=== PATIENT | female | born 1975 | race American Indian/Alaskan Native ===

== ENCOUNTER 2018-02-08 16:20 | Inpatient (IN) | payer MEDICAID, OTHER, SELFPAY ==
[2018-02-08] VITALS (9 sets, daily range): BP systolic 90–112; BP diastolic 55–88; PULSE 110–126; RESP 16–22; TEMP 36.9–37.3; O2SAT 98–99; BMI 18.6
[2018-02-08 16:46] LABS: Add Manual Diff / Slide Review NO; Basophils Percent Auto 0.7 % (0-2); Eosinophils Percent Auto 2.1 % (2-4); Hematocrit 48.2 % (36-46); Hemoglobin 15.9 g/dL (12.0-16.0); Lymphocytes Percent Auto 20.8 % (25-40); Mean Corpuscular HGB Conc 32.9 % (30-36); Mean Corpuscular Hemoglobin 28.7 PG (26-34); Mean Corpuscular Volume 87.2 fL (80-100); Neutrophils Absolute Auto 11400 /uL (3000-5900); Neutrophils Percent Auto 71.4 % (50-75); Platelet Count 548 X10^3/uL (150-400); Red Blood Cell Count 5.53 X10^6/uL (4.0-5.2); Red Cell Distribution Width 14.8 % (11.6-14.8)
[2018-02-08 16:52] LABS: INR 0.9 (0.9-1.3); Prothrombin Time 9.7 SECONDS (10.1-12.7)
[2018-02-08] MEDS: SODIUM CHLORIDE 0.9% 1,000 ML 1000 ML IV ×2 (16:52→17:59)
[2018-02-08 16:56] LABS: Alanine Aminotransferase 35 IU/L (9-52); Albumin 3.2 g/dL (3.5-5.0); Albumin Globulin Ratio 1.3 (1.0-2.8); Alkaline Phosphatase 94 U/L (38-126); Aspartate Aminotransferase 28 IU/L (14-36); Bilirubin Total 0.4 mg/dL (0.2-1.3); Calcium 7.8 mg/dL (8.4-10.2); Estimated Glomerular Filt Rate > 60.0 mL/min (>60); Globulin 2.5 g/dL (1.7-4.1); HEMOLYSIS 28 (0-50); Potassium 3.9 mmol/L (3.4-5.1); Sodium 133 mmol/L (137-145); Total Protein 5.7 g/dL (6.3-8.2)
[2018-02-08 17:00] LABS: Ketones (Beta-Hydroxybutyrate) 0.17 mmol/L (<0.27)
[2018-02-08 17:02] LABS: Lipase < 10 U/L (23-300)
[2018-02-08 17:05] LABS: Glucose 522 mg/dL (70-100)
--- NOTE | 2018-02-08 17:23 | ED.ABDPAIN ---
HPI - Abdominal Pain <Yareli De La Torre MD - Last Filed: 02/09/18 07:29> General Chief Complaint: Abdominal Pain Stated Complaint: Abd cramping,possible DKA Time Seen by Provider: 02/08/18 16:22 History of Present Illness HPI narrative: 42 F type I DM sent from [facility] for hyperglycemia. Patient was seen for diarrhea, nausea, and vomiting for last few days and found to be reading High on glucometer. Patient reports no fever/chills, and reports signficant non bloody diarrhea. Reports abdominal cramping. No dysuria. Patient is frequently seen in ED. Related Data Home Medications Medication Instructions Recorded Confirmed omeprazole 20 mg PO QDAY #0 10/09/12 02/08/18 bupropion HCl [Wellbutrin SR] 150 mg PO BID #0 09/13/16 02/08/18 ondansetron [Zofran ODT] 4 mg SUBLINGUAL Q4HP PRN 02/08/18 02/08/18 Previous Rx's Medication Instructions Recorded insulin glargine [Lantus U-100 35 u SQ QDAY #30 d 08/21/17 Insulin] insulin glargine [Lantus U-] 30 unit SUBCUT DAILY #10 ml 01/24/18 Allergies Allergy/AdvReac Type Severity Reaction Status Date / Time sulfasalazine [SULFASALAZINE] Allergy Mild PANCREATITI Verified 02/08/18 16:35 S trazodone AdvReac Intermediate HEART Verified 02/08/18 16:35 PALPITATIONS Review of Systems <Yareli De La Torre MD - Last Filed: 02/09/18 07:29> Constitutional Denies chills, Denies fever(s), Denies lethargy and Denies weakness Cardiovascular Denies chest pain, Denies irregular heart rhythm, Denies lightheadedness, Denies palpitations, Denies dyspnea, Denies dyspnea on exertion and Denies orthopnea Respiratory Denies cough, Denies dyspnea, Denies dyspnea on exertion and Denies wheezing Gastrointestinal Gastrointestinal: Reports bloating, Reports cramping, Reports diarrhea, Reports nausea and Reports vomiting Genitourinary Denies hematuria, Denies flank pain, Denies urinary incontinence and Denies urinary urgency Neurologic Denies weakness Endocrine Reports polyuria and Denies palpitations Allergic/Immunologic Denies wheezing Exam <Yareli De La Torre MD - Last Filed: 02/09/18 07:29> Initial Vital Signs Initial Vital Signs: Vital Signs Temperature 98.6 F 02/08/18 16:32 Pulse Rate 125 H 02/08/18 16:32 Respiratory Rate 19 02/08/18 16:32 Blood Pressure 103/88 H 02/08/18 16:32 Pulse Oximetry 99 02/08/18 16:32 Const General: cooperative and well developed Nutritional Appearance: well nourished Orientation: alert, awake, oriented x3 and not confused Chest Chest: normal inspection of the chest Resp Effort & Inspection: normal respiratory effort, able to speak in complete sentences, no respiratory distress and no use of accessory muscles Auscultation: clear to auscultation bilaterally, no rales, no rhonchi and no wheezes Cardio Rate: regular rate Rhythm: regular rhythm Heart Sounds: no click, no gallops, no murmurs and no rubs Pulses: normal peripheral pulses GI Inspection: distended Palpation: soft, no hepatosplenomegaly, guarding, No pulsatile mass and tender Auscultation: abnormal bowel sounds Skin General: no rashes or lesions noted, No jaundice and No petechiae Neuro General: alert, oriented x3, gait normal and no focal motor deficits Speech: speech normal Extrem General: full ROM, no clubbing, cyanosis or edema, no pedal edema and no calf tenderness <Stephane Borden DO - Last Filed: 02/08/18 19:48> Initial Vital Signs Initial Vital Signs: Vital Signs Temperature 98.6 F 02/08/18 16:32 Pulse Rate 125 H 02/08/18 16:32 Respiratory Rate 19 02/08/18 16:32 Blood Pressure 103/88 H 02/08/18 16:32 Pulse Oximetry 99 02/08/18 16:32 Course <Yareli De La Torre MD - Last Filed: 02/09/18 07:29> Orders Ordered: ED Orders 02/09/18 04:30 Urinalysis and Microscopic Stat 02/09/18 04:40 Urine Culture Stat Dextrose (D50w) 25 gm IV PRN PRN; Protocol PRN Reason: Hypoglycemia Hydromorphone HCl (Dilaudid) 0.5 mg IV Q2H PRN PRN Reason: Pain, Severe Last Admin: 02/09/18 05:40 Dose: 0.5 mg Admin: 02/09/18 01:52 Dose: 0.5 mg Admin: 02/08/18 22:57 Dose: 0.5 mg Hydromorphone HCl (Dilaudid) 1 mg IV Q2HR PRN PRN Reason: Pain, Moderate Sodium Chloride (Normal Saline 0.45%) 1,000 mls @ 85 mls/hr IV CONT JOSE ANTONIO Last Admin: 02/08/18 22:57 Dose: 85 mls/hr Piperacillin/Tazobactam/Dextrose (Zosyn) 3.375 gm in 50 mls @ 100 mls/hr IV Q6H [facility] Last Infusion: 02/09/18 03:05 Dose: 0 mls/hr Admin: 02/09/18 02:16 Dose: 100 mls/hr Insulin Aspart (Novolog Flexpen) 0 unit SUBCUT ACHS [facility]; Protocol Ondansetron HCl (Zofran) 4 mg IV Q4HR PRN PRN Reason: Nausea And Vomiting Discontinued Medications Hydromorphone HCl (Dilaudid) 1 mg IV NOW ONE Stop: 02/08/18 19:42 Last Admin: 02/08/18 20:11 Dose: Hydromorphone HCl (Dilaudid) 1 mg IV NOW JOSE ANTONIO Stop: 02/08/18 20:16 Last Admin: 02/08/18 22:17 Dose: Admin: 02/08/18 20:11 Dose: 1 mg Sodium Chloride (Normal Saline 0.9%) 1,000 mls @ 1,000 mls/hr IV BOLUS ONE Stop: 02/08/18 17:18 Last Infusion: 02/08/18 17:59 Dose: 0 mls/hr Admin: 02/08/18 16:52 Dose: 1,000 mls/hr Sodium Chloride (Normal Saline 0.9%) 1,000 mls @ 1,000 mls/hr IV BOLUS ONE Stop: 02/08/18 17:31 Last Infusion: 02/08/18 20:48 Dose: 0 mls/hr Admin: 02/08/18 17:59 Dose: 1,000 mls/hr Sodium Chloride (Normal Saline 0.9%) 1,000 mls @ 1,000 mls/hr IV BOLUS ONE Stop: 02/08/18 18:18 Last Admin: 02/08/18 22:17 Dose: Piperacillin/Tazobactam/Dextrose (Zosyn) 4.5 gm in 100 mls @ 200 mls/hr IV NOW ONE Stop: 02/08/18 18:35 Last Infusion: 02/08/18 20:09 Dose: 0 mls/hr Admin: 02/08/18 18:33 Dose: 200 mls/hr Insulin Human Regular (Humulin R) 12 unit SUBCUT NOW ONE Stop: 02/08/18 17:19 Last Admin: 02/08/18 17:57 Dose: 12 unit Vital Signs - 8 hr 02/08/18 23:35 02/09/18 06:15 Temperature 99.1 F 97.8 F Pulse Rate 115 H 88 Respiratory Rate 18 18 Blood Pressure 102/55 L 92/63 <Stephane Borden DO - Last Filed: 02/08/18 19:48> Orders Ordered: ED Orders 02/09/18 04:30 Urinalysis and Microscopic Stat 02/09/18 04:40 Urine Culture Stat Dextrose (D50w) 25 gm IV PRN PRN; Protocol PRN Reason: Hypoglycemia Hydromorphone HCl (Dilaudid) 0.5 mg IV Q2H PRN PRN Reason: Pain, Severe Last Admin: 02/09/18 05:40 Dose: 0.5 mg Admin: 02/09/18 01:52 Dose: 0.5 mg Admin: 02/08/18 22:57 Dose: 0.5 mg Hydromorphone HCl (Dilaudid) 1 mg IV Q2HR PRN PRN Reason: Pain, Moderate Sodium Chloride (Normal Saline 0.45%) 1,000 mls @ 85 mls/hr IV CONT JOSE ANTONIO Last Admin: 02/08/18 22:57 Dose: 85 mls/hr Piperacillin/Tazobactam/Dextrose (Zosyn) 3.375 gm in 50 mls @ 100 mls/hr IV Q6H JOSE ANTONIO Last Infusion: 02/09/18 03:05 Dose: 0 mls/hr Admin: 02/09/18 02:16 Dose: 100 mls/hr Insulin Aspart (Novolog Flexpen) 0 unit SUBCUT ACHS JOSE ANTONIO; Protocol Ondansetron HCl (Zofran) 4 mg IV Q4HR PRN PRN Reason: Nausea And Vomiting Discontinued Medications Hydromorphone HCl (Dilaudid) 1 mg IV NOW ONE Stop: 02/08/18 19:42 Last Admin: 02/08/18 20:11 Dose: Hydromorphone HCl (Dilaudid) 1 mg IV NOW JOSE ANTONIO Stop: 02/08/18 20:16 Last Admin: 02/08/18 22:17 Dose: Admin: 02/08/18 20:11 Dose: 1 mg Sodium Chloride (Normal Saline 0.9%) 1,000 mls @ 1,000 mls/hr IV BOLUS ONE Stop: 02/08/18 17:18 Last Infusion: 02/08/18 17:59 Dose: 0 mls/hr Admin: 02/08/18 16:52 Dose: 1,000 mls/hr Sodium Chloride (Normal Saline 0.9%) 1,000 mls @ 1,000 mls/hr IV BOLUS ONE Stop: 02/08/18 17:31 Last Infusion: 02/08/18 20:48 Dose: 0 mls/hr Admin: 02/08/18 17:59 Dose: 1,000 mls/hr Sodium Chloride (Normal Saline 0.9%) 1,000 mls @ 1,000 mls/hr IV BOLUS ONE Stop: 02/08/18 18:18 Last Admin: 02/08/18 22:17 Dose: Piperacillin/Tazobactam/Dextrose (Zosyn) 4.5 gm in 100 mls @ 200 mls/hr IV NOW ONE Stop: 02/08/18 18:35 Last Infusion: 02/08/18 20:09 Dose: 0 mls/hr Admin: 02/08/18 18:33 Dose: 200 mls/hr Insulin Human Regular (Humulin R) 12 unit SUBCUT NOW ONE Stop: 02/08/18 17:19 Last Admin: 02/08/18 17:57 Dose: 12 unit Consultations Consultation #1: Dr. Grossman (Gen. Surg) consulted regarding CT findings and will follow as needed but recommends medical admission and antibiotics. Time: 18:22 Consultation #2: Dr. Tan (Hospitalist) is happy to accept patient on his service Time: 19:47 Vital Signs - 8 hr 02/08/18 23:35 02/09/18 06:15 Temperature 99.1 F 97.8 F Pulse Rate 115 H 88 Respiratory Rate 18 18 Blood Pressure 102/55 L 92/63 MDM - Abdominal Pain <Kirpal Wil, MD - Last Filed: 02/09/18 07:29> Differential Diagnosis Differential diagnosis: Likely abdominal pain, diverticulitis, gastroenteritis, pancreatitis and small bowel obstruction Medical Records Attestation: I reviewed the patient's medical records. Lab Data Attestation: I reviewed the patient's lab results. Result diagrams: 02/08/18 16:00 02/08/18 16:00 Lab Results 02/08/18 02/08/18 02/08/18 Range/Units 16:00 16:00 16:00 WBC 16.0 H (4.5-11.0) X10^3/uL RBC 5.53 H (4.0-5.2) X10^6/uL Hgb 15.9 (12.0-16.0) g/dL Hct 48.2 H (36-46) % MCV 87.2 (80-100) fL MCH 28.7 (26-34) PG MCHC 32.9 (30-36) % RDW 14.8 (11.6-14.8) % Plt Count 548 H (150-400) X10^3/uL Neut % (Auto) 71.4 (50-75) % Lymph % (Auto) 20.8 L (25-40) % [place] % (Auto) 5.0 (3-14) % Eos % (Auto) 2.1 (2-4) % Baso % (Auto) 0.7 (0-2) % Neut # (Auto) 52797 H (2846-6233) /uL PT 9.7 L (10.1-12.7) SECONDS INR 0.9 (0.9-1.3) VBG pH VBG pCO2 VBG pO2 VBG HCO3 VBG Total CO2 VBG O2 Saturation VBG Base Excess Sodium 133 L (137-145) mmol/L Potassium 3.9 (3.4-5.1) mmol/L Chloride 99.0 (98-107) mmol/L Carbon Dioxide 21.0 L (22-32) mmol/L BUN 9.0 (7-17) mg/dL Creatinine 0.60 (0.52-1.04) mg/dL Estimated GFR > 60.0 (>60) mL/min BUN/Creatinine Ratio 15.0 (6-22) Glucose 522 H* (70-100) mg/dL Lactate (0.7-2.1) mmol/L Calcium 7.8 L (8.4-10.2) mg/dL Total Bilirubin 0.4 (0.2-1.3) mg/dL AST 28 (14-36) IU/L ALT 35 (9-52) IU/L Alkaline Phosphatase 94 (38-126) U/L Total Protein 5.7 L (6.3-8.2) g/dL Albumin 3.2 L (3.5-5.0) g/dL Globulin 2.5 (1.7-4.1) g/dL Albumin/Globulin Ratio 1.3 (1.0-2.8) Lipase < 10 L (23-300) U/L Procalcitonin (<0.5) ng/mL Urine Color Urine Appearance Urine pH (4.5-8.0) Ur Specific Pablo (1.000-1.035) Urine Protein (Negative) Urine Glucose (UA) (Negative) g/dL Urine Ketones (NEGATIVE) Urine Occult Blood (Negative) Urine Nitrate (NEGATIVE) Urine Bilirubin (NEGATIVE) Urine Urobilinogen (0.2) E.U./dL Ur Leukocyte Esterase (NEGATIVE) Urine RBC (0-5/HPF) Urine WBC (0-5/HPF) Ur Squamous Epith Cells Amorphous Sediment Urine Bacteria (None) Urine Yeast (None) Ur Culture Indicated? Micro UA Comment Ketones 0.17 (<0.27) mmol/L 02/08/18 02/08/18 02/08/18 Range/Units 16:19 16:35 18:20 WBC (4.5-11.0) X10^3/uL RBC (4.0-5.2) X10^6/uL Hgb (12.0-16.0) g/dL Hct (36-46) % MCV (80-100) fL MCH (26-34) PG MCHC (30-36) % RDW (11.6-14.8) % Plt Count (150-400) X10^3/uL Neut % (Auto) (50-75) % Lymph % (Auto) (25-40) % [place] % (Auto) (3-14) % Eos % (Auto) (2-4) % Baso % (Auto) (0-2) % Neut # (Auto) (0752-6519) /uL PT (10.1-12.7) SECONDS INR (0.9-1.3) VBG pH Cancelled 7.51 H VBG pCO2 Cancelled VBG pO2 Cancelled VBG HCO3 Cancelled VBG Total CO2 Cancelled VBG O2 Saturation Cancelled VBG Base Excess Cancelled Sodium (137-145) mmol/L Potassium (3.4-5.1) mmol/L Chloride (98-107) mmol/L Carbon Dioxide (22-32) mmol/L BUN (7-17) mg/dL Creatinine (0.52-1.04) mg/dL Estimated GFR (>60) mL/min BUN/Creatinine Ratio (6-22) Glucose (70-100) mg/dL Lactate 1.6 (0.7-2.1) mmol/L Calcium (8.4-10.2) mg/dL Total Bilirubin (0.2-1.3) mg/dL AST (14-36) IU/L ALT (9-52) IU/L Alkaline Phosphatase (38-126) U/L Total Protein (6.3-8.2) g/dL Albumin (3.5-5.0) g/dL Globulin (1.7-4.1) g/dL Albumin/Globulin Ratio (1.0-2.8) Lipase (23-300) U/L Procalcitonin (<0.5) ng/mL Urine Color Urine Appearance Urine pH (4.5-8.0) Ur Specific Pablo (1.000-1.035) Urine Protein (Negative) Urine Glucose (UA) (Negative) g/dL Urine Ketones (NEGATIVE) Urine Occult Blood (Negative) Urine Nitrate (NEGATIVE) Urine Bilirubin (NEGATIVE) Urine Urobilinogen (0.2) E.U./dL Ur Leukocyte Esterase (NEGATIVE) Urine RBC (0-5/HPF) Urine WBC (0-5/HPF) Ur Squamous Epith Cells Amorphous Sediment Urine Bacteria (None) Urine Yeast (None) Ur Culture Indicated? Micro UA Comment Ketones (<0.27) mmol/L 02/08/18 02/09/18 Range/Units 18:42 04:40 WBC (4.5-11.0) X10^3/uL RBC (4.0-5.2) X10^6/uL Hgb (12.0-16.0) g/dL Hct (36-46) % MCV (80-100) fL MCH (26-34) PG MCHC (30-36) % RDW (11.6-14.8) % Plt Count (150-400) X10^3/uL Neut % (Auto) (50-75) % Lymph % (Auto) (25-40) % [place] % (Auto) (3-14) % Eos % (Auto) (2-4) % Baso % (Auto) (0-2) % Neut # (Auto) (3467-0137) /uL PT (10.1-12.7) SECONDS INR (0.9-1.3) VBG pH VBG pCO2 VBG pO2 VBG HCO3 VBG Total CO2 VBG O2 Saturation VBG Base Excess Sodium (137-145) mmol/L Potassium (3.4-5.1) mmol/L Chloride (98-107) mmol/L Carbon Dioxide (22-32) mmol/L BUN (7-17) mg/dL Creatinine (0.52-1.04) mg/dL Estimated GFR (>60) mL/min BUN/Creatinine Ratio (6-22) Glucose (70-100) mg/dL Lactate (0.7-2.1) mmol/L Calcium (8.4-10.2) mg/dL Total Bilirubin (0.2-1.3) mg/dL AST (14-36) IU/L ALT (9-52) IU/L Alkaline Phosphatase (38-126) U/L Total Protein (6.3-8.2) g/dL Albumin (3.5-5.0) g/dL Globulin (1.7-4.1) g/dL Albumin/Globulin Ratio (1.0-2.8) Lipase (23-300) U/L Procalcitonin < 0.05 (<0.5) ng/mL Urine Color Yellow Urine Appearance Cloudy Urine pH 6.5 (4.5-8.0) Ur Specific Pablo <=1.005 (1.000-1.035) Urine Protein Negative (Negative) Urine Glucose (UA) 2+ H (Negative) g/dL Urine Ketones Negative (NEGATIVE) Urine Occult Blood Trace-intact (Negative) Urine Nitrate Negative (NEGATIVE) Urine Bilirubin Negative (NEGATIVE) Urine Urobilinogen 0.2 (0.2) E.U./dL Ur Leukocyte Esterase Trace H (NEGATIVE) Urine RBC 0-1/hpf (0-5/HPF) Urine WBC 1-5/hpf (0-5/HPF) Ur Squamous Epith Cells 0-1 /hpf Amorphous Sediment 1+ Urine Bacteria Many (>30) H (None) Urine Yeast 0-1/hpf (None) Ur Culture Indicated? Specimen cultured Micro UA Comment Not Reportable Ketones (<0.27) mmol/L ECG Data Interpretation: Sinus Tachycardia HR [address] elevation No Tw abnormality Normal intervals. MDM Narrative Medical decision making narrative: Patient with hyperglycemia, alkakosis - NO DKA. Treat with fluid boluses and Subcutaneous insulin 12units Other lab abnormalities may be hemoconcentration, but in setting of bowel infection; may require antibiotics. Pending CT abd/pelvis w/contrast. After CT reviewed; patient has significant terminal ileitis with free fluid in the abdomen. Zosyn IV started. Paged Dr. Grossman, Gen surg. Case discussed and she recommended medicine admit for IV abx unless lactate returns high; then she would like a return call. Case discussed with Dr. Borden. Will follow up remaining labs, and final disposition. <Stephane Borden, - Last Filed: 02/08/18 19:48> Medical Records Attestation: I reviewed the patient's medical records. Lab Data Attestation: I reviewed the patient's lab results. Lab Results 02/08/18 02/08/18 02/08/18 Range/Units 16:00 16:00 16:00 WBC 16.0 H (4.5-11.0) X10^3/uL RBC 5.53 H (4.0-5.2) X10^6/uL Hgb 15.9 (12.0-16.0) g/dL Hct 48.2 H (36-46) % MCV 87.2 (80-100) fL MCH 28.7 (26-34) PG MCHC 32.9 (30-36) % RDW 14.8 (11.6-14.8) % Plt Count 548 H (150-400) X10^3/uL Neut % (Auto) 71.4 (50-75) % Lymph % (Auto) 20.8 L (25-40) % [place] % (Auto) 5.0 (3-14) % Eos % (Auto) 2.1 (2-4) % Baso % (Auto) 0.7 (0-2) % Neut # (Auto) 59389 H (4479-3220) /uL PT 9.7 L (10.1-12.7) SECONDS INR 0.9 (0.9-1.3) VBG pH VBG pCO2 VBG pO2 VBG HCO3 VBG Total CO2 VBG O2 Saturation VBG Base Excess Sodium 133 L (137-145) mmol/L Potassium 3.9 (3.4-5.1) mmol/L Chloride 99.0 (98-107) mmol/L Carbon Dioxide 21.0 L (22-32) mmol/L BUN 9.0 (7-17) mg/dL Creatinine 0.60 (0.52-1.04) mg/dL Estimated GFR > 60.0 (>60) mL/min BUN/Creatinine Ratio 15.0 (6-22) Glucose 522 H* (70-100) mg/dL Lactate (0.7-2.1) mmol/L Calcium 7.8 L (8.4-10.2) mg/dL Total Bilirubin 0.4 (0.2-1.3) mg/dL AST 28 (14-36) IU/L ALT 35 (9-52) IU/L Alkaline Phosphatase 94 (38-126) U/L Total Protein 5.7 L (6.3-8.2) g/dL Albumin 3.2 L (3.5-5.0) g/dL Globulin 2.5 (1.7-4.1) g/dL Albumin/Globulin Ratio 1.3 (1.0-2.8) Lipase < 10 L (23-300) U/L Procalcitonin (<0.5) ng/mL Urine Color Urine Appearance Urine pH (4.5-8.0) Ur Specific Pablo (1.000-1.035) Urine Protein (Negative) Urine Glucose (UA) (Negative) g/dL Urine Ketones (NEGATIVE) Urine Occult Blood (Negative) Urine Nitrate (NEGATIVE) Urine Bilirubin (NEGATIVE) Urine Urobilinogen (0.2) E.U./dL Ur Leukocyte Esterase (NEGATIVE) Urine RBC (0-5/HPF) Urine WBC (0-5/HPF) Ur Squamous Epith Cells Amorphous Sediment Urine Bacteria (None) Urine Yeast (None) Ur Culture Indicated? Micro UA Comment Ketones 0.17 (<0.27) mmol/L 02/08/18 02/08/18 02/08/18 Range/Units 16:19 16:35 18:20 WBC (4.5-11.0) X10^3/uL RBC (4.0-5.2) X10^6/uL Hgb (12.0-16.0) g/dL Hct (36-46) % MCV (80-100) fL MCH (26-34) PG MCHC (30-36) % RDW (11.6-14.8) % Plt Count (150-400) X10^3/uL Neut % (Auto) (50-75) % Lymph % (Auto) (25-40) % [place] % (Auto) (3-14) % Eos % (Auto) (2-4) % Baso % (Auto) (0-2) % Neut # (Auto) (9392-7324) /uL PT (10.1-12.7) SECONDS INR (0.9-1.3) VBG pH Cancelled 7.51 H VBG pCO2 Cancelled VBG pO2 Cancelled VBG HCO3 Cancelled VBG Total CO2 Cancelled VBG O2 Saturation Cancelled VBG Base Excess Cancelled Sodium (137-145) mmol/L Potassium (3.4-5.1) mmol/L Chloride (98-107) mmol/L Carbon Dioxide (22-32) mmol/L BUN (7-17) mg/dL Creatinine (0.52-1.04) mg/dL Estimated GFR (>60) mL/min BUN/Creatinine Ratio (6-22) Glucose (70-100) mg/dL Lactate 1.6 (0.7-2.1) mmol/L Calcium (8.4-10.2) mg/dL Total Bilirubin (0.2-1.3) mg/dL AST (14-36) IU/L ALT (9-52) IU/L Alkaline Phosphatase (38-126) U/L Total Protein (6.3-8.2) g/dL Albumin (3.5-5.0) g/dL Globulin (1.7-4.1) g/dL Albumin/Globulin Ratio (1.0-2.8) Lipase (23-300) U/L Procalcitonin (<0.5) ng/mL Urine Color Urine Appearance Urine pH (4.5-8.0) Ur Specific Pablo (1.000-1.035) Urine Protein (Negative) Urine Glucose (UA) (Negative) g/dL Urine Ketones (NEGATIVE) Urine Occult Blood (Negative) Urine Nitrate (NEGATIVE) Urine Bilirubin (NEGATIVE) Urine Urobilinogen (0.2) E.U./dL Ur Leukocyte Esterase (NEGATIVE) Urine RBC (0-5/HPF) Urine WBC (0-5/HPF) Ur Squamous Epith Cells Amorphous Sediment Urine Bacteria (None) Urine Yeast (None) Ur Culture Indicated? Micro UA Comment Ketones (<0.27) mmol/L 02/08/18 02/09/18 Range/Units 18:42 04:40 WBC (4.5-11.0) X10^3/uL RBC (4.0-5.2) X10^6/uL Hgb (12.0-16.0) g/dL Hct (36-46) % MCV (80-100) fL MCH (26-34) PG MCHC (30-36) % RDW (11.6-14.8) % Plt Count (150-400) X10^3/uL Neut % (Auto) (50-75) % Lymph % (Auto) (25-40) % [place] % (Auto) (3-14) % Eos % (Auto) (2-4) % Baso % (Auto) (0-2) % Neut # (Auto) (7610-2771) /uL PT (10.1-12.7) SECONDS INR (0.9-1.3) VBG pH VBG pCO2 VBG pO2 VBG HCO3 VBG Total CO2 VBG O2 Saturation VBG Base Excess Sodium (137-145) mmol/L Potassium (3.4-5.1) mmol/L Chloride (98-107) mmol/L Carbon Dioxide (22-32) mmol/L BUN (7-17) mg/dL Creatinine (0.52-1.04) mg/dL Estimated GFR (>60) mL/min BUN/Creatinine Ratio (6-22) Glucose (70-100) mg/dL Lactate (0.7-2.1) mmol/L Calcium (8.4-10.2) mg/dL Total Bilirubin (0.2-1.3) mg/dL AST (14-36) IU/L ALT (9-52) IU/L Alkaline Phosphatase (38-126) U/L Total Protein (6.3-8.2) g/dL Albumin (3.5-5.0) g/dL Globulin (1.7-4.1) g/dL Albumin/Globulin Ratio (1.0-2.8) Lipase (23-300) U/L Procalcitonin < 0.05 (<0.5) ng/mL Urine Color Yellow Urine Appearance Cloudy Urine pH 6.5 (4.5-8.0) Ur Specific Pablo <=1.005 (1.000-1.035) Urine Protein Negative (Negative) Urine Glucose (UA) 2+ H (Negative) g/dL Urine Ketones Negative (NEGATIVE) Urine Occult Blood Trace-intact (Negative) Urine Nitrate Negative (NEGATIVE) Urine Bilirubin Negative (NEGATIVE) Urine Urobilinogen 0.2 (0.2) E.U./dL Ur Leukocyte Esterase Trace H (NEGATIVE) Urine RBC 0-1/hpf (0-5/HPF) Urine WBC 1-5/hpf (0-5/HPF) Ur Squamous Epith Cells 0-1 /hpf Amorphous Sediment 1+ Urine Bacteria Many (>30) H (None) Urine Yeast 0-1/hpf (None) Ur Culture Indicated? Specimen cultured Micro UA Comment Not Reportable Ketones (<0.27) mmol/L Discharge Plan Departure Patient Disposition: Admitted As Inpatient Clinical Impression: Acute hyperglycemia, Ileitis Discharge Date/Time: 02/08/18 20:31 Interventions: ED Discharge Assessment Last Done: 02/08/18 20:29 Admit Date/Time: 02/08/18 20:14 Admit Provider: Valerio Tan
--- NOTE | 2018-02-08 17:24 | DI.CT.S_ITS ---
PROCEDURE: CT ABDOMEN PELVIS W CON INDICATIONS: Generalized abd tenderness TECHNIQUE: After the administration of oral and intravenous contrast, 5 mm thick sections acquired from the diaphragms to the symphysis. 5 mm thick coronal and sagittal reformats were performed. For radiation dose reduction, the following was used: automated exposure control, adjustment of mA and/or kV according to patient size. COMPARISON: [facility], CT, ABDOMEN/PELVIS WITH CONTRAST, 05/09/2009, 17:34. FINDINGS: Image quality: Excellent. ABDOMEN: Lung bases: There is mild dependent atelectasis bilaterally. Heart size is normal. There is mild concentric wall thickening of the visualized distal esophagus compatible with a mild esophagitis. Solid organs: No focal hepatic lesions. The gallbladder is distended without calcified gallstones or wall thickening. Biliary system is non-dilated. Spleen is normal in size and enhancement. No adrenal nodules. Kidneys demonstrate no hydronephrosis. There are multiple coarse calcifications within the pancreatic head and uncinate process with diffuse pancreatic atrophy. There is mild dilatation of the pancreatic duct in the head and uncinate process. The findings are compatible with sequela of chronic pancreatitis. Peritoneum and bowel: There is severe segmental wall thickening with submucosal edema involving the distal ileum extending through the ileocecal junction. No definite evidence of pneumatosis. There are additional segments of mild small bowel wall thickening proximally. No abnormal dilatation to suggest obstruction. There is moderate gaseous distention of the colon distally and mild segmental wall thickening in the rectum. A moderate to large amount of free fluid is demonstrated throughout the abdomen and pelvis with slight peritoneal enhancement suggestive of peritonitis. No free air. Nodes and vessels: No retroperitoneal or mesenteric adenopathy. Aorta and inferior vena cava are normal in caliber. Miscellaneous: No ventral hernias. PELVIS: Genitourinary: There is mild concentric bladder wall thickening. Miscellaneous: No inguinal hernias or adenopathy. Bones: No suspicious bony lesions. No vertebral body compression fractures. IMPRESSION: 1. Severe segmental wall thickening of the distal ileum as well as mild wall thickening in the proximal small bowel. The findings are consistent with a nonspecific enteritis which may be due to infectious etiologies such as Yersinia or inflammatory processes such as Crohn's disease. No evidence of associated bowel obstruction. The differential includes ischemic bowel but there is no evidence of pneumatosis or portal venous gas. 2. Moderate to large amount of intraperitoneal free fluid with mild peritoneal enhancement suggestive of peritonitis. 3. Moderate distention of the colon distally with mild segmental wall thickening in the rectum compatible with a mild colitis. 4. Sequelae of chronic pancreatitis atrophic appearance of the distal pancreas. Findings discussed with Dr. De La Torre on 02/08/18 at 6:05 PM. Dictated by: Terry Gomez M.D. on 02/08/2018 at 17:59 Approved by: Terry Gomez M.D. on 02/08/2018 at 18:09
[2018-02-08 17:25] LABS: pH VBG 7.51 (7.31-7.41)
[2018-02-08] MEDS: INSULIN REGULAR 100 UNIT/ML 3 ML VIAL 12 UNIT SUBCUT (17:57)
[2018-02-08] MEDS: PIPERACILLIN-TAZO 4.5 GM/100 ML FROZ.PIGGY IV (18:33)
[2018-02-08 18:37] LABS: Lactate (Lactic Acid) 1.6 mmol/L (0.7-2.1)
[2018-02-08 19:40] LABS: Procalcitonin < 0.05 ng/mL (<0.5)
[2018-02-08] MEDS: HYDROMORPHONE 0.5 MG INJ 1 MG IV (20:11)
[2018-02-08] MEDS: HYDROMORPHONE 0.5 MG INJ IV (22:57)
[2018-02-08] MEDS: SODIUM CHLORIDE 0.45% 1,000 ML 85 ML IV (22:57)
[2018-02-09] VITALS (7 sets, daily range): BP systolic 86–104; BP diastolic 58–72; PULSE 87–94; RESP 16–18; TEMP 36.2–37; O2SAT 97–99
[2018-02-09] MEDS: HYDROMORPHONE 0.5 MG INJ IV ×5 (01:52→13:06)
[2018-02-09] MEDS: PIPERACILLIN-TAZO 3.375 GM/50 ML FROZ.PIGGY IV ×3 (02:16→18:02)
[2018-02-09 04:56] LABS: Appearance Urine UA CLOUDY; Bilirubin Urine UA NEGATIVE (NEGATIVE); Color Urine UA YELLOW; Glucose Urine UA 2+ g/dL (Negative); Ketones Urine UA NEGATIVE (NEGATIVE); Leukocyte Esterase Urine UA TRACE (NEGATIVE); Nitrite Urine UA NEGATIVE (NEGATIVE); Occult Blood Urine UA TRACE-INTACT (Negative); Protein Urine UA NEGATIVE (Negative); Specific Gravity Urine UA <=1.005 (1.000-1.035); Urobilinogen Urine UA 0.2 E.U./dL (0.2); pH Urine UA 6.5 (4.5-8.0)
[2018-02-09 05:04] LABS: Amorphous Sediment Urine 1+; RBC Urine 0-1/HPF (0-5/HPF); Squamous Epithelial Cell Urine 0-1 /HPF; WBC Urine 1-5/HPF (0-5/HPF)
[2018-02-09 05:05] LABS: Bacteria Urine Many (>30)
[2018-02-09 05:06] LABS: Culture Indicated Urine Specimen Cultured
--- NOTE | 2018-02-09 05:33 | PC.NURSE ---
Pt. voided this morning 1000 ml cloudy michelle urine with specks of what appears to be fat floaters. Pt. denies dysuria. Urine specimen sent to lab for analysis.
[2018-02-09] MEDS: SODIUM CHLORIDE 0.9% 1,000 ML 150 ML IV ×2 (08:28→18:03)
--- NOTE | 2018-02-09 08:53 | PM.HP.1 ---
History of Present Illness Chief complaint: Abd cramping,possible DKA Narrative: aVlerie Garnica is a 42 year old female who presented to the [facility] last night for cramping abdominal pain and high glucose readings. She started having abdominal cramping about 3-4 days ago. She also had nausea. Her abdominal pain got worse yesterday. She rates the severity of the pain as 8 to 9/10. She described the pain as a cramping sensation. She also had diarrhea yesterday morning. Her glucose was high in the 500s yesterday. She received regular insulin 12 units at the emergency room. Abdominal CT scan showed severe thickening of distal ileum and mild wall thickening in the proximal small bowel. And mild wall thickening in the rectum. There was moderate to large amount of intraperitoneal free fluid with mild peritoneal enhancement that suggests possible peritonitis. She received 1 dose of IV Zosyn at the ER. This morning she was noticed to be hypoglycemic and hypotensive with systolic blood pressure in the 80s. She continued to have cramping abdominal pain which required IV Dilaudid for pain control. Patient History Comment: 1. Type 1 diabetes with recurrent diabetic ketoacidosis 2. Chronic pancreatitis with pseudocyst and abscess due to pancreatic divisum. ERCP on July 09, [address] [facility]. 3. Discoid lupus 4. Urinary tract infection with sepsis, April of 2015 5. Aspiration pneumonia, April of 2015 Six. Fibromyalgia with chronic pain syndrome 8. Possible mixed connective tissue disease/inflammatory arthritis Nine. Anxiety/depression 10. Seizure disorder, generalized 11. Insomnia Family & Social History Family History: Reviewed 02/08/18 by Yareli De La Torre MD Tobacco & Substance Use Smoking Status: Current every day smoker Alcohol intake: current Meds Home Medications Medication Instructions Recorded Confirmed Type omeprazole 20 mg PO QDAY #0 10/09/12 02/08/18 History bupropion HCl [Wellbutrin SR] 150 mg PO BID #0 09/13/16 02/08/18 History insulin glargine [Lantus U-100 35 u SQ QDAY #30 d 08/21/17 02/08/18 Rx Insulin] insulin glargine [Lantus U-] 30 unit SUBCUT DAILY #10 ml 01/24/18 02/08/18 Rx ondansetron [Zofran ODT] 4 mg SUBLINGUAL Q4HP PRN 02/08/18 02/08/18 History Allergies Allergy/AdvReac Type Severity Reaction Status Date / Time sulfasalazine [SULFASALAZINE] Allergy Mild PANCREATITI Verified 02/08/18 16:35 S trazodone AdvReac Intermediate HEART Verified 02/08/18 16:35 PALPITATIONS Review of Systems Constitutional Comments: No fever chills or sweats Cardiovascular Comments: No chest pain Respiratory Comments: Denies cough or shortness of breath Gastrointestinal Gastrointestinal: Reports as per HPI Genitourinary Comments: No dysuria Musculoskeletal Comments: Chronic arthralgia and myalgia Exam Vital Signs (past 8 hours): Vital Signs - 8 hr 02/09/18 06:15 02/09/18 07:40 02/09/18 07:57 Temperature 97.8 F 97.2 F L Pulse Rate 88 87 90 Respiratory Rate 18 16 Blood Pressure 92/63 86/58 L 88/60 L Pulse Oximetry 97 Pulse Oximetry 97 Oxygen Delivery Method Room Air Oxygen Flow Rate 0 Narrative Exam Narrative: GENERAL: Thin middle-aged woman in no acute distress. HEENT: Head normocephalic, atraumatic. Eyes pupils equal round NECK: Supple, no JVD, CHEST: Breath sounds equal bilaterally, no wheezes rales or rhonchi. CARDIAC: Regular rate and rhythm without murmurs, rubs or gallops. ABDOMEN: Soft, mildly distended, diffuse tenderness, more noticeable in the left lower quadrant. No guarding or rebound. EXTREMITIES: Normal range of motion, no clubbing or edema. NEUROLOGICAL: Alert and oriented; Normal muscle strength. SKIN: Warm, dry, no petechiae, no rashes or lesions. Objective Labs Result Diagrams: 02/08/18 16:00 02/08/18 16:00 Labs: Laboratory Results - last 24 hr 02/08/18 02/08/18 02/08/18 16:00 16:00 16:00 WBC 16.0 H RBC 5.53 H Hgb 15.9 Hct 48.2 H MCV 87.2 MCH 28.7 MCHC 32.9 RDW 14.8 Plt Count 548 H Neut % (Auto) 71.4 Lymph % (Auto) 20.8 L [place] % (Auto) 5.0 Eos % (Auto) 2.1 Baso % (Auto) 0.7 Neut # (Auto) 05992 H PT 9.7 L INR 0.9 VBG pH VBG pCO2 VBG pO2 VBG HCO3 VBG Total CO2 VBG O2 Saturation VBG Base Excess Sodium 133 L Potassium 3.9 Chloride 99.0 Carbon Dioxide 21.0 L BUN 9.0 Creatinine 0.60 Estimated GFR > 60.0 BUN/Creatinine Ratio 15.0 Glucose 522 H* Lactate Calcium 7.8 L Total Bilirubin 0.4 AST 28 ALT 35 Alkaline Phosphatase 94 Total Protein 5.7 L Albumin 3.2 L Globulin 2.5 Albumin/Globulin Ratio 1.3 Lipase < 10 L Procalcitonin Urine Color Urine Appearance Urine pH Ur Specific [place] Urine Protein Urine Glucose (UA) Urine Ketones Urine Occult Blood Urine Nitrate Urine Bilirubin Urine Urobilinogen Ur Leukocyte Esterase Urine RBC Urine WBC Ur Squamous Epith Cells Amorphous Sediment Urine Bacteria Urine Yeast Ur Culture Indicated? Micro UA Comment Ketones 0.17 02/08/18 02/08/18 02/08/18 16:19 16:35 18:20 WBC RBC Hgb Hct MCV MCH MCHC RDW Plt Count Neut % (Auto) Lymph % (Auto) [place] % (Auto) Eos % (Auto) Baso % (Auto) Neut # (Auto) PT INR VBG pH Cancelled 7.51 H VBG pCO2 Cancelled VBG pO2 Cancelled VBG HCO3 Cancelled VBG Total CO2 Cancelled VBG O2 Saturation Cancelled VBG Base Excess Cancelled Sodium Potassium Chloride Carbon Dioxide BUN Creatinine Estimated GFR BUN/Creatinine Ratio Glucose Lactate 1.6 Calcium Total Bilirubin AST ALT Alkaline Phosphatase Total Protein Albumin Globulin Albumin/Globulin Ratio Lipase Procalcitonin Urine Color Urine Appearance Urine pH Ur Specific [place] Urine Protein Urine Glucose (UA) Urine Ketones Urine Occult Blood Urine Nitrate Urine Bilirubin Urine Urobilinogen Ur Leukocyte Esterase Urine RBC Urine WBC Ur Squamous Epith Cells Amorphous Sediment Urine Bacteria Urine Yeast Ur Culture Indicated? Micro UA Comment Ketones 02/08/18 02/09/18 18:42 04:40 WBC RBC Hgb Hct MCV MCH MCHC RDW Plt Count Neut % (Auto) Lymph % (Auto) Centre % (Auto) Eos % (Auto) Baso % (Auto) Neut # (Auto) PT INR VBG pH VBG pCO2 VBG pO2 VBG HCO3 VBG Total CO2 VBG O2 Saturation VBG Base Excess Sodium Potassium Chloride Carbon Dioxide BUN Creatinine Estimated GFR BUN/Creatinine Ratio Glucose Lactate Calcium Total Bilirubin AST ALT Alkaline Phosphatase Total Protein Albumin Globulin Albumin/Globulin Ratio Lipase Procalcitonin < 0.05 Urine Color Yellow Urine Appearance Cloudy Urine pH 6.5 Ur Specific [place] <=1.005 Urine Protein Negative Urine Glucose (UA) 2+ H Urine Ketones Negative Urine Occult Blood Trace-intact Urine Nitrate Negative Urine Bilirubin Negative Urine Urobilinogen 0.2 Ur Leukocyte Esterase Trace H Urine RBC 0-1/hpf Urine WBC 1-5/hpf Ur Squamous Epith Cells 0-1 /hpf Amorphous Sediment 1+ Urine Bacteria Many (>30) H Urine Yeast 0-1/hpf Ur Culture Indicated? Specimen cultured Micro UA Comment Not Reportable Ketones Imaging CT scan - abdomen: Radiologist's impression: 1. Severe segmental wall thickening of the distal ileum as well as mild wall thickening in the proximal small bowel. The findings are consistent with a nonspecific enteritis which may be due to infectious etiologies such as Yersinia or inflammatory processes such as Crohn's disease. No evidence of associated bowel obstruction. The differential includes ischemic bowel but there is no evidence of pneumatosis or portal venous gas. 2. Moderate to large amount of intraperitoneal free fluid with mild peritoneal enhancement suggestive of peritonitis. 3. Moderate distention of the colon distally with mild segmental wall thickening in the rectum compatible with a mild colitis. 4. Sequelae of chronic pancreatitis atrophic appearance of the distal pancreas. Assessment & Plan Plan: Plan: 1. Abdominal pain: Abdominal CT scan suggests enteritis and colitis. We will start IV Levaquin and Flagyl. We will also consult Dr. Sun with general surgery regarding to that possibility of peritonitis. Start IV normal saline at 150 cc an hour for hemodynamics support. Start clear liquid diet. 2. Type 1 diabetes: Patient has labile glucose readings with glucose up to 500 yesterday. This morning her glucose has been low in the 50s to 70s range. We will hold Lantus insulin. Continue monitor her fingerstick glucose readings. Restart regular Lantus insulin when her glucose improves later today. Hold short-acting insulin due to lacking of oral intake. 3. Chronic pain: Restart her outpatient pain medication regimen. We will also use IV Dilaudid as needed for breakthrough pain. Quality VTE Deep Vein Thrombosis/Pulmonary Embolism Present on Admission: No
[2018-02-09] MEDS: metroNIDAZOLE 500 MG/100 ML PIGGYBACK 100 MG IV ×2 (09:01→16:52)
[2018-02-09] MEDS: PANTOPRAZOLE 20 MG TABLET PO (09:47)
[2018-02-09] MEDS: levoFLOXacin 750 MG/150 ML PIGGYBACK 100 MG IV (10:34)
[2018-02-09] MEDS: INSULIN ASPART 100 UNIT/ML INSULN PEN SUBCUT (12:27)
[2018-02-09] MEDS: INSULIN GLARGINE 100 UNIT/ML 3ML PEN 20 UNIT SUBCUT (14:29)
[2018-02-09] MEDS: HYDROMORPHONE 0.5 MG INJ 1 MG IV ×5 (14:59→22:56)
--- NOTE | 2018-02-09 15:05 | CM.DANOTE ---
DCP Assessment: Pt is a 42 year old female who lives with her cousin Hollie Portillo in [facility]. Has extended family in the area. PCP: Dr. Dee Payer: Medicaid and [facility]. Pt and Hollie lives in a home with stairs but also a ramp. She says she is functionally independent without assistive device. Neither she nor Hollie drive but cousin Katerina does and she will be the one to pick her up at d/c. According to LUTHER Farr, supportive family at bedside, pt indp. Surgery consulted today and no findings indicate need for surgical intervention. IV abx continue to infuse. DC likely back home w/family to support. Following closely. TERA Parker
--- NOTE | 2018-02-09 16:23 | PM.CN ---
History of Present Illness Date Patient Seen: 02/09/18 Time Patient Seen: 15:23 Chief complaint: Abd cramping,possible DKA Reason for consult: Abdominal pain and possible peritonitis Requesting provider: Evelyn Acevedo Narrative: Graciela is a pleasant 42-year-old lady who presented to the emergency room last evening with family reporting a 3 or 4 day history of abdominal pain. She reports that she has had subjective fever at home and just has not felt well. She also reported that her blood sugars have been running higher than normal. She admits that she does not controlled well. She and her cousin Vivi cooper and her cousin has not had similar symptoms. She denies seeing any blood in her stool but reports that her abdominal pain is gotten progressively worse. This has been associated with diarrhea and some nausea. She had a concerning CT scan in the emergency room and so I have been asked to evaluate her for possible peritonitis or surgical causes of peritonitis. 1. Type 1 diabetes with recurrent diabetic ketoacidosis 2. Chronic pancreatitis with pseudocyst and abscess due to pancreatic divisum. ERCP on July 09, 2012 at [facility]. 3. Discoid lupus 4. Urinary tract infection with sepsis, April of 2015 5. Aspiration pneumonia, April of 2015 6. Fibromyalgia with chronic pain syndrome 7. Possible mixed connective tissue disease/inflammatory arthritis 8. Anxiety/depression 9. Seizure disorder, generalized 10. Insomnia PFSH Family History Mother Diabetes mellitus Father Diabetes mellitus Social History household members: family Smoking Status: Current every day smoker alcohol intake: current Meds Home Medications Medication Instructions Recorded Confirmed Type omeprazole 20 mg PO QDAY #0 10/09/12 02/08/18 History bupropion HCl [Wellbutrin SR] 150 mg PO BID #0 09/13/16 02/08/18 History insulin glargine [Lantus U-100 35 u SQ QDAY #30 d 08/21/17 02/08/18 Rx Insulin] insulin glargine [Lantus U-] 30 unit SUBCUT DAILY #10 ml 01/24/18 02/08/18 Rx ondansetron [Zofran ODT] 4 mg SUBLINGUAL Q4HP PRN 02/08/18 02/08/18 History Allergies Allergy/AdvReac Type Severity Reaction Status Date / Time sulfasalazine [SULFASALAZINE] Allergy Mild PANCREATITI Verified 02/08/18 16:35 S trazodone AdvReac Intermediate HEART Verified 02/08/18 16:35 PALPITATIONS Review of Systems Constitutional Constitutional: Reports body ache(s), Reports chills, Reports difficulty sleeping and Reports fatigue Eyes Eyes: Denies blurry vision Cardiovascular Cardiovascular: Denies chest pain, Denies shortness of breath and Denies shortness of breath when lying down Respiratory Respiratory: Denies chest congestion, Denies cough and Denies dyspnea Gastrointestinal Gastrointestinal: Reports abdominal pain, Reports bloating, Denies coffee ground emesis, Denies constipation, Reports cramping, Reports loose stools and Reports nausea Genitourinary Genitourinary: Denies urinary frequency Musculoskeletal Musculoskeletal: Reports myalgias, Denies muscle cramps and Denies muscle weakness Endocrine Endocrine: Reports fatigue Exam Vital Signs (past 8 hours): Vital Signs - 8 hr 02/09/18 10:45 Temperature 98.6 F Pulse Rate 89 Respiratory Rate 16 Blood Pressure 95/68 Pulse Oximetry 97 Oxygen Delivery Method Room Air Oxygen Flow Rate 0 Narrative Exam Narrative: Very pleasant lady who appears significantly older than her stated age. She denies acute distress and reports that her abdominal pain is a 6 unless she moves. She does not appear to be in any distress and is watching television. Abdomen: Soft, globally tender to palpation, active bowel sounds, fluid wave is noted Objective Labs Result Diagrams: 02/08/18 16:00 02/08/18 16:00 Labs: Laboratory Results - last 24 hr 02/08/18 02/08/18 02/08/18 16:00 16:00 16:00 WBC 16.0 H RBC 5.53 H Hgb 15.9 Hct 48.2 H MCV 87.2 MCH 28.7 MCHC 32.9 RDW 14.8 Plt Count 548 H Neut % (Auto) 71.4 Lymph % (Auto) 20.8 L [place] % (Auto) 5.0 Eos % (Auto) 2.1 Baso % (Auto) 0.7 Neut # (Auto) 53139 H PT 9.7 L INR 0.9 VBG pH VBG pCO2 VBG pO2 VBG HCO3 VBG Total CO2 VBG O2 Saturation VBG Base Excess Sodium 133 L Potassium 3.9 Chloride 99.0 Carbon Dioxide 21.0 L BUN 9.0 Creatinine 0.60 Estimated GFR > 60.0 BUN/Creatinine Ratio 15.0 Glucose 522 H* Lactate Calcium 7.8 L Total Bilirubin 0.4 AST 28 ALT 35 Alkaline Phosphatase 94 Total Protein 5.7 L Albumin 3.2 L Globulin 2.5 Albumin/Globulin Ratio 1.3 Lipase < 10 L Procalcitonin Urine Color Urine Appearance Urine pH Ur Specific [place] Urine Protein Urine Glucose (UA) Urine Ketones Urine Occult Blood Urine Nitrate Urine Bilirubin Urine Urobilinogen Ur Leukocyte Esterase Urine RBC Urine WBC Ur Squamous Epith Cells Amorphous Sediment Urine Bacteria Urine Yeast Ur Culture Indicated? Micro UA Comment Ketones 0.17 02/08/18 02/08/18 02/08/18 16:19 16:35 18:20 WBC RBC Hgb Hct MCV MCH MCHC RDW Plt Count Neut % (Auto) Lymph % (Auto) [place] % (Auto) Eos % (Auto) Baso % (Auto) Neut # (Auto) PT INR VBG pH Cancelled 7.51 H VBG pCO2 Cancelled VBG pO2 Cancelled VBG HCO3 Cancelled VBG Total CO2 Cancelled VBG O2 Saturation Cancelled VBG Base Excess Cancelled Sodium Potassium Chloride Carbon Dioxide BUN Creatinine Estimated GFR BUN/Creatinine Ratio Glucose Lactate 1.6 Calcium Total Bilirubin AST ALT Alkaline Phosphatase Total Protein Albumin Globulin Albumin/Globulin Ratio Lipase Procalcitonin Urine Color Urine Appearance Urine pH Ur Specific [place] Urine Protein Urine Glucose (UA) Urine Ketones Urine Occult Blood Urine Nitrate Urine Bilirubin Urine Urobilinogen Ur Leukocyte Esterase Urine RBC Urine WBC Ur Squamous Epith Cells Amorphous Sediment Urine Bacteria Urine Yeast Ur Culture Indicated? Micro UA Comment Ketones 02/08/18 02/09/18 18:42 04:40 WBC RBC Hgb Hct MCV MCH MCHC RDW Plt Count Neut % (Auto) Lymph % (Auto) [place] % (Auto) Eos % (Auto) Baso % (Auto) Neut # (Auto) PT INR VBG pH VBG pCO2 VBG pO2 VBG HCO3 VBG Total CO2 VBG O2 Saturation VBG Base Excess Sodium Potassium Chloride Carbon Dioxide BUN Creatinine Estimated GFR BUN/Creatinine Ratio Glucose Lactate Calcium Total Bilirubin AST ALT Alkaline Phosphatase Total Protein Albumin Globulin Albumin/Globulin Ratio Lipase Procalcitonin < 0.05 Urine Color Yellow Urine Appearance Cloudy Urine pH 6.5 Ur Specific [place] <=1.005 Urine Protein Negative Urine Glucose (UA) 2+ H Urine Ketones Negative Urine Occult Blood Trace-intact Urine Nitrate Negative Urine Bilirubin Negative Urine Urobilinogen 0.2 Ur Leukocyte Esterase Trace H Urine RBC 0-1/hpf Urine WBC 1-5/hpf Ur Squamous Epith Cells 0-1 /hpf Amorphous Sediment 1+ Urine Bacteria Many (>30) H Urine Yeast 0-1/hpf Ur Culture Indicated? Specimen cultured Micro UA Comment Not Reportable Ketones [address] [address] [address] Scan Report Signed Patient: Valerie Garnica I MR#: [id number] : 1975 Acct:[id number] Age/Sex: 42 / F Date of Service: 02/08/18 Loc: ED Accession Number: [id number] Procedure: CT abdomen pelvis w con Ordering Provider: Yareli De La Torre M.D. PROCEDURE: CT ABDOMEN PELVIS W CON INDICATIONS: Generalized abd tenderness TECHNIQUE: After the administration of oral and intravenous contrast, 5 mm thick sections acquired from the diaphragms to the symphysis. 5 mm thick coronal and sagittal reformats were performed. For radiation dose reduction, the following was used: automated exposure control, adjustment of mA and/or kV according to patient size. COMPARISON: [facility], CT, ABDOMEN/PELVIS WITH CONTRAST, 05/09/2009, 17:34. FINDINGS: Image quality: Excellent. ABDOMEN: Lung bases: There is mild dependent atelectasis bilaterally. Heart size is normal. There is mild concentric wall thickening of the visualized distal esophagus compatible with a mild esophagitis. Solid organs: No focal hepatic lesions. The gallbladder is distended without calcified gallstones or wall thickening. Biliary system is non-dilated. Spleen is normal in size and enhancement. No adrenal nodules. Kidneys demonstrate no hydronephrosis. There are multiple coarse calcifications within the pancreatic head and uncinate process with diffuse pancreatic atrophy. There is mild dilatation of the pancreatic duct in the head and uncinate process. The findings are compatible with sequela of chronic pancreatitis. Peritoneum and bowel: There is severe segmental wall thickening with submucosal edema involving the distal ileum extending through the ileocecal junction. No definite evidence of pneumatosis. There are additional segments of mild small bowel wall thickening proximally. No abnormal dilatation to suggest obstruction. There is moderate gaseous distention of the colon distally and mild segmental wall thickening in the rectum. A moderate to large amount of free fluid is demonstrated throughout the abdomen and pelvis with slight peritoneal enhancement suggestive of peritonitis. No free air. Nodes and vessels: No retroperitoneal or mesenteric adenopathy. Aorta and inferior vena cava are normal in caliber. Miscellaneous: No ventral hernias. PELVIS: Genitourinary: There is mild concentric bladder wall thickening. Miscellaneous: No inguinal hernias or adenopathy. Bones: No suspicious bony lesions. No vertebral body compression fractures. IMPRESSION: 1. Severe segmental wall thickening of the distal ileum as well as mild wall thickening in the proximal small bowel. The findings are consistent with a nonspecific enteritis which may be due to infectious etiologies such as Yersinia or inflammatory processes such as Crohn's disease. No evidence of associated bowel obstruction. The differential includes ischemic bowel but there is no evidence of pneumatosis or portal venous gas. 2. Moderate to large amount of intraperitoneal free fluid with mild peritoneal enhancement suggestive of peritonitis. 3. Moderate distention of the colon distally with mild segmental wall thickening in the rectum compatible with a mild colitis. 4. Sequelae of chronic pancreatitis atrophic appearance of the distal pancreas. Findings discussed with Dr. De La Torre on 02/08/18 at 6:05 PM. Dictated by: Terry Gomez M.D. on 02/08/2018 at 17:59 Approved by: Terry Gomez M.D. on 02/08/2018 at 18:09 Assessment & Plan Plan: Plan: Very pleasant and unfortunate 42-year-old lady with clinical and radiographic evidence of enteritis and colitis. There is no current indication for emergent surgical intervention. I would recommend a change of antibiotics to Zosyn or Primaxin due to the risk of C diff associated diarrhea with Levaquin
--- NOTE | 2018-02-09 16:35 | P.CONS_ITS ---
History of Present Illness Date Patient Seen: 02/09/18 Time Patient Seen: 15:23 Chief complaint: Abd cramping,possible DKA Reason for consult: Abdominal pain and possible peritonitis Requesting provider: Evelyn Acevedo Narrative: Graciela is a pleasant 42-year-old lady who presented to the emergency room last evening with family reporting a 3 or 4 day history of abdominal pain. She reports that she has had subjective fever at home and just has not felt well. She also reported that her blood sugars have been running higher than normal. She admits that she does not controlled well. She and her cousin Vivi cooper and her cousin has not had similar symptoms. She denies seeing any blood in her stool but reports that her abdominal pain is gotten progressively worse. This has been associated with diarrhea and some nausea. She had a concerning CT scan in the emergency room and so I have been asked to evaluate her for possible peritonitis or surgical causes of peritonitis. 1. Type 1 diabetes with recurrent diabetic ketoacidosis 2. Chronic pancreatitis with pseudocyst and abscess due to pancreatic divisum. ERCP on July 09, 2012 at [facility]. 3. Discoid lupus 4. Urinary tract infection with sepsis, April of 2015 5. Aspiration pneumonia, April of 2015 6. Fibromyalgia with chronic pain syndrome 7. Possible mixed connective tissue disease/inflammatory arthritis 8. Anxiety/depression 9. Seizure disorder, generalized 10. Insomnia PFSH Family History Mother Diabetes mellitus Father Diabetes mellitus Social History household members: family Smoking Status: Current every day smoker alcohol intake: current Meds Home Medications Medication Instructions Recorded Confirmed Type omeprazole 20 mg PO QDAY #0 10/09/12 02/08/18 History bupropion HCl [Wellbutrin SR] 150 mg PO BID #0 09/13/16 02/08/18 History insulin glargine [Lantus U-100 35 u SQ QDAY #30 d 08/21/17 02/08/18 Rx Insulin] insulin glargine [Lantus U-] 30 unit SUBCUT DAILY #10 ml 01/24/18 02/08/18 Rx ondansetron [Zofran ODT] 4 mg SUBLINGUAL Q4HP PRN 02/08/18 02/08/18 History Allergies Allergy/AdvReac Type Severity Reaction Status Date / Time sulfasalazine [SULFASALAZINE] Allergy Mild PANCREATITI Verified 02/08/18 16:35 S trazodone AdvReac Intermediate HEART Verified 02/08/18 16:35 PALPITATIONS Review of Systems Constitutional Constitutional: Reports body ache(s), Reports chills, Reports difficulty sleeping and Reports fatigue Eyes Eyes: Denies blurry vision Cardiovascular Cardiovascular: Denies chest pain, Denies shortness of breath and Denies shortness of breath when lying down Respiratory Respiratory: Denies chest congestion, Denies cough and Denies dyspnea Gastrointestinal Gastrointestinal: Reports abdominal pain, Reports bloating, Denies coffee ground emesis, Denies constipation, Reports cramping, Reports loose stools and Reports nausea Genitourinary Genitourinary: Denies urinary frequency Musculoskeletal Musculoskeletal: Reports myalgias, Denies muscle cramps and Denies muscle weakness Endocrine Endocrine: Reports fatigue Exam Vital Signs (past 8 hours): Vital Signs - 8 hr 3 02/09/18 10:45 Temperature 98.6 F Pulse Rate 89 Respiratory Rate 16 Blood Pressure 95/68 Pulse Oximetry 97 Oxygen Delivery Method Room Air Oxygen Flow Rate 0 Narrative Exam Narrative: Very pleasant lady who appears significantly older than her stated age. She denies acute distress and reports that her abdominal pain is a 6 unless she moves. She does not appear to be in any distress and is watching television. Abdomen: Soft, globally tender to palpation, active bowel sounds, fluid wave is noted Objective Labs Result Diagrams: 02/08/18 16:00 02/08/18 16:00 Labs: Laboratory Results - last 24 hr 02/08/18 02/08/18 02/08/18 16:00 16:00 16:00 WBC 16.0 H RBC 5.53 H Hgb 15.9 Hct 48.2 H MCV 87.2 MCH 28.7 MCHC 32.9 RDW 14.8 Plt Count 548 H Neut % (Auto) 71.4 Lymph % (Auto) 20.8 L Norman % (Auto) 5.0 Eos % (Auto) 2.1 Baso % (Auto) 0.7 Neut # (Auto) 01722 H PT 9.7 L INR 0.9 VBG pH VBG pCO2 VBG pO2 VBG HCO3 VBG Total CO2 VBG O2 Saturation VBG Base Excess Sodium 133 L Potassium 3.9 Chloride 99.0 Carbon Dioxide 21.0 L BUN 9.0 Creatinine 0.60 Estimated GFR > 60.0 BUN/Creatinine Ratio 15.0 Glucose 522 H* Lactate Calcium 7.8 L Total Bilirubin 0.4 AST 28 ALT 35 Alkaline Phosphatase 94 Total Protein 5.7 L Albumin 3.2 L Globulin 2.5 Albumin/Globulin Ratio 1.3 Lipase < 10 L Procalcitonin Urine Color Urine Appearance Urine pH Ur Specific Hudson Urine Protein Urine Glucose (UA) Urine Ketones Urine Occult Blood Urine Nitrate Urine Bilirubin Urine Urobilinogen Ur Leukocyte Esterase Urine RBC Urine WBC Ur Squamous Epith Cells Amorphous Sediment Urine Bacteria Urine Yeast Ur Culture Indicated? Micro UA Comment Ketones 0.17 02/08/18 02/08/18 02/08/18 16:19 16:35 18:20 WBC RBC Hgb Hct MCV MCH MCHC RDW Plt Count Neut % (Auto) Lymph % (Auto) Norman % (Auto) Eos % (Auto) Baso % (Auto) Neut # (Auto) PT INR VBG pH Cancelled 7.51 H VBG pCO2 Cancelled VBG pO2 Cancelled VBG HCO3 Cancelled VBG Total CO2 Cancelled VBG O2 Saturation Cancelled VBG Base Excess Cancelled Sodium Potassium Chloride Carbon Dioxide BUN Creatinine Estimated GFR BUN/Creatinine Ratio Glucose Lactate 1.6 Calcium Total Bilirubin AST ALT Alkaline Phosphatase Total Protein Albumin Globulin Albumin/Globulin Ratio Lipase Procalcitonin Urine Color Urine Appearance Urine pH Ur Specific Hudson Urine Protein Urine Glucose (UA) Urine Ketones Urine Occult Blood Urine Nitrate Urine Bilirubin Urine Urobilinogen Ur Leukocyte Esterase Urine RBC Urine WBC Ur Squamous Epith Cells Amorphous Sediment Urine Bacteria Urine Yeast Ur Culture Indicated? Micro UA Comment Ketones 02/08/18 02/09/18 18:42 04:40 WBC RBC Hgb Hct MCV MCH MCHC RDW Plt Count Neut % (Auto) Lymph % (Auto) Norman % (Auto) Eos % (Auto) Baso % (Auto) Neut # (Auto) PT INR VBG pH VBG pCO2 VBG pO2 VBG HCO3 VBG Total CO2 VBG O2 Saturation VBG Base Excess Sodium Potassium Chloride Carbon Dioxide BUN Creatinine Estimated GFR BUN/Creatinine Ratio Glucose Lactate Calcium Total Bilirubin AST ALT Alkaline Phosphatase Total Protein Albumin Globulin Albumin/Globulin Ratio Lipase Procalcitonin < 0.05 Urine Color Yellow Urine Appearance Cloudy Urine pH 6.5 Ur Specific Hudson <=1.005 Urine Protein Negative Urine Glucose (UA) 2+ H Urine Ketones Negative Urine Occult Blood Trace-intact Urine Nitrate Negative Urine Bilirubin Negative Urine Urobilinogen 0.2 Ur Leukocyte Esterase Trace H Urine RBC 0-1/hpf Urine WBC 1-5/hpf Ur Squamous Epith Cells 0-1 /hpf Amorphous Sediment 1+ Urine Bacteria Many (>30) H Urine Yeast 0-1/hpf Ur Culture Indicated? Specimen cultured Micro UA Comment Not Reportable Ketones [address] [address] [address] Scan Report Signed Patient: Valerie Garnica I MR#: [id number] : 1975 Acct:[id number] Age/Sex: 42 / F Date of Service: 02/08/18 Loc: ED Accession Number: [id number] Procedure: CT abdomen pelvis w con Ordering Provider: Yareli De La Torre M.D. PROCEDURE: CT ABDOMEN PELVIS W CON INDICATIONS: Generalized abd tenderness TECHNIQUE: After the administration of oral and intravenous contrast, 5 mm thick sections acquired from the diaphragms to the symphysis. 5 mm thick coronal and sagittal reformats were performed. For radiation dose reduction, the following was used: automated exposure control, adjustment of mA and/or kV according to patient size. COMPARISON: [facility], CT, ABDOMEN/PELVIS WITH CONTRAST, 05/09/2009, 17: 34. FINDINGS: Image quality: Excellent. ABDOMEN: Lung bases: There is mild dependent atelectasis bilaterally. Heart size is normal. There is mild concentric wall thickening of the visualized distal esophagus compatible with a mild esophagitis. Solid organs: No focal hepatic lesions. The gallbladder is distended without calcified gallstones or wall thickening. Biliary system is non-dilated. Spleen is normal in size and enhancement. No adrenal nodules. Kidneys demonstrate no hydronephrosis. There are multiple coarse calcifications within the pancreatic head and uncinate process with diffuse pancreatic atrophy. There is mild dilatation of the pancreatic duct in the head and uncinate process. The findings are compatible with sequela of chronic pancreatitis. Peritoneum and bowel: There is severe segmental wall thickening with submucosal edema involving the distal ileum extending through the ileocecal junction. No definite evidence of pneumatosis. There are additional segments of mild small bowel wall thickening proximally. No abnormal dilatation to suggest obstruction. There is moderate gaseous distention of the colon distally and mild segmental wall thickening in the rectum. A moderate to large amount of free fluid is demonstrated throughout the abdomen and pelvis with slight peritoneal enhancement suggestive of peritonitis. No free air. Nodes and vessels: No retroperitoneal or mesenteric adenopathy. Aorta and inferior vena cava are normal in caliber. Miscellaneous: No ventral hernias. PELVIS: Genitourinary: There is mild concentric bladder wall thickening. Miscellaneous: No inguinal hernias or adenopathy. Bones: No suspicious bony lesions. No vertebral body compression fractures. IMPRESSION: 1. Severe segmental wall thickening of the distal ileum as well as mild wall thickening in the proximal small bowel. The findings are consistent with a nonspecific enteritis which may be due to infectious etiologies such as Yersinia or inflammatory processes such as Crohn's disease. No evidence of associated bowel obstruction. The differential includes ischemic bowel but there is no evidence of pneumatosis or portal venous gas. 2. Moderate to large amount of intraperitoneal free fluid with mild peritoneal enhancement suggestive of peritonitis. 3. Moderate distention of the colon distally with mild segmental wall thickening in the rectum compatible with a mild colitis. 4. Sequelae of chronic pancreatitis atrophic appearance of the distal pancreas. Findings discussed with Dr. De La Torre on 02/08/18 at 6:05 PM. Dictated by: Terry Gomez M.D. on 02/08/2018 at 17:59 Approved by: Terry Gomez M.D. on 02/08/2018 at 18:09 Assessment & Plan Plan: Plan: Very pleasant and unfortunate 42-year-old lady with clinical and radiographic evidence of enteritis and colitis. There is no current indication for emergent surgical intervention. I would recommend a change of antibiotics to Zosyn or Primaxin due to the risk of C diff associated diarrhea with Levaquin
[2018-02-09] MEDS: buPROPion SR 150 MG TAB PO (21:07)
[2018-02-09] MEDS: ONDANSETRON 4 MG/2 ML INJ IV (22:56)
[2018-02-10] VITALS (9 sets, daily range): BP systolic 90–103; BP diastolic 57–68; PULSE 72–86; RESP 16–18; TEMP 36.1–36.9; O2SAT 96–100
[2018-02-10] MEDS: metroNIDAZOLE 500 MG/100 ML PIGGYBACK 100 MG IV ×3 (01:19→16:22)
[2018-02-10] MEDS: HYDROMORPHONE 0.5 MG INJ 1 MG IV ×10 (01:20→23:58)
--- NOTE | 2018-02-10 02:42 | PC.NURSE ---
Patient's CBG checked at 0200, 35, patient is A/Ox3, given grape juice and Ensure with protein, rechecked CBG at 0230, 161, will monitor.
[2018-02-10] MEDS: SODIUM CHLORIDE 0.9% 1,000 ML 150 ML IV ×3 (03:18→21:04)
[2018-02-10] MEDS: PANTOPRAZOLE 20 MG TABLET PO (08:23)
[2018-02-10] MEDS: buPROPion SR 150 MG TAB PO ×2 (08:25→21:43)
[2018-02-10 11:25] LABS: Add Manual Diff / Slide Review NO; Basophils Percent Auto 0.8 % (0-2); Eosinophils Percent Auto 4.7 % (2-4); Hematocrit 35.2 % (36-46); Hemoglobin 11.9 g/dL (12.0-16.0); Lymphocytes Percent Auto 34.3 % (25-40); Mean Corpuscular HGB Conc 33.6 % (30-36); Mean Corpuscular Hemoglobin 28.8 PG (26-34); Mean Corpuscular Volume 85.8 fL (80-100); Monocytes Percent Auto 5.3 % (3-14); Neutrophils Absolute Auto 4100 /uL (3000-5900); Neutrophils Percent Auto 54.9 % (50-75); Platelet Count 382 X10^3/uL (150-400); Red Blood Cell Count 4.11 X10^6/uL (4.0-5.2); Red Cell Distribution Width 14.4 % (11.6-14.8); White Blood Cell Count 7.4 X10^3/uL (4.5-11.0)
--- NOTE | 2018-02-10 11:41 | P.PN_ITS ---
Subjective Interval history: Valerie seems to be feeling better today. She rates her pain still is 6/10 but she is moving around in bed and there is no guarding or when sitting or expression of discomfort at all when her abdomen is examined. She is tolerating clear liquids. Date Patient Seen: 02/10/18 Time Patient Seen: 11:39 Exam Vital Signs (past 8 hours): Vital Signs - 8 hr 3 02/10/18 05:53 02/10/18 07:57 02/10/18 08:14 Temperature 97.0 F L 97.6 F Pulse Rate 76 81 Respiratory Rate 16 16 Blood Pressure 98/59 L 90/60 Pulse Oximetry 97 97 Pulse Oximetry 97 Oxygen Delivery Method Room Air Oxygen Flow Rate 0 Narrative Exam Narrative: Abdomen: Soft, minimal global tenderness to palpation but no rebound, guarding, heel taps, Rovsing sign or any other peritoneal signs. Active bowel sounds. Objective Labs Result Diagrams: 02/10/18 11:15 02/08/18 16:00 Labs: Laboratory Results - last 24 hr 02/10/18 11:15 WBC 7.4 D RBC 4.11 Hgb 11.9 L Hct 35.2 L MCV 85.8 MCH 28.8 MCHC 33.6 RDW 14.4 Plt Count 382 Neut % (Auto) 54.9 Lymph % (Auto) 34.3 Towns % (Auto) 5.3 Eos % (Auto) 4.7 H Baso % (Auto) 0.8 Neut # (Auto) 4100 Assessment & Plan Plan: Plan: Benign abdominal exam in the setting of a lady with uncontrolled hyperglycemia and evidence of enteritis and colitis on CT scan. I would continue antibiotics for at least 10 days. She may benefit from a colonoscopy in 6-8 weeks when she is completely healed. All of this will be better with her diabetes is under better control. We will be available if needed. Quality VTE Deep Vein Thrombosis/Pulmonary Embolism Present on Admission: No
[2018-02-10 11:42] LABS: Calcium 7.1 mg/dL (8.4-10.2); Estimated Glomerular Filt Rate > 60.0 mL/min (>60); Glucose 193 mg/dL (70-100); HEMOLYSIS < 15 (0-50); Potassium 3.4 mmol/L (3.4-5.1); Sodium 135 mmol/L (137-145)
[2018-02-10 11:43] LABS: Blood Urea Nitrogen < 2.0 mg/dL (7-17)
[2018-02-10] MEDS: PIPERACILLIN-TAZO 3.375 GM/50 ML FROZ.PIGGY IV ×4 (12:33→23:53)
[2018-02-10] MEDS: INSULIN ASPART 100 UNIT/ML INSULN PEN SUBCUT ×3 (12:34→21:11)
--- NOTE | 2018-02-10 14:37 | P.PN_ITS ---
Subjective Date Patient Seen: 02/10/18 Time Patient Seen: 14:00 Interval history: Patient continued to have abdominal pain. The pain has improved compared to yesterday. She still has loose bowel movements. She had hypoglycemia earlier this morning. Her glucose remains to be labile during the rest of the day. She received 20 units of Lantus insulin yesterday afternoon. Exam Vital Signs (past 8 hours): Vital Signs - 8 hr 3 02/10/18 07:57 02/10/18 08:14 02/10/18 12:10 Temperature 97.6 F 97.2 F L Pulse Rate 81 80 Respiratory Rate 16 16 Blood Pressure 90/60 91/59 L Pulse Oximetry 97 97 99 Pulse Oximetry 99 Oxygen Delivery Method Room Air Oxygen Flow Rate 0 Narrative Exam Narrative: GENERAL: Thin middle-aged woman in no acute distress. HEENT: Head normocephalic, atraumatic. Eyes pupils equal round NECK: Supple, no JVD, CHEST: Breath sounds equal bilaterally, no wheezes rales or rhonchi. CARDIAC: Regular rate and rhythm without murmurs, rubs or gallops. ABDOMEN: Soft, mildly distended, mild diffuse tenderness. No guarding or rebound. EXTREMITIES: Normal range of motion, no clubbing or edema. NEUROLOGICAL: Alert and oriented; Normal muscle strength. SKIN: Warm, dry, no petechiae, no rashes or lesions. Objective Labs Result Diagrams: 02/10/18 11:15 02/10/18 11:15 Labs: Laboratory Results - last 24 hr 02/10/18 02/10/18 11:15 11:15 WBC 7.4 D RBC 4.11 Hgb 11.9 L Hct 35.2 L MCV 85.8 MCH 28.8 MCHC 33.6 RDW 14.4 Plt Count 382 Neut % (Auto) 54.9 Lymph % (Auto) 34.3 Willacy % (Auto) 5.3 Eos % (Auto) 4.7 H Baso % (Auto) 0.8 Neut # (Auto) 4100 Sodium 135 L Potassium 3.4 Chloride 103.0 Carbon Dioxide 25.0 BUN < 2.0 L Creatinine 0.40 L Estimated GFR > 60.0 BUN/Creatinine Ratio 5.0 L Glucose 193 H D Calcium 7.1 L Assessment & Plan Plan: Plan: 1. Acute Enteritis and colitis: Abdominal CT scan suggests enteritis and colitis. Appreciate Dr. Grossman's consultation. Continue IV Zosyn and Flagyl. Continue clear liquid diet. Send stool for GI PCR panel. 2. Type 1 diabetes: Patient continued to have labile glucose readings.. She did have low glucose reading earlier this morning. We will give 15 units of Lantus insulin today. Continue monitor her fingerstick glucose readings. 3. Chronic pain: Restart her outpatient pain medication regimen. We will also use IV Dilaudid as needed for breakthrough pain. Quality VTE Deep Vein Thrombosis/Pulmonary Embolism Present on Admission: No
--- NOTE | 2018-02-10 16:13 | CM.SWNOTE ---
JET WIPER Intervention: Pt's cousin Nahun requested a conversation w/this JET WIPER to discuss concerns she had about pt and her routine and habits at home, to include non compliance w/management of her diabetes and lack of self care. Nahun very concerned about pt's safety and feels pt will continue to re-admit and inevitably, , if something doesn't change. Per our conversation: Pt very sedentary at home. Nahun is her primary, and only, cg and states she always encourages pt to check her blood sugar, take medications (to include anti-depressant) but pt becomes very agitated and defensive and will shut down and not talk to Star for days in response. Pt eats all day but will have diarrhea after she eats, this has been going on for over a month. Pt complains of constant pain throughout her body and Nahun finds the only motivation for pt to get out of the house is to get her pain meds at her Dr's office. Nahun concerned for her cousin/pt because she has experienced numerous deaths in her family in the last year, including her sister very recently; Sister from a Morphine/oxycodone overdose. Nahun describes strange behavior from pt like being up all night, turning all the lights on, then sleeping during the day, shutting the blinds and refusing to leave the house. Pt is living at Nahun's family home. Pt also has wondered in the night, confused, went to put the coffee pot on then returned to bed for sleep. Pt doesn't clean, she doesn't like to shower, pt keeps dirty dishes on her bed and covers them w/her sheet, left until mold is growing. Pt sleeps next to these dishes. Nahun explains pt will not discuss her recent losses, grieving process, she will not talk about why she refuses to take anti-depressants etc. 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 She doesn't want to give up on pt but feels she is not getting through to her. Nahun has a counselor through the [facility] and feels she can get/has support to maintain sobriety. Nahun feels abandoned by her family in needing to take care of pt's needs. This JET WIPER explained that an JET WIPER can meet w/pt, complete assessment, and touch base re how it's going at home? Pt will need to be the one to decide on continued management of her diabetes and MH needs; Star aware. It sounds as if pt might be suffering from a severe depression and refuses medications to assist. CM team will follow closely. This JET WIPER unable to see pt today d/t time constraints. I'm hopeful the next JET WIPER scheduled might have time to complete full assessment tomorrow. TERA Parker
[2018-02-10] MEDS: SODIUM CHLORIDE 0.9% FLUSH 10 ML IV ×3 (16:21→21:04)
[2018-02-10 19:50] LABS: Adenovirus F 40/41 Not Detected (Not Detect); Astrovirus Not Detected (Not Detect); Campylobacter Not Detected (Not Detect); Clostridium difficile toxin AB Not Detected (Not Detect); Cryptosporidium Not Detected (Not Detect); Cyclospora cayetanensis Not Detected (Not Detect); Entamoeba histolytica Not Detected (Not Detect); Enteroaggregative E.coli Not Detected (Not Detect); Enteropathogenic E.coli Not Detected (Not Detect); Enterotoxigenic E.coli It/st Not Detected (Not Detect); Giardia lamblia Not Detected (Not Detect); Norovirus GI/GII Not Detected (Not Detect); Plesiomonsa shigelloides Not Detected (Not Detect); Rotavirus A Not Detected (Not Detect); Salmonella Not Detected (Not Detect); Shiga-like toxin-prod E.coli Not Detected (Not Detect); Shigella/Enteroinvasive E.coli Not Detected (Not Detect); Vibrio Not Detected (Not Detect); Vibrio cholerae Not Detected (Not Detect); Yersinia enterocolitica Not Detected (Not Detect)
[2018-02-10] MEDS: INSULIN GLARGINE 100 UNIT/ML 3ML PEN 15 UNIT SUBCUT (21:10)
[2018-02-11] VITALS (10 sets, daily range): BP systolic 94–147; BP diastolic 59–86; PULSE 77–88; RESP 16–20; TEMP 36.2–36.9; O2SAT 97–99
[2018-02-11] MEDS: metroNIDAZOLE 500 MG/100 ML PIGGYBACK 100 MG IV ×3 (01:14→16:53)
[2018-02-11] MEDS: HYDROMORPHONE 0.5 MG INJ 1 MG IV ×5 (03:28→23:55)
[2018-02-11] MEDS: PIPERACILLIN-TAZO 3.375 GM/50 ML FROZ.PIGGY IV ×4 (06:13→23:55)
[2018-02-11] MEDS: HYDROMORPHONE 0.5 MG INJ IV ×4 (08:44→14:58)
[2018-02-11] MEDS: buPROPion SR 150 MG TAB PO ×2 (08:47→21:03)
[2018-02-11] MEDS: PANTOPRAZOLE 20 MG TABLET PO (08:47)
[2018-02-11] MEDS: INSULIN ASPART 100 UNIT/ML INSULN PEN SUBCUT ×2 (12:11→16:51)
--- NOTE | 2018-02-11 13:37 | CM.DPC ---
DCP Cont: Per Surgeon Consult, likely at least 10 days of Abx needed but currently no surgery. Per RN, likely chance that pt's IV-Abx can be switched to oral abx but still waiting for MD to determine further. SW met bedside with pt and explained role to follow up on possible Mental Health or supportive resources and pt was watching tv and made very minimal eye contact. Pt states that things are just fine at home and she has no needs or concerns. Pt denies being connected up to any other services and SW inquired if she utilizes the [facility] in [facility] and pt acknowledged that she does and confirmed that she knows Talya, the [facility] [employer], and that Talya has been helpful to her in the past. SW encouraged her to contact Talya if she is feeling the need for supportive services or support with her diabetes or medical needs and pt nodded yes. Pt declined any further resources at this time and remained flat affect and minimal engagement. Plan: SW to continue following to r/o IV-Abx at d/c (likely will switch to oral Abx) and to confirm that pt is not interested in any resource information for mental health or medical education/support. TERA Miller
--- NOTE | 2018-02-11 14:12 | P.PN_ITS ---
Subjective Date Patient Seen: 02/11/18 Time Patient Seen: 13:50 Interval history: Valerie still has abdominal discomfort. She started having watery diarrhea about 4 hr ago. Exam Vital Signs (past 8 hours): Vital Signs - 8 hr 3 02/11/18 08:00 02/11/18 08:44 Temperature 97.2 F L 97.2 F L Pulse Rate 81 Respiratory Rate 20 Blood Pressure 104/67 Pulse Oximetry 99 Pulse Oximetry 99 Oxygen Delivery Method Room Air Oxygen Flow Rate 0 Narrative Exam Narrative: GENERAL: Thin middle-aged woman in no acute distress. HEENT: Head normocephalic, atraumatic. Eyes pupils equal round NECK: Supple, no JVD, CHEST: Breath sounds equal bilaterally, no wheezes rales or rhonchi. CARDIAC: Regular rate and rhythm without murmurs, rubs or gallops. ABDOMEN: Soft, mildly distended, mild diffuse tenderness, more noticeable in the left lower quadrant. No guarding or rebound. EXTREMITIES: Normal range of motion, no clubbing or edema. NEUROLOGICAL: Alert and oriented; Normal muscle strength. SKIN: Warm, dry, no petechiae, no rashes or lesions. Objective Labs Result Diagrams: 02/10/18 11:15 02/10/18 11:15 Labs: Laboratory Results - last 24 hr 02/10/18 18:00 Stool Aeromonas Cult Neg for aeromonas Stl C. cayetanensis PCR Not detected Stool Rotavirus (PCR) Not detected Stool Adenovirus (PCR) Not detected Stool Astrovirus (PCR) Not detected Stool Cryptosporidium PCR Not detected Stl E.coli Shiga Tox PCR Not detected St Sh/Enteroin Ecoli PCR Not detected Stool E coli O157 PCR Not Reportable Stl Enterotoxigenic E PCR Not detected Stool EPEC (PCR) Not detected Stl E. histolytica PCR Not detected Stool Giardia Lamblia PCR Not detected Stl P. shigelloides PCR Not detected St Y.enterocolitica PCR Not detected Stool Vibrio (PCR) Not detected Stl Vibrio cholerae PCR Not detected Stl Enteroaggr Ecoli PCR Not detected Stl Norovirus GI/GII PCR Not detected Campylobacter (PCR) Not detected C. difficile Tox (PCR) Not detected Salmonella (PCR) Not detected Assessment & Plan Plan: Plan: 1. Acute Enteritis and colitis: Abdominal CT scan suggests enteritis and colitis. Continue IV Zosyn and Flagyl. Continue clear liquid diet. re-send stool for GI PCR panel. 2. Type 1 diabetes: Glucose is better controlled today. Continue Lantus insulin 15 units daily. Continue monitor her fingerstick glucose readings. 3. Chronic pain: Restart her outpatient pain medication regimen. We will also use IV Dilaudid as needed for breakthrough pain. Quality VTE Deep Vein Thrombosis/Pulmonary Embolism Present on Admission: No
[2018-02-11] MEDS: SODIUM CHLORIDE 0.9% 1,000 ML 150 ML IV (16:02)
[2018-02-11] MEDS: SODIUM CHLORIDE 0.9% FLUSH 10 ML IV (17:56)
[2018-02-11] MEDS: INSULIN GLARGINE 100 UNIT/ML 3ML PEN 15 UNIT SUBCUT (18:02)
[2018-02-11] MEDS: ZOLPIDEM 5 MG TABLET 10 MG PO (21:02)
[2018-02-12] MEDS: metroNIDAZOLE 500 MG/100 ML PIGGYBACK 100 MG IV ×2 (01:19→08:33)
[2018-02-12] MEDS: HYDROMORPHONE 0.5 MG INJ 1 MG IV ×3 (03:05→10:16)
[2018-02-12 04:41] VITALS: BP 109/72; PULSE 75; RESP 16; TEMP 35.7; O2SAT 100
[2018-02-12] MEDS: SODIUM CHLORIDE 0.9% 1,000 ML 100 ML IV (05:07)
[2018-02-12] MEDS: PIPERACILLIN-TAZO 3.375 GM/50 ML FROZ.PIGGY IV (05:43)
--- NOTE | 2018-02-12 07:00 | PC.NURSE ---
NOC note: Pt requested PRN IVP dilaudid 3x's this night, Pt asking when she will go home, stated that she would like to start eating real food. Active BT's noted and pt denies nausea.
[2018-02-12 08:00] VITALS: BP 110/71; PULSE 72; RESP 20; TEMP 36.6; O2SAT 100
[2018-02-12] MEDS: buPROPion SR 150 MG TAB PO (08:34)
[2018-02-12] MEDS: PANTOPRAZOLE 20 MG TABLET PO (08:34)
--- NOTE | 2018-02-12 09:22 | PM.DS.1 ---
History of Present Illness Chief complaint: Abd cramping,possible DKA Narrative: Valerie Garnica is a 42 year old female who presented to the [facility] last night for cramping abdominal pain and high glucose readings. She started having abdominal cramping about 3-4 days ago. She also had nausea. Her abdominal pain got worse yesterday. She rates the severity of the pain as 8 to 9/10. She described the pain as a cramping sensation. She also had diarrhea yesterday morning. Her glucose was high in the 500s yesterday. She received regular insulin 12 units at the emergency room. Abdominal CT scan showed severe thickening of distal ileum and mild wall thickening in the proximal small bowel. And mild wall thickening in the rectum. There was moderate to large amount of intraperitoneal free fluid with mild peritoneal enhancement that suggests possible peritonitis. She received 1 dose of IV Zosyn at the ER. This morning she was noticed to be hypoglycemic and hypotensive with systolic blood pressure in the 80s. She continued to have cramping abdominal pain which required IV Dilaudid for pain control. Discharge Providers Date of admission: 02/08/18 20:14 Primary care physician: [facility] in [place] Consults: General surgery, Dr. Grossman Discharge provider: Evelyn Acevedo MD Summary Discharge Diagnosis: 1. Acute enteritis and colitis, likely infectious etiology. 2. Type 1 diabetes with labile glucose readings 3. Chronic pain Hospital Course: who presented to the [facility] last night for cramping abdominal pain and high glucose readings. She started having abdominal cramping about 3-4 days ago. She also had nausea. Her abdominal pain got worse yesterday. She rates the severity of the pain as 8 to 9/10. She described the pain as a cramping sensation. She also had diarrhea yesterday morning. Her glucose was high in the 500s yesterday. She received regular insulin 12 units at the emergency room. Abdominal CT scan showed severe thickening of distal ileum and mild wall thickening in the proximal small bowel. And mild wall thickening in the rectum. There was moderate to large amount of intraperitoneal free fluid with mild peritoneal enhancement that suggests possible peritonitis. She received 1 dose of IV Zosyn at the ER. This morning she was noticed to be hypoglycemic and hypotensive with systolic blood pressure in the 80s. She continued to have cramping abdominal pain which required IV Dilaudid for pain control. Status at Discharge Cognitive/behavioral status at discharge: Alert and oriented x3 Functional status at discharge: uses cane/walker Overall status at discharge: patient is progressing back to baseline Time Spent with Patient Greater than 30 minutes Exam Vital Signs (past 8 hours): Vital Signs - 8 hr 02/12/18 04:41 02/12/18 08:00 Temperature 96.3 F L 97.9 F Pulse Rate 75 72 Respiratory Rate 16 20 Blood Pressure 109/72 110/71 Pulse Oximetry 100 100 Pulse Oximetry 100 Oxygen Delivery Method Room Air Oxygen Flow Rate [address] scan - abdomen: Radiologist's impression: 1. Severe segmental wall thickening of the distal ileum as well as mild wall thickening in the proximal small bowel. The findings are consistent with a nonspecific enteritis which may be due to infectious etiologies such as Yersinia or inflammatory processes such as Crohn's disease. No evidence of associated bowel obstruction. The differential includes ischemic bowel but there is no evidence of pneumatosis or portal venous gas. 2. Moderate to large amount of intraperitoneal free fluid with mild peritoneal enhancement suggestive of peritonitis. 3. Moderate distention of the colon distally with mild segmental wall thickening in the rectum compatible with a mild colitis. 4. Sequelae of chronic pancreatitis atrophic appearance of the distal pancreas. Labs Result Diagrams: 02/10/18 11:15 02/10/18 11:15 Labs: Laboratory Results - last 24 hr 02/10/18 18:00 Stool Aeromonas Cult Neg for aeromonas Discharge Plan Discharge Plan Patient Disposition: Home, Self-Care Discharge comment: Follow-up of the [facility] in [place] within 7 days Provider Discharge Instructions Diet: Carb-consistent/Diabetic Activity: As tolerated Discharge Data Primary Care Provider: Adán Dee V Attending Provider: Valerio Tan Admit Date/Time: 02/08/18 20:14 Quality VTE Deep Vein Thrombosis/Pulmonary Embolism Present on Admission: No
--- NOTE | 2018-02-12 09:30 | P.DS_ITS ---
History of Present Illness Chief complaint: Abd cramping,possible DKA Narrative: Valerie Garnica is a 42 year old female who presented to the [facility] last night for cramping abdominal pain and high glucose readings. She started having abdominal cramping about 3-4 days ago. She also had nausea. Her abdominal pain got worse yesterday. She rates the severity of the pain as 8 to 9/10. She described the pain as a cramping sensation. She also had diarrhea yesterday morning. Her glucose was high in the 500s yesterday. She received regular insulin 12 units at the emergency room. Abdominal CT scan showed severe thickening of distal ileum and mild wall thickening in the proximal small bowel. And mild wall thickening in the rectum. There was moderate to large amount of intraperitoneal free fluid with mild peritoneal enhancement that suggests possible peritonitis. She received 1 dose of IV Zosyn at the ER. This morning she was noticed to be hypoglycemic and hypotensive with systolic blood pressure in the 80s. She continued to have cramping abdominal pain which required IV Dilaudid for pain control. Discharge Providers Date of admission: 02/08/18 20:14 Primary care physician: [facility] in [place] Consults: General surgery, Dr. Grossman Discharge provider: Evelyn Acevedo MD Summary Discharge Diagnosis: 1. Acute enteritis and colitis, likely infectious etiology. 2. Type 1 diabetes with labile glucose readings 3. Chronic pain Hospital Course: who presented to the [facility] last night for cramping abdominal pain and high glucose readings. She started having abdominal cramping about 3-4 days ago. She also had nausea. Her abdominal pain got worse yesterday. She rates the severity of the pain as 8 to 9/10. She described the pain as a cramping sensation. She also had diarrhea yesterday morning. Her glucose was high in the 500s yesterday. She received regular insulin 12 units at the emergency room. Abdominal CT scan showed severe thickening of distal ileum and mild wall thickening in the proximal small bowel. And mild wall thickening in the rectum. There was moderate to large amount of intraperitoneal free fluid with mild peritoneal enhancement that suggests possible peritonitis. She received 1 dose of IV Zosyn at the ER. This morning she was noticed to be hypoglycemic and hypotensive with systolic blood pressure in the 80s. She continued to have cramping abdominal pain which required IV Dilaudid for pain control. Status at Discharge Cognitive/behavioral status at discharge: Alert and oriented x3 Functional status at discharge: uses cane/walker Overall status at discharge: patient is progressing back to baseline Time Spent with Patient Greater than 30 minutes Exam Vital Signs (past 8 hours): Vital Signs - 8 hr 3 02/12/18 04:41 02/12/18 08:00 Temperature 96.3 F L 97.9 F Pulse Rate 75 72 Respiratory Rate 16 20 Blood Pressure 109/72 110/71 Pulse Oximetry 100 100 Pulse Oximetry 100 Oxygen Delivery Method Room Air Oxygen Flow Rate [address] scan - abdomen: Radiologist's impression: 1. Severe segmental wall thickening of the distal ileum as well as mild wall thickening in the proximal small bowel. The findings are consistent with a nonspecific enteritis which may be due to infectious etiologies such as Yersinia or inflammatory processes such as Crohn's disease. No evidence of associated bowel obstruction. The differential includes ischemic bowel but there is no evidence of pneumatosis or portal venous gas. 2. Moderate to large amount of intraperitoneal free fluid with mild peritoneal enhancement suggestive of peritonitis. 3. Moderate distention of the colon distally with mild segmental wall thickening in the rectum compatible with a mild colitis. 4. Sequelae of chronic pancreatitis atrophic appearance of the distal pancreas. Labs Result Diagrams: 02/10/18 11:15 02/10/18 11:15 Labs: Laboratory Results - last 24 hr 02/10/18 18:00 Stool Aeromonas Cult Neg for aeromonas Discharge Plan Discharge Plan Patient Disposition: Home, Self-Care Discharge comment: [facility] in [place] within 7 days Provider Discharge Instructions Diet: Carb-consistent/Diabetic Activity: As tolerated Discharge Data Primary Care Provider: Adán Dee V Attending Provider: Valerio Tan Admit Date/Time: 02/08/18 20:14 Quality VTE Deep Vein Thrombosis/Pulmonary Embolism Present on Admission: No
--- NOTE | 2018-02-12 11:23 | CM.DPNOTE ---
Discharge: Patient to discharge home on oral abx. Met with patient: Patient agreeable to discharge and not interested in about MH resources. Plan: Patient to discharge home today.
--- NOTE | 2018-02-12 12:04 | CM.DANOTE ---
Pt. awake, alert, oriented. NAD. VSS. IV analgesic given approx. one hour before discharge for reported 6/10 pain, to good effect. PIV d/c'd, pressure dressing applied. All personal effects with pt. Escorted to POV in , by Cesar
== END 2018-02-12 11:45 | disposition home or self-care (01) | DRG 391 ==
LOC: ED 18:57 → AC 20:15
PROVIDERS: Internal Medicine; Student in an Organized Health Care Education/Training Program; Surgery; Admitting Provider Internal Medicine; Emergency Provider Emergency Medicine; Family Provider Internal Medicine; PCP Internal Medicine; Visit Provider Internal Medicine
DX: A09 Infectious gastroenteritis and colitis, unspecified (principal); K65.9 Peritonitis, unspecified; E10.65 Type 1 diabetes mellitus with hyperglycemia; E10.649 Type 1 diabetes mellitus with hypoglycemia without coma; G89.4 Chronic pain syndrome; G40.409 Other generalized epilepsy and epileptic syndromes, not intractable, without status epilepticus; F17.210 Nicotine dependence, cigarettes, uncomplicated; G47.00 Insomnia, unspecified; F32.9 Major depressive disorder, single episode, unspecified; F41.9 Anxiety disorder, unspecified; I95.9 Hypotension, unspecified
CPT/HCPCS: 36415; 74177; 80048; 80053; 81001; 82009; 82962; 83605; 83690; 83986; 84145; 85025; 85610; 87040; 87086; 87507; 93005; 96361; 96372; 96374; 99283; 99285; 99406; J1170; J1956; J2405; J2543; J7050; Q9967

== ENCOUNTER → 2018-03-09 14:36 | Outpatient (CLI) | payer MEDICAID, OTHER, SELFPAY ==
[2018-02-08 20:46] VITALS: BMI 18.6
[2018-03-09 15:53] LABS: Alanine Aminotransferase 58 IU/L (9-52); Albumin Globulin Ratio 1.5 (1.0-2.8); Alkaline Phosphatase 119 U/L (38-126); Aspartate Aminotransferase 44 IU/L (14-36); Bilirubin Total 0.5 mg/dL (0.2-1.3); Blood Urea Nitrogen 7 mg/dL (7-17); Calcium 8.6 mg/dL (8.4-10.2); Carbon Dioxide 29 mmol/L (22-32); Chloride 94 mmol/L (98-107); Estimated Glomerular Filt Rate > 60.0 mL/min (>60); Globulin 2.7 g/dL (1.7-4.1); Glucose 237 mg/dL (70-100); HEMOLYSIS 37 (0-50); Sodium 134 mmol/L (137-145); Total Protein 6.7 g/dL (6.3-8.2)
[2018-03-09 16:02] LABS: Potassium 5.5 mmol/L (3.4-5.1)
== END ==
PROVIDERS: Family Provider Internal Medicine; PCP Internal Medicine; Visit Provider Physician Assistant
DX: R74.8 Abnormal levels of other serum enzymes (principal); R94.5 Abnormal results of liver function studies
CPT/HCPCS: 36415; 80053

== ENCOUNTER → 2018-06-05 11:44 | Outpatient (CLI) | payer MEDICAID, OTHER, SELFPAY ==
[2018-02-08 20:46] VITALS: BMI 18.6
--- NOTE | 2018-06-05 | DI.MG.S_ITS ---
BILATERAL DIGITAL SCREENING MAMMOGRAM 3D/2D WITH CAD: 06/05/2018 CLINICAL: Routine screening. No prior exams were available for comparison. The tissue of both breasts is heterogeneously dense. This may lower the sensitivity of mammography. Current study was also evaluated with a Computer Aided Detection (CAD) system. No significant masses, calcifications, or other findings are seen in either breast. IMPRESSION: NEGATIVE There is no mammographic evidence of malignancy. A 1 year screening mammogram is recommended. This exam was interpreted at Station ID: [id number]. NOTE: For mammograms, a report in lay terms will be sent to the patient. Approximately 15% of breast malignancies will not be visualized mammographically. In the management of a palpable breast mass, a negative mammogram must not discourage biopsy of a clinically suspicious lesion. Electronically Signed By: Nohelia jaime/sunil:06/08/2018 15:47:39 letter sent: Normal Exam ACR BI-RADS Category 1: Negative [id number]
== END ==
PROVIDERS: Family Provider Internal Medicine; PCP Internal Medicine; Visit Provider Physician Assistant
DX: Z12.31 Encounter for screening mammogram for malignant neoplasm of breast (principal)
CPT/HCPCS: 77063; 77067

== ENCOUNTER → 2018-08-02 13:31 | Outpatient (CLI) | payer MEDICAID, OTHER, SELFPAY ==
[2018-02-08 20:46] VITALS: BMI 18.6
== END ==
PROVIDERS: Family Provider Family Medicine; PCP Internal Medicine; Visit Provider Physician Assistant
DX: G89.29 Other chronic pain (principal); E10.9 Type 1 diabetes mellitus without complications
CPT/HCPCS: 83013

== ENCOUNTER → 2018-08-03 11:22 | Outpatient (CLI) | payer MEDICAID, OTHER, SELFPAY ==
[2018-02-08 20:46] VITALS: BMI 18.6
--- NOTE | 2018-08-03 | DI.RAD.S_ITS ---
PROCEDURE: XR HIP W PEL IF DONE RT 2V INDICATIONS: HIP/BACK PAIN TECHNIQUE: AP pelvis with lateral view(s) of the right hip(s). COMPARISON: [facility], CT, CT ABDOMEN PELVIS W CON, 02/08/2018, 17:27. FINDINGS: Bones: No fractures or dislocations. Pelvic ring appears intact. No suspicious bony lesions. Soft tissues: The visualized bowel gas pattern is normal. No suspicious soft tissue calcifications. IMPRESSION: Normal for age, source of asymmetric right-sided pain is not found. Dictated by: Jose Walker M.D. on 08/03/2018 at 12:35 Approved by: Jose Walker M.D. on 08/03/2018 at 12:36
--- NOTE | 2018-08-03 | DI.RAD.S_ITS ---
PROCEDURE: XR LUMBAR SPINE 2-3V INDICATIONS: HIP/BACK PAIN TECHNIQUE: 3 views of the lumbar spine were acquired. COMPARISON: None. FINDINGS: Bones: 5 [id number] vertebrae are present. There is normal bony alignment. No vertebral body compression fractures. No suspicious bony lesions. Degenerative disc disease and bilateral facet arthrosis at L3-4 through L5-S1 levels are seen. Soft tissues: Overlying bowel gas pattern is normal. No suspicious soft tissue calcifications. IMPRESSION: [id number] degenerative disc disease in lower lumbar spine. No compression fracture or traumatic spondylolisthesis. Dictated by: Levy Condon M.D. on 08/03/2018 at 17:21 Approved by: Levy Condon M.D. on 08/03/2018 at 17:22
== END ==
PROVIDERS: Family Provider Family Medicine; PCP Internal Medicine; Visit Provider Physician Assistant
DX: M25.551 Pain in right hip (principal); M54.9 Dorsalgia, unspecified; M51.36 Other intervertebral disc degeneration, lumbar region; M51.37 Other intervertebral disc degeneration, lumbosacral region; M47.816 Spondylosis without myelopathy or radiculopathy, lumbar region; M48.07 Spinal stenosis, lumbosacral region
CPT/HCPCS: 72100; 73502

== ENCOUNTER → 2018-08-08 13:37 | Outpatient (CLI) | payer MEDICAID, OTHER, SELFPAY ==
[2018-02-08 20:46] VITALS: BMI 18.6
== END ==
PROVIDERS: Family Provider Family Medicine; PCP Internal Medicine; Visit Provider Physician Assistant
DX: M81.0 Age-related osteoporosis without current pathological fracture (principal); E10.9 Type 1 diabetes mellitus without complications; G89.29 Other chronic pain; F17.200 Nicotine dependence, unspecified, uncomplicated; Z82.62 Family history of osteoporosis
CPT/HCPCS: 77080

== ENCOUNTER → 2018-11-08 10:42 | Outpatient (CLI) | payer MEDICAID, OTHER, SELFPAY ==
[2018-02-08 20:46] VITALS: BMI 18.6
[2018-11-08 12:11] LABS: Add Manual Diff / Slide Review NO; Basophils Absolute Auto 100 /uL (0-100); Basophils Percent Auto 0.6 % (0-2); Eosinophils Absolute Auto 100 /uL (0-450); Eosinophils Percent Auto 0.8 % (2-4); Hematocrit 42.2 % (36-46); Hemoglobin 13.8 g/dL (12.0-16.0); Lymphocytes Absolute Auto 2100 /uL (1100-4500); Mean Corpuscular HGB Conc 32.6 % (30-36); Mean Corpuscular Hemoglobin 29.5 PG (26-34); Mean Corpuscular Volume 90.4 fL (80-100); Monocytes Absolute Auto 400 /uL (0-900); Monocytes Percent Auto 3.9 % (3-14); Neutrophils Absolute Auto 8300 /uL (1500-7000); Neutrophils Percent Auto 75.7 % (50-75); Platelet Count 576 X10^3/uL (150-400); Red Blood Cell Count 4.67 X10^6/uL (4.0-5.2); Red Cell Distribution Width 15.3 % (11.6-14.8)
[2018-11-08 12:31] LABS: Erythrocyte Sedimentation Rate 10 MM/HR (0-20)
[2018-11-08 12:37] LABS: Alanine Aminotransferase 36 IU/L (9-52); Albumin Globulin Ratio 1.3 (1.0-2.8); Alkaline Phosphatase 168 U/L (38-126); Aspartate Aminotransferase 37 IU/L (14-36); BUN Creatinine Ratio 11.7 (6-22); Bilirubin Total 0.4 mg/dL (0.2-1.3); Blood Urea Nitrogen 7 mg/dL (7-17); C-Reactive Protein Quant 0.9 mg/dL (<1.0); Calcium 9.1 mg/dL (8.4-10.2); Carbon Dioxide 26 mmol/L (22-32); Chloride 94 mmol/L (98-107); Estimated Glomerular Filt Rate > 60.0 mL/min (>60); Globulin 3.1 g/dL (1.7-4.1); HEMOLYSIS < 15 (0-50); Potassium 4.1 mmol/L (3.4-5.1); Sodium 132 mmol/L (137-145); Total Protein 7.1 g/dL (6.3-8.2)
[2018-11-08 12:53] LABS: Rheumatoid Factor < 8.6 IU/mL (<12.0)
[2018-11-08 13:11] LABS: Glucose 618 mg/dL (70-100)
[2018-11-09 12:31] LABS: CCP Antibody (IgG) < 16 Units (< 20)
[2018-11-09 14:15] LABS: Complement C3 137 mg/dL (83-193)
[2018-11-09 19:22] LABS: ANA Screen, IFA Negative (Negative)
[2018-11-10 13:52] LABS: Complement Total CH50 > 60 U/mL (31-60)
== END ==
PROVIDERS: Family Provider Family Medicine; PCP Internal Medicine; Visit Provider Physician Assistant
DX: L93.0 Discoid lupus erythematosus (principal)
CPT/HCPCS: 36415; 80053; 83516; 85025; 85651; 86038; 86140; 86160; 86162; 86430

== ENCOUNTER 2018-12-07 00:34 | Inpatient (IN) | payer MEDICAID, OTHER, SELFPAY ==
[2018-02-08 20:46] VITALS: BMI 18.6
[2018-12-07] VITALS (29 sets, daily range): BP systolic 91–159; BP diastolic 64–102; PULSE 84–126; RESP 9–24; TEMP 36.3–37.1; O2SAT 90–100; BMI 22.1
--- NOTE | 2018-12-07 00:42 | DI.RAD.S_ITS ---
PROCEDURE: XR PELVIS 1-2V INDICATIONS: fall, right hip pain TECHNIQUE: 1 view(s) of the pelvis acquired. COMPARISON: None. FINDINGS: Bones: No fractures or dislocations. No suspicious bony lesions. Soft tissues: Visualized bowel gas pattern is normal. No suspicious soft tissue calcifications. IMPRESSION: No definitive fracture. If clinical symptoms persist or clinical suspicion for pathology is high, advanced imaging such as CT or MRI is suggested for further evaluation. No significant discrepancy with the ER preliminary interpretation. Dictated by: Ina Michel M.D. on 12/07/2018 at 8:46 Approved by: Ina Michel M.D. on 12/07/2018 at 8:49
--- NOTE | 2018-12-07 01:31 | ED_ITS ---
HPI - Extremity Injury (Lower) General Chief Complaint: Extremity Injury, Lower Stated Complaint: GLF, hip pain Time Seen by Provider: 12/07/18 01:12 Source: patient and EMS Mode of arrival: EMS Limitations: no limitations History of Present Illness HPI Narrative: patient is a 43-year-old female here for evaluation of a right hip injury. She was brought in by EMS. Received fentanyl prior to arrival by EMS. Patient reports that this evening she was trying to get out of bed. States she got her feet caught up in the sheets. She landed on her right hip. Has had pain in her right hip since then. Has been unable to walk. Related Data Home Medications Medication Instructions Recorded Confirmed omeprazole 20 mg PO QDAY #0 10/09/12 02/08/18 bupropion HCl [Wellbutrin SR] 150 mg PO BID #0 09/13/16 02/08/18 ondansetron [Zofran ODT] 4 mg SUBLINGUAL Q4HP PRN 02/08/18 02/08/18 Previous Rx's Medication Instructions Recorded insulin aspart U-100 [Novolog 0 unit SUB-Q AC #3 unit 02/12/18 Flexpen U-100 Insulin] Allergies Allergy/AdvReac Type Severity Reaction Status Date / Time sulfasalazine [SULFASALAZINE] Allergy Mild PANCREATITI Verified 02/08/18 16:35 S trazodone AdvReac Intermediate HEART Verified 02/08/18 16:35 PALPITATIONS Review of Systems Constitutional Denies fatigue, Reports frequent falls and Denies headache(s) ENT Ears, Nose, Mouth, and Throat: Denies headache(s) Cardiovascular Denies chest pain and Denies dyspnea Respiratory Denies dyspnea Gastrointestinal Gastrointestinal: Denies abdominal pain, Denies nausea and Denies vomiting Genitourinary Denies urinary incontinence, Denies urinary hesitancy and Denies urinary urgency Musculoskeletal Denies myalgias and Reports arthralgias ( Right hip) Integumentary/Breasts Denies rash Neurologic Denies behavioral changes, Reports frequent falls and Denies headache(s) Psychiatric Denies behavioral changes Endocrine Denies fatigue Hematologic/Lymphatic Denies easy bleeding and Denies easy bruising [facility] Medical History Gastroesophageal reflux disease (Acute) Insulin dependent diabetes mellitus (Acute) Lupus (Acute) Osteoporosis (Acute) Family History Mother Diabetes mellitus Father Diabetes mellitus Social History household members: family alcohol intake: current Social History household members: family alcohol intake: current Exam Initial Vital Signs Initial Vital Signs: Vital Signs Temperature 98 F 12/07/18 00:39 Pulse Rate 90 12/07/18 00:39 Respiratory Rate 20 12/07/18 00:39 Blood Pressure 159/102 H 12/07/18 00:39 Pulse Oximetry 96 12/07/18 00:39 Const General: cooperative and No acute distress Orientation: alert, awake and oriented x3 Resp Effort & Inspection: normal respiratory effort Auscultation: clear to auscultation bilaterally Cardio Rate: regular rate Rhythm: regular rhythm Pulses: radial pulses present GI Inspection: non-distended Palpation: soft, No firm and No tender Skin Lesions: no lesions Rashes: no rashes Neuro General: alert, awake and oriented x3 Extrem Other: patient able to flex the hip and at the knee and at the ankle the right lower extremity. Has significant tenderness to palpation lateral aspect of the right hip over the greater trochanter that extends over into her groin. Psych Appearance: grossly normal and well kempt Scores GCS Jada coma scale eye opening: Spontaneous [place] coma scale verbal response: Orientated [place] coma scale motor response: Obey commands [place] coma scale total score: 15 Course Orders Ordered: ED Orders 12/07/18 00:15 Basic Metabolic Panel Stat Complete Blood Count AUTO DIFF Stat 12/07/18 00:42 XR pelvis 1-2V Stat 12/07/18 01:42 CT pelvis wo con Stat 12/07/18 02:52 Type and Screen Stat 12/07/18 03:25 Ketones (Beta-Hydroxybutyrate) Stat 12/07/18 03:26 UA Complete [Urinalysis and Microscopic] Stat Sodium Chloride (Normal Saline 0.9%) 1,000 mls @ 125 mls/hr IV CONT JOSE ANTONIO Discontinued Medications Insulin Human Regular (Humulin R) 10 unit SUBCUT NOW ONE Stop: 12/07/18 03:17 Last Admin: 12/07/18 03:23 Dose: 10 unit Morphine Sulfate (Morphine) 4 mg IV NOW ONE Stop: 12/07/18 02:46 Last Admin: 12/07/18 03:07 Dose: Not Given Morphine Sulfate (Morphine) 4 mg IM NOW ONE Stop: 12/07/18 02:52 Last Admin: 12/07/18 03:06 Dose: 4 mg Vital Signs - 8 hr 12/07/18 00:39 12/07/18 02:33 12/07/18 03:27 Temperature 98 F Pulse Rate 90 84 104 H Respiratory Rate 20 18 18 Blood Pressure 159/102 H Blood Pressure [Left Arm] 156/96 H 118/73 Pulse Oximetry 96 97 96 MDM - Extremity Injury (Lower) Lab Data Attestation: I reviewed the patient's lab results. Result diagrams: 12/07/18 00:15 12/07/18 00:15 Lab Results 12/07/18 12/07/18 Range/Units 00:15 00:15 WBC 9.8 (4.5-11.0) X10^3/uL RBC 4.96 (4.0-5.2) X10^6/uL Hgb 14.8 (12.0-16.0) g/dL Hct 45.8 (36-46) % MCV 92.3 (80-100) fL MCH 29.9 (26-34) PG MCHC 32.4 (30-36) % RDW 15.4 H (11.6-14.8) % Plt Count 422 H (150-400) X10^3/uL Neut % (Auto) 66.4 (50-75) % Lymph % (Auto) 25.7 (25-40) % [place] % (Auto) 5.9 (3-14) % Eos % (Auto) 1.0 L (2-4) % Baso % (Auto) 1.0 (0-2) % Neut # (Auto) 6500 (3398-9058) /uL Lymph # (Auto) 2500 (7243-4999) /uL [place] # (Auto) 600 (0-900) /uL Eos # (Auto) 100 (0-450) /uL Baso # (Auto) 100 (0-100) /uL Sodium 129 L (137-145) mmol/L Potassium 5.4 H (3.4-5.1) mmol/L Chloride 89 L (98-107) mmol/L Carbon Dioxide 28 (22-32) mmol/L BUN 10 (7-17) mg/dL Creatinine 0.70 (0.52-1.04) mg/dL Estimated GFR > 60.0 (>60) mL/min BUN/Creatinine Ratio 14.3 (6-22) Glucose 794 H* (70-100) mg/dL Calcium 9.2 (8.4-10.2) mg/dL Imaging Data Pelvis x-ray: Attestation: I personally reviewed and interpreted this imaging study as follows: My impression: no acute fractures, no dislocation, CT scan pelvis: Radiologist's impression: acute nondisplaced right femur intertrochante keily fracture. Severely distended urinary bladder. Large colonic stool. MDM Narrative Medical decision making narrative: Patient's CT scan concerning for intertrochanteric fracture. Patient is also hyperglycemic. She states that she has not taken her insulin over the past couple days. Has a normal CO2 on her BMP. Low suspicion for DKA. Was given fluids. Was given 10 units of insulin subcu here in the ER. He has a distended urinary bladder. She states that she does not have any problems urinating. Has urinated several times here in the ER. A Valente catheter was placed secondary to this and also the hip fracture. Discussed the case with Dr. Celestin with Orthopedics who stated that he would come see the patient later this morning and plan on surgical intervention. Discussed the case with the night guidance and control system engineer who will admit the patient. Discussed the admission with the patient. She expressed understanding and agreement. Discharge Plan Departure Patient Disposition: Admitted As Inpatient Clinical Impression: Acute urinary retention, Hyperglycemia Closed hip fracture Qualifiers: Encounter type: initial encounter Laterality: right Qualified Code(s): S72.001A - Fracture of unspecified part of neck of right femur, initial encounter for closed fracture
--- NOTE | 2018-12-07 01:42 | DI.CT.S_ITS ---
PROCEDURE: CT PEL WO CON INDICATIONS: FALL WITH RIGHT PELVIC AND HIP PAIN TECHNIQUE: Noncontrast 3 mm axial sections acquired through the bony pelvis, with coronal and sagittal reformatting. COMPARISON: [facility], CR, XR PELVIS 1-2V, 12/07/2018, 0:49. FINDINGS: Image quality: Excellent. Bones: There is a nondisplaced intertrochanteric fracture of the right proximal femur. The pelvic rings are intact. Soft tissues: Distended ureter bladder. Uterus is unremarkable. No adnexal mass. No pathological free fluid. There is large amount stool in colon. IMPRESSION: 1. Nondisplaced intertrochanteric fracture of the right proximal femur. 2. Distended bladder. 3. A large amount of stool in colon. No significant discrepancy with the shift production supervisor radiology preliminary report. Dictated by: Ina Michel M.D. on 12/07/2018 at 7:28 Approved by: Ina Michel M.D. on 12/07/2018 at 7:33
[2018-12-07 02:49] LABS: Add Manual Diff / Slide Review NO; Basophils Absolute Auto 100 /uL (0-100); Eosinophils Absolute Auto 100 /uL (0-450); Hematocrit 45.8 % (36-46); Hemoglobin 14.8 g/dL (12.0-16.0); Lymphocytes Absolute Auto 2500 /uL (1100-4500); Lymphocytes Percent Auto 25.7 % (25-40); Mean Corpuscular HGB Conc 32.4 % (30-36); Mean Corpuscular Hemoglobin 29.9 PG (26-34); Mean Corpuscular Volume 92.3 fL (80-100); Monocytes Absolute Auto 600 /uL (0-900); Monocytes Percent Auto 5.9 % (3-14); Neutrophils Absolute Auto 6500 /uL (1500-7000); Neutrophils Percent Auto 66.4 % (50-75); Platelet Count 422 X10^3/uL (150-400); Red Blood Cell Count 4.96 X10^6/uL (4.0-5.2); Red Cell Distribution Width 15.4 % (11.6-14.8); White Blood Cell Count 9.8 X10^3/uL (4.5-11.0)
[2018-12-07 02:54] LABS: BUN Creatinine Ratio 14.3 (6-22); Blood Urea Nitrogen 10 mg/dL (7-17); Calcium 9.2 mg/dL (8.4-10.2); Carbon Dioxide 28 mmol/L (22-32); Chloride 89 mmol/L (98-107); Estimated Glomerular Filt Rate > 60.0 mL/min (>60); HEMOLYSIS 26 (0-50); Sodium 129 mmol/L (137-145)
[2018-12-07 02:55] LABS: Potassium 5.4 mmol/L (3.4-5.1)
--- NOTE | 2018-12-07 03:03 | PC.NURSE ---
The medics iv in rac was not patent and d/cd patent and intact.
[2018-12-07] MEDS: MORPHINE 4 MG/ML INJ IM (03:06)
[2018-12-07 03:10] LABS: Glucose 794 mg/dL (70-100)
[2018-12-07] MEDS: INSULIN REGULAR 100 UNIT/ML 3 ML VIAL 10 UNIT SUBCUT (03:23)
--- NOTE | 2018-12-07 03:25 | PC.NURSE ---
Urinary cath placed in ED by [employer] child care attendant.
[2018-12-07] MEDS: SODIUM CHLORIDE 0.9% 1,000 ML 125 ML IV (03:35)
[2018-12-07 03:50] LABS: Ketones (Beta-Hydroxybutyrate) 0.18 mmol/L (<0.27)
--- NOTE | 2018-12-07 04:01 | PC.NURSE ---
She had with her her clothes and glasses on admission to floor.
[2018-12-07] MEDS: HYDROMORPHONE 0.5 MG INJ IV ×4 (04:21→22:48)
--- NOTE | 2018-12-07 04:42 | P.HP_ITS ---
History of Present Illness Date Patient Seen: 12/07/18 Time Patient Seen: 04:40 Chief complaint: GLF, hip pain Narrative: The patient is a 43-year-old female w/ PMH of DM 1T, lupus, fibromyalgia, chronic pancreatitis, osteoporosis, GERD, and chronic pain. Patient presented to the ED on 12/07/17 with right hip pain. Patient sustained a ground level fall. She was trying to get out of bed, her leg got caught in a blanket, she reports hopping and trying to maintain balance but ended up falling and landing onto her right hip. Unable to get up on her own. CT of the hip revealed right intertrochanteric fracture. No prior fractures or surgeries in the past. Patient has a history of diabetes mellitus type 1. Diabetes is uncontrolled. Reports lack of adherence with insulin due to frustration associated with frequent fingersticks. 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 Notes elevated blood glucose usually; however, more so in the past 2-3 weeks. Denies fever and chills. Two weeks ago had a sinus infection and one week ago a UTI. Currently, associated symptoms include polyuria and nausea. Reports chronic pain associated with chronic pancreatitis, fibromyalgia, and lumbar pain. Notes baseline pain level to be 5-6/10. [employer] pain is managed with Ibuprofen 400 mg Q6H, gabapentin 800 mg Q8H, cyclobenzaprine 10 mg TID, and Tramadol 50 mg daily. Patient History Medical History Gastroesophageal reflux disease (Acute) Insulin dependent diabetes mellitus (Acute) Lupus (Acute) Osteoporosis (Acute) Surgical History No pertinent past surgical history (Acute) Family History Mother Diabetes mellitus Congestive heart failure Pancreatic cancer Father Diabetes mellitus Brother Diabetes mellitus Pancreatitis Sister Drug overdose Social History household members: family Smoking Status: Current every day smoker alcohol intake: current Family & Social History Social History: household members family Tobacco & Substance use: alcohol intake current alcohol intake frequency holiday/special occasion Meds Home Medications Medication Instructions Recorded Confirmed Type omeprazole 20 mg PO QDAY #0 10/09/12 02/08/18 History bupropion HCl [Wellbutrin SR] 150 mg PO BID #0 09/13/16 02/08/18 History ondansetron [Zofran ODT] 4 mg SUBLINGUAL Q4HP PRN 02/08/18 02/08/18 History insulin aspart U-100 [Novolog 0 unit SUB-Q AC #3 unit 02/12/18 Rx Flexpen U-100 Insulin] Allergies Allergy/AdvReac Type Severity Reaction Status Date / Time sulfasalazine [SULFASALAZINE] Allergy Mild PANCREATITI Verified 02/08/18 16:35 S trazodone AdvReac Intermediate HEART Verified 02/08/18 16:35 PALPITATIONS Review of Systems Review of Systems All systems reviewed & are unremarkable except as noted in HPI and below Exam Vital Signs (past 8 hours): - 12/07/18 00:39 12/07/18 02:33 12/07/18 03:27 Temperature 98 F Pulse Rate 90 84 104 H Respiratory Rate 20 18 18 Blood Pressure 159/102 H Blood Pressure [Left Arm] 156/96 H 118/73 Pulse Oximetry 96 97 96 Oxygen Delivery Method Room Air Objective Labs Result Diagrams: 12/07/18 00:15 12/07/18 00:15 Labs: Laboratory Results - last 24 hr 12/07/18 12/07/18 12/07/18 00:15 00:15 00:15 WBC 9.8 RBC 4.96 Hgb 14.8 Hct 45.8 MCV 92.3 MCH 29.9 MCHC 32.4 RDW 15.4 H Plt Count 422 H Neut % (Auto) 66.4 Lymph % (Auto) 25.7 [place] % (Auto) 5.9 Eos % (Auto) 1.0 L Baso % (Auto) 1.0 Neut # (Auto) 6500 Lymph # (Auto) 2500 [place] # (Auto) 600 Eos # (Auto) 100 Baso # (Auto) 100 Sodium 129 L Potassium 5.4 H Chloride 89 L Carbon Dioxide 28 BUN 10 Creatinine 0.70 Estimated GFR > 60.0 BUN/Creatinine Ratio 14.3 Glucose 794 H* Calcium 9.2 Ketones 0.18 Blood Type Antibody Screen 12/07/18 02:52 WBC RBC Hgb Hct MCV MCH MCHC RDW Plt Count Neut % (Auto) Lymph % (Auto) [place] % (Auto) Eos % (Auto) Baso % (Auto) Neut # (Auto) Lymph # (Auto) [place] # (Auto) Eos # (Auto) Baso # (Auto) Sodium Potassium Chloride Carbon Dioxide BUN Creatinine Estimated GFR BUN/Creatinine Ratio Glucose Calcium Ketones Blood Type O Positive Antibody Screen Negative Assessment & Plan Assessment & Plan narrative: Right Hip Closed Fracture, acute, present on admission - consult Orthopedic surgery, Dr. Celestin notified in ED - neurovascular checks Q4H - pain control - bedrest - NPO, surgery anticipated this afternoon - supportive care - will need DVT prophylaxis starting post-op, scheduled for prophylactic lovenox at 2100 on 12/07/18 - will need PT/OT starting post-op (not ordered) DM 1T (uncontrolled, insulin dependent) w/ hyperglycemia BG 794, Na 129, Cl 89, K 5.4, CO2 28, calculated AG 12 (no anion gap) Does not appear to be in DKA Received 10 units of insulin in ED - obtain UA results reviewed: glucosuria 3+ and proteinuria 1+; no urine ketones - currently NPO, glucose checks Q6H - SSI starting at noon - blood glucose upon arrival from ED in the upper 300 range, no further correction needed, patient started on IVF BG at 0600 183, rapidly dropping, Q1H checks x4, monitor for hypoglycemia, discussed w/ patient's RN Hypovolemia 2/2 hyperglycemia, dehydration and osmotic diuresis - IVF NS at 125 ml/hr - Repeat lab at 10 am, BMP and Mg - Correct e-lyte abnormalities Acute pain due to injury Received 4 mg of morphine in ED and 0.5 mg IV dilaudid upon presentation to the floor (refused to be transferred to bed unless pain med given) H/o chronic pain r/t fibromyalgia, chronic back pain and chronic pancreatitis. Notes overall baseline pain level of 5-6/10 - resume gabapentin at a reduced dose of 800 mg TID - resume flexeril - morphine 4 mg Q4H prn pain x4 doses, then will plan to change to oral pain control - received toradol 30 mg x1 at 0600
[2018-12-07 05:01] LABS: Bacteria Urine None Seen; RBC Urine None Seen (0-5/HPF); WBC Urine None Seen (0-5/HPF)
[2018-12-07 05:02] LABS: Appearance Urine UA CLEAR; Bilirubin Urine UA NEGATIVE (NEGATIVE); Glucose Urine UA 3+ g/dL (Negative); Ketones Urine UA NEGATIVE (NEGATIVE); Leukocyte Esterase Urine UA NEGATIVE (NEGATIVE); Nitrite Urine UA NEGATIVE (Negative); Occult Blood Urine UA TRACE-INTACT (Negative); Protein Urine UA 1+ (Negative); Specific Gravity Urine UA <=1.005 (1.000-1.035); Urobilinogen Urine UA 0.2 E.U./dL (0.2); pH Urine UA 7.5 (4.5-8.0)
[2018-12-07 05:04] LABS: Color Urine UA STRAW
[2018-12-07 05:21] LABS: Culture Indicated Urine Cult Not Indicated; Squamous Epithelial Cell Urine 0-1 /HPF
[2018-12-07] MEDS: KETOROLAC 30 MG/ML VIAL IV (06:02)
--- NOTE | 2018-12-07 06:37 | PC.NURSE ---
[id number] Pt. admitted from ER with Rt. hip fracture, crying & screaming when we tried to moved her from the rney to her bed. medicated with 0.5 mg of Dilaudid IVP & after 30-45 mins. she still having a pain scale of 8/10. Hospitalist Kacy ordered to give her Toradol 30 mg. IVP & admin. She finally able to rest & pain level is down to 5/10. Will cont. POc & monitor.
--- NOTE | 2018-12-07 06:54 | PM.CN ---
History of Present Illness Date Patient Seen: 12/07/18 Time Patient Seen: 06:55 Chief complaint: GLF, hip pain Reason for consult: R hip fx Requesting provider: Patel Mendes Narrative: 43-year-old female with right hip pain. She tried to get out of bed around midnight and caught her feet in the sheets and fell out of bed landing directly on the lateral aspect of her right hip. She did not hit her head or lose consciousness. She feels like she twisted her knee a little bit as well but that discomfort is minimal. All the pain is over the lateral hip. She is only comfortable with it flexed up. Denies any numbness or tingling in the leg. She was unable to ambulate and the emergency services brought her in to the hospital where she was found have a nondisplaced intertrochanteric hip fracture on CT scan. She is a type 1 diabetic and has not taken her insulin for several days. Her glucose was over 700 in the emergency room but it is down to 183 on her last fingerstick. She also has a history of lupus, fibromyalgia, chronic pancreatitis, and chronic low back pain. [facility] Medical History Gastroesophageal reflux disease (Acute) Insulin dependent diabetes mellitus (Acute) Lupus (Acute) Osteoporosis (Acute) Surgical History No pertinent past surgical history (Acute) Family History Mother Diabetes mellitus Congestive heart failure Pancreatic cancer Father Diabetes mellitus Brother Diabetes mellitus Pancreatitis Sister Drug overdose Social History household members: family Smoking Status: Current every day smoker alcohol intake: current Family History Mother Diabetes mellitus Congestive heart failure Pancreatic cancer Father Diabetes mellitus Brother Diabetes mellitus Pancreatitis Sister Drug overdose Social History household members: family Smoking Status: Current every day smoker alcohol intake: current Meds Home Medications Medication Instructions Recorded Confirmed Type omeprazole 20 mg PO QDAY #0 10/09/12 12/07/18 History bupropion HCl [Wellbutrin SR] 150 mg PO BID #0 09/13/16 12/07/18 History ondansetron [Zofran ODT] 4 mg SUBLINGUAL Q4HP PRN 02/08/18 12/07/18 History insulin aspart U-100 [Novolog 0 unit SUB-Q AC #3 unit 02/12/18 12/07/18 Rx Flexpen U-100 Insulin] Allergies Allergy/AdvReac Type Severity Reaction Status Date / Time sulfasalazine [SULFASALAZINE] Allergy Mild PANCREATITI Verified 02/08/18 16:35 S trazodone AdvReac Intermediate HEART Verified 02/08/18 16:35 PALPITATIONS Review of Systems Constitutional Constitutional: Denies chills and Denies fever(s) ENT Ears, Nose, Mouth, and Throat: No dizziness Cardiovascular Cardiovascular: Denies chest pain Respiratory Respiratory: Denies cough and Denies wheezing Gastrointestinal Gastrointestinal: Denies abdominal pain Genitourinary Genitourinary: Denies urinary incontinence Musculoskeletal Musculoskeletal: Reports back pain Neurologic Neurologic: Denies dizziness Hematologic/Lymphatic Hematologic/Lymphatic: Denies easy bleeding Allergic/Immunologic Allergic/Immunologic: Denies wheezing Exam Vital Signs (past 8 hours): - 12/07/18 00:39 12/07/18 02:33 12/07/18 03:27 Temperature 98 F Pulse Rate 90 84 104 H Respiratory Rate 20 18 18 Blood Pressure 159/102 H Blood Pressure [Left Arm] 156/96 H 118/73 Pulse Oximetry 96 97 96 12/07/18 04:15 12/07/18 05:28 12/07/18 06:47 Temperature 98.7 F 98.7 F Pulse Rate 112 H 112 H Respiratory Rate 24 24 Blood Pressure 128/85 128/85 Blood Pressure [Left Arm] Pulse Oximetry 100 100 98 Oxygen Delivery Method Room Air Oxygen Flow Rate 0 Const Orientation: alert and oriented x3 Other: Laying comfortably in bed Resp Auscultation: clear to auscultation bilaterally Cardio Rate: regular rate Rhythm: regular rhythm Extrem Other: Hip flexed forward and slightly internally rotated. Very tender over the greater trochanter. Integument intact. Nontender to palpation over the knee with comfortable range of motion of the knee. Using moves ankle and toes up and down. Intact sensation through the leg. 2+ distal pulse. Objective Labs Result Diagrams: 12/07/18 00:15 12/07/18 00:15 Labs: Laboratory Results - last 24 hr 12/07/18 12/07/18 12/07/18 00:15 00:15 00:15 WBC 9.8 RBC 4.96 Hgb 14.8 Hct 45.8 MCV 92.3 MCH 29.9 MCHC 32.4 RDW 15.4 H Plt Count 422 H Neut % (Auto) 66.4 Lymph % (Auto) 25.7 [place] % (Auto) 5.9 Eos % (Auto) 1.0 L Baso % (Auto) 1.0 Neut # (Auto) 6500 Lymph # (Auto) 2500 [place] # (Auto) 600 Eos # (Auto) 100 Baso # (Auto) 100 Sodium 129 L Potassium 5.4 H Chloride 89 L Carbon Dioxide 28 BUN 10 Creatinine 0.70 Estimated GFR > 60.0 BUN/Creatinine Ratio 14.3 Glucose 794 H* Calcium 9.2 Urine Color Urine Appearance Urine pH Ur Specific [place] Urine Protein Urine Glucose (UA) Urine Ketones Urine Occult Blood Urine Nitrate Urine Bilirubin Urine Urobilinogen Ur Leukocyte Esterase Urine RBC Urine WBC Ur Squamous Epith Cells Urine Bacteria Urine Yeast Ur Culture Indicated? Ketones 0.18 Blood Type Antibody Screen 12/07/18 12/07/18 02:52 04:55 WBC RBC Hgb Hct MCV MCH MCHC RDW Plt Count Neut % (Auto) Lymph % (Auto) [place] % (Auto) Eos % (Auto) Baso % (Auto) Neut # (Auto) Lymph # (Auto) [place] # (Auto) Eos # (Auto) Baso # (Auto) Sodium Potassium Chloride Carbon Dioxide BUN Creatinine Estimated GFR BUN/Creatinine Ratio Glucose Calcium Urine Color Straw Urine Appearance Clear Urine pH 7.5 Ur Specific [place] <=1.005 Urine Protein 1+ H Urine Glucose (UA) 3+ H Urine Ketones Negative Urine Occult Blood Trace-intact Urine Nitrate Negative Urine Bilirubin Negative Urine Urobilinogen 0.2 Ur Leukocyte Esterase Negative Urine RBC None seen Urine WBC None seen Ur Squamous Epith Cells 0-1 /hpf Urine Bacteria None seen Urine Yeast 1-5/hpf H Ur Culture Indicated? Cult not indicated Ketones Blood Type O Positive Antibody Screen Negative Assessment & Plan Assessment & Plan narrative: 1. Nondisplaced right hip intertrochanteric fracture. I have explained the patient that she is at a high risk for this displacing with weight-bearing. I recommend ORIF to stabilize this so she can be weight-bearing as tolerated and that should heal uneventfully. Risks and benefits of surgery were discussed including but not limited to medical risks with heart attack, stroke, DVT, PE, , infection, bleeding, scarring, nonunion, malunion, loss of ambulatory status, stiffness, need for further surgery. She understands and appropriate consents were obtained. We will plan on this this afternoon if she is medically stable. 2. Uncontrolled diabetes. She is now on insulin her blood sugar was 183. This seems to be in a much more stable safe zone and we will continue with diabetic management per Medicine.
--- NOTE | 2018-12-07 08:34 | PC.NURSE ---
Addendum entered by Sonia Sanches R.N. 12/07/18 14:16: late entry; approx 400 cc's light michelle urine noted to be in wright as patient left unit Original Note: Addendum entered by Sonia Sanches R.N. 12/07/18 13:30: patient given now dose 2mg morphine for 8/10 pain. patient has been tearful today, but states she is also sad, from a lot of drama with one of her relatives, reports anxiety over the procedure. taken to OR at 1330. Original Note: NOTIFIED OF BG DROP FROM 794 IN ER TO 114 AT 0800. ASYMPTOMATIC. CHANGED IVF ORDER TO D5 1/2 NS AT 50CC/HR. MD NOTIFIED LAST NA+ LEVEL 129. NEW ORDER FOR IVF ACCEPTABLE WITH NA+ LEVEL OF SAME, PER MD. BP 91/64 HR 112. MORPHINE IV ORDER CHANGED TO 2MG IV Q 4HR PRN. PATIENT RATES PAIN 8/10. DOES NOT APPEAR DISTRESSED. APPEARS SLIGHTLY DROWSY, BUT STATES DIDN'T SLEEP WELL. DENIES ABD PAIN, NAUSEA, VOMITING, LIGHTHEADEDNESS, WEAKNESS.
[2018-12-07] MEDS: DEXTROSE 5%-0.45% NS 1,000 ML 50 ML IV ×2 (08:45→16:15)
[2018-12-07] MEDS: MORPHINE 2 MG/ML INJ IV ×3 (08:45→13:23)
[2018-12-07] MEDS: PANTOPRAZOLE 40 MG VIAL IV (08:52)
[2018-12-07] MEDS: GABAPENTIN 400 MG CAPSULE 800 MG PO (08:52)
--- NOTE | 2018-12-07 09:17 | CM.DANOTE ---
Addendum entered by Laya Duarte R.N. 12/07/18 09:54: Spoke to her cousin, Katerina. She stated that she helps patient out with her shopping. Stated that she has not had history of any other falls. Original Note: DCP: Case received, EMR reviewed and met with patient. Introduced self and role. DCP template completed with information currently available, as well as by patient. PCP: Dr. Dee/[facility] Payer: confirmed: Medicaid/[facility] Patient came to hospital via ambulance due to hip pain. Apparently, she had a ground level fall, she had gotten her foot caught in the blanket and landed on her hip. Patient has closed R. hip Fracture. She will be having an ORIF today, and according to notes, should be partial weight bearing after the surgery. Patient has history of Diabetes type 1, and had not been checking her blood sugars. Her blood sugar when she came in was 700. Patient also has history of Lupus, Pancreatitis. She is a smoker. Met with her, she is alert and oriented. She does not drive, and lives with her cousins at home. She has been independent in the home setting. Asked her if she checked her blood sugars at home, and she stated that she does. She also stated that she has not seen Dr. Dee in quite sometime, but goes to the [facility]. P:DCP to follow closely. Will be having her surgery today. Will see how she does with physical therapy afterward. Laya Duarte RN/[employer]
[2018-12-07] MEDS: CYCLOBENZAPRINE 10 MG TABLET PO (10:14)
[2018-12-07 12:50] LABS: Blood Urea Nitrogen 10 mg/dL (7-17); Calcium 8.4 mg/dL (8.4-10.2); Carbon Dioxide 29 mmol/L (22-32); Chloride 98 mmol/L (98-107); Estimated Glomerular Filt Rate > 60.0 mL/min (>60); Glucose 195 mg/dL (70-100); Magnesium 2.2 mg/dL (1.6-2.3); Sodium 136 mmol/L (137-145)
[2018-12-07 12:55] LABS: HEMOLYSIS 62 (0-50); Potassium 4.5 mmol/L (3.4-5.1)
[2018-12-07] MEDS: INSULIN ASPART 100 UNIT/ML INSULN PEN SUBCUT (12:59)
--- NOTE | 2018-12-07 13:46 | PM.PREOP ---
Pre-operative Note Interval Note History & Physical reviewed/Exam performed by Physician: Yes Changes to H&P: No
[2018-12-07] MEDS: LACTATED RINGERS 1,000 ML 42 ML IV (14:00)
[2018-12-07] MEDS: INSULIN ASPART 100 UNIT/ML 10ML VIAL SUBCUT (14:04)
[2018-12-07] MEDS: CEFAZOLIN 2 GM/100 ML FROZ.PIGGY IV ×2 (14:17→21:14)
--- NOTE | 2018-12-07 14:24 | P.OP_ITS ---
Operative Date/Time/Diagnoses Date of procedure: 12/07/18 Time of procedure: 15:49 Pre-op diagnosis: nondisplaced Right intertrochanteric hip fracture Post-op diagnosis: same Procedure & Clinicians Procedure: ORIF of right intertrochanteric hip fracture with plate/screw device Same procedure as scheduled: Yes Indications: 43-year-old female that fell sustaining a nondisplaced intertrochanteric hip fracture. It was felt that she would benefit from operative stabilization. Risks and benefits of surgery were discussed appropriate consents obtained. Surgeon: Jhonny Celestin Click Yes if Unassisted: Yes Anesthesia Type: General Operative Notes Findings: None Closure Type: primary Specimen(s): none sent Prosthetic devices, grafts, tissues, transplants, or devices: Synthes DHS Applied: catheter Estimated Blood Loss (mL): 30 Procedure in detail: Patient was brought to the operating room and intubated on the stretcher. Time-out was performed. Preoperative antibiotics were given. They were then transferred to the fracture table. She was positioned on the fracture table and attention was turned towards the well-marked right leg. The right leg was prepped and draped in the standard sterile fashion. Using fluoro for localization, a 12 cm longitudinal incision was made just distal to the greater trochanter. We used Bovie to come down to and split the fascia. The vastus lateralis was exposed and the muscle was split. We exposed the bone. The drill guide was positioned and checked under x-ray and then we advanced a guidewire up the femoral neck into the head. Position was confirmed on two views of fluoroscopy. We then measured and reamed under fluoro. We then placed our 80 mm length hip screw. We then placed a 4 hole plate over the screw and fixed it to the femoral shaft with standard AO technique. Final x-rays were taken. The wound was irrigated. The vastus and then the fascia were closed. A deep drain was placed. Superficial and skin were closed. Sterile dressing was plac ed. They were then extubated and brought to the recovery room with no complications. Complications: none Condition: stable Disposition: PACU Plan for aftercare: Inpatient. Weight bear as tolerated
--- NOTE | 2018-12-07 14:53 | SUR.OPER ---
Head on pillow. Supine on hanatable with operative leg secured in traction, non operative leg in boot and susperded on hana table arm. Arms across chest, secured with sheet.
[2018-12-07] MEDS: BUPIVACAINE 0.5% W/ EPI (PF) VIAL 30 ML INJ (15:02)
[2018-12-07] MEDS: HYDROMORPHONE 2 MG INJ 0.25 MG IV ×5 (15:50→17:02)
--- NOTE | 2018-12-07 16:00 | DI.RAD.S_ITS ---
PROCEDURE: XR HIP W PEL IF DONE RT 3V INDICATIONS: RIGHT HIP REPAIR TECHNIQUE: 3 view(s) of the hip acquired. COMPARISON: [facility], CR, XR PELVIS 1-2V, 12/07/2018, 0:49. [facility], CT, CT PEL WO CON, 12/07/2018, 1:50. FINDINGS: 2 intraoperative images demonstrate open reduction and internal fixation of right femoral neck fracture. IMPRESSION: ORIF of right femoral neck fracture. Dictated by: Ina Michel M.D. on 12/07/2018 at 16:35 Approved by: Ina Michel M.D. on 12/07/2018 at 16:37
--- NOTE | 2018-12-07 16:18 | SUR.PHASEI ---
CBG 58 Dr Posada notified by Susy SLOAN, instructed to restart D5 1/2 NS at 50 mls, D5 1/2 ns hung. Dilaudid given for pain. Pt quiet, then wakes and chet,states pain 7/10
[2018-12-07] MEDS: LORazepam 2 MG/ML SYRINGE 0.5 MG IV (16:57)
[2018-12-07] MEDS: fentaNYL 100 MCG/2 ML INJ 50 MCG IV (17:11)
--- NOTE | 2018-12-07 17:55 | SUR.PHASEI ---
Blood sugar rechecked, 52, pt alert and oriented, given pudding, attempted to find Dr. Posada, IV fluids increased. Blood sugare rechecked was 136, Dr Posada to bed side aware. No new orders. Pt medicated for pain with dilaudid, fentanyl and lorazepam for anxiety. Pt would sleep restfully between care, when awakened pt would cry and rate pain 8/10. Flaac rated at 3/10. Pt transported to back to room, dressing t r hip reain c/d/i. Neuro to r leg as assessed. Pt left in stable condition.
[2018-12-07] MEDS: LACTATED RINGERS 1,000 ML 125 ML IV (18:08)
[2018-12-07] MEDS: OXYCODONE IR 10 MG TABLET PO (19:19)
[2018-12-07] MEDS: DEXTROSE 5%-NS W/KCL 20MEQ 1,000 ML 100 MEQ IV (20:02)
[2018-12-07] MEDS: buPROPion SR 150 MG TAB PO (21:12)
[2018-12-07] MEDS: DOCUSATE 100 MG CAPSULE PO (21:12)
[2018-12-07] MEDS: ACETAMINOPHEN 325 MG TABLET 975 MG PO (21:12)
[2018-12-07] MEDS: INSULIN GLARGINE 100 UNIT/ML 3ML PEN 20 UNIT SUBCUT (21:13)
[2018-12-07] MEDS: LORazepam 0.5 MG TABLET PO (21:23)
--- NOTE | 2018-12-07 21:33 | PC.NURSE ---
Safe hand off from PACU at 1745, rgt ORIF procedure, hemovac in place, SCD's applied. Incentive Spirometry encouraged. Pt is on room air, 98% o2, lung sounds clear. Pulse rate hovering in the 115's, BP 113/80. Pt. has been vacillating with blood sugar levels, Dr. Tabares ordered Dextrose 5%-NS w/kcl to help keep blood sugar stabilize. Pain level has been a constant 6-7/10. Medicated w/ Oxycodone 10mg q3 hr and hydromorphone IV push 0.5mg
--- NOTE | 2018-12-07 22:26 | PC.NURSE ---
Rhea shift note: Clarified blood glucose monitoring with Kacy ARMIJO. Continue to monitor CBG every hour. Lantus added to regimen, administered this evening shift. Per Provider, no short acting coverage until further order. Will continue to monitor glucose levels closely, and s/sx of hypo/hyperglycemia.
[2018-12-08] VITALS (7 sets, daily range): BP systolic 97–127; BP diastolic 59–88; PULSE 103–121; RESP 15–22; TEMP 36.2–37.3; O2SAT 95–100
[2018-12-08] MEDS: HYDROMORPHONE 0.5 MG INJ IV ×11 (00:59→20:39)
[2018-12-08] MEDS: OXYCODONE IR 10 MG TABLET PO ×7 (01:00→22:46)
[2018-12-08] MEDS: CEFAZOLIN 2 GM/100 ML FROZ.PIGGY IV (05:57)
[2018-12-08] MEDS: PANTOPRAZOLE 20 MG TABLET PO (06:00)
[2018-12-08 07:11] LABS: Hematocrit 34.4 % (36-46); Hemoglobin 11.2 g/dL (12.0-16.0)
[2018-12-08] MEDS: ACETAMINOPHEN 325 MG TABLET 975 MG PO ×3 (07:36→20:07)
[2018-12-08] MEDS: DOCUSATE 100 MG CAPSULE PO ×2 (07:37→20:07)
[2018-12-08] MEDS: ENOXAPARIN 30 MG/0.3 ML SYRINGE SUBCUT ×2 (07:38→20:06)
[2018-12-08] MEDS: DEXTROSE 5%-NS W/KCL 20MEQ 1,000 ML 100 MEQ IV (07:38)
--- NOTE | 2018-12-08 08:21 | P.PN_ITS ---
Subjective Date Patient Seen: 12/08/18 Time Patient Seen: 08:20 Interval history: Still having significant pain in the right hip Exam Vital Signs (past 8 hours): - 12/08/18 03:00 Temperature 97.2 F L Pulse Rate 103 H Respiratory Rate 22 Blood Pressure 105/72 Pulse Oximetry 96 Oxygen Delivery Method Nasal Cannula Oxygen Flow Rate 0 Const Orientation: alert and oriented x3 Extrem Other: Dressing CDI. Soft calf. She easily wiggles toes, 2+ distal pulse. 0 mL drain output Objective Labs Result Diagrams: 12/08/18 06:35 12/07/18 11:15 Labs: Laboratory Results - last 24 hr 12/07/18 12/08/18 11:15 06:35 Hgb 11.2 L Hct 34.4 L Sodium 136 L Potassium 4.5 Chloride 98 Carbon Dioxide 29 BUN 10 Creatinine 0.40 L Estimated GFR > 60.0 BUN/Creatinine Ratio 25.0 H Glucose 195 H D Calcium 8.4 Magnesium 2.2 Assessment & Plan Post-op Postoperative Procedures Operation Date: 12/07/18 14:15 Actual Procedures Side Surgeon p ORIF Hip DHS Right Jhonny Celestin MD Stable after ORIF of the right hip fracture. Mobilize with physical therapy over the next few days. May need to consider custodial. Quality VTE Deep Vein Thrombosis/Pulmonary Embolism Present on Admission: No
--- NOTE | 2018-12-08 10:25 | PT.IIE ---
Current Diagnoses Nondisplaced intertrochanteric fracture of right femur, initial encounter for closed fracture (12/07/18) Surgery Performed Operation Date: 12/07/18 14:15 Actual Procedures p ORIF Hip DHS(Right) - Jhonny Celestin MD Surgical History (Last Reviewed 12/07/18 @ 06:57 by Jhonny Celestin MD) No pertinent past surgical history (Acute) Medical History (Last Reviewed 12/07/18 @ 06:57 by Jhonny Celestin MD) Gastroesophageal reflux disease (Acute) Insulin dependent diabetes mellitus (Acute) Lupus (Acute) Osteoporosis (Acute) Physical Therapy Inpatient Evaluation/Re-Eval M1 PT/OT-IP Prior Functional Status Start: 12/08/18 08:15 Freq: NEEDED Status: Active Protocol: Document 12/08/18 10:27 DLM (Rec: 12/08/18 10:42 DL [id number]) Medical Review Prior Functional Status Medical History Reviewed Yes Diet/Fluid Consistency Regular Communication WNL Mobility and Gait Independent without device Activities of Daily Living and IADL's Independent, chronic pain, Cousin helps with shopping Prior Functional Level (Other details) does not drive Social History Household Members family Living Arrangements House Number of Floors (Floors) One Floor Number of Stairs To Enter/Railing? ramp Employment Status Unemployed M2 PT-IP Current Condition Start: 12/08/18 08:15 Freq: NEEDED Status: Active Protocol: Document 12/08/18 10:27 DLM (Rec: 12/08/18 10:42 DL [id number]) Physical Therapy Current Condition Current Condition Evaluation Date 12/08/18 Treatment Diagnosis right hip ORIF, fall with fracture, impaired gait Onset Date 12/07/18 Weight Bearing Status Weight Bearing Status Weight Bear as Tolerated M3 PT-IP Subjective Start: 12/08/18 08:15 Freq: NEEDED Status: Active Protocol: Document 12/08/18 10:27 DLM (Rec: 12/08/18 10:42 DL [id number]) Subjective Physical Therapy Visit Type Type Initial Evaluation Visit Start Time 09:55 Visit Stop Time 10:25 Total Visit Minutes 30 Number of CERTIFIED SURGICAL TECHNICIAN Visits 0 Physical Therapy Visit Comments Patient Comments She is hurting Patient Goals feel better Therapy Pain Assessment Pain When Pain Assessed At Rest Pain Present Pain Present Pain Reported Location Right Hip Intensity 9 Scale Used Numeric (1 - 10) Description Aching Pain Behaviors Calling Out Crying Facial Grimacing Guarding Wincing Pain Management Techniques Apply Cold Re-positioning Timing of Activity with Medications M4 PT-IP Mobility and Gait Start: 12/08/18 08:15 Freq: NEEDED Status: Active Protocol: Document 12/08/18 10:27 DL (Rec: 12/08/18 10:42 [facility] [id number]) PT-Bed Mobility Assessment Supine to Sit Supine to Sit Minimal Assistance Scooting Scooting to Edge of Bed Standby Assistance PT-Transfer Assessment Sit to and From Stand Sit to and from Stand Minimal Assistance Use of Upper Extremities Equipment Transfer Assistive Device Front Wheeled Walker Transfers Transfer Destination Chair Transfer Technique Stand Step Pivot Transfer Ability Level of Assist Minimal Assistance Use of Upper Extremities Comments Mobility Comments increased pain reported with all movements Gait Assessment Gait Gait Assistance Required: Contact Guard Assist Minimum Assistance Distance (Feet) 4 Able to Maintain Weight Bearing Status Yes During Gait Assistive Devices Assistive Device Gait Belt Front Wheeled Walker Gait Deviations General Gait Pattern Antalgic Decreased Stride Length Factors Limiting Gait Function Factors Limiting Gait Function Decreased Activity Tolerance Decreased Strength Pain Comments Gait Comments she is able to bear weight on UE's on the fWW to help manage her right LE pain/weakness PT-Balance Assessment Sitting Balance and Reactions Static Sitting Balance Ability Good Standing Balance and Reactions Static Standing Balance Ability Fair Dynamic Standing Balance Ability Fair Device Used FWW M5 PT-IP Objective Assessments Start: 12/08/18 08:15 Freq: NEEDED Status: Active Protocol: Document 12/08/18 10:27 DL (Rec: 12/08/18 10:42 [facility] [id number]) Orientation Orientation/Cognition Level of Alertness Alert Orientation Name Age Birthday Month Date Year Day of Week Place Situation Language Function Ability No Deficits Noted Safety Awareness Understands Safety Issues Memory Description No Deficits Noted Comments she has difficulty concentration due to her pain Gross Range of Motion Upper Extremity ROM Assessment Within Functional Limits Impairments hx of bursitis in right shoulder Lower Extremity ROM Assessment Right Impaired Impairments pain limits all right hip motions Strength Upper Extremity Strength Assessment Within Functional Limits Shoulder hx right shoulder pain with increased use Lower Extremity Strength Assessment Right Impaired Hip flexion- she can not lift foot off floor, pain limits all Knee pain limits use, ext 2+/5 Ankle moving actively Comments Strength Comments pain in right hip area limits all activity Coordination Assessment Gross Coordination Gross Coordination WNL Sensation Assessment Sensation Gross Sensation Right LE Impaired Left LE Impaired Light Touch Impaired Sensation Description Numbness Pain Comments Sensation Comments hx of neuropathy in feet Muscle Tone Muscle Tone WNL Yes M6 PT-IP Treatment Start: 12/08/18 08:15 Freq: NEEDED Status: Active Protocol: Document 12/08/18 10:27 DLM (Rec: 12/08/18 10:42 DLM [id number]) Physical Therapy Treatment Education Education Provided Weight Bearing Status Safety Other Treatments Other Treatment Performed she was not able to participate in exercises this visit due to her pain M7 PT-IP Assessment and Plan Start: 12/08/18 08:15 Freq: NEEDED Status: Active Protocol: Document 12/08/18 10:27 DLM (Rec: 12/08/18 10:42 DLM [id number]) PT Summary Assessment and Plan Potential Rehabilitation Potential Good Status of Condition at Evaluation Unstable Summary Impairments Pain ROM Strength Balance Bed Mobility Transfers Gait Activity Tolerance Assessment Summary Yenifer reports increased pain in right hip area with activity. She ambulated from the bed to the chair with the fWW this visit. Pt sitting up in recliner. Her nurse was notified of pt's pain level. Ice applied to incisional area . Re-positioned pt in recliner to assist with pain management. Due to her high level of pain I anticipate she will need increased recovery time from her surgery. She could benefit from SNF rehab at discharge. Unable to discuss discharge planning with Yenifer this visit due to her high level of pain. Goals Bed Mobility Goal Independent Transfer Goal Standby Assistance Front Wheeled Walker Gait Goal Contact Guard Assistance Front Wheel Walker Gait Distance 50 feet Days to Meet Goals 3 Frequency of Treatment Frequency Of Treatment Twice a Day Treatment Plan Physical Therapy Treatment Plan Bed Mobility Training Transfer Training Gait Training Therapeutic Exercise Balance Retraining Post Op Education Discharge Planning Hot or Cold Pack Recommendations To Nursing Amount of Assist Needed 1 Person Assist Discharge Recommendations PT Discharge Recommendations SNF Rehab Equipment Needed for Home Before FWW, defer to SNF Discharge
--- NOTE | 2018-12-08 12:45 | PM.PN.1 ---
Subjective Date Patient Seen: 12/08/18 Interval history: Patient reports significant pain with ambulation. She is working with PT and is somewhat tearful. She had multiple episodes of hypoglycemia yesterday. She was placed on D5 half normal saline with improvement and stabilization of her blood sugars. She did receive 20 units of insulin last evening. The goal is to resume her usual insulin today. Patient will continue with physical therapy and occupational therapy. The patient is a 43-year-old female admitted to the hospital for hip fracture. She has type 1 diabetes which we are asked to manage. Exam Vital Signs (past 8 hours): - 12/08/18 09:00 12/08/18 10:18 12/08/18 11:00 Temperature 98 F 99.1 F Pulse Rate 107 H 121 H 104 H Respiratory Rate 16 15 Blood Pressure 127/88 115/78 Pulse Oximetry 97 100 Oxygen Delivery Method Nasal Cannula Oxygen Flow Rate 0 Narrative Exam Narrative: To full female in pain working with therapy Lungs: Clear to auscultation Cardiac exam: Regular rate and rhythm normal S1-S2 Abdomen: Soft and nontender Extremity: No edema Objective Labs Result Diagrams: 12/08/18 06:35 12/07/18 11:15 Labs: Laboratory Results - last 24 hr 12/07/18 12/08/18 11:15 06:35 Hgb 11.2 L Hct 34.4 L Sodium 136 L Potassium 4.5 Chloride 98 Carbon Dioxide 29 BUN 10 Creatinine 0.40 L Estimated GFR > 60.0 BUN/Creatinine Ratio 25.0 H Glucose 195 H D Calcium 8.4 Magnesium 2.2 Assessment & Plan (1) Closed hip fracture: Problem details: Patient is stat post total hip replacement. She presented to the hospital with a closed hip FX fracture present on admission. She will continue physical therapy and occupational therapy. It is anticipated that the patient may need long-term care prior to returning home. Qualifiers: Encounter type: initial encounter Fracture healing: Laterality: right Qualified Code(s): S72.001A - Fracture of unspecified part of neck of right femur, initial encounter for closed fracture Current visit: Yes Status: Acute (2) Acute urinary retention: Problem details: Valente catheter placed. Will attempt to remove prior to discharge, present on admission Current visit: Yes Status: Acute (3) Hyperglycemia: Problem details: Poorly controlled diabetes Current visit: Yes Status: Acute (4) Type 1 diabetes: Problem details: Patient with type 1 diabetes will continue her on her usual dose of insulin., chronic, present on admission Current visit: Yes Status: Acute Quality VTE Deep Vein Thrombosis/Pulmonary Embolism Present on Admission: No
[2018-12-08] MEDS: MAG HYDROX/ALUM/SIMETH 30 ML UDC PO (13:10)
[2018-12-08] MEDS: INSULIN ASPART 100 UNIT/ML INSULN PEN SUBCUT ×3 (13:54→20:30)
--- NOTE | 2018-12-08 14:24 | PT.IPTN ---
Current Diagnoses Type 1 diabetes mellitus without complications (12/07/18) Other retention of urine (12/07/18) Hyperglycemia, unspecified (12/07/18) Fracture of unspecified part of neck of right femur, initial encounter for closed fracture (12/07/18) Nondisplaced intertrochanteric fracture of right femur, initial encounter for closed fracture (12/07/18) Surgery Performed Operation Date: 12/07/18 14:15 Actual Procedures p ORIF Hip DHS(Right) - Jhonny Celestin MD Physical Therapy Treatment Note M2 PT-IP Current Condition Start: 12/08/18 08:15 Freq: NEEDED Status: Active Protocol: Document 12/08/18 10:27 DLM (Rec: 12/08/18 10:42 DLM [id number]) Physical Therapy Current Condition Current Condition Evaluation Date 12/08/18 Treatment Diagnosis right hip ORIF, fall with fracture, impaired gait Onset Date 12/07/18 Weight Bearing Status Weight Bearing Status Weight Bear as Tolerated M3 PT-IP Subjective Start: 12/08/18 08:15 Freq: NEEDED Status: Active Protocol: Document 12/08/18 14:22 LJ (Rec: 12/08/18 14:24 LJ [id number]) Subjective Physical Therapy Visit Type Type Patient Refusal Notes Pt with family in room. She received pain meds ~30 min prior and states she is not getting any relief. States she is in too much pain to move. Removed ice bag because it was causing her pain. M4 PT-IP Mobility and Gait Start: 12/08/18 08:15 Freq: NEEDED Status: Active Protocol: Document 12/08/18 10:27 DLM (Rec: 12/08/18 10:42 DL [id number]) PT-Bed Mobility Assessment Supine to Sit Supine to Sit Minimal Assistance Scooting Scooting to Edge of Bed Standby Assistance PT-Transfer Assessment Sit to and From Stand Sit to and from Stand Minimal Assistance Use of Upper Extremities Equipment Transfer Assistive Device Front Wheeled Walker Transfers Transfer Destination Chair Transfer Technique Stand Step Pivot Transfer Ability Level of Assist Minimal Assistance Use of Upper Extremities Comments Mobility Comments increased pain reported with all movements Gait Assessment Gait Gait Assistance Required: Contact Guard Assist Minimum Assistance Distance (Feet) 4 Able to Maintain Weight Bearing Status Yes During Gait Assistive Devices Assistive Device Gait Belt Front Wheeled Walker Gait Deviations General Gait Pattern Antalgic Decreased Stride Length Factors Limiting Gait Function Factors Limiting Gait Function Decreased Activity Tolerance Decreased Strength Pain Comments Gait Comments she is able to bear weight on UE's on the fWW to help manage her right LE pain/weakness PT-Balance Assessment Sitting Balance and Reactions Static Sitting Balance Ability Good Standing Balance and Reactions Static Standing Balance Ability Fair Dynamic Standing Balance Ability Fair Device Used FWW M5 PT-IP Objective Assessments Start: 12/08/18 08:15 Freq: NEEDED Status: Active Protocol: Document 12/08/18 10:27 DLM (Rec: 12/08/18 10:42 DL [id number]) Orientation Orientation/Cognition Level of Alertness Alert Orientation Name Age Birthday Month Date Year Day of Week Place Situation Language Function Ability No Deficits Noted Safety Awareness Understands Safety Issues Memory Description No Deficits Noted Comments she has difficulty concentration due to her pain Gross Range of Motion Upper Extremity ROM Assessment Within Functional Limits Impairments hx of bursitis in right shoulder Lower Extremity ROM Assessment Right Impaired Impairments pain limits all right hip motions Strength Upper Extremity Strength Assessment Within Functional Limits Shoulder hx right shoulder pain with increased use Lower Extremity Strength Assessment Right Impaired Hip flexion- she can not lift foot off floor, pain limits all Knee pain limits use, ext 2+/5 Ankle moving actively Comments Strength Comments pain in right hip area limits all activity Coordination Assessment Gross Coordination Gross Coordination WNL Sensation Assessment Sensation Gross Sensation Right LE Impaired Left LE Impaired Light Touch Impaired Sensation Description Numbness Pain Comments Sensation Comments hx of neuropathy in feet Muscle Tone Muscle Tone WNL Yes M6 PT-IP Treatment Start: 12/08/18 08:15 Freq: NEEDED Status: Active Protocol: Document 12/08/18 10:27 DLM (Rec: 12/08/18 10:42 DL [id number]) Physical Therapy Treatment Education Education Provided Weight Bearing Status Safety Other Treatments Other Treatment Performed she was not able to participate in exercises this visit due to her pain M7 PT-IP Assessment and Plan Start: 12/08/18 08:15 Freq: NEEDED Status: Active Protocol: Document 12/08/18 10:27 DLM (Rec: 12/08/18 10:42 DL [id number]) PT Summary Assessment and Plan Potential Rehabilitation Potential Good Status of Condition at Evaluation Unstable Summary Impairments Pain ROM Strength Balance Bed Mobility Transfers Gait Activity Tolerance Assessment Summary Yenifer reports increased pain in right hip area with activity. She ambulated from the bed to the chair with the fWW this visit. Pt sitting up in recliner. Her nurse was notified of pt's pain level. Ice applied to incisional area . Re-positioned pt in recliner to assist with pain management. Due to her high level of pain I anticipate she will need increased recovery time from her surgery. She could benefit from SNF rehab at discharge. Unable to discuss discharge planning with Yenifer this visit due to her high level of pain. Goals Bed Mobility Goal Independent Transfer Goal Standby Assistance Front Wheeled Walker Gait Goal Contact Guard Assistance Front Wheel Walker Gait Distance 50 feet Days to Meet Goals 3 Frequency of Treatment Frequency Of Treatment Twice a Day Treatment Plan Physical Therapy Treatment Plan Bed Mobility Training Transfer Training Gait Training Therapeutic Exercise Balance Retraining Post Op Education Discharge Planning Hot or Cold Pack Recommendations To Nursing Amount of Assist Needed 1 Person Assist Discharge Recommendations PT Discharge Recommendations SNF Rehab Equipment Needed for Home Before FWW, defer to SNF Discharge
[2018-12-08] MEDS: BUSPIRONE 5 MG TABLET 10 MG PO ×2 (14:38→20:07)
[2018-12-08] MEDS: CYCLOBENZAPRINE 10 MG TABLET PO ×2 (14:40→18:44)
--- NOTE | 2018-12-08 15:26 | PC.NURSE ---
PATIENT TEARY W/ PAIN 6-06/28 THROUGHOUT SHIFT. OXYCODONE 10MG GIVEN Q3HRS AND DILAUDID IV 0.5MG GIVEN IN BETWEEN FOR TOTAL OF 4 DOSES THIS SHIFT. CALLED PATIENT'S [facility] AND UPDATED PATIENT'S MED LIST. PATIENT HASN'T TAKEN WELLBUTRIN FOR A LONG TIME PER HER PHARMACY, PATIENT HAD FILLED CYMBALTA LAST MONTH, BUT PATIENT STATES SHE HAD ONLY BEEN ON IT FOR 4 MONTHS TO HELP HER SLEEP, AND THAT IT WASN'T WORKING FOR SLEEP AND THE DOCTOR TOLD HER TO STOP TAKING IT LAST TUESDAY. HER BUSPAR WAS RE-ORDERED ALONG WITH HER OTHER MEDS BY .
[2018-12-08] MEDS: SODIUM CHLORIDE 0.9% FLUSH 10 ML IV ×3 (16:40→20:40)
[2018-12-08] MEDS: GABAPENTIN 300 MG CAPSULE 900 MG PO ×2 (16:45→20:06)
[2018-12-08] MEDS: LORazepam 0.5 MG TABLET PO (17:40)
[2018-12-08] MEDS: INSULIN GLARGINE 100 UNIT/ML 3ML PEN 30 UNIT SUBCUT (20:30)
--- NOTE | 2018-12-08 22:55 | PC.NURSE ---
D/C hemovac today, 2x2 gauze applied w/tagaderm. Blood sugars changed to Q4 hrs. Out of bed x1, Lg BM today. Pt continues to have 7/10 pain that is requiring Oxcodone 10mg q3 hrs and dilaudid for breakthrough, and visaril. 98% on RA, VSS, Lung sounds clear bilaterally. Dressing is clean dry and intact. Fluids dc'd., BS 316,313,380, 7 units lantus given HS, 30 units glargine given HS.
[2018-12-09] VITALS (7 sets, daily range): BP systolic 83–130; BP diastolic 48–90; PULSE 80–126; RESP 16–22; TEMP 36.3–37; O2SAT 97–99
[2018-12-09] MEDS: SODIUM CHLORIDE 0.9% FLUSH 10 ML IV ×4 (00:10→22:07)
[2018-12-09] MEDS: HYDROMORPHONE 0.5 MG INJ IV ×5 (00:10→20:04)
[2018-12-09] MEDS: OXYCODONE IR 10 MG TABLET PO ×5 (03:08→22:07)
--- NOTE | 2018-12-09 03:52 | CM.MNRNOTE ---
pt AO and receptive to care. right hip pain reporting at 8/10 administered 0.5 IV dilaudid at 0008, pain decreased to a 4/10. Patient reporting 7/10 pain at 0300 and administered 10mg Oxycodone. Patient sleeping and unable to reassess pain scale. ABD dressing to righ hip cdi. Large BM reported on evening shift on 12/08. CBG at 0200 126. Valente draining to gravity. Left hand saline locked and flushing.
[2018-12-09] MEDS: PANTOPRAZOLE 20 MG TABLET PO (05:36)
--- NOTE | 2018-12-09 06:37 | P.PN_ITS ---
Subjective Date Patient Seen: 12/09/18 Interval history: Valerie Garnica is a 43-year-old female with a past medical history significant for poorly controlled diabetes mellitus type 1, osteoporosis, GERD, fibromyalgia and chronic back pain who presented after ground level fall with right hip pain and admitted for right hip fracture now status post ORIF. The patient is resting in bedside chair and appears mildly uncomfortable. She endorses right hip pain which she rates a +7/10 in severity. She denies hea dache, shortness of breath, chest pain, abdominal pain, nausea, vomiting, fever, chills, dysuria, diarrhea or constipation. She is voiding and eliminating without difficulty. He or she is up ambulating without or with assistance. Exam Vital Signs (past 8 hours): - 12/08/18 23:15 12/09/18 04:27 Temperature 97.3 F L 97.3 F L Pulse Rate 120 H 116 H Respiratory Rate 20 18 Blood Pressure 97/59 L 114/79 Pulse Oximetry 95 98 Oxygen Delivery Method Nasal Cannula Oxygen Flow Rate 0 Narrative Exam Narrative: General: Middle-aged female sitting in bedside chair appears mildly uncomfortable, in no acute distress, well-developed, well-nourished, appropriately interactive. HEENT: Normocephalic, atraumatic. External ears without defect. Pupils equal, round, and reactive to light. Anicteric sclerae, moist conjunctivae, and no lid lag. Oropharynx free of erythema and cobble stoning with moist mucosa. Neck: Supple with full range of motion. No lymphadenopathy or thyromegaly. Cardiovascular: Regular rate and rhythm without murmurs, rubs, or gallops appreciated Pulmonary: Clear to auscultation bilaterally without crackles, wheezes, or rhonchi. Normal respiratory effort with no use of accessory muscles. Abdomen: Soft, bowel sounds present, nontender, nondistended. No hepatosplenomegaly or masses appreciated. Extremities: No clubbing, cyanosis, or edema. Skin: Normal temperature, turgor, and texture; no rash, ulcers, or subcutaneous nodules appreciated. Neurological: Cranial nerves grossly intact. Psychiatric: Normal mood and affect. Alert and oriented to person, place, and time. Objective Labs Result Diagrams: 12/09/18 06:21 12/09/18 06:21 Labs: Laboratory Results - last 24 hr 12/08/18 06:35 Hgb 11.2 L Hct 34.4 L Assessment & Plan Assessment & Plan narrative: Valerie Garnica is a 43-year-old female with a past medical history significant for poorly controlled diabetes mellitus type 1, osteoporosis, GERD, fibromyalgia and chronic back pain who presented after ground level fall with right hip pain and admitted for right hip fracture now status post ORIF. 1. Acute pathological right hip fracture, status post ORIF, present on admission. Active. -Patient presented after GLF with right hip pain. -CT pelvis demonstrated nondisplaced intertrochanteric fracture of the right proximal femur. -Orthopedic surgeon, Dr. Celestin,was consulted and patient is now status post ORIF. We appreciate his time and care of the patient. -Continue gabapentin 900 mg four times daily, flexeril 10 mg three times daily as needed and oxycodone 5-10 mg every 3 hours as needed for severe pain. -Continue physical therapy and occupational therapy. It is anticipated that the patient will need senior living care prior to returning home. 2. Acute urinary retention, present on admission. Active. -Likely due to pain versus neurogenic from poorly controlled DMI. -Valente catheter placed and will attempt to remove prior to discharge. 3. Poorly controlled diabetes mellitus type I, chronic, present on admission. Active. -Hemoglobin A1C 13.3%11/2018. Patient is a brittle diabetic and has wide fluctuations in blood glucose making glycemic control very difficult. -Continue home insulin regimen with Lantus 30 units at bedtime and medium dose correctional scale insulin. 4. Acute hypovolemia, present on admission. Resolved. -Secondary to hyperglycemia, dehydration and osmotic diuresis. -Continue IV fluids. Will correct electrolyte abnormalities if needed. 5. Acute pain due to injury on chronic pain, present on admission. Active. -History of chronic back pain, fibromyalgia and chronic pancreatitis with overall baseline pain level of 5-6/10. -Continue gabapentin 900 mg four times daily, flexeril 10 mg three times daily as needed and oxycodone 5-10 mg every 3 hours as needed for severe pain. 6. Anxiety and depression, chronic, present on admission. Active. -Continue home buspar and duloxetine. Disposition: Patient will need senior living facility for rehabilitation. Quality VTE Deep Vein Thrombosis/Pulmonary Embolism Present on Admission: No
[2018-12-09 07:01] LABS: Add Manual Diff / Slide Review NO; Basophils Absolute Auto 0 /uL (0-100); Basophils Percent Auto 0.2 % (0-2); Eosinophils Absolute Auto 100 /uL (0-450); Eosinophils Percent Auto 0.6 % (2-4); Hematocrit 37.6 % (36-46); Hemoglobin 12.1 g/dL (12.0-16.0); Lymphocytes Absolute Auto 1900 /uL (1100-4500); Lymphocytes Percent Auto 14.7 % (25-40); Mean Corpuscular HGB Conc 32.3 % (30-36); Mean Corpuscular Hemoglobin 28.9 PG (26-34); Mean Corpuscular Volume 89.5 fL (80-100); Monocytes Absolute Auto 800 /uL (0-900); Neutrophils Absolute Auto 10000 /uL (1500-7000); Neutrophils Percent Auto 78.5 % (50-75); Platelet Count 317 X10^3/uL (150-400); Red Cell Distribution Width 14.8 % (11.6-14.8); White Blood Cell Count 12.7 X10^3/uL (4.5-11.0)
[2018-12-09 07:16] LABS: BUN Creatinine Ratio 7.5 (6-22); Blood Urea Nitrogen 3 mg/dL (7-17); Calcium 8.2 mg/dL (8.4-10.2); Carbon Dioxide 28 mmol/L (22-32); Chloride 99 mmol/L (98-107); Estimated Glomerular Filt Rate > 60.0 mL/min (>60); Glucose 79 mg/dL (70-100); HEMOLYSIS < 15 (0-50); Magnesium 2.2 mg/dL (1.6-2.3); Potassium 3.9 mmol/L (3.4-5.1); Sodium 134 mmol/L (137-145)
[2018-12-09 07:20] LABS: Hemoglobin A1C% w Est Avg Glu 13.3 % (4.0-6.0)
[2018-12-09] MEDS: ACETAMINOPHEN 325 MG TABLET 975 MG PO ×3 (08:23→22:03)
[2018-12-09] MEDS: CYCLOBENZAPRINE 10 MG TABLET PO ×2 (08:24→22:09)
[2018-12-09] MEDS: POLYETHYLENE GLYCOL 3350 17 GM POWD.PACK PO (08:24)
[2018-12-09] MEDS: DOCUSATE 100 MG CAPSULE PO ×2 (08:24→22:04)
[2018-12-09] MEDS: BUSPIRONE 5 MG TABLET 10 MG PO ×3 (08:24→22:04)
[2018-12-09] MEDS: ENOXAPARIN 30 MG/0.3 ML SYRINGE SUBCUT ×2 (08:25→22:04)
[2018-12-09] MEDS: GABAPENTIN 300 MG CAPSULE 900 MG PO ×4 (08:25→22:05)
--- NOTE | 2018-12-09 08:32 | PM.PNPO.1 ---
Subjective Date Patient Seen: 12/09/18 Interval history: Patient is seen bedside status post ORIF of right intertrochanteric hip fracture with plate/screw device on 12/07/[address] Celestin. She is postop day 2. She denies nausea, vomiting, chest pain, and shortness of breath. She does have pain still and says that it hurts to move her right leg. Exam Vital Signs (past 8 hours): - 12/09/18 04:27 Temperature 97.3 F L Pulse Rate 116 H Respiratory Rate 18 Blood Pressure 114/79 Pulse Oximetry 98 Oxygen Delivery Method Nasal Cannula Oxygen Flow Rate 0 Narrative Exam Narrative: Well-developed, well-nourished, no acute distress. Alert and oriented to person, place, and time. Dressing on operative hip is clean, dry, and intact with no signs of drainage. Minimal erythema and generalized swelling around the surgical site. Neurovascularly intact in the operative extremity with a soft and compressible calf. Range of motion of the operative ankle intact. Objective Labs Result Diagrams: 12/09/18 06:21 12/09/18 06:21 Labs: Laboratory Results - last 24 hr 12/09/18 12/09/18 12/09/18 06:21 06:21 06:21 WBC 12.7 H RBC 4.20 Hgb 12.1 Hct 37.6 MCV 89.5 MCH 28.9 MCHC 32.3 RDW 14.8 Plt Count 317 Neut % (Auto) 78.5 H Lymph % (Auto) 14.7 L Benson % (Auto) 6.0 Eos % (Auto) 0.6 L Baso % (Auto) 0.2 Neut # (Auto) 57752 H Lymph # (Auto) 1900 Benson # (Auto) 800 Eos # (Auto) 100 Baso # (Auto) 0 Sodium 134 L Potassium 3.9 Chloride 99 Carbon Dioxide 28 BUN 3 L Creatinine 0.40 L Estimated GFR > 60.0 BUN/Creatinine Ratio 7.5 Glucose 79 D Hemoglobin A1c 13.3 H Calcium 8.2 L Magnesium 2.2 Assessment & Plan Post-op Postoperative Procedures Operation Date: 12/07/18 14:15 Actual Procedures Side Surgeon p ORIF Hip DHS Right Jhonny Celestin MD 1. Postop day 2. Status post above procedure-continue PT/OT, pain control. Follow up with [facility] in 10-14 days for suture removal and x-rays. Dispo-to SNF when medically cleared. Quality VTE Deep Vein Thrombosis/Pulmonary Embolism Present on Admission: No
--- NOTE | 2018-12-09 09:50 | PT.IPTN ---
Current Diagnoses Type 1 diabetes mellitus without complications (12/07/18) Other retention of urine (12/07/18) Hyperglycemia, unspecified (12/07/18) Fracture of unspecified part of neck of right femur, initial encounter for closed fracture (12/07/18) Nondisplaced intertrochanteric fracture of right femur, initial encounter for closed fracture (12/07/18) Surgery Performed Operation Date: 12/07/18 14:15 Actual Procedures p ORIF Hip DHS(Right) - Jhonny Celestin MD Physical Therapy Treatment Note M2 PT-IP Current Condition Start: 12/08/18 08:15 Freq: NEEDED Status: Active Protocol: Document 12/08/18 10:27 DLM (Rec: 12/08/18 10:42 DLM [id number]) Physical Therapy Current Condition Current Condition Evaluation Date 12/08/18 Treatment Diagnosis right hip ORIF, fall with fracture, impaired gait Onset Date 12/07/18 Weight Bearing Status Weight Bearing Status Weight Bear as Tolerated M3 PT-IP Subjective Start: 12/08/18 08:15 Freq: NEEDED Status: Active Protocol: Document 12/09/18 09:19 RCC (Rec: 12/09/18 12:25 RCC [id number]) Subjective Physical Therapy Visit Type Type Treatment Note Visit Start Time 09:19 Visit Stop Time 09:50 Total Visit Minutes 31 Number of ENDOCRINOLOGIST Visits 0 Physical Therapy Visit Comments Patient Comments Pt states that she has increased pain with any movement at all of her RLE. Therapy Pain Assessment Pain When Pain Assessed At Rest Pain Present Pain Present Pain Reported Location Right Hip Intensity 6 Scale Used Numeric (1 - 10) Description Aching Spasm Stabbing With Movement Pain Behaviors Calling Out Crying Facial Grimacing Guarding Holding Area Moaning Wincing Pain Management Techniques Apply Cold Re-positioning Timing of Activity with Medications M4 PT-IP Mobility and Gait Start: 12/08/18 08:15 Freq: NEEDED Status: Active Protocol: Document 12/09/18 09:19 RCC (Rec: 12/09/18 12:25 RCC [id number]) PT-Bed Mobility Assessment Supine to Sit Supine to Sit Minimal Assistance Scooting Scooting to Edge of Bed Minimal Assistance PT-Transfer Assessment Sit to and From Stand Sit to and from Stand Minimal Assistance Use of Upper Extremities Equipment Transfer Assistive Device Front Wheeled Walker Transfers Transfer Destination Chair Transfer Technique Stand Step Pivot Transfer Ability Level of Assist Minimal Assistance Use of Upper Extremities Gait Assessment Gait Gait Assistance Required: Contact Guard Assist 1 Person Assist Distance (Feet) 10 Able to Maintain Weight Bearing Status Yes During Gait Assistive Devices Assistive Device Gait Belt Front Wheeled Walker Gait Deviations General Gait Pattern Antalgic Decreased Stride Length Decreased Feet Clearance Step-to Gait Factors Limiting Gait Function Factors Limiting Gait Function Decreased Activity Tolerance Decreased Strength Limited Range of Motion Pain M5 PT-IP Objective Assessments Start: 12/08/18 08:15 Freq: NEEDED Status: Active Protocol: Document 12/08/18 10:27 DLM (Rec: 12/08/18 10:42 DL [id number]) Orientation Orientation/Cognition Level of Alertness Alert Orientation Name Age Birthday Month Date Year Day of Week Place Situation Language Function Ability No Deficits Noted Safety Awareness Understands Safety Issues Memory Description No Deficits Noted Comments she has difficulty concentration due to her pain Gross Range of Motion Upper Extremity ROM Assessment Within Functional Limits Impairments hx of bursitis in right shoulder Lower Extremity ROM Assessment Right Impaired Impairments pain limits all right hip motions Strength Upper Extremity Strength Assessment Within Functional Limits Shoulder hx right shoulder pain with increased use Lower Extremity Strength Assessment Right Impaired Hip flexion- she can not lift foot off floor, pain limits all Knee pain limits use, ext 2+/5 Ankle moving actively Comments Strength Comments pain in right hip area limits all activity Coordination Assessment Gross Coordination Gross Coordination WNL Sensation Assessment Sensation Gross Sensation Right LE Impaired Left LE Impaired Light Touch Impaired Sensation Description Numbness Pain Comments Sensation Comments hx of neuropathy in feet Muscle Tone Muscle Tone WNL Yes M6 PT-IP Treatment Start: 12/08/18 08:15 Freq: NEEDED Status: Active Protocol: Document 12/08/18 10:27 DLM (Rec: 12/08/18 10:42 [facility] [id number]) Physical Therapy Treatment Education Education Provided Weight Bearing Status Safety Other Treatments Other Treatment Performed she was not able to participate in exercises this visit due to her pain M7 PT-IP Assessment and Plan Start: 12/08/18 08:15 Freq: NEEDED Status: Active Protocol: Document 12/09/18 09:19 RCC (Rec: 12/09/18 12:25 RCC [id number]) PT Summary Assessment and Plan Summary Assessment Summary Pt able to ambulate just 10 ft today, limited by pain and weakness in the RLE. Pt requires increased time to perform all mobility, and does have increased pain with any motion or movement involving the RLE. Pt able to WB through the RLE during ambulation, but very dependent on use of UE on FWW. Pt is not safe to return home at this time, as she is unable to ambulate safe household distances and requires manual assistance with all motion/movement of the RLE. Goals Bed Mobility Goal Independent Transfer Goal Standby Assistance Front Wheeled Walker Gait Goal Contact Guard Assistance Front Wheel Walker Gait Distance 50 feet Days to Meet Goals 3 Frequency of Treatment Frequency Of Treatment Twice a Day Treatment Plan Other Recommendations and Next Treatment post-op thera ex, gait as Focus tolerated. Recommendations To Nursing Amount of Assist Needed 1 Person Assist Discharge Recommendations PT Discharge Recommendations SNF Rehab Equipment Needed for Home Before FWW, defer to SNF Discharge
[2018-12-09] MEDS: INSULIN ASPART 100 UNIT/ML INSULN PEN SUBCUT ×2 (12:22→17:35)
[2018-12-09] MEDS: LORazepam 0.5 MG TABLET PO ×2 (12:26→18:15)
--- NOTE | 2018-12-09 14:40 | PT.IPTN ---
Current Diagnoses Type 1 diabetes mellitus without complications (12/07/18) Other retention of urine (12/07/18) Hyperglycemia, unspecified (12/07/18) Fracture of unspecified part of neck of right femur, initial encounter for closed fracture (12/07/18) Nondisplaced intertrochanteric fracture of right femur, initial encounter for closed fracture (12/07/18) Surgery Performed Operation Date: 12/07/18 14:15 Actual Procedures p ORIF Hip DHS(Right) - Jhonny Celestin MD Physical Therapy Treatment Note M2 PT-IP Current Condition Start: 12/08/18 08:15 Freq: NEEDED Status: Active Protocol: Document 12/08/18 10:27 DLM (Rec: 12/08/18 10:42 DLM [id number]) Physical Therapy Current Condition Current Condition Evaluation Date 12/08/18 Treatment Diagnosis right hip ORIF, fall with fracture, impaired gait Onset Date 12/07/18 Weight Bearing Status Weight Bearing Status Weight Bear as Tolerated M3 PT-IP Subjective Start: 12/08/18 08:15 Freq: NEEDED Status: Active Protocol: Document 12/09/18 14:40 RCC (Rec: 12/09/18 15:47 RCC [id number]) Subjective Physical Therapy Visit Type Type Treatment Note Visit Start Time 14:40 Visit Stop Time 14:53 Total Visit Minutes 13 Number of [employer] INSPECTOR Visits 0 Physical Therapy Visit Comments Patient Comments pt states pain was a little better prior to mobility Therapy Pain Assessment Pain When Pain Assessed During Mobility Pain Present Pain Present Pain Reported Location Right Hip Intensity 7 Scale Used Numeric (1 - 10) Description Aching Pain Behaviors Calling Out Facial Grimacing Guarding Moaning Wincing Pain Management Techniques Apply Cold Re-positioning M4 PT-IP Mobility and Gait Start: 12/08/18 08:15 Freq: NEEDED Status: Active Protocol: Document 12/09/18 14:40 RCC (Rec: 12/09/18 15:47 RCC [id number]) PT-Bed Mobility Assessment Sit to Supine Sit to Supine Minimal Assistance 1 Person Assistance PT-Transfer Assessment Sit to and From Stand Sit to and from Stand Minimal Assistance 1 Person Assistance Use of Upper Extremities Equipment Transfer Assistive Device Gait Belt Front Wheeled Walker Transfers Transfer Destination Bed Transfer Technique Stand Step Pivot Transfer Ability Level of Assist Contact Guard Assistance Gait Assessment Gait Gait Assistance Required: Contact Guard Assist Distance (Feet) 6 Assistive Devices Assistive Device Gait Belt Front Wheeled Walker Gait Deviations General Gait Pattern Antalgic Decreased Stride Length Decreased Feet Clearance Flexed Trunk Step-to Gait Factors Limiting Gait Function Factors Limiting Gait Function Decreased Activity Tolerance Decreased Strength Limited Range of Motion Pain Poor Balance M5 PT-IP Objective Assessments Start: 12/08/18 08:15 Freq: NEEDED Status: Active Protocol: Document 12/08/18 10:27 DLM (Rec: 12/08/18 10:42 DL [id number]) Orientation Orientation/Cognition Level of Alertness Alert Orientation Name Age Birthday Month Date Year Day of Week Place Situation Language Function Ability No Deficits Noted Safety Awareness Understands Safety Issues Memory Description No Deficits Noted Comments she has difficulty concentration due to her pain Gross Range of Motion Upper Extremity ROM Assessment Within Functional Limits Impairments hx of bursitis in right shoulder Lower Extremity ROM Assessment Right Impaired Impairments pain limits all right hip motions Strength Upper Extremity Strength Assessment Within Functional Limits Shoulder hx right shoulder pain with increased use Lower Extremity Strength Assessment Right Impaired Hip flexion- she can not lift foot off floor, pain limits all Knee pain limits use, ext 2+/5 Ankle moving actively Comments Strength Comments pain in right hip area limits all activity Coordination Assessment Gross Coordination Gross Coordination WNL Sensation Assessment Sensation Gross Sensation Right LE Impaired Left LE Impaired Light Touch Impaired Sensation Description Numbness Pain Comments Sensation Comments hx of neuropathy in feet Muscle Tone Muscle Tone WNL Yes M6 PT-IP Treatment Start: 12/08/18 08:15 Freq: NEEDED Status: Active Protocol: Document 12/09/18 14:40 RCC (Rec: 12/09/18 15:47 RCC [id number]) Physical Therapy Treatment Exercises Exercises Ankle Pumps Quad Sets M7 PT-IP Assessment and Plan Start: 12/08/18 08:15 Freq: NEEDED Status: Active Protocol: Document 12/09/18 14:40 RCC (Rec: 12/09/18 15:47 RCC [id number]) PT Summary Assessment and Plan Summary Assessment Summary POD #2 ORIF R hip fx. Pt still limited d/t c/o pain with any and all mobility. Pt requires increased time to perform transfers due to pain, and occasionally with excessive vaulting with ambulation. Pt unable to manage her RLE due to pain and weakness. Goals Bed Mobility Goal Independent Transfer Goal Standby Assistance Front Wheeled Walker Gait Goal Contact Guard Assistance Front Wheel Walker Gait Distance 50 feet Days to Meet Goals 3 Frequency of Treatment Frequency Of Treatment Twice a Day Treatment Plan Other Recommendations and Next Treatment post-op thera ex, gait as Focus tolerated. Recommendations To Nursing Amount of Assist Needed 1 Person Assist Discharge Recommendations PT Discharge Recommendations SNF Rehab Equipment Needed for Home Before FWW, defer to SNF Discharge
--- NOTE | 2018-12-09 15:30 | OT.IP.TRT ---
Current Diagnoses Type 1 diabetes mellitus without complications (12/07/18) Other retention of urine (12/07/18) Hyperglycemia, unspecified (12/07/18) Fracture of unspecified part of neck of right femur, initial encounter for closed fracture (12/07/18) Nondisplaced intertrochanteric fracture of right femur, initial encounter for closed fracture (12/07/18) Surgery Performed Operation Date: 12/07/18 14:15 Actual Procedures p ORIF Hip DHS(Right) - Jhonny Celestin MD Occupational Therapy Treatment Note M3 OT- IP Subjective and Pain Start: 12/09/18 15:35 Freq: Status: Active Protocol: Document 12/09/18 15:36 CONCHITA (Rec: 12/09/18 15:37 CONCHITA [id number]) OT- Subjective Occupational Therapy Visit Type Type Administrative Note Visit Start Time 15:30 Notes OT referral received. Pt evaluated by P.T. today. Limited mobility due to high pain levels. Will initiate OT evaluation as pt's pain level permits. No charge.
--- NOTE | 2018-12-09 17:48 | PC.NURSE ---
Pt sitting up in bed watching TV, A/O x3. 97%RA, LS clear denies SOB. BP 120/83, HR-tachy at 124, and 1800 125, medicated with ativan 0.5mg PO. Up to BSC 1PA FWW to void clear yellow urine. BT + denies nausea. Right hip bulky drsg CDI. Pain medications given when due, for pain 6-03/28 continually. Provided bed bath per pt request. Refused calf SCD's. Pt without teeth. Bed alarm on for safety.
[2018-12-09] MEDS: MAGNESIUM HYDROXIDE 30 ML UDC PO (22:06)
[2018-12-09] MEDS: INSULIN GLARGINE 100 UNIT/ML 3ML PEN 30 UNIT SUBCUT (22:09)
[2018-12-10] MEDS: HYDROMORPHONE 0.5 MG INJ IV ×3 (00:33→10:07)
[2018-12-10] MEDS: PANTOPRAZOLE 20 MG TABLET PO (05:23)
[2018-12-10 05:24] VITALS: BP 129/89; PULSE 122; RESP 22; TEMP 37; O2SAT 99
--- NOTE | 2018-12-10 07:35 | P.PN_ITS ---
Subjective Interval history: Valerie Garnica is a 43-year-old female with a past medical history significant for poorly controlled diabetes mellitus type 1, osteoporosis, GERD, fibromyalgia and chronic back pain who presented after ground level fall with right hip pain and admitted for right hip fracture now status post ORIF. The patient is resting in bed comfortably. She continues to have right hip pain which she rates a +7/10 in severity. She also reports mild headache. She continues working with physical therapy and was slightly more mobile today. She denies shortness of breath, chest pain, abdominal pain, nausea, vomiting, fever, chills, dysuria, diarrhea or constipation. She is voiding and eliminating without difficulty. She is up ambulating minimally with assistance and PT Exam Vital Signs (past 8 hours): - 12/10/18 05:24 Temperature 98.6 F Pulse Rate 122 H Respiratory Rate 22 Blood Pressure 129/89 Pulse Oximetry 99 Oxygen Delivery Method Room Air Oxygen Flow Rate 0 Narrative Exam Narrative: General: Middle-aged female sitting in bedside chair appears mildly uncomfortable, in no acute distress, appears older than stated age, well- developed, well-nourished, appropriately interactive. HEENT: Normocephalic, atraumatic. External ears without defect. Pupils equal, round, and reactive to light. Anicteric sclerae, moist conjunctivae, and no lid lag. Poor dentition. Neck: Supple with full range of motion. No lymphadenopathy or thyromegaly. Cardiovascular: Regular rate and rhythm without murmurs, rubs, or gallops appreciated. Pulmonary: Clear to auscultation bilaterally without crackles, wheezes, or r honchi. Normal respiratory effort with no use of accessory muscles. Abdomen: Soft, bowel sounds present, nontender, nondistended. No hepatosplenomegaly or masses appreciated. Extremities: No clubbing, cyanosis, or edema. Dressing in place over right hip C/D/I without any surrounding erythema. Skin: Normal temperature, turgor, and texture; no rash, ulcers, or subcutaneous nodules appreciated. Neurological: Cranial nerves grossly intact. Psychiatric: Emotionally labile. Alert and oriented to person, place, and time. Objective Labs Result Diagrams: 12/09/18 06:21 12/09/18 06:21 Assessment & Plan Assessment & Plan narrative: Valerie Garnica is a 43-year-old female with a past medical history significant for poorly controlled diabetes mellitus type 1, osteoporosis, GERD, fibromyalgia and chronic back pain who presented after ground level fall with right hip pain and admitted for right hip fracture now status post ORIF. 1. Acute pathological right hip fracture, status post ORIF, present on admission. Active. -Patient presented after GLF with right hip pain. -CT pelvis demonstrated nondisplaced intertrochanteric fracture of the right proximal femur. -Orthopedic surgeon, Dr. Celestin,was consulted and patient is now status post ORIF. We appreciate his time and care of the patient. -Continue gabapentin 900 mg four times daily, flexeril 10 mg three times daily as needed and oxycodone 5-10 mg every 3 hours as needed for severe pain. -Continue physical therapy and occupational therapy. It is anticipated that the patient will need usp care prior to returning home. 2. Acute urinary retention, present on admission. Active. -Likely due to pain versus neurogenic from poorly controlled DMI. -Valente catheter removed. 3. Poorly controlled diabetes mellitus type I, chronic, present on admission. Active. -Hemoglobin A1C 13.3%11/2018. Patient is a brittle diabetic and has wide fluctuations in blood glucose making glycemic control very difficult. -Continue home insulin regimen with Lantus 30 units at bedtime and medium dose correctional scale insulin. 4. Acute hypovolemia, present on admission. Resolved. -Secondary to hyperglycemia, dehydration and osmotic diuresis. -Continue IV fluids. Will correct electrolyte abnormalities if needed. 5. Acute pain due to injury on chronic pain, present on admission. Active. -History of chronic back pain, fibromyalgia and chronic pancreatitis with overall baseline pain level of 5-6/10. -Continue ketorlac 10 mg three times daily as needed, gabapentin 900 mg four times daily, flexeril 10 mg three times daily as needed and oxycodone 5-10 mg every 3 hours as needed for severe pain. 6. Anxiety and depression, chronic, present on admission. Active. -Continue home buspar and duloxetine. Disposition: Patient will need usp facility for rehabilitation. Quality VTE Deep Vein Thrombosis/Pulmonary Embolism Present on Admission: No
[2018-12-10] MEDS: OXYCODONE IR 10 MG TABLET PO ×5 (07:44→21:12)
[2018-12-10] MEDS: CYCLOBENZAPRINE 10 MG TABLET PO ×2 (07:45→21:15)
[2018-12-10] MEDS: GABAPENTIN 300 MG CAPSULE 900 MG PO ×4 (07:59→21:13)
[2018-12-10] MEDS: DOCUSATE 100 MG CAPSULE PO ×2 (07:59→21:12)
[2018-12-10] MEDS: BUSPIRONE 5 MG TABLET 10 MG PO ×3 (07:59→21:11)
[2018-12-10] MEDS: POLYETHYLENE GLYCOL 3350 17 GM POWD.PACK PO (07:59)
[2018-12-10] MEDS: ENOXAPARIN 30 MG/0.3 ML SYRINGE SUBCUT ×2 (07:59→21:13)
[2018-12-10 08:00] VITALS: BP 120/70; PULSE 120; RESP 16; TEMP 36.9; O2SAT 100
[2018-12-10] MEDS: SODIUM CHLORIDE 0.9% FLUSH 10 ML IV (08:00)
[2018-12-10] MEDS: ACETAMINOPHEN 325 MG TABLET 975 MG PO ×3 (08:00→21:12)
--- NOTE | 2018-12-10 10:52 | PM.PNPO.1 ---
Subjective Date Patient Seen: 12/10/18 Time Patient Seen: 10:53 Interval history: Patient status post open reduction internal fixation of a right hip fracture. Patient doing well in regards to pain control. Still having difficulty moving the hip and ambulating. Exam Vital Signs (past 8 hours): - 12/10/18 05:24 12/10/18 08:00 Temperature 98.6 F 98.5 F Pulse Rate 122 H 120 H Respiratory Rate 22 16 Blood Pressure 129/89 120/70 Pulse Oximetry 99 100 Oxygen Delivery Method Room Air Oxygen Flow Rate 0 Narrative Exam Narrative: On physical exam, patient is alert and oriented x3. No apparent distress. Patient's dressing is clean dry and intact. Patient has positive dorsiflexion and plantar flexion. 5/5 strength in dorsiflexion and plantar flexion. Nontender to palpation over the posterior aspect of the calf. Palpable pedal pulses. Objective Labs Result Diagrams: 12/09/18 06:21 12/09/18 06:21 Assessment & Plan Post-op Postoperative Procedures Operation Date: 12/07/18 14:15 Actual Procedures Side Surgeon p ORIF Hip DHS Right Jhonny Celestin MD Postoperative day: 3 Postoperative status: doing well Postoperative plan: routine post-op care Postoperative plan narrative: Patient will continue to work with physical therapy. Patient can be discharged to a shelter facility when medically cleared. Time Spent With Patient less than 15 minutes Quality VTE Deep Vein Thrombosis/Pulmonary Embolism Present on Admission: No
--- NOTE | 2018-12-10 10:55 | P.PN_ITS ---
Subjective Date Patient Seen: 12/10/18 Time Patient Seen: 10:53 Interval history: Patient status post open reduction internal fixation of a right hip fracture. Patient doing well in regards to pain control. Still having difficulty moving the hip and ambulating. Exam Vital Signs (past 8 hours): - 12/10/18 05:24 12/10/18 08:00 Temperature 98.6 F 98.5 F Pulse Rate 122 H 120 H Respiratory Rate 22 16 Blood Pressure 129/89 120/70 Pulse Oximetry 99 100 Oxygen Delivery Method Room Air Oxygen Flow Rate 0 Narrative Exam Narrative: On physical exam, patient is alert and oriented x3. No apparent distress. Patient's dressing is clean dry and intact. Patient has positive dorsiflexion and plantar flexion. 5/5 strength in dorsiflexion and plantar flexion. Nontender to palpation over the posterior aspect of the calf. Palpable pedal pulses. Objective Labs Result Diagrams: 12/09/18 06:21 12/09/18 06:21 Assessment & Plan Post-op Postoperative Procedures Operation Date: 12/07/18 14:15 Actual Procedures Side Surgeon p ORIF Hip DHS Right Jhonny Celestin MD Postoperative day: 3 Postoperative status: doing well Postoperative plan: routine post-op care Postoperative plan narrative: Patient will continue to work with physical t herapy. Patient can be discharged to a care home facility when medically cleared. Time Spent With Patient less than 15 minutes Quality VTE Deep Vein Thrombosis/Pulmonary Embolism Present on Admission: No
--- NOTE | 2018-12-10 10:56 | PT.IPTN ---
Current Diagnoses Type 1 diabetes mellitus without complications (12/07/18) Other retention of urine (12/07/18) Hyperglycemia, unspecified (12/07/18) Fracture of unspecified part of neck of right femur, initial encounter for closed fracture (12/07/18) Nondisplaced intertrochanteric fracture of right femur, initial encounter for closed fracture (12/07/18) Surgery Performed Operation Date: 12/07/18 14:15 Actual Procedures p ORIF Hip DHS(Right) - Jhonny Celestin MD Physical Therapy Treatment Note M2 PT-IP Current Condition Start: 12/08/18 08:15 Freq: NEEDED Status: Active Protocol: Document 12/08/18 10:27 DLM (Rec: 12/08/18 10:42 DLM [id number]) Physical Therapy Current Condition Current Condition Evaluation Date 12/08/18 Treatment Diagnosis right hip ORIF, fall with fracture, impaired gait Onset Date 12/07/18 Weight Bearing Status Weight Bearing Status Weight Bear as Tolerated M3 PT-IP Subjective Start: 12/08/18 08:15 Freq: NEEDED Status: Active Protocol: Document 12/10/18 10:56 RCC (Rec: 12/10/18 13:01 RCC [email or web address]) Subjective Physical Therapy Visit Type Type Treatment Note Visit Start Time 10:56 Visit Stop Time 11:13 Total Visit Minutes 17 Number of THEOLOGY TEACHER Visits 0 Physical Therapy Visit Comments Patient Comments pt is not sure if her hip is any better today but the IV pain medication did help. Therapy Pain Assessment Pain When Pain Assessed During Mobility Pain Present Pain Present Pain Reported Location Right Hip Intensity 7 Scale Used Numeric (1 - 10) Description Aching Pain Behaviors Guarding Moaning Pain Management Techniques Apply Cold Re-positioning Timing of Activity with Medications M4 PT-IP Mobility and Gait Start: 12/08/18 08:15 Freq: NEEDED Status: Active Protocol: Document 12/10/18 10:56 RCC (Rec: 12/10/18 13:01 RCC [id number]) PT-Bed Mobility Assessment Supine to Sit Supine to Sit Minimal Assistance 1 Person Assistance Sit to Supine Sit to Supine Minimal Assistance 1 Person Assistance PT-Transfer Assessment Sit to and From Stand Sit to and from Stand Contact Guard Assistance 1 Person Assistance Use of Upper Extremities Equipment Transfer Assistive Device Gait Belt Front Wheeled Walker Transfers Transfer Destination Bed Transfer Technique Stand Step Pivot Transfer Ability Level of Assist Contact Guard Assistance Gait Assessment Gait Gait Assistance Required: Contact Guard Assist Distance (Feet) 15 Assistive Devices Assistive Device Gait Belt Front Wheeled Walker Gait Deviations General Gait Pattern Antalgic Decreased Stride Length Decreased Feet Clearance Step-to Gait Factors Limiting Gait Function Factors Limiting Gait Function Decreased Activity Tolerance Decreased Strength Limited Range of Motion Pain Poor Balance Comments Gait Comments improved step length on the L but still mild vaulting occasionally with gait. M5 PT-IP Objective Assessments Start: 12/08/18 08:15 Freq: NEEDED Status: Active Protocol: Document 12/08/18 10:27 DLM (Rec: 12/08/18 10:42 DLM [id number]) Orientation Orientation/Cognition Level of Alertness Alert Orientation Name Age Birthday Month Date Year Day of Week Place Situation Language Function Ability No Deficits Noted Safety Awareness Understands Safety Issues Memory Description No Deficits Noted Comments she has difficulty concentration due to her pain Gross Range of Motion Upper Extremity ROM Assessment Within Functional Limits Impairments hx of bursitis in right shoulder Lower Extremity ROM Assessment Right Impaired Impairments pain limits all right hip motions Strength Upper Extremity Strength Assessment Within Functional Limits Shoulder hx right shoulder pain with increased use Lower Extremity Strength Assessment Right Impaired Hip flexion- she can not lift foot off floor, pain limits all Knee pain limits use, ext 2+/5 Ankle moving actively Comments Strength Comments pain in right hip area limits all activity Coordination Assessment Gross Coordination Gross Coordination WNL Sensation Assessment Sensation Gross Sensation Right LE Impaired Left LE Impaired Light Touch Impaired Sensation Description Numbness Pain Comments Sensation Comments hx of neuropathy in feet Muscle Tone Muscle Tone WNL Yes M6 PT-IP Treatment Start: 12/08/18 08:15 Freq: NEEDED Status: Active Protocol: Document 12/10/18 10:56 RCC (Rec: 12/10/18 13:01 [facility] [id number]) Physical Therapy Treatment Exercises Exercises Ankle Pumps Quad Sets M7 PT-IP Assessment and Plan Start: 12/08/18 08:15 Freq: NEEDED Status: Active Protocol: Document 12/10/18 10:56 RCC (Rec: 12/10/18 13:01 [facility] [id number]) PT Summary Assessment and Plan Summary Assessment Summary POD #3. Pt continues to require increased time with all activities, including >10 min for gait x15 ft. She did have mild improvements with step length of the L foot, but still is at high risk for falls due to slow gait speed and decreased bilateral foot clearance. Pt is still not safe to return home and is unable to tolerate household gait distances. Goals Bed Mobility Goal Independent Transfer Goal Standby Assistance Front Wheeled Walker Gait Goal Contact Guard Assistance Front Wheel Walker Gait Distance 50 feet Days to Meet Goals 3 Frequency of Treatment Frequency Of Treatment Twice a Day Treatment Plan Other Recommendations and Next Treatment prog. gait distance and speed, Focus increase WB on the RLE as tolerated. Recommendations To Nursing Amount of Assist Needed 1 Person Assist Discharge Recommendations PT Discharge Recommendations SNF Rehab Equipment Needed for Home Before FWW, defer to SNF Discharge
[2018-12-10 12:00] VITALS: BP 118/78; PULSE 119; RESP 16; TEMP 36.6; O2SAT 96
[2018-12-10] MEDS: INSULIN ASPART 100 UNIT/ML INSULN PEN SUBCUT (12:03)
[2018-12-10] MEDS: KETOROLAC 10 MG TABLET PO ×2 (14:47→21:12)
--- NOTE | 2018-12-10 15:20 | CM.DPC ---
Addendum entered by Jeanne Giron LPN 12/10/18 15:48: VM is left now for [facility] on admission phone re the referral request. Original Note: Addendum entered by Jeanne Giron LPN 12/10/18 15:39: Did confirm with pt that her PCP at the [facility] is ZOFIA vEans. She states Dr. Dee referred her there quite a while ago and he is really good. Original Note: DCP: continued: Case received yesterday and discussed in Team Rounds. The physician team as well as the therapy team were all recommending snf level rehab for this pt. Noted that she is 43 years old and payer: Medicaid. She is diabetic and has chronic pain. Met then with pt and introduced self and role. Pt was found lying in bed, readily agreeable to discussion. Pt quickly confirmed that she is very open to the idea of a senior living/snf rehab recovery stay. She does live with her cousins but they cannot provide the assist she currently needs and she is hopeful to recover her functional abilties before she goes home. Went over Medicaid process and snf agency list. She agreed to whatever snf, ideally in [facility], can accept her. Cautioned that she may need to pay some of her income as participation during the snf stay but she did not express concern re this. As is weekend cannot confirm if Medicaid will cover a snf setting for her without an application being sent in. DCP team on Tuesday will need to start this process although the snf admissions staff may know more re what they will need. Have discussed case today in Team Rounds. Dr. Lilly says she understands that the patient may be here for some time while this unfolds. PT agrees they will also look to incorporate option of a home plan into the treatment plan but at this point pt is having so much pain she is not able to do much with them. Have contacted Suzi/[facility] and she accepts the referral for consideration. Have faxed the referral info to [facility] as well as [facility] and [facility] DCP team will work with them re the process. Would recommend asking if Vanessa can come during week to assess pt for the facilities if this seems appropriate.
--- NOTE | 2018-12-10 15:30 | PT.IPTN ---
Current Diagnoses Type 1 diabetes mellitus without complications (12/07/18) Other retention of urine (12/07/18) Hyperglycemia, unspecified (12/07/18) Fracture of unspecified part of neck of right femur, initial encounter for closed fracture (12/07/18) Nondisplaced intertrochanteric fracture of right femur, initial encounter for closed fracture (12/07/18) Surgery Performed Operation Date: 12/07/18 14:15 Actual Procedures p ORIF Hip DHS(Right) - Jhonny Celestin MD Physical Therapy Treatment Note M2 PT-IP Current Condition Start: 12/08/18 08:15 Freq: NEEDED Status: Active Protocol: Document 12/08/18 10:27 DLM (Rec: 12/08/18 10:42 DLM [id number]) Physical Therapy Current Condition Current Condition Evaluation Date 12/08/18 Treatment Diagnosis right hip ORIF, fall with fracture, impaired gait Onset Date 12/07/18 Weight Bearing Status Weight Bearing Status Weight Bear as Tolerated M3 PT-IP Subjective Start: 12/08/18 08:15 Freq: NEEDED Status: Active Protocol: Document 12/10/18 15:30 RCC (Rec: 12/10/18 16:41 RCC [email or web address]) Subjective Physical Therapy Visit Type Type Patient Refusal Notes pt with visitors in room, stating pain is too high to participate at this time. Will attempt again tomorrow. Goals Bed Mobility Goal Independent Transfer Goal Standby Assistance Front Wheeled Walker Gait Goal Contact Guard Assistance Front Wheel Walker Gait Distance 50 feet Days to Meet Goals 3 Frequency of Treatment Frequency Of Treatment Twice a Day Treatment Plan Other Recommendations and Next Treatment prog. gait distance and speed, Focus increase WB on the RLE as tolerated. Recommendations To Nursing Amount of Assist Needed 1 Person Assist Discharge Recommendations PT Discharge Recommendations SNF Rehab Equipment Needed for Home Before FWW, defer to SNF Discharge
[2018-12-10 15:36] VITALS: BP 110/78; PULSE 127; RESP 20; TEMP 35.9; O2SAT 100
[2018-12-10] MEDS: LORazepam 0.5 MG TABLET PO (16:03)
[2018-12-10 20:23] VITALS: BP 114/80; PULSE 110; RESP 20; TEMP 36.6
[2018-12-10] MEDS: MAGNESIUM HYDROXIDE 30 ML UDC PO (21:13)
[2018-12-10] MEDS: INSULIN GLARGINE 100 UNIT/ML 3ML PEN 30 UNIT SUBCUT (21:16)
[2018-12-11] MEDS: OXYCODONE IR 5 MG TABLET PO ×2 (02:49→08:05)
--- NOTE | 2018-12-11 03:16 | PC.NURSE ---
Patient asked for blood glucose check, thought she was low. Did not get insulin coverage at [facility]. Accucheck was 60. Patient ate half protein sandwich and orange juice. Had half protein sandwich at around 2330. Patient stated she did not get a sandwich, and hadn't eaten in 13 hours. I personally saw and heard sandwich being given, and the offer to help with condiments. Recheck of glucose was 91. Patient A&O, drawing in bed.
[2018-12-11 05:03] VITALS: BP 118/72; PULSE 111; RESP 20; TEMP 36.4; O2SAT 100
--- NOTE | 2018-12-11 06:11 | PM.PN.1 ---
Subjective Date Patient Seen: 12/11/18 Interval history: Valerie Garnica is a 43-year-old female with a past medical history significant for poorly controlled diabetes mellitus type 1, osteoporosis, GERD, fibromyalgia and chronic back pain who presented after ground level fall with right hip pain and admitted for right hip fracture now status post ORIF. Interval history: Patient had symptomatic hypoglycemia with blood glucose of 60 overnight which was ameliorated with a snack. To day the patient is resting in bed comfortably. She continues to have difficulty with mobility and is progressing very slowly with physical therapy. Her pain is controlled with oxycodone. She denies headache, shortness of breath, chest pain, abdominal pain, nausea, vomiting, fever, chills, dysuria, diarrhea or constipation. She is voiding and eliminating without difficulty. She is up ambulating minimally with assistance and PT Exam Vital Signs (past 8 hours): - 12/11/18 05:03 Temperature 97.5 F L Pulse Rate 111 H Respiratory Rate 20 Blood Pressure 118/72 Pulse Oximetry 100 Oxygen Delivery Method Room Air Oxygen Flow Rate 0 Narrative Exam Narrative: General: Middle-aged female sitting in bedside chair appears mildly uncomfortable, in no acute distress, appears older than stated age, well-developed, well-nourished, appropriately interactive. HEENT: Normocephalic, atraumatic. External ears without defect. Pupils equal, round, and reactive to light. Anicteric sclerae, moist conjunctivae, and no lid lag. Poor dentition. Neck: Supple with full range of motion. No lymphadenopathy or thyromegaly. Cardiovascular: Regular rate and rhythm without murmurs, rubs, or gallops appreciated. Pulmonary: Clear to auscultation bilaterally without crackles, wheezes, or rhonchi. Normal respiratory effort with no use of accessory muscles. Abdomen: Soft, bowel sounds present, nontender, nondistended. No hepatosplenomegaly or masses appreciated. Extremities: No clubbing, cyanosis, or edema. Dressing in place over right hip c/d/i without any surrounding erythema. Skin: Normal temperature, turgor, and texture; no rash, ulcers, or subcutaneous nodules appreciated. Neurological: Cranial nerves grossly intact. Psychiatric: Emotionally labile. Alert and oriented to person, place, and time. Objective Labs Result Diagrams: 12/11/18 06:50 12/11/18 06:50 Assessment & Plan Assessment & Plan narrative: Valerie Garnica is a 43-year-old female with a past medical history significant for poorly controlled diabetes mellitus type 1, osteoporosis, GERD, fibromyalgia and chronic back pain who presented after ground level fall with right hip pain and admitted for right hip fracture now status post ORIF. 1. Acute pathological right hip fracture, status post ORIF, present on admission. Active. -Patient presented after GLF with right hip pain. -CT pelvis demonstrated nondisplaced intertrochanteric fracture of the right proximal femur. -Orthopedic surgeon, Dr. Celestin,was consulted and patient is now status post ORIF. We appreciate his time and care of the patient. -Continue gabapentin 900 mg four times daily, flexeril 10 mg three times daily as needed and oxycodone 5-10 mg every 3 hours as needed for severe pain. -Continue physical therapy and occupational therapy. It is anticipated that the patient will need penitentiary care prior to returning home. 2. Acute urinary retention, present on admission. Active. -Likely due to pain versus neurogenic from poorly controlled DMI. -Valente catheter removed. 3. Poorly controlled diabetes mellitus type I, chronic, present on admission. Active. -Hemoglobin A1C 13.3%11/2018. Patient is a brittle diabetic and has wide fluctuations in blood glucose making glycemic control very difficult. -Changed Lantus regimen to 15 units twice daily to help improve coverage and avoid hypoglycemia at night. Continue medium dose correctional scale insulin. 4. Acute hypovolemia, present on admission. Resolved. -Secondary to hyperglycemia, dehydration and osmotic diuresis. -Continue IV fluids. Will correct electrolyte abnormalities if needed. 5. Acute pain due to injury on chronic pain, present on admission. Active. -History of chronic back pain, fibromyalgia and chronic pancreatitis with overall baseline pain level of 5-6/10. -Continue ketorlac 10 mg three times daily as needed, gabapentin 900 mg four times daily, flexeril 10 mg three times daily as needed and oxycodone 5-10 mg every 3 hours as needed for severe pain. 6. Anxiety and depression, chronic, present on admission. Active. -Continue home buspar and duloxetine. Disposition: Patient will need penitentiary facility for rehabilitation. Quality VTE Deep Vein Thrombosis/Pulmonary Embolism Present on Admission: No
[2018-12-11] MEDS: PANTOPRAZOLE 20 MG TABLET PO (07:06)
[2018-12-11 07:16] LABS: Add Manual Diff / Slide Review NO; Basophils Absolute Auto 0 /uL (0-100); Basophils Percent Auto 0.3 % (0-2); Eosinophils Absolute Auto 200 /uL (0-450); Eosinophils Percent Auto 1.7 % (2-4); Hematocrit 35.9 % (36-46); Hemoglobin 11.8 g/dL (12.0-16.0); Lymphocytes Absolute Auto 2000 /uL (1100-4500); Lymphocytes Percent Auto 18.8 % (25-40); Mean Corpuscular HGB Conc 32.8 % (30-36); Mean Corpuscular Hemoglobin 29.4 PG (26-34); Mean Corpuscular Volume 89.6 fL (80-100); Monocytes Absolute Auto 500 /uL (0-900); Monocytes Percent Auto 4.7 % (3-14); Neutrophils Absolute Auto 8100 /uL (1500-7000); Neutrophils Percent Auto 74.5 % (50-75); Platelet Count 382 X10^3/uL (150-400); Red Blood Cell Count 4.01 X10^6/uL (4.0-5.2); Red Cell Distribution Width 14.6 % (11.6-14.8); White Blood Cell Count 10.9 X10^3/uL (4.5-11.0)
[2018-12-11 07:25] LABS: Alanine Aminotransferase 53 IU/L (9-52); Albumin 3.5 g/dL (3.5-5.0); Albumin Globulin Ratio 1.2 (1.0-2.8); Alkaline Phosphatase 149 U/L (38-126); Aspartate Aminotransferase 81 IU/L (14-36); BUN Creatinine Ratio 21.7 (6-22); Bilirubin Total 0.3 mg/dL (0.2-1.3); Blood Urea Nitrogen 13 mg/dL (7-17); Calcium 8.4 mg/dL (8.4-10.2); Carbon Dioxide 29 mmol/L (22-32); Chloride 97 mmol/L (98-107); Estimated Glomerular Filt Rate > 60.0 mL/min (>60); Glucose 215 mg/dL (70-100); HEMOLYSIS < 15 (0-50); Magnesium 2.8 mg/dL (1.6-2.3); Potassium 4.6 mmol/L (3.4-5.1); Sodium 133 mmol/L (137-145); Total Protein 6.5 g/dL (6.3-8.2)
[2018-12-11 08:05] VITALS: BP 95/67; PULSE 111; RESP 20; TEMP 36.6; O2SAT 96
[2018-12-11] MEDS: GABAPENTIN 300 MG CAPSULE 900 MG PO ×4 (08:06→21:55)
[2018-12-11] MEDS: ACETAMINOPHEN 325 MG TABLET 975 MG PO ×3 (08:06→21:53)
[2018-12-11] MEDS: BUSPIRONE 5 MG TABLET 10 MG PO ×3 (08:06→21:55)
[2018-12-11] MEDS: DOCUSATE 100 MG CAPSULE PO ×2 (08:06→21:55)
[2018-12-11] MEDS: POLYETHYLENE GLYCOL 3350 17 GM POWD.PACK PO (08:07)
[2018-12-11] MEDS: INSULIN ASPART 100 UNIT/ML INSULN PEN SUBCUT ×2 (08:08→16:58)
[2018-12-11] MEDS: ENOXAPARIN 30 MG/0.3 ML SYRINGE SUBCUT ×2 (08:09→21:55)
--- NOTE | 2018-12-11 10:41 | PM.PNPO.1 ---
Subjective Date Patient Seen: 12/11/18 Time Patient Seen: 10:41 Interval history: Valerie is status post open reduction internal fixation of a right hip fracture. Her pain is well controlled this morning. She has been mobilizing with physical therapy using her walker. Exam Vital Signs (past 8 hours): - 12/11/18 05:03 12/11/18 08:05 Temperature 97.5 F L 97.9 F Pulse Rate 111 H 111 H Respiratory Rate 20 20 Blood Pressure 118/72 95/67 Pulse Oximetry 100 96 Oxygen Delivery Method Room Air Oxygen Flow Rate 0 Narrative Exam Narrative: Patient lying in bed in no acute distress. She is alert orient x3. Dressing on right hip is CDI. Calves are soft, compressible, nontender bilaterally. Pulses are symmetrical. She is able to actively dorsiflex plantar flex. Objective Labs Result Diagrams: 12/11/18 06:50 12/11/18 06:50 Labs: Laboratory Results - last 24 hr 12/11/18 12/11/18 06:50 06:50 WBC 10.9 RBC 4.01 Hgb 11.8 L Hct 35.9 L MCV 89.6 MCH 29.4 MCHC 32.8 RDW 14.6 Plt Count 382 Neut % (Auto) 74.5 Lymph % (Auto) 18.8 L [place] % (Auto) 4.7 Eos % (Auto) 1.7 L Baso % (Auto) 0.3 Neut # (Auto) 8100 H Lymph # (Auto) 2000 [place] # (Auto) 500 Eos # (Auto) 200 Baso # (Auto) 0 Sodium 133 L Potassium 4.6 Chloride 97 L Carbon Dioxide 29 BUN 13 Creatinine 0.60 Estimated GFR > 60.0 BUN/Creatinine Ratio 21.7 Glucose 215 H D Calcium 8.4 Magnesium 2.8 H Total Bilirubin 0.3 AST 81 H ALT 53 H Alkaline Phosphatase 149 H Total Protein 6.5 Albumin 3.5 Globulin 3.0 Albumin/Globulin Ratio 1.2 Assessment & Plan Post-op Postoperative Procedures Operation Date: 12/07/18 14:15 Actual Procedures Side Surgeon p ORIF Hip DHS Right Jhonny Celestin MD Patient will continue to mobilize with physical therapy using her walker. Continue current pain control. Lovenox for VTE prophylaxis. Orthopedically stable. DC per hospitalist service. Quality VTE Deep Vein Thrombosis/Pulmonary Embolism Present on Admission: No
[2018-12-11] MEDS: OXYCODONE IR 10 MG TABLET PO ×4 (11:17→21:53)
--- NOTE | 2018-12-11 13:30 | PT.IPTN ---
Current Diagnoses Type 1 diabetes mellitus without complications (12/07/18) Other retention of urine (12/07/18) Hyperglycemia, unspecified (12/07/18) Fracture of unspecified part of neck of right femur, initial encounter for closed fracture (12/07/18) Nondisplaced intertrochanteric fracture of right femur, initial encounter for closed fracture (12/07/18) Surgery Performed Operation Date: 12/07/18 14:15 Actual Procedures p ORIF Hip DHS(Right) - Jhonny Celestin MD Physical Therapy Treatment Note Notes Pt tired after OT session, will attempt again in afternoon.
--- NOTE | 2018-12-11 13:33 | OT.IP.EVAL ---
Current Diagnoses Type 1 diabetes mellitus without complications (12/07/18) Other retention of urine (12/07/18) Hyperglycemia, unspecified (12/07/18) Fracture of unspecified part of neck of right femur, initial encounter for closed fracture (12/07/18) Nondisplaced intertrochanteric fracture of right femur, initial encounter for closed fracture (12/07/18) Surgery Performed Operation Date: 12/07/18 14:15 Actual Procedures p ORIF Hip DHS(Right) - Jhonny Celestin MD Past Medical History (Last Reviewed 12/07/18 @ 06:57 by Jhonny Celestin MD) Gastroesophageal reflux disease (Acute) Insulin dependent diabetes mellitus (Acute) Lupus (Acute) Osteoporosis (Acute) Surgical History (Last Reviewed 12/07/18 @ 06:57 by Jhonny Celestin MD) No pertinent past surgical history (Acute) Occupational Therapy Inpatient Evaluation/Re-Eval M1 PT/OT-IP Prior Functional Status Start: 12/08/18 08:15 Freq: NEEDED Status: Active Protocol: Document 12/11/18 13:11 [facility] (Rec: 12/11/18 13:33 [facility] [id number]) Medical Review Prior Functional Status Medical History Reviewed Yes Diet/Fluid Consistency Regular Communication WNL Mobility and Gait Independent without device Activities of Daily Living and IADL's Independent, chronic pain, Cousin helps with shopping. Otherwise pt was helping her cousin with all IADl at home. Prior Functional Level (Other details) does not drive Social History Household Members family Living Arrangements House Number of Floors (Floors) One Floor Number of Stairs To Enter/Railing? ramp Home Environment Standard Height Toilet Tub/Shower Home Equipment Grab Bars In Shower Employment Status Unemployed M2 OT-IP Current Condition Start: 12/09/18 15:35 Freq: Status: Active Protocol: Document 12/11/18 13:11 [facility] (Rec: 12/11/18 13:33 [facility] [id number]) Occupational Therapy Current Condition Current Condition Evaluation Date 12/11/18 Treatment Diagnosis GLF, right intertrochanteric hip fx Diagnosis Onset Date 12/09/18 Weight Bearing Status Weight Bearing Status Weight Bear as Tolerated M3 OT- IP Subjective and Pain Start: 12/09/18 15:35 Freq: Status: Active Protocol: Document 12/11/18 13:11 [facility] (Rec: 12/11/18 13:33 [facility] [id number]) OT- Subjective Occupational Therapy Visit Type Type Initial Evaluation Visit Start Time 10:00 Visit Stop Time 10:25 Total Visit Minutes 25 Occupational Therapy Visit Comments Patient/Caregiver Goals Pt wanting to go to skilled rehab prior to going home. OT Pain Assessment Pain When Pain Assessed At Rest Pain Present Pain Present Pain Reported Location Right Hip Intensity 6 M4 OT- IP ADL's Start: 12/09/18 15:35 Freq: Status: Active Protocol: Document 12/11/18 13:11 [facility] (Rec: 12/11/18 13:33 [facility] [id number]) OT ADL-Grooming General Evaluation Grooming Ability Standby Assistance Areas Needing Assistance Retrieving/Set-up of Grooming Items Comments OT Grooming Comments Pt able to stand at sink for grooming needs with FWW. OT ADL-Oral Care General Eval Oral Care Ability Independent OT ADL-Dressing General Eval Lower Body Dressing Ability Moderate Assistance Areas Needing Assistance Socks Comments OT Dressing Comments Pt able to cross leg over to jesus/doff sock for left foot , however dependent for right foot. Educated and practiced sock aid and electrical timing device calibrator and pt still needing NEVIN for right foot to help lift up with use of sock aid. OT ADL-Toileting Comments OT Toileting Comments Pt would benefit from BSC at home as at ttimes goes ofetn at night. OT ADL-Bathing Comments OT Bathing Comments Pt has a tub/shower and difficulty to move RLE would benefit from tub bench. M5 OT- IP IADL's Start: 12/09/18 15:35 Freq: Status: Active Protocol: Document 12/11/18 13:11 [facility] (Rec: 12/11/18 13:33 [facility] [id number]) OT-Instrumental Activities of Daily Living Medication Management Medication Management No Deficits Identified Picture Frame Maker Picture Frame Maker Comments At this time, pt will need to have assist for all IADL needs . Driving Driving Caregiver Provides Assist M6 OT- IP Functional Cognition Start: 12/09/18 15:35 Freq: Status: Active Protocol: Document 12/11/18 13:11 [facility] (Rec: 12/11/18 13:33 [facility] [id number]) Cognitive Factors Limiting Selfcare Function Cognitive Ability Level of Alertness Alert Patient Orientation Name Age Birthday Month Date Year Day of Week Place Situation Attention Span Ability Capable of Focused Attention Capable of Sustained Attention Ability to Follow Commands Able to Follow Multi-Step Commands Memory Description No Deficits Noted Cognitive Comments Cognitive Assessment Comments Pt able to follow 2-3 step commands. OT- Vision and Hearing OT- Hearing Assessment OT- Hearing Assessment WFL OT- Vision Assessment Visual Acuity Glasses All The Time M7 OT- IP Mobility and Balance Start: 12/09/18 15:35 Freq: Status: Active Protocol: Document 12/11/18 13:11 [facility] (Rec: 12/11/18 13:33 [facility] [id number]) OT- Bed Mobility Assessment Rolling Type of Rolling Roll to Right Level of Assistance Standby Assistance Supine to Sit Supine to Sit Assist Moderate Assistance Sit to Supine Sit to Supine Assist Moderate Assistance Scooting Scooting to Edge of Bed Standby Assistance OT-Transfer Assessment Sit to and From Stand Sit to and from Stand Contact Guard Assistance Transfers Transfer Ability Standby Assistance Technique Transfer Destination Bed Chair Transfer Technique Stand Step Pivot Devices Transfer Assistive Devices Gait Belt Front Wheeled Walker OT- Balance Assessment Sitting Balance and Reactions Static Sitting Balance Ability Normal Dynamic Sitting Balance Ability Good Standing Balance and Reactions Static Standing Balance Ability Fair Dynamic Standing Balance Ability Fair M8 OT- IP Objective Assessments Start: 12/09/18 15:35 Freq: Status: Active Protocol: Document 12/11/18 13:11 [facility] (Rec: 12/11/18 13:33 [facility] [id number]) OT Gross Range of Motion Upper Extremity Range of Motion Assessment Within Functional Limits OT Strength Comments Strength Comments BUE 4/5 OT- Coordination Assessment Upper Extremity Finger to Nose Test Within Functional Limits M9 OT- IP Assessment and Plan Start: 12/09/18 15:35 Freq: Status: Active Protocol: Document 12/11/18 13:11 [facility] (Rec: 12/11/18 13:33 [facility] [id number]) OT Summary Assessment and Plan Potential Rehabilitation Potential Good Analytic Complexity at Evaluation Low Summary OT Impairments Strength Balance Functional Mobility Dressing Toileting Bathing Toilet Transfers Shower Transfers Progress Towards Goals Progressing Toward Goals Assessment Summary Pt low complexity and main barriers are activity tolerance, and needing assist for LB dressing, and will need assist to help get into the tub and for all IADL needs. Pt would benefit from skilled rehab prior to going home. Goals Grooming Goal Independent Dressing Goal Contact Guard Assistance Toileting Goal Standby Assistance Bathing Goal Minimal Assistance Toilet Transfer Goal Standby Assistance Shower Transfer Goal Minimal Assistance Patient/Caregiver Education Goal Caregiver Independent Assisting Patient Days to Meet Goals 5 Frequency of Treatment Frequency Of Treatment Once a Day Treatment Plan OT Treatment Plan ADL Training Functional Mobility Patient/Family Education Discharge Planning Other Treatment Recommendations and Next Practice LB AEd and shower Treatment Focus Discharge Recommendations OT Discharge Recommendations SNF Rehab Home Equipment Needs FWW, BSC, Tub bench
--- NOTE | 2018-12-11 14:13 | CM.DPC ---
DCP/continued: Received verbal referral from RN/Amparo and Dr. Lilly requesting ALTERATIONS SUPERVISOR assistance with d/c planning. Per notes, patient requiring SNF for rehabilitation at time of d/c. Primary payor is 1)Medicaid 2)[facility]. Placed call to all [facility] SNF's. [facility] willing to consider but want reassurance that [facility] will pay for rehabilitation. Per Vanessa, at [facility] patient's primary insurance Medicaid will only cover room/board. Placed call to [facility] structural steel worker Katie Palmer ph# [phone]. She is familiar with patient and believes that she can get carve out for rehab from [facility]. General clinical faxed to Katie at [facility]. Placed call to Vanessa informing her of above and providing her with Katie's direct phone number. Met with patient to discuss d/c plan. Patient aware and agreeable to go to [facility] if accepted. In addition, information for patient has been faxed for SNF review to: [facility], [facility], [facility], [facility], [facility], [place] [facility], [facility], [facility], and [facility]. All [facility] SNF's have been called/faxed and declined with the exception of [facility]. P: [facility] pending. ALTERATIONS SUPERVISOR hopeful that rate can be determined with [facility] for patient to d/c tomorrow 12-12-18. Dr. Maxx RN, and patient updated. Rhonda Mcleod MSW
[2018-12-11 14:15] VITALS: BP 113/77; PULSE 114; RESP 22; TEMP 36.7; O2SAT 97
[2018-12-11] MEDS: CYCLOBENZAPRINE 10 MG TABLET PO ×2 (14:15→21:58)
--- NOTE | 2018-12-11 16:00 | PT.IPTN ---
Current Diagnoses Type 1 diabetes mellitus without complications (12/07/18) Other retention of urine (12/07/18) Hyperglycemia, unspecified (12/07/18) Fracture of unspecified part of neck of right femur, initial encounter for closed fracture (12/07/18) Nondisplaced intertrochanteric fracture of right femur, initial encounter for closed fracture (12/07/18) Surgery Performed Operation Date: 12/07/18 14:15 Actual Procedures p ORIF Hip DHS(Right) - Jhonny Celestin MD Physical Therapy Treatment Note M2 PT-IP Current Condition Start: 12/08/18 08:15 Freq: NEEDED Status: Active Protocol: Document 12/08/18 10:27 DLM (Rec: 12/08/18 10:42 DLM [id number]) Physical Therapy Current Condition Current Condition Evaluation Date 12/08/18 Treatment Diagnosis right hip ORIF, fall with fracture, impaired gait Onset Date 12/07/18 Weight Bearing Status Weight Bearing Status Weight Bear as Tolerated M3 PT-IP Subjective Start: 12/08/18 08:15 Freq: NEEDED Status: Active Protocol: Document 12/11/18 16:00 RS (Rec: 12/12/18 08:50 RS [id number]) Subjective Physical Therapy Visit Type Type Treatment Note Visit Start Time 15:30 Visit Stop Time 16:00 Total Visit Minutes 30 Physical Therapy Visit Comments Patient Comments Pt reports being too tired to get up and walk. M4 PT-IP Mobility and Gait Start: 12/08/18 08:15 Freq: NEEDED Status: Active Protocol: Document 12/10/18 10:56 RCC (Rec: 12/10/18 13:01 RCC [id number]) PT-Bed Mobility Assessment Supine to Sit Supine to Sit Minimal Assistance 1 Person Assistance Sit to Supine Sit to Supine Minimal Assistance 1 Person Assistance PT-Transfer Assessment Sit to and From Stand Sit to and from Stand Contact Guard Assistance 1 Person Assistance Use of Upper Extremities Equipment Transfer Assistive Device Gait Belt Front Wheeled Walker Transfers Transfer Destination Bed Transfer Technique Stand Step Pivot Transfer Ability Level of Assist Contact Guard Assistance Gait Assessment Gait Gait Assistance Required: Contact Guard Assist Distance (Feet) 15 Assistive Devices Assistive Device Gait Belt Front Wheeled Walker Gait Deviations General Gait Pattern Antalgic Decreased Stride Length Decreased Feet Clearance Step-to Gait Factors Limiting Gait Function Factors Limiting Gait Function Decreased Activity Tolerance Decreased Strength Limited Range of Motion Pain Poor Balance Comments Gait Comments improved step length on the L but still mild vaulting occasionally with gait. M5 PT-IP Objective Assessments Start: 12/08/18 08:15 Freq: NEEDED Status: Active Protocol: Document 12/08/18 10:27 DLM (Rec: 12/08/18 10:42 DLM [id number]) Orientation Orientation/Cognition Level of Alertness Alert Orientation Name Age Birthday Month Date Year Day of Week Place Situation Language Function Ability No Deficits Noted Safety Awareness Understands Safety Issues Memory Description No Deficits Noted Comments she has difficulty concentration due to her pain Gross Range of Motion Upper Extremity ROM Assessment Within Functional Limits Impairments hx of bursitis in right shoulder Lower Extremity ROM Assessment Right Impaired Impairments pain limits all right hip motions Strength Upper Extremity Strength Assessment Within Functional Limits Shoulder hx right shoulder pain with increased use Lower Extremity Strength Assessment Right Impaired Hip flexion- she can not lift foot off floor, pain limits all Knee pain limits use, ext 2+/5 Ankle moving actively Comments Strength Comments pain in right hip area limits all activity Coordination Assessment Gross Coordination Gross Coordination WNL Sensation Assessment Sensation Gross Sensation Right LE Impaired Left LE Impaired Light Touch Impaired Sensation Description Numbness Pain Comments Sensation Comments hx of neuropathy in feet Muscle Tone Muscle Tone WNL Yes M6 PT-IP Treatment Start: 12/08/18 08:15 Freq: NEEDED Status: Active Protocol: Document 12/11/18 16:00 RS (Rec: 12/12/18 08:52 [id number]) Physical Therapy Treatment Exercises Exercises Ankle Pumps Gluteal Sets Quad Sets M7 PT-IP Assessment and Plan Start: 12/08/18 08:15 Freq: NEEDED Status: Active Protocol: Document 12/11/18 16:00 RS (Rec: 12/12/18 08:52 [id number]) PT Summary Assessment and Plan Potential Rehabilitation Potential Good Status of Condition at Evaluation Evolving Summary Impairments Pain ROM Strength Balance Bed Mobility Transfers Gait Activity Tolerance Progress Towards Goals Slow Progress due to Pain Slow Progress due to Activity Tolerance Assessment Summary Pt is POD#4 R hip ORIF. Pt's progress has been incredibly slow due to pain and now fatigue. Pt was able to walk further during OT session in AM, but this essentially wiped her out the rest of the day. Pt is not safe to return home yet and will greatly benefit from ongoing daily skilled therapies. Continue to recommend pt transition to SNF rehab once medically ready. Goals Days to Meet Goals 3 Frequency of Treatment Frequency Of Treatment Twice a Day Treatment Plan Physical Therapy Treatment Plan Bed Mobility Training Transfer Training Gait Training Therapeutic Exercise Balance Retraining Post Op Education Discharge Planning Hot or Cold Pack Other Recommendations and Next Treatment prog. gait distance and speed, Focus increase WB on the RLE as tolerated. Recommendations To Nursing Amount of Assist Needed 1 Person Assist Discharge Recommendations PT Discharge Recommendations SNF Rehab
[2018-12-11 16:05] VITALS: BP 127/79; PULSE 105; RESP 20; TEMP 36.8; O2SAT 99
[2018-12-11] MEDS: KETOROLAC 10 MG TABLET PO ×2 (17:08→21:58)
[2018-12-11 19:10] VITALS: BP 110/72; PULSE 109; RESP 98; TEMP 37.1; O2SAT 98
[2018-12-11] MEDS: MAGNESIUM HYDROXIDE 30 ML UDC PO (21:56)
[2018-12-11] MEDS: INSULIN GLARGINE 100 UNIT/ML 3ML PEN 15 UNIT SUBCUT (22:00)
[2018-12-12 01:02] VITALS: BP 143/97; PULSE 107; RESP 16; TEMP 36.6; O2SAT 97
[2018-12-12] MEDS: OXYCODONE IR 10 MG TABLET PO ×6 (01:08→19:04)
[2018-12-12 04:08] VITALS: BP 119/77; PULSE 106; RESP 16; TEMP 36.8; O2SAT 99
[2018-12-12] MEDS: KETOROLAC 10 MG TABLET PO ×2 (04:43→18:22)
[2018-12-12] MEDS: PANTOPRAZOLE 20 MG TABLET PO (04:43)
[2018-12-12] MEDS: CYCLOBENZAPRINE 10 MG TABLET PO ×2 (04:44→13:25)
--- NOTE | 2018-12-12 07:25 | PM.PN.1 ---
Subjective Date Patient Seen: 12/12/18 Interval history: Valerie Garnica is a 43-year-old female with a past medical history significant for poorly controlled diabetes mellitus type 1, osteoporosis, GERD, fibromyalgia and chronic back pain who presented after ground level fall with right hip pain and admitted for right hip fracture now status post ORIF. To day the patient is resting in bed comfortably. She continues to have difficulty with mobility and is progressing very slowly with physical therapy. Her pain is controlled with oxycodone. She denies headache, shortness of breath, chest pain, abdominal pain, nausea, vomiting, fever, chills, dysuria, diarrhea or constipation. She is voiding and eliminating without difficulty. She is up ambulating minimally with assistance and PT Exam Vital Signs (past 8 hours): - 12/12/18 01:02 12/12/18 04:08 Temperature 97.9 F 98.2 F Pulse Rate 107 H 106 H Respiratory Rate 16 16 Blood Pressure 143/97 H 119/77 Pulse Oximetry 97 99 Oxygen Delivery Method Room Air Oxygen Flow Rate 0 Narrative Exam Narrative: General: Middle-aged female sitting in bedside chair appears mildly uncomfortable, in no acute distress, appears older than stated age, well-developed, well-nourished, appropriately interactive. HEENT: Normocephalic, atraumatic. External ears without defect. Pupils equal, round, and reactive to light. Anicteric sclerae, moist conjunctivae, and no lid lag. Poor dentition. Neck: Supple with full range of motion. No lymphadenopathy or thyromegaly. Cardiovascular: Regular rate and rhythm without murmurs, rubs, or gallops appreciated. Pulmonary: Clear to auscultation bilaterally without crackles, wheezes, or rhonchi. Normal respiratory effort with no use of accessory muscles. Abdomen: Soft, bowel sounds present, nontender, nondistended. No hepatosplenomegaly or masses appreciated. Extremities: No clubbing, cyanosis, or edema. Dressing in place over right hip c/d/i without any surrounding erythema. Skin: Normal temperature, turgor, and texture; no rash, ulcers, or subcutaneous nodules appreciated. Neurological: Cranial nerves grossly intact. Psychiatric: Emotionally labile. Alert and oriented to person, place, and time. Objective Labs Result Diagrams: 12/11/18 06:50 12/11/18 06:50 Labs: Laboratory Results - last 24 hr 12/11/18 12/11/18 06:50 06:50 WBC 10.9 RBC 4.01 Hgb 11.8 L Hct 35.9 L MCV 89.6 MCH 29.4 MCHC 32.8 RDW 14.6 Plt Count 382 Neut % (Auto) 74.5 Lymph % (Auto) 18.8 L [place] % (Auto) 4.7 Eos % (Auto) 1.7 L Baso % (Auto) 0.3 Neut # (Auto) 8100 H Lymph # (Auto) 2000 [place] # (Auto) 500 Eos # (Auto) 200 Baso # (Auto) 0 Sodium 133 L Potassium 4.6 Chloride 97 L Carbon Dioxide 29 BUN 13 Creatinine 0.60 Estimated GFR > 60.0 BUN/Creatinine Ratio 21.7 Glucose 215 H D Calcium 8.4 Magnesium 2.8 H Total Bilirubin 0.3 AST 81 H ALT 53 H Alkaline Phosphatase 149 H Total Protein 6.5 Albumin 3.5 Globulin 3.0 Albumin/Globulin Ratio 1.2 Assessment & Plan Assessment & Plan narrative: Valerie Garnica is a 43-year-old female with a past medical history significant for poorly controlled diabetes mellitus type 1, osteoporosis, GERD, fibromyalgia and chronic back pain who presented after ground level fall with right hip pain and admitted for right hip fracture now status post ORIF. 1. Acute pathological right hip fracture, status post ORIF, present on admission. Active. -Patient presented after GLF with right hip pain. -CT pelvis demonstrated nondisplaced intertrochanteric fracture of the right proximal femur. -Orthopedic surgeon, Dr. Celestin,was consulted and patient is now status post ORIF. We appreciate his time and care of the patient. -Continue gabapentin 900 mg four times daily, flexeril 10 mg three times daily as needed and oxycodone 5-10 mg every 3 hours as needed for severe pain. -Continue physical therapy and occupational therapy. It is anticipated that the patient will need retirement care prior to returning home. 2. Acute urinary retention, present on admission. Active. -Likely due to pain versus neurogenic from poorly controlled DMI. -Valente catheter removed. 3. Poorly controlled diabetes mellitus type I, chronic, present on admission. Active. -Hemoglobin A1C 13.3%11/2018. Patient is a brittle diabetic and has wide fluctuations in blood glucose making glycemic control very difficult. -Changed Lantus regimen to 15 units twice daily to help improve coverage and avoid hypoglycemia at night. Continue medium dose correctional scale insulin. 4. Acute hypovolemia, present on admission. Resolved. -Secondary to hyperglycemia, dehydration and osmotic diuresis. -Continue IV fluids. Will correct electrolyte abnormalities if needed. 5. Acute pain due to injury on chronic pain, present on admission. Active. -History of chronic back pain, fibromyalgia and chronic pancreatitis with overall baseline pain level of 5-6/10. -Continue ketorlac 10 mg three times daily as needed, gabapentin 900 mg four times daily, flexeril 10 mg three times daily as needed and oxycodone 5-10 mg every 3 hours as needed for severe pain. 6. Anxiety and depression, chronic, present on admission. Active. -Continue home buspar and duloxetine. Disposition: Patient will need retirement facility for rehabilitation. Quality VTE Deep Vein Thrombosis/Pulmonary Embolism Present on Admission: No
[2018-12-12 07:39] LABS: Add Manual Diff / Slide Review NO; Basophils Absolute Auto 100 /uL (0-100); Basophils Percent Auto 0.5 % (0-2); Eosinophils Absolute Auto 300 /uL (0-450); Hematocrit 34.5 % (36-46); Hemoglobin 11.5 g/dL (12.0-16.0); Lymphocytes Absolute Auto 2000 /uL (1100-4500); Lymphocytes Percent Auto 14.9 % (25-40); Mean Corpuscular HGB Conc 33.3 % (30-36); Mean Corpuscular Hemoglobin 29.5 PG (26-34); Mean Corpuscular Volume 88.6 fL (80-100); Monocytes Absolute Auto 600 /uL (0-900); Monocytes Percent Auto 4.5 % (3-14); Neutrophils Absolute Auto 10400 /uL (1500-7000); Neutrophils Percent Auto 78.1 % (50-75); Platelet Count 419 X10^3/uL (150-400); Red Blood Cell Count 3.89 X10^6/uL (4.0-5.2); Red Cell Distribution Width 14.8 % (11.6-14.8); White Blood Cell Count 13.3 X10^3/uL (4.5-11.0)
[2018-12-12 07:52] LABS: Blood Urea Nitrogen 14 mg/dL (7-17); Calcium 8.3 mg/dL (8.4-10.2); Carbon Dioxide 26 mmol/L (22-32); Chloride 100 mmol/L (98-107); Estimated Glomerular Filt Rate > 60.0 mL/min (>60); Glucose 83 mg/dL (70-100); HEMOLYSIS 16 (0-50); Potassium 4.3 mmol/L (3.4-5.1); Sodium 135 mmol/L (137-145)
[2018-12-12 07:54] LABS: Hemoglobin A1C% w Est Avg Glu 13.2 % (4.0-6.0)
[2018-12-12 08:00] VITALS: BP 104/76; PULSE 110; RESP 16; TEMP 36.1; O2SAT 98
[2018-12-12] MEDS: INSULIN ASPART 100 UNIT/ML INSULN PEN SUBCUT (08:22)
[2018-12-12] MEDS: INSULIN GLARGINE 100 UNIT/ML 3ML PEN 15 UNIT SUBCUT (08:22)
[2018-12-12] MEDS: GABAPENTIN 300 MG CAPSULE 900 MG PO ×3 (08:25→18:29)
[2018-12-12] MEDS: DOCUSATE 100 MG CAPSULE PO (08:25)
[2018-12-12] MEDS: POLYETHYLENE GLYCOL 3350 17 GM POWD.PACK PO (08:26)
[2018-12-12] MEDS: ENOXAPARIN 30 MG/0.3 ML SYRINGE SUBCUT (08:26)
[2018-12-12] MEDS: BUSPIRONE 5 MG TABLET 10 MG PO ×2 (08:26→16:17)
[2018-12-12] MEDS: ACETAMINOPHEN 325 MG TABLET 975 MG PO ×2 (08:26→16:16)
--- NOTE | 2018-12-12 08:57 | PM.PNPO.1 ---
Subjective Date Patient Seen: 12/12/18 Time Patient Seen: 08:57 Interval history: Hospital day 6, postop day 5 following right intratrochanteric fracture with ORIF of plate and screw by Dr. Celestin. Patient is weight-bearing as tolerated. Has continued limited ambulation. Has been working with PT/OT or recommending SNF. community planner is looking at [facility] and awaiting authorization by her insurance. Pain controlled with oxycodone. Exam Vital Signs (past 8 hours): - 12/12/18 01:02 12/12/18 04:08 12/12/18 08:00 Temperature 97.9 F 98.2 F 97.0 F L Pulse Rate 107 H 106 H 110 H Respiratory Rate 16 16 16 Blood Pressure 143/97 H 119/77 104/76 Pulse Oximetry 97 99 98 Oxygen Delivery Method Room Air Oxygen Flow Rate 0 Narrative Exam Narrative: Alert, oriented no acute distress resting in bed. Legs. Bulky dressing to right hip incision is dry without drainage or inflammation. No calf pain or swelling. Pulses symmetrical. Still some leg weakness to lift leg on the right. Objective Labs Result Diagrams: 12/12/18 07:10 12/12/18 07:10 Labs: Laboratory Results - last 24 hr 12/12/18 12/12/18 12/12/18 07:10 07:10 07:10 WBC 13.3 H RBC 3.89 L Hgb 11.5 L Hct 34.5 L MCV 88.6 MCH 29.5 MCHC 33.3 RDW 14.8 Plt Count 419 H Neut % (Auto) 78.1 H Lymph % (Auto) 14.9 L [place] % (Auto) 4.5 Eos % (Auto) 2.0 Baso % (Auto) 0.5 Neut # (Auto) 24191 H Lymph # (Auto) 2000 [place] # (Auto) 600 Eos # (Auto) 300 Baso # (Auto) 100 Sodium 135 L Potassium 4.3 Chloride 100 Carbon Dioxide 26 BUN 14 Creatinine 0.50 L Estimated GFR > 60.0 BUN/Creatinine Ratio 28.0 H Glucose 83 D Hemoglobin A1c 13.2 H Calcium 8.3 L Assessment & Plan Post-op Postoperative Procedures Operation Date: 12/07/18 14:15 Actual Procedures Side Surgeon p ORIF Hip DHS Right Jhonny Celestin MD Plan: We will change of right hip the dressing to a CovRsite dressing. The patient work with PT/OT. Anticipate discharge to SNF pending clearance by hospitalist. Patient will need a postop visit at [facility] in [place] at 2 weeks postop. Quality VTE Deep Vein Thrombosis/Pulmonary Embolism Present on Admission: No
--- NOTE | 2018-12-12 09:01 | P.PN_ITS ---
Subjective Date Patient Seen: 12/12/18 Time Patient Seen: 08:57 Interval history: Hospital day 6, postop day 5 following right intratrochanteric fracture with ORIF of plate and screw by Dr. Celestin. Patient is weight- bearing as tolerated. Has continued limited ambulation. Has been working with PT/OT or recommending SNF. office workforce planner is looking at [facility] [place] and awaiting authorization by her insurance. Pain controlled with oxycodone. Exam Vital Signs (past 8 hours): - 12/12/18 01:02 12/12/18 04:08 12/12/18 08:00 Temperature 97.9 F 98.2 F 97.0 F L Pulse Rate 107 H 106 H 110 H Respiratory Rate 16 16 16 Blood Pressure 143/97 H 119/77 104/76 Pulse Oximetry 97 99 98 Oxygen Delivery Method Room Air Oxygen Flow Rate 0 Narrative Exam Narrative: Alert, oriented no acute distress resting in bed. Legs. Bulky dressing to right hip incision is dry without drainage or inflammation. No calf pain or swelling. Pulses symmetrical. Still some leg weakness to lift leg on the right. Objective Labs Result Diagrams: 12/12/18 07:10 12/12/18 07:10 Labs: Laboratory Results - last 24 hr 12/12/18 12/12/18 12/12/18 07:10 07:10 07:10 WBC 13.3 H RBC 3.89 L Hgb 11.5 L Hct 34.5 L MCV 88.6 MCH 29.5 MCHC 33.3 RDW 14.8 Plt Count 419 H Neut % (Auto) 78.1 H Lymph % (Auto) 14.9 L [place] % (Auto) 4.5 Eos % (Auto) 2.0 Baso % (Auto) 0.5 Neut # (Auto) 69323 H Lymph # (Auto) 2000 [place] # (Auto) 600 Eos # (Auto) 300 Baso # (Auto) 100 Sodium 135 L Potassium 4.3 Chloride 100 Carbon Dioxide 26 BUN 14 Creatinine 0.50 L Estimated GFR > 60.0 BUN/Creatinine Ratio 28.0 H Glucose 83 D Hemoglobin A1c 13.2 H Calcium 8.3 L Assessment & Plan Post-op Postoperative Procedures Operation Date: 12/07/18 14:15 Actual Procedures Side Surgeon p ORIF Hip DHS Right Jhonny Celestin MD Plan: We will change of right hip the dressing to a CovRsite dressing. The patient work with PT/OT. Anticipate discharge to SNF pending clearance by hospitalist. Patient will need a postop visit at [facility] in [place] at 2 weeks postop. Quality VTE Deep Vein Thrombosis/Pulmonary Embolism Present on Admission: No
--- NOTE | 2018-12-12 10:09 | PT.IPTN ---
Current Diagnoses Type 1 diabetes mellitus without complications (12/07/18) Other retention of urine (12/07/18) Hyperglycemia, unspecified (12/07/18) Fracture of unspecified part of neck of right femur, initial encounter for closed fracture (12/07/18) Nondisplaced intertrochanteric fracture of right femur, initial encounter for closed fracture (12/07/18) Surgery Performed Operation Date: 12/07/18 14:15 Actual Procedures p ORIF Hip DHS(Right) - Jhonny Celestin MD Physical Therapy Treatment Note M2 PT-IP Current Condition Start: 12/08/18 08:15 Freq: NEEDED Status: Active Protocol: Document 12/08/18 10:27 DLM (Rec: 12/08/18 10:42 DLM [id number]) Physical Therapy Current Condition Current Condition Evaluation Date 12/08/18 Treatment Diagnosis right hip ORIF, fall with fracture, impaired gait Onset Date 12/07/18 Weight Bearing Status Weight Bearing Status Weight Bear as Tolerated M3 PT-IP Subjective Start: 12/08/18 08:15 Freq: NEEDED Status: Active Protocol: Document 12/12/18 09:25 CLB (Rec: 12/12/18 10:08 CLB [id number]) Subjective Physical Therapy Visit Type Type Treatment Note Visit Start Time 09:25 Visit Stop Time 09:51 Total Visit Minutes 26 Number of NATIONAL SALES TRAINER Visits 1 Physical Therapy Visit Comments Patient Comments Pt willing to ambulate with therapy. Therapy Pain Assessment Pain When Pain Assessed During Mobility Pain Present Pain Present Pain Reported Location Right Hip Intensity 5 Scale Used Numeric (1 - 10) Description Aching Pain Behaviors Wincing Pain Management Techniques Apply Cold Re-positioning Timing of Activity with Medications M4 PT-IP Mobility and Gait Start: 12/08/18 08:15 Freq: NEEDED Status: Active Protocol: Document 12/12/18 09:25 CLB (Rec: 12/12/18 10:08 CLB [id number]) PT-Bed Mobility Assessment Supine to Sit Supine to Sit Minimal Assistance 1 Person Assistance Sit to Supine Sit to Supine Minimal Assistance 1 Person Assistance PT-Transfer Assessment Sit to and From Stand Sit to and from Stand Contact Guard Assistance 1 Person Assistance Use of Upper Extremities Equipment Transfer Assistive Device Gait Belt Front Wheeled Walker Transfers Transfer Destination Bed Toilet Transfer Technique Stand Step Pivot Transfer Ability Level of Assist Contact Guard Assistance Comments Mobility Comments Pt requires Min A of RLE sup<> sit Gait Assessment Gait Gait Assistance Required: Contact Guard Assist Distance (Feet) 70 Assistive Devices Assistive Device Gait Belt Front Wheeled Walker Gait Deviations General Gait Pattern Antalgic Decreased Stride Length Decreased Feet Clearance Step-to Gait Factors Limiting Gait Function Factors Limiting Gait Function Decreased Activity Tolerance Decreased Strength Limited Range of Motion Pain Poor Balance Comments Gait Comments Pt increased ambulation to ~ 70ft but continues to use UE to prevent full weight on RLE. Pt needs cues for step sequencing. M5 PT-IP Objective Assessments Start: 12/08/18 08:15 Freq: NEEDED Status: Active Protocol: Document 12/08/18 10:27 DLM (Rec: 12/08/18 10:42 DLM [id number]) Orientation Orientation/Cognition Level of Alertness Alert Orientation Name Age Birthday Month Date Year Day of Week Place Situation Language Function Ability No Deficits Noted Safety Awareness Understands Safety Issues Memory Description No Deficits Noted Comments she has difficulty concentration due to her pain Gross Range of Motion Upper Extremity ROM Assessment Within Functional Limits Impairments hx of bursitis in right shoulder Lower Extremity ROM Assessment Right Impaired Impairments pain limits all right hip motions Strength Upper Extremity Strength Assessment Within Functional Limits Shoulder hx right shoulder pain with increased use Lower Extremity Strength Assessment Right Impaired Hip flexion- she can not lift foot off floor, pain limits all Knee pain limits use, ext 2+/5 Ankle moving actively Comments Strength Comments pain in right hip area limits all activity Coordination Assessment Gross Coordination Gross Coordination WNL Sensation Assessment Sensation Gross Sensation Right LE Impaired Left LE Impaired Light Touch Impaired Sensation Description Numbness Pain Comments Sensation Comments hx of neuropathy in feet Muscle Tone Muscle Tone WNL Yes M6 PT-IP Treatment Start: 12/08/18 08:15 Freq: NEEDED Status: Active Protocol: Document 12/12/18 09:25 CLB (Rec: 12/12/18 10:08 CLB [id number]) Physical Therapy Treatment Exercises Exercises Ankle Pumps Quad Sets Heel Slides M7 PT-IP Assessment and Plan Start: 12/08/18 08:15 Freq: NEEDED Status: Active Protocol: Document 12/12/18 09:25 CLB (Rec: 12/12/18 10:08 CLB [id number]) PT Summary Assessment and Plan Potential Rehabilitation Potential Good Status of Condition at Evaluation Evolving Summary Impairments Pain ROM Strength Balance Bed Mobility Transfers Gait Activity Tolerance Progress Towards Goals Slow Progress due to Pain Slow Progress due to Activity Tolerance Assessment Summary Pt improved with gait distance but continues to use UE to prevent WB on RLE. Pt ambulates slowly and requires cues for step sequencing with walker during gait. Goals Bed Mobility Goal Independent Transfer Goal Standby Assistance Front Wheeled Walker Gait Goal Contact Guard Assistance Front Wheel Walker Gait Distance 50 feet Days to Meet Goals 3 Frequency of Treatment Frequency Of Treatment Twice a Day Treatment Plan Physical Therapy Treatment Plan Bed Mobility Training Transfer Training Gait Training Therapeutic Exercise Balance Retraining Post Op Education Discharge Planning Hot or Cold Pack Other Recommendations and Next Treatment prog. gait distance and speed, Focus increase WB on the RLE as tolerated. Recommendations To Nursing Amount of Assist Needed Standby Assistance Discharge Recommendations PT Discharge Recommendations SNF Rehab
[2018-12-12] MEDS: LORazepam 0.5 MG TABLET PO ×2 (11:53→18:21)
--- NOTE | 2018-12-12 12:00 | PT.IPTN ---
Current Diagnoses Type 1 diabetes mellitus without complications (12/07/18) Other retention of urine (12/07/18) Hyperglycemia, unspecified (12/07/18) Fracture of unspecified part of neck of right femur, initial encounter for closed fracture (12/07/18) Nondisplaced intertrochanteric fracture of right femur, initial encounter for closed fracture (12/07/18) Surgery Performed Operation Date: 12/07/18 14:15 Actual Procedures p ORIF Hip DHS(Right) - Jhonny Celestin MD Physical Therapy Treatment Note Notes Pt is transferring to SNF today and has no other acute PT goals in that time, will sign off.
[2018-12-12 12:21] VITALS: PULSE 104; RESP 16; O2SAT 96
--- NOTE | 2018-12-12 14:48 | PM.DS.1 ---
History of Present Illness Date Patient Seen: 12/12/18 Chief complaint: GLF, hip pain Narrative: Written by Charlie ARMIJO: The patient is a 43-year-old female w/ PMH of DM 1T, lupus, fibromyalgia, chronic pancreatitis, osteoporosis, GERD, and chronic pain. Patient presented to the ED on 12/07/17 with right hip pain. Patient sustained a ground level fall. She was trying to get out of bed, her leg got caught in a blanket, she reports hopping and trying to maintain balance but ended up falling and landing onto her right hip. Unable to get up on her own. CT of the hip revealed right intertrochanteric fracture. No prior fractures or surgeries in the past. Patient has a history of diabetes mellitus type 1. Diabetes is uncontrolled. Reports lack of adherence with insulin due to frustration associated with frequent fingersticks. 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 Notes elevated blood glucose usually; however, more so in the past 2-3 weeks. Denies fever and chills. Two weeks ago had a sinus infection and one week ago a UTI. Currently, associated symptoms include polyuria and nausea. Reports chronic pain associated with chronic pancreatitis, fibromyalgia, and lumbar pain. Notes baseline pain level to be 5-6/10. 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 Discharge Providers Date of admission: 12/07/18 03:39 Discharge Date: 12/12/18 Primary care physician: Adán Dee MD Consults: 12/07/18 05:22 Consult to Orthopedic Surgery Routine Comment: Consulting Provider: Jhonny Celestin Reason for consultation: right hip fracture Has provider been notified: Yes 12/07/18 17:38 Consult to Discharge Planning Routine Comment: Consult to Physical Therapy Evaluate & Treat Comment: Physician Instructions: Evaluate and Treat Consult to Respiratory Therapy Evaluate & Treat Comment: Physician Instructions: Evaluate and treat 12/09/18 10:19 Consult to Occupational Therapy Evaluate & Treat Comment: Physician Instructions: Evaluate and treat Discharge provider: Mai Lilly DO Summary Discharge Diagnosis: 1. Acute pathological right hip fracture, status post ORIF, present on admission. Active. 2. Acute urinary retention, present on admission. Resolved. 3. Poorly controlled diabetes mellitus type I, chronic, present on admission. Active. 4. Acute hypovolemia, present on admission. Resolved. 5. Acute pain due to injury on chronic pain, present on admission. Active. 6. Anxiety and depression, chronic, present on admission. Stable. Hospital Course: Valerie Garnica is a 43-year-old female with a past medical history significant for poorly controlled diabetes mellitus type 1, osteoporosis, GERD, fibromyalgia and chronic back pain who presented after ground level fall with right hip pain and admitted for right hip fracture now status post ORIF. 1. Acute pathological right hip fracture, status post ORIF, present on admission. Active. -Patient presented after GLF with right hip pain. -CT pelvis demonstrated non-displaced intertrochanteric fracture of the right proximal femur. -Orthopedic surgeon, Dr. Celestin,was consulted and patient is now status post ORIF. We appreciate his time and care of the patient. -Continued gabapentin 900 mg four times daily, flexeril 10 mg three times daily as needed and oxycodone 5-10 mg every 3 hours as needed for severe pain. -Continued physical therapy and occupational therapy. It is anticipated that the patient will need [place] [facility] care prior to returning home. 2. Acute urinary retention, present on admission. Resolved. -Likely due to pain versus neurogenic from poorly controlled DMI. -Valente catheter removed. 3. Poorly controlled diabetes mellitus type I, chronic, present on admission. Active. -Hemoglobin A1C 13.3% 11/2018. Patient is a brittle diabetic and has wide fluctuations in blood glucose making glycemic control very difficult. -Changed Lantus regimen to 15 units twice daily to help improve coverage and avoid hypoglycemia at night. Continue medium dose correctional scale insulin. Will need close diabetic followup at SNF and outpatient. 4. Acute hypovolemia, present on admission. Resolved. -Secondary to hyperglycemia, dehydration and osmotic diuresis. -Continued IV fluids until adequately hydrated. 5. Acute pain due to injury on chronic pain, present on admission. Active. -History of chronic back pain, fibromyalgia and chronic pancreatitis with overall baseline pain level of 5-6/10. -Continued gabapentin 900 mg four times daily, flexeril 10 mg three times daily as needed and oxycodone 5-10 mg every 3 hours as needed for severe pain. 6. Anxiety and depression, chronic, present on admission. Stable. -Continued home buspar and duloxetine. Status at Discharge Functional status at discharge: uses cane/walker Exam Vital Signs (past 8 hours): - 12/12/18 08:00 12/12/18 12:21 Temperature 97.0 F L Pulse Rate 110 H 104 H Respiratory Rate 16 16 Blood Pressure 104/76 Pulse Oximetry 98 96 Oxygen Delivery Method Room Air Oxygen Flow Rate 0 Narrative Exam Narrative: General: Middle-aged female sitting in bedside chair appears mildly uncomfortable, in no acute distress, appears older than stated age, well-developed, well-nourished, appropriately interactive. HEENT: Normocephalic, atraumatic. External ears without defect. Pupils equal, round, and reactive to light. Anicteric sclerae, moist conjunctivae, and no lid lag. Poor dentition. Neck: Supple with full range of motion. No lymphadenopathy or thyromegaly. Cardiovascular: Regular rate and rhythm without murmurs, rubs, or gallops appreciated. Pulmonary: Clear to auscultation bilaterally without crackles, wheezes, or rhonchi. Normal respiratory effort with no use of accessory muscles. Abdomen: Soft, bowel sounds present, nontender, nondistended. No hepatosplenomegaly or masses appreciated. Extremities: No clubbing, cyanosis, or edema. Dressing in place over right hip c/d/i without any surrounding erythema. Skin: Normal temperature, turgor, and texture; no rash, ulcers, or subcutaneous nodules appreciated. Neurological: Cranial nerves grossly intact. Psychiatric: Emotionally labile. Alert and oriented to person, place, and time. Objective Labs Result Diagrams: 12/12/18 07:10 12/12/18 07:10 Labs: Laboratory Results - last 24 hr 12/12/18 12/12/18 12/12/18 07:10 07:10 07:10 WBC 13.3 H RBC 3.89 L Hgb 11.5 L Hct 34.5 L MCV 88.6 MCH 29.5 MCHC 33.3 RDW 14.8 Plt Count 419 H Neut % (Auto) 78.1 H Lymph % (Auto) 14.9 L [place] % (Auto) 4.5 Eos % (Auto) 2.0 Baso % (Auto) 0.5 Neut # (Auto) 03169 H Lymph # (Auto) 2000 [place] # (Auto) 600 Eos # (Auto) 300 Baso # (Auto) 100 Sodium 135 L Potassium 4.3 Chloride 100 Carbon Dioxide 26 BUN 14 Creatinine 0.50 L Estimated GFR > 60.0 BUN/Creatinine Ratio 28.0 H Glucose 83 D Hemoglobin A1c 13.2 H Calcium 8.3 L Discharge Plan Discharge Plan Patient Disposition: SNF Transfer to: [facility] [place] Transportation: Facility vehicle I certify the postop hospital [place] [facility] care is medically necessary on a continuing basis for any conditions for which he/ she received care during this hospitalization.: Yes The receiving facility has agreed to accept transfer and provide medical treatment.: Yes Discharge Med Rec/Prescriptions Prescriptions: New acetaminophen 325 mg Tablet 975 mg PO TID PRN (Reason: Pain, Moderate) Qty: 30 RF: 0 oxycodone 5 mg Tablet 5 mg PO Q3HR PRN (Reason: Pain, Moderate (4-6)) Qty: 30 RF: 0 oxycodone 10 mg Tablet 10 mg PO Q3HR PRN (Reason: Pain, Severe (7-10)) Qty: 30 RF: 0 polyethylene glycol 3350 17 gram Powder In Packet 17 gm PO DAILY Qty: 1 RF: 0 docusate sodium 100 mg Capsule 100 mg PO BID Qty: 60 RF: 0 Continued omeprazole 20 MG capsule,delayed release(DR/EC) 20 mg PO QDAY Qty: 0 RF: 0 ondansetron [Zofran ODT] 4 MG tablet,disintegrating 4 mg Sublingual Q4HP PRN (Reason: Nausea) RF: 0 Novolog Flexpen U-100 Insulin 100 unit/mL Insulin Pen Sub-Q AC Qty: 3 RF: 0 buspirone 10 mg Tablet 2 tab PO TID RF: 0 cyclobenzaprine 10 mg Tablet 10 mg PO TID PRN (Reason: pain) RF: 0 duloxetine 60 mg Capsule,Delayed Release(Dr/Ec) 60 mg PO DAILY RF: 0 loperamide 2 mg PO BID RF: 0 gabapentin 600 mg Tablet 1.5 tab PO QID RF: 0 Follow up/Referrals: Adán Dee MD [Primary Care Provider] - Discharge Health Status Brief summary of current health status: The patient is a 43-year-old female who endured a ground level fall with right hip fracture status post ORIF. She has been slow to mobilize and needs continued aggressive rehabilitation with physical therapy and occupational therapy. She is also a brittle diabetic and her insulin has been adjusted to b.i.d. dosing with somewhat better glycemic control. She will need follow-up with [facility] in 2 weeks. Multidrug resistant organism: No MDRO Provider Discharge Instructions Diet: Carb-consistent/Diabetic Activity: Activity as tolerated with FWW and PT. Special Rehabilitation Services Reason for rehabilitation: Post-operative therapy Rehab type: Physical therapy and Occupational therapy Discharge Data Primary Care Provider: Adán Dee V Attending Provider: Charlie Woodruff Admit Date/Time: 12/07/18 03:39 Discharges patient from system. Discharge Date/Time: 12/12/18 19:15 Quality VTE Deep Vein Thrombosis/Pulmonary Embolism Present on Admission: No
--- NOTE | 2018-12-12 14:58 | CM.DPC ---
DCP/Continued: Reviewed chart. SKIDDER placed call to [facility] spoke with Darlin. She confirms that they will pay for rehab at [facility]. Spoke with Vanessa at [facility] and she reports that they need something in writing? Placed return phone call to Darlin and she will coordinate something in writing with [facility]. In the meantime, hopeful that patient will transfer to [facility] for rehab either later today or first thing in AM. PASRR completed. Dr. Lilly completing orders. Patient aware and agreeable to plan. P: [facility] for short rehab stay. TERA Ramirez Discharge Planning/Care Management CM Discharge Assessment Start: 12/07/18 09:16 Freq: Status: Active Protocol: Document 12/07/18 09:16 (Rec: 12/07/18 09:23 [id number]) Discharge Planning Assessment Advance Directives? No Advance Directives on File No History Provided By Patient Medical Record Prior Living Arrangements House Household Members family Comment Lives with cousins Type of transporation used prior to Relies on Others admit Willing to Return to Facility? No Independent with ADL's Yes Is patient alert and oriented? Yes Needs Assistance With Meal Prep Managing Medications Home Chores / Shopping Barriers to Discharge Yes Comment Compliance with medications, blood sugars, falls Discharge Plan Home Transportation Arrangement Family Whiteboard Updated in Patient Room with Yes name and ext. # of Psych Arnp Review Status In Process Next Review Type Continued Stay Review 12/07/18 09:17 CM Disch. Assessment Note by Laya Duarte Addendum entered by Laya Duarte R.N. 12/07/18 09:54: Spoke to her cousin, Katerina. She stated that she helps patient out with her shopping. Stated that she has not had history of any other falls. Original Note: DCP: Case received, EMR reviewed and met with patient. Introduced self and role. DCP template completed with information currently available, as well as by patient. PCP: Dr. Dee/[facility] Payer: confirmed: Medicaid/[facility] Patient came to hospital via ambulance due to hip pain. Apparently, she had a ground level fall, she had gotten her foot caught in the blanket and landed on her hip. Patient has closed R. hip Fracture. She will be having an ORIF today, and according to notes, should be partial weight bearing after the surgery. Patient has history of Diabetes type 1, and had not been checking her blood sugars. Her blood sugar when she came in was 700. Patient also has history of Lupus, Pancreatitis. She is a smoker. Met with her, she is alert and oriented. She does not drive, and lives with her cousins at home. She has been independent in the home setting. Asked her if she checked her blood sugars at home, and she stated that she does. She also stated that she has not seen Dr. Dee in quite sometime, but goes to the [facility]. P:DCP to follow closely. Will be having her surgery today. Will see how she does with physical therapy afterward. Laya Duarte RN/Bag Machine Operator Helper Initialized on 12/07/18 09:17 - END OF NOTE Document 12/07/18 09:50 (Rec: 12/07/18 09:54 [id number]) Discharge Planning Assessment Advance Directives? No Advance Directives on File No History Provided By Patient Medical Record Prior Living Arrangements House Household Members family Comment Lives with cousins Type of transporation used prior to Relies on Others admit Willing to Return to Facility? No Independent with ADL's Yes Is patient alert and oriented? Yes Needs Assistance With Meal Prep Managing Medications Home Chores / Shopping Comment At this time. R/o need for ongoing IV abx pending POC in hospital. Barriers to Discharge Yes Comment Compliance with medications, blood sugars, falls Discharge Plan Home Transportation Arrangement Family Whiteboard Updated in Patient Room with Yes name and ext. # of Psych Arnp Review Status In Process Next Review Type Continued Stay Review Document 12/12/18 14:56 KJS (Rec: 12/12/18 14:58 KJS [id number]) Discharge Planning Assessment Assigned Psych Arnp TERA Ramirez Advance Directives? No Advance Directives on File No History Provided By Patient Medical Record Prior Living Arrangements House Household Members family Comment Lives with cousins Type of transporation used prior to Relies on Others admit Willing to Return to Facility? No Independent with ADL's Yes Is patient alert and oriented? Yes Needs Assistance With Meal Prep Managing Medications Home Chores / Shopping Comment At this time. R/o need for ongoing IV abx pending POC in hospital. Barriers to Discharge Yes Comment Compliance with medications, blood sugars, falls Discharge Plan [facility] Facility Transportation Arrangement Family Referrals Initiated [facility] If patient plan is SNF: Has PASSR been Yes completed? [facility] SN[facility] been contacted Yes Whiteboard Updated in Patient Room with Yes name and ext. # of Psych Arnp Review Status In Process Next Review Type Continued Stay Review
--- NOTE | 2018-12-12 15:12 | PC.NURSE ---
Day Shift- Trying to coordinate dressing change with Shower today. Evening RN and INTERMISSION COORDINATOR aware. Pt reports 6-810 aching to right hip. Chronic low back pain and bilateral knee pain 6/10 baseline.
[2018-12-12 16:15] VITALS: BP 109/75; PULSE 111; RESP 16; TEMP 36.8; O2SAT 96
--- NOTE | 2018-12-12 16:45 | OT.IP.TRT ---
Current Diagnoses Type 1 diabetes mellitus without complications (12/07/18) Other retention of urine (12/07/18) Hyperglycemia, unspecified (12/07/18) Fracture of unspecified part of neck of right femur, initial encounter for closed fracture (12/07/18) Nondisplaced intertrochanteric fracture of right femur, initial encounter for closed fracture (12/07/18) Surgery Performed Operation Date: 12/07/18 14:15 Actual Procedures p ORIF Hip DHS(Right) - Jhonny Celestin MD Occupational Therapy Treatment Note M2 OT-IP Current Condition Start: 12/09/18 15:35 Freq: Status: Active Protocol: Document 12/11/18 13:11 [facility] (Rec: 12/11/18 13:33 [facility] [id number]) Occupational Therapy Current Condition Current Condition Evaluation Date 12/11/18 Treatment Diagnosis GLF, right intertrochanteric hip fx Diagnosis Onset Date 12/09/18 Weight Bearing Status Weight Bearing Status Weight Bear as Tolerated M3 OT- IP Subjective and Pain Start: 12/09/18 15:35 Freq: Status: Active Protocol: Document 12/12/18 16:43 [facility] (Rec: 12/12/18 16:45 [facility] [id number]) OT- Subjective Occupational Therapy Visit Type Type Patient Unavailable Notes When checking pt for OT treatment, pt shower running in the room. Per nursing notes to shower pt today. Therefore if pt still here tomorrow check on pt for OT treatment.
--- NOTE | 2018-12-12 17:07 | CM.DPNOTE ---
DCP/continued: Reviewed chart. Patient has been medically cleared for discharge. Spoke with Darlin at [facility] this AM. She confirms that they will pay for rehab at SNF. Worked most of today with Vanessa and Bushra to secure placement at [facility]. Contracts written and signed by both [facility] and [facility]. In addition completed form for Medicaid transport. Received call from Medicaid and [facility] will be providing the cabulance transport. P: [facility] today. Patient and RN updated. Rhonda Mcleod MSW
--- NOTE | 2018-12-12 19:12 | PC.NURSE ---
Pt A/O x3, VSS, medicated with oxycodone 10mg PO for pain 04/28. Changed right hip drsg to coversite, incision well approximated with zahra, CDI, no s/ss infection, afebrile 98.2. all documentation given to [facility] personnel/flatbed driver. all belongings with pt.
== END 2018-12-12 19:15 | DRG 482 ==
LOC: ED 02:45 → AC 03:39
PROVIDERS: Internal Medicine; Nurse Practitioner Adult Health; Orthopaedic Surgery; Admitting Provider Nurse Practitioner Gerontology; Emergency Provider Emergency Medicine; Family Provider Family Medicine; PCP Internal Medicine; Visit Provider Nurse Practitioner Gerontology
PROC: 0QS604Z Reposition Right Upper Femur with Internal Fixation Device, Open Approach (ICD-10-PCS; principal; 2018-12-07 14:15)
DX: S72.144A Nondisplaced intertrochanteric fracture of right femur, initial encounter for closed fracture (principal); R33.9 Retention of urine, unspecified; E10.65 Type 1 diabetes mellitus with hyperglycemia; M81.0 Age-related osteoporosis without current pathological fracture; W18.30XA Fall on same level, unspecified, initial encounter; M79.7 Fibromyalgia; G89.29 Other chronic pain; E86.1 Hypovolemia; Y92.003 Bedroom of unspecified non-institutional (private) residence as the place of occurrence of the external cause; F41.9 Anxiety disorder, unspecified; F32.9 Major depressive disorder, single episode, unspecified; E10.649 Type 1 diabetes mellitus with hypoglycemia without coma; Z79.4 Long term (current) use of insulin
CPT/HCPCS: 36415; 51701; 72170; 72192; 73503; 76000; 80048; 80053; 81001; 82009; 82962; 83036; 83735; 85014; 85018; 85025; 86850; 86900; 86901; 96372; 97110; 97116; 97162; 97165; 97530; 99283; 99284; C9113; J0690; J1170; J1650; J1885; J2060; J2250; J2270; J2405; J2704; J3010

== ENCOUNTER → 2019-06-04 09:59 | Outpatient (CLI) | payer MEDICAID, OTHER, SELFPAY ==
[2018-12-07 04:28] VITALS: BMI 22.1
--- NOTE | 2019-06-04 | DI.RAD.S_ITS ---
PROCEDURE: XR HIP W PEL IF DONE RT 2V INDICATIONS: TROCHAHTERIC BURSITIS RT HIP TECHNIQUE: 2 views of the hip were acquired. COMPARISON: [facility], CT, CT PEL WO CON, 12/07/2018, 1:50. [facility], CR, XR PELVIS 1-2V, 12/07/2018, 0:49. [facility], CR, XR HIP W PEL IF DONE RT 4V, 12/07/2018, 14:46. FINDINGS: Bones: There is redemonstration of proximal right femur internal fixation hardware without evidence of acute or complication. Previously identified nondisplaced intertrochanteric fracture of the proximal right femur is seen on comparison CT of 12/07/18 is not well identified radiographically. There are mild degenerative changes of the right hip joint. Soft tissues: No suspicious soft tissue calcifications or masses. IMPRESSION: Proximal right femur internal fixation hardware with no evidence of acute hardware complication. Previously identified nondisplaced intertrochanteric fracture of the proximal right femur seen on comparison CT of 12/07/18 is not well identified radiographically on this exam. Dictated by: Claudio Fajardo M.D. on 06/04/2019 at 15:29 Approved by: Claudio Fajardo M.D. on 06/04/2019 at 15:33
== END ==
PROVIDERS: Family Provider Family Medicine; PCP Internal Medicine; Visit Provider Surgery
DX: M70.61 Trochanteric bursitis, right hip (principal)
CPT/HCPCS: 73502

== ENCOUNTER → 2020-03-19 14:23 | Outpatient (CLI) | payer MEDICAID, OTHER, SELFPAY ==
[2018-12-07 04:28] VITALS: BMI 22.1
--- NOTE | 2020-03-19 | DI.RAD.S_ITS ---
PROCEDURE: XR HIP W PEL IF DONE RT 2V INDICATIONS: RIGHT HIP AND ANKLE PAIN TECHNIQUE: AP pelvis with lateral view(s) of the right hip(s). COMPARISON: [facility], , XR HIP W PEL IF DONE RT 2V, 06/04/2019, 10:01. FINDINGS: Bones: No fractures or dislocations. Pelvic ring appears intact. No suspicious bony lesions. Internal fixation of right femur with lateral sideplate and dynamic screw. Lumbar spondylosis and mild bilateral hip degeneration Soft tissues: The visualized bowel gas pattern is normal. No suspicious soft tissue calcifications. IMPRESSION: Unchanged alignment of proximal right femur fixation hardware Mild bilateral hip degeneration as before Dictated by: Ricardo Chong M.D. on 03/19/2020 at 15:58 Approved by: Ricardo Chong M.D. on 03/19/2020 at 16:00
--- NOTE | 2020-03-19 | DI.RAD.S_ITS ---
PROCEDURE: XR ANKLE RT MIN 3V INDICATIONS: RIGHT HIP AND ANKLE PAIN TECHNIQUE: 3 views of the ankle were acquired. COMPARISON: None. FINDINGS: Bones: Transverse linear sclerosis seen in the posterior calcaneus. Plantar calcaneal spur. Diffuse hindfoot and midfoot joint degeneration. Soft tissues: No tibiotalar joint effusion. Achilles tendon appears normal. IMPRESSION: Linear sclerosis projects at posterior calcaneus suggestive of nondisplaced calcaneal fracture. Further assessment could be performed with MRI as clinically necessary. Chronic plantar calcaneal spur. Dictated by: Ricardo Chong M.D. on 03/19/2020 at 16:16 Approved by: Ricardo Chong M.D. on 03/19/2020 at 16:19
== END ==
PROVIDERS: Family Provider Family Medicine; PCP Physician Assistant; Referring Provider Physician Assistant; Visit Provider Physician Assistant
DX: M25.551 Pain in right hip (principal); M25.571 Pain in right ankle and joints of right foot; M16.0 Bilateral primary osteoarthritis of hip; M47.816 Spondylosis without myelopathy or radiculopathy, lumbar region; M77.31 Calcaneal spur, right foot
CPT/HCPCS: 73502; 73610

== ENCOUNTER 2020-03-21 19:55 | Emergency (ER) | payer MEDICAID, OTHER, SELFPAY ==
[2018-12-07 04:28] VITALS: BMI 22.1
[2020-03-21 20:02] VITALS: PULSE 110; O2SAT 100
[2020-03-21 20:08] VITALS: BP 147/83
--- NOTE | 2020-03-21 20:08 | DI.RAD.S_ITS ---
PROCEDURE: XR ANKLE RT MIN 3V INDICATIONS: twist TECHNIQUE: 3 views of the ankle were acquired. COMPARISON: [facility], CR, XR FOOT RT MIN 3V, 03/21/2020, 20:11. [facility], CR, XR ANKLE RT MIN 3V, 03/19/2020, 14:25. FINDINGS: Bones: Previous area of sclerosis within the posterior calcaneus is not visualized on current exam. Ankle mortise is normally aligned. No suspicious bony lesions. Calcaneal spur is noted. Soft tissues: No tibiotalar joint effusion. Achilles tendon appears normal. IMPRESSION: 1. Previous area of sclerosis within the posterior calcaneus is no longer visualized. 2. No visualized acute fracture or dislocation. However, if clinical concern and/or pain persist, short interval imaging followup in 7-10 days is recommended, as occult injury cannot be definitively excluded. Dictated by: Jessica Tovar M.D. on 03/21/2020 at 20:30 Approved by: Jessica Tovar M.D. on 03/21/2020 at 20:32
--- NOTE | 2020-03-21 20:08 | DI.RAD.S_ITS ---
PROCEDURE: XR FOOT RT MIN 3V INDICATIONS: pain after fall TECHNIQUE: 3 views of the foot were acquired. COMPARISON: [facility], CR, XR ANKLE RT MIN 3V, 03/21/2020, 20:11. [facility], CR, XR ANKLE RT MIN 3V, 03/19/2020, 14:25. FINDINGS: Bones: Previous calcaneal sclerosis is not well-visualized on current exam. Calcaneal spur is present. Soft tissues: No tibiotalar joint effusion. Achilles tendon appears normal. IMPRESSION: No visualized acute fracture or dislocation. However, if clinical concern and/or pain persist, short interval imaging followup in 7-10 days is recommended, as occult injury cannot be definitively excluded. Dictated by: Jessica Tovar M.D. on 03/21/2020 at 20:32 Approved by: Jessica Tovar M.D. on 03/21/2020 at 20:33
--- NOTE | 2020-03-21 20:12 | ED_ITS ---
HPI - Extremity Injury (Lower) General Chief Complaint: Extremity Injury, Lower Stated Complaint: states right ankle broken Time Seen by Provider: 03/21/20 20:05 Source: patient Mode of arrival: Ambulatory Limitations: no limitations History of Present Illness HPI Narrative: 44-year-old female here for evaluation of right ankle/foot/hip injury. Patient states that earlier in the week she fell and injured her right lower extremity. She had x-rays performed on Tuesday. She was told there was a ?fracture? was given crutches. Was not placed in a splint. States that last evening she twisted her ankle again off a curb. Has had quite a bit of discomfort with standing and walking. Has been using her crutches. Did not hit her head. Has not tried anything for the symptoms other than the crutches prior to arrival. Related Data Home Medications Medication Instructions Recorded Confirmed omeprazole 20 mg PO QDAY #0 10/09/12 12/07/18 ondansetron [Zofran ODT] 4 mg SUBLINGUAL Q4HP PRN 02/08/18 12/07/18 buspirone 2 tab PO TID 12/08/18 12/08/18 cyclobenzaprine 10 mg PO TID PRN 12/08/18 12/08/18 duloxetine 60 mg PO DAILY 12/08/18 12/08/18 gabapentin 1.5 tab PO QID 12/08/18 12/08/18 loperamide 2 mg PO BID 12/08/18 12/08/18 Previous Rx's Medication Instructions Recorded Novolog Flexpen U-100 Insulin 0 unit SUB-Q AC #3 unit 02/12/18 acetaminophen 975 mg PO TID PRN #30 tab 12/12/18 docusate sodium 100 mg PO BID #60 cap 12/12/18 oxycodone 5 mg PO Q3HR PRN #30 tab 12/12/18 oxycodone 10 mg PO Q3HR PRN #30 tab 12/12/18 polyethylene glycol 3350 17 gm PO DAILY #1 pkg 12/12/18 Allergies Allergy/AdvReac Type Severity Reaction Status Date / Time amitriptyline Allergy Intermediate Verified 12/07/18 14:09 sulfasalazine [SULFASALAZINE] Allergy Mild PANCREATITI Verified 02/08/18 16:35 S trazodone AdvReac Intermediate HEART Verified 02/08/18 16:35 PALPITATIONS Review of Systems Constitutional Constitutional: Denies fever(s) Musculoskeletal Comments: Right ankle pain, right hip pain, right foot pain Integumentary/Breasts Skin/Breast: Denies lesions and Denies rash Neurologic Neurologic: Denies behavioral changes Psychiatric Psychiatric: Denies behavioral changes Hematologic/Lymphatic Hematologic/Lymphatic: Denies easy bleeding and Denies easy bruising Patient History Medical History Gastroesophageal reflux disease (Acute) Insulin dependent diabetes mellitus (Acute) Lupus (Acute) Osteoporosis (Acute) Surgical History No pertinent past surgical history (Acute) Family History Mother Diabetes mellitus Congestive heart failure Pancreatic cancer Father Diabetes mellitus Brother Diabetes mellitus Pancreatitis Sister Drug overdose Social History household members: family Smoking Status: Current every day smoker alcohol intake: current Smoking Status: Current every day smoker alcohol intake frequency: holidays/special occasions only Substance Use Type: does not use Exam Initial Vital Signs Initial Vital Signs: Vital Signs Pulse Rate 110 H 03/21/20 20:02 Pulse Oximetry 100 03/21/20 20:02 Const General: cooperative and comfortable Resp Effort & Inspection: normal respiratory effort Cardio Pulses: dorsalis pedis present on the right Skin Lesions: no lesions Rashes: no rashes Neuro General: patient alert, patient awake and patient oriented x3 Speech: speech normal Sensory Exam: no sensory deficits noted Extrem Other: Tenderness to palpation right lateral hip. Can flex and extend and internally rotate the right hip without discomfort. Right knee is unremarkable. No tenderness to palpation proximal right fibula. Has tenderness to palpation both posterior and along the lateral aspect of the right ankle. No tenderness to palpation over the calcaneus. Also has tenderness palpation over the dorsum midfoot right foot. Psych Appearance: well kempt Procedures Orthopedic Splinting/Casting Injury #1: Side: right Lower Extremity Immobilizer: Tristen wrap Post splinting neuro exam: no change Post splinting vascular exam: no change Placed by: Nursing Course Orders Ordered: ED Orders 03/21/20 20:08 XR ankle RT min 3V Stat XR foot RT min 3V Stat Discontinued Medications Hydrocodone Bitart/Acetaminophen ([place] 5/325) 1 tab PO NOW ONE Stop: 03/21/20 20:39 Last Admin: 03/21/20 20:47 Dose: 1 tab Documented by: JOSEPH Vital Signs Vital signs: Vital Signs - 8 hr 03/21/20 20:02 03/21/20 20:08 Pulse Rate 110 H Blood Pressure 147/83 H Pulse Oximetry 100 MDM - Extremity Injury (Lower) Imaging Data Extremity x-ray #1: Radiologist's Impression: [address] [address] XRay Report Signed Patient: Valerie Garnica [facility]#: [id number] : 1975Acct:[id number] Age/Sex: 44 / FDate of Service: 03/21/20 Loc: ED Accession Number: [id number] Procedure: XR ankle RT min 3V Ordering Provider: Patel Mendes D.O. PROCEDURE: XR ANKLE RT MIN 3V INDICATIONS: twist TECHNIQUE: 3 views of the ankle were acquired. COMPARISON: [facility], CR, XR FOOT RT MIN 3V, 03/21/2020, 20:11. [facility], CR, XR ANKLE RT MIN 3V, 03/19/2020, 14:25. FINDINGS: Bones: Previous area of sclerosis within the posterior calcaneus is not visualized on current exam. Ankle mortise is normally aligned. No suspicious bony lesions. Calcaneal spur is noted. Soft tissues: No tibiotalar joint effusion. Achilles tendon appears normal. IMPRESSION: 1. Previous area of sclerosis within the posterior calcaneus is no longer visualized. 2. No visualized acute fracture or dislocation. However, if clinical concern and/or pain persist, short interval imaging followup in 7-10 days is recommended, as occult injury cannot be definitively excluded. Dictated by: Jessica Tovar M.D. on 03/21/2020 at 20:30 Approved by: Jessica Tovar M.D. on 03/21/2020 at 20:32 Extremity x-ray #2: Radiologist's Impression: [address] [address] XRay Report Signed Patient: Valerie Garnica [facility]#: [id number] : 1975Acct:[id number] Age/Sex: 44 / FDate of Service: 03/21/20 Loc: ED Accession Number: [id number] Procedure: XR foot RT min 3V Ordering Provider: Patel Mendes D.O. PROCEDURE: XR FOOT RT MIN 3V INDICATIONS: pain after fall TECHNIQUE: 3 views of the foot were acquired. COMPARISON: [facility], CR, XR ANKLE RT MIN 3V, 03/21/2020, 20:11. [facility], CR, XR ANKLE RT MIN 3V, 03/19/2020, 14:25. FINDINGS: Bones: Previous calcaneal sclerosis is not well-visualized on current exam. Calcaneal spur is present. Soft tissues: No tibiotalar joint effusion. Achilles tendon appears normal. IMPRESSION: No visualized acute fracture or dislocation. However, if clinical concern and/or pain persist, short interval imaging followup in 7-10 days is recommended, as occult injury cannot be definitively excluded. Dictated by: Jessica Tovar M.D. on 03/21/2020 at 20:32 Approved by: Jessica Tovar M.D. on 03/21/2020 at 20:33 MDM Narrative Medical decision making narrative: Patient is neurovascularly intact. The x- rays today showed no acute fractures. Review the x-rays performed on March 19 showed a potential calcaneal fracture however this is not really demonstrated on the x-rays today. Had long discussion with the patient regarding this. We did discuss treatment. She has crutches. Will provide an Tristen bandage for comfort. We also discussed other conservative management. Patient was given return precautions and follow-up instructions. She expressed understanding and agreement. Discharge Plan Departure Patient Disposition: Home Clinical Impression: Right ankle sprain Qualifiers: Encounter type: initial encounter Involved ligament of ankle: unspecified ligament Qualified Code(s): S93.401A - Sprain of unspecified ligament of right ankle, initial encounter Instructions: How to Use Crutches, DI for Ankle Sprain, How to Apply an Elastic Wrap on Ankle Activity Restrictions/Additional Instructions: There were no fractures noted on the x-rays today. I do recommend that you keep your foot elevated. You can use the crutches as needed. Also recommend that you take anti-inflammatories such as Motrin or Naprosyn and Tylenol for any discomfort. You can also ice your ankle. You can walk on your ankle as tolerated. Return to the emergency department for any new worse symptoms Prescriptions: No Action omeprazole 20 MG capsule,delayed release(DR/EC) 20 mg PO QDAY Qty: 0 RF: 0 ondansetron [Zofran ODT] 4 MG tablet,disintegrating 4 mg Sublingual Q4HP PRN (Reason: Nausea) RF: 0 Novolog Flexpen U-100 Insulin 100 unit/mL Insulin Pen 0 unit Sub-Q AC Qty: 3 RF: 0 buspirone 10 mg Tablet 2 tab PO TID RF: 0 cyclobenzaprine 10 mg Tablet 10 mg PO TID PRN (Reason: pain) RF: 0 duloxetine 60 mg Capsule,Delayed Release(Dr/Ec) 60 mg PO DAILY RF: 0 loperamide 2 mg PO BID RF: 0 gabapentin 600 mg Tablet 1.5 tab PO QID RF: 0 acetaminophen 325 mg Tablet 975 mg PO TID PRN (Reason: Pain, Moderate) Qty: 30 RF: 0 oxycodone 5 mg Tablet 5 mg PO Q3HR PRN (Reason: Pain, Moderate (4-6)) Qty: 30 RF: 0 oxycodone 10 mg Tablet 10 mg PO Q3HR PRN (Reason: Pain, Severe (7-10)) Qty: 30 RF: 0 polyethylene glycol 3350 17 gram Powder In Packet 17 gm PO DAILY Qty: 1 RF: 0 docusate sodium 100 mg Capsule 100 mg PO BID Qty: 60 RF: 0 Referrals: Jhonny Evans PA-C [Primary Care Provider] -
[2020-03-21] MEDS: HYDROCODONE/ACET 5/325 TABLET 1 TAB PO (20:47)
[2020-03-21 21:29] VITALS: BP 107/68; PULSE 113; RESP 20; O2SAT 98
== END 2020-03-21 21:29 | disposition home or self-care (01) ==
PROVIDERS: Emergency Provider Emergency Medicine; Family Provider Family Medicine; PCP Physician Assistant
DX: S93.401A Sprain of unspecified ligament of right ankle, initial encounter (principal); W19.XXXA Unspecified fall, initial encounter
CPT/HCPCS: 73610; 73630; 99283

== ENCOUNTER 2021-06-13 20:45 | Emergency (ER) | payer MEDICAID, OTHER, SELFPAY ==
[2018-12-07 04:28] VITALS: BMI 22.1
[2021-06-13 21:16] VITALS: BP 138/78; PULSE 113; RESP 16; TEMP 36.4; O2SAT 100; BMI 23.1
--- NOTE | 2021-06-13 23:39 | ED_ITS ---
HPI - Wound/Laceration General Chief Complaint: Wound/Laceration Stated Complaint: lt middle finger cut Time Seen by Provider: 06/13/21 21:52 Source: patient Mode of arrival: Ambulatory Limitations: no limitations History of Present Illness HPI narrative: 45-year-old woman with a history of type 1 diabetes, fibromyalgia depression and anxiety cut her left middle finger, palmar surface over the PIP joint while peeling potatoes. The wound is approximately 1.5 cm in superficial. She comes in for further evaluation. She is up-to-date on tetanus. Related Data Home Medications Medication Instructions Recorded Confirmed omeprazole 20 mg capsule,delayed 20 mg PO QDAY #0 10/09/12 12/07/18 release ondansetron 4 mg disintegrating 4 mg SUBLINGUAL Q4HP PRN 02/08/18 12/07/18 tablet (Zofran ODT) buspirone 10 mg tablet 2 tab PO TID 12/08/18 12/08/18 cyclobenzaprine 10 mg tablet 10 mg PO TID PRN 12/08/18 12/08/18 duloxetine 60 mg capsule,delayed 60 mg PO DAILY 12/08/18 12/08/18 release gabapentin 600 mg tablet 1.5 tab PO QID 12/08/18 12/08/18 loperamide 2 mg PO BID 12/08/18 12/08/18 Previous Rx's Medication Instructions Recorded insulin aspart U-100 100 unit/mL 0 unit SUB-Q AC #3 unit 02/12/18 (3 mL) subcutaneous pen (Novolog Flexpen U-100 Insulin aspart) acetaminophen 325 mg tablet 975 mg PO TID PRN #30 tab 12/12/18 docusate sodium 100 mg capsule 100 mg PO BID #60 cap 12/12/18 oxycodone 10 mg tablet 10 mg PO Q3HR PRN #30 tab 12/12/18 oxycodone 5 mg tablet 5 mg PO Q3HR PRN #30 tab 12/12/18 polyethylene glycol 3350 17 gram 17 gm PO DAILY #1 pkg 12/12/18 oral powder packet ibuprofen 600 mg tablet 600 mg PO Q6H PRN #30 tab 03/21/20 Allergies Allergy/AdvReac Type Severity Reaction Status Date / Time amitriptyline Allergy Intermediate Verified 12/07/18 14:09 sulfasalazine [SULFASALAZINE] Allergy Mild PANCREATITI Verified 02/08/18 16:35 S trazodone AdvReac Intermediate HEART Verified 02/08/18 16:35 PALPITATIONS Review of Systems Review of Systems Narrative: Pertinent positive and negative findings as per HPI Remainder of review of systems is otherwise unremarkable for Constitutional: Fevers, chills, weakness ENT: No sore throat, neck pain, ear pain CV: Chest pain, palpitations, Respiratory: Cough, wheeze, dyspnea GI: Nausea, vomiting, diarrhea, Patient History Medical History (Updated 06/13/21 @ 23:57 by Char Perea MD) Gastroesophageal reflux disease Insulin dependent diabetes mellitus Lupus Osteoporosis Surgical History No pertinent past surgical history Family History Mother Diabetes mellitus Congestive heart failure Pancreatic cancer Father Diabetes mellitus Brother Diabetes mellitus Pancreatitis Sister Drug overdose Social History household members: family Smoking Status: Current every day smoker alcohol intake: current Smoking Status: Current every day smoker alcohol intake frequency: holidays/special occasions only Substance Use Type: does not use Exam Narrative Exam Narrative: General: Alert appropriate in no acute distress Respiratory: Able to speak in full sentences, no obvious respiratory distress Skin: No obvious rashes, warm and dry Neurologic: Grossly intact no obvious asymmetries or abnormalities Psych: appropriate insight and affect, cooperative Extremity: Left hand middle finger D IP crease with clean 1.5 cm laceration. Does not involve the deeper structures. There does non the appear to be any tendon involvement and she is completely neurovascularly intact. Initial Vital Signs Initial Vital Signs: Vital Signs Temperature 97.6 F 06/13/21 21:16 Pulse Rate 113 H 06/13/21 21:16 Respiratory Rate 16 06/13/21 21:16 Blood Pressure 138/78 06/13/21 21:16 Pulse Oximetry 100 06/13/21 21:16 Procedures Laceration Repair Left middle finger: Time of procedure: 23:54 Site: hand Side (If applicable): left Size (cm): 1.5 Description: linear Depth: simple, single layer Local Anesthetic: lidocaine 1% Amount of anesthesia used (mL): 2 Pre-repair: wound explored and irrigated extensively Skin layer closed with: nylon Size (cm): 4-0 Number of sutures: 2 Course Orders Ordered: Discontinued Medications Acetaminophen (Acetaminophen 325 Mg Tablet) 650 mg PO NOW ONE Stop: 06/13/21 23:39 Last Admin: 06/13/21 23:46 Dose: 650 mg Documented by: Vital Signs Vital signs: Vital Signs - 8 hr 06/13/21 21:16 Temperature 97.6 F Pulse Rate 113 H Respiratory Rate 16 Blood Pressure 138/78 Pulse Oximetry 100 MDM - Wound/Laceration MDM Narrative Medical decision making narrative: 45-year-old woman with small laceration to the left middle finger palmar surface. Two sutures placed with good aesthetic and hemostatic closure. Band-Aid applied. She tolerated procedure well. Went over signs and symptoms of tendon involvement as well as infection. Reviewed with her that she is at higher risk for both of these because of her diabetes in her lupus. She is followed at the [facility] clinic. Asked her to follow-up with them on TuesdayJune 22 to have the sutures removed Discharge Plan Departure Patient Disposition: Home Clinical Impression: Laceration Instructions: DI for Minor Laceration Activity Restrictions/Additional Instructions: Thank you for coming in today Please keep the small laceration on your middle finger clean and dry. Continue to use triple antibiotic ointment and a Band-Aid over the wound. Please follow- up with the clinic on June 22 to have the sutures removed. If you notice any dysfunction in your finger, increased swelling, redness or drainage from the wound, you need to be seen and re-evaluated I hope you heal quickly. Prescriptions: No Action omeprazole 20 MG capsule,delayed release(DR/EC) 20 mg PO QDAY Qty: 0 RF: 0 ondansetron [Zofran ODT] 4 MG tablet,disintegrating 4 mg Sublingual Q4HP PRN (Reason: Nausea) RF: 0 Novolog Flexpen U-100 Insulin 100 unit/mL Insulin Pen 0 unit Sub-Q AC Qty: 3 RF: 0 buspirone 10 mg Tablet 2 tab PO TID RF: 0 cyclobenzaprine 10 mg Tablet 10 mg PO TID PRN (Reason: pain) RF: 0 duloxetine 60 mg Capsule,Delayed Release(Dr/Ec) 60 mg PO DAILY RF: 0 loperamide 2 mg PO BID RF: 0 gabapentin 600 mg Tablet 1.5 tab PO QID RF: 0 acetaminophen 325 mg Tablet 975 mg PO TID PRN (Reason: Pain, Moderate) Qty: 30 RF: 0 oxycodone 5 mg Tablet 5 mg PO Q3HR PRN (Reason: Pain, Moderate (4-6)) Qty: 30 RF: 0 oxycodone 10 mg Tablet 10 mg PO Q3HR PRN (Reason: Pain, Severe (7-10)) Qty: 30 RF: 0 polyethylene glycol 3350 17 gram Powder In Packet 17 gm PO DAILY Qty: 1 RF: 0 docusate sodium 100 mg Capsule 100 mg PO BID Qty: 60 RF: 0 ibuprofen 600 mg tablet 600 mg PO Q6H PRN (Reason: pain) Qty: 30 RF: 0 Referrals: Jhonny Evans PA-C [Primary Care Provider] -
[2021-06-13] MEDS: ACETAMINOPHEN 325 MG TABLET 650 MG PO (23:46)
[2021-06-14 00:05] VITALS: BP 117/68; PULSE 99; RESP 17; TEMP 36.3; O2SAT 98
== END 2021-06-14 00:06 | disposition home or self-care (01) ==
PROVIDERS: Emergency Provider Emergency Medicine; PCP Physician Assistant
DX: S61.213A Laceration without foreign body of left middle finger without damage to nail, initial encounter (principal); W26.8XXA Contact with other sharp object(s), not elsewhere classified, initial encounter
CPT/HCPCS: 12001; 99283

== ENCOUNTER 2021-07-25 20:08 | Inpatient (IN) | payer MEDICAID, OTHER, SELFPAY ==
[2018-12-07 04:28] VITALS: BMI 22.1
[2021-07-25] VITALS (11 sets, daily range): BP systolic 101–142; BP diastolic 66–86; PULSE 100–106; RESP 20–28; TEMP 36.2; O2SAT 99–100; BMI 22.3
--- NOTE | 2021-07-25 20:10 | ED_ITS ---
HPI - SOB/Dyspnea General Chief Complaint: Shortness of Breath/Dyspnea Stated Complaint: SOB/NOT ABLE TO WALK FAR Time Seen by Provider: 07/25/21 20:10 History of Present Illness HPI Narrative: 45-year-old female daily smoker with history of Type 1 DM, fibromyalgia presents with increasing shortness of breath, fatigue, nausea and vomiting for the past few days. She's had increased trouble breathing with minimal exertion. She denies any change in bowel or bladder habits. She is not immunized against COVID. She denies any change in her diabetic regimen. Related Data Home Medications Medication Instructions Recorded Confirmed omeprazole 20 mg capsule,delayed 20 mg PO QDAY #0 10/09/12 12/07/18 release ondansetron 4 mg disintegrating 4 mg SUBLINGUAL Q4HP PRN 02/08/18 12/07/18 tablet (Zofran ODT) buspirone 10 mg tablet 2 tab PO TID 12/08/18 12/08/18 cyclobenzaprine 10 mg tablet 10 mg PO TID PRN 12/08/18 12/08/18 duloxetine 60 mg capsule,delayed 60 mg PO DAILY 12/08/18 12/08/18 release gabapentin 600 mg tablet 1.5 tab PO QID 12/08/18 12/08/18 loperamide 2 mg PO BID 12/08/18 12/08/18 Previous Rx's Medication Instructions Recorded insulin aspart U-100 100 unit/mL 0 unit SUB-Q AC #3 unit 02/12/18 (3 mL) subcutaneous pen (Novolog Flexpen U-100 Insulin aspart) acetaminophen 325 mg tablet 975 mg PO TID PRN #30 tab 12/12/18 docusate sodium 100 mg capsule 100 mg PO BID #60 cap 12/12/18 oxycodone 10 mg tablet 10 mg PO Q3HR PRN #30 tab 12/12/18 oxycodone 5 mg tablet 5 mg PO Q3HR PRN #30 tab 12/12/18 polyethylene glycol 3350 17 gram 17 gm PO DAILY #1 pkg 12/12/18 oral powder packet ibuprofen 600 mg tablet 600 mg PO Q6H PRN #30 tab 03/21/20 Allergies Allergy/AdvReac Type Severity Reaction Status Date / Time amitriptyline Allergy Intermediate Verified 07/25/21 20:20 sulfasalazine [SULFASALAZINE] Allergy Mild PANCREATITI Verified 07/25/21 20:20 S trazodone AdvReac Intermediate HEART Verified 07/25/21 20:20 PALPITATIONS Review of Systems Review of Systems Narrative: GENERAL: See HP HEENT: Denies sinus pain, ear pain, sore throat, difficulty swallowing, dizziness. RESPIRATORY: See HPI CARDIOVASCULAR: Denies chest pain, palpitations, orthopnea, edema, GASTROINTESTINAL: See HPI. : Denies dysuria, frequency, incontinence, hematuria, urinary retention. MUSCULOSKELETAL: denies weakness, joint pain, or bony pain SKIN: Denies rash, skin lesions, or other NEUROLOGIC: Denies weakness, headache, numbness, change in speech, confusion, seizures, incoordination. PSYCHIATRIC: No concerning psychosocial issues. 12 point review of systems is negative except for those stated above Patient History Medical History (Updated 07/25/21 @ 23:39 by Stephane Borden DO) Gastroesophageal reflux disease Insulin dependent diabetes mellitus Lupus Osteoporosis Surgical History No pertinent past surgical history Family History Mother Diabetes mellitus Congestive heart failure Pancreatic cancer Father Diabetes mellitus Brother Diabetes mellitus Pancreatitis Sister Drug overdose Social History household members: family Smoking Status: Current every day smoker alcohol intake: current Smoking Status: Current every day smoker alcohol intake frequency: holidays/special occasions only Substance Use Type: does not use Exam Narrative Exam Narrative: GENERAL: [45 year old patient appears stated age. Well-developed patient, in mild distress. Ill-appearing, increased work of breathing, conversational dyspnea HEAD: Atraumatic. Normocephalic. EYES: Pupils equal round and reactive. Extraocular motions intact. No scleral icterus. No injection or drainage. ENT: Nose without bleeding, purulent drainage. Throat without erythema, tonsillar hypertrophy or exudate. Airway patent. NECK: Trachea midline. Non tender CARDIOVASCULAR: Regular rate and rhythm without murmurs, gallops, or rubs. RESPIRATORY: Clear to auscultation. Breath sounds equal bilaterally. No wheezes, rales, or rhonchi. GASTROINTESTINAL: Abdomen soft, non-tender, nondistended. EXTREMITIES: No edema or joint tenderness. BACK: Nontender without deformity or crepitance. No flank tenderness. NEURO: AOx3. SKIN: No rash or erythema of visible areas Initial Vital Signs Initial Vital Signs: Vital Signs Pulse Rate 106 H 07/25/21 20:15 Procedures Central Line Placement Right IJ: Time Out Performed: Yes Patient Placed on Monitor/Pulse Ox: Yes Prep: mask and gloves Central Line Prep: Chlorhexidine scrub Local Anesthetic: lidocaine 1% Amount of anesthesia used (mL): 3 Ultrasound Used for Placement: Yes Central Line Lumen Inserted: triple Post Procedure: good blood return, all ports aspirated, flushed, capped (only brown will flush, remaining two capped with credentials specialist) and sterile dressing applied Complications: none Course Orders Ordered: ED Orders 07/25/21 20:10 COVID19 -Nasal swab/Pre-Proc Stat 07/25/21 20:21 XR chest 1V Stat EKG-12 Lead Stat 07/25/21 20:25 Venous Blood Gas Stat 07/25/21 20:26 Complete Blood Count AUTO DIFF Stat Comprehensive Metabolic Panel Stat Lipase Stat Magnesium Stat NT-proBNP (BNP-Adult 18+) Stat Prothrombin Time INR Stat Troponin & CK Cardiac Panel Stat 07/25/21 21:25 Blood Culture Stat 07/25/21 21:49 Consult to Tele-machine specialist Routine 07/25/21 22:28 Urinalysis and Microscopic Stat Urine Culture Stat 07/26/21 00:00 Basic Metabolic Panel Q4H Venous Blood Gas Q4H 07/26/21 03:00 Basic Metabolic Panel Q4H Venous Blood Gas Q4H 07/26/21 07:00 Basic Metabolic Panel Q4H Venous Blood Gas Q4H 07/26/21 11:00 Basic Metabolic Panel Q4H Venous Blood Gas Q4H Acetaminophen (Acetaminophen 325 Mg Tablet) 650 mg PO Q6HR PRN PRN Reason: Fever Dextrose (Dextrose 50 % In Water 25 Gm/50 Ml Syringe) 25 gm IV PRN PRN PRN Reason: Hypoglycemia Enoxaparin Sodium (Enoxaparin 40 Mg/0.4 Ml Syringe) 40 mg SUBCUT DAILY JOSE ANTONIO INSULIN DRIP PREMIX (Myxredlin Drip Premix) 100 unit in 100 mls @ 6 mls/hr IV TITRATE JOSE ANTONIO; Protocol Last Admin: 07/25/21 22:18 Dose: 6 ml/hr, 6 mls/hr Documented by: NAVARRO Cosigned by: MARQUEZ INSULIN DRIP PREMIX (Myxredlin Drip Premix) 100 unit in 100 mls @ 6 mls/hr IV TITRATE JOSE ANTONIO; Protocol Last Admin: 07/25/21 23:09 Dose: Not Given Documented by: NAVARRO Lactated Ringer's (Lactated Ringers) 1,000 mls @ 250 mls/hr IV CONT JOSE ANTONIO Ketorolac Tromethamine (Ketorolac 30 Mg/Ml Vial) 15 mg IV Q6H PRN PRN Reason: pain Stop: 07/30/21 22:57 Last Admin: 07/25/21 23:06 Dose: 15 mg Documented by: NAVARRO Naloxone HCl (Naloxone 0.4 Mg/Ml Vial) 0.2 mg IV Q2MIN PRN PRN Reason: Opiate Reversal Ondansetron HCl (Ondansetron 4 Mg/2 Ml Inj) 4 mg IV Q4HR PRN PRN Reason: Nausea And Vomiting Discontinued Medications Sodium Chloride (Normal Saline 0.9%) 1,000 mls @ 1,000 mls/hr IV BOLUS ONE Stop: 07/25/21 21:19 Last Admin: 07/25/21 21:07 Dose: Not Given Documented by: SHIVAM Lactated Ringer's (Lactated Ringers) 1,000 mls @ 1,000 mls/hr IV BOLUS ONE Stop: 07/25/21 21:47 Last Infusion: 07/25/21 23:09 Dose: 0 mls/hr Documented by: Admin: 07/25/21 21:06 Dose: 1,000 mls/hr Documented by: JOHANNMPBELL Lactated Ringer's (Lactated Ringers) 1,000 mls @ 1,000 mls/hr IV BOLUS ONE Stop: 07/25/21 23:38 Vital Signs Vital signs: Vital Signs - 8 hr 07/25/21 20:15 07/25/21 20:16 07/25/21 20:17 Temperature 97.2 F L Pulse Rate 106 H 105 H 104 H Respiratory Rate 28 H Blood Pressure 101/66 101/66 Pulse Oximetry 100 100 07/25/21 20:30 07/25/21 21:00 07/25/21 21:30 Temperature Pulse Rate 103 H 103 H 104 H Respiratory Rate Blood Pressure Pulse Oximetry 100 100 100 07/25/21 22:00 07/25/21 22:24 07/25/21 22:30 Temperature Pulse Rate 100 H 104 H 102 H Respiratory Rate 21 Blood Pressure 104/70 115/76 Pulse Oximetry 100 99 100 MDM - SOB/Dyspnea Lab Data Result diagrams: 07/25/21 20:26 07/25/21 20:26 Labs: Lab Results 07/25/21 07/25/21 07/25/21 Range/Units 20:10 20:25 20:26 WBC 23.6 H (4.5-11.0) X10^3/uL RBC 4.27 (4.0-5.2) X10^6/uL Hgb 12.8 (12.0-16.0) g/dL Hct 43.2 (36-46) % MCV 101.3 H (80-100) fL MCH 30.0 (26-34) PG MCHC 29.6 L (30-36) % RDW 21.6 H (11.6-14.8) % Plt Count 794 H (150-400) X10^3/uL Neut % (Auto) 92.6 H (50-75) % Lymph % (Auto) 2.2 L (25-40) % [place] % (Auto) 4.9 (3-14) % Eos % (Auto) 0.0 L (2-4) % Baso % (Auto) 0.3 (0-2) % Neut # (Auto) 68512 H (2466-7915) /uL Lymph # (Auto) 500 L (1372-2120) /uL [place] # (Auto) 1100 H (0-900) /uL Eos # (Auto) 0 (0-450) /uL Baso # (Auto) 100 (0-100) /uL Platelet Estimate Increased on smear RBC Morphology See below Anisocytosis 3+ H Macrocytosis 1+ H PT (10.1-12.7) SECONDS INR (0.9-1.3) VBG pH 7.09 L* (7.33-7.43) VBG pCO2 16.3 L (45-50) mmHg VBG pO2 25 L (35-45) mmHg VBG HCO3 5 L (23-28) mmol/L VBG Total CO2 5 L (24-29) mmol/L VBG O2 Saturation 30 L (70-75) % VBG Base Excess -25.0 L (0-4) mmol/L Sodium (137-145) mmol/L Potassium (3.4-5.1) mmol/L Chloride (98-107) mmol/L Carbon Dioxide (22-32) mmol/L BUN (7-17) mg/dL Creatinine (0.52-1.04) mg/dL Estimated GFR (>60) mL/min BUN/Creatinine Ratio (6-22) Glucose (70-100) mg/dL Calcium (8.4-10.2) mg/dL Magnesium (1.6-2.3) mg/dL Total Bilirubin (0.2-1.3) mg/dL AST (14-36) IU/L ALT (<35) IU/L Alkaline Phosphatase (38-126) U/L Total Creatine Kinase (30-135) U/L CK-MB (CK-2) CK-MB (CK-2) Rel Index Troponin I (0.01-0.034) ng/mL NT-Pro-B Natriuret Pep (<125) pg/mL Total Protein (6.3-8.2) g/dL Albumin (3.5-5.0) g/dL Globulin (1.7-4.1) g/dL Albumin/Globulin Ratio (1.0-2.8) Lipase (23-300) U/L Urine Color Urine Appearance Urine pH (4.5-8.0) Ur Specific [place] (1.000-1.035) Urine Protein (Negative) Urine Glucose (UA) (Negative) g/dL Urine Ketones (NEGATIVE) Urine Occult Blood (Negative) Urine Nitrate (Negative) Urine Bilirubin (NEGATIVE) Urine Urobilinogen (0.2) E.U./dL Ur Leukocyte Esterase (NEGATIVE) Urine RBC (0-5/HPF) Urine WBC (0-5/HPF) Ur Squamous Epith Cells (0-5/HPF) Urine Bacteria (None) Ur Culture Indicated? SARS-CoV-2 (PCR) Positive H (Negative) 07/25/21 07/25/21 07/25/21 Range/Units 20:26 20:26 22:28 WBC (4.5-11.0) X10^3/uL RBC (4.0-5.2) X10^6/uL Hgb (12.0-16.0) g/dL Hct (36-46) % MCV (80-100) fL MCH (26-34) PG MCHC (30-36) % RDW (11.6-14.8) % Plt Count (150-400) X10^3/uL Neut % (Auto) (50-75) % Lymph % (Auto) (25-40) % [place] % (Auto) (3-14) % Eos % (Auto) (2-4) % Baso % (Auto) (0-2) % Neut # (Auto) (2628-1647) /uL Lymph # (Auto) (4387-2663) /uL [place] # (Auto) (0-900) /uL Eos # (Auto) (0-450) /uL Baso # (Auto) (0-100) /uL Platelet Estimate RBC Morphology Anisocytosis Macrocytosis PT 12.3 (10.1-12.7) SECONDS INR 1.1 (0.9-1.3) VBG pH (7.33-7.43) VBG pCO2 (45-50) mmHg VBG pO2 (35-45) mmHg VBG HCO3 (23-28) mmol/L VBG Total CO2 (24-29) mmol/L VBG O2 Saturation (70-75) % VBG Base Excess (0-4) mmol/L Sodium 132 L (137-145) mmol/L Potassium 4.8 (3.4-5.1) mmol/L Chloride 101 (98-107) mmol/L Carbon Dioxide < 5 L* (22-32) mmol/L BUN 11 (7-17) mg/dL Creatinine 0.77 (0.52-1.04) mg/dL Estimated GFR > 60.0 (>60) mL/min BUN/Creatinine Ratio 14.3 (6-22) Glucose 721 H* (70-100) mg/dL Calcium 9.6 (8.4-10.2) mg/dL Magnesium 2.4 H (1.6-2.3) mg/dL Total Bilirubin 0.4 (0.2-1.3) mg/dL AST 37 H (14-36) IU/L ALT 24 (<35) IU/L Alkaline Phosphatase 224 H (38-126) U/L Total Creatine Kinase 42 (30-135) U/L CK-MB (CK-2) TNP CK-MB (CK-2) Rel Index TNP Troponin I < 0.012 (0.01-0.034) ng/mL NT-Pro-B Natriuret Pep 256 H (<125) pg/mL Total Protein 7.5 (6.3-8.2) g/dL Albumin 4.0 (3.5-5.0) g/dL Globulin 3.5 (1.7-4.1) g/dL Albumin/Globulin Ratio 1.1 (1.0-2.8) Lipase 10 L (23-300) U/L Urine Color Yellow Urine Appearance Clear Urine pH 6.5 (4.5-8.0) Ur Specific [place] 1.010 (1.000-1.035) Urine Protein 2+ H (Negative) Urine Glucose (UA) 2+ H (Negative) g/dL Urine Ketones 2+ H (NEGATIVE) Urine Occult Blood 3+ H (Negative) Urine Nitrate Negative (Negative) Urine Bilirubin Negative (NEGATIVE) Urine Urobilinogen 0.2 (0.2) E.U./dL Ur Leukocyte Esterase Negative (NEGATIVE) Urine RBC 1-5/hpf (0-5/HPF) Urine WBC 10-30/hpf H (0-5/HPF) Ur Squamous Epith Cells 1-5 /hpf (0-5/HPF) Urine Bacteria Few (2-10) H (None) Ur Culture Indicated? Specimen cultured SARS-CoV-2 (PCR) (Negative) Discharge Plan Departure Patient Disposition: Admitted As Inpatient Clinical Impression: COVID DKA (diabetic ketoacidosis) Qualifiers: Diabetes mellitus type: type 1 Admit Date/Time: 07/25/21 22:52 Admit Provider: David Royal
--- NOTE | 2021-07-25 20:21 | DI.RAD.S_ITS ---
PROCEDURE: XR CHEST 1V INDICATIONS: SOB TECHNIQUE: One view of the chest was acquired. COMPARISON: [facility], CHEST 1 VIEW, 01/30/2017, 16:30. [facility], CHEST 1 VIEW, 07/15/2017, 8:45. FINDINGS: Surgical changes and devices: None. Lungs and pleura: Lungs are clear. No pleural effusions or pneumothorax. Mediastinum: Mediastinal contours appear normal. Heart size is normal. Bones and chest wall: There are 2 new round, circumscribed sclerotic foci identified. These are the same size and shape. 1 projects over the right acromion and the 2nd projects over the right humeral head. These are likely artifact and outside the patient's body. Overlying soft tissues appear unremarkable. IMPRESSION: No acute cardiopulmonary abnormalities or focal airspace disease. There are 2 new identical 7 mm round sclerotic foci with 1 projecting over the left humeral head and the 2nd over the right acromion. These are likely artifactual and outside the patient's body. Recommend correlation with examination and confirmation that external clothing was present during image acquisition. Recommend repeat imaging to document resolution. Dictated by: Dc Vernon M.D. on 07/25/2021 at 21:01 Approved by: Dc Vernon M.D. on 07/25/2021 at 21:05
[2021-07-25 20:31] LABS: COVID19 -Nasal RAPID POSITIVE (Negative)
[2021-07-25 20:40] LABS: Add Manual Diff / Slide Review NO; Basophils Absolute Auto 100 /uL (0-100); Basophils Percent Auto 0.3 % (0-2); Eosinophils Absolute Auto 0 /uL (0-450); Hematocrit 43.2 % (36-46); Hemoglobin 12.8 g/dL (12.0-16.0); Lymphocytes Absolute Auto 500 /uL (1100-4500); Lymphocytes Percent Auto 2.2 % (25-40); Mean Corpuscular HGB Conc 29.6 % (30-36); Mean Corpuscular Volume 101.3 fL (80-100); Monocytes Absolute Auto 1100 /uL (0-900); Monocytes Percent Auto 4.9 % (3-14); Neutrophils Absolute Auto 21800 /uL (1500-7000); Neutrophils Percent Auto 92.6 % (50-75); Platelet Count 794 X10^3/uL (150-400); Red Blood Cell Count 4.27 X10^6/uL (4.0-5.2); Red Cell Distribution Width 21.6 % (11.6-14.8); White Blood Cell Count 23.6 X10^3/uL (4.5-11.0)
[2021-07-25 20:53] LABS: INR 1.1 (0.9-1.3); Prothrombin Time 12.3 SECONDS (10.1-12.7)
[2021-07-25 20:55] LABS: HCO3 VBG 5 mmol/L (23-28); Oxygen Saturation VBG 30 % (70-75); PCO2 VBG 16.3 mmHg (45-50); PO2 VBG 25 mmHg (35-45); Total CO2 VBG 5 mmol/L (24-29); pH VBG 7.09 (7.33-7.43)
[2021-07-25 20:58] LABS: Creatine Kinase 42 U/L (30-135)
[2021-07-25] MEDS: LACTATED RINGERS 1,000 ML 1000 ML IV ×2 (21:06→22:30)
[2021-07-25 21:10] LABS: NT-proBNP (BNP-Adult 18+) 256 pg/mL (<125); Troponin I < 0.012 ng/mL (0.01-0.034)
[2021-07-25 21:13] LABS: Lipase 10 U/L (23-300)
[2021-07-25 21:15] LABS: Glucose 721 mg/dL (70-100)
[2021-07-25 21:16] LABS: Carbon Dioxide < 5 mmol/L (22-32)
[2021-07-25 21:17] LABS: Alanine Aminotransferase 24 IU/L (<35); Albumin Globulin Ratio 1.1 (1.0-2.8); Alkaline Phosphatase 224 U/L (38-126); Aspartate Aminotransferase 37 IU/L (14-36); BUN Creatinine Ratio 14.3 (6-22); Bilirubin Total 0.4 mg/dL (0.2-1.3); Blood Urea Nitrogen 11 mg/dL (7-17); Calcium 9.6 mg/dL (8.4-10.2); Chloride 101 mmol/L (98-107); Estimated Glomerular Filt Rate > 60.0 mL/min (>60); Globulin 3.5 g/dL (1.7-4.1); Potassium 4.8 mmol/L (3.4-5.1); Sodium 132 mmol/L (137-145); Total Protein 7.5 g/dL (6.3-8.2)
[2021-07-25 21:27] LABS: Magnesium 2.4 mg/dL (1.6-2.3)
--- NOTE | 2021-07-25 22:00 | P.HP_ITS ---
History of Present Illness History of Present Illness Date Patient Seen: 07/25/21 Time Patient Seen: 22:00 Chief complaint: SOB/NOT ABLE TO WALK FAR Narrative: Ms. Garnica is a 46W with PMH Type 1 DM, lupus, chronic pain who presents with shortness of breath, lack of appetite, dysuria. She notes her symptoms have been happening for 2-3 days, prior to this she was ddiagnosed with a UTI and has complete antibiotics for this. She continues to have dysuria. She also developed nausea, vomiting, fatigue, shortness of breath, cough that was minimally productive. She usually takes 40U lantus daily, along with sliding scale insulin. She has not taken this for the last few days, and has not checked her blood sugar either. In the ED workup was done, vitals notable for patient being afebrile, tachycardic in the 100s, RR in the 20s, blood pressure in the 100s systolic, sat 100% RA. WBC 23.6, hgb 12.8, plts 794, na 132, k 4.8, co2 <5, creatinine 0.77, glucose 721. VBG with pH 7.09, pCO2 16, HCO3 5. COVID positive. Urine with 10-30 WBC, 2-10 bacteria. Chest xray showed no acute process but showed likely artifact. She was ordered for IV fluid boluses, started on insulin gtt and admitted for further treatment. Patient History Medical History Gastroesophageal reflux disease Insulin dependent diabetes mellitus Lupus Osteoporosis Surgical History No pertinent past surgical history Family & Social History Family History Mother Diabetes mellitus Congestive heart failure Pancreatic cancer Father Diabetes mellitus Brother Diabetes mellitus Pancreatitis Sister Drug overdose Social History: household members family Safety & Behavioral: Feels Safe in Current Yes Environment Been Physically Hurt or No Threatened By a Person Tobacco & Substance use: Tobacco type cigarettes Smoking Status Current every day smoker alcohol intake current alcohol intake frequency holiday/special occasion Substance Use Type does not use Meds Home Medications and Allergies Home Medications Medication Instructions Recorded Confirmed Type omeprazole 20 mg capsule,delayed 20 mg PO QDAY #0 10/09/12 12/07/18 History release ondansetron 4 mg disintegrating 4 mg SUBLINGUAL Q4HP PRN 02/08/18 12/07/18 History tablet (Zofran ODT) insulin aspart U-100 100 unit/mL 0 unit SUB-Q AC #3 unit 02/12/18 12/07/18 Rx (3 mL) subcutaneous pen (Novolog Flexpen U-100 Insulin aspart) buspirone 10 mg tablet 2 tab PO TID 12/08/18 12/08/18 History cyclobenzaprine 10 mg tablet 10 mg PO TID PRN 12/08/18 12/08/18 History duloxetine 60 mg capsule,delayed 60 mg PO DAILY 12/08/18 12/08/18 History release gabapentin 600 mg tablet 1.5 tab PO QID 12/08/18 12/08/18 History loperamide 2 mg PO BID 12/08/18 12/08/18 History acetaminophen 325 mg tablet 975 mg PO TID PRN #30 tab 12/12/18 Rx docusate sodium 100 mg capsule 100 mg PO BID #60 cap 12/12/18 Rx oxycodone 10 mg tablet 10 mg PO Q3HR PRN #30 tab 12/12/18 Rx oxycodone 5 mg tablet 5 mg PO Q3HR PRN #30 tab 12/12/18 Rx polyethylene glycol 3350 17 gram 17 gm PO DAILY #1 pkg 12/12/18 Rx oral powder packet ibuprofen 600 mg tablet 600 mg PO Q6H PRN #30 tab 03/21/20 Rx Allergies Allergy/AdvReac Type Severity Reaction Status Date / Time amitriptyline Allergy Intermediate Verified 07/25/21 20:20 sulfasalazine [SULFASALAZINE] Allergy Mild PANCREATITI Verified 07/25/21 20:20 S trazodone AdvReac Intermediate HEART Verified 07/25/21 20:20 PALPITATIONS Review of Systems Review of Systems Narrative: 14 systems reviewed and negative aside from what is noted in HPI Exam Vital Signs (past 8 hours): - 07/25/21 20:15 07/25/21 20:16 07/25/21 20:17 Temperature 97.2 F L Pulse Rate 106 H 105 H 104 H Respiratory Rate 28 H Blood Pressure 101/66 101/66 Pulse Oximetry 100 100 07/25/21 20:30 07/25/21 21:00 07/25/21 21:30 Temperature Pulse Rate 103 H 103 H 104 H Respiratory Rate Blood Pressure Pulse Oximetry 100 100 100 07/25/21 22:00 07/25/21 22:24 07/25/21 22:30 Temperature Pulse Rate 100 H 104 H 102 H Respiratory Rate 21 Blood Pressure 104/70 115/76 Pulse Oximetry 100 99 100 07/25/21 23:00 07/25/21 23:30 Temperature Pulse Rate 103 H 102 H Respiratory Rate 20 21 Blood Pressure 127/82 142/86 H Pulse Oximetry 100 100 Oxygen Delivery Method Room Air Narrative Exam Narrative: GEN: moderate distress HEENT: dry mucous membranes, PERRL NECK: trachea midline, no JVD CV: tachycardic, no murmurs PULM: clear bilaterally, poor air movement, tachypneic ABD: soft, nontender, nondistended, no organomegaly, normal bowel sounds EXT: warm and well perfused with no edema NEURO: moving all extremities, no focal deficits Objective Labs Result Diagrams: 07/25/21 20:26 07/25/21 20:26 Labs: Laboratory Results - last 24 hr 07/25/21 07/25/21 07/25/21 20:10 20:25 20:26 WBC 23.6 H RBC 4.27 Hgb 12.8 Hct 43.2 MCV 101.3 H MCH 30.0 MCHC 29.6 L RDW 21.6 H Plt Count 794 H Neut % (Auto) 92.6 H Lymph % (Auto) 2.2 L [place] % (Auto) 4.9 Eos % (Auto) 0.0 L Baso % (Auto) 0.3 Neut # (Auto) 16412 H Lymph # (Auto) 500 L [place] # (Auto) 1100 H Eos # (Auto) 0 Baso # (Auto) 100 Platelet Estimate Increased on smear RBC Morphology See below Anisocytosis 3+ H Macrocytosis 1+ H PT INR VBG pH 7.09 L* VBG pCO2 16.3 L VBG pO2 25 L VBG HCO3 5 L VBG Total CO2 5 L VBG O2 Saturation 30 L VBG Base Excess -25.0 L Sodium Potassium Chloride Carbon Dioxide BUN Creatinine Estimated GFR BUN/Creatinine Ratio Glucose Calcium Magnesium Total Bilirubin AST ALT Alkaline Phosphatase Total Creatine Kinase CK-MB (CK-2) CK-MB (CK-2) Rel Index Troponin I NT-Pro-B Natriuret Pep Total Protein Albumin Globulin Albumin/Globulin Ratio Lipase Urine Color Urine Appearance Urine pH Ur Specific [place] Urine Protein Urine Glucose (UA) Urine Ketones Urine Occult Blood Urine Nitrate Urine Bilirubin Urine Urobilinogen Ur Leukocyte Esterase Urine RBC Urine WBC Ur Squamous Epith Cells Urine Bacteria Ur Culture Indicated? SARS-CoV-2 (PCR) Positive H 07/25/21 07/25/21 07/25/21 20:26 20:26 22:28 WBC RBC Hgb Hct MCV MCH MCHC RDW Plt Count Neut % (Auto) Lymph % (Auto) [place] % (Auto) Eos % (Auto) Baso % (Auto) Neut # (Auto) Lymph # (Auto) [place] # (Auto) Eos # (Auto) Baso # (Auto) Platelet Estimate RBC Morphology Anisocytosis Macrocytosis PT 12.3 INR 1.1 VBG pH VBG pCO2 VBG pO2 VBG HCO3 VBG Total CO2 VBG O2 Saturation VBG Base Excess Sodium 132 L Potassium 4.8 Chloride 101 Carbon Dioxide < 5 L* BUN 11 Creatinine 0.77 Estimated GFR > 60.0 BUN/Creatinine Ratio 14.3 Glucose 721 H* Calcium 9.6 Magnesium 2.4 H Total Bilirubin 0.4 AST 37 H ALT 24 Alkaline Phosphatase 224 H Total Creatine Kinase 42 CK-MB (CK-2) TNP CK-MB (CK-2) Rel Index TNP Troponin I < 0.012 NT-Pro-B Natriuret Pep 256 H Total Protein 7.5 Albumin 4.0 Globulin 3.5 Albumin/Globulin Ratio 1.1 Lipase 10 L Urine Color Yellow Urine Appearance Clear Urine pH 6.5 Ur Specific [place] 1.010 Urine Protein 2+ H Urine Glucose (UA) 2+ H Urine Ketones 2+ H Urine Occult Blood 3+ H Urine Nitrate Negative Urine Bilirubin Negative Urine Urobilinogen 0.2 Ur Leukocyte Esterase Negative Urine RBC 1-5/hpf Urine WBC 10-30/hpf H Ur Squamous Epith Cells 1-5 /hpf Urine Bacteria Few (2-10) H Ur Culture Indicated? Specimen cultured SARS-CoV-2 (PCR) Assessment & Plan Assessment & Plan narrative: Ms. Garnica is a 46W with PMH Type 1 DM with presents with COVID+ and DKA. 1. DKA, acute -likely precipitated by COVID infection -UA also positive, ordered ceftriaxone, culture pending -ordered a1c, patient has history of poor control -ordered for IVF boluses -started on insulin gtt, and ordered DKA protocol -check bmp and vbg q4 -PICC ordered for access, has a CVL with one functioning port -NPO for now 2. COVID positive -currently not requiring oxygen, she is short of breath, but likely secondary to acidosis -no indication to start remdesivir, or dexamethasone currently but will recommend starting if becomes hypoxemic 3. Chronic pain -continue long active morphine 4. Anxiety and depression -continue home medications 5. UTI -UA positive -ordered ceftriaxone -follow up culture CODE: Full Proxy: Jhonny Johnson, family I have utilized all available immediate resources to obtain, update, or review the patient's current medications. Time Spent With Patient Critical Care time: I spent a total of [] minutes of critical care time on this patient's care today; this time is exclusive of procedural time. Quality MIPS - Admit I confirm the patient?s Advance Care Plan is present, Code status is documented, Surrogate decision maker is in patient?s record [If Yes, STOP here]: Yes
[2021-07-25 22:03] LABS: Anisocytosis 3+; Macrocytosis 1+; Platelet Estimate Increased on smear
[2021-07-25] MEDS: INSULIN DRIP PREMIX 100 UNIT/100 ML PLAST..BAG 6 UNIT IV (22:18)
[2021-07-25 22:37] LABS: Appearance Urine UA CLEAR; Bilirubin Urine UA NEGATIVE (NEGATIVE); Color Urine UA YELLOW; Glucose Urine UA 2+ g/dL (Negative); Ketones Urine UA 2+ (NEGATIVE); Nitrite Urine UA NEGATIVE (Negative); Occult Blood Urine UA 3+ (Negative); Protein Urine UA 2+ (Negative); Urobilinogen Urine UA 0.2 E.U./dL (0.2)
[2021-07-25 22:38] LABS: pH Urine UA 6.5 (4.5-8.0)
[2021-07-25] MEDS: LACTATED RINGERS 1,000 ML 250 ML IV (22:50)
[2021-07-25 22:58] LABS: Leukocyte Esterase Urine UA NEGATIVE (NEGATIVE); Squamous Epithelial Cell Urine 1-5 /HPF (0-5/HPF); WBC Urine 10-30/HPF (0-5/HPF)
[2021-07-25 22:59] LABS: Bacteria Urine Few (2-10); Culture Indicated Urine Specimen Cultured; RBC Urine 1-5/HPF (0-5/HPF)
[2021-07-25] MEDS: KETOROLAC 30 MG/ML VIAL 15 MG IV (23:06)
--- NOTE | 2021-07-25 23:49 | PC.NURSE ---
PICC RN at bedside.
[2021-07-26] VITALS (40 sets, daily range): BP systolic 71–133; BP diastolic 50–85; PULSE 95–107; RESP 15–30; TEMP 36.3–37.8; O2SAT 96–100; BMI 22.3
[2021-07-26] MEDS: cefTRIAXone 1,000 MG in SODIUM CHLORIDE 0.9% 100 ML 200 ML IV ×2 (00:37→23:30)
[2021-07-26 00:44] LABS: HCO3 VBG 7 mmol/L (23-28); Oxygen Saturation VBG 56 % (70-75); PO2 VBG 35 mmHg (35-45); Total CO2 VBG 7 mmol/L (24-29); pH VBG 7.19 (7.33-7.43)
[2021-07-26 00:45] LABS: PCO2 VBG 17.4 mmHg (45-50)
[2021-07-26 00:58] LABS: BUN Creatinine Ratio 14.5 (6-22); Blood Urea Nitrogen 8 mg/dL (7-17); Calcium 8.5 mg/dL (8.4-10.2); Chloride 111 mmol/L (98-107); Estimated Glomerular Filt Rate > 60.0 mL/min (>60); Glucose 167 mg/dL (70-100); HEMOLYSIS 22 (0-50); Potassium 3.2 mmol/L (3.4-5.1); Sodium 137 mmol/L (137-145)
[2021-07-26 01:00] LABS: Carbon Dioxide 7 mmol/L (22-32)
[2021-07-26] MEDS: SODIUM CHLORIDE 0.9% 1,000 ML 1000 ML IV (01:00)
[2021-07-26] MEDS: DEXTROSE 5%-0.45% NS 1,000 ML 88 ML IV (01:05)
--- NOTE | 2021-07-26 01:06 | PC.NURSE ---
Assisting patient up to bedside commode, patient legs gave out i am feeling dizzy patient assisted to the floor, remained alert, denied chest pain or increase SOB. Patient assisted to commode, blood pressure 71/50. Hospitalist notified, verbal order for 1000ml NS bolus.
[2021-07-26] MEDS: DEXTROSE 50 % IN WATER 25 GM/50 ML SYRINGE IV ×2 (01:20→21:43)
[2021-07-26] MEDS: POTASSIUM CHLORIDE IN WATER 10 MEQ/100 ML PIGGYBACK 100 MEQ IV ×3 (01:20→02:23)
[2021-07-26] MEDS: DEXTROSE 10 % IN WATER 1,000 ML 117.8 ML IV (01:40)
--- NOTE | 2021-07-26 02:47 | PC.NURSE ---
Discussed DKA protocol with Dr Royal, patient blood sugar 272. Resume Insulin drip at 2units/hr, restart D5 1/2 NS at 100ml/hr. Continue potassium replacement.
[2021-07-26] MEDS: DEXTROSE 5%-0.45NS W/KCL 40MEQ 1,000 ML 100 MEQ IV (03:00)
[2021-07-26] MEDS: ACETAMINOPHEN 325 MG TABLET 650 MG PO ×2 (03:01→09:45)
[2021-07-26] MEDS: ONDANSETRON 4 MG/2 ML INJ IV (03:01)
[2021-07-26 03:36] LABS: BUN Creatinine Ratio 14.9 (6-22); Blood Urea Nitrogen 7 mg/dL (7-17); Calcium 7.8 mg/dL (8.4-10.2); Chloride 113 mmol/L (98-107); Estimated Glomerular Filt Rate > 60.0 mL/min (>60); Glucose 231 mg/dL (70-100); HEMOLYSIS < 15 (0-50); Potassium 3.9 mmol/L (3.4-5.1); Sodium 134 mmol/L (137-145)
[2021-07-26 03:38] LABS: Carbon Dioxide 8 mmol/L (22-32)
[2021-07-26 03:44] LABS: pH VBG 7.23 (7.33-7.43)
[2021-07-26 03:45] LABS: HCO3 VBG 10 mmol/L (23-28); Oxygen Saturation VBG 74 % (70-75); PCO2 VBG 23.2 mmHg (45-50); PO2 VBG 45 mmHg (35-45); Total CO2 VBG 11 mmol/L (24-29)
[2021-07-26] MEDS: KETOROLAC 30 MG/ML VIAL 15 MG IV ×3 (07:07→20:55)
[2021-07-26 07:18] LABS: PCO2 VBG 21.8 mmHg (45-50); pH VBG 7.27 (7.33-7.43)
[2021-07-26 07:19] LABS: HCO3 VBG 10 mmol/L (23-28); Oxygen Saturation VBG 65 % (70-75); PO2 VBG 37 mmHg (35-45); Total CO2 VBG 11 mmol/L (24-29)
--- NOTE | 2021-07-26 07:51 | PC.NURSE ---
spoke with Dr. Vallejo. bg 111. hold insulin gtt until blood sugar greater than 150.
[2021-07-26] MEDS: ENOXAPARIN 40 MG/0.4 ML SYRINGE SUBCUT (09:41)
[2021-07-26 10:22] LABS: BUN Creatinine Ratio 11.3 (6-22); Blood Urea Nitrogen 6 mg/dL (7-17); Calcium 8.3 mg/dL (8.4-10.2); Chloride 114 mmol/L (98-107); Estimated Glomerular Filt Rate > 60.0 mL/min (>60); Glucose 170 mg/dL (70-100); HEMOLYSIS < 15 (0-50); Phosphorous 1.7 mg/dL (2.5-4.5); Potassium 4.8 mmol/L (3.4-5.1); Sodium 135 mmol/L (137-145)
--- NOTE | 2021-07-26 10:26 | PC.NURSE ---
Discussed hypotension and labs with provider; orders received --Dr. Mohamud will enter the orders upstairs.
[2021-07-26 10:27] LABS: Carbon Dioxide 7 mmol/L (22-32)
[2021-07-26] MEDS: DEXTROSE 5%-0.45NS W/KCL 20MEQ 1,000 ML 200 MEQ IV (11:12)
[2021-07-26] MEDS: SODIUM CHLORIDE 0.9% 500 ML 1000 ML IV (11:19)
[2021-07-26 14:35] LABS: BUN Creatinine Ratio 10.6 (6-22); Blood Urea Nitrogen 5 mg/dL (7-17); Calcium 7.4 mg/dL (8.4-10.2); Carbon Dioxide 10 mmol/L (22-32); Chloride 114 mmol/L (98-107); Estimated Glomerular Filt Rate > 60.0 mL/min (>60); Glucose 234 mg/dL (70-100); HEMOLYSIS < 15 (0-50); Potassium 4.3 mmol/L (3.4-5.1); Sodium 134 mmol/L (137-145)
[2021-07-26] MEDS: INSULIN GLARGINE 100 UNIT/ML 3ML PEN 20 UNIT SUBCUT (15:31)
[2021-07-26 16:00] LABS: Lactate (Lactic Acid) 0.5 mmol/L (0.7-2.1)
[2021-07-26 16:03] LABS: Ketones (Beta-Hydroxybutyrate) 0.84 mmol/L (<0.27)
--- NOTE | 2021-07-26 16:31 | PC.NURSE ---
received pt to room 226 from ED- admission completed and pt acute care status- bmp drawn from picc line and anion gap is closed at 10- orders received to feed pt and initiate insulin coverage ssc and lantus - drowsy but oriented and in nsr- pt is covid + and breathing normally with so2 97% on room air- oriented to room and call light.
--- NOTE | 2021-07-26 18:29 | P.PN_ITS ---
Subjective Subjective Date Patient Seen: 07/26/21 Interval history: 46W with PMH Type 1 DM, lupus, chronic pain admitted with DKA, UTI and positive COVID status. Patient has resolution of anion gap and feeling somewhat better. Insulin drip discontinued and started on diet and half dose of her long-acting insulin. On follow-up blood draw her ketones are still mildly elevated and CO2 is 10 therefore put her back on insulin drip 2 units/hour but will continue D5 half- normal, diet and subcu insulin. Noted blood pressures mildly hypotensive though patient tends to run low. She did get additional NS bolus this morning. Continue to monitor. Exam Vital Signs (past 8 hours): - 07/26/21 10:30 07/26/21 10:40 07/26/21 10:42 Temperature Pulse Rate 102 H 103 H 103 H Respiratory Rate 19 18 21 Blood Pressure 100/58 L 100/58 L Pulse Oximetry 99 99 07/26/21 11:00 07/26/21 11:30 07/26/21 12:00 Temperature Pulse Rate 102 H 101 H 102 H Respiratory Rate 20 18 21 Blood Pressure 97/58 L 92/59 L 93/55 L Pulse Oximetry 99 99 99 07/26/21 13:00 07/26/21 14:00 07/26/21 15:06 Temperature 97.4 F L Pulse Rate 101 H 101 H 105 H Respiratory Rate 20 15 30 H Blood Pressure 92/55 L Pulse Oximetry 99 98 98 07/26/21 17:42 Temperature 98.4 F Pulse Rate 103 H Respiratory Rate 28 H Blood Pressure 89/53 L Pulse Oximetry 99 Oxygen Delivery Method Room Air Oxygen Flow Rate 0 Narrative Exam Narrative: General: Alert, appears weak but not in acute distress Lungs: Breathing nonlabored Objective Labs Result Diagrams: 07/25/21 20:26 07/26/21 14:20 Labs: Laboratory Results - last 24 hr 07/25/21 07/25/21 07/25/21 20:10 20:25 20:26 WBC 23.6 H RBC 4.27 Hgb 12.8 Hct 43.2 MCV 101.3 H MCH 30.0 MCHC 29.6 L RDW 21.6 H Plt Count 794 H Neut % (Auto) 92.6 H Lymph % (Auto) 2.2 L [place] % (Auto) 4.9 Eos % (Auto) 0.0 L Baso % (Auto) 0.3 Neut # (Auto) 90540 H Lymph # (Auto) 500 L [place] # (Auto) 1100 H Eos # (Auto) 0 Baso # (Auto) 100 Platelet Estimate Increased on smear RBC Morphology See below Anisocytosis 3+ H Macrocytosis 1+ H PT INR VBG pH 7.09 L* VBG pCO2 16.3 L VBG pO2 25 L VBG HCO3 5 L VBG Total CO2 5 L VBG O2 Saturation 30 L VBG Base Excess -25.0 L Sodium Potassium Chloride Carbon Dioxide BUN Creatinine Estimated GFR BUN/Creatinine Ratio Glucose Hemoglobin A1c Lactate Calcium Phosphorus Magnesium Total Bilirubin AST ALT Alkaline Phosphatase Total Creatine Kinase CK-MB (CK-2) CK-MB (CK-2) Rel Index Troponin I NT-Pro-B Natriuret Pep Total Protein Albumin Globulin Albumin/Globulin Ratio Lipase Urine Color Urine Appearance Urine pH Ur Specific [place] Urine Protein Urine Glucose (UA) Urine Ketones Urine Occult Blood Urine Nitrate Urine Bilirubin Urine Urobilinogen Ur Leukocyte Esterase Urine RBC Urine WBC Ur Squamous Epith Cells Urine Bacteria Ur Culture Indicated? Nasal Screen MRSA (PCR) Ketones SARS-CoV-2 (PCR) Positive H 07/25/21 07/25/21 07/25/21 20:26 20:26 20:26 WBC RBC Hgb Hct MCV MCH MCHC RDW Plt Count Neut % (Auto) Lymph % (Auto) [place] % (Auto) Eos % (Auto) Baso % (Auto) Neut # (Auto) Lymph # (Auto) [place] # (Auto) Eos # (Auto) Baso # (Auto) Platelet Estimate RBC Morphology Anisocytosis Macrocytosis PT 12.3 INR 1.1 VBG pH VBG pCO2 VBG pO2 VBG HCO3 VBG Total CO2 VBG O2 Saturation VBG Base Excess Sodium 132 L Potassium 4.8 Chloride 101 Carbon Dioxide < 5 L* BUN 11 Creatinine 0.77 Estimated GFR > 60.0 BUN/Creatinine Ratio 14.3 Glucose 721 H* Hemoglobin A1c 11.0 H Lactate Calcium 9.6 Phosphorus Magnesium 2.4 H Total Bilirubin 0.4 AST 37 H ALT 24 Alkaline Phosphatase 224 H Total Creatine Kinase 42 CK-MB (CK-2) TNP CK-MB (CK-2) Rel Index TNP Troponin I < 0.012 NT-Pro-B Natriuret Pep 256 H Total Protein 7.5 Albumin 4.0 Globulin 3.5 Albumin/Globulin Ratio 1.1 Lipase 10 L Urine Color Urine Appearance Urine pH Ur Specific [place] Urine Protein Urine Glucose (UA) Urine Ketones Urine Occult Blood Urine Nitrate Urine Bilirubin Urine Urobilinogen Ur Leukocyte Esterase Urine RBC Urine WBC Ur Squamous Epith Cells Urine Bacteria Ur Culture Indicated? Nasal Screen MRSA (PCR) Ketones SARS-CoV-2 (PCR) 07/25/21 07/26/21 07/26/21 22:28 00:35 00:43 WBC RBC Hgb Hct MCV MCH MCHC RDW Plt Count Neut % (Auto) Lymph % (Auto) [place] % (Auto) Eos % (Auto) Baso % (Auto) Neut # (Auto) Lymph # (Auto) [place] # (Auto) Eos # (Auto) Baso # (Auto) Platelet Estimate RBC Morphology Anisocytosis Macrocytosis PT INR VBG pH 7.19 L* VBG pCO2 17.4 L VBG pO2 35 VBG HCO3 7 L VBG Total CO2 7 L VBG O2 Saturation 56 L VBG Base Excess -22.0 L Sodium 137 Potassium 3.2 L D Chloride 111 H Carbon Dioxide 7 L* BUN 8 Creatinine 0.55 Estimated GFR > 60.0 BUN/Creatinine Ratio 14.5 Glucose 167 H D Hemoglobin A1c Lactate Calcium 8.5 Phosphorus Magnesium Total Bilirubin AST ALT Alkaline Phosphatase Total Creatine Kinase CK-MB (CK-2) CK-MB (CK-2) Rel Index Troponin I NT-Pro-B Natriuret Pep Total Protein Albumin Globulin Albumin/Globulin Ratio Lipase Urine Color Yellow Urine Appearance Clear Urine pH 6.5 Ur Specific [place] 1.010 Urine Protein 2+ H Urine Glucose (UA) 2+ H Urine Ketones 2+ H Urine Occult Blood 3+ H Urine Nitrate Negative Urine Bilirubin Negative Urine Urobilinogen 0.2 Ur Leukocyte Esterase Negative Urine RBC 1-5/hpf Urine WBC 10-30/hpf H Ur Squamous Epith Cells 1-5 /hpf Urine Bacteria Few (2-10) H Ur Culture Indicated? Specimen cultured Nasal Screen MRSA (PCR) Ketones SARS-CoV-2 (PCR) 07/26/21 07/26/21 07/26/21 02:00 03:10 07:06 WBC RBC Hgb Hct MCV MCH MCHC RDW Plt Count Neut % (Auto) Lymph % (Auto) [place] % (Auto) Eos % (Auto) Baso % (Auto) Neut # (Auto) Lymph # (Auto) [place] # (Auto) Eos # (Auto) Baso # (Auto) Platelet Estimate RBC Morphology Anisocytosis Macrocytosis PT INR VBG pH 7.23 L 7.27 L VBG pCO2 23.2 L 21.8 L VBG pO2 45 37 VBG HCO3 10 L 10 L VBG Total CO2 11 L 11 L VBG O2 Saturation 74 65 L VBG Base Excess -18.0 L -17.0 L Sodium 134 L Potassium 3.9 Chloride 113 H Carbon Dioxide 8 L* BUN 7 Creatinine 0.47 L Estimated GFR > 60.0 BUN/Creatinine Ratio 14.9 Glucose 231 H Hemoglobin A1c Lactate Calcium 7.8 L Phosphorus Magnesium Total Bilirubin AST ALT Alkaline Phosphatase Total Creatine Kinase CK-MB (CK-2) CK-MB (CK-2) Rel Index Troponin I NT-Pro-B Natriuret Pep Total Protein Albumin Globulin Albumin/Globulin Ratio Lipase Urine Color Urine Appearance Urine pH Ur Specific [place] Urine Protein Urine Glucose (UA) Urine Ketones Urine Occult Blood Urine Nitrate Urine Bilirubin Urine Urobilinogen Ur Leukocyte Esterase Urine RBC Urine WBC Ur Squamous Epith Cells Urine Bacteria Ur Culture Indicated? Nasal Screen MRSA (PCR) Ketones SARS-CoV-2 (PCR) 07/26/21 07/26/21 07/26/21 09:20 09:20 14:20 WBC RBC Hgb Hct MCV MCH MCHC RDW Plt Count Neut % (Auto) Lymph % (Auto) [place] % (Auto) Eos % (Auto) Baso % (Auto) Neut # (Auto) Lymph # (Auto) [place] # (Auto) Eos # (Auto) Baso # (Auto) Platelet Estimate RBC Morphology Anisocytosis Macrocytosis PT INR VBG pH VBG pCO2 VBG pO2 VBG HCO3 VBG Total CO2 VBG O2 Saturation VBG Base Excess Sodium 135 L 134 L Potassium 4.8 4.3 Chloride 114 H 114 H Carbon Dioxide 7 L* 10 L BUN 6 L 5 L Creatinine 0.53 0.47 L Estimated GFR > 60.0 > 60.0 BUN/Creatinine Ratio 11.3 10.6 Glucose 170 H 234 H Hemoglobin A1c Lactate Calcium 8.3 L 7.4 L Phosphorus 1.7 L Magnesium Total Bilirubin AST ALT Alkaline Phosphatase Total Creatine Kinase CK-MB (CK-2) CK-MB (CK-2) Rel Index Troponin I NT-Pro-B Natriuret Pep Total Protein Albumin Globulin Albumin/Globulin Ratio Lipase Urine Color Urine Appearance Urine pH Ur Specific [place] Urine Protein Urine Glucose (UA) Urine Ketones Urine Occult Blood Urine Nitrate Urine Bilirubin Urine Urobilinogen Ur Leukocyte Esterase Urine RBC Urine WBC Ur Squamous Epith Cells Urine Bacteria Ur Culture Indicated? Nasal Screen MRSA (PCR) Ketones SARS-CoV-2 (PCR) 07/26/21 07/26/21 07/26/21 14:21 15:40 15:40 WBC RBC Hgb Hct MCV MCH MCHC RDW Plt Count Neut % (Auto) Lymph % (Auto) [place] % (Auto) Eos % (Auto) Baso % (Auto) Neut # (Auto) Lymph # (Auto) [place] # (Auto) Eos # (Auto) Baso # (Auto) Platelet Estimate RBC Morphology Anisocytosis Macrocytosis PT INR VBG pH VBG pCO2 VBG pO2 VBG HCO3 VBG Total CO2 VBG O2 Saturation VBG Base Excess Sodium Potassium Chloride Carbon Dioxide BUN Creatinine Estimated GFR BUN/Creatinine Ratio Glucose Hemoglobin A1c Lactate 0.5 L Calcium Phosphorus Magnesium Total Bilirubin AST ALT Alkaline Phosphatase Total Creatine Kinase CK-MB (CK-2) CK-MB (CK-2) Rel Index Troponin I NT-Pro-B Natriuret Pep Total Protein Albumin Globulin Albumin/Globulin Ratio Lipase Urine Color Urine Appearance Urine pH Ur Specific [place] Urine Protein Urine Glucose (UA) Urine Ketones Urine Occult Blood Urine Nitrate Urine Bilirubin Urine Urobilinogen Ur Leukocyte Esterase Urine RBC Urine WBC Ur Squamous Epith Cells Urine Bacteria Ur Culture Indicated? Nasal Screen MRSA (PCR) Negative for mrsa Ketones 0.84 H SARS-CoV-2 (PCR) PFSH Medical History Gastroesophageal reflux disease Insulin dependent diabetes mellitus Lupus Osteoporosis Surgical History No pertinent past surgical history Family History Mother Diabetes mellitus Congestive heart failure Pancreatic cancer Father Diabetes mellitus Brother Diabetes mellitus Pancreatitis Sister Drug overdose Social History household members: family Smoking Status: Current every day smoker alcohol intake: current Assessment & Plan Assessment & Plan narrative: Ms. Garnica is a 46W with PMH Type 1 DM with presents with COVID+ and DKA. 1. DKA, acute -likely precipitated by COVID infection and poor long-term control -UA also positive, ordered ceftriaxone for UTI -A1c 11 -treated with IV fluids and insulin drip per DKA protocol, with resolution of anion gap and improvement in acidosis -ketones still mildly elevated as of mid afternoon although anion gap has corrected, there for continue D5 half-normal with 20 added KCl at 150 cc/hour and insulin drip 2 units/hour, check ABG q.1 hour through to night -repeat BMP and serum ketones in a.m. 2. COVID positive -currently not requiring oxygen, she is short of breath, but likely secondary to acidosis -no indication to start remdesivir, or dexamethasone currently but will recommend starting if becomes hypoxemic 3. Chronic pain -continue long active morphine 4. Anxiety and depression -continue home medications 5. UTI -UA positive, culture growing group B strep bacteria -continue ceftriaxone -leukocytosis more likely secondary to DKA rather than severe infection CODE: Full Proxy: Jhonny Johnson, family Time Spent With Patient Critical Care time: I spent a total of [] minutes of critical care time on this patient's care today; this time is exclusive of procedural time.
[2021-07-26] MEDS: SODIUM,POTASSIUM PHOSPHATES PACKET 2 EACH PO ×2 (18:30→21:49)
[2021-07-26] MEDS: INSULIN LISPRO 100 UNIT/ML 3ML VIAL SUBCUT (18:31)
[2021-07-26] MEDS: INSULIN DRIP PREMIX 100 UNIT/100 ML PLAST..BAG IV (19:43)
[2021-07-26] MEDS: DEXTROSE 5%-0.45NS W/KCL 20MEQ 1,000 ML 150 MEQ IV (19:44)
[2021-07-26] MEDS: LACTATED RINGERS 1,000 ML 1000 ML IV (20:53)
[2021-07-26 21:57] LABS: BUN Creatinine Ratio 8.3 (6-22); Blood Urea Nitrogen 4 mg/dL (7-17); Calcium 7.1 mg/dL (8.4-10.2); Carbon Dioxide 13 mmol/L (22-32); Chloride 114 mmol/L (98-107); Estimated Glomerular Filt Rate > 60.0 mL/min (>60); Glucose 130 mg/dL (70-100); HEMOLYSIS < 15 (0-50); Potassium 3.9 mmol/L (3.4-5.1); Sodium 134 mmol/L (137-145)
--- NOTE | 2021-07-26 22:24 | PM.CN.EICU ---
History of Present Illness Consult details Chief complaint: SOB/NOT ABLE TO WALK FAR :: This patient was seen via real time interactive two-way audiovisual telecommunication. 46 y.o. female who presented to the ED with SOB x 2-3 days and dysuria. PMHx is notable for T1DM and SLE. She was diagnosed with DKA and an UTI and was started on a DKA protocol as well as ceftriaxone. Her anion gap closed and she was downgraded to acute care. However, ICU nursing staff states that she was been changed to ICU status due to recurrent ketonemia of 0.84 @ 1530. She is currently on a regular insulin drip of 2 units/hr. Anion gap is 7 but she does have hyperchloremia. She also tested (+) for COVID-19 but is on RA and currently asymptomatic. [facility] Medical History (Updated 07/26/21 @ 22:31 by Shaun Ladd MD) Gastroesophageal reflux disease Insulin dependent diabetes mellitus Lupus Osteoporosis Surgical History No pertinent past surgical history Family History Mother Diabetes mellitus Congestive heart failure Pancreatic cancer Father Diabetes mellitus Brother Diabetes mellitus Pancreatitis Sister Drug overdose Social History household members: family Smoking Status: Current every day smoker alcohol intake: current Current Medications Current Medications Medications: Home Medications insulin aspart U-100 100 unit/mL (3 mL) subcutaneous pen (Novolog Flexpen U-100 Insulin aspart) 0 unit SUB-Q AC #3 unit 02/12/18 [Rx Confirmed 07/26/21] buspirone 10 mg tablet 2 tab PO TID 12/08/18 [History Confirmed 07/26/21] cyclobenzaprine 10 mg tablet 10 mg PO TID PRN 12/08/18 [History Confirmed 07/26/21] duloxetine 60 mg capsule,delayed release 60 mg PO DAILY 12/08/18 [History Confirmed 07/26/21] gabapentin 600 mg tablet 1.5 tab PO TID 12/08/18 [History Confirmed 07/26/21] acetaminophen 325 mg tablet 975 mg PO TID PRN #30 tab 12/12/18 [Rx Confirmed 07/26/21] ibuprofen 600 mg tablet 600 mg PO Q6H PRN #30 tab 03/21/20 [Rx Confirmed 07/26/21] insulin glargine 100 unit/mL (3 mL) subcutaneous pen 40 unit SUBCUT QPM 07/26/21 [History Confirmed 07/26/21] Visit Medications (administered) Generic Name Dose Route Start Last Admin Trade Name Jhonyq PRN Reason Stop Dose Admin Acetaminophen 650 mg 07/25/21 21:49 07/26/21 09:45 Acetaminophen 325 Mg Tablet PO 650 mg Q6HR PRN Administration Fever Dextrose 25 gm 07/25/21 21:51 07/26/21 21:43 Dextrose 50 % In Water 25 Gm/50 Ml Syringe IV 25 gm PRN PRN Administration Hypoglycemia Enoxaparin Sodium 40 mg 07/26/21 09:00 07/26/21 09:41 Enoxaparin 40 Mg/0.4 Ml Syringe SUBCUT 40 mg DAILY JOSE ANTONIO Administration Ceftriaxone Sodium 1,000 mg/ 100 mls @ 200 mls/hr 07/26/21 00:00 07/26/21 01:10 PDT Sodium Chloride IV Infused Q24H JOSE ANTONIO Infusion Potassium Chloride/Dextrose/Sod Cl 1,000 mls @ 150 mls/hr 07/26/21 10:30 07/26/21 19:44 Dextrose 5%-0.45%Ns W/Kcl 20meq IV 150 mls/hr CONT JOSE ANTONIO Administration INSULIN DRIP PREMIX 100 unit in 100 mls @ 2 mls/hr 07/26/21 19:00 07/26/21 21:00 Myxredlin Drip Premix IV 0 mls/hr CONT JOSE ANTONIO 0 mls/hr Titration Protocol Insulin Human Lispro 0 unit 07/26/21 16:45 07/26/21 21:41 Insulin Lispro 100 Unit/Ml 3ml Vial SUBCUT Not Given ACHS JOSE ANTONIO Protocol Ketorolac Tromethamine 15 mg 07/25/21 22:57 07/26/21 20:55 Ketorolac 30 Mg/Ml Vial IV 07/30/21 22:57 15 mg Q6H PRN Administration pain Ondansetron HCl 4 mg 07/25/21 21:51 07/26/21 03:01 Ondansetron 4 Mg/2 Ml Inj IV 4 mg Q4HR PRN Administration Nausea And Vomiting Exam Vital Signs (past 8 hours): - 11/07/21 15:06 07/26/21 17:42 07/26/21 20:55 Temperature 98.4 F 100.1 F H Pulse Rate 105 H 103 H Respiratory Rate 30 H 28 H Blood Pressure 89/53 L Pulse Oximetry 98 99 07/26/21 21:00 Temperature 100 F H Pulse Rate 95 H Respiratory Rate 18 Blood Pressure 89/53 L Pulse Oximetry 96 Oxygen Delivery Method Room Air Oxygen Flow Rate 0 Narrative Exam Narrative: sleeping comfortably on camera Objective Labs Result Diagrams: 07/25/21 20:26 07/26/21 21:20 Labs: Laboratory Results - last 24 hr 07/25/21 07/26/21 07/26/21 20:26 00:35 00:43 VBG pH 7.19 L* VBG pCO2 17.4 L VBG pO2 35 VBG HCO3 7 L VBG Total CO2 7 L VBG O2 Saturation 56 L VBG Base Excess -22.0 L Sodium 137 Potassium 3.2 L D Chloride 111 H Carbon Dioxide 7 L* BUN 8 Creatinine 0.55 Estimated GFR > 60.0 BUN/Creatinine Ratio 14.5 Glucose 167 H D Hemoglobin A1c 11.0 H Lactate Calcium 8.5 Phosphorus Nasal Screen MRSA (PCR) Ketones 07/26/21 07/26/21 07/26/21 02:00 03:10 07:06 VBG pH 7.23 L 7.27 L VBG pCO2 23.2 L 21.8 L VBG pO2 45 37 VBG HCO3 10 L 10 L VBG Total CO2 11 L 11 L VBG O2 Saturation 74 65 L VBG Base Excess -18.0 L -17.0 L Sodium 134 L Potassium 3.9 Chloride 113 H Carbon Dioxide 8 L* BUN 7 Creatinine 0.47 L Estimated GFR > 60.0 BUN/Creatinine Ratio 14.9 Glucose 231 H Hemoglobin A1c Lactate Calcium 7.8 L Phosphorus Nasal Screen MRSA (PCR) Ketones 07/26/21 07/26/21 07/26/21 09:20 09:20 14:20 VBG pH VBG pCO2 VBG pO2 VBG HCO3 VBG Total CO2 VBG O2 Saturation VBG Base Excess Sodium 135 L 134 L Potassium 4.8 4.3 Chloride 114 H 114 H Carbon Dioxide 7 L* 10 L BUN 6 L 5 L Creatinine 0.53 0.47 L Estimated GFR > 60.0 > 60.0 BUN/Creatinine Ratio 11.3 10.6 Glucose 170 H 234 H Hemoglobin A1c Lactate Calcium 8.3 L 7.4 L Phosphorus 1.7 L Nasal Screen MRSA (PCR) Ketones 07/26/21 07/26/21 07/26/21 14:21 15:40 15:40 VBG pH VBG pCO2 VBG pO2 VBG HCO3 VBG Total CO2 VBG O2 Saturation VBG Base Excess Sodium Potassium Chloride Carbon Dioxide BUN Creatinine Estimated GFR BUN/Creatinine Ratio Glucose Hemoglobin A1c Lactate 0.5 L Calcium Phosphorus Nasal Screen MRSA (PCR) Negative for mrsa Ketones 0.84 H 07/26/21 21:20 VBG pH VBG pCO2 VBG pO2 VBG HCO3 VBG Total CO2 VBG O2 Saturation VBG Base Excess Sodium 134 L Potassium 3.9 Chloride 114 H Carbon Dioxide 13 L BUN 4 L Creatinine 0.48 L Estimated GFR > 60.0 BUN/Creatinine Ratio 8.3 Glucose 130 H D Hemoglobin A1c Lactate Calcium 7.1 L Phosphorus Nasal Screen MRSA (PCR) Ketones Assessment & Plan Assessment and plan (1) DKA (diabetic ketoacidosis): Qualifiers: Diabetes mellitus type: type 1 Status: Acute Plan: -Continue DKA protocol (2) Asymptomatic COVID-19 virus infection: Status: Acute Plan: -Follow (3) Hyperchloremic metabolic acidosis: Status: Acute Plan: -Change to D5LR Time Spent With Patient Critical Care time: I spent a total of [] minutes of critical care time on this patient's care today; this time is exclusive of procedural time.
[2021-07-26] MEDS: DEXTROSE 5%-LACTATED RINGERS 1,000 ML 125 ML IV (22:47)
[2021-07-26] MEDS: SODIUM CHLORIDE 0.9% 250 ML 21 ML IV (23:32)
[2021-07-27] VITALS: BP 85/51; PULSE 91; RESP 22; TEMP 37; O2SAT 98
--- NOTE | 2021-07-27 01:16 | PC.NURSE ---
At 2000 BG 151, order noted to start insulin gtt @ 2u/hr. BG rechecked at 2100, BG 35. D50 given IVP, notified, and insulin gtt stopped. recheck of BG 141, then at 2200 130. IV fluids changed per order to D5LR ar 125/hr. At 2300 BG 246 and order noted to restart insulin gtt @ 1u/hr. MN check BG 204 then 0100 BG 111. Hospitalist notified and insulin gtt held.
[2021-07-27 01:25] LABS: BUN Creatinine Ratio 12.5 (6-22); Blood Urea Nitrogen 5 mg/dL (7-17); Calcium 6.9 mg/dL (8.4-10.2); Carbon Dioxide 15 mmol/L (22-32); Chloride 114 mmol/L (98-107); Estimated Glomerular Filt Rate > 60.0 mL/min (>60); Glucose 103 mg/dL (70-100); HEMOLYSIS < 15 (0-50); Potassium 3.6 mmol/L (3.4-5.1); Sodium 135 mmol/L (137-145)
[2021-07-27] MEDS: DEXTROSE 50 % IN WATER 25 GM/50 ML SYRINGE IV (02:57)
[2021-07-27] MEDS: KETOROLAC 30 MG/ML VIAL 15 MG IV ×2 (03:03→08:45)
[2021-07-27 04:00] VITALS: BP 93/55; PULSE 102; RESP 24; TEMP 37; O2SAT 98
[2021-07-27] MEDS: DEXTROSE 5%-LACTATED RINGERS 1,000 ML 125 ML IV (06:36)
[2021-07-27 06:57] LABS: Add Manual Diff / Slide Review NO; Basophils Absolute Auto 0 /uL (0-100); Basophils Percent Auto 0.1 % (0-2); Eosinophils Absolute Auto 0 /uL (0-450); Eosinophils Percent Auto 0.2 % (2-4); Hematocrit 25.3 % (36-46); Hemoglobin 8.3 g/dL (12.0-16.0); Lymphocytes Absolute Auto 1000 /uL (1100-4500); Lymphocytes Percent Auto 8.6 % (25-40); Mean Corpuscular HGB Conc 32.7 % (30-36); Mean Corpuscular Hemoglobin 30.1 PG (26-34); Monocytes Absolute Auto 1000 /uL (0-900); Monocytes Percent Auto 9.1 % (3-14); Neutrophils Absolute Auto 9400 /uL (1500-7000); Platelet Count 474 X10^3/uL (150-400); Red Blood Cell Count 2.75 X10^6/uL (4.0-5.2); Red Cell Distribution Width 19.9 % (11.6-14.8); White Blood Cell Count 11.4 X10^3/uL (4.5-11.0)
[2021-07-27 07:20] LABS: BUN Creatinine Ratio 8.3 (6-22); Blood Urea Nitrogen 3 mg/dL (7-17); Calcium 7.1 mg/dL (8.4-10.2); Carbon Dioxide 16 mmol/L (22-32); Chloride 109 mmol/L (98-107); Estimated Glomerular Filt Rate > 60.0 mL/min (>60); Glucose 121 mg/dL (70-100); HEMOLYSIS < 15 (0-50); Potassium 3.3 mmol/L (3.4-5.1); Sodium 134 mmol/L (137-145)
[2021-07-27 07:48] LABS: Ketones (Beta-Hydroxybutyrate) 0.06 mmol/L (<0.27)
[2021-07-27] MEDS: DULOXETINE 30 MG CAPSULE 60 MG PO (08:45)
[2021-07-27] MEDS: CYCLOBENZAPRINE 10 MG TABLET PO (08:46)
[2021-07-27] MEDS: ENOXAPARIN 40 MG/0.4 ML SYRINGE SUBCUT (08:46)
[2021-07-27] MEDS: GABAPENTIN 600 MG TABLET 900 MG PO (08:46)
--- NOTE | 2021-07-27 12:05 | PC.NURSE ---
Pt is feeling better, up to BSC with SBA. Ready to dc home, orders obtained. MIdline removed from LUE. Assist to change and d/c.
--- NOTE | 2021-07-27 15:25 | P.DS_ITS ---
History of Present Illness History of Present Illness Chief complaint: SOB/NOT ABLE TO WALK FAR Narrative: Ms. Garnica is a 46W with PMH Type 1 DM, lupus, chronic pain who presents with shortness of breath, lack of appetite, dysuria. She notes her symptoms have been happening for 2-3 days, prior to this she was ddiagnosed with a UTI and has complete antibiotics for this. She continues to have dysuria. She also developed nausea, vomiting, fatigue, shortness of breath, cough that was minimally productive. She usually takes 40U lantus daily, along with sliding scale insulin. She has not taken this for the last few days, and has not checked her blood sugar either. In the ED workup was done, vitals notable for patient being afebrile, tachycardic in the 100s, RR in the 20s, blood pressure in the 100s systolic, sat 100% RA. WBC 23.6, hgb 12.8, plts 794, na 132, k 4.8, co2 <5, creatinine 0.77, glucose 721. VBG with pH 7.09, pCO2 16, HCO3 5. COVID positive. Urine with 10-30 WBC, 2-10 bacteria. Chest xray showed no acute process but showed likely artifact. She was ordered for IV fluid boluses, started on insulin gtt and admitted for further treatment. 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 Acute diabetic ketoacidosis 2. COVID positive status without pneumonia or respiratory failure 3. Urinary tract infection group B strep 4. Chronic pain Patient admitted due to DKA thought precipitated by COVID infection. She was treated with insulin drip and fluids per DKA protocol. She did get hypoglycemic fairly early on after initiation of insulin drip. She did eventually clear ketones with resolution of anion gap acidosis. She was also treated for simple UTI. In terms of COVID she was not having fever or respiratory issues but is experiencing myalgias and probably loss of appetite. She is tolerating diet with stable blood sugars in the 100s and medical stable for discharge home. Status at Discharge Cognitive/behavioral status at discharge: oriented Functional status at discharge: independent ambulation Overall status at discharge: patient is progressing back to baseline Time Spent with Patient Time spent: Less than 30 minutes Exam Vital Signs (past 8 hours): Oxygen Delivery Method Room Air Oxygen Flow Rate 0 Narrative Exam Narrative: General: Alert and pleasant female in no acute distress Objective Labs Result Diagrams: 07/27/21 06:00 07/27/21 06:00 Labs: Laboratory Results - last 24 hr 07/26/21 07/26/21 07/26/21 14:21 15:40 15:40 WBC RBC Hgb Hct MCV MCH MCHC RDW Plt Count Neut % (Auto) Lymph % (Auto) [place] % (Auto) Eos % (Auto) Baso % (Auto) Neut # (Auto) Lymph # (Auto) [place] # (Auto) Eos # (Auto) Baso # (Auto) Sodium Potassium Chloride Carbon Dioxide BUN Creatinine Estimated GFR BUN/Creatinine Ratio Glucose Lactate 0.5 L Calcium Nasal Screen MRSA (PCR) Negative for mrsa Ketones 0.84 H 07/26/21 07/27/21 07/27/21 21:20 01:00 06:00 WBC 11.4 H D RBC 2.75 L Hgb 8.3 L Hct 25.3 L MCV 92.0 D MCH 30.1 MCHC 32.7 D RDW 19.9 H Plt Count 474 H Neut % (Auto) 82.0 H Lymph % (Auto) 8.6 L [place] % (Auto) 9.1 Eos % (Auto) 0.2 L Baso % (Auto) 0.1 Neut # (Auto) 9400 H Lymph # (Auto) 1000 L [place] # (Auto) 1000 H Eos # (Auto) 0 Baso # (Auto) 0 Sodium 134 L 135 L Potassium 3.9 3.6 Chloride 114 H 114 H Carbon Dioxide 13 L 15 L BUN 4 L 5 L Creatinine 0.48 L 0.40 L Estimated GFR > 60.0 > 60.0 BUN/Creatinine Ratio 8.3 12.5 Glucose 130 H D 103 H Lactate Calcium 7.1 L 6.9 L Nasal Screen MRSA (PCR) Ketones 07/27/21 07/27/21 06:00 06:00 WBC RBC Hgb Hct MCV MCH MCHC RDW Plt Count Neut % (Auto) Lymph % (Auto) [place] % (Auto) Eos % (Auto) Baso % (Auto) Neut # (Auto) Lymph # (Auto) [place] # (Auto) Eos # (Auto) Baso # (Auto) Sodium 134 L Potassium 3.3 L Chloride 109 H Carbon Dioxide 16 L BUN 3 L Creatinine 0.36 L Estimated GFR > 60.0 BUN/Creatinine Ratio 8.3 Glucose 121 H Lactate Calcium 7.1 L Nasal Screen MRSA (PCR) Ketones 0.06 PFSH Medical History (Updated 07/26/21 @ 22:31 by Shaun Ladd MD) Gastroesophageal reflux disease Insulin dependent diabetes mellitus Lupus Osteoporosis Surgical History No pertinent past surgical history Family History Mother Diabetes mellitus Congestive heart failure Pancreatic cancer Father Diabetes mellitus Brother Diabetes mellitus Pancreatitis Sister Drug overdose Social History household members: family Smoking Status: Current every day smoker alcohol intake: current Discharge Plan Discharge Plan Patient Disposition: Home Provider Discharge Comment: You were admitted with DKA with blood sugar of > 700. Please keep close track of your blood sugars at home. You need insulin even if you are not eating. I recommend to take 1/2 your usual Lantus dose if you are eating less than 50% of meals. Otherwise take full Lantus dose if eating normally or your blood sugars are 150 or higher. Continue sliding scale insulin. You were also diagnosed with COVID. Monitor for fever, cough and shortness of breath symptoms. You should quarantine for 10 days from diagnosis (through August 03). You should still get vaccinated starting in 3 months from now. You were also given IV antibiotic for UTI. Discharge orders & Medications Prescriptions: Continued insulin aspart U-100 [Novolog Flexpen U-100 Insulin] 100 unit/mL Insulin Pen 0 unit Sub-Q AC Qty: 3 RF: 0 buspirone 10 mg Tablet 2 tab PO TID RF: 0 cyclobenzaprine 10 mg Tablet 10 mg PO TID PRN (Reason: pain) RF: 0 duloxetine 60 mg Capsule,Delayed Release(Dr/Ec) 60 mg PO DAILY RF: 0 gabapentin 600 mg Tablet 1.5 tab PO TID RF: 0 acetaminophen 325 mg Tablet 975 mg PO TID PRN (Reason: Pain, Moderate) Qty: 30 RF: 0 insulin glargine 100 unit/mL (3 mL) Insulin Pen 40 unit SUBCUT QPM RF: 0 ibuprofen 600 mg tablet 600 mg PO Q6H PRN (Reason: pain) Qty: 30 RF: 0 Follow up/Referrals: Jhonny Evans PA-C [Primary Care Provider] - Diet/Activity/Treatments Diet: Carb-consistent/Diabetic Visit Report/Discharge Packet Instructions: DI for Diabetic Ketoacidosis, DI for COVID-19 (Suspected or Confirmed ) Discharge Data Primary Care Provider: Jhonny Evans
== END 2021-07-27 12:36 | disposition home or self-care (01) | DRG 177 ==
LOC: ED 20:12 → AC 23:39 → ICU 07-26 13:34 → AC 07-28 10:54
PROVIDERS: Internal Medicine; Admitting Provider Internal Medicine; Emergency Provider Emergency Medicine; PCP Physician Assistant; Referring Provider Emergency Medicine; Visit Provider Internal Medicine
DX: U07.1 COVID-19 (principal); E10.10 Type 1 diabetes mellitus with ketoacidosis without coma; N39.0 Urinary tract infection, site not specified; B95.1 Streptococcus, group B, as the cause of diseases classified elsewhere; M32.9 Systemic lupus erythematosus, unspecified; F17.210 Nicotine dependence, cigarettes, uncomplicated; G89.29 Other chronic pain; F41.9 Anxiety disorder, unspecified; F32.A Depression, unspecified; Z79.4 Long term (current) use of insulin
CPT/HCPCS: 36415; 36592; 71045; 80048; 80053; 81001; 82009; 82550; 82805; 82962; 83036; 83605; 83690; 83735; 83880; 84100; 84484; 85025; 85610; 87040; 87077; 87086; 87147; 87635; 87797; 93005; 93010; 96361; 96365; 96366; 96367; 96368; 99284; 99291; 99292; C9803; J0696; J1642; J1650; J1815; J1885; J2405; J7121

== ENCOUNTER 2021-08-05 10:45 | Inpatient (IN) | payer MEDICAID, OTHER, SELFPAY ==
[2021-08-05] VITALS (15 sets, daily range): BP systolic 65–111; BP diastolic 40–68; PULSE 87–100; RESP 20–27; TEMP 35.8–36.4; O2SAT 95–99; BMI 19.5
--- NOTE | 2021-08-05 10:57 | ED_ITS ---
HPI - General Adult General Chief complaint: Fever Stated complaint: Low BP,COVID + Time Seen by Provider: 08/05/21 10:46 Source: patient and EMS Mode of arrival: EMS Limitations: no limitations History of Present Illness HPI narrative: Patient is a 46-year-old female. History of atrial fibrillation not on anticoa gulation, also has history of insulin-dependent diabetes. Had a recent hospital admission to the ICU for DKA and acute kidney injury and urinary tract infection. That was at the beginning of this month. She has been subsequently discharged. States she has not felt normal since that time. She went to the [facility] today because she was feeling very poorly. Is having nausea. No vomiting. No change in bowel habits. No chest pain. Is having some shortness of breath. Most of the symptoms are not specifically new today but have been going on for the past month. She has not been taking her insulin today because she has been eating. Initially the clinic [place]. Patient was found to have episodes of tachycardia into the 150 range and also hypotensive with a systolic blood pressure in the 70s. They were unable to obtain any IV access prior to arrival. Related Data Home Medications Medication Instructions Recorded Confirmed buspirone 10 mg tablet 2 tab PO TID 12/08/18 08/05/21 cyclobenzaprine 10 mg tablet 10 mg PO TID PRN 12/08/18 08/05/21 duloxetine 60 mg capsule,delayed 60 mg PO DAILY 12/08/18 08/05/21 release gabapentin 600 mg tablet 1.5 tab PO TID 12/08/18 08/05/21 insulin glargine 100 unit/mL (3 40 unit SUBCUT QPM 07/26/21 08/05/21 mL) subcutaneous pen Previous Rx's Medication Instructions Recorded insulin aspart U-100 100 unit/mL 0 unit (0 mL) SUB-Q AC #3 unit 02/12/18 (3 mL) subcutaneous pen (Novolog Flexpen U-100 Insulin aspart) acetaminophen 325 mg tablet 975 mg PO TID PRN #30 tab 12/12/18 ibuprofen 600 mg tablet 600 mg PO Q6H PRN #30 tab 03/21/20 Allergies Allergy/AdvReac Type Severity Reaction Status Date / Time amitriptyline Allergy Intermediate Verified 08/05/21 11:25 sulfasalazine [SULFASALAZINE] Allergy Mild PANCREATITI Verified 08/05/21 11:25 S trazodone AdvReac Intermediate HEART Verified 08/05/21 11:25 PALPITATIONS Review of Systems Constitutional Constitutional: Reports chills, Reports fatigue, Denies fever(s), Denies headache(s) and Reports lethargy Eyes Eyes: Reports system reviewed and no additional complaints, except as documented ENT Ears, Nose, Mouth, and Throat: Reports system reviewed and no additional complaints, except as documented and Denies headache(s) Cardiovascular Cardiovascular: Reports as per HPI and Reports system reviewed and no additional complaints, except as documented Respiratory Respiratory: Reports as per HPI and Reports system reviewed and no additional complaints, except as documented Gastrointestinal Gastrointestinal: Reports as per HPI and Reports system reviewed and no additional complaints, except as documented Genitourinary Genitourinary: Reports system reviewed and no additional complaints, except as documented Musculoskeletal Musculoskeletal: Reports system reviewed and no additional complaints, except as documented Integumentary/Breasts Skin/Breast: Reports system reviewed and no additional complaints, except as documented Neurologic Neurologic: Reports system reviewed and no additional complaints, except as documented and Denies headache(s) Psychiatric Psychiatric: Reports system reviewed and no additional complaints, except as documented Endocrine Endocrine: Reports fatigue Hematologic/Lymphatic On Anticoagulants: No Allergic/Immunologic Allergic/Immunologic: Reports system reviewed and no additional complaints, except as documented Patient History Medical History Alcohol intoxication Closed hip fracture COVID DKA (diabetic ketoacidoses) DKA (diabetic ketoacidosis) Fibromyalgia Gastroesophageal reflux disease Insulin dependent diabetes mellitus Lupus Osteoporosis Surgical History No pertinent past surgical history Family History Mother Diabetes mellitus Congestive heart failure Pancreatic cancer Father Diabetes mellitus Brother Diabetes mellitus Pancreatitis Sister Drug overdose Social History household members: family Smoking Status: Current every day smoker alcohol intake: never Smoking Status: Current every day smoker alcohol intake frequency: holidays/special occasions only Substance Use Type: does not use Exam Initial Vital Signs Initial Vital Signs: Vital Signs Temperature 97.5 F L 08/05/21 10:46 Pulse Rate 98 H 11/17/21 10:46 Respiratory Rate 20 08/05/21 10:46 Blood Pressure 81/60 L 08/05/21 10:46 Pulse Oximetry 98 08/05/21 10:46 Const General: cooperative, No acute distress, frail appearing and ill appearing [facility] Head: normal to inspection and normocephalic Eyes General: appearance normal, both eyes and all related structures Chest Chest: normal inspection of the chest Resp Effort & Inspection: normal respiratory effort Auscultation: clear to auscultation bilaterally Cardio Rate: regular rate Rhythm: regular rhythm Pulses: radial pulses present GI Inspection: normal to inspection and non-distended Palpation: soft, No firm and No tender Back/Spine/Pelvis Back: normal to inspection Skin General: no rashes or lesions noted Neuro General: patient alert, patient awake, patient oriented x3 and moves all extremities Extrem General: capillary refill normal and No edema Psych Appearance: grossly normal and well kempt Course Orders Ordered: ED Orders 08/05/21 10:46 EKG-12 Lead Stat 08/05/21 10:59 XR chest 1V Stat 08/05/21 11:00 CBC Auto Diff [Complete Blood Count AUTO DIFF] Stat Comprehensive Metabolic Panel Stat Ethanol (ETOH) Stat Ketones (Beta-Hydroxybutyrate) Stat Lactate (Lactic Acid) Stat Lipase Stat Magnesium Stat Partial Thromboplastin Time Stat Phosphorous Stat Procalcitonin Stat Respiratory Panel (Film Array) Stat Troponin & CK Cardiac Panel Stat 08/05/21 13:28 Test Serum,Qual Stat Thyroid Stimulating Hormone Stat 08/05/21 14:00 Blood Culture Stat VBG [Venous Blood Gas] Stat 08/05/21 14:21 Urinalysis and Microscopic Stat Urine Culture Stat Urine Drug Screen, Rapid Stat Acetaminophen (Acetaminophen 325 Mg Tablet) 975 mg PO TID PRN PRN Reason: Pain, Moderate Last Admin: 08/05/21 16:02 Dose: 975 mg Documented by: SUDARSHAN Buspirone HCl (Buspirone 5 Mg Tablet) 20 mg PO TID JOSE NATONIO Last Admin: 08/05/21 16:04 Dose: 20 mg Documented by: SUDARSHAN Duloxetine HCl (Duloxetine 30 Mg Capsule) 60 mg PO DAILY [facility] Enoxaparin Sodium (Enoxaparin 40 Mg/0.4 Ml Syringe) 40 mg SUBCUT DAILY [facility] Gabapentin (Gabapentin 600 Mg Tablet) 900 mg PO TID [facility] Last Admin: 08/05/21 16:03 Dose: 900 mg Documented by: SUDARSHAN Sodium Chloride (Normal Saline 0.9%) 1,000 mls @ 125 mls/hr IV CONT JOSE ANTONIO Last Infusion: 08/05/21 14:41 Dose: 0 mls/hr Documented by: Admin: 08/05/21 12:04 Dose: 125 mls/hr Documented by: TUSHAR Insulin Glargine (Insulin Glargine 100 Unit/Ml 3ml Pen) 40 unit SUBCUT QPM [facility] Last Admin: 08/05/21 16:22 Dose: 40 unit Documented by: SUDARSHAN Cosigned by: ALFONZO Insulin Human Lispro (Insulin Lispro 100 Unit/Ml 3ml Vial) 0 unit SUBCUT ACHS [facility]; Protocol Last Admin: 08/05/21 16:21 Dose: 1 unit Documented by: SUDARSHAN Cosigned by: ALFONZO Discontinued Medications Sodium Chloride (Normal Saline 0.9%) 1,000 mls @ 1,000 mls/hr IV BOLUS ONE Stop: 08/05/21 11:56 Last Infusion: 08/05/21 12:04 Dose: 0 mls/hr Documented by: Admin: 08/05/21 11:06 Dose: 1,000 mls/hr Documented by: LEXUS Ceftriaxone Sodium 1,000 mg/ (Sodium Chloride) 100 mls @ 200 mls/hr IV NOW ONE Stop: 08/05/21 12:15 Last Infusion: 08/05/21 14:20 Dose: 0 mls/hr Documented by: Admin: 08/05/21 13:28 Dose: 200 mls/hr Documented by: TUSHAR Morphine Sulfate (Morphine 4 Mg/Ml Inj) 4 mg IV NOW ONE Stop: 08/05/21 12:27 Last Admin: 08/05/21 12:34 Dose: 4 mg Documented by: TUSHAR Vital Signs Vital signs: Vital Signs - 8 hr 08/05/21 10:46 08/05/21 10:51 08/05/21 10:55 Temperature 97.5 F L Pulse Rate 98 H 98 H 97 H Respiratory Rate 20 20 24 Blood Pressure 81/60 L 81/60 L 92/58 L Pulse Oximetry 98 98 99 08/05/21 11:00 08/05/21 11:30 08/05/21 11:39 Temperature Pulse Rate 94 H 90 90 Respiratory Rate 24 24 24 Blood Pressure 87/58 L 90/60 96/62 Pulse Oximetry 98 98 97 08/05/21 12:00 08/05/21 12:30 08/05/21 13:00 Temperature Pulse Rate 87 92 H 94 H Respiratory Rate 27 H 27 H 21 Blood Pressure 95/58 L 92/51 L 111/68 Pulse Oximetry 98 97 98 08/05/21 13:30 08/05/21 14:00 08/05/21 14:01 Temperature Pulse Rate 92 H 92 H 93 H Respiratory Rate 25 H 25 H 22 Blood Pressure 104/67 97/62 Pulse Oximetry 99 96 96 Medical Decision Making Medical Records Medical records reviewed: Yes I reviewed the patient's medical records. Lab Data Lab results reviewed: Yes I reviewed the patient's lab results. Result diagrams: 08/05/21 11:00 08/05/21 11:00 Labs: Lab Results 08/05/21 08/05/21 08/05/21 Range/Units 11:00 11:00 11:00 WBC (4.5-11.0) X10^3/uL RBC (4.0-5.2) X10^6/uL Hgb (12.0-16.0) g/dL Hct (36-46) % MCV (80-100) fL MCH (26-34) PG MCHC (30-36) % RDW (11.6-14.8) % Plt Count (150-400) X10^3/uL Neut % (Auto) (50-75) % Lymph % (Auto) (25-40) % Stokes % (Auto) (3-14) % Eos % (Auto) (2-4) % Baso % (Auto) (0-2) % Neut # (Auto) (1323-2918) /uL Lymph # (Auto) (2859-9048) /uL Stokes # (Auto) (0-900) /uL Eos # (Auto) (0-450) /uL Baso # (Auto) (0-100) /uL APTT 48 H (26.4-36.2) SECONDS VBG pH (7.33-7.43) VBG pCO2 (45-50) mmHg VBG pO2 (35-45) mmHg VBG HCO3 (23-28) mmol/L VBG Total CO2 (24-29) mmol/L VBG O2 Saturation (70-75) % VBG Base Excess (0-4) mmol/L Sodium 138 (137-145) mmol/L Potassium 3.3 L (3.4-5.1) mmol/L Chloride 107 (98-107) mmol/L Carbon Dioxide 19 L (22-32) mmol/L BUN 9 (7-17) mg/dL Creatinine 0.58 (0.52-1.04) mg/dL Estimated GFR > 60.0 (>60) mL/min BUN/Creatinine Ratio 15.5 (6-22) Glucose 157 H (70-100) mg/dL Lactate 1.3 (0.7-2.1) mmol/L Calcium 8.0 L (8.4-10.2) mg/dL Phosphorus (2.5-4.5) mg/dL Magnesium 1.9 (1.6-2.3) mg/dL Total Bilirubin 0.4 (0.2-1.3) mg/dL AST 52 H (14-36) IU/L ALT 45 H (<35) IU/L Alkaline Phosphatase 290 H (38-126) U/L Total Creatine Kinase (30-135) U/L CK-MB (CK-2) CK-MB (CK-2) Rel Index Troponin I (0.01-0.034) ng/mL Total Protein 6.3 (6.3-8.2) g/dL Albumin 2.9 L (3.5-5.0) g/dL Globulin 3.4 (1.7-4.1) g/dL Albumin/Globulin Ratio 0.9 L (1.0-2.8) Lipase < 10 L (23-300) U/L Procalcitonin (<0.5) ng/mL TSH (0.47-4.68) uIU/mL Serum , Qual (Negative) Ethyl Alcohol < 10 ( - 10) mg/dL Ketones 1.31 H (<0.27) mmol/L Chlamy pneumoniae PCR (Not Detect) Adenovirus (PCR) (Not Detect) B. pertussis DNA (PCR) (Not Detecte) B.parapertussis DNA PCR (Not Detecte) Coronavirus OC43 (PCR) (Not Detect) Coronavirus HKU1 (PCR) (Not Detect) Coronavirus 229E (PCR) (Not Detect) SARS-CoV-2 (PCR) (Not Detecte) Coronavirus NL63 (PCR) (Not Detect) Human Metapneumovir PCR (Not Detect) Influenza Type A (PCR) (Not Detect) Influenza Type B (PCR) (Not Detect) M. pneumoniae (PCR) (Not Detect) Parainfluenza 1 (PCR) (Not Detect) Parainfluenza 2 (PCR) (Not Detect) Parainfluenza 3 (PCR) (Not Detect) Parainfluenza 4 (PCR) (Not Detect) RSV (PCR) (Not Detect) Entero/Rhino (PCR) (Not Detect) 08/05/21 08/05/21 08/05/21 Range/Units 11:00 11:00 11:00 WBC (4.5-11.0) X10^3/uL RBC (4.0-5.2) X10^6/uL Hgb (12.0-16.0) g/dL Hct (36-46) % MCV (80-100) fL MCH (26-34) PG MCHC (30-36) % RDW (11.6-14.8) % Plt Count (150-400) X10^3/uL Neut % (Auto) (50-75) % Lymph % (Auto) (25-40) % Stokes % (Auto) (3-14) % Eos % (Auto) (2-4) % Baso % (Auto) (0-2) % Neut # (Auto) (2086-6805) /uL Lymph # (Auto) (0516-6956) /uL Stokes # (Auto) (0-900) /uL Eos # (Auto) (0-450) /uL Baso # (Auto) (0-100) /uL APTT (26.4-36.2) SECONDS VBG pH (7.33-7.43) VBG pCO2 (45-50) mmHg VBG pO2 (35-45) mmHg VBG HCO3 (23-28) mmol/L VBG Total CO2 (24-29) mmol/L VBG O2 Saturation (70-75) % VBG Base Excess (0-4) mmol/L Sodium (137-145) mmol/L Potassium (3.4-5.1) mmol/L Chloride (98-107) mmol/L Carbon Dioxide (22-32) mmol/L BUN (7-17) mg/dL Creatinine (0.52-1.04) mg/dL Estimated GFR (>60) mL/min BUN/Creatinine Ratio (6-22) Glucose (70-100) mg/dL Lactate (0.7-2.1) mmol/L Calcium (8.4-10.2) mg/dL Phosphorus 3.8 (2.5-4.5) mg/dL Magnesium (1.6-2.3) mg/dL Total Bilirubin (0.2-1.3) mg/dL AST (14-36) IU/L ALT (<35) IU/L Alkaline Phosphatase (38-126) U/L Total Creatine Kinase 24 L (30-135) U/L CK-MB (CK-2) TNP CK-MB (CK-2) Rel Index TNP Troponin I < 0.012 (0.01-0.034) ng/mL Total Protein (6.3-8.2) g/dL Albumin (3.5-5.0) g/dL Globulin (1.7-4.1) g/dL Albumin/Globulin Ratio (1.0-2.8) Lipase (23-300) U/L Procalcitonin 31.7 H (<0.5) ng/mL TSH (0.47-4.68) uIU/mL Serum , Qual (Negative) Ethyl Alcohol ( - 10) mg/dL Ketones (<0.27) mmol/L Chlamy pneumoniae PCR Not detected (Not Detect) Adenovirus (PCR) Not detected (Not Detect) B. pertussis DNA (PCR) Not detected (Not Detecte) B.parapertussis DNA PCR Not detected (Not Detecte) Coronavirus OC43 (PCR) Not detected (Not Detect) Coronavirus HKU1 (PCR) Not detected (Not Detect) Coronavirus 229E (PCR) Not detected (Not Detect) SARS-CoV-2 (PCR) Detected H (Not Detecte) Coronavirus NL63 (PCR) Not detected (Not Detect) Human Metapneumovir PCR Not detected (Not Detect) Influenza Type A (PCR) Not detected (Not Detect) Influenza Type B (PCR) Not detected (Not Detect) M. pneumoniae (PCR) Not detected (Not Detect) Parainfluenza 1 (PCR) Not detected (Not Detect) Parainfluenza 2 (PCR) Not detected (Not Detect) Parainfluenza 3 (PCR) Not detected (Not Detect) Parainfluenza 4 (PCR) Not detected (Not Detect) RSV (PCR) Not detected (Not Detect) Entero/Rhino (PCR) Not detected (Not Detect) 08/05/21 08/05/21 08/05/21 Range/Units 11:00 13:28 13:28 WBC 9.5 (4.5-11.0) X10^3/uL RBC 3.99 L (4.0-5.2) X10^6/uL Hgb 11.8 L (12.0-16.0) g/dL Hct 36.4 (36-46) % MCV 91.3 (80-100) fL MCH 29.5 (26-34) PG MCHC 32.3 (30-36) % RDW 19.8 H (11.6-14.8) % Plt Count 421 H (150-400) X10^3/uL Neut % (Auto) 86.3 H (50-75) % Lymph % (Auto) 9.3 L (25-40) % Stokes % (Auto) 4.0 (3-14) % Eos % (Auto) 0.2 L (2-4) % Baso % (Auto) 0.2 (0-2) % Neut # (Auto) 8200 H (7955-6127) /uL Lymph # (Auto) 900 L (9245-1469) /uL Stokes # (Auto) 400 (0-900) /uL Eos # (Auto) 0 (0-450) /uL Baso # (Auto) 0 (0-100) /uL APTT (26.4-36.2) SECONDS VBG pH (7.33-7.43) VBG pCO2 (45-50) mmHg VBG pO2 (35-45) mmHg VBG HCO3 (23-28) mmol/L VBG Total CO2 (24-29) mmol/L VBG O2 Saturation (70-75) % VBG Base Excess (0-4) mmol/L Sodium (137-145) mmol/L Potassium (3.4-5.1) mmol/L Chloride (98-107) mmol/L Carbon Dioxide (22-32) mmol/L BUN (7-17) mg/dL Creatinine (0.52-1.04) mg/dL Estimated GFR (>60) mL/min BUN/Creatinine Ratio (6-22) Glucose (70-100) mg/dL Lactate (0.7-2.1) mmol/L Calcium (8.4-10.2) mg/dL Phosphorus (2.5-4.5) mg/dL Magnesium (1.6-2.3) mg/dL Total Bilirubin (0.2-1.3) mg/dL AST (14-36) IU/L ALT (<35) IU/L Alkaline Phosphatase (38-126) U/L Total Creatine Kinase (30-135) U/L CK-MB (CK-2) CK-MB (CK-2) Rel Index Troponin I (0.01-0.034) ng/mL Total Protein (6.3-8.2) g/dL Albumin (3.5-5.0) g/dL Globulin (1.7-4.1) g/dL Albumin/Globulin Ratio (1.0-2.8) Lipase (23-300) U/L Procalcitonin (<0.5) ng/mL TSH 2.40 (0.47-4.68) uIU/mL Serum , Qual Negative (Negative) Ethyl Alcohol ( - 10) mg/dL Ketones (<0.27) mmol/L Chlamy pneumoniae PCR (Not Detect) Adenovirus (PCR) (Not Detect) B. pertussis DNA (PCR) (Not Detecte) B.parapertussis DNA PCR (Not Detecte) Coronavirus OC43 (PCR) (Not Detect) Coronavirus HKU1 (PCR) (Not Detect) Coronavirus 229E (PCR) (Not Detect) SARS-CoV-2 (PCR) (Not Detecte) Coronavirus NL63 (PCR) (Not Detect) Human Metapneumovir PCR (Not Detect) Influenza Type A (PCR) (Not Detect) Influenza Type B (PCR) (Not Detect) M. pneumoniae (PCR) (Not Detect) Parainfluenza 1 (PCR) (Not Detect) Parainfluenza 2 (PCR) (Not Detect) Parainfluenza 3 (PCR) (Not Detect) Parainfluenza 4 (PCR) (Not Detect) RSV (PCR) (Not Detect) Entero/Rhino (PCR) (Not Detect) 08/05/21 Range/Units 14:00 WBC (4.5-11.0) X10^3/uL RBC (4.0-5.2) X10^6/uL Hgb (12.0-16.0) g/dL Hct (36-46) % MCV (80-100) fL MCH (26-34) PG MCHC (30-36) % RDW (11.6-14.8) % Plt Count (150-400) X10^3/uL Neut % (Auto) (50-75) % Lymph % (Auto) (25-40) % Stokes % (Auto) (3-14) % Eos % (Auto) (2-4) % Baso % (Auto) (0-2) % Neut # (Auto) (0188-9609) /uL Lymph # (Auto) (6795-8627) /uL Stokes # (Auto) (0-900) /uL Eos # (Auto) (0-450) /uL Baso # (Auto) (0-100) /uL APTT (26.4-36.2) SECONDS VBG pH 7.38 (7.33-7.43) VBG pCO2 28.3 L (45-50) mmHg VBG pO2 51 H (35-45) mmHg VBG HCO3 17 L (23-28) mmol/L VBG Total CO2 18 L (24-29) mmol/L VBG O2 Saturation 86 H (70-75) % VBG Base Excess -8.0 L (0-4) mmol/L Sodium (137-145) mmol/L Potassium (3.4-5.1) mmol/L Chloride (98-107) mmol/L Carbon Dioxide (22-32) mmol/L BUN (7-17) mg/dL Creatinine (0.52-1.04) mg/dL Estimated GFR (>60) mL/min BUN/Creatinine Ratio (6-22) Glucose (70-100) mg/dL Lactate (0.7-2.1) mmol/L Calcium (8.4-10.2) mg/dL Phosphorus (2.5-4.5) mg/dL Magnesium (1.6-2.3) mg/dL Total Bilirubin (0.2-1.3) mg/dL AST (14-36) IU/L ALT (<35) IU/L Alkaline Phosphatase (38-126) U/L Total Creatine Kinase (30-135) U/L CK-MB (CK-2) CK-MB (CK-2) Rel Index Troponin I (0.01-0.034) ng/mL Total Protein (6.3-8.2) g/dL Albumin (3.5-5.0) g/dL Globulin (1.7-4.1) g/dL Albumin/Globulin Ratio (1.0-2.8) Lipase (23-300) U/L Procalcitonin (<0.5) ng/mL TSH (0.47-4.68) uIU/mL Serum , Qual (Negative) Ethyl Alcohol ( - 10) mg/dL Ketones (<0.27) mmol/L Chlamy pneumoniae PCR (Not Detect) Adenovirus (PCR) (Not Detect) B. pertussis DNA (PCR) (Not Detecte) B.parapertussis DNA PCR (Not Detecte) Coronavirus OC43 (PCR) (Not Detect) Coronavirus HKU1 (PCR) (Not Detect) Coronavirus 229E (PCR) (Not Detect) SARS-CoV-2 (PCR) (Not Detecte) Coronavirus NL63 (PCR) (Not Detect) Human Metapneumovir PCR (Not Detect) Influenza Type A (PCR) (Not Detect) Influenza Type B (PCR) (Not Detect) M. pneumoniae (PCR) (Not Detect) Parainfluenza 1 (PCR) (Not Detect) Parainfluenza 2 (PCR) (Not Detect) Parainfluenza 3 (PCR) (Not Detect) Parainfluenza 4 (PCR) (Not Detect) RSV (PCR) (Not Detect) Entero/Rhino (PCR) (Not Detect) Imaging Data Chest x-ray: Radiologist's Impression: [address] [address] XRay Report Signed Patient: Valerie Garnica I MR#: [id number] : 1975 Acct:[id number] Age/Sex: 46 / F Date of Service: 08/05/21 Loc: ED Accession Number: [id number] ?? Procedure: XR chest 1V Ordering Provider: Patel Mendes D.O. PROCEDURE:? XR CHEST 1V ? INDICATIONS:? SOB ? TECHNIQUE:? One view of the chest was acquired.? ? COMPARISON:? [facility], , XR CHEST 1V, 07/25/2021, 20:29.? [facility], , CHEST 1 VIEW, 07/15/2017, 8:45. ? FINDINGS:? ? Surgical changes and devices:? None.? ? Lungs and pleura:? Suspect bilateral airspace opacities.? No pleural effusions or pneumothorax.? ? Mediastinum:? Mediastinal contours appear normal.? Heart size is normal.? ? Bones and chest wall:? No suspicious bony lesions.? Round sclerotic foci are no longer present.? Overlying soft tissues appear unremarkable.? ? IMPRESSION:? Suspect bilateral airspace opacities.? This could be due to infectious/inflammatory etiology such as COVID-19. ? Two-view chest radiographs or CT chest would be helpful for further evaluation if clinically indicated. ? ? ? Dictated by: Kenji Thompson M.D. on 08/05/2021 at 12:07 ? ? Approved by: Kenji Thompson M.D. on 08/05/2021 at 12:09?? ECG Data Attestation: I personally reviewed and interpreted this ECG as follows: Prior ECG tracings: not available for review Interpretation: Sinus rhythm Ventricular rate 98 Normal axis Normal QRS Normal QTC Nonspecific ST T wave changes MDM Narrative Medical decision making narrative: Patient has an anion gap of 12. Not acidotic on VBG. Is ill-appearing. Review of her prior [place] [id number] colony-forming units of group B strep. Patient was given Rocephin. She had no episodes of tachycardia/atrial fibrillation since arrival here to the emergency department. Patient's mean arterial pressure has been 65 or greater her entire time here in the emergency department. Patient is COVID positive. Chest x-ray is consistent with patient with COVID. I do have strong suspicion given her clinical presentation that she is on the edge of developing DKA and I have a very high concern that she was discharged home that she would return in DKA. Because of this plan will be is to admit her to the hospital. Discussed the case with Dr. Angel who will admit for further evaluation treatment. Discharge Plan Departure Patient Disposition: Admitted As Inpatient Clinical Impression: COVID-19, Diabetes Admit Date/Time: 08/05/21 14:20 Admit Provider: Aaron Angel
--- NOTE | 2021-08-05 10:59 | DI.RAD.S_ITS ---
PROCEDURE: XR CHEST 1V INDICATIONS: SOB TECHNIQUE: One view of the chest was acquired. COMPARISON: [facility], XR CHEST 1V, 07/25/2021, 20:29. [facility], , CHEST 1 VIEW, 07/15/2017, 8:45. FINDINGS: Surgical changes and devices: None. Lungs and pleura: Suspect bilateral airspace opacities. No pleural effusions or pneumothorax. Mediastinum: Mediastinal contours appear normal. Heart size is normal. Bones and chest wall: No suspicious bony lesions. Round sclerotic foci are no longer present. Overlying soft tissues appear unremarkable. IMPRESSION: Suspect bilateral airspace opacities. This could be due to infectious/inflammatory etiology such as COVID-19. Two-view chest radiographs or CT chest would be helpful for further evaluation if clinically indicated. Dictated by: Kenji Thompson M.D. on 08/05/2021 at 12:07 Approved by: Kenji Thompson M.D. on 08/05/2021 at 12:09
[2021-08-05] MEDS: SODIUM CHLORIDE 0.9% 1,000 ML 1000 ML IV (11:06)
[2021-08-05 11:36] LABS: PTT Partial Thromboplastin Tim 48 SECONDS (26.4-36.2)
[2021-08-05 11:41] LABS: Alanine Aminotransferase 45 IU/L (<35); Albumin 2.9 g/dL (3.5-5.0); Albumin Globulin Ratio 0.9 (1.0-2.8); Alkaline Phosphatase 290 U/L (38-126); Aspartate Aminotransferase 52 IU/L (14-36); BUN Creatinine Ratio 15.5 (6-22); Bilirubin Total 0.4 mg/dL (0.2-1.3); Blood Urea Nitrogen 9 mg/dL (7-17); Carbon Dioxide 19 mmol/L (22-32); Chloride 107 mmol/L (98-107); Creatine Kinase 24 U/L (30-135); Estimated Glomerular Filt Rate > 60.0 mL/min (>60); Ethanol (ETOH) < 10 mg/dL; Globulin 3.4 g/dL (1.7-4.1); Glucose 157 mg/dL (70-100); Lactate (Lactic Acid) 1.3 mmol/L (0.7-2.1); Lipase < 10 U/L (23-300); Magnesium 1.9 mg/dL (1.6-2.3); Phosphorous 3.8 mg/dL (2.5-4.5); Potassium 3.3 mmol/L (3.4-5.1); Sodium 138 mmol/L (137-145); Total Protein 6.3 g/dL (6.3-8.2)
[2021-08-05 11:52] LABS: Troponin I < 0.012 ng/mL (0.01-0.034)
[2021-08-05 11:57] LABS: Procalcitonin 31.7 ng/mL (<0.5)
[2021-08-05] MEDS: SODIUM CHLORIDE 0.9% 1,000 ML 125 ML IV ×2 (12:04→19:23)
[2021-08-05 12:14] LABS: HEMOLYSIS 22 (0-50); Ketones (Beta-Hydroxybutyrate) 1.31 mmol/L (<0.27)
[2021-08-05 12:29] LABS: Adenovirus Not Detected (Not Detect); B. parapertussis Not Detected (Not Detecte); Bordetella pertussis Not Detected (Not Detecte); Chlamydophila pneumoniae Not Detected (Not Detect); Coronavirus 229E Not Detected (Not Detect); Coronavirus HKU1 Not Detected (Not Detect); Coronavirus NL 63 Not Detected (Not Detect); Coronavirus OC43 Not Detected (Not Detect); Human Metapneumovirus Not Detected (Not Detect); Human Rhinovirus/Enterovirus Not Detected (Not Detect); Influenza A Not Detected (Not Detect); Influenza B Not Detected (Not Detect); Mycoplasma pneumoniae Not Detected (Not Detect); Parainfluenza Virus 1 Not Detected (Not Detect); Parainfluenza Virus 2 Not Detected (Not Detect); Parainfluenza Virus 3 Not Detected (Not Detect); Parainfluenza Virus 4 Not Detected (Not Detect); Respiratory Syncytial Virus Not Detected (Not Detect)
[2021-08-05 12:31] LABS: SARS- CoV-2 Detected (Not Detecte)
[2021-08-05] MEDS: MORPHINE 4 MG/ML INJ IV (12:34)
--- NOTE | 2021-08-05 12:34 | PC.NURSE ---
Lab coming to draw 2nd , will hold antbx for a short time
[2021-08-05 12:47] LABS: Add Manual Diff / Slide Review NO; Basophils Absolute Auto 0 /uL (0-100); Basophils Percent Auto 0.2 % (0-2); Eosinophils Absolute Auto 0 /uL (0-450); Eosinophils Percent Auto 0.2 % (2-4); Hematocrit 36.4 % (36-46); Hemoglobin 11.8 g/dL (12.0-16.0); Lymphocytes Absolute Auto 900 /uL (1100-4500); Lymphocytes Percent Auto 9.3 % (25-40); Mean Corpuscular HGB Conc 32.3 % (30-36); Mean Corpuscular Hemoglobin 29.5 PG (26-34); Mean Corpuscular Volume 91.3 fL (80-100); Monocytes Absolute Auto 400 /uL (0-900); Neutrophils Absolute Auto 8200 /uL (1500-7000); Neutrophils Percent Auto 86.3 % (50-75); Platelet Count 421 X10^3/uL (150-400); Red Blood Cell Count 3.99 X10^6/uL (4.0-5.2); Red Cell Distribution Width 19.8 % (11.6-14.8); White Blood Cell Count 9.5 X10^3/uL (4.5-11.0)
[2021-08-05] MEDS: cefTRIAXone 1,000 MG in SODIUM CHLORIDE 0.9% 100 ML 200 ML IV (13:28)
[2021-08-05 13:33] LABS: Pregnancy Test Serum,Qual Negative (Negative)
[2021-08-05 14:32] LABS: pH VBG 7.38 (7.33-7.43)
[2021-08-05 14:32] LABS: Appearance Urine UA CLEAR; Bilirubin Urine UA NEGATIVE (NEGATIVE); Color Urine UA YELLOW; Glucose Urine UA NEGATIVE (Negative); Ketones Urine UA TRACE (NEGATIVE); Leukocyte Esterase Urine UA 1+ (NEGATIVE); Nitrite Urine UA NEGATIVE (Negative); Occult Blood Urine UA 3+ (Negative); Protein Urine UA 1+ (Negative); Urobilinogen Urine UA 0.2 E.U./dL (0.2)
[2021-08-05 14:33] LABS: HCO3 VBG 17 mmol/L (23-28); PCO2 VBG 28.3 mmHg (45-50); PO2 VBG 51 mmHg (35-45); Total CO2 VBG 18 mmol/L (24-29)
[2021-08-05 14:34] LABS: Oxygen Saturation VBG 86 % (70-75)
[2021-08-05 14:39] LABS: Ur Creatinine Normal (Normal); Ur Specific Gravity Normal (Normal); Urine pH Normal (Normal)
[2021-08-05 14:40] LABS: UR Morphine/Opiate cutoff 300 Positive (Negative); Urine Amphetamines Negative (Negative); Urine Barbiturates Negative (Negative); Urine Benzodiazepines Negative (Negative); Urine Cocaine Negative (Negative); Urine MDMA Negative (Negative); Urine Methadone Negative (Negative); Urine Methamphetamines Negative (Negative); Urine Oxycodone Negative (Negative); Urine Phencyclidine Negative (Negative); Urine Tetrahydrocannabinol Negative (Negative); Urine Tricyclic Antidepressant Negative (Negative)
[2021-08-05 14:41] LABS: Bacteria Urine None Seen; RBC Urine 10-30/HPF (0-5/HPF); Squamous Epithelial Cell Urine 5-10 /HPF (0-5/HPF); WBC Urine 5-10/HPF (0-5/HPF)
--- NOTE | 2021-08-05 15:34 | P.HP_ITS ---
History of Present Illness History of Present Illness Chief complaint: Low BP,COVID + Narrative: 46yo female with a hx of insulin-dependent DM II, diabetic neuropathy, fibromyalgia and anxiety/depression that presents with general fatigue, body aches, and decreased appetite. She reports this all started around Jul 20. [place]. She reports that 6 out of 7 of her housemates have COVID. She tested positive for COVID on Jul 25. The patient sta shane she has not been vaccinated, and that 1 member of her household is vaccinated and the others are not. She has had loss of taste and smell, too, that she attributes to COVID, along with her other symptoms. She reports taking her prescribed medications consistently. She reports low PO intake due to decreased appetite and just not feeling like it. She denies fever/chills, cough, SOB, CP, abd pain, diarrhea, skin or tooth infections, urinary sxs or any other sick contacts. She denies recent travel. PSH is relevant for a right hip fracture hx status post orthopedic fixation. She reports having 3 medication allergies and they're listed in the chart, with reactions. She denies any relevant family hx. She endorses smoking 0.5 ppd since the age of 14. She denies EtOH use or illicit drug use. She reports being currently unemployed. Patient History Medical History Alcohol intoxication Closed hip fracture COVID DKA (diabetic ketoacidoses) DKA (diabetic ketoacidosis) Fibromyalgia Gastroesophageal reflux disease Insulin dependent diabetes mellitus Lupus Osteoporosis Surgical History No pertinent past surgical history Family & Social History Family History Mother Diabetes mellitus Congestive heart failure Pancreatic cancer Father Diabetes mellitus Brother Diabetes mellitus Pancreatitis Sister Drug overdose Social History: household members family Prior Living Arrangements House Safety & Behavioral: Feels Safe in Current Yes Environment Been Physically Hurt or No Threatened By a Person Suicidal Ideation Description None Suicide Plan Description No Plan Tobacco & Substance use: Tobacco type cigarettes Smoking Status Current every day smoker alcohol intake never alcohol intake frequency holiday/special occasion Substance Use Type does not use Meds Home Medications and Allergies Home Medications Medication Instructions Recorded Confirmed Type insulin aspart U-100 100 unit/mL 0 unit (0 mL) SUB-Q AC #3 unit 02/12/18 08/05/21 Rx (3 mL) subcutaneous pen (Novolog Flexpen U-100 Insulin aspart) buspirone 10 mg tablet 2 tab PO TID 12/08/18 08/05/21 History cyclobenzaprine 10 mg tablet 10 mg PO TID PRN 12/08/18 08/05/21 History duloxetine 60 mg capsule,delayed 60 mg PO DAILY 12/08/18 08/05/21 History release gabapentin 600 mg tablet 1.5 tab PO TID 12/08/18 08/05/21 History acetaminophen 325 mg tablet 975 mg PO TID PRN #30 tab 12/12/18 08/05/21 Rx ibuprofen 600 mg tablet 600 mg PO Q6H PRN #30 tab 03/21/20 08/05/21 Rx insulin glargine 100 unit/mL (3 40 unit SUBCUT QPM 07/26/21 08/05/21 History mL) subcutaneous pen Allergies Allergy/AdvReac Type Severity Reaction Status Date / Time amitriptyline Allergy Intermediate Verified 08/05/21 11:25 sulfasalazine [SULFASALAZINE] Allergy Mild PANCREATITI Verified 08/05/21 11:25 S trazodone AdvReac Intermediate HEART Verified 08/05/21 11:25 PALPITATIONS Review of Systems Constitutional Comments: Endorses fatigue, low appetite, and body aches. Eyes Comments: Denies vision changes. Cardiovascular Comments: Denies CP, palpitations, racing heart. Respiratory Comments: Denies SOB, cough, URI sxs. Gastrointestinal Comments: Denies abd pain, n/v/d, flank pain. Genitourinary Comments: Denies dysuria, urgency, frequency. Exam Vital Signs (past 8 hours): - 08/05/21 10:46 08/05/21 10:51 08/05/21 10:55 Temperature 97.5 F L Pulse Rate 98 H 98 H 97 H Respiratory Rate 20 20 24 Blood Pressure 81/60 L 81/60 L 92/58 L Pulse Oximetry 98 98 99 08/05/21 11:00 08/05/21 11:30 08/05/21 11:39 Temperature Pulse Rate 94 H 90 90 Respiratory Rate 24 24 24 Blood Pressure 87/58 L 90/60 96/62 Pulse Oximetry 98 98 97 08/05/21 12:00 08/05/21 12:30 08/05/21 13:00 Temperature Pulse Rate 87 92 H 94 H Respiratory Rate 27 H 27 H 21 Blood Pressure 95/58 L 92/51 L 111/68 Pulse Oximetry 98 97 98 08/05/21 13:30 08/05/21 14:00 08/05/21 14:01 Temperature Pulse Rate 92 H 92 H 93 H Respiratory Rate 25 H 25 H 22 Blood Pressure 104/67 97/62 Pulse Oximetry 99 96 96 08/05/21 14:51 Temperature 96.5 F L Pulse Rate 98 H Respiratory Rate 20 Blood Pressure 83/61 L Pulse Oximetry 97 Oxygen Delivery Method Room Air Const Other: Patient is laying in bed comfortably upon my entering the room, watching TV, and in no apparent acute distress. Eyes Other: No scleral icterus appreciated. Resp Other: Poor air exchange diffusely, although inspiratory effort poor. No wheezing appreciated. Cardio Other: Regular rate and rhythm. S1 and S2 heart sounds auscultated. No extra heart lillian nds or murmurs appreciated. No peripheral edema noted. Skin Other: No skin turgor appreciated. No liz skin lesions noted. Extrem Other: Palpable and equal bilateral radial and dorsalis pedis pulses. Objective Labs Result Diagrams: 08/05/21 11:00 08/05/21 11:00 Labs: Laboratory Results - last 24 hr 08/05/21 08/05/21 08/05/21 11:00 11:00 11:00 WBC RBC Hgb Hct MCV MCH MCHC RDW Plt Count Neut % (Auto) Lymph % (Auto) [facility] % (Auto) Eos % (Auto) Baso % (Auto) Neut # (Auto) Lymph # (Auto) [facility] # (Auto) Eos # (Auto) Baso # (Auto) APTT 48 H VBG pH VBG pCO2 VBG pO2 VBG HCO3 VBG Total CO2 VBG O2 Saturation VBG Base Excess Sodium 138 Potassium 3.3 L Chloride 107 Carbon Dioxide 19 L BUN 9 Creatinine 0.58 Estimated GFR > 60.0 BUN/Creatinine Ratio 15.5 Glucose 157 H Lactate 1.3 Calcium 8.0 L Phosphorus Magnesium 1.9 Total Bilirubin 0.4 AST 52 H ALT 45 H Alkaline Phosphatase 290 H Total Creatine Kinase CK-MB (CK-2) CK-MB (CK-2) Rel Index Troponin I Total Protein 6.3 Albumin 2.9 L Globulin 3.4 Albumin/Globulin Ratio 0.9 L Lipase < 10 L Procalcitonin TSH Serum , Qual Urine Color Urine Appearance Urine pH Ur Specific [place] Urine Protein Urine Glucose (UA) Urine Ketones Urine Occult Blood Urine Nitrate Urine Bilirubin Urine Urobilinogen Ur Leukocyte Esterase Urine RBC Urine WBC Ur Squamous Epith Cells Urine Bacteria Ur Culture Indicated? U Opiates 300ng/mL cut Ur Oxycodone Screen Urine Methadone Screen Ur Barbiturates Screen U Tricyclic Antidepress Ur Phencyclidine Scrn Ur Amphetamines Screen U Methamphetamines Scrn Ur MDMA Scrn (Ecstasy) U Benzodiazepines Scrn Urine Cocaine Screen U Marijuana (THC) Screen Ethyl Alcohol < 10 Ketones 1.31 H Chlamy pneumoniae PCR Adenovirus (PCR) B. pertussis DNA (PCR) B.parapertussis DNA PCR Coronavirus OC43 (PCR) Coronavirus HKU1 (PCR) Coronavirus 229E (PCR) SARS-CoV-2 (PCR) Coronavirus NL63 (PCR) Human Metapneumovir PCR Influenza Type A (PCR) Influenza Type B (PCR) M. pneumoniae (PCR) Parainfluenza 1 (PCR) Parainfluenza 2 (PCR) Parainfluenza 3 (PCR) Parainfluenza 4 (PCR) RSV (PCR) Entero/Rhino (PCR) 08/05/21 08/05/21 08/05/21 11:00 11:00 11:00 WBC RBC Hgb Hct MCV MCH MCHC RDW Plt Count Neut % (Auto) Lymph % (Auto) [facility] % (Auto) Eos % (Auto) Baso % (Auto) Neut # (Auto) Lymph # (Auto) [facility] # (Auto) Eos # (Auto) Baso # (Auto) APTT VBG pH VBG pCO2 VBG pO2 VBG HCO3 VBG Total CO2 VBG O2 Saturation VBG Base Excess Sodium Potassium Chloride Carbon Dioxide BUN Creatinine Estimated GFR BUN/Creatinine Ratio Glucose Lactate Calcium Phosphorus 3.8 Magnesium Total Bilirubin AST ALT Alkaline Phosphatase Total Creatine Kinase 24 L CK-MB (CK-2) TNP CK-MB (CK-2) Rel Index TNP Troponin I < 0.012 Total Protein Albumin Globulin Albumin/Globulin Ratio Lipase Procalcitonin 31.7 H TSH Serum , Qual Urine Color Urine Appearance Urine pH Ur Specific Knox Urine Protein Urine Glucose (UA) Urine Ketones Urine Occult Blood Urine Nitrate Urine Bilirubin Urine Urobilinogen Ur Leukocyte Esterase Urine RBC Urine WBC Ur Squamous Epith Cells Urine Bacteria Ur Culture Indicated? U Opiates 300ng/mL cut Ur Oxycodone Screen Urine Methadone Screen Ur Barbiturates Screen U Tricyclic Antidepress Ur Phencyclidine Scrn Ur Amphetamines Screen U Methamphetamines Scrn Ur MDMA Scrn (Ecstasy) U Benzodiazepines Scrn Urine Cocaine Screen U Marijuana (THC) Screen Ethyl Alcohol Ketones Chlamy pneumoniae PCR Not detected Adenovirus (PCR) Not detected B. pertussis DNA (PCR) Not detected B.parapertussis DNA PCR Not detected Coronavirus OC43 (PCR) Not detected Coronavirus HKU1 (PCR) Not detected Coronavirus 229E (PCR) Not detected SARS-CoV-2 (PCR) Detected H Coronavirus NL63 (PCR) Not detected Human Metapneumovir PCR Not detected Influenza Type A (PCR) Not detected Influenza Type B (PCR) Not detected M. pneumoniae (PCR) Not detected Parainfluenza 1 (PCR) Not detected Parainfluenza 2 (PCR) Not detected Parainfluenza 3 (PCR) Not detected Parainfluenza 4 (PCR) Not detected RSV (PCR) Not detected Entero/Rhino (PCR) Not detected 08/05/21 08/05/21 08/05/21 11:00 13:28 13:28 WBC 9.5 RBC 3.99 L Hgb 11.8 L Hct 36.4 MCV 91.3 MCH 29.5 MCHC 32.3 RDW 19.8 H Plt Count 421 H Neut % (Auto) 86.3 H Lymph % (Auto) 9.[address] % (Auto) 4.0 Eos % (Auto) 0.2 L Baso % (Auto) 0.2 Neut # (Auto) 8200 H Lymph # (Auto) [address] [facility] # (Auto) 400 Eos # (Auto) 0 Baso # (Auto) 0 APTT VBG pH VBG pCO2 VBG pO2 VBG HCO3 VBG Total CO2 VBG O2 Saturation VBG Base Excess Sodium Potassium Chloride Carbon Dioxide BUN Creatinine Estimated GFR BUN/Creatinine Ratio Glucose Lactate Calcium Phosphorus Magnesium Total Bilirubin AST ALT Alkaline Phosphatase Total Creatine Kinase CK-MB (CK-2) CK-MB (CK-2) Rel Index Troponin I Total Protein Albumin Globulin Albumin/Globulin Ratio Lipase Procalcitonin TSH 2.40 Serum , Qual Negative Urine Color Urine Appearance Urine pH Ur Specific Knox Urine Protein Urine Glucose (UA) Urine Ketones Urine Occult Blood Urine Nitrate Urine Bilirubin Urine Urobilinogen Ur Leukocyte Esterase Urine RBC Urine WBC Ur Squamous Epith Cells Urine Bacteria Ur Culture Indicated? U Opiates 300ng/mL cut Ur Oxycodone Screen Urine Methadone Screen Ur Barbiturates Screen U Tricyclic Antidepress Ur Phencyclidine Scrn Ur Amphetamines Screen U Methamphetamines Scrn Ur MDMA Scrn (Ecstasy) U Benzodiazepines Scrn Urine Cocaine Screen U Marijuana (THC) Screen Ethyl Alcohol Ketones Chlamy pneumoniae PCR Adenovirus (PCR) B. pertussis DNA (PCR) B.parapertussis DNA PCR Coronavirus OC43 (PCR) Coronavirus HKU1 (PCR) Coronavirus 229E (PCR) SARS-CoV-2 (PCR) Coronavirus NL63 (PCR) Human Metapneumovir PCR Influenza Type A (PCR) Influenza Type B (PCR) M. pneumoniae (PCR) Parainfluenza 1 (PCR) Parainfluenza 2 (PCR) Parainfluenza 3 (PCR) Parainfluenza 4 (PCR) RSV (PCR) Entero/Rhino (PCR) 08/05/21 08/05/21 08/05/21 14:00 14:21 14:21 WBC RBC Hgb Hct MCV MCH MCHC RDW Plt Count Neut % (Auto) Lymph % (Auto) [facility] % (Auto) Eos % (Auto) Baso % (Auto) Neut # (Auto) Lymph # (Auto) [facility] # (Auto) Eos # (Auto) Baso # (Auto) APTT VBG pH 7.38 VBG pCO2 28.3 L VBG pO2 51 H VBG HCO3 17 L VBG Total CO2 18 L VBG O2 Saturation 86 H VBG Base Excess -8.0 L Sodium Potassium Chloride Carbon Dioxide BUN Creatinine Estimated GFR BUN/Creatinine Ratio Glucose Lactate Calcium Phosphorus Magnesium Total Bilirubin AST ALT Alkaline Phosphatase Total Creatine Kinase CK-MB (CK-2) CK-MB (CK-2) Rel Index Troponin I Total Protein Albumin Globulin Albumin/Globulin Ratio Lipase Procalcitonin TSH Serum , Qual Urine Color Yellow Urine Appearance Clear Urine pH 7.0 Ur Specific Knox 1.010 Urine Protein 1+ H Urine Glucose (UA) Negative Urine Ketones Trace H Urine Occult Blood 3+ H Urine Nitrate Negative Urine Bilirubin Negative Urine Urobilinogen 0.2 Ur Leukocyte Esterase 1+ H Urine RBC 10-30/hpf H Urine WBC 5-10/hpf H Ur Squamous Epith Cells 5-10 /hpf H Urine Bacteria None seen Ur Culture Indicated? Culture not indicate U Opiates 300ng/mL cut Positive H Ur Oxycodone Screen Negative Urine Methadone Screen Negative Ur Barbiturates Screen Negative U Tricyclic Antidepress Negative Ur Phencyclidine Scrn Negative Ur Amphetamines Screen Negative U Methamphetamines Scrn Negative Ur MDMA Scrn (Ecstasy) Negative U Benzodiazepines Scrn Negative Urine Cocaine Screen Negative U Marijuana (THC) Screen Negative Ethyl Alcohol Ketones Chlamy pneumoniae PCR Adenovirus (PCR) B. pertussis DNA (PCR) B.parapertussis DNA PCR Coronavirus OC43 (PCR) Coronavirus HKU1 (PCR) Coronavirus 229E (PCR) SARS-CoV-2 (PCR) Coronavirus NL63 (PCR) Human Metapneumovir PCR Influenza Type A (PCR) Influenza Type B (PCR) M. pneumoniae (PCR) Parainfluenza 1 (PCR) Parainfluenza 2 (PCR) Parainfluenza 3 (PCR) Parainfluenza 4 (PCR) RSV (PCR) Entero/Rhino (PCR) Assessment & Plan Assessment & Plan narrative: Assessment: 1. Likely long COVID-19 syndrome 2. COVID-19 pneumonia 3. Insulin-dependent DM II 4. Diabetic neuropathy 5. Hx of depression 6. Hx of fibromyalgia 7. Hx of anxiety Plan: 1. Patient being re-hydrated on IV fluids. Other potential etiologies, e.g. active bacterial infection, hypothyroidism, DKA, acute drug intoxication, etc., effectively ruled-out so far. 2. Patient is not requiring any supplemental oxygen, and respiratory status stable for now. 3. Will continue home Lantus 40 units nightly. Insulin sliding scale. 4. Will resume home gabapentin 600 mg tid. 5. Will resume home duloxetine 60 mg daily, which is likely helping with problems 4 and 6, too. 6. Will resume home duloxetine 60 mg daily. 7. Will resume home buspirone 2 mg tid. VTE prophylaxis: Lovenox 40 mg daily Disposition: PT/OT, likely home once clinically stable Time Spent With Patient Critical Care time: I spent a total of [] minutes of critical care time on this patient's care today; this time is exclusive of procedural time.
[2021-08-05] MEDS: ACETAMINOPHEN 325 MG TABLET 975 MG PO ×2 (16:02→21:54)
[2021-08-05] MEDS: GABAPENTIN 600 MG TABLET 900 MG PO ×2 (16:03→21:41)
[2021-08-05] MEDS: BUSPIRONE 5 MG TABLET 20 MG PO ×2 (16:04→21:42)
[2021-08-05] MEDS: INSULIN LISPRO 100 UNIT/ML 3ML VIAL SUBCUT (16:21)
[2021-08-05] MEDS: INSULIN GLARGINE 100 UNIT/ML 3ML PEN 40 UNIT SUBCUT (16:22)
--- NOTE | 2021-08-05 17:36 | PC.NURSE ---
Addendum entered by Brenda Torres R.N. 08/05/21 17:50: Patients blood sugar 101. She has her dinner tray in her room and is going to eat later. Original Note: 1734- Patient up to the bathroom and after back to bed blood pressure 67/48. Patient states that she felt dizzy. Patient will be using the bedside commode from now on as she almost had a syncopal episode. Per COUNSEL patient would not answer her when asking if she needed to sit down and she had a blank stair on her face. Patient came came back around when sitting on the toilet and ambulated back to bed. is aware of this and would like patient to have a set of orthostatics pressures at 1930 to see how they are. We will also check patients blood sugar as she got 40u of lantus and one unit of humalog. Her sugar was 160 before lunch.
--- NOTE | 2021-08-05 17:54 | PC.NURSE ---
Pt arrived to unit by wheelchair at 1450. She is COVID positive, 97% on room air. Previously admitted for DKA. Went to PCP for f/u and bp was trending 70s/50s. Currently her blood pressure is stable. She was given her call light and was instructed to call if she needs to use the restroom. Blood pressure drops upon standing or sitting and requires assistance to bedside commode. Bed placed in low position with bed alarm on. NS is running at 150 ml/hr from the midline in her right upper arm.
[2021-08-05 18:51] LABS: Hemoglobin A1C% w Est Avg Glu 10.4 % (4.0-6.0)
[2021-08-06] VITALS: BP 88/49; PULSE 78; RESP 20; TEMP 36.7; O2SAT 95
[2021-08-06] MEDS: SODIUM CHLORIDE 0.9% 1,000 ML 125 ML IV ×3 (02:02→22:50)
[2021-08-06] MEDS: ACETAMINOPHEN 325 MG TABLET 975 MG PO (06:54)
[2021-08-06 08:00] VITALS: BP 99/59; PULSE 93; RESP 20; TEMP 35.9; O2SAT 93
[2021-08-06] MEDS: GABAPENTIN 600 MG TABLET 900 MG PO ×3 (08:12→21:15)
[2021-08-06] MEDS: ENOXAPARIN 40 MG/0.4 ML SYRINGE SUBCUT (08:12)
[2021-08-06] MEDS: BUSPIRONE 5 MG TABLET 20 MG PO ×3 (08:12→21:15)
[2021-08-06] MEDS: DULOXETINE 30 MG CAPSULE 60 MG PO (08:12)
--- NOTE | 2021-08-06 10:24 | DIET.PN1 ---
Dietary Progress Note Assessment: 46y F admitted with covid19+ status and low BP screened by RD as covid+ with low BMI (19.6). Pt recently hospitalized for DKA, current A1c 10.4 (H). Pt reports long covid symptoms with loss of sense of smell and taste compromising PO intake and nutrition status. Pt has wound on shoulder from heating pad which may need I&D by surgery. Nutrition not in room to visually assess patient secondary to isolation precautions, but hospitalist and nursing state pt appears malnourished. Ht: 157.48 cm Wt: 48.534 kg BMI: 19.5 Last BM: 08/04/21 (08/05/21 15:05) MNA: Jag Score: 22 Diet: 08/05/21 Dinner Carbohydrate Consistent Diet Diet Modifications: glucerna bid, Nilson slushie once Carbohydrate level: Large (4 CHO) Bedtime snack: Yes Heart Healthy Diet Diet Modifications: Labs: RBC 3.99 X10^6/uL (4.0-5.2) L 08/05/21 11:00 Hgb 11.8 g/dL (12.0-16.0) L 08/05/21 11:00 Hct 36.4 % (36-46) 08/05/21 11:00 Creatinine 0.58 mg/dL (0.52-1.04) 08/05/21 11:00 Hemoglobin A1c 10.4 % (4.0-6.0) H 08/05/21 11:00 Lactate 1.3 mmol/L (0.7-2.1) 08/05/21 11:00 Nutrition Diagnosis: Severe Acute Protein Calorie Malnutrition r/t long covid, poorly managed DMT1 aeb A1c 10.4, unhealing wounds, BMI 19.6, pt with no sense of taste or smell meeting <50% EER for 2w. Interventions: 1. Recc ONS Glucera bid to support nutrition status. To support unhealing wounds in this DM patient, sending ONS Nilson slushy once daily with dinner. EER: 1440kcals (30kcal/kg per PCM), 62g PRO (1.3g/kg per PCM) Monitoring/Evaluations: POs, ONS tolerance Electronically Signed by: Viviana Graves 08/06/21 10:24 Clinical Dietitian [address] [address]
--- NOTE | 2021-08-06 12:41 | OT.IPNOTE ---
Per Hospitalist okay to discharge OT eval order at this time as not needed for pt at this time.
--- NOTE | 2021-08-06 12:58 | PC.NURSE ---
Addendum entered by Brenda Torres R.N. 08/06/21 18:47: into see patient and lanced her abcess. Culture sent and dressed abcess. Addendum entered by Brenda Torres R.N. 08/06/21 16:30: Patient given 4mg of iv morphine and this seems to have helped her. Her blood sugar is 142, she would like to skip her humolog dose of 1u and only take half of her 40u of lantus as she has not been eating well today. She states that she had a small emesis, will see patient in a bit for her insulin. Addendum entered by Brenda Torres R.N. 08/06/21 14:31: 1430- Patient asking for something for loose stool x2, if this continues will talk to to see if he wants to order something for her. She is resting comfortably. Addendum entered by Brenda Torres R.N. 08/06/21 13:40: Patients orthostatic blood pressures are as follows : Laying 83/50, 103, standing 68/46, 108, flat 81/51, 101. Dr. Angel is aware and has no new orders at this time. Addendum entered by Brenda Torres R.N. 08/06/21 13:00: Patients blood sugar 73 at lunch time. She was given more orange juice and is tolerating her lunch. She denies pain and is watching television. has ordered a surgical consult for her back wound. Original Note: 0730- Patients blood sugar this morning 74, given orange juice and helpful. Patient ate some breakfast and was given all of her medication. Orthostatic blood pressures will be done this shift. Patient has an area on her right mid side of rib cage that is swollen and oozing pus. is going to look at this when he does his rounds on patient. She voices no complaints of pain at this time.
--- NOTE | 2021-08-06 13:32 | PT-IP ANOTE ---
Talked with nurse/NAC and pt continues to have low BP and has orthostatic hypotension. BP in supine: 88/49 and in standing: systeolic to 77. pt is not medically stable to do PT at this time. talked with Dr. Angel and agreed to d/c PT eval at this time and will re order if pt is more medically stable. will d/c PT eval order.
[2021-08-06 14:16] VITALS: BP 68/46; BP 73/45; BP 83/50; PULSE 103; PULSE 118; PULSE 46
--- NOTE | 2021-08-06 14:45 | CM.IDA ---
Initial DCP Assessment Note Pt is a 46 yo female, resident of [place], presents w/low BP and known COVID-19+, admitted inpatient for management of COVID-19 pneumonia. 46yo female with a hx of insulin-dependent DM II, diabetic neuropathy, fibromyalgia and anxiety/depression that presents with general fatigue, body aches, and decreased appetite. PCP: Jhonny Evans Payer: [facility] Reviewed chart, placed call into patient's room, introduced role. Patient sounds fatigued. Patient confirms she has been living w/6 family members, which she reports are supportive. Patient is currently unemployed. Patient expects to return home w/family assist upon DC. Most of patient's household is currently COVID-19+ According to RN Brenda, patient has an abscess on her back that may need to be drained; patient said she received the initial injury from a heating pad. Dietary consult pending. Patient will be encouraged to f/u outpatient for diabetic education/counseling Plan: Anticipate DC home upon medical clearance, family member to transport TREA Gonzales Discharge Planning/Care Management CM Discharge Assessment Start: 08/06/21 14:05 Freq: Status: Active Protocol: Document 08/06/21 14:06 BRANDAN (Rec: 08/06/21 14:45 BRANDAN [id number]) Discharge Planning Assessment Assigned [employer] TERA Barajas DPOA/Assigned Designee Name Katerina Ashford (relation?) Contact Information [phone], cell Advance Directives? No Advance Directives on File No History Provided By Patient,Medical Record Prior Living Arrangements House Household Members family Type of transporation used prior to Drives own vehicle admit Comment Currently unemployed Independent with ADL's Yes Is patient alert and oriented? Yes Comment Medical plan of care unfolding Discharge Plan Home Transportation Arrangement Family Referrals Initiated Other Additional Comment COVID + current plan is for patient to d/c home.
[2021-08-06] MEDS: MORPHINE 4 MG/ML INJ IV (15:07)
--- NOTE | 2021-08-06 15:34 | PM.PN.1 ---
Subjective Subjective Interval history: Patient reports good PO intake. However, she noticed an abscess on the right side of her back yesterday that started oozing pus. She denies noticing it before and only noticed it because she was scratching there last night. She denies fever/chills. Exam Vital Signs (past 8 hours): - 08/06/21 08:00 08/06/21 14:16 Temperature 96.6 F L Pulse Rate 93 H Pulse Rate [Orthostatic Lying] 118 H Pulse Rate [Orthostatic Sitting] 103 H Pulse Rate [Orthostatic Standing] 46 L Respiratory Rate 20 Blood Pressure 99/59 L Blood Pressure [Orthostatic Lying] 73/45 L Blood Pressure [Orthostatic Sitting] 83/50 L Blood Pressure [Orthostatic Standing] 68/46 L Pulse Oximetry 93 Oxygen Delivery Method Room Air Oxygen Flow Rate 0 Narrative Exam Narrative: Const Other: Patient is laying in bed comfortably upon my entering the room, watching TV, and in no apparent acute distress. Eyes Other: No scleral icterus appreciated. Resp Other: Poor air exchange diffusely, although inspiratory effort poor. No wheezing appreciated. Cardio Other: Regular rate and rhythm. S1 and S2 heart sounds auscultated. No extra heart sounds or murmurs appreciated. No peripheral edema noted. Skin Other: No skin turgor appreciated. Large carbuncle appreciated to the right side of the back, approximately 2 inches by 4 inches. There is no surrounding cellulitis. It is fluctuant and non-indurated. There is a small amount of yellow purulence at the punctum. Extrem Other: Palpable and equal bilateral radial and dorsalis pedis pulses. Objective Labs Result Diagrams: 08/05/21 11:00 08/05/21 11:00 Labs: Laboratory Results - last 24 hr 08/05/21 11:00 Hemoglobin A1c 10.4 H [facility] Medical History Alcohol intoxication Closed hip fracture COVID DKA (diabetic ketoacidoses) DKA (diabetic ketoacidosis) Fibromyalgia Gastroesophageal reflux disease Insulin dependent diabetes mellitus Lupus Osteoporosis Surgical History No pertinent past surgical history Family History Mother Diabetes mellitus Congestive heart failure Pancreatic cancer Father Diabetes mellitus Brother Diabetes mellitus Pancreatitis Sister Drug overdose Social History household members: family Smoking Status: Current every day smoker alcohol intake: never Assessment & Plan Assessment & Plan narrative: Assessment: 1. Carbuncle to the right side of the back 2. Likely long COVID-19 syndrome 3. COVID-19 pneumonia 4. Insulin-dependent DM II 5. Diabetic neuropathy 6. Hx of depression 7. Hx of fibromyalgia 8. Hx of anxiety Plan: 1. Approximately 2 inches by 4 inches in size. There is no surrounding cellulitis. Fluctuant, and non-indurated. Appreciate general surgery recommendations regarding possible incision and drainage. 2. Patient is not requiring any supplemental oxygen, and respiratory status stable for now. 3. Patient is not requiring any supplemental oxygen, and respiratory status stable for now. 4. A1c 10%. Will continue home Lantus 40 units nightly. Insulin sliding scale. 5. Will resume home gabapentin 600 mg tid. 6. Will resume home duloxetine 60 mg daily, which is likely helping with problems 4 and 6, too. 7. Will resume home duloxetine 60 mg daily. 8. Will resume home buspirone 2 mg tid. VTE prophylaxis: Lovenox 40 mg daily Disposition: PT/OT, likely home once clinically stable Time Spent With Patient Critical Care time: I spent a total of [] minutes of critical care time on this patient's care today; this time is exclusive of procedural time.
[2021-08-06 16:00] VITALS: BP 105/70; PULSE 118; RESP 16; TEMP 35.7; O2SAT 94
[2021-08-06 19:00] VITALS: O2SAT 97
[2021-08-06 19:30] VITALS: BP 93/58; PULSE 63; RESP 20; TEMP 36.8; O2SAT 97
--- NOTE | 2021-08-06 19:43 | PM.CN ---
History of Present Illness Consult details Date Patient Seen: 08/06/21 Time Patient Seen: 18:30 Chief complaint: Low BP,COVID + Reason for consult: Back abscess Narrative: The patient is a woman who has COVID and was a defer treatment. She really having respiratory symptoms. She fell asleep on a heating pad and there was apparently a small metal part of that bag that burnt her skin on her back. His developed a darkened area of the skin and is draining pus from the center. I was asked to see her. She is a diabetic. Meds Home Medications and Allergies Home Medications Medication Instructions Recorded Confirmed Type insulin aspart U-100 100 unit/mL 0 unit (0 mL) SUB-Q AC #3 unit 02/12/18 08/05/21 Rx (3 mL) subcutaneous pen (Novolog Flexpen U-100 Insulin aspart) buspirone 10 mg tablet 2 tab PO TID 12/08/18 08/05/21 History cyclobenzaprine 10 mg tablet 10 mg PO TID PRN 12/08/18 08/05/21 History duloxetine 60 mg capsule,delayed 60 mg PO DAILY 12/08/18 08/05/21 History release gabapentin 600 mg tablet 1.5 tab PO TID 12/08/18 08/05/21 History acetaminophen 325 mg tablet 975 mg PO TID PRN #30 tab 12/12/18 08/05/21 Rx ibuprofen 600 mg tablet 600 mg PO Q6H PRN #30 tab 03/21/20 08/05/21 Rx insulin glargine 100 unit/mL (3 40 unit SUBCUT QPM 07/26/21 08/05/21 History mL) subcutaneous pen Allergies Allergy/AdvReac Type Severity Reaction Status Date / Time amitriptyline Allergy Intermediate Verified 08/05/21 11:25 sulfasalazine [SULFASALAZINE] Allergy Mild PANCREATITI Verified 08/05/21 11:25 S trazodone AdvReac Intermediate HEART Verified 08/05/21 11:25 PALPITATIONS Review of Systems Review of Systems Narrative: No chest pain at this time though she does have a history of cardiac issues. Not coughing at this time. Exam Vital Signs (past 8 hours): - 08/06/21 14:16 08/06/21 16:00 Temperature 96.3 F L Pulse Rate 118 H Pulse Rate [Orthostatic Lying] 118 H Pulse Rate [Orthostatic Sitting] 103 H Pulse Rate [Orthostatic Standing] 46 L Respiratory Rate 16 Blood Pressure 105/70 Blood Pressure [Orthostatic Lying] 73/45 L Blood Pressure [Orthostatic Sitting] 83/50 L Blood Pressure [Orthostatic Standing] 68/46 L Pulse Oximetry 94 Oxygen Delivery Method Room Air Oxygen Flow Rate 0 Narrative Exam Narrative: Cooperative woman. Appears somewhat weak. Able to roll from side to side without difficulty. Right back midway between the scapula tip and the pelvis there is a darkened area of skin measuring about 7-8 cm in maximal with an about 4 cm wide. In the center of this discoloration there is a small open area draining pus. Objective Labs Result Diagrams: 08/05/21 11:00 08/05/21 11:00 [facility] Medical History Alcohol intoxication Closed hip fracture COVID DKA (diabetic ketoacidoses) DKA (diabetic ketoacidosis) Fibromyalgia Gastroesophageal reflux disease Insulin dependent diabetes mellitus Lupus Osteoporosis Surgical History No pertinent past surgical history Family History Mother Diabetes mellitus Congestive heart failure Pancreatic cancer Father Diabetes mellitus Brother Diabetes mellitus Pancreatitis Sister Drug overdose Social History household members: family Tobacco & Substance Use Smoking Status: Current every day smoker alcohol intake: never Assessment & Plan Assessment and plan (1) Back abscess: Status: Acute Assessment & Plan narrative: Patient with a discrete back abscess draining pus. It needs to be opened widely and drained. Patient is amenable to same. The area was prepped with chlorhexidine alcohol. Local anesthetic was infiltrated overlying this abscess with 1% lidocaine without epinephrine. A total of 6 cc was used. The small draining site in the center was more widely opened using a scalpel. Using forceps and scissors I cut away muscle fascia which was under this viable appearing skin. This encompassed an area about 4 x 2 cm. Cultures were taken as well. The wound was irrigated with lidocaine 1% solution and then packed with dry gauze. A dressing was applied. Patient tolerated the procedure well. Time Spent With Patient Critical Care time: I spent a total of [] minutes of critical care time on this patient's care today; this time is exclusive of procedural time.
[2021-08-07] VITALS (7 sets, daily range): BP systolic 93–98; BP diastolic 55–62; PULSE 88–105; RESP 16–18; TEMP 36.1–36.6; O2SAT 90–94
--- NOTE | 2021-08-07 01:48 | PC.NURSE ---
Addendum entered by Mitzi Feng R.N. 08/07/21 06:25: Dr. Tabares notified of lab results. Addendum entered by Mitzi Feng R.N. 08/07/21 06:08: Amandeep called at 0607 with results of patient being C-Diff Positive. Will notify charge and provider Addendum entered by Mitzi Feng R.N. 08/07/21 04:35: Dr. Tabares notified at 0430 for BM x 8 this shift with increasing worse smell and increasing characteristics of C-Diff. Telephone orders given for orders to be placed for C-Diff sample. Addendum entered by Mitzi Feng R.N. 08/07/21 02:38: weigh machine operator notified of BM's loose x6 this shift so far. Charge agreed with this RN that provider can be notified later in shift d/t patient receiving fluids of NS @ 125mL/hr. Will monitor and notify as needed. Addendum entered by Mitzi Feng R.N. 08/07/21 02:31: Correction to previous note, patient states she does have pain and tenderness in abdomen but has been occurring prior to loose stools. Original Note: Patient has had 4 loose stools so far this shift. Patient denies any pain or tenderness in abdomen. Will continue to monitor and notify provider as needed.
[2021-08-07 06:08] LABS: Clostridium Difficile Tox PCR Positive for C. diff (Negative)
[2021-08-07] MEDS: SODIUM CHLORIDE 0.9% 1,000 ML 125 ML IV (06:34)
[2021-08-07] MEDS: VANCOMYCIN 125 MG CAPSULE PO ×2 (06:34→13:35)
[2021-08-07] MEDS: BUSPIRONE 5 MG TABLET 20 MG PO ×3 (08:42→21:36)
[2021-08-07] MEDS: DULOXETINE 30 MG CAPSULE 60 MG PO (08:43)
[2021-08-07] MEDS: GABAPENTIN 600 MG TABLET 900 MG PO ×3 (08:43→21:36)
[2021-08-07] MEDS: ENOXAPARIN 40 MG/0.4 ML SYRINGE SUBCUT (08:43)
[2021-08-07] MEDS: INSULIN LISPRO 100 UNIT/ML 3ML VIAL SUBCUT (08:45)
[2021-08-07] MEDS: ACETAMINOPHEN 325 MG TABLET 975 MG PO (08:58)
[2021-08-07 11:06] LABS: Hematocrit 26.1 % (36-46); Hemoglobin 8.4 g/dL (12.0-16.0); Mean Corpuscular HGB Conc 32.4 % (30-36); Mean Corpuscular Hemoglobin 29.2 PG (26-34); Mean Corpuscular Volume 90.3 fL (80-100); Platelet Count 394 X10^3/uL (150-400); Red Blood Cell Count 2.89 X10^6/uL (4.0-5.2); Red Cell Distribution Width 19.6 % (11.6-14.8)
[2021-08-07 11:10] LABS: Add Manual Diff / Slide Review YES; White Blood Cell Count 31.6 X10^3/uL (4.5-11.0)
--- NOTE | 2021-08-07 11:18 | DI.RAD.S_ITS ---
PROCEDURE: XR ABDOMEN 1V INDICATIONS: r/o perforation TECHNIQUE: One view of the abdomen acquired. COMPARISON: [facility], CR, XR CHEST 1V, 08/05/2021, 11:42. [facility], CR, ABDOMEN 2 VIEW, 12/02/2007, 17:53. [facility], CR, ABDOMEN 2 VIEW, 06/04/2007, 16:28. FINDINGS: Surgical changes and devices: None. Bowel: Scattered small bowel and colonic gas. No dilated loops of bowel seen. Soft tissues: No suspicious abdominal calcifications. Visualized solid organ contours appear normal in size. Bibasilar airspace opacity. Bones: No suspicious bony lesions. Right dynamic hip screw. IMPRESSION: Nonobstructive bowel gas pattern. No free air is identified. Bibasilar airspace opacity. Consider CT abdomen pelvis IV contrast for further evaluation if clinically indicated. Dictated by: Kenji Thompson M.D. on 08/07/2021 at 12:04 Approved by: Kenji Thompson M.D. on 08/07/2021 at 12:06
[2021-08-07 11:58] LABS: Neutrophils Absolute Manual 29704 /uL (3000-5900); Total Cells Counted 100
[2021-08-07 12:00] LABS: Acanthocytes 1+; Calcium 6.7 mg/dL (8.4-10.2); Carbon Dioxide 17 mmol/L (22-32); Chloride 114 mmol/L (98-107); Estimated Glomerular Filt Rate > 60.0 mL/min (>60); Glucose 110 mg/dL (70-100); HEMOLYSIS < 15 (0-50); Sodium 138 mmol/L (137-145)
[2021-08-07 12:01] LABS: BUN Creatinine Ratio 4.8 (6-22); Blood Urea Nitrogen < 2 mg/dL (7-17)
[2021-08-07] MEDS: MORPHINE 4 MG/ML INJ IV ×2 (12:01→21:58)
[2021-08-07 12:02] LABS: Potassium 2.4 mmol/L (3.4-5.1)
[2021-08-07] MEDS: metroNIDAZOLE 500 MG/100 ML PIGGYBACK 100 MG IV ×2 (12:04→20:01)
[2021-08-07] MEDS: LACTATED RINGERS 1,000 ML 125 ML IV ×2 (12:23→20:02)
[2021-08-07] MEDS: POTASSIUM CHLORIDE 20 MEQ TAB 40 MEQ PO ×3 (12:23→21:37)
[2021-08-07 13:06] LABS: Lactate (Lactic Acid) 0.7 mmol/L (0.7-2.1)
--- NOTE | 2021-08-07 13:06 | PC.NURSE ---
1200- Patients potassium down to 2.4, 40meq tid x1 to be given. First dose tolerated well. Patients wbc 31.6, Dr Angel is aware and ordered flagyl for patient and a abdomen 1 view portable xray, which has been done. Blood Cultures and Lacate also obtained. Patient has been having frequent bowel movements, she is c.diff positive. Patient is taking po vancomycin. Tolerating well, blood pressures are a bit better, still soft. Resting now and eating lunch. Patient blood sugar in the 90s and o insulin given.
--- NOTE | 2021-08-07 13:16 | DIET.PN1 ---
Dietary Progress Note Assessment: Assessment completed via phone r/t Covid+ status. Valerie reports h/o DM for 14 years, dx in 2006. Denies ever using CGM or insulin pump. States she sometimes gets sick of injections and will skip insulin. Additionally, reports not covering meals with insulin, only correction SSI and Lantus HS. Has provider at [facility] managing her DM and trying to get her a pump. Has not seen DM ed since original dx. Reports everything tastes awful. Drinking glucerna per her report. Not receiving Nilson slushy per her report. Will contact kitchen to confirm order. Ht: 157.48 cm Wt: 48.534 kg BMI: 19.5 Last BM: 08/07/21 (08/07/21 12:00) MNA: Jag Score: 16 Diet: 08/05/21 Dinner Carbohydrate Consistent Diet Diet Modifications: glucerna bid, Nilson slushie once Carbohydrate level: Large (4 CHO) Bedtime snack: Yes Heart Healthy Diet Diet Modifications: Nutrition Percent Meal Consumed 50% 08/07/21 11:05 Percent Meal Consumed 0% 08/06/21 19:30 Percent Meal Consumed 25% 08/06/21 16:31 Labs: RBC 2.89 X10^6/uL (4.0-5.2) L 08/07/21 10:05 Hgb 8.4 g/dL (12.0-16.0) L 08/07/21 10:05 Hct 26.1 % (36-46) L 08/07/21 10:05 Creatinine 0.42 mg/dL (0.52-1.04) L 08/07/21 10:05 Hemoglobin A1c 10.4 % (4.0-6.0) H 08/05/21 11:00 Lactate 0.7 mmol/L (0.7-2.1) 08/07/21 12:40 Nutrition Diagnosis: Severe Acute Protein Calorie Malnutrition r/t long covid, poorly managed DMT1 aeb A1c 10.4, unhealing wounds, BMI 19.6, pt with no sense of taste or smell meeting <50% EER for 2w. Interventions: 1. Recc ONS Glucera bid to support nutrition status. To support unhealing wounds in this DM patient, sending ONS Nilson slushy once daily with dinner. 2. Provide DM ed OP contact information 3. Education on function of CGM vs insulin pump EER: 1440kcals (30kcal/kg per PCM), 62g PRO (1.3g/kg per PCM) Monitoring/Evaluations: POs, ONS tolerance Electronically Signed by: Liliana De La Torre 08/07/21 13:16 Clinical Dietitian, [address] [id number]
[2021-08-07] MEDS: CALCIUM GLUCONATE 9.3 MEQ in SODIUM CHLORIDE 0.9% 100 ML 60 ML IV (17:07)
--- NOTE | 2021-08-07 17:27 | PC.NURSE ---
1728 Pt's dressing removed from abscess on right mid back. Packing removed, new dressing applied with wet 4x4. Covered with cover site.
--- NOTE | 2021-08-07 20:44 | PM.PN.1 ---
Subjective Subjective Interval history: Patient endorses multiple bouts of watery diarrhea. She denies abdominal pain at rest. However, she states that it hurts her when she moves sometimes. She reports good PO intake. She denies any urinary issues. Exam Vital Signs (past 8 hours): - 08/07/21 16:53 08/07/21 20:34 Temperature 97.4 F L 97.9 F Pulse Rate 100 H 105 H Respiratory Rate 16 16 Blood Pressure 98/62 98/55 L Pulse Oximetry 91 93 Oxygen Delivery Method Room Air Oxygen Flow Rate 0 Narrative Exam Narrative: Const Other: Patient is laying in bed comfortably upon my entering the room, eating breakfast, and in no apparent acute distress. Eyes Other: No scleral icterus appreciated. Resp Other: Poor air exchange diffusely, although inspiratory effort poor. No wheezing appreciated. Cardio Other: Regular rate and rhythm. S1 and S2 heart sounds auscultated. No extra heart sounds or murmurs appreciated. No peripheral edema noted. GI: Soft, non-distended, slight tenderness to palpation over the umbilicus area. Bowel sounds present. Skin Other: No skin turgor appreciated. Large bandage without evidence of bleeding or purulence over the right posterior back incision and drainage site of the former abscess. Extrem Other: Palpable and equal bilateral radial and dorsalis pedis pulses. Objective Labs Result Diagrams: 08/07/21 10:05 08/07/21 10:05 Labs: Laboratory Results - last 24 hr 08/07/21 08/07/21 08/07/21 03:30 10:05 10:05 WBC 31.6 H* D RBC 2.89 L Hgb 8.4 L Hct 26.1 L MCV 90.3 MCH 29.2 MCHC 32.4 RDW 19.6 H Plt Count 394 Neut % (Auto) Not Reportable Lymph % (Auto) Not Reportable [place] % (Auto) Not Reportable Eos % (Auto) Not Reportable Baso % (Auto) Not Reportable Lymph # (Auto) Not Reportable [place] # (Auto) Not Reportable Baso # (Auto) Not Reportable Total Counted 100 Seg Neutrophils % 93.0 H Band Neutrophils % 1.0 L Lymphocytes % (Manual) 1.0 L Monocytes % (Manual) 5.0 Neutrophils # (Manual) 13645 H RBC Morphology See below Acanthocytes (Spur) 1+ H Sodium 138 Potassium 2.4 L* Chloride 114 H Carbon Dioxide 17 L BUN < 2 L Creatinine 0.42 L Estimated GFR > 60.0 BUN/Creatinine Ratio 4.8 L Glucose 110 H Lactate Calcium 6.7 L C. difficile Tox (PCR) Positive for c. diff H 08/07/21 12:40 WBC RBC Hgb Hct MCV MCH MCHC RDW Plt Count Neut % (Auto) Lymph % (Auto) [place] % (Auto) Eos % (Auto) Baso % (Auto) Lymph # (Auto) [place] # (Auto) Baso # (Auto) Total Counted Seg Neutrophils % Band Neutrophils % Lymphocytes % (Manual) Monocytes % (Manual) Neutrophils # (Manual) RBC Morphology Acanthocytes (Spur) Sodium Potassium Chloride Carbon Dioxide BUN Creatinine Estimated GFR BUN/Creatinine Ratio Glucose Lactate 0.7 Calcium C. difficile Tox (PCR) [facility] Medical History Alcohol intoxication Closed hip fracture COVID DKA (diabetic ketoacidoses) DKA (diabetic ketoacidosis) Fibromyalgia Gastroesophageal reflux disease Insulin dependent diabetes mellitus Lupus Osteoporosis Surgical History No pertinent past surgical history Family History Mother Diabetes mellitus Congestive heart failure Pancreatic cancer Father Diabetes mellitus Brother Diabetes mellitus Pancreatitis Sister Drug overdose Social History household members: family Smoking Status: Current every day smoker alcohol intake: never Assessment & Plan Assessment & Plan narrative: Assessment: 1. Severe C. diff colitis 2. Carbuncle to the right side of the back, status post incision and drainage here 3. 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 COVID-19 pneumonia 5. Insulin-dependent DM II 6. Diabetic neuropathy 7. Hx of depression 8. Hx of fibromyalgia 9. Hx of anxiety Plan: 1. Given degree of leukocytosis, will start fidaxomicin 200 mg bid for 10 days. Clinical exam and abd X-ray shows no evidence of toxic megacolon or perforation. 1. Approximately 2 inches by 4 inches in size. There is no surrounding cellulitis. Appreciate general surgery's incision and drainage. 2. Patient is not requiring any supplemental oxygen, and respiratory status stable for now. 3. Patient is not requiring any supplemental oxygen, and respiratory status stable for now. 4. A1c 10%. Will continue home Lantus 40 units nightly. Insulin sliding scale. 5. Will resume home gabapentin 600 mg tid. 6. Will resume home duloxetine 60 mg daily, which is likely helping with problems 4 and 6, too. 7. Will resume home duloxetine 60 mg daily. 8. Will resume home buspirone 2 mg tid. VTE prophylaxis: Lovenox 40 mg daily Disposition: PT/OT, likely home once clinically stable Time Spent With Patient Critical Care time: I spent a total of [] minutes of critical care time on this patient's care today; this time is exclusive of procedural time.
[2021-08-07] MEDS: FIDAXOMICIN 200 MG TABLET PO (21:44)
--- NOTE | 2021-08-08 00:55 | PC.NURSE ---
Patient knocked over bedside table at 0045, this RN ran into the room and noticed the patient was laying in bed with her upper half hanging over, bedside table was on its side on the floor and all of the contents on the table including, IS, water cup, tissue box, inpatient packet, room telephone, and patients tablet. When this RN picked up the tablet, the screen was on but it appeared to be broken with lines across it and greyed out areas. Patient was aware of the tablets condition.
[2021-08-08 02:21] VITALS: BP 111/73; PULSE 107; RESP 18; TEMP 36.7; O2SAT 92
[2021-08-08 08:00] VITALS: O2SAT 94
[2021-08-08 08:40] VITALS: BP 91/60; PULSE 108; RESP 16; TEMP 36.5; O2SAT 91
[2021-08-08] MEDS: ENOXAPARIN 40 MG/0.4 ML SYRINGE SUBCUT (08:47)
[2021-08-08] MEDS: BUSPIRONE 5 MG TABLET 20 MG PO ×3 (08:48→20:02)
[2021-08-08] MEDS: GABAPENTIN 600 MG TABLET 900 MG PO ×3 (08:48→20:03)
[2021-08-08] MEDS: DULOXETINE 30 MG CAPSULE 60 MG PO (08:48)
[2021-08-08] MEDS: ONDANSETRON 4 MG/2 ML INJ IV (08:48)
[2021-08-08] MEDS: FIDAXOMICIN 200 MG TABLET PO ×2 (08:53→20:04)
[2021-08-08 09:16] LABS: Hematocrit 30.8 % (36-46); Hemoglobin 9.9 g/dL (12.0-16.0); Mean Corpuscular Volume 90.7 fL (80-100); Platelet Count 465 X10^3/uL (150-400); Red Cell Distribution Width 19.5 % (11.6-14.8)
[2021-08-08 09:26] LABS: Add Manual Diff / Slide Review YES; White Blood Cell Count 38.6 X10^3/uL (4.5-11.0)
[2021-08-08 09:28] LABS: Calcium 7.5 mg/dL (8.4-10.2); Carbon Dioxide 20 mmol/L (22-32); Chloride 111 mmol/L (98-107); Estimated Glomerular Filt Rate > 60.0 mL/min (>60); Glucose 134 mg/dL (70-100); Potassium 4.9 mmol/L (3.4-5.1); Sodium 138 mmol/L (137-145)
[2021-08-08 09:33] LABS: BUN Creatinine Ratio 4.9 (6-22); Blood Urea Nitrogen 2 mg/dL (7-17); HEMOLYSIS 73 (0-50)
[2021-08-08 09:37] LABS: Anisocytosis 2+; Neutrophils Absolute Manual 36284 /uL (3000-5900); Poikilocytosis 1+; Total Cells Counted 100
[2021-08-08] MEDS: MORPHINE 4 MG/ML INJ IV ×2 (11:25→20:27)
[2021-08-08 11:38] VITALS: BP 97/60; PULSE 106; RESP 18; TEMP 36.8; O2SAT 92
[2021-08-08] MEDS: INSULIN LISPRO 100 UNIT/ML 3ML VIAL SUBCUT (11:46)
[2021-08-08] MEDS: LACTATED RINGERS 1,000 ML 125 ML IV ×2 (11:50→20:28)
--- NOTE | 2021-08-08 14:16 | P.PN_ITS ---
Subjective Subjective Date Patient Seen: 08/08/21 Interval history: She is seen in her room today to follow-up her C diff colitis and asymptomatic COVID infection. Her white blood count has risen 31.6 up to 38.6. The hemoglobin is stable. The potassium has risen from 2.4 up to 4.5 after 120 mEq of potassium was given spaced out over the last 24 hours. Her vital signs are stable except for heart rate of 107. The skin infection on her back is still draining slightly but does not appear acute. Her abdomen is tender in the left upper quadrant but there is no guarding. Left left lower lung crackles are heard. Exam Vital Signs (past 8 hours): - 08/08/21 08:00 08/08/21 08:40 08/08/21 11:38 Temperature 97.7 F 98.2 F Pulse Rate 108 H 106 H Respiratory Rate 16 18 Blood Pressure 91/60 97/60 Pulse Oximetry 94 91 92 Oxygen Delivery Method Nasal Cannula Oxygen Flow Rate 0 Narrative Exam Narrative: She is alert and oriented x3. She appears to be in moderate distress from ongoing weakness and abdominal pain. She is discussed with general surgery Heart is regular rate and rhythm without murmur Lungs are clear on the right and have crackles at the left base. Abdomen is soft, bowel sounds positive, no organomegaly, there is mild left upp er quadrant tenderness without guarding. The right upper back skin infection draining site appears to be intact without signs of acute infection. It looks like it is healing slowly. Objective Labs Result Diagrams: 08/08/21 08:50 08/08/21 08:50 Labs: Laboratory Results - last 24 hr 08/08/21 08/08/21 08:50 08:50 WBC 38.6 H* RBC 3.40 L Hgb 9.9 L Hct 30.8 L MCV 90.7 MCH 29.0 MCHC 32.0 RDW 19.5 H Plt Count 465 H Neut % (Auto) Not Reportable Lymph % (Auto) Not Reportable [place] % (Auto) Not Reportable Eos % (Auto) Not Reportable Baso % (Auto) Not Reportable Lymph # (Auto) Not Reportable [place] # (Auto) Not Reportable Baso # (Auto) Not Reportable Total Counted 100 Seg Neutrophils % 91.0 H Band Neutrophils % 3.0 Lymphocytes % (Manual) 2.0 L Atypical Lymphs % 1.0 H Monocytes % (Manual) 3.0 Neutrophils # (Manual) 20176 H RBC Morphology Not Reportable Poikilocytosis 1+ H Anisocytosis 2+ H Sodium 138 Potassium 4.9 D Chloride 111 H Carbon Dioxide 20 L BUN 2 L Creatinine 0.41 L Estimated GFR > 60.0 BUN/Creatinine Ratio 4.9 L Glucose 134 H Calcium 7.5 L PFSH Medical History Alcohol intoxication Closed hip fracture COVID DKA (diabetic ketoacidoses) DKA (diabetic ketoacidosis) Fibromyalgia Gastroesophageal reflux disease Insulin dependent diabetes mellitus Lupus Osteoporosis Surgical History No pertinent past surgical history Family History Mother Diabetes mellitus Congestive heart failure Pancreatic cancer Father Diabetes mellitus Brother Diabetes mellitus Pancreatitis Sister Drug overdose Social History household members: family Smoking Status: Current every day smoker alcohol intake: never Assessment & Plan Assessment & Plan narrative: Assessment: 1. Severe C. diff colitis 2. Carbuncle to the right side of the back, status post incision and drainage here 3. 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 COVID-19 pneumonia 5. Insulin-dependent DM II 6. Diabetic neuropathy 7. Hx of depression 8. Hx of fibromyalgia 9. Hx of anxiety 10. Leukocytosis (38.6 on 08/08) Plan: 1. Continue fidaxomicin 200 mg bid for 9 more days. Clinical exam and abd X-ray shows no evidence of toxic megacolon or perforation. 1. Approximately 2 inches by 4 inches in size. There is no surrounding cellulitis. Appreciate general surgery's incision and drainage. 2. Patient is not requiring any supplemental oxygen, and respiratory status stable for now. 3. Patient is not requiring any supplemental oxygen, and respiratory status stable for now. 4. A1c 10%. Will continue home Lantus 40 units nightly. Insulin sliding scale. 5. home gabapentin 600 mg tid. 6. home duloxetine 60 mg daily, which is likely helping with problems 4 and 6, too. 7. home duloxetine 60 mg daily. 8. home buspirone 2 mg tid. 9. Check CXR on 08/08 and add Pneumonia antibiotic coverage if CXR confirms a new infiltrate (LLL crackles on exam). VTE prophylaxis: Lovenox 40 mg daily Disposition: PT/OT, likely home once clinically stable Time Spent With Patient Critical Care time: I spent a total of [] minutes of critical care time on this patient's care today; this time is exclusive of procedural time.
--- NOTE | 2021-08-08 14:26 | PC.NURSE ---
Pt resting at intervals throughout day. Remains in isolation as per protocal Lungs diminished, SpO2 93% 3L BETTY midline intact, patent. LR infusing @ 125cc/hr via pump w/o incidence. Dsg to right shoulder area changed by MD & CDI. SBA to BSC w/o incidence. Call light w/in reach, bed alarm on for pt safety. Continue w/plan of care.
[2021-08-08 15:11] LABS: C difficie Toxins A and B, EIA Positive (Negative)
--- NOTE | 2021-08-08 19:05 | DI.RAD.S_ITS ---
PROCEDURE: XR CHEST 1V INDICATIONS: Pneumonia TECHNIQUE: One view of the chest was acquired. COMPARISON: [facility], CR, XR CHEST 1V, 08/05/2021, 11:42. FINDINGS: Surgical changes and devices: None. Lungs and pleura: Bilateral patchy airspace opacities are seen, which are greater on the left than on the right, and appear mildly progressed when compared to the radiographs from 08/05/2021. Mediastinum: Mediastinal contours appear normal. Heart size is normal. Bones and chest wall: No suspicious bony lesions. Overlying soft tissues appear unremarkable. IMPRESSION: Mildly worsened diffuse bilateral airspace opacities are suspicious for worsening pneumonia, in a pattern that can be seen with COVID-19 infection. Dictated by: Elliot Schmidt M.D. on 08/08/2021 at 19:24 Approved by: Elliot Schmidt M.D. on 08/08/2021 at 19:25
[2021-08-08] MEDS: CEFEPIME 1 GM in SODIUM CHLORIDE 0.9% 100 ML 200 ML IV (20:03)
[2021-08-08 20:58] VITALS: BP 94/59; PULSE 100; RESP 18; TEMP 36.4; O2SAT 93
[2021-08-08 23:30] VITALS: PULSE 100; RESP 18; O2SAT 93
[2021-08-09] VITALS (7 sets, daily range): BP systolic 85–98; BP diastolic 55–64; PULSE 93–104; RESP 16–18; TEMP 36.4–36.8; O2SAT 88–99
--- NOTE | 2021-08-09 03:36 | PC.NURSE ---
Pt c/o dizziness when up to the bedside comode. b/p 85/55, HR 104, sats 88% on RA, BS 135, pt in no distress, BP taken again once pt was laying in bed 92/52, 2 L NC applied, sats up to 95%.
[2021-08-09] MEDS: LACTATED RINGERS 1,000 ML 125 ML IV ×2 (03:43→19:27)
[2021-08-09 05:09] LABS: Calcium 7.1 mg/dL (8.4-10.2); Carbon Dioxide 27 mmol/L (22-32); Chloride 108 mmol/L (98-107); Estimated Glomerular Filt Rate > 60.0 mL/min (>60); Glucose 111 mg/dL (70-100); HEMOLYSIS < 15 (0-50); Potassium 3.6 mmol/L (3.4-5.1); Sodium 137 mmol/L (137-145)
[2021-08-09 05:10] LABS: Blood Urea Nitrogen 2 mg/dL (7-17)
[2021-08-09 05:15] LABS: Hematocrit 27.3 % (36-46); Hemoglobin 8.8 g/dL (12.0-16.0); Mean Corpuscular HGB Conc 32.1 % (30-36); Mean Corpuscular Hemoglobin 28.9 PG (26-34); Mean Corpuscular Volume 90.3 fL (80-100); Platelet Count 413 X10^3/uL (150-400); Red Blood Cell Count 3.03 X10^6/uL (4.0-5.2); Red Cell Distribution Width 19.3 % (11.6-14.8)
[2021-08-09 05:16] LABS: Add Manual Diff / Slide Review YES
[2021-08-09 05:30] LABS: Procalcitonin 1.13 ng/mL (<0.5)
[2021-08-09] MEDS: CEFEPIME 1 GM in SODIUM CHLORIDE 0.9% 100 ML 200 ML IV (06:38)
[2021-08-09 06:42] LABS: Anisocytosis 2+; Hypochromasia 1+; Neutrophils Absolute Manual 24180 /uL (3000-5900); Total Cells Counted 100
[2021-08-09] MEDS: MORPHINE 4 MG/ML INJ IV ×2 (06:47→15:53)
--- NOTE | 2021-08-09 07:00 | PC.NURSE ---
dressing change to right mid back done, pt has some yellowish drainage
[2021-08-09] MEDS: BUSPIRONE 5 MG TABLET 20 MG PO ×3 (09:24→21:29)
[2021-08-09] MEDS: ENOXAPARIN 40 MG/0.4 ML SYRINGE SUBCUT (09:24)
[2021-08-09] MEDS: DULOXETINE 30 MG CAPSULE 60 MG PO (09:24)
[2021-08-09] MEDS: GABAPENTIN 600 MG TABLET 900 MG PO ×3 (09:24→21:23)
[2021-08-09] MEDS: AZITHROMYCIN 250 MG TABLET 500 MG PO (09:26)
[2021-08-09] MEDS: FIDAXOMICIN 200 MG TABLET PO ×2 (09:28→21:31)
[2021-08-09] MEDS: ONDANSETRON 4 MG/2 ML INJ IV (11:41)
[2021-08-09] MEDS: ACETAMINOPHEN 325 MG TABLET 975 MG PO (12:03)
[2021-08-09] MEDS: INSULIN LISPRO 100 UNIT/ML 3ML VIAL SUBCUT ×2 (12:04→17:42)
[2021-08-09] MEDS: CHOLESTYRAMINE/ASPARTAME 4 GM PACK PO ×2 (15:06→21:23)
--- NOTE | 2021-08-09 15:46 | PC.NURSE ---
Pt more alert today, Spo2 94% 2L Lungs w/faint exp wheeze. CBG AC =131 & 221 S/S given as per orders for later. 1PA to BSC w/o incidence. Continues w/ small loose stools throughtout the day. Med w/ MS for discomfort w/good relief. Call light w/in reach, pt calls apprpriately for needs. Continue w/plan of care.
--- NOTE | 2021-08-09 15:48 | CM.DPNOTE ---
DC Planning continued: CM called patients room and spoke with patient about discharge plan. Patient states she is feeling better but is still having loss stools but is starting to feel a lot better. CM asked patient about DC plan and patient agreed that she plans on DC home with no needs and will have her family providing POV transport home when patient is medically stable. No identified DC planning needs noted at this time. CM department will follow to assist with any new DC planning needs that my arise. Evelyn Mcloed RN Case manger
[2021-08-09] MEDS: INSULIN GLARGINE 100 UNIT/ML 3ML PEN 40 UNIT SUBCUT (17:44)
[2021-08-09] MEDS: ALBUTEROL/IPRATROPIUM 3 ML AMPUL INH (19:24)
--- NOTE | 2021-08-09 19:26 | PM.PN.1 ---
Subjective Subjective Date Patient Seen: 08/09/21 Interval history: REPORTED SIGNIFICANT DIARRHEA. MULTIPLE BOWEL MOVEMENTS THROUGHOUT THE DAY DISCOMFORT AROUND THE RECTAL AREA ALSO REPORTED DUE TO EXCESSIVE BOWEL MOVEMENTS Exam Vital Signs (past 8 hours): - 08/09/21 15:55 Temperature 97.6 F Pulse Rate 102 H Respiratory Rate 16 Blood Pressure 90/58 L Pulse Oximetry 95 Oxygen Delivery Method Nasal Cannula Oxygen Flow Rate 1.5 Narrative Exam Narrative: NO ACUTE DISTRESS. PATIENT IS ALERT ORIENTED X3. VITAL SIGNS STABLE HEAD ATRAUMATIC NORMOCEPHALIC NECK : SUPPLE WITHOUT ADENOPATHY NO CAROTID BRUITS EYE: EOMI, PERRLA, NORMAL CONJUNCTIVA; NO JAUNDICE CHEST: REGULAR RATE. NO RUBS. PMI IS NON DISPLACED. NO MURMURS; NORMAL S1-S2 PULMONARY: DECREASED BS OVER THE BASES. MILD BIBASILAR CRACKLES NOTED; NO INCREASED DULLNESS TO PERCUSSION ABDOMEN: SOFT. NONTENDER. NONDISTENDED. BOWEL SOUNDS ARE PRESENT IN ALL 4 QUADRANTS. NO MASS. EXTREMITIES: NO EDEMA.. NO CYANOSIS CLUBBING NOTED. NEURO: CRANIAL NERVES 2-12 GROSSLY INTACT. NO FOCAL NEUROLOGICAL DEFICIT NOTED. MSK: NORMAL RANGE OF MOTION FOR AGE. NO JOINT EFFUSION. SKIN: NORMAL FOR ETHNICITY; NO ECCHYMOSIS. NO LESION. GOOD TURGOR.; NO RASHES : NORMAL EXTERNAL GENITALIA. PSYCH : APPROPRIATE MOOD AND AFFECT. ALERT AWAKE ORIENTED X3 Objective Labs Result Diagrams: 08/09/21 04:30 08/09/21 04:30 Labs: Laboratory Results - last 24 hr 08/09/21 08/09/21 08/09/21 04:30 04:30 04:30 WBC 26.0 H RBC 3.03 L Hgb 8.8 L Hct 27.3 L MCV 90.3 MCH 28.9 MCHC 32.1 RDW 19.3 H Plt Count 413 H Neut % (Auto) Not Reportable Lymph % (Auto) Not Reportable [place] % (Auto) Not Reportable Eos % (Auto) Not Reportable Baso % (Auto) Not Reportable Lymph # (Auto) Not Reportable [place] # (Auto) Not Reportable Baso # (Auto) Not Reportable Total Counted 100 Seg Neutrophils % 89.0 H Band Neutrophils % 4.0 Lymphocytes % (Manual) 6.0 L Monocytes % (Manual) 1.0 L Neutrophils # (Manual) 85241 H RBC Morphology See below Hypochromasia 1+ H Anisocytosis 2+ H Sodium 137 Potassium 3.6 D Chloride 108 H Carbon Dioxide 27 BUN 2 L Creatinine 0.40 L Estimated GFR > 60.0 BUN/Creatinine Ratio 5.0 L Glucose 111 H Calcium 7.1 L Procalcitonin 1.13 H PFSH Medical History Alcohol intoxication Closed hip fracture COVID DKA (diabetic ketoacidoses) DKA (diabetic ketoacidosis) Fibromyalgia Gastroesophageal reflux disease Insulin dependent diabetes mellitus Lupus Osteoporosis Surgical History No pertinent past surgical history Family History Mother Diabetes mellitus Congestive heart failure Pancreatic cancer Father Diabetes mellitus Brother Diabetes mellitus Pancreatitis Sister Drug overdose Social History household members: family Smoking Status: Current every day smoker alcohol intake: never Assessment & Plan Assessment & Plan narrative: PROBLEM LIST C DIFF COLITIS PHYSICAL DEBILITY DIABETIC TYPE 2 FOR HISTORY DIABETIC NEUROPATHY PLAN FOLLOW LABS DAILY MONITOR INPUT OUTPUT CLOSELY THE PATIENT WILL BE STARTED ON CHOLESTYRAMINE TODAY CONTINUE CURRENT ANTIBIOTICS CONSIDER SWITCH TO ORAL VANCOMYCIN WELL FALL AND ASPIRATION PRECAUTION ALL TIME MOBILIZE PATIENT MUCH RELATED NURSING TO ENCOURAGE PATIENT TO USE INCENTIVE SPIROMETER DEVICE WHILE AWAKE WILL ADD DUONEB TREATMENT DUE TO HISTORY OF COPD DESPITE NO SIGN OF ACUTE EXACERBATION ADDITIONAL MANAGEMENT PER CLINICAL COURSE Time Spent With Patient Critical Care time: I spent a total of [] minutes of critical care time on this patient's care today; this time is exclusive of procedural time.
[2021-08-09] MEDS: DOXYCYCLINE HYCLATE 100 MG TABLET PO (21:23)
[2021-08-10] VITALS (8 sets, daily range): BP systolic 92–94; BP diastolic 58–60; PULSE 101–103; RESP 18–20; TEMP 36–36.7; O2SAT 75–97
[2021-08-10] MEDS: MORPHINE 4 MG/ML INJ IV (00:32)
[2021-08-10] MEDS: LACTATED RINGERS 1,000 ML 125 ML IV ×4 (03:27→21:30)
--- NOTE | 2021-08-10 04:27 | PC.NURSE ---
Pt stool are more form tonight. She is on 1L NC O2, sating in the mid 90's. Tonight pt's blood sugar at HS time was 115. AT 0200 am it went down too 54, pt was asymptomatic. Pt had orange juice with peanut butter and gram crackers. Blood sugar when up to 74. pt had more juice and peanut butter and gram crackers (Hospitalist MILK OF LIME SLAKER Castillo aware). Pt will need an out patient wound consult when discharge.
[2021-08-10 06:40] LABS: Hematocrit 27.8 % (36-46); Mean Corpuscular HGB Conc 32.6 % (30-36); Mean Corpuscular Hemoglobin 29.4 PG (26-34); Mean Corpuscular Volume 90.1 fL (80-100); Platelet Count 435 X10^3/uL (150-400); Red Blood Cell Count 3.08 X10^6/uL (4.0-5.2); Red Cell Distribution Width 19.3 % (11.6-14.8); White Blood Cell Count 15.5 X10^3/uL (4.5-11.0)
[2021-08-10 06:41] LABS: Add Manual Diff / Slide Review YES
[2021-08-10 06:50] LABS: Alanine Aminotransferase 18 IU/L (<35); Albumin Globulin Ratio 0.7 (1.0-2.8); Alkaline Phosphatase 155 U/L (38-126); Aspartate Aminotransferase 46 IU/L (14-36); BUN Creatinine Ratio 11.1 (6-22); Bilirubin Total 0.6 mg/dL (0.2-1.3); Blood Urea Nitrogen 4 mg/dL (7-17); Calcium 7.2 mg/dL (8.4-10.2); Carbon Dioxide 28 mmol/L (22-32); Chloride 105 mmol/L (98-107); Estimated Glomerular Filt Rate > 60.0 mL/min (>60); Globulin 2.8 g/dL (1.7-4.1); Glucose 84 mg/dL (70-100); HEMOLYSIS 33 (0-50); Magnesium 1.3 mg/dL (1.6-2.3); Phosphorous 1.4 mg/dL (2.5-4.5); Potassium 3.5 mmol/L (3.4-5.1); Sodium 136 mmol/L (137-145); Total Protein 4.8 g/dL (6.3-8.2)
[2021-08-10 07:19] LABS: Neutrophils Absolute Manual 12400 /uL (3000-5900); Total Cells Counted 100
[2021-08-10 07:22] LABS: Anisocytosis 2+; Hypochromasia 1+
[2021-08-10 07:24] LABS: Poikilocytosis 1+; Target Cells 1+
[2021-08-10] MEDS: DOXYCYCLINE HYCLATE 100 MG TABLET PO ×2 (08:18→21:30)
[2021-08-10] MEDS: GABAPENTIN 600 MG TABLET 900 MG PO ×3 (08:18→21:31)
[2021-08-10] MEDS: ENOXAPARIN 40 MG/0.4 ML SYRINGE SUBCUT (08:19)
[2021-08-10] MEDS: CHOLESTYRAMINE/ASPARTAME 4 GM PACK PO ×3 (08:19→21:30)
[2021-08-10] MEDS: DULOXETINE 30 MG CAPSULE 60 MG PO (08:19)
[2021-08-10] MEDS: FIDAXOMICIN 200 MG TABLET PO ×2 (08:20→21:30)
[2021-08-10] MEDS: BUSPIRONE 5 MG TABLET 20 MG PO ×3 (08:20→21:30)
[2021-08-10] MEDS: SODIUM,POTASSIUM PHOSPHATES PACKET 2 EACH PO ×3 (11:50→19:58)
[2021-08-10] MEDS: MAGNESIUM CHLORIDE 64 MG TABLET 128 MG PO (11:50)
--- NOTE | 2021-08-10 15:34 | P.PN_ITS ---
Subjective Subjective Date Patient Seen: 08/10/21 Interval history: PATIENT STATED THAT HER DIARRHEA HAD SIGNIFICANTLY IMPROVED SHE DENIES ANY FEVER OR CHILLS OVERNIGHT NO INCREASING SHORTNESS OF BREATH NO SIGNIFICANT ISSUES REPORTED BY NURSING STAFF OVERNIGHT Exam Vital Signs (past 8 hours): - 08/10/21 09:30 08/10/21 09:31 Pulse Oximetry 75 L 91 Oxygen Delivery Method Nasal Cannula Oxygen Flow Rate 4 Narrative Exam Narrative: NO ACUTE DISTRESS. PATIENT IS ALERT ORIENTED X3. APPEARS OLDER THAN STATED AGE VITAL SIGNS STABLE HEAD ATRAUMATIC NORMOCEPHALIC NECK : SUPPLE WITHOUT ADENOPATHY NO CAROTID BRUITS EYE: EOMI, PERRLA, NORMAL CONJUNCTIVA; NO JAUNDICE CHEST: REGULAR RATE. NO RUBS. PMI IS NON DISPLACED. NO MURMURS; NORMAL S1- S2 PULMONARY: DECREASED BS AT THE BASES. MILD BIBASILAR CRACKLES NOTED; NO INCREASED DULLNESS TO PERCUSSION ABDOMEN: SOFT. NONTENDER. NONDISTENDED. HYPERACTIVE BOWEL SOUNDS ARE PRESENT IN ALL 4 QUADRANTS. NO MASS. NO GUARDING. NO REBOUND TENDERNESS EXTREMITIES: NO EDEMA.. NO CYANOSIS CLUBBING NOTED. NEURO: CRANIAL NERVES 2-12 GROSSLY INTACT. NO FOCAL NEUROLOGICAL DEFICIT NOTED. MSK: NORMAL RANGE OF MOTION FOR AGE. NO JOINT EFFUSION. SKIN: NORMAL FOR ETHNICITY; NO ECCHYMOSIS. NO LESION. GOOD TURGOR.; NO RASHES : NORMAL EXTERNAL GENITALIA. PSYCH : APPROPRIATE MOOD AND AFFECT. ALERT AWAKE ORIENTED X3 Objective Labs Result Diagrams: 08/10/21 06:30 08/10/21 06:30 Labs: Laboratory Results - last 24 hr 08/10/21 08/10/21 06:30 06:30 WBC 15.5 H RBC 3.08 L Hgb 9.0 L Hct 27.8 L MCV 90.1 MCH 29.4 MCHC 32.6 RDW 19.3 H Plt Count 435 H Neut % (Auto) Not Reportable Lymph % (Auto) Not Reportable [place] % (Auto) Not Reportable Eos % (Auto) Not Reportable Baso % (Auto) Not Reportable Lymph # (Auto) Not Reportable [place] # (Auto) Not Reportable Baso # (Auto) Not Reportable Total Counted 100 Seg Neutrophils % 77.0 H Band Neutrophils % 3.0 Lymphocytes % (Manual) 10.0 L Atypical Lymphs % 1.0 H Monocytes % (Manual) 6.0 Eosinophils % (Manual) 2.0 Myelocytes % 1.0 H Neutrophils # (Manual) 99751 H RBC Morphology See below Hypochromasia 1+ H Poikilocytosis 1+ H Anisocytosis 2+ H Target Cells 1+ H Sodium 136 L Potassium 3.5 Chloride 105 Carbon Dioxide 28 BUN 4 L Creatinine 0.36 L Estimated GFR > 60.0 BUN/Creatinine Ratio 11.1 Glucose 84 Calcium 7.2 L Phosphorus 1.4 L D Magnesium 1.3 L Total Bilirubin 0.6 AST 46 H ALT 18 Alkaline Phosphatase 155 H Total Protein 4.8 L Albumin 2.0 L Globulin 2.8 Albumin/Globulin Ratio 0.7 L PFSH Medical History Alcohol intoxication Closed hip fracture COVID DKA (diabetic ketoacidoses) DKA (diabetic ketoacidosis) Fibromyalgia Gastroesophageal reflux disease Insulin dependent diabetes mellitus Lupus Osteoporosis Surgical History No pertinent past surgical history Family History Mother Diabetes mellitus Congestive heart failure Pancreatic cancer Father Diabetes mellitus Brother Diabetes mellitus Pancreatitis Sister Drug overdose Social History household members: family Smoking Status: Current every day smoker alcohol intake: never Assessment & Plan Assessment & Plan narrative: ?PROBLEM LIST ?C DIFF COLITIS; ON FIDAXOMICIN COVID 19 PNEUMONIA. NO SIGNS OF RESPIRATORY FAILURE ?PHYSICAL DEBILITY; MULTIFACTORIAL ?DIABETIC TYPE 2 FOR HISTORY. BLOOD SUGAR FURTHER CONTROL ?DIABETIC NEUROPATHY. CONTINUE CURRENT MANAGEMENT HYPOMAGNESEMIA. ON REPLACEMENT PROTOCOL HYPOPHOSPHATEMIA. ON REPLACEMENT PROTOCOL ? PLAN ? PATIENT DIAGNOSIS WITH COVID-19. NO SIGN OF RESPIRATORY FAILURE AT THIS TIME. SYMPTOMATIC MANAGEMENT WITH BREATHING TREATMENT NEEDED ON DOXYCYCLINE AGGRESSIVE PULMONARY TOILETING INDICATED REPEAT CHEST X-RAY TO FOLLOW CLINICALLY INDICATED HER REGARD WITH C DIFF, PATIENT APPEARED TO BE IMPROVING. CONTINUE CURRENT ANTIBIOTICS DIARRHEA HAS IMPROVED OVERNIGHT ON CHOLESTYRAMINE MONITOR CLOSELY FOR NEED OF COMPLICATIONS OF SUCH [place] CONSIDER REPEATING CT SCAN OF THE ABDOMEN IF INDICATED CLINICALLY DAILY LABS TO FOLLOW CONTINUE ISOLATION PROTOCOL PER HOSPITAL POLICY PLAN TO DISCHARGE TO HOME ONCE CLINICALLY STABLE ADDITIONAL MANAGEMENT PER CLINICAL COURSE Time Spent With Patient Critical Care time: I spent a total of [] minutes of critical care time on this patient's care today; this time is exclusive of procedural time.
[2021-08-10] MEDS: MAGNESIUM SULFATE 2 GM/50 ML PIGGYBACK IV (16:50)
[2021-08-10] MEDS: ACETAMINOPHEN 325 MG TABLET 975 MG PO (20:02)
[2021-08-10] MEDS: INSULIN LISPRO 100 UNIT/ML 3ML VIAL SUBCUT (21:28)
--- NOTE | 2021-08-10 21:45 | RT ---
Addendum entered by Sailaja Dillard, RT 08/10/21 21:50: Pt's BS coarse crackles t/o as well. Original Note: Paged by RN. Pt desat into 80s on 6 LPM NC then 10 LPM on HFNC. Placed pt on 15 LPM NRB at 2022. Pt tolerating well. RN aware.
[2021-08-11] VITALS (35 sets, daily range): BP systolic 81–130; BP diastolic 53–88; PULSE 84–102; RESP 18–31; TEMP 36–36.7; O2SAT 88–98
--- NOTE | 2021-08-11 01:00 | DI.RAD.S_ITS ---
PROCEDURE: XR CHEST 1V INDICATIONS: worsening COVID-19 Pneumonia TECHNIQUE: One view of the chest was acquired. COMPARISON: [facility], CR, XR CHEST 1V, 08/08/2021, 19:08. FINDINGS: Surgical changes and devices: None. Lungs and pleura: Increased, severe bilateral pulmonary airspace opacity.. No pleural effusions or pneumothorax. Mediastinum: Mediastinal contours appear normal. Heart size is normal. Bones and chest wall: No suspicious bony lesions. Overlying soft tissues appear unremarkable. IMPRESSION: Severe bilateral pneumonia. Dictated by: Maura Barron M.D. on 08/11/2021 at 1:47 Approved by: Maura Barron M.D. on 08/11/2021 at 1:48
--- NOTE | 2021-08-11 01:01 | PM.EVENT ---
Event Note Date Patient Seen: 08/11/21 Time Patient Seen: 01:26 Event Note: Patient seen and examined. Nursing reported that she was having difficulties breathing and was up to 15L non-rebreather. Ordered ABG, cxr and she was moved to 231 so that they can continously monitor her oxygen saturations. She is apparently unable or unwilling to prone. She arrived at 231 with a non-rebreather mask, alert and oriented, with a clearly depressed affect. I informed her we may need to do high flow humidified O2. She had previously been on high flow and did not do so well. She has a normal pH, ABG pCo2 WAS 41, so not retaining. ABG Saturation is 94% on 15L. Corrected CA was 7.4, mag 1.3 and phos was 1.4. I have repleated mag w/2 grams and calcium with calcium carbonate 600 mg po X 1. CXR shows worsening bilateral cotton ball appearing infiltrate extending to the upper 3/4ths of both lungs, worsening compared to a CXR of 08/08 which only showed consolidations in the lower bases. This was reviewed by the ED physition and Dr. Banda and our conclusion is that this is concerning for ARDS and ED provider is on notice she may need to intubate. Currently she seems to be doing fine on 15L. RT reported she had +1 pitting edema. She does have bilateral rales. Upon exam, she appears to have trace edema in her upper and lower extremities. I have stopped the LR. She was administered Lasix 20 mg and a Valente placed. Continue to follow.
[2021-08-11] MEDS: MAGNESIUM SULFATE 2 GM/50 ML PIGGYBACK IV (01:24)
[2021-08-11 01:35] LABS: Fractionated Inspired Oxygen 100; HCO3 ABG 27 mmol/L (22-26); Oxygen Saturation ABG 94 % (95-100); PCO2 ABG 41.1 mmHg (35-45); PO2 ABG 70 mmHg (80-100); TCO2 ABG 28 mmol/L (21-31); pH ABG 7.42 (7.35-7.45)
--- NOTE | 2021-08-11 01:37 | RT ---
Pt arrived in room 231. Pt is on 15 LPM NRB, SpO2 95%-96%. CXR performed. BS coarse crackles t/o. Pt has +1 pitting edema in LE. ABG performed: pH 7.42, PaCO2 41.1, PaO2 70, HCO3 26.5, BE 2, SaO2 94%. Pt's RR 21-23. Recommending diuretics and continue O2 therapy as needed. If diuretics do not work, then will re-evaluate pt again for HHFNC.
--- NOTE | 2021-08-11 01:43 | PC.NURSE ---
Late entry: Patient on 4L NC, at 2020, patients O2 sat was down in the 80's. O2 was increased to 5L NC then 5L HFNC, O2 was not improving. RT was called to assess patient and placed the pt on 15L non-rebreather and O2 sat increased into mid 90's. At 0015 O2 was at 92% 15L non-rebreather. Around 0100 decreased into the 80's and could not hold above 89%. Provider, ZOFIA Chong was notified as well as the charge nurse and RT. It was discussed and decided that patient be moved to ICU. Report was given to LUTHER Paniagua and pt was transferred.
[2021-08-11] MEDS: CALCIUM CARBONATE 600 MG TABLET PO (01:50)
--- NOTE | 2021-08-11 01:52 | PC.NURSE ---
wright placed by dorian gavin RN
[2021-08-11] MEDS: FUROSEMIDE 20 MG/2 ML VIAL IV (01:56)
[2021-08-11] MEDS: BARICITINIB 2 MG TABLET 4 MG PO ×2 (02:21→11:39)
[2021-08-11] MEDS: VANCOMYCIN 1,250 MG/250 ML PIGGYBACK 166.667 MG IV (02:21)
[2021-08-11] MEDS: DEXAMETHASONE 10 MG/ML VIAL 6 MG IV (02:21)
--- NOTE | 2021-08-11 02:27 | P.TELICUCN_ITS ---
History of Present Illness Consult details Chief complaint: Low BP,COVID + :: This patient was seen via real time interactive two-way audiovisual telecommunication. Narrative: 46 yo female intially admitted w a back abscess which was lanced (GPCs on G stain, culture negative). She developed CDiff and was started on treatment. She is not-vaccinated and was noted to have asymptomatic COVID on prior admision. She remained COVID positive on this admission. She started requiring O2 and pCXR tonight c/w severe bilateral multifocal disease. He O2 requirement went up and she was increased to 15L NRB mask and transferred to the ICU. I was asked by Candy Chong (JESE) to help with management in consultation as pt was moved to the ICU. I was able to evaluate and talk with the pt and bedside nurse via live 2 way camera. Pt was in bed, RR high 20s, but pt was not labored. She was able to answer my questions without overt dyspnea. [facility] Medical History Alcohol intoxication Closed hip fracture COVID DKA (diabetic ketoacidoses) DKA (diabetic ketoacidosis) Fibromyalgia Gastroesophageal reflux disease Insulin dependent diabetes mellitus Lupus Osteoporosis Surgical History No pertinent past surgical history Family History Mother Diabetes mellitus Congestive heart failure Pancreatic cancer Father Diabetes mellitus Brother Diabetes mellitus Pancreatitis Sister Drug overdose Social History household members: family Smoking Status: Current every day smoker alcohol intake: never Current Medications Current Medications Medications: Home Medications insulin aspart U-100 100 unit/mL (3 mL) subcutaneous pen (Novolog Flexpen U-100 Insulin aspart) 0 unit (0 mL) SUB-Q AC #3 unit 02/12/18 [Rx Confirmed 08/05/21] buspirone 10 mg tablet 2 tab PO TID 12/08/18 [History Confirmed 08/05/21] cyclobenzaprine 10 mg tablet 10 mg PO TID PRN 12/08/18 [History Confirmed 08/05/21] duloxetine 60 mg capsule,delayed release 60 mg PO DAILY 12/08/18 [History Confirmed 08/05/21] gabapentin 600 mg tablet 1.5 tab PO TID 12/08/18 [History Confirmed 08/05/21] acetaminophen 325 mg tablet 975 mg PO TID PRN #30 tab 12/12/18 [Rx Confirmed 08/05/21] ibuprofen 600 mg tablet 600 mg PO Q6H PRN #30 tab 03/21/20 [Rx Confirmed 08/05/21] insulin glargine 100 unit/mL (3 mL) subcutaneous pen 40 unit SUBCUT QPM 07/26/21 [History Confirmed 08/05/21] Visit Medications (administered) Generic Name Dose Route Start Last Admin Trade Name Freq PRN Reason Stop Dose Admin Acetaminophen 975 mg 08/05/21 15:32 08/10/21 20:02 Acetaminophen 325 Mg Tablet PO 975 mg TID PRN Administration Pain, Moderate Buspirone HCl 20 mg 08/05/21 15:45 08/10/21 21:30 Buspirone 5 Mg Tablet PO 20 mg TID JOSE ANTONIO Administration Cholestyramine Resin 4 gm 08/09/21 15:00 08/10/21 21:30 Cholestyramine/Aspartame 4 Gm Pack PO 4 gm TID JOSE ANTONIO Administration Dexamethasone 6 mg 08/11/21 02:15 08/11/21 02:21 Dexamethasone 10 Mg/Ml Vial IV 6 mg DAILY JOSE ANTONIO Administration Doxycycline Hyclate 100 mg 08/09/21 21:00 08/10/21 21:30 Doxycycline Hyclate 100 Mg Tablet PO 08/16/21 09:01 100 mg BID JOSE ANTONIO Administration Duloxetine HCl 60 mg 08/06/21 09:00 08/10/21 08:19 Duloxetine 30 Mg Capsule PO 60 mg DAILY JOSE ANTONIO Administration Enoxaparin Sodium 40 mg 08/06/21 09:00 08/10/21 08:19 Enoxaparin 40 Mg/0.4 Ml Syringe SUBCUT 40 mg DAILY JOSE ANTONIO Administration Fidaxomicin 200 mg 08/07/21 21:00 08/10/21 21:30 Fidaxomicin 200 Mg Tablet PO 08/17/21 09:01 200 mg BID JOSE ANTONIO Administration Gabapentin 900 mg 08/05/21 15:45 08/10/21 21:31 Gabapentin 600 Mg Tablet PO 900 mg TID JOSE ANTONIO Administration Lactated Ringer's 1,000 mls @ 125 mls/hr 08/07/21 12:15 08/10/21 21:30 Lactated Ringers IV 125 mls/hr CONT JOSE ANTONIO Administration Magnesium Sulfate 2 gm in 50 mls @ 25 mls/hr 08/11/21 00:56 08/11/21 01:24 Magnesium Sulfate IV 08/11/21 02:55 25 mls/hr NOW ONE Administration Vancomycin HCl 1,250 mg in 250 mls @ 166.667 mls/hr 08/11/21 02:30 08/11/21 02:21 Vancomycin IV 08/11/21 03:59 166.667 mls/hr NOW ONE Administration Insulin Human Lispro 0 unit 08/05/21 16:45 08/10/21 21:28 Insulin Lispro 100 Unit/Ml 3ml Vial SUBCUT 2 unit ACHS [facility] Administration Protocol Ondansetron HCl 4 mg 08/08/21 05:21 08/09/21 11:41 Ondansetron 4 Mg/2 Ml Inj IV 4 mg Q6HR PRN Administration Nausea And Vomiting Exam Vital Signs (past 8 hours): - 08/10/21 20:00 08/10/21 20:20 08/10/21 20:23 Temperature 98.1 F Pulse Rate 103 H Respiratory Rate 20 Blood Pressure 94/60 Pulse Oximetry 86 L 85 L 97 08/10/21 20:25 08/11/21 00:15 Temperature Pulse Rate Respiratory Rate Blood Pressure Pulse Oximetry 97 92 Oxygen Delivery Method Non -Rebreather Oxygen Flow Rate 15 Objective Labs Result Diagrams: 08/10/21 06:30 08/10/21 06:30 Labs: Laboratory Results - last 24 hr 08/10/21 08/10/21 08/11/21 06:30 06:30 01:21 WBC 15.5 H RBC 3.08 L Hgb 9.0 L Hct 27.8 L MCV 90.1 MCH 29.4 MCHC 32.6 RDW 19.3 H Plt Count 435 H Neut % (Auto) Not Reportable Lymph % (Auto) Not Reportable [place] % (Auto) Not Reportable Eos % (Auto) Not Reportable Baso % (Auto) Not Reportable Lymph # (Auto) Not Reportable [place] # (Auto) Not Reportable Baso # (Auto) Not Reportable Total Counted 100 Seg Neutrophils % 77.0 H Band Neutrophils % 3.0 Lymphocytes % (Manual) 10.0 L Atypical Lymphs % 1.0 H Monocytes % (Manual) 6.0 Eosinophils % (Manual) 2.0 Myelocytes % 1.0 H Neutrophils # (Manual) 13287 H RBC Morphology See below Hypochromasia 1+ H Poikilocytosis 1+ H Anisocytosis 2+ H Target Cells 1+ H ABG pH 7.42 ABG pCO2 41.1 ABG pO2 70 L ABG HCO3 27 H ABG Total CO2 28 ABG O2 Saturation 94 L ABG Base Excess 2.0 FiO2 100 Sodium 136 L Potassium 3.5 Chloride 105 Carbon Dioxide 28 BUN 4 L Creatinine 0.36 L Estimated GFR > 60.0 BUN/Creatinine Ratio 11.1 Glucose 84 Calcium 7.2 L Phosphorus 1.4 L D Magnesium 1.3 L Total Bilirubin 0.6 AST 46 H ALT 18 Alkaline Phosphatase 155 H Total Protein 4.8 L Albumin 2.0 L Globulin 2.8 Albumin/Globulin Ratio 0.7 L Assessment & Plan Assessment and plan (1) Acute respiratory distress syndrome (ARDS) due to severe acute respiratory syndrome coronavirus 2 (SARS-CoV-2): Status: Acute Plan -I explained to pt that we can try HFNC and self proning to help improve her oxygenation. She seemed receptive to both measues. -I will start her on decadron and baricitinib -Due to GPCs being on her GStain of back abscess and elevated procalcitonin, I would be inclined to cover her w ABX for now to Rx possible bacterial super- infection. We will start her on vanco and zosyn. Case discussed w patient, bedside nurse and Candy Chong (JESE) COVID-19 COVID-19 status: Positive Result date/Date tested (Pos, Neg/Pending): 08/05/21 Time Spent With Patient Critical Care time: I spent a total of 60 minutes of critical care time on this patient's care today; this time is exclusive of procedural time.
[2021-08-11] MEDS: OXYCODONE/ACETAMINOPHEN 5/325 TABLET 1 TAB PO ×3 (02:28→12:56)
--- NOTE | 2021-08-11 03:09 | RT ---
Placed pt on HHFNC: 55 LPM / 85% FiO2 at 0304. Pt's WOB beginning to slightly decrease. Pt tolerating settings.
[2021-08-11 03:15] LABS: Lactate (Lactic Acid) 1.9 mmol/L (0.7-2.1)
[2021-08-11 03:33] LABS: Procalcitonin 10.9 ng/mL (<0.5)
[2021-08-11] MEDS: PIPERACILLIN/TAZO 4.5 GM in SODIUM CHLORIDE 0.9% 100 ML 200 ML IV (04:15)
[2021-08-11 05:01] LABS: Magnesium 3.3 mg/dL (1.6-2.3); Phosphorous 3.1 mg/dL (2.5-4.5)
--- NOTE | 2021-08-11 06:31 | PC.NURSE ---
Patient transferred to ICU room 231 at 0115, drowsy and fatigued but oriented x3, initially on NRB 15L, then placed on HHFNC 55L/85%, SpO2 87-97% Will desat with activity but recovers quickly, RR 20s, says she has little shortness of breath. Valente catheter placed, 20mg IV Lasix given, >2700 UOP for shift. Vancomycin, Zosyn, Decadron, and Baricitinib started. 2gm Mg+ sulfate and PO Calcium given. Percocet for pain. Geological Scout consulted and saw patient via camera in room.
--- NOTE | 2021-08-11 07:31 | PM.PN.1 ---
Subjective Subjective Date Patient Seen: 08/11/21 Interval history: PATIENT REPORTED FEELING MORE SHORT OF BREATH THAN USUAL OVERNIGHT SHE REPORTED SOME COUGHING WELL SHE STATED THAT SHE HAS NOT BEEN FEELING TOO WELL HER LAST 24-48 HOURS SHE IS A TOBACCO SMOKER. DENIES ANY HISTORY OF COPD DIAGNOSIS. DENIED ANY FEVER OR CHILLS HER DIARRHEA HAS IMPROVED SHE IS EATING WELL Exam Vital Signs (past 8 hours): - 08/11/21 00:15 08/11/21 02:00 08/11/21 03:04 Temperature 97.3 F L Pulse Rate 94 H 94 H Respiratory Rate 27 H 31 H Blood Pressure 97/66 95/60 Pulse Oximetry 92 93 96 08/11/21 03:36 08/11/21 04:35 08/11/21 05:00 Temperature 97.0 F L Pulse Rate 102 H 90 90 Respiratory Rate 27 H 22 24 Blood Pressure 101/69 81/53 L 89/60 L Pulse Oximetry 96 91 90 L 08/11/21 05:44 08/11/21 06:25 Temperature Pulse Rate 91 H 90 Respiratory Rate 26 H 25 H Blood Pressure 89/60 L 106/69 Pulse Oximetry 93 92 Fraction of Inspired Oxygen 85 Oxygen Delivery Method Heated High Flow Oxygen Flow Rate 55 Narrative Exam Narrative: NO ACUTE DISTRESS. PATIENT IS ALERT ORIENTED X3. ON HIGH-FLOW MASK VITAL SIGNS ARE SOFT. LOW NORMAL BLOOD PRESSURE READING APPRECIATED HEAD ATRAUMATIC NORMOCEPHALIC NECK : SUPPLE WITHOUT ADENOPATHY NO CAROTID BRUITS EYE: EOMI, PERRLA, NORMAL CONJUNCTIVA; NO JAUNDICE CHEST: REGULAR RATE. NO RUBS. PMI IS NON DISPLACED. NO MURMURS; NORMAL S1-S2 PULMONARY: DECREASED BS OVER THE BASES. MILD BIBASILAR CRACKLES NOTED; NO INCREASED DULLNESS TO PERCUSSION. WHEEZING APPRECIATED BILATERALLY. NO RALES. NO PLEURAL RUBS ABDOMEN: SOFT. NONTENDER. NONDISTENDED. BOWEL SOUNDS ARE PRESENT IN ALL 4 QUADRANTS. NO MASS. EXTREMITIES: 2+ PITTING EDEMA.. NO CYANOSIS CLUBBING NOTED. NEURO: CRANIAL NERVES 2-12 GROSSLY INTACT. NO FOCAL NEUROLOGICAL DEFICIT NOTED. MSK: NORMAL RANGE OF MOTION FOR AGE. NO JOINT EFFUSION. SKIN: NORMAL FOR ETHNICITY; NO ECCHYMOSIS. NO LESION. GOOD TURGOR.; NO RASHES : NORMAL EXTERNAL GENITALIA. FURTHER CATHETER IN PLACE PSYCH : APPROPRIATE MOOD AND AFFECT. ALERT AWAKE ORIENTED X3 Objective Labs Result Diagrams: 08/10/21 06:30 08/10/21 06:30 Labs: Laboratory Results - last 24 hr 08/10/21 08/11/21 08/11/21 06:30 01:21 02:45 Total Counted 100 Seg Neutrophils % 77.0 H Band Neutrophils % 3.0 Lymphocytes % (Manual) 10.0 L Atypical Lymphs % 1.0 H Monocytes % (Manual) 6.0 Eosinophils % (Manual) 2.0 Myelocytes % 1.0 H Neutrophils # (Manual) 06699 H RBC Morphology See below Hypochromasia 1+ H Poikilocytosis 1+ H Anisocytosis 2+ H Target Cells 1+ H ABG pH 7.42 ABG pCO2 41.1 ABG pO2 70 L ABG HCO3 27 H ABG Total CO2 28 ABG O2 Saturation 94 L ABG Base Excess 2.0 FiO2 100 Lactate Phosphorus Magnesium Procalcitonin Nasal Screen MRSA (PCR) Negative for mrsa 08/11/21 08/11/21 08/11/21 02:55 02:55 04:40 Total Counted Seg Neutrophils % Band Neutrophils % Lymphocytes % (Manual) Atypical Lymphs % Monocytes % (Manual) Eosinophils % (Manual) Myelocytes % Neutrophils # (Manual) RBC Morphology Hypochromasia Poikilocytosis Anisocytosis Target Cells ABG pH ABG pCO2 ABG pO2 ABG HCO3 ABG Total CO2 ABG O2 Saturation ABG Base Excess FiO2 Lactate 1.9 Phosphorus 3.1 D Magnesium 3.3 H Procalcitonin 10.9 H Nasal Screen MRSA (PCR) [facility] Medical History Alcohol intoxication Closed hip fracture COVID DKA (diabetic ketoacidoses) DKA (diabetic ketoacidosis) Fibromyalgia Gastroesophageal reflux disease Insulin dependent diabetes mellitus Lupus Osteoporosis Surgical History No pertinent past surgical history Family History Mother Diabetes mellitus Congestive heart failure Pancreatic cancer Father Diabetes mellitus Brother Diabetes mellitus Pancreatitis Sister Drug overdose Social History household members: family Smoking Status: Current every day smoker alcohol intake: never Assessment & Plan Assessment & Plan narrative: PROBLEM LIST ?ACUTE HYPOXIC RESP FAILURE; MULTIFACTORIAL C DIFF COLITIS; ON FIDAXOMICIN; AND BARITICINIB ; IMPROVING ?COVID? 19 ? PNEUMONIA.?WITH ACUTE RESPIRATORY FAILURE POSS ACUTE COPD EXA; HX HEAVY TOBACCO USED PHYSICAL DEBILITY;? MULTIFACTORIAL; ADDRESS INDICATED ?DIABETIC TYPE 2 FOR HISTORY.? BLOOD SUGAR FURTHER CONTROL ?DIABETIC NEUROPATHY.? CONTINUE CURRENT MANAGEMENT ?HYPERMAGNESEMIA.? MONITOR ONLY ? HYPOPHOSPHATEMIA.? ON REPLACEMENT PROTOCOL HYPOALBUMINEMIA. POSSIBLE 3RD SPACING. DUE TO ABOVE PLAN PATIENT TRANSFERRED TO THE ICU OVERNIGHT FOR HIGHER LEVEL OF CARE JUNK REMOVAL SPECIALIST CONSULTED FOR RECOMMENDATIONS PATIENT STARTED ON ANTIBIOTICS ASSISTANCE FROM INTENSIVE IS GREATLY APPRECIATED OXYGEN SUPPLEMENT PER APPROPRIATE DEVICE TO MAINTAIN PROPER OXYGEN SATURATION ABOVE 88% AT ALL TIMES AGGRESSIVE PULMONARY TOILETING KEEP ON TELEMETRY AT ALL TIME WELL DUONEB TREATMENT SCHEDULED ALSO ADDED ALBUTEROL NEEDED PULMICORT ADDED DUE TO HISTORY OF TOBACCO ABUSE AND SUSPECTED COPD REPEAT CHEST X-RAY IN THE MORNING REPEAT ABG SERIALLY ALSO TO FOLLOW CONSIDER VENTILATOR IF OXYGENATION CONTINUED TO DECREASE CHEST X-RAY REVIEWED AND APPEARED TO HAVE A COMPONENT OF FLUID OVERLOAD WELL LASIX HAS BEEN ADDED WATCH FOR ELECTROLYTE IMBALANCE WHILE ON DIURETIC THERAPY WILL START ON POTASSIUM REPLACEMENT THERAPY WELL PATIENT HAS C DIFF COLITIS DESPITE THE WORSENING PNEUMONIA, WILL HOLD BROAD-SPECTRUM ANTIBIOTICS COULD CONTINUE VANCOMYCIN THIS ANTIBIOTIC IS LEAST LIKELY TO CAUSE INFECTIOUS COLITIS ADD ACIDOPHILUS WILL ALSO GIVE 1 DOSE OF ALBUMIN THIS MORNING TO HELP WITH PANCREATIC PRESSURE PATIENT APPEARED TO HAVE SOME 3RD SPACING. MONITOR INPUT OUTPUT CLOSELY DAILY WEIGHT ADDITIONAL MANAGEMENT PER CLINICAL COURSE PROGNOSIS IS GUARDED Time Spent With Patient Critical Care time: I spent a total of [] minutes of critical care time on this patient's care today; this time is exclusive of procedural time.
[2021-08-11] MEDS: POTASSIUM CHLORIDE 20 MEQ TAB PO ×2 (08:01→11:40)
[2021-08-11] MEDS: ENOXAPARIN 40 MG/0.4 ML SYRINGE SUBCUT (08:01)
[2021-08-11] MEDS: DULOXETINE 30 MG CAPSULE 60 MG PO ×2 (08:01→11:40)
[2021-08-11] MEDS: CHOLESTYRAMINE/ASPARTAME 4 GM PACK PO ×2 (08:07→15:42)
[2021-08-11] MEDS: DEXAMETHASONE 10 MG/ML VIAL 8 MG IV ×3 (08:20→21:47)
[2021-08-11] MEDS: GABAPENTIN 600 MG TABLET 300 MG PO (08:20)
[2021-08-11] MEDS: CHOLECALCIFEROL (VITAMIN D3) 1,000 UNIT TABLET 1000 UNIT PO (08:20)
[2021-08-11] MEDS: ALBUTEROL/IPRATROPIUM 3 ML AMPUL INH ×4 (08:43→21:24)
[2021-08-11] MEDS: BUDESONIDE 0.5 MG/2 ML NEB INH ×2 (08:43→21:24)
[2021-08-11] MEDS: ALBUMIN HUMAN 25 GM/100 ML VIAL IV (08:51)
[2021-08-11] MEDS: LACTOBACILLUS ACIDOPHILUS TABLET 1 EACH PO ×2 (09:00→13:42)
[2021-08-11] MEDS: ZINC SULFATE 220 MG CAPSULE PO (10:00)
--- NOTE | 2021-08-11 10:00 | PM.PN.EICU ---
Subjective Subjective :: This patient was seen via real time interactive two-way audiovisual telecommunication. Pt is comfortable on HFNC Current Medications Current Medications Medications: Home Medications insulin aspart U-100 100 unit/mL (3 mL) subcutaneous pen (Novolog Flexpen U-100 Insulin aspart) 0 unit (0 mL) SUB-Q AC #3 unit 02/12/18 [Rx Confirmed 08/05/21] buspirone 10 mg tablet 2 tab PO TID 12/08/18 [History Confirmed 08/05/21] cyclobenzaprine 10 mg tablet 10 mg PO TID PRN 12/08/18 [History Confirmed 08/05/21] duloxetine 60 mg capsule,delayed release 60 mg PO DAILY 12/08/18 [History Confirmed 08/05/21] gabapentin 600 mg tablet 1.5 tab PO TID 12/08/18 [History Confirmed 08/05/21] acetaminophen 325 mg tablet 975 mg PO TID PRN #30 tab 12/12/18 [Rx Confirmed 08/05/21] ibuprofen 600 mg tablet 600 mg PO Q6H PRN #30 tab 03/21/20 [Rx Confirmed 08/05/21] insulin glargine 100 unit/mL (3 mL) subcutaneous pen 40 unit SUBCUT QPM 07/26/21 [History Confirmed 08/05/21] Visit Medications (administered) Generic Name Dose Route Start Last Admin Trade Name Freq PRN Reason Stop Dose Admin Albuterol/Ipratropium 3 ml 08/11/21 07:17 08/11/21 08:43 Albuterol/Ipratropium 3 Ml Ampul INH 3 ml Q4H JOSE ANTONIO Administration Budesonide 0.5 mg 08/11/21 08:00 08/11/21 08:43 Budesonide 0.5 Mg/2 Ml Neb INH 0.5 mg RTBID JOSE ANTONIO Administration Buspirone HCl 20 mg 08/05/21 15:45 08/10/21 21:30 Buspirone 5 Mg Tablet PO 20 mg TID JOSE ANTONIO Administration Cholestyramine Resin 4 gm 08/09/21 15:00 08/11/21 08:07 Cholestyramine/Aspartame 4 Gm Pack PO 4 gm TID JOSE ANTONIO Administration Dexamethasone 8 mg 08/11/21 09:00 08/11/21 08:20 Dexamethasone 10 Mg/Ml Vial IV 8 mg TID JOSE ANTONIO Administration Duloxetine HCl 60 mg 08/06/21 09:00 08/11/21 08:01 Duloxetine 30 Mg Capsule PO 60 mg DAILY [facility] Administration Enoxaparin Sodium 40 mg 08/06/21 09:00 08/11/21 08:01 Enoxaparin 40 Mg/0.4 Ml Syringe SUBCUT 40 mg DAILY JOSE ANTONIO Administration Fidaxomicin 200 mg 08/07/21 21:00 08/10/21 21:30 Fidaxomicin 200 Mg Tablet PO 08/17/21 09:01 200 mg BID JOSE ANTONIO Administration Gabapentin 300 mg 08/11/21 09:00 08/11/21 08:20 Gabapentin 600 Mg Tablet PO 300 mg TID [facility] Administration Insulin Human Lispro 0 unit 08/05/21 16:45 08/11/21 08:50 Insulin Lispro 100 Unit/Ml 3ml Vial SUBCUT Not Given ACHS [facility] Protocol Ondansetron HCl 4 mg 08/08/21 05:21 08/09/21 11:41 Ondansetron 4 Mg/2 Ml Inj IV 4 mg Q6HR PRN Administration Nausea And Vomiting Oxycodone/Acetaminophen 1 tab 08/11/21 02:15 08/11/21 08:20 Oxycodone/Acetaminophen 5/325 Tablet PO 1 tab Q4HR PRN Administration Pain, Moderate (4-6) Potassium Chloride 20 meq 08/11/21 08:00 08/11/21 08:01 Potassium Chloride 20 Meq Tab PO 20 meq DAILYCC [facility] Administration Vitamin D 1,000 unit 08/11/21 09:00 08/11/21 08:20 Cholecalciferol (Vitamin D3) 1,000 Unit Tablet PO 1,000 unit DAILY JOSE ANTONIO Administration Objective Labs Result Diagrams: 08/10/21 06:30 08/10/21 06:30 Labs: Laboratory Results - last 24 hr 08/11/21 08/11/21 08/11/21 01:21 02:45 02:55 ABG pH 7.42 ABG pCO2 41.1 ABG pO2 70 L ABG HCO3 27 H ABG Total CO2 28 ABG O2 Saturation 94 L ABG Base Excess 2.0 FiO2 100 Lactate 1.9 Phosphorus Magnesium Procalcitonin Nasal Screen MRSA (PCR) Negative for mrsa 08/11/21 08/11/21 02:55 04:40 ABG pH ABG pCO2 ABG pO2 ABG HCO3 ABG Total CO2 ABG O2 Saturation ABG Base Excess FiO2 Lactate Phosphorus 3.1 D Magnesium 3.3 H Procalcitonin 10.9 H Nasal Screen MRSA (PCR) Exam Vital Signs (past 8 hours): - 08/11/21 03:04 08/11/21 03:36 08/11/21 04:35 Temperature 97.0 F L Pulse Rate 94 H 102 H 90 Respiratory Rate 31 H 27 H 22 Blood Pressure 95/60 101/69 81/53 L Pulse Oximetry 96 96 91 08/11/21 05:00 08/11/21 05:44 08/11/21 06:25 Temperature Pulse Rate 90 91 H 90 Respiratory Rate 24 26 H 25 H Blood Pressure 89/60 L 89/60 L 106/69 Pulse Oximetry 90 L 93 92 08/11/21 07:00 08/11/21 09:00 Temperature 97.6 F Pulse Rate 95 H 95 H Respiratory Rate 26 H 30 H Blood Pressure 107/74 104/69 Pulse Oximetry 97 97 Fraction of Inspired Oxygen 85 Oxygen Delivery Method High Flow Nasal Cannula Oxygen Flow Rate 55 Assessment & Plan Assessment & Plan narrative: 1)?? Acute respiratory distress syndrome (ARDS) due to severe acute respiratory syndrome coronavirus 2 (SARS-CoV-2): ? ? 2)? Acute hypoxemic respiratory failure 3)? Possible 2ndary bacterial PNA 4)? C diff infection 5)? Back abscess GPCs Rec: Continue HFNC, currently comfortable on 55L/ 85%, wean off as tolerated to keep Sat>92 Continue Decadron, Dexa & Baricitinib Continue Van and Zosyn, f/u parker Cx to deescalate Ab as soon as possible Continue Vanc PO & Fidaxomycin, on Lasix 40 mg daily Adjsut dose / IV as needed to maintain negative balance Insulin dose adjustment as need for BS goal 120-180 Lovenox for DVT ppx Rec discussed with RN ? ? Time Spent With Patient Critical Care time: I spent a total of [35] minutes of critical care time on this patient's care today; this time is exclusive of procedural time.
--- NOTE | 2021-08-11 11:04 | DIET.PN1 ---
Dietary Progress Note RD Note: Covid+ pt with poorly managed DM2 on LOS day6 was transferred to ICU last evening secondary to increased SOB thought to be from volume overload status. Lasix given with good urine output. Pts POs improved since early hospital stay, up to ~50% at each meal from 5%. Pt drinking ONS glucerna bid, however pt remains malnourished. Pts BG have large swings over past 24h 43->200. Ht: 157.48 cm Wt: 47.8 kg BMI: 19.5 Last BM: 08/11/21 (08/11/21 07:51) MNA: Jag Score: 17 Diet: 08/05/21 Dinner Carbohydrate Consistent Diet Diet Modifications: glucerna bid, Nilson slushie once Carbohydrate level: Large (4 CHO) Bedtime snack: Yes Heart Healthy Diet Diet Modifications: Nutrition Percent Meal Consumed 50% 08/10/21 09:17 Percent Meal Consumed 50% 08/09/21 18:00 Labs: RBC 3.08 X10^6/uL (4.0-5.2) L 08/10/21 06:30 Hgb 9.0 g/dL (12.0-16.0) L 08/10/21 06:30 Hct 27.8 % (36-46) L 08/10/21 06:30 Creatinine 0.36 mg/dL (0.52-1.04) L 08/10/21 06:30 Hemoglobin A1c 10.4 % (4.0-6.0) H 08/05/21 11:00 Lactate 1.9 mmol/L (0.7-2.1) 08/11/21 02:55 Nutrition Diagnosis: Severe Acute Protein Calorie Malnutrition r/t long covid, poorly managed DMT1 aeb A1c 10.4, unhealing wounds, BMI 19.6, pt with no sense of taste or smell meeting <50% EER for 2w. Interventions: Continue CCD with glucerna bid Monitoring/Evaluations: f/u prn Electronically Signed by: Viviana Graves 08/11/21 11:04 Clinical Dietitian [address] [id number]
[2021-08-11] MEDS: MULTIVIT,CALC,MINS/IRON/FOLIC 1 TABLET 1 TAB PO (11:39)
[2021-08-11] MEDS: ASCORBIC ACID 500 MG TABLET PO (11:41)
[2021-08-11] MEDS: VANCOMYCIN 1,000 MG/200 ML PIGGYBACK 200 MG IV ×2 (11:41→20:33)
[2021-08-11] MEDS: SODIUM CHLORIDE 0.9% FLUSH 10 ML IV ×2 (11:41→21:00)
[2021-08-11] MEDS: BUSPIRONE 5 MG TABLET 20 MG PO ×2 (11:42→15:42)
--- NOTE | 2021-08-11 12:18 | PC.NURSE ---
Am shift, hypoglycemia. CBG 45 this AM. Juice provided. Improved to >80 with snack. Midline replaced, LUE and RUE J loop redressed. Pt has fragile veins that are easily collapsed with negative pressure for lab draws. Both are drawing nicely at this time. TKO and Hep flush. Labs drawn from line as soon as it was placed.
[2021-08-11 12:31] LABS: Add Manual Diff / Slide Review NO; Basophils Absolute Auto 0 /uL (0-100); Basophils Percent Auto 0.2 % (0-2); Eosinophils Absolute Auto 0 /uL (0-450); Hematocrit 28.9 % (36-46); Hemoglobin 9.4 g/dL (12.0-16.0); Lymphocytes Absolute Auto 400 /uL (1100-4500); Lymphocytes Percent Auto 3.1 % (25-40); Mean Corpuscular HGB Conc 32.4 % (30-36); Mean Corpuscular Hemoglobin 29.2 PG (26-34); Mean Corpuscular Volume 90.2 fL (80-100); Monocytes Absolute Auto 200 /uL (0-900); Monocytes Percent Auto 1.7 % (3-14); Neutrophils Absolute Auto 11900 /uL (1500-7000); Platelet Count 433 X10^3/uL (150-400); Red Cell Distribution Width 18.8 % (11.6-14.8); White Blood Cell Count 12.5 X10^3/uL (4.5-11.0)
[2021-08-11 12:40] LABS: Alanine Aminotransferase 16 IU/L (<35); Albumin 2.3 g/dL (3.5-5.0); Albumin Globulin Ratio 0.9 (1.0-2.8); Alkaline Phosphatase 149 U/L (38-126); Aspartate Aminotransferase 45 IU/L (14-36); Bilirubin Total 0.4 mg/dL (0.2-1.3); Calcium 6.6 mg/dL (8.4-10.2); Carbon Dioxide 33 mmol/L (22-32); Chloride 97 mmol/L (98-107); Estimated Glomerular Filt Rate > 60.0 mL/min (>60); Globulin 2.7 g/dL (1.7-4.1); Glucose 161 mg/dL (70-100); HEMOLYSIS 16 (0-50); Phosphorous 3.7 mg/dL (2.5-4.5); Potassium 3.4 mmol/L (3.4-5.1); Sodium 133 mmol/L (137-145)
[2021-08-11 12:41] LABS: BUN Creatinine Ratio 5.6 (6-22); Blood Urea Nitrogen 2 mg/dL (7-17)
[2021-08-11] MEDS: DOXYCYCLINE HYCLATE 100 MG TABLET PO (12:57)
[2021-08-11] MEDS: FIDAXOMICIN 200 MG TABLET PO (13:02)
[2021-08-11 13:37] LABS: Lactate (Lactic Acid) 3.3 mmol/L (0.7-2.1)
[2021-08-11 15:25] LABS: Reflexed Lactate in 2 Hours Y
[2021-08-11] MEDS: FUROSEMIDE 40 MG/4 ML VIAL IV (15:27)
--- NOTE | 2021-08-11 15:36 | PC.NURSE ---
Am shift Pt is SOB unable to decrease 02 much this shift. Wet cough. Non proodect. IV Lasix held unti lthis afternoon, due to soft BPs. Monitoring closely. Albumin iv per protocol. Orders obtained for D10NS
[2021-08-11] MEDS: DEXTROSE 5%-0.9% NS 1,000 ML 21 ML IV (16:32)
--- NOTE | 2021-08-11 17:00 | DI.CT.S_ITS ---
PROCEDURE: CT ANGIO HEAD AND NECK INDICATIONS: STROKE SYMPTOMS TECHNIQUE: After the administration of intravenous contrast, 1 mm thick sections acquired from the aortic arch through the [place]. Post-contrast 4.5 mm thick sections then re-acquired from the foramen magnum to the vertex. 3-dimensional dimbgre-ojzbnlagc-tgcroaoxez (MIP) and/or volume rendering reformats were acquired of the central intracranial vasculature and neck separately. COMPARISON: [facility], CR, XR CHEST 1V, 08/11/2021, 1:04. [facility], CT, CT STROKE, 08/11/2021, 17:08. FINDINGS: Image quality: Excellent. BRAIN: CSF spaces: Ventricles are normal in size and shape. Basal cisterns are patent. No extra-axial fluid collections. Brain: No midline shift. No intracranial bleeds or masses. Mackey-white matter interface appears intact. Skull and face: Calvarium and facial bones appear intact, without suspicious lesions. Orbits appear normal. Sinuses: Sinuses and mastoids are clear. HEAD CT ANGIOGRAPHY: Anterior circulation: Intracranial internal carotid arteries are normal in size and flow. The flow within the paired anterior cerebral arteries is normal and symmetric. The flow within the middle cerebral arteries is normal and symmetric. The anterior communicating artery is seen. No aneurysms are seen. Posterior circulation: Visualized portions of the vertebral arteries demonstrate normal caliber, and join to form a normal appearing basilar artery. Flow within the posterior cerebral arteries is normal and symmetric. No aneurysms are seen. There is a left vertebral artery dominance. NECK CT ANGIOGRAPHY: The origins of the left and right common, left internal and bilateral external carotid arteries demonstrate no areas of hemodynamically significant stenosis, vascular occlusion or aneurysmal dilation. There is an approximate 70% stenosis within the proximal segment of the right internal carotid artery, 3 mm from the origin. There are no associated calcifications. Origins of the left and right vertebral arteries demonstrate no areas of hemodynamically significant stenosis, vascular occlusion or aneurysmal dilation. Aortic arch demonstrates conventional anatomy. Limited, visualized portions of the subclavian vasculature are unremarkable. Visualized portions the lungs demonstrate confluent areas of opacifications within the upper lobes bilaterally. It appears unchanged compared to recent chest x-ray. IMPRESSION: 1. No acute intracranial process. 2. No areas of hemodynamically significant stenosis, vascular occlusion or aneurysmal dilation within the anterior or posterior circulation. 3. Approximate 70% stenosis near the origin of the right internal carotid artery as above. While this could represent a penetrating ulcer, given lack of associated calcification, other etiology may include focal area of mural thrombus extending into the lumen. Any quantitative measurements of stenosis were performed using NASCET criteria. Dictated by: Jessica Tovar M.D. on 08/11/2021 at 17:37 Approved by: Jessica Tovar M.D. on 08/11/2021 at 17:42
--- NOTE | 2021-08-11 17:01 | DI.CT.S_ITS ---
PROCEDURE: CT STROKE INDICATIONS: STROKE LIKE SYMPTOMS TECHNIQUE: Noncontrast 4.5 mm thick angled axial sections acquired from the foramen magnum to the vertex, with coronal reformats. For radiation dose reduction, the following was used: automated exposure control, adjustment of mA and/or kV according to patient size. COMPARISON: [facility], CT, CT ANGIO HEAD AND NECK, 08/11/2021, 17:08. FINDINGS: Image quality: Excellent. CSF spaces: Basal cisterns are patent. No extra-axial fluid collections. Ventricles are normal in size and shape. Brain: No midline shift. No intracranial masses or hemorrhage. Mackey-white matter interface is normal. Skull and face: Calvarium and visualized facial bones are intact, without suspicious lesions. Sinuses: Visualized sinuses demonstrate mild mucosal thickening within the right ethmoid air cells. IMPRESSION: No acute intracranial process. he above findings were discussed with Dr. Bocanegra on 08/11/2021 at 5:35 p.m. This study fulfills neurological imaging criteria for inclusion or exclusion of acute stroke therapies based on available published neurological imaging guidelines. Dictated by: Jessica Tovar M.D. on 08/11/2021 at 17:33 Approved by: Jessica Tovar M.D. on 08/11/2021 at 17:36
--- NOTE | 2021-08-11 17:11 | CM.DANOTE ---
DCP/continued: Patient transferred to room #231. Code stroke called on patient this afternoon. CM team to re-assess as needed for d/c planning needs. P: Pending. JAYLEN
--- NOTE | 2021-08-11 17:32 | PC.NURSE ---
At bedside to assess Pt @ 1648, Pt not answering verbally Pt listing to the
[2021-08-11] MEDS: DEXTROSE 5%-0.9% NS 500 ML 21 ML IV (17:41)
[2021-08-11] MEDS: ASPIRIN 300 MG SUPP PR (17:56)
--- NOTE | 2021-08-11 18:39 | PC.NURSE ---
Addendum entered by Lois Rosenberg R.N. 08/11/21 20:03: Pt remains on HHFNC 55L and 85% Fio2 at present. Spo2 >93% Original Note: At bedside with patient at 1640 pt was unable to answer this RN at that time and listing noted to the L side. Pt repeatedly pointing to her head only using RIght hand. L side flaccid, shakes head no when asked if she is able to feel any sensation to that side. Code stroke called overhead and hospitalist Dr Covarrubias At bedside to assess change in neuro status. Pt is transported to CT for head scan. RT and this RN at beside. Tele ICU notified and CT reported negative. [place] ASA administered and Tele stroke updated. [place] rec. for TPA after discussion with Hospitalist. Pt is able to verbalize understanding about risks vs benefits, and this RN obtained consent with Hospitalist. TPA mixed by pharmacy, and verified by 2 RNs, given with offgoing LUTHER June for baseline neuro assessment. At this time Pt is able to move toes on LLE and feel sensation, no movement noted to LUE at time of shift change. Pt is now able to verbalize understanding of POC and that she has had a stroke, Pt requests no update to family. This RN has offered multiple times. Updated Shaylee RN of this. NPO until eval by speech in am. Continue CBG at least q6 for NPO status.
[2021-08-11 18:47] LABS: HCO3 ABG 34 mmol/L (22-26); PCO2 ABG 47.2 mmHg (35-45); PO2 ABG 59 mmHg (80-100); pH ABG 7.46 (7.35-7.45)
[2021-08-11 18:48] LABS: Fractionated Inspired Oxygen 85; Oxygen Saturation ABG 91 % (95-100); TCO2 ABG 35 mmol/L (21-31)
--- NOTE | 2021-08-11 18:53 | RT ---
1700 Code stroke called, patient taken to CT on NRB 15L, Patient sats 78%, Placed on High flow NC AT 15L and 15L NRB (100%). Patient returned to room placed on V60 (CPAP 12) sats increased to 98%. Returned patient to 55L/85% HHFNC, ABG drawn.
[2021-08-11] MEDS: ALTEPLASE 306 MG IV (18:55)
[2021-08-11] MEDS: ALTEPLASE IV (19:04)
--- NOTE | 2021-08-11 23:35 | PM.ICURNDS ---
- Date Patient Seen: 08/11/21 Time Patient Seen: 20:07 :: This patient was seen via real time interactive two-way audiovisual telecommunication. Note: Responded to e-alert earlier this evening due to change in mental status and LUE/LLE weakness. Stroke alert was called and teleneurology consulted. Patient was on NIPPV on camera activation. I spoke to Dr. Altamirano and advised that this be changed to HFNC due to depressed mental status. Teleneurology consultation recommended tPA. Since the start of the infusion, she has regained LUE/LLE extremity movement and is slowly improving. Patient is currently on 55 L/min 94% FiO2 HFNC. Case discussed with LUTHER.
[2021-08-12] VITALS (12 sets, daily range): BP systolic 99–131; BP diastolic 70–86; PULSE 81–97; RESP 19–23; TEMP 36.5–36.6; O2SAT 88–99
[2021-08-12] MEDS: ALBUTEROL/IPRATROPIUM 3 ML AMPUL INH ×2 (00:33→04:35)
--- NOTE | 2021-08-12 02:24 | PC.NURSE ---
Pt's LNW 1438. tPA started at 1900. NIH 22 at beginning of tPA administration. tPA finished at 1999. 0200 NIH has been consistent at 16 from [id number]. Have asked both the Dr. Ladd and Kaylyn Chong about transferring pt. I have also asked both providers when heparin flushes can be used and glucose checks can be performed with a finger stick with no definitive answer. They have been notified that the pt's bilateral mid line do not draw blood. 0200 Pt L pupil has changed from 3mm fixed to 5mm fixed. ZOFIA Chong has been notified. She is now at bedside with this RN and tele-ICU.
--- NOTE | 2021-08-12 02:40 | DI.CT.S_ITS ---
PROCEDURE: CT HEAD/BRAIN WO CON INDICATIONS: change in pupil size TECHNIQUE: Noncontrast 4.5 mm thick angled axial sections acquired from the foramen magnum to the vertex, with coronal and sagittal reformats. For radiation dose reduction, the following was used: automated exposure control, adjustment of mA and/or kV according to patient size. COMPARISON: [facility], CT, HEAD WITHOUT CONTRAST, 08/20/2017, 20:53. FINDINGS: Image quality: Excellent. CSF spaces: Basal cisterns are patent. No extra-axial fluid collections. Ventricles are normal in size and shape. Brain: No midline shift. No intracranial masses or hemorrhage. Mackey-white matter interface is normal. Right parietal vertex diminished cortical appearance , technically non-specific finding. Skull and face: Calvarium and visualized facial bones are intact, without suspicious lesions. Sinuses: Mastoids clear. Mild opacification involving the right ethmoid air cells. IMPRESSION: No acute intracranial process. Findings concordant with the preliminary study interpretation provided at the time of the exam. Dictated by: Ricardo Chong M.D. on 08/12/2021 at 8:03 Approved by: Ricardo Chong M.D. on 08/12/2021 at 8:07
--- NOTE | 2021-08-12 03:10 | PM.DS.1 ---
History of Present Illness History of Present Illness Date Patient Seen: 08/12/21 Time Patient Seen: 03:11 Date of Onset of Symptoms: 08/11/21 Chief complaint: Low BP,COVID + Narrative: Chief complaint: Acute new CVA. Per day time hospitalist sign-out and note of 08/11, late in the afternoon the patient developed left-sided weakness of her upper and lower extremities as well as drooping on that side and a visual defect. Code stroke was called and the patient underwent a head CT and a CTA. Due to her deficits and after consultation with the [facility], the patient was initiated on tPA at approximately 6:30 p.m.. Multiple times after starting my shift I was asked whether the patient needed to be transferred. I was advised in my sign-out that there were no beds for the patient. At approximately 230 this morning of the I was advised that the patient had unequal pupil size that were fixed. I followed up with the [facility] to find out whether the patient was scheduled for transfer and found out that their offer of assistance to get the patient transferred was declined earlier in the day. I requested assistance from Dr. Blanc from [facility] to facilitate transfer of the patient where there were neurosurgical services. At approximately 0230 I was informed of change in the patient's pupil size, contacted [facility], examined the patient and left pupil between 4-5 mm, right pupil is 3 mm and fixed. Due to a suspicion of a new evolving stroke I contacted the [facility] again and was contacted by Dr. Arielle Trejo, neuro scrap crane operator of the new finding and she agreed to take the patient in transfer after working out logistics of placing a COVID patient into a negative pressure room at their facility. Be doing a stat CT of the head without contrast. Have advised ED due to need to divert. Discharge Providers Provider Date of admission: 08/05/21 14:20 Discharge Date: 08/12/21 Primary care physician: Jhonny Evans PA-C Consults: 08/05/21 15:32 Consult to Occupational Therapy Evaluate & Treat Comment: Physician Instructions: Evaluate and treat Consult to Physical Therapy Evaluate & Treat Comment: Physician Instructions: Evaluate and Treat 08/06/21 12:09 Consult to General Surgery Routine Comment: Consulting Provider: Aaron Angel Reason for consultation: Large abscess to right back, I&D Has provider been notified: No Discharge provider: ZOFIA Klein Summary Hospital Course Discharge Diagnosis: Covid-19 Pneumonia, acute CVA Hospital Course: This patient was initially admitted on July 25 for DKA and a UTI and had been started on ceftriaxone and found out that she was positive for COVID pneumonia. She was asymptomatic at the time. She put on an insulin drip and given IV antibiotics for UTI. Her anion gap did close and her glucoses were stabilized discharged on on July 27. She was seen at her [facility] for follow-up on August 05 and at that time she was tachycardic in the 150s and hypotensive. She was transported to [facility] Emergency Department and readmitted for borderline DKA and possible long COVID syndrome. While in house she developed an abscess on her back and underwent incision drainage by General Surgery on July 27. She seemed to be stable and improving on both IV antibiotics and oral fidaxomicin for her C diff. on the evening of August 10, I reviewed her chest x-ray which indicated worsening pneumonia. She was started on IV Zosyn and transferred back to the ICU. She has been on heated high-flow oxygen. On the afternoon of the she developed progressive weakness with initial NIH score of 24. Head CT was normal however the CT of the head and neck indicated ?Approximate 70% stenosis near the origin of the right internal carotid artery as above.? While this could represent a penetrating ulcer, given lack of associated calcification, other etiology may include focal area of mural thrombus extending into the lumen. At approximately 1830 she was administered tPA. Nursing staff were instructed not to do any heparin flushes or any invasive procedures which included drawing labs, Valente catheters, or heparin flushes. I was advised at about 230 in the morning that she had had new findings of unequal and unreactive pupil sizes which I confirmed at the bedside. [facility] ICU was consulted and stat head CT without contrast reported age indeterminant focal cortical and subcortial hypoattenuation at the right parietal vertex. Status at Discharge Cognitive/behavioral status at discharge: at baseline, confused Functional status at discharge: bed bound Overall status at discharge: patient is not back to baseline Time Spent with Patient Time spent: Greater than 30 minutes (Total Critical Care Time: 90 minutes. Attestation:The high probability of a clinically significant, sudden or life threatening deterioration of the patient required my full and direct attention, intervention and personal management. ) Exam Vital Signs (past 8 hours): - 08/11/21 19:15 08/11/21 19:30 08/11/21 19:45 Temperature 96.8 F L 97.7 F 97.8 F Pulse Rate 90 89 90 Respiratory Rate 22 22 22 Blood Pressure 119/79 109/79 119/77 Pulse Oximetry 90 L 91 89 L 08/11/21 20:00 08/11/21 20:15 08/11/21 20:30 Temperature 97.5 F L 97.9 F 97.4 F L Pulse Rate 91 H 90 87 Respiratory Rate 22 22 22 Blood Pressure 122/80 106/70 110/81 Pulse Oximetry 88 L 90 L 93 08/11/21 20:45 08/11/21 20:48 08/11/21 21:00 Temperature 97.8 F 97.7 F Pulse Rate 89 91 H 90 Respiratory Rate 20 23 22 Blood Pressure 130/86 127/87 Pulse Oximetry 90 L 92 89 L 08/11/21 21:15 08/11/21 21:30 08/11/21 22:00 Temperature 96.8 F L 97.7 F 97.6 F Pulse Rate 90 89 93 H Respiratory Rate 22 22 20 Blood Pressure 119/79 109/79 126/82 Pulse Oximetry 90 L 89 L 89 L 08/11/21 22:30 08/11/21 22:51 08/11/21 23:00 Temperature 97.5 F L 97.7 F Pulse Rate 92 H 91 H 91 H Respiratory Rate 22 21 21 Blood Pressure 124/75 124/75 129/82 Pulse Oximetry 90 L 90 L 90 L 08/11/21 23:30 08/12/21 00:00 08/12/21 00:30 Temperature 97.6 F 97.7 F 97.7 F Pulse Rate 93 H 94 H 93 H Respiratory Rate 22 20 20 Blood Pressure 121/78 122/72 112/75 Pulse Oximetry 92 90 L 91 08/12/21 01:00 08/12/21 01:22 08/12/21 01:30 Temperature 97.7 F 97.7 F Pulse Rate 94 H 94 H 93 H Respiratory Rate 20 19 23 Blood Pressure 117/80 117/80 123/82 Pulse Oximetry 90 L 91 99 Fraction of Inspired Oxygen 100 Oxygen Delivery Method Heated High Flow Oxygen Flow Rate 55 Narrative Exam Narrative: Gen: Alert, oriented, ill-appearing 46 y.o. female, arousable and appears uncomfortable HEENT: normocephalic, atraumatic, left pupil is 4-5 mm and fixed right pupil is 3 mm and fixed conjunctiva clear, sclera non-icteric, oral mucosa pink and moist Resp: On heated high-flow oxygen Skin: no lesions or rashes, dry and intact Neuro: NIH of 16, wants to follow directions, but with left sided marylou-neglect and paresis, currently non-verbal Psyche: cooperative, depressed affect. Objective Labs Result Diagrams: 08/10/21 06:30 08/10/21 06:30 Labs: Laboratory Results - last 24 hr 08/11/21 08/11/21 08/11/21 02:45 02:55 02:55 WBC RBC Hgb Hct MCV MCH MCHC RDW Plt Count Neut % (Auto) Lymph % (Auto) [place] % (Auto) Eos % (Auto) Baso % (Auto) Neut # (Auto) Lymph # (Auto) [place] # (Auto) Eos # (Auto) Baso # (Auto) ABG pH ABG pCO2 ABG pO2 ABG HCO3 ABG Total CO2 ABG O2 Saturation ABG Base Excess FiO2 Sodium Potassium Chloride Carbon Dioxide BUN Creatinine Estimated GFR BUN/Creatinine Ratio Glucose Lactate 1.9 Calcium Phosphorus Magnesium Total Bilirubin AST ALT Alkaline Phosphatase Total Protein Albumin Globulin Albumin/Globulin Ratio Procalcitonin 10.9 H Nasal Screen MRSA (PCR) Negative for mrsa 08/11/21 08/11/21 08/11/21 04:40 11:19 12:15 WBC Cancelled RBC Cancelled Hgb Cancelled Hct Cancelled MCV Cancelled MCH Cancelled MCHC Cancelled RDW Cancelled Plt Count Cancelled Neut % (Auto) Cancelled Lymph % (Auto) Cancelled [place] % (Auto) Cancelled Eos % (Auto) Cancelled Baso % (Auto) Cancelled Neut # (Auto) Cancelled Lymph # (Auto) Cancelled [place] # (Auto) Cancelled Eos # (Auto) Cancelled Baso # (Auto) Cancelled ABG pH ABG pCO2 ABG pO2 ABG HCO3 ABG Total CO2 ABG O2 Saturation ABG Base Excess FiO2 Sodium Potassium Chloride Carbon Dioxide BUN Creatinine Estimated GFR BUN/Creatinine Ratio Glucose Cancelled Lactate Calcium Phosphorus 3.1 D Magnesium 3.3 H Total Bilirubin AST ALT Alkaline Phosphatase Total Protein Albumin Globulin Albumin/Globulin Ratio Procalcitonin Nasal Screen MRSA (PCR) 08/11/21 08/11/21 08/11/21 12:20 12:20 13:25 WBC 12.5 H RBC 3.20 L Hgb 9.4 L Hct 28.9 L MCV 90.2 MCH 29.2 MCHC 32.4 RDW 18.8 H Plt Count 433 H Neut % (Auto) 95.0 H Lymph % (Auto) 3.1 L [place] % (Auto) 1.7 L Eos % (Auto) 0.0 L Baso % (Auto) 0.2 Neut # (Auto) 68221 H Lymph # (Auto) 400 L [place] # (Auto) 200 Eos # (Auto) 0 Baso # (Auto) 0 ABG pH ABG pCO2 ABG pO2 ABG HCO3 ABG Total CO2 ABG O2 Saturation ABG Base Excess FiO2 Sodium 133 L Potassium 3.4 Chloride 97 L Carbon Dioxide 33 H BUN 2 L Creatinine 0.36 L Estimated GFR > 60.0 BUN/Creatinine Ratio 5.6 L Glucose 161 H Lactate 3.3 H Calcium 6.6 L Phosphorus 3.7 Magnesium Total Bilirubin 0.4 AST 45 H ALT 16 Alkaline Phosphatase 149 H Total Protein 5.0 L Albumin 2.3 L Globulin 2.7 Albumin/Globulin Ratio 0.9 L Procalcitonin Nasal Screen MRSA (PCR) 08/11/21 17:45 WBC RBC Hgb Hct MCV MCH MCHC RDW Plt Count Neut % (Auto) Lymph % (Auto) [place] % (Auto) Eos % (Auto) Baso % (Auto) Neut # (Auto) Lymph # (Auto) [place] # (Auto) Eos # (Auto) Baso # (Auto) ABG pH 7.46 H ABG pCO2 47.2 H ABG pO2 59 L ABG HCO3 34 H ABG Total CO2 35 H ABG O2 Saturation 91 L ABG Base Excess 10.0 H FiO2 85 Sodium Potassium Chloride Carbon Dioxide BUN Creatinine Estimated GFR BUN/Creatinine Ratio Glucose Lactate Calcium Phosphorus Magnesium Total Bilirubin AST ALT Alkaline Phosphatase Total Protein Albumin Globulin Albumin/Globulin Ratio Procalcitonin Nasal Screen MRSA (PCR) [facility] Medical History Alcohol intoxication Closed hip fracture COVID DKA (diabetic ketoacidoses) DKA (diabetic ketoacidosis) Fibromyalgia Gastroesophageal reflux disease Insulin dependent diabetes mellitus Lupus Osteoporosis Surgical History No pertinent past surgical history Family History Mother Diabetes mellitus Congestive heart failure Pancreatic cancer Father Diabetes mellitus Brother Diabetes mellitus Pancreatitis Sister Drug overdose Social History household members: family Smoking Status: Current every day smoker alcohol intake: never Discharge Assessment & Plan Assessment and Plan Assessment: 1. Acute CVA not present on admission last known normal 08/11/2021 2. COVID-19 pneumonia, acute, present on admission 3. Diabetes type 1 4. Lupus 5. Chronic pain syndrome Plan of Treatment: 1. Patient received tPA at 6:30 p.m. on 08/11/21. Neurochecks suggested a new finding and the patient has been requested for transfer to [facility]. 2. Patient has been receiving IV remdesivir, IV dexamethasone, and up to 08/11, daily oral Baricitinab 3. She has been receiving basal insulin as well as correctional scale insulin Total Critical Care Time: 90 minutes. Attestation: The high probability of a clinically significant, sudden or life threatening deterioration of the patient required my full and direct attention, intervention and personal management. Discharge Plan Discharge Plan Disposition: [facility] Discharge Data Primary Care Provider: Jhonny Evans Stroke Onset of Symptoms Date: 08/11/21 Onset of Symptoms Time: 16:00 Reason for No Antithrombin at DC: Contraindicated Reason for No Anticoagulant at DC: Contraindicated VTE Deep Vein Thrombosis/Pulmonary Embolism Present on Admission: No MIPS - Admit I confirm the patient?s Advance Care Plan is present, Code status is documented, Surrogate decision maker is in patient?s record [If Yes, STOP here]: Yes MIPS - DC The patient has current or prior documentation of left ventricular ejection fraction (LVEF) less than 40%, or moderate or severely depressed left ventricular systolic function.: No
[2021-08-12] MEDS: VANCOMYCIN 1,000 MG/200 ML PIGGYBACK 200 MG IV (03:15)
--- NOTE | 2021-08-12 04:25 | PC.NURSE ---
0200 Pt's L pupil changed from 3mm and fixed to 5mm and fixed. ZOFIA Chong notified and at 0220, Dr. Ladd ordered a STAT head CT. Pt left with this RN to CT at 0253 and returned at 0315. 0430 Report given to Dejon SLOAN at [facility] Neuro ICU. [facility] continues to be 16. 0515 Airlift arrives to transfer pt to [facility] Neuro ICU. Per pt's permission Katerina Ashford and Jhonny Johnson were called to be given update. Jennifer did not have a voicemail but a voicemail was left for Majo
--- NOTE | 2021-08-12 05:51 | PC.NURSE ---
0530 Airlift left with pt. Pt was placed on CPAP for transfer and is tolerating well. Pt's belongings placed in two patient belonging bags and given to airlift staff to take with pt. The belingings include glasses, jewelry and an Ipad.
--- NOTE | 2021-08-12 06:00 | DI.RAD.S_ITS ---
PROCEDURE: XR CHEST 1V INDICATIONS: Pneumonia TECHNIQUE: One view of the chest was acquired. COMPARISON: [facility], CR, XR CHEST 1V, 08/11/2021, 1:04. FINDINGS: Surgical changes and devices: None. Lungs and pleura: Worsening low lung volumes. No pneumothorax or pleural effusion. Increasing diffuse bilateral consolidative opacity since yesterday. Mediastinum: Mediastinal contours appear normal. Heart size is normal. Bones and chest wall: No suspicious bony lesions. Overlying soft tissues appear unremarkable. IMPRESSION: Low lung volumes and worsening diffuse bilateral multifocal consolidative opacities. Dictated by: Ricardo Chong M.D. on 08/12/2021 at 10:18 Approved by: Ricardo Chong M.D. on 08/12/2021 at 10:20
== END 2021-08-12 05:30 | disposition short-term general hospital (02) | DRG 981 ==
LOC: ED 12:54 → AC 14:21 → ICU 08-11 01:15
PROVIDERS: Family Medicine; Hospitalist; Internal Medicine; Nurse Practitioner Family; Admitting Provider Student in an Organized Health Care Education/Training Program; Emergency Provider Emergency Medicine; PCP Physician Assistant; Referring Provider Emergency Medicine; Visit Provider Student in an Organized Health Care Education/Training Program
DX: U07.1 COVID-19 (principal); J12.82 Pneumonia due to coronavirus disease 2019; J80 Acute respiratory distress syndrome; I63.9 Cerebral infarction, unspecified; M60.08 Infective myositis, other site; A04.72 Enterocolitis due to Clostridium difficile, not specified as recurrent; G81.94 Hemiplegia, unspecified affecting left nondominant side; E11.40 Type 2 diabetes mellitus with diabetic neuropathy, unspecified; I48.91 Unspecified atrial fibrillation; T21.03XA Burn of unspecified degree of upper back, initial encounter; T79.8XXA Other early complications of trauma, initial encounter; F17.210 Nicotine dependence, cigarettes, uncomplicated; F32.A Depression, unspecified; F41.9 Anxiety disorder, unspecified; E83.42 Hypomagnesemia; R60.0 Localized edema; G89.4 Chronic pain syndrome; R29.722 NIHSS score 22; R29.716 NIHSS score 16; X19.XXXA Contact with other heat and hot substances, initial encounter; Z79.4 Long term (current) use of insulin
CPT/HCPCS: 36415; 36592; 36600; 70450; 70496; 70498; 71045; 74018; 80048; 80053; 80305; 80320; 81001; 82009; 82550; 82805; 82962; 83036; 83605; 83690; 83735; 84100; 84145; 84443; 84484; 84703; 85007; 85025; 85730; 87040; 87070; 87075; 87086; 87205; 87324; 87493; 87633; 87797; 93005; 94640; 94660; 94760; 94762; 96361; 96365; 96375; 99284; J0610; J0692; J0696; J1100; J1650; J1815; J1940; J2270; J2405; J2543; J2997; J3475; P9041

== ENCOUNTER 2021-10-08 19:49 | Emergency (ER) | payer MEDICAID, OTHER, SELFPAY ==
[2021-08-05 15:05] VITALS: BMI 19.5
[2021-10-08] VITALS (8 sets, daily range): BP systolic 100–121; BP diastolic 66–74; PULSE 100–107; RESP 18–31; TEMP 37.2; O2SAT 100; BMI 19.1
[2021-10-08 20:25] LABS: Add Manual Diff / Slide Review NO; Basophils Absolute Auto 0 /uL (0-100); Basophils Percent Auto 0.4 % (0-2); Eosinophils Absolute Auto 0 /uL (0-450); Eosinophils Percent Auto 0.5 % (2-4); Hematocrit 33.3 % (36-46); Hemoglobin 10.4 g/dL (12.0-16.0); Lymphocytes Absolute Auto 1100 /uL (1100-4500); Mean Corpuscular HGB Conc 31.3 % (30-36); Mean Corpuscular Hemoglobin 26.3 PG (26-34); Mean Corpuscular Volume 83.9 fL (80-100); Monocytes Absolute Auto 200 /uL (0-900); Monocytes Percent Auto 2.3 % (3-14); Neutrophils Absolute Auto 8400 /uL (1500-7000); Neutrophils Percent Auto 85.8 % (50-75); Platelet Count 314 X10^3/uL (150-400); Red Blood Cell Count 3.97 X10^6/uL (4.0-5.2); Red Cell Distribution Width 19.2 % (11.6-14.8); White Blood Cell Count 9.7 X10^3/uL (4.5-11.0)
--- NOTE | 2021-10-08 20:36 | ED_ITS ---
HPI - Nausea/Vomiting/Diarrhea General Chief complaint: Nausea/Vomiting/Diarrhea Stated complaint: covid symptoms, type 1 diabetic Time Seen by Provider: 10/08/21 19:53 Source: patient Mode of arrival: Ambulatory History of Present Illness HPI Narrative: Patient is a 46-year-old female brittle insulin-dependent diabetic presenting today with need for COVID test. She said she was exposed 3 days ago. She has had body aches nausea and vomiting. She says that she has had some shortness of breath. She has been in DKA numerous times. Admitted to the ICU 08/05/2021 for DKA and COVID-19. 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 She overall appears better than I have seen her previously. She is not actively vomiting, but feels mildly nauseous and generally weak. Is mostly worried she has COVID. Related Data Home Medications Medication Instructions Recorded Confirmed buspirone 10 mg tablet 2 tab PO TID 12/08/18 08/05/21 cyclobenzaprine 10 mg tablet 10 mg PO TID PRN 12/08/18 08/05/21 duloxetine 60 mg capsule,delayed 60 mg PO DAILY 12/08/18 08/05/21 release gabapentin 600 mg tablet 1.5 tab PO TID 12/08/18 08/05/21 insulin glargine 100 unit/mL (3 40 unit SUBCUT QPM 07/26/21 08/05/21 mL) subcutaneous pen Previous Rx's Medication Instructions Recorded insulin aspart U-100 100 unit/mL 0 unit (0 mL) SUB-Q AC #3 unit 02/12/18 (3 mL) subcutaneous pen (Novolog Flexpen U-100 Insulin aspart) acetaminophen 325 mg tablet 975 mg PO TID PRN #30 tab 12/12/18 ibuprofen 600 mg tablet 600 mg PO Q6H PRN #30 tab 03/21/20 Allergies Allergy/AdvReac Type Severity Reaction Status Date / Time amitriptyline Allergy Intermediate Verified 10/08/21 19:53 sulfasalazine [SULFASALAZINE] Allergy Mild PANCREATITI Verified 10/08/21 19:53 S trazodone AdvReac Intermediate HEART Verified 10/08/21 19:53 PALPITATIONS Review of Systems Review of Systems Narrative: GENERAL: Body aches, fevers not feeling well HEENT: Denies sinus pain, ear pain, sore throat, difficulty swallowing, neck pain RESPIRATORY: Denies dyspnea, cough, wheezing, hemoptysis, sputum. CARDIOVASCULAR: Denies chest pain, palpitations, orthopnea, edema GASTROINTESTINAL: Nausea see HPI : Denies dysuria, frequency, incontinence, hematuria, urinary retention, flank pain. MUSCULOSKELETAL: Denies weakness, joint pain, or bony pain SKIN: No rash, no erythema, no pruritus NEUROLOGIC: Denies weakness, dizziness, headache, numbness, change in speech, confusion PSYCHIATRIC: No concerning psychosocial issues. 12 point review of systems is negative except for those stated above and HPI Patient History Medical History Alcohol intoxication Closed hip fracture COVID DKA (diabetic ketoacidoses) DKA (diabetic ketoacidosis) Fibromyalgia Gastroesophageal reflux disease Insulin dependent diabetes mellitus Lupus Osteoporosis Surgical History No pertinent past surgical history Family History Mother Diabetes mellitus Congestive heart failure Pancreatic cancer Father Diabetes mellitus Brother Diabetes mellitus Pancreatitis Sister Drug overdose Social History household members: family Smoking Status: Former smoker alcohol intake: never Smoking Status: Former smoker alcohol intake frequency: holidays/special occasions only Substance Use Type: does not use Exam Initial Vital Signs Initial Vital Signs: Vital Signs Temperature 99 F 10/08/21 19:54 Pulse Rate 107 H 10/08/21 19:54 Respiratory Rate 18 10/08/21 19:54 Blood Pressure 105/74 10/08/21 19:54 Pulse Oximetry 100 10/08/21 19:54 GENERAL: Chronically ill weak 46-year-old female appears older than stated age HEENT: Head atraumatic,EOMI, pupils reactive, face symmetric, moist mucous membranes CARDIOVASCULAR: Regular rate and rhythm without murmurs, rubs or gallops. RESPIRATORY: Breath sounds equal bilaterally, no wheezes rales or rhonchi. ABDOMEN: Soft, nontender. Normoactive bowel sounds all 4 quadrants. No guarding or rebound. EXTREMITIES: Normal range of motion, no clubbing or edema. Neurovascularly intact NEUROLOGICAL: Alert and oriented x4. SKIN: Warm, dry, no laceration, no petechiae, no rashes or lesions. Course Orders Ordered: ED Orders 10/08/21 19:52 COVID19 -Nasal swab/Pre-Proc Stat 10/08/21 20:12 Lactate (Lactic Acid) Stat 10/08/21 20:13 CBC Auto Diff [Complete Blood Count AUTO DIFF] Stat CMP [Comprehensive Metabolic Panel] Stat Ketones (Beta-Hydroxybutyrate) Stat Lipase Stat 10/08/21 20:41 XR chest 1V Stat 10/08/21 21:50 Venous Blood Gas Stat Discontinued Medications Sodium Chloride (Normal Saline 0.9%) 1,000 mls @ 1,000 mls/hr IV BOLUS ONE Stop: 10/08/21 21:40 Last Infusion: 10/08/21 21:52 Dose: 0 mls/hr Documented by: Admin: 10/08/21 20:50 Dose: 1,000 mls/hr Documented by: CHERIE Sodium Chloride (Normal Saline 0.9%) 1,000 mls @ 1,000 mls/hr IV BOLUS ONE Stop: 10/08/21 22:50 Last Infusion: 10/08/21 22:58 Dose: 0 mls/hr Documented by: Admin: 10/08/21 21:54 Dose: 1,000 mls/hr Documented by: CHERIE Ketorolac Tromethamine (Ketorolac 30 Mg/Ml Vial) 15 mg IV NOW ONE Stop: 10/08/21 21:39 Last Admin: 10/08/21 21:55 Dose: 15 mg Documented by: CHERIE Ondansetron HCl (Ondansetron 4 Mg/2 Ml Inj) 4 mg IV NOW ONE Stop: 10/08/21 20:42 Last Admin: 10/08/21 20:51 Dose: 4 mg Documented by: CHERIE Vital Signs Vital signs: Vital Signs - 8 hr 10/08/21 19:54 10/08/21 20:02 10/08/21 20:30 Temperature 99 F Pulse Rate 107 H 105 H 103 H Respiratory Rate 18 Blood Pressure 105/74 100/69 Pulse Oximetry 100 100 100 10/08/21 21:00 10/08/21 21:30 10/08/21 21:31 Temperature Pulse Rate 105 H 100 H 101 H Respiratory Rate 30 H 31 H Blood Pressure 102/66 119/70 Pulse Oximetry 100 100 100 10/08/21 22:00 10/08/21 22:30 Temperature Pulse Rate 102 H 105 H Respiratory Rate 25 H 26 H Blood Pressure 107/74 121/74 Pulse Oximetry 100 100 MDM - Nausea/Vomiting/Diarrhea Lab Data Result diagrams: 10/08/21 20:13 10/08/21 20:13 Labs: Lab Results 10/08/21 10/08/21 10/08/21 Range/Units 19:52 20:12 20:13 WBC 9.7 (4.5-11.0) X10^3/uL RBC 3.97 L (4.0-5.2) X10^6/uL Hgb 10.4 L (12.0-16.0) g/dL Hct 33.3 L (36-46) % MCV 83.9 (80-100) fL MCH 26.3 (26-34) PG MCHC 31.3 (30-36) % RDW 19.2 H (11.6-14.8) % Plt Count 314 (150-400) X10^3/uL Neut % (Auto) 85.8 H (50-75) % Lymph % (Auto) 11.0 L (25-40) % Garland % (Auto) 2.3 L (3-14) % Eos % (Auto) 0.5 L (2-4) % Baso % (Auto) 0.4 (0-2) % Neut # (Auto) 8400 H (3226-3908) /uL Lymph # (Auto) 1100 (6821-8861) /uL Garland # (Auto) 200 (0-900) /uL Eos # (Auto) 0 (0-450) /uL Baso # (Auto) 0 (0-100) /uL VBG pH (7.33-7.43) VBG pCO2 (45-50) mmHg VBG pO2 (35-45) mmHg VBG HCO3 (23-28) mmol/L VBG Total CO2 (24-29) mmol/L VBG O2 Saturation (70-75) % VBG Base Excess (0-4) mmol/L Sodium (137-145) mmol/L Potassium (3.4-5.1) mmol/L Chloride (98-107) mmol/L Carbon Dioxide (22-32) mmol/L BUN (7-17) mg/dL Creatinine (0.52-1.04) mg/dL Estimated GFR (>60) mL/min BUN/Creatinine Ratio (6-22) Glucose (70-100) mg/dL Lactate 0.8 (0.7-2.1) mmol/L Calcium (8.4-10.2) mg/dL Total Bilirubin (0.2-1.3) mg/dL AST (14-36) IU/L ALT (<35) IU/L Alkaline Phosphatase (38-126) U/L Total Protein (6.3-8.2) g/dL Albumin (3.5-5.0) g/dL Globulin (1.7-4.1) g/dL Albumin/Globulin Ratio (1.0-2.8) Lipase (23-300) U/L Ketones (<0.27) mmol/L SARS-CoV-2 (PCR) Negative (Negative) 10/08/21 10/08/21 10/08/21 Range/Units 20:13 20:13 20:13 WBC (4.5-11.0) X10^3/uL RBC (4.0-5.2) X10^6/uL Hgb (12.0-16.0) g/dL Hct (36-46) % MCV (80-100) fL MCH (26-34) PG MCHC (30-36) % RDW (11.6-14.8) % Plt Count (150-400) X10^3/uL Neut % (Auto) (50-75) % Lymph % (Auto) (25-40) % Garland % (Auto) (3-14) % Eos % (Auto) (2-4) % Baso % (Auto) (0-2) % Neut # (Auto) (9791-3653) /uL Lymph # (Auto) (4275-8574) /uL Garland # (Auto) (0-900) /uL Eos # (Auto) (0-450) /uL Baso # (Auto) (0-100) /uL VBG pH (7.33-7.43) VBG pCO2 (45-50) mmHg VBG pO2 (35-45) mmHg VBG HCO3 (23-28) mmol/L VBG Total CO2 (24-29) mmol/L VBG O2 Saturation (70-75) % VBG Base Excess (0-4) mmol/L Sodium 136 L (137-145) mmol/L Potassium 3.7 (3.4-5.1) mmol/L Chloride 111 H (98-107) mmol/L Carbon Dioxide 15 L (22-32) mmol/L BUN 16 (7-17) mg/dL Creatinine 0.46 L (0.52-1.04) mg/dL Estimated GFR > 60.0 (>60) mL/min BUN/Creatinine Ratio 34.8 H (6-22) Glucose 235 H (70-100) mg/dL Lactate (0.7-2.1) mmol/L Calcium 8.3 L (8.4-10.2) mg/dL Total Bilirubin 0.5 (0.2-1.3) mg/dL AST 56 H (14-36) IU/L ALT 30 (<35) IU/L Alkaline Phosphatase 259 H (38-126) U/L Total Protein 6.6 (6.3-8.2) g/dL Albumin 3.2 L (3.5-5.0) g/dL Globulin 3.4 (1.7-4.1) g/dL Albumin/Globulin Ratio 0.9 L (1.0-2.8) Lipase < 10 L (23-300) U/L Ketones 0.83 H (<0.27) mmol/L SARS-CoV-2 (PCR) (Negative) 10/08/21 Range/Units 21:50 WBC (4.5-11.0) X10^3/uL RBC (4.0-5.2) X10^6/uL Hgb (12.0-16.0) g/dL Hct (36-46) % MCV (80-100) fL MCH (26-34) PG MCHC (30-36) % RDW (11.6-14.8) % Plt Count (150-400) X10^3/uL Neut % (Auto) (50-75) % Lymph % (Auto) (25-40) % Garland % (Auto) (3-14) % Eos % (Auto) (2-4) % Baso % (Auto) (0-2) % Neut # (Auto) (1695-7307) /uL Lymph # (Auto) (7984-3594) /uL Garland # (Auto) (0-900) /uL Eos # (Auto) (0-450) /uL Baso # (Auto) (0-100) /uL VBG pH 7.34 (7.33-7.43) VBG pCO2 25.0 L (45-50) mmHg VBG pO2 58 H (35-45) mmHg VBG HCO3 14 L (23-28) mmol/L VBG Total CO2 14 L (24-29) mmol/L VBG O2 Saturation 89 H (70-75) % VBG Base Excess -12.0 L (0-4) mmol/L Sodium (137-145) mmol/L Potassium (3.4-5.1) mmol/L Chloride (98-107) mmol/L Carbon Dioxide (22-32) mmol/L BUN (7-17) mg/dL Creatinine (0.52-1.04) mg/dL Estimated GFR (>60) mL/min BUN/Creatinine Ratio (6-22) Glucose (70-100) mg/dL Lactate (0.7-2.1) mmol/L Calcium (8.4-10.2) mg/dL Total Bilirubin (0.2-1.3) mg/dL AST (14-36) IU/L ALT (<35) IU/L Alkaline Phosphatase (38-126) U/L Total Protein (6.3-8.2) g/dL Albumin (3.5-5.0) g/dL Globulin (1.7-4.1) g/dL Albumin/Globulin Ratio (1.0-2.8) Lipase (23-300) U/L Ketones (<0.27) mmol/L SARS-CoV-2 (PCR) (Negative) Imaging Data Chest x-ray: Radiologist's Impression: PROCEDURE:? XR CHEST 1V ? INDICATIONS:? short of breath ? TECHNIQUE:? One view of the chest was acquired.? ? COMPARISON:? [facility], , XR CHEST 1V, 08/12/2021, 2:57. ? FINDINGS:? ? Surgical changes and devices:? None.? ? Lungs and pleura:? Mild pulmonary vascular congestion is seen.? No definite focal infiltrate.? No pleural effusions or pneumothorax.? ? Mediastinum:? Mediastinal contours appear normal.? Heart size is normal.? ? Bones and chest wall:? No suspicious bony lesions.? Overlying soft tissues appear unremarkable.? ? IMPRESSION:? Mild congestion.? No definite focal infiltrate.? No pleural ef fusion or pneumothorax. ? ? Dictated by: Levy Condon M.D. on 10/08/2021 at 21:24 ? ? MDM Narrative Medical decision making narrative: Patient has an anion gap of 10 pH of 7.34 ketones but no evidence DKA at this time. She is feeling better after 2 L of fluid. COVID is negative. However suspect that she still may have it. I recommend rechecking about 2 days. Overall feeling better. At this time no indication for admission. Discharge Plan Departure Patient Disposition: Home Clinical Impression: Upper respiratory infection Instructions: DI for COVID-19 (Suspected or Confirmed ) Activity Restrictions/Additional Instructions: *You have been diagnosed with I suspect he may have COVID-19 or another upper respiratory virus *What to do: I strongly recommend that you retest in about 2 days. *Continue to take medications as directed *Follow up with your primary care provider in 2-3 days or call [phone] *Return to ER if you should have increasing abdominal pain nausea vomiting shortness of breath any new, worsening or concerning symptoms Prescriptions: No Action insulin aspart U-100 [Novolog Flexpen U-100 Insulin] 100 unit/mL Insulin Pen 0 unit Sub-Q AC Qty: 3 0RF Rx Instructions: 1-3 UNITS TID buspirone 10 mg Tablet 2 tab PO TID 0RF cyclobenzaprine 10 mg Tablet 10 mg PO TID PRN (Reason: pain) 0RF duloxetine 60 mg Capsule,Delayed Release(Dr/Ec) 60 mg PO DAILY 0RF Rx Instructions: states her doctor stopped this on tuesday gabapentin 600 mg Tablet 1.5 tab PO TID 0RF acetaminophen 325 mg Tablet 975 mg PO TID PRN (Reason: Pain, Moderate) Qty: 30 0RF insulin glargine 100 unit/mL (3 mL) Insulin Pen 40 unit SUBCUT QPM 0RF ibuprofen 600 mg tablet 600 mg PO Q6H PRN (Reason: pain) Qty: 30 0RF Referrals: Jhonny Evans PA-C [Primary Care Provider] -
--- NOTE | 2021-10-08 20:41 | DI.RAD.S_ITS ---
PROCEDURE: XR CHEST 1V INDICATIONS: short of breath TECHNIQUE: One view of the chest was acquired. COMPARISON: [facility], CR, XR CHEST 1V, 08/12/2021, 2:57. FINDINGS: Surgical changes and devices: None. Lungs and pleura: Mild pulmonary vascular congestion is seen. No definite focal infiltrate. No pleural effusions or pneumothorax. Mediastinum: Mediastinal contours appear normal. Heart size is normal. Bones and chest wall: No suspicious bony lesions. Overlying soft tissues appear unremarkable. IMPRESSION: Mild congestion. No definite focal infiltrate. No pleural effusion or pneumothorax. Dictated by: Levy Condon M.D. on 10/08/2021 at 21:24 Approved by: Levy Condon M.D. on 10/08/2021 at 21:25
[2021-10-08 20:43] LABS: Alanine Aminotransferase 30 IU/L (<35); Albumin 3.2 g/dL (3.5-5.0); Albumin Globulin Ratio 0.9 (1.0-2.8); Alkaline Phosphatase 259 U/L (38-126); Aspartate Aminotransferase 56 IU/L (14-36); BUN Creatinine Ratio 34.8 (6-22); Bilirubin Total 0.5 mg/dL (0.2-1.3); Blood Urea Nitrogen 16 mg/dL (7-17); Calcium 8.3 mg/dL (8.4-10.2); Carbon Dioxide 15 mmol/L (22-32); Chloride 111 mmol/L (98-107); Estimated Glomerular Filt Rate > 60.0 mL/min (>60); Globulin 3.4 g/dL (1.7-4.1); Glucose 235 mg/dL (70-100); Sodium 136 mmol/L (137-145); Total Protein 6.6 g/dL (6.3-8.2)
[2021-10-08 20:43] LABS: COVID19 -Nasal RAPID Negative (Negative)
[2021-10-08 20:46] LABS: HEMOLYSIS 74 (0-50)
[2021-10-08 20:47] LABS: Potassium 3.7 mmol/L (3.4-5.1)
[2021-10-08] MEDS: SODIUM CHLORIDE 0.9% 1,000 ML 1000 ML IV ×2 (20:50→21:54)
[2021-10-08] MEDS: ONDANSETRON 4 MG/2 ML INJ IV (20:51)
[2021-10-08 20:59] LABS: Lipase < 10 U/L (23-300)
[2021-10-08 21:16] LABS: Lactate (Lactic Acid) 0.8 mmol/L (0.7-2.1)
[2021-10-08 21:19] LABS: Ketones (Beta-Hydroxybutyrate) 0.83 mmol/L (<0.27)
[2021-10-08] MEDS: KETOROLAC 30 MG/ML VIAL 15 MG IV (21:55)
[2021-10-08 22:22] LABS: HCO3 VBG 14 mmol/L (23-28); Oxygen Saturation VBG 89 % (70-75); PO2 VBG 58 mmHg (35-45); Total CO2 VBG 14 mmol/L (24-29); pH VBG 7.34 (7.33-7.43)
== END 2021-10-08 22:58 | disposition home or self-care (01) ==
PROVIDERS: Emergency Provider Emergency Medicine; PCP Physician Assistant
DX: J06.9 Acute upper respiratory infection, unspecified (principal); Z87.891 Personal history of nicotine dependence; Z86.16 Personal history of COVID-19; Z20.822 Contact with and (suspected) exposure to COVID-19
CPT/HCPCS: 36415; 71045; 80053; 82009; 82805; 83605; 83690; 85025; 87635; 96361; 96374; 96375; 99284; C9803; J1885; J2405

== ENCOUNTER 2021-10-19 20:39 | Emergency (ER) | payer MEDICAID, OTHER, SELFPAY ==
[2021-08-05 15:05] VITALS: BMI 19.5
[2021-10-19] VITALS (10 sets, daily range): BP systolic 86–108; BP diastolic 53–74; PULSE 91–105; RESP 18–26; TEMP 36.3; O2SAT 100; BMI 19.1
[2021-10-19 21:14] LABS: COVID19 -Nasal RAPID Negative (Negative)
--- NOTE | 2021-10-19 21:39 | ED.NAVMDI ---
HPI - Nausea/Vomiting/Diarrhea General Chief complaint: Abdominal Pain Stated complaint: throwing up, unable to keep stuff down, aches Time Seen by Provider: 10/19/21 21:01 Source: patient Mode of arrival: Wheelchair History of Present Illness HPI Narrative: 46-year-old female former smoker with history of diabetes presents with a day or 2 of nausea, vomiting and generalized body aches. She denies any fever chills. She has no runny nose, sore throat or cough. She states she has had no change in her diet or medications and denies missing any doses of her diabetic regimen. She denies exposure to persons with known or suspicion of COVID. She feels a bit fatigued. She admits to generalized body pain slightly worse than the normal aches and pain she deals with. She is chronically ill and frail and on a good day is dizzy, weak and lightheaded and requires a walker for ambulation. Related Data Home Medications Medication Instructions Recorded Confirmed buspirone 10 mg tablet 2 tab PO TID 12/08/18 08/05/21 cyclobenzaprine 10 mg tablet 10 mg PO TID PRN 12/08/18 08/05/21 duloxetine 60 mg capsule,delayed 60 mg PO DAILY 12/08/18 08/05/21 release gabapentin 600 mg tablet 1.5 tab PO TID 12/08/18 08/05/21 insulin glargine 100 unit/mL (3 40 unit SUBCUT QPM 07/26/21 08/05/21 mL) subcutaneous pen Previous Rx's Medication Instructions Recorded insulin aspart U-100 100 unit/mL 0 unit (0 mL) SUB-Q AC #3 unit 02/12/18 (3 mL) subcutaneous pen (Novolog Flexpen U-100 Insulin aspart) acetaminophen 325 mg tablet 975 mg PO TID PRN #30 tab 12/12/18 ibuprofen 600 mg tablet 600 mg PO Q6H PRN #30 tab 03/21/20 cefuroxime axetil 500 mg tablet 500 mg PO BID #14 tab 10/20/21 ondansetron 4 mg disintegrating 4 mg PO TID-QID PRN #10 tab 10/20/21 tablet Allergies Allergy/AdvReac Type Severity Reaction Status Date / Time amitriptyline Allergy Intermediate Verified 10/08/21 19:53 sulfasalazine [SULFASALAZINE] Allergy Mild PANCREATITI Verified 10/08/21 19:53 S trazodone AdvReac Intermediate HEART Verified 10/08/21 19:53 PALPITATIONS Review of Systems Review of Systems Narrative: GENERAL: See HPI HEENT: Denies sinus pain, ear pain, sore throat, difficulty swallowing, dizziness. RESPIRATORY: Denies dyspnea, cough, wheezing, hemoptysis, sputum. CARDIOVASCULAR: Denies chest pain, palpitations, orthopnea, edema, GASTROINTESTINAL: See HPI : Denies dysuria, frequency, incontinence, hematuria, urinary retention. MUSCULOSKELETAL: denies weakness, joint pain, or bony pain SKIN: Denies rash, skin lesions, or other NEUROLOGIC: Denies weakness, headache, numbness, change in speech, confusion, seizures, incoordination. PSYCHIATRIC: No concerning psychosocial issues. 12 point review of systems is negative except for those stated above Patient History Medical History Alcohol intoxication Closed hip fracture COVID DKA (diabetic ketoacidoses) DKA (diabetic ketoacidosis) Fibromyalgia Gastroesophageal reflux disease Insulin dependent diabetes mellitus Lupus Osteoporosis Surgical History No pertinent past surgical history Family History Mother Diabetes mellitus Congestive heart failure Pancreatic cancer Father Diabetes mellitus Brother Diabetes mellitus Pancreatitis Sister Drug overdose Social History household members: family Smoking Status: Former smoker alcohol intake: never Smoking Status: Former smoker alcohol intake frequency: holidays/special occasions only Substance Use Type: does not use Exam Narrative Exam Narrative: GENERAL: [46 year old patient appears older than stated age. Frail, thin, holding emesis bag HEAD: Atraumatic. Normocephalic. EYES: Pupils equal round and reactive. Extraocular motions intact. No scleral icterus. No injection or drainage. ENT: Dry mucous membranes Nose without bleeding, purulent drainage. Throat without erythema, tonsillar hypertrophy or exudate. Airway patent. NECK: Trachea midline. Non tender CARDIOVASCULAR: Regular rate and rhythm without murmurs, gallops, or rubs. RESPIRATORY: Clear to auscultation. Breath sounds equal bilaterally. No wheezes, rales, or rhonchi. GASTROINTESTINAL: Abdomen soft, non-tender, nondistended. Bowel sounds present EXTREMITIES: No edema or joint tenderness. BACK: Nontender without deformity or crepitance. No flank tenderness. NEURO: AOx3. SKIN: No rash or erythema of visible areas Initial Vital Signs Initial Vital Signs: Vital Signs Temperature 97.4 F L 10/19/21 20:45 Pulse Rate 105 H 10/19/21 20:45 Respiratory Rate 18 10/19/21 20:45 Blood Pressure 86/53 L 10/19/21 20:45 Pulse Oximetry 100 10/19/21 20:45 Course Orders Ordered: Discontinued Medications Lactated Ringer's (Lactated Ringers) 1,000 mls @ 1,000 mls/hr IV BOLUS ONE Stop: 10/19/21 22:01 Last Infusion: 10/19/21 23:53 Dose: 0 mls/hr Documented by: Admin: 10/19/21 21:50 Dose: 1,000 mls/hr Documented by: MARLON Sodium Chloride (Normal Saline 0.9%) 1,000 mls @ 1,000 mls/hr IV BOLUS ONE Stop: 10/20/21 03:55 Last Infusion: 10/20/21 05:04 Dose: 0 mls/hr Documented by: Admin: 10/20/21 03:04 Dose: 1,000 mls/hr Documented by: MARQUEZ Ketorolac Tromethamine (Ketorolac 30 Mg/Ml Vial) 15 mg IV NOW ONE Stop: 10/20/21 03:15 Last Admin: 10/20/21 03:19 Dose: 15 mg Documented by: MARQUEZ Metoclopramide HCl (Metoclopramide 10 Mg/2 Ml Inj) 10 mg IV NOW ONE Stop: 10/20/21 00:59 Last Admin: 10/20/21 01:19 Dose: 10 mg Documented by: TIMUR Ondansetron HCl (Ondansetron 4 Mg/2 Ml Inj) 4 mg IV NOW ONE Stop: 10/20/21 03:15 Last Admin: 10/20/21 03:19 Dose: 4 mg Documented by: MARQUEZ Ondansetron HCl (Ondansetron 4 Mg Odt Prepack) 1 bottle MISC SEEINSTR ONE Stop: 10/20/21 04:54 Last Admin: 10/20/21 05:39 Dose: 1 bottle Documented by: TIMUR Reevaluation(s) Reevaluation #1: Patient improving quite difficult to get IV and blood. Reevaluation #2: Patient has moderate improvement and symptoms after above stated therapies, requesting a different antinausea medication, will order ondansetron Vital Signs Vital signs: Vital Signs - 8 hr 10/19/21 21:35 10/19/21 21:53 10/19/21 22:00 Pulse Rate 98 H 96 H 95 H Respiratory Rate 22 22 21 Blood Pressure 88/60 L 91/63 Pulse Oximetry 100 100 100 10/19/21 22:15 10/19/21 22:30 10/19/21 22:45 Pulse Rate 93 H 91 H 92 H Respiratory Rate 25 H 26 H 24 Blood Pressure 96/70 96/68 108/74 Pulse Oximetry 100 100 100 10/19/21 23:00 10/19/21 23:08 10/19/21 23:30 Pulse Rate 91 H 92 H 92 H Respiratory Rate 26 H 21 23 Blood Pressure 103/69 Pulse Oximetry 100 100 100 10/20/21 00:00 10/20/21 00:30 10/20/21 01:00 Pulse Rate 91 H 96 H 90 Respiratory Rate 22 20 20 Blood Pressure Pulse Oximetry 100 100 100 10/20/21 01:30 10/20/21 01:47 10/20/21 02:00 Pulse Rate 90 105 H 98 H Respiratory Rate 25 H 21 Blood Pressure 102/66 Pulse Oximetry 100 96 100 10/20/21 02:30 10/20/21 02:52 Pulse Rate 95 H 97 H Respiratory Rate 23 21 Blood Pressure 98/66 Pulse Oximetry 100 100 MDM - Nausea/Vomiting/Diarrhea Lab Data Result diagrams: 10/19/21 23:40 10/19/21 23:40 Labs: Lab Results 10/19/21 10/19/21 10/19/21 Range/Units 20:55 21:49 23:40 WBC 10.6 (4.5-11.0) X10^3/uL RBC 4.31 (4.0-5.2) X10^6/uL Hgb 11.1 L (12.0-16.0) g/dL Hct 34.5 L (36-46) % MCV 80.2 (80-100) fL MCH 25.7 L (26-34) PG MCHC 32.0 (30-36) % RDW 20.7 H (11.6-14.8) % Plt Count 925 H* (150-400) X10^3/uL Neut % (Auto) 78.1 H (50-75) % Lymph % (Auto) 14.8 L (25-40) % Kenton % (Auto) 6.4 (3-14) % Eos % (Auto) 0.3 L (2-4) % Baso % (Auto) 0.4 (0-2) % Neut # (Auto) 8300 H (4711-2988) /uL Lymph # (Auto) 1600 (0991-3065) /uL Kenton # (Auto) 700 (0-900) /uL Eos # (Auto) 0 (0-450) /uL Baso # (Auto) 0 (0-100) /uL Platelet Estimate Increased on smear RBC Morphology See below Hypochromasia 2+ H Anisocytosis 2+ H Juany Cells 2+ H VBG pH 7.37 (7.33-7.43) VBG pCO2 30.6 L (45-50) mmHg VBG pO2 42 (35-45) mmHg VBG HCO3 18 L (23-28) mmol/L VBG Total CO2 19 L (24-29) mmol/L VBG O2 Saturation 77 H (70-75) % VBG Base Excess -8.0 L (0-4) mmol/L Sodium (137-145) mmol/L Potassium (3.4-5.1) mmol/L Chloride (98-107) mmol/L Carbon Dioxide (22-32) mmol/L BUN (7-17) mg/dL Creatinine (0.52-1.04) mg/dL Estimated GFR (>60) mL/min BUN/Creatinine Ratio (6-22) Glucose (70-100) mg/dL Calcium (8.4-10.2) mg/dL Total Bilirubin (0.2-1.3) mg/dL AST (14-36) IU/L ALT (<35) IU/L Alkaline Phosphatase (38-126) U/L Total Protein (6.3-8.2) g/dL Albumin (3.5-5.0) g/dL Globulin (1.7-4.1) g/dL Albumin/Globulin Ratio (1.0-2.8) Lipase (23-300) U/L Urine Color Urine Appearance Urine pH (4.5-8.0) Ur Specific [place] (1.000-1.035) Urine Protein (Negative) Urine Glucose (UA) (Negative) g/dL Urine Ketones (NEGATIVE) Urine Occult Blood (Negative) Urine Nitrate (Negative) Urine Bilirubin (NEGATIVE) Urine Urobilinogen (0.2) E.U./dL Ur Leukocyte Esterase (NEGATIVE) Urine RBC (0-5/HPF) Urine WBC (0-5/HPF) Ur Squamous Epith Cells (0-5/HPF) Urine Bacteria (None) Ur Culture Indicated? Ketones (<0.27) mmol/L SARS-CoV-2 (PCR) Negative (Negative) 10/19/21 10/19/21 10/20/21 Range/Units 23:40 23:40 01:45 WBC (4.5-11.0) X10^3/uL RBC (4.0-5.2) X10^6/uL Hgb (12.0-16.0) g/dL Hct (36-46) % MCV (80-100) fL MCH (26-34) PG MCHC (30-36) % RDW (11.6-14.8) % Plt Count (150-400) X10^3/uL Neut % (Auto) (50-75) % Lymph % (Auto) (25-40) % Kenton % (Auto) (3-14) % Eos % (Auto) (2-4) % Baso % (Auto) (0-2) % Neut # (Auto) (0329-7207) /uL Lymph # (Auto) (5332-7935) /uL Kenton # (Auto) (0-900) /uL Eos # (Auto) (0-450) /uL Baso # (Auto) (0-100) /uL Platelet Estimate RBC Morphology Hypochromasia Anisocytosis Juany Cells VBG pH (7.33-7.43) VBG pCO2 (45-50) mmHg VBG pO2 (35-45) mmHg VBG HCO3 (23-28) mmol/L VBG Total CO2 (24-29) mmol/L VBG O2 Saturation (70-75) % VBG Base Excess (0-4) mmol/L Sodium 136 L (137-145) mmol/L Potassium 3.3 L (3.4-5.1) mmol/L Chloride 106 (98-107) mmol/L Carbon Dioxide 18 L (22-32) mmol/L BUN 10 (7-17) mg/dL Creatinine 0.55 (0.52-1.04) mg/dL Estimated GFR > 60.0 (>60) mL/min BUN/Creatinine Ratio 18.2 (6-22) Glucose 301 H (70-100) mg/dL Calcium 8.3 L (8.4-10.2) mg/dL Total Bilirubin 0.8 (0.2-1.3) mg/dL AST 125 H (14-36) IU/L ALT 44 H (<35) IU/L Alkaline Phosphatase 296 H (38-126) U/L Total Protein 6.7 (6.3-8.2) g/dL Albumin 3.1 L (3.5-5.0) g/dL Globulin 3.6 (1.7-4.1) g/dL Albumin/Globulin Ratio 0.9 L (1.0-2.8) Lipase 15 L (23-300) U/L Urine Color Yellow Urine Appearance Cloudy Urine pH 5.0 (4.5-8.0) Ur Specific [place] 1.020 (1.000-1.035) Urine Protein 1+ H (Negative) Urine Glucose (UA) 1+ H (Negative) g/dL Urine Ketones Negative (NEGATIVE) Urine Occult Blood 3+ H (Negative) Urine Nitrate Positive H (Negative) Urine Bilirubin Negative (NEGATIVE) Urine Urobilinogen 0.2 (0.2) E.U./dL Ur Leukocyte Esterase 1+ H (NEGATIVE) Urine RBC 10-30/hpf H (0-5/HPF) Urine WBC >100/hpf H (0-5/HPF) Ur Squamous Epith Cells 1-5 /hpf (0-5/HPF) Urine Bacteria Many (>30) H (None) Ur Culture Indicated? Specimen cultured Ketones 0.20 (<0.27) mmol/L SARS-CoV-2 (PCR) (Negative) Imaging Data Abdominal x-ray: Radiologist's Impression: [address] [address] XRay Report Signed Patient: Valerie Garnica I MR#: [id number] : 1975 Acct:[id number] Age/Sex: 46 / F Date of Service: 10/20/21 Loc: ED Accession Number: [id number] ?? Procedure: XR acute abdomen series Ordering Provider: Stephane Borden D.O. PROCEDURE:? XR ACUTE ABDOMEN SERIES ? INDICATIONS:? nausea, vomiting, diarrhea ? TECHNIQUE:? One view chest and two views of the abdomen were acquired.? ? COMPARISON:? [facility], , ABDOMEN ACUTE SERIES, 03/16/2015, 20:32. ? FINDINGS:? ? Surgical changes and devices:? Partially hip fixation is. ? Chest:? Lungs are clear.? Heart size is normal.? No pleural effusions.? No pneumoperitoneum.? ? Abdomen:? Bowel gas pattern demonstrates significant colonic stool.? No suspicious calcifications.? Visualized solid organ contours appear normal.? ? Bones:? No suspicious bony lesions.? ? IMPRESSION:? Significant colonic stool consistent constipation.? No gross obstruction. ? ? Dictated by: Jessica Tovar M.D. on 10/20/2021 at 2:02 ? ? Approved by: Jessica Tovar M.D. on 10/20/2021 at 2:02 ? [facility] Narrative Medical decision making narrative: Frail and chronically ill female presents with nausea, vomiting and feeling unwell for the past day or 2. Multiple diagnoses considered but most concerned about possibility of diabetic emergency such as DKA and COVID. She is not acidotic on VBG and has no ketones and AG of 12. Imaging demonstrates a large stool burden but no evidence of bowel obstruction. She is given 2 L of fluid and feels much better. Vitals have improved, she is no longer vomiting, pain is well controlled and she is tolerating orals. She is given return precautions and questions have been answered to her apparent satisfaction Discharge Plan Departure Patient Disposition: Home Clinical Impression: Nausea & vomiting, Constipation, UTI (urinary tract infection) Instructions: DI for Urinary Tract Infection (UTI), DI for Constipation Activity Restrictions/Additional Instructions: *You have been diagnosed with [acute nausea, vomiting, constipation and urinary tract infection. Your labs and response to therapies have been very reassuring. There is no indication of DKA or other significant diagnosis that would require hospitalization. *What to do: *Please continue to take your regular medications as directed. [x ] New medication prescriptions sent to your pharmacy: [[facility] ] [ ] New medication written as a paper prescription [ ] No new medications given *Please follow up with your primary care provider in 2-3 days, call for an appointment. Let them know you were seen in the Emergency Department and that we ask that you be seen in follow up. We will electronically transmit a record of today's note if your PCP is in our system *If you do not have a primary care provider please contact the [facility] Resource line at [phone]. They will ask some questions about your medical history and help get you set up with a doctor in the community. *Return to Emergency Department if you should have any new, worsening or concerning symptoms, such as [fever greater than 101 F, shaking chills, worsening pain, persistent vomiting or other bothersome symptoms] Prescriptions: New cefuroxime axetil 500 mg tablet 500 mg PO BID Qty: 14 0RF ondansetron 4 mg tablet,disintegrating 4 mg PO TID-QID PRN (Reason: nausea and vomiting) Qty: 10 0RF No Action insulin aspart U-100 [Novolog Flexpen U-100 Insulin] 100 unit/mL Insulin Pen 0 unit Sub-Q AC Qty: 3 0RF Rx Instructions: 1-3 UNITS TID buspirone 10 mg Tablet 2 tab PO TID 0RF cyclobenzaprine 10 mg Tablet 10 mg PO TID PRN (Reason: pain) 0RF duloxetine 60 mg Capsule,Delayed Release(Dr/Ec) 60 mg PO DAILY 0RF Rx Instructions: states her doctor stopped this on tuesday gabapentin 600 mg Tablet 1.5 tab PO TID 0RF acetaminophen 325 mg Tablet 975 mg PO TID PRN (Reason: Pain, Moderate) Qty: 30 0RF insulin glargine 100 unit/mL (3 mL) Insulin Pen 40 unit SUBCUT QPM 0RF ibuprofen 600 mg tablet 600 mg PO Q6H PRN (Reason: pain) Qty: 30 0RF Referrals: Jhonny Evans PA-C [Primary Care Provider] -
[2021-10-19] MEDS: LACTATED RINGERS 1,000 ML 1000 ML IV (21:50)
[2021-10-19 21:56] LABS: HCO3 VBG 18 mmol/L (23-28); PCO2 VBG 30.6 mmHg (45-50); PO2 VBG 42 mmHg (35-45)
[2021-10-19 21:57] LABS: Oxygen Saturation VBG 77 % (70-75); Total CO2 VBG 19 mmol/L (24-29); pH VBG 7.37 (7.33-7.43)
[2021-10-20] VITALS (14 sets, daily range): BP systolic 98–102; BP diastolic 66; PULSE 90–105; RESP 20–45; O2SAT 96–100
[2021-10-20 00:14] LABS: Alanine Aminotransferase 44 IU/L (<35); Albumin 3.1 g/dL (3.5-5.0); Albumin Globulin Ratio 0.9 (1.0-2.8); Alkaline Phosphatase 296 U/L (38-126); Aspartate Aminotransferase 125 IU/L (14-36); BUN Creatinine Ratio 18.2 (6-22); Bilirubin Total 0.8 mg/dL (0.2-1.3); Blood Urea Nitrogen 10 mg/dL (7-17); Calcium 8.3 mg/dL (8.4-10.2); Carbon Dioxide 18 mmol/L (22-32); Chloride 106 mmol/L (98-107); Estimated Glomerular Filt Rate > 60.0 mL/min (>60); Globulin 3.6 g/dL (1.7-4.1); Glucose 301 mg/dL (70-100); HEMOLYSIS < 15 (0-50); Lipase 15 U/L (23-300); Potassium 3.3 mmol/L (3.4-5.1); Sodium 136 mmol/L (137-145); Total Protein 6.7 g/dL (6.3-8.2)
[2021-10-20 00:37] LABS: Add Manual Diff / Slide Review SLIDE REVIEW; Basophils Absolute Auto 0 /uL (0-100); Basophils Percent Auto 0.4 % (0-2); Eosinophils Absolute Auto 0 /uL (0-450); Eosinophils Percent Auto 0.3 % (2-4); Hematocrit 34.5 % (36-46); Hemoglobin 11.1 g/dL (12.0-16.0); Lymphocytes Absolute Auto 1600 /uL (1100-4500); Lymphocytes Percent Auto 14.8 % (25-40); Mean Corpuscular Hemoglobin 25.7 PG (26-34); Mean Corpuscular Volume 80.2 fL (80-100); Monocytes Absolute Auto 700 /uL (0-900); Monocytes Percent Auto 6.4 % (3-14); Neutrophils Absolute Auto 8300 /uL (1500-7000); Neutrophils Percent Auto 78.1 % (50-75); Red Blood Cell Count 4.31 X10^6/uL (4.0-5.2); Red Cell Distribution Width 20.7 % (11.6-14.8); White Blood Cell Count 10.6 X10^3/uL (4.5-11.0)
--- NOTE | 2021-10-20 00:58 | DI.RAD.S_ITS ---
PROCEDURE: XR ACUTE ABDOMEN SERIES INDICATIONS: nausea, vomiting, diarrhea TECHNIQUE: One view chest and two views of the abdomen were acquired. COMPARISON: [facility], , ABDOMEN ACUTE SERIES, 03/16/2015, 20:32. FINDINGS: Surgical changes and devices: Partially hip fixation is. Chest: Lungs are clear. Heart size is normal. No pleural effusions. No pneumoperitoneum. Abdomen: Bowel gas pattern demonstrates significant colonic stool. No suspicious calcifications. Visualized solid organ contours appear normal. Bones: No suspicious bony lesions. IMPRESSION: Significant colonic stool consistent constipation. No gross obstruction. Dictated by: Jessica Tovar M.D. on 10/20/2021 at 2:02 Approved by: Jessica Tovar M.D. on 10/20/2021 at 2:02
[2021-10-20] MEDS: METOCLOPRAMIDE 10 MG/2 ML INJ IV (01:19)
[2021-10-20 02:18] LABS: Bilirubin Urine UA NEGATIVE (NEGATIVE); Color Urine UA YELLOW; Glucose Urine UA 1+ g/dL (Negative); Ketones Urine UA NEGATIVE (NEGATIVE); Leukocyte Esterase Urine UA 1+ (NEGATIVE); Nitrite Urine UA POSITIVE (Negative); Occult Blood Urine UA 3+ (Negative); Protein Urine UA 1+ (Negative); Urobilinogen Urine UA 0.2 E.U./dL (0.2)
[2021-10-20 02:19] LABS: Appearance Urine UA CLOUDY
[2021-10-20] MEDS: SODIUM CHLORIDE 0.9% 1,000 ML 1000 ML IV (03:04)
[2021-10-20] MEDS: KETOROLAC 30 MG/ML VIAL 15 MG IV (03:19)
[2021-10-20] MEDS: ONDANSETRON 4 MG/2 ML INJ IV (03:19)
--- NOTE | 2021-10-20 04:44 | PC.NURSE ---
pt tolerated ice chips
[2021-10-20] MEDS: ONDANSETRON 4 MG ODT PREPACK 1 BOTTLE MISC (05:39)
[2021-10-20 05:42] LABS: Bacteria Urine Many (>30); Culture Indicated Urine Specimen Cultured; RBC Urine 10-30/HPF (0-5/HPF); Squamous Epithelial Cell Urine 1-5 /HPF (0-5/HPF); WBC Urine >100/HPF (0-5/HPF)
[2021-10-20 08:05] LABS: Anisocytosis 2+; Burr Cells 2+; Hypochromasia 2+
[2021-10-20 08:06] LABS: Platelet Estimate Increased on smear
[2021-10-20 08:13] LABS: Platelet Count 925 X10^3/uL (150-400)
== END 2021-10-20 05:40 | disposition home or self-care (01) ==
PROVIDERS: Emergency Provider Emergency Medicine; PCP Physician Assistant
DX: R11.2 Nausea with vomiting, unspecified (principal); K59.00 Constipation, unspecified; N39.0 Urinary tract infection, site not specified; Z87.891 Personal history of nicotine dependence; Z20.822 Contact with and (suspected) exposure to COVID-19
CPT/HCPCS: 36415; 74022; 80053; 81001; 82009; 82805; 83690; 85025; 87077; 87086; 87186; 87635; 96361; 96374; 96375; 99284; C9803; J1885; J2405; J2765

== ENCOUNTER 2021-10-21 14:55 | Observation (INO) | payer MEDICAID, OTHER, SELFPAY ==
[2021-08-05 15:05] VITALS: BMI 19.5
[2021-10-21] VITALS (16 sets, daily range): BP systolic 90–106; BP diastolic 55–72; PULSE 100–108; RESP 16–18; TEMP 36.9–37; O2SAT 98–100; BMI 18.3
--- NOTE | 2021-10-21 15:10 | DI.US.S_ITS ---
PROCEDURE: US PERIPH VENOUS UP EXTREM RT INDICATIONS: atraumatic swelling right hand TECHNIQUE: Real-time imaging, as well as color and pulse Doppler interrogation, was performed of the right upper extremity deep veins from the inferior neck to the antecubital fossa. COMPARISON: None. FINDINGS: The internal jugular vein, visualized portions of the subclavian vein, axillary, and brachial veins are free of intraluminal thrombus. Where physically possible, the veins are normally compressible. Color and pulse Doppler demonstrate normal intraluminal flow, with expected phasicity and pulsatility. Additional scanning of the cephalic and basilic veins of the superficial system demonstrate normal compressibility, without thrombus. IMPRESSION: Negative for deep venous thrombosis. Note: Concordant preliminary findings given by the stone grader upon the completion of the examination to Nadya Griffin at 4:00 p.m. on October 21, 2021. Dictated by: Patrick Montana M.D. on 10/21/2021 at 15:17 Approved by: Patrick Montana M.D. on 10/21/2021 at 15:18
--- NOTE | 2021-10-21 16:05 | ED.RECABL ---
HPI - Recheck/Abnormal Lab/Rx <Nadya Griffin [facility] - Last Filed: 10/22/21 15:21> General Chief Complaint: Recheck/Abnormal Lab/Rx Stated Complaint: swelling all over Time Seen by Provider: 10/21/21 15:57 Source: patient Mode of arrival: Ambulatory History of Present Illness HPI narrative: 46-year-old chronically ill female with history of type 1 diabetes and acute cystitis presents to the emergency department for right arm swelling and pain but was found to have a coban round her upper arm from a recent IV or PICC line. This was removed and patient's pain is improving although it is still swollen. Patient denies any recent fever but states she has been vomiting for multiple days and has not been able to keep anything down. She was prescribed cefuroxime when she was seen in the emergency department 2 days ago for her acute cystitis but states she took 1 dose this morning and she vomited it. Patient states her blood sugar was 250 before she left today but did not take any insulin. Patient denies any new injuries, states she does have some low back pain which is normal for her. Patient endorses having a wound on the inner aspect of her bottom lip, and a very sore tongue which tijer[place] into her throat. She says it has been this way for a few days. Related Data Home Medications Medication Instructions Recorded Confirmed buspirone 10 mg tablet 2 tab PO TID 12/08/18 10/21/21 cyclobenzaprine 10 mg tablet 10 mg PO TID PRN 12/08/18 10/21/21 gabapentin 600 mg tablet 1.5 tab PO TID 12/08/18 10/21/21 insulin glargine 100 unit/mL (3 40 unit SUBCUT QPM 07/26/21 10/21/21 mL) subcutaneous pen Previous Rx's Medication Instructions Recorded insulin aspart U-100 100 unit/mL 0 unit (0 mL) SUB-Q AC #3 unit 02/12/18 (3 mL) subcutaneous pen (Novolog Flexpen U-100 Insulin aspart) acetaminophen 325 mg tablet 975 mg PO TID PRN #30 tab 12/12/18 ibuprofen 600 mg tablet 600 mg PO Q6H PRN #30 tab 03/21/20 cefuroxime axetil 500 mg tablet 500 mg PO BID #14 tab 10/20/21 ondansetron 4 mg disintegrating 4 mg PO TID-QID PRN #10 tab 10/20/21 tablet Allergies Allergy/AdvReac Type Severity Reaction Status Date / Time amitriptyline Allergy Intermediate Verified 10/08/21 19:53 sulfasalazine [SULFASALAZINE] Allergy Mild PANCREATITI Verified 10/08/21 19:53 S trazodone AdvReac Intermediate HEART Verified 10/08/21 19:53 PALPITATIONS Review of Systems <ZOFIA Puga - Last Filed: 10/22/21 15:21> Review of Systems Narrative: General: denies fever, chills, malaise, sweats, fatigue Head/Neck: denies headache, neck pain, dizziness, endorses mouth pain Eyes: denies visual changes, eye pain Cardio: denies chest pain, palpitations, edema Respiratory: denies dyspnea, cough, orthopnea GI: denies abdominal pain, endorses having nausea and vomiting, denies diarrhea : denies dysuria, hematuria, urinary retention, frequency or incontinence MSK: denies joint pain, muscle weakness, endorses low back pain, right arm swelling Skin: denies rash, itching, skin lesions or other Neuro: denies numbness, tingling Patient History <ZOFIA Puga - Last Filed: 10/22/21 15:21> Medical History Alcohol intoxication Closed hip fracture COVID DKA (diabetic ketoacidoses) DKA (diabetic ketoacidosis) Fibromyalgia Gastroesophageal reflux disease Insulin dependent diabetes mellitus Lupus Osteoporosis Surgical History No pertinent past surgical history Family History Mother Diabetes mellitus Congestive heart failure Pancreatic cancer Father Diabetes mellitus Brother Diabetes mellitus Pancreatitis Sister Drug overdose Social History household members: family Smoking Status: Former smoker alcohol intake: current Smoking Status: Former smoker alcohol intake frequency: holidays/special occasions only Substance Use Type: does not use Exam <ZOFIA Puga - Last Filed: 10/22/21 15:21> Narrative Exam Narrative: Independently reviewed vitals signs and nursing notes. General: Cooperative, comfortable, in no acute distress, chronically ill appearing and frail Head/Neck: Normal visual inspection and supple, atraumatic, no JVD or lymphadenopathy. Normal facial exam Eyes: Pupils equal round and reactive, EOMI, conjunctiva normal, no scleral icterus or injections Nose: External nose normal, nares patent, no rhinorrhea, without purulent drainage Mouth/Throat: uvula midline, moist mucus membranes Cardio: Regular rate and rhythm, right arm edema distal to the Coban that was around her arm which is no longer, warm extremities, radial pulses 2+ on the right, cap refill less than 2 seconds, no lower extremity edema Respiratory: Normal respiratory effort, able to speak in complete sentences without audible wheezing, stridor, or rales. No retractions. GI: Abdomen soft, nontender to palpation x4 quadrants, nondistended, no masses or exquisite tenderness with exam, no flank tenderness MSK: Moves all extremities, neurovascularly intact Skin: Normal capillary refill, no rash Neuro: Normal speech and cognition, normal gait, A&O x3, tone normal, moves all extremities Psych: Mental status is grossly normal, speech is clear, congruent mood, normal affect Initial Vital Signs Initial Vital Signs: Vital Signs Temperature 98.6 F 10/21/21 15:04 Pulse Rate 108 H 10/21/21 15:04 Respiratory Rate 18 10/21/21 15:04 Blood Pressure 95/59 L 10/21/21 15:04 Pulse Oximetry 100 10/21/21 15:04 <Stephane Borden DO - Last Filed: 10/22/21 03:41> Initial Vital Signs Initial Vital Signs: Vital Signs Temperature 98.6 F 10/21/21 15:04 Pulse Rate 108 H 10/21/21 15:04 Respiratory Rate 18 10/21/21 15:04 Blood Pressure 95/59 L 10/21/21 15:04 Pulse Oximetry 100 10/21/21 15:04 Course <ZOFIA Puga - Last Filed: 10/22/21 15:21> Orders Ordered: Acetaminophen (Acetaminophen 325 Mg Tablet) 650 mg PO Q6HR PRN PRN Reason: Fever/Mild Pain (1-3) Last Admin: 10/22/21 05:24 Dose: 650 mg Documented by: Admin: 10/21/21 23:45 Dose: 650 mg Documented by: DM Buspirone HCl (Buspirone 5 Mg Tablet) 20 mg PO TID [facility] Last Admin: 10/22/21 14:55 Dose: 20 mg Documented by: Admin: 10/22/21 10:32 Dose: 20 mg Documented by: ALBERT Lidocaine HCl 30 ml/ Al Hydrox /Mg Hydrox/Simethicone 30 ml/Nystatin 3,000,000 unit 0 ml MM Q4H PRN PRN Reason: Mouth Sore Pain Last Admin: 10/22/21 12:19 Dose: 5 ml Documented by: ALBERT Cyclobenzaprine HCl (Cyclobenzaprine 10 Mg Tablet) 10 mg PO TID PRN PRN Reason: pain Last Admin: 10/22/21 15:00 Dose: 10 mg Documented by: Admin: 10/22/21 07:44 Dose: 10 mg Documented by: Admin: 10/22/21 01:14 Dose: 10 mg Documented by: DM Dextrose (Dextrose 50 % In Water 25 Gm/50 Ml Syringe) 25 gm IV PRN PRN PRN Reason: Hypoglycemia Duloxetine HCl (Duloxetine 30 Mg Capsule) 60 mg PO DAILY [facility] Last Admin: 10/22/21 10:33 Dose: 60 mg Documented by: ALBERT Enoxaparin Sodium (Enoxaparin 40 Mg/0.4 Ml Syringe) 40 mg SUBCUT DAILY [facility] Last Admin: 10/22/21 10:33 Dose: 40 mg Documented by: ALBERT Ceftriaxone Sodium 1,000 mg/ (Sodium Chloride) 100 mls @ 200 mls/hr IV Q24H [facility] Last Infusion: 10/22/21 07:40 Dose: 75 mls/hr Documented by: Admin: 10/21/21 23:44 Dose: 75 mls/hr Documented by: DM Sodium Chloride (Normal Saline 0.9%) 1,000 mls @ 75 mls/hr IV CONT [facility] Last Admin: 10/21/21 23:44 Dose: 75 mls/hr Documented by: DM Insulin Glargine (Insulin Glargine 100 Unit/Ml 3ml Pen) 10 unit SUBCUT BID [facility] Last Admin: 10/22/21 10:34 Dose: Not Given Documented by: ALBERT Insulin Human Lispro (Insulin Lispro 100 Unit/Ml 3ml Vial) 0 unit SUBCUT ACHS [facility]; Protocol Last Admin: 10/22/21 12:53 Dose: Not Given Documented by: Admin: 10/22/21 10:22 Dose: Not Given Documented by: ALBERT Ketorolac Tromethamine (Ketorolac 30 Mg/Ml Vial) 30 mg IV Q8H [facility] Stop: 10/27/21 10:36 Last Admin: 10/22/21 11:31 Dose: 30 mg Documented by: ALBERT Ondansetron HCl (Ondansetron 4 Mg/2 Ml Inj) 4 mg IV Q8HR PRN PRN Reason: Nausea And Vomiting Last Admin: 10/22/21 07:46 Dose: 4 mg Documented by: Admin: 10/21/21 23:45 Dose: 4 mg Documented by: DM Potassium Chloride (Potassium Chloride 20 Meq Tab) 40 meq PO Q6H [facility] Stop: 10/22/21 20:16 Last Admin: 10/22/21 14:58 Dose: 40 meq Documented by: ALBERT Sodium Chloride (Sodium Chloride 0.9% Flush) 10 ml IV PRN PRN PRN Reason: Flush Last Admin: 10/22/21 11:32 Dose: 10 ml Documented by: ALBERT Sodium Chloride (Sodium Chloride 0.9% Flush) 10 ml IV BID [facility] Last Admin: 10/22/21 10:33 Dose: 10 ml Documented by: ALBERT Discontinued Medications Hydrocodone Bitart/Acetaminophen (Hydrocodone/Acet 5/325 Tablet) 1 tab PO NOW ONE Stop: 10/21/21 18:24 Last Admin: 10/21/21 18:40 Dose: 1 tab Documented by: ETHAN Bisacodyl (Bisacodyl 10 Mg Supp) 10 mg OH NOW ONE Stop: 10/21/21 18:46 Last Admin: 10/21/21 22:22 Dose: Not Given Documented by: JAMEL Bisacodyl (Bisacodyl 10 Mg Supp) 10 mg OH DAILY [facility] Cefuroxime Axetil (Cefuroxime 250 Mg Tablet) 500 mg PO NOW ONE Stop: 10/21/21 16:05 Last Admin: 10/21/21 18:40 Dose: 500 mg Documented by: ETHAN Cefuroxime Axetil (Cefuroxime 250 Mg Tablet) 500 mg PO BID [facility] Lidocaine HCl 30 ml/ Al Hydrox /Mg Hydrox/Simethicone 30 ml/Nystatin 3,000,000 unit 0 ml MM NOW ONE Stop: 10/21/21 18:26 Last Admin: 10/21/21 19:44 Dose: 20 ml Documented by: JAMEL Sodium Chloride (Normal Saline 0.9%) 1,000 mls @ 1,000 mls/hr IV BOLUS ONE Stop: 10/21/21 17:03 Last Admin: 10/21/21 17:54 Dose: Not Given Documented by: ETHAN Lactated Ringer's (Lactated Ringers) 1,000 mls @ 1,000 mls/hr IV BOLUS ONE Stop: 10/21/21 21:48 Last Infusion: 10/21/21 22:23 Dose: 0 mls/hr Documented by: Admin: 10/21/21 20:51 Dose: 1,000 mls/hr Documented by: JAMEL Sodium Chloride (Normal Saline 0.9%) 1,000 mls @ 150 mls/hr IV CONT [facility] Last Admin: 10/22/21 00:36 Dose: Not Given Documented by: DM Insulin Glargine (Insulin Glargine 100 Unit/Ml 3ml Pen) 20 unit SUBCUT 0800 [facility] Insulin Glargine (Insulin Glargine 100 Unit/Ml 3ml Pen) 10 unit SUBCUT NOW ONE Stop: 10/22/21 00:10 Last Admin: 10/22/21 03:02 Dose: 10 unit Documented by: DM Cosigned by: CORDELL Ketorolac Tromethamine (Ketorolac 30 Mg/Ml Vial) 15 mg IV NOW ONE Stop: 10/21/21 16:05 Last Admin: 10/21/21 17:53 Dose: Not Given Documented by: ETHAN Ketorolac Tromethamine (Ketorolac 30 Mg/Ml Vial) 15 mg IM NOW ONE Stop: 10/21/21 17:55 Last Admin: 10/21/21 17:55 Dose: 15 mg Documented by: ETHAN Methocarbamol (Methocarbamol 500 Mg Tablet) 500 mg PO NOW ONE Stop: 10/21/21 18:24 Last Admin: 10/21/21 18:40 Dose: 500 mg Documented by: ETHAN Ondansetron HCl (Ondansetron 4 Mg/2 Ml Inj) 4 mg IV NOW ONE Stop: 10/21/21 16:05 Last Admin: 10/21/21 17:54 Dose: Not Given Documented by: ETHAN Ondansetron HCl (Ondansetron 4 Mg Odt) 4 mg SL NOW ONE Stop: 10/21/21 17:30 Last Admin: 10/21/21 17:34 Dose: 4 mg Documented by: ETHAN Ondansetron HCl (Ondansetron 4 Mg Odt) 4 mg SL NOW ONE Stop: 10/21/21 18:25 Last Admin: 10/21/21 18:40 Dose: 4 mg Documented by: ETHAN Polyethylene Glycol (Polyethylene Glycol 3350 17 Gm Powd.Pack) 17 gm PO NOW ONE Stop: 10/21/21 19:57 Last Admin: 10/21/21 20:40 Dose: 17 gm Documented by: JAMEL Polyethylene Glycol (Polyethylene Glycol 3350 17 Gm Powd.Pack) 17 gm PO DAILY [facility] Vital Signs Vital signs: Vital Signs - 8 hr 10/21/21 20:00 10/21/21 20:30 10/21/21 21:00 Pulse Rate 102 H 101 H 104 H Blood Pressure 105/71 Pulse Oximetry 100 98 100 10/21/21 21:14 10/21/21 21:16 10/21/21 21:30 Pulse Rate 107 H 105 H Blood Pressure 90/55 L 90/55 L 92/58 L Pulse Oximetry 100 100 10/21/21 21:45 10/21/21 22:00 10/21/21 22:30 Pulse Rate 105 H 104 H 101 H Blood Pressure 91/61 98/58 L 100/61 Pulse Oximetry 100 100 100 <Stephane Borden DO - Last Filed: 10/22/21 03:41> Orders Ordered: Acetaminophen (Acetaminophen 325 Mg Tablet) 650 mg PO Q6HR PRN PRN Reason: Fever/Mild Pain (1-3) Last Admin: 10/22/21 05:24 Dose: 650 mg Documented by: Admin: 10/21/21 23:45 Dose: 650 mg Documented by: DM Buspirone HCl (Buspirone 5 Mg Tablet) 20 mg PO TID [facility] Last Admin: 10/22/21 14:55 Dose: 20 mg Documented by: Admin: 10/22/21 10:32 Dose: 20 mg Documented by: ALBERT Lidocaine HCl 30 ml/ Al Hydrox /Mg Hydrox/Simethicone 30 ml/Nystatin 3,000,000 unit 0 ml MM Q4H PRN PRN Reason: Mouth Sore Pain Last Admin: 10/22/21 12:19 Dose: 5 ml Documented by: ALBERT Cyclobenzaprine HCl (Cyclobenzaprine 10 Mg Tablet) 10 mg PO TID PRN PRN Reason: pain Last Admin: 10/22/21 15:00 Dose: 10 mg Documented by: Admin: 10/22/21 07:44 Dose: 10 mg Documented by: Admin: 10/22/21 01:14 Dose: 10 mg Documented by: DM Dextrose (Dextrose 50 % In Water 25 Gm/50 Ml Syringe) 25 gm IV PRN PRN PRN Reason: Hypoglycemia Duloxetine HCl (Duloxetine 30 Mg Capsule) 60 mg PO DAILY [facility] Last Admin: 10/22/21 10:33 Dose: 60 mg Documented by: ALBERT Enoxaparin Sodium (Enoxaparin 40 Mg/0.4 Ml Syringe) 40 mg SUBCUT DAILY [facility] Last Admin: 10/22/21 10:33 Dose: 40 mg Documented by: ALBERT Ceftriaxone Sodium 1,000 mg/ (Sodium Chloride) 100 mls @ 200 mls/hr IV Q24H [facility] Last Infusion: 10/22/21 07:40 Dose: 75 mls/hr Documented by: Admin: 10/21/21 23:44 Dose: 75 mls/hr Documented by: DM Sodium Chloride (Normal Saline 0.9%) 1,000 mls @ 75 mls/hr IV CONT [facility] Last Admin: 10/21/21 23:44 Dose: 75 mls/hr Documented by: DM Insulin Glargine (Insulin Glargine 100 Unit/Ml 3ml Pen) 10 unit SUBCUT BID [facility] Last Admin: 10/22/21 10:34 Dose: Not Given Documented by: ALBERT Insulin Human Lispro (Insulin Lispro 100 Unit/Ml 3ml Vial) 0 unit SUBCUT ACHS [facility]; Protocol Last Admin: 10/22/21 12:53 Dose: Not Given Documented by: Admin: 10/22/21 10:22 Dose: Not Given Documented by: ALBERT Ketorolac Tromethamine (Ketorolac 30 Mg/Ml Vial) 30 mg IV Q8H [facility] Stop: 10/27/21 10:36 Last Admin: 10/22/21 11:31 Dose: 30 mg Documented by: ALBERT Ondansetron HCl (Ondansetron 4 Mg/2 Ml Inj) 4 mg IV Q8HR PRN PRN Reason: Nausea And Vomiting Last Admin: 10/22/21 07:46 Dose: 4 mg Documented by: Admin: 10/21/21 23:45 Dose: 4 mg Documented by: DM Potassium Chloride (Potassium Chloride 20 Meq Tab) 40 meq PO Q6H [facility] Stop: 10/22/21 20:16 Last Admin: 10/22/21 14:58 Dose: 40 meq Documented by: ALBERT Sodium Chloride (Sodium Chloride 0.9% Flush) 10 ml IV PRN PRN PRN Reason: Flush Last Admin: 10/22/21 11:32 Dose: 10 ml Documented by: ALBERT Sodium Chloride (Sodium Chloride 0.9% Flush) 10 ml IV BID [facility] Last Admin: 10/22/21 10:33 Dose: 10 ml Documented by: ALBERT Discontinued Medications Hydrocodone Bitart/Acetaminophen (Hydrocodone/Acet 5/325 Tablet) 1 tab PO NOW ONE Stop: 10/21/21 18:24 Last Admin: 10/21/21 18:40 Dose: 1 tab Documented by: ETHAN Bisacodyl (Bisacodyl 10 Mg Supp) 10 mg OH NOW ONE Stop: 10/21/21 18:46 Last Admin: 10/21/21 22:22 Dose: Not Given Documented by: JAMEL Bisacodyl (Bisacodyl 10 Mg Supp) 10 mg OH DAILY [facility] Cefuroxime Axetil (Cefuroxime 250 Mg Tablet) 500 mg PO NOW ONE Stop: 10/21/21 16:05 Last Admin: 10/21/21 18:40 Dose: 500 mg Documented by: ETHAN Cefuroxime Axetil (Cefuroxime 250 Mg Tablet) 500 mg PO BID [facility] Lidocaine HCl 30 ml/ Al Hydrox /Mg Hydrox/Simethicone 30 ml/Nystatin 3,000,000 unit 0 ml MM NOW ONE Stop: 10/21/21 18:26 Last Admin: 10/21/21 19:44 Dose: 20 ml Documented by: JAMEL Sodium Chloride (Normal Saline 0.9%) 1,000 mls @ 1,000 mls/hr IV BOLUS ONE Stop: 10/21/21 17:03 Last Admin: 10/21/21 17:54 Dose: Not Given Documented by: ETHAN Lactated Ringer's (Lactated Ringers) 1,000 mls @ 1,000 mls/hr IV BOLUS ONE Stop: 10/21/21 21:48 Last Infusion: 10/21/21 22:23 Dose: 0 mls/hr Documented by: Admin: 10/21/21 20:51 Dose: 1,000 mls/hr Documented by: JAMEL Sodium Chloride (Normal Saline 0.9%) 1,000 mls @ 150 mls/hr IV CONT JO[facility] ANTONIO Last Admin: 10/22/21 00:36 Dose: Not Given Documented by: DM Insulin Glargine (Insulin Glargine 100 Unit/Ml 3ml Pen) 20 unit SUBCUT 0800 [facility] Insulin Glargine (Insulin Glargine 100 Unit/Ml 3ml Pen) 10 unit SUBCUT NOW ONE Stop: 10/22/21 00:10 Last Admin: 10/22/21 03:02 Dose: 10 unit Documented by: DM Cosigned by: CORDELL Ketorolac Tromethamine (Ketorolac 30 Mg/Ml Vial) 15 mg IV NOW ONE Stop: 10/21/21 16:05 Last Admin: 10/21/21 17:53 Dose: Not Given Documented by: ETHAN Ketorolac Tromethamine (Ketorolac 30 Mg/Ml Vial) 15 mg IM NOW ONE Stop: 10/21/21 17:55 Last Admin: 10/21/21 17:55 Dose: 15 mg Documented by: ETHAN Methocarbamol (Methocarbamol 500 Mg Tablet) 500 mg PO NOW ONE Stop: 10/21/21 18:24 Last Admin: 10/21/21 18:40 Dose: 500 mg Documented by: ETHAN Ondansetron HCl (Ondansetron 4 Mg/2 Ml Inj) 4 mg IV NOW ONE Stop: 10/21/21 16:05 Last Admin: 10/21/21 17:54 Dose: Not Given Documented by: ETHAN Ondansetron HCl (Ondansetron 4 Mg Odt) 4 mg SL NOW ONE Stop: 10/21/21 17:30 Last Admin: 10/21/21 17:34 Dose: 4 mg Documented by: ETHAN Ondansetron HCl (Ondansetron 4 Mg Odt) 4 mg SL NOW ONE Stop: 10/21/21 18:25 Last Admin: 10/21/21 18:40 Dose: 4 mg Documented by: ETHAN Polyethylene Glycol (Polyethylene Glycol 3350 17 Gm Powd.Pack) 17 gm PO NOW ONE Stop: 10/21/21 19:57 Last Admin: 10/21/21 20:40 Dose: 17 gm Documented by: JAMEL Polyethylene Glycol (Polyethylene Glycol 3350 17 Gm Powd.Pack) 17 gm PO DAILY [facility] Vital Signs Vital signs: Vital Signs - 8 hr 10/21/21 20:00 10/21/21 20:30 10/21/21 21:00 Pulse Rate 102 H 101 H 104 H Blood Pressure 105/71 Pulse Oximetry 100 98 100 10/21/21 21:14 10/21/21 21:16 10/21/21 21:30 Pulse Rate 107 H 105 H Blood Pressure 90/55 L 90/55 L 92/58 L Pulse Oximetry 100 100 10/21/21 21:45 10/21/21 22:00 10/21/21 22:30 Pulse Rate 105 H 104 H 101 H Blood Pressure 91/61 98/58 L 100/61 Pulse Oximetry 100 100 100 MDM - Recheck/Abnormal Lab/Rx <Nadya Griffin [facility] - Last Filed: 10/22/21 15:21> Lab Data Result diagrams: 10/22/21 05:00 10/22/21 05:00 Labs: Lab Results 10/21/21 10/21/21 10/21/21 Range/Units 17:00 17:14 19:24 WBC 10.7 (4.5-11.0) X10^3/uL RBC 3.45 L (4.0-5.2) X10^6/uL Hgb 8.7 L (12.0-16.0) g/dL Hct 27.4 L (36-46) % MCV 79.4 L (80-100) fL MCH 25.3 L (26-34) PG MCHC 31.9 (30-36) % RDW 20.3 H (11.6-14.8) % Plt Count 1104 H* (150-400) X10^3/uL Neut % (Auto) 79.8 H (50-75) % Lymph % (Auto) 13.1 L (25-40) % Woodward % (Auto) 5.9 (3-14) % Eos % (Auto) 0.7 L (2-4) % Baso % (Auto) 0.5 (0-2) % Neut # (Auto) 8500 H (9649-9284) /uL Lymph # (Auto) 1400 (3018-1151) /uL Woodward # (Auto) 600 (0-900) /uL Eos # (Auto) 100 (0-450) /uL Baso # (Auto) 100 (0-100) /uL Platelet Estimate Increased on smear RBC Morphology See below Hypochromasia 1+ H Anisocytosis 2+ H Microcytosis 1+ H Target Cells 1+ H Schistocytes 1+ H VBG pH 7.41 (7.33-7.43) VBG pCO2 24.0 L (45-50) mmHg VBG pO2 70 H (35-45) mmHg VBG HCO3 15 L (23-28) mmol/L VBG Total CO2 16 L (24-29) mmol/L VBG O2 Saturation 95 H (70-75) % VBG Base Excess -9.0 L (0-4) mmol/L Sodium 137 (137-145) mmol/L Potassium 3.8 (3.4-5.1) mmol/L Chloride 112 H (98-107) mmol/L Carbon Dioxide 17 L (22-32) mmol/L BUN 6 L (7-17) mg/dL Creatinine 0.39 L (0.52-1.04) mg/dL Estimated GFR > 60.0 (>60) mL/min BUN/Creatinine Ratio 15.4 (6-22) Glucose 221 H (70-100) mg/dL Lactate (0.7-2.1) mmol/L Calcium 8.0 L (8.4-10.2) mg/dL Total Bilirubin 0.5 (0.2-1.3) mg/dL AST 28 (14-36) IU/L ALT 23 (<35) IU/L Alkaline Phosphatase 209 H (38-126) U/L Total Protein 5.6 L (6.3-8.2) g/dL Albumin 2.5 L (3.5-5.0) g/dL Globulin 3.1 (1.7-4.1) g/dL Albumin/Globulin Ratio 0.8 L (1.0-2.8) Ketones 1.65 H (<0.27) mmol/L A. baumannii (PCR) (Not Detect) Lexi albicans (PCR) (Not Detect) C. glabrata (PCR) (Not Detect) C. krusei (PCR) (Not Detect) C. parapsilosis (PCR) (Not Detect) C. tropicalis (PCR) (Not Detect) SARS-CoV-2 (PCR) (Negative) Enterobacteriac sp PCR (Not Detect) E. cloacae complex PCR (Not Detect) Enterococcus sp PCR (Not Detect) E. coli (PCR) (Not Detect) H. influenzae (PCR) (Not Detect) Klebsiella oxytoca PCR (Not Detect) Klebsiella pneumoniae (Not Detect) List. monocytogenes PCR (Not Detect) N. meningitidis (PCR) (Not Detect) Proteus species (PCR) (Not Detect) Serratia marcescens PCR (Not Detect) Staphylococcus sp PCR (Not Detect) Staph aureus (PCR) (Not Detect) mecA-Methicil Res Gene Streptococcus sp PCR (Not Detect) Group A Strep (PCR) (Not Detect) Strep agalactiae (PCR) (Not Detect) Strep pneumoniae (PCR) (Not Detect) P. aeruginosa (PCR) (Not Detect) Moises/B-Vanco Res Genes KPC-Carbap Res Gene PCR (Not Detect) 10/21/21 10/21/21 10/21/21 Range/Units 20:43 22:38 22:38 WBC (4.5-11.0) X10^3/uL RBC (4.0-5.2) X10^6/uL Hgb (12.0-16.0) g/dL Hct (36-46) % MCV (80-100) fL MCH (26-34) PG MCHC (30-36) % RDW (11.6-14.8) % Plt Count (150-400) X10^3/uL Neut % (Auto) (50-75) % Lymph % (Auto) (25-40) % Woodward % (Auto) (3-14) % Eos % (Auto) (2-4) % Baso % (Auto) (0-2) % Neut # (Auto) (2985-4612) /uL Lymph # (Auto) (1521-5552) /uL Woodward # (Auto) (0-900) /uL Eos # (Auto) (0-450) /uL Baso # (Auto) (0-100) /uL Platelet Estimate RBC Morphology Hypochromasia Anisocytosis Microcytosis Target Cells Schistocytes VBG pH (7.33-7.43) VBG pCO2 (45-50) mmHg VBG pO2 (35-45) mmHg VBG HCO3 (23-28) mmol/L VBG Total CO2 (24-29) mmol/L VBG O2 Saturation (70-75) % VBG Base Excess (0-4) mmol/L Sodium (137-145) mmol/L Potassium (3.4-5.1) mmol/L Chloride (98-107) mmol/L Carbon Dioxide (22-32) mmol/L BUN (7-17) mg/dL Creatinine (0.52-1.04) mg/dL Estimated GFR (>60) mL/min BUN/Creatinine Ratio (6-22) Glucose (70-100) mg/dL Lactate 1.8 (0.7-2.1) mmol/L Calcium (8.4-10.2) mg/dL Total Bilirubin (0.2-1.3) mg/dL AST (14-36) IU/L ALT (<35) IU/L Alkaline Phosphatase (38-126) U/L Total Protein (6.3-8.2) g/dL Albumin (3.5-5.0) g/dL Globulin (1.7-4.1) g/dL Albumin/Globulin Ratio (1.0-2.8) Ketones (<0.27) mmol/L A. baumannii (PCR) Not detected (Not Detect) Lexi albicans (PCR) Not detected (Not Detect) C. glabrata (PCR) Not detected (Not Detect) C. krusei (PCR) Not detected (Not Detect) C. parapsilosis (PCR) Not detected (Not Detect) C. tropicalis (PCR) Not detected (Not Detect) SARS-CoV-2 (PCR) Negative (Negative) Enterobacteriac sp PCR Detected H (Not Detect) E. cloacae complex PCR Not detected (Not Detect) Enterococcus sp PCR Not detected (Not Detect) E. coli (PCR) Detected H (Not Detect) H. influenzae (PCR) Not detected (Not Detect) Klebsiella oxytoca PCR Not detected (Not Detect) Klebsiella pneumoniae Not detected (Not Detect) List. monocytogenes PCR Not detected (Not Detect) N. meningitidis (PCR) Not detected (Not Detect) Proteus species (PCR) Not detected (Not Detect) Serratia marcescens PCR Not detected (Not Detect) Staphylococcus sp PCR Not detected (Not Detect) Staph aureus (PCR) Not detected (Not Detect) mecA-Methicil Res Gene Not Reportable Streptococcus sp PCR Not detected (Not Detect) Group A Strep (PCR) Not detected (Not Detect) Strep agalactiae (PCR) Not detected (Not Detect) Strep pneumoniae (PCR) Not detected (Not Detect) P. aeruginosa (PCR) Not detected (Not Detect) Moises/B-Vanco Res Genes Not Reportable KPC-Carbap Res Gene PCR Not detected (Not Detect) Imaging Data US - DVT: Radiologist's Impression: PROCEDURE:? US PERIPH VENOUS UP EXTREM RT ? INDICATIONS:? atraumatic swelling right hand ? TECHNIQUE:? Real-time imaging, as well as color and pulse Doppler interrogation, was performed of the right upper extremity deep veins from the inferior neck to the antecubital fossa.? ? COMPARISON:? None. ? FINDINGS:? The internal jugular vein, visualized portions of the subclavian vein, axillary, and brachial veins are free of intraluminal thrombus.? Where physically possible, the veins are normally compressible.? Color and pulse Doppler demonstrate normal intraluminal flow, with expected phasicity and pulsatility.? Additional scanning of the cephalic and basilic veins of the superficial system demonstrate normal compressibility, without thrombus.? ? IMPRESSION:? ? Negative for deep venous thrombosis. ? Note: Concordant preliminary findings given by the bowling or skating front desk clerk upon the completion of the examination to Nadya Griffin at 4:00 p.m. on October 21, 2021. ? ? ? Dictated by: Patrick Montana M.D. on 10/21/2021 at 15:17 ? ? Approved by: Patrick Montana M.D. on 10/21/2021 at 15:18 ? [facility] Narrative Medical decision making narrative: 46-year-old chronically ill and frail female, former smoker, with history of diabetes presents to the emergency department for right arm swelling since she was in the hospital yesterday. She had a Coban wrapped around her arm from a blood draw or a line in her upper arm. This was removed and her pain improved, ultrasound was ordered for concern about DVT from venous stasis. Ultrasound of her right upper extremity was negative for deep venous thrombosis. Patient endorses having oral and throat pain, she says it is burning. It appears that she has an aphthous ulcer on the inner aspect of her lower lip, her tongue is erythematous without visible Lexi. Of nausea and vomiting for the last few days and the inability to keep down her antibiotics for UTI. She was given 2 doses of Zofran with marked improvement in her nausea vomiting, she was able to p.o. hydrate and keep down her medications. She was given a dose of cefuroxime in the ER. Nursing had a very difficult time obtaining IV access using multiple peripheral attempts. Dr. Borden made 2 attempts at an EJ catheter, and was unsuccessful. Dr. Borden made 2 attempts at RIJ central line placement and was unsuccessful. Patient at this point is tolerating p.o. hydration and oral medications without vomiting, she received IM Toradol with some improvement in her pain and symptoms. She continues to have constipation, she has not had a bowel movement at home still. She was given bisacodyl suppository and MiraLax without any stool at this time. <Stephane Borden, DO - Last Filed: 10/22/21 03:41> Lab Data Labs: Lab Results 10/21/21 10/21/21 10/21/21 Range/Units 17:00 17:14 19:24 WBC 10.7 (4.5-11.0) X10^3/uL RBC 3.45 L (4.0-5.2) X10^6/uL Hgb 8.7 L (12.0-16.0) g/dL Hct 27.4 L (36-46) % MCV 79.4 L (80-100) fL MCH 25.3 L (26-34) PG MCHC 31.9 (30-36) % RDW 20.3 H (11.6-14.8) % Plt Count 1104 H* (150-400) X10^3/uL Neut % (Auto) 79.8 H (50-75) % Lymph % (Auto) 13.1 L (25-40) % [place] % (Auto) 5.9 (3-14) % Eos % (Auto) 0.7 L (2-4) % Baso % (Auto) 0.5 (0-2) % Neut # (Auto) 8500 H (9165-3395) /uL Lymph # (Auto) 1400 (0713-1687) /uL [place] # (Auto) 600 (0-900) /uL Eos # (Auto) 100 (0-450) /uL Baso # (Auto) 100 (0-100) /uL Platelet Estimate Increased on smear RBC Morphology See below Hypochromasia 1+ H Anisocytosis 2+ H Microcytosis 1+ H Target Cells 1+ H Schistocytes 1+ H VBG pH 7.41 (7.33-7.43) VBG pCO2 24.0 L (45-50) mmHg VBG pO2 70 H (35-45) mmHg VBG HCO3 15 L (23-28) mmol/L VBG Total CO2 16 L (24-29) mmol/L VBG O2 Saturation 95 H (70-75) % VBG Base Excess -9.0 L (0-4) mmol/L Sodium 137 (137-145) mmol/L Potassium 3.8 (3.4-5.1) mmol/L Chloride 112 H (98-107) mmol/L Carbon Dioxide 17 L (22-32) mmol/L BUN 6 L (7-17) mg/dL Creatinine 0.39 L (0.52-1.04) mg/dL Estimated GFR > 60.0 (>60) mL/min BUN/Creatinine Ratio 15.4 (6-22) Glucose 221 H (70-100) mg/dL Lactate (0.7-2.1) mmol/L Calcium 8.0 L (8.4-10.2) mg/dL Total Bilirubin 0.5 (0.2-1.3) mg/dL AST 28 (14-36) IU/L ALT 23 (<35) IU/L Alkaline Phosphatase 209 H (38-126) U/L Total Protein 5.6 L (6.3-8.2) g/dL Albumin 2.5 L (3.5-5.0) g/dL Globulin 3.1 (1.7-4.1) g/dL Albumin/Globulin Ratio 0.8 L (1.0-2.8) Ketones 1.65 H (<0.27) mmol/L A. baumannii (PCR) (Not Detect) Lexi albicans (PCR) (Not Detect) C. glabrata (PCR) (Not Detect) C. krusei (PCR) (Not Detect) C. parapsilosis (PCR) (Not Detect) C. tropicalis (PCR) (Not Detect) SARS-CoV-2 (PCR) (Negative) Enterobacteriac sp PCR (Not Detect) E. cloacae complex PCR (Not Detect) Enterococcus sp PCR (Not Detect) E. coli (PCR) (Not Detect) H. influenzae (PCR) (Not Detect) Klebsiella oxytoca PCR (Not Detect) Klebsiella pneumoniae (Not Detect) List. monocytogenes PCR (Not Detect) N. meningitidis (PCR) (Not Detect) Proteus species (PCR) (Not Detect) Serratia marcescens PCR (Not Detect) Staphylococcus sp PCR (Not Detect) Staph aureus (PCR) (Not Detect) mecA-Methicil Res Gene Streptococcus sp PCR (Not Detect) Group A Strep (PCR) (Not Detect) Strep agalactiae (PCR) (Not Detect) Strep pneumoniae (PCR) (Not Detect) P. aeruginosa (PCR) (Not Detect) Moises/B-Vanco Res Genes KPC-Carbap Res Gene PCR (Not Detect) 10/21/21 10/21/21 10/21/21 Range/Units 20:43 22:38 22:38 WBC (4.5-11.0) X10^3/uL RBC (4.0-5.2) X10^6/uL Hgb (12.0-16.0) g/dL Hct (36-46) % MCV (80-100) fL MCH (26-34) PG MCHC (30-36) % RDW (11.6-14.8) % Plt Count (150-400) X10^3/uL Neut % (Auto) (50-75) % Lymph % (Auto) (25-40) % [place] % (Auto) (3-14) % Eos % (Auto) (2-4) % Baso % (Auto) (0-2) % Neut # (Auto) (1597-8267) /uL Lymph # (Auto) (8611-0622) /uL [place] # (Auto) (0-900) /uL Eos # (Auto) (0-450) /uL Baso # (Auto) (0-100) /uL Platelet Estimate RBC Morphology Hypochromasia Anisocytosis Microcytosis Target Cells Schistocytes VBG pH (7.33-7.43) VBG pCO2 (45-50) mmHg VBG pO2 (35-45) mmHg VBG HCO3 (23-28) mmol/L VBG Total CO2 (24-29) mmol/L VBG O2 Saturation (70-75) % VBG Base Excess (0-4) mmol/L Sodium (137-145) mmol/L Potassium (3.4-5.1) mmol/L Chloride (98-107) mmol/L Carbon Dioxide (22-32) mmol/L BUN (7-17) mg/dL Creatinine (0.52-1.04) mg/dL Estimated GFR (>60) mL/min BUN/Creatinine Ratio (6-22) Glucose (70-100) mg/dL Lactate 1.8 (0.7-2.1) mmol/L Calcium (8.4-10.2) mg/dL Total Bilirubin (0.2-1.3) mg/dL AST (14-36) IU/L ALT (<35) IU/L Alkaline Phosphatase (38-126) U/L Total Protein (6.3-8.2) g/dL Albumin (3.5-5.0) g/dL Globulin (1.7-4.1) g/dL Albumin/Globulin Ratio (1.0-2.8) Ketones (<0.27) mmol/L A. baumannii (PCR) Not detected (Not Detect) Lexi albicans (PCR) Not detected (Not Detect) C. glabrata (PCR) Not detected (Not Detect) C. krusei (PCR) Not detected (Not Detect) C. parapsilosis (PCR) Not detected (Not Detect) C. tropicalis (PCR) Not detected (Not Detect) SARS-CoV-2 (PCR) Negative (Negative) Enterobacteriac sp PCR Detected H (Not Detect) E. cloacae complex PCR Not detected (Not Detect) Enterococcus sp PCR Not detected (Not Detect) E. coli (PCR) Detected H (Not Detect) H. influenzae (PCR) Not detected (Not Detect) Klebsiella oxytoca PCR Not detected (Not Detect) Klebsiella pneumoniae Not detected (Not Detect) List. monocytogenes PCR Not detected (Not Detect) N. meningitidis (PCR) Not detected (Not Detect) Proteus species (PCR) Not detected (Not Detect) Serratia marcescens PCR Not detected (Not Detect) Staphylococcus sp PCR Not detected (Not Detect) Staph aureus (PCR) Not detected (Not Detect) mecA-Methicil Res Gene Not Reportable Streptococcus sp PCR Not detected (Not Detect) Group A Strep (PCR) Not detected (Not Detect) Strep agalactiae (PCR) Not detected (Not Detect) Strep pneumoniae (PCR) Not detected (Not Detect) P. aeruginosa (PCR) Not detected (Not Detect) Moises/B-Vanco Res Genes Not Reportable KPC-Carbap Res Gene PCR Not detected (Not Detect) MDM Narrative Medical decision making narrative: 46-year-old chronically ill and frail female, former smoker, with history of diabetes presents to the emergency department for right arm swelling since she was in the hospital yesterday. She had a Coban wrapped around her arm from a blood draw or a line in her upper arm. This was removed and her pain improved, ultrasound was ordered for concern about DVT from venous stasis. Ultrasound of her right upper extremity was negative for deep venous thrombosis. Patient endorses having oral and throat pain, she says it is burning. It appears that she has an aphthous ulcer on the inner aspect of her lower lip, her tongue is erythematous without visible Lexi. Of nausea and vomiting for the last few days and the inability to keep down her antibiotics for UTI. She was given 2 doses of Zofran with marked improvement in her nausea vomiting, she was able to p.o. hydrate and keep down her medications. She was given a dose of cefuroxime in the ER. Nursing had a very difficult time obtaining IV access using multiple peripheral attempts. Dr. Borden made 2 attempts at an EJ catheter, and was unsuccessful. Dr. Borden made 2 attempts at RIJ central line placement and was unsuccessful. Patient at this point is tolerating p.o. hydration and oral medications without vomiting, she received IM Toradol with some improvement in her pain and symptoms. She continues to have constipation, she has not had a bowel movement at home still. She was given bisacodyl suppository and MiraLax without any stool at this time. 1930 (Michi) - patient remains stable, IV access gained. She will require hospitalization due to persistent nausea and vomiting with failed attempts at outpatient therapy. She is unable to keep anything down and has become significantly weak. Discharge Plan Departure Patient Disposition: Admitted As Inpatient Clinical Impression: Constipation Qualifiers: Constipation type: unspecified constipation type Qualified Code(s): K59.00 - Constipation, unspecified Nausea & vomiting Qualifiers: Vomiting type: unspecified Vomiting Intractability: intractable Qualified Code(s): R11.2 - Nausea with vomiting, unspecified Admit Date/Time: 10/21/21 22:41 Admit Provider: David Royal
--- NOTE | 2021-10-21 17:22 | PM.HP.1 ---
History of Present Illness History of Present Illness Date Patient Seen: 10/21/21 Time Patient Seen: 22:00 Chief complaint: swelling all over Narrative: Ms. Weaver is a 46W with Type 1 DM, recent admission for CVA and COVID pneumonia, lupus, fibromyalgia who comes in to the hospital with nausea and vomiting. She was recently in the ED a few days ago with vomiting and found to have a UTI. She was prescribed antibiotics, and only has taken one dose, and thinks she may have vomited. She has multiple complaints including chronic back pain, a sore in her mouth. She has noted abdominal pain and dysuria. No fevers/chills, no chest pain, shortness of breath or cough. She notes she blood sugars have been difficult to control. She was also noted to have a coban wrapped around her arm from her previous ED visit, and she noted swelling in her right arm. In the ED workup was done, vitals notable for heart rate in the 100s, blood pressure systolic in the 90s. IV access was very difficult, unable to place peripherhal, EJ, or IJ. PICC was requested by contracted service and said they would be unable to place PICC tonight. Labs notable for Hgb 8.7, plts 1104, co2 17, creatinine 0.39, glucose 221. VBG with ph 7.41, hco3 15. Lactate normal. US of right upper extremity negative for DVT. She was ordered for IV fluids and antibioitics and admitted for further treatment. Patient History Medical History Alcohol intoxication Closed hip fracture COVID DKA (diabetic ketoacidoses) DKA (diabetic ketoacidosis) Fibromyalgia Gastroesophageal reflux disease Insulin dependent diabetes mellitus Lupus Osteoporosis Surgical History No pertinent past surgical history Family & Social History Family History Mother Diabetes mellitus Congestive heart failure Pancreatic cancer Father Diabetes mellitus Brother Diabetes mellitus Pancreatitis Sister Drug overdose Social History: household members family Prior Living Arrangements House Safety & Behavioral: Feels Safe in Current Yes Environment Been Physically Hurt or No Threatened By a Person Suicidal Ideation Description None Suicide Plan Description No Plan Tobacco & Substance use: Tobacco type cigarettes Smoking Status Former smoker alcohol intake current alcohol intake frequency holiday/special occasion Substance Use Type does not use Meds Home Medications and Allergies Home Medications Medication Instructions Recorded Confirmed Type insulin aspart U-100 100 unit/mL 0 unit (0 mL) SUB-Q AC #3 unit 02/12/18 10/21/21 Rx (3 mL) subcutaneous pen (Novolog Flexpen U-100 Insulin aspart) buspirone 10 mg tablet 2 tab PO TID 12/08/18 10/21/21 History cyclobenzaprine 10 mg tablet 10 mg PO TID PRN 12/08/18 10/21/21 History gabapentin 600 mg tablet 1.5 tab PO TID 12/08/18 10/21/21 History acetaminophen 325 mg tablet 975 mg PO TID PRN #30 tab 12/12/18 10/21/21 Rx ibuprofen 600 mg tablet 600 mg PO Q6H PRN #30 tab 03/21/20 10/21/21 Rx insulin glargine 100 unit/mL (3 40 unit SUBCUT QPM 07/26/21 10/21/21 History mL) subcutaneous pen cefuroxime axetil 500 mg tablet 500 mg PO BID #14 tab 10/20/21 10/21/21 Rx ondansetron 4 mg disintegrating 4 mg PO TID-QID PRN #10 tab 10/20/21 10/21/21 Rx tablet Allergies Allergy/AdvReac Type Severity Reaction Status Date / Time amitriptyline Allergy Intermediate Verified 10/08/21 19:53 sulfasalazine [SULFASALAZINE] Allergy Mild PANCREATITI Verified 10/08/21 19:53 S trazodone AdvReac Intermediate HEART Verified 10/08/21 19:53 PALPITATIONS Review of Systems Review of Systems Narrative: 14 systems reviewed and negative aside from HPI Exam Vital Signs (past 8 hours): - 10/21/21 18:47 10/21/21 19:00 10/21/21 19:30 Temperature Pulse Rate 105 H 102 H 100 H Respiratory Rate Blood Pressure 106/72 Pulse Oximetry 100 100 100 10/21/21 19:40 10/21/21 20:00 10/21/21 20:30 Temperature Pulse Rate 103 H 102 H 101 H Respiratory Rate Blood Pressure 102/70 105/71 Pulse Oximetry 100 100 98 10/21/21 21:00 10/21/21 21:14 10/21/21 21:16 Temperature Pulse Rate 104 H 107 H Respiratory Rate Blood Pressure 90/55 L 90/55 L Pulse Oximetry 100 100 10/21/21 21:30 10/21/21 21:45 10/21/21 22:00 Temperature Pulse Rate 105 H 105 H 104 H Respiratory Rate Blood Pressure 92/58 L 91/61 98/58 L Pulse Oximetry 100 100 100 10/21/21 22:30 10/21/21 22:45 10/21/21 22:58 Temperature 98.5 F Pulse Rate 101 H 101 H 101 H Respiratory Rate 16 Blood Pressure 100/61 97/61 95/62 Pulse Oximetry 100 100 100 Oxygen Delivery Method Room Air Narrative Exam Narrative: GEN: cachectic, chronically ill appearing, appears older than stated age HEENT: dry mucous membranes, PERRL NECK: trachea midline, no JVD CV: tachycardic, no murmurs PULM: clear bilaterally, no wheezes ABD: soft, nontender, nondistended, no organomegaly EXT: warm and well perfused with no edema NEURO: awake, alert, oriented, no focal deficits Objective Labs Result Diagrams: 10/21/21 19:24 10/21/21 17:00 Labs: Laboratory Results - last 24 hr 10/21/21 10/21/21 10/21/21 17:00 17:14 19:24 WBC 10.7 RBC 3.45 L Hgb 8.7 L Hct 27.4 L MCV 79.4 L MCH 25.3 L MCHC 31.9 RDW 20.3 H Plt Count 1104 H* Neut % (Auto) 79.8 H Lymph % (Auto) 13.1 L [place] % (Auto) 5.9 Eos % (Auto) 0.7 L Baso % (Auto) 0.5 Neut # (Auto) 8500 H Lymph # (Auto) 1400 [place] # (Auto) 600 Eos # (Auto) 100 Baso # (Auto) 100 Platelet Estimate Increased on smear RBC Morphology See below Hypochromasia 1+ H Anisocytosis 2+ H Microcytosis 1+ H Target Cells 1+ H Schistocytes 1+ H VBG pH 7.41 VBG pCO2 24.0 L VBG pO2 70 H VBG HCO3 15 L VBG Total CO2 16 L VBG O2 Saturation 95 H VBG Base Excess -9.0 L Sodium 137 Potassium 3.8 Chloride 112 H Carbon Dioxide 17 L BUN 6 L Creatinine 0.39 L Estimated GFR > 60.0 BUN/Creatinine Ratio 15.4 Glucose 221 H Lactate Calcium 8.0 L Total Bilirubin 0.5 AST 28 ALT 23 Alkaline Phosphatase 209 H Total Protein 5.6 L Albumin 2.5 L Globulin 3.1 Albumin/Globulin Ratio 0.8 L Ketones 1.65 H SARS-CoV-2 (PCR) 10/21/21 10/21/21 20:43 22:38 WBC RBC Hgb Hct MCV MCH MCHC RDW Plt Count Neut % (Auto) Lymph % (Auto) [place] % (Auto) Eos % (Auto) Baso % (Auto) Neut # (Auto) Lymph # (Auto) [place] # (Auto) Eos # (Auto) Baso # (Auto) Platelet Estimate RBC Morphology Hypochromasia Anisocytosis Microcytosis Target Cells Schistocytes VBG pH VBG pCO2 VBG pO2 VBG HCO3 VBG Total CO2 VBG O2 Saturation VBG Base Excess Sodium Potassium Chloride Carbon Dioxide BUN Creatinine Estimated GFR BUN/Creatinine Ratio Glucose Lactate 1.8 Calcium Total Bilirubin AST ALT Alkaline Phosphatase Total Protein Albumin Globulin Albumin/Globulin Ratio Ketones SARS-CoV-2 (PCR) Negative Assessment & Plan Assessment & Plan narrative: Ms. Garnica 48W is a Type 1 Diabetes, recent COVID infection, recent CVA, lupus who presents with nausea, vomiting, abdominal pain found to have UTI. 1. UTI, acute -growing gram negative rods from 10/20 -follow up urine culture -ordered for ceftriaxone 2. Nausea, vomiting, abdominal pain -likely multifactorial from UTI, diabetes, chronic pancreatitis -treat with IV fluids, antibiotics and pain control -if does not improve may need CT abdominal imaging -monitor closely for development of DKA 2. Type 1 Diabetes with hyperglycemia -blood sugar in 220s on arrival -ketones positive, and has metabolic acidosis, anion gap of 8, pH normal not in DKA -given 10U insulin tonight, then order for patient home dose 20U daily (but will order 10U BID) -order insulin sliding scale, check glucose achs -check a1c 3. Recent CVA -recent admission in july where she received tpa and then was transferred for CVA -acquire records -hold asa for anemia 4. Fibromyalgia with anxiety/depression -continue buspirone, duloxetine, and flexeril 5. Lupus -per patient on recent flare 6. Anemia, acute on chronic -etiology unclear -hemoglobin 8.7, last hemoglobin 3 days ago was 11.1 -per patient no active bleeding -previous hemoglobin has been lower than 11 -monitor hemoglobin closely, transfuse for <7 -with low MCV presume possible iron deficiency 7. Chronic pancreatitis -per patient she takes pancreatic enzyme 8. Severe protein calorie malnutrition, cachexia -dietary consult 9. Reactive thrombocytosis -likely secondary to infection -trend daily CODE: Full Proxy: Jhonny Johnson, family I have utilized all available resources to reconcile patient's home medications Time Spent With Patient Critical Care time: I spent a total of [] minutes of critical care time on this patient's care today; this time is exclusive of procedural time. Quality VTE Deep Vein Thrombosis/Pulmonary Embolism Present on Admission: No
[2021-10-21 17:26] LABS: HCO3 VBG 15 mmol/L (23-28); Oxygen Saturation VBG 95 % (70-75); PO2 VBG 70 mmHg (35-45); Total CO2 VBG 16 mmol/L (24-29); pH VBG 7.41 (7.33-7.43)
[2021-10-21 17:27] LABS: Alanine Aminotransferase 23 IU/L (<35); Albumin 2.5 g/dL (3.5-5.0); Albumin Globulin Ratio 0.8 (1.0-2.8); Alkaline Phosphatase 209 U/L (38-126); Aspartate Aminotransferase 28 IU/L (14-36); BUN Creatinine Ratio 15.4 (6-22); Bilirubin Total 0.5 mg/dL (0.2-1.3); Blood Urea Nitrogen 6 mg/dL (7-17); Carbon Dioxide 17 mmol/L (22-32); Chloride 112 mmol/L (98-107); Estimated Glomerular Filt Rate > 60.0 mL/min (>60); Globulin 3.1 g/dL (1.7-4.1); Glucose 221 mg/dL (70-100); HEMOLYSIS 37 (0-50); Potassium 3.8 mmol/L (3.4-5.1); Sodium 137 mmol/L (137-145); Total Protein 5.6 g/dL (6.3-8.2)
[2021-10-21 17:30] LABS: Ketones (Beta-Hydroxybutyrate) 1.65 mmol/L (<0.27)
[2021-10-21] MEDS: ONDANSETRON 4 MG ODT SL ×2 (17:34→18:40)
[2021-10-21] MEDS: KETOROLAC 30 MG/ML VIAL 15 MG IM (17:55)
[2021-10-21] MEDS: cefUROXime 250 MG TABLET 500 MG PO (18:40)
[2021-10-21] MEDS: methocarbamoL 500 MG TABLET PO (18:40)
[2021-10-21] MEDS: HYDROCODONE/ACET 5/325 TABLET 1 TAB PO (18:40)
--- NOTE | 2021-10-21 18:50 | PC.NURSE ---
Right arm swollen, when patient was undressed she was found to have a coban from a prior lab draw around her upper arm. pts sensation was intact in her right arm but it was swollen.
[2021-10-21 19:34] LABS: Add Manual Diff / Slide Review NO; Basophils Absolute Auto 100 /uL (0-100); Basophils Percent Auto 0.5 % (0-2); Eosinophils Absolute Auto 100 /uL (0-450); Eosinophils Percent Auto 0.7 % (2-4); Hematocrit 27.4 % (36-46); Hemoglobin 8.7 g/dL (12.0-16.0); Lymphocytes Absolute Auto 1400 /uL (1100-4500); Lymphocytes Percent Auto 13.1 % (25-40); Mean Corpuscular HGB Conc 31.9 % (30-36); Mean Corpuscular Hemoglobin 25.3 PG (26-34); Mean Corpuscular Volume 79.4 fL (80-100); Monocytes Absolute Auto 600 /uL (0-900); Monocytes Percent Auto 5.9 % (3-14); Neutrophils Absolute Auto 8500 /uL (1500-7000); Neutrophils Percent Auto 79.8 % (50-75); Red Blood Cell Count 3.45 X10^6/uL (4.0-5.2); Red Cell Distribution Width 20.3 % (11.6-14.8); White Blood Cell Count 10.7 X10^3/uL (4.5-11.0)
[2021-10-21 19:36] LABS: Platelet Count 1104 X10^3/uL (150-400)
[2021-10-21] MEDS: LIDOCAINE VISCOUS 2% 30 ML, MAG HYDROX/ALUMINUM/SIMETH SUS 30 ML, NYSTATIN SUSP 3,000,0... MM (19:44)
[2021-10-21 20:03] LABS: Anisocytosis 2+; Hypochromasia 1+
[2021-10-21 20:04] LABS: Microcytosis 1+; Platelet Estimate Increased on smear; Schistocytes 1+; Target Cells 1+
[2021-10-21] MEDS: polyethylene glycoL 3350 17 GM POWD.PACK PO (20:40)
[2021-10-21] MEDS: LACTATED RINGERS 1,000 ML 1000 ML IV (20:51)
[2021-10-21 21:06] LABS: COVID19 -Nasal RAPID Negative (Negative)
[2021-10-21 22:56] LABS: Lactate (Lactic Acid) 1.8 mmol/L (0.7-2.1)
[2021-10-21] MEDS: SODIUM CHLORIDE 0.9% 1,000 ML 75 ML IV (23:44)
[2021-10-21] MEDS: cefTRIAXone 1,000 MG in SODIUM CHLORIDE 0.9% 100 ML 75 ML IV (23:44)
[2021-10-21] MEDS: ONDANSETRON 4 MG/2 ML INJ IV (23:45)
[2021-10-21] MEDS: ACETAMINOPHEN 325 MG TABLET 650 MG PO (23:45)
[2021-10-22] VITALS (14 sets, daily range): BP systolic 93–107; BP diastolic 58–76; PULSE 91–109; RESP 15–18; TEMP 36.4–36.9; O2SAT 95–100
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
[2021-10-22] MEDS: CYCLOBENZAPRINE 10 MG TABLET PO ×3 (01:14→15:00)
[2021-10-22] MEDS: INSULIN GLARGINE 100 UNIT/ML 3ML PEN 10 UNIT SUBCUT ×2 (03:02→22:17)
[2021-10-22] MEDS: ACETAMINOPHEN 325 MG TABLET 650 MG PO ×2 (05:24→20:24)
[2021-10-22] MEDS: ONDANSETRON 4 MG/2 ML INJ IV (07:46)
--- NOTE | 2021-10-22 08:27 | PM.PN.1 ---
Subjective Subjective Interval history: Patient reports feeling slightly better than yesterday. She denies any emesis overnight. She reports having an appetite and is going to attempt having some breakfast. She denies any new, active complaints. Exam Vital Signs (past 8 hours): - 10/22/21 02:03 10/22/21 02:56 10/22/21 05:42 Temperature 98.5 F Pulse Rate 98 H Respiratory Rate 16 Blood Pressure 100/65 Pulse Oximetry 100 100 100 10/22/21 06:00 Temperature Pulse Rate Respiratory Rate Blood Pressure Pulse Oximetry 98 Oxygen Delivery Method Room Air Oxygen Flow Rate 0 Narrative Exam Narrative: GEN: cachectic, chronically ill appearing, appears older than stated age HEENT: dry mucous membranes, no scleral icterus appreciated NECK: trachea midline, no JVD CV: RRR, S1 and S2 heart sounds normal, no murmurs appreciated PULM: clear bilaterally, no wheezes ABD: soft, non-distended, slight suprapubic tenderness appreciated, bowel sounds present EXT: warm and well perfused with no edema NEURO: awake, alert, oriented, no focal deficits Objective Labs Result Diagrams: 10/21/21 19:24 10/21/21 17:00 Labs: Laboratory Results - last 24 hr 10/21/21 10/21/21 10/21/21 17:00 17:14 19:24 WBC 10.7 RBC 3.45 L Hgb 8.7 L Hct 27.4 L MCV 79.4 L MCH 25.3 L MCHC 31.9 RDW 20.3 H Plt Count 1104 H* Neut % (Auto) 79.8 H Lymph % (Auto) 13.1 L Ray % (Auto) 5.9 Eos % (Auto) 0.7 L Baso % (Auto) 0.5 Neut # (Auto) 8500 H Lymph # (Auto) 1400 Ray # (Auto) 600 Eos # (Auto) 100 Baso # (Auto) 100 Platelet Estimate Increased on smear RBC Morphology See below Hypochromasia 1+ H Anisocytosis 2+ H Microcytosis 1+ H Target Cells 1+ H Schistocytes 1+ H VBG pH 7.41 VBG pCO2 24.0 L VBG pO2 70 H VBG HCO3 15 L VBG Total CO2 16 L VBG O2 Saturation 95 H VBG Base Excess -9.0 L Sodium 137 Potassium 3.8 Chloride 112 H Carbon Dioxide 17 L BUN 6 L Creatinine 0.39 L Estimated GFR > 60.0 BUN/Creatinine Ratio 15.4 Glucose 221 H Lactate Calcium 8.0 L Total Bilirubin 0.5 AST 28 ALT 23 Alkaline Phosphatase 209 H Total Protein 5.6 L Albumin 2.5 L Globulin 3.1 Albumin/Globulin Ratio 0.8 L Ketones 1.65 H SARS-CoV-2 (PCR) 10/21/21 10/21/21 20:43 22:38 WBC RBC Hgb Hct MCV MCH MCHC RDW Plt Count Neut % (Auto) Lymph % (Auto) Ray % (Auto) Eos % (Auto) Baso % (Auto) Neut # (Auto) Lymph # (Auto) Ray # (Auto) Eos # (Auto) Baso # (Auto) Platelet Estimate RBC Morphology Hypochromasia Anisocytosis Microcytosis Target Cells Schistocytes VBG pH VBG pCO2 VBG pO2 VBG HCO3 VBG Total CO2 VBG O2 Saturation VBG Base Excess Sodium Potassium Chloride Carbon Dioxide BUN Creatinine Estimated GFR BUN/Creatinine Ratio Glucose Lactate 1.8 Calcium Total Bilirubin AST ALT Alkaline Phosphatase Total Protein Albumin Globulin Albumin/Globulin Ratio Ketones SARS-CoV-2 (PCR) Negative [facility] Medical History Alcohol intoxication Closed hip fracture COVID DKA (diabetic ketoacidoses) DKA (diabetic ketoacidosis) Fibromyalgia Gastroesophageal reflux disease Insulin dependent diabetes mellitus Lupus Osteoporosis Surgical History No pertinent past surgical history Family History Mother Diabetes mellitus Congestive heart failure Pancreatic cancer Father Diabetes mellitus Brother Diabetes mellitus Pancreatitis Sister Drug overdose Social History household members: family Smoking Status: Former smoker alcohol intake: current Assessment & Plan Assessment & Plan narrative: Ms. Garnica 48W is a Type 1 Diabetes, recent COVID infection, recent CVA, lupus who presents with nausea, vomiting, abdominal pain found to have UTI. 1. UTI, acute -parker-susceptible E. coli on urine culture -IV ceftriaxone on-board (started on Oct 21) 2. Nausea, vomiting, abdominal pain -likely multifactorial from UTI, diabetes, chronic pancreatitis -treat with IV fluids, antibiotics and pain control -if does not improve may need CT abdominal imaging -monitor closely for development of DKA 2. Type 1 Diabetes with hyperglycemia -blood sugar in 220s on arrival -ketones positive, and has metabolic acidosis, anion gap of 8, pH normal not in DKA -given 10U insulin tonight, then order for patient home dose 20U daily (but will order 10U BID) -order insulin sliding scale, check glucose achs -check a1c 3. Recent CVA -recent admission in july where she received tpa and then was transferred for CVA -acquire records -hold asa for anemia 4. Fibromyalgia with anxiety/depression -continue buspirone, duloxetine, and flexeril 5. Lupus -per patient on recent flare 6. Anemia, acute on chronic -etiology unclear -hemoglobin 8.7, last hemoglobin 3 days ago was 11.1 -per patient no active bleeding -previous hemoglobin has been lower than 11 -monitor hemoglobin closely, transfuse for <7 -with low MCV presume possible iron deficiency 7. Chronic pancreatitis -per patient she takes pancreatic enzyme 8. Severe protein calorie malnutrition, cachexia -dietary consult 9. Reactive thrombocytosis -likely secondary to infection -trend daily CODE: Full Proxy: Jhonny Johnson, family I have utilized all available resources to reconcile patient's home medications Time Spent With Patient Critical Care time: I spent a total of [] minutes of critical care time on this patient's care today; this time is exclusive of procedural time. Quality VTE Deep Vein Thrombosis/Pulmonary Embolism Present on Admission: No MIPS - Admit I confirm the patient?s Advance Care Plan is present, Code status is documented, Surrogate decision maker is in patient?s record [If Yes, STOP here]: Yes
--- NOTE | 2021-10-22 09:33 | DI.RAD.S_ITS ---
PROCEDURE: XR CHEST FOR PICC 1V INDICATIONS: line plaement COMPARISON: [facility], CR, XR CHEST 1V, 10/08/2021, 20:55. FINDINGS: PICC was placed by the intravenous therapy team from the left side. Fluoroscopic spot film demonstrates the tip of PICC projecting to the area of SVC. IMPRESSION: Tip of PICC projects to the area of SVC. Dictated by: Levy Condon M.D. on 10/22/2021 at 10:33 Approved by: Levy Condon M.D. on 10/22/2021 at 10:34
--- NOTE | 2021-10-22 09:45 | PT.IIE ---
Current Diagnoses Urinary tract infection, site not specified (10/21/21) Medical History (Last Reviewed 10/22/21 @ 00:22 by David Royal MD) Alcohol intoxication Closed hip fracture COVID DKA (diabetic ketoacidoses) DKA (diabetic ketoacidosis) Fibromyalgia Gastroesophageal reflux disease Insulin dependent diabetes mellitus Lupus Osteoporosis Physical Therapy Inpatient Evaluation/Re-Eval M1 PT/OT-IP Prior Functional Status Start: 10/22/21 13:58 Freq: NEEDED Status: Active Protocol: Document 10/22/21 09:45 AB (Rec: 10/22/21 14:10 AB [email or web address]) Medical Review Prior Functional Status Medical History Reviewed Yes Communication able to make needs known Mobility and Gait pt stated that she is modified independent with ambulation using FWW but occasionally needing assistance from her daughter; daughter assists her with showers Social History Household Members family Living Arrangements House Number of Floors (Floors) One Floor Number of Stairs To Enter/Railing? ramp to enter Home Environment Standard Height Toilet,Tub/ Shower Home Equipment Front Wheel Walker,Hand Held Shower,Grab Bars In Shower Additional Social History Comment pt lives with her cousin but her daughter is staying with them at this time and will stay as long as needed to assist pt M2 PT-IP Current Condition Start: 10/22/21 13:58 Freq: NEEDED Status: Active Protocol: Document 10/22/21 09:45 AB (Rec: 10/22/21 14:10 AB [email or web address]) Physical Therapy Current Condition Current Condition Evaluation Date 10/22/21 Treatment Diagnosis UTI; constipation; difficulty in walking Onset Date 10/21/21 M3 PT-IP Subjective Start: 10/22/21 13:58 Freq: NEEDED Status: Active Protocol: Document 10/22/21 09:45 AB (Rec: 10/22/21 14:10 [email or web address]) Subjective Physical Therapy Visit Type Type Initial Evaluation Visit Start Time 09:45 Visit Stop Time 10:25 Total Visit Minutes 40 Number of PASSPORT SUPPORT ASSOCIATE Visits 0 Physical Therapy Visit Comments Patient Comments agreeable to do PT but wants to just go back to bed afterwards; stated that she is just tired Therapy Pain Assessment Pain When Pain Assessed At Rest Pain Present Pain Present Pain Reported Location back Intensity 7 Description Chronic Pain Management Techniques Distraction,Modification of Treatment M4 PT-IP Mobility and Gait Start: 10/22/21 13:58 Freq: NEEDED Status: Active Protocol: Document 10/22/21 09:45 AB (Rec: 10/22/21 14:10 AB [email or web address]) PT-Bed Mobility Assessment Supine to Sit Supine to Sit Contact Guard Assistance Sit to Supine Sit to Supine Standby Assistance PT-Transfer Assessment Sit to and From Stand Sit to and from Stand Minimal Assistance,1 Person Assistance,Use of Upper Extremities Equipment Transfer Assistive Device Gait Belt,Front Wheeled Walker Orthotic/Prosthetic Devices or Brace: No Comments Mobility Comments pt completed supine to sit CGA and cues. pt was able to sit on EOB SBA. completed sit to stand min A and cues and ambulated in room using FWW min A ~ 30 ft. presents with slow antalgic gait with increase forward trunk posture . pt requested to go back to bed. completed sit to supine SBA. positioned pt in bed. call light and table placed within reach. Gait Assessment Gait Gait Assistance Required: Minimum Assistance Distance (Feet) 30 Able to Maintain Weight Bearing Status Yes During Gait Assistive Devices Assistive Device Gait Belt,Front Wheeled Walker Orthotic/Prosthetic Devices or Brace: No Gait Deviations General Gait Pattern Antalgic,Decreased Stride Length,Decreased Feet Clearance,Flexed Trunk Factors Limiting Gait Function Factors Limiting Gait Function Decreased Activity Tolerance, Decreased Strength,Limited Range of Motion,Pain,Poor Balance,Poor Safety Awareness PT-Balance Assessment Sitting Balance and Reactions Static Sitting Balance Ability Good Dynamic Sitting Balance Ability Good Standing Balance and Reactions Static Standing Balance Ability Fair Dynamic Standing Balance Ability Fair Device Used FWW M5 PT-IP Objective Assessments Start: 10/22/21 13:58 Freq: NEEDED Status: Active Protocol: Document 10/22/21 09:45 AB (Rec: 10/22/21 14:10 AB [email or web address]) Orientation Orientation/Cognition Level of Alertness Alert Orientation Name,Place,Situation Language Function Ability No Deficits Noted Safety Awareness Decreased Safety Awareness Memory Description Short Term Impaired Strength Lower Extremity Strength Hip 3+/5 Knee 4-/5 Sensation Assessment Sensation Gross Sensation WNL Muscle Tone Muscle Tone WNL Yes M6 PT-IP Treatment Start: 10/22/21 13:58 Freq: NEEDED Status: Active Protocol: Document 10/22/21 09:45 AB (Rec: 10/22/21 14:10 AB [email or web address]) Physical Therapy Treatment Education Education Provided Safety M7 PT-IP Assessment and Plan Start: 10/22/21 13:58 Freq: NEEDED Status: Active Protocol: Document 10/22/21 09:45 AB (Rec: 10/22/21 14:10 AB [id number]) PT Summary Assessment and Plan Potential Rehabilitation Potential Fair Status of Condition at Evaluation Evolving Summary Impairments Pain,ROM,Strength,Balance, Coordination,Sensation,Tone, Cognition,Bed Mobility, Transfers,Gait,Activity Tolerance Assessment Summary pt requiring min A with mobility but with decrease activity tolerance affecting mobility independence. pt plans to go home and will have her daughter to assist her at home. will conduct caregiver training when appropriate. will continue to assess progress. Goals Bed Mobility Goal Independent Transfer Goal Independent,Front Wheeled Walker Gait Goal Independent,Front Wheel Walker Gait Distance 125 Days to Meet Goals 10 Frequency of Treatment Frequency Of Treatment Once a Day Treatment Plan Physical Therapy Treatment Plan Bed Mobility Training,Transfer Training,Gait Training, Therapeutic Exercise,Balance Retraining,Post Op Education, Discharge Planning,Hot or Cold Pack,Neuromuscular Re-ed, Coordination Retraining,Manual Therapy Recommendations To Nursing Amount of Assist Needed 1 Person Assist Discharge Recommendations PT Discharge Recommendations Home with Assistance,Home Health Transportation Needs at Discharge Private Vehicle
[2021-10-22] MEDS: BUSPIRONE 5 MG TABLET 20 MG PO ×3 (10:32→21:23)
[2021-10-22] MEDS: ENOXAPARIN 40 MG/0.4 ML SYRINGE SUBCUT (10:33)
[2021-10-22] MEDS: SODIUM CHLORIDE 0.9% FLUSH 10 ML IV ×3 (10:33→22:21)
[2021-10-22] MEDS: DULOXETINE 30 MG CAPSULE 60 MG PO (10:33)
[2021-10-22] MEDS: KETOROLAC 30 MG/ML VIAL IV ×2 (11:31→20:05)
[2021-10-22] MEDS: LIDOCAINE VISCOUS 2% 30 ML, MAG HYDROX/ALUMINUM/SIMETH SUS 30 ML, NYSTATIN SUSP 3,000,0... MM ×2 (12:19→18:11)
[2021-10-22 12:20] LABS: Add Manual Diff / Slide Review NO; Basophils Absolute Auto 0 /uL (0-100); Basophils Percent Auto 0.2 % (0-2); Eosinophils Absolute Auto 0 /uL (0-450); Eosinophils Percent Auto 0.5 % (2-4); Hemoglobin 8.2 g/dL (12.0-16.0); Lymphocytes Absolute Auto 1300 /uL (1100-4500); Lymphocytes Percent Auto 14.6 % (25-40); Mean Corpuscular HGB Conc 32.7 % (30-36); Mean Corpuscular Volume 79.2 fL (80-100); Monocytes Absolute Auto 800 /uL (0-900); Neutrophils Absolute Auto 7000 /uL (1500-7000); Neutrophils Percent Auto 75.7 % (50-75); Red Blood Cell Count 3.15 X10^6/uL (4.0-5.2); Red Cell Distribution Width 21.1 % (11.6-14.8); White Blood Cell Count 9.2 X10^3/uL (4.5-11.0)
[2021-10-22 12:22] LABS: Platelet Count 997 X10^3/uL (150-400)
[2021-10-22 12:31] LABS: BUN Creatinine Ratio 12.5 (6-22); Blood Urea Nitrogen 5 mg/dL (7-17); Calcium 7.3 mg/dL (8.4-10.2); Carbon Dioxide 20 mmol/L (22-32); Chloride 112 mmol/L (98-107); Estimated Glomerular Filt Rate > 60.0 mL/min (>60); Glucose 111 mg/dL (70-100); HEMOLYSIS < 15 (0-50); Magnesium 1.9 mg/dL (1.6-2.3); Potassium 3.2 mmol/L (3.4-5.1); Sodium 137 mmol/L (137-145)
[2021-10-22 12:35] LABS: Anisocytosis 2+; Hypochromasia 1+
[2021-10-22 12:36] LABS: Hemoglobin A1C% w Est Avg Glu 8.6 % (4.0-6.0); Target Cells 1+
[2021-10-22 12:39] LABS: Enterococcus species Not Detected (Not Detect); Listeria monocytogenes Not Detected (Not Detect); Staphylococcus species Not Detected (Not Detect)
[2021-10-22 12:40] LABS: Acinetobacter baumannii Not Detected (Not Detect); Candida albicans Not Detected (Not Detect); Candida glabrata Not Detected (Not Detect); Candida krusei Not Detected (Not Detect); Candida parapsilosis Not Detected (Not Detect); Candida tropicalis Not Detected (Not Detect); E. coli Detected (Not Detect); Enterobacter cloacae complex Not Detected (Not Detect); Enterobacteriaceae species Detected (Not Detect); Haemophilus influenzae Not Detected (Not Detect); KPC (carbapenem-resist gene) Not Detected (Not Detect); Neisseria meningitidis Not Detected (Not Detect); Proteus species Not Detected (Not Detect); Pseudomonas aeruginosa Not Detected (Not Detect); Serratia marcescens Not Detected (Not Detect); Streptococcus agalactiae (Gr B Not Detected (Not Detect); Streptococcus pneumonia Not Detected (Not Detect); Streptococcus pyogenes (Gr A) Not Detected (Not Detect); Streptococcus species Not Detected (Not Detect)
--- NOTE | 2021-10-22 12:49 | CM.DANOTE ---
Patient is a 46 yo female who was admitted on 10/21/21 for Swelling. Pt has MEDICAID and [facility] for insurance and her PCP is Jhonny Evans at the [facility]. EMR was reviewed. Per MD, pt with recent hx of CVA and had been positive for COVID a couple months ago and pt has a complicated medical hx including lupus, fibromyalgia at baseline. Pt admitted for UTI and on IV-Abx. Per PT, able to complete initial eval this morning and feel pt will make progress for safe d/c home with family assist. Notified PT that pt's insurance will likely not cover HH or SNF as straight Medicaid. SW met bedside with pt and explained role and she confirms she still lives in [place] with her cousin, some extended family, and that her Dtr has been staying with her for assist since her prior discharge from the hospital in Aug and can stay as long as needed. Pt confirms that she is mostly independent with ADL's but uses a walker and Dtr has been assisting with chores and meals. Pt confirms she was transferred in Jul 2021 a couple months ago from [facility] where she had been admitted for COVID+pneumonia and had a CVA while admitted and was transferred to [facility]. Pt states she discharged home with family assist from [facility] and no further services had been set up. Pt states she still feels weak and fatigued but felt steady working with PT and does not anticipate any needs at d/c and confirms Dtr likely would transport home and assist at discharge. Plan: SW to follow closely for pt progress with PT towards confirming safe d/c home with family assist. Pt's insurance is a barrier to setting up further supportive services like HH. TERA Miller Discharge Planning/Care Management CM Discharge Assessment Start: 10/22/21 12:43 Freq: Status: Active Protocol: Document 10/22/21 12:44 BF (Rec: 10/22/21 12:47 BF [id number]) Discharge Planning Assessment Assigned Paper Slitter TERA Cuevas DPOA/Assigned Designee Name informally Dtr Advance Directives? No Advance Directives on File No History Provided By Patient,Medical Record Has Patient been admitted in last 30 No days? Comment last admit in Jul 2021 few months ago and was transferred to [facility] Prior Living Arrangements House Household Members family Type of transporation used prior to Relies on Others admit Independent with ADL's Yes: mostly Is patient alert and oriented? Yes: mostly Needs Assistance With Meal Prep,Managing Medications ,Home Chores / Shopping Caregiver for Another No DME Already Rented / Owned FWW / Walker Comment Pt's insurance will likely not cover HH or SNF Barriers to Discharge No Discharge Plan Home Transportation Arrangement Family Referrals Initiated None needed Additional Comment Pt's insurance does not cover HH If patient plan is SNF: Has PASSR been Yes completed? Whiteboard Updated in Patient Room with Yes name and ext. # of Paper Slitter Review Status In Process Please Provide Date Initial DC 10/22/21 Assessment Was Performed Next Review Type Continued Stay Review
--- NOTE | 2021-10-22 13:11 | DIET.CONS ---
Addendum entered by Liliana De La Torre 10/22/21 13:29: Recent BG improved from reported home readings. Today B H, 139. Rec goal of BG <180 mg/dL. MAR indicates scheduled for glargine 10u BID and SSI. Original Note: Dietary Consultation Note Admission Date: 10/21/2021 22:41 Assessment: 48 y/o F with T1DM, recent covid infection, recent CVA, lupus who presents with n/v, abdominal pain and found to have UTI. Valerie reports sores in her mouth and sore throat for two weeks. N/v and poor PO during this time with most kcals coming from jello. Popsicles, and ice cream. Also poor dentition without any teeth or dentures. Reports her problems with appetite began when she was dx with covid. Lost her sense of taste during that time. Cont to struggle with taste. Reports home BG 250-300 mg/dL prior to admit. Even prior to covid endorses >200 mg/dL as usual readings. Does not have any DM technology. uses SSI. Has not seen her PCP in person in quite some time, telephone apt only. Endorses significant weight loss. Weight hx indicates unintentional weight loss. -26# or 20.5% over 3 months (severe) -32# or 23.5% over 6 months (severe) Significant weight loss likely from covid dx, poor po, loss of taste, mouth sores, and perhaps hyperglycemia. Nutrition focused physical exam indicates significant scooping of temporal region, prominent wasting in clavicle and boxed shoulders, all indicative of malnutrition. Ht: 160.02 cm Wt: 47 kg BMI: 18.3 UBW: 130# Last BM: 10/18/21 (10/21/21 22:58) MNA: 5 Jag Score: 17 Diet: 10/21/21 Breakfast Carbohydrate Consistent Diet Diet Modifications: glucerna twice per day, easy chew meals Carbohydrate level: Medium (3 CHO) Labs: RBC 3.15 X10^6/uL (4.0-5.2) L 10/22/21 05:00 Hgb 8.2 g/dL (12.0-16.0) L 10/22/21 05:00 Hct 25.0 % (36-46) L 10/22/21 05:00 Creatinine 0.40 mg/dL (0.52-1.04) L 10/22/21 05:00 Hemoglobin A1c 8.6 % (4.0-6.0) H 10/22/21 05:00 Lactate 1.8 mmol/L (0.7-2.1) 10/21/21 22:38 Nutrition Diagnosis: Acute on chronic severe protein calorie malnutrition r/t poor po with discomfort in her mouth and throat, n/v, hyperglycemia, loss of taste c h/o covid aeb reported inadequate PO and GI symptoms for 2 weeks, severe weight loss of >7.5% in 3 months and >10% in 6 months, and significant muscle wasting in temporal, clavicle, and shoulder areas. Interventions: 1. Glucerna ONS BID to support PRO and kcal intake 2. Easy chew meals to support comfortable intake c current barriers of dentition 3. Discussed OP DSME resources and provided contact info. Agreed to coordinate care after discharge. EER: 1650 kcals (35kcal/kg per BMI) 70-80g PRO (1.5-1.7g/kg-per CVA and malnutrition) Monitoring/Evaluations: PO and ONS acceptance Electronically Signed by: Liliana De La Torre 10/22/21 13:11 Clinical Dietitian [address] [address]
[2021-10-22] MEDS: POTASSIUM CHLORIDE 20 MEQ TAB 40 MEQ PO ×2 (14:58→20:24)
[2021-10-22] MEDS: MORPHINE 2 MG/ML INJ IV ×2 (16:19→20:05)
--- NOTE | 2021-10-22 16:34 | PC.NURSE ---
Pt watching TV most of day, A/O Lungs cl/97% RA C/O discomfort across abdomen. Med w/Torodol and MS w/ some relief. JENIFFER PICC intact/patent. Dsg changed this afternoon due to saturation. No further drainage noted. Call light w//in reach, bed alarm on for pt safety. Continue w/plan of care.
[2021-10-22] MEDS: INSULIN LISPRO 100 UNIT/ML 3ML VIAL SUBCUT (22:17)
[2021-10-22] MEDS: cefTRIAXone 1,000 MG in SODIUM CHLORIDE 0.9% 100 ML 150 ML IV (23:29)
[2021-10-23] VITALS (12 sets, daily range): BP systolic 104–132; BP diastolic 70–84; PULSE 89–111; RESP 12–20; TEMP 36.2–37.2; O2SAT 96–100
[2021-10-23] MEDS: MORPHINE 2 MG/ML INJ IV ×5 (00:16→22:40)
--- NOTE | 2021-10-23 00:20 | PC.NURSE ---
2400: ecoli in blood/+ blood cx. continues w/ Iv Rocephin via 2 lumen picc line to LUE. no ASE noted r/t IV abx, remains afebrile. patient requested snack, glucose 65. orange juice, soup/crackers and string cheese offered. half accepted. reports having had a low blood sugar of 32 last week. will check again thru the noc. urine is much improved, clear michelle, no foul odor noted. ice water available at bedside.
[2021-10-23] MEDS: ACETAMINOPHEN 325 MG TABLET 650 MG PO (04:55)
[2021-10-23 06:56] LABS: Add Manual Diff / Slide Review NO; Basophils Absolute Auto 0 /uL (0-100); Basophils Percent Auto 0.2 % (0-2); Eosinophils Absolute Auto 100 /uL (0-450); Eosinophils Percent Auto 0.6 % (2-4); Hematocrit 25.2 % (36-46); Hemoglobin 8.2 g/dL (12.0-16.0); Lymphocytes Absolute Auto 1700 /uL (1100-4500); Lymphocytes Percent Auto 18.9 % (25-40); Mean Corpuscular HGB Conc 32.6 % (30-36); Mean Corpuscular Hemoglobin 25.9 PG (26-34); Mean Corpuscular Volume 79.2 fL (80-100); Monocytes Absolute Auto 800 /uL (0-900); Neutrophils Absolute Auto 6200 /uL (1500-7000); Neutrophils Percent Auto 71.3 % (50-75); Red Blood Cell Count 3.18 X10^6/uL (4.0-5.2); Red Cell Distribution Width 20.3 % (11.6-14.8); White Blood Cell Count 8.8 X10^3/uL (4.5-11.0)
[2021-10-23 07:08] LABS: BUN Creatinine Ratio 11.6 (6-22); Blood Urea Nitrogen 5 mg/dL (7-17); Calcium 7.6 mg/dL (8.4-10.2); Carbon Dioxide 23 mmol/L (22-32); Chloride 110 mmol/L (98-107); Estimated Glomerular Filt Rate > 60.0 mL/min (>60); Glucose 125 mg/dL (70-100); HEMOLYSIS < 15 (0-50); Potassium 4.6 mmol/L (3.4-5.1); Sodium 138 mmol/L (137-145)
[2021-10-23 07:16] LABS: HEMOLYSIS < 15 (0-50)
[2021-10-23 07:18] LABS: Platelet Count 939 X10^3/uL (150-400)
[2021-10-23 07:19] LABS: Anisocytosis 2+; Platelet Estimate Increased on smear
[2021-10-23 07:20] LABS: Iron < 10 ug/dL (37-170)
[2021-10-23 07:27] LABS: Percent Iron Saturation 9 % (15-50); Total Iron Binding Capacity 114 ug/dL (265-497)
[2021-10-23 07:30] LABS: Transferrin < 80 mg/dL (206-381)
[2021-10-23] MEDS: LIDOCAINE VISCOUS 2% 30 ML, MAG HYDROX/ALUMINUM/SIMETH SUS 30 ML, NYSTATIN SUSP 3,000,0... MM ×3 (08:30→17:08)
[2021-10-23] MEDS: SODIUM CHLORIDE 0.9% FLUSH 10 ML IV ×2 (08:33→20:52)
[2021-10-23] MEDS: ENOXAPARIN 40 MG/0.4 ML SYRINGE SUBCUT (08:34)
[2021-10-23] MEDS: DULOXETINE 30 MG CAPSULE 60 MG PO (08:34)
[2021-10-23] MEDS: ONDANSETRON 4 MG/2 ML INJ IV ×2 (08:39→16:57)
--- NOTE | 2021-10-23 11:36 | PT.IPTN ---
Current Diagnoses Urinary tract infection, site not specified (10/21/21) Physical Therapy Treatment Note M2 PT-IP Current Condition Start: 10/22/21 13:58 Freq: NEEDED Status: Active Protocol: Document 10/22/21 09:45 AB (Rec: 10/22/21 14:10 AB [id number]) Physical Therapy Current Condition Current Condition Evaluation Date 10/22/21 Treatment Diagnosis UTI; constipation; difficulty in walking Onset Date 10/21/21 M3 PT-IP Subjective Start: 10/22/21 13:58 Freq: NEEDED Status: Active Protocol: Document 10/23/21 11:23 KS (Rec: 10/23/21 13:19 KS [id number]) Subjective Physical Therapy Visit Type Type Treatment Note Visit Start Time 11:23 Visit Stop Time 11:36 Total Visit Minutes 13 Number of MODEL DRESSER Visits 1 Physical Therapy Visit Comments Patient Comments agreeable to do PT but wants to just go back to bed afterwards due to fatigue and nausea. M4 PT-IP Mobility and Gait Start: 10/22/21 13:58 Freq: NEEDED Status: Active Protocol: Document 10/23/21 11:23 KS (Rec: 10/23/21 13:19 KS [id number]) PT-Bed Mobility Assessment Supine to Sit Supine to Sit Standby Assistance Sit to Supine Sit to Supine Standby Assistance PT-Transfer Assessment Sit to and From Stand Sit to and from Stand Contact Guard Assistance,1 Person Assistance,Use of Upper Extremities Equipment Transfer Assistive Device Gait Belt,Front Wheeled Walker Orthotic/Prosthetic Devices or Brace: No Transfers Transfer Destination Bed Transfer Technique Pt ambulated w/ FWW Transfer Ability Level of Assist Contact Guard Assistance,1 Person Assistance,Use of Upper Extremities Comments Mobility Comments Pt in bed upon arrival and agreeable to ambulation around room. SBA and cues for sup<> sit and scooting EOB. Pt reported nausea upon sitting up, but no emesis and feeling fine to ambulate. Pt CGA for sit<>stand w/ FWW. She then ambulated ~40 ft around room w / FWW and CGA. Decreased stride and foot clearance due to weakness and pt w/ quick approach to fatigue. She then returned to bed SBA and performed 1x10 bilateral ankle pumps, quad sets, and glute sets. Pt left in bed w/ alarm on and all needs in reach. Gait Assessment Gait Gait Assistance Required: Contact Guard Assist Distance (Feet) 40 Able to Maintain Weight Bearing Status Yes During Gait Assistive Devices Assistive Device Gait Belt,Front Wheeled Walker Orthotic/Prosthetic Devices or Brace: No Gait Deviations General Gait Pattern Antalgic,Decreased Stride Length,Decreased Feet Clearance,Flexed Trunk Factors Limiting Gait Function Factors Limiting Gait Function Decreased Activity Tolerance, Decreased Strength,Limited Range of Motion,Pain,Poor Balance,Poor Safety Awareness Comments Gait Comments Please refer to mobility section for details. PT-Balance Assessment Sitting Balance and Reactions Static Sitting Balance Ability Good Dynamic Sitting Balance Ability Good Standing Balance and Reactions Static Standing Balance Ability Fair Dynamic Standing Balance Ability Fair Device Used FWW M5 PT-IP Objective Assessments Start: 10/22/21 13:58 Freq: NEEDED Status: Active Protocol: Document 10/22/21 09:45 AB (Rec: 10/22/21 14:10 AB [id number]) Orientation Orientation/Cognition Level of Alertness Alert Orientation Name,Place,Situation Language Function Ability No Deficits Noted Safety Awareness Decreased Safety Awareness Memory Description Short Term Impaired Strength Lower Extremity Strength Hip 3+/5 Knee 4-/5 Sensation Assessment Sensation Gross Sensation WNL Muscle Tone Muscle Tone WNL Yes M6 PT-IP Treatment Start: 10/22/21 13:58 Freq: NEEDED Status: Active Protocol: Document 10/23/21 11:23 KS (Rec: 10/23/21 13:19 KS [id number]) Physical Therapy Treatment Exercises Exercises Ankle Pumps,Gluteal Sets,Quad Sets Education Education Provided Safety M7 PT-IP Assessment and Plan Start: 10/22/21 13:58 Freq: NEEDED Status: Active Protocol: Document 10/23/21 11:23 KS (Rec: 10/23/21 13:19 KS [id number]) PT Summary Assessment and Plan Potential Rehabilitation Potential Fair Status of Condition at Evaluation Evolving Summary Impairments Pain,ROM,Strength,Balance, Coordination,Sensation,Tone, Cognition,Bed Mobility, Transfers,Gait,Activity Tolerance Progress Towards Goals Slow Progress due to Medical Issues,Slow Progress due to Activity Tolerance Assessment Summary Pt continues to be limited by fatigue and low tolerance for activity. She was SBA for bed mobility and CGA for ~40 ft ambulation w/ FWW but unable to ambulate futher due to reported high level of fatigue . Pt able to complete LE strengthening exercises and agreeable to do them while in bed. She will require assist at home. Goals Bed Mobility Goal Independent Transfer Goal Independent,Front Wheeled Walker Gait Goal Independent,Front Wheel Walker Gait Distance 125 Days to Meet Goals 10 Frequency of Treatment Frequency Of Treatment Once a Day Treatment Plan Physical Therapy Treatment Plan Bed Mobility Training,Transfer Training,Gait Training, Therapeutic Exercise,Balance Retraining,Post Op Education, Discharge Planning,Hot or Cold Pack,Neuromuscular Re-ed, Coordination Retraining,Manual Therapy Other Recommendations and Next Treatment Increase ambulation distance, Focus ther ex. Recommendations To Nursing Amount of Assist Needed 1 Person Assist Discharge Recommendations PT Discharge Recommendations Home with Assistance,Home Health Transportation Needs at Discharge Private Vehicle
[2021-10-23] MEDS: BUSPIRONE 5 MG TABLET 20 MG PO ×3 (11:44→20:48)
[2021-10-23] MEDS: INSULIN GLARGINE 100 UNIT/ML 3ML PEN 10 UNIT SUBCUT ×2 (12:37→20:49)
[2021-10-23] MEDS: INSULIN LISPRO 100 UNIT/ML 3ML VIAL SUBCUT (12:38)
--- NOTE | 2021-10-23 13:12 | P.PN_ITS ---
Subjective Subjective Interval history: Patient endorses nausea this morning. She reports that it's a chronic issue. She's aware that she has iron-deficiency anemia. She endorses having a varied diet at home, and eating well, although her BMI and iron deficiency anemia here do not support that. She is asking for more Zofran today. She reports pain is well-controlled. Exam Vital Signs (past 8 hours): - 10/23/21 08:30 10/23/21 11:00 10/23/21 12:00 Temperature 97.7 F 97.1 F L Pulse Rate 95 H 111 H Respiratory Rate 13 15 Blood Pressure 106/72 123/78 Pulse Oximetry 99 99 100 Oxygen Delivery Method Room Air Oxygen Flow Rate 0 Narrative Exam Narrative: GEN: cachectic, chronically ill appearing, appears older than stated age HEENT: dry mucous membranes, no scleral icterus appreciated NECK: trachea midline, no JVD CV: RRR, S1 and S2 heart sounds normal, no murmurs appreciated PULM: clear bilaterally, no wheezes ABD: soft, non-distended, slight suprapubic tenderness appreciated, bowel sounds present EXT: warm and well perfused with no edema NEURO: awake, alert, oriented, no focal deficits Objective Labs Result Diagrams: 10/23/21 06:30 10/23/21 06:30 Labs: Laboratory Results - last 24 hr 10/23/21 10/23/21 10/23/21 06:30 06:30 06:30 WBC 8.8 RBC 3.18 L Hgb 8.2 L Hct 25.2 L MCV 79.2 L MCH 25.9 L MCHC 32.6 RDW 20.3 H Plt Count 939 H* Neut % (Auto) 71.3 Lymph % (Auto) 18.9 L [place] % (Auto) 9.0 Eos % (Auto) 0.6 L Baso % (Auto) 0.2 Neut # (Auto) 6200 Lymph # (Auto) 1700 [place] # (Auto) 800 Eos # (Auto) 100 Baso # (Auto) 0 Platelet Estimate Increased on smear RBC Morphology Not Reportable Anisocytosis 2+ H Sodium 138 Potassium Cancelled 4.6 D Chloride 110 H Carbon Dioxide 23 BUN 5 L Creatinine 0.43 L Estimated GFR > 60.0 BUN/Creatinine Ratio 11.6 Glucose 125 H Calcium 7.6 L Magnesium 2.0 Iron TIBC % Saturation Transferrin 10/23/21 06:30 WBC RBC Hgb Hct MCV MCH MCHC RDW Plt Count Neut % (Auto) Lymph % (Auto) [place] % (Auto) Eos % (Auto) Baso % (Auto) Neut # (Auto) Lymph # (Auto) [place] # (Auto) Eos # (Auto) Baso # (Auto) Platelet Estimate RBC Morphology Anisocytosis Sodium Potassium Chloride Carbon Dioxide BUN Creatinine Estimated GFR BUN/Creatinine Ratio Glucose Calcium Magnesium Iron < 10 L TIBC 114 L % Saturation 9 L Transferrin < 80 L [facility] Medical History Alcohol intoxication Closed hip fracture COVID DKA (diabetic ketoacidoses) DKA (diabetic ketoacidosis) Fibromyalgia Gastroesophageal reflux disease Insulin dependent diabetes mellitus Lupus Osteoporosis Surgical History No pertinent past surgical history Family History Mother Diabetes mellitus Congestive heart failure Pancreatic cancer Father Diabetes mellitus Brother Diabetes mellitus Pancreatitis Sister Drug overdose Social History household members: family Smoking Status: Former smoker alcohol intake: current Assessment & Plan Assessment & Plan narrative: Ms. Garnica 48W is a Type 1 Diabetes, recent COVID infection, recent CVA, lupus who presents with nausea, vomiting, abdominal pain found to have UTI. 1. UTI, acute -parker-susceptible E. coli on urine culture -IV ceftriaxone on-board (started on Oct 21) 2. Nausea, vomiting, abdominal pain -likely multifactorial from UTI, diabetes, chronic pancreatitis -treat with IV fluids, antibiotics and pain control -if does not improve may need CT abdominal imaging -monitor closely for development of DKA 2. Type 1 Diabetes with hyperglycemia -blood sugar in 220s on arrival -ketones positive, and has metabolic acidosis, anion gap of 8, pH normal not in DKA -given 10U insulin tonight, then order for patient home dose 20U daily (but will order 10U BID) -order insulin sliding scale, check glucose achs -check a1c 3. Recent CVA -recent admission in July where she received tpa and then was transferred for CVA -acquire records -hold asa for anemia 4. Fibromyalgia with anxiety/depression -continue buspirone, duloxetine, and flexeril 5. SLE -per patient on recent flare 6. Anemia, acute on chronic, iron-deficiency -per patient no active bleeding -previous hemoglobin has been lower than 11 -monitor hemoglobin closely, transfuse for <7 7. Chronic pancreatitis -per patient she takes pancreatic enzyme 8. Severe protein calorie malnutrition, cachexia -dietary consult 9. Reactive thrombocytosis -likely secondary to iron deficiency and infection -trend daily VTE prophylaxis: Lovenox 40 mg daily Time Spent With Patient Critical Care time: I spent a total of [] minutes of critical care time on this patient's care today; this time is exclusive of procedural time. Quality VTE Deep Vein Thrombosis/Pulmonary Embolism Present on Admission: No
[2021-10-23] MEDS: KETOROLAC 30 MG/ML VIAL IV (13:21)
[2021-10-23] MEDS: cefTRIAXone 1,000 MG in SODIUM CHLORIDE 0.9% 100 ML 200 ML IV (22:36)
--- NOTE | 2021-10-23 23:32 | PC.NURSE ---
Patient is alert and oriented. Breath sounds CTA with RA sat of 98%. HRR but tachy in low 100's but does increase to 120's with activity. BT present and states she is passing flatus but has not had a BM since 10/18; no bowel meds ordered. Is voiding on BSC; states she has some dysuria and urgency with urination; on Ceftriaxone for UTI. Is able to move herself in bed. Gets up to BSC with walker and 1 assist. Has residual left sided weakness related to CVA in July. Refusing SCD's so reminded to ankle wave when awake. CBG was [address] Lemus was informed and order to only give 6 units of Lantus tonight. Allevyn dressing to back is CDI; patient reports area is a burn from a heating pad. Bruising noted on right UE. Fall risk score is high and bed alarm is activated. Complained of chronic back/stomach pain (chronic pancreatitis) so was medicated with Morphine at 2240 and is currently asleep. Blood culture came back as gram + cocci so Dr Lemus was informed and order received for Vancomycin.
[2021-10-24] VITALS (11 sets, daily range): BP systolic 105–141; BP diastolic 68–95; PULSE 73–107; RESP 16–18; TEMP 35.9–36.6; O2SAT 98–100
[2021-10-24] MEDS: VANCOMYCIN 1,000 MG/200 ML PIGGYBACK 200 MG IV (00:06)
[2021-10-24] MEDS: SODIUM CHLORIDE 0.9% 1,000 ML 75 ML IV ×2 (00:09→15:00)
[2021-10-24] MEDS: MORPHINE 2 MG/ML INJ IV ×2 (03:52→21:55)
[2021-10-24] MEDS: SODIUM CHLORIDE 0.9% FLUSH 10 ML IV ×4 (03:53→20:58)
[2021-10-24] MEDS: KETOROLAC 30 MG/ML VIAL IV ×2 (06:50→15:03)
[2021-10-24] MEDS: ONDANSETRON 4 MG/2 ML INJ IV (06:50)
--- NOTE | 2021-10-24 07:17 | PM.PN.1 ---
Subjective Subjective Interval history: She is seen today to follow-up her E coli urinary tract infection, bacteremia of E coli and Gram-positive cocci and type 1 diabetes mellitus. Her sugars have been consistently in the 30-70 range despite lowering her Lantus dose to 6 units twice a day. She has appeared quite weak. Exam Vital Signs (past 8 hours): - 10/24/21 03:25 Temperature 97.5 F L Pulse Rate 107 H Respiratory Rate 16 Blood Pressure 114/68 Pulse Oximetry 99 Oxygen Delivery Method Room Air Oxygen Flow Rate 0 Narrative Exam Narrative: Low volume voice, very weak appearing Alert and orient x3, in mild distress when sugars drop Heart is regular rate and rhythm without murmur Lungs are clear to auscultation bilaterally Abdomen is soft, bowel sounds positive, nontender, no organomegaly Extremities have no ankle edema Objective Labs Result Diagrams: 10/23/21 06:30 10/24/21 14:49 Labs: Laboratory Results - last 24 hr 10/23/21 10/23/21 10/23/21 06:30 06:30 06:30 WBC 8.8 RBC 3.18 L Hgb 8.2 L Hct 25.2 L MCV 79.2 L MCH 25.9 L MCHC 32.6 RDW 20.3 H Plt Count 939 H* Neut % (Auto) 71.3 Lymph % (Auto) 18.9 L [place] % (Auto) 9.0 Eos % (Auto) 0.6 L Baso % (Auto) 0.2 Neut # (Auto) 6200 Lymph # (Auto) 1700 [place] # (Auto) 800 Eos # (Auto) 100 Baso # (Auto) 0 Platelet Estimate Increased on smear RBC Morphology Not Reportable Anisocytosis 2+ H Sodium 138 Potassium 4.6 D Chloride 110 H Carbon Dioxide 23 BUN 5 L Creatinine 0.43 L Estimated GFR > 60.0 BUN/Creatinine Ratio 11.6 Glucose 125 H Calcium 7.6 L Magnesium 2.0 Iron < 10 L TIBC 114 L % Saturation 9 L Transferrin < 80 L PFSH Medical History Alcohol intoxication Closed hip fracture COVID DKA (diabetic ketoacidoses) DKA (diabetic ketoacidosis) Fibromyalgia Gastroesophageal reflux disease Insulin dependent diabetes mellitus Lupus Osteoporosis Surgical History No pertinent past surgical history Family History Mother Diabetes mellitus Congestive heart failure Pancreatic cancer Father Diabetes mellitus Brother Diabetes mellitus Pancreatitis Sister Drug overdose Social History household members: family Smoking Status: Former smoker alcohol intake: current Assessment & Plan Assessment & Plan narrative: Ms. Garnica 48W is a Type 1 Diabetes, recent COVID infection, recent CVA, lupus who presents with nausea, vomiting, abdominal pain found to have UTI. 1. E coli bacteremia/urosepsis with Gram-positive cocci in blood -parker-susceptible E. coli on urine and blood culture -IV ceftriaxone on-board (started on Oct 21) -started on IV vancomycin October 24 when additional blood cultures from October 21 were released -plan 7 days of E coli treatment, ceftriaxone until 10/28 IV -plan 7 days of vancomycin treatment, pending blood culture identification, until 10/31 IV 2. Nausea, vomiting, abdominal pain -likely multifactorial from UTI, diabetes, chronic pancreatitis -treated with IV fluid until able to eat. -monitor closely for development of DKA 2. Type 1 Diabetes with hyperglycemia -blood sugar in 220s on arrival -ketones positive, and has metabolic acidosis, anion gap of 8, pH normal not in DKA -given 10U insulin tonight, then order for patient home dose 20U daily (but will order 10U BID) -order insulin sliding scale, check glucose achs -check a1c -2 blood sugars dropped as low as 30 despite cutting glargine dose by half to 6 units twice a day. -2/5 glargine will be held and Lispro will be dosed 3 units with each meal, to be adjusted as indicated. 3. Recent CVA -recent admission in July where she received tpa and then was transferred for CVA -acquire records -hold asa for anemia 4. Fibromyalgia with anxiety/depression -continue buspirone, duloxetine, and flexeril 5. SLE -per patient on recent flare 6. Anemia, acute on chronic, iron-deficiency -per patient no active bleeding -previous hemoglobin has been lower than 11 -monitor hemoglobin closely, transfuse for <7 -8.2 on 10/24, recheck 2/7 7. Chronic pancreatitis -per patient she takes pancreatic enzyme 8. Severe protein calorie malnutrition, cachexia -dietary consult 9. Reactive thrombocytosis -939 on 10/24 -likely secondary to iron deficiency and infection -trend daily VTE prophylaxis: Lovenox 40 mg daily Time Spent With Patient Critical Care time: I spent a total of [] minutes of critical care time on this patient's care today; this time is exclusive of procedural time. Quality VTE Deep Vein Thrombosis/Pulmonary Embolism Present on Admission: No
[2021-10-24] MEDS: ENOXAPARIN 40 MG/0.4 ML SYRINGE SUBCUT (08:54)
[2021-10-24] MEDS: DULOXETINE 30 MG CAPSULE 60 MG PO (08:54)
[2021-10-24] MEDS: VANCOMYCIN 750 MG/150 ML PIGGYBACK 150 MG IV ×2 (08:54→17:50)
[2021-10-24] MEDS: INSULIN GLARGINE 100 UNIT/ML 3ML PEN 10 UNIT SUBCUT (08:58)
[2021-10-24] MEDS: ACETAMINOPHEN 325 MG TABLET 650 MG PO (09:33)
[2021-10-24] MEDS: BUSPIRONE 5 MG TABLET 20 MG PO ×3 (09:34→20:57)
[2021-10-24] MEDS: CYCLOBENZAPRINE 10 MG TABLET PO ×2 (09:34→20:58)
--- NOTE | 2021-10-24 10:13 | PT.IPTN ---
Current Diagnoses Urinary tract infection, site not specified (10/21/21) Physical Therapy Treatment Note M2 PT-IP Current Condition Start: 10/22/21 13:58 Freq: NEEDED Status: Active Protocol: Document 10/22/21 09:45 AB (Rec: 10/22/21 14:10 AB [id number]) Physical Therapy Current Condition Current Condition Evaluation Date 10/22/21 Treatment Diagnosis UTI; constipation; difficulty in walking Onset Date 10/21/21 M3 PT-IP Subjective Start: 10/22/21 13:58 Freq: NEEDED Status: Active Protocol: Document 10/24/21 09:57 KS (Rec: 10/24/21 12:32 KS [id number]) Subjective Physical Therapy Visit Type Type Treatment Note Visit Start Time 09:57 Visit Stop Time 10:13 Total Visit Minutes 16 Number of SOAP DRIER OPERATOR Visits 2 Physical Therapy Visit Comments Patient Comments Pt at first agreeable but then appears very confused. Therapy Pain Assessment Pain When Pain Assessed At Rest Pain Present Pain Present Pain Reported M4 PT-IP Mobility and Gait Start: 10/22/21 13:58 Freq: NEEDED Status: Active Protocol: Document 10/24/21 09:57 KS (Rec: 10/24/21 12:32 KS [id number]) PT-Bed Mobility Assessment Supine to Sit Supine to Sit Standby Assistance Sit to Supine Sit to Supine Standby Assistance Scooting Scooting to Edge of Bed Standby Assistance PT-Transfer Assessment Sit to and From Stand Sit to and from Stand Contact Guard Assistance,1 Person Assistance,Use of Upper Extremities Equipment Transfer Assistive Device Gait Belt,Front Wheeled Walker Orthotic/Prosthetic Devices or Brace: No Transfers Transfer Destination Bed Transfer Technique sit<>stand only Transfer Ability Level of Assist Contact Guard Assistance,1 Person Assistance,Use of Upper Extremities Comments Mobility Comments Pt in bed upon arrival and stating just not feelign very well but agreeable to try getting into chair. PT SBA for sup<>sit and scooting EOB, CGA for sit<>Stand w/ FWW. Upon standing pt reported dizziness and immediately sat back down and quickly after laid back down in bed SBA. BP: 111/75 in sup and pt no longer verbally responding to prompts or questions. RN called for assistance. Pt presenting w/ repetitive behavior, R tremor in hand, and slow speech but able to smile when asked. Pt left in bed w/ SECURITIES ADVISER in room attending. Gait Assessment Comments Gait Comments Pt did not ambulate today due to dizziness and change in demeanor/responsiveness. M5 PT-IP Objective Assessments Start: 10/22/21 13:58 Freq: NEEDED Status: Active Protocol: Document 10/22/21 09:45 AB (Rec: 10/22/21 14:10 AB [id number]) Orientation Orientation/Cognition Level of Alertness Alert Orientation Name,Place,Situation Language Function Ability No Deficits Noted Safety Awareness Decreased Safety Awareness Memory Description Short Term Impaired Strength Lower Extremity Strength Hip 3+/5 Knee 4-/5 Sensation Assessment Sensation Gross Sensation WNL Muscle Tone Muscle Tone WNL Yes M6 PT-IP Treatment Start: 10/22/21 13:58 Freq: NEEDED Status: Active Protocol: Document 10/24/21 09:57 KS (Rec: 10/24/21 12:32 KS [id number]) Physical Therapy Treatment Education Education Provided Safety M7 PT-IP Assessment and Plan Start: 10/22/21 13:58 Freq: NEEDED Status: Active Protocol: Document 10/24/21 09:57 KS (Rec: 10/24/21 12:32 KS [id number]) PT Summary Assessment and Plan Potential Rehabilitation Potential Fair Status of Condition at Evaluation Evolving Summary Impairments Pain,ROM,Strength,Balance, Coordination,Sensation,Tone, Cognition,Bed Mobility, Transfers,Gait,Activity Tolerance Progress Towards Goals Slow Progress due to Medical Issues,Slow Progress due to Activity Tolerance Assessment Summary Pt unable to get out of bed today and unsafe due to sudden change in demeanor and responsiveness. RN called to assess and blood sugar 316 w/ BP : 111/75. Pt w/ sudden difficulty following commands following briefly getting out of bed SBA to CGA. Will continue to assess when medically appropriate. Goals Bed Mobility Goal Independent Transfer Goal Independent,Front Wheeled Walker Gait Goal Independent,Front Wheel Walker Gait Distance 125 Days to Meet Goals 10 Frequency of Treatment Frequency Of Treatment Once a Day Treatment Plan Physical Therapy Treatment Plan Bed Mobility Training,Transfer Training,Gait Training, Therapeutic Exercise,Balance Retraining,Post Op Education, Discharge Planning,Hot or Cold Pack,Neuromuscular Re-ed, Coordination Retraining,Manual Therapy Other Recommendations and Next Treatment Increase ambulation distance, Focus ther ex. Recommendations To Nursing Amount of Assist Needed 1 Person Assist Discharge Recommendations PT Discharge Recommendations Home with Assistance,Home Health,SNF Rehab Transportation Needs at Discharge Private Vehicle
--- NOTE | 2021-10-24 10:33 | PC.NURSE ---
pt confused with repetitive behavior, stating I feel dizzy. SBP 110, CBG 316. PT on hold for the moment. Dr. Lemus notified. Bed alarm on
[2021-10-24] MEDS: LIDOCAINE VISCOUS 2% 30 ML, MAG HYDROX/ALUMINUM/SIMETH SUS 30 ML, NYSTATIN SUSP 3,000,0... MM (12:13)
[2021-10-24] MEDS: INSULIN LISPRO 100 UNIT/ML 3ML VIAL SUBCUT (12:16)
[2021-10-24] MEDS: DEXTROSE 50 % IN WATER 25 GM/50 ML SYRINGE IV (14:37)
[2021-10-24 15:10] LABS: Glucose 356 mg/dL (70-100)
[2021-10-24] MEDS: cefTRIAXone 1,000 MG in SODIUM CHLORIDE 0.9% 100 ML 200 ML IV (23:10)
[2021-10-25] MEDS: VANCOMYCIN 750 MG/150 ML PIGGYBACK 150 MG IV ×2 (00:02→08:37)
[2021-10-25] MEDS: KETOROLAC 30 MG/ML VIAL IV ×2 (00:09→13:07)
--- NOTE | 2021-10-25 00:42 | PC.NURSE ---
Patient is alert and oriented. Breath sounds CTA with RA sat of 98%. HRR but continues to be tachy in low 100's. BT present and reports she had BM yesterday. Denies dysuria tonight but states she is having frequency. Able to turn herself in bed and is getting up to BSC with SBA; uses walker for distance. Has left sided weakness related to CVA last year. Complained of stomach/back pain earlier and was medicated with Flexeril at 2057 and then with Morphine at 2154 and Toradol at 8; always states pain is around 6/10 but has FLACC of 0. Is on contact isolation as blood culture showing gram + cocci. Fall risk score is high and bed alarm is activated. Continues to refuse use of SCD's.
[2021-10-25] MEDS: MORPHINE 2 MG/ML INJ IV ×2 (03:55→08:09)
[2021-10-25 04:05] VITALS: PULSE 103; RESP 16; O2SAT 96
[2021-10-25 04:19] VITALS: BP 105/69; PULSE 103; RESP 16; TEMP 36.3; O2SAT 96
[2021-10-25 06:10] LABS: Add Manual Diff / Slide Review NO; Basophils Absolute Auto 0 /uL (0-100); Basophils Percent Auto 0.4 % (0-2); Eosinophils Absolute Auto 200 /uL (0-450); Eosinophils Percent Auto 2.1 % (2-4); Hematocrit 27.3 % (36-46); Hemoglobin 8.9 g/dL (12.0-16.0); Lymphocytes Absolute Auto 2200 /uL (1100-4500); Lymphocytes Percent Auto 26.6 % (25-40); Mean Corpuscular HGB Conc 32.7 % (30-36); Mean Corpuscular Hemoglobin 25.5 PG (26-34); Mean Corpuscular Volume 77.8 fL (80-100); Monocytes Absolute Auto 700 /uL (0-900); Monocytes Percent Auto 8.7 % (3-14); Neutrophils Absolute Auto 5100 /uL (1500-7000); Neutrophils Percent Auto 62.2 % (50-75); Platelet Count 858 X10^3/uL (150-400); Red Blood Cell Count 3.51 X10^6/uL (4.0-5.2); Red Cell Distribution Width 20.7 % (11.6-14.8); White Blood Cell Count 8.3 X10^3/uL (4.5-11.0)
[2021-10-25 06:18] LABS: BUN Creatinine Ratio 7.7 (6-22); Blood Urea Nitrogen 3 mg/dL (7-17); Calcium 7.7 mg/dL (8.4-10.2); Carbon Dioxide 32 mmol/L (22-32); Chloride 103 mmol/L (98-107); Estimated Glomerular Filt Rate > 60.0 mL/min (>60); Glucose 111 mg/dL (70-100); HEMOLYSIS < 15 (0-50); Potassium 4.4 mmol/L (3.4-5.1); Sodium 134 mmol/L (137-145)
[2021-10-25 06:21] LABS: Platelet Estimate Increased on smear
[2021-10-25 06:25] LABS: Anisocytosis 2+; Hypochromasia 1+
[2021-10-25] MEDS: ONDANSETRON 4 MG/2 ML INJ IV (06:26)
[2021-10-25 08:00] VITALS: BP 113/73; PULSE 107; RESP 18; TEMP 36.6; O2SAT 99
[2021-10-25] MEDS: ENOXAPARIN 40 MG/0.4 ML SYRINGE SUBCUT (08:08)
[2021-10-25] MEDS: BUSPIRONE 5 MG TABLET 20 MG PO (08:08)
[2021-10-25] MEDS: DULOXETINE 30 MG CAPSULE 60 MG PO (08:08)
[2021-10-25] MEDS: LIDOCAINE VISCOUS 2% 30 ML, MAG HYDROX/ALUMINUM/SIMETH SUS 30 ML, NYSTATIN SUSP 3,000,0... MM ×2 (08:09→12:05)
[2021-10-25 08:22] LABS: Vancomycin Trough 13.5 ug/mL (10-20)
[2021-10-25 09:21] VITALS: O2SAT 99
[2021-10-25 10:54] LABS: Vancomycin Peak 29.7 ug/mL (20-40)
[2021-10-25 11:40] VITALS: BP 142/64; PULSE 73; RESP 14; TEMP 36.4; O2SAT 100
[2021-10-25 12:00] VITALS: BP 109/79; PULSE 79; RESP 16; TEMP 36.3; O2SAT 100
--- NOTE | 2021-10-25 12:02 | PT.IPTN ---
Current Diagnoses Urinary tract infection, site not specified (10/21/21) Physical Therapy Treatment Note M2 PT-IP Current Condition Start: 10/22/21 13:58 Freq: NEEDED Status: Active Protocol: Document 10/22/21 09:45 AB (Rec: 10/22/21 14:10 AB [id number]) Physical Therapy Current Condition Current Condition Evaluation Date 10/22/21 Treatment Diagnosis UTI; constipation; difficulty in walking Onset Date 10/21/21 M3 PT-IP Subjective Start: 10/22/21 13:58 Freq: NEEDED Status: Active Protocol: Document 10/25/21 12:05 MA (Rec: 10/25/21 12:17 MA [email or web address]) Subjective Physical Therapy Visit Type Type Treatment Note Visit Start Time 11:50 Visit Stop Time 12:02 Total Visit Minutes 12 Number of JOINT SETTER Visits 3 Physical Therapy Visit Comments Patient Comments Pt alert and oriented today; agreeable to PT. Therapy Pain Assessment Pain When Pain Assessed At Rest Pain Present Pain Present Pain Reported Location Right Hip Description With Movement Pain Behaviors Wincing Pain Management Techniques Re-positioning M4 PT-IP Mobility and Gait Start: 10/22/21 13:58 Freq: NEEDED Status: Active Protocol: Document 10/25/21 12:05 MA (Rec: 10/25/21 12:17 MA [id number]) PT-Bed Mobility Assessment Supine to Sit Supine to Sit Standby Assistance Sit to Supine Sit to Supine Standby Assistance Scooting Scooting to Edge of Bed Standby Assistance PT-Transfer Assessment Sit to and From Stand Sit to and from Stand Contact Guard Assistance,1 Person Assistance,Use of Upper Extremities Equipment Transfer Assistive Device Gait Belt,Front Wheeled Walker Orthotic/Prosthetic Devices or Brace: No Transfers Transfer Destination Bed Transfer Technique ambulated wt FWW Transfer Ability Level of Assist Contact Guard Assistance,1 Person Assistance,Use of Upper Extremities Comments Mobility Comments Pt is in bed upon arrival and states she alredy took a shower this mmorning and feels much better than yesterday's session. She is SBA for all bed mobility and CGA for gait. Pt states she had prior stroke in Aug 09 and now has L sided weakness so she prefers to continue using FWW for gait and sit<> stands. Gait Assessment Gait Gait Assistance Required: Contact Guard Assist Distance (Feet) 50 Able to Maintain Weight Bearing Status Yes During Gait Assistive Devices Assistive Device Gait Belt,Front Wheeled Walker Orthotic/Prosthetic Devices or Brace: No Gait Deviations General Gait Pattern Antalgic,Decreased Stride Length,Decreased Feet Clearance,Flexed Trunk Factors Limiting Gait Function Factors Limiting Gait Function Decreased Activity Tolerance, Decreased Strength,Limited Range of Motion,Pain,Poor Balance,Poor Safety Awareness Comments Gait Comments Pt able to ambulate CGA with gait belt and FWW multiple laps in room this session. She c/o R hip pain when moving from prior R hip fx. Pt ambulates with decreased foot clearance on LLE>RLE. PT-Balance Assessment Sitting Balance and Reactions Static Sitting Balance Ability Good Dynamic Sitting Balance Ability Good Standing Balance and Reactions Static Standing Balance Ability Fair Dynamic Standing Balance Ability Fair Device Used FWW M5 PT-IP Objective Assessments Start: 10/22/21 13:58 Freq: NEEDED Status: Active Protocol: Document 10/22/21 09:45 AB (Rec: 10/22/21 14:10 AB [id number]) Orientation Orientation/Cognition Level of Alertness Alert Orientation Name,Place,Situation Language Function Ability No Deficits Noted Safety Awareness Decreased Safety Awareness Memory Description Short Term Impaired Strength Lower Extremity Strength Hip 3+/5 Knee 4-/5 Sensation Assessment Sensation Gross Sensation WNL Muscle Tone Muscle Tone WNL Yes M6 PT-IP Treatment Start: 10/22/21 13:58 Freq: NEEDED Status: Active Protocol: Document 10/25/21 12:05 MA (Rec: 10/25/21 12:17 MA [id number]) Physical Therapy Treatment Exercises Exercises Ankle Pumps,Seated Knee Flexion/Extension Education Education Provided Safety Other Treatments Other Treatment Performed Seated EOB performing LAQ, ankle pumps, and marching with cues for posture. M7 PT-IP Assessment and Plan Start: 10/22/21 13:58 Freq: NEEDED Status: Active Protocol: Document 10/25/21 12:05 MA (Rec: 10/25/21 12:17 MA [id number]) PT Summary Assessment and Plan Potential Rehabilitation Potential Fair Status of Condition at Evaluation Evolving Summary Impairments Pain,ROM,Strength,Balance, Coordination,Sensation,Tone, Cognition,Bed Mobility, Transfers,Gait,Activity Tolerance Progress Towards Goals Slow Progress due to Medical Issues,Slow Progress due to Activity Tolerance Assessment Summary Pt is able to perform all bed mobility SBA and walks 3 laps of room with gait belt and FWW , CGA. Nurse states pt was able to shower and has had stable vitals today but is still on contact precautions due to infection. Goals Bed Mobility Goal Independent Transfer Goal Independent,Front Wheeled Walker Gait Goal Independent,Front Wheel Walker Gait Distance 125 Days to Meet Goals 10 Frequency of Treatment Frequency Of Treatment Once a Day Treatment Plan Physical Therapy Treatment Plan Bed Mobility Training,Transfer Training,Gait Training, Therapeutic Exercise,Balance Retraining,Post Op Education, Discharge Planning,Hot or Cold Pack,Neuromuscular Re-ed, Coordination Retraining,Manual Therapy Other Recommendations and Next Treatment Increase ambulation distance Focus in hallway, ther ex. Recommendations To Nursing Amount of Assist Needed 1 Person Assist Discharge Recommendations PT Discharge Recommendations Home with Assistance,Home Health Transportation Needs at Discharge Private Vehicle
[2021-10-25] MEDS: SODIUM CHLORIDE 0.9% FLUSH 10 ML IV (12:04)
[2021-10-25] MEDS: INSULIN GLARGINE 100 UNIT/ML 3ML PEN SUBCUT (12:04)
--- NOTE | 2021-10-25 14:47 | PC.NURSE ---
Discharge Note Patient A&O, VSS, RA. No complaints of pain/discomfort. Discharge packet reviewed with patient, all questions/concerns addressed. PICC line removed without event. Patient able to dress self. All belongings packed and given to patient along with discharge packet. Patient taken down via wheelchair to POV.
--- NOTE | 2021-10-25 18:12 | PM.DS.1 ---
History of Present Illness History of Present Illness Chief complaint: swelling all over Narrative: Ms. Weaver is a 46W with Type 1 DM, recent admission for CVA and COVID pneumonia, lupus, fibromyalgia who comes in to the hospital with nausea and vomiting. She was recently in the ED a few days ago with vomiting and found to have a UTI. She was prescribed antibiotics, and only has taken one dose, and thinks she may have vomited. She has multiple complaints including chronic back pain, a sore in her mouth. She has noted abdominal pain and dysuria. No fevers/chills, no chest pain, shortness of breath or cough. She notes she blood sugars have been difficult to control. She was also noted to have a coban wrapped around her arm from her previous ED visit, and she noted swelling in her right arm. In the ED workup was done, vitals notable for heart rate in the 100s, blood pressure systolic in the 90s. IV access was very difficult, unable to place peripherhal, EJ, or IJ. PICC was requested by contracted service and said they would be unable to place PICC tonight. Labs notable for Hgb 8.7, plts 1104, co2 17, creatinine 0.39, glucose 221. VBG with ph 7.41, hco3 15. Lactate normal. US of right upper extremity negative for DVT. She was ordered for IV fluids and antibioitics and admitted for further treatment. Discharge Providers Provider Date of admission: 10/21/21 22:41 Discharge Date: 10/25/21 Primary care physician: Jhonny Evans PA-C Consults: 10/21/21 22:56 Consult to Dietitian, Adult Routine Comment: Reason For Exam: Diabetes Consult to Physical Therapy Evaluate & Treat Comment: Physician Instructions: Evaluate and Treat Discharge provider: Ras Mohamud MD Summary Hospital Course Discharge Diagnosis: 1. E coli sepsis 2. Type 1 diabetes with hyperglycemia and hypoglycemia 3. History of CVA 4. Chronic iron deficiency anemia 5. Chronic pancreatitis 6. Severe protein calorie malnutrition 7. Reactive thrombocytosis Patient admitted with sepsis parameters-tachycardic, BP 90/55, and evidence urinary infection. Urine culture grew pansensitive E coli. Urine culture also positive for GPC which has not yet grown out anything and likely a contaminant. Patient responded to IV antibiotic management with resolution of presenting symptoms and able to discharge home on oral antibiotic. She did have some hypoglycemia in hospital and insulin reduced and by time of discharge blood sugar was running up around 200. Status at Discharge Cognitive/behavioral status at discharge: oriented Functional status at discharge: independent ambulation Overall status at discharge: patient is progressing back to baseline Time Spent with Patient Time spent: Greater than 30 minutes Exam Vital Signs (past 8 hours): - 10/25/21 11:40 10/25/21 12:00 Temperature 97.5 F L 97.3 F L Pulse Rate 73 79 Respiratory Rate 14 16 Blood Pressure 142/64 H 109/79 Pulse Oximetry 100 100 Oxygen Delivery Method Room Air Oxygen Flow Rate 0 Narrative Exam Narrative: General: Alert and conversant and in no acute distress Lungs: Clear Abdomen: Nontender Extremities: No edema Neurological: Normal speech, baseline diminished affect, nonfocal Objective Labs Result Diagrams: 10/25/21 05:49 10/25/21 05:49 Labs: Laboratory Results - last 24 hr 10/25/21 10/25/21 10/25/21 05:49 05:49 07:30 WBC 8.3 RBC 3.51 L Hgb 8.9 L Hct 27.3 L MCV 77.8 L MCH 25.5 L MCHC 32.7 RDW 20.7 H Plt Count 858 H Neut % (Auto) 62.2 Lymph % (Auto) 26.6 [place] % (Auto) 8.7 Eos % (Auto) 2.1 Baso % (Auto) 0.4 Neut # (Auto) 5100 Lymph # (Auto) 2200 [place] # (Auto) 700 Eos # (Auto) 200 Baso # (Auto) 0 Platelet Estimate Increased on smear RBC Morphology See below Hypochromasia 1+ H Anisocytosis 2+ H Sodium 134 L Potassium 4.4 Chloride 103 Carbon Dioxide 32 BUN 3 L Creatinine 0.39 L Estimated GFR > 60.0 BUN/Creatinine Ratio 7.7 Glucose 111 H D Calcium 7.7 L Vancomycin Peak Vancomycin Trough 13.5 10/25/21 10:15 WBC RBC Hgb Hct MCV MCH MCHC RDW Plt Count Neut % (Auto) Lymph % (Auto) [place] % (Auto) Eos % (Auto) Baso % (Auto) Neut # (Auto) Lymph # (Auto) [place] # (Auto) Eos # (Auto) Baso # (Auto) Platelet Estimate RBC Morphology Hypochromasia Anisocytosis Sodium Potassium Chloride Carbon Dioxide BUN Creatinine Estimated GFR BUN/Creatinine Ratio Glucose Calcium Vancomycin Peak 29.7 Vancomycin Trough PFSH Medical History Alcohol intoxication Closed hip fracture COVID DKA (diabetic ketoacidoses) DKA (diabetic ketoacidosis) Fibromyalgia Gastroesophageal reflux disease Insulin dependent diabetes mellitus Lupus Osteoporosis Surgical History No pertinent past surgical history Family History Mother Diabetes mellitus Congestive heart failure Pancreatic cancer Father Diabetes mellitus Brother Diabetes mellitus Pancreatitis Sister Drug overdose Social History household members: family Smoking Status: Former smoker alcohol intake: current Discharge Plan Discharge Plan Patient Disposition: Home Provider Discharge Comment: Finish antibiotic for UTI. Discharge orders & Medications Prescriptions: New amoxicillin-pot clavulanate [Augmentin] 875-125 mg tablet 1 tab PO BID Qty: 6 0RF Continued insulin aspart U-100 [Novolog Flexpen U-100 Insulin] 100 unit/mL Insulin Pen 0 unit Sub-Q AC Qty: 3 0RF Rx Instructions: 1-3 UNITS TID buspirone 10 mg Tablet 2 tab PO TID 0RF cyclobenzaprine 10 mg Tablet 10 mg PO TID PRN (Reason: pain) 0RF gabapentin 600 mg Tablet 1.5 tab PO TID 0RF acetaminophen 325 mg Tablet 975 mg PO TID PRN (Reason: Pain, Moderate) Qty: 30 0RF insulin glargine 100 unit/mL (3 mL) Insulin Pen 20 unit SUBCUT QPM 0RF ondansetron 4 mg tablet,disintegrating 4 mg PO TID-QID PRN (Reason: nausea and vomiting) Qty: 10 0RF ibuprofen 600 mg tablet 600 mg PO Q6H PRN (Reason: pain) Qty: 30 0RF Follow up/Referrals: Jhonny Evans PA-C [Primary Care Provider] - Discharge Health Status Multidrug resistant organism: No MDRO Diet/Activity/Treatments Diet: Carb-consistent/Diabetic Visit Report/Discharge Packet Instructions: DI for Urinary Tract Infection (UTI), How to Use Antibiotics Wisely Discharge Data Primary Care Provider: Jhonny Evans Quality VTE Deep Vein Thrombosis/Pulmonary Embolism Present on Admission: No
== END 2021-10-25 14:30 | disposition home or self-care (01) | DRG 871 ==
LOC: ED 22:16 → AC 10-22 07:31
PROVIDERS: Family Medicine; Nurse Practitioner Critical Care Medicine; Student in an Organized Health Care Education/Training Program; Admitting Provider Internal Medicine; Emergency Provider Emergency Medicine; PCP Physician Assistant; Referring Provider Emergency Medicine; Visit Provider Internal Medicine
DX: A41.51 Sepsis due to Escherichia coli [E. coli] (principal); E43 Unspecified severe protein-calorie malnutrition; N39.0 Urinary tract infection, site not specified; K86.1 Other chronic pancreatitis; Z68.1 Body mass index [BMI] 19.9 or less, adult; R65.20 Severe sepsis without septic shock; D50.9 Iron deficiency anemia, unspecified; E10.65 Type 1 diabetes mellitus with hyperglycemia; M79.621 Pain in right upper arm; D75.838 Other thrombocytosis; M32.9 Systemic lupus erythematosus, unspecified; M79.7 Fibromyalgia; F41.9 Anxiety disorder, unspecified; F32.A Depression, unspecified; G89.29 Other chronic pain; M54.9 Dorsalgia, unspecified; Z79.4 Long term (current) use of insulin; Z20.822 Contact with and (suspected) exposure to COVID-19; Z86.16 Personal history of COVID-19; Z87.891 Personal history of nicotine dependence
CPT/HCPCS: 36415; 36569; 74022; 80048; 80053; 80202; 81001; 82009; 82805; 82947; 82962; 83036; 83540; 83550; 83605; 83690; 83735; 85025; 87040; 87077; 87086; 87150; 87185; 87186; 87205; 87635; 93971; 94760; 96360; 96361; 96365; 96366; 96367; 96372; 96374; 96375; 96376; 97116; 97162; 97530; 99284; C9803; G0378; J0696; J1642; J1650; J1815; J1885; J2270; J2405; J2765

== ENCOUNTER 2021-11-28 15:13 | Observation (INO) | payer MEDICAID, OTHER, SELFPAY ==
[2021-10-21 22:58] VITALS: BMI 18.3
[2021-11-28] VITALS (19 sets, daily range): BP systolic 103–127; BP diastolic 63–84; PULSE 92–108; RESP 16–28; TEMP 36.3–36.6; O2SAT 98–100; BMI 18.9; BMI 17.4
--- NOTE | 2021-11-28 15:24 | PC.NURSE ---
Bedside glucose monitor reads >500, provider notified.
[2021-11-28 15:44] LABS: Add Manual Diff / Slide Review NO; Basophils Absolute Auto 0 /uL (0-100); Basophils Percent Auto 0.5 % (0-2); Eosinophils Absolute Auto 0 /uL (0-450); Eosinophils Percent Auto 0.6 % (2-4); Hematocrit 31.3 % (36-46); Hemoglobin 9.7 g/dL (12.0-16.0); Lymphocytes Absolute Auto 1300 /uL (1100-4500); Lymphocytes Percent Auto 19.1 % (25-40); Mean Corpuscular HGB Conc 30.9 % (30-36); Mean Corpuscular Hemoglobin 27.2 PG (26-34); Monocytes Absolute Auto 500 /uL (0-900); Monocytes Percent Auto 7.9 % (3-14); Neutrophils Absolute Auto 4900 /uL (1500-7000); Neutrophils Percent Auto 71.9 % (50-75); Platelet Count 531 X10^3/uL (150-400); Red Blood Cell Count 3.56 X10^6/uL (4.0-5.2); Red Cell Distribution Width 29.4 % (11.6-14.8); White Blood Cell Count 6.8 X10^3/uL (4.5-11.0)
[2021-11-28 15:51] LABS: HCO3 VBG 17 mmol/L (23-28); PCO2 VBG 35.8 mmHg (45-50); PO2 VBG 42 mmHg (35-45)
[2021-11-28 15:52] LABS: Oxygen Saturation VBG 72 % (70-75); Total CO2 VBG 18 mmol/L (24-29)
[2021-11-28 15:56] LABS: HEMOLYSIS 27 (0-50)
[2021-11-28 16:01] LABS: Alanine Aminotransferase 22 IU/L (<35); Albumin 3.5 g/dL (3.5-5.0); Albumin Globulin Ratio 1.1 (1.0-2.8); Alkaline Phosphatase 129 U/L (38-126); Aspartate Aminotransferase 36 IU/L (14-36); BUN Creatinine Ratio 21.1 (6-22); Bilirubin Total 0.4 mg/dL (0.2-1.3); Blood Urea Nitrogen 12 mg/dL (7-17); Calcium 8.2 mg/dL (8.4-10.2); Carbon Dioxide 14 mmol/L (22-32); Chloride 103 mmol/L (98-107); Estimated Glomerular Filt Rate > 60.0 mL/min (>60); Globulin 3.1 g/dL (1.7-4.1); Potassium 4.6 mmol/L (3.4-5.1); Sodium 126 mmol/L (137-145); Total Protein 6.6 g/dL (6.3-8.2)
[2021-11-28 16:02] LABS: Bilirubin Urine UA NEGATIVE (NEGATIVE); Glucose Urine UA 2+ g/dL (Negative); Ketones Urine UA NEGATIVE (NEGATIVE); Leukocyte Esterase Urine UA NEGATIVE (NEGATIVE); Nitrite Urine UA NEGATIVE (Negative); Occult Blood Urine UA 2+ (Negative); Protein Urine UA NEGATIVE (Negative); Specific Gravity Urine UA <=1.005 (1.000-1.035); Urobilinogen Urine UA 0.2 E.U./dL (0.2)
[2021-11-28 16:02] LABS: Lactate (Lactic Acid) 1.3 mmol/L (0.7-2.1)
[2021-11-28] MEDS: SODIUM CHLORIDE 0.9% 1,000 ML 1000 ML IV (16:07)
[2021-11-28 16:15] LABS: Glucose 679 mg/dL (70-100)
[2021-11-28 16:16] LABS: Appearance Urine UA Slightly Cloudy; Color Urine UA STRAW; pH Urine UA 6.5 (4.5-8.0)
[2021-11-28 16:17] LABS: Bacteria Urine Many (>30); Culture Indicated Urine Specimen Cultured; RBC Urine 10-30/HPF (0-5/HPF); Squamous Epithelial Cell Urine 1-5 /HPF (0-5/HPF); WBC Urine 30-100/HPF (0-5/HPF)
[2021-11-28 16:18] LABS: Procalcitonin 16.2 ng/mL (<0.5)
--- NOTE | 2021-11-28 16:18 | ED.GENADULT ---
HPI - General Adult General Chief complaint: Diabetic Problem Stated complaint: High glucose Time Seen by Provider: 11/28/21 15:46 Source: EMS Mode of arrival: EMS Limitations: no limitations History of Present Illness HPI narrative: The patient has IDDM. She cut her doses down because she cannot reach her doctor for refill. She started cutting her doses 5 days ago. At home her glucose levels were running up into the 300s. She presents now with abdominal cramping. She has dysuria. She has been back pain for week. She has no history of pyelonephritis. She has no URI symptoms, no cough, no chest pain or dyspnea. With abdominal pain she has no nausea vomiting. She is having no fever or chills. She has no extremity pain. She has no visual changes. She has no peripheral numbness or weakness. She does have polyuria, and polydipsia. She has history of alcohol abuse, and a history of DKA Related Data Home Medications Medication Instructions Recorded Confirmed buspirone 10 mg tablet 2 tab PO TID 12/08/18 10/21/21 cyclobenzaprine 10 mg tablet 10 mg PO TID PRN 12/08/18 10/21/21 gabapentin 600 mg tablet 1.5 tab PO TID 12/08/18 10/21/21 insulin glargine 100 unit/mL (3 20 unit SUBCUT QPM 07/26/21 10/25/21 mL) subcutaneous pen Previous Rx's Medication Instructions Recorded insulin aspart U-100 100 unit/mL 0 unit (0 mL) SUB-Q AC #3 unit 02/12/18 (3 mL) subcutaneous pen (Novolog Flexpen U-100 Insulin aspart) acetaminophen 325 mg tablet 975 mg PO TID PRN #30 tab 12/12/18 ibuprofen 600 mg tablet 600 mg PO Q6H PRN #30 tab 03/21/20 ondansetron 4 mg disintegrating 4 mg PO TID-QID PRN #10 tab 10/20/21 tablet amoxicillin 875 mg-potassium 1 tab PO BID #6 tab 10/25/21 clavulanate 125 mg tablet (Augmentin) Allergies Allergy/AdvReac Type Severity Reaction Status Date / Time amitriptyline Allergy Intermediate Verified 10/08/21 19:53 sulfasalazine [SULFASALAZINE] Allergy Mild PANCREATITI Verified 01/20/22 19:53 S trazodone AdvReac Intermediate HEART Verified 10/08/21 19:53 PALPITATIONS Review of Systems Constitutional Constitutional: Denies body ache(s), Denies chills, Denies fatigue, Denies fever(s), Denies headache(s) and Denies weakness Eyes Eyes: Denies change in vision ENT Ears, Nose, Mouth, and Throat: Denies dizziness, Denies dry mouth, Denies headache(s) and Denies neck pain Cardiovascular Cardiovascular: Denies chest pain, Denies syncope, Denies rapid heart rate and Denies dyspnea Respiratory Respiratory: Denies cough and Denies dyspnea Gastrointestinal Gastrointestinal: Denies bloating and Denies cramping Genitourinary Genitourinary: Reports as per HPI and Reports dysuria Musculoskeletal Musculoskeletal: Denies back pain, Denies arthralgias and Denies neck pain Integumentary/Breasts Skin/Breast: Denies rash Neurologic Neurologic: Denies confusion, Denies dizziness, Denies syncope, Denies headache(s) and Denies weakness Psychiatric Psychiatric: Denies as per HPI, Denies confusion and Denies depression Endocrine Endocrine: Denies fatigue Hematologic/Lymphatic Hematologic/Lymphatic: Denies easy bleeding and Denies easy bruising Patient History Medical History Alcohol intoxication Closed hip fracture COVID DKA (diabetic ketoacidoses) DKA (diabetic ketoacidosis) Fibromyalgia Gastroesophageal reflux disease Insulin dependent diabetes mellitus Lupus Osteoporosis Surgical History No pertinent past surgical history Family History Mother Diabetes mellitus Congestive heart failure Pancreatic cancer Father Diabetes mellitus Brother Diabetes mellitus Pancreatitis Sister Drug overdose Social History household members: family Smoking Status: Former smoker alcohol intake: current Smoking Status: Former smoker alcohol intake frequency: holidays/special occasions only Substance Use Type: does not use Exam Initial Vital Signs Initial Vital Signs: Vital Signs Temperature 97.3 F L 11/28/21 15:14 Pulse Rate 95 H 11/28/21 15:14 Respiratory Rate 20 11/28/21 15:14 Blood Pressure 127/77 11/28/21 15:14 Pulse Oximetry 100 11/28/21 15:14 Const General: cooperative, comfortable, No in distress and frail appearing [facility] Head: normocephalic and atraumatic Mouth: oropharynx normal Eyes General: appearance normal, both eyes and all related structures Conjunctivae: conjunctivae normal Sclera: sclerae normal Cornea: corneas normal Pupils: PERRL EOM: EOM intact bilaterally Neck Neck: normal visual inspection Chest Chest: normal inspection of the chest Resp Effort & Inspection: normal respiratory effort Cardio Rate: regular rate Rhythm: regular rhythm Heart Sounds: S1 normal and S2 normal GI Inspection: normal to inspection Other: Mild periumbilical tenderness. No distension. No guarding rebound. Normal bowel sounds. Back/Spine/Pelvis Back: CVA tenderness left Skin General: no rashes or lesions noted Neuro General: patient alert, patient awake and patient oriented x3 Motor: muscle tone normal throughout Sensory Exam: no sensory deficits noted Extrem General: normal to inspection, no pedal edema and no calf tenderness Psych Mental Status: mental status grossly normal Course Course Course Narrative: The patient was initially IV hydrated, insulin 10 units was given. The initial glucose of 679 improved to 408. UTI was discovered, Rocephin IV was given. VBG was 7.3. The case was initially discussed with Dr. Lemus, hospitalist. She is not terribly acidotic, anion gap is normal. Dr. Wheatley encouraged continue hydration and repeat the insulin dose. Her glucose decreased to 127 her pCO2 remains 14. Potassium is 3.2, a dose of potassium was given. The case was then discussed with ZOFIA Chong, the night hospitalist. I have ongoing concern about the acidosis, an ABG has been ordered. She will be admitted for ongoing care. Orders Ordered: ED Orders 11/28/21 15:27 Blood Culture Stat Complete Blood Count AUTO DIFF Stat Comprehensive Metabolic Panel Stat Ketones (Beta-Hydroxybutyrate) Stat Lactate (Lactic Acid) Stat Procalcitonin Stat EKG-12 Lead Stat 11/28/21 15:32 Venous Blood Gas Stat 11/28/21 15:56 Test Urine Stat Urinalysis and Microscopic Stat Urine Culture Stat 11/28/21 17:50 COVID19 -Nasal swab/Pre-Proc Stat 11/28/21 18:30 BMP [Basic Metabolic Panel] Stat MAG [Magnesium] Stat PHOS [Phosphorous] Stat 11/28/21 19:13 ETOH [Ethanol (ETOH)] Stat 11/28/21 19:17 ABG [Arterial Blood Gas] Stat Discontinued Medications Sodium Chloride (Normal Saline 0.9%) 1,000 mls @ 1,000 mls/hr IV BOLUS ONE Stop: 11/28/21 16:26 Last Infusion: 11/28/21 17:03 Dose: 0 mls/hr Documented by: Admin: 11/28/21 16:07 Dose: 1,000 mls/hr Documented by: SABIHA Ceftriaxone Sodium 1,000 mg/ (Sodium Chloride) 100 mls @ 200 mls/hr IV NOW ONE Stop: 11/28/21 17:29 Last Infusion: 11/28/21 18:36 Dose: 0 mls/hr Documented by: Admin: 11/28/21 17:36 Dose: 200 mls/hr Documented by: CHERIE POTASSIUM CHLORIDE IN WATER (Potassium Cl 10 Meq/100 Ml Yelena) 10 meq in 100 mls @ 100 mls/hr IV Q1H JOSE ANTONIO Stop: 11/28/21 21:29 Insulin Human Regular (Insulin Regular 100 Unit/Ml 3 Ml Vial) 10 unit IV NOW ONE Stop: 11/28/21 16:24 Last Admin: 11/28/21 16:31 Dose: 10 unit Documented by: CHERIE Cosigned by: ETHAN Insulin Human Regular (Insulin Regular 100 Unit/Ml 3 Ml Vial) 10 unit IV NOW ONE Stop: 11/28/21 17:29 Last Admin: 11/28/21 17:35 Dose: 10 unit Documented by: CHERIE Cosigned by: BAKARI Potassium Chloride (Potassium Chloride 20 Meq/15 Ml Udc) 20 meq PO NOW ONE Stop: 11/28/21 19:26 Last Admin: 11/28/21 19:31 Dose: 20 meq Documented by: Vital Signs Vital signs: Vital Signs - 8 hr 11/28/21 15:14 11/28/21 15:32 Temperature 97.3 F L Pulse Rate 95 H 95 H Respiratory Rate 20 Blood Pressure 127/77 Pulse Oximetry 100 100 Medical Decision Making Lab Data Result diagrams: 11/28/21 15:27 11/28/21 18:30 Labs: Lab Results 03/12/22 03/12/22 03/12/22 Range/Units 15:27 15:27 15:27 WBC 6.8 (4.5-11.0) X10^3/uL RBC 3.56 L (4.0-5.2) X10^6/uL Hgb 9.7 L (12.0-16.0) g/dL Hct 31.3 L (36-46) % MCV 88.0 (80-100) fL MCH 27.2 (26-34) PG MCHC 30.9 (30-36) % RDW 29.4 H (11.6-14.8) % Plt Count 531 H (150-400) X10^3/uL Neut % (Auto) 71.9 (50-75) % Lymph % (Auto) 19.1 L (25-40) % [place] % (Auto) 7.9 (3-14) % Eos % (Auto) 0.6 L (2-4) % Baso % (Auto) 0.5 (0-2) % Neut # (Auto) 4900 (9464-7971) /uL Lymph # (Auto) 1300 (7374-8411) /uL [place] # (Auto) 500 (0-900) /uL Eos # (Auto) 0 (0-450) /uL Baso # (Auto) 0 (0-100) /uL RBC Morphology Not Reportable Anisocytosis 3+ H Macrocytosis 2+ H ABG pH (7.35-7.45) ABG pCO2 (35-45) mmHg ABG pO2 (80-100) mmHg ABG HCO3 (22-26) mmol/L ABG Total CO2 (21-31) mmol/L ABG O2 Saturation (95-100) % ABG Base Excess (-2-2) mmol/L VBG pH (7.33-7.43) VBG pCO2 (45-50) mmHg VBG pO2 (35-45) mmHg VBG HCO3 (23-28) mmol/L VBG Total CO2 (24-29) mmol/L VBG O2 Saturation (70-75) % VBG Base Excess (0-4) mmol/L FiO2 Sodium 126 L (137-145) mmol/L Potassium 4.6 (3.4-5.1) mmol/L Chloride 103 (98-107) mmol/L Carbon Dioxide 14 L (22-32) mmol/L BUN 12 (7-17) mg/dL Creatinine 0.57 (0.52-1.04) mg/dL Estimated GFR > 60.0 (>60) mL/min BUN/Creatinine Ratio 21.1 (6-22) Glucose 679 H* (70-100) mg/dL Lactate 1.3 (0.7-2.1) mmol/L Calcium 8.2 L (8.4-10.2) mg/dL Phosphorus (2.5-4.5) mg/dL Magnesium (1.6-2.3) mg/dL Total Bilirubin 0.4 (0.2-1.3) mg/dL AST 36 (14-36) IU/L ALT 22 (<35) IU/L Alkaline Phosphatase 129 H (38-126) U/L Total Protein 6.6 (6.3-8.2) g/dL Albumin 3.5 (3.5-5.0) g/dL Globulin 3.1 (1.7-4.1) g/dL Albumin/Globulin Ratio 1.1 (1.0-2.8) Procalcitonin 16.2 H (<0.5) ng/mL Urine Color Urine Appearance Urine pH (4.5-8.0) Ur Specific [place] (1.000-1.035) Urine Protein (Negative) Urine Glucose (UA) (Negative) g/dL Urine Ketones (NEGATIVE) Urine Occult Blood (Negative) Urine Nitrate (Negative) Urine Bilirubin (NEGATIVE) Urine Urobilinogen (0.2) E.U./dL Ur Leukocyte Esterase (NEGATIVE) Urine RBC (0-5/HPF) Urine WBC (0-5/HPF) Ur Squamous Epith Cells (0-5/HPF) Urine Bacteria (None) Ur Culture Indicated? Urine Test (Negative) Ketones 0.09 (<0.27) mmol/L SARS-CoV-2 (PCR) (Negative) 11/28/21 11/28/21 11/28/21 Range/Units 15:32 15:56 15:56 WBC (4.5-11.0) X10^3/uL RBC (4.0-5.2) X10^6/uL Hgb (12.0-16.0) g/dL Hct (36-46) % MCV (80-100) fL MCH (26-34) PG MCHC (30-36) % RDW (11.6-14.8) % Plt Count (150-400) X10^3/uL Neut % (Auto) (50-75) % Lymph % (Auto) (25-40) % [place] % (Auto) (3-14) % Eos % (Auto) (2-4) % Baso % (Auto) (0-2) % Neut # (Auto) (9152-6198) /uL Lymph # (Auto) (8592-0412) /uL [place] # (Auto) (0-900) /uL Eos # (Auto) (0-450) /uL Baso # (Auto) (0-100) /uL RBC Morphology Anisocytosis Macrocytosis ABG pH (7.35-7.45) ABG pCO2 (35-45) mmHg ABG pO2 (80-100) mmHg ABG HCO3 (22-26) mmol/L ABG Total CO2 (21-31) mmol/L ABG O2 Saturation (95-100) % ABG Base Excess (-2-2) mmol/L VBG pH 7.30 L (7.33-7.43) VBG pCO2 35.8 L (45-50) mmHg VBG pO2 42 (35-45) mmHg VBG HCO3 17 L (23-28) mmol/L VBG Total CO2 18 L (24-29) mmol/L VBG O2 Saturation 72 (70-75) % VBG Base Excess -9.0 L (0-4) mmol/L FiO2 Sodium (137-145) mmol/L Potassium (3.4-5.1) mmol/L Chloride (98-107) mmol/L Carbon Dioxide (22-32) mmol/L BUN (7-17) mg/dL Creatinine (0.52-1.04) mg/dL Estimated GFR (>60) mL/min BUN/Creatinine Ratio (6-22) Glucose (70-100) mg/dL Lactate (0.7-2.1) mmol/L Calcium (8.4-10.2) mg/dL Phosphorus (2.5-4.5) mg/dL Magnesium (1.6-2.3) mg/dL Total Bilirubin (0.2-1.3) mg/dL AST (14-36) IU/L ALT (<35) IU/L Alkaline Phosphatase (38-126) U/L Total Protein (6.3-8.2) g/dL Albumin (3.5-5.0) g/dL Globulin (1.7-4.1) g/dL Albumin/Globulin Ratio (1.0-2.8) Procalcitonin (<0.5) ng/mL Urine Color Straw Urine Appearance Slightly cloudy Urine pH 6.5 (4.5-8.0) Ur Specific [place] <=1.005 (1.000-1.035) Urine Protein Negative (Negative) Urine Glucose (UA) 2+ H (Negative) g/dL Urine Ketones Negative (NEGATIVE) Urine Occult Blood 2+ H (Negative) Urine Nitrate Negative (Negative) Urine Bilirubin Negative (NEGATIVE) Urine Urobilinogen 0.2 (0.2) E.U./dL Ur Leukocyte Esterase Negative (NEGATIVE) Urine RBC 10-30/hpf H (0-5/HPF) Urine WBC 30-100/hpf H (0-5/HPF) Ur Squamous Epith Cells 1-5 /hpf (0-5/HPF) Urine Bacteria Many (>30) H (None) Ur Culture Indicated? Specimen cultured Urine Test Negative (Negative) Ketones (<0.27) mmol/L SARS-CoV-2 (PCR) (Negative) 11/28/21 11/28/21 11/28/21 Range/Units 17:50 18:30 19:28 WBC (4.5-11.0) X10^3/uL RBC (4.0-5.2) X10^6/uL Hgb (12.0-16.0) g/dL Hct (36-46) % MCV (80-100) fL MCH (26-34) PG MCHC (30-36) % RDW (11.6-14.8) % Plt Count (150-400) X10^3/uL Neut % (Auto) (50-75) % Lymph % (Auto) (25-40) % [place] % (Auto) (3-14) % Eos % (Auto) (2-4) % Baso % (Auto) (0-2) % Neut # (Auto) (5524-5863) /uL Lymph # (Auto) (6514-3688) /uL [place] # (Auto) (0-900) /uL Eos # (Auto) (0-450) /uL Baso # (Auto) (0-100) /uL RBC Morphology Anisocytosis Macrocytosis ABG pH 7.34 L (7.35-7.45) ABG pCO2 31.8 L (35-45) mmHg ABG pO2 106 H (80-100) mmHg ABG HCO3 17 L (22-26) mmol/L ABG Total CO2 18 L (21-31) mmol/L ABG O2 Saturation 98 (95-100) % ABG Base Excess -9.0 L (-2-2) mmol/L VBG pH (7.33-7.43) VBG pCO2 (45-50) mmHg VBG pO2 (35-45) mmHg VBG HCO3 (23-28) mmol/L VBG Total CO2 (24-29) mmol/L VBG O2 Saturation (70-75) % VBG Base Excess (0-4) mmol/L FiO2 21 Sodium 136 L D (137-145) mmol/L Potassium 3.2 L D (3.4-5.1) mmol/L Chloride 114 H (98-107) mmol/L Carbon Dioxide 14 L (22-32) mmol/L BUN 11 (7-17) mg/dL Creatinine 0.49 L (0.52-1.04) mg/dL Estimated GFR > 60.0 (>60) mL/min BUN/Creatinine Ratio 22.4 H (6-22) Glucose 127 H D (70-100) mg/dL Lactate (0.7-2.1) mmol/L Calcium 8.4 (8.4-10.2) mg/dL Phosphorus 3.2 (2.5-4.5) mg/dL Magnesium 1.8 (1.6-2.3) mg/dL Total Bilirubin (0.2-1.3) mg/dL AST (14-36) IU/L ALT (<35) IU/L Alkaline Phosphatase (38-126) U/L Total Protein (6.3-8.2) g/dL Albumin (3.5-5.0) g/dL Globulin (1.7-4.1) g/dL Albumin/Globulin Ratio (1.0-2.8) Procalcitonin (<0.5) ng/mL Urine Color Urine Appearance Urine pH (4.5-8.0) Ur Specific [place] (1.000-1.035) Urine Protein (Negative) Urine Glucose (UA) (Negative) g/dL Urine Ketones (NEGATIVE) Urine Occult Blood (Negative) Urine Nitrate (Negative) Urine Bilirubin (NEGATIVE) Urine Urobilinogen (0.2) E.U./dL Ur Leukocyte Esterase (NEGATIVE) Urine RBC (0-5/HPF) Urine WBC (0-5/HPF) Ur Squamous Epith Cells (0-5/HPF) Urine Bacteria (None) Ur Culture Indicated? Urine Test (Negative) Ketones (<0.27) mmol/L SARS-CoV-2 (PCR) Negative (Negative) Point of Care Testing Glucose POC 92 Point of care testing: Point of Care Testing Glucose POC 92 Critical Care Time Critical Care Time Critical Care Time: Yes Total Critical Care Time: 45 Attestation: Critical care included the initial patient assessment, review of lab data and medications. Necessary clinical decisions, and discussing the patient with the patient. The case was presented to the hospitalist. Discharge Plan Departure Patient Disposition: Admitted as Observation Clinical Impression: Diabetes mellitus with hyperglycemia, Acidosis, Urinary tract infection, Acute dehydration Admit Date/Time: 11/28/21 19:36 Admit Provider: Kaylyn Chong
[2021-11-28 16:19] LABS: Pregnancy Test Urine Negative (Negative)
[2021-11-28] MEDS: INSULIN REGULAR 100 UNIT/ML 3 ML VIAL 10 UNIT IV ×2 (16:31→17:35)
[2021-11-28 17:14] LABS: Ketones (Beta-Hydroxybutyrate) 0.09 mmol/L (<0.27)
[2021-11-28 17:25] LABS: Anisocytosis 3+; Macrocytosis 2+
[2021-11-28] MEDS: cefTRIAXone 1,000 MG in SODIUM CHLORIDE 0.9% 100 ML 200 ML IV (17:36)
[2021-11-28 18:55] LABS: COVID19 -Nasal RAPID Negative (Negative)
[2021-11-28 18:58] LABS: BUN Creatinine Ratio 22.4 (6-22); Blood Urea Nitrogen 11 mg/dL (7-17); Calcium 8.4 mg/dL (8.4-10.2); Carbon Dioxide 14 mmol/L (22-32); Chloride 114 mmol/L (98-107); Estimated Glomerular Filt Rate > 60.0 mL/min (>60); Glucose 127 mg/dL (70-100); HEMOLYSIS < 15 (0-50); Magnesium 1.8 mg/dL (1.6-2.3); Phosphorous 3.2 mg/dL (2.5-4.5); Potassium 3.2 mmol/L (3.4-5.1); Sodium 136 mmol/L (137-145)
[2021-11-28] MEDS: POTASSIUM CHLORIDE 20 MEQ/15 ML UDC PO (19:31)
[2021-11-28 19:38] LABS: Fractionated Inspired Oxygen 21; HCO3 ABG 17 mmol/L (22-26); Oxygen Saturation ABG 98 % (95-100); PCO2 ABG 31.8 mmHg (35-45); PO2 ABG 106 mmHg (80-100); TCO2 ABG 18 mmol/L (21-31); pH ABG 7.34 (7.35-7.45)
[2021-11-28 19:39] LABS: Ethanol (ETOH) < 10 mg/dL
[2021-11-28] MEDS: ACETAMINOPHEN 325 MG TABLET 650 MG PO (20:40)
--- NOTE | 2021-11-28 21:04 | PM.HP.1 ---
History of Present Illness History of Present Illness Date Patient Seen: 11/28/21 Time Patient Seen: 20:04 Chief complaint: Hyperglycemia, UTI, hypokalemia Narrative: Valerie Garnica is a 46 y.o. Type 1 diabetic who presented to the ED with complaints of blurred vision, nausea w/o vomiting, polydypsia, polyurea, posterior flank pain, abdominal pain and elevated blood sugars. She was running out of her insulin and was hesitant to contact her PCP's office because he does not like to be bothered. She normally uses lantus 20 units daily but had reduced her dose to 8 units daily and stopped using her correctional scale insulin. Patient was recently admitted for diabetic ketoacidosis and a UTI in July, found to have COVID-19 pneumonia, subsequently had a stroke and was transferred to the [facility] stroke [place] where she subsequently went to an acute rehab facility and was discharged in September of this year. Patient was administered 10 units of regular insulin in the ED. U/A was positive for a UTI. She is afebrile, blood pressure 107/68, heart rate 99, respiratory rate 16, oxygen saturation of 99% on room air she weighs 44.5 kg with a BMI of 17.4. WBC is 6.8 RBC 3.56 hemoglobin 9.7 hematocrit 31.3 platelet count 531, admission ABG included a pH of 7.34 ABG pCO2 31.8 ABG PO2 106 ABG bicarb 17 ABG total CO2 18 with an oxygen saturation 98% and base excess of - 9. Sodium 136, potassium 3.2, chloride 114, bicarb 14, BUN 11, creatinine 0.49, with an EGFR of greater than 60, glucose 127, A1c is 11.3, lactate is normal, phosphorus 3.2, magnesium 1.8, liver enzymes within normal limits, procalcitonin is 16.2, UA is positive for urinary tract infection and COVID-19 PCR is negative. Patient History Medical History Alcohol intoxication Closed hip fracture COVID DKA (diabetic ketoacidoses) DKA (diabetic ketoacidosis) Fibromyalgia Gastroesophageal reflux disease Insulin dependent diabetes mellitus Lupus Osteoporosis Surgical History No pertinent past surgical history Family & Social History Family History Mother Diabetes mellitus Congestive heart failure Pancreatic cancer Father Diabetes mellitus Brother Diabetes mellitus Pancreatitis Sister Drug overdose Social History: household members family Safety & Behavioral: Feels Safe in Current Yes Environment Been Physically Hurt or No Threatened By a Person Tobacco & Substance use: Tobacco type cigarettes Smoking Status Former smoker alcohol intake current alcohol intake frequency holiday/special occasion Substance Use Type does not use Meds Home Medications and Allergies Home Medications Medication Instructions Recorded Confirmed Type insulin aspart U-100 100 unit/mL 0 unit (0 mL) SUB-Q AC #3 unit 02/12/18 11/28/21 Rx (3 mL) subcutaneous pen (Novolog Flexpen U-100 Insulin aspart) buspirone 10 mg tablet 2 tab PO TID 12/08/18 11/28/21 History cyclobenzaprine 10 mg tablet 10 mg PO TID PRN 12/08/18 11/28/21 History gabapentin 600 mg tablet 1.5 tab PO TID 12/08/18 11/28/21 History acetaminophen 325 mg tablet 975 mg PO TID PRN #30 tab 12/12/18 11/28/21 Rx ibuprofen 600 mg tablet 600 mg PO Q6H PRN #30 tab 03/21/20 11/28/21 Rx insulin glargine 100 unit/mL (3 20 unit SUBCUT QPM 07/26/21 11/28/21 History mL) subcutaneous pen ondansetron 4 mg disintegrating 4 mg PO TID-QID PRN #10 tab 10/20/21 11/28/21 Rx tablet Allergies Allergy/AdvReac Type Severity Reaction Status Date / Time amitriptyline Allergy Intermediate Verified 10/08/21 19:53 sulfasalazine [SULFASALAZINE] Allergy Mild PANCREATITI Verified 10/08/21 19:53 S trazodone AdvReac Intermediate HEART Verified 10/08/21 19:53 PALPITATIONS Review of Systems Review of Systems ROS: Yes All systems reviewed with the patient and are negative except as otherwise documented Exam Vital Signs (past 8 hours): - 11/28/21 15:14 11/28/21 15:32 11/28/21 16:00 Temperature 97.3 F L Pulse Rate 95 H 95 H 93 H Respiratory Rate 20 23 Blood Pressure 127/77 115/73 Pulse Oximetry 100 100 100 11/28/21 16:15 11/28/21 16:30 11/28/21 16:45 Temperature Pulse Rate 92 H 92 H 97 H Respiratory Rate 22 26 H 24 Blood Pressure 114/76 113/77 118/80 Pulse Oximetry 100 100 100 11/28/21 17:00 11/28/21 17:15 11/28/21 17:30 Temperature Pulse Rate 101 H 100 H 102 H Respiratory Rate 24 23 25 H Blood Pressure 126/84 119/82 120/84 Pulse Oximetry 100 100 100 11/28/21 17:45 11/28/21 18:00 11/28/21 18:15 Temperature Pulse Rate 103 H 104 H 100 H Respiratory Rate 21 27 H 25 H Blood Pressure 122/84 124/84 112/76 Pulse Oximetry 100 100 100 11/28/21 18:30 11/28/21 18:45 11/28/21 19:00 Temperature Pulse Rate 104 H 108 H 102 H Respiratory Rate 25 H 25 H 24 Blood Pressure 109/76 108/72 104/63 Pulse Oximetry 100 100 100 11/28/21 19:15 11/28/21 19:30 Temperature Pulse Rate 103 H 101 H Respiratory Rate 28 H 28 H Blood Pressure 103/66 Pulse Oximetry 100 100 Oxygen Delivery Method Room Air Narrative Exam Narrative: Gen: Alert, oriented, very thin 46 y.o. female, NAD HEENT: normocephalic, atraumatic, conjunctiva clear, sclera non-icteric, oral mucosa pink and moist Neck: supple, full ROM, no JVD, trachea is midline Resp: Lungs CTA, non-labored breathing CV: RRR, no murmur or rubs Abd: soft, non-tender, normoactive BTs Skin: Has a superficial, but bleeding wound on her right mid back, approximately 1 inch square, Neuro: Alert and oriented X 4 w/no focal deficits. Speech clear and coherent. Extremities: moves all 4 extremities, is ambulatory, negative Christelle?s sign Psyche: normal mood and affect. Objective Labs Result Diagrams: 11/28/21 15:27 11/28/21 18:30 Labs: Laboratory Results - last 24 hr 11/28/21 11/28/21 11/28/21 15:27 15:27 15:27 WBC 6.8 RBC 3.56 L Hgb 9.7 L Hct 31.3 L MCV 88.0 MCH 27.2 MCHC 30.9 RDW 29.4 H Plt Count 531 H Neut % (Auto) 71.9 Lymph % (Auto) 19.1 L Mcdowell % (Auto) 7.9 Eos % (Auto) 0.6 L Baso % (Auto) 0.5 Neut # (Auto) 4900 Lymph # (Auto) 1300 Mcdowell # (Auto) 500 Eos # (Auto) 0 Baso # (Auto) 0 RBC Morphology Not Reportable Anisocytosis 3+ H Macrocytosis 2+ H ABG pH ABG pCO2 ABG pO2 ABG HCO3 ABG Total CO2 ABG O2 Saturation ABG Base Excess VBG pH VBG pCO2 VBG pO2 VBG HCO3 VBG Total CO2 VBG O2 Saturation VBG Base Excess FiO2 Sodium 126 L Potassium 4.6 Chloride 103 Carbon Dioxide 14 L BUN 12 Creatinine 0.57 Estimated GFR > 60.0 BUN/Creatinine Ratio 21.1 Glucose 679 H* Lactate 1.3 Calcium 8.2 L Phosphorus Magnesium Total Bilirubin 0.4 AST 36 ALT 22 Alkaline Phosphatase 129 H Total Protein 6.6 Albumin 3.5 Globulin 3.1 Albumin/Globulin Ratio 1.1 Procalcitonin 16.2 H Urine Color Urine Appearance Urine pH Ur Specific [place] Urine Protein Urine Glucose (UA) Urine Ketones Urine Occult Blood Urine Nitrate Urine Bilirubin Urine Urobilinogen Ur Leukocyte Esterase Urine RBC Urine WBC Ur Squamous Epith Cells Urine Bacteria Ur Culture Indicated? Urine Test Ethyl Alcohol Ketones 0.09 SARS-CoV-2 (PCR) 11/28/21 11/28/21 11/28/21 15:32 15:56 15:56 WBC RBC Hgb Hct MCV MCH MCHC RDW Plt Count Neut % (Auto) Lymph % (Auto) Mcdowell % (Auto) Eos % (Auto) Baso % (Auto) Neut # (Auto) Lymph # (Auto) Mcdowell # (Auto) Eos # (Auto) Baso # (Auto) RBC Morphology Anisocytosis Macrocytosis ABG pH ABG pCO2 ABG pO2 ABG HCO3 ABG Total CO2 ABG O2 Saturation ABG Base Excess VBG pH 7.30 L VBG pCO2 35.8 L VBG pO2 42 VBG HCO3 17 L VBG Total CO2 18 L VBG O2 Saturation 72 VBG Base Excess -9.0 L FiO2 Sodium Potassium Chloride Carbon Dioxide BUN Creatinine Estimated GFR BUN/Creatinine Ratio Glucose Lactate Calcium Phosphorus Magnesium Total Bilirubin AST ALT Alkaline Phosphatase Total Protein Albumin Globulin Albumin/Globulin Ratio Procalcitonin Urine Color Straw Urine Appearance Slightly cloudy Urine pH 6.5 Ur Specific [place] <=1.005 Urine Protein Negative Urine Glucose (UA) 2+ H Urine Ketones Negative Urine Occult Blood 2+ H Urine Nitrate Negative Urine Bilirubin Negative Urine Urobilinogen 0.2 Ur Leukocyte Esterase Negative Urine RBC 10-30/hpf H Urine WBC 30-100/hpf H Ur Squamous Epith Cells 1-5 /hpf Urine Bacteria Many (>30) H Ur Culture Indicated? Specimen cultured Urine Test Negative Ethyl Alcohol Ketones SARS-CoV-2 (PCR) 11/28/21 11/28/21 11/28/21 17:50 18:30 18:30 WBC RBC Hgb Hct MCV MCH MCHC RDW Plt Count Neut % (Auto) Lymph % (Auto) Mcdowell % (Auto) Eos % (Auto) Baso % (Auto) Neut # (Auto) Lymph # (Auto) Mcdowell # (Auto) Eos # (Auto) Baso # (Auto) RBC Morphology Anisocytosis Macrocytosis ABG pH ABG pCO2 ABG pO2 ABG HCO3 ABG Total CO2 ABG O2 Saturation ABG Base Excess VBG pH VBG pCO2 VBG pO2 VBG HCO3 VBG Total CO2 VBG O2 Saturation VBG Base Excess FiO2 Sodium 136 L D Potassium 3.2 L D Chloride 114 H Carbon Dioxide 14 L BUN 11 Creatinine 0.49 L Estimated GFR > 60.0 BUN/Creatinine Ratio 22.4 H Glucose 127 H D Lactate Calcium 8.4 Phosphorus 3.2 Magnesium 1.8 Total Bilirubin AST ALT Alkaline Phosphatase Total Protein Albumin Globulin Albumin/Globulin Ratio Procalcitonin Urine Color Urine Appearance Urine pH Ur Specific [place] Urine Protein Urine Glucose (UA) Urine Ketones Urine Occult Blood Urine Nitrate Urine Bilirubin Urine Urobilinogen Ur Leukocyte Esterase Urine RBC Urine WBC Ur Squamous Epith Cells Urine Bacteria Ur Culture Indicated? Urine Test Ethyl Alcohol < 10 Ketones SARS-CoV-2 (PCR) Negative 11/28/21 19:28 WBC RBC Hgb Hct MCV MCH MCHC RDW Plt Count Neut % (Auto) Lymph % (Auto) Mcdowell % (Auto) Eos % (Auto) Baso % (Auto) Neut # (Auto) Lymph # (Auto) Mcdowell # (Auto) Eos # (Auto) Baso # (Auto) RBC Morphology Anisocytosis Macrocytosis ABG pH 7.34 L ABG pCO2 31.8 L ABG pO2 106 H ABG HCO3 17 L ABG Total CO2 18 L ABG O2 Saturation 98 ABG Base Excess -9.0 L VBG pH VBG pCO2 VBG pO2 VBG HCO3 VBG Total CO2 VBG O2 Saturation VBG Base Excess FiO2 21 Sodium Potassium Chloride Carbon Dioxide BUN Creatinine Estimated GFR BUN/Creatinine Ratio Glucose Lactate Calcium Phosphorus Magnesium Total Bilirubin AST ALT Alkaline Phosphatase Total Protein Albumin Globulin Albumin/Globulin Ratio Procalcitonin Urine Color Urine Appearance Urine pH Ur Specific [place] Urine Protein Urine Glucose (UA) Urine Ketones Urine Occult Blood Urine Nitrate Urine Bilirubin Urine Urobilinogen Ur Leukocyte Esterase Urine RBC Urine WBC Ur Squamous Epith Cells Urine Bacteria Ur Culture Indicated? Urine Test Ethyl Alcohol Ketones SARS-CoV-2 (PCR) Assessment & Plan Assessment & Plan narrative: Valerie Garnica is admitted for further evaluation and management of a cystitis and elevated blood sugars. 1. Urinary tract infection, acute, present on admission She was administered IV ceftriaxone 1 g in the ED and will continue the same dose acute 24 hours Renal ultrasound scheduled for the morning of November 29 2. Hyperglycemia, acute, present on admission She has nonketotic hyperglycemia and her normal dose of glargine will be started at 20 units at bedtime and medium dose regular insulin correctional scale Carb controlled diet with glucose checks ACHS 3. Diabetic polyneuropathy, chronic Continue home dose of gabapentin 900 mg p.o. t.i.d. 4. Chronic pain, fibromyalgia Continue home dose of cyclobenzaprine 10 mg p.o. t.i.d. as needed 5. Depression, chronic Continue home dose of buspirone 20 mg p.o. t.i.d. VTE Prophylaxis: Wells risk score 3 Enoxaparin 40 mg subQ once daily Bilateral SCDs Patient is admitted to the inpatient service due to the severity of disease, risks of further disease progression and this stay is expected to exceed 2 midnights. FEN: IV fluids: saline lock, diet: carb controlled, labs: CBC, C/BMP, liver enzymes, [employer] None. Dispo: likely discharge to home Code status: Full code as discussed with the patient. [X] I have utilized all available immediate resources to obtain, update, or review of the patient's current medications COVID-19 COVID-19 status: Negative Result date/Date tested (Pos, Neg/Pending): 11/28/21 Time Spent With Patient Critical Care time: I spent a total of [] minutes of critical care time on this patient's care today; this time is exclusive of procedural time. Scores Roe' Criteria for PE Clinical signs and symptoms of DVT: No PE is #1 Dx or equally likely: No Heart rate > 100: Yes Immobilization at least 3 days or surg in previous 4 weeks: No History of PE or DVT: Yes Hemoptysis: No Malignancy w/Treatment within 6 months or palliative: No Wells' PE Score total: 3.0 Quality VTE Deep Vein Thrombosis/Pulmonary Embolism Present on Admission: No MIPS - Admit I confirm the patient?s Advance Care Plan is present, Code status is documented, Surrogate decision maker is in patient?s record [If Yes, STOP here]: Yes MIPS - DC The patient has current or prior documentation of left ventricular ejection fraction (LVEF) less than 40%, or moderate or severely depressed left ventricular systolic function.: No
[2021-11-28 22:18] LABS: Hemoglobin A1C% w Est Avg Glu 11.3 % (4.0-6.0)
[2021-11-28] MEDS: GABAPENTIN 300 MG CAPSULE 900 MG PO (22:55)
[2021-11-28] MEDS: ATORVASTATIN 20 MG TABLET 40 MG PO (22:55)
[2021-11-28] MEDS: CYCLOBENZAPRINE 10 MG TABLET 5 MG PO (22:56)
[2021-11-28] MEDS: INSULIN LISPRO 100 UNIT/ML 3ML VIAL SUBCUT (23:19)
[2021-11-28] MEDS: INSULIN GLARGINE 100 UNIT/ML 3ML PEN 20 UNIT SUBCUT (23:19)
[2021-11-29] VITALS (7 sets, daily range): BP systolic 97–134; BP diastolic 64–93; PULSE 68–111; RESP 17–20; TEMP 36.1–37; O2SAT 99–100
--- NOTE | 2021-11-29 | DI.US.S_ITS ---
PROCEDURE: US RENAL COMPLETE INDICATIONS: UTI; POSSIBLE PYELONEPHRITIS TECHNIQUE: Real-time scanning was performed of the kidneys and bladder, with image documentation. COMPARISON: [facility], CT, CT ABDOMEN PELVIS W MICHI, 02/08/2018, 17:27. FINDINGS: Kidneys: Kidneys are normal in size. Right kidney measures 11.1 cm long; left kidney measures 11 cm long. Right renal cortical thickness is 1.9 cm; left renal cortical thickness is 1.9 cm. Renal cortical echotexture is normal. No hydronephrosis or nephrolithiasis. No suspicious solid mass lesions. Bladder: Decompressed limiting evaluation. IMPRESSION: No hydronephrosis. No perinephric fluid collection demonstrated. Consider further evaluation with CT abdomen pelvis with IV contrast. Dictated by: Kenji Thompson M.D. on 11/29/2021 at 10:04 Approved by: Kenji Thompson M.D. on 11/29/2021 at 10:12
[2021-11-29] MEDS: ACETAMINOPHEN 325 MG TABLET 650 MG PO ×3 (00:16→21:48)
[2021-11-29 06:27] LABS: Basophils Absolute Auto 0 /uL (0-100); Basophils Percent Auto 0.2 % (0-2); Eosinophils Absolute Auto 100 /uL (0-450); Eosinophils Percent Auto 1.2 % (2-4); Hematocrit 29.7 % (36-46); Hemoglobin 9.4 g/dL (12.0-16.0); Lymphocytes Absolute Auto 3400 /uL (1100-4500); Lymphocytes Percent Auto 34.6 % (25-40); Mean Corpuscular HGB Conc 31.7 % (30-36); Mean Corpuscular Hemoglobin 26.9 PG (26-34); Mean Corpuscular Volume 84.8 fL (80-100); Monocytes Absolute Auto 900 /uL (0-900); Monocytes Percent Auto 8.7 % (3-14); Neutrophils Absolute Auto 5500 /uL (1500-7000); Neutrophils Percent Auto 55.3 % (50-75); Platelet Count 531 X10^3/uL (150-400); Red Cell Distribution Width 29.6 % (11.6-14.8); White Blood Cell Count 9.9 X10^3/uL (4.5-11.0)
[2021-11-29 06:28] LABS: Add Manual Diff / Slide Review SLIDE REVIEW
[2021-11-29 07:07] LABS: Anisocytosis 2+; Poikilocytosis 1+
[2021-11-29] MEDS: GABAPENTIN 300 MG CAPSULE 900 MG PO ×3 (07:50→21:48)
[2021-11-29] MEDS: INSULIN LISPRO 100 UNIT/ML 3ML VIAL SUBCUT ×4 (07:52→21:50)
[2021-11-29] MEDS: BUSPIRONE 5 MG TABLET 20 MG PO ×3 (08:05→21:47)
[2021-11-29] MEDS: ENOXAPARIN 40 MG/0.4 ML SYRINGE SUBCUT (08:06)
[2021-11-29 08:11] LABS: Blood Urea Nitrogen 11 mg/dL (7-17); Calcium 8.2 mg/dL (8.4-10.2); Carbon Dioxide 15 mmol/L (22-32); Chloride 113 mmol/L (98-107); Estimated Glomerular Filt Rate > 60.0 mL/min (>60); Glucose 296 mg/dL (70-100); HEMOLYSIS < 15 (0-50); Magnesium 1.9 mg/dL (1.6-2.3); Potassium 3.8 mmol/L (3.4-5.1); Sodium 135 mmol/L (137-145)
[2021-11-29] MEDS: SODIUM CHLORIDE 0.9% 1,000 ML 1000 ML IV ×2 (11:42→15:49)
[2021-11-29] MEDS: CYCLOBENZAPRINE 10 MG TABLET 5 MG PO ×2 (13:01→21:48)
[2021-11-29] MEDS: OXYCODONE IR 5 MG TABLET PO ×2 (13:02→18:21)
[2021-11-29 14:21] LABS: BUN Creatinine Ratio 18.6 (6-22); Blood Urea Nitrogen 11 mg/dL (7-17); Carbon Dioxide 19 mmol/L (22-32); Chloride 109 mmol/L (98-107); Estimated Glomerular Filt Rate > 60.0 mL/min (>60); Glucose 234 mg/dL (70-100); HEMOLYSIS < 15 (0-50); Potassium 4.5 mmol/L (3.4-5.1); Sodium 133 mmol/L (137-145)
--- NOTE | 2021-11-29 14:26 | CM.DANOTE ---
DCP: Case received, EMR reviewed and met with patient. Introduced self and role. Was able to obtain information regarding patient's baseline activity status at home prior to hospitalization. DCP assessment completed with information currently available. Patient is a 46 year old female who admitted yesterday evening to the care of the hospitalist team. PCP: Dr. Evans, [facility]. Payer: Medicaid/[facility]. Patient came to the hospital via ambulance secondary to having blurred vision, and nausea without vomiting, and polydypsia. She holds diagnosis of UTI, and DKA. Patient has history of alcohol abuse, as well as Lupus Patient also indicated, she has had CVA as well. Met with patient in her room. She is pleasant. Confirmed with her that she resides in [facility] with her daughter, and other family members. At her baseline she uses a FWW, and does not drive. Asked her about her primary care provider and getting her medications. She indicated, sometimes it's hard to get a hold of someone at the clinic for medication renewal. P: DCP to continue to follow. Patient should be able to go home when medically stable. Laya Duarte RN/Media Director. Discharge Planning/Care Management CM Discharge Assessment Start: 11/29/21 14:20 Freq: Status: Active Protocol: Document 11/29/21 14:20 (Rec: 11/29/21 14:26 [id number]) Discharge Planning Assessment Assigned Coach Laya Duarte RN/Media Director Advance Directives? No Advance Directives on File No History Provided By Patient,Medical Record Prior Living Arrangements House Household Members family Type of transporation used prior to Relies on Others admit Independent with ADL's Yes Is patient alert and oriented? Yes DME Already Rented / Owned FWW / Walker Barriers to Discharge No Discharge Plan Home Transportation Arrangement Family Referrals Initiated None needed If patient plan is SNF: Has PASSR been Yes completed? Whiteboard Updated in Patient Room with Yes name and ext. # of Coach Review Status In Process Next Review Type Continued Stay Review
--- NOTE | 2021-11-29 15:23 | DI.RAD.S_ITS ---
PROCEDURE: XR HIP W PEL IF DONE RT 2V INDICATIONS: fall, hip pain TECHNIQUE: AP pelvis with lateral view(s) of the right hip(s). 3 images. COMPARISON: [facility], CR, XR HIP W PEL IF DONE RT 2V, 03/19/2020, 14:25. [facility], CR, XR HIP W PEL IF DONE RT 2V, 06/04/2019, 10:01. FINDINGS: Bones: No fractures or dislocations. Right hip screw fixation. No periscrew lucency. Pelvic ring appears intact. No suspicious bony lesions. Soft tissues: Prominent stool in the rectum and distal colon. No suspicious soft tissue calcifications. IMPRESSION: Stable appearance of the right hip fixation. Prominent stool in the rectum and distal colon. Dictated by: Kenji Thompson M.D. on 11/29/2021 at 15:00 Approved by: Kenji Thompson M.D. on 11/29/2021 at 15:05
--- NOTE | 2021-11-29 15:26 | PM.PN.1 ---
Subjective Subjective Date Patient Seen: 11/29/21 Time Patient Seen: 08:00 Interval history: Today she is feeling somewhat stronger. She has right hip pain from a recent fall. She still feels her vision is blurry. Exam Vital Signs (past 8 hours): - 11/29/21 07:30 11/29/21 11:00 11/29/21 15:00 Temperature 97.0 F L 98.5 F 98.6 F Pulse Rate 102 H 103 H 106 H Respiratory Rate 19 20 19 Blood Pressure 99/64 100/68 110/72 Pulse Oximetry 99 100 99 Oxygen Delivery Method Room Air Narrative Exam Narrative: Gen: no acute distress Resp: clear bilaterally CV: regular rate and rhythm, no murmurs Abd: soft, nontender Neuro: no focal deficts Objective Labs Result Diagrams: 11/29/21 05:05 11/29/21 13:50 Labs: Laboratory Results - last 24 hr 11/28/21 11/28/21 11/28/21 15:27 15:27 15:27 WBC 6.8 RBC 3.56 L Hgb 9.7 L Hct 31.3 L MCV 88.0 MCH 27.2 MCHC 30.9 RDW 29.4 H Plt Count 531 H Neut % (Auto) 71.9 Lymph % (Auto) 19.1 L [place] % (Auto) 7.9 Eos % (Auto) 0.6 L Baso % (Auto) 0.5 Neut # (Auto) 4900 Lymph # (Auto) 1300 [place] # (Auto) 500 Eos # (Auto) 0 Baso # (Auto) 0 RBC Morphology Not Reportable Poikilocytosis Anisocytosis 3+ H Macrocytosis 2+ H ABG pH ABG pCO2 ABG pO2 ABG HCO3 ABG Total CO2 ABG O2 Saturation ABG Base Excess VBG pH VBG pCO2 VBG pO2 VBG HCO3 VBG Total CO2 VBG O2 Saturation VBG Base Excess FiO2 Sodium 126 L Potassium 4.6 Chloride 103 Carbon Dioxide 14 L BUN 12 Creatinine 0.57 Estimated GFR > 60.0 BUN/Creatinine Ratio 21.1 Glucose 679 H* Hemoglobin A1c Lactate 1.3 Calcium 8.2 L Phosphorus Magnesium Total Bilirubin 0.4 AST 36 ALT 22 Alkaline Phosphatase 129 H Total Protein 6.6 Albumin 3.5 Globulin 3.1 Albumin/Globulin Ratio 1.1 Procalcitonin 16.2 H Urine Color Urine Appearance Urine pH Ur Specific [place] Urine Protein Urine Glucose (UA) Urine Ketones Urine Occult Blood Urine Nitrate Urine Bilirubin Urine Urobilinogen Ur Leukocyte Esterase Urine RBC Urine WBC Ur Squamous Epith Cells Urine Bacteria Ur Culture Indicated? Urine Test Ethyl Alcohol Ketones 0.09 SARS-CoV-2 (PCR) 11/28/21 11/28/21 11/28/21 15:27 15:32 15:56 WBC RBC Hgb Hct MCV MCH MCHC RDW Plt Count Neut % (Auto) Lymph % (Auto) [place] % (Auto) Eos % (Auto) Baso % (Auto) Neut # (Auto) Lymph # (Auto) [place] # (Auto) Eos # (Auto) Baso # (Auto) RBC Morphology Poikilocytosis Anisocytosis Macrocytosis ABG pH ABG pCO2 ABG pO2 ABG HCO3 ABG Total CO2 ABG O2 Saturation ABG Base Excess VBG pH 7.30 L VBG pCO2 35.8 L VBG pO2 42 VBG HCO3 17 L VBG Total CO2 18 L VBG O2 Saturation 72 VBG Base Excess -9.0 L FiO2 Sodium Potassium Chloride Carbon Dioxide BUN Creatinine Estimated GFR BUN/Creatinine Ratio Glucose Hemoglobin A1c 11.3 H Lactate Calcium Phosphorus Magnesium Total Bilirubin AST ALT Alkaline Phosphatase Total Protein Albumin Globulin Albumin/Globulin Ratio Procalcitonin Urine Color Straw Urine Appearance Slightly cloudy Urine pH 6.5 Ur Specific [place] <=1.005 Urine Protein Negative Urine Glucose (UA) 2+ H Urine Ketones Negative Urine Occult Blood 2+ H Urine Nitrate Negative Urine Bilirubin Negative Urine Urobilinogen 0.2 Ur Leukocyte Esterase Negative Urine RBC 10-30/hpf H Urine WBC 30-100/hpf H Ur Squamous Epith Cells 1-5 /hpf Urine Bacteria Many (>30) H Ur Culture Indicated? Specimen cultured Urine Test Ethyl Alcohol Ketones SARS-CoV-2 (PCR) 11/28/21 11/28/21 11/28/21 15:56 17:50 18:30 WBC RBC Hgb Hct MCV MCH MCHC RDW Plt Count Neut % (Auto) Lymph % (Auto) [place] % (Auto) Eos % (Auto) Baso % (Auto) Neut # (Auto) Lymph # (Auto) [place] # (Auto) Eos # (Auto) Baso # (Auto) RBC Morphology Poikilocytosis Anisocytosis Macrocytosis ABG pH ABG pCO2 ABG pO2 ABG HCO3 ABG Total CO2 ABG O2 Saturation ABG Base Excess VBG pH VBG pCO2 VBG pO2 VBG HCO3 VBG Total CO2 VBG O2 Saturation VBG Base Excess FiO2 Sodium 136 L D Potassium 3.2 L D Chloride 114 H Carbon Dioxide 14 L BUN 11 Creatinine 0.49 L Estimated GFR > 60.0 BUN/Creatinine Ratio 22.4 H Glucose 127 H D Hemoglobin A1c Lactate Calcium 8.4 Phosphorus 3.2 Magnesium 1.8 Total Bilirubin AST ALT Alkaline Phosphatase Total Protein Albumin Globulin Albumin/Globulin Ratio Procalcitonin Urine Color Urine Appearance Urine pH Ur Specific [place] Urine Protein Urine Glucose (UA) Urine Ketones Urine Occult Blood Urine Nitrate Urine Bilirubin Urine Urobilinogen Ur Leukocyte Esterase Urine RBC Urine WBC Ur Squamous Epith Cells Urine Bacteria Ur Culture Indicated? Urine Test Negative Ethyl Alcohol Ketones SARS-CoV-2 (PCR) Negative 11/28/21 11/28/21 11/29/21 18:30 19:28 05:05 WBC 9.9 RBC 3.50 L Hgb 9.4 L Hct 29.7 L MCV 84.8 D MCH 26.9 MCHC 31.7 RDW 29.6 H Plt Count 531 H Neut % (Auto) 55.3 Lymph % (Auto) 34.6 [place] % (Auto) 8.7 Eos % (Auto) 1.2 L Baso % (Auto) 0.2 Neut # (Auto) 5500 Lymph # (Auto) 3400 [place] # (Auto) 900 Eos # (Auto) 100 Baso # (Auto) 0 RBC Morphology Not Reportable Poikilocytosis 1+ H Anisocytosis 2+ H Macrocytosis ABG pH 7.34 L ABG pCO2 31.8 L ABG pO2 106 H ABG HCO3 17 L ABG Total CO2 18 L ABG O2 Saturation 98 ABG Base Excess -9.0 L VBG pH VBG pCO2 VBG pO2 VBG HCO3 VBG Total CO2 VBG O2 Saturation VBG Base Excess FiO2 21 Sodium Potassium Chloride Carbon Dioxide BUN Creatinine Estimated GFR BUN/Creatinine Ratio Glucose Hemoglobin A1c Lactate Calcium Phosphorus Magnesium Total Bilirubin AST ALT Alkaline Phosphatase Total Protein Albumin Globulin Albumin/Globulin Ratio Procalcitonin Urine Color Urine Appearance Urine pH Ur Specific [place] Urine Protein Urine Glucose (UA) Urine Ketones Urine Occult Blood Urine Nitrate Urine Bilirubin Urine Urobilinogen Ur Leukocyte Esterase Urine RBC Urine WBC Ur Squamous Epith Cells Urine Bacteria Ur Culture Indicated? Urine Test Ethyl Alcohol < 10 Ketones SARS-CoV-2 (PCR) 11/29/21 11/29/21 05:05 13:50 WBC RBC Hgb Hct MCV MCH MCHC RDW Plt Count Neut % (Auto) Lymph % (Auto) [place] % (Auto) Eos % (Auto) Baso % (Auto) Neut # (Auto) Lymph # (Auto) [place] # (Auto) Eos # (Auto) Baso # (Auto) RBC Morphology Poikilocytosis Anisocytosis Macrocytosis ABG pH ABG pCO2 ABG pO2 ABG HCO3 ABG Total CO2 ABG O2 Saturation ABG Base Excess VBG pH VBG pCO2 VBG pO2 VBG HCO3 VBG Total CO2 VBG O2 Saturation VBG Base Excess FiO2 Sodium 135 L 133 L Potassium 3.8 4.5 Chloride 113 H 109 H Carbon Dioxide 15 L 19 L BUN 11 11 Creatinine 0.50 L 0.59 Estimated GFR > 60.0 > 60.0 BUN/Creatinine Ratio 22.0 18.6 Glucose 296 H D 234 H Hemoglobin A1c Lactate Calcium 8.2 L 8.0 L Phosphorus Magnesium 1.9 Total Bilirubin AST ALT Alkaline Phosphatase Total Protein Albumin Globulin Albumin/Globulin Ratio Procalcitonin Urine Color Urine Appearance Urine pH Ur Specific [place] Urine Protein Urine Glucose (UA) Urine Ketones Urine Occult Blood Urine Nitrate Urine Bilirubin Urine Urobilinogen Ur Leukocyte Esterase Urine RBC Urine WBC Ur Squamous Epith Cells Urine Bacteria Ur Culture Indicated? Urine Test Ethyl Alcohol Ketones SARS-CoV-2 (PCR) [facility] Medical History Alcohol intoxication Closed hip fracture COVID DKA (diabetic ketoacidoses) DKA (diabetic ketoacidosis) Fibromyalgia Gastroesophageal reflux disease Insulin dependent diabetes mellitus Lupus Osteoporosis Surgical History No pertinent past surgical history Family History Mother Diabetes mellitus Congestive heart failure Pancreatic cancer Father Diabetes mellitus Brother Diabetes mellitus Pancreatitis Sister Drug overdose Social History household members: family Smoking Status: Former smoker alcohol intake: current Assessment & Plan Assessment & Plan narrative: Valerie Garnica is admitted for further evaluation and management of a cystitis and elevated blood sugars. 1. Urinary tract infection, acute, present on admission -She was administered IV ceftriaxone 1 g in the ED and will continue the same dose acute 24 hours 2. Hyperglycemia, acute, present on admission -She has nonketotic hyperglycemia and her normal dose of glargine will be started at 20 units at bedtime and medium dose insulin correctional scale -Carb controlled diet with glucose checks ACHS 3. Diabetic polyneuropathy, chronic -Continue home dose of gabapentin 900 mg p.o. t.i.d. 4. Chronic pain, fibromyalgia -Continue home dose of cyclobenzaprine 10 mg p.o. t.i.d. as needed 5.? Depression, chronic -Continue home dose of buspirone 20 mg p.o. t.i.d. 6. Right hip pain -xray ordered to evaluate worsening pain after recent fall Time Spent With Patient Critical Care time: I spent a total of [] minutes of critical care time on this patient's care today; this time is exclusive of procedural time. Quality VTE Deep Vein Thrombosis/Pulmonary Embolism Present on Admission: No
[2021-11-29] MEDS: cefTRIAXone 1,000 MG in SODIUM CHLORIDE 0.9% 100 ML 200 ML IV (17:02)
[2021-11-29] MEDS: ATORVASTATIN 20 MG TABLET 40 MG PO (21:48)
[2021-11-29] MEDS: INSULIN GLARGINE 100 UNIT/ML 3ML PEN 20 UNIT SUBCUT (21:49)
[2021-11-29] MEDS: SODIUM CHLORIDE 0.9% FLUSH 10 ML IV (22:03)
[2021-11-30] MEDS: OXYCODONE IR 5 MG TABLET PO ×3 (01:10→12:53)
[2021-11-30 05:00] VITALS: BP 116/75; PULSE 99; RESP 17; O2SAT 99
[2021-11-30 06:15] LABS: BUN Creatinine Ratio 31.7 (6-22); Blood Urea Nitrogen 13 mg/dL (7-17); Calcium 8.4 mg/dL (8.4-10.2); Carbon Dioxide 20 mmol/L (22-32); Chloride 104 mmol/L (98-107); Estimated Glomerular Filt Rate > 60.0 mL/min (>60); Glucose 374 mg/dL (70-100); HEMOLYSIS < 15 (0-50); Magnesium 1.9 mg/dL (1.6-2.3); Potassium 4.2 mmol/L (3.4-5.1); Sodium 131 mmol/L (137-145)
[2021-11-30 06:23] LABS: Hematocrit 28.8 % (36-46); Hemoglobin 9.3 g/dL (12.0-16.0); Mean Corpuscular HGB Conc 32.1 % (30-36); Mean Corpuscular Volume 84.1 fL (80-100); Platelet Count 508 X10^3/uL (150-400); Red Blood Cell Count 3.43 X10^6/uL (4.0-5.2); Red Cell Distribution Width 29.7 % (11.6-14.8); White Blood Cell Count 8.4 X10^3/uL (4.5-11.0)
[2021-11-30 08:26] VITALS: O2SAT 99
[2021-11-30 09:15] VITALS: BP 132/85; PULSE 102; RESP 22; TEMP 36.3; O2SAT 98
[2021-11-30] MEDS: INSULIN LISPRO 100 UNIT/ML 3ML VIAL SUBCUT ×2 (09:16→12:46)
[2021-11-30] MEDS: ENOXAPARIN 40 MG/0.4 ML SYRINGE SUBCUT (09:18)
[2021-11-30] MEDS: GABAPENTIN 300 MG CAPSULE 900 MG PO (09:18)
[2021-11-30] MEDS: BUSPIRONE 5 MG TABLET 20 MG PO (09:18)
[2021-11-30] MEDS: SODIUM CHLORIDE 0.9% FLUSH 10 ML IV (09:19)
--- NOTE | 2021-11-30 09:53 | P.DS_ITS ---
History of Present Illness History of Present Illness Chief complaint: Hyperglycemia, UTI, hypokalemia Narrative: Henrique Kaylynpatrice Chong: Valerie Garnica is a 46 y.o. Type 1 diabetic who presented to the ED with complaints of blurred vision, nausea w/o vomiting, polydypsia, polyurea, posterior flank pain, abdominal pain and elevated blood sugars. She was running out of her insulin and was hesitant to contact her PCP's office because he does not like to be bothered. She normally uses lantus 20 units daily but had r educed her dose to 8 units daily and stopped using her correctional scale insulin. Patient was recently admitted for diabetic ketoacidosis and a UTI in July, found to have COVID-19 pneumonia, subsequently had a stroke and was transferred to the [facility] [place] where she subsequently went to an acute rehab facility and was discharged in September of this year. Patient was administered 10 units of regular insulin in the ED. U/A was positive for a UTI.? She is afebrile, blood pressure 107/68, heart rate 99, respiratory rate 16, oxygen saturation of 99% on room air she weighs 44.5 kg with a BMI of 17.4.? WBC is 6.8 RBC 3.56 hemoglobin 9.7 hematocrit 31.3 platelet count 531, admission ABG included a pH of 7.34 ABG pCO2 31.8 ABG PO2 106 ABG bicarb 17 ABG total CO2 18 with an oxygen saturation 98% and base excess of - 9.? Sodium 136, potassium 3.2, chloride 114, bicarb 14, BUN 11, creatinine 0.49, with an EGFR of greater than 60, glucose 127, A1c is 11.3, lactate is normal, phosphorus 3.2, magnesium 1.8, liver enzymes within normal limits, procalcitonin is 16.2, UA is positive for urinary tract infection and COVID-19 PCR is negative. Discharge Providers Provider Date of admission: 11/28/21 19:36 Discharge Date: 11/30/21 Primary care physician: Jhonny Evans PA-C Discharge provider: David Royal MD Summary Hospital Course Discharge Diagnosis: 1. UTI 2. Hyperglycemia 3. Diabetic polyneuropathy 4. Chronic pain 5. Depression 6. Protein calorie malnutrition, BMI 17.4 Hospital Course: Ms. Garnica was admitted with nausea, polydipsia in the setting of running low on her insulin and using less than prescribed so as not to run out. She was hyperglycemic but did not have DKA. A1c was >11. She was restarted on her home dose of lantus at 20U daily, but remained hyperglycemic so was discharged on a higher dose of lantus at 30U daily. She was given prescription. She was found to have a UTI and discharged with antibiotics. She will need close follow up with her PCP to continue to manage her diabetes. Exam Vital Signs (past 8 hours): Oxygen Delivery Method Room Air Oxygen Flow Rate 0 Narrative Exam Narrative: Gen: no acute distress Resp: clear bilaterally CV: regular rate and rhythm, no murmurs Abd: soft, nontender Neuro: no focal deficts Objective Labs Result Diagrams: 11/30/21 05:22 11/30/21 05:22 Labs: Laboratory Results - last 24 hr 11/30/21 11/30/21 05:22 05:22 WBC 8.4 RBC 3.43 L Hgb 9.3 L Hct 28.8 L MCV 84.1 MCH 27.0 MCHC 32.1 RDW 29.7 H Plt Count 508 H Sodium 131 L Potassium 4.2 Chloride 104 Carbon Dioxide 20 L BUN 13 Creatinine 0.41 L Estimated GFR > 60.0 BUN/Creatinine Ratio 31.7 H Glucose 374 H D Calcium 8.4 Magnesium 1.9 PFSH Medical History Alcohol intoxication Closed hip fracture COVID DKA (diabetic ketoacidoses) DKA (diabetic ketoacidosis) Fibromyalgia Gastroesophageal reflux disease Insulin dependent diabetes mellitus Lupus Osteoporosis Surgical History No pertinent past surgical history Family History Mother Diabetes mellitus Congestive heart failure Pancreatic cancer Father Diabetes mellitus Brother Diabetes mellitus Pancreatitis Sister Drug overdose Social History household members: family Smoking Status: Former smoker alcohol intake: current Discharge Plan Discharge Plan Patient Disposition: Home Provider Discharge Comment: Ms. Garnica came in to the hospital with high glucose and with a urinary tract infection. She had run out of her insulin. She was restarted on insulin and her dose was increased to 30U daily as she had an elevated a1c and high blood sugar in the hospital. She had a urinary tract infection and was given antibiotics and felt better. She should follow up with her pcp within one week. Discharge orders & Medications Prescriptions: New levofloxacin 500 mg tablet 500 mg PO DAILY Qty: 2 0RF (DME) Test N'Go Test Strip See Rx Instructions .Route Qty: 50 0RF Rx Instructions: As directed Continued insulin aspart U-100 [Novolog Flexpen U-100 Insulin] 100 unit/mL Insulin Pen 0 unit Sub-Q AC Qty: 3 0RF Rx Instructions: 1-3 UNITS TID buspirone 10 mg Tablet 2 tab PO TID 0RF cyclobenzaprine 10 mg Tablet 10 mg PO TID PRN (Reason: pain) 0RF gabapentin 600 mg Tablet 1.5 tab PO TID 0RF acetaminophen 325 mg Tablet 975 mg PO TID PRN (Reason: Pain, Moderate) Qty: 30 0RF ondansetron 4 mg tablet,disintegrating 4 mg PO TID-QID PRN (Reason: nausea and vomiting) Qty: 10 0RF ibuprofen 600 mg tablet 600 mg PO Q6H PRN (Reason: pain) Qty: 30 0RF Changed insulin glargine 100 unit/mL (3 mL) Insulin Pen 30 unit SUBCUT QPM Qty: 15 0RF Follow up/Referrals: Jhonny Evans PA-C [Primary Care Provider] - Diet/Activity/Treatments Diet: Carb-consistent/Diabetic Visit Report/Discharge Packet Instructions: DI for Urinary Tract Infection (UTI), DI for Diabetes Type 2 Discharge Data Primary Care Provider: Jhonny Evans Quality VTE Deep Vein Thrombosis/Pulmonary Embolism Present on Admission: No
--- NOTE | 2021-11-30 11:47 | DIET.CONS ---
Dietary Consultation Note Admission Date: 11/28/2021 19:36 Assessment: 46y F admitted for DKA and UTI screened by RD for previous malnutrition and troubles with DM management. Since admission 5w ago, pts A1c jumped from 8.6 to 11.3 and weight has dropped additional 2.5kg with combined weight loss of 14kg (-24% in 4mo, severe) with current BMI 17.4 (severe). Pt reports she has difficulty getting med refills from her PCP so she has been rationing her insulin with BGs in 300s. On admission, BG >600 with sx DKA. Pt previously hospitalized for covid PNA with poor dentition and loss of taste influencing weight loss. Ht: 160.02 cm Wt: 44.5 kg BMI: 17.4 UBW: 58.5kg Last BM: 11/29/21 (11/29/21 04:50) MNA: 8 Jag Score: 22 Diet: 11/29/21 Breakfast Carbohydrate Consistent Diet Diet Modifications: Carbohydrate level: Large (4 CHO) Bedtime snack: Yes Nutrition Percent Meal Consumed 100% 11/30/21 10:01 Percent Meal Consumed 100% 11/29/21 17:44 Percent Meal Consumed 100% 11/29/21 12:56 Percent Meal Consumed 100% 11/29/21 09:20 Labs: RBC 3.43 X10^6/uL (4.0-5.2) L 11/30/21 05:22 Hgb 9.3 g/dL (12.0-16.0) L 11/30/21 05:22 Hct 28.8 % (36-46) L 11/30/21 05:22 Creatinine 0.41 mg/dL (0.52-1.04) L 11/30/21 05:22 Hemoglobin A1c 11.3 % (4.0-6.0) H 11/28/21 15:27 Lactate 1.3 mmol/L (0.7-2.1) 11/28/21 15:27 Nutrition Diagnosis: Severe Acute on Chronic Protein Calorie Malnutrition r/t insulin rationing, previous covid PNA c taste changes and poor dentition aeb 26% unintentional weight loss in 4mo (severe), BMI 17.4 (severe), A1c jump 5 points from 6.8 to 11.3 secondary to insulin rationing, pt admitted c DKA and UTI. Interventions: 1. Recc ONS Glucerna BID to support pro and kcal intake. 2. Recc problem solving around barrier to communicating c PCP as pt to ED 4x in 2021. Monitoring/Evaluations: ONS tolerance, POs, DM f/u plan Electronically Signed by: Viviana Graves 11/30/21 11:47 Clinical Dietitian [address] [id number]
[2021-11-30] MEDS: INSULIN GLARGINE 100 UNIT/ML 3ML PEN 10 UNIT SUBCUT (12:45)
[2021-11-30] MEDS: CYCLOBENZAPRINE 10 MG TABLET 5 MG PO (12:53)
[2021-11-30 13:00] VITALS: BP 147/81; TEMP 37.1
[2021-11-30] MEDS: ACETAMINOPHEN 325 MG TABLET 650 MG PO (14:34)
--- NOTE | 2021-11-30 14:43 | PC.NURSE ---
Patient's left eye tender and blood shot, patient does not know what it is from and had concerns. Seen by Dr. Mehta prior to leaving. Discharge order received. Discharge instructions and home care handouts reviewed with patient, she states understanding and has no further questions or concerns. Patient states she will call to schedule follow up with PCP. Prescriptions given to patient to fill at pharmacy of choice. IV dc'd intact. Patient instructed to call her doctor with questions or concerns. Escorted out via wheelchair with all her belongings, to be discharged to home with her family.
== END 2021-11-30 14:47 | disposition home or self-care (01) | DRG 689 ==
LOC: ED 19:35 → AC 22:52
PROVIDERS: Internal Medicine; Admitting Provider Nurse Practitioner Family; Emergency Provider Emergency Medicine; PCP Physician Assistant; Referring Provider Emergency Medicine; Visit Provider Nurse Practitioner Family
DX: N39.0 Urinary tract infection, site not specified (principal); E43 Unspecified severe protein-calorie malnutrition; Z68.1 Body mass index [BMI] 19.9 or less, adult; E10.65 Type 1 diabetes mellitus with hyperglycemia; E10.42 Type 1 diabetes mellitus with diabetic polyneuropathy; M25.551 Pain in right hip; M79.7 Fibromyalgia; G89.29 Other chronic pain; F32.A Depression, unspecified; T38.3X6A Underdosing of insulin and oral hypoglycemic [antidiabetic] drugs, initial encounter; Z91.128 Patient's intentional underdosing of medication regimen for other reason; Z20.822 Contact with and (suspected) exposure to COVID-19; Z87.891 Personal history of nicotine dependence
CPT/HCPCS: 36415; 36600; 73502; 76770; 80048; 80053; 80320; 81001; 81025; 82009; 82805; 82962; 83036; 83605; 83735; 84100; 84145; 85025; 85027; 87040; 87077; 87086; 87186; 87635; 93005; 93010; 96361; 96365; 96366; 96372; 96375; 96376; 99284; 99291; C9803; G0378; J0696; J1650; J1815

== ENCOUNTER 2021-12-07 14:13 | Inpatient (IN) | payer MEDICAID, OTHER, SELFPAY ==
[2021-11-28 22:01] VITALS: BMI 17.4
[2021-12-07] VITALS (15 sets, daily range): BP systolic 100–118; BP diastolic 53–79; PULSE 88–112; RESP 14–24; TEMP 35.8–37.1; O2SAT 98–100; BMI 20.5
--- NOTE | 2021-12-07 14:28 | DI.RAD.S_ITS ---
PROCEDURE: XR CHEST 1V INDICATIONS: Possible stroke TECHNIQUE: One view of the chest was acquired. COMPARISON: [facility], CR, XR CHEST 1V, 10/08/2021, 20:55. FINDINGS: Surgical changes and devices: None. Lungs and pleura: Lungs are clear. No pleural effusions or pneumothorax. Mediastinum: Mediastinal contours appear normal. Heart size is normal. Bones and chest wall: No suspicious bony lesions. Overlying soft tissues appear unremarkable. IMPRESSION: No acute cardiopulmonary process demonstrated radiographically. Dictated by: Jaden Uriostegui M.D. on 12/07/2021 at 15:42 Approved by: Jaden Uriostegui M.D. on 12/07/2021 at 15:43
--- NOTE | 2021-12-07 14:32 | DI.CT.S_ITS ---
PROCEDURE: CT STROKE INDICATIONS: righ weakness TECHNIQUE: Noncontrast 4.5 mm thick angled axial sections acquired from the foramen magnum to the vertex, with coronal reformats. For radiation dose reduction, the following was used: automated exposure control, adjustment of mA and/or kV according to patient size. COMPARISON: [facility], CT, CT HEAD/BRAIN WO CON, 08/12/2021, 2:49. [facility], CT, CT STROKE, 08/11/2021, 17:08. FINDINGS: Image quality: Excellent. CSF spaces: Basal cisterns are patent. No extra-axial fluid collections. Ventricles are normal in size and shape. Brain: No midline shift. No intracranial masses or hemorrhage. [place]-white matter interface is normal. Low-attenuation foci are present in the right centrum semiovale, faintly visible on 08/08 01/07 and most suggestive of prior infarction. New focus of presumed lacunar ischemia is noted within the right external capsule. Skull and face: Calvarium and visualized facial bones are intact, without suspicious lesions. Sinuses: Visualized sinuses demonstrate right ethmoid air cell opacification. IMPRESSION: Foci of low attenuation most consistent with old ischemia. No acute hemorrhage. The above findings were discussed with Dr. Kirsten Saldivar on 12/07/2021 at 2:42 p.m. This study fulfills neurological imaging criteria for inclusion or exclusion of acute stroke therapies based on available published neurological imaging guidelines. Dictated by: Jessica Tovar M.D. on 12/07/2021 at 14:39 Approved by: Jessica Tovar M.D. on 12/07/2021 at 14:42
--- NOTE | 2021-12-07 14:39 | DI.CT.S_ITS ---
PROCEDURE: CT ANGIO HEAD AND NECK INDICATIONS: right weakness, no tpa TECHNIQUE: After the administration of intravenous contrast, 1 mm thick sections acquired from the aortic arch through the [place] of [place]. Post-contrast 4.5 mm thick sections then re-acquired from the foramen magnum to the vertex. 3-dimensional ioqhfns-nuupxuxsn-acwptxdlan (MIP) and/or volume rendering reformats were acquired of the central intracranial vasculature and neck separately. COMPARISON: [facility], CT, CT ANGIO HEAD AND NECK, 08/11/2021, 17:08. FINDINGS: Image quality: Excellent. BRAIN: CSF spaces: Ventricles are normal in size and shape. Basal cisterns are patent. No extra-axial fluid collections. Brain: No midline shift. No intracranial bleeds or masses. [place]-white matter interface appears intact. Low-attenuation foci within the right upper lobe including the centrum semiovale and ward radiata and extending to the right external capsule basal ganglia are again identified. Skull and face: Calvarium and facial bones appear intact, without suspicious lesions. Orbits appear normal. Sinuses: Sinuses and mastoids are clear. HEAD CT ANGIOGRAPHY: Anterior circulation: Intracranial internal carotid arteries are normal in size and flow. The flow within the paired anterior cerebral arteries is normal and symmetric. The flow within the middle cerebral arteries is normal and symmetric. The anterior communicating artery is seen. No aneurysms are seen. Posterior circulation: Visualized portions of the vertebral arteries demonstrate normal caliber, and join to form a normal appearing basilar artery. Flow within the posterior cerebral arteries is normal and symmetric. No aneurysms are seen. There is a left vertebral artery dominance. NECK CT ANGIOGRAPHY: The origins of the left and right common, internal and external carotid arteries demonstrate no areas of hemodynamically significant stenosis, vascular occlusion or aneurysmal dilation. It is noted that within the proximal portion of the right internal carotid artery on prior exam, there appeared to be significant narrowing possibly secondary to penetrating ulcer. This area appears normal on current exam. Recommend correlation to recent surgery or other intervention. Origins of the left and right vertebral arteries demonstrate no areas of hemodynamically significant stenosis, vascular occlusion or aneurysmal dilation. Aortic arch demonstrates conventional anatomy. Limited, visualized portions of the subclavian vasculature are unremarkable. IMPRESSION: Multiple intracranial low-attenuation foci as above suggestive of old ischemia. No areas of hemodynamically significant stenosis, vascular occlusion or aneurysmal dilation within the anterior circulation. No areas of hemodynamically significant stenosis, vascular occlusion or aneurysmal dilation within the neck vasculature. Any quantitative measurements of stenosis were performed using NASCET criteria. Dictated by: Jessica Tovar M.D. on 12/07/2021 at 17:09 Approved by: Jessica Tovar M.D. on 12/07/2021 at 17:14
--- NOTE | 2021-12-07 14:52 | ED_ITS ---
HPI - Neuro Symptoms/Deficit General Chief Complaint: Neuro Symptoms/Deficit Stated Complaint: CVA Time Seen by Provider: 12/07/21 14:23 Source: patient and EMS Mode of arrival: EMS Limitations: no limitations History of Present Illness HPI Narrative: This is a 46-year-old female comes in with complaint of right-sided weakness patient states that she 1st noticed this last night. Initially EMS states last known normal was 11:00 a.m. today her family but patient states she noticed change today. Patient is an insulin-dependent diabetic, she has had prior stroke. Patient does have a history of neuropathy. Glucose in the field was in the 80s. Patient describes decreased sensation and significant weakness on the right side without being able to lift her arm and significant difficulty lifting her right leg. She denies headache currently. No acute vision changes. She denies nausea or vomiting or other acute GI or urinary symptoms. Related Data Home Medications Medication Instructions Recorded Confirmed buspirone 10 mg tablet 2 tab PO TID 12/08/18 12/07/21 cyclobenzaprine 10 mg tablet 10 mg PO TID PRN 12/08/18 12/07/21 gabapentin 600 mg tablet 1.5 tab PO TID 12/08/18 12/07/21 insulin glargine 100 unit/mL (3 20 unit SUBCUT DAILY 12/07/21 12/07/21 mL) subcutaneous pen Previous Rx's Medication Instructions Recorded insulin aspart U-100 100 unit/mL 0 unit (0 mL) SUB-Q AC #3 unit 02/12/18 (3 mL) subcutaneous pen (Novolog Flexpen U-100 Insulin aspart) acetaminophen 325 mg tablet 975 mg PO TID PRN #30 tab 12/12/18 ibuprofen 600 mg tablet 600 mg PO Q6H PRN #30 tab 03/21/20 blood sugar diagnostic (Test N'Go #50 ea 11/30/21 Test) Allergies Allergy/AdvReac Type Severity Reaction Status Date / Time amitriptyline Allergy Intermediate Verified 10/08/21 19:53 sulfasalazine [SULFASALAZINE] Allergy Mild PANCREATITI Verified 10/08/21 19:53 S trazodone AdvReac Intermediate HEART Verified 10/08/21 19:53 PALPITATIONS Review of Systems Review of Systems ROS Unobtainable: All systems reviewed & are unremarkable except as noted in HPI and below Patient History Medical History Alcohol intoxication Closed hip fracture COVID DKA (diabetic ketoacidoses) DKA (diabetic ketoacidosis) Fibromyalgia Gastroesophageal reflux disease Insulin dependent diabetes mellitus Lupus Osteoporosis Surgical History History of hip surgery Family History Mother Diabetes mellitus Congestive heart failure Pancreatic cancer Father Diabetes mellitus Brother Diabetes mellitus Pancreatitis Sister Drug overdose Social History household members: family Smoking Status: Former smoker alcohol intake: current Smoking Status: Former smoker alcohol intake frequency: holidays/special occasions only Substance Use Type: does not use Exam Narrative Exam Narrative: GEN: well nourished, well appearing female, alert and oriented x 3, patient appears to be in mild distress. HEENT: Atraumatic, pupils are equal round reactive to light, extraocular movements are intact, patient has slight subconjunctival hemorrhage left. Nares are clear, Throat is clear without any exudates, erythema, tonsillar enlargem ent or uvular deviation, facial droop HEART: Regular rate and rhythm without murmur, clicks, rubs. Pulses are equal in upper and lower extremities LUNGS:Lungs clear to auscultation, no wheezes, rales, crackles, chest moves symmetrically ABD:bowel sounds normal, soft, non-tender, no guarding, rebound, rigidity, no masses noted, no hepatosplenomegaly :No CVA tenderness MSCL: Non-tender, no muscle atrophy, patient significant difficulty lifting right arm off the bed or right leg she has some movement at the hand, she has 5/5 strength of left upper extremity and lower extremity. NEURO:CN 2-12 intact, patient describes decreased sensation of the right cheek arm and leg. She has ataxia on ehyuxc-qkon-[id number] and heel-connor using her right heel on her left leg Initial Vital Signs Initial Vital Signs: Vital Signs Pulse Rate 90 12/07/21 14:17 Respiratory Rate 21 12/07/21 14:17 Pulse Oximetry 100 12/07/21 14:17 Scores GCS Jada coma scale eye opening: Spontaneous Jada coma scale verbal response: Orientated [place] coma scale motor response: Obey commands [place] coma scale total score: 15 NIH Stroke Scale Level of Conciousness: Alert, keenly responsive Ask month/age: Answers both questions correctly. Open/close eyes, close hand: Performs both tasks correctly Best gaze horizontal: Normal Visual baxter: No visual loss Facial palsy: Normal symetrical movement Left arm drift: No drift for full 10 sec Right arm drift: Some effort against gravity, cannot maintain, drifts down to bed Left leg drift: No drift for full 5 sec Right leg drift: No effort against gravity Limb ataxia: Present in two limbs Sensory on face/arms/legs: Mild to moderate sensory loss, can tell touch Best language: No aphasia, normal Dysarthria: Normal Extinction or inattention: No abnormality Total NIH Stroke scale score: 8 Course Orders Ordered: ED Orders 12/07/21 14:28 XR chest 1V Stat EKG-12 Lead Stat 12/07/21 14:32 CT Stroke Stat 12/07/21 14:39 CT angio head and neck Stat 12/07/21 14:40 Complete Blood Count AUTO DIFF Stat Comprehensive Metabolic Panel Stat Partial Thromboplastin Time Stat Prothrombin Time INR Stat Troponin & CK Cardiac Panel Stat 12/07/21 15:45 COVID19 -Nasal swab/Pre-Proc Stat Urinalysis and Microscopic Stat Urine Culture Stat Urine Drug Screen, Rapid Stat Acetaminophen (Acetaminophen 325 Mg Tablet) 975 mg PO Q8HR PRN PRN Reason: pain Last Admin: 12/07/21 19:51 Dose: 975 mg Documented by: MXMALACHIITH Enoxaparin Sodium (Enoxaparin 40 Mg/0.4 Ml Syringe) 40 mg SUBCUT DAILY [facility] Ceftriaxone Sodium 1,000 mg/ (Sodium Chloride) 100 mls @ 200 mls/hr IV Q24H [facility] Last Admin: 12/07/21 19:52 Dose: 200 mls/hr Documented by: MXSMITH Sodium Chloride (Normal Saline 0.9%) 250 mls @ 21 mls/hr IV Q24H PRN PRN Reason: Flush Naloxone HCl (Naloxone 0.4 Mg/Ml Vial) 0.2 mg IV Q2MIN PRN PRN Reason: Opiate Reversal Ondansetron HCl (Ondansetron 4 Mg/2 Ml Inj) 4 mg IV Q8HR PRN PRN Reason: Nausea And Vomiting Sodium Chloride (Sodium Chloride 0.9% Flush) 10 ml IV PRN PRN PRN Reason: Flush Discontinued Medications Acetaminophen (Acetaminophen 325 Mg Tablet) 975 mg PO NOW ONE Stop: 12/07/21 15:43 Last Admin: 12/07/21 15:59 Dose: 975 mg Documented by: LAM Aspirin (Aspirin 81 Mg Chew Tab) 324 mg PO NOW ONE Stop: 12/07/21 14:59 Last Admin: 12/07/21 15:48 Dose: Not Given Documented by: ETHAN Aspirin (Aspirin Ec 81 Mg Tablet) 324 mg PO NOW ONE Stop: 12/07/21 15:42 Last Admin: 12/07/21 15:59 Dose: 324 mg Documented by: LAM Reevaluation(s) Reevaluation #1: Patient was re-evaluated after initial evaluation in the department. She has had improvement she still weak on her right side still has sensation change but can not move her arm much more than she could before. Reevaluation #2: Patient has continued improvement. We discussed her head CT was negative, CT angiography does not show acute change. She was given aspirin here today. Plan for admission for MRI. She was low on her glucose here at 40-50 but states she did not eat or drink anything today she had missed breakfast and then came to the emergency department. She had a glucose of 80 in the field suspect that this was true stroke and not hypoglycemic event. She was able to tolerate all renal apple juice and applesauce and had improvement up to 90 and continues to be stable on her glucose. Consultations Consultation #1: Dr. Orozco, hospitalist. Accepts for observation for stroke plan for MRI. Vital Signs Vital signs: Vital Signs - 8 hr 12/07/21 14:17 12/07/21 14:18 12/07/21 14:20 Temperature 96.5 F L Pulse Rate 90 90 90 Respiratory Rate 21 Blood Pressure 115/79 115/79 Pulse Oximetry 100 100 100 12/07/21 14:39 12/07/21 14:45 12/07/21 15:08 Temperature Pulse Rate 90 89 88 Respiratory Rate 19 20 24 Blood Pressure 115/74 Pulse Oximetry 100 98 12/07/21 15:30 12/07/21 16:00 12/07/21 16:30 Temperature Pulse Rate 90 90 94 H Respiratory Rate 22 Blood Pressure Pulse Oximetry 100 100 12/07/21 16:49 12/07/21 17:00 12/07/21 17:30 Temperature Pulse Rate 92 H 92 H 93 H Respiratory Rate 24 14 18 Blood Pressure 100/66 103/71 118/68 Pulse Oximetry 100 100 98 12/07/21 18:00 Temperature Pulse Rate 96 H Respiratory Rate 16 Blood Pressure 107/68 Pulse Oximetry 100 MDM - Neuro Symptoms/Deficit Lab Data Result diagrams: 12/07/21 14:40 12/07/21 14:40 Labs: Lab Results 12/07/21 12/07/21 12/07/21 Range/Units 14:40 14:40 14:40 WBC 7.1 (4.5-11.0) X10^3/uL RBC 3.74 L (4.0-5.2) X10^6/uL Hgb 10.2 L (12.0-16.0) g/dL Hct 32.3 L (36-46) % MCV 86.2 (80-100) fL MCH 27.3 (26-34) PG MCHC 31.6 (30-36) % RDW 28.9 H (11.6-14.8) % Plt Count 578 H (150-400) X10^3/uL Neut % (Auto) 74.7 (50-75) % Lymph % (Auto) 17.1 L (25-40) % [place] % (Auto) 6.8 (3-14) % Eos % (Auto) 0.1 L (2-4) % Baso % (Auto) 1.3 (0-2) % Neut # (Auto) 5300 (3576-7939) /uL Lymph # (Auto) 1200 (0936-8165) /uL [place] # (Auto) 500 (0-900) /uL Eos # (Auto) 0 (0-450) /uL Baso # (Auto) 100 (0-100) /uL RBC Morphology See below Anisocytosis 2+ H Microcytosis 2+ H PT 8.4 L (10.1-12.7) SECONDS INR 0.8 L (0.9-1.3) APTT 27 D (26.4-36.2) SECONDS Sodium 138 (137-145) mmol/L Potassium 4.6 (3.4-5.1) mmol/L Chloride 115 H (98-107) mmol/L Carbon Dioxide 19 L (22-32) mmol/L BUN 11 (7-17) mg/dL Creatinine 0.28 L (0.52-1.04) mg/dL Estimated GFR > 60.0 (>60) mL/min BUN/Creatinine Ratio 39.3 H (6-22) Glucose 51 L D (70-100) mg/dL Calcium 8.4 (8.4-10.2) mg/dL Total Bilirubin 0.4 (0.2-1.3) mg/dL AST 60 H (14-36) IU/L ALT 23 (<35) IU/L Alkaline Phosphatase 71 D (38-126) U/L Total Creatine Kinase 34 (30-135) U/L CK-MB (CK-2) TNP CK-MB (CK-2) Rel Index TNP Troponin I < 0.012 (0.01-0.034) ng/mL Total Protein 6.6 (6.3-8.2) g/dL Albumin 3.5 (3.5-5.0) g/dL Globulin 3.1 (1.7-4.1) g/dL Albumin/Globulin Ratio 1.1 (1.0-2.8) Urine Color Urine Appearance Urine pH (4.5-8.0) Ur Specific [place] (1.000-1.035) Urine Protein (Negative) Urine Glucose (UA) (Negative) g/dL Urine Ketones (NEGATIVE) Urine Occult Blood (Negative) Urine Nitrate (Negative) Urine Bilirubin (NEGATIVE) Urine Urobilinogen (0.2) E.U./dL Ur Leukocyte Esterase (NEGATIVE) Urine RBC (0-5/HPF) Urine WBC (0-5/HPF) Ur Squamous Epith Cells (0-5/HPF) Urine Bacteria (None) Ur Culture Indicated? U Opiates 300ng/mL cut (Negative) Ur Oxycodone Screen (Negative) Urine Methadone Screen (Negative) Ur Barbiturates Screen (Negative) U Tricyclic Antidepress (Negative) Ur Phencyclidine Scrn (Negative) Ur Amphetamines Screen (Negative) U Methamphetamines Scrn (Negative) Ur MDMA Scrn (Ecstasy) (Negative) U Benzodiazepines Scrn (Negative) Urine Cocaine Screen (Negative) U Marijuana (THC) Screen (Negative) SARS-CoV-2 (PCR) (Negative) 12/07/21 12/07/21 12/07/21 Range/Units 15:45 15:45 15:45 WBC (4.5-11.0) X10^3/uL RBC (4.0-5.2) X10^6/uL Hgb (12.0-16.0) g/dL Hct (36-46) % MCV (80-100) fL MCH (26-34) PG MCHC (30-36) % RDW (11.6-14.8) % Plt Count (150-400) X10^3/uL Neut % (Auto) (50-75) % Lymph % (Auto) (25-40) % [place] % (Auto) (3-14) % Eos % (Auto) (2-4) % Baso % (Auto) (0-2) % Neut # (Auto) (3613-6055) /uL Lymph # (Auto) (5037-0051) /uL [place] # (Auto) (0-900) /uL Eos # (Auto) (0-450) /uL Baso # (Auto) (0-100) /uL RBC Morphology Anisocytosis Microcytosis PT (10.1-12.7) SECONDS INR (0.9-1.3) APTT (26.4-36.2) SECONDS Sodium (137-145) mmol/L Potassium (3.4-5.1) mmol/L Chloride (98-107) mmol/L Carbon Dioxide (22-32) mmol/L BUN (7-17) mg/dL Creatinine (0.52-1.04) mg/dL Estimated GFR (>60) mL/min BUN/Creatinine Ratio (6-22) Glucose (70-100) mg/dL Calcium (8.4-10.2) mg/dL Total Bilirubin (0.2-1.3) mg/dL AST (14-36) IU/L ALT (<35) IU/L Alkaline Phosphatase (38-126) U/L Total Creatine Kinase (30-135) U/L CK-MB (CK-2) CK-MB (CK-2) Rel Index Troponin I (0.01-0.034) ng/mL Total Protein (6.3-8.2) g/dL Albumin (3.5-5.0) g/dL Globulin (1.7-4.1) g/dL Albumin/Globulin Ratio (1.0-2.8) Urine Color Yellow Urine Appearance Cloudy Urine pH 7.0 (4.5-8.0) Ur Specific [place] 1.015 (1.000-1.035) Urine Protein 2+ H (Negative) Urine Glucose (UA) Trace H (Negative) g/dL Urine Ketones Negative (NEGATIVE) Urine Occult Blood 3+ H (Negative) Urine Nitrate Negative (Negative) Urine Bilirubin Negative (NEGATIVE) Urine Urobilinogen 0.2 (0.2) E.U./dL Ur Leukocyte Esterase 2+ H (NEGATIVE) Urine RBC >100/hpf H (0-5/HPF) Urine WBC >100/hpf H (0-5/HPF) Ur Squamous Epith Cells 1-5 /hpf (0-5/HPF) Urine Bacteria Moderate (10-30) H (None) Ur Culture Indicated? Specimen cultured U Opiates 300ng/mL cut Negative (Negative) Ur Oxycodone Screen Negative (Negative) Urine Methadone Screen Negative (Negative) Ur Barbiturates Screen Negative (Negative) U Tricyclic Antidepress Negative (Negative) Ur Phencyclidine Scrn Negative (Negative) Ur Amphetamines Screen Negative (Negative) U Methamphetamines Scrn Negative (Negative) Ur MDMA Scrn (Ecstasy) Negative (Negative) U Benzodiazepines Scrn Negative (Negative) Urine Cocaine Screen Negative (Negative) U Marijuana (THC) Screen Negative (Negative) SARS-CoV-2 (PCR) Negative (Negative) Point of Care Testing Glucose POC [address] scan - head: Radiologist's Impression: prelim Dr. Tovar-negative for acute change but patient has new ischemia comprared to prior imaging. CTA - brain/neck: Radiologist's Impression: Launch?[address] [address] [address] Scan Report Signed Patient: Valerie Garnica I MR#: [id number] : 1975 Acct:[id number] Age/Sex: 46 / F Date of Service: 12/07/21 Loc: ED Accession Number: [id number] ?? Procedure: CT angio head and neck Ordering Provider: Kirsten Saldivar D.O. PROCEDURE:? CT ANGIO HEAD AND NECK ? INDICATIONS:? right weakness, no tpa ? TECHNIQUE:? ? After the administration of intravenous contrast, 1 mm thick sections acquired from the aortic arch through the [place] of [place].? Post-contrast 4.5 mm thick sections then re-acquired from the foramen magnum to the vertex.? 3-dimensional bhstsll-jwteusmqb-vbjrllfoml (MIP) and/or volume rendering reformats were acquired of the central intracranial vasculature and neck separately. ? COMPARISON:? [facility], CT, CT ANGIO HEAD AND NECK, 08/11/2021, 17:08. ? FINDINGS:? Image quality:? Excellent.? ? BRAIN:? CSF spaces:? Ventricles are normal in size and shape.? Basal cisterns are patent.? No extra-axial fluid collections.? ? Brain:? No midline shift.? No intracranial bleeds or masses.? Mackey-white matter interface appears intact.? Low-attenuation foci within the right upper lobe including the centrum semiovale and ward radiata and extending to the right external capsule basal ganglia are again identified. ? Skull and face:? Calvarium and facial bones appear intact, without suspicious lesions.? Orbits appear normal.? ? Sinuses:? Sinuses and mastoids are clear.? ? HEAD CT ANGIOGRAPHY:? Anterior circulation:? Intracranial internal carotid arteries are normal in size and flow.? The flow within the paired anterior cerebral arteries is normal and symmetric.? The flow within the middle cerebral arteries is normal and symmetric.? The anterior communicating artery is seen.? No aneurysms are seen.? ? Posterior circulation:? Visualized portions of the vertebral arteries demonstrate normal caliber, and join to form a normal appearing basilar artery.? Flow within the posterior cerebral arteries is normal and symmetric.? No aneurysms are seen.? There is a left vertebral artery dominance. ? NECK CT ANGIOGRAPHY:? The origins of the left and right common, internal and external carotid arteries demonstrate no areas of hemodynamically significant stenosis, vascular occlusion or aneurysmal dilation.? It is noted that within the proximal portion of the right internal carotid artery on prior exam, there appeared to be significant narrowing possibly secondary to penetrating ulcer.? This area appears normal on current exam.? Recommend correlation to recent surgery or other intervention.? Origins of the left and right vertebral arteries demonstrate no areas of hemodynamically significant stenosis, vascular occlusion or aneurysmal dilation. Aortic arch demonstrates conventional anatomy. Limited, visualized portions of the subclavian vasculature are unremarkable. ? ? IMPRESSION:? ? Multiple intracranial low-attenuation foci as above suggestive of old ischemia. ? No areas of hemodynamically significant stenosis, vascular occlusion or aneurysmal dilation within the anterior circulation. ? No areas of hemodynamically significant stenosis, vascular occlusion or aneurysmal dilation within the neck vasculature. ? Any quantitative measurements of stenosis were performed using NASCET criteria.? ? ? Dictated by: Jessica Tovar M.D. on 12/07/2021 at 17:09 ? ? Approved by: Jessica Tovar M.D. on 12/07/2021 at 17:14?? Chest x-ray: Radiologist's Impression: [address] [address] XRay Report Signed Patient: Valerie Garnica I MR#: [id number] : 1975 Acct:[id number] Age/Sex: 46 / F Date of Service: 12/07/21 Loc: ED Accession Number: [id number] ?? Procedure: XR chest 1V Ordering Provider: Kirsten Saldivar D.O. PROCEDURE:? XR CHEST 1V ? INDICATIONS:? Possible stroke ? TECHNIQUE:? One view of the chest was acquired.? ? COMPARISON:? [facility], CR, XR CHEST 1V, 10/08/2021, 20:55. ? FINDINGS:? ? Surgical changes and devices:? None.? ? Lungs and pleura:? Lungs are clear.? No pleural effusions or pneumothorax.? ? Mediastinum:? Mediastinal contours appear normal.? Heart size is normal.? ? Bones and chest wall:? No suspicious bony lesions.? Overlying soft tissues appear unremarkable.? ? IMPRESSION:? No acute cardiopulmonary process demonstrated radiographically. ? ? Dictated by: Jaden Uriostegui M.D. on 12/07/2021 at 15:42 ? ? Approved by: Jaden Uriostegui M.D. on 12/07/2021 at 15:43?? ECG Data Attestation: I personally reviewed and interpreted this ECG as follows: Prior ECG tracings: available for review Interpretation: Sinus rhythm, rate of 90, WA 138 QRS 80 QTC [address]. No acute ST changes appreciated. Prolonged QT. Prior from 11/28/21. MDM Narrative Medical decision making narrative: This is a 46-year-old female with reported prior stroke, on insulin him but diabetic who is high risk for stroke who had onset last night cording the patient taking her for outside of tPA window. Patient had improvement of her symptoms in the department. Heparin is initiated. Patient does not have T so she is unable to the aspirin so was given aspirin to swallow. Patient was hypoglycemic during her stay improved with very oral glucose in the form of applesauce and apple juice and was persistently above 90. Head CT CT angio does not show clear changes but there was question about noon infarct and a prior area of possible ischemia. Plan for observation for stroke with MRI ordered and patient accepted by Dr. Orozco. Stroke Core Measures Exclusion Criteria TPA in CVA: Symptom Onset >3 or 4.5 Hours Discharge Plan Departure Patient Disposition: Admitted as Observation Clinical Impression: Acute CVA (cerebrovascular accident) Admit Date/Time: 12/07/21 18:10 Admit Provider: Norman Orozco
[2021-12-07 15:06] LABS: Add Manual Diff / Slide Review NO; Basophils Absolute Auto 100 /uL (0-100); Basophils Percent Auto 1.3 % (0-2); Eosinophils Absolute Auto 0 /uL (0-450); Eosinophils Percent Auto 0.1 % (2-4); Hematocrit 32.3 % (36-46); Hemoglobin 10.2 g/dL (12.0-16.0); Lymphocytes Absolute Auto 1200 /uL (1100-4500); Lymphocytes Percent Auto 17.1 % (25-40); Mean Corpuscular HGB Conc 31.6 % (30-36); Mean Corpuscular Hemoglobin 27.3 PG (26-34); Mean Corpuscular Volume 86.2 fL (80-100); Monocytes Absolute Auto 500 /uL (0-900); Monocytes Percent Auto 6.8 % (3-14); Neutrophils Absolute Auto 5300 /uL (1500-7000); Neutrophils Percent Auto 74.7 % (50-75); Platelet Count 578 X10^3/uL (150-400); Red Blood Cell Count 3.74 X10^6/uL (4.0-5.2); Red Cell Distribution Width 28.9 % (11.6-14.8); White Blood Cell Count 7.1 X10^3/uL (4.5-11.0)
[2021-12-07 15:08] LABS: INR 0.8 (0.9-1.3); Prothrombin Time 8.4 SECONDS (10.1-12.7)
[2021-12-07 15:11] LABS: PTT Partial Thromboplastin Tim 27 SECONDS (26.4-36.2)
[2021-12-07 15:14] LABS: Alanine Aminotransferase 23 IU/L (<35); Albumin 3.5 g/dL (3.5-5.0); Albumin Globulin Ratio 1.1 (1.0-2.8); Alkaline Phosphatase 71 U/L (38-126); BUN Creatinine Ratio 39.3 (6-22); Bilirubin Total 0.4 mg/dL (0.2-1.3); Blood Urea Nitrogen 11 mg/dL (7-17); Calcium 8.4 mg/dL (8.4-10.2); Carbon Dioxide 19 mmol/L (22-32); Chloride 115 mmol/L (98-107); Creatine Kinase 34 U/L (30-135); Estimated Glomerular Filt Rate > 60.0 mL/min (>60); Globulin 3.1 g/dL (1.7-4.1); Glucose 51 mg/dL (70-100); Sodium 138 mmol/L (137-145); Total Protein 6.6 g/dL (6.3-8.2)
[2021-12-07 15:18] LABS: HEMOLYSIS 56 (0-50)
[2021-12-07 15:19] LABS: Aspartate Aminotransferase 60 IU/L (14-36); Potassium 4.6 mmol/L (3.4-5.1)
[2021-12-07 15:26] LABS: Troponin I < 0.012 ng/mL (0.01-0.034)
[2021-12-07] MEDS: ACETAMINOPHEN 325 MG TABLET 975 MG PO ×2 (15:59→19:51)
[2021-12-07] MEDS: ASPIRIN EC 81 MG TABLET 324 MG PO (15:59)
[2021-12-07 16:02] LABS: Anisocytosis 2+; Microcytosis 2+
[2021-12-07 16:10] LABS: COVID19 -Nasal RAPID Negative (Negative)
[2021-12-07 16:14] LABS: Appearance Urine UA CLOUDY; Bilirubin Urine UA NEGATIVE (NEGATIVE); Color Urine UA YELLOW; Glucose Urine UA TRACE g/dL (Negative); Ketones Urine UA NEGATIVE (NEGATIVE); Leukocyte Esterase Urine UA 2+ (NEGATIVE); Nitrite Urine UA NEGATIVE (Negative); Occult Blood Urine UA 3+ (Negative); Protein Urine UA 2+ (Negative); Specific Gravity Urine UA 1.015 (1.000-1.035); Urobilinogen Urine UA 0.2 E.U./dL (0.2)
[2021-12-07 16:18] LABS: UR Morphine/Opiate cutoff 300 Negative (Negative); Ur Creatinine Normal (Normal); Ur Specific Gravity Normal (Normal); Urine Amphetamines Negative (Negative); Urine Barbiturates Negative (Negative); Urine Benzodiazepines Negative (Negative); Urine Cocaine Negative (Negative); Urine MDMA Negative (Negative); Urine Methadone Negative (Negative); Urine Methamphetamines Negative (Negative); Urine Oxycodone Negative (Negative); Urine Phencyclidine Negative (Negative); Urine Tetrahydrocannabinol Negative (Negative); Urine Tricyclic Antidepressant Negative (Negative); Urine pH Normal (Normal)
[2021-12-07 16:24] LABS: Bacteria Urine Moderate (10-30); Culture Indicated Urine Specimen Cultured; RBC Urine >100/HPF (0-5/HPF); Squamous Epithelial Cell Urine 1-5 /HPF (0-5/HPF); WBC Urine >100/HPF (0-5/HPF)
--- NOTE | 2021-12-07 18:28 | P.HP_ITS ---
History of Present Illness History of Present Illness Date Patient Seen: 12/07/21 Time Patient Seen: 18:28 Chief complaint: CVA Narrative: This is a 46-year-old female with a past medical history of type 1 diabetes, recent admission for CVA and COVID pneumonia (07/2021-09/2021 including acute rehab at [facility]), lupus, fibromyalgia who presented to the emergency room today after waking up not being able to move her right side this morning. Patient was unable to take any of her medications or check her blood sugar at the time because she was unable to move her right side. Her last known normal was midnight when she went to sleep. She reports her prior stroke symptoms were on the left-hand side. She further reported right-sided numbness, slurred speech, and a facial droop. A code stroke was called in the emergency room, tPA was not given given time of presentation. The patient's symptoms have subsequently improved and by the time of my examination in the ER her right- sided strength had returned though she still continues to report mild facial asymmetry, difficulty with speech, and numbness of her right side and face. She does endorse continued dysuria but no abdominal pain, nausea, vomiting, fever, chills, cough, shortness of breath. She did not eat breakfast this morning nor did she take her insulin. In the emergency room, the patient was borderline tachycardic with rates in mid to upper 90s, but the remainder of her vital signs were unremarkable. Her blood pressures are mildly soft but within normal limits. Initial laboratory evaluation was notable for a fingerstick glucose into the 40s, lab testing showed a glucose of 51. Carbon dioxide level in her basic chemistry was also mildly low at 19, she had a mild elevation in her AST to 60, but the remainder of her chemistry panel was unremarkable. Coagulation studies were unremarkable. CBC showed no leukocytosis and a stable chronic anemia, and chronic thr ombocytosis which is improved from prior lab values. Urinalysis appeared to show an active infection with 3+ blood, 2+ leuk esterase, greater than 100 wbc's and rbc's with minimal squamous cells. Urine specimen was sent for culture. Urine drug screen was negative. COVID-[address] angiogram of her head and neck as well as a CT head without contrast showed no acute infarcts, thrombosis, or intracranial hemorrhage. Patient was admitted for further management of probable new acute CVA. Patient History Medical History Alcohol intoxication Closed hip fracture COVID DKA (diabetic ketoacidoses) DKA (diabetic ketoacidosis) Fibromyalgia Gastroesophageal reflux disease Insulin dependent diabetes mellitus Lupus Osteoporosis Surgical History History of hip surgery Family & Social History Family History Mother Diabetes mellitus Congestive heart failure Pancreatic cancer Father Diabetes mellitus Brother Diabetes mellitus Pancreatitis Sister Drug overdose Social History: household members family Safety & Behavioral: Feels Safe in Current Yes Environment Been Physically Hurt or No Threatened By a Person Tobacco & Substance use: Tobacco type cigarettes Smoking Status Former smoker alcohol intake current alcohol intake frequency holiday/special occasion Substance Use Type does not use Meds Home Medications and Allergies Home Medications Medication Instructions Recorded Confirmed Type insulin aspart U-100 100 unit/mL 0 unit (0 mL) SUB-Q AC #3 unit 02/12/18 11/28/21 Rx (3 mL) subcutaneous pen (Novolog Flexpen U-100 Insulin aspart) buspirone 10 mg tablet 2 tab PO TID 12/08/18 11/28/21 History cyclobenzaprine 10 mg tablet 10 mg PO TID PRN 12/08/18 11/28/21 History gabapentin 600 mg tablet 1.5 tab PO TID 12/08/18 11/28/21 History acetaminophen 325 mg tablet 975 mg PO TID PRN #30 tab 12/12/18 11/28/21 Rx ibuprofen 600 mg tablet 600 mg PO Q6H PRN #30 tab 03/21/20 11/28/21 Rx ondansetron 4 mg disintegrating 4 mg PO TID-QID PRN #10 tab 10/20/21 11/28/21 Rx tablet blood sugar diagnostic (Test N'Go #50 ea 11/30/21 Rx Test) insulin glargine 100 unit/mL (3 30 unit (0.3 mL) SUBCUT QPM #15 ml 11/30/21 Rx mL) subcutaneous pen levofloxacin 500 mg tablet 500 mg PO DAILY #2 tab 11/30/21 Rx Allergies Allergy/AdvReac Type Severity Reaction Status Date / Time amitriptyline Allergy Intermediate Verified 10/08/21 19:53 sulfasalazine [SULFASALAZINE] Allergy Mild PANCREATITI Verified 10/08/21 19:53 S trazodone AdvReac Intermediate HEART Verified 10/08/21 19:53 PALPITATIONS Review of Systems Review of Systems Narrative: All other systems reviewed with the patient and are negative unless otherwise stated. Exam Vital Signs (past 8 hours): - 12/07/21 14:17 12/07/21 14:18 12/07/21 14:20 Temperature 96.5 F L Pulse Rate 90 90 90 Respiratory Rate 21 Blood Pressure 115/79 115/79 Pulse Oximetry 100 100 100 12/07/21 14:39 12/07/21 14:45 12/07/21 15:08 Temperature Pulse Rate 90 89 88 Respiratory Rate 19 20 24 Blood Pressure 115/74 Pulse Oximetry 100 98 12/07/21 15:30 12/07/21 16:00 12/07/21 16:30 Temperature Pulse Rate 90 90 94 H Respiratory Rate 22 Blood Pressure Pulse Oximetry 100 100 12/07/21 16:49 12/07/21 17:00 12/07/21 17:30 Temperature Pulse Rate 92 H 92 H 93 H Respiratory Rate 24 14 18 Blood Pressure 100/66 103/71 118/68 Pulse Oximetry 100 100 98 12/07/21 18:00 Temperature Pulse Rate 96 H Respiratory Rate 16 Blood Pressure 107/68 Pulse Oximetry 100 Oxygen Delivery Method Room Air Narrative Exam Narrative: General:? Patient is a chronically ill-appearing female, with blanket around her head but no obvious acute distress. HEENT:? Normocephalic, atraumatic, extraocular muscles intact, oral pharynx is clear and mucous membranes are moist. Neck: supple and symmetric, trachea is midline, no cervical adenopathy. Negative for JVD Chest:? Normal AP diameter and contour without kyphoscoliosis, no tachypnea, equal chest rise bilaterally. Lungs:? CTA b/l no wheezing rhonchi or rales. Cardio:?RRR no m/r/g. Abdomen: S NT ND. No CVA tenderness. Musculoskeletal:? Muscle strength and tone are equal within normal limits, no deformity. Extremities: No edema or joint effusions. No cyanosis or clubbing. Skin:? Pale,? Warm to touch,dry and intact without rashes, ulcerations or petechiae.? Neuro:? Alert and orientated x3,?slight lethargy and mildly impaired memory recall. strength is slightly weaker on the R but still +5/5, heel to connor slow but no obvious deficits. Reported facial numbness, R numbness of UE and LE, and slight facial asymmetry with dysarthria. Psych:? Patient has a mildly disheveled appearance, appropriate affect. Objective ECG Impression: Normal sinus rhythm Prolonged QT Interpreted by me. Labs Result Diagrams: 12/07/21 14:40 12/07/21 14:40 Labs: Laboratory Results - last 24 hr 12/07/21 12/07/21 12/07/21 14:40 14:40 14:40 WBC 7.1 RBC 3.74 L Hgb 10.2 L Hct 32.3 L MCV 86.2 MCH 27.3 MCHC 31.6 RDW 28.9 H Plt Count 578 H Neut % (Auto) 74.7 Lymph % (Auto) 17.1 L Gladwin % (Auto) 6.8 Eos % (Auto) 0.1 L Baso % (Auto) 1.3 Neut # (Auto) 5300 Lymph # (Auto) 1200 Gladwin # (Auto) 500 Eos # (Auto) 0 Baso # (Auto) 100 RBC Morphology See below Anisocytosis 2+ H Microcytosis 2+ H PT 8.4 L INR 0.8 L APTT 27 D Sodium 138 Potassium 4.6 Chloride 115 H Carbon Dioxide 19 L BUN 11 Creatinine 0.28 L Estimated GFR > 60.0 BUN/Creatinine Ratio 39.3 H Glucose 51 L D Calcium 8.4 Total Bilirubin 0.4 AST 60 H ALT 23 Alkaline Phosphatase 71 D Total Creatine Kinase 34 CK-MB (CK-2) TNP CK-MB (CK-2) Rel Index TNP Troponin I < 0.012 Total Protein 6.6 Albumin 3.5 Globulin 3.1 Albumin/Globulin Ratio 1.1 Urine Color Urine Appearance Urine pH Ur Specific Telferner Urine Protein Urine Glucose (UA) Urine Ketones Urine Occult Blood Urine Nitrate Urine Bilirubin Urine Urobilinogen Ur Leukocyte Esterase Urine RBC Urine WBC Ur Squamous Epith Cells Urine Bacteria Ur Culture Indicated? U Opiates 300ng/mL cut Ur Oxycodone Screen Urine Methadone Screen Ur Barbiturates Screen U Tricyclic Antidepress Ur Phencyclidine Scrn Ur Amphetamines Screen U Methamphetamines Scrn Ur MDMA Scrn (Ecstasy) U Benzodiazepines Scrn Urine Cocaine Screen U Marijuana (THC) Screen SARS-CoV-2 (PCR) 12/07/21 12/07/21 12/07/21 15:45 15:45 15:45 WBC RBC Hgb Hct MCV MCH MCHC RDW Plt Count Neut % (Auto) Lymph % (Auto) Gladwin % (Auto) Eos % (Auto) Baso % (Auto) Neut # (Auto) Lymph # (Auto) Gladwin # (Auto) Eos # (Auto) Baso # (Auto) RBC Morphology Anisocytosis Microcytosis PT INR APTT Sodium Potassium Chloride Carbon Dioxide BUN Creatinine Estimated GFR BUN/Creatinine Ratio Glucose Calcium Total Bilirubin AST ALT Alkaline Phosphatase Total Creatine Kinase CK-MB (CK-2) CK-MB (CK-2) Rel Index Troponin I Total Protein Albumin Globulin Albumin/Globulin Ratio Urine Color Yellow Urine Appearance Cloudy Urine pH 7.0 Ur Specific Telferner 1.015 Urine Protein 2+ H Urine Glucose (UA) Trace H Urine Ketones Negative Urine Occult Blood 3+ H Urine Nitrate Negative Urine Bilirubin Negative Urine Urobilinogen 0.2 Ur Leukocyte Esterase 2+ H Urine RBC >100/hpf H Urine WBC >100/hpf H Ur Squamous Epith Cells 1-5 /hpf Urine Bacteria Moderate (10-30) H Ur Culture Indicated? Specimen cultured U Opiates 300ng/mL cut Negative Ur Oxycodone Screen Negative Urine Methadone Screen Negative Ur Barbiturates Screen Negative U Tricyclic Antidepress Negative Ur Phencyclidine Scrn Negative Ur Amphetamines Screen Negative U Methamphetamines Scrn Negative Ur MDMA Scrn (Ecstasy) Negative U Benzodiazepines Scrn Negative Urine Cocaine Screen Negative U Marijuana (THC) Screen Negative SARS-CoV-2 (PCR) Negative Assessment & Plan Assessment & Plan narrative: This is a 46-year-old female with a past medical history of type 1 diabetes, recent admission for CVA and COVID pneumonia (07/2021-09/2021 including acute rehab at [facility]), lupus, fibromyalgia who presented to the emergency room today after waking up not being able to move her right side this morning. 1. Acute CVA, present on admission -patient presents with new onset of right-sided facial droop, numbness, weakness, and dysarthria. Initial stroke scale in the emergency room was greater than 5, on my exam currently a 4 and continuing to improve. TPA was not given due to presentation outside of time window. -she had a prior stroke and was given tPA less than 6 months ago. She was transferred to [facility] in underwent acute rehab and was discharged home. She had not had significant follow-up since her discharge from acute rehab. -continue asa/ statin therapy -new PT/OT/speech evaluations -differential may include TIA, encephalopathy due to hypoglycemia or acute cytsitis based on initial evaluation. 2. acute cystitis, present on admission -patient reports dysuria, with a positive UA. Will follow-up urine cultures. -will treat with ceftriaxone for 3 days, transition to oral antibiotics depending on speech evaluation though she is likely able to eat at this time. 3. Type 1 diabetes with hypoglycemia - patient can tolerate a diet, will resume lantus 20 U nightly. Hypoglycemia likely in setting of decreased PO intake. - add medium dose sliding scale. 4. Non-anion gap metabolic acidosis - mild, will continue to monitor. unlikely due to renal disease given low creatinine. 5. Chronic thrombocytosis and chronic anemia - continue to monitor, both are stable and mild. CODE: Full Proxy: Jhonny Johnson, family I have utilized all available immediate resources to obtain, update, or review the patient's current medications. Time Spent With Patient Critical Care time: I spent a total of [] minutes of critical care time on this patient's care today; this time is exclusive of procedural time. Scores NIHSS Level of Conciousness: Alert, keenly responsive Ask month/age: Answers both questions correctly. Open/close eyes, close hand: Performs both tasks correctly Best gaze horizontal: Normal Visual baxter: No visual loss Facial palsy: Minor paralysis, flattened nasolabial fold, asymmetry on smiling Left arm drift: No drift for full 10 sec Right arm drift: No drift for full 10 sec Left leg drift: No drift for full 5 sec Right leg drift: No drift for full 5 sec Limb ataxia: Absent Sensory on face/arms/legs: Mild to moderate sensory loss, can tell touch Best language: Mild to moderate, slurs some words Dysarthria: Mild to mod,some slurring Extinction or inattention: No abnormality Total NIH Stroke scale score: 4 Quality Stroke Contraindication Not Initiating IV-Tpa: Contraindicated MIPS - Admit I confirm the patient?s Advance Care Plan is present, Code status is documented, Surrogate decision maker is in patient?s record [If Yes, STOP here]: Yes
[2021-12-07] MEDS: cefTRIAXone 1,000 MG in SODIUM CHLORIDE 0.9% 100 ML 200 ML IV (19:52)
[2021-12-07] MEDS: SODIUM CHLORIDE 0.9% 250 ML 21 ML IV (20:43)
--- NOTE | 2021-12-07 22:03 | PM.CALLCOV.1 ---
Call Coverage Note Note Narrative of Care Provided: Requested for glargine and pain meds. She is written for gargine 20 units daily. A1c not ordered as it 11/28/21. Have ordered oxycodone 5 mg po q 4 hours prn. No muscle relaxants due to sedating effect and possibly lowering her blood pressure too fast.
[2021-12-07] MEDS: OXYCODONE IR 5 MG TABLET PO (23:07)
[2021-12-08] VITALS (13 sets, daily range): BP systolic 94–116; BP diastolic 53–71; PULSE 45–112; RESP 16–24; TEMP 36.5–37.1; O2SAT 96–100
--- NOTE | 2021-12-08 00:21 | PC.NURSE ---
Addendum entered by Marleen Mcleod R.N. 12/08/21 06:52: IVF decreased due to IV being positional at the moment. spoke to BALTAZAR Her in regards getting a mid line or picc line due to pt's blood sugar decreasing and pt needing D50. Addendum entered by Marleen Mcleod R.N. 12/08/21 04:20: at 0345 a rapid respond was call due to pt having stroke like symptoms, BLOOD SUGAR WAS CHECK AND IT WAS BELOW 10, AND AMP OF D5O GIVEN, FOLLOW BY A 2ND ONE, LAB WORK WAS DRAWN, BS UP TO 33, PT NOW ON D10 AT 250 ML/HR. BALTAZAR HER WAS A THE BEDSIDE. PT OPENING HER EYES AND SMILING NOW. WAITING ON LABS/WILL CONTINUE TO MONITOR. Original Note: Pt's blood sugar tonight at bed time were 126, pt didn't get any insulin tonight here or at home. Pt had a turkey sandwich. Pt has been talking and appropriately. Pt was requesting to have her blood sugar check again 2315 and blood sugar was 46, pt still talking to nursing staff. Pt was given crackers with jelly/peanut butter and orange juice. blood sugar was check again in 45 minutes and it was 46 in one hand and 48 on the other. Pt still talking to staff. Baltazar her notified and orders taken to recheck blood sugar in one hour. Pt now in the bed drinking drinking Ensure clear.
[2021-12-08] MEDS: OXYCODONE IR 5 MG TABLET PO ×5 (03:02→22:56)
[2021-12-08] MEDS: DEXTROSE 50 % IN WATER 25 GM/50 ML SYRINGE IV ×2 (03:50→04:00)
--- NOTE | 2021-12-08 04:09 | PM.EVENT ---
Event Note Date Patient Seen: 12/08/21 Time Patient Seen: 04:09 Event Note (Rapid Response, Code, or fall): Patient reported to have a blood sugar of less than 20, her nurse was administering an amp of D50 then rapid response was called. When I arrived, she was non-responsive, but in a decorticate position. After 1 amp administered was informed by coordinator there were no more D50 syringes. ED nurse arrived and when I asked if they had any in the ED, she stated they were in the crash carts. Patient was then started on D10, and after receiving a second amp of D50, she woke up and was responding to commands. I have requested she receive the remaining D10 at 250 mls/hour. Critical care time: 30 minutes.
[2021-12-08] MEDS: DEXTROSE 10 % IN WATER 1,000 ML 250 ML IV (04:15)
[2021-12-08 04:20] LABS: Add Manual Diff / Slide Review NO; Basophils Absolute Auto 0 /uL (0-100); Basophils Percent Auto 0.5 % (0-2); Eosinophils Absolute Auto 100 /uL (0-450); Eosinophils Percent Auto 1.3 % (2-4); Hematocrit 31.4 % (36-46); Hemoglobin 10.1 g/dL (12.0-16.0); Lymphocytes Absolute Auto 2800 /uL (1100-4500); Lymphocytes Percent Auto 30.7 % (25-40); Mean Corpuscular HGB Conc 32.2 % (30-36); Mean Corpuscular Hemoglobin 27.3 PG (26-34); Mean Corpuscular Volume 84.8 fL (80-100); Monocytes Absolute Auto 900 /uL (0-900); Monocytes Percent Auto 9.4 % (3-14); Neutrophils Absolute Auto 5300 /uL (1500-7000); Neutrophils Percent Auto 58.1 % (50-75); Platelet Count 672 X10^3/uL (150-400); Red Cell Distribution Width 29.1 % (11.6-14.8); White Blood Cell Count 9.2 X10^3/uL (4.5-11.0)
[2021-12-08 04:28] LABS: BUN Creatinine Ratio 30.4 (6-22); Blood Urea Nitrogen 14 mg/dL (7-17); Calcium 8.6 mg/dL (8.4-10.2); Carbon Dioxide 21 mmol/L (22-32); Cholesterol 177 mg/dL (140-199); Estimated Glomerular Filt Rate > 60.0 mL/min (>60); HDL Cholesterol 104 mg/dL (40-60); HEMOLYSIS < 15 (0-50); LDL Cholesterol Calculated 47 mg/dL (<100); Potassium 4.7 mmol/L (3.4-5.1); Triglycerides 129 mg/dL (35-150)
[2021-12-08 04:30] LABS: Chloride 107 mmol/L (98-107); Sodium 134 mmol/L (137-145)
[2021-12-08 04:31] LABS: Lactate (Lactic Acid) 1.1 mmol/L (0.7-2.1)
[2021-12-08 04:42] LABS: Alanine Aminotransferase 24 IU/L (<35); Albumin 3.7 g/dL (3.5-5.0); Albumin Globulin Ratio 1.2 (1.0-2.8); Alkaline Phosphatase 87 U/L (38-126); Aspartate Aminotransferase 43 IU/L (14-36); Bilirubin Total 0.2 mg/dL (0.2-1.3); Total Protein 6.7 g/dL (6.3-8.2)
[2021-12-08 04:45] LABS: Glucose 27 mg/dL (70-100)
[2021-12-08 04:59] LABS: Anisocytosis 2+
[2021-12-08 05:00] LABS: Hypochromasia 1+
[2021-12-08 05:03] LABS: TSH w/ Reflex to FT4 1.28 uIU/mL (0.47-4.68)
[2021-12-08] MEDS: DEXTROSE 5%-0.9% NS 1,000 ML 125 ML IV ×2 (05:41→17:34)
[2021-12-08] MEDS: INSULIN GLARGINE 100 UNIT/ML 3ML PEN 10 UNIT SUBCUT (09:27)
[2021-12-08] MEDS: ENOXAPARIN 40 MG/0.4 ML SYRINGE SUBCUT (09:45)
--- NOTE | 2021-12-08 10:11 | DI.RAD.S_ITS ---
PROCEDURE: XR CHEST FOR PICC 1V INDICATIONS: line placement TECHNIQUE: One view of the chest was acquired. COMPARISON: [facility], , XR CHEST 1V, 12/07/2021, 14:46. FINDINGS: Surgical changes and devices: Interval placement of right-sided PICC line, the tip is projecting in the expected location of SVC. Lungs and pleura: Lungs are clear. No pleural effusions or pneumothorax. Mediastinum: Mediastinal contours appear normal. Heart size is normal. Bones and chest wall: No suspicious bony lesions. Overlying soft tissues appear unremarkable. IMPRESSION: Right-sided PICC line tip is in the expected location of SVC. No focal infiltrate, pleural effusion or pneumothorax. Dictated by: Levy Condon M.D. on 12/08/2021 at 10:40 Approved by: Levy Condon M.D. on 12/08/2021 at 10:41
--- NOTE | 2021-12-08 11:41 | PT.IIE ---
Medical History (Last Reviewed 12/07/21 @ 20:07 by Kirsten Saldivar DO) Alcohol intoxication Closed hip fracture COVID DKA (diabetic ketoacidoses) DKA (diabetic ketoacidosis) Fibromyalgia Gastroesophageal reflux disease Insulin dependent diabetes mellitus Lupus Osteoporosis Physical Therapy Inpatient Evaluation/Re-Eval M1 PT/OT-IP Prior Functional Status Start: 12/08/21 12:39 Freq: NEEDED Status: Active Protocol: Document 12/08/21 12:40 AB (Rec: 12/08/21 12:48 AB [id number]) Medical Review Prior Functional Status Medical History Reviewed Yes Communication able to make needs known Mobility and Gait pt stated that she is modified independent with all mobilities and ambulation using FWW Social History Household Members family Living Arrangements House Number of Floors (Floors) One Floor Number of Stairs To Enter/Railing? ramp to enter Home Environment Standard Height Toilet,Tub/ Shower,Ramp Home Equipment Hand Held Shower,Grab Bars In Shower Additional Social History Comment pt has her daughter and cousin to assist her M2 PT-IP Current Condition Start: 12/08/21 12:39 Freq: NEEDED Status: Active Protocol: Document 12/08/21 12:40 AB (Rec: 12/08/21 12:48 AB [email or web address]) Physical Therapy Current Condition Current Condition Evaluation Date 12/08/21 Treatment Diagnosis r/o CVA; difficulty in walking Onset Date 12/07/21 M3 PT-IP Subjective Start: 12/08/21 12:39 Freq: NEEDED Status: Active Protocol: Document 12/08/21 12:40 AB (Rec: 12/08/21 12:48 AB [email or web address]) Subjective Physical Therapy Visit Type Type Initial Evaluation Visit Start Time 11:41 Visit Stop Time 12:02 Total Visit Minutes 21 Number of PEAR PICKER Visits 0 Physical Therapy Visit Comments Patient Comments agreed to do PT M4 PT-IP Mobility and Gait Start: 12/08/21 12:39 Freq: NEEDED Status: Active Protocol: Document 12/08/21 12:40 AB (Rec: 12/08/21 12:48 AB [email or web address]) PT-Bed Mobility Assessment Supine to Sit Supine to Sit Independent PT-Transfer Assessment Sit to and From Stand Sit to and from Stand Contact Guard Assistance,1 Person Assistance,Use of Upper Extremities Equipment Transfer Assistive Device Gait Belt,Front Wheeled Walker Orthotic/Prosthetic Devices or Brace: No Transfers Transfer Destination Chair Transfer Technique ambulated Transfer Ability Level of Assist Contact Guard Assistance Comments Mobility Comments completed bed mobility supine to sit mod I. able to sit on EOB SBA. completed sit to stand cGA and ambulated using FWW ~ 30 ft. pt agreed to sit up on chair. positioned on chair. and OT took over pt's care. Gait Assessment Gait Gait Assistance Required: Contact Guard Assist Distance (Feet) 30 Able to Maintain Weight Bearing Status Yes During Gait Assistive Devices Assistive Device Gait Belt,Front Wheeled Walker Orthotic/Prosthetic Devices or Brace: No Gait Deviations General Gait Pattern Decreased Stride Length, Decreased Feet Clearance Factors Limiting Gait Function Factors Limiting Gait Function Decreased Activity Tolerance, Decreased Sensation,Decreased Strength,Poor Balance PT-Balance Assessment Sitting Balance and Reactions Static Sitting Balance Ability Normal Dynamic Sitting Balance Ability Normal Standing Balance and Reactions Static Standing Balance Ability Good Dynamic Standing Balance Ability Fair Device Used FWW M5 PT-IP Objective Assessments Start: 12/08/21 12:39 Freq: NEEDED Status: Active Protocol: Document 12/08/21 12:40 AB (Rec: 12/08/21 12:48 AB [email or web address]) Orientation Orientation/Cognition Level of Alertness Alert Orientation Name,Year,Place,Situation Safety Awareness Decreased Safety Awareness Memory Description Short Term Impaired Gross Range of Motion Lower Extremity ROM Assessment Within Functional Limits Strength Lower Extremity Strength Assessment Left Impaired Hip 4-/5 Knee 3+/5 Sensation Assessment Sensation Gross Sensation Right LE Impaired,Left LE Impaired Light Touch Impaired Proprioception (Position) Impaired Sensation Description Numbness,Tingling Muscle Tone Muscle Tone WNL Yes M6 PT-IP Treatment Start: 12/08/21 12:39 Freq: NEEDED Status: Active Protocol: Document 12/08/21 12:40 AB (Rec: 12/08/21 12:48 AB [email or web address]) Physical Therapy Treatment Education Education Provided Safety M7 PT-IP Assessment and Plan Start: 12/08/21 12:39 Freq: NEEDED Status: Active Protocol: Document 12/08/21 12:40 AB (Rec: 12/08/21 12:48 AB [email or web address]) PT Summary Assessment and Plan Potential Rehabilitation Potential Good Status of Condition at Evaluation Stable Summary Impairments Pain,ROM,Strength,Balance, Coordination,Sensation,Bed Mobility,Transfers,Gait, Activity Tolerance Assessment Summary pt requiring CGA with mobility using FWW. pt has decrease activity tolerance affecting independence. pt plans to go home and has her family to assister as needed. pt may go home when medically stable. Goals Transfer Goal Independent,Front Wheeled Walker Gait Goal Independent,Front Wheel Walker Gait Distance 200 Days to Meet Goals 5 Frequency of Treatment Frequency Of Treatment Once a Day Treatment Plan Physical Therapy Treatment Plan Bed Mobility Training,Transfer Training,Gait Training, Therapeutic Exercise,Balance Retraining,Discharge Planning, Neuromuscular Re-ed, Coordination Retraining Recommendations To Nursing Amount of Assist Needed 1 Person Assist Discharge Recommendations PT Discharge Recommendations Home with Assistance,Home Health Transportation Needs at Discharge Private Vehicle
--- NOTE | 2021-12-08 12:15 | OT.IP.EVAL ---
Past Medical History (Last Reviewed 12/07/21 @ 20:07 by Kirsten Saldivar DO) Alcohol intoxication Closed hip fracture COVID DKA (diabetic ketoacidoses) DKA (diabetic ketoacidosis) Fibromyalgia Gastroesophageal reflux disease History of hip surgery Insulin dependent diabetes mellitus Lupus Osteoporosis Surgical History (Last Reviewed 12/07/21 @ 20:07 by Kirsten Saldivar DO) History of hip surgery Occupational Therapy Inpatient Evaluation/Re-Eval M1 PT/OT-IP Prior Functional Status Start: 12/08/21 12:39 Freq: NEEDED Status: Active Protocol: Document 12/08/21 13:20 CGR (Rec: 12/08/21 13:38 CGR [id number]) Medical Review Prior Functional Status Medical History Reviewed Yes Communication able to make needs known Mobility and Gait pt stated that she is modified independent with all mobilities and ambulation using FWW Activities of Daily Living and IADL's Pt states she gets help with showering but otherwise is IND for ADLs. Social History Household Members family Living Arrangements House Number of Floors (Floors) One Floor Number of Stairs To Enter/Railing? ramp to enter Home Environment Standard Height Toilet,Tub/ Shower,Ramp Home Equipment Hand Held Shower,Grab Bars In Shower Employment Status Retired Additional Social History Comment pt has her daughter and cousin to assist her M1 PT/OT-IP Prior Functional Status Start: 12/08/21 13:20 Freq: NEEDED Status: Active Protocol: Document 12/08/21 13:20 CGR (Rec: 12/08/21 13:38 CGR [id number]) Medical Review Prior Functional Status Medical History Reviewed Yes Communication able to make needs known Mobility and Gait pt stated that she is modified independent with all mobilities and ambulation using FWW Activities of Daily Living and IADL's Pt states she gets help with showering but otherwise is IND for ADLs. Social History Household Members family Living Arrangements House Number of Floors (Floors) One Floor Number of Stairs To Enter/Railing? ramp to enter Home Environment Standard Height Toilet,Tub/ Shower,Ramp Home Equipment Hand Held Shower,Grab Bars In Shower Employment Status Retired Additional Social History Comment pt has her daughter and cousin to assist her M2 OT-IP Current Condition Start: 12/08/21 13:20 Freq: Status: Active Protocol: Document 12/08/21 13:20 CGR (Rec: 12/08/21 13:38 R [id number]) Occupational Therapy Current Condition Current Condition Evaluation Date 12/08/21 Treatment Diagnosis R sided weakness, low BS Diagnosis Onset Date 12/07/21 M3 OT- IP Subjective and Pain Start: 12/08/21 13:20 Freq: Status: Active Protocol: Document 12/08/21 13:20 CGR (Rec: 12/08/21 13:38 R [id number]) OT- Subjective Occupational Therapy Visit Type Type Initial Evaluation Visit Start Time 11:45 Visit Stop Time 12:15 Total Visit Minutes 30 Notes Partial co-treat with P.T. OT Pain Assessment Pain When Pain Assessed At Rest Pain Present Pain Present Pain Reported Location lower back Intensity 6 Scale Used Numeric (0 - 10) Management Techniques Distraction,Modification of Treatment,Re-positioning M4 OT- IP ADL's Start: 12/08/21 13:20 Freq: Status: Active Protocol: Document 12/08/21 13:20 CGR (Rec: 12/08/21 13:38 R [id number]) OT [id number] Comments OT Self-Feeding Comments Not yet meal time OT ADL-Grooming General Evaluation Grooming Ability Standby Assistance Areas Needing Assistance Retrieving/Set-up of Grooming Items,Combing/Brushing Hair, Face Washing Comments OT Grooming Comments seated in chair, of note, pt is loosing her hair rapidly. OT ADL-Oral Care General Eval Oral Care Ability Standby Assistance Areas of Assistance Brushing Teeth,Retrieving/Set- Up of Items Comments Oral Care Comments performed seated in chair OT ADL-Dressing Comments OT Dressing Comments not performed OT ADL-Toileting Comments OT Toileting Comments pt with wright OT ADL-Bathing Comments OT Bathing Comments not performed M5 OT- IP IADL's Start: 12/08/21 13:20 Freq: Status: Active Protocol: Document 12/08/21 13:20 CGR (Rec: 12/08/21 13:38 R [id number]) OT-Instrumental Activities of Daily Living Deficits IADL Deficits Identified No Deficits Home Safety Awareness Awareness of Need for Assistance at Home Good Awareness Ability to Problem Solve Emergency Able to Problem Solve Situations Medication Management Medication Management Caregiver Administers Money Management Money Management Caregiver Provides Assistance Meal Preparation Meal Preparation Caregiver Provides Assist [employer] Worker [employer] Worker Caregiver Provides Assist Driving Driving Comments Pt does not drive. M6 OT- IP Functional Cognition Start: 12/08/21 13:20 Freq: Status: Active Protocol: Document 12/08/21 13:20 CGR (Rec: 12/08/21 13:38 CGR [id number]) Cognitive Factors Limiting Selfcare Function Cognitive Ability Level of Alertness Alert Patient Orientation Name,Age,Birthday,Year,Day of Week,Place,Situation Attention Span Ability Capable of Focused Attention, Capable of Sustained Attention Ability to Follow Commands Able to Follow One Step Commands with Increased Time, Able to Follow One Step Commands with Repetition Cognitive Comments Cognitive Assessment Comments Pt was not able to state the month or the date. Pt may benefit from a formal cog assessment. OT- Vision and Hearing OT- Hearing Assessment OT- Hearing Assessment WFL OT- Vision Assessment Visual Acuity Glasses All The Time Visual Attentiveness WFL Occular Pursuits WFL Visual Convergence WFL M7 OT- IP Mobility and Balance Start: 12/08/21 13:20 Freq: Status: Active Protocol: Document 12/08/21 13:20 CGR (Rec: 12/08/21 13:38 CGR [id number]) OT- Bed Mobility Assessment Supine to Sit Supine to Sit Assist Independent,Bedrails Scooting Scooting to Edge of Bed Independent,Bedrails OT-Transfer Assessment Sit to and From Stand Sit to and from Stand Contact Guard Assistance Transfers Transfer Ability Contact Guard Assistance Technique Transfer Destination Bed Transfer Technique Stand Step Pivot Devices Transfer Assistive Devices Gait Belt,Front Wheeled Walker Comments Mobility Comments mobility around the room OT- Balance Assessment Sitting Balance and Reactions Static Sitting Balance Ability Normal Dynamic Sitting Balance Ability Good M8 OT- IP Objective Assessments Start: 12/08/21 13:20 Freq: Status: Active Protocol: Document 12/08/21 13:20 CGR (Rec: 12/08/21 13:38 CGR [id number]) OT Gross Range of Motion Upper Extremity Range of Motion Assessment Within Functional Limits OT Strength Upper Extremity Strength Assessment Bilaterally Impaired Comments Strength Comments Grossly 3+/5 throughout OT- Coordination Assessment Upper Extremity Finger to Nose Test Within Functional Limits Finger Tapping Test Within Functional Limits OT-Muscle Tone Assessment Muscle Tone WNL Yes OT Sensation Assessment Comments Summary Comments Pt states numbness to tips of fingers. Edema Edema Absent M9 OT- IP Assessment and Plan Start: 12/08/21 13:20 Freq: Status: Active Protocol: Document 12/08/21 13:20 CGR (Rec: 12/08/21 13:38 CGR [id number]) OT Summary Assessment and Plan Potential Rehabilitation Potential Excellent Analytic Complexity at Evaluation Moderate Summary OT Impairments Pain,Strength,Balance, Functional Cognition, Functional Mobility,Grooming, Dressing,Toileting,Bathing, Toilet Transfers,Shower Transfers,Activity Tolerance Progress Towards Goals Slow Progress due to Medical Issues Assessment Summary Pt presents as a moderate complexity evaluation s/p admit for R sided weakness and low BS. Pt now with resolved R sided weakness but is grossly weak. Pt states she feels like her L is weaker than her right which is her baseline from a previous CVA. Pt is likely to be safe for discharge home when medically stable but would benefit from OT home health services. Goals Grooming Goal Independent Dressing Goal Independent Toileting Goal Independent Bathing Goal Minimal Assistance Toilet Transfer Goal Independent Shower Transfer Goal Independent Days to Meet Goals 30 Frequency of Treatment Frequency Of Treatment Once a Day Treatment Plan OT Treatment Plan ADL Training,Functional Cognition Training,Functional Mobility,Patient/Family Education,Discharge Planning Other Treatment Recommendations and Next shower and cog assessment. Treatment Focus Discharge Recommendations OT Discharge Recommendations Home with Assistance Transportation Needs at Discharge Private Vehicle
--- NOTE | 2021-12-08 12:59 | DI.MRI.S_ITS ---
PROCEDURE: MR HEAD/BRAIN WO CON INDICATIONS: Right sided weakness, numbness. improving poss. CVA TECHNIQUE: Noncontrast axial T1 spin echo, axial T2 fast spin echo, sagittal and axial FLAIR, coronal T2 fast spin echo, axial gradient echo, axial diffusion and ADC through the brain. COMPARISON: [facility], CT, CT STROKE, 12/07/2021, 14:28. [facility], CT, CT ANGIO HEAD AND NECK, 12/07/2021, 16:33. FINDINGS: These images demonstrate a small area of restricted diffusion in the medial perirolandic region involving the frontal and parietal lobes. In this region there is gyriform increased T1 weighted signal near the cortex reflecting cortical laminar necrosis. The degree of signal increase on the diffusion-weighted images and signal decrease on the ADC map suggest that this represents a late subacute infarct, along with the FLAIR signal abnormality and presence of cortical laminar necrosis. There is also encephalomalacia and gliosis in the region on the corresponding CT. Small remote lacunar infarct in the anterior right frontal deep lobe white matter. There is no other restricted diffusion to suggest an acute infarct. No findings of mass effect or midline shift. Normal ventricular caliber and position. Patent basilar cisterns. No unexpected intracranial susceptibility. IMPRESSION: Late subacute infarct in the right perirolandic region. Small remote lacunar infarct in the right frontal deep white matter. Dictated by: Jaden Uriostegui M.D. on 12/08/2021 at 15:30 Approved by: Jaden Uriostegui M.D. on 12/08/2021 at 15:33
[2021-12-08] MEDS: LORazepam 2 MG/ML INJ 1 MG IV (14:32)
[2021-12-08] MEDS: ACETAMINOPHEN 325 MG TABLET 975 MG PO (14:36)
--- NOTE | 2021-12-08 18:27 | PM.PN.1 ---
Subjective Subjective Date Patient Seen: 12/08/21 Time Patient Seen: 18:27 Interval history: improved distal weakness on the R with improved numbness. still with facial asymmetry and improved slurred speech. overnight with hypoglycemia into the 20s. remains on D5 today. Exam Vital Signs (past 8 hours): - 12/08/21 11:00 12/08/21 13:00 Temperature 98.2 F Pulse Rate 106 H Respiratory Rate 18 Blood Pressure 114/71 Pulse Oximetry 100 100 Oxygen Delivery Method Room Air Oxygen Flow Rate 0 Narrative Exam Narrative: General:? Patient is a chronically ill-appearing female, with blanket around her head but no obvious acute distress. HEENT:? Normocephalic, atraumatic, extraocular muscles intact, oral pharynx is clear and mucous membranes are moist. Neck: supple and symmetric, trachea is midline, no cervical adenopathy. Negative for JVD Chest:? Normal AP diameter and contour without kyphoscoliosis, no tachypnea, equal chest rise bilaterally. Lungs:? CTA b/l no wheezing rhonchi or rales. Cardio:?RRR no m/r/g. Abdomen: S NT ND. No CVA tenderness. Musculoskeletal:? Muscle strength and tone are equal within normal limits, no deformity. Extremities: No edema or joint effusions. No cyanosis or clubbing. Skin:? Pale,? Warm to touch,dry and intact without rashes, ulcerations or petechiae.? Neuro:? Alert and orientated x3,?slight lethargy and mildly impaired memory recall. strength is slightly weaker on the R, improved. but still +5/5, heel to connor slow but no obvious deficits. Reported facial numbness, R numbness of UE and LE now reportedly resolved, and slight facial asymmetry with dysarthria also slightly improved Psych:? Patient has a mildly disheveled appearance, appropriate affect. Objective Labs Result Diagrams: 12/08/21 04:08 12/08/21 04:08 Labs: Laboratory Results - last 24 hr 12/08/21 12/08/21 12/08/21 04:08 04:08 04:08 WBC 9.2 RBC 3.70 L Hgb 10.1 L Hct 31.4 L MCV 84.8 MCH 27.3 MCHC 32.2 RDW 29.1 H Plt Count 672 H Neut % (Auto) 58.1 Lymph % (Auto) 30.7 [place] % (Auto) 9.4 Eos % (Auto) 1.3 L Baso % (Auto) 0.5 Neut # (Auto) 5300 Lymph # (Auto) 2800 [place] # (Auto) 900 Eos # (Auto) 100 Baso # (Auto) 0 RBC Morphology Not Reportable Hypochromasia 1+ H Anisocytosis 2+ H Sodium 134 L Potassium 4.7 Chloride 107 Carbon Dioxide 21 L BUN 14 Creatinine 0.46 L Estimated GFR > 60.0 BUN/Creatinine Ratio 30.4 H Glucose 27 L* Lactate Calcium 8.6 Total Bilirubin 0.2 AST 43 H ALT 24 Alkaline Phosphatase 87 Total Protein 6.7 Albumin 3.7 Globulin 3.0 Albumin/Globulin Ratio 1.2 Triglycerides 129 Cholesterol 177 LDL Cholesterol, Calc 47 HDL Cholesterol 104 H TSH 1.28 12/08/21 04:08 WBC RBC Hgb Hct MCV MCH MCHC RDW Plt Count Neut % (Auto) Lymph % (Auto) [place] % (Auto) Eos % (Auto) Baso % (Auto) Neut # (Auto) Lymph # (Auto) [place] # (Auto) Eos # (Auto) Baso # (Auto) RBC Morphology Hypochromasia Anisocytosis Sodium Potassium Chloride Carbon Dioxide BUN Creatinine Estimated GFR BUN/Creatinine Ratio Glucose Lactate 1.1 Calcium Total Bilirubin AST ALT Alkaline Phosphatase Total Protein Albumin Globulin Albumin/Globulin Ratio Triglycerides Cholesterol LDL Cholesterol, Calc HDL Cholesterol TSH [facility] Medical History Alcohol intoxication Closed hip fracture COVID DKA (diabetic ketoacidoses) DKA (diabetic ketoacidosis) Fibromyalgia Gastroesophageal reflux disease Insulin dependent diabetes mellitus Lupus Osteoporosis Surgical History History of hip surgery Family History Mother Diabetes mellitus Congestive heart failure Pancreatic cancer Father Diabetes mellitus Brother Diabetes mellitus Pancreatitis Sister Drug overdose Social History household members: family Smoking Status: Former smoker alcohol intake: current Assessment & Plan Assessment & Plan narrative: This is a 46-year-old female with a past medical history of type 1 diabetes, recent admission for CVA and COVID pneumonia (07/2021-09/2021 [address] rehab at [facility]), lupus, fibromyalgia who presented to the emergency room after waking up not being able to move her right side. Admitted with acute CVA. 1. Acute CVA, present on admission -patient presents with new onset of right-sided facial droop, numbness, weakness, and dysarthria.? Initial stroke scale in the emergency room was greater than 5, on my exam was 4 and continuing to improve.? TPA was not given due to presentation outside of time window. -she had a prior stroke and was given tPA less than 6 months ago.? She was transferred to [facility] in underwent acute rehab and was discharged home.? She had not had significant follow-up since her discharge from acute rehab. - MRI showed late subacute infarct on the R, however doesn't correlate with patient's symptoms however. -continue asa/ statin therapy - PT/OT/speech to continue -differential may include TIA, encephalopathy due to hypoglycemia or acute cytsitis based on initial evaluation. 2. acute cystitis, present on admission -patient reports dysuria, with a positive UA.? Will follow-up urine cultures. -will treat with ceftriaxone for 3 days, transition to oral antibiotics depending on speech evaluation though she is likely able to eat at this time. 3. Type 1 diabetes with hypoglycemia - reduced lantus to 10 units given hypoglycemia overnight. Now tolerating a diet will leave at this dose for now. continue to monitor. - add medium dose sliding scale. 4. Non-anion gap metabolic acidosis - mild, will continue to monitor. unlikely due to renal disease given low creatinine. - now improving, may be related to dehydration. 5. Chronic thrombocytosis and chronic anemia ?- continue to monitor, both are stable and mild. CODE: Full Proxy: Jhonny Alex, family I have utilized all available immediate resources to obtain, update, or review the patient's current medications.? Dispo: probable discharge home in 1-2 days depending on if continued hypoglycemia. Time Spent With Patient Critical Care time: I spent a total of [] minutes of critical care time on this patient's care today; this time is exclusive of procedural time. Quality Stroke Contraindication Not Initiating IV-Tpa: Contraindicated VTE Deep Vein Thrombosis/Pulmonary Embolism Present on Admission: No
[2021-12-08] MEDS: cefTRIAXone 1,000 MG in SODIUM CHLORIDE 0.9% 100 ML 200 ML IV (19:18)
[2021-12-09 01:00] VITALS: BP 100/54; PULSE 90; RESP 17; TEMP 36.6; O2SAT 98
[2021-12-09] MEDS: DEXTROSE 5%-0.9% NS 1,000 ML 125 ML IV (01:38)
[2021-12-09 03:00] VITALS: O2SAT 100
[2021-12-09] MEDS: OXYCODONE IR 5 MG TABLET PO ×3 (03:35→11:50)
[2021-12-09 04:02] VITALS: BP 103/58; PULSE 89; RESP 17; TEMP 36.6; O2SAT 100
[2021-12-09 06:06] LABS: BUN Creatinine Ratio 19.4 (6-22); Blood Urea Nitrogen 7 mg/dL (7-17); Calcium 7.8 mg/dL (8.4-10.2); Carbon Dioxide 25 mmol/L (22-32); Chloride 105 mmol/L (98-107); Estimated Glomerular Filt Rate > 60.0 mL/min (>60); Glucose 179 mg/dL (70-100); HEMOLYSIS < 15 (0-50); Potassium 4.1 mmol/L (3.4-5.1); Sodium 133 mmol/L (137-145)
[2021-12-09 06:15] LABS: Add Manual Diff / Slide Review NO; Basophils Absolute Auto 0 /uL (0-100); Basophils Percent Auto 0.6 % (0-2); Eosinophils Absolute Auto 100 /uL (0-450); Eosinophils Percent Auto 1.7 % (2-4); Hematocrit 25.3 % (36-46); Hemoglobin 8.2 g/dL (12.0-16.0); Lymphocytes Absolute Auto 2600 /uL (1100-4500); Mean Corpuscular HGB Conc 32.4 % (30-36); Mean Corpuscular Hemoglobin 27.5 PG (26-34); Mean Corpuscular Volume 84.8 fL (80-100); Monocytes Absolute Auto 800 /uL (0-900); Monocytes Percent Auto 10.6 % (3-14); Neutrophils Absolute Auto 3800 /uL (1500-7000); Neutrophils Percent Auto 52.1 % (50-75); Platelet Count 536 X10^3/uL (150-400); Red Blood Cell Count 2.98 X10^6/uL (4.0-5.2); Red Cell Distribution Width 28.6 % (11.6-14.8); White Blood Cell Count 7.3 X10^3/uL (4.5-11.0)
[2021-12-09 06:39] LABS: Anisocytosis 2+; Hypochromasia 2+
[2021-12-09] MEDS: INSULIN GLARGINE 100 UNIT/ML 3ML PEN 10 UNIT SUBCUT (08:08)
[2021-12-09] MEDS: INSULIN LISPRO 100 UNIT/ML 3ML VIAL SUBCUT (08:09)
[2021-12-09] MEDS: ENOXAPARIN 40 MG/0.4 ML SYRINGE SUBCUT (08:10)
[2021-12-09] MEDS: SODIUM CHLORIDE 0.9% FLUSH 10 ML IV (08:11)
[2021-12-09 09:00] VITALS: BP 102/58; PULSE 97; RESP 16; TEMP 36.6; O2SAT 99
--- NOTE | 2021-12-09 09:25 | PT-IP ANOTE ---
PT checked on pt but she was in the shower. Plan to check back later.
--- NOTE | 2021-12-09 09:45 | OT.IP.TRT ---
Current Diagnoses Cerebral infarction, unspecified (12/07/21) Occupational Therapy Treatment Note M2 OT-IP Current Condition Start: 12/08/21 13:20 Freq: Status: Active Protocol: Document 12/08/21 13:20 CGR (Rec: 12/08/21 13:38 CGR [id number]) Occupational Therapy Current Condition Current Condition Evaluation Date 12/08/21 Treatment Diagnosis R sided weakness, low BS Diagnosis Onset Date 12/07/21 M3 OT- IP Subjective and Pain Start: 12/08/21 13:20 Freq: Status: Active Protocol: Document 12/09/21 10:18 CGR (Rec: 12/09/21 10:22 CGR [id number]) OT- Subjective Occupational Therapy Visit Type Type Progress Note Visit Start Time 09:20 Visit Stop Time 09:45 Total Visit Minutes 25 Notes Pt in the shower when OT entered. M4 OT- IP ADL's Start: 12/08/21 13:20 Freq: Status: Active Protocol: Document 12/09/21 10:18 CGR (Rec: 12/09/21 10:22 CGR [id number]) OT [id number] Comments OT Self-Feeding Comments Not meal time OT ADL-Grooming General Evaluation Grooming Ability Independent Areas Needing Assistance Combing/Brushing Hair,Face Washing Comments OT Grooming Comments seated in chair or in shower for washing face OT ADL-Oral Care General Eval Oral Care Ability Standby Assistance Areas of Assistance Brushing Teeth,Retrieving/Set- Up of Items Comments Oral Care Comments standing at sink OT ADL-Dressing General Eval Upper Body Dressing Ability Standby Assistance Lower Body Dressing Ability Standby Assistance Comments OT Dressing Comments Donned hosptial gown and socks seated in chair in shower OT ADL-Toileting Comments OT Toileting Comments pt with wright OT ADL-Bathing Bathing Type Bathing Type Shower General Evaluation Bathing Ability Standby Assistance Areas Needing Assistance Retrieving/Setting Up Items Devices Bathing Equipment Hand Held Shower Sprayer Comments OT Bathing Comments seated on BSC in shower with hand held shower. Pt able to wash hair without assist M5 OT- IP IADL's Start: 12/08/21 13:20 Freq: Status: Active Protocol: Document 12/08/21 13:20 CGR (Rec: 12/08/21 13:38 CGR [id number]) OT-Instrumental Activities of Daily Living Deficits IADL Deficits Identified No Deficits Home Safety Awareness Awareness of Need for Assistance at Home Good Awareness Ability to Problem Solve Emergency Able to Problem Solve Situations Medication Management Medication Management Caregiver Administers Money Management Money Management Caregiver Provides Assistance Meal Preparation Meal Preparation Caregiver Provides Assist Hull Drafter Hull Drafter Caregiver Provides Assist Driving Driving Comments Pt does not drive. M6 OT- IP Functional Cognition Start: 12/08/21 13:20 Freq: Status: Active Protocol: Document 12/08/21 13:20 CGR (Rec: 12/08/21 13:38 R [id number]) Cognitive Factors Limiting Selfcare Function Cognitive Ability Level of Alertness Alert Patient Orientation Name,Age,Birthday,Year,Day of Week,Place,Situation Attention Span Ability Capable of Focused Attention, Capable of Sustained Attention Ability to Follow Commands Able to Follow One Step Commands with Increased Time, Able to Follow One Step Commands with Repetition Cognitive Comments Cognitive Assessment Comments Pt was not able to state the month or the date. Pt may benefit from a formal cog assessment. OT- Vision and Hearing OT- Hearing Assessment OT- Hearing Assessment WFL OT- Vision Assessment Visual Acuity Glasses All The Time Visual Attentiveness WFL Occular Pursuits WFL Visual Convergence WFL M7 OT- IP Mobility and Balance Start: 12/08/21 13:20 Freq: Status: Active Protocol: Document 12/09/21 10:18 CGR (Rec: 12/09/21 10:22 R [id number]) OT-Transfer Assessment Sit to and From Stand Sit to and from Stand Standby Assistance Transfers Transfer Ability Standby Assistance Technique Transfer Destination Bedside Commode,Chair,Shower Stall Transfer Technique Stand Step Pivot Devices Transfer Assistive Devices Gait Belt,Front Wheeled Walker Comments Mobility Comments Mobility around the room and out of the bathroom. OT- Balance Assessment Sitting Balance and Reactions Static Sitting Balance Ability Good Dynamic Sitting Balance Ability Good M8 OT- IP Objective Assessments Start: 12/08/21 13:20 Freq: Status: Active Protocol: Document 12/08/21 13:20 CGR (Rec: 12/08/21 13:38 R [id number]) OT Gross Range of Motion Upper Extremity Range of Motion Assessment Within Functional Limits OT Strength Upper Extremity Strength Assessment Bilaterally Impaired Comments Strength Comments Grossly 3+/5 throughout OT- Coordination Assessment Upper Extremity Finger to Nose Test Within Functional Limits Finger Tapping Test Within Functional Limits OT-Muscle Tone Assessment Muscle Tone WNL Yes OT Sensation Assessment Comments Summary Comments Pt states numbness to tips of fingers. Edema Edema Absent M9 OT- IP Assessment and Plan Start: 12/08/21 13:20 Freq: Status: Active Protocol: Document 12/09/21 10:18 CGR (Rec: 12/09/21 10:22 CGR [id number]) OT Summary Assessment and Plan Potential Rehabilitation Potential Excellent Analytic Complexity at Evaluation Moderate Summary OT Impairments Pain,Strength,Balance, Functional Cognition, Functional Mobility,Grooming, Dressing,Toileting,Bathing, Toilet Transfers,Shower Transfers,Activity Tolerance Progress Towards Goals Slow Progress due to Medical Issues Assessment Summary Pt presents as a moderate complexity evaluation s/p admit for R sided weakness and low BS. Pt now with resolved R sided weakness but is grossly weak. Pt was in the shower when OT entered. Pt finished shower and was able to dry off and perform dressing with SBA and set up. Pt then brushed teeth at sink and returned to chair for brushing hair. Pt left sitting up in chair, call button within reach, chair fall alarm armed and all needs at time met. Goals Grooming Goal Independent Dressing Goal Independent Toileting Goal Independent Bathing Goal Minimal Assistance Toilet Transfer Goal Independent Shower Transfer Goal Independent Days to Meet Goals 30 Frequency of Treatment Frequency Of Treatment Once a Day Treatment Plan OT Treatment Plan ADL Training,Functional Cognition Training,Functional Mobility,Patient/Family Education,Discharge Planning Other Treatment Recommendations and Next cog assessment. Treatment Focus Discharge Recommendations OT Discharge Recommendations Home with Assistance Transportation Needs at Discharge Private Vehicle
--- NOTE | 2021-12-09 10:28 | P.DS_ITS ---
History of Present Illness History of Present Illness Date Patient Seen: 12/09/21 Time Patient Seen: 10:28 Chief complaint: CVA Narrative: This is a 46-year-old female with a past medical history of type 1 diabetes, recent admission for CVA and COVID pneumonia (07/2021-09/2021 including acute rehab at [facility]), lupus, fibromyalgia who presented to the emergency room today after waking up not being able to move her right side this morning. Patient was unable to take any of her medications or check her blood sugar at the time because she was unable to move her right side. Her last known normal was midnight when she went to sleep. She reports her prior stroke symptoms were on the left-hand side. She further reported right-sided numbness, slurred speech, and a facial droop. A code stroke was called in the emergency room, tPA was not given given time of presentation. The patient's symptoms have subsequently improved and by the time of my examination in the ER her right- sided strength had returned though she still continues to report mild facial asymmetry, difficulty with speech, and numbness of her right side and face. She does endorse continued dysuria but no abdominal pain, nausea, vomiting, fever, chills, cough, shortness of breath. She did not eat breakfast this morning nor did she take her insulin. In the emergency room, the patient was borderline tachycardic with rates in mid to upper 90s, but the remainder of her vital signs were unremarkable. Her blood pressures are mildly soft but within normal limits. Initial laboratory evaluation was notable for a fingerstick glucose into the 40s, lab testing showed a glucose of 51. Carbon dioxide level in her basic chemistry was also mildly low at 19, she had a mild elevation in her AST to 60, but the remainder of her chemistry panel was unremarkable. Coagulation studies were unremarkable. CBC showed no leukocytosis and a stable chronic anemia, and chronic thr ombocytosis which is improved from prior lab values. Urinalysis appeared to show an active infection with 3+ blood, 2+ leuk esterase, greater than 100 wbc's and rbc's with minimal squamous cells. Urine specimen was sent for culture. Urine drug screen was negative. COVID-[address] angiogram of her head and neck as well as a CT head without contrast showed no acute infarcts, thrombosis, or intracranial hemorrhage. Patient was admitted for further management of probable new acute CVA. Discharge Providers Provider Date of admission: 12/07/21 18:10 Discharge Date: 12/09/21 Primary care physician: Jhonny Evans PA-C Consults: 12/07/21 19:05 Consult to Occupational Therapy Evaluate & Treat Comment: Physician Instructions: Evaluate and treat Consult to Physical Therapy Evaluate & Treat Comment: Physician Instructions: Evaluate and Treat Discharge provider: Norman Orozco DO Summary Hospital Course Discharge Diagnosis: Please see hospital course by problem list noted below: Hospital Course: This is a 46-year-old female with a past medical history of type 1 diabetes, recent admission for CVA and COVID pneumonia (07/2021-09/2021 including acute rehab at [facility]), lupus, fibromyalgia who presented to the emergency room after waking up not being able to move her right side. Admitted with acute CVA, over the course of admission her symptoms improved, but was hypoglycemic and given MRI findings symptoms may have been related to hypoglycemia though this seems less likely as symptoms did persist despite correction of blood sugar. She was assessed by PT and OT, deemed able to discharge home. 1. Acute CVA, present on admission -patient presents with new onset of right-sided facial droop, numbness, weakness, and dysarthria.? Initial stroke scale in the emergency room was greater than 5, on my exam was 4 and continued to improve.? TPA was not given due to presentation outside of time window. -she had a prior stroke and was given tPA less than 6 months ago.? She was transferred to [facility] in underwent acute rehab and was discharged home.? She had not had significant follow-up since her discharge from acute rehab. - MRI showed late subacute infarct on the R, however doesn't correlate with patient's symptoms on the R side as well. -continued asa/ statin therapy - PT/OT/speech consultations were obtained. -differential may include TIA, encephalopathy due to hypoglycemia or acute cytsitis based on initial evaluation. 2. acute cystitis, present on admission -patient reports dysuria, with a positive UA.?Initially treated with ceftriaxone. Discharged on 5 additional days of nitrofurantoin. 3. Type 1 diabetes with hypoglycemia - reduced lantus to 10 units given hypoglycemia overnight that was seen on day of admission and HD#1. She had no further hypoglycemia with lower insulin dosing. 4. Non-anion gap metabolic acidosis - mild, not likely due to renal disease given low creatinine. This slowly improved over the course of her admission. 5. Chronic thrombocytosis and chronic anemia ?- both are stable and mild. Recommend further outpatient evaluation if not already performed. Time Spent with Patient Time spent: Greater than 30 minutes Exam Vital Signs (past 8 hours): - 12/09/21 03:00 12/09/21 04:02 12/09/21 09:00 Temperature 97.9 F 97.8 F Pulse Rate 89 97 H Respiratory Rate 17 16 Blood Pressure 103/58 L 102/58 L Pulse Oximetry 100 100 99 Oxygen Delivery Method Room Air Oxygen Flow Rate 0 Narrative Exam Narrative: General:? Patient is a chronically ill-appearing female, with blanket around her head but no obvious acute distress. HEENT:? Normocephalic, atraumatic, extraocular muscles intact, oral pharynx is clear and mucous membranes are moist. Neck: supple and symmetric, trachea is midline, no cervical adenopathy. Negative for JVD Chest:? Normal AP diameter and contour without kyphoscoliosis, no tachypnea, equal chest rise bilaterally. Lungs:? CTA b/l no wheezing rhonchi or rales. Cardio:?RRR no m/r/g. Abdomen: S NT ND. No CVA tenderness. Musculoskeletal:? Muscle strength and tone are equal within normal limits, no deformity. Extremities: No edema or joint effusions. No cyanosis or clubbing. Skin:? Pale,? Warm to touch,dry and intact without rashes, ulcerations or petechiae.? Neuro:? Alert and orientated x3,?slight lethargy and mildly impaired memory recall. strength is slightly weaker on the R, much improved. Reported facial numbness now resolved, R numbness of UE and LE now reportedly resolved, and slight facial asymmetry with dysarthria also slightly improved Psych:? Patient has a mildly disheveled appearance, appropriate affect. Objective Labs Result Diagrams: 12/09/21 05:35 12/09/21 05:35 Labs: Laboratory Results - last 24 hr 12/09/21 12/09/21 05:35 05:35 WBC 7.3 RBC 2.98 L Hgb 8.2 L Hct 25.3 L MCV 84.8 MCH 27.5 MCHC 32.4 RDW 28.6 H Plt Count 536 H Neut % (Auto) 52.1 Lymph % (Auto) 35.0 [place] % (Auto) 10.6 Eos % (Auto) 1.7 L Baso % (Auto) 0.6 Neut # (Auto) 3800 Lymph # (Auto) 2600 [place] # (Auto) 800 Eos # (Auto) 100 Baso # (Auto) 0 RBC Morphology See below Hypochromasia 2+ H Anisocytosis 2+ H Sodium 133 L Potassium 4.1 Chloride 105 Carbon Dioxide 25 BUN 7 Creatinine 0.36 L Estimated GFR > 60.0 BUN/Creatinine Ratio 19.4 Glucose 179 H D Calcium 7.8 L PFSH Medical History Alcohol intoxication Closed hip fracture COVID DKA (diabetic ketoacidoses) DKA (diabetic ketoacidosis) Fibromyalgia Gastroesophageal reflux disease Insulin dependent diabetes mellitus Lupus Osteoporosis Surgical History History of hip surgery Family History Mother Diabetes mellitus Congestive heart failure Pancreatic cancer Father Diabetes mellitus Brother Diabetes mellitus Pancreatitis Sister Drug overdose Social History household members: family Smoking Status: Former smoker alcohol intake: current Discharge Plan Discharge Plan Patient Disposition: Home Health Service Provider Discharge Comment: You were admitted to the hospital with a possible stroke. MRI showed a possible new stroke but it did not correlate with the side of your symptoms. This may have been due to low blood sugars as well. I think you should reduce your lantus to 10 units out of caution for low blood sugars. Please follow up with your PCP or umbrella supervisor. Discharge orders & Medications Prescriptions: New aspirin 81 mg tablet,delayed release (DR/EC) 81 mg PO DAILY 30 Days Qty: 30 0RF atorvastatin 40 mg tablet 40 mg PO BEDTIME 30 Days Qty: 30 0RF nitrofurantoin macrocrystal 100 mg capsule 100 mg PO BID 5 Days Qty: 10 0RF Rx Instructions: must administer with a meal/food Continued insulin aspart U-100 [Novolog Flexpen U-100 Insulin] 100 unit/mL Insulin Pen 0 unit Sub-Q AC Qty: 3 0RF Rx Instructions: 1-3 UNITS TID buspirone 10 mg Tablet 2 tab PO TID 0RF cyclobenzaprine 10 mg Tablet 10 mg PO TID PRN (Reason: pain) 0RF gabapentin 600 mg Tablet 1.5 tab PO TID 0RF acetaminophen 325 mg Tablet 975 mg PO TID PRN (Reason: Pain, Moderate) Qty: 30 0RF ibuprofen 600 mg tablet 600 mg PO Q6H PRN (Reason: pain) Qty: 30 0RF (DME) Test N'Go Test Strip See Rx Instructions .Route Qty: 50 0RF Rx Instructions: As directed Changed insulin glargine 100 unit/mL (3 mL) insulin pen 10 unit SUBCUT DAILY Qty: 0 0RF Follow up/Referrals: Jhonny Evans PA-C [Primary Care Provider] - Diet/Activity/Treatments Diet: Diet as Tolerated and Carb-consistent/Diabetic Activity: As tolerated Visit Report/Discharge Packet Instructions: Urinary Tract Infection, Hypoglycemia, DI for Stroke-Ischemic, Nitrofurantoin Discharge Data Primary Care Provider: Jhonny Evans Quality Stroke Contraindication Not Initiating IV-Tpa: Contraindicated VTE Deep Vein Thrombosis/Pulmonary Embolism Present on Admission: No
[2021-12-09 11:15] VITALS: O2SAT 98
--- NOTE | 2021-12-09 13:03 | CM.DPNOTE ---
Faxed referral packet per [facility] to [facility] and received fax conf. Pratibha Dang CM Assist.
--- NOTE | 2021-12-09 13:32 | PC.NURSE ---
Pt transferred independently from bed to w/c. All belongings gathered. Pt escorted to POV by ASSET MANAGER and pt's sister for discharge. Pt in no distress dc time.
--- NOTE | 2021-12-09 13:52 | CM.DPC ---
DCP Discharge Home with HH Per MD, pt is medically stable to d/c home today and agreeable with HH. Per PT, pt was able to participate in bed mobility and ambulation with a walker CGA 30 feet and recommending home with assist and HH. SW met bedside with pt and her Dtr and explained role and provided the Medicaid LTC application and discussed pt may qualify for [facility] or other supportive LTC support and pt and Dtr very agreeable with completing the tino to see if she qualifies after d/c. SW discussed HH and both very agreeable with HH and no HH preference after getting HH Choice list and SW discussed pt's straight Medicaid may be a barrier to HH accepting referral but updated them that [facility] referral will be made based on Vendor Calendar and provided [facility] brochure and that [facility] likely will call them tomorrow to update if they can accept referral. SW called [facility] with pt information and they are willing to review pt's clinicals and her Medicaid to see if they can accept referral. F2F completed and MD orders. JACQUIE Mckinnon kindly faxing referral along with F2F and orders. Plan: Patient to d/c home today via Dtr POV and [facility] application along with new [facility] referral to review to determine if they can accept pt's straight Medicaid for HH. TERA Miller
--- NOTE | 2021-12-10 12:36 | CM.DPNOTE ---
Late entry: Amarilis from [facility] called this morning saying they cannot accept. patient. I faxed referral packet to [facility] and they will review. Pratibha Dang CM Assist.
--- NOTE | 2021-12-11 14:11 | CM.DPNOTE ---
Called Reynold at [facility] and she said they have accepted this patient, and they will contact her to schedule their visit. Pratibha Dang CM Assist.
== END 2021-12-09 13:00 | disposition home health service (06) | DRG 65 ==
LOC: ED 18:04 → AC 12-08 07:20
PROVIDERS: Admitting Provider Internal Medicine; Emergency Provider Emergency Medicine; PCP Physician Assistant; Referring Provider Emergency Medicine; Visit Provider Internal Medicine
DX: I63.9 Cerebral infarction, unspecified (principal); N30.00 Acute cystitis without hematuria; E87.2 Acidosis; G81.91 Hemiplegia, unspecified affecting right dominant side; E10.649 Type 1 diabetes mellitus with hypoglycemia without coma; R20.0 Anesthesia of skin; R47.1 Dysarthria and anarthria; R29.810 Facial weakness; R29.704 NIHSS score 4; R29.708 NIHSS score 8; M79.7 Fibromyalgia; Z86.73 Personal history of transient ischemic attack (TIA), and cerebral infarction without residual deficits; Z86.16 Personal history of COVID-19; Z87.891 Personal history of nicotine dependence; Z20.822 Contact with and (suspected) exposure to COVID-19
CPT/HCPCS: 36415; 70450; 70496; 70498; 70551; 71045; 80048; 80053; 80061; 80305; 81001; 82550; 82962; 83605; 84443; 84484; 85025; 85610; 85730; 87077; 87086; 87635; 93005; 94760; 97161; 97166; 97535; 99285; 99291; C9803; J0696; J1650; J1815; J2060; Q9967

== ENCOUNTER → 2021-12-11 15:07 | Outpatient (CLI) | payer MEDICAID, OTHER, SELFPAY ==
[2021-12-07 19:12] VITALS: BMI 20.5
[2021-12-11 16:16] LABS: Hemoglobin A1C% w Est Avg Glu 10.5 % (4.0-6.0)
[2021-12-11 16:34] LABS: Cholesterol 163 mg/dL (140-199); HDL Cholesterol 102 mg/dL (40-60); LDL Cholesterol Calculated 45 mg/dL (<100); Triglycerides 81 mg/dL (35-150)
== END ==
PROVIDERS: PCP Physician Assistant; Referring Provider Physician Assistant; Visit Provider Physician Assistant
DX: E10.39 Type 1 diabetes mellitus with other diabetic ophthalmic complication (principal); I63.9 Cerebral infarction, unspecified
CPT/HCPCS: 36415; 80061; 83036

== ENCOUNTER 2022-02-03 14:12 | Emergency (ER) | payer MEDICAID, OTHER, SELFPAY ==
[2021-12-07 19:12] VITALS: BMI 20.5
[2022-02-03] VITALS (19 sets, daily range): BP systolic 106–131; BP diastolic 77–80; PULSE 101–110; RESP 17–26; TEMP 36.9; O2SAT 100; BMI 19.5
--- NOTE | 2022-02-03 14:36 | ED.ABDPAIN ---
HPI - Abdominal Pain <Nadya Griffin, [facility] - Last Filed: 02/03/22 19:24> General Chief Complaint: Abdominal Pain Stated Complaint: Abd pain LLQ and N/V Time Seen by Provider: 02/03/22 14:18 Source: patient and EMS Mode of arrival: EMS History of Present Illness HPI narrative: This is a 46-year-old female with a history of type 1 diabetes, pancreatitis, was seen on 12/07/2021 in the emergency department for right-sided weakness in diagnosed within acute CVA. Patient is chronically ill, endorses nausea and vomiting for the last two days, difficulty keeping anything down, denies any fever, endorses dysuria, urinary frequency, symptoms consistent with her frequent UTIs. She states her blood sugar was in the 300s earlier today, currently in triage it is 230. Patient denies any chest pain, shortness of breath, difficulty breathing, changes to her stool, flank pain, blood in her urine or her stool. Related Data Home Medications Medication Instructions Recorded Confirmed buspirone 10 mg tablet 2 tab PO TID 12/08/18 12/07/21 cyclobenzaprine 10 mg tablet 10 mg PO TID PRN 12/08/18 12/07/21 gabapentin 600 mg tablet 1.5 tab PO TID 12/08/18 12/07/21 Previous Rx's Medication Instructions Recorded insulin aspart U-100 100 unit/mL 0 unit (0 mL) SUB-Q AC #3 unit 02/12/18 (3 mL) subcutaneous pen (Novolog Flexpen U-100 Insulin aspart) acetaminophen 325 mg tablet 975 mg PO TID PRN #30 tab 12/12/18 ibuprofen 600 mg tablet 600 mg PO Q6H PRN #30 tab 03/21/20 blood sugar diagnostic (Test N'Go #50 ea 11/30/21 Test) insulin glargine 100 unit/mL (3 10 unit (0.1 mL) SUBCUT DAILY #0 ml 12/09/21 mL) subcutaneous pen Allergies Allergy/AdvReac Type Severity Reaction Status Date / Time amitriptyline Allergy Intermediate Verified 10/08/21 19:53 sulfasalazine [SULFASALAZINE] Allergy Mild PANCREATITI Verified 10/08/21 19:53 S trazodone AdvReac Intermediate HEART Verified 10/08/21 19:53 PALPITATIONS Review of Systems <ZOFIA Puga - Last Filed: 02/03/22 19:24> Review of Systems Narrative: General: denies fever, chills, malaise, sweats, fatigue Head/Neck: denies headache, neck pain, dizziness Eyes: denies visual changes, eye pain Cardio: denies chest pain, palpitations, edema Respiratory: denies dyspnea, cough, orthopnea GI: denies abdominal pain, nausea, vomiting, or diarrhea : Endorses dysuria, hematuria, and frequency,denies any urinary retention or incontinence MSK: denies joint pain, muscle weakness Skin: denies rash, itching, skin lesions or other Neuro: denies numbness, tingling Patient History <ZOFIA Puga - Last Filed: 02/03/22 19:24> Medical History Alcohol intoxication Closed hip fracture COVID DKA (diabetic ketoacidoses) DKA (diabetic ketoacidosis) Fibromyalgia Gastroesophageal reflux disease Insulin dependent diabetes mellitus Lupus Osteoporosis Surgical History History of hip surgery Family History Mother Diabetes mellitus Congestive heart failure Pancreatic cancer Father Diabetes mellitus Brother Diabetes mellitus Pancreatitis Sister Drug overdose Social History household members: family Smoking Status: Former smoker alcohol intake: current Smoking Status: Former smoker alcohol intake frequency: holidays/special occasions only Substance Use Type: does not use Exam <ZOFIA Puga - Last Filed: 02/03/22 19:24> Narrative Exam Narrative: Independently reviewed vitals signs and nursing notes. General: cooperative, comfortable, in no acute distress, well groomed, chronically ill and frail appearing Head: atraumatic, symmetrical facial expressions Neck: supple Eyes: equal round and reactive, EOMI, conjunctiva normal Nose: nares patent, no rhinorrhea Mouth/Throat: moist mucus membranes Cardiovascular: regular rate and rhythm, no peripheral edema, warm extremities Respiratory: normal effort, able to speak in complete sentences, no audible wheezing, stridor, or rales. No retractions or tachypnea. GI: abdomen soft, mild tenderness over epigastrium and left upper quadrant, nontender to palpation in other quadrants nondistended, no masses, no exquisite tenderness with exam, without guarding or rebound. Able to tolerate p.o. after antiemetics MSK: moves all extremities, neurovascularly intact, no weakness, normal tone Skin: brisk capillary refill, no rash, no erythema Neuro: normal speech and cognition, A&O x3 Psych: mental status is grossly normal, congruent mood, normal affect, pleasant and cooperative Initial Vital Signs Initial Vital Signs: Vital Signs Temperature 98.5 F 02/03/22 14:13 Pulse Rate 103 H 02/03/22 14:13 Respiratory Rate 20 02/03/22 14:13 Blood Pressure 106/78 02/03/22 14:13 Pulse Oximetry 100 02/03/22 14:13 <Kirsten Saldivar DO - Last Filed: 02/11/22 07:30> Initial Vital Signs Initial Vital Signs: Vital Signs Temperature 98.5 F 02/03/22 14:13 Pulse Rate 103 H 02/03/22 14:13 Respiratory Rate 20 02/03/22 14:13 Blood Pressure 106/78 02/03/22 14:13 Pulse Oximetry 100 02/03/22 14:13 Course <ZOFIA Puga - Last Filed: 02/03/22 19:24> Orders Ordered: Discontinued Medications Ceftriaxone Sodium (Ceftriaxone 2,000 Mg Vial) 1,000 mg IV NOW ONE Stop: 02/03/22 17:41 Last Admin: 02/03/22 18:13 Dose: 1,000 mg Documented by: MARQUEZ Hydromorphone HCl (Hydromorphone 0.5 Mg Inj) 0.5 mg IV NOW ONE Stop: 02/03/22 16:06 Last Admin: 02/03/22 16:19 Dose: 0.5 mg Documented by: ANTIONE Sodium Chloride (Normal Saline 0.9%) 1,000 mls @ 1,000 mls/hr IV BOLUS ONE Stop: 02/03/22 15:25 Last Infusion: 02/03/22 18:21 Dose: 0 mls/hr Documented by: Admin: 02/03/22 14:57 Dose: 1,000 mls/hr Documented by: LEIDA Ketorolac Tromethamine (Ketorolac 30 Mg/Ml Vial) 15 mg IV NOW ONE Stop: 02/03/22 16:06 Last Admin: 02/03/22 16:20 Dose: 15 mg Documented by: ANTIONE Metoclopramide HCl (Metoclopramide 10 Mg/2 Ml Inj) 10 mg IV NOW ONE Stop: 02/03/22 16:06 Last Admin: 02/03/22 16:19 Dose: 10 mg Documented by: ANTIONE Ondansetron HCl (Ondansetron 4 Mg/2 Ml Inj) 4 mg IV NOW ONE Stop: 02/03/22 14:27 Last Admin: 02/03/22 14:57 Dose: 4 mg Documented by: LEIDA Potassium Chloride (Potassium Chloride 20 Meq/15 Ml Udc) 40 meq PO NOW ONE Stop: 02/03/22 17:56 Last Admin: 02/03/22 18:14 Dose: 40 meq Documented by: MARQUEZ Vital Signs Vital signs: Vital Signs - 8 hr 02/03/22 14:13 02/03/22 14:16 02/03/22 14:30 Temperature 98.5 F Pulse Rate 103 H 105 H 102 H Respiratory Rate 20 25 H Blood Pressure 106/78 106/78 Pulse Oximetry 100 100 100 02/03/22 15:00 02/03/22 15:03 02/03/22 15:30 Temperature Pulse Rate 101 H 103 H 106 H Respiratory Rate 23 26 H 21 Blood Pressure 109/77 124/79 Pulse Oximetry 100 100 100 02/03/22 15:50 02/03/22 16:00 02/03/22 16:30 Temperature Pulse Rate 110 H 108 H 110 H Respiratory Rate 24 24 17 Blood Pressure 127/80 Pulse Oximetry 100 02/03/22 17:00 02/03/22 17:30 02/03/22 18:00 Temperature Pulse Rate 110 H 106 H 101 H Respiratory Rate 20 23 20 Blood Pressure Pulse Oximetry 100 100 100 02/03/22 18:30 02/03/22 18:45 02/03/22 18:50 Temperature Pulse Rate 107 H 109 H 109 H Respiratory Rate 20 21 22 Blood Pressure Pulse Oximetry 100 100 100 02/03/22 18:58 Temperature Pulse Rate 108 H Respiratory Rate 23 Blood Pressure 131/80 Pulse Oximetry 100 <Kirsten C Janna, DO - Last Filed: 02/11/22 07:30> Orders Ordered: Discontinued Medications Ceftriaxone Sodium (Ceftriaxone 2,000 Mg Vial) 1,000 mg IV NOW ONE Stop: 02/03/22 17:41 Last Admin: 02/03/22 18:13 Dose: 1,000 mg Documented by: MARQUEZ Hydromorphone HCl (Hydromorphone 0.5 Mg Inj) 0.5 mg IV NOW ONE Stop: 02/03/22 16:06 Last Admin: 02/03/22 16:19 Dose: 0.5 mg Documented by: ANTIONE Sodium Chloride (Normal Saline 0.9%) 1,000 mls @ 1,000 mls/hr IV BOLUS ONE Stop: 02/03/22 15:25 Last Infusion: 02/03/22 18:21 Dose: 0 mls/hr Documented by: Admin: 02/03/22 14:57 Dose: 1,000 mls/hr Documented by: LEIDA Ketorolac Tromethamine (Ketorolac 30 Mg/Ml Vial) 15 mg IV NOW ONE Stop: 02/03/22 16:06 Last Admin: 02/03/22 16:20 Dose: 15 mg Documented by: ANTIONE Metoclopramide HCl (Metoclopramide 10 Mg/2 Ml Inj) 10 mg IV NOW ONE Stop: 02/03/22 16:06 Last Admin: 02/03/22 16:19 Dose: 10 mg Documented by: ANTIONE Ondansetron HCl (Ondansetron 4 Mg/2 Ml Inj) 4 mg IV NOW ONE Stop: 02/03/22 14:27 Last Admin: 02/03/22 14:57 Dose: 4 mg Documented by: LEIDA Potassium Chloride (Potassium Chloride 20 Meq/15 Ml Udc) 40 meq PO NOW ONE Stop: 02/03/22 17:56 Last Admin: 02/03/22 18:14 Dose: 40 meq Documented by: MARQUEZ Vital Signs Vital signs: Vital Signs - 8 hr 02/03/22 14:13 02/03/22 14:16 02/03/22 14:30 Temperature 98.5 F Pulse Rate 103 H 105 H 102 H Respiratory Rate 20 25 H Blood Pressure 106/78 106/78 Pulse Oximetry 100 100 100 02/03/22 15:00 02/03/22 15:03 02/03/22 15:30 Temperature Pulse Rate 101 H 103 H 106 H Respiratory Rate 23 26 H 21 Blood Pressure 109/77 124/79 Pulse Oximetry 100 100 100 02/03/22 15:50 02/03/22 16:00 02/03/22 16:30 Temperature Pulse Rate 110 H 108 H 110 H Respiratory Rate 24 24 17 Blood Pressure 127/80 Pulse Oximetry 100 02/03/22 17:00 02/03/22 17:30 02/03/22 18:00 Temperature Pulse Rate 110 H 106 H 101 H Respiratory Rate 20 23 20 Blood Pressure Pulse Oximetry 100 100 100 02/03/22 18:30 02/03/22 18:45 02/03/22 18:50 Temperature Pulse Rate 107 H 109 H 109 H Respiratory Rate 20 21 22 Blood Pressure Pulse Oximetry 100 100 100 02/03/22 18:58 Temperature Pulse Rate 108 H Respiratory Rate 23 Blood Pressure 131/80 Pulse Oximetry 100 MDM - Abdominal Pain <ZOFIA Puga - Last Filed: 02/03/22 19:24> Lab Data Result diagrams: 02/03/22 16:05 02/03/22 16:05 Labs: Lab Results 02/03/22 02/03/22 02/03/22 Range/Units 14:16 15:51 16:05 WBC 7.9 (4.5-11.0) X10^3/uL RBC 3.66 L (4.0-5.2) X10^6/uL Hgb 10.2 L (12.0-16.0) g/dL Hct 32.1 L (36-46) % MCV 87.9 (80-100) fL MCH 27.9 (26-34) PG MCHC 31.8 (30-36) % RDW 16.7 H (11.6-14.8) % Plt Count 630 H (150-400) X10^3/uL Neut % (Auto) 70.1 (50-75) % Lymph % (Auto) 22.8 L (25-40) % [place] % (Auto) 5.5 (3-14) % Eos % (Auto) 1.1 L (2-4) % Baso % (Auto) 0.5 (0-2) % Neut # (Auto) 5600 (0298-0644) /uL Lymph # (Auto) 1800 (8937-3218) /uL [place] # (Auto) 400 (0-900) /uL Eos # (Auto) 100 (0-450) /uL Baso # (Auto) 0 (0-100) /uL Sodium (137-145) mmol/L Potassium (3.4-5.1) mmol/L Chloride (98-107) mmol/L Carbon Dioxide (22-32) mmol/L BUN (7-17) mg/dL Creatinine (0.52-1.04) mg/dL Estimated GFR (>60) mL/min BUN/Creatinine Ratio (6-22) Glucose (70-100) mg/dL Calcium (8.4-10.2) mg/dL Total Bilirubin (0.2-1.3) mg/dL AST (14-36) IU/L ALT (<35) IU/L Alkaline Phosphatase (38-126) U/L Total Protein (6.3-8.2) g/dL Albumin (3.5-5.0) g/dL Globulin (1.7-4.1) g/dL Albumin/Globulin Ratio (1.0-2.8) Lipase (23-300) U/L Urine RBC >100/hpf H (0-5/HPF) Urine WBC >100/hpf H (0-5/HPF) Urine Bacteria Many (>30) H (None) Ur Culture Indicated? Specimen cultured Ketones (<0.27) mmol/L SARS-CoV-2 (PCR) Negative (Negative) 02/03/22 02/03/22 Range/Units 16:05 16:05 WBC (4.5-11.0) X10^3/uL RBC (4.0-5.2) X10^6/uL Hgb (12.0-16.0) g/dL Hct (36-46) % MCV (80-100) fL MCH (26-34) PG MCHC (30-36) % RDW (11.6-14.8) % Plt Count (150-400) X10^3/uL Neut % (Auto) (50-75) % Lymph % (Auto) (25-40) % [place] % (Auto) (3-14) % Eos % (Auto) (2-4) % Baso % (Auto) (0-2) % Neut # (Auto) (6430-3305) /uL Lymph # (Auto) (4486-8081) /uL [place] # (Auto) (0-900) /uL Eos # (Auto) (0-450) /uL Baso # (Auto) (0-100) /uL Sodium 141 (137-145) mmol/L Potassium 3.2 L (3.4-5.1) mmol/L Chloride 118 H (98-107) mmol/L Carbon Dioxide 10 L (22-32) mmol/L BUN 13 (7-17) mg/dL Creatinine 0.43 L (0.52-1.04) mg/dL Estimated GFR > 60 (>60) mL/min BUN/Creatinine Ratio 30.2 H (6-22) Glucose 187 H (70-100) mg/dL Calcium 7.3 L (8.4-10.2) mg/dL Total Bilirubin 0.3 (0.2-1.3) mg/dL AST 16 (14-36) IU/L ALT 14 (<35) IU/L Alkaline Phosphatase 129 H (38-126) U/L Total Protein 7.1 (6.3-8.2) g/dL Albumin 3.6 (3.5-5.0) g/dL Globulin 3.5 (1.7-4.1) g/dL Albumin/Globulin Ratio 1.0 (1.0-2.8) Lipase < 10 L (23-300) U/L Urine RBC (0-5/HPF) Urine WBC (0-5/HPF) Urine Bacteria (None) Ur Culture Indicated? Ketones 0.53 H (<0.27) mmol/L SARS-CoV-2 (PCR) (Negative) Point of care testing: Urine Dip Bedside Urine Glucose 500 mg/dl Bedside Urine Bilirubin - Negative Bedside Urine Ketone - Negative Urine Specific Steward[place] 1.025 Bedside Urine Occult Blood +++ Bedside Urine pH 6.0 Bedside Urine Protein ++ 100 Bedside Urine Urobilinogen - Negative Bedside Urine Nitrite + Positive Bedside Urine Leukocytes + 70 Esterase MDM Narrative Medical decision making narrative: This is 46-year-old female with history of type 1 diabetes who presents to the emergency department complaining of nausea and vomiting and dysuria for the last three days. Patient states that her symptoms improved from her last UTI which grew noah glabrata, she now denies any itching or any symptoms from that urine infection. Patient is nontoxic appearing today, her glucose in triage was 230, she was given Zofran, 1 L of fluids for dehydration after IV was established, and patient stops vomiting. On lab work today, she does not have any leukocytosis, or left shift, she has hypokalemia with a potassium of 3.2, this was replaced with 40 mEq of liquid p.o. potassium, and her creatinine is 0.43, GFR is over 60, glucose on her lab work was 187, calcium was 7.3, alk-phos was mildly elevated at 129 but consistent with her priors, no elevation to her liver enzymes, lipase less than 10, urine is pending for culture, this had RBCs, WBCs, and many bacteria. Patient was treated with cephalexin b.i.d. for seven days due to recent antibiotic for UTI, will follow-up on urine culture. Patient does have thrombocytopenia but this is standard for her, today a platelet count was 630, on priors she has been in the thousands. Was given strict return precautions. No peritoneal signs on abdominal exam. Patient remains p.o. tolerant. Serial abdominal exam without increase in abdominal pain. Given history and exam, low suspicion for acute abdominal process, such as acute cholecystitis, pancreatitis, perforated viscus, atypical appendicitis, colitis, diverticulitis or torsion. Extensive conversation about ER return precautions and need for close follow-up. Patient is appropriate and amenable to discharge home. Vital signs are stable on repeat examination is unremarkable. Patient has been informed of results. Patient has been given strict return to ER precautions for any new or worsening symptoms. Patient understands to follow up closely with outpatient providers as instructed. Patient understands plan and agrees to discharge home. All questions and concerns answered at this time. <Kirsten Saldivar, DO - Last Filed: 02/11/22 07:30> Lab Data Labs: Lab Results 02/03/22 02/03/22 02/03/22 Range/Units 14:16 15:51 16:05 WBC 7.9 (4.5-11.0) X10^3/uL RBC 3.66 L (4.0-5.2) X10^6/uL Hgb 10.2 L (12.0-16.0) g/dL Hct 32.1 L (36-46) % MCV 87.9 (80-100) fL MCH 27.9 (26-34) PG MCHC 31.8 (30-36) % RDW 16.7 H (11.6-14.8) % Plt Count 630 H (150-400) X10^3/uL Neut % (Auto) 70.1 (50-75) % Lymph % (Auto) 22.8 L (25-40) % [place] % (Auto) 5.5 (3-14) % Eos % (Auto) 1.1 L (2-4) % Baso % (Auto) 0.5 (0-2) % Neut # (Auto) 5600 (9999-8227) /uL Lymph # (Auto) 1800 (1551-4601) /uL [place] # (Auto) 400 (0-900) /uL Eos # (Auto) 100 (0-450) /uL Baso # (Auto) 0 (0-100) /uL Sodium (137-145) mmol/L Potassium (3.4-5.1) mmol/L Chloride (98-107) mmol/L Carbon Dioxide (22-32) mmol/L BUN (7-17) mg/dL Creatinine (0.52-1.04) mg/dL Estimated GFR (>60) mL/min BUN/Creatinine Ratio (6-22) Glucose (70-100) mg/dL Calcium (8.4-10.2) mg/dL Total Bilirubin (0.2-1.3) mg/dL AST (14-36) IU/L ALT (<35) IU/L Alkaline Phosphatase (38-126) U/L Total Protein (6.3-8.2) g/dL Albumin (3.5-5.0) g/dL Globulin (1.7-4.1) g/dL Albumin/Globulin Ratio (1.0-2.8) Lipase (23-300) U/L Urine RBC >100/hpf H (0-5/HPF) Urine WBC >100/hpf H (0-5/HPF) Urine Bacteria Many (>30) H (None) Ur Culture Indicated? Specimen cultured Ketones (<0.27) mmol/L SARS-CoV-2 (PCR) Negative (Negative) 02/03/22 02/03/22 Range/Units 16:05 16:05 WBC (4.5-11.0) X10^3/uL RBC (4.0-5.2) X10^6/uL Hgb (12.0-16.0) g/dL Hct (36-46) % MCV (80-100) fL MCH (26-34) PG MCHC (30-36) % RDW (11.6-14.8) % Plt Count (150-400) X10^3/uL Neut % (Auto) (50-75) % Lymph % (Auto) (25-40) % [place] % (Auto) (3-14) % Eos % (Auto) (2-4) % Baso % (Auto) (0-2) % Neut # (Auto) (8266-2579) /uL Lymph # (Auto) (6925-5748) /uL [place] # (Auto) (0-900) /uL Eos # (Auto) (0-450) /uL Baso # (Auto) (0-100) /uL Sodium 141 (137-145) mmol/L Potassium 3.2 L (3.4-5.1) mmol/L Chloride 118 H (98-107) mmol/L Carbon Dioxide 10 L (22-32) mmol/L BUN 13 (7-17) mg/dL Creatinine 0.43 L (0.52-1.04) mg/dL Estimated GFR > 60 (>60) mL/min BUN/Creatinine Ratio 30.2 H (6-22) Glucose 187 H (70-100) mg/dL Calcium 7.3 L (8.4-10.2) mg/dL Total Bilirubin 0.3 (0.2-1.3) mg/dL AST 16 (14-36) IU/L ALT 14 (<35) IU/L Alkaline Phosphatase 129 H (38-126) U/L Total Protein 7.1 (6.3-8.2) g/dL Albumin 3.6 (3.5-5.0) g/dL Globulin 3.5 (1.7-4.1) g/dL Albumin/Globulin Ratio 1.0 (1.0-2.8) Lipase < 10 L (23-300) U/L Urine RBC (0-5/HPF) Urine WBC (0-5/HPF) Urine Bacteria (None) Ur Culture Indicated? Ketones 0.53 H (<0.27) mmol/L SARS-CoV-2 (PCR) (Negative) Point of care testing: Urine Dip Bedside Urine Glucose 500 mg/dl Bedside Urine Bilirubin - Negative Bedside Urine Ketone - Negative Urine Specific [place] 1.025 Bedside Urine Occult Blood +++ Bedside Urine pH 6.0 Bedside Urine Protein ++ 100 Bedside Urine Urobilinogen - Negative Bedside Urine Nitrite + Positive Bedside Urine Leukocytes + 70 Esterase Discharge Plan Departure Patient Disposition: Home Clinical Impression: UTI (urinary tract infection) Qualifiers: Urinary tract infection type: acute cystitis Hematuria presence: with hematuria Qualified Code(s): N30.01 - Acute cystitis with hematuria Instructions: DI for Urinary Tract Infection (UTI) Activity Restrictions/Additional Instructions: *You have been diagnosed with a urinary tract infection, please continue to take your insulin, Zofran, and other medications as prescribed and as needed, please take this antibiotic twice a day for the next seven days, please focus on hydration, and if your feeling nauseated, please treat her nausea and then wait 15 minutes and then hydrate. Please follow-up with your regular doctor, return to the emergency department to be of any worsening of your symptoms or if you are unable to keep anything down. I hope you feel better soon. *What to do: *Please continue to take your regular medications as directed. [ x] New medication prescriptions sent to your pharmacy: [ [facility]] [ ] New medication written as a paper prescription [ ] No new medications given *Please follow up with your primary care provider in 2-3 days, call for an appointment. Let them know you were seen in the Emergency Department and that we asked that you be seen for follow-up. We will electronically transmit a record of today's note if your PCP is in our system *If you do not have a primary care provider please contact [phone] to establish care with one of the [facility] primary care providers. *Return to Emergency Department if you should have any new, worsening or concerning symptoms, such as [fever greater than 101F, chills, worsening pain, persistent vomiting or other bothersome symptoms] Prescriptions: No Action insulin aspart U-100 [Novolog Flexpen U-100 Insulin] 100 unit/mL Insulin Pen 0 unit Sub-Q AC Qty: 3 0RF Rx Instructions: 1-3 UNITS TID buspirone 10 mg Tablet 2 tab PO TID 0RF cyclobenzaprine 10 mg Tablet 10 mg PO TID PRN (Reason: pain) 0RF gabapentin 600 mg Tablet 1.5 tab PO TID 0RF acetaminophen 325 mg Tablet 975 mg PO TID PRN (Reason: Pain, Moderate) Qty: 30 0RF insulin glargine 100 unit/mL (3 mL) insulin pen 10 unit SUBCUT DAILY Qty: 0 0RF ibuprofen 600 mg tablet 600 mg PO Q6H PRN (Reason: pain) Qty: 30 0RF (DME) Test N'Go Test Strip See Rx Instructions .Route Qty: 50 0RF Rx Instructions: As directed Referrals: Jhonny Evans PA-C [Primary Care Provider] - <Kirsten Saldivar, - Last Filed: 02/11/22 07:30> Cosign ED Attending Reeseature Attestation: I was immediately available in the department for consultation. Documentation has been reviewed.
[2022-02-03] MEDS: SODIUM CHLORIDE 0.9% 1,000 ML 1000 ML IV (14:57)
[2022-02-03] MEDS: ONDANSETRON 4 MG/2 ML INJ IV (14:57)
[2022-02-03 15:00] LABS: COVID19 -Nasal RAPID Negative (Negative)
[2022-02-03 16:17] LABS: Add Manual Diff / Slide Review NO; Basophils Absolute Auto 0 /uL (0-100); Basophils Percent Auto 0.5 % (0-2); Eosinophils Absolute Auto 100 /uL (0-450); Eosinophils Percent Auto 1.1 % (2-4); Hematocrit 32.1 % (36-46); Hemoglobin 10.2 g/dL (12.0-16.0); Lymphocytes Absolute Auto 1800 /uL (1100-4500); Lymphocytes Percent Auto 22.8 % (25-40); Mean Corpuscular HGB Conc 31.8 % (30-36); Mean Corpuscular Hemoglobin 27.9 PG (26-34); Mean Corpuscular Volume 87.9 fL (80-100); Monocytes Absolute Auto 400 /uL (0-900); Monocytes Percent Auto 5.5 % (3-14); Neutrophils Absolute Auto 5600 /uL (1500-7000); Neutrophils Percent Auto 70.1 % (50-75); Platelet Count 630 X10^3/uL (150-400); Red Blood Cell Count 3.66 X10^6/uL (4.0-5.2); Red Cell Distribution Width 16.7 % (11.6-14.8); White Blood Cell Count 7.9 X10^3/uL (4.5-11.0)
[2022-02-03] MEDS: HYDROMORPHONE 0.5 MG INJ IV (16:19)
[2022-02-03] MEDS: METOCLOPRAMIDE 10 MG/2 ML INJ IV (16:19)
[2022-02-03] MEDS: KETOROLAC 30 MG/ML VIAL 15 MG IV (16:20)
[2022-02-03 16:34] LABS: Alanine Aminotransferase 14 IU/L (<35); Albumin 3.6 g/dL (3.5-5.0); Alkaline Phosphatase 129 U/L (38-126); Aspartate Aminotransferase 16 IU/L (14-36); BUN Creatinine Ratio 30.2 (6-22); Bilirubin Total 0.3 mg/dL (0.2-1.3); Blood Urea Nitrogen 13 mg/dL (7-17); Calcium 7.3 mg/dL (8.4-10.2); Carbon Dioxide 10 mmol/L (22-32); Chloride 118 mmol/L (98-107); Estimated Glomerular Filt Rate > 60 mL/min (>60); Globulin 3.5 g/dL (1.7-4.1); Glucose 187 mg/dL (70-100); HEMOLYSIS < 15 (0-50); Potassium 3.2 mmol/L (3.4-5.1); Sodium 141 mmol/L (137-145); Total Protein 7.1 g/dL (6.3-8.2)
[2022-02-03 16:38] LABS: Lipase < 10 U/L (23-300)
[2022-02-03 16:40] LABS: Bacteria Urine Many (>30); Culture Indicated Urine Specimen Cultured; RBC Urine >100/HPF (0-5/HPF); WBC Urine >100/HPF (0-5/HPF)
[2022-02-03 16:41] LABS: Ketones (Beta-Hydroxybutyrate) 0.53 mmol/L (<0.27)
[2022-02-03] MEDS: cefTRIAXone 2,000 MG VIAL 1000 MG IV (18:13)
[2022-02-03] MEDS: POTASSIUM CHLORIDE 20 MEQ/15 ML UDC 40 MEQ PO (18:14)
== END 2022-02-03 20:10 | disposition home or self-care (01) ==
PROVIDERS: Emergency Medicine; Emergency Provider Nurse Practitioner Critical Care Medicine; PCP Physician Assistant
DX: N30.01 Acute cystitis with hematuria (principal); R11.2 Nausea with vomiting, unspecified; Z20.822 Contact with and (suspected) exposure to COVID-19
CPT/HCPCS: 80053; 81003; 81015; 82009; 83690; 85025; 87077; 87086; 87186; 87635; 93005; 93010; 96361; 96374; 96375; 99284; C9803; J0696; J1170; J1885; J2405; J2765

== ENCOUNTER 2022-02-12 01:43 | Inpatient (IN) | payer MEDICAID, OTHER, SELFPAY ==
[2021-12-07 19:12] VITALS: BMI 20.5
[2022-02-12] VITALS (75 sets, daily range): BP systolic 74–142; BP diastolic 44–81; PULSE 57–121; RESP 17–49; TEMP 36.2–37; O2SAT 95–100; BMI 21.4
--- NOTE | 2022-02-12 01:48 | ED.GENADULT ---
HPI - General Adult General Chief complaint: Weakness Stated complaint: UTI, hypotension Time Seen by Provider: 02/12/22 01:48 Source: patient and EMS Mode of arrival: EMS Limitations: no limitations History of Present Illness HPI narrative: Patient is a 46-year-old female. A known insulin-dependent diabetic with other chronic medical issues. She was seen here in the emergency department approximately 10 days ago where she was diagnosed with a urinary tract infection. A subsequent culture from that visit did show a pansensitive E coli with greater than 100,000 colony-forming units. Review of that note shows that the patient was given Rocephin here in the emergency department however it is not clear as to whether not she was discharged home with any antibiotics. She states that since this time she has been taking antibiotics at home but she does not know the name of them. Since she was here in the emergency department 10 days ago she has declined in her health and become very weak. She has fallen several times to include earlier this evening. He EMS was called because of these falls in the weakness. Upon their arrival they found the patient alert and oriented however was hypotensive with a systolic blood pressure in the 60s. She is also tachycardic. Had a difficult time starting an IV however they were able to obtain a left peripheral IV. She was started on fluids and was receiving epinephrine IV upon arrival. Here in the ER patient denies headache. Denies vision changes. Denies chest pain. Denies shortness of breath. Denies abdominal pain. No nausea vomiting. No urinary symptoms. No change in bowel habits. No rashes. She does endorse being very weak. Related Data Home Medications Medication Instructions Recorded Confirmed buspirone 10 mg tablet 2 tab PO TID 12/08/18 12/07/21 cyclobenzaprine 10 mg tablet 10 mg PO TID PRN 12/08/18 12/07/21 gabapentin 600 mg tablet 1.5 tab PO TID 12/08/18 12/07/21 Previous Rx's Medication Instructions Recorded insulin aspart U-100 100 unit/mL 0 unit (0 mL) SUB-Q AC #3 unit 02/12/18 (3 mL) subcutaneous pen (Novolog Flexpen U-100 Insulin aspart) acetaminophen 325 mg tablet 975 mg PO TID PRN #30 tab 12/12/18 ibuprofen 600 mg tablet 600 mg PO Q6H PRN #30 tab 03/21/20 blood sugar diagnostic (Test N'Go #50 ea 11/30/21 Test) insulin glargine 100 unit/mL (3 10 unit (0.1 mL) SUBCUT DAILY #0 ml 12/09/21 mL) subcutaneous pen Allergies Allergy/AdvReac Type Severity Reaction Status Date / Time amitriptyline Allergy Intermediate Verified 10/08/21 19:53 sulfasalazine [SULFASALAZINE] Allergy Mild PANCREATITI Verified 10/08/21 19:53 S trazodone AdvReac Intermediate HEART Verified 10/08/21 19:53 PALPITATIONS Review of Systems Review of Systems ROS Unobtainable: All systems reviewed & are unremarkable except as noted in HPI and below Patient History Medical History Alcohol intoxication Closed hip fracture COVID DKA (diabetic ketoacidoses) DKA (diabetic ketoacidosis) Fibromyalgia Gastroesophageal reflux disease Insulin dependent diabetes mellitus Lupus Osteoporosis Surgical History History of hip surgery Family History Mother Diabetes mellitus Congestive heart failure Pancreatic cancer Father Diabetes mellitus Brother Diabetes mellitus Pancreatitis Sister Drug overdose Social History household members: family Smoking Status: Former smoker alcohol intake: current Smoking Status: Former smoker alcohol intake frequency: holidays/special occasions only Substance Use Type: does not use Exam Initial Vital Signs Initial Vital Signs: Vital Signs Pulse Rate 57 L 02/12/22 01:45 Blood Pressure 82/53 L 02/12/22 01:45 Const General: cooperative and frail appearing [facility] Head: normal to inspection and normocephalic Eyes General: Yes appearance normal, both eyes and all related structures Chest Chest: normal inspection of the chest and No crepitus Resp Effort & Inspection: normal respiratory effort Auscultation: clear to auscultation bilaterally Cardio Rate: tachycardic Rhythm: regular rhythm GI Inspection: normal to inspection Palpation: soft, No firm and No tender Skin General: no rashes or lesions noted Neuro General: patient alert, patient awake, patient oriented x3 and moves all extremities Cognition: normal cognition Speech: speech normal Extrem General: edema Psych Appearance: grossly normal and well kempt Mental Status: mental status grossly normal Procedures Central Line Placement Right IJ: Time Out Performed: Yes Patient Placed on Monitor/Pulse Ox: Yes MD Prep: mask, gown and gloves Central Line Prep: Chlorhexidine scrub Local Anesthetic: lidocaine 1% Amount of anesthesia used (mL): 3 Ultrasound Used for Placement: Yes Central Line Lumen Inserted: triple Post Procedure: sutured in place, good blood return, all ports aspirated, flushed, capped and sterile dressing applied Post Procedure X-Ray: tip of catheter in good position and no pneumothorax seen Patient Tolerated Procedure: Well and No complications Complications: none Scores GCS Jada coma scale eye opening: Spontaneous Jada coma scale verbal response: Orientated Jada coma scale motor response: Obey commands Jada coma scale total score: 15 Course Orders Ordered: ED Orders 02/12/22 01:49 XR chest 1V Stat Urinalysis and Microscopic Stat Urine Culture Stat 02/12/22 01:50 EKG-12 Lead Stat 02/12/22 02:20 Venous Blood Gas Stat 02/12/22 02:25 Blood Culture Stat Complete Blood Count AUTO DIFF Stat Comprehensive Metabolic Panel Stat Ethanol (ETOH) Stat Ketones (Beta-Hydroxybutyrate) Stat Lactate (Lactic Acid) Stat Lipase Stat Magnesium Stat Phosphorous Stat Test Serum,Qual Stat Procalcitonin Stat Troponin & CK Cardiac Panel Stat 02/12/22 03:30 COVID19 -Nasal RAPID/Pre-Proc Stat Sodium Chloride (Normal Saline 0.9%) 1,620 mls @ 540 mls/hr 30 ml/kg infuse over 3 hr (1620 ml) IV NOW ONE Stop: 02/12/22 04:53 Last Infusion: 02/12/22 03:57 Dose: 540 mls/hr Documented by: Admin: 02/12/22 02:06 Dose: 540 mls/hr Documented by: PAULETTEHORUSSELL NOREPINEPHRINE BITARTRATE/D5W (Levophed) 4 mg in 250 mls @ 10.125 mls/hr IV TITRATE JOSE ANTONIO Last Infusion: 02/12/22 03:56 Dose: 0.05 mcg/kg/min, 10.125 mls/hr Documented by: Admin: 02/12/22 02:00 Dose: 0.05 mcg/kg/min, 10.125 mls/hr Documented by: DULCE POTASSIUM CHLORIDE IN WATER (Potassium Cl 10 Meq/100 Ml Yelena) 10 meq in 100 mls @ 100 mls/hr IV Q1H JOSE ANTONIO Stop: 02/12/22 06:59 Last Infusion: 02/12/22 03:56 Dose: 0 mls/hr Documented by: Infusion: 02/12/22 03:26 Dose: 200 mls/hr Documented by: Admin: 02/12/22 03:22 Dose: 100 mls/hr Documented by: LAM Discontinued Medications Ceftriaxone Sodium 1,000 mg/ (Sodium Chloride) 100 mls @ 200 mls/hr IV NOW ONE Stop: 02/12/22 01:54 Last Infusion: 02/12/22 02:15 Dose: 0 mls/hr Documented by: Admin: 02/12/22 01:50 Dose: 200 mls/hr Documented by: LAM Vancomycin HCl (Vancomycin) 1,000 mg in 200 mls @ 200 mls/hr IV NOW ONE Stop: 02/12/22 02:52 Last Infusion: 02/12/22 03:20 Dose: 0 mls/hr Documented by: Admin: 02/12/22 02:12 Dose: 200 mls/hr Documented by: LAM Insulin Glargine (Insulin Glargine 100 Unit/Ml 3ml Pen) 10 unit SUBCUT NOW ONE Stop: 02/12/22 03:07 Last Admin: 02/12/22 03:22 Dose: 10 unit Documented by: LAM Cosigned by: AUGIE Norepinephrine Bitartrate (Norepinephrine 4 Mg/4 Ml Vial) 5 mg IV CONT JOSE ANTONIO Vital Signs Vital signs: Vital Signs - 8 hr 02/12/22 01:45 02/12/22 01:50 02/12/22 01:52 Temperature 97.5 F L Pulse Rate 57 L 109 H 108 H Respiratory Rate 30 H 19 Blood Pressure 82/53 L 79/50 L 82/53 L Pulse Oximetry 95 02/12/22 01:55 02/12/22 01:56 02/12/22 01:58 Temperature Pulse Rate 111 H 111 H 113 H Respiratory Rate 28 H 30 H 29 H Blood Pressure 87/51 L 87/51 L Pulse Oximetry 02/12/22 02:00 02/12/22 02:03 02/12/22 02:05 Temperature Pulse Rate 109 H 105 H 104 H Respiratory Rate 28 H 28 H 26 H Blood Pressure 80/51 L 78/49 L 80/51 L Pulse Oximetry 100 100 100 02/12/22 02:10 02/12/22 02:14 02/12/22 02:15 Temperature Pulse Rate 109 H 108 H 108 H Respiratory Rate 24 28 H 28 H Blood Pressure 85/50 L 86/51 L 88/53 L Pulse Oximetry 100 100 100 02/12/22 02:20 02/12/22 02:25 02/12/22 02:30 Temperature Pulse Rate 111 H 113 H 112 H Respiratory Rate 30 H 29 H 26 H Blood Pressure 89/51 L 90/53 L 84/54 L Pulse Oximetry 100 100 100 02/12/22 02:35 02/12/22 02:40 02/12/22 02:45 Temperature Pulse Rate 112 H 115 H 115 H Respiratory Rate 27 H 27 H 29 H Blood Pressure 112/70 142/81 H 139/81 Pulse Oximetry 100 100 100 02/12/22 02:50 02/12/22 02:55 02/12/22 03:00 Temperature Pulse Rate 116 H 114 H 109 H Respiratory Rate 24 26 H 28 H Blood Pressure 139/79 111/70 99/62 Pulse Oximetry 100 100 100 02/12/22 03:05 02/12/22 03:10 02/12/22 03:15 Temperature Pulse Rate 111 H 110 H 107 H Respiratory Rate 26 H 23 23 Blood Pressure 104/61 103/60 100/57 L Pulse Oximetry 100 100 100 02/12/22 03:20 02/12/22 03:25 02/12/22 03:30 Temperature Pulse Rate 104 H 108 H 105 H Respiratory Rate 26 H 20 23 Blood Pressure 95/58 L 105/61 98/55 L Pulse Oximetry 100 100 100 Medical Decision Making Medical Records Medical records reviewed: Yes I reviewed the patient's medical records. Lab Data Lab results reviewed: Yes I reviewed the patient's lab results. Result diagrams: 02/12/22 02:25 02/12/22 02:25 Labs: Lab Results 02/12/22 02/12/22 02/12/22 Range/Units 02:20 02:25 02:25 WBC 44.5 H* (4.5-11.0) X10^3/uL RBC 2.93 L (4.0-5.2) X10^6/uL Hgb 8.0 L (12.0-16.0) g/dL Hct 25.9 L (36-46) % MCV 88.4 (80-100) fL MCH 27.1 (26-34) PG MCHC 30.6 (30-36) % RDW 17.6 H (11.6-14.8) % Plt Count 550 H (150-400) X10^3/uL Neut % (Auto) Not Reportable Lymph % (Auto) Not Reportable [place] % (Auto) Not Reportable Eos % (Auto) Not Reportable Baso % (Auto) Not Reportable Lymph # (Auto) Not Reportable [place] # (Auto) Not Reportable Baso # (Auto) Not Reportable Total Counted 100 Seg Neutrophils % 87.0 H (38-70) % Band Neutrophils % 4.0 (3-7) % Lymphocytes % (Manual) 5.0 L (25-45) % Monocytes % (Manual) 4.0 (2-11) % Neutrophils # (Manual) 57800 H (8292-7813) /uL RBC Morphology See below Hypochromasia 1+ H Anisocytosis 2+ H VBG pH 7.21 L (7.33-7.43) VBG pCO2 28.8 L (45-50) mmHg VBG pO2 43 (35-45) mmHg VBG HCO3 11 L (23-28) mmol/L VBG Total CO2 12 L (24-29) mmol/L VBG O2 Saturation 69 L (70-75) % VBG Base Excess -17.0 L (0-4) mmol/L Sodium 126 L D (137-145) mmol/L Potassium 2.9 L (3.4-5.1) mmol/L Chloride 105 (98-107) mmol/L Carbon Dioxide 11 L (22-32) mmol/L BUN 27 H (7-17) mg/dL Creatinine 1.01 (0.52-1.04) mg/dL Estimated GFR > 60 (>60) mL/min BUN/Creatinine Ratio 26.7 H (6-22) Glucose 389 H D (70-100) mg/dL Lactate (0.7-2.1) mmol/L Calcium 8.1 L (8.4-10.2) mg/dL Phosphorus 2.3 L (2.5-4.5) mg/dL Magnesium 1.7 (1.6-2.3) mg/dL Total Bilirubin 0.3 (0.2-1.3) mg/dL AST 15 (14-36) IU/L ALT 14 (<35) IU/L Alkaline Phosphatase 191 H (38-126) U/L Total Creatine Kinase < 20 L (30-135) U/L CK-MB (CK-2) TNP CK-MB (CK-2) Rel Index TNP Troponin I < 0.012 (0.01-0.034) ng/mL Total Protein 5.6 L (6.3-8.2) g/dL Albumin 2.6 L (3.5-5.0) g/dL Globulin 3.0 (1.7-4.1) g/dL Albumin/Globulin Ratio 0.9 L (1.0-2.8) Lipase < 10 L (23-300) U/L Procalcitonin 8.75 H (<0.5) ng/mL Serum , Qual (Negative) Ethyl Alcohol < 10 ( - 10) mg/dL Ketones 1.33 H (<0.27) mmol/L SARS-CoV-2 (PCR) (Negative) 02/12/22 02/12/22 02/12/22 Range/Units 02:25 02:25 03:30 WBC (4.5-11.0) X10^3/uL RBC (4.0-5.2) X10^6/uL Hgb (12.0-16.0) g/dL Hct (36-46) % MCV (80-100) fL MCH (26-34) PG MCHC (30-36) % RDW (11.6-14.8) % Plt Count (150-400) X10^3/uL Neut % (Auto) Lymph % (Auto) [place] % (Auto) Eos % (Auto) Baso % (Auto) Lymph # (Auto) [place] # (Auto) Baso # (Auto) Total Counted Seg Neutrophils % (38-70) % Band Neutrophils % (3-7) % Lymphocytes % (Manual) (25-45) % Monocytes % (Manual) (2-11) % Neutrophils # (Manual) (9259-1076) /uL RBC Morphology Hypochromasia Anisocytosis VBG pH (7.33-7.43) VBG pCO2 (45-50) mmHg VBG pO2 (35-45) mmHg VBG HCO3 (23-28) mmol/L VBG Total CO2 (24-29) mmol/L VBG O2 Saturation (70-75) % VBG Base Excess (0-4) mmol/L Sodium (137-145) mmol/L Potassium (3.4-5.1) mmol/L Chloride (98-107) mmol/L Carbon Dioxide (22-32) mmol/L BUN (7-17) mg/dL Creatinine (0.52-1.04) mg/dL Estimated GFR (>60) mL/min BUN/Creatinine Ratio (6-22) Glucose (70-100) mg/dL Lactate 0.6 L (0.7-2.1) mmol/L Calcium (8.4-10.2) mg/dL Phosphorus (2.5-4.5) mg/dL Magnesium (1.6-2.3) mg/dL Total Bilirubin (0.2-1.3) mg/dL AST (14-36) IU/L ALT (<35) IU/L Alkaline Phosphatase (38-126) U/L Total Creatine Kinase (30-135) U/L CK-MB (CK-2) CK-MB (CK-2) Rel Index Troponin I (0.01-0.034) ng/mL Total Protein (6.3-8.2) g/dL Albumin (3.5-5.0) g/dL Globulin (1.7-4.1) g/dL Albumin/Globulin Ratio (1.0-2.8) Lipase (23-300) U/L Procalcitonin (<0.5) ng/mL Serum , Qual Negative (Negative) Ethyl Alcohol ( - 10) mg/dL Ketones (<0.27) mmol/L SARS-CoV-2 (PCR) Negative (Negative) Imaging Data Chest x-ray: Radiologist's Impression: Right IJ CVC tip projected at the level of the superior atrial caval junction ECG Data Attestation: I personally reviewed and interpreted this ECG as follows: Prior ECG tracings: not available for review Interpretation: Sinus tachycardia Ventricular rate 113 Normal QRS Normal QTC No ST T wave changes MDM Narrative Medical decision making narrative: Patient has maintain her mental status since arrival. She has no signs of trauma. Other than being fatigued has no other complaints. Patient does have leukocytosis and given her recent urinary tract infection diagnosis there was concern about sepsis. Review the note does show a positive urine culture with pansensitive E coli. Blood cultures were obtained. Antibiotics administered. 30 cc/kilogram of fluid administered. Right IJ was placed for access. Chest x-ray shows the tip to be in a good position with no signs of pneumothorax and no signs of pneumonia. Labs result and hypokalemia which replacement was started here in the ER. Patient was switched from the epinephrine started by EMS to Levophed. Along with the fluids this did increase her blood pressure to a systolic greater than 90 and MAP greater than 65. Patient is also acidotic with a pH of 7.2. Is hyponatremic however the corrected sodium for her level of hyperglycemia is 131. Patient does not have an elevation in her anion gap which is 10. I did discuss the case with Dr. Lemus. He recommended given her non anion gap metabolic acidosis that we should just give her her normal long-acting insulin and hold on an insulin drip for now. We will admit the patient for further evaluation and treatment. Critical Care Time Critical Care Time Critical Care Time: Yes Total Critical Care Time: 40 Attestation: The high probability of a clinically significant, sudden or life threatening deterioration of the cardiovascular, respiratory, endocrine system(s) required my full and direct attention, intervention and personal management. The aggregate critical care time was [40] minutes. This time is in addition to time spent performing reported procedures but includes the following: [x] Data Review and interpretation [x] Patient assessment and monitoring of vital signs [x] Documentation [x] Medication orders and management Discharge Plan Departure Patient Disposition: Admitted As Inpatient Clinical Impression: Ketoacidosis, Hyperglycemia, Urinary tract infection, Hypokalemia, Hypotension
--- NOTE | 2022-02-12 01:49 | DI.RAD.S_ITS ---
PROCEDURE: XR CHEST 1V INDICATIONS: eval for PNA TECHNIQUE: One view of the chest was acquired. COMPARISON: [facility], CR, XR CHEST FOR PICC 1V, 12/08/2021, 10:17. [facility], CR, XR CHEST 1V, 12/07/2021, 14:46. FINDINGS: Surgical changes and devices: There is a right side central line with the tip projecting to the area of SVC. Lungs and pleura: Lungs are clear. No pleural effusions or pneumothorax. Mediastinum: Mediastinal contours appear normal. Heart size is normal. Bones and chest wall: No suspicious bony lesions. Overlying soft tissues appear unremarkable. IMPRESSION: 1. The tip of the right-sided central line projects to the area of SVC. No significant discrepancy with the mine shifter radiology preliminary report. Dictated by: Ina Michel M.D. on 02/12/2022 at 8:21 Approved by: Ina Michel M.D. on 02/12/2022 at 8:22
[2022-02-12] MEDS: cefTRIAXone 1,000 MG in SODIUM CHLORIDE 0.9% 100 ML 200 MG IV (01:50)
[2022-02-12] MEDS: NOREPINEPHRINE BITARTRATE/D5W 4 MG/250 ML PLAST..BAG 10.125 MG IV (02:00)
[2022-02-12] MEDS: SODIUM CHLORIDE 0.9% 1,620 ML 540 ML IV (02:06)
[2022-02-12] MEDS: VANCOMYCIN 1,000 MG/200 ML PIGGYBACK 200 MG IV ×2 (02:12→12:09)
[2022-02-12 02:35] LABS: PCO2 VBG 28.8 mmHg (45-50); PO2 VBG 43 mmHg (35-45); pH VBG 7.21 (7.33-7.43)
[2022-02-12 02:36] LABS: HCO3 VBG 11 mmol/L (23-28); Total CO2 VBG 12 mmol/L (24-29)
[2022-02-12 02:37] LABS: Oxygen Saturation VBG 69 % (70-75)
[2022-02-12 02:50] LABS: Alanine Aminotransferase 14 IU/L (<35); Albumin 2.6 g/dL (3.5-5.0); Albumin Globulin Ratio 0.9 (1.0-2.8); Alkaline Phosphatase 191 U/L (38-126); Aspartate Aminotransferase 15 IU/L (14-36); BUN Creatinine Ratio 26.7 (6-22); Bilirubin Total 0.3 mg/dL (0.2-1.3); Blood Urea Nitrogen 27 mg/dL (7-17); Calcium 8.1 mg/dL (8.4-10.2); Carbon Dioxide 11 mmol/L (22-32); Chloride 105 mmol/L (98-107); Creatine Kinase < 20 U/L (30-135); Estimated Glomerular Filt Rate > 60 mL/min (>60); Glucose 389 mg/dL (70-100); HEMOLYSIS < 15 (0-50); Magnesium 1.7 mg/dL (1.6-2.3); Phosphorous 2.3 mg/dL (2.5-4.5); Potassium 2.9 mmol/L (3.4-5.1); Sodium 126 mmol/L (137-145); Total Protein 5.6 g/dL (6.3-8.2)
[2022-02-12 02:51] LABS: Lactate (Lactic Acid) 0.6 mmol/L (0.7-2.1)
[2022-02-12 02:52] LABS: Hematocrit 25.9 % (36-46); Mean Corpuscular HGB Conc 30.6 % (30-36); Mean Corpuscular Hemoglobin 27.1 PG (26-34); Mean Corpuscular Volume 88.4 fL (80-100); Platelet Count 550 X10^3/uL (150-400); Red Blood Cell Count 2.93 X10^6/uL (4.0-5.2); Red Cell Distribution Width 17.6 % (11.6-14.8)
[2022-02-12 02:53] LABS: Ketones (Beta-Hydroxybutyrate) 1.33 mmol/L (<0.27)
[2022-02-12 02:54] LABS: Lipase < 10 U/L (23-300)
[2022-02-12 02:55] LABS: Add Manual Diff / Slide Review YES; White Blood Cell Count 44.5 X10^3/uL (4.5-11.0)
[2022-02-12 03:02] LABS: Pregnancy Test Serum,Qual Negative (Negative)
[2022-02-12 03:05] LABS: Troponin I < 0.012 ng/mL (0.01-0.034)
[2022-02-12 03:09] LABS: Procalcitonin 8.75 ng/mL (<0.5)
[2022-02-12 03:17] LABS: Neutrophils Absolute Manual 40495 /uL (3000-5900); Total Cells Counted 100
[2022-02-12 03:18] LABS: Anisocytosis 2+; Hypochromasia 1+
[2022-02-12] MEDS: POTASSIUM CHLORIDE IN WATER 10 MEQ/100 ML PIGGYBACK 100 MEQ IV ×11 (03:22→23:53)
[2022-02-12] MEDS: INSULIN GLARGINE 100 UNIT/ML 3ML PEN 10 UNIT SUBCUT (03:22)
[2022-02-12 03:31] LABS: Ethanol (ETOH) < 10 mg/dL
[2022-02-12 03:50] LABS: COVID19 -Nasal RAPID Negative (Negative)
--- NOTE | 2022-02-12 04:07 | PM.HP.1 ---
History of Present Illness History of Present Illness Date Patient Seen: 02/12/22 Time Patient Seen: 04:07 Chief complaint: UTI, hypotension Narrative: This is a 46-year-old chronically ill female with insulin-dependent diabetes mellitus, recent E coli urinary tract infection, anxiety, history of diabetic ketoacidosis, GERD, fibromyalgia, admission for CVA and COVID pneumonia (07/2021-09/2021 including acute rehab at [facility]), lupus and osteoporosis who presents with weakness, falls and non anion gap metabolic acidosis. Her anion gap is 10 with a blood sugar greater than 400 and a potassium of 2.9. The sodium is 126. Ketones are positive. On VBG the pH is 7.21. She has been on epinephrine during transport for blood pressures of 60s systolic and then subsequently on Levophed here with blood pressures of 80s/50s. Her lactic acid level is normal at 0.6. She has received 2 L of IV fluids. She explains that after her visit here to the ED for the pansensitive E coli UTI a week ago she has continued on an Cephalexin without missing a dose but the vomiting resumed after she ran out of her Zofran. She became too weak to stand and this morning at 1:00 a.m. she fell onto the floor hitting the back of her head and her back and so came to the hospital. Her white blood count is 44.5 with a UA pending, a normal CXR and suspected ongoing urinary tract infection. She is mentating normally. Patient History Medical History (Updated 02/12/22 @ 04:39 by Allan Lemus MD) Acute CVA (cerebrovascular accident) Alcohol intoxication Closed hip fracture COVID DKA (diabetic ketoacidoses) DKA (diabetic ketoacidosis) Fibromyalgia Gastroesophageal reflux disease Insulin dependent diabetes mellitus Lupus Osteoporosis Surgical History History of hip surgery Family & Social History Family History Mother Diabetes mellitus Congestive heart failure Pancreatic cancer Father Diabetes mellitus Brother Diabetes mellitus Pancreatitis Sister Drug overdose Social History: household members family Safety & Behavioral: Feels Safe in Current Yes Environment Tobacco & Substance use: Tobacco type cigarettes Smoking Status Former smoker alcohol intake current alcohol intake frequency holiday/special occasion Substance Use Type does not use Meds Home Medications and Allergies Home Medications Medication Instructions Recorded Confirmed Type insulin aspart U-100 100 unit/mL 0 unit (0 mL) SUB-Q AC #3 unit 02/12/18 12/07/21 Rx (3 mL) subcutaneous pen (Novolog Flexpen U-100 Insulin aspart) buspirone 10 mg tablet 2 tab PO TID 12/08/18 12/07/21 History cyclobenzaprine 10 mg tablet 10 mg PO TID PRN 12/08/18 12/07/21 History gabapentin 600 mg tablet 1.5 tab PO TID 12/08/18 12/07/21 History acetaminophen 325 mg tablet 975 mg PO TID PRN #30 tab 12/12/18 12/07/21 Rx ibuprofen 600 mg tablet 600 mg PO Q6H PRN #30 tab 03/21/20 12/07/21 Rx blood sugar diagnostic (Test N'Go #50 ea 11/30/21 12/08/21 Rx Test) insulin glargine 100 unit/mL (3 10 unit (0.1 mL) SUBCUT DAILY #0 ml 12/09/21 12/07/21 Rx mL) subcutaneous pen Allergies Allergy/AdvReac Type Severity Reaction Status Date / Time amitriptyline Allergy Intermediate Verified 10/08/21 19:53 sulfasalazine [SULFASALAZINE] Allergy Mild PANCREATITI Verified 10/08/21 19:53 S trazodone AdvReac Intermediate HEART Verified 10/08/21 19:53 PALPITATIONS Review of Systems Review of Systems Narrative: Positive for weakness, fall, vomiting. Negative for fevers, chills, sweats, chest pain, coughing, shortness of breath, abdominal pain, diarrhea, bleeding, rashes, dysuria, joint swelling, seizures, headaches, sore throat, new allergies. Exam Vital Signs (past 8 hours): - 02/12/22 01:45 02/12/22 01:50 02/12/22 01:52 Temperature 97.5 F L Pulse Rate 57 L 109 H 108 H Respiratory Rate 30 H 19 Blood Pressure 82/53 L 79/50 L 82/53 L Pulse Oximetry 95 02/12/22 01:55 02/12/22 01:56 02/12/22 01:58 Temperature Pulse Rate 111 H 111 H 113 H Respiratory Rate 28 H 30 H 29 H Blood Pressure 87/51 L 87/51 L Pulse Oximetry 02/12/22 02:00 02/12/22 02:03 02/12/22 02:05 Temperature Pulse Rate 109 H 105 H 104 H Respiratory Rate 28 H 28 H 26 H Blood Pressure 80/51 L 78/49 L 80/51 L Pulse Oximetry 100 100 100 02/12/22 02:10 02/12/22 02:14 02/12/22 02:15 Temperature Pulse Rate 109 H 108 H 108 H Respiratory Rate 24 28 H 28 H Blood Pressure 85/50 L 86/51 L 88/53 L Pulse Oximetry 100 100 100 02/12/22 02:20 02/12/22 02:25 02/12/22 02:30 Temperature Pulse Rate 111 H 113 H 112 H Respiratory Rate 30 H 29 H 26 H Blood Pressure 89/51 L 90/53 L 84/54 L Pulse Oximetry 100 100 100 02/12/22 02:35 02/12/22 02:40 02/12/22 02:45 Temperature Pulse Rate 112 H 115 H 115 H Respiratory Rate 27 H 27 H 29 H Blood Pressure 112/70 142/81 H 139/81 Pulse Oximetry 100 100 100 02/12/22 02:50 02/12/22 02:55 02/12/22 03:00 Temperature Pulse Rate 116 H 114 H 109 H Respiratory Rate 24 26 H 28 H Blood Pressure 139/79 111/70 99/62 Pulse Oximetry 100 100 100 02/12/22 03:05 02/12/22 03:10 02/12/22 03:15 Temperature Pulse Rate 111 H 110 H 107 H Respiratory Rate 26 H 23 23 Blood Pressure 104/61 103/60 100/57 L Pulse Oximetry 100 100 100 02/12/22 03:20 02/12/22 03:25 02/12/22 03:30 Temperature Pulse Rate 104 H 108 H 105 H Respiratory Rate 26 H 20 23 Blood Pressure 95/58 L 105/61 98/55 L Pulse Oximetry 100 100 100 Oxygen Delivery Method Room Air Narrative Exam Narrative: She is alert and oriented x3. Soft-spoken. No apparent distress. Extraocular muscles are intact Sclerae are pink and nonicteric Pupils are equally round and reactive to light and accommodation Throat looks very dry with very dry mucous membranes No lymph nodes are felt head, neck, supraclavicular area JVD is less than 6 cm No carotid bruits are heard There is no thyromegaly Heart is tachycardic, regular rhythm, no murmur Lungs are clear to auscultation bilaterally Abdomen is soft, bowel sounds positive, nontender, no organomegaly Breast and pelvic exams are not done. Skin without rash or jaundice Extremities have no ankle edema. She has severe muscle atrophy and generalized thinness. Neurological exam: There is no tremor Motor function is 3/5 throughout without lateralizing deficit from her stroke noted today. Cranial nerves 2-12 test intact Gait and balance are not tested Reflexes are symmetric Objective Labs Result Diagrams: 02/12/22 02:25 02/12/22 02:25 Labs: Laboratory Results - last 24 hr 02/12/22 02/12/22 02/12/22 02:20 02:25 02:25 WBC 44.5 H* RBC 2.93 L Hgb 8.0 L Hct 25.9 L MCV 88.4 MCH 27.1 MCHC 30.6 RDW 17.6 H Plt Count 550 H Neut % (Auto) Not Reportable Lymph % (Auto) Not Reportable Mcmullen % (Auto) Not Reportable Eos % (Auto) Not Reportable Baso % (Auto) Not Reportable Lymph # (Auto) Not Reportable Mcmullen # (Auto) Not Reportable Baso # (Auto) Not Reportable Total Counted 100 Seg Neutrophils % 87.0 H Band Neutrophils % 4.0 Lymphocytes % (Manual) 5.0 L Monocytes % (Manual) 4.0 Neutrophils # (Manual) 16080 H RBC Morphology See below Hypochromasia 1+ H Anisocytosis 2+ H VBG pH 7.21 L VBG pCO2 28.8 L VBG pO2 43 VBG HCO3 11 L VBG Total CO2 12 L VBG O2 Saturation 69 L VBG Base Excess -17.0 L Sodium 126 L D Potassium 2.9 L Chloride 105 Carbon Dioxide 11 L BUN 27 H Creatinine 1.01 Estimated GFR > 60 BUN/Creatinine Ratio 26.7 H Glucose 389 H D Lactate Calcium 8.1 L Phosphorus 2.3 L Magnesium 1.7 Total Bilirubin 0.3 AST 15 ALT 14 Alkaline Phosphatase 191 H Total Creatine Kinase < 20 L CK-MB (CK-2) TNP CK-MB (CK-2) Rel Index TNP Troponin I < 0.012 Total Protein 5.6 L Albumin 2.6 L Globulin 3.0 Albumin/Globulin Ratio 0.9 L Lipase < 10 L Procalcitonin 8.75 H Serum , Qual Ethyl Alcohol < 10 Ketones 1.33 H SARS-CoV-2 (PCR) 02/12/22 02/12/22 02/12/22 02:25 02:25 03:30 WBC RBC Hgb Hct MCV MCH MCHC RDW Plt Count Neut % (Auto) Lymph % (Auto) Mcmullen % (Auto) Eos % (Auto) Baso % (Auto) Lymph # (Auto) Mcmullen # (Auto) Baso # (Auto) Total Counted Seg Neutrophils % Band Neutrophils % Lymphocytes % (Manual) Monocytes % (Manual) Neutrophils # (Manual) RBC Morphology Hypochromasia Anisocytosis VBG pH VBG pCO2 VBG pO2 VBG HCO3 VBG Total CO2 VBG O2 Saturation VBG Base Excess Sodium Potassium Chloride Carbon Dioxide BUN Creatinine Estimated GFR BUN/Creatinine Ratio Glucose Lactate 0.6 L Calcium Phosphorus Magnesium Total Bilirubin AST ALT Alkaline Phosphatase Total Creatine Kinase CK-MB (CK-2) CK-MB (CK-2) Rel Index Troponin I Total Protein Albumin Globulin Albumin/Globulin Ratio Lipase Procalcitonin Serum , Qual Negative Ethyl Alcohol Ketones SARS-CoV-2 (PCR) Negative Assessment & Plan Assessment & Plan narrative: This is a 46-year-old chronically ill female with insulin-dependent diabetes mellitus, recent E coli urinary tract infection, anxiety, history of diabetic ketoacidosis, GERD, fibromyalgia, admission for CVA and COVID pneumonia (07/2021-09/2021 including acute rehab at [facility]), lupus and osteoporosis who presents with weakness, falls and non anion gap metabolic acidosis. Sepsis, present on admission. Active. -venous pH 7.20 with white blood count of 44.5 but normal lactic acid level and normal anion gap. -follow elevated white blood count -obvious mucous membrane dehydration despite 2 L IV fluid, continue hydrating. -continue Levophed and wean as tolerated. -recent E coli urinary tract infection likely incompletely treated with cephalexin -repeat UA and continue on ceftriaxone initiated in ED. Insulin-dependent diabetes mellitus, present on admission. Active. -history of diabetic ketoacidosis but no significant anion gap despite positive ketones today. -continue IV fluid replacement, subcutaneous Lantus/NovoLog per home regimen and high-dose correctional scale Hypokalemia, present on admission. Active. -20 mEq of IV potassium chloride given in the ED. -repeat potassium level at 10:00 a.m. today -follow and supplement/replete as indicated Hyponatremia, present on admission. Active. -secondary to persistent vomiting, IV saline infusion and bolus ordered. Normocytic anemia, present on admission. Active. -hemoglobin 8.0, was 10.2 on 02/03 -follow hemoglobin, likely low secondary to chronic disease. Protein calorie malnutrition, present on admission. Chronic. -albumin 2.6, diffuse muscle atrophy -continue IV fluids, encourage protein intake and dietitian consultation Nausea with vomiting, present on admission. Active. -continue ondansetron -IV fluid bolus and supplementation for maintenance -Diabetic carb choice diet Falls with weakness, present on admission. Active. -no [employer] symptoms to require brain CT at this time -secondary to hypotension of sepsis. -recent CVA in November when she had COVID without significant lateralizing deficits noted today -physical therapy and occupational therapy evaluation and treat Anxiety, present on admission. Active. -continue buspirone Her backup decision maker is her sister and daughter who she lives with. Lovenox for DVT prevention Time Spent With Patient Critical Care time: I spent a total of [] minutes of critical care time on this patient's care today; this time is exclusive of procedural time.
[2022-02-12] MEDS: NOREPINEPHRINE BITARTRATE/D5W 4 MG/250 ML PLAST..BAG 10 MG IV (04:48)
[2022-02-12] MEDS: SODIUM CHLORIDE 0.9% 1,000 ML 150 ML IV (04:54)
--- NOTE | 2022-02-12 05:05 | PC.NURSE ---
1414 Dr. Lemus notified patient arrived on ICU admitted to 227, per Dr. Lemus no tele-medicine practical nursing instructor consult at this time.
[2022-02-12] MEDS: INSULIN LISPRO 100 UNIT/ML 3ML VIAL SUBCUT ×3 (05:21→22:17)
--- NOTE | 2022-02-12 06:20 | DI.CT.S_ITS ---
PROCEDURE: CT CERVICAL SPINE WO CON INDICATIONS: Fell hit back of head at home before admission, c/o MORALES TECHNIQUE: Noncontrast 3 mm thick sections acquired from the skull base to the T4 level. Sagittal and coronal reformats were then constructed. For radiation dose reduction, the following was used: automated exposure control, adjustment of mA and/or kV according to patient size. COMPARISON: [facility], CT, CT HEAD/BRAIN WO CON, 02/12/2022, 8:07. FINDINGS: Image quality: Excellent. Bones: No fractures or dislocations. Visualized superior ribs are intact. Soft tissues: Prevertebral soft tissues are normal in thickness. No paravertebral hematomas. No apical pneumothoraces. IMPRESSION: No acute cervical spine injury. Dictated by: Nohelia Roque M.D. on 02/12/2022 at 8:43 Approved by: Nohelia Roque M.D. on 02/12/2022 at 8:51
--- NOTE | 2022-02-12 06:20 | DI.CT.S_ITS ---
PROCEDURE: CT HEAD/BRAIN WO CON INDICATIONS: Fell hit back of head at home before admission, c/o MORALES TECHNIQUE: Noncontrast 4.5 mm thick angled axial sections acquired from the foramen magnum to the vertex, with coronal and sagittal reformats. For radiation dose reduction, the following was used: automated exposure control, adjustment of mA and/or kV according to patient size. COMPARISON: Dated Merged With [facility], CT, CT ANGIO HEAD AND NECK, 12/07/2021, 16:33. [address] Merg[facility] With [facility], CT, CT STROKE, 12/07/2021, 14:28. Merged With [facility], MR, MR HEAD/BRAIN WO CON, 12/08/2021, 14:40. Merged With [facility], CT, CT HEAD/BRAIN WO CON, 08/12/2021, 2:49. FINDINGS: Image quality: Excellent. CSF spaces: Basal cisterns are patent. No extra-axial fluid collections. Ventricles are normal in size and shape. Brain: No midline shift. No intracranial masses or hemorrhage. Encephalomalacia is redemonstrated within the right frontoparietal region, unchanged from the study dated December 07, 2021. Mackey-white matter interface is unchanged. Skull and face: Calvarium and visualized facial bones are intact, without suspicious lesions. Sinuses: Visualized sinuses and mastoids are clear. IMPRESSION: 1. No acute intracranial findings. 2. Stable encephalomalacia within the right hemisphere. Dictated by: Nohelia Roque M.D. on 02/12/2022 at 8:52 Approved by: Nohelia Roque M.D. on 02/12/2022 at 8:56
[2022-02-12] MEDS: ACETAMINOPHEN 325 MG TABLET 650 MG PO ×2 (06:34→12:01)
[2022-02-12] MEDS: NOREPINEPHRINE BITARTRATE/D5W 4 MG/250 ML PLAST..BAG 15 MG IV (07:00)
--- NOTE | 2022-02-12 07:46 | PC.NURSE ---
End of shift note: Care of patient from 414 to 729. Patient AAOX3, c/o MORALES, states she fell at home and hit the back of her head, no hematoma or bruising noted. Patient has been having loose liquid BMS X2. Called Dr. Lemus and informed of MORALES and liquid BMs. See new orders for head and C-spine CT and place in iso to r/o C. Dif. Pt is St 100s, on Levophed gtt 3mcg/min.
--- NOTE | 2022-02-12 09:11 | PC.NURSE ---
Addendum entered by Lois Rosenberg R.N. 02/12/22 18:59: Unable to reduce down from Levophed remains on 4mcg/min. Pt appropriate and using call light for needs. Barrier cream to buttocks for prevention of breakdown. Nausea subsided at present. Addendum entered by Lois Rosenberg R.N. 02/12/22 18:18: Levophed remains titrated to 3mcg/min, with BP MAP > 65. Ba active. Pt using light for needs. RA and Lungs are dim with faint crackles to bases bilaterally. BP remains soft. HR stable at 100 ST/NSR AND Pt continues on Bicarb and K+ Abx. BT active. Call light in reach. Addendum entered by Lois Rosenberg R.N. 02/12/22 17:09: Added IV Dilaudid for ABD pain not relieved with APAP. Multiple stooling, incont, and mixed with urine. Unable to send out clean catch sample for cdiff. Pt continues with weakness, critical K+ reported to Dr Angel, replacement ordered. Addendum entered by Lois Rosenberg R.N. 02/12/22 14:55: Pt reporting nausea off and on. Medicated with Zofran x1. Intermitent nausea with napping between Original Note: AM shift Assumed care of patient, Alert, oriented x3, soft spoken. Reports nausea and pain, to ABD. I have fibromyalgia, it's that kind of pain Reports improved MORALES after APAP. Off floor @ [address], on monitor, this RN transporting. VSS, BP slightly low, MAP >65 Levophed infusing @ 3 mcg/min. Back to room @ 0845. Pt working on breakfast. Call light in reach. CBG down to 91, eating.
--- NOTE | 2022-02-12 09:35 | PM.CN.EICU ---
History of Present Illness Consult details Chief complaint: UTI, hypotension Narrative: Patient is a 46 year old female with history of CVA w/ no residual deficit, DM, anxiety, and recent UTI treated with antibiotic about a week ago presents to the ER with complaints of generalized and falls. She was also noted to be hypotensive which was briefly started on epinephrine and transitioned to levophed on arrival to ER. Further workup showed NG metabolic acidosis and WBC 44.5. Received 2 liters crystalloid and started on ceftriaxone. Admitted to ICU for further management. Currently on levophed 4 mcg. Per RN report, patient had multiple loose BMs this morning. [facility] Medical History (Updated 02/12/22 @ 04:39 by Allan Lemus MD) Acute CVA (cerebrovascular accident) Alcohol intoxication Closed hip fracture COVID DKA (diabetic ketoacidoses) DKA (diabetic ketoacidosis) Fibromyalgia Gastroesophageal reflux disease Insulin dependent diabetes mellitus Lupus Osteoporosis Surgical History History of hip surgery Family History Mother Diabetes mellitus Congestive heart failure Pancreatic cancer Father Diabetes mellitus Brother Diabetes mellitus Pancreatitis Sister Drug overdose Social History household members: family Smoking Status: Former smoker alcohol intake: current Current Medications Current Medications Medications: Home Medications insulin aspart U-100 100 unit/mL (3 mL) subcutaneous pen (Novolog Flexpen U-100 Insulin aspart) 0 unit (0 mL) SUB-Q AC #3 unit 02/12/18 [Rx Confirmed 12/07/21] buspirone 10 mg tablet 2 tab PO TID 12/08/18 [History Confirmed 12/07/21] cyclobenzaprine 10 mg tablet 10 mg PO TID PRN 12/08/18 [History Confirmed 12/07/21] gabapentin 600 mg tablet 1.5 tab PO TID 12/08/18 [History Confirmed 12/07/21] acetaminophen 325 mg tablet 975 mg PO TID PRN #30 tab 12/12/18 [Rx Confirmed 12/07/21] ibuprofen 600 mg tablet 600 mg PO Q6H PRN #30 tab 03/21/20 [Rx Confirmed 12/07/21] blood sugar diagnostic (Test N'Go Test) #50 ea 11/30/21 [Rx Confirmed 12/08/21] insulin glargine 100 unit/mL (3 mL) subcutaneous pen 10 unit (0.1 mL) SUBCUT DAILY #0 ml 12/09/21 [Rx Confirmed 12/07/21] Visit Medications (administered) Generic Name Dose Route Start Last Admin Trade Name Alicia PRN Reason Stop Dose Admin Acetaminophen 650 mg 02/12/22 06:22 02/12/22 06:34 Acetaminophen 325 Mg Tablet PO 650 mg Q6HR PRN Administration Headache Sodium Chloride 1,000 mls @ 150 mls/hr 02/12/22 04:30 02/12/22 04:54 Normal Saline 0.9% IV 150 mls/hr CONT JOSE ANTONIO Administration Insulin Human Lispro 0 unit 02/12/22 04:30 02/12/22 05:21 Insulin Lispro 100 Unit/Ml 3ml Vial SUBCUT 12 unit Q6H JOSE ANTONIO Administration Protocol Exam Vital Signs (past 8 hours): - 02/12/22 01:45 02/12/22 01:50 02/12/22 01:52 Temperature 97.5 F L Pulse Rate 57 L 109 H 108 H Respiratory Rate 30 H 19 Blood Pressure 82/53 L 79/50 L 82/53 L Pulse Oximetry 95 02/12/22 01:55 02/12/22 01:56 02/12/22 01:58 Temperature Pulse Rate 111 H 111 H 113 H Respiratory Rate 28 H 30 H 29 H Blood Pressure 87/51 L 87/51 L Pulse Oximetry 02/12/22 02:00 02/12/22 02:03 02/12/22 02:05 Temperature Pulse Rate 109 H 105 H 104 H Respiratory Rate 28 H 28 H 26 H Blood Pressure 80/51 L 78/49 L 80/51 L Pulse Oximetry 100 100 100 02/12/22 02:10 02/12/22 02:14 02/12/22 02:15 Temperature Pulse Rate 109 H 108 H 108 H Respiratory Rate 24 28 H 28 H Blood Pressure 85/50 L 86/51 L 88/53 L Pulse Oximetry 100 100 100 02/12/22 02:20 02/12/22 02:25 02/12/22 02:30 Temperature Pulse Rate 111 H 113 H 112 H Respiratory Rate 30 H 29 H 26 H Blood Pressure 89/51 L 90/53 L 84/54 L Pulse Oximetry 100 100 100 02/12/22 02:35 02/12/22 02:40 02/12/22 02:45 Temperature Pulse Rate 112 H 115 H 115 H Respiratory Rate 27 H 27 H 29 H Blood Pressure 112/70 142/81 H 139/81 Pulse Oximetry 100 100 100 02/12/22 02:50 02/12/22 02:55 02/12/22 03:00 Temperature Pulse Rate 116 H 114 H 109 H Respiratory Rate 24 26 H 28 H Blood Pressure 139/79 111/70 99/62 Pulse Oximetry 100 100 100 02/12/22 03:05 02/12/22 03:10 02/12/22 03:15 Temperature Pulse Rate 111 H 110 H 107 H Respiratory Rate 26 H 23 23 Blood Pressure 104/61 103/60 100/57 L Pulse Oximetry 100 100 100 02/12/22 03:20 02/12/22 03:25 02/12/22 03:30 Temperature Pulse Rate 104 H 108 H 105 H Respiratory Rate 26 H 20 23 Blood Pressure 95/58 L 105/61 98/55 L Pulse Oximetry 100 100 100 02/12/22 04:21 02/12/22 05:21 02/12/22 06:00 Temperature 97.5 F L 98.1 F 97.6 F Pulse Rate 111 H 115 H 119 H Respiratory Rate 26 H 44 H 25 H Blood Pressure 108/63 100/57 L 103/58 L Pulse Oximetry 100 100 100 02/12/22 06:34 02/12/22 07:00 02/12/22 08:00 Temperature 97.7 F 98.3 F 98.3 F Pulse Rate 121 H 120 H 116 H Respiratory Rate 19 49 H 23 Blood Pressure 91/55 L 90/55 L 95/58 L Pulse Oximetry 100 100 100 Oxygen Delivery Method Room Air Oxygen Flow Rate 0 Objective Labs Result Diagrams: 02/12/22 10:10 02/12/22 10:10 Labs: Laboratory Results - last 24 hr 02/12/22 02/12/22 02/12/22 02:20 02:25 02:25 WBC 44.5 H* RBC 2.93 L Hgb 8.0 L Hct 25.9 L MCV 88.4 MCH 27.1 MCHC 30.6 RDW 17.6 H Plt Count 550 H Neut % (Auto) Not Reportable Lymph % (Auto) Not Reportable Simpson % (Auto) Not Reportable Eos % (Auto) Not Reportable Baso % (Auto) Not Reportable Lymph # (Auto) Not Reportable Simpson # (Auto) Not Reportable Baso # (Auto) Not Reportable Total Counted 100 Seg Neutrophils % 87.0 H Band Neutrophils % 4.0 Lymphocytes % (Manual) 5.0 L Monocytes % (Manual) 4.0 Neutrophils # (Manual) 34838 H RBC Morphology See below Hypochromasia 1+ H Anisocytosis 2+ H VBG pH 7.21 L VBG pCO2 28.8 L VBG pO2 43 VBG HCO3 11 L VBG Total CO2 12 L VBG O2 Saturation 69 L VBG Base Excess -17.0 L Sodium 126 L D Potassium 2.9 L Chloride 105 Carbon Dioxide 11 L BUN 27 H Creatinine 1.01 Estimated GFR > 60 BUN/Creatinine Ratio 26.7 H Glucose 389 H D Lactate Calcium 8.1 L Phosphorus 2.3 L Magnesium 1.7 Total Bilirubin 0.3 AST 15 ALT 14 Alkaline Phosphatase 191 H Total Creatine Kinase < 20 L CK-MB (CK-2) TNP CK-MB (CK-2) Rel Index TNP Troponin I < 0.012 Total Protein 5.6 L Albumin 2.6 L Globulin 3.0 Albumin/Globulin Ratio 0.9 L Lipase < 10 L Procalcitonin 8.75 H Serum , Qual Ethyl Alcohol < 10 Ketones 1.33 H SARS-CoV-2 (PCR) 02/12/22 02/12/22 02/12/22 02:25 02:25 03:30 WBC RBC Hgb Hct MCV MCH MCHC RDW Plt Count Neut % (Auto) Lymph % (Auto) Simpson % (Auto) Eos % (Auto) Baso % (Auto) Lymph # (Auto) Simpson # (Auto) Baso # (Auto) Total Counted Seg Neutrophils % Band Neutrophils % Lymphocytes % (Manual) Monocytes % (Manual) Neutrophils # (Manual) RBC Morphology Hypochromasia Anisocytosis VBG pH VBG pCO2 VBG pO2 VBG HCO3 VBG Total CO2 VBG O2 Saturation VBG Base Excess Sodium Potassium Chloride Carbon Dioxide BUN Creatinine Estimated GFR BUN/Creatinine Ratio Glucose Lactate 0.6 L Calcium Phosphorus Magnesium Total Bilirubin AST ALT Alkaline Phosphatase Total Creatine Kinase CK-MB (CK-2) CK-MB (CK-2) Rel Index Troponin I Total Protein Albumin Globulin Albumin/Globulin Ratio Lipase Procalcitonin Serum , Qual Negative Ethyl Alcohol Ketones SARS-CoV-2 (PCR) Negative Assessment & Plan Assessment & Plan narrative: NEURO: # Hx of CVA -- Seek PT/OT and OOB as tolerated -- FAll precaution RESP: -- Encourage IS and OOB as tolerated CVS: # Distributive shock -- Secondary to sepsis as below -- Cont aggressive crystalloids -- On levophed to maintain MAP goal > 65 -- Abx as below : # Non gap metabolic acidosis -- Secondary to diarrhea and ? MIGUEL -- Cont aggressive IVF resuscitation -- Avoid NS to decrease risk of hyperchloremic NG acidosis -- Start sodium bicarbonate infusion 150cc/hr -- Check BMP every 6 hours # MIGUEL -- secondary to dehydration -- Cont IVF resuscitation -- Avoid nephrotoxin agents -- Monitor UOP -- DAily BMP ID: # Septic shock -- secondary to C. diff colitis -- Pending blood and urine cx -- Start vancomycin PO -- Avoid steroids as this can cause worsening C diff colitis -- Cont aggressive IVF resuscitation -- If urine cx are negative then recommend stopping ceftriaxone ENDO: # DM -- BS improved -- Cont IVF -- On ISS -- Goal BS < 180 D/w RN and pharmacy. Time Spent With Patient Critical Care time: I spent a total of [] minutes of critical care time on this patient's care today; this time is exclusive of procedural time.
[2022-02-12] MEDS: CYCLOBENZAPRINE 10 MG TABLET PO (10:06)
[2022-02-12] MEDS: BUSPIRONE 5 MG TABLET 20 MG PO ×3 (10:06→20:35)
[2022-02-12] MEDS: ENOXAPARIN 40 MG/0.4 ML SYRINGE SUBCUT (10:06)
[2022-02-12] MEDS: ONDANSETRON 4 MG/2 ML INJ IV ×2 (10:06→19:52)
[2022-02-12] MEDS: GABAPENTIN 300 MG CAPSULE 900 MG PO ×3 (10:06→20:35)
[2022-02-12] MEDS: LACTATED RINGERS 1,000 ML 1000 ML IV (10:13)
[2022-02-12] MEDS: MAGNESIUM SULFATE 2 GM/50 ML PIGGYBACK IV (10:19)
[2022-02-12] MEDS: VANCOMYCIN 125 MG CAPSULE PO (10:19)
[2022-02-12 10:43] LABS: Hematocrit 26.7 % (36-46); Hemoglobin 8.2 g/dL (12.0-16.0); Mean Corpuscular HGB Conc 30.9 % (30-36); Mean Corpuscular Hemoglobin 26.9 PG (26-34); Mean Corpuscular Volume 87.2 fL (80-100); Platelet Count 611 X10^3/uL (150-400); Red Blood Cell Count 3.06 X10^6/uL (4.0-5.2)
[2022-02-12 10:44] LABS: Add Manual Diff / Slide Review YES
[2022-02-12 11:01] LABS: BUN Creatinine Ratio 27.8 (6-22); Blood Urea Nitrogen 22 mg/dL (7-17); Carbon Dioxide 11 mmol/L (22-32); Chloride 111 mmol/L (98-107); Estimated Glomerular Filt Rate > 60 mL/min (>60); Glucose 93 mg/dL (70-100); HEMOLYSIS < 15 (0-50); Potassium 3.3 mmol/L (3.4-5.1); Sodium 132 mmol/L (137-145)
[2022-02-12 11:15] LABS: Neutrophils Absolute Manual 49290 /uL (3000-5900); Total Cells Counted 100
[2022-02-12 11:16] LABS: RBC Morphology See
[2022-02-12 11:17] LABS: Anisocytosis 2+
[2022-02-12 11:18] LABS: Burr Cells 1+; Dohle Bodies 1+; Poikilocytosis 1+
[2022-02-12] MEDS: FIDAXOMICIN 200 MG TABLET PO ×2 (11:33→20:34)
--- NOTE | 2022-02-12 11:41 | OT.IPNOTE ---
Per nursing aid states pt has been having multiple loose stools already this morning. Pt states too tired to attempted OT eval at this time.
[2022-02-12] MEDS: SODIUM BICARB 8.4% VIAL 150 MEQ in DEXTROSE 5% WATER 1,000 ML IV ×2 (11:56→20:36)
[2022-02-12] MEDS: PIPERACILLIN/TAZO 4.5 GM in SODIUM CHLORIDE 0.9% 100 ML IV (12:01)
--- NOTE | 2022-02-12 14:10 | OT.IPNOTE ---
Spoke to Hospitalist whether pt was medically ready for OT eval, hospitalist states no and okay for pt to be on hold for today and to check back tomorrow.
--- NOTE | 2022-02-12 14:15 | PT.IIE ---
Current Diagnoses Type 2 diabetes mellitus without complications (02/12/22) Hypokalemia (02/12/22) Hypotension, unspecified (02/12/22) Nausea with vomiting, unspecified (02/12/22) Diarrhea, unspecified (02/12/22) Medical History (Last Updated 02/12/22 @ 04:39 by Allan Lemus MD) Acute CVA (cerebrovascular accident) Alcohol intoxication Closed hip fracture COVID DKA (diabetic ketoacidoses) DKA (diabetic ketoacidosis) Fibromyalgia Gastroesophageal reflux disease Insulin dependent diabetes mellitus Lupus Osteoporosis Physical Therapy Inpatient Evaluation/Re-Eval M1 PT/OT-IP Prior Functional Status Start: 02/12/22 15:01 Freq: NEEDED Status: Active Protocol: Document 02/12/22 14:15 AB (Rec: 02/12/22 15:10 AB [email or web address]) Medical Review Prior Functional Status Medical History Reviewed Yes Communication able to make needs known Mobility and Gait pt stated that she is modified independent with all mobilities and ambulation using a FWW Social History Household Members family Living Arrangements House Number of Floors (Floors) One Floor Number of Stairs To Enter/Railing? ramp to enter Home Environment Standard Height Toilet,Tub/ Shower Home Equipment Front Wheel Walker,Shower Seat with Backrest,Hand Held Shower,Grab Bars In Shower Additional Social History Comment pt has her daughter and cousin at home to assist her M2 PT-IP Current Condition Start: 02/12/22 15:01 Freq: NEEDED Status: Active Protocol: Document 02/12/22 14:15 AB (Rec: 02/12/22 15:10 [email or web address]) Physical Therapy Current Condition Current Condition Evaluation Date 02/12/22 Treatment Diagnosis sepsis; difficulty in walking Onset Date 02/12/22 M3 PT-IP Subjective Start: 02/12/22 15:01 Freq: NEEDED Status: Active Protocol: Document 02/12/22 14:15 AB (Rec: 02/12/22 15:10 [email or web address]) Subjective Physical Therapy Visit Type Type Initial Evaluation Visit Start Time 14:15 Visit Stop Time 14:45 Total Visit Minutes 30 Number of RECREATION COORDINATOR Visits 0 Physical Therapy Visit Comments Patient Comments agreeable to do PT Therapy Pain Assessment Pain When Pain Assessed At Rest Pain Present Pain Present Pain Reported Location Abdomen Intensity 6 Scale Used Numeric (0 - 10) Pain Management Techniques Distraction,Elevation, Modification of Treatment,Re- positioning Head Intensity 7 Pain Management Techniques Distraction,Modification of Treatment M4 PT-IP Mobility and Gait Start: 02/12/22 15:01 Freq: NEEDED Status: Active Protocol: Document 02/12/22 14:15 AB (Rec: 02/12/22 15:10 AB [id number]) PT-Bed Mobility Assessment Supine to Sit Supine to Sit Minimal Assistance,Head of Bed Elevated,Bedrails Sit to Supine Sit to Supine Minimal Assistance,Head of Bed Elevated,Bedrails PT-Transfer Assessment Sit to and From Stand Sit to and from Stand Moderate Assistance,1 Person Assistance,Use of Upper Extremities Equipment Transfer Assistive Device Gait Belt,Front Wheeled Walker Orthotic/Prosthetic Devices or Brace: No Comments Mobility Comments BP in supine: 114/59. completed supine to sit min A and cues with HOB elevated. c /o dizziness and feeling weak. BP in sittin/51. pt requires min A for sitting balance on EOB. completed sit to stand mod A and able to take side steps towards HoB ~ 2ft mod A and cues using FWW. pt completed sit to supine min A and cues. positioned pt in bed. Call light and table placed within reach. Gait Assessment Gait Distance (Feet) 2 Able to Maintain Weight Bearing Status Yes During Gait Assistive Devices Assistive Device Gait Belt,Front Wheeled Walker Orthotic/Prosthetic Devices or Brace: No Factors Limiting Gait Function Factors Limiting Gait Function Decreased Activity Tolerance, Decreased Strength,Pain,Poor Balance,Poor Safety Awareness PT-Balance Assessment Sitting Balance and Reactions Static Sitting Balance Ability Good Dynamic Sitting Balance Ability Fair Standing Balance and Reactions Static Standing Balance Ability Fair Dynamic Standing Balance Ability Poor Device Used FWW M5 PT-IP Objective Assessments Start: 02/12/22 15:01 Freq: NEEDED Status: Active Protocol: Document 02/12/22 14:15 AB (Rec: 02/12/22 15:10 AB [id number]) Orientation Orientation/Cognition Level of Alertness Alert Orientation Name,Place,Situation Language Function Ability No Deficits Noted Safety Awareness Understands Safety Issues Memory Description No Deficits Noted Gross Range of Motion Lower Extremity ROM Assessment Within Functional Limits Strength Lower Extremity Strength Hip 3+/5 Knee 3+/5 Coordination Assessment Gross Coordination Gross Coordination WNL M6 PT-IP Treatment Start: 02/12/22 15:01 Freq: NEEDED Status: Active Protocol: Document 02/12/22 14:15 AB (Rec: 02/12/22 15:10 AB [email or web address]) Physical Therapy Treatment Education Education Provided Safety M7 PT-IP Assessment and Plan Start: 02/12/22 15:01 Freq: NEEDED Status: Active Protocol: Document 02/12/22 14:15 AB (Rec: 02/12/22 15:10 AB [email or web address]) PT Summary Assessment and Plan Potential Rehabilitation Potential Fair Status of Condition at Evaluation Evolving Summary Impairments Pain,ROM,Strength,Balance, Coordination,Sensation,Bed Mobility,Transfers,Gait, Activity Tolerance Assessment Summary pt requiring mod A with sit to stand and side stepping and unable to ambulate much today. pt presents with decrease activity tolerance affecting mobility. d/co plan depends on progress but at this time, will require SNF rehab to improve strength and mobility. will continue to assess progress. Goals Bed Mobility Goal Independent Transfer Goal Independent,Front Wheeled Walker Gait Goal Independent,Front Wheel Walker Gait Distance 200 Days to Meet Goals 10 Frequency of Treatment Frequency Of Treatment Once a Day Treatment Plan Physical Therapy Treatment Plan Bed Mobility Training,Transfer Training,Gait Training, Therapeutic Exercise,Balance Retraining,Discharge Planning, Hot or Cold Pack,Neuromuscular Re-ed,Coordination Retraining Precautions Other Precautions C-diff (possible per nurse) Recommendations To Nursing Amount of Assist Needed 1 Person Assist Discharge Recommendations PT Discharge Recommendations SNF Rehab Transportation Needs at Discharge Private Vehicle,Wheelchair/ Cabulance
--- NOTE | 2022-02-12 16:07 | DIET.CONS ---
Dietary Consultation Note Admission Date: 02/12/2022 04:44 Assessment: 46 y/o F with DM familiar to this RD DESMONDES. Admitted with N/V was found to have sepsis, hypokalemia, hyponatremia, normocytic anemia, and PCM. Treated for non gap metabolic acidosis, MIGUEL. Admitted with BG of 405 mg/dL. + ketones. Possible C diff Today she tells me she has had n/v for over a week. Has not been taking insulin d/t not eating. One improvement since last time this RD saw her is she now has a CGM. Also wt seems improved from previous admissions. Still using injection insulin therapy, no pump. Does endorse some improvement to BG prior to recent illness. Last HgA1c in EMR 10.5%. Reports improved HgA1c with PCP at [facility]. Poor dentition Nutrition focused physical exam indicates significant scooping of temporal region, boxed shoulders, indicative of malnutrition. No recent wt loss in EMR, but pt endorses 5# loss over one week due to illness and inadequate PO. Still reports poor PO d/t difficulty with taste since previous covid infection. Based on current wt 121#, a 5# loss is 4% wt loss. Ht: 160.02 cm Wt: 55 kg BMI: 21.4 Last BM: 02/12/22 (02/12/22 12:00) MNA: 10 Jag Score: 17 Diet: 02/12/22 Breakfast Carbohydrate Consistent Diet Diet Modifications: Carbohydrate level: Medium (3 CHO) Bedtime snack: Yes Nutrition Percent Meal Consumed refused lunch 02/12/22 14:00 Percent Meal Consumed 25% 02/12/22 09:39 Labs: RBC 3.06 X10^6/uL (4.0-5.2) L 02/12/22 10:10 Hgb 8.2 g/dL (12.0-16.0) L 02/12/22 10:10 Hct 26.7 % (36-46) L 02/12/22 10:10 Creatinine 0.79 mg/dL (0.52-1.04) 02/12/22 10:10 Lactate 0.6 mmol/L (0.7-2.1) L 02/12/22 02:25 Nutrition Diagnosis: Acute on chronic severe PCM r/t illness impacting PO, change in taste impacting PO, and hyperglycemia aeb reported >2% wt loss in a week, N/V for a week or more, and physical signs of malnutrition. Interventions: 1. Coordinated with kitchen to send glucerna BID 2. Change diet order to easy chew to help PO with poor dentition 3. Organizing referral from PCP for OP DSME EER: 1650kcal (30 kcla/kg per BMI) ; 83g PRO (1.5 g/kg per PCM) Monitoring/Evaluations: ONS, PO, weight, and will f/u on referral status for OP DM ed Electronically Signed by: Liliana De La Torre 02/12/22 16:07 Clinical Dietitian [address] [address]
[2022-02-12 16:24] LABS: BUN Creatinine Ratio 29.9 (6-22); Blood Urea Nitrogen 20 mg/dL (7-17); Calcium 7.4 mg/dL (8.4-10.2); Carbon Dioxide 14 mmol/L (22-32); Chloride 111 mmol/L (98-107); Estimated Glomerular Filt Rate > 60 mL/min (>60); Glucose 254 mg/dL (70-100); HEMOLYSIS < 15 (0-50); Sodium 133 mmol/L (137-145)
[2022-02-12 16:44] LABS: Potassium 2.7 mmol/L (3.4-5.1)
[2022-02-12] MEDS: HYDROMORPHONE 0.5 MG INJ 1 MG (17:35)
[2022-02-12] MEDS: NOREPINEPHRINE BITARTRATE/D5W 4 MG/250 ML PLAST..BAG 11.25 MG IV (18:48)
[2022-02-12] MEDS: PIPERACILLIN/TAZO 3.375 GM in SODIUM CHLORIDE 0.9% 100 ML IV (19:52)
--- NOTE | 2022-02-12 20:51 | PM.ICURNDS ---
- :: This patient was seen via real time interactive two-way audiovisual telecommunication. Note: patient with septic shock due possible due to cdiff colits.. remains on pressors with goal map of 65. monitor UO, replete K, f/u BMP. f/u cx, and cdiff toxin. remians on fidaxomycin and empirc abx. NPO for now , cont bicarb gtt.
[2022-02-12 22:07] LABS: BUN Creatinine Ratio 22.1 (6-22); Blood Urea Nitrogen 19 mg/dL (7-17); Calcium 7.2 mg/dL (8.4-10.2); Carbon Dioxide 15 mmol/L (22-32); Chloride 105 mmol/L (98-107); Estimated Glomerular Filt Rate > 60 mL/min (>60); Glucose 371 mg/dL (70-100); HEMOLYSIS < 15 (0-50); Potassium 3.6 mmol/L (3.4-5.1); Sodium 132 mmol/L (137-145)
[2022-02-12] MEDS: HYDROMORPHONE 1 MG INJ IV (23:14)
[2022-02-12 23:25] LABS: Clostridium Difficile Tox PCR Positive for C. diff (Negative)
[2022-02-13] VITALS (237 sets, daily range): BP systolic 86–127; BP diastolic 40–80; PULSE 93–130; RESP 12–55; TEMP 36.1–38.7; O2SAT 87–100
[2022-02-13] MEDS: VANCOMYCIN 1,000 MG/200 ML PIGGYBACK 200 MG IV ×2 (00:43→13:03)
[2022-02-13] MEDS: POTASSIUM CHLORIDE IN WATER 10 MEQ/100 ML PIGGYBACK 100 MEQ IV ×5 (00:56→15:15)
[2022-02-13] MEDS: ACETAMINOPHEN 325 MG TABLET 650 MG PO ×2 (02:40→22:58)
[2022-02-13] MEDS: CYCLOBENZAPRINE 10 MG TABLET PO ×2 (02:40→16:45)
[2022-02-13] MEDS: PIPERACILLIN/TAZO 3.375 GM in SODIUM CHLORIDE 0.9% 100 ML IV ×3 (02:49→18:30)
[2022-02-13] MEDS: SODIUM BICARB 8.4% VIAL 150 MEQ in DEXTROSE 5% WATER 1,000 ML IV (04:03)
[2022-02-13 04:20] LABS: BUN Creatinine Ratio 23.8 (6-22); Blood Urea Nitrogen 19 mg/dL (7-17); Calcium 7.2 mg/dL (8.4-10.2); Carbon Dioxide 19 mmol/L (22-32); Chloride 104 mmol/L (98-107); Estimated Glomerular Filt Rate > 60 mL/min (>60); Glucose 291 mg/dL (70-100); HEMOLYSIS < 15 (0-50); Potassium 3.4 mmol/L (3.4-5.1); Sodium 132 mmol/L (137-145)
[2022-02-13 05:20] LABS: Hematocrit 23.9 % (36-46); Hemoglobin 7.6 g/dL (12.0-16.0); Mean Corpuscular HGB Conc 31.9 % (30-36); Mean Corpuscular Hemoglobin 27.2 PG (26-34); Mean Corpuscular Volume 85.3 fL (80-100); Platelet Count 535 X10^3/uL (150-400); Red Cell Distribution Width 17.5 % (11.6-14.8)
[2022-02-13 05:41] LABS: Add Manual Diff / Slide Review YES
[2022-02-13 05:42] LABS: White Blood Cell Count 43.9 X10^3/uL (4.5-11.0)
[2022-02-13] MEDS: HYDROMORPHONE 1 MG INJ IV ×3 (05:55→18:30)
[2022-02-13] MEDS: ONDANSETRON 4 MG/2 ML INJ IV ×2 (05:55→18:29)
[2022-02-13 06:02] LABS: Neutrophils Absolute Manual 41266 /uL (3000-5900); Total Cells Counted 100
[2022-02-13 06:04] LABS: Anisocytosis 2+; Hypochromasia 1+
--- NOTE | 2022-02-13 08:09 | PM.PN.EICU ---
Subjective Subjective If camera was activated, add TeleICU A-V statement: Patient seen through two way A-V systemt Interval history: ?Patient summary: 46-year-old with PMH of DM anxiety, GERD, fibromyalgia, lupus, osteoporosis, CVA 2020, COVID PNA 2020, and recent E. Coli UTI admitted 02/11/22 with septic shock, non-AG metabolic acidosis, and C. Diff. Recent Events: Patient still requiring Levophed drip at 4 mcg/min which is slightly better compared to yesterday when patient required 4-6 mcg/min. Serum Bicarb improved to 19. Hgb trended down to 7.6 but no signs of overt bleeding (could be hemodilution). Current Medications Current Medications Medications: Home Medications insulin aspart U-100 100 unit/mL (3 mL) subcutaneous pen (Novolog Flexpen U-100 Insulin aspart) 0 unit (0 mL) SUB-Q AC #3 unit 02/12/18 [Rx Confirmed 12/07/21] buspirone 10 mg tablet 2 tab PO TID 12/08/18 [History Confirmed 12/07/21] cyclobenzaprine 10 mg tablet 10 mg PO TID PRN 12/08/18 [History Confirmed 12/07/21] gabapentin 600 mg tablet 1.5 tab PO TID 12/08/18 [History Confirmed 12/07/21] acetaminophen 325 mg tablet 975 mg PO TID PRN #30 tab 12/12/18 [Rx Confirmed 12/07/21] ibuprofen 600 mg tablet 600 mg PO Q6H PRN #30 tab 03/21/20 [Rx Confirmed 12/07/21] blood sugar diagnostic (Test N'Go Test) #50 ea 11/30/21 [Rx Confirmed 12/08/21] insulin glargine 100 unit/mL (3 mL) subcutaneous pen 10 unit (0.1 mL) SUBCUT DAILY #0 ml 12/09/21 [Rx Confirmed 12/07/21] Visit Medications (administered) Generic Name Dose Route Start Last Admin Trade Name Freq PRN Reason Stop Dose Admin Acetaminophen 650 mg 02/12/22 06:22 02/13/22 02:40 Acetaminophen 325 Mg Tablet PO 650 mg Q6HR PRN Administration Headache Buspirone HCl 20 mg 02/12/22 09:00 02/12/22 20:35 Buspirone 5 Mg Tablet PO 20 mg TID JOSE ANTONIO Administration Cyclobenzaprine HCl 10 mg 02/12/22 04:17 02/13/22 02:40 Cyclobenzaprine 10 Mg Tablet PO 10 mg TID PRN Administration pain Enoxaparin Sodium 40 mg 02/12/22 09:00 02/12/22 10:06 Enoxaparin 40 Mg/0.4 Ml Syringe SUBCUT 40 mg DAILY [facility] Administration Fidaxomicin 200 mg 02/12/22 10:45 02/12/22 20:34 Fidaxomicin 200 Mg Tablet PO 200 mg BID JOSE ANTONIO Administration Gabapentin 900 mg 02/12/22 09:00 02/12/22 20:35 Gabapentin 300 Mg Capsule PO 900 mg TID [facility] Administration Hydromorphone HCl 1 mg 02/12/22 16:05 02/13/22 05:55 Hydromorphone 1 Mg Inj IV 1 mg Q6H PRN Administration Pain, Moderate (4-6) NOREPINEPHRINE BITARTRATE/D5W 4 mg in 250 mls @ 30 mls/hr 02/12/22 04:15 02/12/22 18:58 Levophed IV 4 mcg/min TITRATE JOSE ANTONIO 15 mls/hr Titration Protocol 8 MCG/MIN Sodium Bicarbonate 150 meq/ 1,150 mls @ 150 mls/hr 02/12/22 10:15 02/13/22 04:03 Dextrose IV 150 mls/hr CONT JOSE ANTONIO Administration Piperacillin Sod/Tazobactam 100 mls @ 25 mls/hr 02/12/22 19:00 02/13/22 02:49 Sod 3.375 gm/ Sodium Chloride IV 25 mls/hr Q8H [facility] Administration Vancomycin HCl 1,000 mg in 200 mls @ 200 mls/hr 02/12/22 12:00 02/13/22 02:00 Vancomycin IV Infused Q12H [facility] Infusion Insulin Glargine 10 unit 02/12/22 09:00 02/12/22 13:30 Insulin Glargine 100 Unit/Ml 3ml Pen SUBCUT Not Given DAILY [facility] Insulin Human Lispro 0 unit 02/12/22 04:30 02/13/22 04:30 Insulin Lispro 100 Unit/Ml 3ml Vial SUBCUT Not Given Q6H [facility] Protocol Ondansetron HCl 4 mg 02/12/22 09:36 02/13/22 05:55 Ondansetron 4 Mg/2 Ml Inj IV 4 mg Q6HR PRN Administration Nausea And Vomiting Objective Labs Result Diagrams: 02/13/22 05:00 02/13/22 04:04 Labs: Laboratory Results - last 24 hr 02/12/22 02/12/22 02/12/22 06:50 10:10 10:10 WBC 53.0 H* RBC 3.06 L Hgb 8.2 L Hct 26.7 L MCV 87.2 MCH 26.9 MCHC 30.9 RDW 17.0 H Plt Count 611 H Neut % (Auto) Not Reportable Lymph % (Auto) Not Reportable [place] % (Auto) Not Reportable Eos % (Auto) Not Reportable Baso % (Auto) Not Reportable Lymph # (Auto) Not Reportable [place] # (Auto) Not Reportable Baso # (Auto) Not Reportable Total Counted 100 Seg Neutrophils % 83.0 H Band Neutrophils % 10.0 H Lymphocytes % (Manual) 2.0 L Monocytes % (Manual) 5.0 Eosinophils % (Manual) Neutrophils # (Manual) 60924 H Dohle Bodies 1+ H RBC Morphology See Hypochromasia Poikilocytosis 1+ H Anisocytosis 2+ H Juany Cells 1+ H Sodium 132 L Potassium 3.3 L Chloride 111 H Carbon Dioxide 11 L BUN 22 H Creatinine 0.79 Estimated GFR > 60 BUN/Creatinine Ratio 27.8 H Glucose 93 D Calcium 8.0 L Nasal Screen MRSA (PCR) Negative for mrsa C. difficile Tox (PCR) 02/12/22 02/12/22 02/12/22 16:00 21:44 22:05 WBC RBC Hgb Hct MCV MCH MCHC RDW Plt Count Neut % (Auto) Lymph % (Auto) [place] % (Auto) Eos % (Auto) Baso % (Auto) Lymph # (Auto) [place] # (Auto) Baso # (Auto) Total Counted Seg Neutrophils % Band Neutrophils % Lymphocytes % (Manual) Monocytes % (Manual) Eosinophils % (Manual) Neutrophils # (Manual) Dohle Bodies RBC Morphology Hypochromasia Poikilocytosis Anisocytosis Juany Cells Sodium 133 L 132 L Potassium 2.7 L* 3.6 Chloride 111 H 105 Carbon Dioxide 14 L 15 L BUN 20 H 19 H Creatinine 0.67 0.86 Estimated GFR > 60 > 60 BUN/Creatinine Ratio 29.9 H 22.1 H Glucose 254 H D 371 H D Calcium 7.4 L 7.2 L Nasal Screen MRSA (PCR) C. difficile Tox (PCR) Positive for c. diff H 02/13/22 02/13/22 04:04 05:00 WBC 43.9 H* RBC 2.80 L Hgb 7.6 L Hct 23.9 L MCV 85.3 MCH 27.2 MCHC 31.9 RDW 17.5 H Plt Count 535 H Neut % (Auto) Not Reportable Lymph % (Auto) Not Reportable [place] % (Auto) Not Reportable Eos % (Auto) Not Reportable Baso % (Auto) Not Reportable Lymph # (Auto) Not Reportable [place] # (Auto) Not Reportable Baso # (Auto) Not Reportable Total Counted 100 Seg Neutrophils % 87.0 H Band Neutrophils % 7.0 Lymphocytes % (Manual) 2.0 L Monocytes % (Manual) 3.0 Eosinophils % (Manual) 1.0 L Neutrophils # (Manual) 12733 H Dohle Bodies RBC Morphology See below Hypochromasia 1+ H Poikilocytosis Anisocytosis 2+ H Juany Cells Sodium 132 L Potassium 3.4 Chloride 104 Carbon Dioxide 19 L BUN 19 H Creatinine 0.80 Estimated GFR > 60 BUN/Creatinine Ratio 23.8 H Glucose 291 H Calcium 7.2 L Nasal Screen MRSA (PCR) C. difficile Tox (PCR) Exam Vital Signs (past 8 hours): - 02/13/22 00:15 02/13/22 00:30 02/13/22 00:35 Temperature Pulse Rate 101 H 99 H 100 H Respiratory Rate 20 33 H 33 H Blood Pressure 101/58 L Pulse Oximetry 100 100 100 02/13/22 01:00 02/13/22 01:30 02/13/22 02:00 Temperature Pulse Rate 101 H 111 H 104 H Respiratory Rate 34 H 25 H 21 Blood Pressure 101/59 L 91/55 L 100/58 L Pulse Oximetry 100 100 100 02/13/22 02:12 02/13/22 02:31 02/13/22 02:33 Temperature Pulse Rate 103 H 105 H 113 H Respiratory Rate 17 21 26 H Blood Pressure 88/40 L 86/53 L Pulse Oximetry 99 99 100 02/13/22 02:36 02/13/22 02:42 02/13/22 03:15 Temperature Pulse Rate 108 H 101 H 97 H Respiratory Rate 27 H 26 H 19 Blood Pressure 111/61 101/59 L Pulse Oximetry 100 100 100 02/13/22 03:30 02/13/22 03:47 02/13/22 04:00 Temperature 98.6 F Pulse Rate 96 H 101 H 95 H Respiratory Rate 19 36 H 20 Blood Pressure 104/56 L 98/58 L Pulse Oximetry 100 99 100 02/13/22 04:02 02/13/22 04:30 02/13/22 05:00 Temperature Pulse Rate 95 H 93 H 93 H Respiratory Rate 20 19 21 Blood Pressure 96/56 L 93/59 L Pulse Oximetry 99 99 99 02/13/22 05:30 02/13/22 06:00 02/13/22 06:10 Temperature Pulse Rate 93 H 93 H 96 H Respiratory Rate 18 17 28 H Blood Pressure 91/54 L 91/53 L Pulse Oximetry 99 98 98 02/13/22 06:30 Temperature Pulse Rate 95 H Respiratory Rate 16 Blood Pressure 92/55 L Pulse Oximetry 98 Oxygen Delivery Method Room Air Oxygen Flow Rate 0 Narrative Exam Narrative: Patient seen through two way A-V systemt. Pt. appears to be in no distress. Quality TeleICU VTE Deep Vein Thrombosis/Pulmonary Embolism Present on Admission: No Assessment & Plan Assessment & Plan narrative: Assessment Septic Shock C Diff non AG metabolic acidosis MIGUEL anemia DM Plan Assessment & Plan narrative: NEURO:Hx of CVA -- PT/OT and OOB as tolerated -- FAll precaution Pulm: -- Encourage IS and OOB as tolerated CVS: septic shock -wean down Levophed drip as long as MAP > 65 /FEN/Renal: (baseline Cr is 0.4, Cr on admission was 1 and now has improved to 0.8) -reduce Bicarb drip from 150 to 100 cc/hr as metabolic acidosis is improving, plan to d/c bicarb drip when bicarb > 22 -switch bicarb drip in D5 to bicarb drip in sterile water if possible to help bring down hypoglycemia -replace electrolytes as needed ID: C. Diff -continue Fidaxomicin for C. Diff -continue empiric Zosyn for now but if cultures are negative consider stopping Zosyn Heme: anemia is probably a combinatino of hemodilution and anemia of acute and chronic illness -type and screen -transfuse if hgb drops to < 7 ENDO: -hopefully BG will be better controlled if we can switch bicarb drip from d5 to sterile water CCT spent: 50 min addendum: Pharmacy says they are unable to prepare bicarb drip in sterile water. Hopefully we can start bicarb drip later today if serum Bicarb > 22 and BG will improve after that. Time Spent With Patient Critical Care time: I spent a total of [] minutes of critical care time on this patient's care today; this time is exclusive of procedural time.
--- NOTE | 2022-02-13 09:03 | DI.RAD.S_ITS ---
PROCEDURE: XR ABDOMEN 1V INDICATIONS: Abdominal pain in setting of C. diff TECHNIQUE: One view of the abdomen acquired. COMPARISON: [facility], CR, XR ABDOMEN 1V, 08/07/2021, 11:22. FINDINGS: Surgical changes and devices: Right femoral fixation screw is present. Bowel: Prominent colonic stool is present. There is distention of the colon. Soft tissues: No suspicious abdominal calcifications. Visualized solid organ contours appear normal in size. Bones: No suspicious bony lesions. IMPRESSION: Significant colonic stool consistent with constipation. Developing ileus versus obstruction cannot be excluded. Dictated by: Jessica Tovar M.D. on 02/13/2022 at 11:11 Approved by: Jessica Tovar M.D. on 02/13/2022 at 11:12
--- NOTE | 2022-02-13 09:16 | PT-IP ANOTE ---
Per Dr. Angel, pts WBC too high and w/ c-diff so not appropriate for therapy at this time. Will notify PT to d/c orders.
--- NOTE | 2022-02-13 09:38 | OT.IPNOTE ---
Asked Hospitalist whether pt is medically appropriate to be seen for therapy today. Dr. Angel states due to pt still having high WBC and c-diff discharge from therapy at this time. Therefore discharge OT eval orders.
[2022-02-13] MEDS: ENOXAPARIN 40 MG/0.4 ML SYRINGE SUBCUT (09:48)
[2022-02-13] MEDS: FIDAXOMICIN 200 MG TABLET PO ×2 (09:48→20:40)
[2022-02-13] MEDS: BUSPIRONE 5 MG TABLET 20 MG PO ×3 (09:49→20:39)
[2022-02-13] MEDS: GABAPENTIN 300 MG CAPSULE 900 MG PO ×3 (09:50→20:39)
[2022-02-13] MEDS: INSULIN GLARGINE 100 UNIT/ML 3ML PEN 7 UNIT SUBCUT (10:09)
[2022-02-13 10:37] LABS: Magnesium 1.8 mg/dL (1.6-2.3)
[2022-02-13 10:38] LABS: Phosphorous 2.2 mg/dL (2.5-4.5)
[2022-02-13 10:39] LABS: INR 1.4 (0.9-1.3); Prothrombin Time 15.9 SECONDS (10.1-12.7)
[2022-02-13] MEDS: NOREPINEPHRINE BITARTRATE/D5W 4 MG/250 ML PLAST..BAG 15 MG IV (12:02)
[2022-02-13] MEDS: MAGNESIUM SULFATE 2 GM/50 ML PIGGYBACK IV (12:02)
[2022-02-13] MEDS: INSULIN LISPRO 100 UNIT/ML 3ML VIAL SUBCUT ×3 (12:32→20:45)
[2022-02-13] MEDS: SODIUM BICARB 8.4% VIAL 100 MEQ in DEXTROSE 5% WATER 1,000 ML IV (13:57)
--- NOTE | 2022-02-13 14:40 | PM.PN.1 ---
Subjective Subjective Interval history: Patient endorses continued episodes of diarrhea, approximately 6-8 over 24 hrs. She endorses that they're voluminous and watery. She denies n/v, or abd pain, and denies any issues with PO intake. Exam Vital Signs (past 8 hours): - 02/13/22 06:45 02/13/22 06:50 02/13/22 06:55 Pulse Rate 95 H 96 H 96 H Respiratory Rate 23 24 23 Blood Pressure Pulse Oximetry 98 98 98 02/13/22 07:00 02/13/22 07:05 02/13/22 07:10 Pulse Rate 96 H 96 H 100 H Respiratory Rate 25 H 25 H 23 Blood Pressure 92/55 L Pulse Oximetry 97 98 99 02/13/22 07:15 02/13/22 07:20 02/13/22 07:25 Pulse Rate 98 H 98 H 105 H Respiratory Rate 21 23 26 H Blood Pressure Pulse Oximetry 97 98 87 L 02/13/22 07:26 02/13/22 07:30 02/13/22 07:35 Pulse Rate 101 H 97 H 96 H Respiratory Rate 27 H 14 15 Blood Pressure 93/62 91/56 L Pulse Oximetry 97 99 99 02/13/22 07:40 02/13/22 07:45 02/13/22 07:50 Pulse Rate 95 H 96 H 96 H Respiratory Rate 15 14 15 Blood Pressure Pulse Oximetry 98 98 98 02/13/22 07:55 02/13/22 08:00 02/13/22 08:05 Pulse Rate 96 H 96 H 96 H Respiratory Rate 14 15 16 Blood Pressure 93/55 L Pulse Oximetry 97 98 97 02/13/22 08:10 02/13/22 08:15 02/13/22 08:20 Pulse Rate 96 H 95 H 98 H Respiratory Rate 15 14 23 Blood Pressure Pulse Oximetry 98 99 99 02/13/22 08:25 02/13/22 08:30 02/13/22 08:35 Pulse Rate 98 H 99 H 103 H Respiratory Rate 18 20 31 H Blood Pressure 95/60 Pulse Oximetry 99 02/13/22 08:40 02/13/22 08:45 02/13/22 08:50 Pulse Rate 105 H 100 H 97 H Respiratory Rate 26 H 33 H 25 H Blood Pressure Pulse Oximetry 02/13/22 08:55 02/13/22 09:00 02/13/22 09:05 Pulse Rate 101 H 101 H 100 H Respiratory Rate 30 H 30 H 29 H Blood Pressure 105/65 Pulse Oximetry 02/13/22 09:10 02/13/22 09:15 02/13/22 09:20 Pulse Rate 99 H 99 H 97 H Respiratory Rate 26 H 32 H 22 Blood Pressure Pulse Oximetry 02/13/22 09:25 02/13/22 09:30 02/13/22 09:35 Pulse Rate 99 H 99 H 99 H Respiratory Rate 20 19 20 Blood Pressure 96/56 L Pulse Oximetry 02/13/22 09:40 02/13/22 09:45 02/13/22 09:50 Pulse Rate 100 H 101 H 102 H Respiratory Rate 20 20 26 H Blood Pressure Pulse Oximetry 02/13/22 09:55 02/13/22 10:00 02/13/22 10:05 Pulse Rate 99 H 96 H 97 H Respiratory Rate 18 20 20 Blood Pressure Pulse Oximetry 02/13/22 10:10 02/13/22 10:15 02/13/22 10:20 Pulse Rate 97 H 102 H 99 H Respiratory Rate 18 40 H 22 Blood Pressure Pulse Oximetry 02/13/22 10:25 02/13/22 10:30 02/13/22 10:35 Pulse Rate 103 H 97 H 97 H Respiratory Rate 28 H 21 24 Blood Pressure Pulse Oximetry 02/13/22 10:40 02/13/22 10:45 02/13/22 10:50 Pulse Rate 105 H 98 H 100 H Respiratory Rate 29 H 23 19 Blood Pressure Pulse Oximetry 02/13/22 10:55 02/13/22 11:00 02/13/22 11:31 Pulse Rate 100 H 101 H Respiratory Rate 20 18 Blood Pressure Pulse Oximetry 96 Oxygen Delivery Method Room Air Oxygen Flow Rate 0 Const Other: The patient is laying in bed comfortably upon my entering the room, in no apparent acute distress, although appears chronically ill and older than stated age Eyes Other: No scleral icterus appreciated Resp Other: Clear to auscultation bilaterally Cardio Other: RRR, with normal S1 and S2 heart sounds, and no extra heart sounds or murmurs appreciated GI Other: Soft, non-distended, non-tender, bowel sounds present Skin Other: No grossly abnormal skin lesions noted Extrem Other: Palpable dorsalis pedis pulses bilaterally Objective Labs Result Diagrams: 02/13/22 05:00 02/13/22 04:04 Labs: Laboratory Results - last 24 hr 02/12/22 02/12/22 02/12/22 06:50 16:00 21:44 WBC RBC Hgb Hct MCV MCH MCHC RDW Plt Count Neut % (Auto) Lymph % (Auto) Mcmullen % (Auto) Eos % (Auto) Baso % (Auto) Lymph # (Auto) Mcmullen # (Auto) Baso # (Auto) Total Counted Seg Neutrophils % Band Neutrophils % Lymphocytes % (Manual) Monocytes % (Manual) Eosinophils % (Manual) Neutrophils # (Manual) RBC Morphology Hypochromasia Anisocytosis PT INR Sodium 133 L 132 L Potassium 2.7 L* 3.6 Chloride 111 H 105 Carbon Dioxide 14 L 15 L BUN 20 H 19 H Creatinine 0.67 0.86 Estimated GFR > 60 > 60 BUN/Creatinine Ratio 29.9 H 22.1 H Glucose 254 H D 371 H D Calcium 7.4 L 7.2 L Phosphorus Magnesium Nasal Screen MRSA (PCR) Negative for mrsa C. difficile Tox (PCR) Blood Type Antibody Screen 02/12/22 02/13/22 02/13/22 22:05 04:04 05:00 WBC 43.9 H* RBC 2.80 L Hgb 7.6 L Hct 23.9 L MCV 85.3 MCH 27.2 MCHC 31.9 RDW 17.5 H Plt Count 535 H Neut % (Auto) Not Reportable Lymph % (Auto) Not Reportable Mcmullen % (Auto) Not Reportable Eos % (Auto) Not Reportable Baso % (Auto) Not Reportable Lymph # (Auto) Not Reportable Mcmullen # (Auto) Not Reportable Baso # (Auto) Not Reportable Total Counted 100 Seg Neutrophils % 87.0 H Band Neutrophils % 7.0 Lymphocytes % (Manual) 2.0 L Monocytes % (Manual) 3.0 Eosinophils % (Manual) 1.0 L Neutrophils # (Manual) 69141 H RBC Morphology See below Hypochromasia 1+ H Anisocytosis 2+ H PT INR Sodium 132 L Potassium 3.4 Chloride 104 Carbon Dioxide 19 L BUN 19 H Creatinine 0.80 Estimated GFR > 60 BUN/Creatinine Ratio 23.8 H Glucose 291 H Calcium 7.2 L Phosphorus Magnesium Nasal Screen MRSA (PCR) C. difficile Tox (PCR) Positive for c. diff H Blood Type Antibody Screen 02/13/22 02/13/22 02/13/22 10:16 10:16 10:16 WBC RBC Hgb Hct MCV MCH MCHC RDW Plt Count Neut % (Auto) Lymph % (Auto) Mcmullen % (Auto) Eos % (Auto) Baso % (Auto) Lymph # (Auto) Mcmullen # (Auto) Baso # (Auto) Total Counted Seg Neutrophils % Band Neutrophils % Lymphocytes % (Manual) Monocytes % (Manual) Eosinophils % (Manual) Neutrophils # (Manual) RBC Morphology Hypochromasia Anisocytosis PT INR Sodium Potassium Chloride Carbon Dioxide BUN Creatinine Estimated GFR BUN/Creatinine Ratio Glucose Calcium Phosphorus 2.2 L Magnesium 1.8 Nasal Screen MRSA (PCR) C. difficile Tox (PCR) Blood Type O Positive Antibody Screen Negative 02/13/22 10:16 WBC RBC Hgb Hct MCV MCH MCHC RDW Plt Count Neut % (Auto) Lymph % (Auto) Mcmullen % (Auto) Eos % (Auto) Baso % (Auto) Lymph # (Auto) Mcmullen # (Auto) Baso # (Auto) Total Counted Seg Neutrophils % Band Neutrophils % Lymphocytes % (Manual) Monocytes % (Manual) Eosinophils % (Manual) Neutrophils # (Manual) RBC Morphology Hypochromasia Anisocytosis PT 15.9 H INR 1.4 H Sodium Potassium Chloride Carbon Dioxide BUN Creatinine Estimated GFR BUN/Creatinine Ratio Glucose Calcium Phosphorus Magnesium Nasal Screen MRSA (PCR) C. difficile Tox (PCR) Blood Type Antibody Screen [facility] Medical History (Updated 02/12/22 @ 04:39 by Allan Lemus MD) Acute CVA (cerebrovascular accident) Alcohol intoxication Closed hip fracture COVID DKA (diabetic ketoacidoses) DKA (diabetic ketoacidosis) Fibromyalgia Gastroesophageal reflux disease Insulin dependent diabetes mellitus Lupus Osteoporosis Surgical History History of hip surgery Family History Mother Diabetes mellitus Congestive heart failure Pancreatic cancer Father Diabetes mellitus Brother Diabetes mellitus Pancreatitis Sister Drug overdose Social History household members: family Smoking Status: Former smoker alcohol intake: current Assessment & Plan Assessment & Plan narrative: Assessment: 1. C. diff colitis, status post recent abx use for UTI 2. Non-AG metabolic acidosis, likely due to diarrhea 3. Hypokalemia, likely secondary to GI losses 4. Thrombocytosis, likely reactive 5. Normocytic anemia, chronic, likely due to chronic inflammation 6. Insulin-dependent DM II 7. Acute on chronic severe protein-calorie malnutrition 8. Anxiety Plan: 1. PO fidaxomicin 200 mg bid on-board, started February 12. IV vancomycin and IV Zosyn started on February 12, too, for empiric coverage, given significant leukocytosis and no result on C. diff at that time. Will continue these IV abx's for today, and if leukocytosis (that is likely from C. diff) continues to improve tomorrow, then can likely de-escalate off these abx. 2. HCO3 has improved with IV bicarbonate drip. It is running in dextrose, and might make glucose management somewhat more challenging. Lantus 7 units given this morning for basal coverage. 3. Will continue to monitor and replenish as needed. 4. Will continue to monitor, and this is likely exacerbated by ongoing anemia. 5. Will continue to monitor, and transfuse for hemoglobin less than 7. 6. Lantus 7 units in the morning on-board, with insulin sliding scale. 7. This is likely adversely affecting all other comorbidities. Appreciate nutrition consult recommendations. 8. Will continue home buspirone. VTE prophylaxis: Lovenox 40 mg daily Code: Full Code I have utilized all available immediate resources to obtain, update, or verify the patient's current medications. Time Spent With Patient Critical Care time: I spent a total of [] minutes of critical care time on this patient's care today; this time is exclusive of procedural time. Quality VTE Deep Vein Thrombosis/Pulmonary Embolism Present on Admission: No MIPS - Admit I confirm the patient?s Advance Care Plan is present, Code status is documented, Surrogate decision maker is in patient?s record [If Yes, STOP here]: Yes
--- NOTE | 2022-02-13 14:48 | PT-IP ANOTE ---
per Dr. Angel. D/c pt at this time due to increase WBC and currently has c-diff.
--- NOTE | 2022-02-13 14:51 | PT.IPTN ---
Current Diagnoses Type 2 diabetes mellitus without complications (02/12/22) Hypokalemia (02/12/22) Hypotension, unspecified (02/12/22) Nausea with vomiting, unspecified (02/12/22) Diarrhea, unspecified (02/12/22) Physical Therapy Treatment Note M2 PT-IP Current Condition Start: 02/12/22 15:01 Freq: NEEDED Status: Active Protocol: Document 02/12/22 14:15 AB (Rec: 02/12/22 15:10 AB [id number]) Physical Therapy Current Condition Current Condition Evaluation Date 02/12/22 Treatment Diagnosis sepsis; difficulty in walking Onset Date 02/12/22 M3 PT-IP Subjective Start: 02/12/22 15:01 Freq: NEEDED Status: Active Protocol: Document 02/13/22 14:50 AB (Rec: 02/13/22 14:51 AB [id number]) Subjective Physical Therapy Visit Type Type Administrative Note Notes per hospitalist Dr. Angel. d/c pt at this time due to increase WBC and c-diff and not appropriate for PT. M7 PT-IP Assessment and Plan Start: 02/12/22 15:01 Freq: NEEDED Status: Active Protocol: Document 02/13/22 14:50 AB (Rec: 02/13/22 14:51 AB [id number]) PT Summary Assessment and Plan Frequency of Treatment Frequency Of Treatment Discharge
[2022-02-13] MEDS: LACTATED RINGERS 1,000 ML 1000 ML IV (15:29)
[2022-02-13 16:29] LABS: BUN Creatinine Ratio 22.2 (6-22); Blood Urea Nitrogen 16 mg/dL (7-17); Calcium 7.2 mg/dL (8.4-10.2); Carbon Dioxide 19 mmol/L (22-32); Chloride 101 mmol/L (98-107); Estimated Glomerular Filt Rate > 60 mL/min (>60); Glucose 178 mg/dL (70-100); HEMOLYSIS < 15 (0-50); Potassium 3.7 mmol/L (3.4-5.1); Sodium 135 mmol/L (137-145)
[2022-02-13 18:53] LABS: Hematocrit 25.7 % (36-46); Hemoglobin 8.1 g/dL (12.0-16.0); Mean Corpuscular HGB Conc 31.5 % (30-36); Mean Corpuscular Hemoglobin 27.1 PG (26-34); Mean Corpuscular Volume 86.1 fL (80-100); Platelet Count 583 X10^3/uL (150-400); Red Blood Cell Count 2.99 X10^6/uL (4.0-5.2); Red Cell Distribution Width 17.6 % (11.6-14.8)
[2022-02-13 19:06] LABS: Add Manual Diff / Slide Review YES; White Blood Cell Count 37.4 X10^3/uL (4.5-11.0)
[2022-02-13 19:22] LABS: Neutrophils Absolute Manual 32912 /uL (3000-5900); Total Cells Counted 100
[2022-02-13 19:24] LABS: Dohle Bodies 1+; Hypochromasia 1+; Schistocytes 1+
--- NOTE | 2022-02-13 20:23 | PM.ICURNDS ---
- :: This patient was seen via real time interactive two-way audiovisual telecommunication. spoke with RN and hospitalist at bedside. Patietn BP remains borderline - but off levophed, will start LR @ 200cc hr given her continual GI losses. will likely need levophe to be retarte but her pressor burden has been low. cont fidaxomycin
--- NOTE | 2022-02-13 20:27 | PC.NURSE ---
Addendum entered by Alison Loyola R.N. 02/14/22 06:45: 0645- Patient temperature broke during the night. Heart rate is now 95 NSR. Continues to have frequent urine and stool mixed. Serum CO2 is now normal. WBC is trending down. Weight is up from baseline but in line with I/O. Plan for PICC placement and removeal of central line after line placed. Send the tip for culture. Levophed at 2 zo/min to keep mean greater than 65. Addendum entered by Alison Loyola R.N. 02/13/22 23:43: 2345- Hospitalist informed of patient changes. Orders received. Addendum entered by Alison Loyola R.N. 02/13/22 23:02: 2300- Patient flushed and she is desaturating on room air to 88%. Lungs are fine bibasilar crackles Right greater than left. Heart rate remains elevated at 118-120 BPM. Oral temperature 101.7. Tylenol po given per order. Intensive care MD Dr. Crespo updated and no orders at this time. Addendum entered by Alison Loyola R.N. 02/13/22 21:41: 2100- Levophed restarted for BP below parameters. Addendum entered by Alison Loyola R.N. 02/13/22 21:21: 2100- Straight cath per order and urine sent. Patient tolerated well. Original Note: 1999- Rounds complete with Hospitalist and Senior Front End Developer. Patient HR discussed, change D5 with Bicarb to LR at 200 Hr. Labs reviewed, no transfusion yet will monitor. Will In/Out cath to obtain urine sample. Will restart Levophed is BP remains soft.
[2022-02-13] MEDS: LACTATED RINGERS 1,000 ML 200 ML IV (20:39)
[2022-02-13 21:23] LABS: Appearance Urine UA CLEAR; Bilirubin Urine UA NEGATIVE (NEGATIVE); Color Urine UA YELLOW; Glucose Urine UA 1+ g/dL (Negative); Ketones Urine UA NEGATIVE (NEGATIVE); Leukocyte Esterase Urine UA 1+ (NEGATIVE); Nitrite Urine UA NEGATIVE (Negative); Occult Blood Urine UA 2+ (Negative); Protein Urine UA 1+ (Negative); Urobilinogen Urine UA 0.2 E.U./dL (0.2)
[2022-02-13 21:29] LABS: pH Urine UA 7.5 (4.5-8.0)
[2022-02-13 21:30] LABS: Bacteria Urine Occasional (0-1); RBC Urine 0-1/HPF (0-5/HPF); Squamous Epithelial Cell Urine 0-1 /HPF (0-5/HPF); WBC Urine 5-10/HPF (0-5/HPF)
--- NOTE | 2022-02-13 23:40 | DI.RAD.S_ITS ---
PROCEDURE: XR CHEST 1V INDICATIONS: desaturation TECHNIQUE: One view of the chest was acquired. COMPARISON: [facility], CR, XR CHEST 1V, 02/12/2022, 2:18. [facility], CR, XR CHEST FOR PICC 1V, 12/08/2021, 10:17. FINDINGS: Surgical changes and devices: Central line from right-sided approach extends into the superior right atrium. Lungs and pleura: Lungs are clear. No pleural effusions or pneumothorax. Mediastinum: Mediastinal contours appear normal. Heart size is normal. Bones and chest wall: No suspicious bony lesions. Overlying soft tissues appear unremarkable. IMPRESSION: No pneumonia found. Reduced inspiratory volume. Central line from right-sided approach extends into the superior right atrium. Dictated by: Jose Walker M.D. on 02/14/2022 at 0:07 Approved by: Jose Walker M.D. on 02/14/2022 at 0:08
[2022-02-14] VITALS (127 sets, daily range): BP systolic 77–134; BP diastolic 50–94; PULSE 77–126; RESP 9–43; TEMP 36.7–37.2; O2SAT 86–100
[2022-02-14] MEDS: LACTATED RINGERS 1,000 ML 200 ML IV ×3 (01:27→12:12)
[2022-02-14] MEDS: HYDROMORPHONE 1 MG INJ IV ×4 (01:27→18:43)
[2022-02-14] MEDS: PIPERACILLIN/TAZO 3.375 GM in SODIUM CHLORIDE 0.9% 100 ML IV ×3 (02:49→18:43)
[2022-02-14 05:20] LABS: BUN Creatinine Ratio 18.3 (6-22); Blood Urea Nitrogen 13 mg/dL (7-17); Calcium 6.9 mg/dL (8.4-10.2); Carbon Dioxide 26 mmol/L (22-32); Chloride 101 mmol/L (98-107); Estimated Glomerular Filt Rate > 60 mL/min (>60); Glucose 183 mg/dL (70-100); HEMOLYSIS < 15 (0-50); Magnesium 2.2 mg/dL (1.6-2.3); Phosphorous 2.2 mg/dL (2.5-4.5); Potassium 3.5 mmol/L (3.4-5.1); Sodium 130 mmol/L (137-145)
[2022-02-14 05:22] LABS: Hemoglobin 7.1 g/dL (12.0-16.0); Mean Corpuscular HGB Conc 32.2 % (30-36); Mean Corpuscular Hemoglobin 26.9 PG (26-34); Mean Corpuscular Volume 83.6 fL (80-100); Platelet Count 501 X10^3/uL (150-400); Red Blood Cell Count 2.65 X10^6/uL (4.0-5.2); Red Cell Distribution Width 17.5 % (11.6-14.8); White Blood Cell Count 26.8 X10^3/uL (4.5-11.0)
[2022-02-14 05:25] LABS: Add Manual Diff / Slide Review YES; Hematocrit 22.2 % (36-46)
[2022-02-14 05:41] LABS: Neutrophils Absolute Manual 21708 /uL (3000-5900); Total Cells Counted 100
[2022-02-14 05:42] LABS: Anisocytosis 2+; Hypochromasia 1+; Poikilocytosis 1+
[2022-02-14] MEDS: SODIUM,POTASSIUM PHOSPHATES PACKET 2 EACH PO (08:38)
[2022-02-14] MEDS: FIDAXOMICIN 200 MG TABLET PO ×2 (08:38→20:23)
[2022-02-14] MEDS: GABAPENTIN 300 MG CAPSULE 900 MG PO ×3 (08:38→20:24)
[2022-02-14] MEDS: BUSPIRONE 5 MG TABLET 20 MG PO ×3 (08:38→20:23)
[2022-02-14] MEDS: INSULIN LISPRO 100 UNIT/ML 3ML VIAL SUBCUT ×2 (08:39→17:15)
[2022-02-14] MEDS: ENOXAPARIN 40 MG/0.4 ML SYRINGE SUBCUT (08:39)
--- NOTE | 2022-02-14 09:47 | PM.PN.EICU ---
Subjective Subjective If camera was activated, add TeleICU A-V statement: Patient seen through 2 way audio-visual system Interval history: Patient summary: 46-year-old with PMH of DM anxiety, GERD, fibromyalgia, lupus, osteoporosis, CVA 2020, COVID PNA 2020, and recent E. Coli UTI admitted 02/11/22 with septic shock, non-AG metabolic acidosis, and C. Diff. Recent Events: Pt still having diarrhea but WBC trending down and Levophed drip requirement reduced to 2 mcg/min (was 4 mcg/min). Metabolic acidosis resolved and therefore Bicarb drip stopped. Current Medications Current Medications Medications: Home Medications insulin aspart U-100 100 unit/mL (3 mL) subcutaneous pen (Novolog Flexpen U-100 Insulin aspart) 0 unit (0 mL) SUB-Q AC #3 unit 02/12/18 [Rx Confirmed 12/07/21] buspirone 10 mg tablet 2 tab PO TID 12/08/18 [History Confirmed 12/07/21] cyclobenzaprine 10 mg tablet 10 mg PO TID PRN 12/08/18 [History Confirmed 12/07/21] gabapentin 600 mg tablet 1.5 tab PO TID 12/08/18 [History Confirmed 12/07/21] acetaminophen 325 mg tablet 975 mg PO TID PRN #30 tab 12/12/18 [Rx Confirmed 12/07/21] ibuprofen 600 mg tablet 600 mg PO Q6H PRN #30 tab 03/21/20 [Rx Confirmed 12/07/21] blood sugar diagnostic (Test N'Go Test) #50 ea 11/30/21 [Rx Confirmed 12/08/21] insulin glargine 100 unit/mL (3 mL) subcutaneous pen 10 unit (0.1 mL) SUBCUT DAILY #0 ml 12/09/21 [Rx Confirmed 12/07/21] Visit Medications (administered) Generic Name Dose Route Start Last Admin Trade Name Freq PRN Reason Stop Dose Admin Acetaminophen 650 mg 02/12/22 06:22 02/13/22 22:58 Acetaminophen 325 Mg Tablet PO 650 mg Q6HR PRN Administration Headache Buspirone HCl 20 mg 02/12/22 09:00 02/14/22 08:38 Buspirone 5 Mg Tablet PO 20 mg TID JOSE ANTONIO Administration Cyclobenzaprine HCl 10 mg 02/12/22 04:17 02/13/22 16:45 Cyclobenzaprine 10 Mg Tablet PO 10 mg TID PRN Administration pain Enoxaparin Sodium 40 mg 02/12/22 09:00 02/14/22 08:39 Enoxaparin 40 Mg/0.4 Ml Syringe SUBCUT 40 mg DAILY JOSE ANTONIO Administration Fidaxomicin 200 mg 02/12/22 10:45 02/14/22 08:38 Fidaxomicin 200 Mg Tablet PO 200 mg BID JOSE ANTONIO Administration Gabapentin 900 mg 02/12/22 09:00 02/14/22 08:38 Gabapentin 300 Mg Capsule PO 900 mg TID [facility] Administration Heparin Sodium (Porcine) 50 unit 02/13/22 21:00 02/14/22 08:39 Heparin Flush (Cl/Picc/Mid-Line) 50 Unit/5 Ml Syringe IV 50 unit BID JOSE ANTONIO Administration Hydromorphone HCl 1 mg 02/12/22 16:05 02/14/22 08:58 Hydromorphone 1 Mg Inj IV 1 mg Q6H PRN Administration Pain, Moderate (4-6) NOREPINEPHRINE BITARTRATE/D5W 4 mg in 250 mls @ 30 mls/hr 02/12/22 04:15 02/13/22 21:00 Levophed IV 2 mcg/min TITRATE JOSE ANTONIO 7.5 mls/hr Titration Protocol 8 MCG/MIN Piperacillin Sod/Tazobactam 100 mls @ 25 mls/hr 02/12/22 19:00 02/14/22 08:39 Sod 3.375 gm/ Sodium Chloride IV Infused Q8H JOSE ANTONIO Infusion Lactated Ringer's 1,000 mls @ 200 mls/hr 02/13/22 20:30 02/14/22 06:31 Lactated Ringers IV 200 mls/hr CONT [facility] Administration Insulin Human Lispro 0 unit 02/14/22 08:15 02/14/22 08:39 Insulin Lispro 100 Unit/Ml 3ml Vial SUBCUT 4 unit ACHS [facility] Administration Protocol Ondansetron HCl 4 mg 02/12/22 09:36 02/13/22 18:29 Ondansetron 4 Mg/2 Ml Inj IV 4 mg Q6HR PRN Administration Nausea And Vomiting Objective Labs Result Diagrams: 02/14/22 05:00 02/14/22 05:00 Labs: Laboratory Results - last 24 hr 02/13/22 02/13/22 02/13/22 10:16 10:16 10:16 WBC RBC Hgb Hct MCV MCH MCHC RDW Plt Count Neut % (Auto) Lymph % (Auto) Alexander % (Auto) Eos % (Auto) Baso % (Auto) Lymph # (Auto) Alexander # (Auto) Baso # (Auto) Total Counted Seg Neutrophils % Band Neutrophils % Lymphocytes % (Manual) Monocytes % (Manual) Eosinophils % (Manual) Neutrophils # (Manual) Dohle Bodies RBC Morphology Hypochromasia Poikilocytosis Anisocytosis Schistocytes PT INR Sodium Potassium Chloride Carbon Dioxide BUN Creatinine Estimated GFR BUN/Creatinine Ratio Glucose Calcium Phosphorus 2.2 L Magnesium 1.8 Urine Color Urine Appearance Urine pH Ur Specific Adams Urine Protein Urine Glucose (UA) Urine Ketones Urine Occult Blood Urine Nitrate Urine Bilirubin Urine Urobilinogen Ur Leukocyte Esterase Urine RBC Urine WBC Ur Squamous Epith Cells Urine Bacteria Ur Culture Indicated? Blood Type O Positive Antibody Screen Negative 02/13/22 02/13/22 02/13/22 10:16 15:20 15:30 WBC 37.4 H* RBC 2.99 L Hgb 8.1 L Hct 25.7 L MCV 86.1 MCH 27.1 MCHC 31.5 RDW 17.6 H Plt Count 583 H Neut % (Auto) Not Reportable Lymph % (Auto) Not Reportable Alexander % (Auto) Not Reportable Eos % (Auto) Not Reportable Baso % (Auto) Not Reportable Lymph # (Auto) Not Reportable Alexander # (Auto) Not Reportable Baso # (Auto) Not Reportable Total Counted 100 Seg Neutrophils % 70.0 Band Neutrophils % 18.0 H Lymphocytes % (Manual) 4.0 L Monocytes % (Manual) 8.0 Eosinophils % (Manual) Neutrophils # (Manual) [id number] H Dohle Bodies 1+ H RBC Morphology See below Hypochromasia 1+ H Poikilocytosis Anisocytosis Schistocytes 1+ H PT 15.9 H INR 1.4 H Sodium 135 L Potassium 3.7 Chloride 101 Carbon Dioxide 19 L BUN 16 Creatinine 0.72 Estimated GFR > 60 BUN/Creatinine Ratio 22.2 H Glucose 178 H D Calcium 7.2 L Phosphorus Magnesium Urine Color Urine Appearance Urine pH Ur Specific Adams Urine Protein Urine Glucose (UA) Urine Ketones Urine Occult Blood Urine Nitrate Urine Bilirubin Urine Urobilinogen Ur Leukocyte Esterase Urine RBC Urine WBC Ur Squamous Epith Cells Urine Bacteria Ur Culture Indicated? Blood Type Antibody Screen 02/13/22 02/14/22 02/14/22 21:21 05:00 05:00 WBC 26.8 H RBC 2.65 L Hgb 7.1 L Hct 22.2 L MCV 83.6 MCH 26.9 MCHC 32.2 RDW 17.5 H Plt Count 501 H Neut % (Auto) Not Reportable Lymph % (Auto) Not Reportable Alexander % (Auto) Not Reportable Eos % (Auto) Not Reportable Baso % (Auto) Not Reportable Lymph # (Auto) Not Reportable Alexander # (Auto) Not Reportable Baso # (Auto) Not Reportable Total Counted 100 Seg Neutrophils % 67.0 Band Neutrophils % 14.0 H Lymphocytes % (Manual) 7.0 L Monocytes % (Manual) 10.0 Eosinophils % (Manual) 2.0 Neutrophils # (Manual) [id number] H Dohle Bodies RBC Morphology See below Hypochromasia 1+ H Poikilocytosis 1+ H Anisocytosis 2+ H Schistocytes PT INR Sodium 130 L Potassium 3.5 Chloride 101 Carbon Dioxide 26 BUN 13 Creatinine 0.71 Estimated GFR > 60 BUN/Creatinine Ratio 18.3 Glucose 183 H Calcium 6.9 L Phosphorus 2.2 L Magnesium 2.2 Urine Color Yellow Urine Appearance Clear Urine pH 7.5 Ur Specific Adams 1.010 Urine Protein 1+ H Urine Glucose (UA) 1+ H Urine Ketones Negative Urine Occult Blood 2+ H Urine Nitrate Negative Urine Bilirubin Negative Urine Urobilinogen 0.2 Ur Leukocyte Esterase 1+ H Urine RBC 0-1/hpf D Urine WBC 5-10/hpf H Ur Squamous Epith Cells 0-1 /hpf Urine Bacteria Occasional (0-1) D Ur Culture Indicated? Culture not indicate Blood Type Antibody Screen Exam Vital Signs (past 8 hours): - 02/14/22 01:50 02/14/22 01:55 02/14/22 02:00 Temperature Pulse Rate 106 H 107 H 105 H Respiratory Rate 15 15 14 Blood Pressure 94/55 L Pulse Oximetry 100 100 100 02/14/22 02:05 02/14/22 02:10 02/14/22 02:15 Temperature Pulse Rate 107 H 108 H 109 H Respiratory Rate 13 13 14 Blood Pressure Pulse Oximetry 100 100 100 02/14/22 02:20 02/14/22 02:25 02/14/22 02:30 Temperature Pulse Rate 109 H 108 H 108 H Respiratory Rate 13 15 13 Blood Pressure 94/50 L Pulse Oximetry 100 98 98 02/14/22 02:35 02/14/22 02:40 02/14/22 02:45 Temperature Pulse Rate 109 H 115 H 113 H Respiratory Rate 23 27 H 21 Blood Pressure Pulse Oximetry 98 96 96 02/14/22 02:50 02/14/22 02:55 02/14/22 03:00 Temperature Pulse Rate 113 H 116 H 111 H Respiratory Rate 38 H 25 H 18 Blood Pressure 96/51 L Pulse Oximetry 96 96 98 02/14/22 03:05 02/14/22 03:10 02/14/22 03:15 Temperature Pulse Rate 105 H 104 H 103 H Respiratory Rate 17 13 9 L Blood Pressure Pulse Oximetry 100 99 100 02/14/22 03:20 02/14/22 03:25 02/14/22 03:30 Temperature Pulse Rate 102 H 105 H 108 H Respiratory Rate 10 L 23 25 H Blood Pressure 95/65 Pulse Oximetry 100 99 99 02/14/22 03:35 02/14/22 03:40 02/14/22 03:45 Temperature Pulse Rate 102 H 102 H 102 H Respiratory Rate 15 15 14 Blood Pressure Pulse Oximetry 99 99 98 02/14/22 03:50 02/14/22 03:55 02/14/22 04:00 Temperature Pulse Rate 101 H 101 H 101 H Respiratory Rate 15 15 15 Blood Pressure 99/58 L Pulse Oximetry 98 98 98 02/14/22 04:05 02/14/22 04:10 02/14/22 04:15 Temperature Pulse Rate 101 H 100 H 101 H Respiratory Rate 14 16 17 Blood Pressure Pulse Oximetry 98 98 98 02/14/22 04:20 02/14/22 04:25 02/14/22 04:30 Temperature Pulse Rate 100 H 100 H 101 H Respiratory Rate 15 16 15 Blood Pressure 95/55 L Pulse Oximetry 98 98 97 02/14/22 04:35 02/14/22 04:40 02/14/22 04:45 Temperature Pulse Rate 100 H 100 H 105 H Respiratory Rate 16 17 20 Blood Pressure Pulse Oximetry 98 98 02/14/22 04:50 02/14/22 04:55 02/14/22 05:00 Temperature 98.9 F Pulse Rate 112 H 101 H 99 H Respiratory Rate 34 H 17 17 Blood Pressure 92/52 L Pulse Oximetry 96 98 98 02/14/22 05:05 02/14/22 05:10 02/14/22 05:15 Temperature Pulse Rate 98 H 97 H 98 H Respiratory Rate 19 12 16 Blood Pressure Pulse Oximetry 98 98 98 02/14/22 05:20 02/14/22 05:25 02/14/22 05:30 Temperature Pulse Rate 97 H 97 H 97 H Respiratory Rate 15 16 15 Blood Pressure 99/59 L Pulse Oximetry 98 98 98 02/14/22 05:35 02/14/22 05:40 02/14/22 05:45 Temperature Pulse Rate 98 H 98 H 100 H Respiratory Rate 17 18 17 Blood Pressure Pulse Oximetry 98 98 98 02/14/22 05:50 02/14/22 05:55 02/14/22 06:00 Temperature Pulse Rate 97 H 97 H 97 H Respiratory Rate 16 19 15 Blood Pressure 92/52 L Pulse Oximetry 98 98 98 02/14/22 06:05 02/14/22 06:10 02/14/22 06:15 Temperature Pulse Rate 97 H 97 H 97 H Respiratory Rate 15 16 14 Blood Pressure Pulse Oximetry 99 98 98 02/14/22 06:20 02/14/22 06:25 02/14/22 06:30 Temperature Pulse Rate 96 H 106 H 106 H Respiratory Rate 19 37 H 31 H Blood Pressure 82/52 L Pulse Oximetry 98 02/14/22 06:35 02/14/22 06:38 02/14/22 06:40 Temperature Pulse Rate 104 H 96 H 97 H Respiratory Rate 27 H 19 18 Blood Pressure 93/50 L Pulse Oximetry 100 99 02/14/22 07:00 02/14/22 07:30 02/14/22 08:00 Temperature Pulse Rate 95 H 96 H 97 H Respiratory Rate 17 20 20 Blood Pressure 91/53 L 95/55 L 96/53 L Pulse Oximetry 99 99 02/14/22 08:33 02/14/22 09:00 02/14/22 09:30 Temperature Pulse Rate 100 H 101 H 100 H Respiratory Rate 20 26 H 14 Blood Pressure 98/57 L 118/57 L 102/60 Pulse Oximetry 96 98 98 Oxygen Delivery Method Nasal Cannula Oxygen Flow Rate 0 Narrative Exam Narrative: Pt. seen sitting comfortably in bed. She is alert and conversant. Quality TeleICU VTE Deep Vein Thrombosis/Pulmonary Embolism Present on Admission: No Assessment & Plan Assessment & Plan narrative: Septic Shock ?C Diff non AG metabolic acidosis-resolved MIGUEL anemia DM Plan Assessment & Plan narrative: NEURO:Hx of CVA -- PT/OT and OOB as tolerated -- FAll precaution Pulm: -- Encourage IS and OOB as tolerated CVS: septic shock -wean down Levophed drip as long as MAP > 65 /FEN/Renal: (baseline Cr is 0.4, Cr on admission was 1 and now has improved to 0.7) -reduce maintenance fluid from 200 cc/hr to 100 cc/hr -replace electrolytes as needed ID: C. Diff -continue Fidaxomicin for C. Diff -continue empiric Zosyn for now but if cultures are negative consider stopping Zosyn Heme: anemia is probably a combinatino of hemodilution and anemia of acute and chronic illness -type and screen -transfuse if hgb drops to < 7 ENDO: -BG improved compared yesterday since bicarb drip stopped Ppx: lovenox CCT spent 40 min Time Spent With Patient Critical Care time: I spent a total of [] minutes of critical care time on this patient's care today; this time is exclusive of procedural time.
--- NOTE | 2022-02-14 11:43 | DI.RAD.S_ITS ---
PROCEDURE: XR CHEST FOR PICC 1V INDICATIONS: PICC placement COMPARISON: [facility], , XR CHEST 1V, 02/13/2022, 23:43. FINDINGS: PICC was placed by the intravenous therapy team from the right side. Fluoroscopic spot film demonstrates the tip of PICC projecting to the area of the right atrium. This could be withdrawn by roughly 30 mm. IMPRESSION: Tip of PICC projects to the area of right atrium. Dictated by: Maura Barron M.D. on 02/14/2022 at 12:04 Approved by: Maura Barron M.D. on 02/14/2022 at 12:04
[2022-02-14 12:36] LABS: C difficie Toxins A and B, EIA Positive (Negative)
[2022-02-14] MEDS: ACETAMINOPHEN 325 MG TABLET 650 MG PO ×2 (12:38→22:09)
[2022-02-14] MEDS: CYCLOBENZAPRINE 10 MG TABLET PO (12:38)
[2022-02-14] MEDS: FUROSEMIDE 20 MG/2 ML VIAL IV (13:56)
--- NOTE | 2022-02-14 13:58 | P.PN_ITS ---
Subjective Subjective Date Patient Seen: 02/14/22 Interval history: 46-year-old female with insulin-dependent diabetes admitted with septic shock and severe C difficile colitis. Blood cultures have been negative. Urine culture was obtained day after admission with patient already on Zosyn. She is on fidaxomicin for the C diff. Patient still has frequent diarrhea and complaining of crampy abdominal pain. WBC improving. She remains on small amount of Levophed support. She has been aggressively hydrated with 17+ L intake. O2 sats normal but she sounds wet on exam. Exam Vital Signs (past 8 hours): - 02/14/22 06:00 02/14/22 06:05 02/14/22 06:10 Pulse Rate 97 H 97 H 97 H Respiratory Rate 15 15 16 Blood Pressure 92/52 L Pulse Oximetry 98 99 98 02/14/22 06:15 02/14/22 06:20 02/14/22 06:25 Pulse Rate 97 H 96 H 106 H Respiratory Rate 14 19 37 H Blood Pressure Pulse Oximetry 98 98 02/14/22 06:30 02/14/22 06:35 02/14/22 06:38 Pulse Rate 106 H 104 H 96 H Respiratory Rate 31 H 27 H 19 Blood Pressure 82/52 L 93/50 L Pulse Oximetry 100 02/14/22 06:40 02/14/22 07:00 02/14/22 07:30 Pulse Rate 97 H 95 H 96 H Respiratory Rate 18 17 20 Blood Pressure 91/53 L 95/55 L Pulse Oximetry 99 99 99 02/14/22 08:00 02/14/22 08:33 02/14/22 09:00 Pulse Rate 97 H 100 H 101 H Respiratory Rate 20 20 26 H Blood Pressure 96/53 L 98/57 L 118/57 L Pulse Oximetry 96 98 02/14/22 09:30 02/14/22 10:00 02/14/22 10:59 Pulse Rate 100 H 101 H 109 H Respiratory Rate 14 24 Blood Pressure 102/60 101/63 Pulse Oximetry 98 99 93 02/14/22 11:00 02/14/22 11:30 02/14/22 12:03 Pulse Rate 109 H 108 H 110 H Respiratory Rate 27 H 15 Blood Pressure 106/67 Pulse Oximetry 99 98 86 L 02/14/22 12:05 02/14/22 12:30 02/14/22 13:00 Pulse Rate 111 H 111 H 111 H Respiratory Rate 27 H 16 34 H Blood Pressure 126/94 H 112/69 105/58 L Pulse Oximetry 99 98 95 02/14/22 13:30 02/14/22 13:36 Pulse Rate 110 H 111 H Respiratory Rate 22 20 Blood Pressure 109/60 Pulse Oximetry Oxygen Delivery Method Room Air Oxygen Flow Rate 0 Narrative Exam Narrative: General: Alert, NAD Lungs: Breathing nonlabored, right lower lobe crackles present Heart: Tachycardic, regular rhythm Abdomen: Soft Extremities: No edema, there is raised keratotic lesion on dorsum of left hand which looks irritated but not infected Neurological: Normal affect and speech Objective Labs Result Diagrams: 02/14/22 05:00 02/14/22 05:00 Labs: Laboratory Results - last 24 hr 02/12/22 02/13/22 02/13/22 22:05 15:20 15:30 WBC 37.4 H* RBC 2.99 L Hgb 8.1 L Hct 25.7 L MCV 86.1 MCH 27.1 MCHC 31.5 RDW 17.6 H Plt Count 583 H Neut % (Auto) Not Reportable Lymph % (Auto) Not Reportable Jewell % (Auto) Not Reportable Eos % (Auto) Not Reportable Baso % (Auto) Not Reportable Lymph # (Auto) Not Reportable Jewell # (Auto) Not Reportable Baso # (Auto) Not Reportable Total Counted 100 Seg Neutrophils % 70.0 Band Neutrophils % 18.0 H Lymphocytes % (Manual) 4.0 L Monocytes % (Manual) 8.0 Eosinophils % (Manual) Neutrophils # (Manual) 38131 H Dohle Bodies 1+ H RBC Morphology See below Hypochromasia 1+ H Poikilocytosis Anisocytosis Schistocytes 1+ H Sodium 135 L Potassium 3.7 Chloride 101 Carbon Dioxide 19 L BUN 16 Creatinine 0.72 Estimated GFR > 60 BUN/Creatinine Ratio 22.2 H Glucose 178 H D Calcium 7.2 L Phosphorus Magnesium Urine Color Urine Appearance Urine pH Ur Specific Lynn Urine Protein Urine Glucose (UA) Urine Ketones Urine Occult Blood Urine Nitrate Urine Bilirubin Urine Urobilinogen Ur Leukocyte Esterase Urine RBC Urine WBC Ur Squamous Epith Cells Urine Bacteria Ur Culture Indicated? C. diff Toxin A&B (EIA) Positive A 02/13/22 02/14/22 02/14/22 21:21 05:00 05:00 WBC 26.8 H RBC 2.65 L Hgb 7.1 L Hct 22.2 L MCV 83.6 MCH 26.9 MCHC 32.2 RDW 17.5 H Plt Count 501 H Neut % (Auto) Not Reportable Lymph % (Auto) Not Reportable Jewell % (Auto) Not Reportable Eos % (Auto) Not Reportable Baso % (Auto) Not Reportable Lymph # (Auto) Not Reportable Jewell # (Auto) Not Reportable Baso # (Auto) Not Reportable Total Counted 100 Seg Neutrophils % 67.0 Band Neutrophils % 14.0 H Lymphocytes % (Manual) 7.0 L Monocytes % (Manual) 10.0 Eosinophils % (Manual) 2.0 Neutrophils # (Manual) [id number] H Dohle Bodies RBC Morphology See below Hypochromasia 1+ H Poikilocytosis 1+ H Anisocytosis 2+ H Schistocytes Sodium 130 L Potassium 3.5 Chloride 101 Carbon Dioxide 26 BUN 13 Creatinine 0.71 Estimated GFR > 60 BUN/Creatinine Ratio 18.3 Glucose 183 H Calcium 6.9 L Phosphorus 2.2 L Magnesium 2.2 Urine Color Yellow Urine Appearance Clear Urine pH 7.5 Ur Specific Lynn 1.010 Urine Protein 1+ H Urine Glucose (UA) 1+ H Urine Ketones Negative Urine Occult Blood 2+ H Urine Nitrate Negative Urine Bilirubin Negative Urine Urobilinogen 0.2 Ur Leukocyte Esterase 1+ H Urine RBC 0-1/hpf D Urine WBC 5-10/hpf H Ur Squamous Epith Cells 0-1 /hpf Urine Bacteria Occasional (0-1) D Ur Culture Indicated? Culture not indicate C. diff Toxin A&B (EIA) [facility] Medical History (Updated 02/12/22 @ 04:39 by Allan Lemus MD) Acute CVA (cerebrovascular accident) Alcohol intoxication Closed hip fracture COVID DKA (diabetic ketoacidoses) DKA (diabetic ketoacidosis) Fibromyalgia Gastroesophageal reflux disease Insulin dependent diabetes mellitus Lupus Osteoporosis Surgical History History of hip surgery Family History Mother Diabetes mellitus Congestive heart failure Pancreatic cancer Father Diabetes mellitus Brother Diabetes mellitus Pancreatitis Sister Drug overdose Social History household members: family Smoking Status: Former smoker alcohol intake: current Assessment & Plan Assessment & Plan narrative: 1. C. diff colitis, status post recent abx use for UTI 2. Non-AG metabolic acidosis, likely due to diarrhea 3. Septic shock, now fluid overloaded 4. Thrombocytosis, likely reactive 5. Normocytic anemia, chronic, likely due to chronic inflammation 6. Insulin-dependent DM II 7. Acute on chronic severe protein-calorie malnutrition 8. Anxiety 9. Hypokalemia Plan: 1. PO fidaxomicin 200 mg bid on-board, started February 12. IV vancomycin and IV Zosyn started on February 12, too, for empiric coverage, given significant leukocytosis and no result on C. diff at that time. Will continue these IV abx's for today, and if leukocytosis (that is likely from C. diff) continues to improve tomorrow, then can likely de-escalate off these abx. 2. Serum CO2 corrected with IV bicarbonate drip 3. Dec LR to 100 cc/hour, Lasix 20 mg IV on 02/14, continue Levophed pressure support as needed 4. Monitor lytes and replete as needed 5. Transfuse for hemoglobin less than 7. 6. Lantus 7 units in the morning on-board, with insulin sliding scale. 7. This is likely adversely affecting all other comorbidities. Appreciate nutrition consult recommendations. 8. Will continue home buspirone. VTE prophylaxis: Lovenox 40 mg daily Patient is critically ill. It is bent up to 60 minutes in ICU level management for today's encounter. Appreciate tele ICU input and management as well. Time Spent With Patient Critical Care time: I spent a total of [] minutes of critical care time on this patient's care t aldair; this time is exclusive of procedural time. Quality VTE Deep Vein Thrombosis/Pulmonary Embolism Present on Admission: No
--- NOTE | 2022-02-14 16:09 | CM.DANOTE ---
Initial Discharge Plan Assessment: Case received, EMR reviewed and met with patient. Introduced self and role. 46 year old female admitted 02/12/22 to care of hospitalist team. PCP: Jhonny Singletary Payer: Medicaid, [facility] Patient was admitted with elevated white count, urosepsis and diagnosed with C diff, large output. She is currently in ICU on IV antibiotics, IV fluids and Levophin drip. She lives in [place] in a house with her 63 year old sister and 2 nephews, her daughter lives in a trailer in front. She states her sister helps with transport and other care needs. 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 Patient is pleasant, alert and oriented, resting in bed. Patient is weak and requires use of FWW and assist. P: PT is currently on hold due to patient's weak status. Initial PT eval states that she will likely require SNF. Will continue to follow. Discharge Planning/Care Management Advanced directive, confirm from FAMILY Start: 02/12/22 05:42 Freq: Q24H Status: Active Protocol: Document 02/12/22 05:42 JS (Rec: 02/12/22 05:44 [email or web address] [id number]) Advance Directive, confirm on record Time 05:44 Person contacted Patient, Copy received No Document 02/13/22 05:42 [email or web address] (Rec: 02/13/22 06:08 [id number]) Advance Directive, confirm on record Time 05:44 Person contacted Patient, Copy received No Time 06:08 Person contacted Patien Copy received No CM Discharge Assessment Start: 02/14/22 16:04 Freq: Status: Active Protocol: Document 02/14/22 16:06 (Rec: 02/14/22 16:08 [id number]) Discharge Planning Assessment Assigned Senior Loss Control Specialist Kirsten Portillo RN/DCP Advance Directives? No Advance Directives on File No History Provided By Patient,Medical Record Has Patient been admitted in last 30 No days? Prior Living Arrangements House Household Members family Type of transporation used prior to Relies on Others admit Comment Sister provides transport Independent with ADL's Yes Is patient alert and oriented? Yes Needs Assistance With Home Chores / Shopping Caregiver for Another No Barriers to Discharge No Comment Pt desires to return home with prior living arrangement. Lives in home with family. Discharge Plan Home Transportation Arrangement Family Referrals Initiated None needed Additional Comment Pt's insurance does not cover HH Whiteboard Updated in Patient Room with Yes name and ext. # of Senior Loss Control Specialist Review Status In Process Next Review Type Continued Stay Review
[2022-02-14 16:13] LABS: Hematocrit 23.4 % (36-46); Hemoglobin 7.5 g/dL (12.0-16.0); Mean Corpuscular HGB Conc 31.9 % (30-36); Mean Corpuscular Volume 84.8 fL (80-100); Platelet Count 480 X10^3/uL (150-400); Red Blood Cell Count 2.76 X10^6/uL (4.0-5.2); Red Cell Distribution Width 17.7 % (11.6-14.8); White Blood Cell Count 25.7 X10^3/uL (4.5-11.0)
[2022-02-14] MEDS: LACTATED RINGERS 1,000 ML 100 ML IV (20:18)
--- NOTE | 2022-02-14 20:19 | PM.ICURNDS ---
- :: This patient was seen via real time interactive two-way audiovisual telecommunication. pateiint off leviophed during my video evaluation and states pain is improved. still having copius BM, and is on LR to match output. continue fidaxomycin, she is toelkrating some po intake, and would continue to encourage her to do so. map current;y 67, restart levophed to maintain map > 65
[2022-02-15] VITALS (44 sets, daily range): BP systolic 87–111; BP diastolic 52–68; PULSE 95–114; RESP 18–20; TEMP 36.6–36.8; O2SAT 93–100
[2022-02-15] MEDS: PIPERACILLIN/TAZO 3.375 GM in SODIUM CHLORIDE 0.9% 100 ML IV ×3 (03:08→19:25)
[2022-02-15] MEDS: HYDROMORPHONE 1 MG INJ IV ×5 (03:16→20:53)
[2022-02-15] MEDS: LACTATED RINGERS 1,000 ML 100 ML IV ×3 (04:52→17:27)
[2022-02-15] MEDS: NOREPINEPHRINE BITARTRATE/D5W 4 MG/250 ML PLAST..BAG 5.625 MG IV (04:53)
[2022-02-15 05:32] LABS: BUN Creatinine Ratio 14.3 (6-22); Blood Urea Nitrogen 9 mg/dL (7-17); Calcium 6.9 mg/dL (8.4-10.2); Carbon Dioxide 29 mmol/L (22-32); Chloride 102 mmol/L (98-107); Estimated Glomerular Filt Rate > 60 mL/min (>60); Glucose 146 mg/dL (70-100); HEMOLYSIS < 15 (0-50); Hematocrit 22.9 % (36-46); Hemoglobin 7.4 g/dL (12.0-16.0); Magnesium 1.8 mg/dL (1.6-2.3); Mean Corpuscular HGB Conc 32.3 % (30-36); Mean Corpuscular Hemoglobin 27.2 PG (26-34); Mean Corpuscular Volume 84.1 fL (80-100); Phosphorous 3.5 mg/dL (2.5-4.5); Platelet Count 489 X10^3/uL (150-400); Potassium 3.4 mmol/L (3.4-5.1); Red Blood Cell Count 2.73 X10^6/uL (4.0-5.2); Red Cell Distribution Width 17.4 % (11.6-14.8); Sodium 133 mmol/L (137-145); White Blood Cell Count 23.8 X10^3/uL (4.5-11.0)
[2022-02-15 05:36] LABS: Add Manual Diff / Slide Review YES
[2022-02-15 05:44] LABS: Neutrophils Absolute Manual 19754 /uL (3000-5900); Total Cells Counted 100
[2022-02-15 05:45] LABS: Hypochromasia 1+
[2022-02-15 05:46] LABS: Poikilocytosis 1+
[2022-02-15 05:47] LABS: Schistocytes 1+
[2022-02-15 05:48] LABS: Anisocytosis 2+
[2022-02-15] MEDS: ACETAMINOPHEN 325 MG TABLET 650 MG PO ×3 (06:14→22:26)
--- NOTE | 2022-02-15 06:25 | PC.NURSE ---
End of shift note. Care of patient from [id number]. Patient Alert and oriented at beginning of shift X3. Up several times during the night to BSC voiding and stooling. Also, Incontinent of loose mushy liquid brown yellow stool. At 0300 c/o abd cramping, gave Dilaudid 1mg. Patient O2 Sats dropped to 89% on RA, changed to NC 2L, O2 Sats increased to 95%. Also, became confused after dilaudid, easily reoriented to being at the hospital and time. ST 105, restarted Levophed 1.5mcg/min to keep MAP >65.
--- NOTE | 2022-02-15 08:15 | P.PN_ITS ---
Subjective Subjective Interval history: Followup on patient. 46-year-old female with insulin-dependent diabetes admitted with septic shock and severe C difficile colitis.? Blood cultures have been negative.? Urine culture was obtained day after admission with patient already on Zosyn.? She is on fidaxomicin for the C diff. Has headache in frontal and posterior head. Received Tylenol and Demerol for it. This is helping. Also has abdominal discomfort with having a lot of BMs and watery type stool. Feels lightheaded when getting up and also weak. Is aware her sugars are high. Exam Vital Signs (past 8 hours): - 02/15/22 00:30 02/15/22 00:45 02/15/22 01:00 Pulse Rate 98 H 99 H 100 H Blood Pressure 100/58 L 92/52 L 95/57 L Pulse Oximetry 93 96 94 02/15/22 01:15 02/15/22 01:30 02/15/22 01:45 Pulse Rate 99 H 98 H 98 H Blood Pressure 98/59 L 93/52 L 95/54 L Pulse Oximetry 95 94 95 02/15/22 02:00 02/15/22 02:15 02/15/22 02:30 Pulse Rate 96 H 98 H 101 H Blood Pressure 91/52 L 97/54 L 97/55 L Pulse Oximetry 94 94 96 02/15/22 02:45 02/15/22 03:00 02/15/22 03:14 Pulse Rate 98 H 101 H 98 H Blood Pressure 94/55 L 100/61 Pulse Oximetry 95 96 93 02/15/22 03:15 02/15/22 03:30 02/15/22 03:45 Pulse Rate 98 H 97 H 97 H Blood Pressure 101/57 L 99/61 96/61 Pulse Oximetry 94 100 100 02/15/22 04:00 02/15/22 04:01 02/15/22 04:15 Pulse Rate 100 H 100 H 97 H Blood Pressure 97/65 96/57 L Pulse Oximetry 99 100 02/15/22 04:30 02/15/22 04:45 02/15/22 05:00 Pulse Rate 97 H 98 H 105 H Blood Pressure 92/56 L 91/52 L Pulse Oximetry 99 99 98 02/15/22 05:16 02/15/22 05:30 05/30/22 05:45 Pulse Rate 98 H 98 H 98 H Blood Pressure 99/59 L 95/59 L 98/56 L Pulse Oximetry 99 99 100 02/15/22 06:00 02/15/22 06:30 02/15/22 07:00 Pulse Rate 106 H 102 H 102 H Blood Pressure 101/57 L Pulse Oximetry 98 99 100 02/15/22 07:14 02/15/22 07:30 Pulse Rate 101 H 99 H Blood Pressure 105/63 Pulse Oximetry 99 100 Oxygen Delivery Method Nasal Cannula,Blow By Oxygen Flow Rate 0 Narrative Exam Narrative: Exam Narrative: General:? Alert, NAD Heart:? Tachycardic, regular rhythm Extremities:? No edema Neurological:? Normal affect and speech Const Other: Appears to be in no distress. HENMT Other: Percussion of frontal sinuses has some tenderness. Resp Other: Clear to auscultation. Cardio Other: Peripheral pulses normal and equal. GI Other: Abdomen soft, minimal discomfort on palpation. BS quiet. Objective ECG Impression: Treating for C. Diff and sepsis clinically although BC negative. Stable. WBC improving with Bands decreasing. Na slight low. Follow. Labs Result Diagrams: 02/15/22 05:00 02/15/22 05:00 Labs: Laboratory Results - last 24 hr 02/12/22 02/14/22 02/15/22 22:05 16:03 05:00 WBC 25.7 H 23.8 H RBC 2.76 L 2.73 L Hgb 7.5 L 7.4 L Hct 23.4 L 22.9 L MCV 84.8 84.1 MCH 27.0 27.2 MCHC 31.9 32.3 RDW 17.7 H 17.4 H Plt Count 480 H 489 H Neut % (Auto) Not Reportable Lymph % (Auto) Not Reportable [place] % (Auto) Not Reportable Eos % (Auto) Not Reportable Baso % (Auto) Not Reportable Lymph # (Auto) Not Reportable [place] # (Auto) Not Reportable Baso # (Auto) Not Reportable Total Counted 100 Seg Neutrophils % 69.0 Band Neutrophils % 14.0 H Lymphocytes % (Manual) 12.0 L Monocytes % (Manual) 1.0 L Eosinophils % (Manual) 4.0 Neutrophils # (Manual) 38061 H RBC Morphology See below Hypochromasia 1+ H Poikilocytosis 1+ H Anisocytosis 2+ H Schistocytes 1+ H Sodium Potassium Chloride Carbon Dioxide BUN Creatinine Estimated GFR BUN/Creatinine Ratio Glucose Calcium Phosphorus Magnesium C. diff Toxin A&B (EIA) Positive A 02/15/22 05:00 WBC RBC Hgb Hct MCV MCH MCHC RDW Plt Count Neut % (Auto) Lymph % (Auto) [place] % (Auto) Eos % (Auto) Baso % (Auto) Lymph # (Auto) [place] # (Auto) Baso # (Auto) Total Counted Seg Neutrophils % Band Neutrophils % Lymphocytes % (Manual) Monocytes % (Manual) Eosinophils % (Manual) Neutrophils # (Manual) RBC Morphology Hypochromasia Poikilocytosis Anisocytosis Schistocytes Sodium 133 L Potassium 3.4 Chloride 102 Carbon Dioxide 29 BUN 9 Creatinine 0.63 Estimated GFR > 60 BUN/Creatinine Ratio 14.3 Glucose 146 H Calcium 6.9 L Phosphorus 3.5 D Magnesium 1.8 C. diff Toxin A&B (EIA) [facility] Medical History (Updated 02/12/22 @ 04:39 by Allan Lemus MD) Acute CVA (cerebrovascular accident) Alcohol intoxication Closed hip fracture COVID DKA (diabetic ketoacidoses) DKA (diabetic ketoacidosis) Fibromyalgia Gastroesophageal reflux disease Insulin dependent diabetes mellitus Lupus Osteoporosis Surgical History History of hip surgery Family History Mother Diabetes mellitus Congestive heart failure Pancreatic cancer Father Diabetes mellitus Brother Diabetes mellitus Pancreatitis Sister Drug overdose Social History household members: family Smoking Status: Former smoker alcohol intake: current Assessment & Plan Assessment and plan Plan Assessment & Plan narrative: 1. C. diff colitis, status post recent abx use for UTI. Continues to have watery diarrhea. 2. Non-AG metabolic acidosis, likely due to diarrhea on admission. 3. Septic shock, now fluid overloaded. 4. Thrombocytosis, likely reactive 5. Normocytic anemia, chronic, likely due to chronic inflammation 6. Insulin-dependent DM II 7. Acute on chronic severe protein-calorie malnutrition 8. Anxiety 9. Hypokalemia - now normal. Plan: 1. PO fidaxomicin 200 mg bid on-board, started February 12. IV vancomycin and IV Zosyn started on February 12, too, for empiric coverage, given significant leukocytosis and no result on C. diff at that time. Leukocytosis (that is likely from C. diff) is improving and will transition to Zosyn only. 2. Serum CO2 has been corrected with IV bicarbonate drip 3. LR to 100 cc/hour, continue Levophed pressure support as needed 4. Monitor lytes and replete as needed 5. Transfuse for hemoglobin less than 7. if needed. 6. Lantus 7 units in the morning on-board, with insulin sliding scale. 7. This is likely adversely affecting all other comorbidities. Appreciate nutrition consult recommendations. 8. Will continue home buspirone. VTE prophylaxis: Lovenox 40 mg daily Patient is critically ill.? Spent up to 60 minutes in ICU level management for today's encounter.? Appreciate tele ICU input and management as well.? Time Spent With Patient Critical Care time: I spent a total of [] min Time Spent With Patient Critical Care time: I spent a total of [] minutes of critical care time on this patient's care t aldair; this time is exclusive of procedural time. Quality VTE Deep Vein Thrombosis/Pulmonary Embolism Present on Admission: No
[2022-02-15] MEDS: INSULIN LISPRO 100 UNIT/ML 3ML VIAL SUBCUT ×2 (08:19→17:52)
--- NOTE | 2022-02-15 08:47 | P.PN_ITS ---
Subjective Subjective Interval history: Daily hospital visit. Still getting water stools. Does feel a little better however. Does have abdominal intestinal discomfort and also feels somewhat dizzy on standing. Nursing reports tolerating with out a pressor agent. Exam Vital Signs (past 8 hours): - 02/15/22 01:00 02/15/22 01:15 02/15/22 01:30 Pulse Rate 100 H 99 H 98 H Blood Pressure 95/57 L 98/59 L 93/52 L Pulse Oximetry 94 95 94 02/15/22 01:45 02/15/22 02:00 02/15/22 02:15 Pulse Rate 98 H 96 H 98 H Blood Pressure 95/54 L 91/52 L 97/54 L Pulse Oximetry 95 94 94 02/15/22 02:30 02/15/22 02:45 02/15/22 03:00 Pulse Rate 101 H 98 H 101 H Blood Pressure 97/55 L 94/55 L 100/61 Pulse Oximetry 96 95 96 02/15/22 03:14 02/15/22 03:15 02/15/22 03:30 Pulse Rate 98 H 98 H 97 H Blood Pressure 101/57 L 99/61 Pulse Oximetry 93 94 100 02/15/22 03:45 02/15/22 04:00 02/15/22 04:01 Pulse Rate 97 H 100 H 100 H Blood Pressure 96/61 97/65 Pulse Oximetry 100 99 02/15/22 04:15 02/15/22 04:30 02/15/22 04:45 Pulse Rate 97 H 97 H 98 H Blood Pressure 96/57 L 92/56 L 91/52 L Pulse Oximetry 100 99 99 02/15/22 05:00 02/15/22 05:16 02/15/22 05:30 Pulse Rate 105 H 98 H 98 H Blood Pressure 99/59 L 95/59 L Pulse Oximetry 98 99 99 02/15/22 05:45 02/15/22 06:00 02/15/22 06:30 Pulse Rate 98 H 106 H 102 H Blood Pressure 98/56 L 101/57 L Pulse Oximetry 100 98 99 02/15/22 07:00 02/15/22 07:14 02/15/22 07:30 Pulse Rate 102 H 101 H 99 H Blood Pressure 105/63 Pulse Oximetry 100 99 100 02/15/22 08:00 02/15/22 08:03 02/15/22 08:15 Pulse Rate 108 H 106 H 96 H Blood Pressure 96/57 L 100/62 Pulse Oximetry 100 99 100 Oxygen Delivery Method Nasal Cannula,Blow By Oxygen Flow Rate 0 Const General: cooperative, healthy appearing and comfortable [facility] Head: normal to inspection Eyes Pupils: PERRL EOM: EOM intact bilaterally Neck Other: No lymphadenopathy. Chest Other: Clear to auscultation. Cardio Rhythm: regular rhythm Heart Sounds: S1 normal and S2 normal Pulses: normal peripheral pulses GI Palpation: soft Auscultation: hyperactive bowel sounds Objective Labs Result Diagrams: 02/15/22 05:00 02/15/22 05:00 Labs: Laboratory Results - last 24 hr 02/12/22 02/14/22 02/15/22 22:05 16:03 05:00 WBC 25.7 H 23.8 H RBC 2.76 L 2.73 L Hgb 7.5 L 7.4 L Hct 23.4 L 22.9 L MCV 84.8 84.1 MCH 27.0 27.2 MCHC 31.9 32.3 RDW 17.7 H 17.4 H Plt Count 480 H 489 H Neut % (Auto) Not Reportable Lymph % (Auto) Not Reportable [place] % (Auto) Not Reportable Eos % (Auto) Not Reportable Baso % (Auto) Not Reportable Lymph # (Auto) Not Reportable [place] # (Auto) Not Reportable Baso # (Auto) Not Reportable Total Counted 100 Seg Neutrophils % 69.0 Band Neutrophils % 14.0 H Lymphocytes % (Manual) 12.0 L Monocytes % (Manual) 1.0 L Eosinophils % (Manual) 4.0 Neutrophils # (Manual) 82293 H RBC Morphology See below Hypochromasia 1+ H Poikilocytosis 1+ H Anisocytosis 2+ H Schistocytes 1+ H Sodium Potassium Chloride Carbon Dioxide BUN Creatinine Estimated GFR BUN/Creatinine Ratio Glucose Calcium Phosphorus Magnesium C. diff Toxin A&B (EIA) Positive A 02/15/22 05:00 WBC RBC Hgb Hct MCV MCH MCHC RDW Plt Count Neut % (Auto) Lymph % (Auto) [place] % (Auto) Eos % (Auto) Baso % (Auto) Lymph # (Auto) [place] # (Auto) Baso # (Auto) Total Counted Seg Neutrophils % Band Neutrophils % Lymphocytes % (Manual) Monocytes % (Manual) Eosinophils % (Manual) Neutrophils # (Manual) RBC Morphology Hypochromasia Poikilocytosis Anisocytosis Schistocytes Sodium 133 L Potassium 3.4 Chloride 102 Carbon Dioxide 29 BUN 9 Creatinine 0.63 Estimated GFR > 60 BUN/Creatinine Ratio 14.3 Glucose 146 H Calcium 6.9 L Phosphorus 3.5 D Magnesium 1.8 C. diff Toxin A&B (EIA) [facility] Medical History (Updated 02/12/22 @ 04:39 by Allan Lemus MD) Acute CVA (cerebrovascular accident) Alcohol intoxication Closed hip fracture COVID DKA (diabetic ketoacidoses) DKA (diabetic ketoacidosis) Fibromyalgia Gastroesophageal reflux disease Insulin dependent diabetes mellitus Lupus Osteoporosis Surgical History History of hip surgery Family History Mother Diabetes mellitus Congestive heart failure Pancreatic cancer Father Diabetes mellitus Brother Diabetes mellitus Pancreatitis Sister Drug overdose Social History household members: family Smoking Status: Former smoker alcohol intake: current Assessment & Plan Time Spent With Patient Critical Care time: I spent a total of [] minutes of critical care time on this patient's care today; this time is exclusive of procedural time. Quality VTE Deep Vein Thrombosis/Pulmonary Embolism Present on Admission: No
--- NOTE | 2022-02-15 09:03 | PC.NURSE ---
Addendum entered by Mela Roberson R.N. 02/15/22 12:35: Pt MAP consistently 65 or greater with SBPs in the 80s-90s. No s/s hypotension noted. Abd softly distended and painful to palpation. Pt continues to have episodes of diarrhea approx every 2-3 hours. Uses call light appropriately for SBA to bedside commode. Medicated with PRN pain and nausea meds per pt request. Addendum entered by Mela Roberson R.N. 02/15/22 11:03: 1100: Pt with downtrending BPs. Per Dr Munoz teleintensivist, IVF increased to 100 mL/hr from 50 mL/hr for decreasing BP. Will monitor and update MDs if pressures do not improve. Original Note: 0730: Levophed placed on standby for stable BPs with MAPs > 65. Will monitor.
--- NOTE | 2022-02-15 09:12 | P.TELICUPN_ITS ---
Subjective Subjective If camera was activated, add TeleICU A-V statement: Patient seen through two way A-V system Interval history: Patient summary: 46-year-old with PMH of DM anxiety, GERD, fibromyalgia, lupus, osteoporosis, CVA 2020, COVID PNA 2020, and recent E. Coli UTI admitted 02/11/22 with septic shock, non-AG metabolic acidosis, and C. Diff. Recent Events: WBC trending down and patient came off Levophed drip this morning. Diarrhea has improved compared to yesterday. Current Medications Current Medications Medications: Home Medications insulin aspart U-100 100 unit/mL (3 mL) subcutaneous pen (Novolog Flexpen U-100 Insulin aspart) 0 unit (0 mL) SUB-Q AC #3 unit 02/12/18 [Rx Confirmed 02/14/22] buspirone 10 mg tablet 2 tab PO TID 12/08/18 [History Confirmed 02/14/22] cyclobenzaprine 10 mg tablet 10 mg PO TID PRN 12/08/18 [History Confirmed 02/14/22] blood sugar diagnostic (Test N'Go Test) #50 ea 11/30/21 [Rx Confirmed 02/14/22] insulin glargine 100 unit/mL (3 mL) subcutaneous pen 10 unit (0.1 mL) SUBCUT DAILY #0 ml 12/09/21 [Rx Confirmed 02/14/22] gabapentin 800 mg tablet 800 mg PO TID 02/14/22 [History Confirmed 02/14/22] nydhcf-[id number] 24,000-76,000-120,000 unit capsule,delayed rel (Creon) cap PO 02/14/22 [History] lisinopril 10 mg tablet 10 mg PO DAILY 02/14/22 [History Confirmed 02/14/22] ondansetron HCl 4 mg tablet 4 mg PO TID 02/14/22 [History Confirmed 02/14/22] Visit Medications (administered) Generic Name Dose Route Start Last Admin Trade Name Freq PRN Reason Stop Dose Admin Acetaminophen 650 mg 02/12/22 06:22 02/15/22 06:14 Acetaminophen 325 Mg Tablet PO 650 mg Q6HR PRN Administration Headache Buspirone HCl 20 mg 02/12/22 09:00 02/14/22 20:23 Buspirone 5 Mg Tablet PO 20 mg TID JOSE ANTONIO Administration Cyclobenzaprine HCl 10 mg 02/12/22 04:17 02/14/22 12:38 Cyclobenzaprine 10 Mg Tablet PO 10 mg TID PRN Administration pain Enoxaparin Sodium 40 mg 02/12/22 09:00 02/14/22 08:39 Enoxaparin 40 Mg/0.4 Ml Syringe SUBCUT 40 mg DAILY JOSE ANTONIO Administration Fidaxomicin 200 mg 02/12/22 10:45 02/14/22 20:23 Fidaxomicin 200 Mg Tablet PO 200 mg BID JOSE ANTONIO Administration Gabapentin 900 mg 02/12/22 09:00 02/14/22 20:24 Gabapentin 300 Mg Capsule PO 900 mg TID JOSE ANTONIO Administration Heparin Sodium (Porcine) 50 unit 02/13/22 21:00 02/14/22 20:30 Heparin Flush (Cl/Picc/Mid-Line) 50 Unit/5 Ml Syringe IV 50 unit BID JOSE ANTONIO Administration Hydromorphone HCl 1 mg 02/14/22 13:48 02/15/22 07:50 Hydromorphone 1 Mg Inj IV 1 mg Q4H PRN Administration Pain, Moderate (4-6) NOREPINEPHRINE BITARTRATE/D5W 4 mg in 250 mls @ 30 mls/hr 02/12/22 04:15 05 0 07:30 Levophed IV 0 mcg/min TITRATE JOSE ANTONIO 0 mls/hr Titration Protocol 8 MCG/MIN Piperacillin Sod/Tazobactam 100 mls @ 25 mls/hr 02/12/22 19:00 02/15/22 03:08 Sod 3.375 gm/ Sodium Chloride IV 25 mls/hr Q8H JOSE ANTONIO Administration Lactated Ringer's 1,000 mls @ 100 mls/hr 02/14/22 13:00 02/15/22 04:52 Lactated Ringers IV 100 mls/hr CONT JOSE ANTONIO Administration Insulin Human Lispro 0 unit 02/14/22 08:15 02/15/22 08:19 Insulin Lispro 100 Unit/Ml 3ml Vial SUBCUT 2 unit ACHS JOSE ANTONIO Administration Protocol Ondansetron HCl 4 mg 02/12/22 09:36 02/13/22 18:29 Ondansetron 4 Mg/2 Ml Inj IV 4 mg Q6HR PRN Administration Nausea And Vomiting Objective Labs Result Diagrams: 02/15/22 05:00 02/15/22 05:00 Labs: Laboratory Results - last 24 hr 02/12/22 02/14/22 02/15/22 22:05 16:03 05:00 WBC 25.7 H 23.8 H RBC 2.76 L 2.73 L Hgb 7.5 L 7.4 L Hct 23.4 L 22.9 L MCV 84.8 84.1 MCH 27.0 27.2 MCHC 31.9 32.3 RDW 17.7 H 17.4 H Plt Count 480 H 489 H Neut % (Auto) Not Reportable Lymph % (Auto) Not Reportable [place] % (Auto) Not Reportable Eos % (Auto) Not Reportable Baso % (Auto) Not Reportable Lymph # (Auto) Not Reportable [place] # (Auto) Not Reportable Baso # (Auto) Not Reportable Total Counted 100 Seg Neutrophils % 69.0 Band Neutrophils % 14.0 H Lymphocytes % (Manual) 12.0 L Monocytes % (Manual) 1.0 L Eosinophils % (Manual) 4.0 Neutrophils # (Manual) 50563 H RBC Morphology See below Hypochromasia 1+ H Poikilocytosis 1+ H Anisocytosis 2+ H Schistocytes 1+ H Sodium Potassium Chloride Carbon Dioxide BUN Creatinine Estimated GFR BUN/Creatinine Ratio Glucose Calcium Phosphorus Magnesium C. diff Toxin A&B (EIA) Positive A 02/15/22 05:00 WBC RBC Hgb Hct MCV MCH MCHC RDW Plt Count Neut % (Auto) Lymph % (Auto) [place] % (Auto) Eos % (Auto) Baso % (Auto) Lymph # (Auto) [place] # (Auto) Baso # (Auto) Total Counted Seg Neutrophils % Band Neutrophils % Lymphocytes % (Manual) Monocytes % (Manual) Eosinophils % (Manual) Neutrophils # (Manual) RBC Morphology Hypochromasia Poikilocytosis Anisocytosis Schistocytes Sodium 133 L Potassium 3.4 Chloride 102 Carbon Dioxide 29 BUN 9 Creatinine 0.63 Estimated GFR > 60 BUN/Creatinine Ratio 14.3 Glucose 146 H Calcium 6.9 L Phosphorus 3.5 D Magnesium 1.8 C. diff Toxin A&B (EIA) Exam Vital Signs (past 8 hours): - 02/15/22 01:15 02/15/22 01:30 02/15/22 01:45 Pulse Rate 99 H 98 H 98 H Blood Pressure 98/59 L 93/52 L 95/54 L Pulse Oximetry 95 94 95 02/15/22 02:00 02/15/22 02:15 02/15/22 02:30 Pulse Rate 96 H 98 H 101 H Blood Pressure 91/52 L 97/54 L 97/55 L Pulse Oximetry 94 94 96 02/15/22 02:45 02/15/22 03:00 02/15/22 03:14 Pulse Rate 98 H 101 H 98 H Blood Pressure 94/55 L 100/61 Pulse Oximetry 95 96 93 02/15/22 03:15 02/15/22 03:30 02/15/22 03:45 Pulse Rate 98 H 97 H 97 H Blood Pressure 101/57 L 99/61 96/61 Pulse Oximetry 94 100 100 02/15/22 04:00 02/15/22 04:01 02/15/22 04:15 Pulse Rate 100 H 100 H 97 H Blood Pressure 97/65 96/57 L Pulse Oximetry 99 100 02/15/22 04:30 02/15/22 04:45 02/15/22 05:00 Pulse Rate 97 H 98 H 105 H Blood Pressure 92/56 L 91/52 L Pulse Oximetry 99 99 98 02/15/22 05:16 02/15/22 05:30 02/15/22 05:45 Pulse Rate 98 H 98 H 98 H Blood Pressure 99/59 L 95/59 L 98/56 L Pulse Oximetry 99 99 100 02/15/22 06:00 02/15/22 06:30 02/15/22 07:00 Pulse Rate 106 H 102 H 102 H Blood Pressure 101/57 L Pulse Oximetry 98 99 100 02/15/22 07:14 02/15/22 07:30 02/15/22 08:00 Pulse Rate 101 H 99 H 108 H Blood Pressure 105/63 Pulse Oximetry 99 100 100 02/15/22 08:03 02/15/22 08:15 Pulse Rate 106 H 96 H Blood Pressure 96/57 L 100/62 Pulse Oximetry 99 100 Oxygen Delivery Method Nasal Cannula,Blow By Oxygen Flow Rate 0 Quality TeleICU VTE Deep Vein Thrombosis/Pulmonary Embolism Present on Admission: No Assessment & Plan Assessment & Plan narrative: Assessment & Plan narrative: Septic Shock ?C Diff non AG metabolic acidosis-resolved MIGUEL anemia DM Plan Assessment & Plan narrative: NEURO:Hx of CVA -- PT/OT and OOB as tolerated -- FAll precaution Pulm: -- Encourage IS and OOB as tolerated CVS: septic shock -off Levophed drip this morning /FEN/Renal: (baseline Cr is 0.4, Cr on admission was 1 and now has improved to 0.6) -reduce maintenance fluid from 100 cc/hr to 50 cc/hr given improvement in BP and Cr -replace electrolytes as needed ID: C. Diff -continue Fidaxomicin for C. Diff -Zosyn stopped given neg cultures Heme: anemia is probably a combinatino of hemodilution and anemia of acute and chronic illness -type and screen -transfuse if hgb drops to < 7 ENDO: -BG better controlled Ppx: lovenox CCT 40 min Time Spent With Patient Critical Care time: I spent a total of [] minutes of critical care time on this patient's care today; this time is exclusive of procedural time.
[2022-02-15] MEDS: ENOXAPARIN 40 MG/0.4 ML SYRINGE SUBCUT (09:21)
[2022-02-15] MEDS: BUSPIRONE 5 MG TABLET 20 MG PO ×3 (09:21→20:49)
[2022-02-15] MEDS: GABAPENTIN 300 MG CAPSULE 900 MG PO ×3 (09:21→20:49)
[2022-02-15] MEDS: FIDAXOMICIN 200 MG TABLET PO ×2 (09:22→20:49)
[2022-02-15] MEDS: MAGNESIUM SULFATE 2 GM/50 ML PIGGYBACK IV (09:25)
[2022-02-15] MEDS: POTASSIUM CHLORIDE 20 MEQ TAB 40 MEQ PO (09:25)
--- NOTE | 2022-02-15 09:35 | CM.DPC ---
Addendum entered by TERA Miller 02/15/22 12:23: ADD: SNF updates: [facility]- cannot accept Medicaid [facility]- cannot accept Medicaid [facility]- refaxed to non-efax number and admissions will review today [facility]- left msg and faxed referral [facility]- willing to review, faxed referral. Plan: SW to follow for [facility], [facility], and [facility] to review to see if they can accept pt with Straight Medicaid vs return home with family and Resume [facility]. BF Addendum entered by TERA Miller 02/15/22 10:51: ADD: SW completed PASRR in anticipation of SNF and printed pt's COVID vax status and pt vaccinated x2 but not showing Booster. BF Original Note: DCP SNF vs HH Per PT, on hold yesterday and unsure about today if they can work with her based on her white count and Cdiff symptomology but were recommending SNF rehab before return home as pt is below baseline. Per pt's prior admission in November 2021 this year, SW had given pt Medicaid LTC tino for possible [facility] assist in the home. Pt also had been referred to [facility] at discharge in november. SW met bedside with pt and explained role and she confirms that she is still open with [facility] and she felt that they were quite helpful and was getting close to discharging from their services and then became sick with CDiff. SW faxed H&P to [facility] to review to alert them to pt's admission to the hospital. SW also inquired about SNF recommendation and pt confirms that she feels SNF needed before return home with family assist and states she has hx at [facility] after her prior hip surgery and did not need SNF after her CVA. Pt aware that her straight Medicaid could be a barrier to SNF. [facility] be [facility] or any SNF in [facility] that could accept. SW called [facility] and confirmed that they cannot accept straight Medicaid. SW called [facility] and left msg about straight Medicaid and faxed referral to [facility] and left msg as pt has been to their facility before. Plan: SW to follow for review by [facility] and return call from [facility] to determine if either can accept pt with Straight Medicaid. PASRR will be needed and to confirm pt's COVID vax status. Faith Shoemaker MSW
[2022-02-15] MEDS: CALCIUM GLUCONATE 4.65 MEQ in SODIUM CHLORIDE 0.9% 50 ML 180 MEQ IV (11:32)
[2022-02-15] MEDS: ONDANSETRON 4 MG/2 ML INJ IV (11:44)
[2022-02-15] MEDS: CYCLOBENZAPRINE 10 MG TABLET PO (13:00)
--- NOTE | 2022-02-15 20:27 | PM.ICURNDS ---
- :: This patient was seen via real time interactive two-way audiovisual telecommunication. Note: Patient admitted for septic shock, hyperglycemia, metabolic acidosis secondary to C diff colitis. Patient is currently off levophed with MAP ~60s. Still has watery diarrhea. Will continue IVF and monitor patient closely in the unit until off pressor X 24 hours. D/w RN at bedside.
[2022-02-16] VITALS (8 sets, daily range): BP systolic 88–101; BP diastolic 51–64; PULSE 101–112; RESP 16–19; TEMP 36.1–37.3; O2SAT 96–99
[2022-02-16] MEDS: LACTATED RINGERS 1,000 ML 1000 ML IV (01:06)
[2022-02-16] MEDS: LACTATED RINGERS 1,000 ML 100 ML IV (01:20)
[2022-02-16] MEDS: HYDROMORPHONE 1 MG INJ IV ×6 (01:20→22:23)
[2022-02-16] MEDS: PIPERACILLIN/TAZO 3.375 GM in SODIUM CHLORIDE 0.9% 100 ML IV ×2 (03:05→10:42)
[2022-02-16 05:23] LABS: Add Manual Diff / Slide Review NO; Basophils Absolute Auto 100 /uL (0-100); Basophils Percent Auto 0.4 % (0-2); Eosinophils Absolute Auto 200 /uL (0-450); Eosinophils Percent Auto 1.2 % (2-4); Hematocrit 24.2 % (36-46); Hemoglobin 7.7 g/dL (12.0-16.0); Lymphocytes Absolute Auto 1900 /uL (1100-4500); Lymphocytes Percent Auto 10.1 % (25-40); Mean Corpuscular HGB Conc 31.8 % (30-36); Mean Corpuscular Hemoglobin 27.1 PG (26-34); Mean Corpuscular Volume 85.1 fL (80-100); Monocytes Absolute Auto 1200 /uL (0-900); Monocytes Percent Auto 6.4 % (3-14); Neutrophils Absolute Auto 15000 /uL (1500-7000); Neutrophils Percent Auto 81.9 % (50-75); Platelet Count 467 X10^3/uL (150-400); Red Blood Cell Count 2.84 X10^6/uL (4.0-5.2); Red Cell Distribution Width 17.1 % (11.6-14.8); White Blood Cell Count 18.3 X10^3/uL (4.5-11.0)
--- NOTE | 2022-02-16 05:24 | PC.NURSE ---
Shift note Patient was alert and orientedx4, follows commands, no signs of distress, with episode of abdominal cramps and headache, pain meds given. Tele ICU MD Obando made rounds and updates given. Patient had episode of hypotension SBP 80s MAP 65, Dr. Obando notified and ordered liter bolus of LR, BP has slightly improved BP 96/51 MAP 66. Patient had multiple loose bowel movements throughout the shift. Will continue to monitor.
[2022-02-16 05:53] LABS: Alanine Aminotransferase 7 IU/L (<35); Albumin 2.1 g/dL (3.5-5.0); Albumin Globulin Ratio 0.9 (1.0-2.8); Alkaline Phosphatase 90 U/L (38-126); Aspartate Aminotransferase 15 IU/L (14-36); BUN Creatinine Ratio 10.2 (6-22); Bilirubin Total 0.2 mg/dL (0.2-1.3); Blood Urea Nitrogen 6 mg/dL (7-17); Calcium 6.9 mg/dL (8.4-10.2); Carbon Dioxide 28 mmol/L (22-32); Chloride 102 mmol/L (98-107); Estimated Glomerular Filt Rate > 60 mL/min (>60); Globulin 2.4 g/dL (1.7-4.1); Glucose 161 mg/dL (70-100); HEMOLYSIS 21 (0-50); Phosphorous 2.9 mg/dL (2.5-4.5); Potassium 4.7 mmol/L (3.4-5.1); Sodium 133 mmol/L (137-145); Total Protein 4.5 g/dL (6.3-8.2)
--- NOTE | 2022-02-16 08:21 | PM.PN.1 ---
Subjective Subjective Interval history: Daily hospitalist visit. 46-year-old female with insulin-dependent diabetes admitted with septic shock and severe C difficile colitis.? Blood cultures have been negative.? Urine culture was obtained day after admission with patient already on Zosyn.? She is on fidaxomicin for the C diff. Patient feeling better, stools still frequent but beginning to be formed. Eating well. Some abdominal cramping discomfort but more localized in abdomen. Not needing pressor support for 24 hours+. Exam Vital Signs (past 8 hours): - 02/16/22 00:46 02/16/22 02:20 02/16/22 04:00 Temperature 97.9 F 97.0 F L Pulse Rate 109 H 101 H Respiratory Rate 18 18 Blood Pressure 88/52 L 96/51 L 93/62 Pulse Oximetry 97 96 Oxygen Delivery Method Room Air Oxygen Flow Rate 0 Const General: cooperative and comfortable HENMT Head: normal to inspection Eyes Pupils: PERRL EOM: EOM intact bilaterally Neck Other: no lymphadenopathy. Resp Auscultation: clear to auscultation bilaterally Cardio Rhythm: regular rhythm Heart Sounds: S1 normal and S2 normal GI Inspection: normal to inspection Palpation: soft and tender Auscultation: normal bowel sounds Objective Labs Result Diagrams: 02/16/22 04:55 02/16/22 04:55 Labs: Laboratory Results - last 24 hr 02/16/22 02/16/22 04:55 04:55 WBC 18.3 H RBC 2.84 L Hgb 7.7 L Hct 24.2 L MCV 85.1 MCH 27.1 MCHC 31.8 RDW 17.1 H Plt Count 467 H Neut % (Auto) 81.9 H Lymph % (Auto) 10.1 L [place] % (Auto) 6.4 Eos % (Auto) 1.2 L Baso % (Auto) 0.4 Neut # (Auto) 50532 H Lymph # (Auto) 1900 [place] # (Auto) 1200 H Eos # (Auto) 200 Baso # (Auto) 100 Sodium 133 L Potassium 4.7 D Chloride 102 Carbon Dioxide 28 BUN 6 L Creatinine 0.59 Estimated GFR > 60 BUN/Creatinine Ratio 10.2 Glucose 161 H Calcium 6.9 L Phosphorus 2.9 Total Bilirubin 0.2 AST 15 ALT 7 Alkaline Phosphatase 90 D Total Protein 4.5 L Albumin 2.1 L Globulin 2.4 Albumin/Globulin Ratio 0.9 L [facility] Medical History (Updated 02/12/22 @ 04:39 by Allan Lemus MD) Acute CVA (cerebrovascular accident) Alcohol intoxication Closed hip fracture COVID DKA (diabetic ketoacidoses) DKA (diabetic ketoacidosis) Fibromyalgia Gastroesophageal reflux disease Insulin dependent diabetes mellitus Lupus Osteoporosis Surgical History History of hip surgery Family History Mother Diabetes mellitus Congestive heart failure Pancreatic cancer Father Diabetes mellitus Brother Diabetes mellitus Pancreatitis Sister Drug overdose Social History household members: family Smoking Status: Former smoker alcohol intake: current Assessment & Plan Assessment & Plan narrative: 1. C. diff colitis, status post recent abx use for UTI. Stools still frequent but formed more. Remains on Fidaxmicin and Zosyn. 2. Non-AG metabolic acidosis, likely due to diarrhea on admission. 3. Septic shock, resolved with continued antibiotics. BP stable off pressors. 4. Thrombocytosis, likely reactive 5. Normocytic anemia, chronic, likely due to chronic inflammation 6. Insulin-dependent DM II 7. Acute on chronic severe protein-calorie malnutrition. Eating well now. 8. Anxiety. Continue with buspirone. 9. Hypokalemia - now normal. 10. Leukocytosis - continuing to improve, follow. Follow clinically and labs tomorrow. Due to stability, can transition to evans out of ICU. Time Spent With Patient Critical Care time: I spent a total of [] minutes of critical care time on this patient's care today; this time is exclusive of procedural time. Quality VTE Deep Vein Thrombosis/Pulmonary Embolism Present on Admission: No
[2022-02-16] MEDS: INSULIN LISPRO 100 UNIT/ML 3ML VIAL SUBCUT ×2 (09:24→18:20)
[2022-02-16] MEDS: BUSPIRONE 5 MG TABLET 20 MG PO ×3 (09:24→20:39)
[2022-02-16] MEDS: ENOXAPARIN 40 MG/0.4 ML SYRINGE SUBCUT (09:25)
[2022-02-16] MEDS: GABAPENTIN 300 MG CAPSULE 900 MG PO ×3 (09:25→20:40)
[2022-02-16] MEDS: FIDAXOMICIN 200 MG TABLET PO ×2 (09:26→20:40)
[2022-02-16] MEDS: CYCLOBENZAPRINE 10 MG TABLET PO ×2 (10:48→20:48)
[2022-02-16] MEDS: ONDANSETRON 4 MG/2 ML INJ IV ×2 (10:48→20:48)
--- NOTE | 2022-02-16 10:55 | PC.NURSE ---
Addendum entered by Mela Roberson R.N. 02/16/22 11:50: 1140: Spoke with , IVF on standby per verbal order for increasing peripheral edema. Will monitor BP/MAP and for s/s hypotension. Original Note: 1000: Pt requested content writer evaluate peripheral edema, which she states has increased this morning. Lining Stamper noted 2+ pitting edema in bilat lower extremeties, unchanged from prior assessments. 1+ non-pitting edema noted in bilat hands, also unchanged. Sacral/upper thigh edema noted, 2+ pitting, increased from trace edema noted during prior assessments. Will update MD and await orders, if any.
--- NOTE | 2022-02-16 13:11 | PT.IIE ---
Current Diagnoses Type 2 diabetes mellitus without complications (02/12/22) Hypokalemia (02/12/22) Hypotension, unspecified (02/12/22) Nausea with vomiting, unspecified (02/12/22) Diarrhea, unspecified (02/12/22) Medical History (Last Updated 02/12/22 @ 04:39 by Allan Lemus MD) Acute CVA (cerebrovascular accident) Alcohol intoxication Closed hip fracture COVID DKA (diabetic ketoacidoses) DKA (diabetic ketoacidosis) Fibromyalgia Gastroesophageal reflux disease Insulin dependent diabetes mellitus Lupus Osteoporosis Physical Therapy Inpatient Evaluation/Re-Eval M1 PT/OT-IP Prior Functional Status Start: 02/12/22 15:01 Freq: NEEDED Status: Active Protocol: Document 02/16/22 14:31 [facility] (Rec: 02/16/22 14:52 [facility] [id number]) Medical Review Prior Functional Status Medical History Reviewed Yes Communication able to make needs known Mobility and Gait pt stated that she is modified independent with all mobilities and ambulation using a FWW Activities of Daily Living and IADL's Pt states prior able to do all her ADl needs and needing assist for IADL needs. Prior Functional Level (Other details) Pt states prior to having BJORN twice was able to do all her IADl needs on her own but now needign to rely on her family for assist. Social History Household Members family Living Arrangements House Number of Stairs To Enter/Railing? ramp to enter the house Home Environment Standard Height Toilet,Tub/ Shower Home Equipment Front Wheel Walker,Shower Seat with Backrest,Hand Held Shower,Grab Bars In Shower M2 PT-IP Current Condition Start: 02/12/22 15:01 Freq: NEEDED Status: Active Protocol: Document 02/16/22 13:11 AB (Rec: 02/16/22 15:34 AB [id number]) Physical Therapy Current Condition Current Condition Evaluation Date 02/16/22 Treatment Diagnosis sepsis; difficulty in walking Onset Date 02/12/22 M3 PT-IP Subjective Start: 02/12/22 15:01 Freq: NEEDED Status: Active Protocol: Document 02/16/22 13:11 AB (Rec: 02/16/22 15:34 AB [id number]) Subjective Physical Therapy Visit Type Type Initial Evaluation Visit Start Time 13:11 Visit Stop Time 13:35 Total Visit Minutes 24 Notes received new PT eval order today. pt is more medically stable to do PT Number of CUSTOMER TRAINING SPECIALIST Visits 0 Physical Therapy Visit Comments Patient Comments agreeable to do PT M4 PT-IP Mobility and Gait Start: 02/12/22 15:01 Freq: NEEDED Status: Active Protocol: Document 02/16/22 13:11 AB (Rec: 02/16/22 15:34 AB [id number]) PT-Bed Mobility Assessment Supine to Sit Supine to Sit Standby Assistance Sit to Supine Sit to Supine Moderate Assistance,1 Person Assistance PT-Transfer Assessment Sit to and From Stand Sit to and from Stand Minimal Assistance,1 Person Assistance,Use of Upper Extremities Equipment Transfer Assistive Device Gait Belt,Front Wheeled Walker Orthotic/Prosthetic Devices or Brace: No Comments Mobility Comments BP in supine: 90/57. pt completed supine to sit SBA with HOB elevated. able to sit on EOB SBA. slight dizziness. BP 82/50. pt sat on EOB and BP checked again after a few minutes: 82/53. informed nurse regarding low BP. pt completed sit to stand min A and ambulated ~ 20 ft using FWW min A and sat back on the bed. completed sit to supine min A with LE elevation to bed. positioned pt in bed . BP checked: 87/54. nurse aware. nurse stated that they have to stop the IV fluid due to pt having fluid overload. call light and table placed within reach. BP is low but stable. Gait Assessment Gait Gait Assistance Required: Minimum Assistance Distance (Feet) 20 Able to Maintain Weight Bearing Status Yes During Gait Assistive Devices Assistive Device Gait Belt,Front Wheeled Walker Orthotic/Prosthetic Devices or Brace: No Gait Deviations General Gait Pattern Decreased Stride Length, Decreased Feet Clearance Factors Limiting Gait Function Factors Limiting Gait Function Decreased Activity Tolerance, Decreased Sensation,Decreased Strength,Poor Balance,Poor Safety Awareness PT-Balance Assessment Sitting Balance and Reactions Static Sitting Balance Ability Good Dynamic Sitting Balance Ability Good Standing Balance and Reactions Static Standing Balance Ability Fair Dynamic Standing Balance Ability Fair Device Used FWW M5 PT-IP Objective Assessments Start: 02/12/22 15:01 Freq: NEEDED Status: Active Protocol: Document 02/16/22 13:11 AB (Rec: 02/16/22 15:34 AB [id number]) Orientation Orientation/Cognition Level of Alertness Alert Orientation Name,Place,Situation Safety Awareness Decreased Safety Awareness Memory Description No Deficits Noted Gross Range of Motion Lower Extremity ROM Assessment Within Functional Limits Strength Lower Extremity Strength Assessment Bilaterally Impaired Hip 3+/5 Knee 3+/5 Sensation Assessment Sensation Gross Sensation Right LE Impaired,Left LE Impaired Sensation Description Tingling Comments Sensation Comments pt has neuropathy on BLE Muscle Tone Muscle Tone WNL Yes M6 PT-IP Treatment Start: 02/12/22 15:01 Freq: NEEDED Status: Active Protocol: Document 02/16/22 13:11 AB (Rec: 02/16/22 15:34 AB [id number]) Physical Therapy Treatment Education Education Provided Safety M7 PT-IP Assessment and Plan Start: 02/12/22 15:01 Freq: NEEDED Status: Active Protocol: Document 02/16/22 13:11 AB (Rec: 02/16/22 15:34 AB [id number]) PT Summary Assessment and Plan Potential Rehabilitation Potential Fair Status of Condition at Evaluation Evolving Summary Impairments Pain,ROM,Strength,Balance, Coordination,Sensation,Tone, Cognition,Bed Mobility, Transfers,Gait,Activity Tolerance Assessment Summary pt currently requiring min A with mobility using FWW for ambulation and has decrease activity tolerance with low BP and c/o slight dizziness. d/ c plan depending on progress but at this time, may require SNF rehab. pt stated that her daughter will be able to assist her but will not be available / to assist. will conduct caregiver training when appropriate and if pt goes home, will nee HHPT . will continue to assess progress for safe d/c plan. Goals Bed Mobility Goal Independent Transfer Goal Independent,Front Wheeled Walker Gait Goal Independent,Front Wheel Walker Gait Distance 200 Frequency of Treatment Frequency Of Treatment Once a Day Treatment Plan Physical Therapy Treatment Plan Bed Mobility Training,Transfer Training,Gait Training, Therapeutic Exercise,Balance Retraining,Discharge Planning, Hot or Cold Pack,Neuromuscular Re-ed,Coordination Retraining Precautions Other Precautions contact precaution (c-diff) Recommendations To Nursing Amount of Assist Needed 1 Person Assist Discharge Recommendations PT Discharge Recommendations Home with Assistance,Home with 24/7 Assist Available,Home Health,SNF Rehab,Home vs SNF Transportation Needs at Discharge Private Vehicle,Wheelchair/ Cabulance
--- NOTE | 2022-02-16 14:10 | OT.IP.EVAL ---
Current Diagnoses Type 2 diabetes mellitus without complications (02/12/22) Hypokalemia (02/12/22) Hypotension, unspecified (02/12/22) Nausea with vomiting, unspecified (02/12/22) Diarrhea, unspecified (02/12/22) Past Medical History (Last Updated 02/12/22 @ 04:39 by Allan Lemus MD) Acute CVA (cerebrovascular accident) Alcohol intoxication Closed hip fracture COVID DKA (diabetic ketoacidoses) DKA (diabetic ketoacidosis) Fibromyalgia Gastroesophageal reflux disease History of hip surgery Insulin dependent diabetes mellitus Lupus Osteoporosis Surgical History (Last Reviewed 02/03/22 @ 19:14 by Nadya Griffin [facility]) History of hip surgery Occupational Therapy Inpatient Evaluation/Re-Eval M1 PT/OT-IP Prior Functional Status Start: 02/12/22 15:01 Freq: NEEDED Status: Active Protocol: Document 02/16/22 14:31 [facility] (Rec: 02/16/22 14:52 [facility] [id number]) Medical Review Prior Functional Status Medical History Reviewed Yes Communication able to make needs known Mobility and Gait pt stated that she is modified independent with all mobilities and ambulation using a FWW Activities of Daily Living and IADL's Pt states prior able to do all her ADl needs and needing assist for IADL needs. Prior Functional Level (Other details) Pt states prior to having BJORN twice was able to do all her IADl needs on her own but now needing to rely on her family for assist. Social History Household Members family Living Arrangements House Number of Stairs To Enter/Railing? ramp to enter the house Home Environment Standard Height Toilet,Tub/ Shower Home Equipment Front Wheel Walker,Shower Seat with Backrest,Hand Held Shower,Grab Bars In Shower M2 OT-IP Current Condition Start: 02/16/22 14:34 Freq: Status: Active Protocol: Document 02/16/22 14:31 [facility] (Rec: 02/16/22 14:52 [facility] [id number]) Occupational Therapy Current Condition Current Condition Evaluation Date 02/16/22 Treatment Diagnosis UTI, C-diff Diagnosis Onset Date 02/12/22 M3 OT- IP Subjective and Pain Start: 02/16/22 14:34 Freq: Status: Active Protocol: Document 02/16/22 14:31 [facility] (Rec: 02/16/22 14:52 [facility] [id number]) OT- Subjective Occupational Therapy Visit Type Type Initial Evaluation Visit Start Time 14:02 Visit Stop Time 14:31 Total Visit Minutes 29 Occupational Therapy Visit Comments Patient Comments Pt wanting to get up to use the BSC. Patient/Caregiver Goals Pt wanting to be able to do IADl on her own again as not wanting to rely on her family to help here. OT Pain Assessment Pain When Pain Assessed At Rest Pain Present Pain Present Denied Pain M4 OT- IP ADL's Start: 02/16/22 14:34 Freq: Status: Active Protocol: Document 02/16/22 14:31 [facility] (Rec: 02/16/22 14:52 [facility] [id number]) OT BDP-Duea-Tawwvhr Comments OT Self-Feeding Comments NOt at meal time. OT ADL-Grooming Comments OT Grooming Comments Pt able to stand at the sink with FWW for grooming needs. OT ADL-Oral Care Comments Oral Care Comments Pt did not perform as getting too tired. OT ADL-Dressing General Eval Lower Body Dressing Ability Standby Assistance Comments OT Dressing Comments Pt able to doff /jesus brief over her feet with increased time. OT ADL-Toileting General Evaluation Toileting Ability Standby Assistance Comments OT Toileting Comments VC for safety awareness of hygiene to wipe from the back after a bowel movement as pt trying to wipe from the front. OT ADL-Bathing Comments OT Bathing Comments Not performed. M5 OT- IP IADL's Start: 02/16/22 14:34 Freq: Status: Active Protocol: Document 02/16/22 14:31 [facility] (Rec: 02/16/22 14:52 [facility] [id number]) OT-Instrumental Activities of Daily Living Home Safety Awareness Awareness of Need for Assistance at Home Good Awareness Medication Management Medication Management Comments Pt states sets up her own medications Money Management Money Management Caregiver Provides Assistance Meal Preparation Meal Preparation Caregiver Provides Assist Topographical Surveyor Topographical Surveyor Caregiver Provides Assist M6 OT- IP Functional Cognition Start: 02/16/22 14:34 Freq: Status: Active Protocol: Document 02/16/22 14:31 [facility] (Rec: 02/16/22 14:52 [facility] [id number]) Cognitive Factors Limiting Selfcare Function Cognitive Ability Level of Alertness Alert Patient Orientation Name,Place,Situation Attention Span Ability Capable of Focused Attention, Capable of Sustained Attention Ability to Follow Commands Able to Follow One Step Commands Safety Awareness Underestimates Need for Assistance Cognitive Comments Cognitive Assessment Comments Pt needing cues to have the FWW in front of her at all times. Pt would benefit from a cognitive assessment. OT- Vision and Hearing OT- Hearing Assessment OT- Hearing Assessment WFL OT- Vision Assessment Visual Acuity Glasses All The Time M7 OT- IP Mobility and Balance Start: 02/16/22 14:34 Freq: Status: Active Protocol: Document 02/16/22 14:31 [facility] (Rec: 02/16/22 14:52 [facility] [id number]) OT- Bed Mobility Assessment Rolling Type of Rolling Roll to Right Level of Assistance Standby Assistance Supine to Sit Supine to Sit Assist Standby Assistance Sit to Supine Sit to Supine Assist Standby Assistance Scooting Scooting to Edge of Bed Standby Assistance OT-Transfer Assessment Sit to and From Stand Sit to and from Stand Standby Assistance Transfers Transfer Ability Standby Assistance,Contact Guard Assistance Technique Transfer Destination Bed Transfer Technique Stand Step Pivot Devices Transfer Assistive Devices Gait Belt,Front Wheeled Walker Comments Mobility Comments Pt O2 on RA dropped to 86% after getting back from the sink and then within one minutes O2 increased to 94%. Pt CGA/close SBA with FWW. OT- Balance Assessment Sitting Balance and Reactions Static Sitting Balance Ability Good Dynamic Sitting Balance Ability Good Standing Balance and Reactions Static Standing Balance Ability Fair Dynamic Standing Balance Ability Fair M8 OT- IP Objective Assessments Start: 02/16/22 14:34 Freq: Status: Active Protocol: Document 02/16/22 14:31 [facility] (Rec: 02/16/22 14:52 [facility] [id number]) OT Gross Range of Motion Upper Extremity Range of Motion ROM Impairments Grossly WFL for BUE OT Strength Comments Strength Comments RUE 4/5 and LUE 4-/5 OT- Coordination Assessment Comments Coordination Comments Pt states since her CVA at times drops items with her left hand. OT-Muscle Tone Assessment Muscle Tone WNL Yes M9 OT- IP Assessment and Plan Start: 02/16/22 14:34 Freq: Status: Active Protocol: Document 02/16/22 14:31 [facility] (Rec: 02/16/22 14:52 [facility] [id number]) OT Summary Assessment and Plan Potential Rehabilitation Potential Good Analytic Complexity at Evaluation Moderate Summary OT Impairments Balance,Coordination Assessment Summary Pt MOD complexity and here due to UTI and c-diff and would benefit from skilled rehab to be more independent with her needs and safety awareness, so not so dependent on her family to assist her especially with IADl needs. Pt is very cooperative, pleasant and wanting to go to skilled rehab to get hopefully back to her baseline prior to having had COVID x2. Goals Self-Feeding Goal Independent Grooming Goal Independent Dressing Goal Independent Toileting Goal Independent Bathing Goal Independent Toilet Transfer Goal Independent Shower Transfer Goal Independent Days to Meet Goals 15 Frequency of Treatment Frequency Of Treatment Once a Day Treatment Plan OT Treatment Plan ADL Training,Functional Mobility,Patient/Family Education,Discharge Planning Discharge Recommendations OT Discharge Recommendations SNF Rehab Transportation Needs at Discharge Wheelchair/Cabulance
--- NOTE | 2022-02-16 14:56 | OT.IP.EVAL ---
Current Diagnoses Type 2 diabetes mellitus without complications (02/12/22) Hypokalemia (02/12/22) Hypotension, unspecified (02/12/22) Nausea with vomiting, unspecified (02/12/22) Diarrhea, unspecified (02/12/22) Past Medical History (Last Updated 02/12/22 @ 04:39 by Allan Lemus MD) Acute CVA (cerebrovascular accident) Alcohol intoxication Closed hip fracture COVID DKA (diabetic ketoacidoses) DKA (diabetic ketoacidosis) Fibromyalgia Gastroesophageal reflux disease History of hip surgery Insulin dependent diabetes mellitus Lupus Osteoporosis Surgical History (Last Reviewed 02/03/22 @ 19:14 by Nadya Griffin [facility]) History of hip surgery Occupational Therapy Inpatient Evaluation/Re-Eval M1 PT/OT-IP Prior Functional Status Start: 02/12/22 15:01 Freq: NEEDED Status: Active Protocol: Document 02/16/22 14:31 [facility] (Rec: 02/16/22 14:52 [facility] [id number]) Medical Review Prior Functional Status Medical History Reviewed Yes Communication able to make needs known Mobility and Gait pt stated that she is modified independent with all mobilities and ambulation using a FWW Activities of Daily Living and IADL's Pt states prior able to do all her ADl needs and needing assist for IADL needs. Prior Functional Level (Other details) Pt states prior to having BJORN twice was able to do all her IADl needs on her own but now needing to rely on her family for assist. Social History Household Members family Living Arrangements House Number of Stairs To Enter/Railing? ramp to enter the house Home Environment Standard Height Toilet,Tub/ Shower Home Equipment Front Wheel Walker,Shower Seat with Backrest,Hand Held Shower,Grab Bars In Shower M2 OT-IP Current Condition Start: 02/16/22 14:34 Freq: Status: Active Protocol: Document 02/16/22 14:31 [facility] (Rec: 02/16/22 14:52 [facility] [id number]) Occupational Therapy Current Condition Current Condition Evaluation Date 02/16/22 Treatment Diagnosis UTI, C-diff Diagnosis Onset Date 02/12/22 M3 OT- IP Subjective and Pain Start: 02/16/22 14:34 Freq: Status: Active Protocol: Document 02/16/22 14:31 [facility] (Rec: 02/16/22 14:52 [facility] [id number]) OT- Subjective Occupational Therapy Visit Type Type Initial Evaluation Visit Start Time 14:02 Visit Stop Time 14:31 Total Visit Minutes 29 Occupational Therapy Visit Comments Patient Comments Pt wanting to get up to use the BSC. Patient/Caregiver Goals Pt wanting to be able to do IADl on her own again as not wanting to rely on her family to help here. OT Pain Assessment Pain When Pain Assessed At Rest Pain Present Pain Present Denied Pain M4 OT- IP ADL's Start: 02/16/22 14:34 Freq: Status: Active Protocol: Document 02/16/22 14:31 [facility] (Rec: 02/16/22 14:52 [facility] [id number]) OT IHO-[place] Comments OT Self-Feeding Comments NOt at meal time. OT ADL-Grooming Comments OT Grooming Comments Pt able to stand at the sink with FWW for grooming needs. OT ADL-Oral Care Comments Oral Care Comments Pt did not perform as getting too tired. OT ADL-Dressing General Eval Lower Body Dressing Ability Standby Assistance Comments OT Dressing Comments Pt able to doff /jesus brief over her feet with increased time. OT ADL-Toileting General Evaluation Toileting Ability Standby Assistance Comments OT Toileting Comments VC for safety awareness of hygiene to wipe from the back after a bowel movement as pt trying to wipe from the front. OT ADL-Bathing Comments OT Bathing Comments Not performed. M5 OT- IP IADL's Start: 02/16/22 14:34 Freq: Status: Active Protocol: Document 02/16/22 14:31 [facility] (Rec: 02/16/22 14:52 [facility] [id number]) OT-Instrumental Activities of Daily Living Home Safety Awareness Awareness of Need for Assistance at Home Good Awareness Medication Management Medication Management Comments Pt states sets up her own medications Money Management Money Management Caregiver Provides Assistance Meal Preparation Meal Preparation Caregiver Provides Assist Hr Administrative Assistant Hr Administrative Assistant Caregiver Provides Assist M6 OT- IP Functional Cognition Start: 02/16/22 14:34 Freq: Status: Active Protocol: Document 02/16/22 14:31 [facility] (Rec: 02/16/22 14:52 [facility] [id number]) Cognitive Factors Limiting Selfcare Function Cognitive Ability Level of Alertness Alert Patient Orientation Name,Place,Situation Attention Span Ability Capable of Focused Attention, Capable of Sustained Attention Ability to Follow Commands Able to Follow One Step Commands Safety Awareness Underestimates Need for Assistance Cognitive Comments Cognitive Assessment Comments Pt needing cues to have the FWW in front of her at all times. Pt would benefit from a cognitive assessment. OT- Vision and Hearing OT- Hearing Assessment OT- Hearing Assessment WFL OT- Vision Assessment Visual Acuity Glasses All The Time M7 OT- IP Mobility and Balance Start: 02/16/22 14:34 Freq: Status: Active Protocol: Document 02/16/22 14:31 [facility] (Rec: 02/16/22 14:52 [facility] [id number]) OT- Bed Mobility Assessment Rolling Type of Rolling Roll to Right Level of Assistance Standby Assistance Supine to Sit Supine to Sit Assist Standby Assistance Sit to Supine Sit to Supine Assist Standby Assistance Scooting Scooting to Edge of Bed Standby Assistance OT-Transfer Assessment Sit to and From Stand Sit to and from Stand Standby Assistance Transfers Transfer Ability Standby Assistance,Contact Guard Assistance Technique Transfer Destination Bed Transfer Technique Stand Step Pivot Devices Transfer Assistive Devices Gait Belt,Front Wheeled Walker Comments Mobility Comments Pt O2 on RA dropped to 86% after getting back from the sink and then within one minutes O2 increased to 94%. Pt CGA/close SBA with FWW. OT- Balance Assessment Sitting Balance and Reactions Static Sitting Balance Ability Good Dynamic Sitting Balance Ability Good Standing Balance and Reactions Static Standing Balance Ability Fair Dynamic Standing Balance Ability Fair M8 OT- IP Objective Assessments Start: 02/16/22 14:34 Freq: Status: Active Protocol: Document 02/16/22 14:31 [facility] (Rec: 02/16/22 14:52 [facility] [id number]) OT Gross Range of Motion Upper Extremity Range of Motion ROM Impairments Grossly WFL for BUE OT Strength Comments Strength Comments RUE 4/5 and LUE 4-/5 OT- Coordination Assessment Comments Coordination Comments Pt states since her CVA at times drops items with her left hand. OT-Muscle Tone Assessment Muscle Tone WNL Yes M9 OT- IP Assessment and Plan Start: 02/16/22 14:34 Freq: Status: Active Protocol: Document 02/16/22 14:31 [facility] (Rec: 02/16/22 14:52 [facility] [id number]) OT Summary Assessment and Plan Potential Rehabilitation Potential Good Analytic Complexity at Evaluation Moderate Summary OT Impairments Balance,Coordination Assessment Summary Pt MOD complexity and here due to UTI and c-diff and would benefit from skilled rehab to be more independent with her needs and safety awareness, so not so dependent on her family to assist her especially with IADl needs. Pt is very cooperative, pleasant and wanting to go to skilled rehab to get hopefully back to her baseline prior to having had COVID x2. If pt not authorized to SNF, pt would benefit from available 24/7 assist and home health Goals Self-Feeding Goal Independent Grooming Goal Independent Dressing Goal Independent Toileting Goal Independent Bathing Goal Independent Toilet Transfer Goal Independent Shower Transfer Goal Independent Days to Meet Goals 15 Frequency of Treatment Frequency Of Treatment Once a Day Treatment Plan OT Treatment Plan ADL Training,Functional Mobility,Patient/Family Education,Discharge Planning Discharge Recommendations OT Discharge Recommendations SNF Rehab versus home with 24/7 available assist and home health Transportation Needs at Discharge Wheelchair/Cabulance
--- NOTE | 2022-02-16 17:28 | CM.DPC ---
DCP/continued: Received return phone calls from both [facility] and [facility] indicating patient does not have SNF benefit. Therefore, she will return home when medically stable with home health resumed through [facility]. New P.T. evaluation placed today. Patient currently medical status and out of ICU. Received call from Katie from [facility] indicating that family reaching out to her for assistance for long-term care. Notified Katie that patient does not have SNF benefit therefore, that is not an option plus it is anticipated that patient will be appropriate with mobility at time of d/c. Unclear from conversation with Katie how much has been done to assist this as outpatient. FIXED INCOME ANALYST explained to Katie that patient will go home with and that it would be in [facility] best interests to assist her and her family with assisted plans. Unfortunately, staying in acute care is not a viable option. Per Katie at [facility], patient does not qualify for Medicare and MARY ANNE has not been applied? Will request CM team do expedited MARY ANNE application prior to d/c. Also per Katie's request will order FIXED INCOME ANALYST consult for outpatient mental health options. Referral made and case discussed with ED/FIXED INCOME ANALYST Damaris. P: Home with services resumed through [facility]. Patient does not have SNF rehab benefit therefore, home when stable. [facility] resources for mental health and MARY ANNE expedited referral to be placed prior to d/c. Therapy made aware via email and discussion with Berenice that patient does not have rehab benefit. JAYLEN
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
[2022-02-16] MEDS: ACETAMINOPHEN 325 MG TABLET 650 MG PO (20:48)
[2022-02-17 06:09] LABS: Albumin 1.9 g/dL (3.5-5.0); BUN Creatinine Ratio 11.3 (6-22); Blood Urea Nitrogen 7 mg/dL (7-17); Calcium 6.5 mg/dL (8.4-10.2); Carbon Dioxide 29 mmol/L (22-32); Chloride 104 mmol/L (98-107); Estimated Glomerular Filt Rate > 60 mL/min (>60); Glucose 142 mg/dL (70-100); HEMOLYSIS 15 (0-50); Phosphorous 2.6 mg/dL (2.5-4.5); Potassium 4.5 mmol/L (3.4-5.1); Sodium 133 mmol/L (137-145)
[2022-02-17 06:12] LABS: Add Manual Diff / Slide Review NO; Basophils Absolute Auto 0 /uL (0-100); Basophils Percent Auto 0.4 % (0-2); Eosinophils Absolute Auto 200 /uL (0-450); Eosinophils Percent Auto 1.7 % (2-4); Hematocrit 22.2 % (36-46); Hemoglobin 7.1 g/dL (12.0-16.0); Lymphocytes Absolute Auto 2000 /uL (1100-4500); Lymphocytes Percent Auto 21.8 % (25-40); Mean Corpuscular Hemoglobin 27.2 PG (26-34); Monocytes Absolute Auto 700 /uL (0-900); Monocytes Percent Auto 7.9 % (3-14); Neutrophils Absolute Auto 6300 /uL (1500-7000); Neutrophils Percent Auto 68.2 % (50-75); Platelet Count 410 X10^3/uL (150-400); Red Blood Cell Count 2.61 X10^6/uL (4.0-5.2); Red Cell Distribution Width 17.6 % (11.6-14.8); White Blood Cell Count 9.3 X10^3/uL (4.5-11.0)
[2022-02-17 08:00] VITALS: BP 85/54; PULSE 90; RESP 16; TEMP 36.8; O2SAT 97
[2022-02-17] MEDS: FIDAXOMICIN 200 MG TABLET PO ×2 (08:09→21:34)
[2022-02-17] MEDS: BUSPIRONE 5 MG TABLET 20 MG PO ×3 (08:10→21:33)
[2022-02-17] MEDS: GABAPENTIN 300 MG CAPSULE 900 MG PO ×3 (08:10→21:33)
[2022-02-17] MEDS: CYCLOBENZAPRINE 10 MG TABLET PO ×2 (08:10→16:13)
[2022-02-17] MEDS: HYDROMORPHONE 1 MG INJ IV ×2 (08:10→11:51)
[2022-02-17] MEDS: ACETAMINOPHEN 325 MG TABLET 650 MG PO ×2 (08:10→16:13)
[2022-02-17] MEDS: ENOXAPARIN 40 MG/0.4 ML SYRINGE SUBCUT (08:11)
[2022-02-17] MEDS: INSULIN LISPRO 100 UNIT/ML 3ML VIAL SUBCUT ×2 (08:22→17:28)
--- NOTE | 2022-02-17 08:26 | PM.PN.1 ---
Subjective Subjective Interval history: Daily hospitalist visit. 46-year-old female with insulin-dependent diabetes admitted with septic shock and severe C difficile colitis.? Blood cultures have been negative.? Urine culture was obtained day after admission with patient already on Zosyn.? She is on fidaxomicin for the C diff. Currently Zosyn has been discontinued due to negative cultures. Stools still frequent but beginning to be formed. Eating well. Some abdominal cramping discomfort but localized in abdomen. Has back pain that is chronic and frontal sinus pain that patient thinks is seasonal allergies with request for Claritin by patient. Patient had COVID in July 2021 with hospitalization. Exam Vital Signs (past 8 hours): Oxygen Delivery Method Room Air Oxygen Flow Rate 0 Const General: cooperative and comfortable HENMT Other: Pain with percussion of frontal sinuses. Resp Auscultation: clear to auscultation bilaterally Cardio Rate: tachycardic Rhythm: regular rhythm Heart Sounds: S1 normal and S2 normal GI Inspection: normal to inspection Palpation: soft and tender Back/Spine/Pelvis Thoracic/Lumbar Spine: lumbar spinal tenderness Objective Labs Result Diagrams: 02/17/22 05:38 02/17/22 05:38 Labs: Laboratory Results - last 24 hr 02/17/22 02/17/22 05:38 05:38 WBC 9.3 RBC 2.61 L Hgb 7.1 L Hct 22.2 L MCV 85.0 MCH 27.2 MCHC 32.0 RDW 17.6 H Plt Count 410 H Neut % (Auto) 68.2 Lymph % (Auto) 21.8 L [place] % (Auto) 7.9 Eos % (Auto) 1.7 L Baso % (Auto) 0.4 Neut # (Auto) 6300 Lymph # (Auto) 2000 [place] # (Auto) 700 Eos # (Auto) 200 Baso # (Auto) 0 Sodium 133 L Potassium 4.5 Chloride 104 Carbon Dioxide 29 BUN 7 Creatinine 0.62 Estimated GFR > 60 BUN/Creatinine Ratio 11.3 Glucose 142 H Calcium 6.5 L Phosphorus 2.6 Albumin 1.9 L [facility] Medical History (Updated 02/12/22 @ 04:39 by H Brandin Lemus MD) Acute CVA (cerebrovascular accident) Alcohol intoxication Closed hip fracture COVID DKA (diabetic ketoacidoses) DKA (diabetic ketoacidosis) Fibromyalgia Gastroesophageal reflux disease Insulin dependent diabetes mellitus Lupus Osteoporosis Surgical History History of hip surgery Family History Mother Diabetes mellitus Congestive heart failure Pancreatic cancer Father Diabetes mellitus Brother Diabetes mellitus Pancreatitis Sister Drug overdose Social History household members: family Smoking Status: Former smoker alcohol intake: current Assessment & Plan Assessment & Plan narrative: 1. C. diff colitis, status post recent abx use for UTI. Stools still frequent but formed more. Remains on Fidaxmicin. 2. Non-AG metabolic acidosis, likely due to diarrhea on admission. 3. Septic shock, resolved with continued antibiotics. BP stable off pressors. 4. Thrombocytosis, likely reactive. Beginning to improve. 5. Normocytic anemia, chronic, likely due to chronic inflammation. Anemia of chronic disease. 6. Insulin-dependent DM II 7. Acute on chronic severe protein-calorie malnutrition. Eating well now. Albumin still low. 8. Anxiety. Continue with buspirone. 9. Hypokalemia - now normal. 10. Leukocytosis - normal today. Continue to follow. 11. Hyponatremia. Stable mildly low. Follow. 12. Frontal sinus pain. Typical of patient's allergy pain, treat with Claritin. 13. Back pain, chronic. Treating. Follow clinically and labs. Time Spent With Patient Critical Care time: I spent a total of [] minutes of critical care time on this patient's care today; this time is exclusive of procedural time. Quality VTE Deep Vein Thrombosis/Pulmonary Embolism Present on Admission: No
[2022-02-17 09:30] VITALS: BP 85/54; PULSE 101; RESP 19; TEMP 36.7; O2SAT 99
[2022-02-17] MEDS: LORATADINE 10 MG TABLET PO (09:31)
[2022-02-17 12:00] VITALS: BP 98/53; PULSE 100; RESP 20; TEMP 36.6; O2SAT 96
--- NOTE | 2022-02-17 12:35 | OT.IP.TRT ---
Current Diagnoses Type 2 diabetes mellitus without complications (02/12/22) Hypokalemia (02/12/22) Hypotension, unspecified (02/12/22) Nausea with vomiting, unspecified (02/12/22) Diarrhea, unspecified (02/12/22) Occupational Therapy Treatment Note M2 OT-IP Current Condition Start: 02/16/22 14:34 Freq: Status: Active Protocol: Document 02/16/22 14:31 [facility] (Rec: 02/16/22 14:52 [facility] [id number]) Occupational Therapy Current Condition Current Condition Evaluation Date 02/16/22 Treatment Diagnosis UTI, C-diff Diagnosis Onset Date 02/12/22 M3 OT- IP Subjective and Pain Start: 02/16/22 14:34 Freq: Status: Active Protocol: Document 02/17/22 12:12 [facility] (Rec: 02/17/22 12:51 [facility] [id number]) OT- Subjective Occupational Therapy Visit Type Type Treatment Note Visit Start Time 12:12 Visit Stop Time 12:35 Total Visit Minutes 13 Occupational Therapy Visit Comments Patient Comments Pt just getting back to the bed after working with nursing aid. Pt also able to shower earlier. Patient/Caregiver Goals To go home. OT Pain Assessment Pain When Pain Assessed At Rest Pain Present Pain Present Denied Pain M4 OT- IP ADL's Start: 02/16/22 14:34 Freq: Status: Active Protocol: Document 02/17/22 12:12 [facility] (Rec: 02/17/22 12:51 [facility] [id number]) OT CUS-Zqxz-Cwvfdgz Comments OT Self-Feeding Comments NOt at meal time. OT ADL-Grooming General Evaluation Grooming Ability Independent Comments OT Grooming Comments Pt able to stand at the sink with FWW for grooming needs. OT ADL-Oral Care General Eval Oral Care Ability Independent Comments Oral Care Comments Able to do while standing with the FWW. M5 OT- IP IADL's Start: 02/16/22 14:34 Freq: Status: Active Protocol: Document 02/16/22 14:31 [facility] (Rec: 02/16/22 14:52 [facility] [id number]) OT-Instrumental Activities of Daily Living Home Safety Awareness Awareness of Need for Assistance at Home Good Awareness Medication Management Medication Management Comments Pt states sets up her own medications Money Management Money Management Caregiver Provides Assistance Meal Preparation Meal Preparation Caregiver Provides Assist Regrind Mill Operator Regrind Mill Operator Caregiver Provides Assist M6 OT- IP Functional Cognition Start: 02/16/22 14:34 Freq: Status: Active Protocol: Document 02/17/22 12:12 [facility] (Rec: 02/17/22 12:51 [facility] [id number]) Cognitive Factors Limiting Selfcare Function Cognitive Comments Cognitive Assessment Comments Pt doing much better with FWW safety today. M7 OT- IP Mobility and Balance Start: 02/16/22 14:34 Freq: Status: Active Protocol: Document 02/17/22 12:12 [facility] (Rec: 02/17/22 12:51 [facility] [id number]) OT- Bed Mobility Assessment Rolling Type of Rolling Roll to Right Level of Assistance Standby Assistance Supine to Sit Supine to Sit Assist Standby Assistance Sit to Supine Sit to Supine Assist Standby Assistance Scooting Scooting to Edge of Bed Standby Assistance OT-Transfer Assessment Sit to and From Stand Sit to and from Stand Standby Assistance Transfers Transfer Ability Standby Assistance Technique Transfer Destination Bed Transfer Technique Stand Step Pivot Devices Transfer Assistive Devices Gait Belt,Front Wheeled Walker Comments Mobility Comments Pt SBA for bed mobility and to walk to and from the sink to bed with good safety today. M8 OT- IP Objective Assessments Start: 02/16/22 14:34 Freq: Status: Active Protocol: Document 02/16/22 14:31 [facility] (Rec: 02/16/22 14:52 [facility] [id number]) OT Gross Range of Motion Upper Extremity Range of Motion ROM Impairments Grossly WFL for BUE OT Strength Comments Strength Comments RUE 4/5 and LUE 4-/5 OT- Coordination Assessment Comments Coordination Comments Pt states since her CVA at times drops items with her left hand. OT-Muscle Tone Assessment Muscle Tone WNL Yes M9 OT- IP Assessment and Plan Start: 02/16/22 14:34 Freq: Status: Active Protocol: Document 02/17/22 12:12 [facility] (Rec: 02/17/22 12:51 [facility] [id number]) OT Summary Assessment and Plan Potential Rehabilitation Potential Good Analytic Complexity at Evaluation Moderate Summary OT Impairments Balance,Coordination Progress Towards Goals Progressing Toward Goals Assessment Summary Pt doing much better today and pt feeling wants to go home with home health. Pt able to participate in shower/ toileting per nursing aid earlier and mostly independent . Pt to go home with 24/7 assist when medically stable. Goals Self-Feeding Goal Independent Grooming Goal Independent Dressing Goal Independent Toileting Goal Independent Bathing Goal Independent Toilet Transfer Goal Independent Shower Transfer Goal Independent Days to Meet Goals 10 Frequency of Treatment Frequency Of Treatment Once a Day Treatment Plan OT Treatment Plan ADL Training,Functional Mobility,Patient/Family Education,Discharge Planning Discharge Recommendations OT Discharge Recommendations Home with 24/ Assist Available,Home Health Transportation Needs at Discharge Private Vehicle
[2022-02-17] MEDS: HYDROMORPHONE 2 MG TABLET PO ×3 (14:07→22:27)
--- NOTE | 2022-02-17 14:31 | PT.IPTN ---
Current Diagnoses Type 2 diabetes mellitus without complications (02/12/22) Hypokalemia (02/12/22) Hypotension, unspecified (02/12/22) Nausea with vomiting, unspecified (02/12/22) Diarrhea, unspecified (02/12/22) Physical Therapy Treatment Note M2 PT-IP Current Condition Start: 02/12/22 15:01 Freq: NEEDED Status: Active Protocol: Document 02/16/22 13:11 AB (Rec: 02/16/22 15:34 AB [id number]) Physical Therapy Current Condition Current Condition Evaluation Date 02/16/22 Treatment Diagnosis sepsis; difficulty in walking Onset Date 02/12/22 M3 PT-IP Subjective Start: 02/12/22 15:01 Freq: NEEDED Status: Active Protocol: Document 02/17/22 14:19 [place] (Rec: 02/17/22 14:43 KS [id number]) Subjective Physical Therapy Visit Type Type Treatment Note Visit Start Time 14:19 Visit Stop Time 14:31 Total Visit Minutes 12 Number of CLINICAL ACCOUNT LIAISON Visits 1 Physical Therapy Visit Comments Patient Comments agreeable to do PT M4 PT-IP Mobility and Gait Start: 02/12/22 15:01 Freq: NEEDED Status: Active Protocol: Document 02/17/22 14:19 [place] (Rec: 02/17/22 14:43 KS [id number]) PT-Bed Mobility Assessment Supine to Sit Supine to Sit Standby Assistance Sit to Supine Sit to Supine Standby Assistance Scooting Scooting to Edge of Bed Standby Assistance PT-Transfer Assessment Sit to and From Stand Sit to and from Stand Contact Guard Assistance,1 Person Assistance,Use of Upper Extremities Equipment Transfer Assistive Device Gait Belt,Front Wheeled Walker Orthotic/Prosthetic Devices or Brace: No Transfers Transfer Destination Bed Transfer Technique Pt ambulated Transfer Ability Level of Assist Standby Assistance,Contact Guard Assistance,1 Person Assistance,Use of Upper Extremities Comments Mobility Comments Pt in bed upon arrival. SBA for sup<>sit. Pt reports slight dizziness that only takes ~1 min to subside. BP: 100/66. Denied dizziness upon standing. Pt then ambulated ~ 90 ft around room w/ FWW SBA/ CGA. Pt w/ good use of FWW but decreased stride and foot clearance due to weakness and quick approach to fatigue. Pt returned to bed SBA. Pt left in bed w/ alarm on and all needs in reach. Encouraged pt to perform ankle pumps and SLR in bed to which she was agreeable. Gait Assessment Gait Gait Assistance Required: Standby Assistance,Contact Guard Assist,1 Person Assist Distance (Feet) 90 Able to Maintain Weight Bearing Status Yes During Gait Assistive Devices Assistive Device Gait Belt,Front Wheeled Walker Orthotic/Prosthetic Devices or Brace: No Gait Deviations General Gait Pattern Decreased Stride Length, Decreased Feet Clearance Factors Limiting Gait Function Factors Limiting Gait Function Decreased Activity Tolerance, Decreased Sensation,Decreased Strength Comments Gait Comments Please refer to mobility section for details. Stair Climbing Assessment Comments Stair Climbing Comments Did not assess. PT-Balance Assessment Sitting Balance and Reactions Static Sitting Balance Ability Good Dynamic Sitting Balance Ability Good Standing Balance and Reactions Static Standing Balance Ability Good Dynamic Standing Balance Ability Good Device Used FWW M5 PT-IP Objective Assessments Start: 02/12/22 15:01 Freq: NEEDED Status: Active Protocol: Document 02/16/22 13:11 AB (Rec: 02/16/22 15:34 AB [id number]) Orientation Orientation/Cognition Level of Alertness Alert Orientation Name,Place,Situation Safety Awareness Decreased Safety Awareness Memory Description No Deficits Noted Gross Range of Motion Lower Extremity ROM Assessment Within Functional Limits Strength Lower Extremity Strength Assessment Bilaterally Impaired Hip 3+/5 Knee 3+/5 Sensation Assessment Sensation Gross Sensation Right LE Impaired,Left LE Impaired Sensation Description Tingling Comments Sensation Comments pt has neuropathy on BLE Muscle Tone Muscle Tone WNL Yes M6 PT-IP Treatment Start: 02/12/22 15:01 Freq: NEEDED Status: Active Protocol: Document 02/17/22 14:19 KS (Rec: 02/17/22 14:43 KS [id number]) Physical Therapy Treatment Education Education Provided Safety M7 PT-IP Assessment and Plan Start: 02/12/22 15:01 Freq: NEEDED Status: Active Protocol: Document 02/17/22 14:19 KS (Rec: 02/17/22 14:43 KS [id number]) PT Summary Assessment and Plan Potential Rehabilitation Potential Fair Status of Condition at Evaluation Evolving Summary Impairments Pain,ROM,Strength,Balance, Coordination,Sensation,Tone, Cognition,Bed Mobility, Transfers,Gait,Activity Tolerance Assessment Summary Pt showing improvements w/ mobility and activity tolerance, but remains limited by weakness and quick approach to fatigue. SBA for bed mobility, SBA to CGA for 90 ft ambulation w/ FWW. Pt still slightly dizzy w/ positional changes but subsides quickly and BP low but stable. Pt will benefit from HHPT to improve strength and activity tolerance. Goals Bed Mobility Goal Independent Transfer Goal Independent,Front Wheeled Walker Gait Goal Independent,Front Wheel Walker Gait Distance 200 Frequency of Treatment Frequency Of Treatment Once a Day Treatment Plan Physical Therapy Treatment Plan Bed Mobility Training,Transfer Training,Gait Training, Therapeutic Exercise,Balance Retraining,Discharge Planning, Hot or Cold Pack,Neuromuscular Re-ed,Coordination Retraining Precautions Other Precautions contact precaution (c-diff) Recommendations To Nursing Amount of Assist Needed 1 Person Assist Discharge Recommendations PT Discharge Recommendations Home with Assistance,Home Health,Home vs SNF Transportation Needs at Discharge Private Vehicle
[2022-02-17] MEDS: ONDANSETRON 4 MG/2 ML INJ IV (16:12)
--- NOTE | 2022-02-17 18:27 | PC.NURSE ---
Day Shift Note Mobility improving throughout shift, SBA with FWW. Alert and oriented x3. BP stable in the low 100s systolic. Up to bathroom many times for loose stools, more formed but still frequent. Reports pain to LLQ and lower back, medicating with PO Dilaudid, flexeril, Tylenol, and warm blankets - pt reports effective for pain control at this time. Call light within reach, using appropriately to make needs known.
[2022-02-17 20:00] VITALS: BP 94/58; PULSE 104; RESP 17; TEMP 36.3; O2SAT 98
[2022-02-18] VITALS (7 sets, daily range): BP systolic 85–103; BP diastolic 53–65; PULSE 100–117; RESP 17–20; TEMP 36.2–37.3; O2SAT 95–98
[2022-02-18] MEDS: ACETAMINOPHEN 325 MG TABLET 650 MG PO ×2 (01:49→09:46)
[2022-02-18] MEDS: CYCLOBENZAPRINE 10 MG TABLET PO ×2 (01:49→09:46)
[2022-02-18] MEDS: HYDROMORPHONE 2 MG TABLET PO ×4 (05:46→21:30)
[2022-02-18 06:00] LABS: Add Manual Diff / Slide Review NO; Basophils Absolute Auto 100 /uL (0-100); Basophils Percent Auto 0.8 % (0-2); Eosinophils Absolute Auto 100 /uL (0-450); Eosinophils Percent Auto 1.9 % (2-4); Hematocrit 22.7 % (36-46); Hemoglobin 7.3 g/dL (12.0-16.0); Lymphocytes Absolute Auto 1800 /uL (1100-4500); Lymphocytes Percent Auto 27.8 % (25-40); Mean Corpuscular Hemoglobin 27.5 PG (26-34); Mean Corpuscular Volume 85.9 fL (80-100); Monocytes Absolute Auto 400 /uL (0-900); Monocytes Percent Auto 6.4 % (3-14); Neutrophils Absolute Auto 4200 /uL (1500-7000); Neutrophils Percent Auto 63.1 % (50-75); Platelet Count 279 X10^3/uL (150-400); Red Blood Cell Count 2.64 X10^6/uL (4.0-5.2); Red Cell Distribution Width 17.9 % (11.6-14.8); White Blood Cell Count 6.6 X10^3/uL (4.5-11.0)
[2022-02-18 06:02] LABS: BUN Creatinine Ratio 10.6 (6-22); Blood Urea Nitrogen 7 mg/dL (7-17); Calcium 6.6 mg/dL (8.4-10.2); Carbon Dioxide 30 mmol/L (22-32); Chloride 104 mmol/L (98-107); Estimated Glomerular Filt Rate > 60 mL/min (>60); Glucose 157 mg/dL (70-100); HEMOLYSIS < 15 (0-50); Phosphorous 2.7 mg/dL (2.5-4.5); Potassium 4.7 mmol/L (3.4-5.1); Sodium 134 mmol/L (137-145)
[2022-02-18] MEDS: INSULIN LISPRO 100 UNIT/ML 3ML VIAL SUBCUT ×3 (07:45→22:13)
[2022-02-18] MEDS: LOPERAMIDE 2 MG CAPSULE 4 MG PO (08:52)
[2022-02-18] MEDS: LORATADINE 10 MG TABLET PO (08:52)
[2022-02-18] MEDS: BUSPIRONE 5 MG TABLET 20 MG PO ×3 (08:52→21:30)
[2022-02-18] MEDS: ENOXAPARIN 40 MG/0.4 ML SYRINGE SUBCUT (08:53)
[2022-02-18] MEDS: GABAPENTIN 300 MG CAPSULE 900 MG PO ×3 (08:53→21:35)
[2022-02-18] MEDS: FIDAXOMICIN 200 MG TABLET PO ×2 (09:43→21:30)
--- NOTE | 2022-02-18 10:30 | PT.IPTN ---
Current Diagnoses Type 2 diabetes mellitus without complications (02/12/22) Hypokalemia (02/12/22) Hypotension, unspecified (02/12/22) Nausea with vomiting, unspecified (02/12/22) Diarrhea, unspecified (02/12/22) Physical Therapy Treatment Note M2 PT-IP Current Condition Start: 02/12/22 15:01 Freq: NEEDED Status: Active Protocol: Document 02/16/22 13:11 AB (Rec: 02/16/22 15:34 AB [id number]) Physical Therapy Current Condition Current Condition Evaluation Date 02/16/22 Treatment Diagnosis sepsis; difficulty in walking Onset Date 02/12/22 M3 PT-IP Subjective Start: 02/12/22 15:01 Freq: NEEDED Status: Active Protocol: Document 02/18/22 10:16 KS (Rec: 02/18/22 12:15 KS [id number]) Subjective Physical Therapy Visit Type Type Treatment Note Visit Start Time 10:16 Visit Stop Time 10:30 Total Visit Minutes 14 Number of TOY ASSEMBLER Visits 2 Physical Therapy Visit Comments Patient Comments agreeable to do PT M4 PT-IP Mobility and Gait Start: 02/12/22 15:01 Freq: NEEDED Status: Active Protocol: Document 02/18/22 10:16 KS (Rec: 02/18/22 12:15 KS [id number]) PT-Bed Mobility Assessment Supine to Sit Supine to Sit Standby Assistance Sit to Supine Sit to Supine Standby Assistance Scooting Scooting to Edge of Bed Standby Assistance PT-Transfer Assessment Sit to and From Stand Sit to and from Stand Standby Assistance,1 Person Assistance,Use of Upper Extremities Equipment Transfer Assistive Device Gait Belt,Front Wheeled Walker Orthotic/Prosthetic Devices or Brace: No Transfers Transfer Destination Bed,Bedside Commode Transfer Technique Pt ambulated Transfer Ability Level of Assist Standby Assistance,Contact Guard Assistance,1 Person Assistance,Use of Upper Extremities Comments Mobility Comments Pt in bed upon arrival and requesting to use BSC. SBA for sup<>sit, Sit<>stand and transfer. Pt denied dizziness. After using commode, pt ambulated to sink w/ FWW where she was able to maintain standing balance w/o AD ~4 min while she performed hand washing and oral care. Pt then ambulated additional 40 ft around room w/ FWW SBA. Decreased stide and foot clearance, slow gait due to weakness but good use of FWW and no LOB. Pt returned to bed SBA and left in bed w/ all needs in reach. Gait Assessment Gait Gait Assistance Required: Standby Assistance,1 Person Assist Distance (Feet) 50 Able to Maintain Weight Bearing Status Yes During Gait Assistive Devices Assistive Device Gait Belt,Front Wheeled Walker Orthotic/Prosthetic Devices or Brace: No Gait Deviations General Gait Pattern Decreased Stride Length, Decreased Feet Clearance Factors Limiting Gait Function Factors Limiting Gait Function Decreased Activity Tolerance, Decreased Sensation,Decreased Strength Comments Gait Comments Please refer to mobility section for details. Stair Climbing Assessment Comments Stair Climbing Comments Did not assess. PT-Balance Assessment Sitting Balance and Reactions Static Sitting Balance Ability Good Dynamic Sitting Balance Ability Good Standing Balance and Reactions Static Standing Balance Ability Good Dynamic Standing Balance Ability Good Device Used FWW M5 PT-IP Objective Assessments Start: 02/12/22 15:01 Freq: NEEDED Status: Active Protocol: Document 02/16/22 13:11 AB (Rec: 02/16/22 15:34 AB [id number]) Orientation Orientation/Cognition Level of Alertness Alert Orientation Name,Place,Situation Safety Awareness Decreased Safety Awareness Memory Description No Deficits Noted Gross Range of Motion Lower Extremity ROM Assessment Within Functional Limits Strength Lower Extremity Strength Assessment Bilaterally Impaired Hip 3+/5 Knee 3+/5 Sensation Assessment Sensation Gross Sensation Right LE Impaired,Left LE Impaired Sensation Description Tingling Comments Sensation Comments pt has neuropathy on BLE Muscle Tone Muscle Tone WNL Yes M6 PT-IP Treatment Start: 02/12/22 15:01 Freq: NEEDED Status: Active Protocol: Document 02/18/22 10:16 [place] (Rec: 02/18/22 12:15 [place] [id number]) Physical Therapy Treatment Education Education Provided Safety M7 PT-IP Assessment and Plan Start: 02/12/22 15:01 Freq: NEEDED Status: Active Protocol: Document 02/18/22 10:16 KS (Rec: 02/18/22 12:15 KS [id number]) PT Summary Assessment and Plan Potential Rehabilitation Potential Fair Status of Condition at Evaluation Evolving Summary Impairments Pain,ROM,Strength,Balance, Coordination,Sensation,Tone, Cognition,Bed Mobility, Transfers,Gait,Activity Tolerance Assessment Summary Pt limited by low tolerance for activity and requires longer to perform mobility and ambulation due to weakness and fatigue, but at this time is only requiring SBA for bed mobility, transfers, and ambulation w/ FWW. She will benefit from HHPT to improve strength and activity tolerance. Goals Bed Mobility Goal Independent Transfer Goal Independent,Front Wheeled Walker Gait Goal Independent,Front Wheel Walker Gait Distance 200 Frequency of Treatment Frequency Of Treatment Once a Day Treatment Plan Physical Therapy Treatment Plan Bed Mobility Training,Transfer Training,Gait Training, Therapeutic Exercise,Balance Retraining,Discharge Planning, Hot or Cold Pack,Neuromuscular Re-ed,Coordination Retraining Precautions Other Precautions contact precaution (c-diff) Recommendations To Nursing Amount of Assist Needed 1 Person Assist Discharge Recommendations PT Discharge Recommendations Home with Assistance,Home Health,Home vs SNF Transportation Needs at Discharge Private Vehicle
--- NOTE | 2022-02-18 11:45 | OT.IP.TRT ---
Current Diagnoses Type 2 diabetes mellitus without complications (02/12/22) Hypokalemia (02/12/22) Hypotension, unspecified (02/12/22) Nausea with vomiting, unspecified (02/12/22) Diarrhea, unspecified (02/12/22) Occupational Therapy Treatment Note M2 OT-IP Current Condition Start: 02/16/22 14:34 Freq: Status: Active Protocol: Document 02/16/22 14:31 [facility] (Rec: 02/16/22 14:52 [facility] [id number]) Occupational Therapy Current Condition Current Condition Evaluation Date 02/16/22 Treatment Diagnosis UTI, C-diff Diagnosis Onset Date 02/12/22 M3 OT- IP Subjective and Pain Start: 02/16/22 14:34 Freq: Status: Active Protocol: Document 02/18/22 12:01 [facility] (Rec: 02/18/22 12:13 [facility] [id number]) OT- Subjective Occupational Therapy Visit Type Type Treatment Note Visit Start Time 11:45 Visit Stop Time 11:53 Total Visit Minutes 8 Occupational Therapy Visit Comments Patient Comments Pt agreed to do a cognitive assessment as too tired to get up at this time. Patient/Caregiver Goals to go home OT Pain Assessment Pain When Pain Assessed At Rest Pain Present Pain Present Pain Reported Location Abdomen Description Cramping M5 OT- IP IADL's Start: 02/16/22 14:34 Freq: Status: Active Protocol: Document 02/16/22 14:31 [facility] (Rec: 02/16/22 14:52 [facility] [id number]) OT-Instrumental Activities of Daily Living Home Safety Awareness Awareness of Need for Assistance at Home Good Awareness Medication Management Medication Management Comments Pt states sets up her own medications Money Management Money Management Caregiver Provides Assistance Meal Preparation Meal Preparation Caregiver Provides Assist Quilt Maker Quilt Maker Caregiver Provides Assist M6 OT- IP Functional Cognition Start: 02/16/22 14:34 Freq: Status: Active Protocol: Document 02/18/22 12:01 [facility] (Rec: 02/18/22 12:13 [facility] [id number]) Cognitive Factors Limiting Selfcare Function Cognitive Ability Level of Alertness Alert Patient Orientation Name,Year,Day of Week,Place, Situation Attention Span Ability Capable of Focused Attention, Capable of Sustained Attention Ability to Follow Commands Able to Follow One Step Commands with Increased Time, Able to Follow One Step Commands with Repetition Memory Description Short Term Impaired,Working Impaired Cognitive Tests SLUMS Initiated SLUMS and able to states the day of week, year, and state we live in , and read the question to pt of , You have $100 and you go to the store and buy apples for $ 3 and a piece of steak for $20 , how much did you spend. Pt not able to answer currently after repetition of the questions a few times,and breaking down the question into seperate parts. Pt got frustrated as not able to come up with the right answer and just calling out numbers [phone] , and finally states, I do not want to do this anymore as you are making me feel bad . Nursing notified that pt is upset as having difficulty to complete the cognitive assessment. Cognitive Comments Cognitive Assessment Comments Pt got upset when having difficulty with the cognitive assessment and not wanting to finish the assessment when she was having difficulty with calculations of the numbers. M8 OT- IP Objective Assessments Start: 02/16/22 14:34 Freq: Status: Active Protocol: Document 02/16/22 14:31 [facility] (Rec: 02/16/22 14:52 [facility] [id number]) OT Gross Range of Motion Upper Extremity Range of Motion ROM Impairments Grossly WFL for BUE OT Strength Comments Strength Comments RUE 4/5 and LUE 4-/5 OT- Coordination Assessment Comments Coordination Comments Pt states since her CVA at times drops items with her left hand. OT-Muscle Tone Assessment Muscle Tone WNL Yes M9 OT- IP Assessment and Plan Start: 02/16/22 14:34 Freq: Status: Active Protocol: Document 02/18/22 12:01 [facility] (Rec: 02/18/22 12:13 [facility] [id number]) OT Summary Assessment and Plan Potential Rehabilitation Potential Good Analytic Complexity at Evaluation Moderate Summary OT Impairments Balance,Coordination Progress Towards Goals Slow Progress due to Cognition Assessment Summary Pt not wanting to complete the SLUMS assessment as getting upset as having difficulty with with calculation of numbers and tearing up. Assessment stopped. Pt does admit that she has to write things down often for herself. Continue to suggested pt home when medically stable with / assist and home health. Goals Self-Feeding Goal Independent Grooming Goal Independent Dressing Goal Independent Toileting Goal Standby Assistance Bathing Goal Standby Assistance Toilet Transfer Goal Independent Shower Transfer Goal Standby Assistance Days to Meet Goals 10 Frequency of Treatment Frequency Of Treatment Once a Day Treatment Plan OT Treatment Plan ADL Training,Functional Mobility,Patient/Family Education,Discharge Planning Discharge Recommendations OT Discharge Recommendations Home with 24/ Assist Available,Home Health Transportation Needs at Discharge Private Vehicle
--- NOTE | 2022-02-18 13:00 | DIET.CONS2 ---
Dietary Inpatient Consultation Note Admission Date: 02/12/2022 04:44 Outpatient DM education referral received by PCP, DM outpatient scheduler calling pt to set up OP appointment with DM educator RD for continued care. Diet: 02/12/22 Breakfast Carbohydrate Consistent Diet Diet Modifications: Easy chew Carbohydrate level: Medium (3 CHO) Bedtime snack: Yes Nutrition Percent Meal Consumed 100% 02/18/22 10:21 Percent Meal Consumed 100% 02/17/22 18:39 Percent Meal Consumed 75% 02/17/22 13:30 Percent Meal Consumed 100% 02/17/22 12:23 Percent Meal Consumed 100% 02/16/22 18:00 Percent Meal Consumed 100% 02/16/22 16:00 Electronically Signed by: Viviana Graves 02/18/22 13:00 Clinical Dietitian [address] [address]
--- NOTE | 2022-02-18 16:02 | PM.PN.1 ---
Subjective Subjective Interval history: Hospitalist Daily Visit. Patient not getting much sleep due to either having loose bowel movement or having discomfort in her intestines. Persistent sinus headache. Exam Vital Signs (past 8 hours): - 02/18/22 12:00 Temperature 97.2 F L Pulse Rate 117 H Respiratory Rate 17 Blood Pressure 91/53 L Pulse Oximetry 96 Oxygen Delivery Method Room Air Oxygen Flow Rate 0 Narrative Exam Narrative: Patient alert oriented to time place and person. Vital Signs still have soft blood pressure and elevated heart rate at 117. HEENT: Persistent tenderness of the frontal sinuses on percussion. Pupils equal reactive to light. Extraocular movements normal. Neck is supple. The toes are nontender and nonpalpable. Cardiovascular: Heart sounds S1 and S2 with no extra sounds or murmurs. Peripheral pulses equal bilaterally. No pedal edema. Respiratory: Adequate air entry throughout the lung baxter. No wheezes or crackles. Gastrointestinal: Tenderness of the descending colon left side of the abdomen and in the area where the sigmoid colon is. Bowel sounds present. Chills or rectal: Not done. Musculoskeletal: Able to move all extremities volitionally no specific localized strength deficits. Neuro: No localized neurological signs extremities. Objective ECG Impression: 1. C. diff colitis, status post recent abx use for UTI. Stools still frequent but formed more. Remains on Fidaxmicin. Due to discomfort in the abdomen and frequent stooling, the patient is not getting enough sleep. Will initiate loperamide today and can have subsequently daily if having loose stools. 2. Non-AG metabolic acidosis, likely due to diarrhea on admission. 3. Septic shock, resolved with continued antibiotics. BP stable but soft off pressors. 4. Thrombocytosis, likely reactive. Beginning to improve. 5. Normocytic anemia, chronic, likely due to chronic inflammation. Anemia of chronic disease. Currently stable at 7.3 6. Insulin-dependent DM II 7. Acute on chronic severe protein-calorie malnutrition. Eating well now. Albumin still low. 8. Anxiety. Continue with buspirone. 9. Hypokalemia - now normal. 10. Leukocytosis - normal today. Continue to follow. 11. Hyponatremia. Stable mildly low. Follow. 12. Frontal sinus pain. Typical of patient's allergy pain, treat with Claritin. Add Sudafed 30 mg q.6h as needed. 13. Back pain, chronic. Treating. Follow clinically and labs. Labs Result Diagrams: 02/18/22 05:30 02/18/22 05:30 Labs: Laboratory Results - last 24 hr 02/18/22 02/18/22 05:30 05:30 WBC 6.6 RBC 2.64 L Hgb 7.3 L Hct 22.7 L MCV 85.9 MCH 27.5 MCHC 32.0 RDW 17.9 H Plt Count 279 Neut % (Auto) 63.1 Lymph % (Auto) 27.8 [place] % (Auto) 6.4 Eos % (Auto) 1.9 L Baso % (Auto) 0.8 Neut # (Auto) 4200 Lymph # (Auto) 1800 [place] # (Auto) 400 Eos # (Auto) 100 Baso # (Auto) 100 Sodium 134 L Potassium 4.7 Chloride 104 Carbon Dioxide 30 BUN 7 Creatinine 0.66 Estimated GFR > 60 BUN/Creatinine Ratio 10.6 Glucose 157 H Calcium 6.6 L Phosphorus 2.7 Albumin 2.0 L PFSH Medical History (Updated 02/18/22 @ 00:01 by ) Acute CVA (cerebrovascular accident) Alcohol intoxication Closed hip fracture COVID DKA (diabetic ketoacidoses) DKA (diabetic ketoacidosis) Fibromyalgia Gastroesophageal reflux disease Insulin dependent diabetes mellitus Lupus Osteoporosis Surgical History History of hip surgery Family History Mother Diabetes mellitus Congestive heart failure Pancreatic cancer Father Diabetes mellitus Brother Diabetes mellitus Pancreatitis Sister Drug overdose Social History household members: family Smoking Status: Former smoker alcohol intake: current Assessment & Plan Time Spent With Patient Critical Care time: I spent a total of [] minutes of critical care time on this patient's care today; this time is exclusive of procedural time. Quality VTE Deep Vein Thrombosis/Pulmonary Embolism Present on Admission: No
[2022-02-18] MEDS: MELATONIN 3 MG TABLET PO (21:30)
[2022-02-19] MEDS: HYDROMORPHONE 2 MG TABLET PO ×3 (03:32→16:37)
[2022-02-19 04:51] VITALS: BP 102/55; PULSE 108; RESP 20; TEMP 37; O2SAT 97
[2022-02-19 05:27] LABS: Add Manual Diff / Slide Review NO; Basophils Absolute Auto 100 /uL (0-100); Basophils Percent Auto 0.8 % (0-2); Eosinophils Absolute Auto 100 /uL (0-450); Eosinophils Percent Auto 1.2 % (2-4); Hematocrit 24.2 % (36-46); Hemoglobin 7.6 g/dL (12.0-16.0); Lymphocytes Absolute Auto 1500 /uL (1100-4500); Lymphocytes Percent Auto 18.9 % (25-40); Mean Corpuscular HGB Conc 31.4 % (30-36); Mean Corpuscular Hemoglobin 27.1 PG (26-34); Mean Corpuscular Volume 86.2 fL (80-100); Monocytes Absolute Auto 400 /uL (0-900); Monocytes Percent Auto 4.8 % (3-14); Neutrophils Absolute Auto 5800 /uL (1500-7000); Neutrophils Percent Auto 74.3 % (50-75); Platelet Count 252 X10^3/uL (150-400); Red Blood Cell Count 2.81 X10^6/uL (4.0-5.2); Red Cell Distribution Width 17.8 % (11.6-14.8); White Blood Cell Count 7.9 X10^3/uL (4.5-11.0)
[2022-02-19 05:39] LABS: Albumin 2.1 g/dL (3.5-5.0); BUN Creatinine Ratio 12.9 (6-22); Blood Urea Nitrogen 8 mg/dL (7-17); Calcium 6.7 mg/dL (8.4-10.2); Carbon Dioxide 29 mmol/L (22-32); Chloride 103 mmol/L (98-107); Estimated Glomerular Filt Rate > 60 mL/min (>60); Glucose 148 mg/dL (70-100); HEMOLYSIS 45 (0-50); Sodium 132 mmol/L (137-145)
[2022-02-19 05:40] LABS: Potassium 5.7 mmol/L (3.4-5.1)
[2022-02-19 07:15] VITALS: BP 86/53; PULSE 106; RESP 18; TEMP 36.7; O2SAT 95
[2022-02-19] MEDS: INSULIN LISPRO 100 UNIT/ML 3ML VIAL SUBCUT ×3 (07:46→17:22)
[2022-02-19] MEDS: LORATADINE 10 MG TABLET PO (08:57)
[2022-02-19] MEDS: GABAPENTIN 300 MG CAPSULE 900 MG PO ×2 (08:57→15:36)
[2022-02-19] MEDS: BUSPIRONE 5 MG TABLET 20 MG PO ×2 (08:57→15:36)
[2022-02-19] MEDS: ENOXAPARIN 40 MG/0.4 ML SYRINGE SUBCUT (08:58)
[2022-02-19] MEDS: FIDAXOMICIN 200 MG TABLET PO (08:59)
[2022-02-19] MEDS: ACETAMINOPHEN 325 MG TABLET 650 MG PO (09:45)
[2022-02-19] MEDS: CYCLOBENZAPRINE 10 MG TABLET PO (09:45)
--- NOTE | 2022-02-19 11:14 | OT.IPNOTE ---
Pt has now independent in the room for her ADL's and therefore pt agreed to discharge from OT services but wanting to continue with PT services for now. No charge
--- NOTE | 2022-02-19 11:15 | PT.IPTN ---
Current Diagnoses Type 2 diabetes mellitus without complications (02/12/22) Hypokalemia (02/12/22) Hypotension, unspecified (02/12/22) Nausea with vomiting, unspecified (02/12/22) Diarrhea, unspecified (02/12/22) Physical Therapy Treatment Note M2 PT-IP Current Condition Start: 02/12/22 15:01 Freq: NEEDED Status: Active Protocol: Document 02/16/22 13:11 AB (Rec: 02/16/22 15:34 AB [id number]) Physical Therapy Current Condition Current Condition Evaluation Date 02/16/22 Treatment Diagnosis sepsis; difficulty in walking Onset Date 02/12/22 M3 PT-IP Subjective Start: 02/12/22 15:01 Freq: NEEDED Status: Active Protocol: Document 02/19/22 11:05 KS (Rec: 02/19/22 12:35 KS [id number]) Subjective Physical Therapy Visit Type Type Treatment Note Visit Start Time 11:05 Visit Stop Time 11:15 Total Visit Minutes 10 Number of HOME RESTORATION SERVICE SUPERVISOR Visits 3 Physical Therapy Visit Comments Patient Comments agreeable to do PT M4 PT-IP Mobility and Gait Start: 02/12/22 15:01 Freq: NEEDED Status: Active Protocol: Document 02/19/22 11:05 KS (Rec: 02/19/22 12:35 KS [id number]) PT-Bed Mobility Assessment Supine to Sit Supine to Sit Standby Assistance Sit to Supine Sit to Supine Standby Assistance Scooting Scooting to Edge of Bed Standby Assistance PT-Transfer Assessment Sit to and From Stand Sit to and from Stand Standby Assistance,1 Person Assistance,Use of Upper Extremities Equipment Transfer Assistive Device Gait Belt,Front Wheeled Walker Orthotic/Prosthetic Devices or Brace: No Transfers Transfer Destination Bed Transfer Technique Pt ambulated Transfer Ability Level of Assist Standby Assistance,1 Person Assistance,Use of Upper Extremities Comments Mobility Comments Pt in bed upon arrival and agreeable to ambulate. SBA for sup<>sit and sit<>stand w/ FWW. pt amb 60 ft around room SBA, slow consuelo but stable w / good use of FWW. pt w/ quick approach to fatigue and returned to bed SBA. Gait Assessment Gait Gait Assistance Required: Standby Assistance,1 Person Assist Distance (Feet) 60 Able to Maintain Weight Bearing Status Yes During Gait Assistive Devices Assistive Device Gait Belt,Front Wheeled Walker Orthotic/Prosthetic Devices or Brace: No Gait Deviations General Gait Pattern Decreased Stride Length, Decreased Feet Clearance Factors Limiting Gait Function Factors Limiting Gait Function Decreased Activity Tolerance, Decreased Sensation,Decreased Strength Comments Gait Comments Please refer to mobility section for details. Stair Climbing Assessment Comments Stair Climbing Comments Did not assess. PT-Balance Assessment Sitting Balance and Reactions Static Sitting Balance Ability Good Dynamic Sitting Balance Ability Good Standing Balance and Reactions Static Standing Balance Ability Good Dynamic Standing Balance Ability Good Device Used FWW M5 PT-IP Objective Assessments Start: 02/12/22 15:01 Freq: NEEDED Status: Active Protocol: Document 02/16/22 13:11 AB (Rec: 02/16/22 15:34 AB [id number]) Orientation Orientation/Cognition Level of Alertness Alert Orientation Name,Place,Situation Safety Awareness Decreased Safety Awareness Memory Description No Deficits Noted Gross Range of Motion Lower Extremity ROM Assessment Within Functional Limits Strength Lower Extremity Strength Assessment Bilaterally Impaired Hip 3+/5 Knee 3+/5 Sensation Assessment Sensation Gross Sensation Right LE Impaired,Left LE Impaired Sensation Description Tingling Comments Sensation Comments pt has neuropathy on BLE Muscle Tone Muscle Tone WNL Yes M6 PT-IP Treatment Start: 02/12/22 15:01 Freq: NEEDED Status: Active Protocol: Document 02/19/22 11:05 KS (Rec: 02/19/22 12:35 KS [id number]) Physical Therapy Treatment Exercises Exercises Ankle Pumps,Gluteal Sets Education Education Provided Safety M7 PT-IP Assessment and Plan Start: 02/12/22 15:01 Freq: NEEDED Status: Active Protocol: Document 02/19/22 11:05 KS (Rec: 02/19/22 12:35 KS [id number]) PT Summary Assessment and Plan Potential Rehabilitation Potential Fair Status of Condition at Evaluation Evolving Summary Impairments Pain,ROM,Strength,Balance, Coordination,Sensation,Tone, Cognition,Bed Mobility, Transfers,Gait,Activity Tolerance Assessment Summary Pt continues to have low tolerance for activity but remains SBA for bed mob, transfers, and ambulation w/ FWW. She will benefit from HHPT to improve strength and activity tolerance. Goals Bed Mobility Goal Independent Transfer Goal Independent,Front Wheeled Walker Gait Goal Independent,Front Wheel Walker Gait Distance 200 Frequency of Treatment Frequency Of Treatment Once a Day Treatment Plan Physical Therapy Treatment Plan Bed Mobility Training,Transfer Training,Gait Training, Therapeutic Exercise,Balance Retraining,Discharge Planning, Hot or Cold Pack,Neuromuscular Re-ed,Coordination Retraining Precautions Other Precautions contact precaution (c-diff) Recommendations To Nursing Amount of Assist Needed 1 Person Assist Discharge Recommendations PT Discharge Recommendations Home with Assistance,Home Health Transportation Needs at Discharge Private Vehicle
[2022-02-19] MEDS: ONDANSETRON 4 MG/2 ML INJ IV (11:50)
[2022-02-19] MEDS: LOPERAMIDE 2 MG CAPSULE PO (16:37)
--- NOTE | 2022-02-20 14:22 | CM.DPNOTE ---
DC Note Late Entry Patient DC home yesterday via NED transport [employer] (after hours) Faxed new referral to keshav PAG[facility] per keshav's request (not a resumption of care) so faxed new clinical packet, signed F2F, EJ order Completed the [facility] Intake and Referral form and faxed on patient's behalf to request expedited assessment of need for potential in home caregivers Plan: DC home w/family yesterday, [facility] services, f/u pending from [facility] JW
--- NOTE | 2022-03-05 11:34 | PM.DS.1 ---
History of Present Illness History of Present Illness Date Patient Seen: 02/19/22 Chief complaint: UTI, hypotension Discharge Providers Provider Date of admission: 02/12/22 04:44 Discharge Date: 02/19/22 Primary care physician: Jhonny Evans PA-C Consults: 02/12/22 04:52 Consult to Occupational Therapy Evaluate & Treat Comment: Physician Instructions: Evaluate and treat Consult to Physical Therapy Evaluate & Treat Comment: Physician Instructions: Evaluate and Treat 02/12/22 05:41 Consult to Dietitian, Adult Routine Comment: Reason For Exam: decreased dietary intake, BMI <25 02/14/22 05:27 Consult After Hours PICC Line RN Routine Comment: Double Lumen Picc 02/16/22 09:48 Consult to Physical Therapy Evaluate & Treat Comment: potential SNF placement/HH Physician Instructions: Evaluate and Treat 02/16/22 09:50 Consult to Occupational Therapy Evaluate & Treat Comment: potential SNF placement/HH Physician Instructions: Evaluate and treat 02/16/22 11:48 Consult to Physical Therapy Evaluate & Treat Comment: Physician Instructions: Evaluate and Treat 02/16/22 14:16 [place] [facility] [place] [facility] Routine Comment: Mental Health evaluation for community resources 02/19/22 16:43 Consult to Home Health Routine Comment: Reason For Exam: Home health upon DC Discharge provider: Talya Colon MD Summary Hospital Course Discharge Diagnosis: C difficile diarrhea Hospital Course: Patient initially presented with a UTI and hypotension consistent with concern for septic shock secondary to an infection. Patient is an insulin dependent diabetic who had a documented UTI being treated in the community with cephalexin for E. Coli. She was experiencing persistent vomiting/diarrhea and falls with non anion gap metabolic acidosis documented when she presented and also an initial blood sugar of 400 and potassium of 2.9 and sodium of 126. To maintain her blood pressure on presentation, the patient was treated with levophed infusion and treated in the ICU. WBC initially was 44.5. The concern initially was for septic shock, UTI, and C. difficile. Treatment was initiated empirically with fidaxomicin, vancomycin and Zosyn. Blood and urine cultures proved to be negative although the urine culture was obtained after initiation of IV antibiotics. However, the C. difficile was positive. Once it was clear the patient did not require levophed support, and her blood and urine cultures were negative, the vancomycin and Zosyn were discontinued. With the C difficile, the patient had persistent profuse diarrhea and required loperamide to curb the severity just prior to and at discharge. One further week of fidaxomicin was prescribed at discharge. Status at Discharge Cognitive/behavioral status at discharge: at baseline, oriented Functional status at discharge: independent ambulation Overall status at discharge: patient is progressing back to baseline Time Spent with Patient Time spent: Greater than 30 minutes Exam Vital Signs (past 8 hours): Oxygen Delivery Method Room Air Oxygen Flow Rate 0 Const General: cooperative and comfortable Eyes General: appearance normal, both eyes and all related structures Resp Effort & Inspection: normal respiratory effort and able to speak in complete sentences Cardio Rhythm: regular rhythm Heart Sounds: S1 normal and S2 normal GI Inspection: normal to inspection Palpation: soft Auscultation: normal bowel sounds Neuro General: patient alert and patient oriented x3 Extrem General: normal to inspection Other: Normal ambuation. Psych Mood: congruent mood Objective Labs Result Diagrams: 02/19/22 05:20 02/19/22 05:20 [facility] Medical History (Updated 02/18/22 @ 00:01 by ) Acute CVA (cerebrovascular accident) Alcohol intoxication Closed hip fracture COVID DKA (diabetic ketoacidoses) DKA (diabetic ketoacidosis) Fibromyalgia Gastroesophageal reflux disease Insulin dependent diabetes mellitus Lupus Osteoporosis Surgical History History of hip surgery Family History Mother Diabetes mellitus Congestive heart failure Pancreatic cancer Father Diabetes mellitus Brother Diabetes mellitus Pancreatitis Sister Drug overdose Social History household members: family Smoking Status: Former smoker alcohol intake: current Discharge Assessment & Plan Assessment and Plan Assessment: Stable. Ready for discharge. Plan of Treatment: Discharge home. Discharge Plan Discharge Plan Patient Disposition: Home Health Service Transfer to: Home Health, Other Provider Discharge Comment: Unable to put loperamide on discharge meds. Rx written for 2 mg p.o. TID as needed for loose stools. Discharge orders & Medications Prescriptions: New acetaminophen 325 mg Tablet 650 mg PO Q6HR PRN (Reason: Headache) Qty: 60 0RF melatonin 3 mg Tablet 3 mg PO BEDTIME Qty: 30 0RF hydromorphone 2 mg Tablet 2 mg PO Q4HR PRN (Reason: Pain, Severe (7-10)) Qty: 30 0RF gabapentin [Neurontin] 300 mg Capsule 900 mg PO TID Qty: 90 0RF pseudoephedrine HCl 30 mg Tablet 30 mg PO Q6HR PRN (Reason: Congestion/ sinus headache) Qty: 30 0RF loratadine 10 mg Tablet 10 mg PO DAILY Qty: 30 0RF Dificid 200 mg Tablet 200 mg PO BID Qty: 14 0RF Continued insulin aspart U-100 [Novolog Flexpen U-100 Insulin] 100 unit/mL Insulin Pen 0 unit Sub-Q AC Qty: 3 0RF Rx Instructions: 1-3 UNITS TID buspirone 10 mg Tablet 2 tab PO TID cyclobenzaprine 10 mg Tablet 10 mg PO TID PRN (Reason: pain) insulin glargine 100 unit/mL (3 mL) insulin pen 10 unit SUBCUT DAILY Qty: 0 0RF (DME) Test N'Go Test Strip See Rx Instructions .Route Qty: 50 0RF Rx Instructions: As directed ondansetron HCl 4 mg tablet 4 mg PO TID Label Comments: TAKE 1 TABLET BY MOUTH THREE TIMES DAILY gabapentin 800 mg Tablet 800 mg PO TID lisinopril 10 mg Tablet 10 mg PO DAILY Creon 24,000-76,000 -120,000 unit Capsule,Delayed Release(Dr/Ec) See Rx Instructions .ROUTE .COMPLEX Rx Instructions: patient says they take 800un TID, 2400un total Follow up/Referrals: Jhonny Evans PA-C [Primary Care Provider] - Diet/Activity/Treatments Diet: Diet as Tolerated Other treatments: Home Health support at home. Discharge Data Primary Care Provider: Jhonny Evans Quality VTE Deep Vein Thrombosis/Pulmonary Embolism Present on Admission: No
== END 2022-02-19 17:31 | disposition home health service (06) | DRG 871 ==
LOC: ED 03:38 → ICU 07:35 → AC 02-16 15:09 → ICU 02-16 15:10
PROVIDERS: Internal Medicine; Internal Medicine Pulmonary Disease; Neuromusculoskeletal Medicine, Sports Medicine; Student in an Organized Health Care Education/Training Program; Admitting Provider Family Medicine; Emergency Provider Emergency Medicine; PCP Physician Assistant; Referring Provider Emergency Medicine; Visit Provider Family Medicine
DX: A41.9 Sepsis, unspecified organism (principal); R65.21 Severe sepsis with septic shock; E43 Unspecified severe protein-calorie malnutrition; N17.9 Acute kidney failure, unspecified; E87.2 Acidosis; E87.1 Hypo-osmolality and hyponatremia; A04.72 Enterocolitis due to Clostridium difficile, not specified as recurrent; E86.0 Dehydration; E87.6 Hypokalemia; F41.9 Anxiety disorder, unspecified; E11.65 Type 2 diabetes mellitus with hyperglycemia; R29.6 Repeated falls; D64.9 Anemia, unspecified; J30.2 Other seasonal allergic rhinitis; G89.29 Other chronic pain; M54.9 Dorsalgia, unspecified; Z87.891 Personal history of nicotine dependence; Z68.21 Body mass index [BMI] 21.0-21.9, adult; Z79.4 Long term (current) use of insulin; Z20.822 Contact with and (suspected) exposure to COVID-19
CPT/HCPCS: 36415; 36592; 70450; 71045; 72125; 74018; 80048; 80053; 80069; 80320; 81001; 82009; 82550; 82805; 82962; 83605; 83690; 83735; 84100; 84145; 84484; 84703; 85007; 85025; 85027; 85610; 86850; 86900; 86901; 87040; 87070; 87086; 87205; 87324; 87493; 87635; 87797; 93005; 94762; 96361; 96365; 96367; 96372; 97116; 97129; 97162; 97166; 97530; 97535; 99284; 99291; 99292; C9803; J0610; J0696; J1170; J1642; J1650; J1815; J1940; J2405; J2543; J3475

== ENCOUNTER 2022-03-17 20:52 | Emergency (ER) | payer MEDICAID, OTHER, SELFPAY ==
[2022-02-12 05:26] VITALS: BMI 21.4
[2022-03-17 20:55] VITALS: BP 109/72; PULSE 103; RESP 18; TEMP 36.4; O2SAT 97; BMI 19.3
[2022-03-18 00:32] VITALS: BP 101/67; PULSE 107; O2SAT 100
[2022-03-18 01:08] LABS: Add Manual Diff / Slide Review NO; Basophils Absolute Auto 100 /uL (0-100); Basophils Percent Auto 0.6 % (0-2); Eosinophils Absolute Auto 200 /uL (0-450); Eosinophils Percent Auto 1.8 % (2-4); Hematocrit 28.5 % (36-46); Lymphocytes Absolute Auto 2100 /uL (1100-4500); Lymphocytes Percent Auto 15.9 % (25-40); Mean Corpuscular HGB Conc 31.5 % (30-36); Mean Corpuscular Hemoglobin 26.7 PG (26-34); Mean Corpuscular Volume 84.8 fL (80-100); Monocytes Absolute Auto 700 /uL (0-900); Monocytes Percent Auto 4.9 % (3-14); Neutrophils Absolute Auto 10400 /uL (1500-7000); Neutrophils Percent Auto 76.8 % (50-75); Platelet Count 468 X10^3/uL (150-400); Red Blood Cell Count 3.36 X10^6/uL (4.0-5.2); Red Cell Distribution Width 17.3 % (11.6-14.8); White Blood Cell Count 13.5 X10^3/uL (4.5-11.0)
[2022-03-18 01:11] LABS: Alanine Aminotransferase 21 IU/L (<35); Albumin 4.1 g/dL (3.5-5.0); Albumin Globulin Ratio 1.1 (1.0-2.8); Alkaline Phosphatase 132 U/L (38-126); Aspartate Aminotransferase 37 IU/L (14-36); BUN Creatinine Ratio 23.5 (6-22); Bilirubin Total 0.5 mg/dL (0.2-1.3); Blood Urea Nitrogen 20 mg/dL (7-17); Calcium 8.1 mg/dL (8.4-10.2); Carbon Dioxide 18 mmol/L (22-32); Chloride 95 mmol/L (98-107); Estimated Glomerular Filt Rate > 60 mL/min (>60); Globulin 3.6 g/dL (1.7-4.1); Glucose 358 mg/dL (70-100); Sodium 126 mmol/L (137-145); Total Protein 7.7 g/dL (6.3-8.2)
[2022-03-18 01:13] LABS: HEMOLYSIS 54 (0-50)
[2022-03-18 01:14] LABS: Potassium 4.3 mmol/L (3.4-5.1)
--- NOTE | 2022-03-18 03:00 | DI.CT.S_ITS ---
PROCEDURE: CT ANGIO HEAD AND NECK INDICATIONS: Ataxia TECHNIQUE: Pre-contrast 4.5 mm thick sections acquired from the foramen magnum to the vertex. After the administration of intravenous contrast, 1 mm thick sections acquired from the aortic arch through the [place] of [place]. Post-contrast 4.5 mm thick sections then re-acquired from the foramen magnum to the vertex. 3-dimensional eepyqdq-htweeahbb-unagoqidqz (MIP) and/or volume rendering reformats were acquired of the central intracranial vasculature and neck separately. For radiation dose reduction, the following was used: automated exposure control, adjustment of mA and/or kV according to patient size. COMPARISON: [facility], CT, CT ANGIO HEAD AND NECK, 12/07/2021, 16:33. [facility], CT, CT ANGIO HEAD AND NECK, 08/11/2021, 17:08. FINDINGS: Image quality: Excellent. BRAIN: CSF spaces: Ventricles are normal in size and shape. Basal cisterns are patent. No extra-axial fluid collections. Brain: No midline shift. No intracranial bleeds or masses. Mackey-white matter interface appears intact. Skull and face: Calvarium and facial bones appear intact, without suspicious lesions. Orbits appear normal. Sinuses: Scattered right-sided ethmoid sinus mucosal thickening. Remainder of the paranasal sinuses appear clear. Mastoid air cells are well-aerated. HEAD CT ANGIOGRAPHY: Anterior circulation: Intracranial internal carotid arteries are normal in size and flow. The flow within the paired anterior cerebral arteries is normal and symmetric. The flow within the middle cerebral arteries is normal and symmetric. The anterior communicating artery is seen. No aneurysms are seen. Posterior circulation: Visualized portions of the vertebral arteries demonstrate normal caliber, and join to form a normal appearing basilar artery. Flow within the posterior cerebral arteries is normal and symmetric. No aneurysms are seen. NECK CT ANGIOGRAPHY: Carotid system: The great vessels demonstrate a conventional anatomy as they arise from the aortic arch. The origins of the common carotid arteries appear patent. The common carotid arteries demonstrate normal caliber and courses. The bifurcation regions are both widely patent. The internal carotid arteries demonstrate normal calibers and courses. Posterior circulation: The origins of the vertebral arteries both appear widely patent. The more superior extracranial portions of both vertebral arteries also demonstrate normal courses and calibers. They join to form a normal appearing basilar artery. Left side dominant vertebral artery system. Soft tissues: Visualized neck soft tissues demonstrate no suspicious abnormalities. Bones: No suspicious bony lesions. Visualized cervical spine appears normally aligned. IMPRESSION: 1. CT head without acute intracranial abnormalities. No mass or mass effect. 2. Negative CT angiogram of the intracranial arterial vasculature. No occlusion, hemodynamically significant stenosis, or aneurysm identified. 3. Negative CT angiogram of the neck arterial vasculature. No evidence for hemodynamically significant stenosis, dissection, or occlusion. Any quantitative measurements of stenosis were performed using NASCET criteria. No significant discrepancy with the operation shift supervisor radiology preliminary report. Dictated by: Dc Vernon M.D. on 03/18/2022 at 7:11 Approved by: Dc Vernon M.D. on 03/18/2022 at 7:19
--- NOTE | 2022-03-18 03:02 | ED_ITS ---
HPI - Dizziness General Chief Complaint: Dizziness Stated Complaint: n,v, visual changes Time Seen by Provider: 03/18/22 02:15 Source: patient Mode of arrival: Ambulatory History of Present Illness HPI Narrative: Patient brought here by family. Complains of 2 days of vision changes and dizziness and headache. Patient complains of blurry vision yesterday. Worsened today. Also with right-sided headache that started this morning/Tuesday morning. Symptoms with blurry visions door yesterday Tuesday. Also complains of lightheadedness dizziness. No slurred speech or facial droop. No numbness or tingling to the limbs. Patient is unsteady on standing. Denies any vomiting but does have nausea. No diarrhea. No chest pain no palpitations. Patient recently seen in the last month for UTI here. On February 03, 2022. Was seen in [facility] for nausea and vomiting and UTI. Patient does have history of stroke. Please see report of MRI in the past below. Patient just saw family doctor yesterday for UTI [place] [address] Magnetic Resonance Report Signed Patient: Valerie Garnica I MR#: [id number] : 1975 Acct:[id number] Age/Sex: 46 / F Date of Service: 12/08/21 Loc: 212-1 Accession Number: [id number] ?? Procedure: MR head/brain wo con Ordering Provider: Norman Orozco D.O. PROCEDURE:? MR HEAD/BRAIN WO CON ? INDICATIONS:? Right sided weakness, numbness. improving poss. CVA ? TECHNIQUE:? Noncontrast axial T1 spin echo, axial T2 fast spin echo, sagittal and axial FLAIR, coronal T2 fast spin echo, axial gradient echo, axial diffusion and ADC through the brain.? ? COMPARISON:? [facility], CT, CT STROKE, 12/07/2021, 14:28.? [facility], CT, CT ANGIO HEAD AND NECK, 12/07/2021, 16:33. ? FINDINGS:? These images demonstrate a small area of restricted diffusion in the medial perirolandic region involving the frontal and parietal lobes.? In this region there is gyriform increased T1 weighted signal near the cortex reflecting cortical laminar necrosis.? The degree of signal increase on the diffusion-weighted images and signal decrease on the ADC map suggest that this represents a late subacute infarct, along with the FLAIR signal abnormality and presence of cortical laminar necrosis.? There is also encephalomalacia and gliosis in the region on the corresponding CT.? Small remote lacunar infarct in the anterior right frontal deep lobe white matter. ? There is no other restricted diffusion to suggest an acute infarct.? No findings of mass effect or midline shift.? Normal ventricular caliber and position.? Patent basilar cisterns.? No unexpected intracranial susceptibility. ? IMPRESSION: ? Late subacute infarct in the right perirolandic region. ? Small remote lacunar infarct in the right frontal deep white matter.? ? ? Dictated by: Jaden Uriostegui M.D. on 12/08/2021 at 15:30 ? ? Approved by: Jaden Uriostegui M.D. on 12/08/2021 at 15:33 ? Related Data Home Medications Medication Instructions Recorded Confirmed buspirone 10 mg tablet 2 tab PO TID 12/08/18 02/14/22 cyclobenzaprine 10 mg tablet 10 mg PO TID PRN pain 12/08/18 02/14/22 gabapentin 800 mg tablet 800 mg PO TID 02/14/22 02/14/22 [id number] See Rx Instructions .Route .COMPLEX 02/14/22 02/15/22 24,000-76,000-120,000 unit capsule,delayed rel (Creon) lisinopril 10 mg tablet 10 mg PO DAILY 02/14/22 02/14/22 ondansetron HCl 4 mg tablet 4 mg PO TID 02/14/22 02/14/22 Previous Rx's Medication Instructions Recorded insulin aspart U-100 100 unit/mL 0 unit (0 mL) SUBCUT AC #3 units 02/12/18 (3 mL) subcutaneous pen (Novolog Flexpen U-100 Insulin aspart) blood sugar diagnostic (Test N'Go #50 ea 11/30/21 Test strips) insulin glargine 100 unit/mL (3 10 unit (0.1 mL) SUBCUT DAILY #0 mL 12/09/21 mL) subcutaneous pen acetaminophen 325 mg tablet 650 mg PO Q6HR PRN Headache #60 02/19/22 tabs fidaxomicin 200 mg tablet (Dificid) 200 mg PO BID #14 tabs 06/03/22 gabapentin 300 mg capsule 900 mg PO TID #90 caps 02/19/22 (Neurontin) hydromorphone 2 mg tablet 2 mg PO Q4HR PRN Pain, Severe 02/19/22 (7-10) #30 tabs loratadine 10 mg tablet 10 mg PO DAILY #30 tabs 02/19/22 melatonin 3 mg tablet 3 mg PO BEDTIME #30 tabs 02/19/22 pseudoephedrine HCl 30 mg tablet 30 mg PO Q6HR PRN Congestion/ 02/19/22 sinus headache #30 tabs Allergies Allergy/AdvReac Type Severity Reaction Status Date / Time amitriptyline Allergy Intermediate Verified 10/08/21 19:53 sulfasalazine [SULFASALAZINE] Allergy Mild PANCREATITI Verified 10/08/21 19:53 S trazodone AdvReac Intermediate HEART Verified 10/08/21 19:53 PALPITATIONS Review of Systems Review of Systems Narrative: GENERAL: Denies chills, fatigue, malaise, fever, sweats. HEENT: Denies sinus pain, ear pain, sore throat RESPIRATORY: Denies dyspnea, cough CARDIOVASCULAR: Denies chest pain, palpitations GASTROINTESTINAL: Positive for nausea, negative for vomiting, abdominal pain : Denies dysuria, frequency, hematuria MUSCULOSKELETAL: denies muscle or bony pain SKIN: Denies rash, skin lesions NEUROLOGIC: Denies weakness, numbness, positive for dizziness and blurry vision ROS Unobtainable: All systems reviewed & are unremarkable except as noted in HPI and below Patient History Medical History Acute CVA (cerebrovascular accident) Alcohol intoxication Closed hip fracture COVID DKA (diabetic ketoacidoses) DKA (diabetic ketoacidosis) Fibromyalgia Gastroesophageal reflux disease Insulin dependent diabetes mellitus Lupus Osteoporosis Surgical History History of hip surgery Family History Mother Diabetes mellitus Congestive heart failure Pancreatic cancer Father Diabetes mellitus Brother Diabetes mellitus Pancreatitis Sister Drug overdose Social History household members: family Smoking Status: Former smoker alcohol intake: current Smoking Status: Former smoker alcohol intake frequency: holidays/special occasions only Substance Use Type: marijuana Exam Narrative Exam Narrative: GENERAL: in no distress, not toxic not dyspneic HEAD: Normocephalic. EYES: Pupils equal round No scleral icterus. ENT: Mucous membranes moist. NECK: Trachea midline. CARDIOVASCULAR: Regular rate and rhythm without murmurs RESPIRATORY: Clear to auscultation. Breath sounds equal bilaterally. No wheezes, rales, or rhonchi. GASTROINTESTINAL: Abdomen soft, non-tender EXTREMITIES: No gross deformities. BACK: No flank tenderness. NEURO: AOx4. 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 Negative pronator drift. Unsteady on standing with unsteady Romberg. [id number] intact bilaterally SKIN: Warm and dry PSYCH: Not anxious, is cooperative Initial Vital Signs Initial Vital Signs: Vital Signs Temperature 97.6 F 03/17/22 20:55 Pulse Rate 103 H 03/17/22 20:55 Respiratory Rate 18 03/17/22 20:55 Blood Pressure 109/72 03/17/22 20:55 Pulse Oximetry 97 03/17/22 20:55 Oxygen Delivery Method 03/17/22 20:55 Course Course Course Narrative: No new issues during course of stay Orders Ordered: ED Orders 03/17/22 23:45 Complete Blood Count AUTO DIFF Stat Comprehensive Metabolic Panel Stat 03/18/22 00:50 Prothrombin Time INR Stat Troponin I Stat 03/18/22 00:52 EKG-12 Lead Routine 03/18/22 03:00 CT angio head and neck Stat 03/18/22 05:30 Urine Culture Stat Urine Microscopic Stat Discontinued Medications Sodium Chloride (Normal Saline 0.9%) 1,000 mls @ 1,000 mls/hr IV BOLUS ONE Stop: 03/18/22 00:42 Last Infusion: 03/18/22 05:08 Dose: 0 mls/hr Documented By: Admin: 03/18/22 03:59 Dose: 1,000 mls/hr Documented By: KATARINA Sodium Chloride (Normal Saline 0.9%) 1,000 mls @ 1,000 mls/hr IV BOLUS ONE Stop: 03/18/22 03:59 Last Admin: 03/18/22 04:18 Dose: Not Given Documented By: KATARINA Sodium Chloride (Normal Saline 0.9%) 1,000 mls @ 1,000 mls/hr IV BOLUS ONE Stop: 03/18/22 06:44 Last Admin: 03/18/22 05:48 Dose: 1,000 mls/hr Documented By: KATARINA Ondansetron HCl (Ondansetron 4 Mg/2 Ml Inj) 4 mg IV NOW ONE Stop: 03/18/22 03:03 Last Admin: 03/18/22 03:59 Dose: 4 mg Documented By: KATARINA Reevaluation(s) Reevaluation #1: Patient feels much better after IV fluids. Reviewed results with patient. Return precautions reviewed with her. UTI likely causing her symptoms. Patient has not had her antibiotics long enough to treat her UTI. Patient with similar symptoms in the past with UTIs Vital Signs Vital signs: Vital Signs - 8 hr 03/18/22 00:32 03/18/22 05:38 Pulse Rate 107 H 94 H Respiratory Rate 18 Blood Pressure 101/67 111/76 Pulse Oximetry 100 99 Oxygen Delivery Method Room Air Room Air MDM - Dizziness Differential Diagnosis Differential diagnosis: Likely benign paroxysmal positional vertigo, vertebral basilar insufficiency, cerebrovascular accident, acute vestibular neuronitis, transient cerebral ischemia and other (UTI) Lab Data Result diagrams: 03/18/22 00:50 03/18/22 00:50 Labs: Lab Results 03/18/22 03/18/22 03/18/22 Range/Units 00:50 00:50 00:50 WBC 13.5 H (4.5-11.0) X10^3/uL RBC 3.36 L (4.0-5.2) X10^6/uL Hgb 9.0 L (12.0-16.0) g/dL Hct 28.5 L (36-46) % MCV 84.8 (80-100) fL MCH 26.7 (26-34) PG MCHC 31.5 (30-36) % RDW 17.3 H (11.6-14.8) % Plt Count 468 H (150-400) X10^3/uL Neut % (Auto) 76.8 H (50-75) % Lymph % (Auto) 15.9 L (25-40) % [place] % (Auto) 4.9 (3-14) % Eos % (Auto) 1.8 L (2-4) % Baso % (Auto) 0.6 (0-2) % Neut # (Auto) 40426 H (2140-0959) /uL Lymph # (Auto) 2100 (5007-5196) /uL [place] # (Auto) 700 (0-900) /uL Eos # (Auto) 200 (0-450) /uL Baso # (Auto) 100 (0-100) /uL PT 9.7 L (10.1-12.7) SECONDS INR 0.9 (0.9-1.3) Sodium 126 L (137-145) mmol/L Potassium 4.3 (3.4-5.1) mmol/L Chloride 95 L (98-107) mmol/L Carbon Dioxide 18 L (22-32) mmol/L BUN 20 H (7-17) mg/dL Creatinine 0.85 (0.52-1.04) mg/dL Estimated GFR > 60 (>60) mL/min BUN/Creatinine Ratio 23.5 H (6-22) Glucose 358 H (70-100) mg/dL Calcium 8.1 L (8.4-10.2) mg/dL Total Bilirubin 0.5 (0.2-1.3) mg/dL AST 37 H (14-36) IU/L ALT 21 (<35) IU/L Alkaline Phosphatase 132 H (38-126) U/L Troponin I (0.01-0.034) ng/mL Total Protein 7.7 (6.3-8.2) g/dL Albumin 4.1 (3.5-5.0) g/dL Globulin 3.6 (1.7-4.1) g/dL Albumin/Globulin Ratio 1.1 (1.0-2.8) Urine Color Urine Appearance Urine pH Ur Specific [place] Urine Protein Urine Glucose (UA) Urine Ketones Urine Occult Blood Urine Nitrate Urine Bilirubin Urine Urobilinogen Ur Leukocyte Esterase Urine RBC (0-5/HPF) Urine WBC (0-5/HPF) Ur Squamous Epith Cells (0-5/HPF) Ur Transition Epith Cell Ur Renal Epithelial Cell Calcium Oxalate Crystal Uric Acid Crystals Triple Phos Crystals Other Crystals Amorphous Sediment Urine Bacteria (None) Hyaline Casts Granular Casts RBC Casts WBC Casts Other Casts Urine Mucus Urine Trichomonas Urine Yeast Urine Sperm Ur Culture Indicated? Micro UA Comment 03/18/22 03/18/22 03/18/22 Range/Units 00:50 05:30 05:30 WBC (4.5-11.0) X10^3/uL RBC (4.0-5.2) X10^6/uL Hgb (12.0-16.0) g/dL Hct (36-46) % MCV (80-100) fL MCH (26-34) PG MCHC (30-36) % RDW (11.6-14.8) % Plt Count (150-400) X10^3/uL Neut % (Auto) (50-75) % Lymph % (Auto) (25-40) % [place] % (Auto) (3-14) % Eos % (Auto) (2-4) % Baso % (Auto) (0-2) % Neut # (Auto) (4579-8561) /uL Lymph # (Auto) (0510-6962) /uL [place] # (Auto) (0-900) /uL Eos # (Auto) (0-450) /uL Baso # (Auto) (0-100) /uL PT (10.1-12.7) SECONDS INR (0.9-1.3) Sodium (137-145) mmol/L Potassium (3.4-5.1) mmol/L Chloride (98-107) mmol/L Carbon Dioxide (22-32) mmol/L BUN (7-17) mg/dL Creatinine (0.52-1.04) mg/dL Estimated GFR (>60) mL/min BUN/Creatinine Ratio (6-22) Glucose (70-100) mg/dL Calcium (8.4-10.2) mg/dL Total Bilirubin (0.2-1.3) mg/dL AST (14-36) IU/L ALT (<35) IU/L Alkaline Phosphatase (38-126) U/L Troponin I < 0.012 (0.01-0.034) ng/mL Total Protein (6.3-8.2) g/dL Albumin (3.5-5.0) g/dL Globulin (1.7-4.1) g/dL Albumin/Globulin Ratio (1.0-2.8) Urine Color Cancelled Urine Appearance Cancelled Urine pH Cancelled Ur Specific [place] Cancelled Urine Protein Cancelled Urine Glucose (UA) Cancelled Urine Ketones Cancelled Urine Occult Blood Cancelled Urine Nitrate Cancelled Urine Bilirubin Cancelled Urine Urobilinogen Cancelled Ur Leukocyte Esterase Cancelled Urine RBC 1-5/hpf Cancelled (0-5/HPF) Urine WBC >100/hpf H Cancelled (0-5/HPF) Ur Squamous Epith Cells 1-5 /hpf Cancelled (0-5/HPF) Ur Transition Epith Cell Cancelled Ur Renal Epithelial Cell Cancelled Calcium Oxalate Crystal Cancelled Uric Acid Crystals Cancelled Triple Phos Crystals Cancelled Other Crystals Cancelled Amorphous Sediment Cancelled Urine Bacteria Moderate (10-30) H Cancelled (None) Hyaline Casts Cancelled Granular Casts Cancelled RBC Casts Cancelled WBC Casts Cancelled Other Casts Cancelled Urine Mucus Cancelled Urine Trichomonas Cancelled Urine Yeast Cancelled Urine Sperm Cancelled Ur Culture Indicated? Culture not indicate Cancelled Micro UA Comment Cancelled Urine Dip Bedside Urine Glucose 1000 mg/dl Bedside Urine Bilirubin - Negative Bedside Urine Ketone - Negative Urine Specific [place] 1.010 Bedside Urine Occult Blood ++ Bedside Urine pH 6.0 Bedside Urine Protein + 30 Bedside Urine Urobilinogen - Negative Bedside Urine Nitrite - Negative Bedside Urine Leukocytes ++ [address] scan - head: Radiologist's Impression: No acute intracranial abnormality. No evidence of aneurysm, AVM, or significant vascular occlusive disease ECG Data Interpretation: Sinus tachycardia rate [address] elevation or depression MDM Narrative Medical decision making narrative: Appropriate for discharge home. Exam reassuring. As well as imaging. Laboratory studies reviewed, white count likely due to UTI please see urinalysis. Sodium slightly low but corrected for high glucose. Glucose likely reacting to urinary tract infection. Patient has had similar symptoms with UTIs in the past. Feeling much better after IV fluids. Return precautions reviewed with patient. She desires discharge home. Discharge Plan Departure Patient Disposition: Home Clinical Impression: Urinary tract infection Instructions: DI for Urinary Tract Infection (UTI) Activity Restrictions/Additional Instructions: Keep well hydrated. See family doctor within a week for recheck of your urinary tract infection as well as your blood work/sodium and glucose. Continue home medications and be sure to complete your antibiotics Prescriptions: No Action insulin aspart U-100 [Novolog Flexpen U-100 Insulin] 100 unit/mL Insulin Pen 0 unit Sub-Q AC Qty: 3 0RF Rx Instructions: 1-3 UNITS TID buspirone 10 mg Tablet 2 tab PO TID cyclobenzaprine 10 mg Tablet 10 mg PO TID PRN (Reason: pain) insulin glargine 100 unit/mL (3 mL) insulin pen 10 unit SUBCUT DAILY Qty: 0 0RF (DME) Test N'Go Test Strip See Rx Instructions .Route Qty: 50 0RF Rx Instructions: As directed ondansetron HCl 4 mg tablet 4 mg PO TID Label Comments: TAKE 1 TABLET BY MOUTH THREE TIMES DAILY gabapentin 800 mg Tablet 800 mg PO TID lisinopril 10 mg Tablet 10 mg PO DAILY Creon 24,000-76,000 -120,000 unit Capsule,Delayed Release(Dr/Ec) See Rx Instructions .ROUTE .COMPLEX Rx Instructions: patient says they take 800un TID, 2400un total acetaminophen 325 mg Tablet 650 mg PO Q6HR PRN (Reason: Headache) Qty: 60 0RF melatonin 3 mg Tablet 3 mg PO BEDTIME Qty: 30 0RF hydromorphone 2 mg Tablet 2 mg PO Q4HR PRN (Reason: Pain, Severe (7-10)) Qty: 30 0RF gabapentin [Neurontin] 300 mg Capsule 900 mg PO TID Qty: 90 0RF pseudoephedrine HCl 30 mg Tablet 30 mg PO Q6HR PRN (Reason: Congestion/ sinus headache) Qty: 30 0RF loratadine 10 mg Tablet 10 mg PO DAILY Qty: 30 0RF Dificid 200 mg Tablet 200 mg PO BID Qty: 14 0RF Referrals: Jhonny Evans PA-C [Primary Care Provider] -
[2022-03-18 03:09] LABS: INR 0.9 (0.9-1.3); Prothrombin Time 9.7 SECONDS (10.1-12.7)
[2022-03-18 03:25] LABS: Troponin I < 0.012 ng/mL (0.01-0.034)
[2022-03-18] MEDS: SODIUM CHLORIDE 0.9% 1,000 ML 1000 ML IV ×2 (03:59→05:48)
[2022-03-18] MEDS: ONDANSETRON 4 MG/2 ML INJ IV (03:59)
[2022-03-18 05:38] VITALS: BP 111/76; PULSE 94; RESP 18; O2SAT 99
[2022-03-18 06:03] LABS: RBC Urine 1-5/HPF (0-5/HPF); Squamous Epithelial Cell Urine 1-5 /HPF (0-5/HPF); WBC Urine >100/HPF (0-5/HPF)
[2022-03-18 06:04] LABS: Bacteria Urine Moderate (10-30)
[2022-03-18 07:10] VITALS: BP 109/75; PULSE 99; RESP 18; O2SAT 99
== END 2022-03-18 07:12 | disposition home or self-care (01) ==
PROVIDERS: Emergency Provider Emergency Medicine; PCP Physician Assistant
DX: N39.0 Urinary tract infection, site not specified (principal); R51.9 Headache, unspecified; H53.8 Other visual disturbances; R79.89 Other specified abnormal findings of blood chemistry
CPT/HCPCS: 36415; 70496; 70498; 80053; 81003; 81015; 84484; 85025; 85610; 87077; 87086; 87186; 93005; 93010; 96361; 96374; 99284; J2405; Q9967

== ENCOUNTER 2022-03-23 15:05 | Inpatient (IN) | payer MEDICAID, OTHER, SELFPAY ==
[2022-02-12 05:26] VITALS: BMI 21.4
[2022-03-23] VITALS (14 sets, daily range): BP systolic 77–115; BP diastolic 50–76; PULSE 85–103; RESP 16–35; TEMP 36.7; O2SAT 96–100; BMI 19.5
--- NOTE | 2022-03-23 15:00 | ED.DIZZY ---
HPI - Dizziness <Amada Savage, DO - Last Filed: 03/25/22 13:19> General Chief Complaint: Weakness Stated Complaint: Hypotensive & Hyperglycemia Time Seen by Provider: 03/23/22 15:11 History of Present Illness HPI Narrative: Patient is a 46-year-old female history of insulin-dependent diabetes presents today with dizziness lightheadedness and hypotension. She states that she has not felt really great for the last 4 days. She has not taken her insulin for the last 2 days. She denies any significant abdominal pain nausea or vomiting. She was admitted February 12 through February 19 for hypotension UTI. She was seen again on March 18 again for a UTI. Both time she was placed on Keflex. Both time she grew E coli which were pansensitive. He currently has a bottle of Keflex prescribed from the ED on February 02. She says sometimes she is taking her Keflex sometime she has not. She seems to be noncompliant. Because complaint today she is dizzy when she stands up. She is currently afebrile. No significant chest pain shortness of breath or other symptoms. She denies any dizziness lightheadedness numbness tingling or weakness. EMS reports positive orthostatics. Related Data Home Medications Medication Instructions Recorded Confirmed buspirone 10 mg tablet 2 tab PO TID 12/08/18 03/23/22 cyclobenzaprine 10 mg tablet 10 mg PO TID PRN pain 12/08/18 03/23/22 gabapentin 800 mg tablet 800 mg PO TID 02/14/22 03/23/22 [id number] See Rx Instructions .Route .COMPLEX 02/14/22 03/23/22 24,000-76,000-120,000 unit capsule,delayed rel (Creon) lisinopril 10 mg tablet 10 mg PO DAILY 02/14/22 03/23/22 ondansetron HCl 4 mg tablet 4 mg PO TID 02/14/22 03/23/22 cephalexin 500 mg capsule 2 cap PO BID 03/23/22 03/23/22 Previous Rx's Medication Instructions Recorded insulin aspart U-100 100 unit/mL 0 unit (0 mL) SUBCUT AC #3 units 02/12/18 (3 mL) subcutaneous pen (Novolog Flexpen U-100 Insulin aspart) blood sugar diagnostic (Test N'Go #50 ea 11/30/21 Test strips) insulin glargine 100 unit/mL (3 10 unit (0.1 mL) SUBCUT DAILY #0 mL 12/09/21 mL) subcutaneous pen acetaminophen 325 mg tablet 650 mg PO Q6HR PRN Headache #60 02/19/22 tabs gabapentin 300 mg capsule 900 mg PO TID #90 caps 02/19/22 (Neurontin) hydromorphone 2 mg tablet 2 mg PO Q4HR PRN Pain, Severe 02/19/22 (7-10) #30 tabs loratadine 10 mg tablet 10 mg PO DAILY #30 tabs 02/19/22 melatonin 3 mg tablet 3 mg PO BEDTIME #30 tabs 02/19/22 pseudoephedrine HCl 30 mg tablet 30 mg PO Q6HR PRN Congestion/ 02/19/22 sinus headache #30 tabs levofloxacin 750 mg tablet 750 mg PO DAILY 7 days #7 tabs 03/23/22 Allergies Allergy/AdvReac Type Severity Reaction Status Date / Time amitriptyline Allergy Intermediate Verified 10/08/21 19:53 sulfasalazine [SULFASALAZINE] Allergy Mild PANCREATITI Verified 10/08/21 19:53 S trazodone AdvReac Intermediate HEART Verified 10/08/21 19:53 PALPITATIONS Review of Systems <Amada Savage DO - Last Filed: 03/25/22 13:19> Review of Systems Narrative: GENERAL: Denies chills, fatigue, malaise, fever, sweats, travel HEENT: Denies sinus pain, ear pain, sore throat, difficulty swallowing, neck pain RESPIRATORY: Denies dyspnea, cough, wheezing, hemoptysis, sputum. CARDIOVASCULAR: Denies chest pain, palpitations, orthopnea, edema GASTROINTESTINAL: Denies nausea, vomiting, abdominal pain, diarrhea, constipation, melena. : See HPI MUSCULOSKELETAL: Denies weakness, joint pain, or bony pain SKIN: No rash, no erythema, no pruritus NEUROLOGIC: See HPI PSYCHIATRIC: No concerning psychosocial issues. 12 point review of systems is negative except for those stated above and HPI Patient History <Amada Savage DO - Last Filed: 03/25/22 13:19> Medical History Acute CVA (cerebrovascular accident) Alcohol intoxication Closed hip fracture COVID DKA (diabetic ketoacidoses) DKA (diabetic ketoacidosis) Fibromyalgia Gastroesophageal reflux disease Insulin dependent diabetes mellitus Lupus Osteoporosis Surgical History History of hip surgery Presence of pancreatic duct stent Family History Mother Diabetes mellitus Congestive heart failure Pancreatic cancer Father Diabetes mellitus Brother Diabetes mellitus Pancreatitis Sister Drug overdose Social History household members: family Smoking Status: Former smoker alcohol intake: current Exam <Amada Savage DO - Last Filed: 03/25/22 13:19> Initial Vital Signs Initial Vital Signs: Vital Signs Pulse Rate 97 H 03/23/22 15:09 Respiratory Rate 19 03/23/22 15:09 Blood Pressure 112/73 03/23/22 15:09 Pulse Oximetry 100 03/23/22 15:09 Oxygen Delivery Method 03/23/22 15:09 GENERAL: Alert pleasant thin 46-year-old female and in no acute distress. HEENT: Head atraumatic,EOMI, pupils reactive, face symmetric, moist mucous membranes CARDIOVASCULAR: Regular rate and rhythm without murmurs, rubs or gallops. RESPIRATORY: Breath sounds equal bilaterally, no wheezes rales or rhonchi. ABDOMEN: Soft, nontender. Normoactive bowel sounds all 4 quadrants. No guarding or rebound. EXTREMITIES: Normal range of motion, no clubbing or edema. Neurovascularly intact NEUROLOGICAL: Alert and oriented x4.Normal gait and speech. Cranial nerves II through XII grossly intact. Good [id number], good [id number], strength equal bilaterally, no dysarthria or aphasia, sensation in tact to soft touch bilaterally, no visual changes, no facial droop SKIN: Warm, dry, no laceration, no petechiae, no rashes or lesions. <Stephane Borden DO - Last Filed: 03/24/22 00:37> Initial Vital Signs Initial Vital Signs: Vital Signs Pulse Rate 97 H 03/23/22 15:09 Respiratory Rate 19 03/23/22 15:09 Blood Pressure 112/73 03/23/22 15:09 Pulse Oximetry 100 03/23/22 15:09 Oxygen Delivery Method 03/23/22 15:09 Scores <Amada Savage DO - Last Filed: 03/25/22 13:19> NIH Stroke Scale Level of Conciousness: Alert, keenly responsive Ask month/age: Answers both questions correctly. Open/close eyes, close hand: Performs both tasks correctly Best gaze horizontal: Normal Visual baxter: No visual loss Facial palsy: Normal symetrical movement Left arm drift: No drift for full 10 sec Right arm drift: No drift for full 10 sec Left leg drift: No drift for full 5 sec Right leg drift: No drift for full 5 sec Limb ataxia: Absent Sensory on face/arms/legs: Normal, no sensory loss Best language: No aphasia, normal Dysarthria: Normal Extinction or inattention: No abnormality Total NIH Stroke scale score: 0 <Stephane Borden DO - Last Filed: 03/24/22 00:37> NIH Stroke Scale Total NIH Stroke scale score: 0 Course <Amada Savage DO - Last Filed: 03/25/22 13:19> Orders Ordered: Acetaminophen (Acetaminophen 325 Mg Tablet) 975 mg PO Q8H PRN PRN Reason: Fever/Mild Pain (1-3) Last Admin: 03/25/22 05:06 Dose: 975 mg Documented By: KOBE Dextrose (Dextrose 50 % In Water 25 Gm/50 Ml Syringe) 25 gm IV PRN PRN PRN Reason: Hypoglycemia Enoxaparin Sodium (Enoxaparin 40 Mg/0.4 Ml Syringe) 40 mg SUBCUT DAILY [facility] Last Admin: 03/25/22 09:10 Dose: 40 mg Documented By: Admin: 03/24/22 08:21 Dose: 40 mg Documented By: JUDITH Fluticasone Propionate (Fluticasone 120 Ki[place]/16 Gm Kihei.Susp) 1 spray NASAL BID [facility] Last Admin: 03/25/22 08:47 Dose: 1 spray Documented By: Admin: 03/24/22 21:20 Dose: Not Given Documented By: Admin: 03/24/22 09:38 Dose: 1 spray Documented By: JUDITH Sodium Chloride (Normal Saline 0.9%) 1,000 mls @ 150 mls/hr IV CONT [facility] Last Admin: 03/25/22 10:03 Dose: 150 mls/hr Documented By: Infusion: 03/25/22 09:28 Dose: 150 mls/hr Documented By: Admin: 03/25/22 02:47 Dose: 150 mls/hr Documented By: Infusion: 03/25/22 02:20 Dose: 150 mls/hr Documented By: Admin: 03/24/22 19:39 Dose: 150 mls/hr Documented By: Infusion: 03/24/22 19:39 Dose: 150 mls/hr Documented By: Admin: 03/24/22 13:25 Dose: 150 mls/hr Documented By: Infusion: 03/24/22 13:14 Dose: 150 mls/hr Documented By: Admin: 03/24/22 06:33 Dose: 150 mls/hr Documented By: Infusion: 03/24/22 06:13 Dose: 150 mls/hr Documented By: Admin: 03/23/22 23:32 Dose: 150 mls/hr Documented By: MONICA Insulin Glargine (Insulin Glargine 100 Unit/Ml 3ml Pen) 5 unit SUBCUT DAILY [facility] Last Admin: 03/25/22 08:46 Dose: 5 unit Documented By: LIBBY Co-signed By: Admin: 03/24/22 09:06 Dose: 5 unit Documented By: JUDITH Co-signed By: RICHY Insulin Glargine (Insulin Glargine 100 Unit/Ml 3ml Pen) 10 unit SUBCUT 2100 [facility] Last Admin: 03/24/22 21:40 Dose: 10 unit Documented By: KOBE Co-signed By: FELIX Insulin Human Lispro (Insulin Lispro 100 Unit/Ml 3ml Vial) 0 unit SUBCUT ACHS [facility]; Protocol Last Admin: 03/25/22 12:07 Dose: 1 unit Documented By: LIBBY Co-signed By: Admin: 03/25/22 08:43 Dose: Not Given Documented By: Admin: 03/24/22 21:19 Dose: Not Given Documented By: Admin: 03/24/22 17:35 Dose: 1 unit Documented By: JUDITH Co-signed By: RICHY Admin: 03/24/22 13:25 Dose: 1 unit Documented By: JUDITH Co-signed By: RICHY Admin: 03/24/22 09:05 Dose: 3 unit Documented By: JUDITH Co-signed By: RICHY Metoclopramide HCl (Metoclopramide Hcl 5 Mg Tablet) 5 mg PO AC JO[facility] ANTONIO Last Admin: 03/25/22 12:06 Dose: 5 mg Documented By: Admin: 03/25/22 09:10 Dose: 5 mg Documented By: LIBBY Morphine Sulfate (Morphine 2 Mg/Ml Inj) 2 mg IV Q4H PRN PRN Reason: SEVERE PAIN (7-10) Last Admin: 03/25/22 09:11 Dose: 2 mg Documented By: Admin: 03/25/22 02:47 Dose: 2 mg Documented By: Admin: 03/24/22 22:21 Dose: 2 mg Documented By: Admin: 03/24/22 18:03 Dose: 2 mg Documented By: Admin: 03/24/22 11:14 Dose: 2 mg Documented By: JUDITH Ondansetron HCl (Ondansetron 4 Mg/2 Ml Inj) 4 mg IV Q6HR PRN PRN Reason: Nausea And Vomiting Last Admin: 03/24/22 20:25 Dose: 4 mg Documented By: Admin: 03/24/22 11:14 Dose: 4 mg Documented By: JUDITH Tramadol HCl (Tramadol 50 Mg Tablet) 50 mg PO Q6H PRN PRN Reason: MODERATE PAIN (4-6) Last Admin: 03/25/22 06:22 Dose: 50 mg Documented By: Admin: 03/24/22 15:37 Dose: 50 mg Documented By: Admin: 03/24/22 09:12 Dose: 50 mg Documented By: Admin: 03/24/22 03:40 Dose: 50 mg Documented By: MONICA Discontinued Medications Acetaminophen (Acetaminophen 325 Mg Tablet) 650 mg PO Q6HR PRN PRN Reason: Fever/Mild Pain (1-3) Last Admin: 03/24/22 06:38 Dose: 650 mg Documented By: Admin: 03/24/22 00:46 Dose: 650 mg Documented By: MONICA Sodium Chloride (Normal Saline 0.9%) 1,000 mls @ 1,000 mls/hr IV BOLUS ONE Stop: 03/23/22 17:26 Last Infusion: 03/23/22 18:22 Dose: 0 mls/hr Documented By: Admin: 03/23/22 16:43 Dose: 1,000 mls/hr Documented By: GINETTE Piperacillin Sod/Tazobactam (Sod 4.5 gm/ Sodium Chloride) 100 mls @ 200 mls/hr IV NOW ONE Stop: 03/23/22 16:28 Last Infusion: 03/23/22 17:27 Dose: 0 mls/hr Documented By: Admin: 03/23/22 16:51 Dose: 200 mls/hr Documented By: GINETTE Sodium Chloride (Normal Saline 0.9%) 1,000 mls @ 1,000 mls/hr IV BOLUS ONE Stop: 03/23/22 20:58 Last Infusion: 03/23/22 21:29 Dose: 0 mls/hr Documented By: Admin: 03/23/22 20:00 Dose: 1,000 mls/hr Documented By: KATARINA Ceftriaxone Sodium 2,000 mg/ (Sodium Chloride) 100 mls @ 200 mls/hr IV NOW ONE Stop: 03/23/22 22:56 Last Infusion: 03/24/22 00:01 Dose: 0 mls/hr Documented By: Admin: 03/23/22 23:31 Dose: 200 mls/hr Documented By: MONICA Ceftriaxone Sodium 1,000 mg/ (Sodium Chloride) 100 mls @ 200 mls/hr IV DAILY JOSE ANTONIO Last Infusion: 03/25/22 10:07 Dose: 0 mls/hr Documented By: Admin: 03/25/22 09:10 Dose: 200 mls/hr Documented By: Infusion: 03/24/22 23:07 Dose: 0 mls/hr Documented By: Admin: 03/24/22 20:24 Dose: 200 mls/hr Documented By: KOBE Insulin Glargine (Insulin Glargine 100 Unit/Ml 3ml Pen) 5 unit SUBCUT 2100 [facility] Insulin Human Regular (Insulin Regular 100 Unit/Ml 3 Ml Vial) 5 unit IV NOW ONE Stop: 03/23/22 16:28 Last Admin: 03/23/22 16:45 Dose: 5 unit Documented By: GINETTE Co-signed By: PAZ Ketorolac Tromethamine (Ketorolac 30 Mg/Ml Vial) 15 mg IV NOW ONE Stop: 03/23/22 20:21 Last Admin: 03/23/22 20:25 Dose: 15 mg Documented By: KATARINA Magnesium Chloride (Magnesium Chloride 64 Mg Tablet) 128 mg PO NOW ONE Stop: 03/25/22 09:16 Last Admin: 03/25/22 10:04 Dose: 128 mg Documented By: LIBBY Morphine Sulfate (Morphine 2 Mg/Ml Inj) 2 mg IV NOW ONE Stop: 03/23/22 16:29 Last Admin: 03/23/22 16:44 Dose: 2 mg Documented By: GINETTE Ondansetron HCl (Ondansetron 4 Mg/2 Ml Inj) 4 mg IV NOW ONE Stop: 03/23/22 16:29 Last Admin: 03/23/22 16:44 Dose: 4 mg Documented By: GINETTE Vital Signs Vital signs: Vital Signs - 8 hr 03/23/22 17:35 03/23/22 18:00 03/23/22 18:00 Pulse Rate 100 H 96 H Pulse Rate [Orthostatic Lying] Pulse Rate [Orthostatic Sitting] Pulse Rate [Orthostatic Standing] Respiratory Rate 24 19 Blood Pressure 102/66 Blood Pressure [Orthostatic Lying] Blood Pressure [Orthostatic Sitting] Blood Pressure [Orthostatic Standing] Pulse Oximetry 100 100 03/23/22 18:30 03/23/22 18:30 03/23/22 19:57 Pulse Rate 93 H Pulse Rate [Orthostatic Lying] 93 H Pulse Rate [Orthostatic Sitting] 94 H Pulse Rate [Orthostatic Standing] 97 H Respiratory Rate 22 Blood Pressure 103/65 Blood Pressure [Orthostatic Lying] 115/74 Blood Pressure [Orthostatic Sitting] 91/67 Blood Pressure [Orthostatic Standing] 77/50 L Pulse Oximetry 99 03/23/22 19:00 03/23/22 19:00 03/23/22 19:30 Pulse Rate 91 H Pulse Rate [Orthostatic Lying] Pulse Rate [Orthostatic Sitting] Pulse Rate [Orthostatic Standing] Respiratory Rate 31 H Blood Pressure 105/69 106/75 Blood Pressure [Orthostatic Lying] Blood Pressure [Orthostatic Sitting] Blood Pressure [Orthostatic Standing] Pulse Oximetry 99 03/23/22 19:30 03/23/22 19:52 03/23/22 19:52 Pulse Rate 94 H 94 H Pulse Rate [Orthostatic Lying] Pulse Rate [Orthostatic Sitting] Pulse Rate [Orthostatic Standing] Respiratory Rate 19 29 H Blood Pressure 115/74 Blood Pressure [Orthostatic Lying] Blood Pressure [Orthostatic Sitting] Blood Pressure [Orthostatic Standing] Pulse Oximetry 99 03/23/22 19:53 03/23/22 19:53 03/23/22 19:54 Pulse Rate 96 H 103 H Pulse Rate [Orthostatic Lying] Pulse Rate [Orthostatic Sitting] Pulse Rate [Orthostatic Standing] Respiratory Rate 19 22 Blood Pressure 91/61 Blood Pressure [Orthostatic Lying] Blood Pressure [Orthostatic Sitting] Blood Pressure [Orthostatic Standing] Pulse Oximetry 03/23/22 19:54 03/23/22 20:00 03/23/22 20:00 Pulse Rate 91 H Pulse Rate [Orthostatic Lying] Pulse Rate [Orthostatic Sitting] Pulse Rate [Orthostatic Standing] Respiratory Rate 20 Blood Pressure 77/50 L 106/67 Blood Pressure [Orthostatic Lying] Blood Pressure [Orthostatic Sitting] Blood Pressure [Orthostatic Standing] Pulse Oximetry 03/23/22 20:30 03/23/22 20:30 03/23/22 21:00 Pulse Rate 85 Pulse Rate [Orthostatic Lying] Pulse Rate [Orthostatic Sitting] Pulse Rate [Orthostatic Standing] Respiratory Rate 20 Blood Pressure 113/76 110/73 Blood Pressure [Orthostatic Lying] Blood Pressure [Orthostatic Sitting] Blood Pressure [Orthostatic Standing] Pulse Oximetry 03/23/22 21:00 Pulse Rate 90 Pulse Rate [Orthostatic Lying] Pulse Rate [Orthostatic Sitting] Pulse Rate [Orthostatic Standing] Respiratory Rate 35 H Blood Pressure Blood Pressure [Orthostatic Lying] Blood Pressure [Orthostatic Sitting] Blood Pressure [Orthostatic Standing] Pulse Oximetry <Stephane Borden, - Last Filed: 03/24/22 00:37> Orders Ordered: Acetaminophen (Acetaminophen 325 Mg Tablet) 975 mg PO Q8H PRN PRN Reason: Fever/Mild Pain (1-3) Last Admin: 03/25/22 05:06 Dose: 975 mg Documented By: KOBE Dextrose (Dextrose 50 % In Water 25 Gm/50 Ml Syringe) 25 gm IV PRN PRN PRN Reason: Hypoglycemia Enoxaparin Sodium (Enoxaparin 40 Mg/0.4 Ml Syringe) 40 mg SUBCUT DAILY [facility] Last Admin: 03/25/22 09:10 Dose: 40 mg Documented By: Admin: 03/24/22 08:21 Dose: 40 mg Documented By: JUDITH Fluticasone Propionate (Fluticasone 120 Ki[place]/16 Gm Kihei.Susp) 1 spray NASAL BID [facility] Last Admin: 03/25/22 08:47 Dose: 1 spray Documented By: Admin: 03/24/22 21:20 Dose: Not Given Documented By: Admin: 03/24/22 09:38 Dose: 1 spray Documented By: JUDITH Sodium Chloride (Normal Saline 0.9%) 1,000 mls @ 150 mls/hr IV CONT [facility] Last Admin: 03/25/22 10:03 Dose: 150 mls/hr Documented By: Infusion: 03/25/22 09:28 Dose: 150 mls/hr Documented By: Admin: 03/25/22 02:47 Dose: 150 mls/hr Documented By: Infusion: 03/25/22 02:20 Dose: 150 mls/hr Documented By: Admin: 03/24/22 19:39 Dose: 150 mls/hr Documented By: Infusion: 03/24/22 19:39 Dose: 150 mls/hr Documented By: Admin: 03/24/22 13:25 Dose: 150 mls/hr Documented By: Infusion: 03/24/22 13:14 Dose: 150 mls/hr Documented By: Admin: 03/24/22 06:33 Dose: 150 mls/hr Documented By: Infusion: 03/24/22 06:13 Dose: 150 mls/hr Documented By: Admin: 03/23/22 23:32 Dose: 150 mls/hr Documented By: MONICA Insulin Glargine (Insulin Glargine 100 Unit/Ml 3ml Pen) 5 unit SUBCUT DAILY [facility] Last Admin: 03/25/22 08:46 Dose: 5 unit Documented By: LIBBY Co-signed By: Admin: 03/24/22 09:06 Dose: 5 unit Documented By: JUDITH Co-signed By: RICHY Insulin Glargine (Insulin Glargine 100 Unit/Ml 3ml Pen) 10 unit SUBCUT 2100 [facility] Last Admin: 03/24/22 21:40 Dose: 10 unit Documented By: KOBE Co-signed By: FELIX Insulin Human Lispro (Insulin Lispro 100 Unit/Ml 3ml Vial) 0 unit SUBCUT ACHS [facility]; Protocol Last Admin: 03/25/22 12:07 Dose: 1 unit Documented By: LIBBY Co-signed By: Admin: 03/25/22 08:43 Dose: Not Given Documented By: Admin: 03/24/22 21:19 Dose: Not Given Documented By: Admin: 03/24/22 17:35 Dose: 1 unit Documented By: JUDITH Co-signed By: RICHY Admin: 03/24/22 13:25 Dose: 1 unit Documented By: JUDITH Co-signed By: RICHY Admin: 03/24/22 09:05 Dose: 3 unit Documented By: JUDITH Co-signed By: RICHY Metoclopramide HCl (Metoclopramide Hcl 5 Mg Tablet) 5 mg PO AC JOSE ANTONIO Last Admin: 03/25/22 12:06 Dose: 5 mg Documented By: Admin: 03/25/22 09:10 Dose: 5 mg Documented By: LIBBY Morphine Sulfate (Morphine 2 Mg/Ml Inj) 2 mg IV Q4H PRN PRN Reason: SEVERE PAIN (7-10) Last Admin: 03/25/22 09:11 Dose: 2 mg Documented By: Admin: 03/25/22 02:47 Dose: 2 mg Documented By: Admin: 03/24/22 22:21 Dose: 2 mg Documented By: Admin: 03/24/22 18:03 Dose: 2 mg Documented By: Admin: 03/24/22 11:14 Dose: 2 mg Documented By: JUDITH Ondansetron HCl (Ondansetron 4 Mg/2 Ml Inj) 4 mg IV Q6HR PRN PRN Reason: Nausea And Vomiting Last Admin: 03/24/22 20:25 Dose: 4 mg Documented By: Admin: 03/24/22 11:14 Dose: 4 mg Documented By: JUDITH Tramadol HCl (Tramadol 50 Mg Tablet) 50 mg PO Q6H PRN PRN Reason: MODERATE PAIN (4-6) Last Admin: 03/25/22 06:22 Dose: 50 mg Documented By: Admin: 03/24/22 15:37 Dose: 50 mg Documented By: Admin: 03/24/22 09:12 Dose: 50 mg Documented By: Admin: 03/24/22 03:40 Dose: 50 mg Documented By: MONICA Discontinued Medications Acetaminophen (Acetaminophen 325 Mg Tablet) 650 mg PO Q6HR PRN PRN Reason: Fever/Mild Pain (1-3) Last Admin: 03/24/22 06:38 Dose: 650 mg Documented By: Admin: 03/24/22 00:46 Dose: 650 mg Documented By: MONICA Sodium Chloride (Normal Saline 0.9%) 1,000 mls @ 1,000 mls/hr IV BOLUS ONE Stop: 03/23/22 17:26 Last Infusion: 03/23/22 18:22 Dose: 0 mls/hr Documented By: Admin: 03/23/22 16:43 Dose: 1,000 mls/hr Documented By: GINETTE Piperacillin Sod/Tazobactam (Sod 4.5 gm/ Sodium Chloride) 100 mls @ 200 mls/hr IV NOW ONE Stop: 03/23/22 16:28 Last Infusion: 03/23/22 17:27 Dose: 0 mls/hr Documented By: Admin: 03/23/22 16:51 Dose: 200 mls/hr Documented By: GINETTE Sodium Chloride (Normal Saline 0.9%) 1,000 mls @ 1,000 mls/hr IV BOLUS ONE Stop: 03/23/22 20:58 Last Infusion: 03/23/22 21:29 Dose: 0 mls/hr Documented By: Admin: 03/23/22 20:00 Dose: 1,000 mls/hr Documented By: KATARINA Ceftriaxone Sodium 2,000 mg/ (Sodium Chloride) 100 mls @ 200 mls/hr IV NOW ONE Stop: 03/23/22 22:56 Last Infusion: 03/24/22 00:01 Dose: 0 mls/hr Documented By: Admin: 03/23/22 23:31 Dose: 200 mls/hr Documented By: MONICA Ceftriaxone Sodium 1,000 mg/ (Sodium Chloride) 100 mls @ 200 mls/hr IV DAILY [facility] Last Infusion: 03/25/22 10:07 Dose: 0 mls/hr Documented By: Admin: 03/25/22 09:10 Dose: 200 mls/hr Documented By: Infusion: 03/24/22 23:07 Dose: 0 mls/hr Documented By: Admin: 03/24/22 20:24 Dose: 200 mls/hr Documented By: KOBE Insulin Glargine (Insulin Glargine 100 Unit/Ml 3ml Pen) 5 unit SUBCUT 2100 [facility] Insulin Human Regular (Insulin Regular 100 Unit/Ml 3 Ml Vial) 5 unit IV NOW ONE Stop: 03/23/22 16:28 Last Admin: 03/23/22 16:45 Dose: 5 unit Documented By: GINETTE Co-signed By: PAZ Ketorolac Tromethamine (Ketorolac 30 Mg/Ml Vial) 15 mg IV NOW ONE Stop: 03/23/22 20:21 Last Admin: 03/23/22 20:25 Dose: 15 mg Documented By: KATARINA Magnesium Chloride (Magnesium Chloride 64 Mg Tablet) 128 mg PO NOW ONE Stop: 03/25/22 09:16 Last Admin: 03/25/22 10:04 Dose: 128 mg Documented By: LIBBY Morphine Sulfate (Morphine 2 Mg/Ml Inj) 2 mg IV NOW ONE Stop: 03/23/22 16:29 Last Admin: 03/23/22 16:44 Dose: 2 mg Documented By: GINETTE Ondansetron HCl (Ondansetron 4 Mg/2 Ml Inj) 4 mg IV NOW ONE Stop: 03/23/22 16:29 Last Admin: 03/23/22 16:44 Dose: 4 mg Documented By: GINETTE Vital Signs Vital signs: Vital Signs - 8 hr 03/23/22 17:35 03/23/22 18:00 03/23/22 18:00 Pulse Rate 100 H 96 H Pulse Rate [Orthostatic Lying] Pulse Rate [Orthostatic Sitting] Pulse Rate [Orthostatic Standing] Respiratory Rate 24 19 Blood Pressure 102/66 Blood Pressure [Orthostatic Lying] Blood Pressure [Orthostatic Sitting] Blood Pressure [Orthostatic Standing] Pulse Oximetry 100 100 03/23/22 18:30 03/23/22 18:30 03/23/22 19:57 Pulse Rate 93 H Pulse Rate [Orthostatic Lying] 93 H Pulse Rate [Orthostatic Sitting] 94 H Pulse Rate [Orthostatic Standing] 97 H Respiratory Rate 22 Blood Pressure 103/65 Blood Pressure [Orthostatic Lying] 115/74 Blood Pressure [Orthostatic Sitting] 91/67 Blood Pressure [Orthostatic Standing] 77/50 L Pulse Oximetry 99 03/23/22 19:00 03/23/22 19:00 03/23/22 19:30 Pulse Rate 91 H Pulse Rate [Orthostatic Lying] Pulse Rate [Orthostatic Sitting] Pulse Rate [Orthostatic Standing] Respiratory Rate 31 H Blood Pressure 105/69 106/75 Blood Pressure [Orthostatic Lying] Blood Pressure [Orthostatic Sitting] Blood Pressure [Orthostatic Standing] Pulse Oximetry 99 03/23/22 19:30 03/23/22 19:52 03/23/22 19:52 Pulse Rate 94 H 94 H Pulse Rate [Orthostatic Lying] Pulse Rate [Orthostatic Sitting] Pulse Rate [Orthostatic Standing] Respiratory Rate 19 29 H Blood Pressure 115/74 Blood Pressure [Orthostatic Lying] Blood Pressure [Orthostatic Sitting] Blood Pressure [Orthostatic Standing] Pulse Oximetry 99 03/23/22 19:53 03/23/22 19:53 03/23/22 19:54 Pulse Rate 96 H 103 H Pulse Rate [Orthostatic Lying] Pulse Rate [Orthostatic Sitting] Pulse Rate [Orthostatic Standing] Respiratory Rate 19 22 Blood Pressure 91/61 Blood Pressure [Orthostatic Lying] Blood Pressure [Orthostatic Sitting] Blood Pressure [Orthostatic Standing] Pulse Oximetry 03/23/22 19:54 03/23/22 20:00 03/23/22 20:00 Pulse Rate 91 H Pulse Rate [Orthostatic Lying] Pulse Rate [Orthostatic Sitting] Pulse Rate [Orthostatic Standing] Respiratory Rate 20 Blood Pressure 77/50 L 106/67 Blood Pressure [Orthostatic Lying] Blood Pressure [Orthostatic Sitting] Blood Pressure [Orthostatic Standing] Pulse Oximetry 03/23/22 20:30 03/23/22 20:30 03/23/22 21:00 Pulse Rate 85 Pulse Rate [Orthostatic Lying] Pulse Rate [Orthostatic Sitting] Pulse Rate [Orthostatic Standing] Respiratory Rate 20 Blood Pressure 113/76 110/73 Blood Pressure [Orthostatic Lying] Blood Pressure [Orthostatic Sitting] Blood Pressure [Orthostatic Standing] Pulse Oximetry 03/23/22 21:00 Pulse Rate 90 Pulse Rate [Orthostatic Lying] Pulse Rate [Orthostatic Sitting] Pulse Rate [Orthostatic Standing] Respiratory Rate 35 H Blood Pressure Blood Pressure [Orthostatic Lying] Blood Pressure [Orthostatic Sitting] Blood Pressure [Orthostatic Standing] Pulse Oximetry MDM - Dizziness <Amada Savage, DO - Last Filed: 03/25/22 13:19> Lab Data Result diagrams: 03/25/22 04:50 03/25/22 04:50 Labs: Lab Results 03/23/22 03/23/22 03/23/22 Range/Units 15:05 15:05 15:05 WBC 7.9 (4.5-11.0) X10^3/uL RBC 4.18 (4.0-5.2) X10^6/uL Hgb 10.6 L (12.0-16.0) g/dL Hct 34.9 L (36-46) % MCV 83.6 (80-100) fL MCH 25.4 L (26-34) PG MCHC 30.4 (30-36) % RDW 17.4 H (11.6-14.8) % Plt Count 589 H (150-400) X10^3/uL Neut % (Auto) 69.7 (50-75) % Lymph % (Auto) 21.2 L (25-40) % Rincon % (Auto) 3.8 (3-14) % Eos % (Auto) 3.6 (2-4) % Baso % (Auto) 1.7 (0-2) % Neut # (Auto) 5500 (1881-4189) /uL Lymph # (Auto) 1700 (8894-7460) /uL Rincon # (Auto) 300 (0-900) /uL Eos # (Auto) 300 (0-450) /uL Baso # (Auto) 100 (0-100) /uL D-Dimer 493 H (<230) ng/mL Sodium 132 L (137-145) mmol/L Potassium 5.6 H D (3.4-5.1) mmol/L Chloride 97 L (98-107) mmol/L Carbon Dioxide 22 (22-32) mmol/L BUN 18 H (7-17) mg/dL Creatinine 0.89 (0.52-1.04) mg/dL Estimated GFR > 60 (>60) mL/min BUN/Creatinine Ratio 20.2 (6-22) Glucose 443 H (70-100) mg/dL Hemoglobin A1c (4.0-6.0) % Lactate (0.7-2.1) mmol/L Calcium 8.5 (8.4-10.2) mg/dL Total Bilirubin 0.6 (0.2-1.3) mg/dL Conjugated Bilirubin Unconjugated Bilirubin AST 39 H (14-36) IU/L ALT 39 H (<35) IU/L Alkaline Phosphatase 131 H (38-126) U/L Total Creatine Kinase 31 (30-135) U/L CK-MB (CK-2) TNP CK-MB (CK-2) Rel Index TNP Troponin I < 0.012 (0.01-0.034) ng/mL Total Protein 7.5 (6.3-8.2) g/dL Albumin 4.1 (3.5-5.0) g/dL Globulin 3.4 (1.7-4.1) g/dL Albumin/Globulin Ratio 1.2 (1.0-2.8) Procalcitonin (<0.5) ng/mL Urine RBC (0-5/HPF) Urine WBC (0-5/HPF) Ur Squamous Epith Cells (0-5/HPF) Urine Bacteria (None) Ur Culture Indicated? Ketones 0.12 (<0.27) mmol/L 03/23/22 03/23/22 03/23/22 Range/Units 15:05 15:05 15:05 WBC (4.5-11.0) X10^3/uL RBC (4.0-5.2) X10^6/uL Hgb (12.0-16.0) g/dL Hct (36-46) % MCV (80-100) fL MCH (26-34) PG MCHC (30-36) % RDW (11.6-14.8) % Plt Count (150-400) X10^3/uL Neut % (Auto) (50-75) % Lymph % (Auto) (25-40) % Rincon % (Auto) (3-14) % Eos % (Auto) (2-4) % Baso % (Auto) (0-2) % Neut # (Auto) (1223-2381) /uL Lymph # (Auto) (8076-1156) /uL Rincon # (Auto) (0-900) /uL Eos # (Auto) (0-450) /uL Baso # (Auto) (0-100) /uL D-Dimer (<230) ng/mL Sodium (137-145) mmol/L Potassium (3.4-5.1) mmol/L Chloride (98-107) mmol/L Carbon Dioxide (22-32) mmol/L BUN (7-17) mg/dL Creatinine (0.52-1.04) mg/dL Estimated GFR (>60) mL/min BUN/Creatinine Ratio (6-22) Glucose (70-100) mg/dL Hemoglobin A1c (4.0-6.0) % Lactate 1.3 (0.7-2.1) mmol/L Calcium (8.4-10.2) mg/dL Total Bilirubin Cancelled (0.2-1.3) mg/dL Conjugated Bilirubin Cancelled Unconjugated Bilirubin Cancelled AST Cancelled (14-36) IU/L ALT Cancelled (<35) IU/L Alkaline Phosphatase Cancelled (38-126) U/L Total Creatine Kinase (30-135) U/L CK-MB (CK-2) CK-MB (CK-2) Rel Index Troponin I (0.01-0.034) ng/mL Total Protein Cancelled (6.3-8.2) g/dL Albumin Cancelled (3.5-5.0) g/dL Globulin Cancelled (1.7-4.1) g/dL Albumin/Globulin Ratio Cancelled (1.0-2.8) Procalcitonin 27.7 H (<0.5) ng/mL Urine RBC (0-5/HPF) Urine WBC (0-5/HPF) Ur Squamous Epith Cells (0-5/HPF) Urine Bacteria (None) Ur Culture Indicated? Ketones (<0.27) mmol/L 03/23/22 03/23/22 03/23/22 Range/Units 15:05 19:44 21:15 WBC (4.5-11.0) X10^3/uL RBC (4.0-5.2) X10^6/uL Hgb (12.0-16.0) g/dL Hct (36-46) % MCV (80-100) fL MCH (26-34) PG MCHC (30-36) % RDW (11.6-14.8) % Plt Count (150-400) X10^3/uL Neut % (Auto) (50-75) % Lymph % (Auto) (25-40) % Rincon % (Auto) (3-14) % Eos % (Auto) (2-4) % Baso % (Auto) (0-2) % Neut # (Auto) (3569-5076) /uL Lymph # (Auto) (5633-8414) /uL Rincon # (Auto) (0-900) /uL Eos # (Auto) (0-450) /uL Baso # (Auto) (0-100) /uL D-Dimer (<230) ng/mL Sodium 134 L (137-145) mmol/L Potassium 4.3 D (3.4-5.1) mmol/L Chloride 108 H (98-107) mmol/L Carbon Dioxide 20 L (22-32) mmol/L BUN 18 H (7-17) mg/dL Creatinine 0.71 (0.52-1.04) mg/dL Estimated GFR > 60 (>60) mL/min BUN/Creatinine Ratio 25.4 H (6-22) Glucose 193 H D (70-100) mg/dL Hemoglobin A1c 11.0 H (4.0-6.0) % Lactate (0.7-2.1) mmol/L Calcium 7.5 L (8.4-10.2) mg/dL Total Bilirubin (0.2-1.3) mg/dL Conjugated Bilirubin Unconjugated Bilirubin AST (14-36) IU/L ALT (<35) IU/L Alkaline Phosphatase (38-126) U/L Total Creatine Kinase (30-135) U/L CK-MB (CK-2) CK-MB (CK-2) Rel Index Troponin I (0.01-0.034) ng/mL Total Protein (6.3-8.2) g/dL Albumin (3.5-5.0) g/dL Globulin (1.7-4.1) g/dL Albumin/Globulin Ratio (1.0-2.8) Procalcitonin (<0.5) ng/mL Urine RBC 10-30/hpf H (0-5/HPF) Urine WBC 0-1/hpf (0-5/HPF) Ur Squamous Epith Cells 0-1 /hpf (0-5/HPF) Urine Bacteria Few (2-10) H (None) Ur Culture Indicated? Cult not indicated Ketones (<0.27) mmol/L Point of Care Testing Glucose POC 193 Imaging Data CTA - brain/neck: Radiologist's Impression: CT Scan Report Signed Patient: Valerie Garnica I MR#: [id number] : 1975 Acct:[id number] Age/Sex: 46 / F Date of Service: 03/23/22 Loc: ED Accession Number: [id number] ?? Procedure: CT head/brain wo con Ordering Provider: Amada Savage D.O. PROCEDURE:? CT HEAD/BRAIN WO CON ? INDICATIONS:? dizzy ? TECHNIQUE:? Noncontrast 4.5 mm thick angled axial sections acquired from the foramen magnum to the vertex, with coronal and sagittal reformats.? For radiation dose reduction, the following was used:? automated exposure control, adjustment of mA and/or kV according to patient size.? ? COMPARISON:? [facility], MR, MR HEAD/BRAIN WO CON, 12/08/2021, 14:40.? [facility], CT, CT ANGIO HEAD AND NECK, 03/18/2022, 3:13.? [facility], CT, CT HEAD/BRAIN WO CON, 02/12/2022, 8:07. ? FINDINGS:? Image quality:? Fair.? ? CSF spaces:? Basal cisterns are patent.? No extra-axial fluid collections.? Ventricles are normal in size and shape.? ? Brain:? No midline shift.? No intracranial masses or hemorrhage.? Small areas of hypodensity in the right frontal lobe, right parietal lobe, and right basal ganglia.? Overall these appear similar to prior head CT 12/07/2021.? No new area of hypodensity is identified.? ? Skull and face:? Calvarium and visualized facial bones are intact, without suspicious lesions.? ? Sinuses:? Mucosal thickening at the right ethmoid air cells.? Mastoids are clear. ? IMPRESSION:? No acute intracranial hemorrhage. ? No new area of hypodensity in a vascular distribution identified. ? Small hypodense foci in the right cerebral hemisphere appear unchanged.? This is most consistent with prior infarction.? Additional foci seen on prior brain MRI. ? ? Dictated by: Kenji Thompson M.D. on 03/23/2022 at 16:07 ? ? MDM Narrative Medical decision making narrative: The patient has no focal deficits. She had a CT angio on March 18. She is noted to be slightly hypotensive his review of blood pressures does report that she frequently does have low blood pressure but in November it seems to be her normal is above 100. She has no lactic acidosis she has no leukocytosis and is afebrile. However procalcitonin is elevated at 27.7. Concern for ongoing infection. Her you had urine is positive. She is noncompliant with antibiotics or insulin. She says she ran out of her insulin. Initial anion gap of 17. She is given 1 L of normal saline is she is given 5 units of insulin. She really does not have any signs of DKA. Discussion with Dr. López in regards to admission. At this time he recommends treating with Levaquin and return as needed. Patient has a pending repeat BMP. She says she still feels slightly dizzy. Patient signed out to Dr. Borden <Stephane Borden, DO - Last Filed: 03/24/22 00:37> Lab Data Labs: Lab Results 03/23/22 03/23/22 03/23/22 Range/Units 15:05 15:05 15:05 WBC 7.9 (4.5-11.0) X10^3/uL RBC 4.18 (4.0-5.2) X10^6/uL Hgb 10.6 L (12.0-16.0) g/dL Hct 34.9 L (36-46) % MCV 83.6 (80-100) fL MCH 25.4 L (26-34) PG MCHC 30.4 (30-36) % RDW 17.4 H (11.6-14.8) % Plt Count 589 H (150-400) X10^3/uL Neut % (Auto) 69.7 (50-75) % Lymph % (Auto) 21.2 L (25-40) % Rincon % (Auto) 3.8 (3-14) % Eos % (Auto) 3.6 (2-4) % Baso % (Auto) 1.7 (0-2) % Neut # (Auto) 5500 (5467-0585) /uL Lymph # (Auto) 1700 (4263-9374) /uL Rincon # (Auto) 300 (0-900) /uL Eos # (Auto) 300 (0-450) /uL Baso # (Auto) 100 (0-100) /uL D-Dimer 493 H (<230) ng/mL Sodium 132 L (137-145) mmol/L Potassium 5.6 H D (3.4-5.1) mmol/L Chloride 97 L (98-107) mmol/L Carbon Dioxide 22 (22-32) mmol/L BUN 18 H (7-17) mg/dL Creatinine 0.89 (0.52-1.04) mg/dL Estimated GFR > 60 (>60) mL/min BUN/Creatinine Ratio 20.2 (6-22) Glucose 443 H (70-100) mg/dL Hemoglobin A1c (4.0-6.0) % Lactate (0.7-2.1) mmol/L Calcium 8.5 (8.4-10.2) mg/dL Total Bilirubin 0.6 (0.2-1.3) mg/dL Conjugated Bilirubin Unconjugated Bilirubin AST 39 H (14-36) IU/L ALT 39 H (<35) IU/L Alkaline Phosphatase 131 H (38-126) U/L Total Creatine Kinase 31 (30-135) U/L CK-MB (CK-2) TNP CK-MB (CK-2) Rel Index TNP Troponin I < 0.012 (0.01-0.034) ng/mL Total Protein 7.5 (6.3-8.2) g/dL Albumin 4.1 (3.5-5.0) g/dL Globulin 3.4 (1.7-4.1) g/dL Albumin/Globulin Ratio 1.2 (1.0-2.8) Procalcitonin (<0.5) ng/mL Urine RBC (0-5/HPF) Urine WBC (0-5/HPF) Ur Squamous Epith Cells (0-5/HPF) Urine Bacteria (None) Ur Culture Indicated? Ketones 0.12 (<0.27) mmol/L 03/23/22 03/23/22 03/23/22 Range/Units 15:05 15:05 15:05 WBC (4.5-11.0) X10^3/uL RBC (4.0-5.2) X10^6/uL Hgb (12.0-16.0) g/dL Hct (36-46) % MCV (80-100) fL MCH (26-34) PG MCHC (30-36) % RDW (11.6-14.8) % Plt Count (150-400) X10^3/uL Neut % (Auto) (50-75) % Lymph % (Auto) (25-40) % Rincon % (Auto) (3-14) % Eos % (Auto) (2-4) % Baso % (Auto) (0-2) % Neut # (Auto) (8064-4901) /uL Lymph # (Auto) (8600-7042) /uL Rincon # (Auto) (0-900) /uL Eos # (Auto) (0-450) /uL Baso # (Auto) (0-100) /uL D-Dimer (<230) ng/mL Sodium (137-145) mmol/L Potassium (3.4-5.1) mmol/L Chloride (98-107) mmol/L Carbon Dioxide (22-32) mmol/L BUN (7-17) mg/dL Creatinine (0.52-1.04) mg/dL Estimated GFR (>60) mL/min BUN/Creatinine Ratio (6-22) Glucose (70-100) mg/dL Hemoglobin A1c (4.0-6.0) % Lactate 1.3 (0.7-2.1) mmol/L Calcium (8.4-10.2) mg/dL Total Bilirubin Cancelled (0.2-1.3) mg/dL Conjugated Bilirubin Cancelled Unconjugated Bilirubin Cancelled AST Cancelled (14-36) IU/L ALT Cancelled (<35) IU/L Alkaline Phosphatase Cancelled (38-126) U/L Total Creatine Kinase (30-135) U/L CK-MB (CK-2) CK-MB (CK-2) Rel Index Troponin I (0.01-0.034) ng/mL Total Protein Cancelled (6.3-8.2) g/dL Albumin Cancelled (3.5-5.0) g/dL Globulin Cancelled (1.7-4.1) g/dL Albumin/Globulin Ratio Cancelled (1.0-2.8) Procalcitonin 27.7 H (<0.5) ng/mL Urine RBC (0-5/HPF) Urine WBC (0-5/HPF) Ur Squamous Epith Cells (0-5/HPF) Urine Bacteria (None) Ur Culture Indicated? Ketones (<0.27) mmol/L 03/23/22 03/23/22 03/23/22 Range/Units 15:05 19:44 21:15 WBC (4.5-11.0) X10^3/uL RBC (4.0-5.2) X10^6/uL Hgb (12.0-16.0) g/dL Hct (36-46) % MCV (80-100) fL MCH (26-34) PG MCHC (30-36) % RDW (11.6-14.8) % Plt Count (150-400) X10^3/uL Neut % (Auto) (50-75) % Lymph % (Auto) (25-40) % Rincon % (Auto) (3-14) % Eos % (Auto) (2-4) % Baso % (Auto) (0-2) % Neut # (Auto) (7254-8947) /uL Lymph # (Auto) (3951-5983) /uL Rincon # (Auto) (0-900) /uL Eos # (Auto) (0-450) /uL Baso # (Auto) (0-100) /uL D-Dimer (<230) ng/mL Sodium 134 L (137-145) mmol/L Potassium 4.3 D (3.4-5.1) mmol/L Chloride 108 H (98-107) mmol/L Carbon Dioxide 20 L (22-32) mmol/L BUN 18 H (7-17) mg/dL Creatinine 0.71 (0.52-1.04) mg/dL Estimated GFR > 60 (>60) mL/min BUN/Creatinine Ratio 25.4 H (6-22) Glucose 193 H D (70-100) mg/dL Hemoglobin A1c 11.0 H (4.0-6.0) % Lactate (0.7-2.1) mmol/L Calcium 7.5 L (8.4-10.2) mg/dL Total Bilirubin (0.2-1.3) mg/dL Conjugated Bilirubin Unconjugated Bilirubin AST (14-36) IU/L ALT (<35) IU/L Alkaline Phosphatase (38-126) U/L Total Creatine Kinase (30-135) U/L CK-MB (CK-2) CK-MB (CK-2) Rel Index Troponin I (0.01-0.034) ng/mL Total Protein (6.3-8.2) g/dL Albumin (3.5-5.0) g/dL Globulin (1.7-4.1) g/dL Albumin/Globulin Ratio (1.0-2.8) Procalcitonin (<0.5) ng/mL Urine RBC 10-30/hpf H (0-5/HPF) Urine WBC 0-1/hpf (0-5/HPF) Ur Squamous Epith Cells 0-1 /hpf (0-5/HPF) Urine Bacteria Few (2-10) H (None) Ur Culture Indicated? Cult not indicated Ketones (<0.27) mmol/L Point of Care Testing Glucose POC 193 MDM Narrative Medical decision making narrative: The patient has no focal deficits. She had a CT angio on March 18. She is noted to be slightly hypotensive his review of blood pressures does report that she frequently does have low blood pressure but in November it seems to be her normal is above 100. She has no lactic acidosis she has no leukocytosis and is afebrile. However procalcitonin is elevated at 27.7. Concern for ongoing infection. Her you had urine is positive. She is noncompliant with antibiotics or insulin. She says she ran out of her insulin. Initial anion gap of 17. She is given 1 L of normal saline is she is given 5 units of insulin. She really does not have any signs of DKA. Discussion with Dr. López in regards to admission. At this time he recommends treating with Levaquin and return as needed. Patient has a pending repeat BMP. She says she still feels slightly dizzy. Patient signed out to Dr. Borden [[id number]] (Michi) Patient received in sign out from [Hussein]. I have reviewed the clinical course and performed an independent history and physical exam. She is ill-appearing and continues to be significantly orthostatic, blood pressure dropping into the 70s upon standing. Discharge Plan Departure Patient Disposition: Admitted As Inpatient Clinical Impression: UTI (urinary tract infection), Hypoglycemia, Acute hypotension Admit Date/Time: 03/23/22 23:17 Admit Provider: Kaylyn Chong
--- NOTE | 2022-03-23 15:07 | DI.CT.S_ITS ---
PROCEDURE: CT HEAD/BRAIN WO CON INDICATIONS: dizzy TECHNIQUE: Noncontrast 4.5 mm thick angled axial sections acquired from the foramen magnum to the vertex, with coronal and sagittal reformats. For radiation dose reduction, the following was used: automated exposure control, adjustment of mA and/or kV according to patient size. COMPARISON: [facility], MR, MR HEAD/BRAIN WO CON, 12/08/2021, 14:40. [facility], CT, CT ANGIO HEAD AND NECK, 03/18/2022, 3:13. [facility], CT, CT HEAD/BRAIN WO CON, 02/12/2022, 8:07. FINDINGS: Image quality: Fair. CSF spaces: Basal cisterns are patent. No extra-axial fluid collections. Ventricles are normal in size and shape. Brain: No midline shift. No intracranial masses or hemorrhage. Small areas of hypodensity in the right frontal lobe, right parietal lobe, and right basal ganglia. Overall these appear similar to prior head CT 12/07/2021. No new area of hypodensity is identified. Skull and face: Calvarium and visualized facial bones are intact, without suspicious lesions. Sinuses: Mucosal thickening at the right ethmoid air cells. Mastoids are clear. IMPRESSION: No acute intracranial hemorrhage. No new area of hypodensity in a vascular distribution identified. Small hypodense foci in the right cerebral hemisphere appear unchanged. This is most consistent with prior infarction. Additional foci seen on prior brain MRI. Dictated by: Kenji Thompson M.D. on 03/23/2022 at 16:07 Approved by: Kenji Thompson M.D. on 03/23/2022 at 16:12
[2022-03-23 15:17] LABS: Add Manual Diff / Slide Review NO; Basophils Absolute Auto 100 /uL (0-100); Basophils Percent Auto 1.7 % (0-2); Eosinophils Absolute Auto 300 /uL (0-450); Eosinophils Percent Auto 3.6 % (2-4); Hematocrit 34.9 % (36-46); Hemoglobin 10.6 g/dL (12.0-16.0); Lymphocytes Absolute Auto 1700 /uL (1100-4500); Lymphocytes Percent Auto 21.2 % (25-40); Mean Corpuscular HGB Conc 30.4 % (30-36); Mean Corpuscular Hemoglobin 25.4 PG (26-34); Mean Corpuscular Volume 83.6 fL (80-100); Monocytes Absolute Auto 300 /uL (0-900); Monocytes Percent Auto 3.8 % (3-14); Neutrophils Absolute Auto 5500 /uL (1500-7000); Neutrophils Percent Auto 69.7 % (50-75); Platelet Count 589 X10^3/uL (150-400); Red Blood Cell Count 4.18 X10^6/uL (4.0-5.2); Red Cell Distribution Width 17.4 % (11.6-14.8); White Blood Cell Count 7.9 X10^3/uL (4.5-11.0)
[2022-03-23 15:30] LABS: Alanine Aminotransferase 39 IU/L (<35); Albumin 4.1 g/dL (3.5-5.0); Albumin Globulin Ratio 1.2 (1.0-2.8); Alkaline Phosphatase 131 U/L (38-126); Aspartate Aminotransferase 39 IU/L (14-36); BUN Creatinine Ratio 20.2 (6-22); Bilirubin Total 0.6 mg/dL (0.2-1.3); Blood Urea Nitrogen 18 mg/dL (7-17); Calcium 8.5 mg/dL (8.4-10.2); Carbon Dioxide 22 mmol/L (22-32); Chloride 97 mmol/L (98-107); Creatine Kinase 31 U/L (30-135); Estimated Glomerular Filt Rate > 60 mL/min (>60); Globulin 3.4 g/dL (1.7-4.1); Glucose 443 mg/dL (70-100); Sodium 132 mmol/L (137-145); Total Protein 7.5 g/dL (6.3-8.2)
[2022-03-23 15:32] LABS: Lactate (Lactic Acid) 1.3 mmol/L (0.7-2.1); Potassium 5.6 mmol/L (3.4-5.1)
[2022-03-23 15:33] LABS: HEMOLYSIS 61 (0-50); Ketones (Beta-Hydroxybutyrate) 0.12 mmol/L (<0.27)
[2022-03-23 15:36] LABS: D Dimer 493 ng/mL (<230)
[2022-03-23 15:44] LABS: Troponin I < 0.012 ng/mL (0.01-0.034)
[2022-03-23 15:50] LABS: Procalcitonin 27.7 ng/mL (<0.5)
[2022-03-23] MEDS: SODIUM CHLORIDE 0.9% 1,000 ML 1000 ML IV ×2 (16:43→20:00)
[2022-03-23] MEDS: MORPHINE 2 MG/ML INJ IV (16:44)
[2022-03-23] MEDS: ONDANSETRON 4 MG/2 ML INJ IV (16:44)
[2022-03-23] MEDS: INSULIN REGULAR 100 UNIT/ML 3 ML VIAL IV (16:45)
[2022-03-23] MEDS: PIPERACILLIN/TAZO 4.5 GM in SODIUM CHLORIDE 0.9% 100 ML IV (16:51)
[2022-03-23 20:22] LABS: BUN Creatinine Ratio 25.4 (6-22); Blood Urea Nitrogen 18 mg/dL (7-17); Calcium 7.5 mg/dL (8.4-10.2); Carbon Dioxide 20 mmol/L (22-32); Chloride 108 mmol/L (98-107); Estimated Glomerular Filt Rate > 60 mL/min (>60); Glucose 193 mg/dL (70-100); HEMOLYSIS < 15 (0-50); Potassium 4.3 mmol/L (3.4-5.1); Sodium 134 mmol/L (137-145)
[2022-03-23] MEDS: KETOROLAC 30 MG/ML VIAL 15 MG IV (20:25)
[2022-03-23 21:32] LABS: Bacteria Urine Few (2-10); Culture Indicated Urine Cult Not Indicated; RBC Urine 10-30/HPF (0-5/HPF); Squamous Epithelial Cell Urine 0-1 /HPF (0-5/HPF); WBC Urine 0-1/HPF (0-5/HPF)
[2022-03-23] MEDS: cefTRIAXone 2,000 MG in SODIUM CHLORIDE 0.9% 100 ML 200 MG IV (23:31)
[2022-03-23] MEDS: SODIUM CHLORIDE 0.9% 1,000 ML 150 ML IV (23:32)
[2022-03-24] VITALS (11 sets, daily range): BP systolic 90–140; BP diastolic 56–91; PULSE 82–100; RESP 16–24; TEMP 36.4–36.8; O2SAT 98–99
--- NOTE | 2022-03-24 00:03 | P.HP_ITS ---
History of Present Illness History of Present Illness Date Patient Seen: 03/24/22 Time Patient Seen: 23:45 Chief complaint: UTI, sepsis associated hypotension Narrative: Valerie Lara is a 46-year-old female with insulin-dependent diabetes and frequent admissions for diabetic ketoacidosis, CVA in July 2021, presented to the ED with dizziness lightheadedness and orthostasis.? She states that she has not felt really great for the last 2 weeks. States she has had headaches, blurred vision, nausea and vomiting, dizziness when sitting or standing, staggering around, has problems with weakness in her left leg and foot since having her stroke, and pain with urination.?Denies diarrhea or constipation, abdominal pain. She has not taken her insulin for the last 2 days and states she forgets to take it.?She was admitted February 12 through February 19 for hypo tension and a UTI.? She was seen again on March 18 again for a UTI.? Both time she was discharged on Keflex.? Both time she grew E coli which were pansensitive.? He currently has a bottle of Keflex prescribed from the ED on February 02.? She says sometimes takes her Keflex sometime she has not.? EMS reported positive orthostatics. CT of the head done today was negative for any acute intracranial hemorrhage, she has a small hypodense foci in the right cerebral hemisphere which is unchanged and consistent with prior infarction in addition to seen on prior brain MRI. She is afebrile, blood pressure 137/91, heart rate 82, respiratory rate 16, oxygen saturation 96% on room air she weighs 51.9 kg with a BMI of 19.5. She had a low blood pressure of 77/50 at 8:00 a.m. this evening. WBC is within normal limits, hemoglobin and hematocrit were 10.6 and 34.9 respectively she does have elevated platelet count almost 600, D-dimer was 493, sodium 134 chloride 108 bicarb 20 BUN 18 glucose 193 A1c 11 calcium 7.5 AST 39 ALT 39 alk- phos 181, procalcitonin was 27.7, UA did indicate RBCs with a small amount of bacteria and did not meet criteria for culture, MRSA and COVID-19 PCR are reported to me by the lab to be negative. Patient History Medical History Acute CVA (cerebrovascular accident) Alcohol intoxication Closed hip fracture COVID DKA (diabetic ketoacidoses) DKA (diabetic ketoacidosis) Fibromyalgia Gastroesophageal reflux disease Insulin dependent diabetes mellitus Lupus Osteoporosis Surgical History History of hip surgery Presence of pancreatic duct stent Family & Social History Family History Mother Diabetes mellitus Congestive heart failure Pancreatic cancer Father Diabetes mellitus Brother Diabetes mellitus Pancreatitis Sister Drug overdose Social History: household members family Prior Living Arrangements House Safety & Behavioral: Feels Safe in Current Yes Environment Been Physically Hurt or No Threatened By a Person Tobacco & Substance use: Tobacco type cigarettes Smoking Status Former smoker alcohol intake denies today alcohol intake frequency holiday/special occasion Substance Use Type denies today Meds Home Medications and Allergies Home Medications Medication Instructions Recorded Confirmed Type insulin aspart U-100 100 unit/mL 0 unit (0 mL) SUBCUT AC #3 units 02/12/18 03/23/22 Rx (3 mL) subcutaneous pen (Novolog Flexpen U-100 Insulin aspart) buspirone 10 mg tablet 2 tab PO TID 12/08/18 03/23/22 History cyclobenzaprine 10 mg tablet 10 mg PO TID PRN pain 12/08/18 03/23/22 History blood sugar diagnostic (Test N'Go #50 ea 11/30/21 02/14/22 Rx Test strips) insulin glargine 100 unit/mL (3 10 unit (0.1 mL) SUBCUT DAILY #0 mL 12/09/21 03/23/22 Rx mL) subcutaneous pen gabapentin 800 mg tablet 800 mg PO TID 02/14/22 03/23/22 History [id number] See Rx Instructions .Route .COMPLEX 02/14/22 03/23/22 History 24,000-76,000-120,000 unit capsule,delayed rel (Creon) lisinopril 10 mg tablet 10 mg PO DAILY 02/14/22 03/23/22 History ondansetron HCl 4 mg tablet 4 mg PO TID 02/14/22 03/23/22 History acetaminophen 325 mg tablet 650 mg PO Q6HR PRN Headache #60 02/19/22 03/23/22 Rx tabs gabapentin 300 mg capsule 900 mg PO TID #90 caps 02/19/22 03/23/22 Rx (Neurontin) hydromorphone 2 mg tablet 2 mg PO Q4HR PRN Pain, Severe 02/19/22 03/23/22 Rx (7-10) #30 tabs loratadine 10 mg tablet 10 mg PO DAILY #30 tabs 02/19/22 03/23/22 Rx melatonin 3 mg tablet 3 mg PO BEDTIME #30 tabs 02/19/22 03/23/22 Rx pseudoephedrine HCl 30 mg tablet 30 mg PO Q6HR PRN Congestion/ 02/19/22 03/23/22 Rx sinus headache #30 tabs cephalexin 500 mg capsule 2 cap PO BID 03/23/22 03/23/22 History levofloxacin 750 mg tablet 750 mg PO DAILY 7 days #7 tabs 03/23/22 Rx Allergies Allergy/AdvReac Type Severity Reaction Status Date / Time amitriptyline Allergy Intermediate Verified 10/08/21 19:53 sulfasalazine [SULFASALAZINE] Allergy Mild PANCREATITI Verified 10/08/21 19:53 S trazodone AdvReac Intermediate HEART Verified 10/08/21 19:53 PALPITATIONS Review of Systems Review of Systems ROS: Yes All systems reviewed with the patient and are negative except as otherwise documented Exam Vital Signs (past 8 hours): - 03/23/22 17:35 03/23/22 18:00 03/23/22 18:00 Temperature Pulse Rate 100 H 96 H Pulse Rate [Orthostatic Lying] Pulse Rate [Orthostatic Sitting] Pulse Rate [Orthostatic Standing] Respiratory Rate 24 19 Blood Pressure 102/66 Blood Pressure [Orthostatic Lying] Blood Pressure [Orthostatic Sitting] Blood Pressure [Orthostatic Standing] Pulse Oximetry 100 100 Oxygen Delivery Method Oxygen Flow Rate 03/23/22 18:30 03/23/22 18:30 03/23/22 19:57 Temperature Pulse Rate 93 H Pulse Rate [Orthostatic Lying] 93 H Pulse Rate [Orthostatic Sitting] 94 H Pulse Rate [Orthostatic Standing] 97 H Respiratory Rate 22 Blood Pressure 103/65 Blood Pressure [Orthostatic Lying] 115/74 Blood Pressure [Orthostatic Sitting] 91/67 Blood Pressure [Orthostatic Standing] 77/50 L Pulse Oximetry 99 Oxygen Delivery Method Oxygen Flow Rate 03/23/22 19:00 03/23/22 19:00 03/23/22 19:30 Temperature Pulse Rate 91 H Pulse Rate [Orthostatic Lying] Pulse Rate [Orthostatic Sitting] Pulse Rate [Orthostatic Standing] Respiratory Rate 31 H Blood Pressure 105/69 106/75 Blood Pressure [Orthostatic Lying] Blood Pressure [Orthostatic Sitting] Blood Pressure [Orthostatic Standing] Pulse Oximetry 99 Oxygen Delivery Method Oxygen Flow Rate 03/23/22 19:30 03/23/22 19:52 03/23/22 19:52 Temperature Pulse Rate 94 H 94 H Pulse Rate [Orthostatic Lying] Pulse Rate [Orthostatic Sitting] Pulse Rate [Orthostatic Standing] Respiratory Rate 19 29 H Blood Pressure 115/74 Blood Pressure [Orthostatic Lying] Blood Pressure [Orthostatic Sitting] Blood Pressure [Orthostatic Standing] Pulse Oximetry 99 Oxygen Delivery Method Oxygen Flow Rate 03/23/22 19:53 03/23/22 19:53 03/23/22 19:54 Temperature Pulse Rate 96 H 103 H Pulse Rate [Orthostatic Lying] Pulse Rate [Orthostatic Sitting] Pulse Rate [Orthostatic Standing] Respiratory Rate 19 22 Blood Pressure 91/61 Blood Pressure [Orthostatic Lying] Blood Pressure [Orthostatic Sitting] Blood Pressure [Orthostatic Standing] Pulse Oximetry Oxygen Delivery Method Oxygen Flow Rate 03/23/22 19:54 03/23/22 20:00 03/23/22 20:00 Temperature Pulse Rate 91 H Pulse Rate [Orthostatic Lying] Pulse Rate [Orthostatic Sitting] Pulse Rate [Orthostatic Standing] Respiratory Rate 20 Blood Pressure 77/50 L 106/67 Blood Pressure [Orthostatic Lying] Blood Pressure [Orthostatic Sitting] Blood Pressure [Orthostatic Standing] Pulse Oximetry Oxygen Delivery Method Oxygen Flow Rate 03/23/22 20:30 03/23/22 20:30 03/23/22 21:00 Temperature Pulse Rate 85 Pulse Rate [Orthostatic Lying] Pulse Rate [Orthostatic Sitting] Pulse Rate [Orthostatic Standing] Respiratory Rate 20 Blood Pressure 113/76 110/73 Blood Pressure [Orthostatic Lying] Blood Pressure [Orthostatic Sitting] Blood Pressure [Orthostatic Standing] Pulse Oximetry Oxygen Delivery Method Oxygen Flow Rate 03/23/22 21:00 03/23/22 23:23 03/23/22 23:18 Temperature 98.1 F Pulse Rate 90 86 Pulse Rate [Orthostatic Lying] Pulse Rate [Orthostatic Sitting] Pulse Rate [Orthostatic Standing] Respiratory Rate 35 H 16 Blood Pressure 104/68 Blood Pressure [Orthostatic Lying] Blood Pressure [Orthostatic Sitting] Blood Pressure [Orthostatic Standing] Pulse Oximetry 96 Oxygen Delivery Method Room Air Oxygen Flow Rate 0 Oxygen Delivery Method Room Air Oxygen Flow Rate 0 Narrative Exam Narrative: Gen: Alert, oriented, cachectic appearing 46 y.o. female, tino ears older than stated age HEENT: normocephalic, atraumatic, conjunctiva clear, sclera non-icteric, oral mucosa pink and moist Neck: supple, full ROM, no JVD, trachea is midline Resp: Lungs CTA, non-labored breathing CV: RRR, no murmur or rubs Abd: soft, non-tender, normoactive BTs Skin: no lesions or rashes, dry and intact Neuro: Alert and oriented X 4 w/no focal deficits. Speech clear and coherent. Extremities: moves all 4 extremities, is ambulatory, negative Christelle?s sign Psyche: normal mood and affect. Objective Labs Result Diagrams: 03/23/22 15:05 03/23/22 19:44 Labs: Laboratory Results - last 24 hr 03/23/22 03/23/22 03/23/22 15:05 15:05 15:05 WBC 7.9 RBC 4.18 Hgb 10.6 L Hct 34.9 L MCV 83.6 MCH 25.4 L MCHC 30.4 RDW 17.4 H Plt Count 589 H Neut % (Auto) 69.7 Lymph % (Auto) 21.2 L [place] % (Auto) 3.8 Eos % (Auto) 3.6 Baso % (Auto) 1.7 Neut # (Auto) 5500 Lymph # (Auto) 1700 [place] # (Auto) 300 Eos # (Auto) 300 Baso # (Auto) 100 D-Dimer 493 H Sodium 132 L Potassium 5.6 H D Chloride 97 L Carbon Dioxide 22 BUN 18 H Creatinine 0.89 Estimated GFR > 60 BUN/Creatinine Ratio 20.2 Glucose 443 H Hemoglobin A1c Lactate Calcium 8.5 Total Bilirubin 0.6 Conjugated Bilirubin Unconjugated Bilirubin AST 39 H ALT 39 H Alkaline Phosphatase 131 H Total Creatine Kinase 31 CK-MB (CK-2) TNP CK-MB (CK-2) Rel Index TNP Troponin I < 0.012 Total Protein 7.5 Albumin 4.1 Globulin 3.4 Albumin/Globulin Ratio 1.2 Procalcitonin Urine RBC Urine WBC Ur Squamous Epith Cells Urine Bacteria Ur Culture Indicated? Ketones 0.12 03/23/22 03/23/22 03/23/22 15:05 15:05 15:05 WBC RBC Hgb Hct MCV MCH MCHC RDW Plt Count Neut % (Auto) Lymph % (Auto) [place] % (Auto) Eos % (Auto) Baso % (Auto) Neut # (Auto) Lymph # (Auto) [place] # (Auto) Eos # (Auto) Baso # (Auto) D-Dimer Sodium Potassium Chloride Carbon Dioxide BUN Creatinine Estimated GFR BUN/Creatinine Ratio Glucose Hemoglobin A1c Lactate 1.3 Calcium Total Bilirubin Cancelled Conjugated Bilirubin Cancelled Unconjugated Bilirubin Cancelled AST Cancelled ALT Cancelled Alkaline Phosphatase Cancelled Total Creatine Kinase CK-MB (CK-2) CK-MB (CK-2) Rel Index Troponin I Total Protein Cancelled Albumin Cancelled Globulin Cancelled Albumin/Globulin Ratio Cancelled Procalcitonin 27.7 H Urine RBC Urine WBC Ur Squamous Epith Cells Urine Bacteria Ur Culture Indicated? Ketones 03/23/22 03/23/22 03/23/22 15:05 19:44 21:15 WBC RBC Hgb Hct MCV MCH MCHC RDW Plt Count Neut % (Auto) Lymph % (Auto) [place] % (Auto) Eos % (Auto) Baso % (Auto) Neut # (Auto) Lymph # (Auto) [place] # (Auto) Eos # (Auto) Baso # (Auto) D-Dimer Sodium 134 L Potassium 4.3 D Chloride 108 H Carbon Dioxide 20 L BUN 18 H Creatinine 0.71 Estimated GFR > 60 BUN/Creatinine Ratio 25.4 H Glucose 193 H D Hemoglobin A1c 11.0 H Lactate Calcium 7.5 L Total Bilirubin Conjugated Bilirubin Unconjugated Bilirubin AST ALT Alkaline Phosphatase Total Creatine Kinase CK-MB (CK-2) CK-MB (CK-2) Rel Index Troponin I Total Protein Albumin Globulin Albumin/Globulin Ratio Procalcitonin Urine RBC 10-30/hpf H Urine WBC 0-1/hpf Ur Squamous Epith Cells 0-1 /hpf Urine Bacteria Few (2-10) H Ur Culture Indicated? Cult not indicated Ketones Assessment & Plan Assessment & Plan narrative: Valerie lara is admitted to the inpatient unit for continued management and treatment of sepsis in the setting of a urinary tract infection. Sepsis associated with Urinary tract infection, acute, present on admission * She was given 2 L normal saline boluses in the emergency department and will be continued on normal saline at 150 mL/hour * She was given a loading dose of IV ceftriaxone 2000 mg and will be continued Q 24 hours starting tomorrow at 1000 mg daily Orthostasis, acute, present on admission * Orthostasis appears to be resolved at this time she has a blood pressure of 137/91 * Continue 4 hour Q orthostatic vitals * Blood pressure medications will not likely be resumed until tomorrow Diabetes type 1 poorly controlled with an A1c of 11 * She is initially started on Lantus 5 units twice daily * Medium dose correctional insulin scale ACHS VTE Prophylaxis: Wells risk score 0 Enoxaparin 40 mg subQ once daily Bilateral SCDs Patient is admitted to the inpatient service due to the severity of disease, risks of further disease progression and this stay is expected to exceed 2 midnights. FEN: IV fluids: NS at 150 ml/hour, diet: diabetic carb control, labs: CBC, C/BMP, liver enzymes, Mag, PT/INR Consultants None Dispo: probable discharge to home Code status: Full Code as discussed with the patient who identifies her sister and daughter her surrogate and POA. [X] I have utilized all available immediate resources to obtain, update, or review of the patient's current medications Scores Wells' Criteria for PE Clinical signs and symptoms of DVT: No PE is #1 Dx or equally likely: No Heart rate > 100: No Immobilization at least 3 days or surg in previous 4 weeks: No History of PE or DVT: No Hemoptysis: No Malignancy w/Treatment within 6 months or palliative: No Wells' PE Score total: 0 Quality MIPS - Admit I confirm the patient?s Advance Care Plan is present, Code status is documented, Surrogate decision maker is in patient?s record [If Yes, STOP here]: Yes MIPS - DC The patient has current or prior documentation of left ventricular ejection fraction (LVEF) less than 40%, or moderate or severely depressed left ventricular systolic function.: No
[2022-03-24] MEDS: ACETAMINOPHEN 325 MG TABLET 650 MG PO ×2 (00:46→06:38)
[2022-03-24 00:48] LABS: COVID19 - ADMIT (NP swab/PCR) Negative (Negative)
[2022-03-24] MEDS: TRAMADOL 50 MG TABLET PO ×3 (03:40→15:37)
[2022-03-24 04:42] LABS: Add Manual Diff / Slide Review NO; Basophils Absolute Auto 100 /uL (0-100); Basophils Percent Auto 1.3 % (0-2); Eosinophils Absolute Auto 400 /uL (0-450); Eosinophils Percent Auto 5.3 % (2-4); Hematocrit 27.2 % (36-46); Hemoglobin 8.5 g/dL (12.0-16.0); Lymphocytes Absolute Auto 2400 /uL (1100-4500); Lymphocytes Percent Auto 33.2 % (25-40); Mean Corpuscular HGB Conc 31.2 % (30-36); Mean Corpuscular Hemoglobin 25.9 PG (26-34); Monocytes Absolute Auto 400 /uL (0-900); Neutrophils Absolute Auto 4100 /uL (1500-7000); Neutrophils Percent Auto 55.2 % (50-75); Platelet Count 469 X10^3/uL (150-400); Red Blood Cell Count 3.27 X10^6/uL (4.0-5.2); Red Cell Distribution Width 17.4 % (11.6-14.8); White Blood Cell Count 7.3 X10^3/uL (4.5-11.0)
[2022-03-24 04:52] LABS: Alanine Aminotransferase 24 IU/L (<35); Albumin 2.8 g/dL (3.5-5.0); Alkaline Phosphatase 104 U/L (38-126); Aspartate Aminotransferase 24 IU/L (14-36); BUN Creatinine Ratio 28.6 (6-22); Bilirubin Total 0.2 mg/dL (0.2-1.3); Bilirubin Unconjugated 0.1 mg/dL (0.0-1.1); Blood Urea Nitrogen 14 mg/dL (7-17); Calcium 7.5 mg/dL (8.4-10.2); Carbon Dioxide 18 mmol/L (22-32); Chloride 112 mmol/L (98-107); Estimated Glomerular Filt Rate > 60 mL/min (>60); Globulin 2.8 g/dL (1.7-4.1); Glucose 236 mg/dL (70-100); HEMOLYSIS < 15 (0-50); Magnesium 1.8 mg/dL (1.6-2.3); Potassium 4.2 mmol/L (3.4-5.1); Sodium 135 mmol/L (137-145); Total Protein 5.6 g/dL (6.3-8.2)
--- NOTE | 2022-03-24 05:37 | PC.NURSE ---
Shift Note: Patient brought in from the ED by stretcher, alert and orientedx4, no signs of distress, at room air, vital signs are stable and within acceptable limits. Patient was seen and examined by AMI Chong, new orders given. Patient has episode of headache and back pain, due pain meds given, verbalized relief. Safety precautions emphasized and maintained. Call jolly within reach. Will continue to monitor.
[2022-03-24] MEDS: SODIUM CHLORIDE 0.9% 1,000 ML 150 ML IV ×3 (06:33→19:39)
[2022-03-24] MEDS: ENOXAPARIN 40 MG/0.4 ML SYRINGE SUBCUT (08:21)
[2022-03-24] MEDS: INSULIN LISPRO 100 UNIT/ML 3ML VIAL SUBCUT ×3 (09:05→17:35)
[2022-03-24] MEDS: INSULIN GLARGINE 100 UNIT/ML 3ML PEN SUBCUT (09:06)
[2022-03-24] MEDS: FLUTICASONE 120 SPRAY/16 GM SPRAY.SUSP NASAL (09:38)
[2022-03-24] MEDS: ONDANSETRON 4 MG/2 ML INJ IV ×2 (11:14→20:25)
[2022-03-24] MEDS: MORPHINE 2 MG/ML INJ IV ×3 (11:14→22:21)
--- NOTE | 2022-03-24 12:33 | P.PN_ITS ---
Subjective Subjective Date Patient Seen: 03/24/22 Interval history: Continues to have orthostasis today, with BP drop of 40 points when standing. Complains of headache and slight nausea, slight abdominal pain as well today. Drop in Hg but likely related to fluids as she is chronically anemic. Denies chest pain or shortness of breath. She continues to feel weak. Exam Vital Signs (past 8 hours): - 03/24/22 05:50 03/24/22 07:00 03/24/22 08:32 Temperature 98.0 F Pulse Rate 87 Pulse Rate [Orthostatic Lying] 89 87 Pulse Rate [Orthostatic Sitting] 94 H 97 H Pulse Rate [Orthostatic Standing] 97 H 100 H Respiratory Rate 24 Blood Pressure 132/83 Blood Pressure [Orthostatic Lying] 121/78 132/83 Blood Pressure [Orthostatic Sitting] 120/84 124/81 Blood Pressure [Orthostatic Standing] 103/57 L 108/77 Pulse Oximetry 99 Oxygen Delivery Method Oxygen Flow Rate 0 03/24/22 11:40 03/24/22 12:00 Temperature 98.2 F Pulse Rate 90 Pulse Rate [Orthostatic Lying] Pulse Rate [Orthostatic Sitting] Pulse Rate [Orthostatic Standing] Respiratory Rate 20 Blood Pressure 130/56 L Blood Pressure [Orthostatic Lying] Blood Pressure [Orthostatic Sitting] Blood Pressure [Orthostatic Standing] Pulse Oximetry 98 98 Oxygen Delivery Method Room Air Oxygen Flow Rate 0 Oxygen Delivery Method Room Air Oxygen Flow Rate 0 Narrative Exam Narrative: Gen: Alert, oriented, chronically ill appearing female, appears older than stated age HEENT: normocephalic, atraumatic, conjunctiva clear, sclera non-icteric, oral mucosa pink and moist Neck: supple, full ROM, no JVD, trachea is midline Resp: Lungs CTA, non-labored breathing CV: RRR, no murmur or rubs Abd: soft, mild-suprapubic tenderness, non-distended. No CVA tenderness. Skin: no lesions or rashes, dry and intact Neuro: Alert and oriented X 4. Slight dysarthria at baseline per patient. Extremities: no edema or joint effusions Psyche: normal mood and affect. Objective Labs Result Diagrams: 03/24/22 04:25 03/24/22 04:25 Labs: Laboratory Results - last 24 hr 03/23/22 03/23/22 03/23/22 15:05 15:05 15:05 WBC 7.9 RBC 4.18 Hgb 10.6 L Hct 34.9 L MCV 83.6 MCH 25.4 L MCHC 30.4 RDW 17.4 H Plt Count 589 H Neut % (Auto) 69.7 Lymph % (Auto) 21.2 L [place] % (Auto) 3.8 Eos % (Auto) 3.6 Baso % (Auto) 1.7 Neut # (Auto) 5500 Lymph # (Auto) 1700 [place] # (Auto) 300 Eos # (Auto) 300 Baso # (Auto) 100 D-Dimer 493 H Sodium 132 L Potassium 5.6 H D Chloride 97 L Carbon Dioxide 22 BUN 18 H Creatinine 0.89 Estimated GFR > 60 BUN/Creatinine Ratio 20.2 Glucose 443 H Hemoglobin A1c Lactate Calcium 8.5 Magnesium Total Bilirubin 0.6 Conjugated Bilirubin Unconjugated Bilirubin AST 39 H ALT 39 H Alkaline Phosphatase 131 H Total Creatine Kinase 31 CK-MB (CK-2) TNP CK-MB (CK-2) Rel Index TNP Troponin I < 0.012 Total Protein 7.5 Albumin 4.1 Globulin 3.4 Albumin/Globulin Ratio 1.2 Procalcitonin Urine RBC Urine WBC Ur Squamous Epith Cells Urine Bacteria Ur Culture Indicated? Nasal Screen MRSA (PCR) Ketones 0.12 SARS-CoV-2 (PCR) 03/23/22 03/23/22 03/23/22 15:05 15:05 15:05 WBC RBC Hgb Hct MCV MCH MCHC RDW Plt Count Neut % (Auto) Lymph % (Auto) [place] % (Auto) Eos % (Auto) Baso % (Auto) Neut # (Auto) Lymph # (Auto) [place] # (Auto) Eos # (Auto) Baso # (Auto) D-Dimer Sodium Potassium Chloride Carbon Dioxide BUN Creatinine Estimated GFR BUN/Creatinine Ratio Glucose Hemoglobin A1c Lactate 1.3 Calcium Magnesium Total Bilirubin Cancelled Conjugated Bilirubin Cancelled Unconjugated Bilirubin Cancelled AST Cancelled ALT Cancelled Alkaline Phosphatase Cancelled Total Creatine Kinase CK-MB (CK-2) CK-MB (CK-2) Rel Index Troponin I Total Protein Cancelled Albumin Cancelled Globulin Cancelled Albumin/Globulin Ratio Cancelled Procalcitonin 27.7 H Urine RBC Urine WBC Ur Squamous Epith Cells Urine Bacteria Ur Culture Indicated? Nasal Screen MRSA (PCR) Ketones SARS-CoV-2 (PCR) 03/23/22 03/23/22 03/23/22 15:05 19:44 21:15 WBC RBC Hgb Hct MCV MCH MCHC RDW Plt Count Neut % (Auto) Lymph % (Auto) [place] % (Auto) Eos % (Auto) Baso % (Auto) Neut # (Auto) Lymph # (Auto) [place] # (Auto) Eos # (Auto) Baso # (Auto) D-Dimer Sodium 134 L Potassium 4.3 D Chloride 108 H Carbon Dioxide 20 L BUN 18 H Creatinine 0.71 Estimated GFR > 60 BUN/Creatinine Ratio 25.4 H Glucose 193 H D Hemoglobin A1c 11.0 H Lactate Calcium 7.5 L Magnesium Total Bilirubin Conjugated Bilirubin Unconjugated Bilirubin AST ALT Alkaline Phosphatase Total Creatine Kinase CK-MB (CK-2) CK-MB (CK-2) Rel Index Troponin I Total Protein Albumin Globulin Albumin/Globulin Ratio Procalcitonin Urine RBC 10-30/hpf H Urine WBC 0-1/hpf Ur Squamous Epith Cells 0-1 /hpf Urine Bacteria Few (2-10) H Ur Culture Indicated? Cult not indicated Nasal Screen MRSA (PCR) Ketones SARS-CoV-2 (PCR) 03/23/22 03/23/22 03/24/22 23:27 23:27 04:25 WBC 7.3 RBC 3.27 L Hgb 8.5 L Hct 27.2 L MCV 83.0 MCH 25.9 L MCHC 31.2 RDW 17.4 H Plt Count 469 H Neut % (Auto) 55.2 Lymph % (Auto) 33.2 [place] % (Auto) 5.0 Eos % (Auto) 5.3 H Baso % (Auto) 1.3 Neut # (Auto) 4100 Lymph # (Auto) 2400 [place] # (Auto) 400 Eos # (Auto) 400 Baso # (Auto) 100 D-Dimer Sodium Potassium Chloride Carbon Dioxide BUN Creatinine Estimated GFR BUN/Creatinine Ratio Glucose Hemoglobin A1c Lactate Calcium Magnesium Total Bilirubin Conjugated Bilirubin Unconjugated Bilirubin AST ALT Alkaline Phosphatase Total Creatine Kinase CK-MB (CK-2) CK-MB (CK-2) Rel Index Troponin I Total Protein Albumin Globulin Albumin/Globulin Ratio Procalcitonin Urine RBC Urine WBC Ur Squamous Epith Cells Urine Bacteria Ur Culture Indicated? Nasal Screen MRSA (PCR) Negative for mrsa Ketones SARS-CoV-2 (PCR) Negative 03/24/22 04:25 WBC RBC Hgb Hct MCV MCH MCHC RDW Plt Count Neut % (Auto) Lymph % (Auto) [place] % (Auto) Eos % (Auto) Baso % (Auto) Neut # (Auto) Lymph # (Auto) [place] # (Auto) Eos # (Auto) Baso # (Auto) D-Dimer Sodium 135 L Potassium 4.2 Chloride 112 H Carbon Dioxide 18 L BUN 14 Creatinine 0.49 L Estimated GFR > 60 BUN/Creatinine Ratio 28.6 H Glucose 236 H Hemoglobin A1c Lactate Calcium 7.5 L Magnesium 1.8 Total Bilirubin 0.2 Conjugated Bilirubin 0.0 Unconjugated Bilirubin 0.1 AST 24 ALT 24 Alkaline Phosphatase 104 Total Creatine Kinase CK-MB (CK-2) CK-MB (CK-2) Rel Index Troponin I Total Protein 5.6 L Albumin 2.8 L Globulin 2.8 Albumin/Globulin Ratio 1.0 Procalcitonin Urine RBC Urine WBC Ur Squamous Epith Cells Urine Bacteria Ur Culture Indicated? Nasal Screen MRSA (PCR) Ketones SARS-CoV-2 (PCR) [facility] Medical History Acute CVA (cerebrovascular accident) Alcohol intoxication Closed hip fracture COVID DKA (diabetic ketoacidoses) DKA (diabetic ketoacidosis) Fibromyalgia Gastroesophageal reflux disease Insulin dependent diabetes mellitus Lupus Osteoporosis Surgical History History of hip surgery Presence of pancreatic duct stent Family History Mother Diabetes mellitus Congestive heart failure Pancreatic cancer Father Diabetes mellitus Brother Diabetes mellitus Pancreatitis Sister Drug overdose Social History household members: family Smoking Status: Former smoker alcohol intake: current Assessment & Plan Assessment & Plan narrative: Sepsis ruled out. Urinary tract infection, acute, present on admission -She was given 2 L normal saline boluses in the emergency department and will be continued on normal saline at 150 mL/hour -She was given a loading dose of IV ceftriaxone 2000 mg and will be continued Q 24 hours starting tomorrow at 1000 mg daily -She failed outpatient oral antibiotics, though had difficulty with keflex 4x daily, she does endorse taking at least twice per day. -continue ceftriaxone q24 hours x 3 days. - elevated procalcitonin indicative of bacterial infection ongoing, will continue to follow. Orthostatic hypotension, acute, present on admission - Orthostasis continues today. Likely due to dehydration, possibly from uncontrolled diabetes. Has a NAGMA, may be related to relative insulinemia, though no liz DKA on admission. Will continue IV fluids at this point but if worsening NAGMA consider oral rehydation as NS can cause as well. - Continue orthstatic vitals qshift. - Blood pressure meds will continue to hold Diabetes type 1 poorly controlled with an A1c of 11, -Will continue to adjust long acting insulin -Medium dose correctional insulin scale ACHS -she was probably insulinemic on admission as noted above, will continue to adjust as needed. Dispo: probable discharge to home, pending PT evaluation, hopefully tomorrow depending on orthostatics. Code status: Full Code as discussed with the patient who identifies her sister and daughter her surrogate and POA. [X] I have utilized all available immediate resources to obtain, update, or review of the patient's current medications Time Spent With Patient Critical Care time: I spent a total of [] minutes of critical care time on this patient's care today; this time is exclusive of procedural time. Quality VTE Deep Vein Thrombosis/Pulmonary Embolism Present on Admission: No
--- NOTE | 2022-03-24 13:58 | DIET.CONS ---
Dietary Consultation Note Admission Date: 03/23/2022 23:17 Assessment: 46y F admitted for UTI and orthostatic hypotension screened by RD for poorly managed DM and hx malnutrition with current MNA 7 (malnourished). Pt 3kg below last admission weight, A1c 11. Pt reports forgetting to take insulin and often skips when having poor appetite. Pt had obtained CGM last admit with referral to DSME program, however, pt yet to have visit. Pt edentulous. Ht: 160.02 cm Wt: 51.9 kg BMI: 19.5 Last BM: 03/22/22 (03/23/22 23:18) MNA: 7 Jag Score: 21 Diet: 03/24/22 Breakfast Carbohydrate Consistent Diet Diet Modifications: Safety Tray needed?: Yes Carbohydrate level: Small (2 CHO) Nutrition Percent Meal Consumed 100% 03/24/22 08:49 Labs: RBC 3.27 X10^6/uL (4.0-5.2) L 03/24/22 04:25 Hgb 8.5 g/dL (12.0-16.0) L 03/24/22 04:25 Hct 27.2 % (36-46) L 03/24/22 04:25 Creatinine 0.49 mg/dL (0.52-1.04) L 03/24/22 04:25 Hemoglobin A1c 11.0 % (4.0-6.0) H 03/23/22 15:05 Lactate 1.3 mmol/L (0.7-2.1) 03/23/22 15:05 Nutrition Diagnosis: Severe Chronic Malnutrition r/t chronic hyperglycemia, poor appetite aeb pt with A1c >10 x3y, pt reports skipping insulin frequently secondary to poor appetite, pt with chronic low BMI, edentulous. Interventions: 1. Recc f/u c IH CDE for better DM management. 2. Recc Soft CCD diet c glucerna bid. Electronically Signed by: Viviana Graves 03/24/22 13:58 Clinical Dietitian [address] [address]
--- NOTE | 2022-03-24 14:36 | CM.DANOTE ---
Initial Discharge Plan Assessment: Patient is a 46 yo female, resident of [place] presents w/weakness, found to be Hypotensive & Hyperglycemic. Patient admitted for management of Orthostatic hypotension and UTI. PMH includes DM type I PCP: Jhonny Singletary Payer: Medicaid, [facility] According to prior assessment- Patient lives in [place] with her 63 year old sister and 2 nephews, her daughter lives in a trailer in front. Sister assists patient w/higher ADLs and transportation. 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 Plan: DC home w/family and HH services anticipated once medically stable. PT eval pending TERA Gonzales Discharge Planning/Care Management CM Discharge Assessment Start: 03/24/22 12:31 Freq: Status: Active Protocol: Document 03/24/22 12:31 BRANDAN (Rec: 03/24/22 14:23 BRANDAN [id number]) Discharge Planning Assessment Assigned [place] [employer] Supervisor TERA Kingsley DPOA/Assigned Designee Name family Yumiko Contact Information [phone] Advance Directives? No Advance Directives on File No History Provided By Patient,Medical Record Has Patient been admitted in last 30 No days? Comment Admission 5.-02.19.22 ER visit 03.17.22 Prior Living Arrangements House Household Members family Type of transporation used prior to Relies on Others admit Comment Has NED but no SNF benefit per notes last visit. Expedited assessment request through [facility] was faxed 02.20.22 by this FREIGHT FLAGMAN Independent with ADL's No: Mod Indp Is patient alert and oriented? Yes Needs Assistance With Bathing,Meal Prep,Managing Medications,Home Chores / Shopping Patient/Family Preference Home with Home Health Comment Pt desires to return home with prior living arrangement. Lives in home with family. Discharge Plan Home Transportation Arrangement Family Referrals Initiated None needed Additional Comment keshav EJ per notes If patient plan is SNF: Has PASSR been Yes completed? Medicare Choice List Provided Yes SNF/HH Preference keshavjamin PAGAN
--- NOTE | 2022-03-24 15:25 | PT.IIE ---
Surgical History (Last Reviewed 03/24/22 @ 00:32 by ZOFIA Klein) History of hip surgery Presence of pancreatic duct stent Medical History (Last Reviewed 03/24/22 @ 00:32 by ZOFIA Klein) Acute CVA (cerebrovascular accident) Alcohol intoxication Closed hip fracture COVID DKA (diabetic ketoacidoses) DKA (diabetic ketoacidosis) Fibromyalgia Gastroesophageal reflux disease Insulin dependent diabetes mellitus Lupus Osteoporosis Physical Therapy Inpatient Evaluation/Re-Eval M1 PT/OT-IP Prior Functional Status Start: 03/24/22 16:34 Freq: NEEDED Status: Active Protocol: Document 03/24/22 15:25 AB (Rec: 03/24/22 16:43 AB [id number]) Medical Review Prior Functional Status Medical History Reviewed Yes Communication able to make needs known Mobility and Gait pt stated that she is modified idnependent witha ll mobiltiies and ambulation using FWW; stated that when she needed assistance, her daughter assists her Social History Household Members family Living Arrangements House Number of Floors (Floors) One Floor Number of Stairs To Enter/Railing? ramp to enter Home Environment Standard Height Toilet,Tub/ Shower,Ramp Home Equipment Front Wheel Walker,Shower Seat with Backrest,Hand Held Shower,Leg Wharf Operator,Grab Bars In Shower Additional Social History Comment has her daughter and cousin at home to assist her M2 PT-IP Current Condition Start: 03/24/22 16:34 Freq: NEEDED Status: Active Protocol: Document 03/24/22 15:25 AB (Rec: 03/24/22 16:43 AB [id number]) Physical Therapy Current Condition Current Condition Evaluation Date 03/24/22 Treatment Diagnosis UTI; hypotension; difficulty in walking Onset Date 03/23/22 M3 PT-IP Subjective Start: 03/24/22 16:34 Freq: NEEDED Status: Active Protocol: Document 03/24/22 15:25 AB (Rec: 03/24/22 16:43 AB [email or web address]) Subjective Physical Therapy Visit Type Type Initial Evaluation Visit Start Time 15:25 Visit Stop Time 15:57 Total Visit Minutes 32 Number of RN OCCUPATIONAL Visits 0 Physical Therapy Visit Comments Patient Comments agreeable to do PT M4 PT-IP Mobility and Gait Start: 03/24/22 16:34 Freq: NEEDED Status: Active Protocol: Document 03/24/22 15:25 AB (Rec: [facility]/24/22 16:[facility] PT-Bed Mobility Assessment Supine to Sit Supine to Sit Standby Assistance Sit to Supine Sit to Supine Standby Assistance PT-Transfer Assessment Sit to and From Stand Sit to and from Stand Contact Guard Assistance Equipment Transfer Assistive Device Gait Belt,Front Wheeled Walker Orthotic/Prosthetic Devices or Brace: No Comments Mobility Comments BP in supine: 133/84. completed supine to sit SBA. able to sit on EOB SBA. c/o dizziness. BP in sittin /77. pt tolerated ~ 2-3 min of sitting and BP checked again: 118/83. agreed stand and completed sit to stand CGA. c /o increase dizziness. BP checked during standing but unable to finish with the reading due to dizziness and pt has to sit back on EOB. BP : 91/65 sitting after standing . BP checked again in sitting after restin/77. pt agreed to stand again and completed CGA. continues to c /o dizziness. BP in standin/66. again pt has to sit back down. BP checked again in sittin/72. pt completed sit to supine SBA and positioned in bed. call light and table placed within reach. BP checked: 147/86. informed nurse. PT-Balance Assessment Sitting Balance and Reactions Static Sitting Balance Ability Normal Dynamic Sitting Balance Ability Normal Standing Balance and Reactions Static Standing Balance Ability Fair Device Used FWW M5 PT-IP Objective Assessments Start: 03/24/22 16:34 Freq: NEEDED Status: Active Protocol: Document 03/24/22 15:25 AB (Rec: 03/24/22 16:43 [facility] Orientation Orientation/Cognition Level of Alertness Alert Orientation Name,Place,Situation Language Function Ability No Deficits Noted Safety Awareness Decreased Safety Awareness Memory Description No Deficits Noted Strength Lower Extremity Strength Hip 4-/5 Knee 4-/5 Coordination Assessment Gross Coordination Gross Coordination WNL Muscle Tone Muscle Tone WNL Yes M6 PT-IP Treatment Start: 03/24/22 16:34 Freq: NEEDED Status: Active Protocol: Document 03/24/22 15:25 AB (Rec: 03/24/22 16:43 [facility] Physical Therapy Treatment Education Education Provided Safety M7 PT-IP Assessment and Plan Start: 03/24/22 16:34 Freq: NEEDED Status: Active Protocol: Document 03/24/22 15:25 AB (Rec: 03/24/22 16:43 AB [id number]) PT Summary Assessment and Plan Potential Rehabilitation Potential Fair Status of Condition at Evaluation Evolving Summary Impairments Pain,ROM,Strength,Balance, Coordination,Sensation,Tone, Cognition,Bed Mobility, Transfers,Gait,Activity Tolerance Assessment Summary pt requiring CGA with sit to stand but unable to tolerate much activity due to orthostatic hypotension with c /o dizziness. pt only able to stand for a few seconds and unable to toelrate standing to be able to ambulate. BP in supine: 133/84 and decreased to 91/65 in standing. Mobility is limited due to orthostatic hypotension. will continue to assess progress. Goals Bed Mobility Goal Independent Transfer Goal Independent,Front Wheeled Walker Gait Goal Independent,Front Wheel Walker Gait Distance 150 Days to Meet Goals 10 Frequency of Treatment Frequency Of Treatment Once a Day Treatment Plan Physical Therapy Treatment Plan Bed Mobility Training,Transfer Training,Gait Training, Therapeutic Exercise,Balance Retraining,Discharge Planning, Hot or Cold Pack,Neuromuscular Re-ed,Coordination Retraining Precautions Other Precautions orthostatic hypotension Recommendations To Nursing Amount of Assist Needed 1 Person Assist Discharge Recommendations PT Discharge Recommendations Home with 11/04 Assist Available,Home Health Transportation Needs at Discharge Private Vehicle
[2022-03-24] MEDS: cefTRIAXone 1,000 MG in SODIUM CHLORIDE 0.9% 100 ML 200 MG IV (20:24)
[2022-03-24] MEDS: INSULIN GLARGINE 100 UNIT/ML 3ML PEN 10 UNIT SUBCUT (21:40)
[2022-03-25] VITALS (7 sets, daily range): BP systolic 81–144; BP diastolic 58–88; PULSE 83–101; RESP 13–18; TEMP 36.4–36.7; O2SAT 98–99
[2022-03-25] MEDS: SODIUM CHLORIDE 0.9% 1,000 ML 150 ML IV ×4 (02:47→23:30)
[2022-03-25] MEDS: MORPHINE 2 MG/ML INJ IV ×3 (02:47→21:14)
[2022-03-25] MEDS: ACETAMINOPHEN 325 MG TABLET 975 MG PO (05:06)
[2022-03-25 05:10] LABS: Add Manual Diff / Slide Review NO; Basophils Absolute Auto 100 /uL (0-100); Basophils Percent Auto 1.1 % (0-2); Eosinophils Absolute Auto 400 /uL (0-450); Eosinophils Percent Auto 5.1 % (2-4); Hematocrit 28.9 % (36-46); Hemoglobin 9.1 g/dL (12.0-16.0); Lymphocytes Absolute Auto 2500 /uL (1100-4500); Lymphocytes Percent Auto 35.2 % (25-40); Mean Corpuscular HGB Conc 31.7 % (30-36); Mean Corpuscular Hemoglobin 25.9 PG (26-34); Mean Corpuscular Volume 81.9 fL (80-100); Monocytes Absolute Auto 400 /uL (0-900); Monocytes Percent Auto 5.5 % (3-14); Neutrophils Absolute Auto 3800 /uL (1500-7000); Neutrophils Percent Auto 53.1 % (50-75); Platelet Count 505 X10^3/uL (150-400); Red Blood Cell Count 3.52 X10^6/uL (4.0-5.2); Red Cell Distribution Width 17.2 % (11.6-14.8); White Blood Cell Count 7.1 X10^3/uL (4.5-11.0)
[2022-03-25 05:25] LABS: Alanine Aminotransferase 25 IU/L (<35); Albumin 3.1 g/dL (3.5-5.0); Albumin Globulin Ratio 1.1 (1.0-2.8); Alkaline Phosphatase 95 U/L (38-126); Aspartate Aminotransferase 33 IU/L (14-36); BUN Creatinine Ratio 18.6 (6-22); Bilirubin Total 0.3 mg/dL (0.2-1.3); Bilirubin Unconjugated 0.2 mg/dL (0.0-1.1); Blood Urea Nitrogen 8 mg/dL (7-17); Calcium 7.9 mg/dL (8.4-10.2); Carbon Dioxide 23 mmol/L (22-32); Chloride 106 mmol/L (98-107); Estimated Glomerular Filt Rate > 60 mL/min (>60); Globulin 2.9 g/dL (1.7-4.1); Glucose 121 mg/dL (70-100); HEMOLYSIS < 15 (0-50); Magnesium 1.7 mg/dL (1.6-2.3); Potassium 3.9 mmol/L (3.4-5.1); Sodium 134 mmol/L (137-145)
[2022-03-25] MEDS: TRAMADOL 50 MG TABLET PO ×3 (06:22→20:00)
[2022-03-25] MEDS: INSULIN GLARGINE 100 UNIT/ML 3ML PEN SUBCUT (08:46)
[2022-03-25] MEDS: FLUTICASONE 120 SPRAY/16 GM SPRAY.SUSP NASAL (08:47)
[2022-03-25] MEDS: ENOXAPARIN 40 MG/0.4 ML SYRINGE SUBCUT (09:10)
[2022-03-25] MEDS: METOCLOPRAMIDE HCL 5 MG TABLET PO ×3 (09:10→16:51)
[2022-03-25] MEDS: cefTRIAXone 1,000 MG in SODIUM CHLORIDE 0.9% 100 ML 200 MG IV (09:10)
[2022-03-25] MEDS: MAGNESIUM CHLORIDE 64 MG TABLET 128 MG PO (10:04)
--- NOTE | 2022-03-25 10:46 | PT.IPTN ---
Current Diagnoses Sepsis, unspecified organism (03/23/22) Physical Therapy Treatment Note M2 PT-IP Current Condition Start: 03/24/22 16:34 Freq: NEEDED Status: Active Protocol: Document 03/24/22 15:25 AB (Rec: 03/24/22 16:43 AB [id number]) Physical Therapy Current Condition Current Condition Evaluation Date 03/24/22 Treatment Diagnosis UTI; hypotension; difficulty in walking Onset Date 03/23/22 M3 PT-IP Subjective Start: 03/24/22 16:34 Freq: NEEDED Status: Active Protocol: Document 03/25/22 10:28 KS (Rec: 03/25/22 11:03 KS [id number]) Subjective Physical Therapy Visit Type Type Treatment Note Visit Start Time 10:28 Visit Stop Time 10:46 Total Visit Minutes 18 Number of CHUMMER Visits 1 Physical Therapy Visit Comments Patient Comments agreeable to do PT M4 PT-IP Mobility and Gait Start: 03/24/22 16:34 Freq: NEEDED Status: Active Protocol: Document 03/25/22 10:28 KS (Rec: 03/25/22 11:03 KS [id number]) PT-Bed Mobility Assessment Supine to Sit Supine to Sit Standby Assistance Sit to Supine Sit to Supine Standby Assistance Scooting Scooting to Edge of Bed Standby Assistance PT-Transfer Assessment Sit to and From Stand Sit to and from Stand Contact Guard Assistance Equipment Transfer Assistive Device Gait Belt,Front Wheeled Walker Orthotic/Prosthetic Devices or Brace: No Transfers Transfer Destination Bed Transfer Technique Pt ambulated Transfer Ability Level of Assist Standby Assistance,Contact Guard Assistance,1 Person Assistance,Use of Upper Extremities Comments Mobility Comments Pt in bed upon arrival and agreeable to try ambulating. Pts BP 130s/80s supine, 127/83 sitting but pt reporting dizziness. Pt sit<>stand CGA w / FWW and reported increased dizziness and BP: 100s/70s. Pt reported dizziness slightly improved, but when she attempted marching in place she got more dizzy. BP taken again and remains low 100s/low 70s but pt reporting less dizziness. Ambulated ~6 ft and c/o severe dizziness and returned to bed. Pt left in bed w/ all needs in reach. Gait Assessment Gait Gait Assistance Required: Contact Guard Assist,1 Person Assist Distance (Feet) 6 Assistive Devices Assistive Device Gait Belt,Front Wheeled Walker PT-Balance Assessment Standing Balance and Reactions Static Standing Balance Ability Fair Device Used FWW M5 PT-IP Objective Assessments Start: 03/24/22 16:34 Freq: NEEDED Status: Active Protocol: Document 03/24/22 15:25 AB (Rec: 03/24/22 16:43 AB [id number]) Orientation Orientation/Cognition Level of Alertness Alert Orientation Name,Place,Situation Language Function Ability No Deficits Noted Safety Awareness Decreased Safety Awareness Memory Description No Deficits Noted Strength Lower Extremity Strength Hip 4-/5 Knee 4-/5 Coordination Assessment Gross Coordination Gross Coordination WNL Muscle Tone Muscle Tone WNL Yes M6 PT-IP Treatment Start: 03/24/22 16:34 Freq: NEEDED Status: Active Protocol: Document 03/25/22 10:28 KS (Rec: 03/25/22 11:03 KS [id number]) Physical Therapy Treatment Education Education Provided Safety M7 PT-IP Assessment and Plan Start: 03/24/22 16:34 Freq: NEEDED Status: Active Protocol: Document 03/25/22 10:28 KS (Rec: 03/25/22 11:03 KS [id number]) PT Summary Assessment and Plan Potential Rehabilitation Potential Fair Status of Condition at Evaluation Evolving Summary Impairments Pain,ROM,Strength,Balance, Coordination,Sensation,Tone, Cognition,Bed Mobility, Transfers,Gait,Activity Tolerance Assessment Summary Pt remains limited by dizziness, BP decreased from 120s/80s to 100s/70s with positional changes. Will continues to assess progress. Ambulated 6 ft but returned to bed due to dizziness. Goals Bed Mobility Goal Independent Transfer Goal Independent,Front Wheeled Walker Gait Goal Independent,Front Wheel Walker Gait Distance 150 Days to Meet Goals 10 Frequency of Treatment Frequency Of Treatment Once a Day Treatment Plan Physical Therapy Treatment Plan Bed Mobility Training,Transfer Training,Gait Training, Therapeutic Exercise,Balance Retraining,Discharge Planning, Hot or Cold Pack,Neuromuscular Re-ed,Coordination Retraining Precautions Other Precautions orthostatic hypotension Recommendations To Nursing Amount of Assist Needed 1 Person Assist Discharge Recommendations PT Discharge Recommendations Home with 24/ Assist Available,Home Health Transportation Needs at Discharge Private Vehicle
[2022-03-25] MEDS: INSULIN LISPRO 100 UNIT/ML 3ML VIAL SUBCUT ×2 (12:07→21:15)
[2022-03-25] MEDS: ONDANSETRON 4 MG/2 ML INJ IV (13:43)
--- NOTE | 2022-03-25 17:19 | PM.PN.1 ---
Subjective Subjective Date Patient Seen: 03/25/22 Interval history: Continues to have orthostasis today, with BP drop of 20 points when standing. Limited to 6 feet of ambulation with PT today. Denies chest pain or shortness of breath. She continues to feel weak. Exam Vital Signs (past 8 hours): - 03/25/22 11:50 03/25/22 12:00 Temperature 97.8 F Pulse Rate 92 H Pulse Rate [Orthostatic Lying] 89 Pulse Rate [Orthostatic Sitting] 90 Pulse Rate [Orthostatic Standing] 86 Respiratory Rate 17 Blood Pressure 144/88 H Blood Pressure [Orthostatic Lying] 124/80 Blood Pressure [Orthostatic Sitting] 114/78 Blood Pressure [Orthostatic Standing] 90/60 Pulse Oximetry 99 Oxygen Flow Rate 0 Oxygen Delivery Method Room Air Oxygen Flow Rate 0 Narrative Exam Narrative: Gen: Alert, oriented, chronically ill appearing female, appears older than stated age HEENT: normocephalic, atraumatic, conjunctiva clear, sclera non-icteric, oral mucosa pink and moist Neck: supple, full ROM, no JVD, trachea is midline Resp: Lungs CTA, non-labored breathing CV: RRR, no murmur or rubs Abd: soft, mild-suprapubic tenderness, non-distended. No CVA tenderness. Skin: no lesions or rashes, dry and intact Neuro: Alert and oriented X 4. Slight dysarthria at baseline per patient. Extremities: no edema or joint effusions Psyche: normal mood and affect. Objective Labs Result Diagrams: 03/25/22 04:50 03/25/22 04:50 Labs: Laboratory Results - last 24 hr 03/25/22 03/25/22 04:50 04:50 WBC 7.1 RBC 3.52 L Hgb 9.1 L Hct 28.9 L MCV 81.9 MCH 25.9 L MCHC 31.7 RDW 17.2 H Plt Count 505 H Neut % (Auto) 53.1 Lymph % (Auto) 35.2 [place] % (Auto) 5.5 Eos % (Auto) 5.1 H Baso % (Auto) 1.1 Neut # (Auto) 3800 Lymph # (Auto) 2500 [place] # (Auto) 400 Eos # (Auto) 400 Baso # (Auto) 100 Sodium 134 L Potassium 3.9 Chloride 106 Carbon Dioxide 23 BUN 8 Creatinine 0.43 L Estimated GFR > 60 BUN/Creatinine Ratio 18.6 Glucose 121 H D Calcium 7.9 L Magnesium 1.7 Total Bilirubin 0.3 Conjugated Bilirubin 0.0 Unconjugated Bilirubin 0.2 AST 33 ALT 25 Alkaline Phosphatase 95 Total Protein 6.0 L Albumin 3.1 L Globulin 2.9 Albumin/Globulin Ratio 1.1 COUNTS INCLUDE 234 BEDS AT THE [facility] Medical History Acute CVA (cerebrovascular accident) Alcohol intoxication Closed hip fracture COVID DKA (diabetic ketoacidoses) DKA (diabetic ketoacidosis) Fibromyalgia Gastroesophageal reflux disease Insulin dependent diabetes mellitus Lupus Osteoporosis Surgical History History of hip surgery Presence of pancreatic duct stent Family History Mother Diabetes mellitus Congestive heart failure Pancreatic cancer Father Diabetes mellitus Brother Diabetes mellitus Pancreatitis Sister Drug overdose Social History household members: family Smoking Status: Former smoker alcohol intake: current Assessment & Plan Assessment & Plan narrative: Sepsis ruled out. Urinary tract infection, acute, present on admission -She was given 2 L normal saline boluses in the emergency department and will be continued on normal saline at 150 mL/hour still given orthostatic hypotension. -She failed outpatient oral antibiotics, though had difficulty with keflex 4x daily, she does endorse taking at least twice per day. -continue ceftriaxone q24 hours x 3 days. - elevated procalcitonin indicative of bacterial infection ongoing, will continue to follow. Orthostatic hypotension, acute, present on admission - Orthostasis continues today. Likely due to dehydration, possibly from uncontrolled diabetes. Has a NAGMA, may be related to relative insulinemia, though no liz DKA on admission. Will continue IV fluids at this point as NAGMA has improved. Orthostatics very slightly better today. - Continue orthstatic vitals qshift. - Blood pressure meds will continue to hold - consider midodrine if persistent tomorrow. Diabetes type 1 poorly controlled with an A1c of 11, -Will continue to adjust long acting insulin -Medium dose correctional insulin scale ACHS -she was probably insulinemic on admission as noted above, will continue to adjust as needed. - started on reglan prior to meals for presumed gastroparesis symptoms. Chronic severe protein calorie malnutrition - continue dietary recommendations - places patient at higher morbidity and mortality risk with her infection. May be contributing to orthostasis as well. - started on reglan for presumed gastroparesis, further evaluation as outpatient recommended. Dispo: probable discharge to home once orthostatic BP and dizziness improves. Code status: Full Code as discussed with the patient who identifies her sister and daughter her surrogate and POA. X I have utilized all available immediate resources to obtain, update, or review of the patient's current medications Time Spent With Patient Critical Care time: I spent a total of [] minutes of critical care time on this patient's care today; this time is exclusive of procedural time. Quality VTE Deep Vein Thrombosis/Pulmonary Embolism Present on Admission: No
[2022-03-25] MEDS: INSULIN GLARGINE 100 UNIT/ML 3ML PEN 10 UNIT SUBCUT (21:15)
[2022-03-26] VITALS: BP 113/74; PULSE 93; RESP 18; TEMP 36.7; O2SAT 97
[2022-03-26] MEDS: MORPHINE 2 MG/ML INJ IV ×3 (00:48→12:19)
[2022-03-26 04:00] VITALS: BP 114/77; PULSE 96; RESP 18; TEMP 36.2; O2SAT 99
[2022-03-26 05:13] LABS: Add Manual Diff / Slide Review NO; Basophils Absolute Auto 100 /uL (0-100); Basophils Percent Auto 1.3 % (0-2); Eosinophils Absolute Auto 200 /uL (0-450); Eosinophils Percent Auto 3.6 % (2-4); Hematocrit 27.9 % (36-46); Hemoglobin 8.8 g/dL (12.0-16.0); Lymphocytes Absolute Auto 2300 /uL (1100-4500); Lymphocytes Percent Auto 33.2 % (25-40); Mean Corpuscular HGB Conc 31.7 % (30-36); Mean Corpuscular Hemoglobin 26.2 PG (26-34); Mean Corpuscular Volume 82.7 fL (80-100); Monocytes Absolute Auto 400 /uL (0-900); Monocytes Percent Auto 6.2 % (3-14); Neutrophils Absolute Auto 3800 /uL (1500-7000); Neutrophils Percent Auto 55.7 % (50-75); Platelet Count 501 X10^3/uL (150-400); Red Blood Cell Count 3.37 X10^6/uL (4.0-5.2); Red Cell Distribution Width 16.9 % (11.6-14.8); White Blood Cell Count 6.8 X10^3/uL (4.5-11.0)
[2022-03-26 05:33] LABS: Alanine Aminotransferase 24 IU/L (<35); Albumin Globulin Ratio 1.1 (1.0-2.8); Alkaline Phosphatase 91 U/L (38-126); Aspartate Aminotransferase 43 IU/L (14-36); BUN Creatinine Ratio 13.6 (6-22); Bilirubin Total 0.2 mg/dL (0.2-1.3); Bilirubin Unconjugated 0.2 mg/dL (0.0-1.1); Blood Urea Nitrogen 6 mg/dL (7-17); Calcium 7.8 mg/dL (8.4-10.2); Carbon Dioxide 21 mmol/L (22-32); Chloride 111 mmol/L (98-107); Estimated Glomerular Filt Rate > 60 mL/min (>60); Globulin 2.8 g/dL (1.7-4.1); Glucose 92 mg/dL (70-100); HEMOLYSIS < 15 (0-50); Magnesium 1.8 mg/dL (1.6-2.3); Potassium 3.7 mmol/L (3.4-5.1); Sodium 135 mmol/L (137-145); Total Protein 5.8 g/dL (6.3-8.2)
[2022-03-26] MEDS: ONDANSETRON 4 MG/2 ML INJ IV (05:43)
[2022-03-26] MEDS: SODIUM CHLORIDE 0.9% 1,000 ML 150 ML IV (05:53)
--- NOTE | 2022-03-26 05:55 | PC.NURSE ---
0550-Patient c/o nausea and pain. Chemistry BG 92 at 0500. Recheck at 0550 BG 74. Patient given juice and yogurt. Will recheck in 30 minutes.
[2022-03-26 08:00] VITALS: BP 130/79; PULSE 98; RESP 15; TEMP 36.6; O2SAT 98
[2022-03-26] MEDS: ENOXAPARIN 40 MG/0.4 ML SYRINGE SUBCUT (08:29)
[2022-03-26] MEDS: METOCLOPRAMIDE HCL 5 MG TABLET PO (08:29)
[2022-03-26] MEDS: INSULIN GLARGINE 100 UNIT/ML 3ML PEN SUBCUT (08:30)
--- NOTE | 2022-03-26 10:24 | PM.DS.1 ---
History of Present Illness History of Present Illness Date Patient Seen: 03/26/22 Time Patient Seen: 10:24 Chief complaint: UTI, sepsis associated hypotension Narrative: ZOFIA Awan: Valerie Garnica is a 46-year-old female with insulin-dependent diabetes and frequent admissions for diabetic ketoacidosis, CVA in July 2021, presented to the ED with dizziness lightheadedness and orthostasis.? She states that she has not felt really great for the last 2 weeks. States she has had headaches, blurred vision, nausea and vomiting, dizziness when sitting or standing, staggering around, has problems with weakness in her left leg and foot since having her stroke, and pain with urination.?Denies diarrhea or constipation, abdominal pain. She has not taken her insulin for the last 2 days and states she forgets to take it.?She was admitted February 12 through February 19 for hypotension and a UTI.? She was seen again on March 18 again for a UTI.? Both time she was discharged on Keflex.? Both time she grew E coli which were pansensitive.? He currently has a bottle of Keflex prescribed from the ED on February 02.? She says sometimes takes her Keflex sometime she has not.? EMS reported positive orthostatics. CT of the head done today was negative for any acute intracranial hemorrhage, she has a small hypodense foci in the right cerebral hemisphere which is unchanged and consistent with prior infarction in addition to seen on prior brain MRI. She is afebrile, blood pressure 137/91, heart rate 82, respiratory rate 16, oxygen saturation 96% on room air she weighs 51.9 kg with a BMI of 19.5. She had a low blood pressure of 77/50 at 8:00 a.m. this evening. WBC is within normal limits, hemoglobin and hematocrit were 10.6 and 34.9 respectively she does have elevated platelet count almost 600, D-dimer was 493, sodium 134 chloride 108 bicarb 20 BUN 18 glucose 193 A1c 11 calcium 7.5 AST 39 ALT 39 alk-phos 181, procalcitonin was 27.7, UA did indicate RBCs with a small amount of bacteria and did not meet criteria for culture, MRSA and COVID-19 PCR are reported to me by the lab to be negative. Discharge Providers Provider Date of admission: 03/23/22 23:17 Discharge Date: 03/26/22 Primary care physician: Jhonny Evans PA-C Consults: 03/24/22 09:27 Consult to Physical Therapy Evaluate & Treat Comment: Physician Instructions: Evaluate and Treat Discharge provider: Norman Orozco DO Summary Hospital Course Discharge Diagnosis: Sepsis ruled out. Urinary tract infection, acute, present on admission Orthostatic hypotension, acute, present on admission, improved Diabetes type 1 poorly controlled with an A1c of 11, Chronic severe protein calorie malnutrition Hospital Course: This is a 46-year-old female with a past medical history of type 1 diabetes who was admitted with weakness and low blood pressures. She had orthostatic hypotension with systolic blood pressures following 40 points on admission. She appeared dehydrated and was also found to have an acute cystitis. Patient was started on IV antibiotics for which she completed therapy in the hospital. She was continued on IV fluids and her orthostatic hypotension slowly began to improve. On the day of discharge, her dizziness had markedly improved and she was able to move quite a bit better. The patient was discharged home, with plan for outpatient follow-up with her primary care provider. She was advised to continue increased oral liquid intake at home for the next couple of days until her dizziness had resolved. Time Spent with Patient Time spent: Greater than 30 minutes Exam Vital Signs (past 8 hours): - 03/26/22 04:00 03/26/22 08:00 Temperature 97.2 F L 97.8 F Pulse Rate 96 H 98 H Respiratory Rate 18 15 Blood Pressure 114/77 130/79 Pulse Oximetry 99 98 Oxygen Flow Rate 0 0 Oxygen Delivery Method Room Air Oxygen Flow Rate 0 Narrative Exam Narrative: Gen: Alert, oriented, chronically ill appearing female, appears older than stated age HEENT: normocephalic, atraumatic, conjunctiva clear, sclera non-icteric, oral mucosa pink and moist Neck: supple, full ROM, no JVD, trachea is midline Resp: Lungs CTA, non-labored breathing CV: RRR, no murmur or rubs Abd: soft, nontender, non-distended. No CVA tenderness. Skin: no lesions or rashes, dry and intact Neuro: Alert and oriented X 4. Slight dysarthria at baseline per patient. Extremities: no edema or joint effusions Psyche: normal mood and affect. Objective Labs Result Diagrams: 03/26/22 05:00 03/26/22 05:00 Labs: Laboratory Results - last 24 hr 03/26/22 03/26/22 05:00 05:00 WBC 6.8 RBC 3.37 L Hgb 8.8 L Hct 27.9 L MCV 82.7 MCH 26.2 MCHC 31.7 RDW 16.9 H Plt Count 501 H Neut % (Auto) 55.7 Lymph % (Auto) 33.2 Gentry % (Auto) 6.2 Eos % (Auto) 3.6 Baso % (Auto) 1.3 Neut # (Auto) 3800 Lymph # (Auto) 2300 [place] # (Auto) 400 Eos # (Auto) 200 Baso # (Auto) 100 Sodium 135 L Potassium 3.7 Chloride 111 H Carbon Dioxide 21 L BUN 6 L Creatinine 0.44 L Estimated GFR > 60 BUN/Creatinine Ratio 13.6 Glucose 92 Calcium 7.8 L Magnesium 1.8 Total Bilirubin 0.2 Conjugated Bilirubin 0.0 Unconjugated Bilirubin 0.2 AST 43 H ALT 24 Alkaline Phosphatase 91 Total Protein 5.8 L Albumin 3.0 L Globulin 2.8 Albumin/Globulin Ratio 1.1 [facility] Medical History Acute CVA (cerebrovascular accident) Alcohol intoxication Closed hip fracture COVID DKA (diabetic ketoacidoses) DKA (diabetic ketoacidosis) Fibromyalgia Gastroesophageal reflux disease Insulin dependent diabetes mellitus Lupus Osteoporosis Surgical History History of hip surgery Presence of pancreatic duct stent Family History Mother Diabetes mellitus Congestive heart failure Pancreatic cancer Father Diabetes mellitus Brother Diabetes mellitus Pancreatitis Sister Drug overdose Social History household members: family Smoking Status: Former smoker alcohol intake: current Discharge Plan Discharge Plan Patient Disposition: Home Health Service Provider Discharge Comment: You were admitted to the hospital with weakness and dizziness. Your urine bacteria was resistant to some oral antibiotics but you improved with IV antibiotics and completed therapy here. Your BP is still a bit on the low side and drops when you stand. Take care to stand slowly and continue to drink plenty of fluids over the coming days. I recommend you stop your BP medications for at least a week, please follow up with your PCP in the next 1-2 weeks to consider restarting BP medications at that time, try to keep a log of your BP. If your BP is >160 (top number) at home a couple of times in a row over the next few weeks, I would recommend restarting a half tab of your current BP prescription daily. Discharge orders & Medications Prescriptions: Continued insulin aspart U-100 [Novolog Flexpen U-100 Insulin] 100 unit/mL Insulin Pen 0 unit Sub-Q AC Qty: 3 0RF Rx Instructions: 1-3 UNITS TID buspirone 10 mg Tablet 2 tab PO TID cyclobenzaprine 10 mg Tablet 10 mg PO TID PRN (Reason: pain) insulin glargine 100 unit/mL (3 mL) insulin pen 10 unit SUBCUT DAILY Qty: 0 0RF (DME) Test N'Go Test Strip See Rx Instructions .Route Qty: 50 0RF Rx Instructions: As directed ondansetron HCl 4 mg tablet 4 mg PO TID Label Comments: TAKE 1 TABLET BY MOUTH THREE TIMES DAILY Creon 24,000-76,000 -120,000 unit Capsule,Delayed Release(Dr/Ec) See Rx Instructions .ROUTE .COMPLEX Rx Instructions: patient says they take 800un TID, 2400un total acetaminophen 325 mg Tablet 650 mg PO Q6HR PRN (Reason: Headache) Qty: 60 0RF melatonin 3 mg Tablet 3 mg PO BEDTIME Qty: 30 0RF hydromorphone 2 mg Tablet 2 mg PO Q4HR PRN (Reason: Pain, Severe (7-10)) Qty: 30 0RF gabapentin [Neurontin] 300 mg Capsule 900 mg PO TID Qty: 90 0RF pseudoephedrine HCl 30 mg Tablet 30 mg PO Q6HR PRN (Reason: Congestion/ sinus headache) Qty: 30 0RF loratadine 10 mg Tablet 10 mg PO DAILY Qty: 30 0RF Discontinued cephalexin 500 mg capsule 2 cap PO BID gabapentin 800 mg Tablet 800 mg PO TID lisinopril 10 mg Tablet 10 mg PO DAILY Follow up/Referrals: Jhonny Evans PA-C [Primary Care Provider] - Diet/Activity/Treatments Diet: Diet as Tolerated and Carb-consistent/Diabetic Activity: As tolerated Visit Report/Discharge Packet Instructions: DI for Orthostatic Hypotension, DI for Urinary Tract Infection (UTI), How to Prevent Falls Discharge Data Primary Care Provider: Jhonny Evans Quality VTE Deep Vein Thrombosis/Pulmonary Embolism Present on Admission: No
--- NOTE | 2022-03-26 11:43 | PT.IPTN ---
Current Diagnoses Sepsis, unspecified organism (03/23/22) Physical Therapy Treatment Note M2 PT-IP Current Condition Start: 03/24/22 16:34 Freq: NEEDED Status: Active Protocol: Document 03/24/22 15:25 AB (Rec: 03/24/22 16:43 AB [id number]) Physical Therapy Current Condition Current Condition Evaluation Date 03/24/22 Treatment Diagnosis UTI; hypotension; difficulty in walking Onset Date 03/23/22 M3 PT-IP Subjective Start: 03/24/22 16:34 Freq: NEEDED Status: Active Protocol: Document 03/26/22 11:29 KS (Rec: 03/26/22 12:24 KS [id number]) Subjective Physical Therapy Visit Type Type Treatment Note Visit Start Time 11:29 Visit Stop Time 11:43 Total Visit Minutes 14 Number of SHEAR OPERATOR HELPER Visits 1 Physical Therapy Visit Comments Patient Comments agreeable to do PT M4 PT-IP Mobility and Gait Start: 03/24/22 16:34 Freq: NEEDED Status: Active Protocol: Document 03/26/22 11:29 KS (Rec: 03/26/22 12:24 KS [id number]) PT-Bed Mobility Assessment Supine to Sit Supine to Sit Standby Assistance Sit to Supine Sit to Supine Standby Assistance Scooting Scooting to Edge of Bed Standby Assistance PT-Transfer Assessment Sit to and From Stand Sit to and from Stand Contact Guard Assistance Equipment Transfer Assistive Device Gait Belt,Front Wheeled Walker Orthotic/Prosthetic Devices or Brace: No Transfers Transfer Destination Bed Transfer Technique Pt ambulated Transfer Ability Level of Assist Standby Assistance,Contact Guard Assistance,1 Person Assistance,Use of Upper Extremities Comments Mobility Comments Pt in bed upon arrival and agreeable to ambulation. Sup BP: 130/78, sitting 113/73, standin/67 and pt reporting dizziness that slowly improves. Pt ambulated ~30 ft in room w/ FWW SBA and requested to get back in bed d /t increase in dizziness again . BP standing 111/67 and then 110/69 after ambulation. Pt SBA for stand>sit>veliz and BP: 144/83. RN aware of BP and symptoms. Pt left in bed w/ all needs in reach. Gait Assessment Gait Gait Assistance Required: Contact Guard Assist,1 Person Assist Distance (Feet) 30 Assistive Devices Assistive Device Gait Belt,Front Wheeled Walker Gait Deviations General Gait Pattern Decreased Stride Length, Decreased Feet Clearance PT-Balance Assessment Sitting Balance and Reactions Static Sitting Balance Ability Normal Dynamic Sitting Balance Ability Normal Standing Balance and Reactions Static Standing Balance Ability Good Dynamic Standing Balance Ability Fair Device Used FWW M5 PT-IP Objective Assessments Start: 03/24/22 16:34 Freq: NEEDED Status: Active Protocol: Document 03/24/22 15:25 AB (Rec: 03/24/22 16:43 AB [id number]) Orientation Orientation/Cognition Level of Alertness Alert Orientation Name,Place,Situation Language Function Ability No Deficits Noted Safety Awareness Decreased Safety Awareness Memory Description No Deficits Noted Strength Lower Extremity Strength Hip 4-/5 Knee 4-/5 Coordination Assessment Gross Coordination Gross Coordination WNL Muscle Tone Muscle Tone WNL Yes M6 PT-IP Treatment Start: 03/24/22 16:34 Freq: NEEDED Status: Active Protocol: Document 03/26/22 11:29 KS (Rec: 03/26/22 12:24 KS [id number]) Physical Therapy Treatment Education Education Provided Safety M7 PT-IP Assessment and Plan Start: 03/24/22 16:34 Freq: NEEDED Status: Active Protocol: Document 03/26/22 11:29 KS (Rec: 03/26/22 12:24 KS [id number]) PT Summary Assessment and Plan Potential Rehabilitation Potential Fair Status of Condition at Evaluation Evolving Summary Impairments Pain,ROM,Strength,Balance, Coordination,Sensation,Tone, Cognition,Bed Mobility, Transfers,Gait,Activity Tolerance Assessment Summary Pt continues to require only SBA to CGA for mobility, but is still exeperiencing dizziness which is limiting her mobility. She was able to ambulate ~30 ft w/ FWW but then had to return to bed due to dizziness that subsided when supine. Goals Bed Mobility Goal Independent Transfer Goal Independent,Front Wheeled Walker Gait Goal Independent,Front Wheel Walker Gait Distance 150 Days to Meet Goals 10 Frequency of Treatment Frequency Of Treatment Once a Day Treatment Plan Physical Therapy Treatment Plan Bed Mobility Training,Transfer Training,Gait Training, Therapeutic Exercise,Balance Retraining,Discharge Planning, Hot or Cold Pack,Neuromuscular Re-ed,Coordination Retraining Precautions Other Precautions orthostatic hypotension Recommendations To Nursing Amount of Assist Needed 1 Person Assist Discharge Recommendations PT Discharge Recommendations Home with 11/04 Assist Available,Home Health Transportation Needs at Discharge Private Vehicle
[2022-03-26] MEDS: ACETAMINOPHEN 325 MG TABLET 975 MG PO (12:19)
[2022-03-26 14:00] VITALS: BP 113/74; BP 114/74; BP 130/74; PULSE 100; PULSE 89; PULSE 97
--- NOTE | 2022-03-26 14:33 | CM.DPNOTE ---
DC Note Home w/family and resumption of keshav GIPSNO
--- NOTE | 2022-03-26 16:26 | PC.NURSE ---
Discharge: Pt feels ready to d/c to home. Tolerates diet w/out problems. Reports pain is controlled. Denies burning with urination or other sxs of uti. Reviewed discharge packet. Questions answered. Pt d/c to home via auto with sister, voiced no concerns.
== END 2022-03-26 15:40 | disposition home health service (06) | DRG 689 ==
LOC: ED 22:25 → AC 23:17 → ICU 23:20
PROVIDERS: Emergency Medicine; Admitting Provider Nurse Practitioner Family; Emergency Provider Emergency Medicine; PCP Physician Assistant; Referring Provider Nurse Practitioner Family; Visit Provider Nurse Practitioner Family
DX: N39.0 Urinary tract infection, site not specified (principal); E43 Unspecified severe protein-calorie malnutrition; Z68.1 Body mass index [BMI] 19.9 or less, adult; I95.1 Orthostatic hypotension; E87.5 Hyperkalemia; E10.65 Type 1 diabetes mellitus with hyperglycemia; E86.0 Dehydration; Z87.891 Personal history of nicotine dependence; Z20.822 Contact with and (suspected) exposure to COVID-19
CPT/HCPCS: 36415; 70450; 80048; 80053; 80076; 81015; 82009; 82550; 82962; 83036; 83605; 83735; 84145; 84484; 85025; 85379; 87040; 87077; 87086; 87186; 87635; 87797; 93005; 93010; 94762; 96361; 96365; 96375; 97162; 97530; 99284; C9803; J0696; J1650; J1815; J1885; J2270; J2405; J2543

== ENCOUNTER 2022-05-31 13:06 | Inpatient (IN) | payer MEDICAID, OTHER, SELFPAY ==
[2022-03-23 23:18] VITALS: BMI 19.5
[2022-05-31] VITALS (56 sets, daily range): BP systolic 75–103; BP diastolic 44–62; PULSE 100–112; RESP 12–28; TEMP 36.2–36.5; O2SAT 97–100; BMI 19.5
--- NOTE | 2022-05-31 13:13 | ED.NAVMDI ---
HPI - Nausea/Vomiting/Diarrhea General Chief complaint: Weakness Stated complaint: N/V, weakness, body aches Time Seen by Provider: 05/31/22 13:12 Source: patient, EMS and old records reviewed Mode of arrival: EMS Limitations: no limitations History of Present Illness HPI Narrative: 46-year-old female with known insulin-dependent diabetes and has had DKA in the past, CVA who states she was started on Eliquis in the past month for heart murmur. Patient presents today with several days to a week of nausea and vomiting and increasing weakness. Patient states she has a headache today which she describes as coming from her neck up to her head. She denies any fevers or chills. She has had occasional chest pain or pressure but not currently. She denies any shortness of breath except with exertion. She denies hematemesis. She is had abdominal pain in the lower abdomen which she states is new. She is had increase in her lower back and hip pain which she states is increased but has not changed in character or location. Patient denies any diarrhea or constipation. Denies any black or bloody stools. Denies dysuria urgency or frequency. She is felt she is felt increasingly weak and dizzy when trying to walk around the house. Patient has had prior admissions for DKA, elevated glucose as well as bacterial infections. She denies any new surgeries. She arrives via EMS was noted to be hypotensive with orthostatic hypotension in the field. Related Data Home Medications Medication Instructions Recorded Confirmed buspirone 10 mg tablet 2 tab PO TID 12/08/18 05/31/22 cyclobenzaprine 10 mg tablet 10 mg PO TID PRN pain 12/08/18 05/31/22 [id number] See Rx Instructions .Route .COMPLEX 02/14/22 05/31/22 24,000-76,000-120,000 unit capsule,delayed rel (Creon) ondansetron HCl 4 mg tablet 4 mg PO TID 02/14/22 05/31/22 apixaban 5 mg tablet (Eliquis) 5 mg PO BID 05/31/22 05/31/22 gabapentin 400 mg capsule 800 mg PO QID 05/31/22 05/31/22 Previous Rx's Medication Instructions Recorded insulin aspart U-100 100 unit/mL 0 unit (0 mL) SUBCUT AC #3 units 02/12/18 (3 mL) subcutaneous pen (Novolog Flexpen U-100 Insulin aspart) insulin glargine 100 unit/mL (3 10 unit (0.1 mL) SUBCUT DAILY #0 mL 12/09/21 mL) subcutaneous pen acetaminophen 325 mg tablet 650 mg PO Q6HR PRN Headache #60 02/19/22 tabs loratadine 10 mg tablet 10 mg PO DAILY #30 tabs 02/19/22 melatonin 3 mg tablet 3 mg PO BEDTIME #30 tabs 02/19/22 pseudoephedrine HCl 30 mg tablet 30 mg PO Q6HR PRN Congestion/ 02/19/22 sinus headache #30 tabs Allergies Allergy/AdvReac Type Severity Reaction Status Date / Time amitriptyline Allergy Intermediate Verified 05/31/22 13:21 sulfasalazine [SULFASALAZINE] Allergy Mild PANCREATITI Verified 05/31/22 13:21 S trazodone AdvReac Intermediate HEART Verified 05/31/22 13:21 PALPITATIONS Review of Systems Review of Systems ROS Unobtainable: All systems reviewed & are unremarkable except as noted in HPI and below Patient History Medical History (Updated 05/31/22 @ 19:49 by Kirsten Saldivar DO) Acute CVA (cerebrovascular accident) Alcohol intoxication Chronic atrial fibrillation with RVR Closed hip fracture COVID DKA (diabetic ketoacidoses) DKA (diabetic ketoacidosis) Fibromyalgia Gastroesophageal reflux disease Insulin dependent diabetes mellitus Lupus Osteoporosis Surgical History History of hip surgery Presence of pancreatic duct stent Family History Mother Diabetes mellitus Congestive heart failure Pancreatic cancer Father Diabetes mellitus Brother Diabetes mellitus Pancreatitis Sister Drug overdose Social History household members: family Smoking Status: Current every day smoker alcohol intake: never Smoking Status: Former smoker alcohol intake frequency: holidays/special occasions only Substance Use Type: marijuana Exam Narrative Exam Narrative: GEN: Thin chronically ill-appearing appearing female appears older than her stated age, alert and oriented x 3, patient appears to be in mild distress. HEENT: Atraumatic, pupils are equal round reactive to light, extraocular movements are intact, nares are clear. Throat is clear without any exudates, erythema, tonsillar enlargement or uvular deviation, no facial droop, normal range of motion of neck, no meningeal signs. HEART: Regular rate and rhythm without murmur, clicks, rubs. No carotid bruits, pulses are equal in upper and lower extremities LUNGS:Lungs clear to auscultation, no wheezes, rales, crackles, chest moves symmetrically, no tachypnea accessory muscle use. ABD:bowel sounds normal, soft, non-tender, no guarding, rebound, rigidity, no masses noted, no hepatosplenomegaly, nondistended. : Very mild right CVA tenderness, no left CVA tenderness MSCL: Non-tender, no muscle atrophy, muscles strength 5/5 upper and lower extremities, full range of motion, normal gait NEURO:CN 2-12 intact, sensation normal SKIN: No rash, erythema or other skin changes. Initial Vital Signs Initial Vital Signs: Vital Signs Blood Pressure 81/58 L 05/31/22 13:11 Course Orders Ordered: ED Orders 05/31/22 13:10 COVID19 -Nasal RAPID/Pre-Proc Stat 05/31/22 13:20 CT abdomen pelvis w con Stat CT head/brain wo con Stat 05/31/22 13:32 Chest [XR chest 1V] Stat 05/31/22 13:35 EKG-12 Lead Routine 05/31/22 13:50 Comprehensive Metabolic Panel Stat Thyroid Stimulating Hormone Stat 05/31/22 13:58 Blood Culture Stat Ketones (Beta-Hydroxybutyrate) Stat Lipase Stat Troponin & CK Cardiac Panel Stat 05/31/22 14:02 VBG [Venous Blood Gas] Stat 05/31/22 16:55 Lactate (Lactic Acid) Stat Procalcitonin Stat 05/31/22 17:07 Complete Blood Count AUTO DIFF Stat 05/31/22 17:17 Blood Culture Stat Acetaminophen (Acetaminophen 325 Mg Tablet) 650 mg PO Q6HR PRN PRN Reason: Fever/Mild Pain (1-3) Apixaban (Apixaban 5 Mg Tablet) 5 mg PO BID JOSE ANTONIO Buspirone HCl (Buspirone 5 Mg Tablet) 20 mg PO TID JOSE ANTONIO Cyclobenzaprine HCl (Cyclobenzaprine 10 Mg Tablet) 10 mg PO TID PRN PRN Reason: pain Fentanyl (Fentanyl 100 Mcg/2 Ml Inj) 25 mcg IV Q1H PRN PRN Reason: Pain, Severe (7-10) Last Admin: 05/31/22 18:57 Dose: 25 mcg Documented By: Admin: 05/31/22 14:31 Dose: 25 mcg Documented By: BRENDA Fentanyl (Fentanyl 100 Mcg/2 Ml Inj) 25 mcg IV Q1H PRN PRN Reason: Pain, Severe (7-10) Gabapentin (Gabapentin 400 Mg Capsule) 800 mg PO QID JOSE ANTONIO Hydromorphone HCl (Hydromorphone 0.5 Mg Inj) 0.5 mg IV Q3H PRN PRN Reason: Pain, Moderate (4-6) Potassium Acetate 40 meq/ (Dextrose/Sodium Chloride) 1,020 mls @ 200 mls/hr IV CONT JOSE ANTONIO Stop: 05/31/22 21:15 Last Admin: 05/31/22 17:58 Dose: 200 mls/hr Documented By: INSULIN DRIP PREMIX (Myxredlin Drip Premix) 100 unit in 100 mls @ 2 mls/hr IV TITRATE JOSE ANTONIO; Protocol Last Admin: 05/31/22 20:08 Dose: 2.43 mls/hr, 2.43 mls/hr Documented By: MONICA Co-signed By: GABI Piperacillin Sod/Tazobactam (Sod 3.375 gm/ Sodium Chloride) 100 mls @ 25 mls/hr IV Q8H JOSE ANTONIO Dextrose/Sodium Chloride (Dextrose 5%-0.9% Ns) 1,000 mls @ 150 mls/hr IV CONT JOSE ANTONIO Loratadine (Loratadine 10 Mg Tablet) 10 mg PO DAILY JOSE ANTONIO Melatonin (Melatonin 3 Mg Tablet) 3 mg PO BEDTIME JOSE ANTONIO Ondansetron HCl (Ondansetron 4 Mg/2 Ml Inj) 4 mg IV Q6HR PRN PRN Reason: Nausea And Vomiting Discontinued Medications Sodium Chloride (Normal Saline 0.9%) 1,000 mls @ 1,000 mls/hr IV BOLUS ONE Stop: 05/31/22 14:19 Last Infusion: 05/31/22 14:39 Dose: 0 mls/hr Documented By: Admin: 05/31/22 13:30 Dose: 1,000 mls/hr Documented By: AT Sodium Chloride (Normal Saline 0.9%) 1,000 mls @ 1,000 mls/hr IV BOLUS ONE Stop: 05/31/22 15:46 Last Infusion: 05/31/22 17:12 Dose: 0 mls/hr Documented By: Admin: 05/31/22 14:49 Dose: 1,000 mls/hr Documented By: AT Piperacillin Sod/Tazobactam (Sod 4.5 gm/ Sodium Chloride) 100 mls @ 200 mls/hr IV NOW ONE Stop: 05/31/22 15:57 Last Infusion: 05/31/22 17:12 Dose: 0 mls/hr Documented By: Admin: 05/31/22 16:18 Dose: 200 mls/hr Documented By: BRENDA Dextrose/Sodium Chloride (Dextrose 5%-0.45% Ns) 1,000 mls @ 200 mls/hr IV CONT JOSE ANTONIO Last Admin: 05/31/22 17:59 Dose: Not Given Documented By: Ondansetron HCl (Ondansetron 4 Mg/2 Ml Inj) 4 mg IV NOW ONE Stop: 05/31/22 13:21 Last Admin: 05/31/22 14:27 Dose: 4 mg Documented By: BRENDA Consultations Consultation #1: Dr. Mohamud, hospitalist. Patient presents today tachycardic, hypotensive normal glucose but otherwise meet DKA criteria with ketones, anion gap of 22, low bicarb and acidosis. We have had significant difficulty obtaining a CBC. Are still attempting to draw head CT was negative patient had complaint of headache, imaging workup shows possible infection and kidney versus cholecystitis she had some left-sided abdominal discomfort but no right-sided on exam. Unclear if infection is the source of her symptoms today this is chronically ill female who has frequent hospitalizations. He accepts for admission Zosyn was initiated. Urine sample is still pending. Plan to initiate D5 with potassium as K is 4 and will initiate insulin an hour or so after this. Plan for ICU admission. Vital Signs Vital signs: Vital Signs - 8 hr 05/31/22 13:16 05/31/22 13:11 05/31/22 13:12 Temperature 97.7 F Pulse Rate 112 H 109 H Respiratory Rate 20 24 Blood Pressure 78/52 L 81/58 L Pulse Oximetry 98 98 Oxygen Delivery Method Room Air 05/31/22 13:16 05/31/22 13:16 05/31/22 13:20 Temperature Pulse Rate 109 H 109 H Respiratory Rate 12 19 Blood Pressure 78/53 L Pulse Oximetry 100 100 Oxygen Delivery Method 05/31/22 13:20 05/31/22 13:25 05/31/22 13:25 Temperature Pulse Rate 108 H Respiratory Rate 24 Blood Pressure 86/55 L 83/55 L Pulse Oximetry 100 Oxygen Delivery Method 05/31/22 13:30 05/31/22 13:30 05/31/22 13:35 Temperature Pulse Rate 108 H Respiratory Rate 23 Blood Pressure 86/56 L 87/57 L Pulse Oximetry 100 Oxygen Delivery Method 05/31/22 13:35 05/31/22 14:00 05/31/22 14:00 Temperature Pulse Rate 107 H 111 H Respiratory Rate 20 25 H Blood Pressure 94/58 L Pulse Oximetry 100 100 Oxygen Delivery Method Room Air 05/31/22 14:02 05/31/22 14:02 05/31/22 14:05 Temperature Pulse Rate 110 H Respiratory Rate 26 H Blood Pressure 95/61 93/56 L Pulse Oximetry 100 Oxygen Delivery Method 05/31/22 14:05 05/31/22 14:26 05/31/22 14:26 Temperature Pulse Rate 109 H 106 H Respiratory Rate 22 20 Blood Pressure 88/53 L Pulse Oximetry 100 100 Oxygen Delivery Method Room Air 05/31/22 14:30 05/31/22 14:30 05/31/22 14:35 Temperature Pulse Rate 104 H 106 H Respiratory Rate 25 H 23 Blood Pressure 86/55 L Pulse Oximetry 100 100 Oxygen Delivery Method 05/31/22 14:35 05/31/22 14:40 05/31/22 14:40 Temperature Pulse Rate 104 H Respiratory Rate 18 Blood Pressure 87/57 L 90/53 L Pulse Oximetry 100 Oxygen Delivery Method Room Air 05/31/22 14:45 05/31/22 14:45 05/31/22 14:50 Temperature Pulse Rate 106 H Respiratory Rate 21 Blood Pressure 96/57 L 90/55 L Pulse Oximetry 100 Oxygen Delivery Method 05/31/22 14:50 05/31/22 15:06 05/31/22 15:07 Temperature Pulse Rate 105 H 103 H Respiratory Rate 22 Blood Pressure 88/52 L Pulse Oximetry 100 100 Oxygen Delivery Method 05/31/22 15:07 05/31/22 15:10 05/31/22 15:10 Temperature Pulse Rate 104 H 105 H Respiratory Rate 22 23 Blood Pressure 88/56 L Pulse Oximetry 100 100 Oxygen Delivery Method 05/31/22 15:15 05/31/22 15:15 05/31/22 15:20 Temperature Pulse Rate 108 H Respiratory Rate 23 Blood Pressure 88/61 L 93/59 L Pulse Oximetry 97 Oxygen Delivery Method 05/31/22 15:20 05/31/22 15:25 05/31/22 15:25 Temperature Pulse Rate 109 H 109 H Respiratory Rate 20 20 Blood Pressure 94/60 Pulse Oximetry 100 100 Oxygen Delivery Method 05/31/22 15:30 05/31/22 15:30 05/31/22 15:35 Temperature Pulse Rate 110 H 111 H Respiratory Rate 18 18 Blood Pressure 96/59 L Pulse Oximetry 100 100 Oxygen Delivery Method 05/31/22 15:35 05/31/22 15:40 05/31/22 15:40 Temperature Pulse Rate 109 H Respiratory Rate 19 Blood Pressure 97/60 90/58 L Pulse Oximetry 100 Oxygen Delivery Method 05/31/22 15:45 05/31/22 15:45 05/31/22 15:50 Temperature Pulse Rate 109 H 109 H Respiratory Rate 19 22 Blood Pressure 90/58 L Pulse Oximetry 100 100 Oxygen Delivery Method 05/31/22 15:50 05/31/22 16:00 Temperature Pulse Rate 107 H Respiratory Rate 20 Blood Pressure 94/55 L Pulse Oximetry 100 Oxygen Delivery Method MDM - Nausea/Vomiting/Diarrhea Lab Data Result diagrams: 05/31/22 17:07 05/31/22 13:50 Labs: Lab Results 05/31/22 05/31/22 05/31/22 Range/Units 13:10 13:50 13:50 VBG pH (7.33-7.43) VBG pCO2 (45-50) mmHg VBG pO2 (35-45) mmHg VBG HCO3 (23-28) mmol/L VBG Total CO2 (24-29) mmol/L VBG O2 Saturation (70-75) % VBG Base Excess (0-4) mmol/L Sodium 137 (137-145) mmol/L Potassium 4.1 (3.4-5.1) mmol/L Chloride 109 H (98-107) mmol/L Carbon Dioxide 6 L* (22-32) mmol/L BUN 37 H (7-17) mg/dL Creatinine 1.14 H (0.52-1.04) mg/dL Estimated GFR > 60 (>60) mL/min BUN/Creatinine Ratio 32.5 H (6-22) Glucose 122 H (70-100) mg/dL Calcium 7.8 L (8.4-10.2) mg/dL Total Bilirubin 0.3 (0.2-1.3) mg/dL AST 23 (14-36) IU/L ALT 14 (<35) IU/L Alkaline Phosphatase 189 H (38-126) U/L Total Creatine Kinase (30-135) U/L CK-MB (CK-2) CK-MB (CK-2) Rel Index Troponin I (0.01-0.034) ng/mL Total Protein 6.0 L (6.3-8.2) g/dL Albumin 2.9 L (3.5-5.0) g/dL Globulin 3.1 (1.7-4.1) g/dL Albumin/Globulin Ratio 0.9 L (1.0-2.8) Lipase (23-300) U/L TSH 1.62 (0.47-4.68) uIU/mL Urine Color Urine Appearance Urine pH (4.5-8.0) Ur Specific [place] (1.000-1.035) Urine Protein (Negative) Urine Glucose (UA) (Negative) g/dL Urine Ketones (NEGATIVE) Urine Occult Blood (Negative) Urine Nitrate (Negative) Urine Bilirubin (NEGATIVE) Urine Urobilinogen (0.2) E.U./dL Ur Leukocyte Esterase (NEGATIVE) Urine RBC (0-5/HPF) Urine WBC (0-5/HPF) Ur Squamous Epith Cells (0-5/HPF) Ur Transition Epith Cell (0-5/HPF) Urine Bacteria (None) Ur Culture Indicated? Ketones (<0.27) mmol/L SARS-CoV-2 (PCR) Negative (Negative) 05/31/22 05/31/22 05/31/22 Range/Units 13:58 14:02 15:17 VBG pH 7.19 L* (7.33-7.43) VBG pCO2 21.7 L (45-50) mmHg VBG pO2 50 H (35-45) mmHg VBG HCO3 8 L (23-28) mmol/L VBG Total CO2 9 L (24-29) mmol/L VBG O2 Saturation 76 H (70-75) % VBG Base Excess -20.0 L (0-4) mmol/L Sodium (137-145) mmol/L Potassium (3.4-5.1) mmol/L Chloride (98-107) mmol/L Carbon Dioxide (22-32) mmol/L BUN (7-17) mg/dL Creatinine (0.52-1.04) mg/dL Estimated GFR (>60) mL/min BUN/Creatinine Ratio (6-22) Glucose (70-100) mg/dL Calcium (8.4-10.2) mg/dL Total Bilirubin (0.2-1.3) mg/dL AST (14-36) IU/L ALT (<35) IU/L Alkaline Phosphatase (38-126) U/L Total Creatine Kinase < 20 L (30-135) U/L CK-MB (CK-2) TNP CK-MB (CK-2) Rel Index TNP Troponin I < 0.012 (0.01-0.034) ng/mL Total Protein (6.3-8.2) g/dL Albumin (3.5-5.0) g/dL Globulin (1.7-4.1) g/dL Albumin/Globulin Ratio (1.0-2.8) Lipase < 10 L (23-300) U/L TSH (0.47-4.68) uIU/mL Urine Color Yellow Urine Appearance Cloudy Urine pH 5.0 (4.5-8.0) Ur Specific [place] 1.010 (1.000-1.035) Urine Protein 1+ H (Negative) Urine Glucose (UA) Negative (Negative) g/dL Urine Ketones 1+ H (NEGATIVE) Urine Occult Blood 3+ H (Negative) Urine Nitrate Positive H (Negative) Urine Bilirubin Negative (NEGATIVE) Urine Urobilinogen 0.2 (0.2) E.U./dL Ur Leukocyte Esterase 2+ H (NEGATIVE) Urine RBC None seen (0-5/HPF) Urine WBC 30-100/hpf H (0-5/HPF) Ur Squamous Epith Cells 0-1 /hpf (0-5/HPF) Ur Transition Epith Cell 0-1/hpf (0-5/HPF) Urine Bacteria Many (>30) H (None) Ur Culture Indicated? Specimen cultured Ketones 3.22 H (<0.27) mmol/L SARS-CoV-2 (PCR) (Negative) Point of Care Testing Glucose POC 160 ECG Data Attestation: I personally reviewed and interpreted this ECG as follows: Prior ECG tracings: available for review Interpretation: Sinus tachycardia rate of 108 MI 144 QRS is 78 QTC 493. No acute ST changes appreciated patient has prior from 03/23/2022 which appears similar. MDM Narrative Medical decision making narrative: This is a 46-year-old female with multiple medical issues, insulin-dependent diabetes, possible prior strokes who is with complaint of headache which is atraumatic, persistent nausea and vomiting for the past several days to week glucose in the field was 190. Patient is hypotensive, tachycardic but afebrile in the department. Patient did respond to fluid bolus with some improvement she received over 30 cc/kilos with 2 L total bolus. Patient initial CBC was quite difficult to obtain but she has normal glucose but otherwise meet DKA criteria with ketones, bicarb of 6, anion gap of 22 and acidosis on VBG. Patient's creatinine 1.14 increased from priors, as well as a BUN of 37 suggesting some component of dehydration as well. Troponin is negative, TSH obtained. Blood culture, CBC and procalcitonin attempting be obtained 2nd access via DI is also process being placed patient after discussion with hospitalist she has possible infection and kidney, cholecystitis although nontender on exam on her right upper quadrant but does have some complaint of left-sided pain. Patient has had persistent nausea and vomiting for several days likely contributing to her symptoms well. Urine sample has not been obtained as of yet. Antibiotics were initiated. Patient accepted in intensive care unit with plan to start D5 half-normal supplement potassium and treat similar to a DKA and start insulin drip about an hour after D5 is started. Critical Care Time Critical Care Time Critical Care Time: Yes Total Critical Care Time: 45 Attestation: The high probability of a clinically significant, sudden or life threatening deterioration of the [cardiac, endocrine] system(s) required my full and direct attention, intervention and personal management. The aggregate critical care time was [] minutes. This time is in addition to time spent performing reported procedures but includes the following: [x] Data Review and interpretation [x] Patient assessment and monitoring of vital signs [x] Documentation [x] Medication orders and management Discharge Plan Departure Patient Disposition: Admitted As Inpatient Clinical Impression: Sepsis secondary to UTI, Diabetic keto-acidosis, Hypotension Admit Date/Time: 05/31/22 16:08 Admit Provider: Ras Mohamud
--- NOTE | 2022-05-31 13:20 | DI.CT.S_ITS ---
PROCEDURE: CT ABDOMEN PELVIS W CON INDICATIONS: n/v TECHNIQUE: After the administration of intravenous contrast, axial sections acquired from the lung bases to the pubic symphysis. Coronal and sagittal reformats were performed. For radiation dose reduction, the following was used: automated exposure control, adjustment of mA and/or kV according to patient size. COMPARISON: [facility], CT, CT ABDOMEN PELVIS W CON, 02/08/2018, 17:27. FINDINGS: Image quality: Excellent. Lung bases: Unremarkable. Heart: No significant findings. ABDOMEN: Liver: Unremarkable. Gallbladder: Is distended and thick walled, with a wall thickness of 7 mm. Biliary ducts: Unremarkable. Pancreas: Diffuse atrophy of the pancreas. Multiple calcifications within the pancreatic head and neck. Spleen: Unremarkable. Adrenal Glands: Unremarkable. Kidneys and Ureters: Left kidney is within normal limits. There is a complex peripherally enhancing focus within the superior pole right kidney measuring 36 mm. Complex peripherally enhancing focus within the right interpolar kidney posteriorly measuring 25 mm. Subcapsular low-density focus within the right interpolar kidney posteriorly measuring 20 mm. Stomach and Bowel: Stomach, small bowel loops, and colon are unremarkable. Normal appendix. Peritoneum: No abnormal intraperitoneal fluid. No free air. Ventral Wall: No hernias. Abdominal Nodes: No retroperitoneal or mesenteric adenopathy by size criteria. Vessels: Aorta and inferior vena cava are normal in size. PELVIS: Pelvic Organs: Unremarkable. Bladder: Urinary bladder demonstrates a trabeculated appearance. Pelvic Nodes: No enlarged lymph nodes. Miscellaneous: No hernias are seen. Bones: Bilateral L5-S1 pars interarticularis defects are present.. IMPRESSION: 1. Low-density lesions within the right kidney, consistent with infection versus neoplasm. 2. The gallbladder is thick walled and distended, possibly indicating cholecystitis. This could be further assessed with ultrasound, if clinically indicated. 3. Chronic pancreatitis. 4. Normal appendix. 5. Findings consistent with sequelae of chronic bladder outlet obstruction. Dictated by: Maura Barron M.D. on 05/31/2022 at 15:32 Approved by: Maura Barron M.D. on 05/31/2022 at 15:35
--- NOTE | 2022-05-31 13:20 | DI.CT.S_ITS ---
PROCEDURE: CT HEAD/BRAIN WO CON INDICATIONS: headache, on eliquis TECHNIQUE: Noncontrast 4.5 mm thick angled axial sections acquired from the foramen magnum to the vertex, with coronal and sagittal reformats. For radiation dose reduction, the following was used: automated exposure control, adjustment of mA and/or kV according to patient size. COMPARISON: [facility], CT, CT HEAD/BRAIN WO CON, 03/23/2022, 15:41. FINDINGS: Image quality: Excellent. CSF spaces: Basal cisterns are patent. No extra-axial fluid collections. The ventricles are symmetric in size and shape. Brain: No intracranial bleeds or masses. No change in small chronic right frontoparietal lobe infarcts. There is cerebral volume loss for age, with resultant ventricular and sulcal prominence. There are periventricular and deep white matter chronic small vessel ischemic changes. There is intracranial internal carotid artery atherosclerosis. Skull and face: Calvarium and visualized facial bones appear intact, without suspicious lesions. Sinuses: Visualized sinuses and mastoids are clear. IMPRESSION: No acute intracranial abnormality. Small chronic right frontal parietal lobe infarcts. Dictated by: Maura Barron M.D. on 05/31/2022 at 15:31 Approved by: Maura Barron M.D. on 05/31/2022 at 15:31
[2022-05-31] MEDS: SODIUM CHLORIDE 0.9% 1,000 ML 1000 ML IV ×2 (13:30→14:49)
--- NOTE | 2022-05-31 13:32 | DI.RAD.S_ITS ---
PROCEDURE: XR CHEST 1V INDICATIONS: n/v, shortness of breath, weak TECHNIQUE: One view of the chest was acquired. COMPARISON: [facility], CR, XR CHEST FOR PICC 1V, 02/14/2022, 11:44. FINDINGS: Surgical changes and devices: None. Lungs and pleura: Lungs are clear. No pleural effusions or pneumothorax. Mediastinum: Mediastinal contours appear normal. Heart size is normal. Bones and chest wall: No suspicious bony lesions. Overlying soft tissues appear unremarkable. IMPRESSION: No acute process. Dictated by: Maura Barron M.D. on 05/31/2022 at 14:47 Approved by: Maura Barron M.D. on 05/31/2022 at 14:47
[2022-05-31 14:12] LABS: HCO3 VBG 8 mmol/L (23-28); Oxygen Saturation VBG 76 % (70-75); PCO2 VBG 21.7 mmHg (45-50); PO2 VBG 50 mmHg (35-45); Total CO2 VBG 9 mmol/L (24-29); pH VBG 7.19 (7.33-7.43)
[2022-05-31 14:27] LABS: COVID19 -Nasal RAPID Negative (Negative)
[2022-05-31] MEDS: ONDANSETRON 4 MG/2 ML INJ IV ×2 (14:27→20:42)
[2022-05-31] MEDS: fentaNYL 100 MCG/2 ML INJ 25 MCG IV ×2 (14:31→18:57)
[2022-05-31 14:38] LABS: Alanine Aminotransferase 14 IU/L (<35); Albumin 2.9 g/dL (3.5-5.0); Albumin Globulin Ratio 0.9 (1.0-2.8); Alkaline Phosphatase 189 U/L (38-126); Aspartate Aminotransferase 23 IU/L (14-36); BUN Creatinine Ratio 32.5 (6-22); Bilirubin Total 0.3 mg/dL (0.2-1.3); Blood Urea Nitrogen 37 mg/dL (7-17); Calcium 7.8 mg/dL (8.4-10.2); Chloride 109 mmol/L (98-107); Estimated Glomerular Filt Rate > 60 mL/min (>60); Globulin 3.1 g/dL (1.7-4.1); Glucose 122 mg/dL (70-100); HEMOLYSIS 25 (0-50); Potassium 4.1 mmol/L (3.4-5.1); Sodium 137 mmol/L (137-145)
[2022-05-31 14:39] LABS: Creatine Kinase < 20 U/L (30-135)
[2022-05-31 14:42] LABS: Lipase < 10 U/L (23-300)
[2022-05-31 14:50] LABS: Carbon Dioxide 6 mmol/L (22-32)
[2022-05-31 14:52] LABS: Troponin I < 0.012 ng/mL (0.01-0.034)
[2022-05-31 15:01] LABS: Ketones (Beta-Hydroxybutyrate) 3.22 mmol/L (<0.27)
[2022-05-31 15:12] LABS: Thyroid Stimulating Hormone 1.62 uIU/mL (0.47-4.68)
[2022-05-31] MEDS: PIPERACILLIN/TAZO 4.5 GM in SODIUM CHLORIDE 0.9% 100 ML IV (16:18)
--- NOTE | 2022-05-31 16:46 | PC.NURSE ---
Pt is a difficult stick, lab techs attempted to gather all blood work unsuccessfully, RN unable to obtain another line. Dr Janna bueno, TORRES Chanel at bedside.
[2022-05-31 17:15] LABS: Add Manual Diff / Slide Review NO; Basophils Absolute Auto 100 /uL (0-100); Basophils Percent Auto 0.3 % (0-2); Eosinophils Absolute Auto 0 /uL (0-450); Eosinophils Percent Auto 0.1 % (2-4); Hematocrit 29.9 % (36-46); Hemoglobin 9.4 g/dL (12.0-16.0); Lymphocytes Absolute Auto 1000 /uL (1100-4500); Lymphocytes Percent Auto 4.6 % (25-40); Mean Corpuscular HGB Conc 31.4 % (30-36); Mean Corpuscular Hemoglobin 25.2 PG (26-34); Mean Corpuscular Volume 80.4 fL (80-100); Monocytes Absolute Auto 700 /uL (0-900); Monocytes Percent Auto 3.3 % (3-14); Neutrophils Absolute Auto 19100 /uL (1500-7000); Neutrophils Percent Auto 91.7 % (50-75); Platelet Count 593 X10^3/uL (150-400); Red Blood Cell Count 3.72 X10^6/uL (4.0-5.2); Red Cell Distribution Width 20.7 % (11.6-14.8); White Blood Cell Count 20.8 X10^3/uL (4.5-11.0)
[2022-05-31 17:29] LABS: Lactate (Lactic Acid) 0.8 mmol/L (0.7-2.1)
[2022-05-31 17:45] LABS: Anisocytosis 2+; Burr Cells 1+
[2022-05-31 17:46] LABS: Ovalocytes 1+
[2022-05-31] MEDS: POTASSIUM ACETATE IV (17:58)
[2022-05-31] MEDS: DEXTROSE IV (17:58)
[2022-05-31] MEDS: [UNRECOGNIZED DRUG - OTHER] IV (17:58)
--- NOTE | 2022-05-31 17:59 | PM.CN.EICU ---
History of Present Illness Consult details IF CAMERA ACTIVATED, patient seen via real-time interactive audiovisual communication: Camera activated Date Patient Seen: 05/31/22 Chief complaint: N/V, weakness, body aches Reason for consult: DKA Requesting provider: Ras Mohamud Consent obtained for tele-benefit director care: Yes Patient Location: ICU Provider location (State): [place] Other participants/roles: RN Narrative: Patient is a 46 year old female with history of IDDM and CVA who presents with generalized weakness and N/V. Associated with lower abdominal pain, chills, and dizziness. No reported diarrhea, fever, or recent sick contact. In ER, labs notable for Co2 6, WBC 20.8, BUN 37, Cr 1.14, and AG 22. She was hypotensive and resuscitated with 2 liters NS bolus. Started on zosyn. Admitted to ICU for further management. CT Abdomen/Pelvis: 1. Low-density lesions within the right kidney, consistent with infection versus neoplasm. 2. The gallbladder is thick walled and distended, possibly indicating cholecystitis.? This could be further assessed with ultrasound, if clinically indicated. 3. Chronic pancreatitis. 4. Normal appendix. 5. Findings consistent with sequelae of chronic bladder outlet obstruction.? PFSH Medical History Acute CVA (cerebrovascular accident) Alcohol intoxication Closed hip fracture COVID DKA (diabetic ketoacidoses) DKA (diabetic ketoacidosis) Fibromyalgia Gastroesophageal reflux disease Insulin dependent diabetes mellitus Lupus Osteoporosis Surgical History History of hip surgery Presence of pancreatic duct stent Family History Mother Diabetes mellitus Congestive heart failure Pancreatic cancer Father Diabetes mellitus Brother Diabetes mellitus Pancreatitis Sister Drug overdose Social History household members: family Smoking Status: Current every day smoker alcohol intake: never Current Medications Current Medications Medications: Home Medications insulin aspart U-100 100 unit/mL (3 mL) subcutaneous pen (Novolog Flexpen U-100 Insulin aspart) 0 unit (0 mL) SUBCUT AC #3 units 02/12/18 [Rx Confirmed 03/23/22] buspirone 10 mg tablet 2 tab PO TID 12/08/18 [History Confirmed 03/23/22] cyclobenzaprine 10 mg tablet 10 mg PO TID PRN pain 12/08/18 [History Confirmed 03/23/22] blood sugar diagnostic (Test N'Go Test strips) #50 ea 11/30/21 [Rx Confirmed 03/24/22] insulin glargine 100 unit/mL (3 mL) subcutaneous pen 10 unit (0.1 mL) SUBCUT DAILY #0 mL 12/09/21 [Rx Confirmed 03/23/22] qkviai-nndfollg-elmlnkh 24,000-76,000-120,000 unit capsule,delayed rel (Creon) See Rx Instructions .Route .COMPLEX 02/14/22 [History Confirmed 03/23/22] ondansetron HCl 4 mg tablet 4 mg PO TID 02/14/22 [History Confirmed 03/23/22] acetaminophen 325 mg tablet 650 mg PO Q6HR PRN Headache #60 tabs 02/19/22 [Rx Confirmed 03/23/22] gabapentin 300 mg capsule (Neurontin) 900 mg PO TID #90 caps 02/19/22 [Rx Confirmed 03/23/22] hydromorphone 2 mg tablet 2 mg PO Q4HR PRN Pain, Severe (7-10) #30 tabs 02/19/22 [Rx Confirmed 03/23/22] loratadine 10 mg tablet 10 mg PO DAILY #30 tabs 02/19/22 [Rx Confirmed 03/23/22] melatonin 3 mg tablet 3 mg PO BEDTIME #30 tabs 02/19/22 [Rx Confirmed 03/23/22] pseudoephedrine HCl 30 mg tablet 30 mg PO Q6HR PRN Congestion/ sinus headache #30 tabs 02/19/22 [Rx Confirmed 03/23/22] Visit Medications (administered) Generic Name Dose Route Start Last Admin Trade Name Freq PRN Reason Stop Dose Admin Fentanyl 25 mcg 05/31/22 13:27 05/31/22 14:31 Fentanyl 100 Mcg/2 Ml Inj IV 25 mcg Q1H PRN Administration Pain, Severe (7-10) Potassium Acetate 40 meq/ 1,020 mls @ 200 mls/hr 05/31/22 16:15 05/31/22 17:58 Dextrose/Sodium Chloride IV 200 mls/hr CONT JOSE ANTONIO Administration Exam Vital Signs (past 8 hours): - 05/31/22 13:16 05/31/22 13:11 05/31/22 13:12 Temperature 97.7 F Pulse Rate 112 H 109 H Respiratory Rate 20 24 Blood Pressure 78/52 L 81/58 L Pulse Oximetry 98 98 Oxygen Delivery Method Room Air 05/31/22 13:16 05/31/22 13:16 05/31/22 13:20 Temperature Pulse Rate 109 H 109 H Respiratory Rate 12 19 Blood Pressure 78/53 L Pulse Oximetry 100 100 Oxygen Delivery Method 05/31/22 13:20 05/31/22 13:25 05/31/22 13:25 Temperature Pulse Rate 108 H Respiratory Rate 24 Blood Pressure 86/55 L 83/55 L Pulse Oximetry 100 Oxygen Delivery Method 05/31/22 13:30 05/31/22 13:30 05/31/22 13:35 Temperature Pulse Rate 108 H Respiratory Rate 23 Blood Pressure 86/56 L 87/57 L Pulse Oximetry 100 Oxygen Delivery Method 05/31/22 13:35 05/31/22 14:00 05/31/22 14:00 Temperature Pulse Rate 107 H 111 H Respiratory Rate 20 25 H Blood Pressure 94/58 L Pulse Oximetry 100 100 Oxygen Delivery Method Room Air 05/31/22 14:02 05/31/22 14:02 05/31/22 14:05 Temperature Pulse Rate 110 H Respiratory Rate 26 H Blood Pressure 95/61 93/56 L Pulse Oximetry 100 Oxygen Delivery Method 05/31/22 14:05 05/31/22 14:26 05/31/22 14:26 Temperature Pulse Rate 109 H 106 H Respiratory Rate 22 20 Blood Pressure 88/53 L Pulse Oximetry 100 100 Oxygen Delivery Method Room Air 05/31/22 14:30 05/31/22 14:30 05/31/22 14:35 Temperature Pulse Rate 104 H 106 H Respiratory Rate 25 H 23 Blood Pressure 86/55 L Pulse Oximetry 100 100 Oxygen Delivery Method 05/31/22 14:35 05/31/22 14:40 05/31/22 14:40 Temperature Pulse Rate 104 H Respiratory Rate 18 Blood Pressure 87/57 L 90/53 L Pulse Oximetry 100 Oxygen Delivery Method Room Air 05/31/22 14:45 05/31/22 14:45 05/31/22 14:50 Temperature Pulse Rate 106 H Respiratory Rate 21 Blood Pressure 96/57 L 90/55 L Pulse Oximetry 100 Oxygen Delivery Method 05/31/22 14:50 05/31/22 15:06 05/31/22 15:07 Temperature Pulse Rate 105 H 103 H Respiratory Rate 22 Blood Pressure 88/52 L Pulse Oximetry 100 100 Oxygen Delivery Method 05/31/22 15:07 05/31/22 15:10 05/31/22 15:10 Temperature Pulse Rate 104 H 105 H Respiratory Rate 22 23 Blood Pressure 88/56 L Pulse Oximetry 100 100 Oxygen Delivery Method 05/31/22 15:15 05/31/22 15:15 05/31/22 15:20 Temperature Pulse Rate 108 H Respiratory Rate 23 Blood Pressure 88/61 L 93/59 L Pulse Oximetry 97 Oxygen Delivery Method 05/31/22 15:20 05/31/22 15:25 05/31/22 15:25 Temperature Pulse Rate 109 H 109 H Respiratory Rate 20 20 Blood Pressure 94/60 Pulse Oximetry 100 100 Oxygen Delivery Method 05/31/22 15:30 05/31/22 15:30 05/31/22 15:35 Temperature Pulse Rate 110 H 111 H Respiratory Rate 18 18 Blood Pressure 96/59 L Pulse Oximetry 100 100 Oxygen Delivery Method 05/31/22 15:35 05/31/22 15:40 05/31/22 15:40 Temperature Pulse Rate 109 H Respiratory Rate 19 Blood Pressure 97/60 90/58 L Pulse Oximetry 100 Oxygen Delivery Method 05/31/22 15:45 05/31/22 15:45 05/31/22 15:50 Temperature Pulse Rate 109 H 109 H Respiratory Rate 19 22 Blood Pressure 90/58 L Pulse Oximetry 100 100 Oxygen Delivery Method 05/31/22 15:50 05/31/22 16:00 05/31/22 16:13 Temperature Pulse Rate 107 H 105 H Respiratory Rate 20 18 Blood Pressure 94/55 L Pulse Oximetry 100 99 Oxygen Delivery Method 05/31/22 16:13 05/31/22 16:15 05/31/22 16:15 Temperature Pulse Rate 106 H Respiratory Rate 19 Blood Pressure 89/54 L 89/55 L Pulse Oximetry 100 Oxygen Delivery Method 05/31/22 16:20 05/31/22 16:20 05/31/22 16:25 Temperature Pulse Rate 107 H 107 H Respiratory Rate 22 19 Blood Pressure 89/58 L Pulse Oximetry 100 100 Oxygen Delivery Method 05/31/22 16:25 05/31/22 16:30 05/31/22 16:30 Temperature Pulse Rate 105 H Respiratory Rate 20 Blood Pressure 90/55 L 86/53 L Pulse Oximetry 100 Oxygen Delivery Method Room Air 05/31/22 16:35 05/31/22 16:35 05/31/22 16:38 Temperature Pulse Rate 105 H 105 H Respiratory Rate 19 23 Blood Pressure 87/53 L Pulse Oximetry 100 100 Oxygen Delivery Method 05/31/22 16:38 05/31/22 17:00 Temperature Pulse Rate 104 H Respiratory Rate 19 Blood Pressure 86/55 L Pulse Oximetry 100 Oxygen Delivery Method Room Air Oxygen Delivery Method Room Air Objective Labs Result Diagrams: 05/31/22 17:07 05/31/22 13:50 Labs: Laboratory Results - last 24 hr 05/31/22 05/31/22 05/31/22 13:10 13:50 13:50 WBC RBC Hgb Hct MCV MCH MCHC RDW Plt Count Neut % (Auto) Lymph % (Auto) [place] % (Auto) Eos % (Auto) Baso % (Auto) Neut # (Auto) Lymph # (Auto) [place] # (Auto) Eos # (Auto) Baso # (Auto) RBC Morphology Anisocytosis Ovalocytes [place] Cells VBG pH VBG pCO2 VBG pO2 VBG HCO3 VBG Total CO2 VBG O2 Saturation VBG Base Excess Sodium 137 Potassium 4.1 Chloride 109 H Carbon Dioxide 6 L* BUN 37 H Creatinine 1.14 H Estimated GFR > 60 BUN/Creatinine Ratio 32.5 H Glucose 122 H Lactate Calcium 7.8 L Total Bilirubin 0.3 AST 23 ALT 14 Alkaline Phosphatase 189 H Total Creatine Kinase CK-MB (CK-2) CK-MB (CK-2) Rel Index Troponin I Total Protein 6.0 L Albumin 2.9 L Globulin 3.1 Albumin/Globulin Ratio 0.9 L Lipase TSH 1.62 Ketones SARS-CoV-2 (PCR) Negative 05/31/22 05/31/22 05/31/22 13:58 14:02 16:55 WBC RBC Hgb Hct MCV MCH MCHC RDW Plt Count Neut % (Auto) Lymph % (Auto) [place] % (Auto) Eos % (Auto) Baso % (Auto) Neut # (Auto) Lymph # (Auto) [place] # (Auto) Eos # (Auto) Baso # (Auto) RBC Morphology Anisocytosis Ovalocytes [place] Cells VBG pH 7.19 L* VBG pCO2 21.7 L VBG pO2 50 H VBG HCO3 8 L VBG Total CO2 9 L VBG O2 Saturation 76 H VBG Base Excess -20.0 L Sodium Potassium Chloride Carbon Dioxide BUN Creatinine Estimated GFR BUN/Creatinine Ratio Glucose Lactate 0.8 Calcium Total Bilirubin AST ALT Alkaline Phosphatase Total Creatine Kinase < 20 L CK-MB (CK-2) TNP CK-MB (CK-2) Rel Index TNP Troponin I < 0.012 Total Protein Albumin Globulin Albumin/Globulin Ratio Lipase < 10 L TSH Ketones 3.22 H SARS-CoV-2 (PCR) 05/31/22 17:07 WBC 20.8 H RBC 3.72 L Hgb 9.4 L Hct 29.9 L MCV 80.4 MCH 25.2 L MCHC 31.4 RDW 20.7 H Plt Count 593 H Neut % (Auto) 91.7 H Lymph % (Auto) 4.6 L [place] % (Auto) 3.3 Eos % (Auto) 0.1 L Baso % (Auto) 0.3 Neut # (Auto) 37813 H Lymph # (Auto) 1000 L [place] # (Auto) 700 Eos # (Auto) 0 Baso # (Auto) 100 RBC Morphology See below Anisocytosis 2+ H Ovalocytes 1+ H [place] Cells 1+ H VBG pH VBG pCO2 VBG pO2 VBG HCO3 VBG Total CO2 VBG O2 Saturation VBG Base Excess Sodium Potassium Chloride Carbon Dioxide BUN Creatinine Estimated GFR BUN/Creatinine Ratio Glucose Lactate Calcium Total Bilirubin AST ALT Alkaline Phosphatase Total Creatine Kinase CK-MB (CK-2) CK-MB (CK-2) Rel Index Troponin I Total Protein Albumin Globulin Albumin/Globulin Ratio Lipase TSH Ketones SARS-CoV-2 (PCR) Assessment & Plan Assessment & Plan narrative: NEURO: # Hx of CVA -- Resume eliquis -- PT/OT consultation RESP: -- On room air -- Encourage IS and OOB as tolerated CVS: # Hypotension -- Improving with IVF -- Cont aggressive crystalloids resuscitation -- MAP goal > 65 -- Abx as below : # MIGUEL -- Secondary to dehydration, sepsis, and DKA -- Avoid nephrotoxin agents -- Daily BMP -- Monitor UOP HEME: # Anemia -- Secondary to ACD -- No signs of overt bleed -- Daily CBC -- Goal Hb > 7 ID: # Sepsis -- Secondary to pyelonephritis vs UTI -- Cont IVF -- On zosyn -- Follow up cx data ENDO: # Euglycemic DKA -- Cont IVF -- Start ISS when blood sugar > 150 -- Accuchecks q1hr -- Goal K > 4.5, Mg > 2, and phos > 3 -- Trend BMP every 4 hours -- Sepsis workup as above D/w RN and Dr. Mcginnis Time Spent With Patient Critical Care time: I spent a total of 32 minutes of critical care time on this patient's care today; this time is exclusive of procedural time.
[2022-05-31 18:10] LABS: Appearance Urine UA CLOUDY; Bilirubin Urine UA NEGATIVE (NEGATIVE); Color Urine UA YELLOW; Glucose Urine UA NEGATIVE (Negative); Ketones Urine UA 1+ (NEGATIVE); Leukocyte Esterase Urine UA 2+ (NEGATIVE); Nitrite Urine UA POSITIVE (Negative); Occult Blood Urine UA 3+ (Negative); Protein Urine UA 1+ (Negative); Urobilinogen Urine UA 0.2 E.U./dL (0.2)
[2022-05-31 18:11] LABS: Procalcitonin 269 ng/mL (<0.5)
[2022-05-31 18:16] LABS: RBC Urine None Seen (0-5/HPF); Squamous Epithelial Cell Urine 0-1 /HPF (0-5/HPF); Transitional Epi Cells Urine 0-1/HPF (0-5/HPF); WBC Urine 30-100/HPF (0-5/HPF)
[2022-05-31 18:17] LABS: Bacteria Urine Many (>30); Culture Indicated Urine Specimen Cultured
--- NOTE | 2022-05-31 18:17 | PM.HP.1 ---
History of Present Illness History of Present Illness Chief complaint: N/V, weakness, body aches Narrative: Patient is 46-year-old female with history of insulin-dependent diabetes, DKA, paroxysmal atrial fibrillation, history of CVA, chronic pancreatitis, frequent UTI presents with one-week history of nausea, vomiting. She endorses rigors for the past week. Eyes dyspnea, cough or urinary symptoms. She has had pain in the back and abdomen. In the ED she was noted to be ill-appearing, tachycardic in sinus rhythm, hypotensive with systolic BP in the 80s. WBC was 20 K with 91% neutrophils, anion gap of 22, venous blood gas pH of 7.19 and HC03 of 8. Urinalysis showed many bacteria. X-ray without infiltrate and COVID negative she had lactate but elevated ketones of 3.2 in serum. Procalcitonin quite high at 269. Glucose was only 122. Patient states her glucose has been running 130-180 recently at home. Additionally, patient states she was evaluated by her evaluator recently and started on apixaban 2 weeks ago for AFib. Patient History Medical History (Updated 05/31/22 @ 18:22 by Ras Mohamud MD) Acute CVA (cerebrovascular accident) Alcohol intoxication Chronic atrial fibrillation with RVR Closed hip fracture COVID DKA (diabetic ketoacidoses) DKA (diabetic ketoacidosis) Fibromyalgia Gastroesophageal reflux disease Insulin dependent diabetes mellitus Lupus Osteoporosis Surgical History History of hip surgery Presence of pancreatic duct stent Family & Social History Family History Mother Diabetes mellitus Congestive heart failure Pancreatic cancer Father Diabetes mellitus Brother Diabetes mellitus Pancreatitis Sister Drug overdose Social History: household members family Prior Living Arrangements House Safety & Behavioral: Feels Safe in Current Yes Environment Been Physically Hurt or No Threatened By a Person Tobacco & Substance use: Tobacco type cigarettes Smoking Status Current every day smoker Smoking packs per day 0.5 alcohol intake never alcohol intake frequency holiday/special occasion Substance Use Type does not use Meds Home Medications and Allergies Home Medications Medication Instructions Recorded Confirmed Type insulin aspart U-100 100 unit/mL 0 unit (0 mL) SUBCUT AC #3 units 02/12/18 05/31/22 Rx (3 mL) subcutaneous pen (Novolog Flexpen U-100 Insulin aspart) buspirone 10 mg tablet 2 tab PO TID 12/08/18 05/31/22 History cyclobenzaprine 10 mg tablet 10 mg PO TID PRN pain 12/08/18 05/31/22 History insulin glargine 100 unit/mL (3 10 unit (0.1 mL) SUBCUT DAILY #0 mL 12/09/21 05/31/22 Rx mL) subcutaneous pen [id number] See Rx Instructions .Route .COMPLEX 02/14/22 05/31/22 History 24,000-76,000-120,000 unit capsule,delayed rel (Creon) ondansetron HCl 4 mg tablet 4 mg PO TID 02/14/22 05/31/22 History acetaminophen 325 mg tablet 650 mg PO Q6HR PRN Headache #60 02/19/22 05/31/22 Rx tabs loratadine 10 mg tablet 10 mg PO DAILY #30 tabs 02/19/22 05/31/22 Rx melatonin 3 mg tablet 3 mg PO BEDTIME #30 tabs 02/19/22 05/31/22 Rx pseudoephedrine HCl 30 mg tablet 30 mg PO Q6HR PRN Congestion/ 02/19/22 05/31/22 Rx sinus headache #30 tabs apixaban 5 mg tablet (Eliquis) 5 mg PO BID 05/31/22 05/31/22 History gabapentin 400 mg capsule 800 mg PO QID 05/31/22 05/31/22 History Allergies Allergy/AdvReac Type Severity Reaction Status Date / Time amitriptyline Allergy Intermediate Verified 05/31/22 13:21 sulfasalazine [SULFASALAZINE] Allergy Mild PANCREATITI Verified 05/31/22 13:21 S trazodone AdvReac Intermediate HEART Verified 05/31/22 13:21 PALPITATIONS Review of Systems Review of Systems Narrative: Complete 10 point ROS otherwise negative Exam Vital Signs (past 8 hours): - 05/31/22 13:16 05/31/22 13:11 05/31/22 13:12 Temperature 97.7 F Pulse Rate 112 H 109 H Respiratory Rate 20 24 Blood Pressure 78/52 L 81/58 L Pulse Oximetry 98 98 Oxygen Delivery Method Room Air Oxygen Flow Rate 05/31/22 13:16 05/31/22 13:16 05/31/22 13:20 Temperature Pulse Rate 109 H 109 H Respiratory Rate 12 19 Blood Pressure 78/53 L Pulse Oximetry 100 100 Oxygen Delivery Method Oxygen Flow Rate 05/31/22 13:20 05/31/22 13:25 05/31/22 13:25 Temperature Pulse Rate 108 H Respiratory Rate 24 Blood Pressure 86/55 L 83/55 L Pulse Oximetry 100 Oxygen Delivery Method Oxygen Flow Rate 05/31/22 13:30 05/31/22 13:30 05/31/22 13:35 Temperature Pulse Rate 108 H Respiratory Rate 23 Blood Pressure 86/56 L 87/57 L Pulse Oximetry 100 Oxygen Delivery Method Oxygen Flow Rate 05/31/22 13:35 05/31/22 14:00 05/31/22 14:00 Temperature Pulse Rate 107 H 111 H Respiratory Rate 20 25 H Blood Pressure 94/58 L Pulse Oximetry 100 100 Oxygen Delivery Method Room Air Oxygen Flow Rate 05/31/22 14:02 05/31/22 14:02 05/31/22 14:05 Temperature Pulse Rate 110 H Respiratory Rate 26 H Blood Pressure 95/61 93/56 L Pulse Oximetry 100 Oxygen Delivery Method Oxygen Flow Rate 05/31/22 14:05 05/31/22 14:26 05/31/22 14:26 Temperature Pulse Rate 109 H 106 H Respiratory Rate 22 20 Blood Pressure 88/53 L Pulse Oximetry 100 100 Oxygen Delivery Method Room Air Oxygen Flow Rate 05/31/22 14:30 05/31/22 14:30 05/31/22 14:35 Temperature Pulse Rate 104 H 106 H Respiratory Rate 25 H 23 Blood Pressure 86/55 L Pulse Oximetry 100 100 Oxygen Delivery Method Oxygen Flow Rate 05/31/22 14:35 05/31/22 14:40 05/31/22 14:40 Temperature Pulse Rate 104 H Respiratory Rate 18 Blood Pressure 87/57 L 90/53 L Pulse Oximetry 100 Oxygen Delivery Method Room Air Oxygen Flow Rate 05/31/22 14:45 05/31/22 14:45 05/31/22 14:50 Temperature Pulse Rate 106 H Respiratory Rate 21 Blood Pressure 96/57 L 90/55 L Pulse Oximetry 100 Oxygen Delivery Method Oxygen Flow Rate 05/31/22 14:50 05/31/22 15:06 05/31/22 15:07 Temperature Pulse Rate 105 H 103 H Respiratory Rate 22 Blood Pressure 88/52 L Pulse Oximetry 100 100 Oxygen Delivery Method Oxygen Flow Rate 05/31/22 15:07 05/31/22 15:10 05/31/22 15:10 Temperature Pulse Rate 104 H 105 H Respiratory Rate 22 23 Blood Pressure 88/56 L Pulse Oximetry 100 100 Oxygen Delivery Method Oxygen Flow Rate 05/31/22 15:15 05/31/22 15:15 05/31/22 15:20 Temperature Pulse Rate 108 H Respiratory Rate 23 Blood Pressure 88/61 L 93/59 L Pulse Oximetry 97 Oxygen Delivery Method Oxygen Flow Rate 05/31/22 15:20 05/31/22 15:25 05/31/22 15:25 Temperature Pulse Rate 109 H 109 H Respiratory Rate 20 20 Blood Pressure 94/60 Pulse Oximetry 100 100 Oxygen Delivery Method Oxygen Flow Rate 05/31/22 15:30 05/31/22 15:30 05/31/22 15:35 Temperature Pulse Rate 110 H 111 H Respiratory Rate 18 18 Blood Pressure 96/59 L Pulse Oximetry 100 100 Oxygen Delivery Method Oxygen Flow Rate 05/31/22 15:35 05/31/22 15:40 05/31/22 15:40 Temperature Pulse Rate 109 H Respiratory Rate 19 Blood Pressure 97/60 90/58 L Pulse Oximetry 100 Oxygen Delivery Method Oxygen Flow Rate 05/31/22 15:45 05/31/22 15:45 05/31/22 15:50 Temperature Pulse Rate 109 H 109 H Respiratory Rate 19 22 Blood Pressure 90/58 L Pulse Oximetry 100 100 Oxygen Delivery Method Oxygen Flow Rate 05/31/22 15:50 05/31/22 16:00 05/31/22 16:13 Temperature Pulse Rate 107 H 105 H Respiratory Rate 20 18 Blood Pressure 94/55 L Pulse Oximetry 100 99 Oxygen Delivery Method Oxygen Flow Rate 05/31/22 16:13 05/31/22 16:15 05/31/22 16:15 Temperature Pulse Rate 106 H Respiratory Rate 19 Blood Pressure 89/54 L 89/55 L Pulse Oximetry 100 Oxygen Delivery Method Oxygen Flow Rate 05/31/22 16:20 05/31/22 16:20 05/31/22 16:25 Temperature Pulse Rate 107 H 107 H Respiratory Rate 22 19 Blood Pressure 89/58 L Pulse Oximetry 100 100 Oxygen Delivery Method Oxygen Flow Rate 05/31/22 16:25 05/31/22 16:30 05/31/22 16:30 Temperature Pulse Rate 105 H Respiratory Rate 20 Blood Pressure 90/55 L 86/53 L Pulse Oximetry 100 Oxygen Delivery Method Room Air Oxygen Flow Rate 05/31/22 16:35 05/31/22 16:35 05/31/22 16:38 Temperature Pulse Rate 105 H 105 H Respiratory Rate 19 23 Blood Pressure 87/53 L Pulse Oximetry 100 100 Oxygen Delivery Method Oxygen Flow Rate 05/31/22 16:38 05/31/22 17:00 05/31/22 17:54 Temperature Pulse Rate 104 H 106 H Respiratory Rate 19 22 Blood Pressure 86/55 L 103/59 L Pulse Oximetry 100 100 Oxygen Delivery Method Room Air Oxygen Flow Rate 0 Oxygen Delivery Method Room Air Oxygen Flow Rate 0 Narrative Exam Narrative: General: Alert, pleasant and cooperative female HEENT: Nontraumatic, pupils equal mucosa Neck: No lymphadenopathy Lungs: Clear to auscultation Heart: Tachycardic with a regular rhythm Abdomen: Tender in the flank bilaterally, not tender in right upper quad, no abdominal mass, no HSM Extremities: No edema Neurological: Fully oriented, speech and affect normal Objective Labs Result Diagrams: 05/31/22 17:07 05/31/22 13:50 Labs: Laboratory Results - last 24 hr 05/31/22 05/31/22 05/31/22 13:10 13:50 13:50 WBC RBC Hgb Hct MCV MCH MCHC RDW Plt Count Neut % (Auto) Lymph % (Auto) Jennings % (Auto) Eos % (Auto) Baso % (Auto) Neut # (Auto) Lymph # (Auto) Jennings # (Auto) Eos # (Auto) Baso # (Auto) RBC Morphology Anisocytosis Ovalocytes Regina Cells VBG pH VBG pCO2 VBG pO2 VBG HCO3 VBG Total CO2 VBG O2 Saturation VBG Base Excess Sodium 137 Potassium 4.1 Chloride 109 H Carbon Dioxide 6 L* BUN 37 H Creatinine 1.14 H Estimated GFR > 60 BUN/Creatinine Ratio 32.5 H Glucose 122 H Lactate Calcium 7.8 L Total Bilirubin 0.3 AST 23 ALT 14 Alkaline Phosphatase 189 H Total Creatine Kinase CK-MB (CK-2) CK-MB (CK-2) Rel Index Troponin I Total Protein 6.0 L Albumin 2.9 L Globulin 3.1 Albumin/Globulin Ratio 0.9 L Lipase Procalcitonin TSH 1.62 Urine Color Urine Appearance Urine pH Ur Specific Talmo Urine Protein Urine Glucose (UA) Urine Ketones Urine Occult Blood Urine Nitrate Urine Bilirubin Urine Urobilinogen Ur Leukocyte Esterase Ketones SARS-CoV-2 (PCR) Negative 05/31/22 05/31/22 05/31/22 13:58 14:02 15:17 WBC RBC Hgb Hct MCV MCH MCHC RDW Plt Count Neut % (Auto) Lymph % (Auto) Jennings % (Auto) Eos % (Auto) Baso % (Auto) Neut # (Auto) Lymph # (Auto) Jennings # (Auto) Eos # (Auto) Baso # (Auto) RBC Morphology Anisocytosis Ovalocytes Regina Cells VBG pH 7.19 L* VBG pCO2 21.7 L VBG pO2 50 H VBG HCO3 8 L VBG Total CO2 9 L VBG O2 Saturation 76 H VBG Base Excess -20.0 L Sodium Potassium Chloride Carbon Dioxide BUN Creatinine Estimated GFR BUN/Creatinine Ratio Glucose Lactate Calcium Total Bilirubin AST ALT Alkaline Phosphatase Total Creatine Kinase < 20 L CK-MB (CK-2) TNP CK-MB (CK-2) Rel Index TNP Troponin I < 0.012 Total Protein Albumin Globulin Albumin/Globulin Ratio Lipase < 10 L Procalcitonin TSH Urine Color Yellow Urine Appearance Cloudy Urine pH 5.0 Ur Specific Talmo 1.010 Urine Protein 1+ H Urine Glucose (UA) Negative Urine Ketones 1+ H Urine Occult Blood 3+ H Urine Nitrate Positive H Urine Bilirubin Negative Urine Urobilinogen 0.2 Ur Leukocyte Esterase 2+ H Ketones 3.22 H SARS-CoV-2 (PCR) 05/31/22 05/31/22 05/31/22 16:55 16:55 17:07 WBC 20.8 H RBC 3.72 L Hgb 9.4 L Hct 29.9 L MCV 80.4 MCH 25.2 L MCHC 31.4 RDW 20.7 H Plt Count 593 H Neut % (Auto) 91.7 H Lymph % (Auto) 4.6 L Jennings % (Auto) 3.3 Eos % (Auto) 0.1 L Baso % (Auto) 0.3 Neut # (Auto) 10181 H Lymph # (Auto) 1000 L Jennings # (Auto) 700 Eos # (Auto) 0 Baso # (Auto) 100 RBC Morphology See below Anisocytosis 2+ H Ovalocytes 1+ H Regina Cells 1+ H VBG pH VBG pCO2 VBG pO2 VBG HCO3 VBG Total CO2 VBG O2 Saturation VBG Base Excess Sodium Potassium Chloride Carbon Dioxide BUN Creatinine Estimated GFR BUN/Creatinine Ratio Glucose Lactate 0.8 Calcium Total Bilirubin AST ALT Alkaline Phosphatase Total Creatine Kinase CK-MB (CK-2) CK-MB (CK-2) Rel Index Troponin I Total Protein Albumin Globulin Albumin/Globulin Ratio Lipase Procalcitonin 269 H TSH Urine Color Urine Appearance Urine pH Ur Specific Talmo Urine Protein Urine Glucose (UA) Urine Ketones Urine Occult Blood Urine Nitrate Urine Bilirubin Urine Urobilinogen Ur Leukocyte Esterase Ketones SARS-CoV-2 (PCR) Assessment & Plan Assessment & Plan narrative: 1. Acute DKA, present on admission -patient appears ill with nausea and vomiting, metabolic acidosis with significant anion gap, positive serum ketones and negative lactate -hypertensive likely due to volume depletion -glucose 122 on admit -received 2 L NS in the ED -start D5 NS, started on insulin drip at 2 units/hour and follow DKA protocol for insulin adjustment and lab monitoring line -Zofran as needed for nausea and vomiting -PICC line -discussed with tele ICU 2. Acute pyelonephritis, right kidney, present on admission -on CT abdomen and pelvis there is enhancing foci in the right kidney most likely representing acute pyelo vs neoplasm -follow-up on urine and blood culture results -Zosyn for antibiotic -fentanyl 25 mcg as needed for back pain -CBC in a.m. 3. Paroxysmal atrial fibrillation, history of -patient in sinus tachycardia on admit -recently started apixaban by cardiology, to continue during admission -does not appear to be on rate control agent as outpatient Patient requires management in ICU, total time of up to 60 minutes in today's critical care evaluation and management. Code status: Full code Time Spent With Patient Critical Care time: I spent a total of [] minutes of critical care time on this patient's care today; this time is exclusive of procedural time. Quality VTE Deep Vein Thrombosis/Pulmonary Embolism Present on Admission: No
--- NOTE | 2022-05-31 19:17 | PC.NURSE ---
Pt arrived via gurney from ED, able to slide over to bed from [facility]. Connected to monitoring equipment, CBG done and charted, pt oriented to room and call light system, Dr Mohamud at bedside, tele program/music director Dr Obando consulted. Bed low and locked, alarm activated for safety, will continue to monitor
[2022-05-31] MEDS: INSULIN DRIP PREMIX 100 UNIT/100 ML PLAST..BAG IV (20:08)
--- NOTE | 2022-05-31 20:27 | PM.ICURNDS ---
- Date Patient Seen: 05/31/22 Time Patient Seen: 20:28 :: This patient was seen via real time interactive two-way audiovisual telecommunication. Note: Started on insulin infusion per DKA protocol. Ordered 1 liter LR bolus. Check BMP every 4 hours. D/w RN at bedside.
[2022-05-31] MEDS: BUSPIRONE 5 MG TABLET 20 MG PO (20:42)
[2022-05-31] MEDS: GABAPENTIN 400 MG CAPSULE 800 MG PO (20:43)
[2022-05-31] MEDS: APIXABAN 5 MG TABLET PO (20:43)
[2022-05-31] MEDS: MELATONIN 3 MG TABLET PO (20:43)
[2022-05-31] MEDS: LACTATED RINGERS 1,000 ML 1000 ML IV ×2 (21:55→23:44)
[2022-05-31] MEDS: HYDROMORPHONE 0.5 MG INJ IV (22:49)
[2022-05-31] MEDS: DEXTROSE 10 % IN WATER 1,000 ML 97 ML IV (22:52)
[2022-05-31 22:53] LABS: BUN Creatinine Ratio 28.4 (6-22); Blood Urea Nitrogen 27 mg/dL (7-17); Calcium 7.2 mg/dL (8.4-10.2); Chloride 115 mmol/L (98-107); Estimated Glomerular Filt Rate > 60 mL/min (>60); Glucose 75 mg/dL (70-100); HEMOLYSIS < 15 (0-50); Potassium 3.6 mmol/L (3.4-5.1); Sodium 137 mmol/L (137-145)
[2022-05-31 23:00] LABS: Carbon Dioxide 9 mmol/L (22-32)
[2022-05-31] MEDS: DEXTROSE 5%-0.9% NS 1,000 ML 150 ML IV (23:03)
[2022-05-31 23:05] LABS: Phosphorous 3.3 mg/dL (2.5-4.5)
[2022-05-31] MEDS: NOREPINEPHRINE BITARTRATE/D5W 4 MG/250 ML PLAST..BAG 30 MG IV (23:53)
[2022-06-01] VITALS (54 sets, daily range): BP systolic 80–126; BP diastolic 49–78; PULSE 92–119; RESP 19–50; TEMP 36.6–37; O2SAT 91–100
--- NOTE | 2022-06-01 | DI.RAD.S_ITS ---
PROCEDURE: XR CHEST 1V INDICATIONS: CENTRAL LINE PLACEMENT TECHNIQUE: One view of the chest was acquired. COMPARISON: [facility], CR, XR CHEST 1V, 05/31/2022, 14:25. FINDINGS: Surgical changes and devices: Placement of right central venous catheter with distal tip projecting over the lower SVC. Lungs and pleura: Diffuse interstitial prominence. Patchy bilateral perihilar and lower lung zone airspace opacities. No focal consolidation. No pneumothorax. No pleural effusion. Mediastinum: Mediastinal contours appear normal. Heart size is normal. Bones and chest wall: No suspicious bony lesions. Overlying soft tissues appear unremarkable. IMPRESSION: Right central venous catheter is in place with distal tip projecting near the lower SVC. No pneumothorax. Dictated by: Dc Vernon M.D. on 06/01/2022 at 9:01 Approved by: Dc Vernon M.D. on 06/01/2022 at 9:01
[2022-06-01] MEDS: DEXTROSE 50 % IN WATER 25 GM/50 ML SYRINGE IV ×5 (00:11→11:11)
[2022-06-01] MEDS: PIPERACILLIN/TAZO 3.375 GM in SODIUM CHLORIDE 0.9% 100 ML IV ×4 (00:30→23:53)
[2022-06-01] MEDS: HYDROMORPHONE 0.5 MG INJ IV ×4 (04:50→21:59)
[2022-06-01] MEDS: DEXTROSE 5%-0.45% NS 1,000 ML 73 ML IV ×2 (05:45→10:06)
--- NOTE | 2022-06-01 05:53 | PC.NURSE ---
Shift note: Patient is alert and orientedx4, denies any cardiorespiratory distress, at room air with O2 sat 98%, tachycardic in the monitor HR-105, complained episodes of headache and body ache, due pain meds given. on DKA protocol, Insulin drip was started with blood sugar at 160mg/dl, titrated as per protocol, blood sugar checked hourly. Patient was seen by ICU provider and ordered 1L bolus of LR as SBP was 96 MAP of 66, bolus was given. At 2330, still hypotensive SBP 80s, MAP <65, notified ICU provider and ordered another bolus of LR and Levophed drip. IV access at right upper arm got infiltrated, attempted to reinsert multiple times, got IV access at right hand. At 0300H, PICC line nurse came in and started to place PICC line, attempted thrice but unsuccessful and recommended central line placement, hospitalist notified. Safety precautions maintained at all times. Patient uses bedside commode with one person assist and minimal cloudy urine output noted. Will continue to monitor.
[2022-06-01 07:11] LABS: Acinetobacter baumannii Not Detected (Not Detect); Enterococcus species Not Detected (Not Detect); Listeria monocytogenes Not Detected (Not Detect); Staphylococcus species Not Detected (Not Detect); Streptococcus agalactiae (Gr B Not Detected (Not Detect); Streptococcus pneumonia Not Detected (Not Detect); Streptococcus pyogenes (Gr A) Not Detected (Not Detect); Streptococcus species Not Detected (Not Detect)
[2022-06-01 07:12] LABS: Candida albicans Not Detected (Not Detect); Candida glabrata Not Detected (Not Detect); Candida krusei Not Detected (Not Detect); Candida parapsilosis Not Detected (Not Detect); Candida tropicalis Not Detected (Not Detect); E. coli Detected (Not Detect); Enterobacter cloacae complex Not Detected (Not Detect); Enterobacteriaceae species Detected (Not Detect); Haemophilus influenzae Not Detected (Not Detect); KPC (carbapenem-resist gene) Not Detected (Not Detect); Neisseria meningitidis Not Detected (Not Detect); Proteus species Not Detected (Not Detect); Pseudomonas aeruginosa Not Detected (Not Detect); Serratia marcescens Not Detected (Not Detect)
--- NOTE | 2022-06-01 08:28 | PM.PROC.1 ---
Procedures Date/Time Date of procedure: 06/01/22 Time of procedure: 08:28 General Procedure description: Right internal jugular central line Complications: none Central Line Placement Time out performed: Yes Patient placed on monitor/pulse ox: Yes MD prep: mask, gown and gloves Central line prep: Chlorhexidine scrub Local anesthesia used: lidocaine 1% Amount of anesthesia used (ml): 3 Ultrasound used for placement: Yes Central line lumen inserted: triple Post procedure: sutured in place Post procedure x-ray: tip of catheter in good position and no pneumothorax seen Patient tolerated procedure: well and no complications Complications: none
[2022-06-01] MEDS: BUSPIRONE 5 MG TABLET 20 MG PO ×3 (09:00→21:59)
[2022-06-01 09:07] LABS: Add Manual Diff / Slide Review NO; Basophils Absolute Auto 0 /uL (0-100); Basophils Percent Auto 0.1 % (0-2); Eosinophils Absolute Auto 0 /uL (0-450); Eosinophils Percent Auto 0.1 % (2-4); Hematocrit 23.3 % (36-46); Hemoglobin 7.6 g/dL (12.0-16.0); Lymphocytes Absolute Auto 600 /uL (1100-4500); Lymphocytes Percent Auto 4.1 % (25-40); Mean Corpuscular HGB Conc 32.5 % (30-36); Mean Corpuscular Hemoglobin 25.7 PG (26-34); Mean Corpuscular Volume 78.9 fL (80-100); Monocytes Absolute Auto 800 /uL (0-900); Monocytes Percent Auto 5.3 % (3-14); Neutrophils Absolute Auto 13300 /uL (1500-7000); Neutrophils Percent Auto 90.4 % (50-75); Platelet Count 451 X10^3/uL (150-400); Red Blood Cell Count 2.95 X10^6/uL (4.0-5.2); Red Cell Distribution Width 20.3 % (11.6-14.8); White Blood Cell Count 14.7 X10^3/uL (4.5-11.0)
[2022-06-01] MEDS: APIXABAN 5 MG TABLET PO ×2 (09:15→22:00)
[2022-06-01] MEDS: LIDOCAINE 2% INJ MDV 20ML 20 ML (09:15)
[2022-06-01] MEDS: ONDANSETRON 4 MG/2 ML INJ IV ×2 (09:16→16:32)
[2022-06-01] MEDS: GABAPENTIN 400 MG CAPSULE 800 MG PO ×4 (09:16→22:00)
[2022-06-01] MEDS: LORATADINE 10 MG TABLET PO (09:16)
[2022-06-01 09:33] LABS: Blood Urea Nitrogen 21 mg/dL (7-17); Calcium 7.2 mg/dL (8.4-10.2); Carbon Dioxide 11 mmol/L (22-32); Chloride 113 mmol/L (98-107); Estimated Glomerular Filt Rate > 60 mL/min (>60); Glucose 151 mg/dL (70-100); HEMOLYSIS < 15 (0-50); Potassium 3.8 mmol/L (3.4-5.1); Sodium 134 mmol/L (137-145)
[2022-06-01 09:35] LABS: Ketones (Beta-Hydroxybutyrate) 0.07 mmol/L (<0.27)
[2022-06-01 09:51] LABS: Anisocytosis 1+
[2022-06-01] MEDS: DEXTROSE 10 % IN WATER 1,000 ML 97 ML IV (11:06)
[2022-06-01] MEDS: HYDROCORTISONE 100 MG/2 ML VIAL 50 MG IV ×3 (12:05→23:53)
--- NOTE | 2022-06-01 12:10 | DIET.CONS ---
Dietary Consultation Note Admission Date: 05/31/2022 16:08 Assessment: 46y F c multiple admissions for chronic pancreatitis, DKA, sepsis, UTI screened by RD for past admission for malnutrition. Pt with MNA 10 (at risk for malnutrition) and low BMI 19.5 admitted for pyelonephritis and DKA on DKA protocol. Ht: 160.02 cm Wt: 49.895 kg BMI: 19.5 UBW: 49-54kg Last BM: 05/30/22 (05/31/22 18:02) MNA: 10 Jag Score: 21 Diet: 05/31/22 Dinner Clear Liquid Diet Diet Modifications: sips H2O only Nutrition Percent Meal Consumed 75% 06/01/22 11:53 Labs: RBC 2.95 X10^6/uL (4.0-5.2) L 06/01/22 08:35 Hgb 7.6 g/dL (12.0-16.0) L 06/01/22 08:35 Hct 23.3 % (36-46) L 06/01/22 08:35 Creatinine 0.84 mg/dL (0.52-1.04) 06/01/22 08:35 Lactate 0.8 mmol/L (0.7-2.1) 05/31/22 16:55 Nutrition Diagnosis: Severe Chronic Malnutrition r/t chronic hyperglycemia, poor appetite aeb pt with A1c >10 x3y, pt reports skipping insulin frequently secondary to poor appetite, pt with chronic low BMI, edentulous. Interventions: 1. When pts diet is advanced to CCD, will add soft food choices per pt preference as well as ONS Glucerna bid. EER: 1500-1700kcals (30-35kcal/kg per PCM), 65-75g PRO (1.3-1.5g/kg per PCM) Monitoring/Evaluations: diet advancement, BGs, POs, ONS tolerance Electronically Signed by: Viviana Graves 06/01/22 12:10 Clinical Dietitian [address] [id number]
--- NOTE | 2022-06-01 13:20 | P.TELICUPN_ITS ---
Subjective Subjective IF CAMERA ACTIVATED, patient seen via real-time interactive audiovisual communication: Camera activated Date Patient Seen: 06/01/22 Consent obtained for tele-health care recruiter care: Yes Patient Location: ICU Provider location (State): [place] Other participants/roles: RN, Hospitalist Interval history: Pt remains on insulin gtt, d10 and levophed, TLC placed. AG close,d but bicabr is 11. Has e. coli bacteremia, now on hydrocortisone Current Medications Current Medications Medications: Home Medications insulin aspart U-100 100 unit/mL (3 mL) subcutaneous pen (Novolog Flexpen U-100 Insulin aspart) 0 unit (0 mL) SUBCUT AC #3 units 02/12/18 [Rx Confirmed 05/31/22] buspirone 10 mg tablet 2 tab PO TID 12/08/18 [History Confirmed 05/31/22] cyclobenzaprine 10 mg tablet 10 mg PO TID PRN pain 12/08/18 [History Confirmed 05/31/22] insulin glargine 100 unit/mL (3 mL) subcutaneous pen 10 unit (0.1 mL) SUBCUT DAILY #0 mL 12/09/21 [Rx Confirmed 05/31/22] [id number] 24,000-76,000-120,000 unit capsule,delayed rel (Creon) See Rx Instructions .Route .COMPLEX 02/14/22 [History Confirmed 05/31/22] ondansetron HCl 4 mg tablet 4 mg PO TID 02/14/22 [History Confirmed 05/31/22] acetaminophen 325 mg tablet 650 mg PO Q6HR PRN Headache #60 tabs 02/19/22 [Rx Confirmed 05/31/22] loratadine 10 mg tablet 10 mg PO DAILY #30 tabs 02/19/22 [Rx Confirmed 05/31/22] melatonin 3 mg tablet 3 mg PO BEDTIME #30 tabs 02/19/22 [Rx Confirmed 05/31/22] pseudoephedrine HCl 30 mg tablet 30 mg PO Q6HR PRN Congestion/ sinus headache #30 tabs 02/19/22 [Rx Confirmed 05/31/22] apixaban 5 mg tablet (Eliquis) 5 mg PO BID 05/31/22 [History Confirmed 05/31/22] gabapentin 400 mg capsule 800 mg PO QID 05/31/22 [History Confirmed 05/31/22] Visit Medications (administered) Generic Name Dose Route Start Last Admin Trade Name Alicia PRN Reason Stop Dose Admin Apixaban 5 mg 05/31/22 21:00 06/01/22 09:15 Apixaban 5 Mg Tablet PO 5 mg BID JOSE ANTONIO Administration Buspirone HCl 20 mg 05/31/22 21:00 06/01/22 09:00 Buspirone 5 Mg Tablet PO 20 mg TID JOSE ANTONIO Administration Dextrose 25 gm 06/01/22 00:04 06/01/22 11:11 Dextrose 50 % In Water 25 Gm/50 Ml Syringe IV 12.5 gm PRN PRN Administration Hypoglycemia Fentanyl 25 mcg 05/31/22 13:27 05/31/22 18:57 Fentanyl 100 Mcg/2 Ml Inj IV 25 mcg Q1H PRN Administration Pain, Severe (7-10) Gabapentin 800 mg 05/31/22 21:00 06/01/22 13:04 Gabapentin 400 Mg Capsule PO 800 mg QID JOSE ANTONIO Administration Hydrocortisone 50 mg 06/01/22 12:00 06/01/22 12:05 Hydrocortisone 100 Mg/2 Ml Vial IV 50 mg Q6HR JOSE ANTONIO Administration Hydromorphone HCl 0.5 mg 05/31/22 20:27 06/01/22 09:16 Hydromorphone 0.5 Mg Inj IV 0.5 mg Q3H PRN Administration Pain, Moderate (4-6) INSULIN DRIP PREMIX 100 unit in 100 mls @ 2 mls/hr 05/31/22 18:00 06/01/22 12:08 Myxredlin Drip Premix IV 0.5 mls/hr TITRATE JOSE ANTONIO 0.5 mls/hr Titration Protocol Piperacillin Sod/Tazobactam 100 mls @ 25 mls/hr 06/01/22 00:00 06/01/22 09:15 Sod 3.375 gm/ Sodium Chloride IV 25 mls/hr Q8H JOSE ANTONIO Administration Dextrose/Sodium Chloride 1,000 mls @ 150 mls/hr 05/31/22 18:15 06/01/22 02:30 Dextrose 5%-0.9% Ns IV 0 mls/hr CONT JOSE ANTONIO Infusion Dextrose 1,000 mls @ 0 mls/hr 05/31/22 22:45 06/01/22 11:06 D10w IV 97 mls/hr CONT JOSE ANTONIO Administration Per Protocol NOREPINEPHRINE BITARTRATE/D5W 4 mg in 250 mls @ 30 mls/hr 05/31/22 23:39 06/01/22 06:30 Levophed IV 1 mcg/min TITRATE JOSE ANTONIO 3.75 mls/hr Titration Protocol 8 MCG/MIN Dextrose/Sodium Chloride 1,000 mls @ 100 mls/hr 06/01/22 05:45 06/01/22 11:16 Dextrose 5%-0.45% Ns IV 0 mls/hr CONT JOSE ANTONIO Infusion Loratadine 10 mg 06/01/22 09:00 06/01/22 09:16 Loratadine 10 Mg Tablet PO 10 mg DAILY JOSE ANTONIO Administration Melatonin 3 mg 05/31/22 21:00 05/31/22 20:43 Melatonin 3 Mg Tablet PO 3 mg BEDTIME JOSE ANTONIO Administration Ondansetron HCl 4 mg 05/31/22 17:54 06/01/22 09:16 Ondansetron 4 Mg/2 Ml Inj IV 4 mg Q6HR PRN Administration Nausea And Vomiting Objective Labs Result Diagrams: 06/01/22 08:35 06/01/22 08:35 Labs: Laboratory Results - last 24 hr 05/31/22 05/31/22 05/31/22 13:10 13:50 13:50 WBC RBC Hgb Hct MCV MCH MCHC RDW Plt Count Neut % (Auto) Lymph % (Auto) Carlton % (Auto) Eos % (Auto) Baso % (Auto) Neut # (Auto) Lymph # (Auto) Carlton # (Auto) Eos # (Auto) Baso # (Auto) RBC Morphology Anisocytosis Ovalocytes Antigo Cells VBG pH VBG pCO2 VBG pO2 VBG HCO3 VBG Total CO2 VBG O2 Saturation VBG Base Excess Sodium 137 Potassium 4.1 Chloride 109 H Carbon Dioxide 6 L* BUN 37 H Creatinine 1.14 H Estimated GFR > 60 BUN/Creatinine Ratio 32.5 H Glucose 122 H Lactate Calcium 7.8 L Phosphorus Magnesium Total Bilirubin 0.3 AST 23 ALT 14 Alkaline Phosphatase 189 H Total Creatine Kinase CK-MB (CK-2) CK-MB (CK-2) Rel Index Troponin I Total Protein 6.0 L Albumin 2.9 L Globulin 3.1 Albumin/Globulin Ratio 0.9 L Lipase Procalcitonin TSH 1.62 Urine Color Urine Appearance Urine pH Ur Specific [place] Urine Protein Urine Glucose (UA) Urine Ketones Urine Occult Blood Urine Nitrate Urine Bilirubin Urine Urobilinogen Ur Leukocyte Esterase Urine RBC Urine WBC Ur Squamous Epith Cells Ur Transition Epith Cell Urine Bacteria Ur Culture Indicated? Nasal Screen MRSA (PCR) Ketones A. baumannii (PCR) Lexi albicans (PCR) C. glabrata (PCR) C. krusei (PCR) C. parapsilosis (PCR) C. tropicalis (PCR) SARS-CoV-2 (PCR) Negative Enterobacteriac sp PCR E. cloacae complex PCR Enterococcus sp PCR E. coli (PCR) H. influenzae (PCR) Klebsiella oxytoca PCR Klebsiella pneumoniae List. monocytogenes PCR N. meningitidis (PCR) Proteus species (PCR) Serratia marcescens PCR Staphylococcus sp PCR Staph aureus (PCR) mecA-Methicil Res Gene Streptococcus sp PCR Group A Strep (PCR) Strep agalactiae (PCR) Strep pneumoniae (PCR) P. aeruginosa (PCR) Moises/B-Vanco Res Genes KPC-Carbap Res Gene PCR 05/31/22 05/31/22 05/31/22 13:58 14:02 15:17 WBC RBC Hgb Hct MCV MCH MCHC RDW Plt Count Neut % (Auto) Lymph % (Auto) [place] % (Auto) Eos % (Auto) Baso % (Auto) Neut # (Auto) Lymph # (Auto) [place] # (Auto) Eos # (Auto) Baso # (Auto) RBC Morphology Anisocytosis Ovalocytes Antigo Cells VBG pH 7.19 L* VBG pCO2 21.7 L VBG pO2 50 H VBG HCO3 8 L VBG Total CO2 9 L VBG O2 Saturation 76 H VBG Base Excess -20.0 L Sodium Potassium Chloride Carbon Dioxide BUN Creatinine Estimated GFR BUN/Creatinine Ratio Glucose Lactate Calcium Phosphorus Magnesium Total Bilirubin AST ALT Alkaline Phosphatase Total Creatine Kinase < 20 L CK-MB (CK-2) TNP CK-MB (CK-2) Rel Index TNP Troponin I < 0.012 Total Protein Albumin Globulin Albumin/Globulin Ratio Lipase < 10 L Procalcitonin TSH Urine Color Yellow Urine Appearance Cloudy Urine pH 5.0 Ur Specific [place] 1.010 Urine Protein 1+ H Urine Glucose (UA) Negative Urine Ketones 1+ H Urine Occult Blood 3+ H Urine Nitrate Positive H Urine Bilirubin Negative Urine Urobilinogen 0.2 Ur Leukocyte Esterase 2+ H Urine RBC None seen Urine WBC 30-100/hpf H Ur Squamous Epith Cells 0-1 /hpf Ur Transition Epith Cell 0-1/hpf Urine Bacteria Many (>30) H Ur Culture Indicated? Specimen cultured Nasal Screen MRSA (PCR) Ketones 3.22 H A. baumannii (PCR) Lexi albicans (PCR) C. glabrata (PCR) C. krusei (PCR) C. parapsilosis (PCR) C. tropicalis (PCR) SARS-CoV-2 (PCR) Enterobacteriac sp PCR E. cloacae complex PCR Enterococcus sp PCR E. coli (PCR) H. influenzae (PCR) Klebsiella oxytoca PCR Klebsiella pneumoniae List. monocytogenes PCR N. meningitidis (PCR) Proteus species (PCR) Serratia marcescens PCR Staphylococcus sp PCR Staph aureus (PCR) mecA-Methicil Res Gene Streptococcus sp PCR Group A Strep (PCR) Strep agalactiae (PCR) Strep pneumoniae (PCR) P. aeruginosa (PCR) Moises/B-Vanco Res Genes KPC-Carbap Res Gene PCR 05/31/22 05/31/22 05/31/22 16:55 16:55 17:07 WBC 20.8 H RBC 3.72 L Hgb 9.4 L Hct 29.9 L MCV 80.4 MCH 25.2 L MCHC 31.4 RDW 20.7 H Plt Count 593 H Neut % (Auto) 91.7 H Lymph % (Auto) 4.6 L Carlton % (Auto) 3.3 Eos % (Auto) 0.1 L Baso % (Auto) 0.3 Neut # (Auto) 18234 H Lymph # (Auto) 1000 L Carl[place] # (Auto) 700 Eos # (Auto) 0 Baso # (Auto) 100 RBC Morphology See below Anisocytosis 2+ H Ovalocytes 1+ H Juany Cells 1+ H VBG pH VBG pCO2 VBG pO2 VBG HCO3 VBG Total CO2 VBG O2 Saturation VBG Base Excess Sodium Potassium Chloride Carbon Dioxide BUN Creatinine Estimated GFR BUN/Creatinine Ratio Glucose Lactate 0.8 Calcium Phosphorus Magnesium Total Bilirubin AST ALT Alkaline Phosphatase Total Creatine Kinase CK-MB (CK-2) CK-MB (CK-2) Rel Index Troponin I Total Protein Albumin Globulin Albumin/Globulin Ratio Lipase Procalcitonin 269 H TSH Urine Color Urine Appearance Urine pH Ur Specific [place] Urine Protein Urine Glucose (UA) Urine Ketones Urine Occult Blood Urine Nitrate Urine Bilirubin Urine Urobilinogen Ur Leukocyte Esterase Urine RBC Urine WBC Ur Squamous Epith Cells Ur Transition Epith Cell Urine Bacteria Ur Culture Indicated? Nasal Screen MRSA (PCR) Ketones A. baumannii (PCR) Lexi albicans (PCR) C. glabrata (PCR) C. krusei (PCR) C. parapsilosis (PCR) C. tropicalis (PCR) SARS-CoV-2 (PCR) Enterobacteriac sp PCR E. cloacae complex PCR Enterococcus sp PCR E. coli (PCR) H. influenzae (PCR) Klebsiella oxytoca PCR Klebsiella pneumoniae List. monocytogenes PCR N. meningitidis (PCR) Proteus species (PCR) Serratia marcescens PCR Staphylococcus sp PCR Staph aureus (PCR) mecA-Methicil Res Gene Streptococcus sp PCR Group A Strep (PCR) Strep agalactiae (PCR) Strep pneumoniae (PCR) P. aeruginosa (PCR) Moises/B-Vanco Res Genes KPC-Carbap Res Gene PCR 05/31/22 05/31/22 05/31/22 17:17 17:30 22:35 WBC RBC Hgb Hct MCV MCH MCHC RDW Plt Count Neut % (Auto) Lymph % (Auto) [place] % (Auto) Eos % (Auto) Baso % (Auto) Neut # (Auto) Lymph # (Auto) [place] # (Auto) Eos # (Auto) Baso # (Auto) RBC Morphology Anisocytosis Ovalocytes Juany Cells VBG pH VBG pCO2 VBG pO2 VBG HCO3 VBG Total CO2 VBG O2 Saturation VBG Base Excess Sodium Potassium Chloride Carbon Dioxide BUN Creatinine Estimated GFR BUN/Creatinine Ratio Glucose Lactate Calcium Phosphorus 3.3 Magnesium 2.0 Total Bilirubin AST ALT Alkaline Phosphatase Total Creatine Kinase CK-MB (CK-2) CK-MB (CK-2) Rel Index Troponin I Total Protein Albumin Globulin Albumin/Globulin Ratio Lipase Procalcitonin TSH Urine Color Urine Appearance Urine pH Ur Specific [place] Urine Protein Urine Glucose (UA) Urine Ketones Urine Occult Blood Urine Nitrate Urine Bilirubin Urine Urobilinogen Ur Leukocyte Esterase Urine RBC Urine WBC Ur Squamous Epith Cells Ur Transition Epith Cell Urine Bacteria Ur Culture Indicated? Nasal Screen MRSA (PCR) Negative for mrsa Ketones A. baumannii (PCR) Not detected Lexi albicans (PCR) Not detected C. glabrata (PCR) Not detected C. krusei (PCR) Not detected C. parapsilosis (PCR) Not detected C. tropicalis (PCR) Not detected SARS-CoV-2 (PCR) Enterobacteriac sp PCR Detected H E. cloacae complex PCR Not detected Enterococcus sp PCR Not detected E. coli (PCR) Detected H H. influenzae (PCR) Not detected Klebsiella oxytoca PCR Not detected Klebsiella pneumoniae Not detected List. monocytogenes PCR Not detected N. meningitidis (PCR) Not detected Proteus species (PCR) Not detected Serratia marcescens PCR Not detected Staphylococcus sp PCR Not detected Staph aureus (PCR) Not detected mecA-Methicil Res Gene Not Reportable Streptococcus sp PCR Not detected Group A Strep (PCR) Not detected Strep agalactiae (PCR) Not detected Strep pneumoniae (PCR) Not detected P. aeruginosa (PCR) Not detected Moises/B-Vanco Res Genes Not Reportable KPC-Carbap Res Gene PCR Not detected 05/31/22 06/01/22 06/01/22 22:35 08:35 08:35 WBC 14.7 H RBC 2.95 L Hgb 7.6 L Hct 23.3 L MCV 78.9 L MCH 25.7 L MCHC 32.5 RDW 20.3 H Plt Count 451 H Neut % (Auto) 90.4 H Lymph % (Auto) 4.1 L [place] % (Auto) 5.3 Eos % (Auto) 0.1 L Baso % (Auto) 0.1 Neut # (Auto) 08842 H Lymph # (Auto) 600 L [place] # (Auto) 800 Eos # (Auto) 0 Baso # (Auto) 0 RBC Morphology See below Anisocytosis 1+ H Ovalocytes [place]igo Cells VBG pH VBG pCO2 VBG pO2 VBG HCO3 VBG Total CO2 VBG O2 Saturation VBG Base Excess Sodium 137 134 L Potassium 3.6 3.8 Chloride 115 H 113 H Carbon Dioxide 9 L* 11 L BUN 27 H 21 H Creatinine 0.95 0.84 Estimated GFR > 60 > 60 BUN/Creatinine Ratio 28.4 H 25.0 H Glucose 75 151 H Lactate Calcium 7.2 L 7.2 L Phosphorus Magnesium Total Bilirubin AST ALT Alkaline Phosphatase Total Creatine Kinase CK-MB (CK-2) CK-MB (CK-2) Rel Index Troponin I Total Protein Albumin Globulin Albumin/Globulin Ratio Lipase Procalcitonin TSH Urine Color Urine Appearance Urine pH Ur Specific [place] Urine Protein Urine Glucose (UA) Urine Ketones Urine Occult Blood Urine Nitrate Urine Bilirubin Urine Urobilinogen Ur Leukocyte Esterase Urine RBC Urine WBC Ur Squamous Epith Cells Ur Transition Epith Cell Urine Bacteria Ur Culture Indicated? Nasal Screen MRSA (PCR) Ketones A. baumannii (PCR) Lexi albicans (PCR) C. glabrata (PCR) C. krusei (PCR) C. parapsilosis (PCR) C. tropicalis (PCR) SARS-CoV-2 (PCR) Enterobacteriac sp PCR E. cloacae complex PCR Enterococcus sp PCR E. coli (PCR) H. influenzae (PCR) Klebsiella oxytoca PCR Klebsiella pneumoniae List. monocytogenes PCR N. meningitidis (PCR) Proteus species (PCR) Serratia marcescens PCR Staphylococcus sp PCR Staph aureus (PCR) mecA-Methicil Res Gene Streptococcus sp PCR Group A Strep (PCR) Strep agalactiae (PCR) Strep pneumoniae (PCR) P. aeruginosa (PCR) Moises/B-Vanco Res Genes KPC-Carbap Res Gene PCR 06/01/22 08:35 WBC RBC Hgb Hct MCV MCH MCHC RDW Plt Count Neut % (Auto) Lymph % (Auto) [place] % (Auto) Eos % (Auto) Baso % (Auto) Neut # (Auto) Lymph # (Auto) [place] # (Auto) Eos # (Auto) Baso # (Auto) RBC Morphology Anisocytosis Ovalocytes Ju[place] Cells VBG pH VBG pCO2 VBG pO2 VBG HCO3 VBG Total CO2 VBG O2 Saturation VBG Base Excess Sodium Potassium Chloride Carbon Dioxide BUN Creatinine Estimated GFR BUN/Creatinine Ratio Glucose Lactate Calcium Phosphorus Magnesium Total Bilirubin AST ALT Alkaline Phosphatase Total Creatine Kinase CK-MB (CK-2) CK-MB (CK-2) Rel Index Troponin I Total Protein Albumin Globulin Albumin/Globulin Ratio Lipase Procalcitonin TSH Urine Color Urine Appearance Urine pH Ur Specific [place] Urine Protein Urine Glucose (UA) Urine Ketones Urine Occult Blood Urine Nitrate Urine Bilirubin Urine Urobilinogen Ur Leukocyte Esterase Urine RBC Urine WBC Ur Squamous Epith Cells Ur Transition Epith Cell Urine Bacteria Ur Culture Indicated? Nasal Screen MRSA (PCR) Ketones 0.07 A. baumannii (PCR) Lexi albicans (PCR) C. glabrata (PCR) C. krusei (PCR) C. parapsilosis (PCR) C. tropicalis (PCR) SARS-CoV-2 (PCR) Enterobacteriac sp PCR E. cloacae complex PCR Enterococcus sp PCR E. coli (PCR) H. influenzae (PCR) Klebsiella oxytoca PCR Klebsiella pneumoniae List. monocytogenes PCR N. meningitidis (PCR) Proteus species (PCR) Serratia marcescens PCR Staphylococcus sp PCR Staph aureus (PCR) mecA-Methicil Res Gene Streptococcus sp PCR Group A Strep (PCR) Strep agalactiae (PCR) Strep pneumoniae (PCR) P. aeruginosa (PCR) Moises/B-Vanco Res Genes KPC-Carbap Res Gene PCR Exam Vital Signs (past 8 hours): - 06/01/22 05:30 06/01/22 05:30 06/01/22 06:02 Temperature Pulse Rate 106 H 110 H Respiratory Rate 21 23 Blood Pressure 101/59 L Pulse Oximetry 100 98 Oxygen Delivery Method Oxygen Flow Rate 06/01/22 06:02 06/01/22 06:07 06/01/22 07:05 Temperature 98.1 F Pulse Rate 105 H Respiratory Rate 20 Blood Pressure 101/58 L 103/57 L Pulse Oximetry 100 Oxygen Delivery Method Oxygen Flow Rate 06/01/22 07:05 06/01/22 07:30 06/01/22 07:30 Temperature Pulse Rate 112 H 109 H Respiratory Rate 25 H 36 H Blood Pressure 101/57 L Pulse Oximetry 98 100 Oxygen Delivery Method Oxygen Flow Rate 0 06/01/22 08:00 06/01/22 08:00 06/01/22 08:30 Temperature Pulse Rate 106 H Respiratory Rate 31 H Blood Pressure 101/57 L 101/56 L Pulse Oximetry 100 Oxygen Delivery Method Oxygen Flow Rate 06/01/22 08:30 06/01/22 09:00 06/01/22 09:00 Temperature Pulse Rate 104 H 112 H Respiratory Rate 23 27 H Blood Pressure 100/55 L Pulse Oximetry 100 99 Oxygen Delivery Method Oxygen Flow Rate 06/01/22 09:30 06/01/22 09:30 06/01/22 09:59 Temperature Pulse Rate 109 H 110 H Respiratory Rate 24 20 Blood Pressure 98/56 L Pulse Oximetry 99 99 Oxygen Delivery Method Oxygen Flow Rate 06/01/22 10:00 06/01/22 09:00 06/01/22 10:00 Temperature Pulse Rate 110 H Respiratory Rate 23 Blood Pressure 103/55 L Pulse Oximetry 99 Oxygen Delivery Method Room Air Oxygen Flow Rate 06/01/22 10:30 06/01/22 10:30 06/01/22 11:00 Temperature Pulse Rate 110 H Respiratory Rate 31 H Blood Pressure 98/55 L 98/53 L Pulse Oximetry 99 Oxygen Delivery Method Oxygen Flow Rate 06/01/22 11:00 06/01/22 11:30 06/01/22 11:30 Temperature 97.8 F Pulse Rate 111 H 108 H Respiratory Rate 20 26 H Blood Pressure 98/53 L Pulse Oximetry 100 100 Oxygen Delivery Method Oxygen Flow Rate 0 06/01/22 12:00 06/01/22 12:00 06/01/22 12:00 Temperature Pulse Rate 107 H Respiratory Rate 21 Blood Pressure 91/51 L Pulse Oximetry 100 Oxygen Delivery Method Room Air Oxygen Flow Rate 06/01/22 12:30 06/01/22 12:30 06/01/22 13:00 Temperature 98.4 F Pulse Rate 108 H Respiratory Rate 24 Blood Pressure 86/57 L 90/54 L Pulse Oximetry 99 Oxygen Delivery Method Oxygen Flow Rate 0 06/01/22 13:00 Temperature Pulse Rate 105 H Respiratory Rate 19 Blood Pressure Pulse Oximetry 99 Oxygen Delivery Method Oxygen Flow Rate Oxygen Delivery Method Room Air Oxygen Flow Rate 0 Narrative Exam Narrative: surrogate for exam is primary team Quality TeleICU VTE Deep Vein Thrombosis/Pulmonary Embolism Present on Admission: No Assessment & Plan Assessment and plan (1) Diabetic keto-acidosis: Status: Acute (2) Sepsis secondary to UTI: Status: Acute (3) Septic shock: Status: Acute (4) Type 1 diabetes: Problem details: Patient with type 1 diabetes will continue her on her usual dose of insulin., chronic, present on admission Status: Acute Assessment & Plan narrative: remains on room air, map at goal but on low dose levophed via TLC remains on DKA protocol,, her AG is closed, while I do beleive she may have a non gap acidosis, I do beleive given her history ketoacidosis is still plating a role and should remian on the insulin gtt trend bmp q 4 hours FS q1 hr on zosyn for e coli bacteremia, sensitivities are pending trend cbc dvt ppx agree with hydrocortisone for now, and will monitor Critical care time 35 min Time Spent With Patient Critical Care time: I spent a total of [] minutes of critical care time on this patient's care today; this time is exclusive of procedural time.
--- NOTE | 2022-06-01 13:47 | CM.DANOTE ---
Initial Discharge Plan Assessment: Patient is a 46 yo female, resident of [place], with history of insulin-dependent diabetes, DKA, paroxysmal atrial fibrillation, history of CVA, chronic pancreatitis, frequent UTI presents with one-week history of nausea, vomiting. She endorses rigors for the past week. Admitted for medical management of DKA, sepsis sec to UTI PCP: Jhonny Singletary Payer: Medicaid, [facility] Patient lives in [place] with her 63 year old sister and 2 nephews, her daughter lives in a trailer in front. Sister assists patient w/higher ADLs and transportation. 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 Patient expected to return home w/family, states she would like to go to [facility], outpatient PT. If HH is recommended upon DC, patient requests [facility] Patient has a social media manager, Talya, through [facility] P# [phone]; asked patient if she is closer to getting MARY ANNE in home care giving (?) and patient reports her sister is placing calls on her behalf ? Plan: DC home w/family to assist, r/o need for HH closer to DC Placed call to Zak at [facility], new HH order needed upon DC if patient requires or requests HH services TERA Gonzales Discharge Planning/Care Management CM Discharge Assessment Start: 06/01/22 13:32 Freq: Status: Active Protocol: Document 06/01/22 13:32 BRANDAN (Rec: 06/01/22 13:47 BRANDAN [id number]) Discharge Planning Assessment Assigned [employer] Operator TERA Kingsley DPOA/Assigned Designee Name family Yumiko Contact Information [phone] Advance Directives? No Advance Directives on File No History Provided By Patient,Medical Record Has Patient been admitted in last 30 No days? Comment Here in March. March 23-2021 Prior Living Arrangements House Household Members family Type of transporation used prior to Relies on Others admit Independent with ADL's Yes: w/walker Is patient alert and oriented? Yes Needs Assistance With Bathing,Meal Prep,Managing Medications,Home Chores / Shopping Patient/Family Preference OP PT Therapy Comment Pt desires to return home to prior living arrangement. Lives in home with family. Patient states she is hopeful to go to [facility] instead of having home health services; patient agreeable to [facility] if recommended Discharge Plan Home Transportation Arrangement Family Referrals Initiated None needed Additional Comment [facility] per notes, need new order if patient is discharging with HH services SNF/HH Preference [facility] Has Agency SNF been contacted Yes Comment Patient is not current, new order needed if patient is discharging
--- NOTE | 2022-06-01 16:27 | P.PN_ITS ---
Subjective Subjective Date Patient Seen: 06/01/22 Interval history: 46-year-old female with history of insulin-dependent diabetes, DKA, paroxysmal atrial fibrillation, history of CVA, chronic pancreatitis, frequent UTI presents with one-week history of nausea, vomiting.? She was found to be in DKA likely precipitated by acute pyelo. Blood and urine cultures from admission growing E coli. Patient had significant hypoglycemia overnight and this morning necessitating cessation of insulin drip and being put on D10 drip. Her baseline insulin requirements are quite low and she does experience frequent hypoglycemia at home in spite of frequent admissions for DKA. Now back on insulin drip at 0.5 units/hour. She has been septic with significant hypotension requiring pressor support. Has been on Levophed 1 mcg per kg per minute during the day. They were unsuccessful placing PICC line during the night and patient got right IJ central line today. She is complaining of persistent headache which is for her at home. She states her lower back pain is better. Exam Vital Signs (past 8 hours): - 06/01/22 08:30 06/01/22 08:30 06/01/22 09:00 Temperature Pulse Rate 104 H Respiratory Rate 23 Blood Pressure 101/56 L 100/55 L Pulse Oximetry 100 Oxygen Delivery Method Oxygen Flow Rate 06/01/22 09:00 06/01/22 09:30 06/01/22 09:30 Temperature Pulse Rate 112 H 109 H Respiratory Rate 27 H 24 Blood Pressure 98/56 L Pulse Oximetry 99 99 Oxygen Delivery Method Oxygen Flow Rate 06/01/22 09:59 06/01/22 10:00 06/01/22 09:00 Temperature Pulse Rate 110 H Respiratory Rate 20 Blood Pressure 103/55 L Pulse Oximetry 99 Oxygen Delivery Method Room Air Oxygen Flow Rate 06/01/22 10:00 06/01/22 10:30 06/01/22 10:30 Temperature Pulse Rate 110 H 110 H Respiratory Rate 23 31 H Blood Pressure 98/55 L Pulse Oximetry 99 99 Oxygen Delivery Method Oxygen Flow Rate 06/01/22 11:00 06/01/22 11:00 06/01/22 11:30 Temperature 97.8 F Pulse Rate 111 H Respiratory Rate 20 Blood Pressure 98/53 L 98/53 L Pulse Oximetry 100 Oxygen Delivery Method Oxygen Flow Rate 0 06/01/22 11:30 06/01/22 12:00 06/01/22 12:00 Temperature Pulse Rate 108 H 107 H Respiratory Rate 26 H 21 Blood Pressure 91/51 L Pulse Oximetry 100 100 Oxygen Delivery Method Oxygen Flow Rate 06/01/22 12:00 06/01/22 12:30 06/01/22 12:30 Temperature 98.4 F Pulse Rate 108 H Respiratory Rate 24 Blood Pressure 86/57 L Pulse Oximetry 99 Oxygen Delivery Method Room Air Oxygen Flow Rate 0 06/01/22 13:00 06/01/22 13:00 06/01/22 13:30 Temperature Pulse Rate 105 H 106 H Respiratory Rate 19 22 Blood Pressure 90/54 L Pulse Oximetry 99 100 Oxygen Delivery Method Oxygen Flow Rate 06/01/22 14:00 06/01/22 14:30 06/01/22 15:00 Temperature Pulse Rate 112 H 102 H 104 H Respiratory Rate 50 H 23 23 Blood Pressure Pulse Oximetry 99 98 99 Oxygen Delivery Method Oxygen Flow Rate 06/01/22 15:30 06/01/22 15:40 06/01/22 15:41 Temperature 98.2 F Pulse Rate 101 H 111 H Respiratory Rate 22 36 H Blood Pressure 98/78 Pulse Oximetry 100 91 Oxygen Delivery Method Oxygen Flow Rate 0 06/01/22 15:41 06/01/22 16:00 06/01/22 16:00 Temperature Pulse Rate 106 H 101 H Respiratory Rate 28 H 25 H Blood Pressure 99/60 Pulse Oximetry 95 99 Oxygen Delivery Method Oxygen Flow Rate Oxygen Delivery Method Room Air Oxygen Flow Rate 0 Narrative Exam Narrative: General: Alert, cooperative Lungs: Clear to auscultation Heart: Regular rhythm Abdomen: Soft Extremity: No edema Neurological: Oriented Objective Labs Result Diagrams: 06/01/22 08:35 06/01/22 08:35 Labs: Laboratory Results - last 24 hr 05/31/22 05/31/22 05/31/22 15:17 16:55 16:55 WBC RBC Hgb Hct MCV MCH MCHC RDW Plt Count Neut % (Auto) Lymph % (Auto) [place] % (Auto) Eos % (Auto) Baso % (Auto) Neut # (Auto) Lymph # (Auto) [place] # (Auto) Eos # (Auto) Baso # (Auto) RBC Morphology Anisocytosis Ovalocytes [place] Cells Sodium Potassium Chloride Carbon Dioxide BUN Creatinine Estimated GFR BUN/Creatinine Ratio Glucose Lactate 0.8 Calcium Phosphorus Magnesium Procalcitonin 269 H Urine Color Yellow Urine Appearance Cloudy Urine pH 5.0 Ur Specific [place] 1.010 Urine Protein 1+ H Urine Glucose (UA) Negative Urine Ketones 1+ H Urine Occult Blood 3+ H Urine Nitrate Positive H Urine Bilirubin Negative Urine Urobilinogen 0.2 Ur Leukocyte Esterase 2+ H Urine RBC None seen Urine WBC 30-100/hpf H Ur Squamous Epith Cells 0-1 /hpf Ur Transition Epith Cell 0-1/hpf Urine Bacteria Many (>30) H Ur Culture Indicated? Specimen cultured Nasal Screen MRSA (PCR) Ketones A. baumannii (PCR) Lexi albicans (PCR) C. glabrata (PCR) C. krusei (PCR) C. parapsilosis (PCR) C. tropicalis (PCR) Enterobacteriac sp PCR E. cloacae complex PCR Enterococcus sp PCR E. coli (PCR) H. influenzae (PCR) Klebsiella oxytoca PCR Klebsiella pneumoniae List. monocytogenes PCR N. meningitidis (PCR) Proteus species (PCR) Serratia marcescens PCR Staphylococcus sp PCR Staph aureus (PCR) mecA-Methicil Res Gene Streptococcus sp PCR Group A Strep (PCR) Strep agalactiae (PCR) Strep pneumoniae (PCR) P. aeruginosa (PCR) Moises/B-Vanco Res Genes KPC-Carbap Res Gene PCR 05/31/22 05/31/22 05/31/22 17:07 17:17 17:30 WBC 20.8 H RBC 3.72 L Hgb 9.4 L Hct 29.9 L MCV 80.4 MCH 25.2 L MCHC 31.4 RDW 20.7 H Plt Count 593 H Neut % (Auto) 91.7 H Lymph % (Auto) 4.6 L [place] % (Auto) 3.3 Eos % (Auto) 0.1 L Baso % (Auto) 0.3 Neut # (Auto) 80614 H Lymph # (Auto) 1000 L [place] # (Auto) 700 Eos # (Auto) 0 Baso # (Auto) 100 RBC Morphology See below Anisocytosis 2+ H Ovalocytes 1+ H [place] Cells 1+ H Sodium Potassium Chloride Carbon Dioxide BUN Creatinine Estimated GFR BUN/Creatinine Ratio Glucose Lactate Calcium Phosphorus Magnesium Procalcitonin Urine Color Urine Appearance Urine pH Ur Specific [place] Urine Protein Urine Glucose (UA) Urine Ketones Urine Occult Blood Urine Nitrate Urine Bilirubin Urine Urobilinogen Ur Leukocyte Esterase Urine RBC Urine WBC Ur Squamous Epith Cells Ur Transition Epith Cell Urine Bacteria Ur Culture Indicated? Nasal Screen MRSA (PCR) Negative for mrsa Ketones A. baumannii (PCR) Not detected Lexi albicans (PCR) Not detected C. glabrata (PCR) Not detected C. krusei (PCR) Not detected C. parapsilosis (PCR) Not detected C. tropicalis (PCR) Not detected Enterobacteriac sp PCR Detected H E. cloacae complex PCR Not detected Enterococcus sp PCR Not detected E. coli (PCR) Detected H H. influenzae (PCR) Not detected Klebsiella oxytoca PCR Not detected Klebsiella pneumoniae Not detected List. monocytogenes PCR Not detected N. meningitidis (PCR) Not detected Proteus species (PCR) Not detected Serratia marcescens PCR Not detected Staphylococcus sp PCR Not detected Staph aureus (PCR) Not detected mecA-Methicil Res Gene Not Reportable Streptococcus sp PCR Not detected Group A Strep (PCR) Not detected Strep agalactiae (PCR) Not detected Strep pneumoniae (PCR) Not detected P. aeruginosa (PCR) Not detected Moises/B-Vanco Res Genes Not Reportable KPC-Carbap Res Gene PCR Not detected 05/31/22 05/31/22 06/01/22 22:35 22:35 08:35 WBC RBC Hgb Hct MCV MCH MCHC RDW Plt Count Neut % (Auto) Lymph % (Auto) [place] % (Auto) Eos % (Auto) Baso % (Auto) Neut # (Auto) Lymph # (Auto) [place] # (Auto) Eos # (Auto) Baso # (Auto) RBC Morphology Anisocytosis Ovalocytes [place] Cells Sodium 137 134 L Potassium 3.6 3.8 Chloride 115 H 113 H Carbon Dioxide 9 L* 11 L BUN 27 H 21 H Creatinine 0.95 0.84 Estimated GFR > 60 > 60 BUN/Creatinine Ratio 28.4 H 25.0 H Glucose 75 151 H Lactate Calcium 7.2 L 7.2 L Phosphorus 3.3 Magnesium 2.0 Procalcitonin Urine Color Urine Appearance Urine pH Ur Specific [place] Urine Protein Urine Glucose (UA) Urine Ketones Urine Occult Blood Urine Nitrate Urine Bilirubin Urine Urobilinogen Ur Leukocyte Esterase Urine RBC Urine WBC Ur Squamous Epith Cells Ur Transition Epith Cell Urine Bacteria Ur Culture Indicated? Nasal Screen MRSA (PCR) Ketones A. baumannii (PCR) Lexi albicans (PCR) C. glabrata (PCR) C. krusei (PCR) C. parapsilosis (PCR) C. tropicalis (PCR) Enterobacteriac sp PCR E. cloacae complex PCR Enterococcus sp PCR E. coli (PCR) H. influenzae (PCR) Klebsiella oxytoca PCR Klebsiella pneumoniae List. monocytogenes PCR N. meningitidis (PCR) Proteus species (PCR) Serratia marcescens PCR Staphylococcus sp PCR Staph aureus (PCR) mecA-Methicil Res Gene Streptococcus sp PCR Group A Strep (PCR) Strep agalactiae (PCR) Strep pneumoniae (PCR) P. aeruginosa (PCR) Moises/B-Vanco Res Genes KPC-Carbap Res Gene PCR 06/01/22 06/01/22 08:35 08:35 WBC 14.7 H RBC 2.95 L Hgb 7.6 L Hct 23.3 L MCV 78.9 L MCH 25.7 L MCHC 32.5 RDW 20.3 H Plt Count 451 H Neut % (Auto) 90.4 H Lymph % (Auto) 4.1 L [place] % (Auto) 5.3 Eos % (Auto) 0.1 L Baso % (Auto) 0.1 Neut # (Auto) 29022 H Lymph # (Auto) 600 L [place] # (Auto) 800 Eos # (Auto) 0 Baso # (Auto) 0 RBC Morphology See below Anisocytosis 1+ H Ovalocytes [place] Cells Sodium Potassium Chloride Carbon Dioxide BUN Creatinine Estimated GFR BUN/Creatinine Ratio Glucose Lactate Calcium Phosphorus Magnesium Procalcitonin Urine Color Urine Appearance Urine pH Ur Specific [place] Urine Protein Urine Glucose (UA) Urine Ketones Urine Occult Blood Urine Nitrate Urine Bilirubin Urine Urobilinogen Ur Leukocyte Esterase Urine RBC Urine WBC Ur Squamous Epith Cells Ur Transition Epith Cell Urine Bacteria Ur Culture Indicated? Nasal Screen MRSA (PCR) Ketones 0.07 A. baumannii (PCR) Lexi albicans (PCR) C. glabrata (PCR) C. krusei (PCR) C. parapsilosis (PCR) C. tropicalis (PCR) Enterobacteriac sp PCR E. cloacae complex PCR Enterococcus sp PCR E. coli (PCR) H. influenzae (PCR) Klebsiella oxytoca PCR Klebsiella pneumoniae List. monocytogenes PCR N. meningitidis (PCR) Proteus species (PCR) Serratia marcescens PCR Staphylococcus sp PCR Staph aureus (PCR) mecA-Methicil Res Gene Streptococcus sp PCR Group A Strep (PCR) Strep agalactiae (PCR) Strep pneumoniae (PCR) P. aeruginosa (PCR) Moises/B-Vanco Res Genes KPC-Carbap Res Gene PCR [facility] Medical History (Updated 06/01/22 @ 13:23 by Harsha Mckinley MD) Acute CVA (cerebrovascular accident) Alcohol intoxication Chronic atrial fibrillation with RVR Closed hip fracture COVID DKA (diabetic ketoacidoses) DKA (diabetic ketoacidosis) Fibromyalgia Gastroesophageal reflux disease Insulin dependent diabetes mellitus Lupus Osteoporosis Surgical History History of hip surgery Presence of pancreatic duct stent Family History Mother Diabetes mellitus Congestive heart failure Pancreatic cancer Father Diabetes mellitus Brother Diabetes mellitus Pancreatitis Sister Drug overdose Social History household members: family Smoking Status: Current every day smoker alcohol intake: never Assessment & Plan Assessment & Plan narrative: 1. Acute DKA, present on admission -patient appears ill with nausea and vomiting, metabolic acidosis with significant anion gap, positive serum ketones and negative lactate -glucose 122 on admit -treatment complicated by recurrent hypoglycemia -anion gap closed but continue insulin drip 0.5 units/hour maintenance dose until 06/02 then hopefully transition to her basal bolus insulin regimen if able to eat -D5 1/2NS or D10 or fluids -clear liquid diet as tolerated, advance in a.m. 2. Septic shock secondary to acute pyelonephritis, right kidney, present on admission -on CT abdomen and pelvis there is enhancing foci in the right kidney most likely representing acute pyelo vs neoplasm -E coli growing in urine and blood cultures from admission -pleaded initial volume resuscitation -continue Zosyn pending antibiotic sensitivities -fentanyl 25 mcg as needed for back pain -titrate off pressor support as able -right IJ triple lumen placed on 06/01, monitor for signs of infection 3. Paroxysmal atrial fibrillation, history of -patient in sinus tachycardia on admit -recently started apixaban by cardiology, to continue during admission -does not appear to be on rate control agent as outpatient 4. History of C difficile colitis -patient had severe C diff 2 months [employer] and probably high school for recurrence, patient states ID specialist at recommended she go on oral vanco if taking antibiotic -not having diarrhea at this time -start p.o. vancomycin 125 mg b.i.d. for C diff prophylaxis Total critical care management time of up to 60 minutes during today's evaluation and management which was reviewed with tele ICU. Time Spent With Patient Critical Care time: I spent a total of [] minutes of critical care time on this patient's care today; this time is exclusive of procedural time. Quality VTE Deep Vein Thrombosis/Pulmonary Embolism Present on Admission: No
[2022-06-01 17:37] LABS: BUN Creatinine Ratio 22.8 (6-22); Blood Urea Nitrogen 18 mg/dL (7-17); Calcium 7.3 mg/dL (8.4-10.2); Chloride 116 mmol/L (98-107); Estimated Glomerular Filt Rate > 60 mL/min (>60); Glucose 152 mg/dL (70-100); Potassium 4.1 mmol/L (3.4-5.1); Sodium 137 mmol/L (137-145)
[2022-06-01 17:44] LABS: HCO3 VBG 11 mmol/L (23-28); PO2 VBG 109 mmHg (35-45); Total CO2 VBG 11 mmol/L (24-29)
[2022-06-01 17:45] LABS: Oxygen Saturation VBG 97 % (70-75)
[2022-06-01 17:49] LABS: Carbon Dioxide 10 mmol/L (22-32); HEMOLYSIS 18 (0-50)
--- NOTE | 2022-06-01 18:37 | PC.NURSE ---
Day shift note A/O x4, RA sats 98%, telemetry ST with HR in the 100s, c/o pain 6-8/10 in head and back pain meds administered as noted in emar, dka protocol being followed initially but was switched to dka metabolic acidosis, blood sugars checked hourly, insulin gtt infusing at 0.5units/hr, D5 1/2 NS infusing at 100ml /Hr, per Dr Mohamud. Levophed infusing at 1mcg/hr unable to titrate pt down due to soft BPs. IV access is JENIFFER midline, Central line RIJ both patient and infusing fluids per emar. Pt is on contact precautions for e coli in blood cultures. Uses bedside commode with one person assist. Bed low and lock, alarm set for safety will continue to monitor.
--- NOTE | 2022-06-01 20:53 | PM.ICURNDS ---
- Date Patient Seen: 06/01/22 Time Patient Seen: 20:53 :: This patient was seen via real time interactive two-way audiovisual telecommunication. Note: AG closed but Co2 remains 10 with ongoing NGMA secondary to hyperchloremic NGMA. Will start D5W+2 amps sodium bicarbonate infusion and continue insulin infusion per DKA protocol. Trend BMP every 4 hours. Transition to lantus and ISS once Co2 >17 and AG <12. Blood cx + E. Coli -> continue zosyn pending susceptibility. Will obtain repeat blood cx to document clearnace. Titrate levophed for MAP goal > 65. D/w RN at bedside.
[2022-06-01] MEDS: MELATONIN 3 MG TABLET PO (22:00)
[2022-06-01] MEDS: VANCOMYCIN 125 MG CAPSULE PO (22:00)
[2022-06-01] MEDS: SODIUM BICARB 8.4% VIAL 100 MEQ in DEXTROSE 5% WATER 1,000 ML 150 MEQ IV (22:01)
[2022-06-02] VITALS (51 sets, daily range): BP systolic 76–123; BP diastolic 47–80; PULSE 89–109; RESP 15–41; TEMP 36.5–36.7; O2SAT 94–99
[2022-06-02] MEDS: ACETAMINOPHEN 325 MG TABLET 650 MG PO (01:06)
[2022-06-02] MEDS: HYDROCORTISONE 100 MG/2 ML VIAL 50 MG IV ×3 (06:26→17:16)
[2022-06-02] MEDS: HYDROMORPHONE 0.5 MG INJ IV ×4 (06:53→22:08)
[2022-06-02] MEDS: ONDANSETRON 4 MG/2 ML INJ IV ×3 (06:53→22:08)
--- NOTE | 2022-06-02 07:40 | PC.NURSE ---
Rigger Chief Note-Patient is mostly oriented and uses call light appropriately, bed alarm on d/t occasional forgetfulness. Insulin gtt continues, titrated per protocol as ordered by Bindery Machine Setter/Set Up Operator, juana BG, see flow sheet. Na+ Bicarb w/ D5W infusing. Levophed gtt at 1mcg/min stopped at 2300, MAP >65, but restarted at 0700 for BP 76/47(57), denies dizziness. Up to BSC frequently voiding cloudy odiforus urine. Had lg formed stool, sent for C. diff and culture. Blood cultures also taken from . IV Dilaudid and Tylenol given for left shoulder pain.
[2022-06-02] MEDS: PIPERACILLIN/TAZO 3.375 GM in SODIUM CHLORIDE 0.9% 100 ML IV ×2 (08:00→15:25)
[2022-06-02 08:08] LABS: Alanine Aminotransferase 11 IU/L (<35); Albumin 2.3 g/dL (3.5-5.0); Albumin Globulin Ratio 0.7 (1.0-2.8); Alkaline Phosphatase 185 U/L (38-126); Aspartate Aminotransferase 17 IU/L (14-36); BUN Creatinine Ratio 20.3 (6-22); Bilirubin Total 0.2 mg/dL (0.2-1.3); Blood Urea Nitrogen 13 mg/dL (7-17); Calcium 7.4 mg/dL (8.4-10.2); Carbon Dioxide 14 mmol/L (22-32); Chloride 114 mmol/L (98-107); Estimated Glomerular Filt Rate > 60 mL/min (>60); Globulin 3.2 g/dL (1.7-4.1); Glucose 166 mg/dL (70-100); HEMOLYSIS < 15 (0-50); Potassium 3.5 mmol/L (3.4-5.1); Sodium 139 mmol/L (137-145); Total Protein 5.5 g/dL (6.3-8.2)
[2022-06-02] MEDS: APIXABAN 5 MG TABLET PO ×2 (09:24→22:05)
[2022-06-02] MEDS: LORATADINE 10 MG TABLET PO (09:24)
[2022-06-02] MEDS: BUSPIRONE 5 MG TABLET 20 MG PO ×3 (09:24→22:04)
[2022-06-02] MEDS: GABAPENTIN 400 MG CAPSULE 800 MG PO ×4 (09:24→22:05)
[2022-06-02] MEDS: VANCOMYCIN 125 MG CAPSULE PO ×2 (09:25→22:05)
[2022-06-02] MEDS: POTASSIUM CHLORIDE 20 MEQ TAB 40 MEQ PO (09:26)
[2022-06-02] MEDS: INSULIN DRIP PREMIX 100 UNIT/100 ML PLAST..BAG IV (10:06)
--- NOTE | 2022-06-02 12:03 | P.TELICUPN_ITS ---
Subjective Subjective IF CAMERA ACTIVATED, patient seen via real-time interactive audiovisual communication: Camera activated Date Patient Seen: 06/02/22 Consent obtained for tele-labeling associate care: Yes Patient Location: ICU Provider location (State): [place] Other participants/roles: RN Current Medications Current Medications Medications: Home Medications insulin aspart U-100 100 unit/mL (3 mL) subcutaneous pen (Novolog Flexpen U-100 Insulin aspart) 0 unit (0 mL) SUBCUT AC #3 units 02/12/18 [Rx Confirmed 05/31/22] buspirone 10 mg tablet 2 tab PO TID 12/08/18 [History Confirmed 05/31/22] cyclobenzaprine 10 mg tablet 10 mg PO TID PRN pain 12/08/18 [History Confirmed 05/31/22] insulin glargine 100 unit/mL (3 mL) subcutaneous pen 10 unit (0.1 mL) SUBCUT DAILY #0 mL 12/09/21 [Rx Confirmed 05/31/22] [id number] 24,000-76,000-120,000 unit capsule,delayed rel (Creon) See Rx Instructions .Route .COMPLEX 02/14/22 [History Confirmed 05/31/22] ondansetron HCl 4 mg tablet 4 mg PO TID 02/14/22 [History Confirmed 05/31/22] acetaminophen 325 mg tablet 650 mg PO Q6HR PRN Headache #60 tabs 02/19/22 [Rx Confirmed 05/31/22] loratadine 10 mg tablet 10 mg PO DAILY #30 tabs 02/19/22 [Rx Confirmed 05/31/22] melatonin 3 mg tablet 3 mg PO BEDTIME #30 tabs 02/19/22 [Rx Confirmed 05/31/22] pseudoephedrine HCl 30 mg tablet 30 mg PO Q6HR PRN Congestion/ sinus headache #30 tabs 02/19/22 [Rx Confirmed 05/31/22] apixaban 5 mg tablet (Eliquis) 5 mg PO BID 05/31/22 [History Confirmed 05/31/22] gabapentin 400 mg capsule 800 mg PO QID 05/31/22 [History Confirmed 05/31/22] Visit Medications (administered) Generic Name Dose Route Start Last Admin Trade Name Freq PRN Reason Stop Dose Admin Acetaminophen 650 mg 05/31/22 17:54 06/02/22 01:06 Acetaminophen 325 Mg Tablet PO 650 mg Q6HR PRN Administration Fever/Mild Pain (1-3) Apixaban 5 mg 05/31/22 21:00 06/02/22 09:24 Apixaban 5 Mg Tablet PO 5 mg BID JOSE ANTONIO Administration Buspirone HCl 20 mg 05/31/22 21:00 06/02/22 09:24 Buspirone 5 Mg Tablet PO 20 mg TID JOSE ANTONIO Administration Dextrose 25 gm 06/01/22 00:04 06/01/22 11:11 Dextrose 50 % In Water 25 Gm/50 Ml Syringe IV 12.5 gm PRN PRN Administration Hypoglycemia Gabapentin 800 mg 05/31/22 21:00 06/02/22 09:24 Gabapentin 400 Mg Capsule PO 800 mg QID JOSE ANTONIO Administration Heparin Sodium (Porcine) 50 unit 06/01/22 21:00 06/02/22 09:23 Heparin Flush (Cl/Picc/Mid-Line) 50 Unit/5 Ml Syringe IV 50 unit BID JOSE ANTONIO Administration Hydrocortisone 50 mg 06/01/22 12:00 06/02/22 06:26 Hydrocortisone 100 Mg/2 Ml Vial IV 50 mg Q6HR JOSE ANTONIO Administration Hydromorphone HCl 0.5 mg 05/31/22 20:27 06/02/22 06:53 Hydromorphone 0.5 Mg Inj IV 0.5 mg Q3H PRN Administration Pain, Moderate (4-6) INSULIN DRIP PREMIX 100 unit in 100 mls @ 2 mls/hr 05/31/22 18:00 06/02/22 10:06 Myxredlin Drip Premix IV 1 mls/hr TITRATE JOSE ANTONIO 1 mls/hr Administration Protocol Piperacillin Sod/Tazobactam 100 mls @ 25 mls/hr 06/01/22 00:00 06/02/22 08:00 Sod 3.375 gm/ Sodium Chloride IV 25 mls/hr Q8H JOSE ANTONIO Administration Dextrose/Sodium Chloride 1,000 mls @ 150 mls/hr 05/31/22 18:15 06/01/22 02:30 Dextrose 5%-0.9% Ns IV 0 mls/hr CONT JOSE ANTONIO Infusion Dextrose 1,000 mls @ 0 mls/hr 05/31/22 22:45 06/01/22 18:00 D10w IV 0 mls/hr CONT JOSE ANTONIO Infusion Per Protocol NOREPINEPHRINE BITARTRATE/D5W 4 mg in 250 mls @ 30 mls/hr 05/31/22 23:39 06/02/22 07:00 Levophed IV 1 mcg/min TITRATE JOSE ANTONIO 3.75 mls/hr Titration Protocol 8 MCG/MIN Dextrose/Sodium Chloride 1,000 mls @ 100 mls/hr 06/01/22 05:45 06/01/22 22:00 Dextrose 5%-0.45% Ns IV 0 mls/hr CONT JOSE ANTONIO Infusion Sodium Bicarbonate 100 meq/ 1,100 mls @ 150 mls/hr 06/01/22 21:00 06/02/22 06:53 Dextrose IV Infused CONT JOSE ANTONIO Infusion Loratadine 10 mg 06/01/22 09:00 06/02/22 09:24 Loratadine 10 Mg Tablet PO 10 mg DAILY JOSE ANTONIO Administration Melatonin 3 mg 05/31/22 21:00 06/01/22 22:00 Melatonin 3 Mg Tablet PO 3 mg BEDTIME JOSE ANTONIO Administration Ondansetron HCl 4 mg 05/31/22 17:54 06/02/22 06:53 Ondansetron 4 Mg/2 Ml Inj IV 4 mg Q6HR PRN Administration Nausea And Vomiting Vancomycin HCl 125 mg 06/01/22 21:00 06/02/22 09:25 Vancomycin 125 Mg Capsule PO 125 mg BID JOSE ANTONIO Administration Objective Labs Result Diagrams: 06/01/22 08:35 06/02/22 07:50 Labs: Laboratory Results - last 24 hr 06/01/22 06/01/22 06/01/22 16:00 17:00 17:25 VBG pH 7.20 L* VBG pCO2 27.0 L VBG pO2 109 H VBG HCO3 11 L VBG Total CO2 11 L VBG O2 Saturation 97 H VBG Base Excess -17.0 L Sodium 137 Potassium 4.1 Chloride 116 H Carbon Dioxide Cancelled 10 L BUN 18 H Creatinine 0.79 Estimated GFR > 60 BUN/Creatinine Ratio 22.8 H Glucose 152 H Calcium 7.3 L Total Bilirubin AST ALT Alkaline Phosphatase Total Protein Albumin Globulin Albumin/Globulin Ratio 06/02/22 07:50 VBG pH VBG pCO2 VBG pO2 VBG HCO3 VBG Total CO2 VBG O2 Saturation VBG Base Excess Sodium 139 Potassium 3.5 Chloride 114 H Carbon Dioxide 14 L BUN 13 Creatinine 0.64 Estimated GFR > 60 BUN/Creatinine Ratio 20.3 Glucose 166 H Calcium 7.4 L Total Bilirubin 0.2 AST 17 ALT 11 Alkaline Phosphatase 185 H Total Protein 5.5 L Albumin 2.3 L Globulin 3.2 Albumin/Globulin Ratio 0.7 L Exam Vital Signs (past 8 hours): - 06/02/22 05:00 06/02/22 05:00 06/02/22 05:00 Pulse Rate 98 H Respiratory Rate 21 Blood Pressure 102/64 Pulse Oximetry Oxygen Delivery Method Room Air 06/02/22 06:00 06/02/22 06:00 06/02/22 07:00 Pulse Rate 93 H Respiratory Rate 20 Blood Pressure 91/54 L 80/52 L Pulse Oximetry 99 Oxygen Delivery Method 06/02/22 07:00 06/02/22 07:01 06/02/22 07:01 Pulse Rate 93 H 93 H Respiratory Rate 19 19 Blood Pressure 76/47 L Pulse Oximetry Oxygen Delivery Method 06/02/22 07:08 06/02/22 07:08 06/02/22 07:15 Pulse Rate 99 H Respiratory Rate 18 Blood Pressure 99/57 L 102/61 Pulse Oximetry Oxygen Delivery Method 06/02/22 07:15 06/02/22 07:30 06/02/22 07:30 Pulse Rate 100 H 102 H Respiratory Rate 19 16 Blood Pressure 102/57 L Pulse Oximetry Oxygen Delivery Method 06/02/22 07:45 06/02/22 07:45 06/02/22 08:00 Pulse Rate 103 H Respiratory Rate 31 H Blood Pressure 100/59 L 93/52 L Pulse Oximetry Oxygen Delivery Method 06/02/22 08:00 06/02/22 08:15 06/02/22 08:15 Pulse Rate 101 H 102 H Respiratory Rate 17 15 Blood Pressure 102/56 L Pulse Oximetry Oxygen Delivery Method 06/02/22 08:30 06/02/22 08:30 06/02/22 08:45 Pulse Rate 103 H Respiratory Rate 16 Blood Pressure 100/59 L 97/64 Pulse Oximetry Oxygen Delivery Method 06/02/22 08:45 06/02/22 09:00 06/02/22 09:00 Pulse Rate 103 H 109 H Respiratory Rate 21 32 H Blood Pressure 94/65 Pulse Oximetry Oxygen Delivery Method 06/02/22 08:00 06/02/22 09:15 06/02/22 09:15 Pulse Rate 102 H Respiratory Rate 22 Blood Pressure 102/69 Pulse Oximetry Oxygen Delivery Method Room Air 06/02/22 09:30 06/02/22 09:30 06/02/22 09:46 Pulse Rate 106 H Respiratory Rate 29 H Blood Pressure 100/61 106/60 Pulse Oximetry Oxygen Delivery Method 06/02/22 09:46 06/02/22 10:00 06/02/22 10:00 Pulse Rate 107 H 103 H Respiratory Rate 25 H 41 H Blood Pressure 101/62 Pulse Oximetry Oxygen Delivery Method 06/02/22 10:15 06/02/22 10:15 06/02/22 10:30 Pulse Rate 101 H 100 H Respiratory Rate 37 H 26 H Blood Pressure 97/60 Pulse Oximetry Oxygen Delivery Method 06/02/22 10:30 06/02/22 10:45 06/02/22 10:45 Pulse Rate 101 H Respiratory Rate 26 H Blood Pressure 98/62 98/63 Pulse Oximetry Oxygen Delivery Method 06/02/22 11:00 06/02/22 11:00 Pulse Rate 97 H Respiratory Rate 22 Blood Pressure 99/62 Pulse Oximetry Oxygen Delivery Method Oxygen Delivery Method Room Air Oxygen Flow Rate 0 Narrative Exam Narrative: surrogate for exam is primary team Quality TeleICU VTE Deep Vein Thrombosis/Pulmonary Embolism Present on Admission: No Assessment & Plan Assessment and plan (1) Septic shock: Status: Acute (2) Sepsis secondary to UTI: Status: Acute (3) Diabetic keto-acidosis: Status: Acute Assessment & Plan narrative: remains on room air, map at goal but on low dose levophed via TLC remains on DKA protocol,, her AG is closed, while I do beleive she may have a non gap acidosis, I do beleive given her history ketoacidosis is still plating a role and should remian on the insulin gtt trend bmp q 4 hours FS q1 hr on zosyn for e coli bacteremia, sensitivities are pending trend cbc dvt ppx agree with hydrocortisone for now, and will monitor will start midodrine Critical care time 35 min Time Spent With Patient Critical Care time: I spent a total of [] minutes of critical care time on this patient's care today; this time is exclusive of procedural time.
[2022-06-02] MEDS: MIDODRINE HCL 5 MG TABLET 10 MG PO ×2 (12:05→17:49)
--- NOTE | 2022-06-02 13:07 | PM.PN.1 ---
Subjective Subjective Interval history: Patient denies having any diarrhea. She reports feeling better compared to admission. She is tolerating PO intake well. Exam Vital Signs (past 8 hours): - 06/02/22 06:00 06/02/22 06:00 06/02/22 07:00 Pulse Rate 93 H Respiratory Rate 20 Blood Pressure 91/54 L 80/52 L Pulse Oximetry 99 Oxygen Delivery Method 06/02/22 07:00 06/02/22 07:01 06/02/22 07:01 Pulse Rate 93 H 93 H Respiratory Rate 19 19 Blood Pressure 76/47 L Pulse Oximetry Oxygen Delivery Method 06/02/22 07:08 06/02/22 07:08 06/02/22 07:15 Pulse Rate 99 H Respiratory Rate 18 Blood Pressure 99/57 L 102/61 Pulse Oximetry Oxygen Delivery Method 06/02/22 07:15 06/02/22 07:30 06/02/22 07:30 Pulse Rate 100 H 102 H Respiratory Rate 19 16 Blood Pressure 102/57 L Pulse Oximetry Oxygen Delivery Method 06/02/22 07:45 06/02/22 07:45 06/02/22 08:00 Pulse Rate 103 H Respiratory Rate 31 H Blood Pressure 100/59 L 93/52 L Pulse Oximetry Oxygen Delivery Method 06/02/22 08:00 06/02/22 08:15 06/02/22 08:15 Pulse Rate 101 H 102 H Respiratory Rate 17 15 Blood Pressure 102/56 L Pulse Oximetry Oxygen Delivery Method 06/02/22 08:30 06/02/22 08:30 06/02/22 08:45 Pulse Rate 103 H Respiratory Rate 16 Blood Pressure 100/59 L 97/64 Pulse Oximetry Oxygen Delivery Method 06/02/22 08:45 06/02/22 09:00 06/02/22 09:00 Pulse Rate 103 H 109 H Respiratory Rate 21 32 H Blood Pressure 94/65 Pulse Oximetry Oxygen Delivery Method 06/02/22 08:00 06/02/22 09:15 06/02/22 09:15 Pulse Rate 102 H Respiratory Rate 22 Blood Pressure 102/69 Pulse Oximetry Oxygen Delivery Method Room Air 06/02/22 09:30 06/02/22 09:30 06/02/22 09:46 Pulse Rate 106 H Respiratory Rate 29 H Blood Pressure 100/61 106/60 Pulse Oximetry Oxygen Delivery Method 06/02/22 09:46 06/02/22 10:00 06/02/22 10:00 Pulse Rate 107 H 103 H Respiratory Rate 25 H 41 H Blood Pressure 101/62 Pulse Oximetry Oxygen Delivery Method 06/02/22 10:15 06/02/22 10:15 06/02/22 10:30 Pulse Rate 101 H 100 H Respiratory Rate 37 H 26 H Blood Pressure 97/60 Pulse Oximetry Oxygen Delivery Method 06/02/22 10:30 06/02/22 10:45 06/02/22 10:45 Pulse Rate 101 H Respiratory Rate 26 H Blood Pressure 98/62 98/63 Pulse Oximetry Oxygen Delivery Method 06/02/22 11:00 06/02/22 11:00 06/02/22 12:00 Pulse Rate 97 H Respiratory Rate 22 Blood Pressure 99/62 Pulse Oximetry Oxygen Delivery Method Room Air 06/02/22 11:15 06/02/22 11:15 06/02/22 11:30 Pulse Rate 97 H Respiratory Rate 23 Blood Pressure 99/62 106/67 Pulse Oximetry Oxygen Delivery Method 06/02/22 11:30 06/02/22 11:46 06/02/22 11:46 Pulse Rate 96 H 97 H Respiratory Rate 23 26 H Blood Pressure 102/66 Pulse Oximetry Oxygen Delivery Method 06/02/22 12:00 06/02/22 12:00 06/02/22 12:15 Pulse Rate 94 H Respiratory Rate 25 H Blood Pressure 104/68 101/68 Pulse Oximetry Oxygen Delivery Method 06/02/22 12:15 Pulse Rate 93 H Respiratory Rate 24 Blood Pressure Pulse Oximetry Oxygen Delivery Method Oxygen Delivery Method Room Air Oxygen Flow Rate 0 Const Other: Patient laying in bed comfortably upon my entering the room, watching TV, and appears older than stated age, and not in apparent acute distress [facility] Other: Edentulous Eyes Other: No scleral icterus appreciated Resp Other: Clear to auscultation bilaterally Cardio Other: RRR, S1 and S2 heart sounds normal, no extra heart sounds or murmurs noted GI Other: Soft, non-distended, non-tender, bowel sounds present Skin Other: No grossly abnormal skin lesions noted Extrem Other: Palpable dorsalis pedis pulses bilaterally Objective Labs Result Diagrams: 06/01/22 08:35 06/02/22 07:50 Labs: Laboratory Results - last 24 hr 06/01/22 06/01/2222 16:00 17:00 17:25 VBG pH 7.20 L* VBG pCO2 27.0 L VBG pO2 109 H VBG HCO3 11 L VBG Total CO2 11 L VBG O2 Saturation 97 H VBG Base Excess -17.0 L Sodium 137 Potassium 4.1 Chloride 116 H Carbon Dioxide Cancelled 10 L BUN 18 H Creatinine 0.79 Estimated GFR > 60 BUN/Creatinine Ratio 22.8 H Glucose 152 H Calcium 7.3 L Total Bilirubin AST ALT Alkaline Phosphatase Total Protein Albumin Globulin Albumin/Globulin Ratio 06/02/22 07:50 VBG pH VBG pCO2 VBG pO2 VBG HCO3 VBG Total CO2 VBG O2 Saturation VBG Base Excess Sodium 139 Potassium 3.5 Chloride 114 H Carbon Dioxide 14 L BUN 13 Creatinine 0.64 Estimated GFR > 60 BUN/Creatinine Ratio 20.3 Glucose 166 H Calcium 7.4 L Total Bilirubin 0.2 AST 17 ALT 11 Alkaline Phosphatase 185 H Total Protein 5.5 L Albumin 2.3 L Globulin 3.2 Albumin/Globulin Ratio 0.7 L [facility] Medical History (Updated 06/01/22 @ 13:23 by Harsha Mckinley MD) Acute CVA (cerebrovascular accident) Alcohol intoxication Chronic atrial fibrillation with RVR Closed hip fracture COVID DKA (diabetic ketoacidoses) DKA (diabetic ketoacidosis) Fibromyalgia Gastroesophageal reflux disease Insulin dependent diabetes mellitus Lupus Osteoporosis Surgical History History of hip surgery Presence of pancreatic duct stent Family History Mother Diabetes mellitus Congestive heart failure Pancreatic cancer Father Diabetes mellitus Brother Diabetes mellitus Pancreatitis Sister Drug overdose Social History household members: family Smoking Status: Current every day smoker alcohol intake: never Assessment & Plan Assessment and plan (1) Septic shock: Status: Acute (2) Sepsis secondary to UTI: Status: Acute (3) Diabetic keto-acidosis: Status: Acute Assessment & Plan narrative: 1. Acute DKA, present on admission -patient appears ill with nausea and vomiting, metabolic acidosis with significant anion gap, positive serum ketones and negative lactate -glucose 122 on admit -treatment complicated by recurrent hypoglycemia -anion gap closed but continue insulin drip 0.5 units/hour maintenance dose until 06/02 then hopefully transition to her basal bolus insulin regimen if able to eat -D5 1/2NS or D10 or fluids -clear liquid diet as tolerated, advance in a.m. 2. Septic shock secondary to acute pyelonephritis, right kidney, present on admission -on CT abdomen and pelvis there is enhancing foci in the right kidney most likely representing acute pyelo -E coli growing in urine and blood cultures from admission -pleaded initial volume resuscitation -continue IV Zosyn pending antibiotic sensitivities -fentanyl 25 mcg as needed for back pain -titrate off pressor support as able -right IJ triple lumen placed on 06/01, monitor for signs of infection 3. Paroxysmal atrial fibrillation, history of -patient in sinus tachycardia on admit -recently started apixaban by cardiology, to continue during admission -does not appear to be on rate control agent as outpatient 4. History of C difficile colitis -patient had severe C diff 2 months [employer] and probably high school for recurrence, patient states ID specialist at recommended she go on oral vanco if taking antibiotic -not having diarrhea at this time -start p.o. vancomycin 125 mg b.i.d. for C diff prophylaxis 5. Severe protein-calorie malnutrition -this is adversely affecting healing times of all the patient's acute and chronic conditions Code status: Full code I confirm that the patient's advance care plan is present, code status is documented and listed in the patient's medical record. I have utilized all available immediate resources to obtain, update, or review the patient's current medications. Time Spent With Patient Critical Care time: I spent a total of [] minutes of critical care time on this patient's care today; this time is exclusive of procedural time. Quality VTE Deep Vein Thrombosis/Pulmonary Embolism Present on Admission: No MIPS - Admit I confirm the patient?s Advance Care Plan is present, Code status is documented, Surrogate decision maker is in patient?s record [If Yes, STOP here]: Yes
[2022-06-02] MEDS: CYCLOBENZAPRINE 10 MG TABLET PO (13:30)
[2022-06-02 14:46] LABS: Hemoglobin 8.1 g/dL (12.0-16.0); Mean Corpuscular HGB Conc 32.6 % (30-36); Mean Corpuscular Hemoglobin 25.1 PG (26-34); Mean Corpuscular Volume 77.1 fL (80-100); Platelet Count 602 X10^3/uL (150-400); Red Blood Cell Count 3.24 X10^6/uL (4.0-5.2); Red Cell Distribution Width 20.5 % (11.6-14.8); White Blood Cell Count 18.9 X10^3/uL (4.5-11.0)
[2022-06-02 14:49] LABS: Add Manual Diff / Slide Review YES
[2022-06-02 15:07] LABS: Anisocytosis 2+; Neutrophils Absolute Manual 17766 /uL (3000-5900); Platelet Estimate Incr; Poikilocytosis 1+; Total Cells Counted 100
[2022-06-02 15:19] LABS: BUN Creatinine Ratio 17.5 (6-22); Blood Urea Nitrogen 11 mg/dL (7-17); Calcium 7.5 mg/dL (8.4-10.2); Carbon Dioxide 16 mmol/L (22-32); Chloride 113 mmol/L (98-107); Estimated Glomerular Filt Rate > 60 mL/min (>60); Glucose 140 mg/dL (70-100); Potassium 4.2 mmol/L (3.4-5.1); Sodium 139 mmol/L (137-145)
[2022-06-02 15:25] LABS: HEMOLYSIS < 15 (0-50)
--- NOTE | 2022-06-02 16:27 | PC.NURSE ---
Addendum entered by Bailey Smith R.N. 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 Helped pt back to bed, reconnected monitoring equipment and set bed alarm. Will continue to monitor Original Note: A/O x4, RA sats 98%, telemetry ST with HR in the 100s, c/o pain 6-8/10 in head and back pain meds administered as noted in emar, dka protocol being followed , blood sugars checked hourly, insulin infusing per protocol,but no fluids at this time per hospitals[facility]. Levophed infusing at 1mcg/hr unable to titrate pt down due to soft BPs, pt was off levophed last night, but needed to be restarted this am due to map below 65. IV access is JENIFFER midline, Central line RIJ both patient and infusing fluids per emar. Pt is on contact precautions for e coli in blood cultures. Uses bedside commode with one person assist. Bed low and lock, alarm set for safety will continue to monitor.
--- NOTE | 2022-06-02 20:17 | PM.ICURNDS ---
- Date Patient Seen: 06/02/22 Time Patient Seen: 20:17 :: This patient was seen via real time interactive two-way audiovisual telecommunication. Note: Patient is on levophed 1 mcg w/ MAP 83. On insulin infusion per DKA protocol. Co2 is improving. Repeat BMP pending. If CO2 > 17 then AG <121 then will transition her to lantus and ISS. D/w patient and RN at bedside.
[2022-06-02 20:30] LABS: Blood Urea Nitrogen 11 mg/dL (7-17); Calcium 7.4 mg/dL (8.4-10.2); Carbon Dioxide 17 mmol/L (22-32); Chloride 115 mmol/L (98-107); Estimated Glomerular Filt Rate > 60 mL/min (>60); Glucose 163 mg/dL (70-100); HEMOLYSIS < 15 (0-50); Potassium 3.9 mmol/L (3.4-5.1); Sodium 139 mmol/L (137-145)
[2022-06-02] MEDS: MELATONIN 3 MG TABLET PO (22:06)
[2022-06-02] MEDS: INSULIN GLARGINE 100 UNIT/ML 3ML PEN 12 UNIT SUBCUT (22:07)
[2022-06-03] VITALS (20 sets, daily range): BP systolic 94–117; BP diastolic 54–78; PULSE 90–99; RESP 13–27; TEMP 36.2–37.3; O2SAT 94–97
[2022-06-03] MEDS: HYDROCORTISONE 100 MG/2 ML VIAL 50 MG IV ×2 (00:07→05:57)
[2022-06-03] MEDS: PIPERACILLIN/TAZO 3.375 GM in SODIUM CHLORIDE 0.9% 100 ML IV ×2 (00:07→08:21)
[2022-06-03 00:15] LABS: Blood Urea Nitrogen 11 mg/dL (7-17); Calcium 7.5 mg/dL (8.4-10.2); Carbon Dioxide 16 mmol/L (22-32); Chloride 114 mmol/L (98-107); Estimated Glomerular Filt Rate > 60 mL/min (>60); Glucose 157 mg/dL (70-100); HEMOLYSIS < 15 (0-50); Potassium 3.7 mmol/L (3.4-5.1); Sodium 139 mmol/L (137-145)
[2022-06-03 05:57] LABS: Add Manual Diff / Slide Review NO; Basophils Absolute Auto 0 /uL (0-100); Basophils Percent Auto 0.1 % (0-2); Eosinophils Absolute Auto 0 /uL (0-450); Hematocrit 23.5 % (36-46); Hemoglobin 7.7 g/dL (12.0-16.0); Lymphocytes Absolute Auto 800 /uL (1100-4500); Lymphocytes Percent Auto 3.9 % (25-40); Mean Corpuscular HGB Conc 32.8 % (30-36); Mean Corpuscular Hemoglobin 25.2 PG (26-34); Mean Corpuscular Volume 76.7 fL (80-100); Monocytes Absolute Auto 800 /uL (0-900); Monocytes Percent Auto 4.1 % (3-14); Neutrophils Absolute Auto 18200 /uL (1500-7000); Neutrophils Percent Auto 91.9 % (50-75); Platelet Count 611 X10^3/uL (150-400); Red Blood Cell Count 3.07 X10^6/uL (4.0-5.2); Red Cell Distribution Width 20.9 % (11.6-14.8); White Blood Cell Count 19.8 X10^3/uL (4.5-11.0)
[2022-06-03] MEDS: ONDANSETRON 4 MG/2 ML INJ IV ×2 (05:57→16:11)
[2022-06-03] MEDS: MIDODRINE HCL 5 MG TABLET 10 MG PO ×3 (05:57→17:37)
[2022-06-03] MEDS: HYDROMORPHONE 0.5 MG INJ IV ×4 (05:57→20:39)
--- NOTE | 2022-06-03 06:05 | PC.NURSE ---
Addendum entered by Marcy Estevez R.N. 06/03/22 06:38: As preceptor, I agree with Shonda RNs assessments, interventions, and documentation. Original Note: Upon arrival on shift, pt stable. Rounded with mortgage loan counselor. Ordered to stop Levo, follow up with blood cultures and to consult with hospitalist to transition pt to Lantus if 8 pm labs looked stable. Phoned hospitalists when labs resulted. Ordered 12 units Lantus and to stop Insulin drip. Pt had adequate urine output and pain was managed through the night with medication. Pt BPs have been on the softer side but MAPs remained >65. Gave vancomycin and zosyn. Pt A&Ox4.
[2022-06-03 06:25] LABS: BUN Creatinine Ratio 15.6 (6-22); Blood Urea Nitrogen 10 mg/dL (7-17); Calcium 7.5 mg/dL (8.4-10.2); Carbon Dioxide 18 mmol/L (22-32); Chloride 115 mmol/L (98-107); Estimated Glomerular Filt Rate > 60 mL/min (>60); Glucose 95 mg/dL (70-100); HEMOLYSIS < 15 (0-50); Potassium 3.9 mmol/L (3.4-5.1); Sodium 140 mmol/L (137-145)
[2022-06-03 07:45] LABS: Anisocytosis 2+; Platelet Estimate Increased on smear
[2022-06-03 07:46] LABS: Poikilocytosis 1+
[2022-06-03] MEDS: LORATADINE 10 MG TABLET PO (08:20)
[2022-06-03] MEDS: APIXABAN 5 MG TABLET PO ×2 (08:20→20:39)
[2022-06-03] MEDS: GABAPENTIN 400 MG CAPSULE 800 MG PO ×4 (08:20→20:39)
[2022-06-03] MEDS: VANCOMYCIN 125 MG CAPSULE PO ×2 (08:20→20:39)
[2022-06-03] MEDS: BUSPIRONE 5 MG TABLET 20 MG PO ×3 (09:08→20:39)
--- NOTE | 2022-06-03 09:13 | P.TELICUPN_ITS ---
Subjective Subjective IF CAMERA ACTIVATED, patient seen via real-time interactive audiovisual communication: Camera activated Consent obtained for tele-bleaching supervisor care: Yes Patient Location: ICU Provider location (State): Other participants/roles: RN Interval history: Pt off pressors, BP improved, started on liquid diet, GAP closed and off IV insulin drip Current Medications Current Medications Medications: Home Medications insulin aspart U-100 100 unit/mL (3 mL) subcutaneous pen (Novolog Flexpen U-100 Insulin aspart) 0 unit (0 mL) SUBCUT AC #3 units 02/12/18 [Rx Confirmed 05/31/22] buspirone 10 mg tablet 2 tab PO TID 12/08/18 [History Confirmed 05/31/22] cyclobenzaprine 10 mg tablet 10 mg PO TID PRN pain 12/08/18 [History Confirmed 05/31/22] insulin glargine 100 unit/mL (3 mL) subcutaneous pen 10 unit (0.1 mL) SUBCUT DAILY #0 mL 12/09/21 [Rx Confirmed 05/31/22] [id number] 24,000-76,000-120,000 unit capsule,delayed rel (Creon) See Rx Instructions .Route .COMPLEX 02/14/22 [History Confirmed 05/31/22] ondansetron HCl 4 mg tablet 4 mg PO TID 02/14/22 [History Confirmed 05/31/22] acetaminophen 325 mg tablet 650 mg PO Q6HR PRN Headache #60 tabs 02/19/22 [Rx Confirmed 05/31/22] loratadine 10 mg tablet 10 mg PO DAILY #30 tabs 02/19/22 [Rx Confirmed 05/31/22] melatonin 3 mg tablet 3 mg PO BEDTIME #30 tabs 02/19/22 [Rx Confirmed 05/31/22] pseudoephedrine HCl 30 mg tablet 30 mg PO Q6HR PRN Congestion/ sinus headache #30 tabs 02/19/22 [Rx Confirmed 05/31/22] apixaban 5 mg tablet (Eliquis) 5 mg PO BID 05/31/22 [History Confirmed 05/31/22] gabapentin 400 mg capsule 800 mg PO QID 05/31/22 [History Confirmed 05/31/22] Visit Medications (administered) Generic Name Dose Route Start Last Admin Trade Name Freq PRN Reason Stop Dose Admin Acetaminophen 650 mg 05/31/22 17:54 06/02/22 01:06 Acetaminophen 325 Mg Tablet PO 650 mg Q6HR PRN Administration Fever/Mild Pain (1-3) Apixaban 5 mg 05/31/22 21:00 06/03/22 08:20 Apixaban 5 Mg Tablet PO 5 mg BID JOSE ANTONIO Administration Buspirone HCl 20 mg 05/31/22 21:00 06/03/22 09:08 Buspirone 5 Mg Tablet PO 20 mg TID JOSE ANTONIO Administration Cyclobenzaprine HCl 10 mg 05/31/22 18:15 06/02/22 13:30 Cyclobenzaprine 10 Mg Tablet PO 10 mg TID PRN Administration pain Dextrose 25 gm 06/01/22 00:04 06/01/22 11:11 Dextrose 50 % In Water 25 Gm/50 Ml Syringe IV 12.5 gm PRN PRN Administration Hypoglycemia Gabapentin 800 mg 05/31/22 21:00 06/03/22 08:20 Gabapentin 400 Mg Capsule PO 800 mg QID JOSE ANTONIO Administration Heparin Sodium (Porcine) 50 unit 06/01/22 21:00 06/03/22 08:20 Heparin Flush (Cl/Picc/Mid-Line) 50 Unit/5 Ml Syringe IV 50 unit BID JOSE ANTONIO Administration Hydrocortisone 50 mg 06/01/22 12:00 06/03/22 05:57 Hydrocortisone 100 Mg/2 Ml Vial IV 50 mg Q6HR JOSE ANTONIO Administration Hydromorphone HCl 0.5 mg 05/31/22 20:27 06/03/22 05:57 Hydromorphone 0.5 Mg Inj IV 0.5 mg Q3H PRN Administration Pain, Moderate (4-6) INSULIN DRIP PREMIX 100 unit in 100 mls @ 2 mls/hr 05/31/22 18:00 06/02/22 21:00 Myxredlin Drip Premix IV 0 mls/hr TITRATE JOSE ANTONIO 0 mls/hr Titration Protocol Piperacillin Sod/Tazobactam 100 mls @ 25 mls/hr 06/01/22 00:00 06/03/22 08:21 Sod 3.375 gm/ Sodium Chloride IV 25 mls/hr Q8H JOSE ANTONIO Administration Dextrose/Sodium Chloride 1,000 mls @ 150 mls/hr 05/31/22 18:15 06/01/22 02:30 Dextrose 5%-0.9% Ns IV 0 mls/hr CONT JOSE ANTONIO Infusion Dextrose 1,000 mls @ 0 mls/hr 05/31/22 22:45 06/01/22 18:00 D10w IV 0 mls/hr CONT JOSE ANTONIO Infusion Per Protocol NOREPINEPHRINE BITARTRATE/D5W 4 mg in 250 mls @ 30 mls/hr 05/31/22 23:39 06/02/22 20:25 Levophed IV 0 mcg/min TITRATE JOSE ANTONIO 0 mls/hr Titration Protocol 8 MCG/MIN Dextrose/Sodium Chloride 1,000 mls @ 100 mls/hr 06/01/22 05:45 06/01/22 22:00 Dextrose 5%-0.45% Ns IV 0 mls/hr CONT JOSE ANTONIO Infusion Sodium Bicarbonate 100 meq/ 1,100 mls @ 150 mls/hr 06/01/22 21:00 06/02/22 06:53 Dextrose IV Infused CONT JOSE ANTONIO Infusion Insulin Glargine 12 unit 06/02/22 21:15 06/02/22 22:07 Insulin Glargine 100 Unit/Ml 3ml Pen SUBCUT 12 unit BEDTIME JOSE ANTONIO Administration Loratadine 10 mg 06/01/22 09:00 06/03/22 08:20 Loratadine 10 Mg Tablet PO 10 mg DAILY JOSE ANTONIO Administration Melatonin 3 mg 05/31/22 21:00 06/02/22 22:06 Melatonin 3 Mg Tablet PO 3 mg BEDTIME JOSE ANTONIO Administration Midodrine 10 mg 06/02/22 12:15 06/03/22 05:57 Midodrine Hcl 5 Mg Tablet PO 10 mg 0600,1200,1800 JOSE ANTONIO Administration Ondansetron HCl 4 mg 05/31/22 17:54 06/03/22 05:57 Ondansetron 4 Mg/2 Ml Inj IV 4 mg Q6HR PRN Administration Nausea And Vomiting Vancomycin HCl 125 mg 06/01/22 21:00 06/03/22 08:20 Vancomycin 125 Mg Capsule PO 125 mg BID JOSE ANTONIO Administration Objective Labs Result Diagrams: 06/03/22 05:45 06/03/22 05:45 Labs: Laboratory Results - last 24 hr 06/02/22 06/02/22 06/02/22 14:38 14:38 20:05 WBC 18.9 H RBC 3.24 L Hgb 8.1 L Hct 25.0 L MCV 77.1 L MCH 25.1 L MCHC 32.6 RDW 20.5 H Plt Count 602 H Neut % (Auto) Not Reportable Lymph % (Auto) Not Reportable [place] % (Auto) Not Reportable Eos % (Auto) Not Reportable Baso % (Auto) Not Reportable Neut # (Auto) Lymph # (Auto) Not Reportable [place] # (Auto) Not Reportable Eos # (Auto) Baso # (Auto) Not Reportable Total Counted 100 Seg Neutrophils % 94.0 H Lymphocytes % (Manual) 2.0 L Monocytes % (Manual) 4.0 Neutrophils # (Manual) 05695 H Platelet Estimate Incr RBC Morphology See below Poikilocytosis 1+ H Anisocytosis 2+ H Sodium 139 139 Potassium 4.2 3.9 Chloride 113 H 115 H Carbon Dioxide 16 L 17 L BUN 11 11 Creatinine 0.63 0.61 Estimated GFR > 60 > 60 BUN/Creatinine Ratio 17.5 18.0 Glucose 140 H 163 H Calcium 7.5 L 7.4 L Magnesium 06/02/22 06/03/22 06/03/22 23:51 05:45 05:45 WBC 19.8 H RBC 3.07 L Hgb 7.7 L Hct 23.5 L MCV 76.7 L MCH 25.2 L MCHC 32.8 RDW 20.9 H Plt Count 611 H Neut % (Auto) 91.9 H Lymph % (Auto) 3.9 L [place] % (Auto) 4.1 Eos % (Auto) 0.0 L Baso % (Auto) 0.1 Neut # (Auto) 30622 H Lymph # (Auto) 800 L [place] # (Auto) 800 Eos # (Auto) 0 Baso # (Auto) 0 Total Counted Seg Neutrophils % Lymphocytes % (Manual) Monocytes % (Manual) Neutrophils # (Manual) Platelet Estimate Increased on smear RBC Morphology See below Poikilocytosis 1+ H Anisocytosis 2+ H Sodium 139 140 Potassium 3.7 3.9 Chloride 114 H 115 H Carbon Dioxide 16 L 18 L BUN 11 10 Creatinine 0.61 0.64 Estimated GFR > 60 > 60 BUN/Creatinine Ratio 18.0 15.6 Glucose 157 H 95 Calcium 7.5 L 7.5 L Magnesium 2.0 Exam Vital Signs (past 8 hours): - 06/03/22 02:00 06/03/22 02:00 06/03/22 03:00 Temperature Pulse Rate 90 Respiratory Rate 19 Blood Pressure 101/65 97/68 Pulse Oximetry 06/03/22 03:00 06/03/22 04:00 06/03/22 04:00 Temperature 99.1 F Pulse Rate 91 H 92 H Respiratory Rate 14 19 Blood Pressure 100/66 Pulse Oximetry 97 06/03/22 05:00 06/03/22 05:03 06/03/22 05:03 Temperature Pulse Rate 92 H 90 Respiratory Rate 20 19 Blood Pressure 97/54 L Pulse Oximetry 06/03/22 06:00 06/03/22 06:31 06/03/22 06:31 Temperature Pulse Rate 91 H 93 H Respiratory Rate 25 H 20 Blood Pressure 94/54 L Pulse Oximetry 06/03/22 07:00 06/03/22 07:00 06/03/22 08:00 Temperature Pulse Rate 93 H Respiratory Rate 13 Blood Pressure 97/64 106/72 Pulse Oximetry 06/03/22 08:00 Temperature Pulse Rate 92 H Respiratory Rate 22 Blood Pressure Pulse Oximetry Oxygen Delivery Method Room Air Oxygen Flow Rate 0 Quality TeleICU VTE Deep Vein Thrombosis/Pulmonary Embolism Present on Admission: No Assessment & Plan Assessment & Plan narrative: ssessment & Plan narrative: 1. Acute DKA, present on admission -resolved, GAP closed, back on scheduleded & prn insulin 2. Septic shock secondary to acute pyelonephritis, right kidney, present on admission - Off pressor, stop stress dose hydrocortisone , continue meidodrine 10 mg TID/ wean off as tolerated -on CT abdomen and pelvis there is enhancing foci in the right kidney most likely representing acute pyelo -E coli growing in urine and blood cultures from admission -finish 5 days of IV Zosyn, f/u repeated final Cx -fentanyl 25 mcg as needed for back pain -titrate off pressor support as able -right IJ triple lumen placed on 06/01, to be removed today/ has a pic line 3. Paroxysmal atrial fibrillation, history of -Cont apixaban 4. History of C difficile colitis -patient had severe C diff 2 months [employer] and probably high school for recurrence, patient states ID specialist at recommended she go on oral vanco if taking antibiotic -not having diarrhea at this time -Continue p.o. vancomycin 125 mg b.i.d. for C diff prophylaxis 5. Severe protein-calorie malnutrition -this is adversely affecting healing times of all the patient's acute and chronic conditions 6. Chronic microcytic anemia, work up & mgt per primary, may trasnfuse 1 unit , definitely transfuse for HB < 7 Code status: Full code I confirm that the patient's advance care plan is present, code status is documented and listed in the patient's medical record. I have utilized all available immediate resources to obtain, update, or review the patient's current medications. Time Spent With Patient Critical Care time: I spent a total of [30] minutes of critical care time on this patient's care today; this time is exclusive of procedural time.
--- NOTE | 2022-06-03 10:55 | PC.RNWOUND ---
Patient has perianal incontinent-associated dermatitis with skin breakdown from loose stool, about which patient states, I can't always get it all when I wipe. Perineum and perirectal area cleansed well with bath wipes and zinc-based barrier cream applied. Patient says she will leave pull-ups off and just use underpads while in bed for air flow to this area. Tolerates cares well except for some wincing from cares to this painful area, appreciative of cares.
--- NOTE | 2022-06-03 14:25 | P.PN_ITS ---
Subjective Subjective Interval history: The patient endorses good PO intake, and denies any loose stools or diarrhea. She reports feeling overall well. Exam Vital Signs (past 8 hours): - 06/03/22 06:31 06/03/22 06:31 06/03/22 07:00 Temperature Pulse Rate 93 H Respiratory Rate 20 Blood Pressure 94/54 L 97/64 Pulse Oximetry Oxygen Flow Rate 06/03/22 07:00 06/03/22 08:00 06/03/22 08:00 Temperature Pulse Rate 93 H 92 H Respiratory Rate 13 22 Blood Pressure 106/72 Pulse Oximetry Oxygen Flow Rate 06/03/22 07:00 06/03/22 08:00 06/03/22 09:00 Temperature Pulse Rate 93 H 92 H 93 H Respiratory Rate 13 22 27 H Blood Pressure 97/64 106/72 107/69 Pulse Oximetry Oxygen Flow Rate 06/03/22 10:00 06/03/22 09:00 06/03/22 09:00 Temperature Pulse Rate 97 H 93 H Respiratory Rate 25 H 27 H Blood Pressure 104/61 107/69 Pulse Oximetry Oxygen Flow Rate 06/03/22 10:00 06/03/22 10:00 06/03/22 10:55 Temperature Pulse Rate 97 H 91 H Respiratory Rate 25 H 22 Blood Pressure 104/61 Pulse Oximetry Oxygen Flow Rate 06/03/22 10:56 06/03/22 11:00 06/03/22 12:10 Temperature 97.2 F L Pulse Rate 92 H Respiratory Rate 18 Blood Pressure 108/71 107/73 117/78 Pulse Oximetry 95 Oxygen Flow Rate 0 Oxygen Delivery Method Room Air Oxygen Flow Rate 0 Const Other: Patient laying in bed comfortably upon my entering the room, watching TV, and appears older than stated age, and not in apparent acute distress [facility] Other: Edentulous Eyes Other: No scleral icterus appreciated Resp Other: Clear to auscultation bilaterally Cardio Other: RRR, S1 and S2 heart sounds normal, no extra heart sounds or murmurs noted GI Other: Soft, non-distended, non-tender, bowel sounds present Skin Other: No grossly abnormal skin lesions noted Extrem Other: Palpable dorsalis pedis pulses bilaterally Objective Labs Result Diagrams: 06/03/22 05:45 06/03/22 05:45 Labs: Laboratory Results - last 24 hr 06/02/22 06/02/22 06/02/22 14:38 14:38 20:05 WBC 18.9 H RBC 3.24 L Hgb 8.1 L Hct 25.0 L MCV 77.1 L MCH 25.1 L MCHC 32.6 RDW 20.5 H Plt Count 602 H Neut % (Auto) Not Reportable Lymph % (Auto) Not Reportable [place] % (Auto) Not Reportable Eos % (Auto) Not Reportable Baso % (Auto) Not Reportable Neut # (Auto) Lymph # (Auto) Not Reportable [place] # (Auto) Not Reportable Eos # (Auto) Baso # (Auto) Not Reportable Total Counted 100 Seg Neutrophils % 94.0 H Lymphocytes % (Manual) 2.0 L Monocytes % (Manual) 4.0 Neutrophils # (Manual) 29675 H Platelet Estimate Incr RBC Morphology See below Poikilocytosis 1+ H Anisocytosis 2+ H Sodium 139 139 Potassium 4.2 3.9 Chloride 113 H 115 H Carbon Dioxide 16 L 17 L BUN 11 11 Creatinine 0.63 0.61 Estimated GFR > 60 > 60 BUN/Creatinine Ratio 17.5 18.0 Glucose 140 H 163 H Calcium 7.5 L 7.4 L Magnesium 06/02/22 06/03/22 06/03/22 23:51 05:45 05:45 WBC 19.8 H RBC 3.07 L Hgb 7.7 L Hct 23.5 L MCV 76.7 L MCH 25.2 L MCHC 32.8 RDW 20.9 H Plt Count 611 H Neut % (Auto) 91.9 H Lymph % (Auto) 3.9 L [place] % (Auto) 4.1 Eos % (Auto) 0.0 L Baso % (Auto) 0.1 Neut # (Auto) 85952 H Lymph # (Auto) 800 L [place] # (Auto) 800 Eos # (Auto) 0 Baso # (Auto) 0 Total Counted Seg Neutrophils % Lymphocytes % (Manual) Monocytes % (Manual) Neutrophils # (Manual) Platelet Estimate Increased on smear RBC Morphology See below Poikilocytosis 1+ H Anisocytosis 2+ H Sodium 139 140 Potassium 3.7 3.9 Chloride 114 H 115 H Carbon Dioxide 16 L 18 L BUN 11 10 Creatinine 0.61 0.64 Estimated GFR > 60 > 60 BUN/Creatinine Ratio 18.0 15.6 Glucose 157 H 95 Calcium 7.5 L 7.5 L Magnesium 2.0 [facility] Medical History (Updated 06/01/22 @ 13:23 by Harsha Mckinley MD) Acute CVA (cerebrovascular accident) Alcohol intoxication Chronic atrial fibrillation with RVR Closed hip fracture COVID DKA (diabetic ketoacidoses) DKA (diabetic ketoacidosis) Fibromyalgia Gastroesophageal reflux disease Insulin dependent diabetes mellitus Lupus Osteoporosis Surgical History History of hip surgery Presence of pancreatic duct stent Family History Mother Diabetes mellitus Congestive heart failure Pancreatic cancer Father Diabetes mellitus Brother Diabetes mellitus Pancreatitis Sister Drug overdose Social History household members: family Smoking Status: Current every day smoker alcohol intake: never Assessment & Plan Assessment & Plan narrative: ssessment & Plan narrative: 1. Acute DKA, present on admission -resolved, GAP closed, back on scheduleded & prn insulin 2. Septic shock secondary to acute pyelonephritis, right kidney, present on admission -off pressor, stop stress dose hydrocortisone , continue meidodrine 10 mg TID/ wean off as tolerated -on CT abdomen and pelvis there is enhancing foci in the right kidney most likely representing acute pyelo -E coli growing in urine and blood cultures from admission -finish 5 days of IV Zosyn, f/u repeated final Cx -fentanyl 25 mcg as needed for back pain -titrate off pressor support as able -right IJ triple lumen placed on 06/01, to be removed today/ has a pic line 3. Paroxysmal atrial fibrillation, history of -Cont apixaban 4. History of C. 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 vancomycin 125 mg b.i.d. for C. diff suppressive prophylaxis 5. Severe protein-calorie malnutrition -this is adversely affecting healing times of all the patient's acute and chronic conditions 6. Chronic microcytic anemia, work up & mgt per primary, may trasnfuse 1 unit, transfuse for HB < 7 Code status: Full code I confirm that the patient's advance care plan is present, code status is documented and listed in the patient's medical record. I have utilized all available immediate resources to obtain, update, or review the patient's current medications. Time Spent With Patient Critical Care time: I spent a total of [] minutes of critical care time on this patient's care today; this time is exclusive of procedural time. Quality VTE Deep Vein Thrombosis/Pulmonary Embolism Present on Admission: No
[2022-06-03] MEDS: cefTRIAXone 2,000 MG in SODIUM CHLORIDE 0.9% 100 ML 200 MG IV (15:37)
[2022-06-03] MEDS: INSULIN LISPRO 100 UNIT/ML 3ML VIAL SUBCUT (17:38)
[2022-06-03 19:19] LABS: BUN Creatinine Ratio 15.4 (6-22); Blood Urea Nitrogen 10 mg/dL (7-17); Calcium 7.3 mg/dL (8.4-10.2); Carbon Dioxide 18 mmol/L (22-32); Chloride 112 mmol/L (98-107); Estimated Glomerular Filt Rate > 60 mL/min (>60); Glucose 174 mg/dL (70-100); HEMOLYSIS 19 (0-50); Potassium 3.6 mmol/L (3.4-5.1); Sodium 137 mmol/L (137-145)
[2022-06-03] MEDS: INSULIN GLARGINE 100 UNIT/ML 3ML PEN 12 UNIT SUBCUT (20:40)
[2022-06-03] MEDS: MELATONIN 3 MG TABLET PO (20:41)
[2022-06-03] MEDS: ALBUTEROL/IPRATROPIUM 3 ML AMPUL INH (22:25)
--- NOTE | 2022-06-03 22:33 | PC.NURSE ---
Pt stated they were having trouble breathing. O2 sats were 97% and BP was WNL. Upon auscultation, MACY exhibited some wheezing/crackles. Hospitalist notified. Albuterol nebulizer treatment ordered.
[2022-06-04] VITALS (8 sets, daily range): BP systolic 89–121; BP diastolic 53–68; PULSE 91–127; RESP 14–19; TEMP 36.6–37.5; O2SAT 92–96
[2022-06-04] MEDS: ONDANSETRON 4 MG/2 ML INJ IV ×2 (00:26→06:17)
[2022-06-04] MEDS: HYDROMORPHONE 0.5 MG INJ IV ×2 (00:38→06:17)
[2022-06-04 04:55] LABS: Hematocrit 23.2 % (36-46); Hemoglobin 7.6 g/dL (12.0-16.0); Mean Corpuscular HGB Conc 32.7 % (30-36); Mean Corpuscular Hemoglobin 24.9 PG (26-34); Mean Corpuscular Volume 76.2 fL (80-100); Platelet Count 653 X10^3/uL (150-400); Red Blood Cell Count 3.05 X10^6/uL (4.0-5.2); Red Cell Distribution Width 20.3 % (11.6-14.8); White Blood Cell Count 17.8 X10^3/uL (4.5-11.0)
[2022-06-04 04:59] LABS: BUN Creatinine Ratio 14.7 (6-22); Blood Urea Nitrogen 10 mg/dL (7-17); Calcium 7.4 mg/dL (8.4-10.2); Carbon Dioxide 19 mmol/L (22-32); Chloride 113 mmol/L (98-107); Estimated Glomerular Filt Rate > 60 mL/min (>60); HEMOLYSIS < 15 (0-50); Magnesium 1.8 mg/dL (1.6-2.3); Potassium 3.4 mmol/L (3.4-5.1); Sodium 138 mmol/L (137-145)
[2022-06-04 05:03] LABS: Add Manual Diff / Slide Review YES
[2022-06-04 05:20] LABS: Glucose 36 mg/dL (70-100)
[2022-06-04 05:47] LABS: Neutrophils Absolute Manual 14774 /uL (3000-5900); Total Cells Counted 100
[2022-06-04 05:48] LABS: Anisocytosis 2+; Platelet Estimate Increased on smear; Poikilocytosis 1+
[2022-06-04] MEDS: MIDODRINE HCL 5 MG TABLET 10 MG PO ×3 (06:03→20:20)
[2022-06-04] MEDS: SODIUM CHLORIDE 0.9% FLUSH 10 ML IV ×2 (06:18→08:49)
--- NOTE | 2022-06-04 08:46 | DI.RAD.S_ITS ---
PROCEDURE: XR CHEST 1V INDICATIONS: cough, chf?, pna? TECHNIQUE: One view of the chest was acquired. COMPARISON: [facility], CT, CT ABDOMEN PELVIS W CON, 05/31/2022, 15:00. [facility], CR, XR CHEST 1V, 06/01/2022, 8:29. [facility], CR, XR CHEST 1V, 05/31/2022, 14:25. FINDINGS: Surgical changes and devices: Right IJ central venous line has been removed. Lungs and pleura: Low lung volumes. There is increased patchy opacity most pronounced in the left lung. No significant pleural effusion or pneumothorax is identified. Mediastinum: Mediastinal contours appear unchanged. Heart size is within normal limits. Bones and chest wall: No suspicious bony lesions. Overlying soft tissues appear unremarkable. IMPRESSION: Low lung volumes. Increased patchy opacity most pronounced in the left lung. This could be due to fluid overload/CHF. Pneumonia could have a similar appearance. Dictated by: Kenji Thompson M.D. on 06/04/2022 at 9:34 Approved by: Kenji Thompson M.D. on 06/04/2022 at 9:36
[2022-06-04] MEDS: GABAPENTIN 400 MG CAPSULE 800 MG PO ×4 (08:47→20:21)
[2022-06-04] MEDS: BUSPIRONE 5 MG TABLET 20 MG PO ×3 (08:47→20:21)
[2022-06-04] MEDS: VANCOMYCIN 125 MG CAPSULE PO ×2 (08:47→20:21)
[2022-06-04] MEDS: APIXABAN 5 MG TABLET PO ×2 (08:47→20:21)
[2022-06-04] MEDS: LORATADINE 10 MG TABLET PO (08:47)
[2022-06-04 09:18] LABS: NT-proBNP (BNP-Adult 18+) 1240 pg/mL (<125)
[2022-06-04] MEDS: ALBUTEROL/IPRATROPIUM 3 ML AMPUL INH (09:31)
[2022-06-04] MEDS: TRAMADOL 50 MG TABLET PO ×2 (13:15→20:19)
--- NOTE | 2022-06-04 13:41 | PM.PN.1 ---
Subjective Subjective Date Patient Seen: 06/04/22 Time Patient Seen: 08:00 Interval history: This morning she had symptomatic hypoglycemia with blood sugar in the 30s, improved with juice. She was feeling a cough and mild shortness of breath. Exam Vital Signs (past 8 hours): - 06/04/22 07:37 06/04/22 07:00 06/04/22 09:35 Temperature 97.8 F Pulse Rate 100 H 102 H Respiratory Rate 15 16 Blood Pressure 89/58 L Pulse Oximetry 92 96 Oxygen Delivery Method Room Air Room Air Oxygen Flow Rate 0 06/04/22 11:53 Temperature 97.8 F Pulse Rate 127 H Respiratory Rate 17 Blood Pressure 121/68 Pulse Oximetry 92 Oxygen Delivery Method Oxygen Flow Rate 0 Oxygen Delivery Method Room Air Oxygen Flow Rate 0 Narrative Exam Narrative: GEN: frail, chronically ill appearing CV: tachycardic PULM: crackles in bases ABD: soft, nontender, nondistended, no organomegaly EXT: warm and well perfused with no edema Objective Labs Result Diagrams: 06/04/22 04:35 06/04/22 04:35 Labs: Laboratory Results - last 24 hr 06/03/22 06/04/22 06/04/22 18:45 04:35 04:35 WBC 17.8 H RBC 3.05 L Hgb 7.6 L Hct 23.2 L MCV 76.2 L MCH 24.9 L MCHC 32.7 RDW 20.3 H Plt Count 653 H Neut % (Auto) Not Reportable Lymph % (Auto) Not Reportable [place] % (Auto) Not Reportable Eos % (Auto) Not Reportable Baso % (Auto) Not Reportable Lymph # (Auto) Not Reportable [place] # (Auto) Not Reportable Baso # (Auto) Not Reportable Total Counted 100 Seg Neutrophils % 83.0 H Lymphocytes % (Manual) 14.0 L D Monocytes % (Manual) 3.0 Neutrophils # (Manual) 91308 H Platelet Estimate Increased on smear RBC Morphology See below Poikilocytosis 1+ H Anisocytosis 2+ H Sodium 137 138 Potassium 3.6 3.4 Chloride 112 H 113 H Carbon Dioxide 18 L 19 L BUN 10 10 Creatinine 0.65 0.68 Estimated GFR > 60 > 60 BUN/Creatinine Ratio 15.4 14.7 Glucose 174 H 36 L* D Calcium 7.3 L 7.4 L Magnesium 1.8 NT-Pro-B Natriuret Pep 06/04/22 04:35 WBC RBC Hgb Hct MCV MCH MCHC RDW Plt Count Neut % (Auto) Lymph % (Auto) [place] % (Auto) Eos % (Auto) Baso % (Auto) Lymph # (Auto) [place] # (Auto) Baso # (Auto) Total Counted Seg Neutrophils % Lymphocytes % (Manual) Monocytes % (Manual) Neutrophils # (Manual) Platelet Estimate RBC Morphology Poikilocytosis Anisocytosis Sodium Potassium Chloride Carbon Dioxide BUN Creatinine Estimated GFR BUN/Creatinine Ratio Glucose Calcium Magnesium NT-Pro-B Natriuret Pep 1240 H [facility] Medical History (Updated 06/01/22 @ 13:23 by Harsha Mckinley MD) Acute CVA (cerebrovascular accident) Alcohol intoxication Chronic atrial fibrillation with RVR Closed hip fracture COVID DKA (diabetic ketoacidoses) DKA (diabetic ketoacidosis) Fibromyalgia Gastroesophageal reflux disease Insulin dependent diabetes mellitus Lupus Osteoporosis Surgical History History of hip surgery Presence of pancreatic duct stent Family History Mother Diabetes mellitus Congestive heart failure Pancreatic cancer Father Diabetes mellitus Brother Diabetes mellitus Pancreatitis Sister Drug overdose Social History household members: family Smoking Status: Current every day smoker alcohol intake: never Assessment & Plan Assessment & Plan narrative: 1. Acute DKA, present on admission -resolved, GAP closed, back on scheduleded & prn insulin -did have episode of hypoglycemia AM 06/04, decreased lantus from 12->10u, she is brittle diabetic 2. Septic shock secondary to acute pyelonephritis, right kidney, present on admission -off pressor, stop stress dose hydrocortisone , continue meidodrine 10 mg TID/ wean off as tolerated -on CT abdomen and pelvis there is enhancing foci in the right kidney most likely representing acute pyelo -E coli growing in urine and blood cultures from admission, pansensitive -Day 1 antibiotics 05/31, likely will need 7-14 day course for bacteremia but can likely switch to PO on discharge -has a pic line 3. Paroxysmal atrial fibrillation, history of -Cont apixaban 4. History of C. 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 vancomycin 125 mg b.i.d. for C. diff suppressive prophylaxis 5. Severe protein-calorie malnutrition -this is adversely affecting healing times of all the patient's acute and chronic conditions 6. Chronic microcytic anemia, work up & mgt per primary, may trasnfuse 1 unit, transfuse for HB < 7 7. Cough, respiratory distress -developed cough on 06/03 -started on PRN nebs -workup showed possible fluid vs pna, with elevated BNP suspect secondary to volume resuscitation -ordered 20IV lasix x1 on 06/04 Code status: Full code I confirm that the patient's advance care plan is present, code status is documented and listed in the patient's medical record. I have utilized all available immediate resources to obtain, update, or review the patient's current medications. Time Spent With Patient Critical Care time: I spent a total of [] minutes of critical care time on this patient's care today; this time is exclusive of procedural time. Quality VTE Deep Vein Thrombosis/Pulmonary Embolism Present on Admission: No
[2022-06-04] MEDS: FUROSEMIDE 20 MG/2 ML VIAL IV (13:52)
[2022-06-04] MEDS: cefTRIAXone 2,000 MG in SODIUM CHLORIDE 0.9% 100 ML 200 MG IV (15:36)
[2022-06-04] MEDS: ACETAMINOPHEN 325 MG TABLET 650 MG PO (20:19)
[2022-06-04] MEDS: MELATONIN 3 MG TABLET PO (20:22)
[2022-06-05 03:00] VITALS: BP 104/64; PULSE 94; RESP 16; TEMP 36.7; O2SAT 96
[2022-06-05] MEDS: SODIUM CHLORIDE 0.9% FLUSH 10 ML IV ×4 (04:35→22:06)
[2022-06-05] MEDS: TRAMADOL 50 MG TABLET PO ×3 (04:35→15:45)
[2022-06-05] MEDS: ACETAMINOPHEN 325 MG TABLET 650 MG PO ×3 (04:37→15:46)
[2022-06-05 05:04] LABS: Add Manual Diff / Slide Review YES; Hematocrit 22.2 % (36-46); Hemoglobin 7.2 g/dL (12.0-16.0); Mean Corpuscular HGB Conc 32.3 % (30-36); Mean Corpuscular Hemoglobin 24.6 PG (26-34); Mean Corpuscular Volume 76.3 fL (80-100); Platelet Count 659 X10^3/uL (150-400); Red Blood Cell Count 2.91 X10^6/uL (4.0-5.2); Red Cell Distribution Width 20.7 % (11.6-14.8); White Blood Cell Count 14.5 X10^3/uL (4.5-11.0)
[2022-06-05 05:12] LABS: BUN Creatinine Ratio 7.3 (6-22); Blood Urea Nitrogen 4 mg/dL (7-17); Calcium 6.8 mg/dL (8.4-10.2); Carbon Dioxide 24 mmol/L (22-32); Chloride 107 mmol/L (98-107); Estimated Glomerular Filt Rate > 60 mL/min (>60); Glucose 197 mg/dL (70-100); HEMOLYSIS < 15 (0-50); Magnesium 1.6 mg/dL (1.6-2.3); Potassium 3.5 mmol/L (3.4-5.1); Sodium 136 mmol/L (137-145)
[2022-06-05 05:21] LABS: Anisocytosis 2+; Hypochromasia 1+; Neutrophils Absolute Manual 10730 /uL (3000-5900); Nucleated Red Blood Cells 1 #/Diff; Total Cells Counted 100
[2022-06-05 05:22] LABS: Poikilocytosis 1+
--- NOTE | 2022-06-05 07:50 | PM.PN.1 ---
Subjective Subjective Date Patient Seen: 06/05/22 Interval history: She tells me that she remains quite weak. 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 She talks about resuming home care with the [facility]. The Magnesium level is 1.6. The BMP is normal today with a glucose of 197. The white blood count is 14.5 with a hemoglobin of 7.2. This is not new. The platelets are high at 659. Exam Vital Signs (past 8 hours): - 06/05/22 03:00 Temperature 98.0 F Pulse Rate 94 H Respiratory Rate 16 Blood Pressure 104/64 Pulse Oximetry 96 Oxygen Flow Rate 0 Oxygen Delivery Method Room Air Oxygen Flow Rate 0 Narrative Exam Narrative: She is alert and oriented x3. She appears quite weak Heart is regular rate and rhythm without murmur Lungs are clear to auscultation bilaterally Extremities have no ankle edema. Objective Labs Result Diagrams: 06/05/22 04:45 06/05/22 04:45 Labs: Laboratory Results - last 24 hr 06/04/22 06/05/22 06/05/22 04:35 04:45 04:45 WBC 14.5 H RBC 2.91 L Hgb 7.2 L Hct 22.2 L MCV 76.3 L MCH 24.6 L MCHC 32.3 RDW 20.7 H Plt Count 659 H Neut % (Auto) Not Reportable Lymph % (Auto) Not Reportable [place] % (Auto) Not Reportable Eos % (Auto) Not Reportable Baso % (Auto) Not Reportable Lymph # (Auto) Not Reportable [place] # (Auto) Not Reportable Baso # (Auto) Not Reportable Total Counted 100 Seg Neutrophils % 74.0 H Lymphocytes % (Manual) 14.0 L Monocytes % (Manual) 12.0 H Neutrophils # (Manual) 48333 H Nucleated RBCs 1 H RBC Morphology See below Hypochromasia 1+ H Poikilocytosis 1+ H Anisocytosis 2+ H Sodium 136 L Potassium 3.5 Chloride 107 Carbon Dioxide 24 BUN 4 L Creatinine 0.55 Estimated GFR > 60 BUN/Creatinine Ratio 7.3 Glucose 197 H D Calcium 6.8 L Magnesium 1.6 NT-Pro-B Natriuret Pep 1240 H [facility] Medical History (Updated 06/01/22 @ 13:23 by Harsha Mckinley MD) Acute CVA (cerebrovascular accident) Alcohol intoxication Chronic atrial fibrillation with RVR Closed hip fracture COVID DKA (diabetic ketoacidoses) DKA (diabetic ketoacidosis) Fibromyalgia Gastroesophageal reflux disease Insulin dependent diabetes mellitus Lupus Osteoporosis Surgical History History of hip surgery Presence of pancreatic duct stent Family History Mother Diabetes mellitus Congestive heart failure Pancreatic cancer Father Diabetes mellitus Brother Diabetes mellitus Pancreatitis Sister Drug overdose Social History household members: family Smoking Status: Current every day smoker alcohol intake: never Assessment & Plan Assessment & Plan narrative: 1. Acute DKA, present on admission -resolved, GAP closed, back on scheduled & prn insulin -did have episode of hypoglycemia AM 06/04, decreased lantus from 12->10u, she is brittle diabetic 2. Septic shock secondary to acute pyelonephritis, right kidney, present on admission -off pressor, stop stress dose hydrocortisone , continue meidodrine 10 mg TID/ wean off as tolerated -on CT abdomen and pelvis there is enhancing foci in the right kidney most likely representing acute pyelo -E coli growing in urine and blood cultures from admission, pansensitive -Day 1 antibiotics 05/31, now on day 6, likely will need 7-14 days and can switch to PO on discharge -has a picc line 3. Paroxysmal atrial fibrillation, history of -Cont apixaban 4. History of C. 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 vancomycin 125 mg b.i.d. for C. diff suppressive prophylaxis 5. Severe protein-calorie malnutrition -this is adversely affecting healing times of all the patient's acute and chronic conditions 6. Chronic microcytic anemia, work up & mgt per primary, may trasnfuse 1 unit, transfuse for HB < 7 7. Cough, respiratory distress -developed cough on 06/03 -started on PRN nebs -workup showed possible fluid vs pna, with elevated BNP suspect secondary to volume resuscitation -ordered 20IV lasix x1 on 06/04 Code status: Full code Time Spent With Patient Critical Care time: I spent a total of [] minutes of critical care time on this patient's care today; this time is exclusive of procedural time. Quality VTE Deep Vein Thrombosis/Pulmonary Embolism Present on Admission: No
[2022-06-05 07:58] VITALS: BP 110/67; PULSE 95; RESP 16; TEMP 36.9; O2SAT 93
[2022-06-05] MEDS: CYCLOBENZAPRINE 10 MG TABLET PO ×2 (08:24→15:47)
[2022-06-05] MEDS: APIXABAN 5 MG TABLET PO ×2 (08:24→20:58)
[2022-06-05] MEDS: VANCOMYCIN 125 MG CAPSULE PO ×2 (08:25→20:58)
[2022-06-05] MEDS: GABAPENTIN 400 MG CAPSULE 800 MG PO ×4 (08:25→20:58)
[2022-06-05] MEDS: BUSPIRONE 5 MG TABLET 20 MG PO ×3 (08:25→20:57)
[2022-06-05] MEDS: MIDODRINE HCL 5 MG TABLET 10 MG PO ×3 (08:25→20:58)
[2022-06-05] MEDS: LORATADINE 10 MG TABLET PO (08:25)
[2022-06-05] MEDS: INSULIN LISPRO 100 UNIT/ML 3ML VIAL SUBCUT ×4 (08:26→21:25)
[2022-06-05] MEDS: POTASSIUM CHLORIDE 20 MEQ TAB 40 MEQ PO (09:51)
[2022-06-05] MEDS: MAGNESIUM CHLORIDE 64 MG TABLET 128 MG PO (10:15)
[2022-06-05 12:00] VITALS: BP 116/67; PULSE 92; RESP 16; TEMP 36.8; O2SAT 92
[2022-06-05] MEDS: cefTRIAXone 2,000 MG in SODIUM CHLORIDE 0.9% 100 ML 200 MG IV (15:44)
[2022-06-05] MEDS: ONDANSETRON 4 MG/2 ML INJ IV ×2 (15:48→20:59)
[2022-06-05 16:43] VITALS: BP 111/72; PULSE 100; RESP 16; TEMP 36.6; O2SAT 94
[2022-06-05 20:38] VITALS: BP 123/77; PULSE 94; RESP 17; TEMP 36.4; O2SAT 96
[2022-06-05] MEDS: HYDROMORPHONE 0.5 MG INJ IV (20:58)
[2022-06-05] MEDS: INSULIN GLARGINE 100 UNIT/ML 3ML PEN 10 UNIT SUBCUT (21:26)
[2022-06-05] MEDS: MELATONIN 3 MG TABLET PO (22:06)
[2022-06-06 00:08] VITALS: BP 123/83; PULSE 103; RESP 17; TEMP 36.1; O2SAT 93
[2022-06-06] MEDS: TRAMADOL 50 MG TABLET PO ×2 (04:12→10:26)
[2022-06-06 05:16] VITALS: BP 101/65; PULSE 105; RESP 19; TEMP 36.5; O2SAT 91
[2022-06-06] MEDS: ACETAMINOPHEN 325 MG TABLET 650 MG PO (05:27)
[2022-06-06 05:28] LABS: Add Manual Diff / Slide Review NO; Basophils Absolute Auto 0 /uL (0-100); Basophils Percent Auto 0.2 % (0-2); Eosinophils Absolute Auto 100 /uL (0-450); Eosinophils Percent Auto 0.7 % (2-4); Hemoglobin 7.4 g/dL (12.0-16.0); Lymphocytes Absolute Auto 1600 /uL (1100-4500); Lymphocytes Percent Auto 10.5 % (25-40); Mean Corpuscular HGB Conc 32.3 % (30-36); Mean Corpuscular Hemoglobin 24.7 PG (26-34); Mean Corpuscular Volume 76.5 fL (80-100); Monocytes Absolute Auto 1000 /uL (0-900); Monocytes Percent Auto 6.5 % (3-14); Neutrophils Absolute Auto 12800 /uL (1500-7000); Neutrophils Percent Auto 82.1 % (50-75); Platelet Count 656 X10^3/uL (150-400); Red Blood Cell Count 3.01 X10^6/uL (4.0-5.2); Red Cell Distribution Width 20.5 % (11.6-14.8); White Blood Cell Count 15.6 X10^3/uL (4.5-11.0)
[2022-06-06 05:41] LABS: BUN Creatinine Ratio 5.9 (6-22); Blood Urea Nitrogen 3 mg/dL (7-17); Calcium 7.1 mg/dL (8.4-10.2); Carbon Dioxide 26 mmol/L (22-32); Chloride 104 mmol/L (98-107); Estimated Glomerular Filt Rate > 60 mL/min (>60); Glucose 147 mg/dL (70-100); HEMOLYSIS < 15 (0-50); Potassium 4.1 mmol/L (3.4-5.1); Sodium 135 mmol/L (137-145)
[2022-06-06 05:44] LABS: Anisocytosis 2+; Platelet Estimate Increased on smear
[2022-06-06 05:46] LABS: Hypochromasia 1+; Poikilocytosis 1+
--- NOTE | 2022-06-06 07:22 | P.DS_ITS ---
History of Present Illness History of Present Illness Date Patient Seen: 06/06/22 Chief complaint: N/V, weakness, body aches Narrative: Patient is 46-year-old female with history of insulin-dependent diabetes, DKA, paroxysmal atrial fibrillation, history of CVA, chronic pancreatitis, frequent UTI presents with one-week history of nausea, vomiting.? She endorses rigors for the past week.? Eyes dyspnea, cough or urinary symptoms.? She has had pain in the back and abdomen.? In the ED she was noted to be ill-appearing, tachycardic in sinus rhythm, hypotensive with systolic BP in the 80s.? WBC was 20 K with 91% neutrophils, anion gap of 22, venous blood gas pH of 7.19 and HC03 of 8.? U rinalysis showed many bacteria.? X-ray without infiltrate and COVID negative she had lactate but elevated ketones of 3.2 in serum.? Procalcitonin quite high at 269.? Glucose was only 122.? Patient states her glucose has been running 130-180 recently at home. Additionally, patient states she was evaluated by her budget consultant recently and started on apixaban 2 weeks ago for AFib.? Discharge Providers Provider Date of admission: 05/31/22 16:08 Discharge Date: 06/06/22 Primary care physician: Jhonny Evans PA-C Consults: 05/31/22 17:54 Consult to Tele-supervisor wood crew Routine Comment: Consulting Provider: Jayde [employer]intens[employer] Reason for consultation: Affiliate Marketing Coordinator services 05/31/22 18:05 Consult After Hours PICC Line RN Routine Comment: Discharge provider: Allan Lemus MD Summary Hospital Course Discharge Diagnosis: Diabetes mellitus type 1 with DKA Chronic microcytic anemia Paroxysmal atrial fibrillation History of C diff colitis Severe protein calorie malnutrition Pyelonephritis Hospital Course: 1. Acute DKA, present on admission -resolved, GAP closed, back on scheduled & prn insulin -did have episode of hypoglycemia AM 06/04, decreased lantus from 12->10u, she is a brittle diabetic 2. Septic shock secondary to acute pyelonephritis, right kidney, present on admission -required pressors and stress dose hydrocortisone, subsequently changed to Midodrine which be continued at discharge. For -on CT abdomen and pelvis there was and enhancing foci in the right kidney most likely representing acute pyelo -E coli growing in urine and blood cultures from admission, pansensitive -completed 7 days of IV ceftriaxone for pansensitive E coli, with additional 5 days of oral Suprax at discharge. 3. Paroxysmal atrial fibrillation, history of -Cont apixaban 4. History of C. 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 vancomycin 125 mg b.i.d. for C. diff suppressive prophylaxis until completing the oral Suprax at home in 5 days 5. Severe protein-calorie malnutrition -this is adversely affecting healing times of all the patient's acute and chronic conditions 6. Chronic microcytic anemia, GI/hematologic work up & mgt per primary, hemoglobin remained above 7 so no transfusion was given. -started on iron/vitamin-C daily at discharge. -hemoglobin on day of discharge was stable at 7.4. 7. Cough, respiratory distress -developed cough on 06/03 -started on PRN nebs -workup showed possible fluid vs pna, with elevated BNP suspect secondary to volume resuscitation -ordered 20IV lasix x1 on 06/04 [place]. That is not ideal but is certainly better than other possible less controlled home environments. Status at Discharge Cognitive/behavioral status at discharge: at baseline, oriented Functional status at discharge: wheelchair bound Overall status at discharge: patient is progressing back to baseline Exam Vital Signs (past 8 hours): - 06/06/22 00:08 06/06/22 05:16 Temperature 96.9 F L 97.7 F Pulse Rate 103 H 105 H Respiratory Rate 17 19 Blood Pressure 123/83 101/65 Pulse Oximetry 93 91 Oxygen Flow Rate 0 Oxygen Delivery Method Room Air Oxygen Flow Rate 0 Narrative Exam Narrative: Alert and oriented x3. She says she feels tired from a poor night of sleep. Heart is regular rate and rhythm without murmur Lungs are clear to auscultation bilaterally Abdomen soft, bowel sounds positive, nontender, no organomegaly Extremities have no ankle edema Objective Labs Result Diagrams: 06/06/22 05:15 06/06/22 05:15 Labs: Laboratory Results - last 24 hr 06/06/22 06/06/22 05:15 05:15 WBC 15.6 H RBC 3.01 L Hgb 7.4 L Hct 23.0 L MCV 76.5 L MCH 24.7 L MCHC 32.3 RDW 20.5 H Plt Count 656 H Neut % (Auto) 82.1 H Lymph % (Auto) 10.5 L [place] % (Auto) 6.5 Eos % (Auto) 0.7 L Baso % (Auto) 0.2 Neut # (Auto) 27984 H Lymph # (Auto) 1600 [place] # (Auto) 1000 H Eos # (Auto) 100 Baso # (Auto) 0 Platelet Estimate Increased on smear RBC Morphology See below Hypochromasia 1+ H Poikilocytosis 1+ H Anisocytosis 2+ H Sodium 135 L Potassium 4.1 Chloride 104 Carbon Dioxide 26 BUN 3 L Creatinine 0.51 L Estimated GFR > 60 BUN/Creatinine Ratio 5.9 L Glucose 147 H Calcium 7.1 L PFSH Medical History (Updated 06/01/22 @ 13:23 by Harsha Mckinley MD) Acute CVA (cerebrovascular accident) Alcohol intoxication Chronic atrial fibrillation with RVR Closed hip fracture COVID DKA (diabetic ketoacidoses) DKA (diabetic ketoacidosis) Fibromyalgia Gastroesophageal reflux disease Insulin dependent diabetes mellitus Lupus Osteoporosis Surgical History History of hip surgery Presence of pancreatic duct stent Family History Mother Diabetes mellitus Congestive heart failure Pancreatic cancer Father Diabetes mellitus Brother Diabetes mellitus Pancreatitis Sister Drug overdose Social History household members: family Smoking Status: Current every day smoker alcohol intake: never Discharge Plan Discharge Plan Patient Disposition: Home Provider Discharge Comment: Resume Home Health RN/PT/OT Follow up with [facility] doctor this week Discharge orders & Medications Prescriptions: New midodrine 5 mg Tablet 10 mg PO TID Qty: 90 0RF ferrous sulfate 325 mg (65 mg iron) tablet 325 mg PO DAILY Qty: 30 0RF Suprax 200 mg tablet,chewable 200 mg PO Q12H Qty: 14 0RF ascorbic acid (vitamin C) [Vitamin C] 500 mg capsule, extended release 500 mg PO DAILY Qty: 30 0RF Continued insulin aspart U-100 [Novolog Flexpen U-100 Insulin] 100 unit/mL Insulin Pen 0 unit Sub-Q AC Qty: 3 0RF Rx Instructions: 1-3 UNITS TID buspirone 10 mg Tablet 2 tab PO TID cyclobenzaprine 10 mg Tablet 10 mg PO TID PRN (Reason: pain) insulin glargine 100 unit/mL (3 mL) insulin pen 10 unit SUBCUT DAILY Qty: 0 0RF Eliquis 5 mg Tablet 5 mg PO BID gabapentin 400 mg Capsule 800 mg PO QID ondansetron HCl 4 mg tablet 4 mg PO TID Label Comments: TAKE 1 TABLET BY MOUTH THREE TIMES DAILY Creon 24,000-76,000 -120,000 unit Capsule,Delayed Release(Dr/Ec) See Rx Instructions .ROUTE .COMPLEX Rx Instructions: patient says they take 800un TID, 2400un total acetaminophen 325 mg Tablet 650 mg PO Q6HR PRN (Reason: Headache) Qty: 60 0RF melatonin 3 mg Tablet 3 mg PO BEDTIME Qty: 30 0RF pseudoephedrine HCl 30 mg Tablet 30 mg PO Q6HR PRN (Reason: Congestion/ sinus headache) Qty: 30 0RF loratadine 10 mg Tablet 10 mg PO DAILY Qty: 30 0RF Follow up/Referrals: Jhonny Evans PA-C [Primary Care Provider] - Diet/Activity/Treatments Diet: Carb-consistent/Diabetic Discharge Data Primary Care Provider: Jhonny Evans Quality VTE Deep Vein Thrombosis/Pulmonary Embolism Present on Admission: No
--- NOTE | 2022-06-06 07:23 | P.PN_ITS ---
Subjective Subjective Date Patient Seen: 06/06/22 Exam Vital Signs (past 8 hours): - 06/06/22 00:08 06/06/22 05:16 Temperature 96.9 F L 97.7 F Pulse Rate 103 H 105 H Respiratory Rate 17 19 Blood Pressure 123/83 101/65 Pulse Oximetry 93 91 Oxygen Flow Rate 0 Oxygen Delivery Method Room Air Oxygen Flow Rate 0 Objective Labs Result Diagrams: 06/06/22 05:15 06/06/22 05:15 Labs: Laboratory Results - last 24 hr 06/06/22 06/06/22 05:15 05:15 WBC 15.6 H RBC 3.01 L Hgb 7.4 L Hct 23.0 L MCV 76.5 L MCH 24.7 L MCHC 32.3 RDW 20.5 H Plt Count 656 H Neut % (Auto) 82.1 H Lymph % (Auto) 10.5 L [place] % (Auto) 6.5 Eos % (Auto) 0.7 L Baso % (Auto) 0.2 Neut # (Auto) 44698 H Lymph # (Auto) 1600 [place] # (Auto) 1000 H Eos # (Auto) 100 Baso # (Auto) 0 Platelet Estimate Increased on smear RBC Morphology See below Hypochromasia 1+ H Poikilocytosis 1+ H Anisocytosis 2+ H Sodium 135 L Potassium 4.1 Chloride 104 Carbon Dioxide 26 BUN 3 L Creatinine 0.51 L Estimated GFR > 60 BUN/Creatinine Ratio 5.9 L Glucose 147 H Calcium 7.1 L PFSH Medical History (Updated 06/01/22 @ 13:23 by Harsha Mckinley MD) Acute CVA (cerebrovascular accident) Alcohol intoxication Chronic atrial fibrillation with RVR Closed hip fracture COVID DKA (diabetic ketoacidoses) DKA (diabetic ketoacidosis) Fibromyalgia Gastroesophageal reflux disease Insulin dependent diabetes mellitus Lupus Osteoporosis Surgical History History of hip surgery Presence of pancreatic duct stent Family History Mother Diabetes mellitus Congestive heart failure Pancreatic cancer Father Diabetes mellitus Brother Diabetes mellitus Pancreatitis Sister Drug overdose Social History household members: family Smoking Status: Current every day smoker alcohol intake: never Assessment & Plan Assessment & Plan narrative: 1. Acute DKA, present on admission -resolved, GAP closed, back on scheduled & prn insulin -did have episode of hypoglycemia AM 06/04, decreased lantus from 12->10u, she is brittle diabetic 2. Septic shock secondary to acute pyelonephritis, right kidney, present on admission -off pressor, stop stress dose hydrocortisone , continue meidodrine 10 mg TID/ wean off as tolerated -on CT abdomen and pelvis there is enhancing foci in the right kidney most likely representing acute pyelo -E coli growing in urine and blood cultures from admission, pansensitive -Day 1 antibiotics 05/31, now on day 6, likely will need 7-14 days and can switch to PO on discharge -has a picc line 3. Paroxysmal atrial fibrillation, history of -Cont apixaban 4. History of C. 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 vancomycin 125 mg b.i.d. for C. diff suppressive prophylaxis 5. Severe protein-calorie malnutrition -this is adversely affecting healing times of all the patient's acute and chronic conditions 6. Chronic microcytic anemia, work up & mgt per primary, may trasnfuse 1 unit, transfuse for HB < 7 7. Cough, respiratory distress -developed cough on 06/03 -started on PRN nebs -workup showed possible fluid vs pna, with elevated BNP suspect secondary to volume resuscitation -ordered 20IV lasix x1 on 06/04 Time Spent With Patient Critical Care time: I spent a total of [] minutes of critical care time on this patient's care today ; this time is exclusive of procedural time. Quality VTE Deep Vein Thrombosis/Pulmonary Embolism Present on Admission: No
[2022-06-06 07:43] VITALS: BP 101/66; PULSE 108; RESP 18; TEMP 36.4; O2SAT 93
[2022-06-06] MEDS: VANCOMYCIN 125 MG CAPSULE PO (09:06)
[2022-06-06] MEDS: GABAPENTIN 400 MG CAPSULE 800 MG PO (09:06)
[2022-06-06] MEDS: CYCLOBENZAPRINE 10 MG TABLET PO (09:06)
[2022-06-06] MEDS: APIXABAN 5 MG TABLET PO (09:06)
[2022-06-06] MEDS: MIDODRINE HCL 5 MG TABLET 10 MG PO (09:06)
[2022-06-06] MEDS: LORATADINE 10 MG TABLET PO (09:06)
[2022-06-06] MEDS: BUSPIRONE 5 MG TABLET 20 MG PO (09:06)
== END 2022-06-06 11:42 | disposition home health service (06) | DRG 871 ==
LOC: ED 15:24 → AC 16:08 → ICU 16:15 → AC 06-05 10:55
PROVIDERS: Family Medicine; Internal Medicine; Internal Medicine Critical Care Medicine; Internal Medicine Pulmonary Disease; Student in an Organized Health Care Education/Training Program; Admitting Provider Internal Medicine; Emergency Provider Emergency Medicine; PCP Physician Assistant; Referring Provider Emergency Medicine; Visit Provider Internal Medicine
DX: A41.51 Sepsis due to Escherichia coli [E. coli] (principal); E10.10 Type 1 diabetes mellitus with ketoacidosis without coma; R65.21 Severe sepsis with septic shock; E43 Unspecified severe protein-calorie malnutrition; J18.9 Pneumonia, unspecified organism; N10 Acute pyelonephritis; Z68.1 Body mass index [BMI] 19.9 or less, adult; I48.0 Paroxysmal atrial fibrillation; E86.0 Dehydration; E87.70 Fluid overload, unspecified; F17.210 Nicotine dependence, cigarettes, uncomplicated; D64.9 Anemia, unspecified; Z86.19 Personal history of other infectious and parasitic diseases; Z79.01 Long term (current) use of anticoagulants; Z20.822 Contact with and (suspected) exposure to COVID-19
CPT/HCPCS: 36415; 36592; 70450; 71045; 74177; 80048; 80053; 81001; 82009; 82550; 82805; 82962; 83605; 83690; 83735; 83880; 84100; 84145; 84443; 84484; 85007; 85025; 87040; 87045; 87077; 87086; 87150; 87186; 87635; 87797; 87899; 93005; 94640; 94762; 96361; 96365; 96375; 99285; 99291; C9803; J0696; J1170; J1642; J1720; J1815; J1940; J2405; J2543; J3010; Q9967

== ENCOUNTER 2022-06-10 00:44 | Emergency (ER) | payer MEDICAID, OTHER, SELFPAY ==
[2022-05-31 18:02] VITALS: BMI 19.5
[2022-06-10] VITALS (85 sets, daily range): BP systolic 74–126; BP diastolic 49–73; PULSE 102–118; RESP 10–30; TEMP 36.7; O2SAT 97–100; BMI 21.7
--- NOTE | 2022-06-10 00:55 | DI.RAD.S_ITS ---
PROCEDURE: XR CHEST 1V INDICATIONS: chest pain TECHNIQUE: One view of the chest was acquired. COMPARISON: [facility], CR, XR CHEST 1V, 06/04/2022, 8:48. FINDINGS: Surgical changes and devices: None. Lungs and pleura: Lungs demonstrate no definite acute airspace opacities. No pleural effusions or pneumothorax. Mediastinum: Mediastinal contours appear normal. Heart size is normal. Bones and chest wall: No suspicious bony lesions. Overlying soft tissues appear unremarkable. IMPRESSION: 1. No definite acute cardiopulmonary disease. Dictated by: Terry Gomez M.D. on 06/10/2022 at 1:24 Approved by: Terry Gomez M.D. on 06/10/2022 at 1:25
[2022-06-10 01:29] LABS: Add Manual Diff / Slide Review NO; Basophils Absolute Auto 100 /uL (0-100); Basophils Percent Auto 0.4 % (0-2); Eosinophils Absolute Auto 0 /uL (0-450); Eosinophils Percent Auto 0.1 % (2-4); Hematocrit 32.5 % (36-46); Hemoglobin 10.2 g/dL (12.0-16.0); Lymphocytes Absolute Auto 4000 /uL (1100-4500); Mean Corpuscular HGB Conc 31.3 % (30-36); Mean Corpuscular Hemoglobin 24.5 PG (26-34); Mean Corpuscular Volume 78.1 fL (80-100); Monocytes Absolute Auto 400 /uL (0-900); Monocytes Percent Auto 1.9 % (3-14); Neutrophils Absolute Auto 17700 /uL (1500-7000); Neutrophils Percent Auto 79.6 % (50-75); Red Blood Cell Count 4.16 X10^6/uL (4.0-5.2); Red Cell Distribution Width 20.9 % (11.6-14.8); White Blood Cell Count 22.3 X10^3/uL (4.5-11.0)
--- NOTE | 2022-06-10 01:31 | DI.CT.S_ITS ---
PROCEDURE: CT HEAD/BRAIN WO CON INDICATIONS: fall TECHNIQUE: Noncontrast 4.5 mm thick angled axial sections acquired from the foramen magnum to the vertex, with coronal and sagittal reformats. For radiation dose reduction, the following was used: automated exposure control, adjustment of mA and/or kV according to patient size. COMPARISON: [facility], CT, CT HEAD/BRAIN WO CON, 05/31/2022, 15:00. FINDINGS: Image quality: Excellent. CSF spaces: Basal cisterns are patent. No extra-axial fluid collections. The ventricles are symmetric in size and shape. Brain: No intracranial bleeds or masses. There is a small right frontal parietal infarct with encephalomalacia. There is cerebral volume loss for age, with resultant ventricular and sulcal prominence. There are periventricular and deep white matter chronic small vessel ischemic changes. There is intracranial internal carotid and vertebral artery atherosclerosis. Skull and face: Calvarium and visualized facial bones appear intact, without suspicious lesions. Sinuses: Visualized sinuses and mastoids are clear. IMPRESSION: 1. No acute intracranial abnormalities. 2. Old right frontal parietal infarct. 3. Cerebral volume loss and chronic microvascular ischemic changes. No significant discrepancy with the mold shifter radiology preliminary report. Dictated by: Ina Michel M.D. on 06/10/2022 at 7:59 Approved by: Ina Michel M.D. on 06/10/2022 at 8:00
--- NOTE | 2022-06-10 01:31 | DI.CT.S_ITS ---
PROCEDURE: CT LUMBAR SPINE WO CON INDICATIONS: fall TECHNIQUE: Noncontrast 3 mm thick sections acquired from the T12 level to the sacrum. Sagittal and coronal reformats were constructed. For radiation dose reduction, the following was used: automated exposure control. COMPARISON: [facility], US, US RENAL COMPLETE, 11/29/2021, 10:46. [facility], CT, CT ABDOMEN PELVIS W CON, 02/08/2018, 17:27. [facility], CT, CT ABDOMEN PELVIS W CON, 05/31/2022, 15:00. FINDINGS: Image quality: Excellent. Bones: There is trace anterolisthesis of L5 on S1 secondary to bilateral pars defects at L5. No acute vertebral body compression fractures. No suspicious lytic or blastic bony lesions. No pars defects. There is moderate degenerative disc disease at L4-L5 and L5-S1, and mild degenerative disease at L2-L3 and L3-L4. Moderate facet arthropathy at L4-L5 and L5-S1 bilaterally. Soft tissues: No retroperitoneal masses or hematomas. Visualized aorta is normal in caliber. There is a large amount of stool in colon. There is appearance of a mass in the right kidney, which is partially visualized. Bladder wall thickening is seen in the left lateral bladder wall. IMPRESSION: 1. No acute traumatic lumbar spine injuries. 2. Degenerative disc and facet disease in lumbar spine. 3. Bilateral pars interarticularis defects at L5 causing mild anterolisthesis at L5-S1. 4. Suspect mass in right kidney. Please correlates with recent CT dated 05/31/2022. 5. Bladder wall thickening involving the left lateral aspect of the urinary bladder, partially visualized. Please correlate with the recent CT dated 05/31/2022. No significant discrepancy with the retail shift manager radiology preliminary report. Dictated by: Ina Michel M.D. on 06/10/2022 at 8:03 Approved by: Ina Michel M.D. on 06/10/2022 at 8:28
--- NOTE | 2022-06-10 01:31 | DI.CT.S_ITS ---
PROCEDURE: CT CERVICAL SPINE WO CON INDICATIONS: fall TECHNIQUE: Noncontrast 3 mm thick sections acquired from the skull base to the T4 level. Sagittal and coronal reformats were then constructed. For radiation dose reduction, the following was used: automated exposure control, adjustment of mA and/or kV according to patient size. COMPARISON: [facility], CT, CT CERVICAL SPINE WO CON, 02/12/2022, 8:07. FINDINGS: Image quality: Excellent. Bones: No fractures or dislocations. Visualized superior ribs are intact. Soft tissues: Prevertebral soft tissues are normal in thickness. No paravertebral hematomas. No apical pneumothoraces. IMPRESSION: No acute traumatic injuries in cervical spine. No significant discrepancy with the nightman radiology preliminary report. Dictated by: Ina Michel M.D. on 06/10/2022 at 8:00 Approved by: Ina Michel M.D. on 06/10/2022 at 8:01
[2022-06-10 01:45] LABS: Platelet Count 948 X10^3/uL (150-400)
[2022-06-10 01:46] LABS: Alanine Aminotransferase 67 IU/L (<35); Albumin 2.4 g/dL (3.5-5.0); Albumin Globulin Ratio 0.8 (1.0-2.8); Alkaline Phosphatase 184 U/L (38-126); Aspartate Aminotransferase 140 IU/L (14-36); BUN Creatinine Ratio 13.9 (6-22); Bilirubin Total 0.5 mg/dL (0.2-1.3); Blood Urea Nitrogen 14 mg/dL (7-17); Calcium 6.9 mg/dL (8.4-10.2); Carbon Dioxide 16 mmol/L (22-32); Chloride 105 mmol/L (98-107); Creatine Kinase 23 U/L (30-135); Estimated Glomerular Filt Rate > 60 mL/min (>60); Globulin 3.2 g/dL (1.7-4.1); Glucose 205 mg/dL (70-100); HEMOLYSIS < 15 (0-50); Sodium 136 mmol/L (137-145); Total Protein 5.6 g/dL (6.3-8.2)
[2022-06-10 01:47] LABS: Lipase < 10 U/L (23-300)
[2022-06-10 01:57] LABS: Troponin I < 0.012 ng/mL (0.01-0.034)
[2022-06-10 02:04] LABS: Anisocytosis 2+; Poikilocytosis 1+
[2022-06-10 02:05] LABS: Platelet Estimate Increased on smear
--- NOTE | 2022-06-10 03:16 | ED_ITS ---
HPI - Fall <Amada Savage, DO - Last Filed: 06/10/22 23:30> General Chief Complaint: Fall Stated Complaint: GLF Hit head Time Seen by Provider: 06/10/22 01:31 Source: patient and EMS Mode of arrival: EMS History of Present Illness HPI Narrative: Patient is a 46-year-old female history of type 1 diabetes poorly controlled, CVA started on Eliquis for her heart murmur presents today with nausea and fall. She was recently admitted to hospital May 31 through June 06. She was in with DKA, septic shock pyelonephritis. She says today she was feeling very nauseous she started vomiting intermittently. She has no abdominal pain. She got up to use the restroom when suddenly she woke up on the floor with her walker on top of her. She is complaining of severe neck pain. He is noted to be hypotensive with blood pressure 97/53. She states that sometimes her blood pressure does go low. She denies any abdominal pain. But still overall does not feel very good. Related Data Home Medications Medication Instructions Recorded Confirmed buspirone 10 mg tablet 2 tab PO TID 12/08/18 05/31/22 cyclobenzaprine 10 mg tablet 10 mg PO TID PRN pain 12/08/18 05/31/22 [id number] See Rx Instructions .Route .COMPLEX 02/14/22 05/31/22 24,000-76,000-120,000 unit capsule,delayed rel (Creon) ondansetron HCl 4 mg tablet 4 mg PO TID 02/14/22 05/31/22 apixaban 5 mg tablet (Eliquis) 5 mg PO BID 05/31/22 05/31/22 gabapentin 400 mg capsule 800 mg PO QID 05/31/22 05/31/22 Previous Rx's Medication Instructions Recorded insulin aspart U-100 100 unit/mL 0 unit (0 mL) SUBCUT AC #3 units 02/12/18 (3 mL) subcutaneous pen (Novolog Flexpen U-100 Insulin aspart) insulin glargine 100 unit/mL (3 10 unit (0.1 mL) SUBCUT DAILY #0 mL 12/09/21 mL) subcutaneous pen acetaminophen 325 mg tablet 650 mg PO Q6HR PRN Headache #60 02/19/22 tabs loratadine 10 mg tablet 10 mg PO DAILY #30 tabs 02/19/22 melatonin 3 mg tablet 3 mg PO BEDTIME #30 tabs 02/19/22 pseudoephedrine HCl 30 mg tablet 30 mg PO Q6HR PRN Congestion/ 02/19/22 sinus headache #30 tabs ascorbic acid (vitamin C) 500 mg 500 mg PO DAILY #30 caps 06/06/22 capsule,extended release (Vitamin C) cefixime 200 mg chewable tablet 200 mg PO Q12H #14 tabs 06/06/22 (Suprax) ferrous sulfate 325 mg (65 mg 325 mg PO DAILY #30 tabs 06/06/22 iron) tablet midodrine 5 mg tablet 10 mg PO TID #90 tabs 06/06/22 Allergies Allergy/AdvReac Type Severity Reaction Status Date / Time amitriptyline Allergy Intermediate Verified 05/31/22 13:21 sulfasalazine [SULFASALAZINE] Allergy Mild PANCREATITI Verified 05/31/22 13:21 S trazodone AdvReac Intermediate HEART Verified 05/31/22 13:21 PALPITATIONS Review of Systems <mAada Savage DO - Last Filed: 06/10/22 23:30> Review of Systems Narrative: GENERAL: Denies chills, fatigue, malaise, fever, sweats, travel HEENT: Denies sinus pain, ear pain, sore throat, difficulty swallowing, neck pain RESPIRATORY: Denies dyspnea, cough, wheezing, hemoptysis, sputum. CARDIOVASCULAR: Denies chest pain, palpitations, orthopnea, edema GASTROINTESTINAL: See HPI : Denies dysuria, frequency, incontinence, hematuria, urinary retention, flank pain. MUSCULOSKELETAL: See HPI SKIN: No rash, no erythema, no pruritus NEUROLOGIC: Denies weakness, dizziness, headache, numbness, change in speech, confusion PSYCHIATRIC: No concerning psychosocial issues. 12 point review of systems is negative except for those stated above and HPI Patient History <DO Sophie Hernandes Last Filed: 06/10/22 23:30> Medical History (Updated 06/10/22 @ 15:29 by Jhonny Cao MD) Acute CVA (cerebrovascular accident) Alcohol intoxication Chronic atrial fibrillation with RVR Closed hip fracture COVID DKA (diabetic ketoacidoses) DKA (diabetic ketoacidosis) Fibromyalgia Gastroesophageal reflux disease Insulin dependent diabetes mellitus Lupus Osteoporosis Surgical History History of hip surgery Presence of pancreatic duct stent Family History Mother Diabetes mellitus Congestive heart failure Pancreatic cancer Father Diabetes mellitus Brother Diabetes mellitus Pancreatitis Sister Drug overdose Social History household members: family Smoking Status: Current every day smoker alcohol intake: never Smoking Status: Current every day smoker alcohol intake frequency: holidays/special occasions only Substance Use Type: does not use Exam <Amada Savage DO - Last Filed: 06/10/22 23:30> Initial Vital Signs Initial Vital Signs: Vital Signs Pulse Rate 111 H 06/10/22 00:48 Respiratory Rate 24 06/10/22 00:48 Blood Pressure 97/53 L 06/10/22 00:48 Pulse Oximetry 100 06/10/22 00:48 Oxygen Delivery Method 06/10/22 00:48 GENERAL: Alert 46-year-old female HEENT: Head atraumatic,EOMI, pupils reactive, face symmetric, moist mucous membranes NECK: Nontender C1-2 and 3 no step-offs, hard C-collar placed in ED CARDIOVASCULAR: Regular rate and rhythm without murmurs, rubs or gallops. RESPIRATORY: Breath sounds equal bilaterally, no wheezes rales or rhonchi. ABDOMEN: Soft, nontender. Normoactive bowel sounds all 4 quadrants. No guarding or rebound. BACK: Lower lumbar pain no vertebral step-offs no sign of trauma EXTREMITIES: Normal range of motion, no clubbing or edema. Neurovascularly intact NEUROLOGICAL: Alert and oriented x4.Normal gait and speech. Crew Foreman strength equal bilaterally moving both lower extremity SKIN: Warm, dry, no laceration, no petechiae, no rashes or lesions. <Jhonny Cao MD - Last Filed: 06/11/22 07:03> Initial Vital Signs Initial Vital Signs: Vital Signs Pulse Rate 111 H 06/10/22 00:48 Respiratory Rate 24 06/10/22 00:48 Blood Pressure 97/53 L 06/10/22 00:48 Pulse Oximetry 100 06/10/22 00:48 Oxygen Delivery Method 06/10/22 00:48 Course <Amada Savage DO - Last Filed: 06/10/22 23:30> Orders Ordered: Discontinued Medications Acetaminophen (Acetaminophen 325 Mg Tablet) 650 mg PO NOW ONE Stop: 06/10/22 13:42 Last Admin: 06/10/22 13:46 Dose: 650 mg Documented By: PAULETTE Dextrose (Dextrose 50 % In Water 25 Gm/50 Ml Syringe) 25 gm IV NOW ONE Stop: 06/10/22 10:50 Last Admin: 06/10/22 10:51 Dose: 25 gm Documented By: STEPHANIE Hydromorphone HCl (Hydromorphone 0.5 Mg Inj) 0.5 mg IV NOW ONE Stop: 06/10/22 03:18 Last Admin: 06/10/22 03:25 Dose: 0.5 mg Documented By: DAVID Hydromorphone HCl (Hydromorphone 1 Mg Inj) 1 mg IV NOW ONE Stop: 06/10/22 04:33 Last Admin: 06/10/22 04:39 Dose: 1 mg Documented By: DAVID Sodium Chloride (Normal Saline 0.9%) 1,000 mls @ 1,000 mls/hr IV BOLUS ONE Stop: 06/10/22 04:16 Last Infusion: 06/10/22 04:56 Dose: 0 mls/hr Documented By: Admin: 06/10/22 03:25 Dose: 1,000 mls/hr Documented By: OW Sodium Chloride (Normal Saline 0.9%) 1,000 mls @ 1,000 mls/hr IV BOLUS ONE Stop: 06/10/22 05:59 Last Infusion: 06/10/22 06:59 Dose: 0 mls/hr Documented By: Admin: 06/10/22 05:00 Dose: 1,000 mls/hr Documented By: DAVID Potassium Chloride/Dextrose/Sod Cl (Dextrose 5%-0.45%Ns W/Kcl 20meq) 1,000 mls @ 100 mls/hr IV CONT JOSE ANTONIO Last Infusion: 06/10/22 18:32 Dose: 0 mls/hr Documented By: Admin: 06/10/22 07:24 Dose: 100 mls/hr Documented By: STEPHANIE Insulin Human Regular 100 unit (/ Sodium Chloride) 100 mls @ 6 mls/hr IV TITRATE JOSE ANTONIO; Protocol Last Titration: 06/10/22 19:30 Dose: 0 mls/hr, 0 mls/hr Documented By: PAULETTE Co-signed By: MICHAEL Titration: 06/10/22 10:49 Dose: 0 mls/hr, 0 mls/hr Documented By: STEPHANIE Co-signed By: MICHAEL Titration: 06/10/22 09:59 Dose: 1.12 mls/hr, 1.12 mls/hr Documented By: STEPHANIE Co-signed By: MICHAEL Admin: 06/10/22 08:35 Dose: 6 mls/hr, 6 mls/hr Documented By: STEPHANIE Co-signed By: JEFFERY Sodium Chloride (Normal Saline 0.9%) 500 mls @ 500 mls/hr IV BOLUS ONE Stop: 06/10/22 10:40 Last Infusion: 06/10/22 10:43 Dose: 0 mls/hr Documented By: Admin: 06/10/22 09:42 Dose: 500 mls/hr Documented By: STEPHANIE Sodium Chloride (Normal Saline 0.9%) 500 mls @ 1,000 mls/hr IV BOLUS ONE Stop: 06/10/22 12:23 Last Infusion: 06/10/22 13:56 Dose: 0 mls/hr Documented By: Admin: 06/10/22 11:59 Dose: 1,000 mls/hr Documented By: STEPHANIE Piperacillin Sod/Tazobactam (Sod 4.5 gm/ Sodium Chloride) 100 mls @ 200 mls/hr IV NOW ONE Stop: 06/10/22 11:55 Last Infusion: 06/10/22 14:37 Dose: 0 mls/hr Documented By: Admin: 06/10/22 13:42 Dose: 200 mls/hr Documented By: PAULETTE NOREPINEPHRINE BITARTRATE/D5W (Levophed) 4 mg in 250 mls @ 30 mls/hr IV TITRATE JOSE ANTONIO; Protocol Last Titration: 06/10/22 19:30 Dose: 4 mcg/min, 15 mls/hr Documented By: Admin: 06/10/22 15:20 Dose: 8 mcg/min, 30 mls/hr Documented By: PAULETTE Calcium Gluconate 9.3 meq/ (Sodium Chloride) 70 mls @ 140 mls/hr IV NOW ONE Stop: 06/10/22 15:46 Last Infusion: 06/10/22 17:05 Dose: 0 mls/hr Documented By: Admin: 06/10/22 16:27 Dose: 140 mls/hr Documented By: XUAN Midazolam HCl (Midazolam 2 Mg/2 Ml Vial) 5 mg IV NOW ONE Stop: 06/10/22 07:45 Last Admin: 06/10/22 07:55 Dose: 0.5 mg Documented By: STEPHANIE Midazolam HCl (Midazolam 2 Mg/2 Ml Vial) 1 mg IV NOW ONE Stop: 06/10/22 08:19 Last Admin: 06/10/22 08:05 Dose: 1 mg Documented By: STEPHANIE Morphine Sulfate (Morphine 4 Mg/Ml Inj) 2 mg IV NOW ONE Stop: 06/10/22 08:47 Last Admin: 06/10/22 08:51 Dose: 2 mg Documented By: STEPHANIE Morphine Sulfate (Morphine 2 Mg/Ml Inj) 2 mg IV NOW ONE Stop: 06/10/22 16:31 Last Admin: 06/10/22 16:40 Dose: 2 mg Documented By: PAULETTE Ondansetron HCl (Ondansetron 4 Mg/2 Ml Inj) 4 mg IV NOW ONE Stop: 06/10/22 05:37 Last Admin: 06/10/22 05:37 Dose: 4 mg Documented By: DAVID Ondansetron HCl (Ondansetron 4 Mg/2 Ml Inj) 4 mg IV NOW ONE Stop: 06/10/22 16:31 Last Admin: 06/10/22 16:40 Dose: 4 mg Documented By: PAULETTE Vital Signs Vital signs: Vital Signs - 8 hr 06/10/22 18:19 06/10/22 16:15 06/10/22 16:15 Temperature 98.1 F Pulse Rate 104 H Respiratory Rate 17 Blood Pressure 114/69 Pulse Oximetry 100 06/10/22 16:20 06/10/22 16:20 06/10/22 16:25 Temperature Pulse Rate 104 H 105 H Respiratory Rate 17 16 Blood Pressure 117/71 Pulse Oximetry 100 100 06/10/22 16:25 06/10/22 16:30 06/10/22 16:30 Temperature Pulse Rate 103 H Respiratory Rate 16 Blood Pressure 115/68 115/67 Pulse Oximetry 100 06/10/22 16:35 06/10/22 16:35 06/10/22 16:40 Temperature Pulse Rate 103 H 104 H Respiratory Rate 21 13 Blood Pressure 115/67 Pulse Oximetry 100 100 06/10/22 16:40 06/10/22 16:45 06/10/22 16:45 Temperature Pulse Rate 103 H Respiratory Rate 14 Blood Pressure 117/71 121/70 Pulse Oximetry 100 06/10/22 16:50 06/10/22 16:50 06/10/22 16:55 Temperature Pulse Rate 103 H 104 H Respiratory Rate 17 16 Blood Pressure 126/72 Pulse Oximetry 100 100 06/10/22 16:55 06/10/22 17:00 06/10/22 17:00 Temperature Pulse Rate 108 H Respiratory Rate 20 Blood Pressure 116/67 118/67 Pulse Oximetry 100 06/10/22 17:05 06/10/22 17:05 06/10/22 17:10 Temperature Pulse Rate 104 H 106 H Respiratory Rate 19 24 Blood Pressure 124/73 Pulse Oximetry 100 100 06/10/22 17:10 06/10/22 17:15 06/10/22 17:15 Temperature Pulse Rate 104 H Respiratory Rate 18 Blood Pressure 124/70 122/69 Pulse Oximetry 100 06/10/22 17:20 06/10/22 17:20 06/10/22 17:25 Temperature Pulse Rate 107 H Respiratory Rate 23 Blood Pressure 120/72 110/68 Pulse Oximetry 100 06/10/22 17:25 06/10/22 17:30 06/10/22 17:30 Temperature Pulse Rate 107 H 106 H Respiratory Rate 21 18 Blood Pressure 115/64 Pulse Oximetry 100 100 06/10/22 17:35 06/10/22 17:35 06/10/22 17:40 Temperature Pulse Rate 105 H Respiratory Rate 22 Blood Pressure 111/66 113/67 Pulse Oximetry 100 06/10/22 17:40 06/10/22 17:45 06/10/22 17:45 Temperature Pulse Rate 104 H 103 H Respiratory Rate 17 19 Blood Pressure 110/66 Pulse Oximetry 100 100 06/10/22 17:50 06/10/22 17:50 06/10/22 17:55 Temperature Pulse Rate 103 H 103 H Respiratory Rate 20 15 Blood Pressure 105/61 Pulse Oximetry 100 100 06/10/22 17:55 06/10/22 18:00 06/10/22 18:00 Temperature Pulse Rate 102 H Respiratory Rate 20 Blood Pressure 113/66 113/65 Pulse Oximetry 100 06/10/22 18:05 06/10/22 18:05 06/10/22 18:10 Temperature Pulse Rate 102 H Respiratory Rate 15 Blood Pressure 115/68 116/67 Pulse Oximetry 100 06/10/22 18:10 06/10/22 18:15 06/10/22 18:15 Temperature Pulse Rate 103 H 104 H Respiratory Rate 17 17 Blood Pressure 115/65 Pulse Oximetry 100 100 <Jhonny Cao MD - Last Filed: 06/11/22 07:03> Course Course Narrative: June 10, 2002 at 7:00 a.m.. Sign out from Dr. Savage, patient here for nausea and vomiting hypotension. Patient just discharged from the hospital with diagnosis of stroke. Patient is diabetic. Patient needing central line for IV access. Patient has poor peripheral access. Imaging reassuring at this time. Patient will need admit/transfer Decision to Admit Date: 06/10/22 Decision to Admit time: 11:57 Orders Ordered: Discontinued Medications Acetaminophen (Acetaminophen 325 Mg Tablet) 650 mg PO NOW ONE Stop: 06/10/22 13:42 Last Admin: 06/10/22 13:46 Dose: 650 mg Documented By: PAULETTE Dextrose (Dextrose 50 % In Water 25 Gm/50 Ml Syringe) 25 gm IV NOW ONE Stop: 06/10/22 10:50 Last Admin: 06/10/22 10:51 Dose: 25 gm Documented By: STEPHANIE Hydromorphone HCl (Hydromorphone 0.5 Mg Inj) 0.5 mg IV NOW ONE Stop: 06/10/22 03:18 Last Admin: 06/10/22 03:25 Dose: 0.5 mg Documented By: DAVID Hydromorphone HCl (Hydromorphone 1 Mg Inj) 1 mg IV NOW ONE Stop: 06/10/22 04:33 Last Admin: 06/10/22 04:39 Dose: 1 mg Documented By: OW Sodium Chloride (Normal Saline 0.9%) 1,000 mls @ 1,000 mls/hr IV BOLUS ONE Stop: 06/10/22 04:16 Last Infusion: 06/10/22 04:56 Dose: 0 mls/hr Documented By: Admin: 06/10/22 03:25 Dose: 1,000 mls/hr Documented By: OW Sodium Chloride (Normal Saline 0.9%) 1,000 mls @ 1,000 mls/hr IV BOLUS ONE Stop: 06/10/22 05:59 Last Infusion: 06/10/22 06:59 Dose: 0 mls/hr Documented By: Admin: 06/10/22 05:00 Dose: 1,000 mls/hr Documented By: DAVID Potassium Chloride/Dextrose/Sod Cl (Dextrose 5%-0.45%Ns W/Kcl 20meq) 1,000 mls @ 100 mls/hr IV CONT JOSE ANTONIO Last Infusion: 06/10/22 18:32 Dose: 0 mls/hr Documented By: Admin: 06/10/22 07:24 Dose: 100 mls/hr Documented By: STEPHANIE Insulin Human Regular 100 unit (/ Sodium Chloride) 100 mls @ 6 mls/hr IV TITRATE JOSE ANTONIO; Protocol Last Titration: 06/10/22 19:30 Dose: 0 mls/hr, 0 mls/hr Documented By: PAULETTE Co-signed By: MICHAEL Titration: 06/10/22 10:49 Dose: 0 mls/hr, 0 mls/hr Documented By: STEPHANIE Co-signed By: MICHAEL Titration: 06/10/22 09:59 Dose: 1.12 mls/hr, 1.12 mls/hr Documented By: STEPHANIE Co-signed By: MICHAEL Admin: 06/10/22 08:35 Dose: 6 mls/hr, 6 mls/hr Documented By: STEPHANIE Co-signed By: JEFFERY Sodium Chloride (Normal Saline 0.9%) 500 mls @ 500 mls/hr IV BOLUS ONE Stop: 06/10/22 10:40 Last Infusion: 06/10/22 10:43 Dose: 0 mls/hr Documented By: Admin: 06/10/22 09:42 Dose: 500 mls/hr Documented By: STEPHANIE Sodium Chloride (Normal Saline 0.9%) 500 mls @ 1,000 mls/hr IV BOLUS ONE Stop: 06/10/22 12:23 Last Infusion: 06/10/22 13:56 Dose: 0 mls/hr Documented By: Admin: 06/10/22 11:59 Dose: 1,000 mls/hr Documented By: STEPHANIE Piperacillin Sod/Tazobactam (Sod 4.5 gm/ Sodium Chloride) 100 mls @ 200 mls/hr IV NOW ONE Stop: 06/10/22 11:55 Last Infusion: 06/10/22 14:37 Dose: 0 mls/hr Documented By: Admin: 06/10/22 13:42 Dose: 200 mls/hr Documented By: NR NOREPINEPHRINE BITARTRATE/D5W (Levophed) 4 mg in 250 mls @ 30 mls/hr IV TITRATE JOSE ANTONIO; Protocol Last Titration: 06/10/22 19:30 Dose: 4 mcg/min, 15 mls/hr Documented By: Admin: 06/10/22 15:20 Dose: 8 mcg/min, 30 mls/hr Documented By: NR Calcium Gluconate 9.3 meq/ (Sodium Chloride) 70 mls @ 140 mls/hr IV NOW ONE Stop: 06/10/22 15:46 Last Infusion: 06/10/22 17:05 Dose: 0 mls/hr Documented By: Admin: 06/10/22 16:27 Dose: 140 mls/hr Documented By: XUAN Midazolam HCl (Midazolam 2 Mg/2 Ml Vial) 5 mg IV NOW ONE Stop: 06/10/22 07:45 Last Admin: 06/10/22 07:55 Dose: 0.5 mg Documented By: STEPHANIE Midazolam HCl (Midazolam 2 Mg/2 Ml Vial) 1 mg IV NOW ONE Stop: 06/10/22 08:19 Last Admin: 06/10/22 08:05 Dose: 1 mg Documented By: STEPHANIE Morphine Sulfate (Morphine 4 Mg/Ml Inj) 2 mg IV NOW ONE Stop: 06/10/22 08:47 Last Admin: 06/10/22 08:51 Dose: 2 mg Documented By: STEPHANIE Morphine Sulfate (Morphine 2 Mg/Ml Inj) 2 mg IV NOW ONE Stop: 06/10/22 16:31 Last Admin: 06/10/22 16:40 Dose: 2 mg Documented By: PAULETTE Ondansetron HCl (Ondansetron 4 Mg/2 Ml Inj) 4 mg IV NOW ONE Stop: 06/10/22 05:37 Last Admin: 06/10/22 05:37 Dose: 4 mg Documented By: DAVID Ondansetron HCl (Ondansetron 4 Mg/2 Ml Inj) 4 mg IV NOW ONE Stop: 06/10/22 16:31 Last Admin: 06/10/22 16:40 Dose: 4 mg Documented By: PAULETTE Reevaluation(s) Reevaluation #1: Central line has been placed by anesthesiologist, Dr. Posada. Without complication. Chest x-ray is done. Time: 08:00 Reevaluation #2: Patient is sitting up and eating lunch without any difficulty. Reevaluation #3: Patient not maintaining blood pressure above 100. Very little urine output on Valente catheter. Levophed has been started. Zosyn already been given. Patient has already received 4 L normal saline. Patient understands she will be transferred to [facility] ICU as we do not have ICU beds locally or here Time: 15:26 Consultations Consultation #1: Spoke with Dr. López, hospitalist, at this time would recommend giving IV fluid for resuscitation, hold on vasopressors. Start antibiotics and blood culture. Call back for improvement of blood pressure, then will decide for admission Time: 11:59 Consultation #2: Spoke with nurse practitioner adult/ICU Dr. Olivas at [facility]. She has collected information about patient, she will call back to make decision for acceptance Consultation #3: Updated Dr. Olivas, patient needs to be admitted for urinary sepsis, patient has been started on Levophed. She will accept patient Time: 15:26 Vital Signs Vital signs: Vital Signs - 8 hr 06/10/22 18:19 06/10/22 16:15 06/10/22 16:15 Temperature 98.1 F Pulse Rate 104 H Respiratory Rate 17 Blood Pressure 114/69 Pulse Oximetry 100 06/10/22 16:20 06/10/22 16:20 06/10/22 16:25 Temperature Pulse Rate 104 H 105 H Respiratory Rate 17 16 Blood Pressure 117/71 Pulse Oximetry 100 100 06/10/22 16:25 06/10/22 16:30 06/10/22 16:30 Temperature Pulse Rate 103 H Respiratory Rate 16 Blood Pressure 115/68 115/67 Pulse Oximetry 100 06/10/22 16:35 06/10/22 16:35 06/10/22 16:40 Temperature Pulse Rate 103 H 104 H Respiratory Rate 21 13 Blood Pressure 115/67 Pulse Oximetry 100 100 06/10/22 16:40 06/10/22 16:45 06/10/22 16:45 Temperature Pulse Rate 103 H Respiratory Rate 14 Blood Pressure 117/71 121/70 Pulse Oximetry 100 06/10/22 16:50 06/10/22 16:50 06/10/22 16:55 Temperature Pulse Rate 103 H 104 H Respiratory Rate 17 16 Blood Pressure 126/72 Pulse Oximetry 100 100 06/10/22 16:55 06/10/22 17:00 06/10/22 17:00 Temperature Pulse Rate 108 H Respiratory Rate 20 Blood Pressure 116/67 118/67 Pulse Oximetry 100 06/10/22 17:05 06/10/22 17:05 06/10/22 17:10 Temperature Pulse Rate 104 H 106 H Respiratory Rate 19 24 Blood Pressure 124/73 Pulse Oximetry 100 100 06/10/22 17:10 06/10/22 17:15 06/10/22 17:15 Temperature Pulse Rate 104 H Respiratory Rate 18 Blood Pressure 124/70 122/69 Pulse Oximetry 100 06/10/22 17:20 06/10/22 17:20 06/10/22 17:25 Temperature Pulse Rate 107 H Respiratory Rate 23 Blood Pressure 120/72 110/68 Pulse Oximetry 100 06/10/22 17:25 06/10/22 17:30 06/10/22 17:30 Temperature Pulse Rate 107 H 106 H Respiratory Rate 21 18 Blood Pressure 115/64 Pulse Oximetry 100 100 06/10/22 17:35 06/10/22 17:35 06/10/22 17:40 Temperature Pulse Rate 105 H Respiratory Rate 22 Blood Pressure 111/66 113/67 Pulse Oximetry 100 06/10/22 17:40 06/10/22 17:45 06/10/22 17:45 Temperature Pulse Rate 104 H 103 H Respiratory Rate 17 19 Blood Pressure 110/66 Pulse Oximetry 100 100 06/10/22 17:50 06/10/22 17:50 06/10/22 17:55 Temperature Pulse Rate 103 H 103 H Respiratory Rate 20 15 Blood Pressure 105/61 Pulse Oximetry 100 100 06/10/22 17:55 06/10/22 18:00 06/10/22 18:00 Temperature Pulse Rate 102 H Respiratory Rate 20 Blood Pressure 113/66 113/65 Pulse Oximetry 100 06/10/22 18:05 06/10/22 18:05 06/10/22 18:10 Temperature Pulse Rate 102 H Respiratory Rate 15 Blood Pressure 115/68 116/67 Pulse Oximetry 100 06/10/22 18:10 06/10/22 18:15 06/10/22 18:15 Temperature Pulse Rate 103 H 104 H Respiratory Rate 17 17 Blood Pressure 115/65 Pulse Oximetry 100 100 MDM - Fall <Amada Savage, DO - Last Filed: 06/10/22 23:30> Lab Data Result diagrams: 06/10/22 13:13 06/10/22 13:13 Labs: Lab Results 06/10/22 06/10/22 06/10/22 Range/Units 01:15 01:15 01:15 WBC 22.3 H (4.5-11.0) X10^3/uL RBC 4.16 (4.0-5.2) X10^6/uL Hgb 10.2 L (12.0-16.0) g/dL Hct 32.5 L (36-46) % MCV 78.1 L (80-100) fL MCH 24.5 L (26-34) PG MCHC 31.3 (30-36) % RDW 20.9 H (11.6-14.8) % Plt Count 948 H* (150-400) X10^3/uL Neut % (Auto) 79.6 H (50-75) % Lymph % (Auto) 18.0 L (25-40) % [place] % (Auto) 1.9 L (3-14) % Eos % (Auto) 0.1 L (2-4) % Baso % (Auto) 0.4 (0-2) % Neut # (Auto) 04145 H (6926-7467) /uL Lymph # (Auto) 4000 (2749-0689) /uL [place] # (Auto) 400 (0-900) /uL Eos # (Auto) 0 (0-450) /uL Baso # (Auto) 100 (0-100) /uL Platelet Estimate Increased on smear RBC Morphology See below Hypochromasia Poikilocytosis 1+ H Anisocytosis 2+ H Microcytosis Sodium 136 L (137-145) mmol/L Potassium 4.0 (3.4-5.1) mmol/L Chloride 105 (98-107) mmol/L Carbon Dioxide 16 L (22-32) mmol/L BUN 14 (7-17) mg/dL Creatinine 1.01 (0.52-1.04) mg/dL Estimated GFR > 60 (>60) mL/min BUN/Creatinine Ratio 13.9 (6-22) Glucose 205 H (70-100) mg/dL Lactate (0.7-2.1) mmol/L Calcium 6.9 L (8.4-10.2) mg/dL Magnesium 2.0 (1.6-2.3) mg/dL Total Bilirubin 0.5 (0.2-1.3) mg/dL AST 140 H (14-36) IU/L ALT 67 H (<35) IU/L Alkaline Phosphatase 184 H (38-126) U/L Total Creatine Kinase 23 L (30-135) U/L CK-MB (CK-2) TNP CK-MB (CK-2) Rel Index TNP Troponin I < 0.012 (0.01-0.034) ng/mL Total Protein 5.6 L (6.3-8.2) g/dL Albumin 2.4 L (3.5-5.0) g/dL Globulin 3.2 (1.7-4.1) g/dL Albumin/Globulin Ratio 0.8 L (1.0-2.8) Lipase < 10 L (23-300) U/L Urine Color Urine Appearance Urine pH (4.5-8.0) Ur Specific [place] (1.000-1.035) Urine Protein (Negative) Urine Glucose (UA) (Negative) g/dL Urine Ketones (NEGATIVE) Urine Occult Blood (Negative) Urine Nitrate (Negative) Urine Bilirubin (NEGATIVE) Urine Urobilinogen (0.2) E.U./dL Ur Leukocyte Esterase (NEGATIVE) Urine RBC (0-5/HPF) Urine WBC (0-5/HPF) Amorphous Sediment Urine Bacteria (None) Granular Casts (None) Ur Culture Indicated? Ketones 2.19 H (<0.27) mmol/L SARS-CoV-2 (PCR) (Negative) 06/10/22 06/10/22 06/10/22 Range/Units 03:55 05:30 08:50 WBC (4.5-11.0) X10^3/uL RBC (4.0-5.2) X10^6/uL Hgb (12.0-16.0) g/dL Hct (36-46) % MCV (80-100) fL MCH (26-34) PG MCHC (30-36) % RDW (11.6-14.8) % Plt Count (150-400) X10^3/uL Neut % (Auto) (50-75) % Lymph % (Auto) (25-40) % [place] % (Auto) (3-14) % Eos % (Auto) (2-4) % Baso % (Auto) (0-2) % Neut # (Auto) (1837-1907) /uL Lymph # (Auto) (0603-7184) /uL [place] # (Auto) (0-900) /uL Eos # (Auto) (0-450) /uL Baso # (Auto) (0-100) /uL Platelet Estimate RBC Morphology Hypochromasia Poikilocytosis Anisocytosis Microcytosis Sodium 138 (137-145) mmol/L Potassium 3.9 (3.4-5.1) mmol/L Chloride 109 H (98-107) mmol/L Carbon Dioxide 15 L (22-32) mmol/L BUN 14 (7-17) mg/dL Creatinine 0.91 (0.52-1.04) mg/dL Estimated GFR > 60 (>60) mL/min BUN/Creatinine Ratio 15.4 (6-22) Glucose 180 H (70-100) mg/dL Lactate 1.1 (0.7-2.1) mmol/L Calcium 6.6 L (8.4-10.2) mg/dL Magnesium (1.6-2.3) mg/dL Total Bilirubin (0.2-1.3) mg/dL AST (14-36) IU/L ALT (<35) IU/L Alkaline Phosphatase (38-126) U/L Total Creatine Kinase (30-135) U/L CK-MB (CK-2) CK-MB (CK-2) Rel Index Troponin I (0.01-0.034) ng/mL Total Protein (6.3-8.2) g/dL Albumin (3.5-5.0) g/dL Globulin (1.7-4.1) g/dL Albumin/Globulin Ratio (1.0-2.8) Lipase (23-300) U/L Urine Color Urine Appearance Urine pH (4.5-8.0) Ur Specific [place] (1.000-1.035) Urine Protein (Negative) Urine Glucose (UA) (Negative) g/dL Urine Ketones (NEGATIVE) Urine Occult Blood (Negative) Urine Nitrate (Negative) Urine Bilirubin (NEGATIVE) Urine Urobilinogen (0.2) E.U./dL Ur Leukocyte Esterase (NEGATIVE) Urine RBC (0-5/HPF) Urine WBC (0-5/HPF) Amorphous Sediment Urine Bacteria (None) Granular Casts (None) Ur Culture Indicated? Ketones (<0.27) mmol/L SARS-CoV-2 (PCR) Negative (Negative) 06/10/22 06/10/22 06/10/22 Range/Units 09:07 13:13 13:13 WBC 21.5 H (4.5-11.0) X10^3/uL RBC 3.34 L (4.0-5.2) X10^6/uL Hgb 8.3 L (12.0-16.0) g/dL Hct 25.9 L (36-46) % MCV 77.5 L (80-100) fL MCH 24.7 L (26-34) PG MCHC 31.8 (30-36) % RDW 20.5 H (11.6-14.8) % Plt Count 878 H (150-400) X10^3/uL Neut % (Auto) 87.1 H (50-75) % Lymph % (Auto) 8.4 L (25-40) % [place] % (Auto) 3.7 (3-14) % Eos % (Auto) 0.4 L (2-4) % Baso % (Auto) 0.4 (0-2) % Neut # (Auto) 85726 H (4660-3971) /uL Lymph # (Auto) 1800 (2007-6751) /uL [place] # (Auto) 800 (0-900) /uL Eos # (Auto) 100 (0-450) /uL Baso # (Auto) 100 (0-100) /uL Platelet Estimate Increased on smear RBC Morphology See below Hypochromasia 1+ H Poikilocytosis 1+ H Anisocytosis 2+ H Microcytosis 1+ H Sodium 134 L (137-145) mmol/L Potassium 3.7 (3.4-5.1) mmol/L Chloride 111 H (98-107) mmol/L Carbon Dioxide 15 L (22-32) mmol/L BUN 13 (7-17) mg/dL Creatinine 0.78 (0.52-1.04) mg/dL Estimated GFR > 60 (>60) mL/min BUN/Creatinine Ratio 16.7 (6-22) Glucose 105 H (70-100) mg/dL Lactate (0.7-2.1) mmol/L Calcium 6.2 L* (8.4-10.2) mg/dL Magnesium (1.6-2.3) mg/dL Total Bilirubin (0.2-1.3) mg/dL AST (14-36) IU/L ALT (<35) IU/L Alkaline Phosphatase (38-126) U/L Total Creatine Kinase (30-135) U/L CK-MB (CK-2) CK-MB (CK-2) Rel Index Troponin I (0.01-0.034) ng/mL Total Protein (6.3-8.2) g/dL Albumin (3.5-5.0) g/dL Globulin (1.7-4.1) g/dL Albumin/Globulin Ratio (1.0-2.8) Lipase (23-300) U/L Urine Color Yellow Urine Appearance Cloudy Urine pH 7.5 (4.5-8.0) Ur Specific [place] 1.010 (1.000-1.035) Urine Protein 1+ H (Negative) Urine Glucose (UA) Trace H (Negative) g/dL Urine Ketones Trace H (NEGATIVE) Urine Occult Blood 3+ H (Negative) Urine Nitrate Negative (Negative) Urine Bilirubin Negative (NEGATIVE) Urine Urobilinogen 0.2 (0.2) E.U./dL Ur Leukocyte Esterase 1+ H (NEGATIVE) Urine RBC 10-30/hpf H (0-5/HPF) Urine WBC 5-10/hpf H (0-5/HPF) Amorphous Sediment 1+ Urine Bacteria Moderate (10-30) H (None) Granular Casts 1-5/lpf (None) Ur Culture Indicated? Specimen cultured Ketones (<0.27) mmol/L SARS-CoV-2 (PCR) (Negative) Point of Care Testing Glucose POC [address] scan - head: Radiologist's Impression: Preliminary report no acute intracranial abnormality. Remote right frontal parietal infarcts CT - cervical spine: Radiologist's Impression: Preliminary report no acute traumatic injury is identified CT lumbar: Radiologist's Impression: No acute injury within the lumbar spine. Intermediate mild X 0 5 headache isodense structure posterior right kidney. Mass versus lobulation within the differential follow-up ultrasound. 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 Chronic degenerative disease resulting in mild central canal stenosis L4-L5 MDM Narrative Medical decision making narrative: Patient is known to have a DKA a she was just admitted here recently. She has been nauseous throughout the day and has vomited numerous times. In fact vomit from a bowl when she fell spilled all over her. Her glucose is not significantly elevated but is in the 200s. Bicarb is 16. Anion gap 15, repeat blood work in and drink gap show worsening bicarb of 15 and anion gap of 11. Patient signed out to Dr. Cao for further management Appropriate for transfer ICU, no beds available here. Patient has central line. Zosyn antibiotic has been started for urosepsis. Vasopressor Levophed has been started. <Jhonny Cao MD - Last Filed: 06/11/22 07:03> Differential Diagnosis Differential diagnosis: Likely other (Hypotension/sepsis/DKA) Lab Data Labs: Lab Results 06/10/22 06/10/22 06/10/22 Range/Units 01:15 01:15 01:15 WBC 22.3 H (4.5-11.0) X10^3/uL RBC 4.16 (4.0-5.2) X10^6/uL Hgb 10.2 L (12.0-16.0) g/dL Hct 32.5 L (36-46) % MCV 78.1 L (80-100) fL MCH 24.5 L (26-34) PG MCHC 31.3 (30-36) % RDW 20.9 H (11.6-14.8) % Plt Count 948 H* (150-400) X10^3/uL Neut % (Auto) 79.6 H (50-75) % Lymph % (Auto) 18.0 L (25-40) % [place] % (Auto) 1.9 L (3-14) % Eos % (Auto) 0.1 L (2-4) % Baso % (Auto) 0.4 (0-2) % Neut # (Auto) 38987 H (8022-4823) /uL Lymph # (Auto) 4000 (5045-2299) /uL [place] # (Auto) 400 (0-900) /uL Eos # (Auto) 0 (0-450) /uL Baso # (Auto) 100 (0-100) /uL Platelet Estimate Increased on smear RBC Morphology See below Hypochromasia Poikilocytosis 1+ H Anisocytosis 2+ H Microcytosis Sodium 136 L (137-145) mmol/L Potassium 4.0 (3.4-5.1) mmol/L Chloride 105 (98-107) mmol/L Carbon Dioxide 16 L (22-32) mmol/L BUN 14 (7-17) mg/dL Creatinine 1.01 (0.52-1.04) mg/dL Estimated GFR > 60 (>60) mL/min BUN/Creatinine Ratio 13.9 (6-22) Glucose 205 H (70-100) mg/dL Lactate (0.7-2.1) mmol/L Calcium 6.9 L (8.4-10.2) mg/dL Magnesium 2.0 (1.6-2.3) mg/dL Total Bilirubin 0.5 (0.2-1.3) mg/dL AST 140 H (14-36) IU/L ALT 67 H (<35) IU/L Alkaline Phosphatase 184 H (38-126) U/L Total Creatine Kinase 23 L (30-135) U/L CK-MB (CK-2) TNP CK-MB (CK-2) Rel Index TNP Troponin I < 0.012 (0.01-0.034) ng/mL Total Protein 5.6 L (6.3-8.2) g/dL Albumin 2.4 L (3.5-5.0) g/dL Globulin 3.2 (1.7-4.1) g/dL Albumin/Globulin Ratio 0.8 L (1.0-2.8) Lipase < 10 L (23-300) U/L Urine Color Urine Appearance Urine pH (4.5-8.0) Ur Specific [place] (1.000-1.035) Urine Protein (Negative) Urine Glucose (UA) (Negative) g/dL Urine Ketones (NEGATIVE) Urine Occult Blood (Negative) Urine Nitrate (Negative) Urine Bilirubin (NEGATIVE) Urine Urobilinogen (0.2) E.U./dL Ur Leukocyte Esterase (NEGATIVE) Urine RBC (0-5/HPF) Urine WBC (0-5/HPF) Amorphous Sediment Urine Bacteria (None) Granular Casts (None) Ur Culture Indicated? Ketones 2.19 H (<0.27) mmol/L SARS-CoV-2 (PCR) (Negative) 06/10/22 06/10/22 06/10/22 Range/Units 03:55 05:30 08:50 WBC (4.5-11.0) X10^3/uL RBC (4.0-5.2) X10^6/uL Hgb (12.0-16.0) g/dL Hct (36-46) % MCV (80-100) fL MCH (26-34) PG MCHC (30-36) % RDW (11.6-14.8) % Plt Count (150-400) X10^3/uL Neut % (Auto) (50-75) % Lymph % (Auto) (25-40) % [place] % (Auto) (3-14) % Eos % (Auto) (2-4) % Baso % (Auto) (0-2) % Neut # (Auto) (5995-9648) /uL Lymph # (Auto) (5176-7981) /uL [place] # (Auto) (0-900) /uL Eos # (Auto) (0-450) /uL Baso # (Auto) (0-100) /uL Platelet Estimate RBC Morphology Hypochromasia Poikilocytosis Anisocytosis Microcytosis Sodium 138 (137-145) mmol/L Potassium 3.9 (3.4-5.1) mmol/L Chloride 109 H (98-107) mmol/L Carbon Dioxide 15 L (22-32) mmol/L BUN 14 (7-17) mg/dL Creatinine 0.91 (0.52-1.04) mg/dL Estimated GFR > 60 (>60) mL/min BUN/Creatinine Ratio 15.4 (6-22) Glucose 180 H (70-100) mg/dL Lactate 1.1 (0.7-2.1) mmol/L Calcium 6.6 L (8.4-10.2) mg/dL Magnesium (1.6-2.3) mg/dL Total Bilirubin (0.2-1.3) mg/dL AST (14-36) IU/L ALT (<35) IU/L Alkaline Phosphatase (38-126) U/L Total Creatine Kinase (30-135) U/L CK-MB (CK-2) CK-MB (CK-2) Rel Index Troponin I (0.01-0.034) ng/mL Total Protein (6.3-8.2) g/dL Albumin (3.5-5.0) g/dL Globulin (1.7-4.1) g/dL Albumin/Globulin Ratio (1.0-2.8) Lipase (23-300) U/L Urine Color Urine Appearance Urine pH (4.5-8.0) Ur Specific [place] (1.000-1.035) Urine Protein (Negative) Urine Glucose (UA) (Negative) g/dL Urine Ketones (NEGATIVE) Urine Occult Blood (Negative) Urine Nitrate (Negative) Urine Bilirubin (NEGATIVE) Urine Urobilinogen (0.2) E.U./dL Ur Leukocyte Esterase (NEGATIVE) Urine RBC (0-5/HPF) Urine WBC (0-5/HPF) Amorphous Sediment Urine Bacteria (None) Granular Casts (None) Ur Culture Indicated? Ketones (<0.27) mmol/L SARS-CoV-2 (PCR) Negative (Negative) 06/10/22 06/10/22 06/10/22 Range/Units 09:07 13:13 13:13 WBC 21.5 H (4.5-11.0) X10^3/uL RBC 3.34 L (4.0-5.2) X10^6/uL Hgb 8.3 L (12.0-16.0) g/dL Hct 25.9 L (36-46) % MCV 77.5 L (80-100) fL MCH 24.7 L (26-34) PG MCHC 31.8 (30-36) % RDW 20.5 H (11.6-14.8) % Plt Count 878 H (150-400) X10^3/uL Neut % (Auto) 87.1 H (50-75) % Lymph % (Auto) 8.4 L (25-40) % [place] % (Auto) 3.7 (3-14) % Eos % (Auto) 0.4 L (2-4) % Baso % (Auto) 0.4 (0-2) % Neut # (Auto) 02726 H (7093-8854) /uL Lymph # (Auto) 1800 (2796-9857) /uL [place] # (Auto) 800 (0-900) /uL Eos # (Auto) 100 (0-450) /uL Baso # (Auto) 100 (0-100) /uL Platelet Estimate Increased on smear RBC Morphology See below Hypochromasia 1+ H Poikilocytosis 1+ H Anisocytosis 2+ H Microcytosis 1+ H Sodium 134 L (137-145) mmol/L Potassium 3.7 (3.4-5.1) mmol/L Chloride 111 H (98-107) mmol/L Carbon Dioxide 15 L (22-32) mmol/L BUN 13 (7-17) mg/dL Creatinine 0.78 (0.52-1.04) mg/dL Estimated GFR > 60 (>60) mL/min BUN/Creatinine Ratio 16.7 (6-22) Glucose 105 H (70-100) mg/dL Lactate (0.7-2.1) mmol/L Calcium 6.2 L* (8.4-10.2) mg/dL Magnesium (1.6-2.3) mg/dL Total Bilirubin (0.2-1.3) mg/dL AST (14-36) IU/L ALT (<35) IU/L Alkaline Phosphatase (38-126) U/L Total Creatine Kinase (30-135) U/L CK-MB (CK-2) CK-MB (CK-2) Rel Index Troponin I (0.01-0.034) ng/mL Total Protein (6.3-8.2) g/dL Albumin (3.5-5.0) g/dL Globulin (1.7-4.1) g/dL Albumin/Globulin Ratio (1.0-2.8) Lipase (23-300) U/L Urine Color Yellow Urine Appearance Cloudy Urine pH 7.5 (4.5-8.0) Ur Specific [place] 1.010 (1.000-1.035) Urine Protein 1+ H (Negative) Urine Glucose (UA) Trace H (Negative) g/dL Urine Ketones Trace H (NEGATIVE) Urine Occult Blood 3+ H (Negative) Urine Nitrate Negative (Negative) Urine Bilirubin Negative (NEGATIVE) Urine Urobilinogen 0.2 (0.2) E.U./dL Ur Leukocyte Esterase 1+ H (NEGATIVE) Urine RBC 10-30/hpf H (0-5/HPF) Urine WBC 5-10/hpf H (0-5/HPF) Amorphous Sediment 1+ Urine Bacteria Moderate (10-30) H (None) Granular Casts 1-5/lpf (None) Ur Culture Indicated? Specimen cultured Ketones (<0.27) mmol/L SARS-CoV-2 (PCR) (Negative) Point of Care Testing Glucose POC 105 Imaging Data Chest x-ray: Radiologist's Impression: [address] [address] XRay Report Signed Patient: Valerie Garnica I MR#: [id number] : 1975 Acct:[id number] Age/Sex: 46 / F Date of Service: 06/10/22 Loc: ED Accession Number: [id number] ?? Procedure: XR chest 1V Ordering Provider: Jhonny Cao MD PROCEDURE:? XR CHEST 1V ? INDICATIONS:? IJ PLACEMENT ? TECHNIQUE:? One view of the chest was acquired.? ? COMPARISON:? [facility], CR, XR CHEST 1V, 06/10/2022, 1:09. ? FINDINGS:? ? Surgical changes and devices:? Left IJ catheter is well positioned. ? Lungs and pleura:? Interstitial air space opacities appear increased. ? Mediastinum:? Mediastinal contours appear normal.? Heart size is normal.? ? Bones and chest wall:? No suspicious bony lesions.? Overlying soft tissues appear unremarkable.? ? IMPRESSION:? 1. Left IJ catheter is well positioned.? 2. Increased interstitial airspace opacities.? This could be due to positioning versus mild CHF.? ? ? Dictated by: Edson Mccarthy M.D. on 06/10/2022 at 8:36 ? ? Approved by: Edson Mccarthy M.D. on 06/10/2022 at 8:38 ? ECG Data Interpretation: Sinus tachycardia rate 115 MDM Narrative Medical decision making narrative: Patient is known to have a DKA a she was just admitted here recently. She has been nauseous throughout the day and has vomited numerous times. In fact vomit from a bowl when she fell spilled all over her. Her glucose is not significantly elevated but is in the 200s. Bicarb is 16. Anion gap 15, repeat blood work in and drink gap show worsening bicarb of 15 and anion gap of 11. Appropriate for transfer ICU, no beds available here. Patient has central line. Zosyn antibiotic has been started for urosepsis. Vasopressor Levophed has been started. <Jhonny Cao MD - Last Filed: 06/11/22 07:03> Critical Care Time Attestation: Critical Care Time 35 minutes: Critical care time is separate from other billable procedures. This critical care time includes consultation with family and other consulting doctors, review of records, and interpretation of data from labs, EKGs, imaging, etc. Discharge Plan Departure Patient Disposition: [facility] Clinical Impression: Sepsis, UTI (urinary tract infection) Prescriptions: No Action insulin aspart U-100 [Novolog Flexpen U-100 Insulin] 100 unit/mL Insulin Pen 0 unit Sub-Q AC Qty: 3 0RF Rx Instructions: 1-3 UNITS TID buspirone 10 mg Tablet 2 tab PO TID cyclobenzaprine 10 mg Tablet 10 mg PO TID PRN (Reason: pain) insulin glargine 100 unit/mL (3 mL) insulin pen 10 unit SUBCUT DAILY Qty: 0 0RF Eliquis 5 mg Tablet 5 mg PO BID gabapentin 400 mg Capsule 800 mg PO QID midodrine 5 mg Tablet 10 mg PO TID Qty: 90 0RF ferrous sulfate 325 mg (65 mg iron) tablet 325 mg PO DAILY Qty: 30 0RF Suprax 200 mg tablet,chewable 200 mg PO Q12H Qty: 14 0RF ascorbic acid (vitamin C) [Vitamin C] 500 mg capsule, extended release 500 mg PO DAILY Qty: 30 0RF ondansetron HCl 4 mg tablet 4 mg PO TID Label Comments: TAKE 1 TABLET BY MOUTH THREE TIMES DAILY Creon 24,000-76,000 -120,000 unit Capsule,Delayed Release(Dr/Ec) See Rx Instructions .ROUTE .COMPLEX Rx Instructions: patient says they take 800un TID, 2400un total acetaminophen 325 mg Tablet 650 mg PO Q6HR PRN (Reason: Headache) Qty: 60 0RF melatonin 3 mg Tablet 3 mg PO BEDTIME Qty: 30 0RF pseudoephedrine HCl 30 mg Tablet 30 mg PO Q6HR PRN (Reason: Congestion/ sinus headache) Qty: 30 0RF loratadine 10 mg Tablet 10 mg PO DAILY Qty: 30 0RF Referrals: Jhonny Evans PA-C [Primary Care Provider] -
[2022-06-10] MEDS: SODIUM CHLORIDE 0.9% 1,000 ML 1000 ML IV ×2 (03:25→05:00)
[2022-06-10] MEDS: HYDROMORPHONE 0.5 MG INJ IV (03:25)
[2022-06-10 03:49] LABS: Ketones (Beta-Hydroxybutyrate) 2.19 mmol/L (<0.27)
[2022-06-10 04:17] LABS: Lactate (Lactic Acid) 1.1 mmol/L (0.7-2.1)
[2022-06-10] MEDS: HYDROMORPHONE 1 MG INJ IV (04:39)
[2022-06-10] MEDS: ONDANSETRON 4 MG/2 ML INJ IV ×2 (05:37→16:40)
[2022-06-10 06:11] LABS: BUN Creatinine Ratio 15.4 (6-22); Blood Urea Nitrogen 14 mg/dL (7-17); Carbon Dioxide 15 mmol/L (22-32); Chloride 109 mmol/L (98-107); Estimated Glomerular Filt Rate > 60 mL/min (>60); Glucose 180 mg/dL (70-100); HEMOLYSIS < 15 (0-50); Potassium 3.9 mmol/L (3.4-5.1); Sodium 138 mmol/L (137-145)
[2022-06-10 06:21] LABS: Calcium 6.6 mg/dL (8.4-10.2)
[2022-06-10] MEDS: DEXTROSE 5%-0.45NS W/KCL 20MEQ 1,000 ML 100 MEQ IV (07:24)
[2022-06-10] MEDS: MIDAZOLAM 5 MG/ML VIAL (07:48)
[2022-06-10] MEDS: MIDAZOLAM 2 MG/2 ML VIAL 5 MG IV (07:55)
--- NOTE | 2022-06-10 08:03 | PC.NURSE ---
Assisting Anesthesia with central line placement. Pt medicated per verbal order from MD. Pt tolerated procedure well.
[2022-06-10] MEDS: MIDAZOLAM 2 MG/2 ML VIAL 1 MG IV (08:05)
--- NOTE | 2022-06-10 08:26 | DI.RAD.S_ITS ---
PROCEDURE: XR CHEST 1V INDICATIONS: IJ PLACEMENT TECHNIQUE: One view of the chest was acquired. COMPARISON: [facility], CR, XR CHEST 1V, 06/10/2022, 1:09. FINDINGS: Surgical changes and devices: Left IJ catheter is well positioned. Lungs and pleura: Interstitial air space opacities appear increased. Mediastinum: Mediastinal contours appear normal. Heart size is normal. Bones and chest wall: No suspicious bony lesions. Overlying soft tissues appear unremarkable. IMPRESSION: 1. Left IJ catheter is well positioned. 2. Increased interstitial airspace opacities. This could be due to positioning versus mild CHF. Dictated by: Edson Mccarthy M.D. on 06/10/2022 at 8:36 Approved by: Edson Mccarthy M.D. on 06/10/2022 at 8:38
[2022-06-10] MEDS: INSULIN REGULAR, HUMAN 100 UNIT in SODIUM CHLORIDE 0.9% 100 ML 6 UNIT IV (08:35)
[2022-06-10] MEDS: MORPHINE 4 MG/ML INJ 2 MG IV (08:51)
[2022-06-10 09:16] LABS: COVID19 -Nasal RAPID Negative (Negative)
--- NOTE | 2022-06-10 09:25 | PM.PROC.1 ---
Procedures Date/Time Date of procedure: 06/10/22 Time of procedure: 08:00 Central Line Placement Time out performed: Yes Patient placed on monitor/pulse ox: Yes MD prep: mask, gown, gloves and other (cap) Central line prep: Chlorhexidine scrub and sterile drapes applied Local anesthesia used: lidocaine 1% Amount of anesthesia used (ml): 3 Ultrasound used for placement: Yes Central line lumen inserted: triple Post procedure: sutured in place, good blood return, all ports aspirated, flushed, capped and sterile dressing applied Post procedure x-ray: tip of catheter in good position and no pneumothorax seen Patient tolerated procedure: well and no complications Complications: none
[2022-06-10] MEDS: SODIUM CHLORIDE 0.9% 500 ML IV (09:42)
[2022-06-10] MEDS: DEXTROSE 50 % IN WATER 25 GM/50 ML SYRINGE IV (10:51)
[2022-06-10] MEDS: SODIUM CHLORIDE 0.9% 500 ML 1000 ML IV (11:59)
[2022-06-10 13:36] LABS: BUN Creatinine Ratio 16.7 (6-22); Blood Urea Nitrogen 13 mg/dL (7-17); Carbon Dioxide 15 mmol/L (22-32); Chloride 111 mmol/L (98-107); Estimated Glomerular Filt Rate > 60 mL/min (>60); Glucose 105 mg/dL (70-100); HEMOLYSIS < 15 (0-50); Potassium 3.7 mmol/L (3.4-5.1); Sodium 134 mmol/L (137-145)
[2022-06-10 13:37] LABS: Calcium 6.2 mg/dL (8.4-10.2)
[2022-06-10 13:38] LABS: Basophils Absolute Auto 100 /uL (0-100); Basophils Percent Auto 0.4 % (0-2); Eosinophils Absolute Auto 100 /uL (0-450); Eosinophils Percent Auto 0.4 % (2-4); Hematocrit 25.9 % (36-46); Hemoglobin 8.3 g/dL (12.0-16.0); Lymphocytes Absolute Auto 1800 /uL (1100-4500); Lymphocytes Percent Auto 8.4 % (25-40); Mean Corpuscular HGB Conc 31.8 % (30-36); Mean Corpuscular Hemoglobin 24.7 PG (26-34); Mean Corpuscular Volume 77.5 fL (80-100); Monocytes Absolute Auto 800 /uL (0-900); Monocytes Percent Auto 3.7 % (3-14); Neutrophils Absolute Auto 18700 /uL (1500-7000); Neutrophils Percent Auto 87.1 % (50-75); Platelet Count 878 X10^3/uL (150-400); Red Blood Cell Count 3.34 X10^6/uL (4.0-5.2); Red Cell Distribution Width 20.5 % (11.6-14.8); White Blood Cell Count 21.5 X10^3/uL (4.5-11.0)
[2022-06-10 13:39] LABS: Add Manual Diff / Slide Review SLIDE REVIEW
[2022-06-10] MEDS: PIPERACILLIN/TAZO 4.5 GM in SODIUM CHLORIDE 0.9% 100 ML IV (13:42)
[2022-06-10] MEDS: ACETAMINOPHEN 325 MG TABLET 650 MG PO (13:46)
[2022-06-10 14:12] LABS: Anisocytosis 2+
[2022-06-10 14:13] LABS: Hypochromasia 1+; Microcytosis 1+
[2022-06-10 14:14] LABS: Platelet Estimate Increased on smear; Poikilocytosis 1+
[2022-06-10 15:06] LABS: Appearance Urine UA CLOUDY; Bilirubin Urine UA NEGATIVE (NEGATIVE); Color Urine UA YELLOW; Glucose Urine UA TRACE g/dL (Negative); Ketones Urine UA TRACE (NEGATIVE); Leukocyte Esterase Urine UA 1+ (NEGATIVE); Nitrite Urine UA NEGATIVE (Negative); Occult Blood Urine UA 3+ (Negative); Protein Urine UA 1+ (Negative); Urobilinogen Urine UA 0.2 E.U./dL (0.2)
[2022-06-10 15:13] LABS: pH Urine UA 7.5 (4.5-8.0)
[2022-06-10 15:16] LABS: Amorphous Sediment Urine 1+; Bacteria Urine Moderate (10-30); RBC Urine 10-30/HPF (0-5/HPF); WBC Urine 5-10/HPF (0-5/HPF)
[2022-06-10 15:17] LABS: Culture Indicated Urine Specimen Cultured; Granular Casts Urine 1-5/LPF
[2022-06-10] MEDS: NOREPINEPHRINE BITARTRATE/D5W 4 MG/250 ML PLAST..BAG 30 MG IV (15:20)
[2022-06-10] MEDS: CALCIUM GLUCONATE 9.3 MEQ in SODIUM CHLORIDE 0.9% 50 ML 140 MEQ IV (16:27)
[2022-06-10] MEDS: MORPHINE 2 MG/ML INJ IV (16:40)
== END 2022-06-10 19:28 | disposition short-term general hospital (02) ==
PROVIDERS: Emergency Medicine; Emergency Provider Emergency Medicine; PCP Physician Assistant
DX: N39.0 Urinary tract infection, site not specified (principal); A41.89 Other specified sepsis; E10.65 Type 1 diabetes mellitus with hyperglycemia; R11.2 Nausea with vomiting, unspecified; I95.9 Hypotension, unspecified; M54.2 Cervicalgia; W19.XXXA Unspecified fall, initial encounter; Z20.822 Contact with and (suspected) exposure to COVID-19
CPT/HCPCS: 36415; 51798; 70450; 71045; 72125; 72131; 80048; 80053; 81001; 82009; 82550; 82962; 83605; 83690; 83735; 84484; 85025; 87040; 87086; 87635; 93005; 93010; 96361; 96365; 96366; 96367; 96375; 96376; 99285; 99291; 99292; C9803; J0610; J1170; J2250; J2270; J2405; J2543

== ENCOUNTER 2022-06-17 16:07 | Emergency (ER) | payer MEDICAID, OTHER, SELFPAY ==
[2022-05-31 18:02] VITALS: BMI 19.5
[2022-06-17] VITALS (12 sets, daily range): BP systolic 87–110; BP diastolic 55–70; PULSE 94–108; RESP 20; TEMP 36.5; O2SAT 100; BMI 18.0
[2022-06-17 16:46] LABS: Add Manual Diff / Slide Review NO; Basophils Absolute Auto 100 /uL (0-100); Basophils Percent Auto 1.4 % (0-2); Eosinophils Absolute Auto 100 /uL (0-450); Eosinophils Percent Auto 1.2 % (2-4); Hematocrit 33.6 % (36-46); Hemoglobin 10.8 g/dL (12.0-16.0); Lymphocytes Absolute Auto 2100 /uL (1100-4500); Lymphocytes Percent Auto 19.4 % (25-40); Mean Corpuscular HGB Conc 32.3 % (30-36); Mean Corpuscular Hemoglobin 26.2 PG (26-34); Mean Corpuscular Volume 81.3 fL (80-100); Monocytes Absolute Auto 500 /uL (0-900); Monocytes Percent Auto 4.4 % (3-14); Neutrophils Absolute Auto 8100 /uL (1500-7000); Neutrophils Percent Auto 73.6 % (50-75); Platelet Count 748 X10^3/uL (150-400); Red Blood Cell Count 4.13 X10^6/uL (4.0-5.2); Red Cell Distribution Width 22.3 % (11.6-14.8)
[2022-06-17 17:01] LABS: Alanine Aminotransferase 86 IU/L (<35); Albumin 3.1 g/dL (3.5-5.0); Albumin Globulin Ratio 0.8 (1.0-2.8); Alkaline Phosphatase 178 U/L (38-126); Aspartate Aminotransferase 577 IU/L (14-36); BUN Creatinine Ratio 9.8 (6-22); Bilirubin Total 0.5 mg/dL (0.2-1.3); Blood Urea Nitrogen 8 mg/dL (7-17); Calcium 8.1 mg/dL (8.4-10.2); Carbon Dioxide 17 mmol/L (22-32); Chloride 108 mmol/L (98-107); Estimated Glomerular Filt Rate > 60 mL/min (>60); Globulin 3.8 g/dL (1.7-4.1); Glucose 244 mg/dL (70-100); HEMOLYSIS < 15 (0-50); Potassium 3.7 mmol/L (3.4-5.1); Sodium 138 mmol/L (137-145); Total Protein 6.9 g/dL (6.3-8.2)
[2022-06-17 17:12] LABS: Anisocytosis 2+; Poikilocytosis 2+; Schistocytes 1+
[2022-06-17 17:13] LABS: Target Cells 1+
[2022-06-17] MEDS: SODIUM CHLORIDE 0.9% 1,000 ML 1000 ML IV (17:30)
[2022-06-17] MEDS: OXYCODONE/ACETAMINOPHEN 5/325 TABLET 1 TAB PO (18:27)
[2022-06-17 18:33] LABS: INR 1.1 (0.9-1.3); Prothrombin Time 13.1 SECONDS (10.1-12.7)
--- NOTE | 2022-06-17 19:51 | ED.GIBLEED ---
HPI - GI Bleed <Macario Salvador PA-C - Last Filed: 06/17/22 20:25> General Chief complaint: GI Bleed Stated complaint: Blood in stool Time Seen by Provider: 06/17/22 16:10 Source: patient Mode of arrival: Ambulatory History of Present Illness HPI Narrative: Patient is 46-year-old female who presents to the emergency room today with complaint blood in her stool since last night. States she was seen at [facility] about 2 days ago where she was diagnosed with a cyst on her kidney. States that during her stay she had blood in her stools that resulted in her receiving 1 unit of blood. States she called [facility] did talk to her doctor there and he told her to report to the emergency room. Describe some blood in her stool as being dark maroon-colored blood and clot at the bottom of stool after she had a bowel movement. States that the blood that she had during her stay at [facility] was fresh blood is supposed to this blood being dark and bone. Has also has periodically abdominal pain low back pain headache and pain in her left lower quadrant. States that now she is on Eliquis for chronic. Denies any liver disease nosebleed vomiting heavy menses oral iron ingestion or eating any red dyed foods. Also states she did not have a rectal exam done at [facility] objectively. He cannot recall the last time he had a rectal exam done. Denies any other concerns Related Data Home Medications Medication Instructions Recorded Confirmed buspirone 10 mg tablet 2 tab PO TID 12/08/18 05/31/22 cyclobenzaprine 10 mg tablet 10 mg PO TID PRN pain 12/08/18 05/31/22 [id number] See Rx Instructions .Route .COMPLEX 02/14/22 05/31/22 24,000-76,000-120,000 unit capsule,delayed rel (Creon) ondansetron HCl 4 mg tablet 4 mg PO TID 02/14/22 05/31/22 apixaban 5 mg tablet (Eliquis) 5 mg PO BID 05/31/22 05/31/22 gabapentin 400 mg capsule 800 mg PO QID 05/31/22 05/31/22 Previous Rx's Medication Instructions Recorded insulin aspart U-100 100 unit/mL 0 unit (0 mL) SUBCUT AC #3 units 05/27/18 (3 mL) subcutaneous pen (Novolog Flexpen U-100 Insulin aspart) insulin glargine 100 unit/mL (3 10 unit (0.1 mL) SUBCUT DAILY #0 mL 12/09/21 mL) subcutaneous pen acetaminophen 325 mg tablet 650 mg PO Q6HR PRN Headache #60 02/19/22 tabs loratadine 10 mg tablet 10 mg PO DAILY #30 tabs 02/19/22 melatonin 3 mg tablet 3 mg PO BEDTIME #30 tabs 02/19/22 pseudoephedrine HCl 30 mg tablet 30 mg PO Q6HR PRN Congestion/ 02/19/22 sinus headache #30 tabs ascorbic acid (vitamin C) 500 mg 500 mg PO DAILY #30 caps 06/06/22 capsule,extended release (Vitamin C) cefixime 200 mg chewable tablet 200 mg PO Q12H #14 tabs 06/06/22 (Suprax) ferrous sulfate 325 mg (65 mg 325 mg PO DAILY #30 tabs 06/06/22 iron) tablet midodrine 5 mg tablet 10 mg PO TID #90 tabs 06/06/22 Allergies Allergy/AdvReac Type Severity Reaction Status Date / Time amitriptyline Allergy Intermediate Verified 06/17/22 16:16 sulfasalazine [SULFASALAZINE] Allergy Mild PANCREATITI Verified 06/17/22 16:16 S trazodone AdvReac Intermediate HEART Verified 06/17/22 16:16 PALPITATIONS Review of Systems <Macario Salvador PA-C - Last Filed: 06/17/22 20:25> Review of Systems Narrative: R.O.S.: General: No fever, chills or fatigue. Cardiovascular: No chest pain or palpitations Respiratory: No S.O.B. HEENT: No congestion, ear pain, rhinorrhea, sore throat or tinnitus Gastrointestinal: Has blood in stool this morning after a bowel movement : No urinary concerns Skin: No rash or associated abnormalities Musculoskeletal: No pain in muscles or joints, no limitation of range of motion, no paresthesia or numbness. ?? Neurological: Awake, alert and in not apparent distress. No Headaches, changes in vision or other related neurological concerns. Patient History <Macario Salvador PA-C - Last Filed: 06/17/22 20:25> Medical History (Updated 06/17/22 @ 19:59 by Macario Salvador PA-C) Acute CVA (cerebrovascular accident) Alcohol intoxication Chronic atrial fibrillation with RVR Closed hip fracture COVID DKA (diabetic ketoacidoses) DKA (diabetic ketoacidosis) Fibromyalgia Gastroesophageal reflux disease Insulin dependent diabetes mellitus Lupus Osteoporosis Surgical History History of hip surgery Presence of pancreatic duct stent Family History Mother Diabetes mellitus Congestive heart failure Pancreatic cancer Father Diabetes mellitus Brother Diabetes mellitus Pancreatitis Sister Drug overdose Social History household members: family Smoking Status: Current every day smoker alcohol intake: never Smoking Status: Current every day smoker alcohol intake frequency: holidays/special occasions only Substance Use Type: does not use Exam <Macario Salvador PA-C - Last Filed: 06/17/22 20:25> Narrative Exam Narrative: Physical Exam: ? General: normal appearance, well developed, well nourished, alert, and awake. Not in acute distress. ? Head: Normocephalic, no lesions. Chest: Lungs CTAB, no rales, rhonchi or wheezes. ?? Heart: RRR, no murmurs, rubs or gallops. Eyes: PERRLA, EOM's full, conjunctivae clear. ? Neuro: Physiological, no localizing findings, CN3-12 intact. ?? Extremities: Warm, well perfused, FROM, no deformities, no edema. ?? Skin: Normal, no rashes, no lesions noted. ?? PSYCHIATRIC: The mood is good, no blunted affect. Speech is clear. Thought process is linear, thought content is appropriate. The voice is without significant inflection. Gastrointestinal: Soft; NT; ND; Pos BS with Neg. rebound tenderness. No scars or major deformities noted on Visual Inspection. Rectal: Patient has abrased dried erythematous dermis surrounding the entire rectal area. The area has a wound like appearance that is resolving. There is no active at this time but the area does have the appearance recently bleeding or the potential to bleed the procedure.Guaiac collected and patient had no active discovered during GLEN. Initial Vital Signs Initial Vital Signs: Vital Signs Temperature 97.7 F 06/17/22 16:13 Pulse Rate 108 H 06/17/22 16:13 Respiratory Rate 20 06/17/22 16:13 Blood Pressure 93/57 L 06/17/22 16:13 Pulse Oximetry 100 06/17/22 16:13 Oxygen Delivery Method 06/17/22 16:13 <Stephane Borden DO - Last Filed: 06/17/22 23:45> Initial Vital Signs Initial Vital Signs: Vital Signs Temperature 97.7 F 06/17/22 16:13 Pulse Rate 108 H 06/17/22 16:13 Respiratory Rate 20 06/17/22 16:13 Blood Pressure 93/57 L 06/17/22 16:13 Pulse Oximetry 100 06/17/22 16:13 Oxygen Delivery Method 06/17/22 16:13 <Patel Mendes DO - Last Filed: 06/18/22 22:35> Initial Vital Signs Initial Vital Signs: Vital Signs Temperature 97.7 F 06/17/22 16:13 Pulse Rate 108 H 06/17/22 16:13 Respiratory Rate 20 06/17/22 16:13 Blood Pressure 93/57 L 06/17/22 16:13 Pulse Oximetry 100 06/17/22 16:13 Oxygen Delivery Method 06/17/22 16:13 Course <Macario Salvador PA-C - Last Filed: 06/17/22 20:25> Orders Ordered: Discontinued Medications Sodium Chloride (Normal Saline 0.9%) 1,000 mls @ 1,000 mls/hr IV BOLUS ONE Stop: 06/17/22 17:46 Last Infusion: 06/17/22 20:41 Dose: 0 mls/hr Documented By: Admin: 06/17/22 17:30 Dose: 1,000 mls/hr Documented By: ARCHIE Oxycodone/Acetaminophen (Oxycodone/Acetaminophen 5/325 Tablet) 1 tab PO NOW ONE Stop: 06/17/22 18:23 Last Admin: 06/17/22 18:27 Dose: 1 tab Documented By: ARCHIE Vital Signs Vital signs: Vital Signs - 8 hr 06/17/22 16:13 06/17/22 16:39 06/17/22 16:40 Temperature 97.7 F Pulse Rate 108 H 97 H Respiratory Rate 20 Blood Pressure 93/57 L 87/55 L Pulse Oximetry 100 100 Oxygen Delivery Method Room Air 06/17/22 16:40 06/17/22 16:45 06/17/22 16:45 Temperature Pulse Rate 97 H 97 H Respiratory Rate Blood Pressure 91/58 L Pulse Oximetry 100 100 Oxygen Delivery Method 06/17/22 17:00 06/17/22 17:00 06/17/22 17:30 Temperature Pulse Rate 100 H Respiratory Rate Blood Pressure 92/64 97/62 Pulse Oximetry 100 Oxygen Delivery Method 06/17/22 17:30 06/17/22 18:00 06/17/22 18:30 Temperature Pulse Rate 97 H 95 H 95 H Respiratory Rate Blood Pressure 101/70 104/63 Pulse Oximetry 100 100 100 Oxygen Delivery Method Room Air Room Air 06/17/22 19:00 06/17/22 19:30 06/17/22 19:30 Temperature Pulse Rate 95 H 94 H Respiratory Rate 20 Blood Pressure 105/66 105/66 Pulse Oximetry 100 100 Oxygen Delivery Method Room Air 06/17/22 20:00 06/17/22 20:00 06/17/22 20:30 Temperature Pulse Rate 98 H Respiratory Rate Blood Pressure 110/68 108/68 Pulse Oximetry 100 Oxygen Delivery Method 06/17/22 20:30 Temperature Pulse Rate 95 H Respiratory Rate Blood Pressure Pulse Oximetry 100 Oxygen Delivery Method <Stephane Borden, - Last Filed: 06/17/22 23:45> Orders Ordered: Discontinued Medications Sodium Chloride (Normal Saline 0.9%) 1,000 mls @ 1,000 mls/hr IV BOLUS ONE Stop: 06/17/22 17:46 Last Infusion: 06/17/22 20:41 Dose: 0 mls/hr Documented By: Admin: 06/17/22 17:30 Dose: 1,000 mls/hr Documented By: ARCHIE Oxycodone/Acetaminophen (Oxycodone/Acetaminophen 5/325 Tablet) 1 tab PO NOW ONE Stop: 06/17/22 18:23 Last Admin: 06/17/22 18:27 Dose: 1 tab Documented By: ARCHIE Vital Signs Vital signs: Vital Signs - 8 hr 06/17/22 16:13 06/17/22 16:39 06/17/22 16:40 Temperature 97.7 F Pulse Rate 108 H 97 H Respiratory Rate 20 Blood Pressure 93/57 L 87/55 L Pulse Oximetry 100 100 Oxygen Delivery Method Room Air 06/17/22 16:40 06/17/22 16:45 06/17/22 16:45 Temperature Pulse Rate 97 H 97 H Respiratory Rate Blood Pressure 91/58 L Pulse Oximetry 100 100 Oxygen Delivery Method 06/17/22 17:00 06/17/22 17:00 06/17/22 17:30 Temperature Pulse Rate 100 H Respiratory Rate Blood Pressure 92/64 97/62 Pulse Oximetry 100 Oxygen Delivery Method 06/17/22 17:30 06/17/22 18:00 06/17/22 18:30 Temperature Pulse Rate 97 H 95 H 95 H Respiratory Rate Blood Pressure 101/70 104/63 Pulse Oximetry 100 100 100 Oxygen Delivery Method Room Air Room Air 06/17/22 19:00 06/17/22 19:30 06/17/22 19:30 Temperature Pulse Rate 95 H 94 H Respiratory Rate 20 Blood Pressure 105/66 105/66 Pulse Oximetry 100 100 Oxygen Delivery Method Room Air 06/17/22 20:00 06/17/22 20:00 06/17/22 20:30 Temperature Pulse Rate 98 H Respiratory Rate Blood Pressure 110/68 108/68 Pulse Oximetry 100 Oxygen Delivery Method 06/17/22 20:30 Temperature Pulse Rate 95 H Respiratory Rate Blood Pressure Pulse Oximetry 100 Oxygen Delivery Method <Patel Mendes DO - Last Filed: 06/18/22 22:35> Orders Ordered: Discontinued Medications Sodium Chloride (Normal Saline 0.9%) 1,000 mls @ 1,000 mls/hr IV BOLUS ONE Stop: 06/17/22 17:46 Last Infusion: 06/17/22 20:41 Dose: 0 mls/hr Documented By: Admin: 06/17/22 17:30 Dose: 1,000 mls/hr Documented By: ARCHIE Oxycodone/Acetaminophen (Oxycodone/Acetaminophen 5/325 Tablet) 1 tab PO NOW ONE Stop: 06/17/22 18:23 Last Admin: 06/17/22 18:27 Dose: 1 tab Documented By: ARCHIE Vital Signs Vital signs: Vital Signs - 8 hr 06/17/22 16:13 06/17/22 16:39 06/17/22 16:40 Temperature 97.7 F Pulse Rate 108 H 97 H Respiratory Rate 20 Blood Pressure 93/57 L 87/55 L Pulse Oximetry 100 100 Oxygen Delivery Method Room Air 06/17/22 16:40 06/17/22 16:45 06/17/22 16:45 Temperature Pulse Rate 97 H 97 H Respiratory Rate Blood Pressure 91/58 L Pulse Oximetry 100 100 Oxygen Delivery Method 06/17/22 17:00 06/17/22 17:00 06/17/22 17:30 Temperature Pulse Rate 100 H Respiratory Rate Blood Pressure 92/64 97/62 Pulse Oximetry 100 Oxygen Delivery Method 06/17/22 17:30 06/17/22 18:00 06/17/22 18:30 Temperature Pulse Rate 97 H 95 H 95 H Respiratory Rate Blood Pressure 101/70 104/63 Pulse Oximetry 100 100 100 Oxygen Delivery Method Room Air Room Air 06/17/22 19:00 06/17/22 19:30 06/17/22 19:30 Temperature Pulse Rate 95 H 94 H Respiratory Rate 20 Blood Pressure 105/66 105/66 Pulse Oximetry 100 100 Oxygen Delivery Method Room Air 06/17/22 20:00 06/17/22 20:00 06/17/22 20:30 Temperature Pulse Rate 98 H Respiratory Rate Blood Pressure 110/68 108/68 Pulse Oximetry 100 Oxygen Delivery Method 06/17/22 20:30 Temperature Pulse Rate 95 H Respiratory Rate Blood Pressure Pulse Oximetry 100 Oxygen Delivery Method MDM - GI Bleed <Macario Salvador PA-C - Last Filed: 06/17/22 20:25> Lab Data Result diagrams: 06/17/22 16:30 06/17/22 16:30 Labs: Lab Results 06/17/22 06/17/22 06/17/22 Range/Units 16:30 16:30 16:30 WBC 11.0 (4.5-11.0) X10^3/uL RBC 4.13 (4.0-5.2) X10^6/uL Hgb 10.8 L (12.0-16.0) g/dL Hct 33.6 L (36-46) % MCV 81.3 D (80-100) fL MCH 26.2 (26-34) PG MCHC 32.3 (30-36) % RDW 22.3 H (11.6-14.8) % Plt Count 748 H (150-400) X10^3/uL Neut % (Auto) 73.6 (50-75) % Lymph % (Auto) 19.4 L (25-40) % [place] % (Auto) 4.4 (3-14) % Eos % (Auto) 1.2 L (2-4) % Baso % (Auto) 1.4 (0-2) % Neut # (Auto) 8100 H (8302-7189) /uL Lymph # (Auto) 2100 (4553-3097) /uL [place] # (Auto) 500 (0-900) /uL Eos # (Auto) 100 (0-450) /uL Baso # (Auto) 100 (0-100) /uL RBC Morphology See below Poikilocytosis 2+ H Anisocytosis 2+ H Target Cells 1+ H Schistocytes 1+ H PT 13.1 H (10.1-12.7) SECONDS INR 1.1 (0.9-1.3) Sodium 138 (137-145) mmol/L Potassium 3.7 (3.4-5.1) mmol/L Chloride 108 H (98-107) mmol/L Carbon Dioxide 17 L (22-32) mmol/L BUN 8 (7-17) mg/dL Creatinine 0.82 (0.52-1.04) mg/dL Estimated GFR > 60 (>60) mL/min BUN/Creatinine Ratio 9.8 (6-22) Glucose 244 H D (70-100) mg/dL Calcium 8.1 L (8.4-10.2) mg/dL Total Bilirubin 0.5 (0.2-1.3) mg/dL AST 577 H (14-36) IU/L ALT 86 H (<35) IU/L Alkaline Phosphatase 178 H (38-126) U/L Total Protein 6.9 (6.3-8.2) g/dL Albumin 3.1 L (3.5-5.0) g/dL Globulin 3.8 (1.7-4.1) g/dL Albumin/Globulin Ratio 0.8 L (1.0-2.8) ECG Data Interpretation: Normal sinus rhythm no grossly abnormal left bundle branch block ST elevation/depression or T-wave abnormalities. MDM Narrative Medical decision making narrative: Patient is a 46-year-old female presents to the emergency room today with complaint blood in her stool she does snore. Also admits to being seen at [facility] but 2 days ago but she also had blood in her stool. States that she received 1 unit of blood at that time. Patient has vague complaints of pain and no active disease or disorder to explain upper lower GI bleed at this time. Labs ordered by and also did not reveal a grossly anemic appearance without any more urgent emergent concerns at this time. Labs everyday reveal an excessively elevated AST total. Rectal exam was done and revealed wound like appearance to the rectal area could be a source of the bleed. Plan is to discharge the patient home and refer patient to have gastrointestinal is specialist. Provider also advised patient to use Vaseline in the area to prevent over dryness and tearing of the abrasions. <Stephane Borden, DO - Last Filed: 06/17/22 23:45> Lab Data Labs: Lab Results 06/17/22 06/17/22 06/17/22 Range/Units 16:30 16:30 16:30 WBC 11.0 (4.5-11.0) X10^3/uL RBC 4.13 (4.0-5.2) X10^6/uL Hgb 10.8 L (12.0-16.0) g/dL Hct 33.6 L (36-46) % MCV 81.3 D (80-100) fL MCH 26.2 (26-34) PG MCHC 32.3 (30-36) % RDW 22.3 H (11.6-14.8) % Plt Count 748 H (150-400) X10^3/uL Neut % (Auto) 73.6 (50-75) % Lymph % (Auto) 19.4 L (25-40) % [place] % (Auto) 4.4 (3-14) % Eos % (Auto) 1.2 L (2-4) % Baso % (Auto) 1.4 (0-2) % Neut # (Auto) 8100 H (5518-0581) /uL Lymph # (Auto) 2100 (5588-6773) /uL [place] # (Auto) 500 (0-900) /uL Eos # (Auto) 100 (0-450) /uL Baso # (Auto) 100 (0-100) /uL RBC Morphology See below Poikilocytosis 2+ H Anisocytosis 2+ H Target Cells 1+ H Schistocytes 1+ H PT 13.1 H (10.1-12.7) SECONDS INR 1.1 (0.9-1.3) Sodium 138 (137-145) mmol/L Potassium 3.7 (3.4-5.1) mmol/L Chloride 108 H (98-107) mmol/L Carbon Dioxide 17 L (22-32) mmol/L BUN 8 (7-17) mg/dL Creatinine 0.82 (0.52-1.04) mg/dL Estimated GFR > 60 (>60) mL/min BUN/Creatinine Ratio 9.8 (6-22) Glucose 244 H D (70-100) mg/dL Calcium 8.1 L (8.4-10.2) mg/dL Total Bilirubin 0.5 (0.2-1.3) mg/dL AST 577 H (14-36) IU/L ALT 86 H (<35) IU/L Alkaline Phosphatase 178 H (38-126) U/L Total Protein 6.9 (6.3-8.2) g/dL Albumin 3.1 L (3.5-5.0) g/dL Globulin 3.8 (1.7-4.1) g/dL Albumin/Globulin Ratio 0.8 L (1.0-2.8) <Patel Mendes, DO - Last Filed: 06/18/22 22:35> Lab Data Labs: Lab Results 06/17/22 06/17/22 06/17/22 Range/Units 16:30 16:30 16:30 WBC 11.0 (4.5-11.0) X10^3/uL RBC 4.13 (4.0-5.2) X10^6/uL Hgb 10.8 L (12.0-16.0) g/dL Hct 33.6 L (36-46) % MCV 81.3 D (80-100) fL MCH 26.2 (26-34) PG MCHC 32.3 (30-36) % RDW 22.3 H (11.6-14.8) % Plt Count 748 H (150-400) X10^3/uL Neut % (Auto) 73.6 (50-75) % Lymph % (Auto) 19.4 L (25-40) % [place] % (Auto) 4.4 (3-14) % Eos % (Auto) 1.2 L (2-4) % Baso % (Auto) 1.4 (0-2) % Neut # (Auto) 8100 H (7273-3770) /uL Lymph # (Auto) 2100 (3921-1799) /uL [place] # (Auto) 500 (0-900) /uL Eos # (Auto) 100 (0-450) /uL Baso # (Auto) 100 (0-100) /uL RBC Morphology See below Poikilocytosis 2+ H Anisocytosis 2+ H Target Cells 1+ H Schistocytes 1+ H PT 13.1 H (10.1-12.7) SECONDS INR 1.1 (0.9-1.3) Sodium 138 (137-145) mmol/L Potassium 3.7 (3.4-5.1) mmol/L Chloride 108 H (98-107) mmol/L Carbon Dioxide 17 L (22-32) mmol/L BUN 8 (7-17) mg/dL Creatinine 0.82 (0.52-1.04) mg/dL Estimated GFR > 60 (>60) mL/min BUN/Creatinine Ratio 9.8 (6-22) Glucose 244 H D (70-100) mg/dL Calcium 8.1 L (8.4-10.2) mg/dL Total Bilirubin 0.5 (0.2-1.3) mg/dL AST 577 H (14-36) IU/L ALT 86 H (<35) IU/L Alkaline Phosphatase 178 H (38-126) U/L Total Protein 6.9 (6.3-8.2) g/dL Albumin 3.1 L (3.5-5.0) g/dL Globulin 3.8 (1.7-4.1) g/dL Albumin/Globulin Ratio 0.8 L (1.0-2.8) Discharge Plan Departure Patient Disposition: Home Clinical Impression: Blood in the stool Instructions: DI for Rectal Bleeding Activity Restrictions/Additional Instructions: *You have been diagnosed with blood in your stool. This was a bleed not she will be notified but likely be caused by abrasions that were discovered in your rectal area. I suggest she follow with her primary care provider with regards to your kidney abscess and her elevated liver enzymes. I refer you to [facility] patient follow-up with them to be referred to a gastrointestinal specialist in regard to see if blood in stool and rectal abrasions. A provider there is and their phone number is . Also suggested return to the emergency room if any emergent concerns arise. [ ] *What to do: *Please continue to take your regular medications as directed. [ ] New medication prescriptions sent to your pharmacy: [ ] [ ] New medication written as a paper prescription [x] No new medications given *Please follow up with your primary care provider in 2-3 days, call for an appointment. Let them know you were seen in the Emergency Department and that we ask that you be seen in follow up. We will electronically transmit a record of today's note if your PCP is in our system *If you do not have a primary care provider please contact the [facility] Resource line at [phone]. They will ask some questions about your medical history and help get you set up with a doctor in the community. *Return to Emergency Department if you should have any new, worsening or concerning symptoms, such as [fever greater than 101 F, shaking chills, worsening pain, persistent vomiting or other bothersome symptoms] Prescriptions: No Action insulin aspart U-100 [Novolog Flexpen U-100 Insulin] 100 unit/mL Insulin Pen 0 unit Sub-Q AC Qty: 3 0RF Rx Instructions: 1-3 UNITS TID buspirone 10 mg Tablet 2 tab PO TID cyclobenzaprine 10 mg Tablet 10 mg PO TID PRN (Reason: pain) insulin glargine 100 unit/mL (3 mL) insulin pen 10 unit SUBCUT DAILY Qty: 0 0RF Eliquis 5 mg Tablet 5 mg PO BID gabapentin 400 mg Capsule 800 mg PO QID midodrine 5 mg Tablet 10 mg PO TID Qty: 90 0RF ferrous sulfate 325 mg (65 mg iron) tablet 325 mg PO DAILY Qty: 30 0RF Suprax 200 mg tablet,chewable 200 mg PO Q12H Qty: 14 0RF ascorbic acid (vitamin C) [Vitamin C] 500 mg capsule, extended release 500 mg PO DAILY Qty: 30 0RF ondansetron HCl 4 mg tablet 4 mg PO TID Label Comments: TAKE 1 TABLET BY MOUTH THREE TIMES DAILY Creon 24,000-76,000 -120,000 unit Capsule,Delayed Release(Dr/Ec) See Rx Instructions .ROUTE .COMPLEX Rx Instructions: patient says they take 800un TID, 2400un total acetaminophen 325 mg Tablet 650 mg PO Q6HR PRN (Reason: Headache) Qty: 60 0RF melatonin 3 mg Tablet 3 mg PO BEDTIME Qty: 30 0RF pseudoephedrine HCl 30 mg Tablet 30 mg PO Q6HR PRN (Reason: Congestion/ sinus headache) Qty: 30 0RF loratadine 10 mg Tablet 10 mg PO DAILY Qty: 30 0RF Referrals: Jhonny Evans PA-C [Primary Care Provider] - Wesley Cooney MD [Non-Staff] - Visit Report Forms: Patient Portal/API <Stephane Borden DO - Last Filed: 06/17/22 23:45> [facility] ED Attending Luh Attestation: I was immediately available in the department for consultation. This documentation has been reviewed and I agree with assessment and plan. Supervised by Stephane Borden DO <Patel Mendes DO - Last Filed: 06/18/22 22:35> [facility] ED Attending Luh Attestation: I was immediately available in the department for consultation. This documentation has been reviewed and I agree with assessment and plan. Supervised by DO Dr Cinthya Mchugh Co-Sign Statement: I was available for consultation during this patient's emergency department visit. This chart is signed by myself for administrative purposes only. I did not have direct contact with this patient during this visit. They were seen independently by the APC.
--- NOTE | 2022-06-17 20:08 | PC.NURSE ---
During assessment by Modesto CLARKE, pt noted to have nonblanchable redness/purple between buttock folds. Pt reports bright red blood from area in the past, denies pain.
== END 2022-06-17 20:42 | disposition home or self-care (01) ==
PROVIDERS: Emergency Medicine; Emergency Provider Physician Assistant; PCP Physician Assistant
DX: K92.1 Melena (principal)
CPT/HCPCS: 36415; 80053; 85025; 85610; 93005; 99284

== ENCOUNTER 2022-06-23 11:59 | Inpatient (IN) | payer MEDICAID, OTHER, SELFPAY ==
[2022-05-31 18:02] VITALS: BMI 19.5
[2022-06-23] VITALS (53 sets, daily range): BP systolic 79–143; BP diastolic 50–89; PULSE 97–111; RESP 10–30; TEMP 36.4; O2SAT 95–100; BMI 18.0
--- NOTE | 2022-06-23 | DI.RAD.S_ITS ---
PROCEDURE: XR CHEST 1V INDICATIONS: CENTRAL LINE PLACEMENT TECHNIQUE: One view of the chest was acquired. COMPARISON: Located Within [facility], CR, XR CHEST 1V, 06/23/2022, 13:11. Located Within [facility], CR, XR CHEST 1V, 06/10/2022, 8:13. FINDINGS: Surgical changes and devices: Central line from right-sided approach extends into the lower aspect of the cardiac silhouette, to the right of midline. This therefore likely is approaching the insertion of the inferior vena cava into the right atrium. Lungs and pleura: Lungs are clear. No pleural effusions or pneumothorax. Mediastinum: Mediastinal contours appear normal. Heart size is normal. Bones and chest wall: No suspicious bony lesions. Overlying soft tissues appear unremarkable. IMPRESSION: Low positioning of the right internal jugular central line, extending almost to the inferior margin of the right atrium. No pneumothorax. Dictated by: Jose Walker M.D. on 06/23/2022 at 23:13 Approved by: Jose Walker M.D. on 06/23/2022 at 23:14
--- NOTE | 2022-06-23 12:23 | DI.RAD.S_ITS ---
PROCEDURE: XR CHEST 1V INDICATIONS: suspected sepsis TECHNIQUE: One view of the chest was acquired. COMPARISON: [facility], CR, XR CHEST 1V, 06/10/2022, 8:13. FINDINGS: Surgical changes and devices: None. Lungs and pleura: Lungs are clear. No pleural effusions or pneumothorax. Mediastinum: Mediastinal contours appear normal. Heart size is normal. Bones and chest wall: No suspicious bony lesions. Overlying soft tissues appear unremarkable. IMPRESSION: No acute cardiopulmonary pathology. Dictated by: Levy Condon M.D. on 06/23/2022 at 13:34 Approved by: Levy Condon M.D. on 06/23/2022 at 13:34
[2022-06-23] MEDS: SODIUM CHLORIDE 0.9% 1,000 ML 1000 ML IV ×3 (12:30→20:39)
--- NOTE | 2022-06-23 12:35 | PC.NURSE ---
lab called to draw labs, has 1 iv from [facility] but unable to obtain labs. 1215
[2022-06-23 13:11] LABS: Add Manual Diff / Slide Review NO; Basophils Absolute Auto 100 /uL (0-100); Basophils Percent Auto 0.7 % (0-2); Eosinophils Absolute Auto 200 /uL (0-450); Hemoglobin 9.6 g/dL (12.0-16.0); Lymphocytes Absolute Auto 2200 /uL (1100-4500); Lymphocytes Percent Auto 27.2 % (25-40); Mean Corpuscular HGB Conc 31.9 % (30-36); Mean Corpuscular Hemoglobin 26.3 PG (26-34); Mean Corpuscular Volume 82.5 fL (80-100); Monocytes Absolute Auto 400 /uL (0-900); Monocytes Percent Auto 5.4 % (3-14); Neutrophils Absolute Auto 5100 /uL (1500-7000); Neutrophils Percent Auto 64.7 % (50-75); Platelet Count 636 X10^3/uL (150-400); Red Blood Cell Count 3.63 X10^6/uL (4.0-5.2); Red Cell Distribution Width 22.5 % (11.6-14.8); White Blood Cell Count 7.9 X10^3/uL (4.5-11.0)
[2022-06-23 13:12] LABS: COVID19 -Nasal RAPID Negative (Negative)
[2022-06-23 13:16] LABS: Albumin 2.7 g/dL (3.5-5.0); Albumin Globulin Ratio 0.8 (1.0-2.8); Alkaline Phosphatase 187 U/L (38-126); Aspartate Aminotransferase 17 IU/L (14-36); BUN Creatinine Ratio 15.4 (6-22); Bilirubin Total 0.2 mg/dL (0.2-1.3); Blood Urea Nitrogen 10 mg/dL (7-17); Calcium 7.6 mg/dL (8.4-10.2); Carbon Dioxide 17 mmol/L (22-32); Chloride 114 mmol/L (98-107); Estimated Glomerular Filt Rate > 60 mL/min (>60); Globulin 3.2 g/dL (1.7-4.1); Glucose 228 mg/dL (70-100); HEMOLYSIS < 15 (0-50); Lipase < 10 U/L (23-300); Potassium 3.4 mmol/L (3.4-5.1); Sodium 139 mmol/L (137-145); Total Protein 5.9 g/dL (6.3-8.2)
[2022-06-23 13:17] LABS: Alanine Aminotransferase 19 IU/L (<35)
[2022-06-23 13:18] LABS: Lactate (Lactic Acid) 0.9 mmol/L (0.7-2.1)
--- NOTE | 2022-06-23 13:21 | ED_ITS ---
HPI - Weakness <Jay Marlow MD - Last Filed: 06/26/22 08:53> General Chief complaint: Weakness Stated complaint: Chest Pain, SOB Time Seen by Provider: 06/23/22 12:07 Source: patient and EMS Mode of arrival: Ambulatory Limitations: no limitations History of Present Illness HPI Narrative: The patient arrives by EMS after a fall at home last night. She became dizzy, she fell to the right side, landing on her right hip. There was no LOC. She has no head or neck injury. She has no back pain or upper extremity pain. She has persistent right hip pain, but she was up and ambulatory at home after the fall last night. She has no numbness or weakness in lower extremities. There w ere no other injuries. She was seen here last month after developing an abscess on her kidney, requiring transfer to [facility]. She was started on Eliquis. She returned with a GI bleed. She has no abdominal pain, no melena, no hematochezia. She has no weakness or dizziness at this moment. On recent visit here, she was in DKA, with pyelonephritis and sepsis. She required a central line and pressors. She denies fever chills. She denies acute illness. Related Data Home Medications Medication Instructions Recorded Confirmed buspirone 10 mg tablet 3 tab PO DAILY 12/08/18 06/24/22 cyclobenzaprine 10 mg tablet 10 mg PO TID PRN pain 12/08/18 06/24/22 [id number] See Rx Instructions .Route .COMPLEX 02/14/22 06/24/22 24,000-76,000-120,000 unit capsule,delayed rel (Creon) ondansetron HCl 4 mg tablet 4 mg PO TID PRN Nausea 02/14/22 06/24/22 gabapentin 400 mg capsule 800 mg PO QID 05/31/22 06/24/22 loratadine 10 mg tablet 10 mg PO DAILY PRN Allergy Symptoms 06/24/22 06/24/22 Previous Rx's Medication Instructions Recorded insulin aspart U-100 100 unit/mL 0 unit (0 mL) SUBCUT AC #3 units 02/12/18 (3 mL) subcutaneous pen (Novolog Flexpen U-100 Insulin aspart) insulin glargine 100 unit/mL (3 10 unit (0.1 mL) SUBCUT DAILY #0 mL 12/09/21 mL) subcutaneous pen acetaminophen 325 mg tablet 650 mg PO Q6HR PRN Headache #60 02/19/22 tabs melatonin 3 mg tablet 3 mg PO BEDTIME #30 tabs 02/19/22 pseudoephedrine HCl 30 mg tablet 30 mg PO Q6HR PRN Congestion/ 02/19/22 sinus headache #30 tabs ascorbic acid (vitamin C) 500 mg 500 mg PO DAILY #30 caps 06/06/22 capsule,extended release (Vitamin C) midodrine 5 mg tablet 10 mg PO TID #90 tabs 06/06/22 fentanyl 25 mcg/hr transdermal 1 patch transdermal Q72H #5 ea 06/24/22 patch lorazepam 2 mg/mL oral concentrate 1 mg (0.5 mL) PO Q1HR PRN Anxiety 06/24/22 (Lorazepam Intensol) #30 mL Allergies Allergy/AdvReac Type Severity Reaction Status Date / Time amitriptyline Allergy Intermediate Verified 06/17/22 16:16 sulfasalazine [SULFASALAZINE] Allergy Mild PANCREATITI Verified 06/17/22 16:16 S trazodone AdvReac Intermediate HEART Verified 06/17/22 16:16 PALPITATIONS Review of Systems <Jay Marlow MD - Last Filed: 06/26/22 08:53> Review of Systems ROS Unobtainable: All systems reviewed & are unremarkable except as noted in HPI and below Constitutional Constitutional: Reports fatigue, Denies fever(s), Denies frequent falls, Denies headache(s), Denies malaise and Denies night sweats Eyes Eyes: Denies blurry vision and Denies change in vision ENT Ears, Nose, Mouth, and Throat: Denies vertigo, Denies dizziness, Denies dry mouth, Denies headache(s) and Denies hoarseness Cardiovascular Cardiovascular: Denies chest pain, Denies syncope, Denies rapid heart rate, Denies pedal edema and Denies dyspnea on exertion Respiratory Respiratory: Denies chest congestion, Denies cough and Denies dyspnea on exertion Gastrointestinal Gastrointestinal: Denies abdominal pain, Denies change in bowel habits and Denies nausea Genitourinary Genitourinary: Denies dysuria Musculoskeletal Musculoskeletal: Denies arthralgias, Denies arthralgias and Denies joint swelling Integumentary/Breasts Skin/Breast: Denies rash Neurologic Neurologic: Denies confusion, Denies vertigo, Denies dizziness, Denies syncope, Denies frequent falls and Denies headache(s) Psychiatric Psychiatric: Denies anxiety, Denies confusion and Denies depression Endocrine Endocrine: Reports fatigue Hematologic/Lymphatic On Anticoagulants: Yes Patient History <Jay Marlow MD - Last Filed: 06/26/22 08:53> Medical History Acute CVA (cerebrovascular accident) Alcohol intoxication Chronic atrial fibrillation with RVR Closed hip fracture COVID DKA (diabetic ketoacidoses) DKA (diabetic ketoacidosis) Fibromyalgia Gastroesophageal reflux disease Insulin dependent diabetes mellitus Lupus Osteoporosis Surgical History History of hip surgery Presence of pancreatic duct stent Family History Mother Diabetes mellitus Congestive heart failure Pancreatic cancer Father Diabetes mellitus Brother Diabetes mellitus Pancreatitis Sister Drug overdose Social History household members: family Smoking Status: Current every day smoker alcohol intake: never Smoking Status: Current every day smoker alcohol intake frequency: holidays/special occasions only Substance Use Type: does not use Exam <Jay Marlow MD - Last Filed: 06/26/22 08:53> Initial Vital Signs Initial Vital Signs: Vital Signs Temperature 97.5 F L 06/23/22 11:50 Pulse Rate 105 H 06/23/22 11:50 Respiratory Rate 18 06/23/22 11:50 Blood Pressure 118/75 06/23/22 11:50 Pulse Oximetry 100 06/23/22 11:50 Oxygen Delivery Method 06/23/22 11:50 Const General: cooperative, comfortable, well developed, well groomed and No acute distress Nutritional Appearance: average body habitus [facility] Head: normal to inspection, normocephalic and atraumatic Face and sinus: normal facial exam Mouth: oral mucosae normal and moist mucous membranes Throat: posterior oropharynx normal Eyes General: Yes appearance normal, both eyes and all related structures Conjunctivae: conjunctivae normal EOM: EOM intact bilaterally Neck Neck: normal visual inspection and No tender Chest Chest: normal inspection of the chest Resp Effort & Inspection: normal respiratory effort Auscultation: clear to auscultation bilaterally Cardio Rate: regular rate Rhythm: regular rhythm Heart Sounds: S1 normal, S2 normal and no murmurs GI Inspection: normal to inspection Palpation: No mass and No tender Auscultation: normal bowel sounds Back/Spine/Pelvis Back: No back tenderness Skin General: no rashes or lesions noted Neuro General: patient alert, patient awake, patient oriented x3 and no focal motor deficits Speech: speech normal Motor: muscle tone normal throughout Extrem General: normal to inspection, full ROM, no pedal edema and no calf tenderness Other: Tenderness to the right hip. Full range of motion to the right hip without palpable deformity. No ecchymoses, or abrasions. Right lower extremities otherwise atraumatic. Psych Appearance: grossly normal <Amada Savage DO - Last Filed: 06/24/22 01:45> Initial Vital Signs Initial Vital Signs: Vital Signs Temperature 97.5 F L 06/23/22 11:50 Pulse Rate 105 H 06/23/22 11:50 Respiratory Rate 18 06/23/22 11:50 Blood Pressure 118/75 06/23/22 11:50 Pulse Oximetry 100 06/23/22 11:50 Oxygen Delivery Method 06/23/22 11:50 <Amada Savage DO - Last Filed: 06/24/22 01:45> Central Line Placement Right IJ: Patient Placed on Monitor/Pulse Ox: Yes MD Prep: mask, gown and gloves Central Line Prep: Chlorhexidine scrub and sterile drapes applied Local Anesthetic: lidocaine 1% Amount of anesthesia used (mL): 3 Ultrasound Used for Placement: Yes Central Line Lumen Inserted: triple Post Procedure: sutured in place, good blood return, all ports aspirated, flushed, capped and sterile dressing applied Post Procedure X-Ray: tip of catheter in good position and no pneumothorax seen Patient Tolerated Procedure: Well and No complications Course <Jay Marlow MD - Last Filed: 06/26/22 08:53> Course Course Narrative: The patient's x-ray of the right hip shows no fracture, no acute injuries. She is ambulatory. However, the recent she fell as suspicious. CBC is really stable, with a known history of recent GI bleeding. She has also been admitted with sepsis. She denies fever or chills, she does not feel like she is ill. Blood pressure a rest is 130s, heart rate 108. With postural vitals her blood pressure drops to 87 systolic with standing. She does not complain of weakness or dizziness. She has no fever, the WBC count was normal, lactic acid level is normal. Her blood pressure is not improved with 1 L normal saline. Labs suggest UTI. Blood cultures have been ordered, her last positive urine culture grew E coli that was pansensitive. Rocephin is ordered. Orders Ordered: Discontinued Medications Acetaminophen (Acetaminophen 325 Mg Tablet) 650 mg PO Q6HR PRN PRN Reason: Fever/Mild Pain (1-3) Last Admin: 06/24/22 05:06 Dose: 650 mg Documented By: GABI Hydrocodone Bitart/Acetaminophen (Hydrocodone/Acet 5/325 Tablet) 1 tab PO Q4HR PRN PRN Reason: Pain, Moderate (4-6) Last Admin: 06/24/22 10:30 Dose: 1 tab Documented By: Lipase/Protease/Amylase (Lipase/Protease/Amylase 02/03/24 Cap) 1 cap PO TIDWM [facility] Last Admin: 06/24/22 12:05 Dose: 1 cap Documented By: Admin: 06/24/22 08:14 Dose: 1 cap Documented By: MS Apixaban (Apixaban 5 Mg Tablet) 5 mg PO BID [facility] Last Admin: 06/24/22 08:15 Dose: 5 mg Documented By: Buspirone HCl (Buspirone 5 Mg Tablet) 30 mg PO DAILY [facility] Last Admin: 06/24/22 08:15 Dose: 30 mg Documented By: Dextrose (Dextrose 50 % In Water 25 Gm/50 Ml Syringe) 25 gm IV PRN PRN PRN Reason: Hypoglycemia Gabapentin (Gabapentin 400 Mg Capsule) 800 mg PO QID [facility] Last Admin: 06/24/22 13:15 Dose: 800 mg Documented By: Admin: 06/24/22 08:15 Dose: 800 mg Documented By: MS Sodium Chloride (Normal Saline 0.9%) 1,000 mls @ 1,000 mls/hr IV BOLUS ONE Stop: 06/23/22 13:22 Last Infusion: 06/23/22 13:52 Dose: 0 mls/hr Documented By: Admin: 06/23/22 12:30 Dose: 1,000 mls/hr Documented By: MICHAEL Sodium Chloride (Normal Saline 0.9%) 1,000 mls @ 1,000 mls/hr IV BOLUS ONE Stop: 06/23/22 18:09 Last Infusion: 06/23/22 18:50 Dose: 0 mls/hr Documented By: MICHAEL(2) Admin: 06/23/22 17:16 Dose: 1,000 mls/hr Documented By: AT Ceftriaxone Sodium 1,000 mg/ (Sodium Chloride) 100 mls @ 200 mls/hr IV NOW ONE Stop: 06/23/22 19:50 Last Infusion: 06/23/22 21:15 Dose: 0 mls/hr Documented By: Admin: 06/23/22 20:39 Dose: 200 mls/hr Documented By: AT Sodium Chloride (Normal Saline 0.9%) 1,000 mls @ 1,000 mls/hr IV BOLUS ONE Stop: 06/23/22 20:48 Last Infusion: 06/23/22 22:58 Dose: 0 mls/hr Documented By: Admin: 06/23/22 20:39 Dose: 1,000 mls/hr Documented By: AT Insulin Human Regular 100 unit (/ Sodium Chloride) 100 mls @ 6 mls/hr IV TITRATE JOSE ANTONIO; Protocol Last Admin: 06/23/22 20:44 Dose: Not Given Documented By: MICHAEL(2) Ceftriaxone Sodium 1,000 mg/ (Sodium Chloride) 100 mls @ 200 mls/hr IV Q24H JOSE ANTONIO Insulin Glargine (Insulin Glargine 100 Unit/Ml 3ml Pen) 10 unit SUBCUT DAILY JOSE ANTONIO Last Admin: 06/24/22 08:15 Dose: 10 unit Documented By: Co-signed By: JACQUIE Insulin Human Lispro (Insulin Lispro 100 Unit/Ml 3ml Vial) 0 unit SUBCUT ACHS JOSE ANTONIO; Protocol Last Admin: 06/24/22 12:05 Dose: 1 unit Documented By: Co-signed By: FELIX Admin: 06/24/22 07:52 Dose: 2 unit Documented By: Co-signed By: JACQUIE Ketorolac Tromethamine (Ketorolac 30 Mg/Ml Vial) 15 mg IV NOW ONE Stop: 06/23/22 17:58 Last Admin: 06/23/22 18:21 Dose: 15 mg Documented By: MICHAEL(2) Lorazepam (Lorazepam 2 Mg/Ml Oral Yelena) 1 mg PO Q1HR PRN PRN Reason: Anxiety Last Admin: 06/24/22 14:32 Dose: 1 mg Documented By: Admin: 06/24/22 13:15 Dose: 1 mg Documented By: Admin: 06/24/22 11:07 Dose: 1 mg Documented By: Magnesium Chloride (Magnesium Chloride 64 Mg Tablet) 128 mg PO NOW ONE Stop: 06/24/22 09:31 Last Admin: 06/24/22 09:42 Dose: 128 mg Documented By: Midodrine (Midodrine Hcl 5 Mg Tablet) 10 mg PO TID [facility] Last Admin: 06/24/22 08:14 Dose: 10 mg Documented By: Morphine Sulfate (Morphine 10 Mg/0.5 Ml Oral Syringe) 10 mg PO Q1H PRN PRN Reason: Pain/Dyspnea Last Admin: 06/24/22 14:33 Dose: 10 mg Documented By: Admin: 06/24/22 13:15 Dose: 10 mg Documented By: Admin: 06/24/22 11:06 Dose: 10 mg Documented By: Ondansetron HCl (Ondansetron 4 Mg/2 Ml Inj) 4 mg IV Q8HR PRN PRN Reason: Nausea And Vomiting Potassium Chloride (Potassium Chloride 20 Meq Tab) 40 meq PO Q6H [facility] Stop: 06/24/22 16:01 Last Admin: 06/24/22 15:18 Dose: 40 meq Documented By: Admin: 06/24/22 09:42 Dose: 40 meq Documented By: Tramadol HCl (Tramadol 50 Mg Tablet) 50 mg PO QID PRN PRN Reason: Pain, Moderate (4-6) Last Admin: 06/24/22 06:20 Dose: 50 mg Documented By: Admin: 06/24/22 01:28 Dose: 50 mg Documented By: GABI Vancomycin HCl (Vancomycin 125 Mg Capsule) 125 mg PO BID [facility] Last Admin: 06/24/22 08:15 Dose: 125 mg Documented By: Vital Signs Vital signs: Vital Signs - 8 hr 06/23/22 17:45 06/23/22 17:45 06/23/22 18:00 Pulse Rate 106 H Respiratory Rate 16 Blood Pressure 127/81 128/86 Pulse Oximetry 100 Oxygen Delivery Method 06/23/22 18:00 06/23/22 18:15 06/23/22 18:15 Pulse Rate 106 H 106 H Respiratory Rate 22 19 Blood Pressure 131/87 Pulse Oximetry 99 99 Oxygen Delivery Method Room Air 06/23/22 18:30 06/23/22 18:31 06/23/22 18:31 Pulse Rate 108 H 105 H Respiratory Rate 23 Blood Pressure 118/78 Pulse Oximetry 98 Oxygen Delivery Method Room Air 06/23/22 18:45 06/23/22 18:45 06/23/22 19:00 Pulse Rate 107 H Respiratory Rate 15 Blood Pressure 138/89 139/89 Pulse Oximetry 99 Oxygen Delivery Method 06/23/22 19:00 06/23/22 19:15 06/23/22 19:15 Pulse Rate 106 H 105 H Respiratory Rate 14 19 Blood Pressure 143/88 H Pulse Oximetry 99 99 Oxygen Delivery Method Room Air 06/23/22 19:30 06/23/22 19:30 06/23/22 19:32 Pulse Rate 103 H 103 H Respiratory Rate 17 15 Blood Pressure 138/87 Pulse Oximetry 98 99 Oxygen Delivery Method Room Air 06/23/22 19:32 06/23/22 19:34 06/23/22 19:34 Pulse Rate 104 H Respiratory Rate 15 Blood Pressure 132/83 105/67 Pulse Oximetry 99 Oxygen Delivery Method 06/23/22 19:35 06/23/22 19:35 06/23/22 19:45 Pulse Rate 104 H Respiratory Rate 16 Blood Pressure 83/51 L 138/84 Pulse Oximetry 98 Oxygen Delivery Method 06/23/22 19:45 06/23/22 20:00 06/23/22 20:30 Pulse Rate 104 H 103 H 104 H Respiratory Rate 15 13 16 Blood Pressure Pulse Oximetry 99 99 100 Oxygen Delivery Method Room Air Room Air 06/23/22 20:39 06/23/22 20:39 06/23/22 20:45 Pulse Rate 103 H Respiratory Rate 18 Blood Pressure 110/76 117/78 Pulse Oximetry 100 Oxygen Delivery Method 06/23/22 20:45 06/23/22 21:00 06/23/22 21:00 Pulse Rate 103 H 103 H Respiratory Rate 16 21 Blood Pressure 123/85 Pulse Oximetry 100 100 Oxygen Delivery Method Room Air 06/23/22 21:15 06/23/22 21:15 06/23/22 21:30 Pulse Rate 101 H Respiratory Rate 19 Blood Pressure 129/82 134/84 Pulse Oximetry 100 Oxygen Delivery Method 06/23/22 21:30 06/23/22 22:00 06/23/22 22:15 Pulse Rate 102 H 98 H 98 H Respiratory Rate 19 18 16 Blood Pressure Pulse Oximetry 99 100 100 Oxygen Delivery Method Room Air Room Air 06/23/22 22:15 06/23/22 22:30 06/23/22 22:30 Pulse Rate 97 H Respiratory Rate 14 Blood Pressure 111/71 115/74 Pulse Oximetry 100 Oxygen Delivery Method Room Air 06/23/22 22:45 06/23/22 22:45 06/23/22 23:00 Pulse Rate 100 H Respiratory Rate 14 Blood Pressure 124/74 119/76 Pulse Oximetry 100 Oxygen Delivery Method 06/23/22 23:00 06/23/22 23:15 06/23/22 23:15 Pulse Rate 102 H 104 H Respiratory Rate 17 Blood Pressure 129/82 Pulse Oximetry 100 99 Oxygen Delivery Method Room Air 06/23/22 23:30 06/23/22 23:30 Pulse Rate 102 H Respiratory Rate 19 Blood Pressure 121/76 Pulse Oximetry 99 Oxygen Delivery Method Room Air <Amada Savage, DO - Last Filed: 06/24/22 01:45> Orders Ordered: Discontinued Medications Acetaminophen (Acetaminophen 325 Mg Tablet) 650 mg PO Q6HR PRN PRN Reason: Fever/Mild Pain (1-3) Last Admin: 06/24/22 05:06 Dose: 650 mg Documented By: GABI Hydrocodone Bitart/Acetaminophen (Hydrocodone/Acet 5/325 Tablet) 1 tab PO Q4HR PRN PRN Reason: Pain, Moderate (4-6) Last Admin: 06/24/22 10:30 Dose: 1 tab Documented By: Lipase/Protease/Amylase (Lipase/Protease/Amylase 02/03/24 Cap) 1 cap PO TIDWM [facility] Last Admin: 06/24/22 12:05 Dose: 1 cap Documented By: Admin: 06/24/22 08:14 Dose: 1 cap Documented By: Apixaban (Apixaban 5 Mg Tablet) 5 mg PO BID [facility] Last Admin: 06/24/22 08:15 Dose: 5 mg Documented By: Buspirone HCl (Buspirone 5 Mg Tablet) 30 mg PO DAILY [facility] Last Admin: 06/24/22 08:15 Dose: 30 mg Documented By: Dextrose (Dextrose 50 % In Water 25 Gm/50 Ml Syringe) 25 gm IV PRN PRN PRN Reason: Hypoglycemia Gabapentin (Gabapentin 400 Mg Capsule) 800 mg PO QID JOSE ANTONIO Last Admin: 06/24/22 13:15 Dose: 800 mg Documented By: Admin: 06/24/22 08:15 Dose: 800 mg Documented By: Sodium Chloride (Normal Saline 0.9%) 1,000 mls @ 1,000 mls/hr IV BOLUS ONE Stop: 06/23/22 13:22 Last Infusion: 06/23/22 13:52 Dose: 0 mls/hr Documented By: Admin: 06/23/22 12:30 Dose: 1,000 mls/hr Documented By: MICHAEL Sodium Chloride (Normal Saline 0.9%) 1,000 mls @ 1,000 mls/hr IV BOLUS ONE Stop: 06/23/22 18:09 Last Infusion: 06/23/22 18:50 Dose: 0 mls/hr Documented By: MICHAEL(2) Admin: 06/23/22 17:16 Dose: 1,000 mls/hr Documented By: AT Ceftriaxone Sodium 1,000 mg/ (Sodium Chloride) 100 mls @ 200 mls/hr IV NOW ONE Stop: 06/23/22 19:50 Last Infusion: 06/23/22 21:15 Dose: 0 mls/hr Documented By: Admin: 06/23/22 20:39 Dose: 200 mls/hr Documented By: AT Sodium Chloride (Normal Saline 0.9%) 1,000 mls @ 1,000 mls/hr IV BOLUS ONE Stop: 06/23/22 20:48 Last Infusion: 06/23/22 22:58 Dose: 0 mls/hr Documented By: Admin: 06/23/22 20:39 Dose: 1,000 mls/hr Documented By: AT Insulin Human Regular 100 unit (/ Sodium Chloride) 100 mls @ 6 mls/hr IV TITRATE JOSE ANTONIO; Protocol Last Admin: 06/23/22 20:44 Dose: Not Given Documented By: MICHAEL(2) Ceftriaxone Sodium 1,000 mg/ (Sodium Chloride) 100 mls @ 200 mls/hr IV Q24H JOSE ANTONIO Insulin Glargine (Insulin Glargine 100 Unit/Ml 3ml Pen) 10 unit SUBCUT DAILY [facility] Last Admin: 06/24/22 08:15 Dose: 10 unit Documented By: Co-signed By: JACQUIE Insulin Human Lispro (Insulin Lispro 100 Unit/Ml 3ml Vial) 0 unit SUBCUT ACHS [facility]; Protocol Last Admin: 06/24/22 12:05 Dose: 1 unit Documented By: MS Co-signed By: JOSE DW Admin: 06/24/22 07:52 Dose: 2 unit Documented By: MS Co-signed By: JACQUIE Ketorolac Tromethamine (Ketorolac 30 Mg/Ml Vial) 15 mg IV NOW ONE Stop: 06/23/22 17:58 Last Admin: 06/23/22 18:21 Dose: 15 mg Documented By: MICHAEL(2) Lorazepam (Lorazepam 2 Mg/Ml Oral Yelena) 1 mg PO Q1HR PRN PRN Reason: Anxiety Last Admin: 06/24/22 14:32 Dose: 1 mg Documented By: Admin: 06/24/22 13:15 Dose: 1 mg Documented By: Admin: 06/24/22 11:07 Dose: 1 mg Documented By: MS Magnesium Chloride (Magnesium Chloride 64 Mg Tablet) 128 mg PO NOW ONE Stop: 06/24/22 09:31 Last Admin: 06/24/22 09:42 Dose: 128 mg Documented By: MS Midodrine (Midodrine Hcl 5 Mg Tablet) 10 mg PO TID [facility] Last Admin: 06/24/22 08:14 Dose: 10 mg Documented By: MS Morphine Sulfate (Morphine 10 Mg/0.5 Ml Oral Syringe) 10 mg PO Q1H PRN PRN Reason: Pain/Dyspnea Last Admin: 06/24/22 14:33 Dose: 10 mg Documented By: Admin: 06/24/22 13:15 Dose: 10 mg Documented By: Admin: 06/24/22 11:06 Dose: 10 mg Documented By: MS Ondansetron HCl (Ondansetron 4 Mg/2 Ml Inj) 4 mg IV Q8HR PRN PRN Reason: Nausea And Vomiting Potassium Chloride (Potassium Chloride 20 Meq Tab) 40 meq PO Q6H [facility] Stop: 06/24/22 16:01 Last Admin: 06/24/22 15:18 Dose: 40 meq Documented By: Admin: 06/24/22 09:42 Dose: 40 meq Documented By: MS Tramadol HCl (Tramadol 50 Mg Tablet) 50 mg PO QID PRN PRN Reason: Pain, Moderate (4-6) Last Admin: 06/24/22 06:20 Dose: 50 mg Documented By: Admin: 06/24/22 01:28 Dose: 50 mg Documented By: GABI Vancomycin HCl (Vancomycin 125 Mg Capsule) 125 mg PO BID JOSE ANTONIO Last Admin: 06/24/22 08:15 Dose: 125 mg Documented By: Vital Signs Vital signs: Vital Signs - 8 hr 06/23/22 17:45 06/23/22 17:45 06/23/22 18:00 Pulse Rate 106 H Respiratory Rate 16 Blood Pressure 127/81 128/86 Pulse Oximetry 100 Oxygen Delivery Method 06/23/22 18:00 06/23/22 18:15 06/23/22 18:15 Pulse Rate 106 H 106 H Respiratory Rate 22 19 Blood Pressure 131/87 Pulse Oximetry 99 99 Oxygen Delivery Method Room Air 06/23/22 18:30 06/23/22 18:31 06/23/22 18:31 Pulse Rate 108 H 105 H Respiratory Rate 23 Blood Pressure 118/78 Pulse Oximetry 98 Oxygen Delivery Method Room Air 06/23/22 18:45 06/23/22 18:45 06/23/22 19:00 Pulse Rate 107 H Respiratory Rate 15 Blood Pressure 138/89 139/89 Pulse Oximetry 99 Oxygen Delivery Method 06/23/22 19:00 06/23/22 19:15 06/23/22 19:15 Pulse Rate 106 H 105 H Respiratory Rate 14 19 Blood Pressure 143/88 H Pulse Oximetry 99 99 Oxygen Delivery Method Room Air 06/23/22 19:30 06/23/22 19:30 06/23/22 19:32 Pulse Rate 103 H 103 H Respiratory Rate 17 15 Blood Pressure 138/87 Pulse Oximetry 98 99 Oxygen Delivery Method Room Air 06/23/22 19:32 06/23/22 19:34 06/23/22 19:34 Pulse Rate 104 H Respiratory Rate 15 Blood Pressure 132/83 105/67 Pulse Oximetry 99 Oxygen Delivery Method 06/23/22 19:35 06/23/22 19:35 06/23/22 19:45 Pulse Rate 104 H Respiratory Rate 16 Blood Pressure 83/51 L 138/84 Pulse Oximetry 98 Oxygen Delivery Method 06/23/22 19:45 06/23/22 20:00 06/23/22 20:30 Pulse Rate 104 H 103 H 104 H Respiratory Rate 15 13 16 Blood Pressure Pulse Oximetry 99 99 100 Oxygen Delivery Method Room Air Room Air 06/23/22 20:39 06/23/22 20:39 06/23/22 20:45 Pulse Rate 103 H Respiratory Rate 18 Blood Pressure 110/76 117/78 Pulse Oximetry 100 Oxygen Delivery Method 06/23/22 20:45 06/23/22 21:00 06/23/22 21:00 Pulse Rate 103 H 103 H Respiratory Rate 16 21 Blood Pressure 123/85 Pulse Oximetry 100 100 Oxygen Delivery Method Room Air 06/23/22 21:15 06/23/22 21:15 06/23/22 21:30 Pulse Rate 101 H Respiratory Rate 19 Blood Pressure 129/82 134/84 Pulse Oximetry 100 Oxygen Delivery Method 06/23/22 21:30 06/23/22 22:00 06/23/22 22:15 Pulse Rate 102 H 98 H 98 H Respiratory Rate 19 18 16 Blood Pressure Pulse Oximetry 99 100 100 Oxygen Delivery Method Room Air Room Air 06/23/22 22:15 06/23/22 22:30 06/23/22 22:30 Pulse Rate 97 H Respiratory Rate 14 Blood Pressure 111/71 115/74 Pulse Oximetry 100 Oxygen Delivery Method Room Air 06/23/22 22:45 06/23/22 22:45 06/23/22 23:00 Pulse Rate 100 H Respiratory Rate 14 Blood Pressure 124/74 119/76 Pulse Oximetry 100 Oxygen Delivery Method 06/23/22 23:00 06/23/22 23:15 06/23/22 23:15 Pulse Rate 102 H 104 H Respiratory Rate 17 Blood Pressure 129/82 Pulse Oximetry 100 99 Oxygen Delivery Method Room Air 06/23/22 23:30 06/23/22 23:30 Pulse Rate 102 H Respiratory Rate 19 Blood Pressure 121/76 Pulse Oximetry 99 Oxygen Delivery Method Room Air MDM - Weakness <Jay Marlow MD - Last Filed: 06/26/22 08:53> Lab Data Result diagrams: 06/24/22 05:10 06/24/22 05:10 Labs: Lab Results 06/23/22 06/23/22 06/23/22 Range/Units 12:45 12:45 12:45 WBC 7.9 (4.5-11.0) X10^3/uL RBC 3.63 L (4.0-5.2) X10^6/uL Hgb 9.6 L (12.0-16.0) g/dL Hct 30.0 L (36-46) % MCV 82.5 (80-100) fL MCH 26.3 (26-34) PG MCHC 31.9 (30-36) % RDW 22.5 H (11.6-14.8) % Plt Count 636 H (150-400) X10^3/uL Neut % (Auto) 64.7 (50-75) % Lymph % (Auto) 27.2 (25-40) % [place] % (Auto) 5.4 (3-14) % Eos % (Auto) 2.0 (2-4) % Baso % (Auto) 0.7 (0-2) % Neut # (Auto) 5100 (2181-3627) /uL Lymph # (Auto) 2200 (8503-6628) /uL [place] # (Auto) 400 (0-900) /uL Eos # (Auto) 200 (0-450) /uL Baso # (Auto) 100 (0-100) /uL RBC Morphology Not Reportable Poikilocytosis 1+ H Anisocytosis 2+ H VBG pH (7.33-7.43) VBG pCO2 (45-50) mmHg VBG pO2 (35-45) mmHg VBG HCO3 (23-28) mmol/L VBG Total CO2 (24-29) mmol/L VBG O2 Saturation (70-75) % VBG Base Excess (0-4) mmol/L Sodium 139 (137-145) mmol/L Potassium 3.4 (3.4-5.1) mmol/L Chloride 114 H (98-107) mmol/L Carbon Dioxide 17 L (22-32) mmol/L BUN 10 (7-17) mg/dL Creatinine 0.65 (0.52-1.04) mg/dL Estimated GFR > 60 (>60) mL/min BUN/Creatinine Ratio 15.4 (6-22) Glucose 228 H (70-100) mg/dL Lactate 0.9 (0.7-2.1) mmol/L Calcium 7.6 L (8.4-10.2) mg/dL Total Bilirubin 0.2 (0.2-1.3) mg/dL AST 17 (14-36) IU/L ALT 19 (<35) IU/L Alkaline Phosphatase 187 H (38-126) U/L Total Protein 5.9 L (6.3-8.2) g/dL Albumin 2.7 L (3.5-5.0) g/dL Globulin 3.2 (1.7-4.1) g/dL Albumin/Globulin Ratio 0.8 L (1.0-2.8) Lipase < 10 L (23-300) U/L Procalcitonin 5.54 H (<0.5) ng/mL Urine RBC (0-5/HPF) Urine WBC (0-5/HPF) Ur Squamous Epith Cells (0-5/HPF) Urine Bacteria (None) Urine Yeast (None) Ur Culture Indicated? SARS-CoV-2 (PCR) (Negative) 06/23/22 06/23/22 06/23/22 Range/Units 12:47 13:25 23:10 WBC (4.5-11.0) X10^3/uL RBC (4.0-5.2) X10^6/uL Hgb (12.0-16.0) g/dL Hct (36-46) % MCV (80-100) fL MCH (26-34) PG MCHC (30-36) % RDW (11.6-14.8) % Plt Count (150-400) X10^3/uL Neut % (Auto) (50-75) % Lymph % (Auto) (25-40) % Horry % (Auto) (3-14) % Eos % (Auto) (2-4) % Baso % (Auto) (0-2) % Neut # (Auto) (0937-1319) /uL Lymph # (Auto) (1832-6733) /uL Horry # (Auto) (0-900) /uL Eos # (Auto) (0-450) /uL Baso # (Auto) (0-100) /uL RBC Morphology Poikilocytosis Anisocytosis VBG pH (7.33-7.43) VBG pCO2 (45-50) mmHg VBG pO2 (35-45) mmHg VBG HCO3 (23-28) mmol/L VBG Total CO2 (24-29) mmol/L VBG O2 Saturation (70-75) % VBG Base Excess (0-4) mmol/L Sodium 141 (137-145) mmol/L Potassium 3.2 L (3.4-5.1) mmol/L Chloride 120 H (98-107) mmol/L Carbon Dioxide 17 L (22-32) mmol/L BUN 6 L (7-17) mg/dL Creatinine 0.39 L (0.52-1.04) mg/dL Estimated GFR > 60 (>60) mL/min BUN/Creatinine Ratio 15.4 (6-22) Glucose 131 H (70-100) mg/dL Lactate (0.7-2.1) mmol/L Calcium 6.8 L (8.4-10.2) mg/dL Total Bilirubin 0.2 (0.2-1.3) mg/dL AST 15 (14-36) IU/L ALT 15 (<35) IU/L Alkaline Phosphatase 138 H (38-126) U/L Total Protein 5.2 L (6.3-8.2) g/dL Albumin 2.2 L (3.5-5.0) g/dL Globulin 3.0 (1.7-4.1) g/dL Albumin/Globulin Ratio 0.7 L (1.0-2.8) Lipase (23-300) U/L Procalcitonin (<0.5) ng/mL Urine RBC 1-5/hpf D (0-5/HPF) Urine WBC 10-30/hpf H (0-5/HPF) Ur Squamous Epith Cells 5-10 /hpf H (0-5/HPF) Urine Bacteria Many (>30) H (None) Urine Yeast 1-5/hpf H (None) Ur Culture Indicated? Specimen cultured SARS-CoV-2 (PCR) Negative (Negative) 06/23/22 Range/Units 23:10 WBC (4.5-11.0) X10^3/uL RBC (4.0-5.2) X10^6/uL Hgb (12.0-16.0) g/dL Hct (36-46) % MCV (80-100) fL MCH (26-34) PG MCHC (30-36) % RDW (11.6-14.8) % Plt Count (150-400) X10^3/uL Neut % (Auto) (50-75) % Lymph % (Auto) (25-40) % Horry % (Auto) (3-14) % Eos % (Auto) (2-4) % Baso % (Auto) (0-2) % Neut # (Auto) (0269-5239) /uL Lymph # (Auto) (6028-8203) /uL Horry # (Auto) (0-900) /uL Eos # (Auto) (0-450) /uL Baso # (Auto) (0-100) /uL RBC Morphology Poikilocytosis Anisocytosis VBG pH 7.27 L (7.33-7.43) VBG pCO2 38.3 L (45-50) mmHg VBG pO2 42 (35-45) mmHg VBG HCO3 18 L (23-28) mmol/L VBG Total CO2 19 L (24-29) mmol/L VBG O2 Saturation 71 (70-75) % VBG Base Excess -10.0 L (0-4) mmol/L Sodium (137-145) mmol/L Potassium (3.4-5.1) mmol/L Chloride (98-107) mmol/L Carbon Dioxide (22-32) mmol/L BUN (7-17) mg/dL Creatinine (0.52-1.04) mg/dL Estimated GFR (>60) mL/min BUN/Creatinine Ratio (6-22) Glucose (70-100) mg/dL Lactate (0.7-2.1) mmol/L Calcium (8.4-10.2) mg/dL Total Bilirubin (0.2-1.3) mg/dL AST (14-36) IU/L ALT (<35) IU/L Alkaline Phosphatase (38-126) U/L Total Protein (6.3-8.2) g/dL Albumin (3.5-5.0) g/dL Globulin (1.7-4.1) g/dL Albumin/Globulin Ratio (1.0-2.8) Lipase (23-300) U/L Procalcitonin (<0.5) ng/mL Urine RBC (0-5/HPF) Urine WBC (0-5/HPF) Ur Squamous Epith Cells (0-5/HPF) Urine Bacteria (None) Urine Yeast (None) Ur Culture Indicated? SARS-CoV-2 (PCR) (Negative) Point of Care Testing Glucose POC 174 Urine Dip Bedside Urine Glucose 1000 mg/dl Bedside Urine Bilirubin - Negative Bedside Urine Ketone - Negative Urine Specific Newcomb 1.015 Bedside Urine Occult Blood ++ Bedside Urine pH 6.0 Bedside Urine Protein + 30 Bedside Urine Urobilinogen - Negative Bedside Urine Nitrite - Negative Bedside Urine Leukocytes + 70 Esterase Imaging Data Right hip x-ray: My Impression: Right femoral fixation. No acute injury or dislocation. Radiologist Impression: ?Right femoral fixation. No visualized acute fracture or dislocation. Chest x-ray: Radiologist Impression: Normal. <Amada Savage, DO - Last Filed: 06/24/22 01:45> Lab Data Labs: Lab Results 06/23/22 06/23/22 06/23/22 Range/Units 12:45 12:45 12:45 WBC 7.9 (4.5-11.0) X10^3/uL RBC 3.63 L (4.0-5.2) X10^6/uL Hgb 9.6 L (12.0-16.0) g/dL Hct 30.0 L (36-46) % MCV 82.5 (80-100) fL MCH 26.3 (26-34) PG MCHC 31.9 (30-36) % RDW 22.5 H (11.6-14.8) % Plt Count 636 H (150-400) X10^3/uL Neut % (Auto) 64.7 (50-75) % Lymph % (Auto) 27.2 (25-40) % Horry % (Auto) 5.4 (3-14) % Eos % (Auto) 2.0 (2-4) % Baso % (Auto) 0.7 (0-2) % Neut # (Auto) 5100 (3289-7159) /uL Lymph # (Auto) 2200 (3810-9913) /uL Horry # (Auto) 400 (0-900) /uL Eos # (Auto) 200 (0-450) /uL Baso # (Auto) 100 (0-100) /uL RBC Morphology Not Reportable Poikilocytosis 1+ H Anisocytosis 2+ H VBG pH (7.33-7.43) VBG pCO2 (45-50) mmHg VBG pO2 (35-45) mmHg VBG HCO3 (23-28) mmol/L VBG Total CO2 (24-29) mmol/L VBG O2 Saturation (70-75) % VBG Base Excess (0-4) mmol/L Sodium 139 (137-145) mmol/L Potassium 3.4 (3.4-5.1) mmol/L Chloride 114 H (98-107) mmol/L Carbon Dioxide 17 L (22-32) mmol/L BUN 10 (7-17) mg/dL Creatinine 0.65 (0.52-1.04) mg/dL Estimated GFR > 60 (>60) mL/min BUN/Creatinine Ratio 15.4 (6-22) Glucose 228 H (70-100) mg/dL Lactate 0.9 (0.7-2.1) mmol/L Calcium 7.6 L (8.4-10.2) mg/dL Total Bilirubin 0.2 (0.2-1.3) mg/dL AST 17 (14-36) IU/L ALT 19 (<35) IU/L Alkaline Phosphatase 187 H (38-126) U/L Total Protein 5.9 L (6.3-8.2) g/dL Albumin 2.7 L (3.5-5.0) g/dL Globulin 3.2 (1.7-4.1) g/dL Albumin/Globulin Ratio 0.8 L (1.0-2.8) Lipase < 10 L (23-300) U/L Procalcitonin 5.54 H (<0.5) ng/mL Urine RBC (0-5/HPF) Urine WBC (0-5/HPF) Ur Squamous Epith Cells (0-5/HPF) Urine Bacteria (None) Urine Yeast (None) Ur Culture Indicated? SARS-CoV-2 (PCR) (Negative) 06/23/22 06/23/22 06/23/22 Range/Units 12:47 13:25 23:10 WBC (4.5-11.0) X10^3/uL RBC (4.0-5.2) X10^6/uL Hgb (12.0-16.0) g/dL Hct (36-46) % MCV (80-100) fL MCH (26-34) PG MCHC (30-36) % RDW (11.6-14.8) % Plt Count (150-400) X10^3/uL Neut % (Auto) (50-75) % Lymph % (Auto) (25-40) % Horry % (Auto) (3-14) % Eos % (Auto) (2-4) % Baso % (Auto) (0-2) % Neut # (Auto) (2244-3388) /uL Lymph # (Auto) (1741-1507) /uL Horry # (Auto) (0-900) /uL Eos # (Auto) (0-450) /uL Baso # (Auto) (0-100) /uL RBC Morphology Poikilocytosis Anisocytosis VBG pH (7.33-7.43) VBG pCO2 (45-50) mmHg VBG pO2 (35-45) mmHg VBG HCO3 (23-28) mmol/L VBG Total CO2 (24-29) mmol/L VBG O2 Saturation (70-75) % VBG Base Excess (0-4) mmol/L Sodium 141 (137-145) mmol/L Potassium 3.2 L (3.4-5.1) mmol/L Chloride 120 H (98-107) mmol/L Carbon Dioxide 17 L (22-32) mmol/L BUN 6 L (7-17) mg/dL Creatinine 0.39 L (0.52-1.04) mg/dL Estimated GFR > 60 (>60) mL/min BUN/Creatinine Ratio 15.4 (6-22) Glucose 131 H (70-100) mg/dL Lactate (0.7-2.1) mmol/L Calcium 6.8 L (8.4-10.2) mg/dL Total Bilirubin 0.2 (0.2-1.3) mg/dL AST 15 (14-36) IU/L ALT 15 (<35) IU/L Alkaline Phosphatase 138 H (38-126) U/L Total Protein 5.2 L (6.3-8.2) g/dL Albumin 2.2 L (3.5-5.0) g/dL Globulin 3.0 (1.7-4.1) g/dL Albumin/Globulin Ratio 0.7 L (1.0-2.8) Lipase (23-300) U/L Procalcitonin (<0.5) ng/mL Urine RBC 1-5/hpf D (0-5/HPF) Urine WBC 10-30/hpf H (0-5/HPF) Ur Squamous Epith Cells 5-10 /hpf H (0-5/HPF) Urine Bacteria Many (>30) H (None) Urine Yeast 1-5/hpf H (None) Ur Culture Indicated? Specimen cultured SARS-CoV-2 (PCR) Negative (Negative) 06/23/22 Range/Units 23:10 WBC (4.5-11.0) X10^3/uL RBC (4.0-5.2) X10^6/uL Hgb (12.0-16.0) g/dL Hct (36-46) % MCV (80-100) fL MCH (26-34) PG MCHC (30-36) % RDW (11.6-14.8) % Plt Count (150-400) X10^3/uL Neut % (Auto) (50-75) % Lymph % (Auto) (25-40) % Horry % (Auto) (3-14) % Eos % (Auto) (2-4) % Baso % (Auto) (0-2) % Neut # (Auto) (4842-5629) /uL Lymph # (Auto) (0328-6815) /uL Horry # (Auto) (0-900) /uL Eos # (Auto) (0-450) /uL Baso # (Auto) (0-100) /uL RBC Morphology Poikilocytosis Anisocytosis VBG pH 7.27 L (7.33-7.43) VBG pCO2 38.3 L (45-50) mmHg VBG pO2 42 (35-45) mmHg VBG HCO3 18 L (23-28) mmol/L VBG Total CO2 19 L (24-29) mmol/L VBG O2 Saturation 71 (70-75) % VBG Base Excess -10.0 L (0-4) mmol/L Sodium (137-145) mmol/L Potassium (3.4-5.1) mmol/L Chloride (98-107) mmol/L Carbon Dioxide (22-32) mmol/L BUN (7-17) mg/dL Creatinine (0.52-1.04) mg/dL Estimated GFR (>60) mL/min BUN/Creatinine Ratio (6-22) Glucose (70-100) mg/dL Lactate (0.7-2.1) mmol/L Calcium (8.4-10.2) mg/dL Total Bilirubin (0.2-1.3) mg/dL AST (14-36) IU/L ALT (<35) IU/L Alkaline Phosphatase (38-126) U/L Total Protein (6.3-8.2) g/dL Albumin (3.5-5.0) g/dL Globulin (1.7-4.1) g/dL Albumin/Globulin Ratio (1.0-2.8) Lipase (23-300) U/L Procalcitonin (<0.5) ng/mL Urine RBC (0-5/HPF) Urine WBC (0-5/HPF) Ur Squamous Epith Cells (0-5/HPF) Urine Bacteria (None) Urine Yeast (None) Ur Culture Indicated? SARS-CoV-2 (PCR) (Negative) Point of Care Testing Glucose POC 174 Urine Dip Bedside Urine Glucose 1000 mg/dl Bedside Urine Bilirubin - Negative Bedside Urine Ketone - Negative Urine Specific Newcomb 1.015 Bedside Urine Occult Blood ++ Bedside Urine pH 6.0 Bedside Urine Protein + 30 Bedside Urine Urobilinogen - Negative Bedside Urine Nitrite - Negative Bedside Urine Leukocytes + 70 Esterase Imaging Data CX 2: Radiologist Impression: Signed Patient: Valerie Garnica I MR#: [id number] : 1975 Acct:[id number] Age/Sex: 46 / F Date of Service: 06/23/22 Loc: ED Accession Number: [id number] ?? Procedure: XR chest 1V Ordering Provider: Amada Savage D.O. PROCEDURE:? XR CHEST 1V ? INDICATIONS:? CENTRAL LINE PLACEMENT ? TECHNIQUE:? One view of the chest was acquired.? ? COMPARISON:? [facility], , XR CHEST 1V, 06/23/2022, 13:11.? [facility], , XR CHEST 1V, 06/10/2022, 8:13. ? FINDINGS:? ? Surgical changes and devices:? Central line from right-sided approach extends into the lower aspect of the cardiac silhouette, to the right of midline.? This therefore likely is approaching the insertion of the inferior vena cava into the right atrium. ? Lungs and pleura:? Lungs are clear.? No pleural effusions or pneumothorax.? ? Mediastinum:? Mediastinal contours appear normal.? Heart size is normal.? ? Bones and chest wall:? No suspicious bony lesions.? Overlying soft tissues a ppear unremarkable.? ? IMPRESSION:? Low positioning of the right internal jugular central line, exte nding almost to the inferior margin of the right atrium.? No pneumothorax. ? ? Dictated by: Jose Walker M.D. on 06/23/2022 at 23:13 ? ? CT scan - abdomen/pelvis: Radiologist Impression: Valerie Garnica I MR#: [id number] : 1975 Acct:[id number] Age/Sex: 46 / F Date of Service: 06/23/22 Loc: ICU 227-1 Accession Number: [id number] ?? Procedure: CT abdomen pelvis w con Ordering Provider: Amada Savage D.O. PROCEDURE:? CT ABDOMEN PELVIS W CON ? INDICATIONS:? prior kidney right kidney lesions, now uti ? TECHNIQUE:? After the administration of intravenous contrast, axial sections acquired from the lung bases to the pubic symphysis.? Coronal and sagittal reformats were performed.? For radiation dose reduction, the following was used:? automated exposure control, adjustment of mA and/or kV according to patient size.? ? COMPARISON:? [facility], CT, CT ABDOMEN PELVIS W CON, 05/31/2022, 15:00.? [facility], CT, CT ABDOMEN PELVIS W CON, 02/08/2018, 17:27. ? FINDINGS:? Image quality:? Excellent.? ? Lung bases:? Unremarkable. Heart:? No significant findings. ? ABDOMEN: Liver:? Unremarkable.? ? Gallbladder:? Reduced in degree of distension, mild gallbladder wall thickening persists. ?No calcified gallstones found.? No biliary distention seen.? ? Biliary ducts:? Unremarkable.? ? Pancreas:? Unremarkable.? ? Spleen:? Unremarkable.? ? Adrenal Glands:? Unremarkable.? ? Kidneys and Ureters:? Unremarkable on the left, and the right kidney appears improved at its upper pole, with an appearance consistent with healing focal pyelonephritis in that area..? ? ? Stomach and Bowel:? Stomach, small bowel loops, and colon are unremarkable except for generalized colonic obstipation.? Peritoneum:? No abnormal intraperitoneal fluid.? No free air.? ? Ventral Wall: ? No hernias.? Abdominal Nodes:? No retroperitoneal or mesenteric adenopathy by size criteria.? Vessels:? Aorta and inferior vena cava are normal in size.? ? PELVIS: Pelvic Organs:? Unremarkable.? ? Bladder:? Unremarkable.? ? Pelvic Nodes: No enlarged lymph nodes.? Miscellaneous: No hernias are seen. ? ? ? Bones:? Unremarkable.? IMPRESSION:? Healing focal pyelonephritis with reduction in prominence of the inflammatory process at the upper right kidney.? Persistent generalized colonic obstipation, mildly worsened from the comparison study 05/31/22. ? Reduced gallbladder distension, mild persistent gallbladder wall thickening.? No biliary obstruction or calcified gallstones seen.. ? ? Dictated by: Jose Walker M.D. on 06/24/2022 at 0:41 ? ? Approved by: Jose Walker M.D. on 06/24/2022 at 0:45 ? MDM Narrative Medical decision making narrative: Patient signed out to me by Dr. Marlow. She patient is a brittle diabetic multiple hospitalizations for DKA and sepsis. Presenting today after fall last night. She gets dizzy and lightheaded every time she stands up frequently typically her blood pressure drops into the 80s. She has positive orthostatics urine emergency department. She does have an elevated procalcitonin with a probable UTI. Blood pressure while lying down is within normal limits she is minimally tachycardic. She does not have an anion gap her anion gap is 8. Initial venous pH did show 7.2. Patient is extremely hard IV start she does have 1 IV in the right dorsal hand. I attempted a peripheral ultrasound-guided IV however unsuccessful. Possible need for CT and frequent blood draws. Central line was placed. Dr. haas in ED to see and evaluate. Accept patient. Discharge Plan Departure Patient Disposition: Admitted as Observation Clinical Impression: Contusion of hip, right, UTI (urinary tract infection), Orthostatic hypotension Admit Date/Time: 06/23/22 23:31 Admit Provider: David Haas
[2022-06-23 13:32] LABS: Procalcitonin 5.54 ng/mL (<0.5)
[2022-06-23 13:49] LABS: Bacteria Urine Many (>30); RBC Urine 1-5/HPF (0-5/HPF); Squamous Epithelial Cell Urine 5-10 /HPF (0-5/HPF); WBC Urine 10-30/HPF (0-5/HPF)
[2022-06-23 13:50] LABS: Culture Indicated Urine Specimen Cultured
[2022-06-23 13:52] LABS: Poikilocytosis 1+
[2022-06-23 13:53] LABS: Anisocytosis 2+
--- NOTE | 2022-06-23 16:03 | DI.RAD.S_ITS ---
PROCEDURE: XR HIP W PEL IF DONE RT 2V INDICATIONS: Fall TECHNIQUE: AP pelvis with lateral view(s) of the right hip(s). COMPARISON: [facility], , XR HIP W PEL IF DONE RT 2V, 11/29/2021, 15:33. FINDINGS: Bones: No fractures or dislocations. Pelvic ring appears intact. No suspicious bony lesions. Right femoral fixation is present. Soft tissues: The visualized bowel gas pattern is normal. No suspicious soft tissue calcifications. IMPRESSION: Right femoral fixation. No visualized acute fracture or dislocation. However, if clinical concern and/or pain persist, short interval imaging followup in 7-10 days is recommended, as occult injury cannot be definitively excluded. Dictated by: Jessica Tovar M.D. on 06/23/2022 at 16:38 Approved by: Jessica Tovar M.D. on 06/23/2022 at 16:38
--- NOTE | 2022-06-23 16:18 | PC.NURSE ---
Pt up to commode and blood pressure 79/50 immediately after, recheck 89/59. Pt denies dizziness. Dr. Marlow notified.
--- NOTE | 2022-06-23 17:11 | PC.NURSE ---
Pt reported increase in dizziness and headache while sitting up for orthostatic vitals check. Did not proceed to stand pt r/t blood pressure. Dr. Marlow notified and new orders received.
[2022-06-23] MEDS: KETOROLAC 30 MG/ML VIAL 15 MG IV (18:21)
--- NOTE | 2022-06-23 20:23 | DI.CT.S_ITS ---
PROCEDURE: CT ABDOMEN PELVIS W CON INDICATIONS: prior kidney right kidney lesions, now uti TECHNIQUE: After the administration of intravenous contrast, axial sections acquired from the lung bases to the pubic symphysis. Coronal and sagittal reformats were performed. For radiation dose reduction, the following was used: automated exposure control, adjustment of mA and/or kV according to patient size. COMPARISON: [facility], CT, CT ABDOMEN PELVIS W CON, 05/31/2022, 15:00. [facility], CT, CT ABDOMEN PELVIS W CON, 02/08/2018, 17:27. FINDINGS: Image quality: Excellent. Lung bases: Unremarkable. Heart: No significant findings. ABDOMEN: Liver: Unremarkable. Gallbladder: Reduced in degree of distension, mild gallbladder wall thickening persists. No calcified gallstones found. No biliary distention seen. Biliary ducts: Unremarkable. Pancreas: Unremarkable. Spleen: Unremarkable. Adrenal Glands: Unremarkable. Kidneys and Ureters: Unremarkable on the left, and the right kidney appears improved at its upper pole, with an appearance consistent with healing focal pyelonephritis in that area.. Stomach and Bowel: Stomach, small bowel loops, and colon are unremarkable except for generalized colonic obstipation. Peritoneum: No abnormal intraperitoneal fluid. No free air. Ventral Wall: No hernias. Abdominal Nodes: No retroperitoneal or mesenteric adenopathy by size criteria. Vessels: Aorta and inferior vena cava are normal in size. PELVIS: Pelvic Organs: Unremarkable. Bladder: Unremarkable. Pelvic Nodes: No enlarged lymph nodes. Miscellaneous: No hernias are seen. Bones: Unremarkable. IMPRESSION: Healing focal pyelonephritis with reduction in prominence of the inflammatory process at the upper right kidney. Persistent generalized colonic obstipation, mildly worsened from the comparison study 05/31/22. Reduced gallbladder distension, mild persistent gallbladder wall thickening. No biliary obstruction or calcified gallstones seen.. Dictated by: Jose Walker M.D. on 06/24/2022 at 0:41 Approved by: Jose Walker M.D. on 06/24/2022 at 0:45
--- NOTE | 2022-06-23 20:36 | PC.NURSE ---
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 RN attempted IV unsuccessful then x2 sticks with a butterfly unsuccessful. Dr. Savage notified, orders received to start antibiotic despite 2nd blood culture still pending. Holding off on CT with contrast at this time r/t poor access.
[2022-06-23] MEDS: cefTRIAXone 1,000 MG in SODIUM CHLORIDE 0.9% 100 ML 200 MG IV (20:39)
--- NOTE | 2022-06-23 23:18 | P.HP_ITS ---
History of Present Illness History of Present Illness Date Patient Seen: 06/23/22 Time Patient Seen: 22:30 Chief complaint: Chest Pain, SOB Narrative: Ms. Garnica is a 46W with complicated PMH incluiding Type 1 dm, with multiple admits for DKA, possible lupus, hx cva, afib and recent admit for septic shock who presents with weakness and falls. She states she started feeling bad last night and felt dizzy and feel on her right side. She did not hit her head or lose consciousness. She continued to feel poorly so came to the hospital primarily with weakness and dizziness. She has no fevers. She has felt chills. No nausea, vomiting, diarrhea. No chest pain or shortness of breath. She states she was recently discharged from [facility] where she had septic shock and a renal abscess. She states she was discharged on oral antibiotics, she can't remember which, and still has about a week of medication to take. In the ED workup was done, vitals notable t 97.5, hr 100s, blood pressure 110s, dropped to 80s on standing. Labs notable for WBC 7.9, hgb 9.6 plts 636. Creatinine 0.65. Lactate 0.9. Procal 5.54. UA showed 10-30 wbc, many bacteria. Difficult IV access so central line was placed. Chest xray and hip xray showed no acute process. She had CT abdomen ordered and pending. She was ordered for antibiotics and admitted for further treatment. Patient History Medical History Acute CVA (cerebrovascular accident) Alcohol intoxication Chronic atrial fibrillation with RVR Closed hip fracture COVID DKA (diabetic ketoacidoses) DKA (diabetic ketoacidosis) Fibromyalgia Gastroesophageal reflux disease Insulin dependent diabetes mellitus Lupus Osteoporosis Surgical History History of hip surgery Presence of pancreatic duct stent Family & Social History Family History Mother Diabetes mellitus Congestive heart failure Pancreatic cancer Father Diabetes mellitus Brother Diabetes mellitus Pancreatitis Sister Drug overdose Social History: household members family Safety & Behavioral: Feels Safe in Current Yes Environment Been Physically Hurt or No Threatened By a Person Tobacco & Substance use: Tobacco type cigarettes Smoking Status Current every day smoker alcohol intake never alcohol intake frequency holiday/special occasion Substance Use Type does not use Meds Home Medications and Allergies Home Medications Medication Instructions Recorded Confirmed Type insulin aspart U-100 100 unit/mL 0 unit (0 mL) SUBCUT AC #3 units 02/12/18 06/24/22 Rx (3 mL) subcutaneous pen (Novolog Flexpen U-100 Insulin aspart) buspirone 10 mg tablet 3 tab PO DAILY 12/08/18 06/24/22 History cyclobenzaprine 10 mg tablet 10 mg PO TID PRN pain 12/08/18 06/24/22 History insulin glargine 100 unit/mL (3 10 unit (0.1 mL) SUBCUT DAILY #0 mL 12/09/21 06/24/22 Rx mL) subcutaneous pen [id number] See Rx Instructions .Route .COMPLEX 02/14/22 06/24/22 History 24,000-76,000-120,000 unit capsule,delayed rel (Creon) ondansetron HCl 4 mg tablet 4 mg PO TID PRN Nausea 02/14/22 06/24/22 History acetaminophen 325 mg tablet 650 mg PO Q6HR PRN Headache #60 02/19/22 06/24/22 Rx tabs melatonin 3 mg tablet 3 mg PO BEDTIME #30 tabs 02/19/22 06/24/22 Rx pseudoephedrine HCl 30 mg tablet 30 mg PO Q6HR PRN Congestion/ 02/19/22 06/24/22 Rx sinus headache #30 tabs apixaban 5 mg tablet (Eliquis) 5 mg PO DAILY 05/31/22 06/24/22 History gabapentin 400 mg capsule 800 mg PO QID 05/31/22 06/24/22 History ascorbic acid (vitamin C) 500 mg 500 mg PO DAILY #30 caps 06/06/22 06/24/22 Rx capsule,extended release (Vitamin C) ferrous sulfate 325 mg (65 mg 325 mg PO DAILY #30 tabs 06/06/22 06/24/22 Rx iron) tablet midodrine 5 mg tablet 10 mg PO TID #90 tabs 06/06/22 06/24/22 Rx loratadine 10 mg tablet 10 mg PO DAILY PRN Allergy Symptoms 06/24/22 06/24/22 History Allergies Allergy/AdvReac Type Severity Reaction Status Date / Time amitriptyline Allergy Intermediate Verified 06/17/22 16:16 sulfasalazine [SULFASALAZINE] Allergy Mild PANCREATITI Verified 06/17/22 16:16 S trazodone AdvReac Intermediate HEART Verified 06/17/22 16:16 PALPITATIONS Review of Systems Review of Systems Narrative: 14 systems reviewed and negative aside from what is noted in HPI Exam Vital Signs (past 8 hours): - 06/23/22 15:30 06/23/22 15:30 06/23/22 15:45 Pulse Rate 107 H Pulse Rate [Orthostatic Lying] Pulse Rate [Orthostatic Sitting] Respiratory Rate 17 Blood Pressure 127/86 129/88 Blood Pressure [Orthostatic Lying] Blood Pressure [Orthostatic Sitting] Pulse Oximetry 100 Oxygen Delivery Method Room Air 06/23/22 15:45 06/23/22 16:00 06/23/22 16:00 Pulse Rate 107 H 107 H Pulse Rate [Orthostatic Lying] Pulse Rate [Orthostatic Sitting] Respiratory Rate 22 15 Blood Pressure 128/85 Blood Pressure [Orthostatic Lying] Blood Pressure [Orthostatic Sitting] Pulse Oximetry 99 98 Oxygen Delivery Method Room Air 06/23/22 16:30 06/23/22 16:31 06/23/22 16:31 Pulse Rate 106 H 105 H Pulse Rate [Orthostatic Lying] Pulse Rate [Orthostatic Sitting] Respiratory Rate 10 L 15 Blood Pressure 109/71 Blood Pressure [Orthostatic Lying] Blood Pressure [Orthostatic Sitting] Pulse Oximetry 100 99 Oxygen Delivery Method Room Air 06/23/22 16:45 06/23/22 16:45 06/23/22 17:11 Pulse Rate 106 H Pulse Rate [Orthostatic Lying] 104 H Pulse Rate [Orthostatic Sitting] 105 H Respiratory Rate 18 Blood Pressure 114/78 Blood Pressure [Orthostatic Lying] 115/74 Blood Pressure [Orthostatic Sitting] 83/57 L Pulse Oximetry 100 Oxygen Delivery Method 06/23/22 17:15 06/23/22 17:15 06/23/22 17:30 Pulse Rate 104 H Pulse Rate [Orthostatic Lying] Pulse Rate [Orthostatic Sitting] Respiratory Rate 16 Blood Pressure 114/80 121/84 Blood Pressure [Orthostatic Lying] Blood Pressure [Orthostatic Sitting] Pulse Oximetry 99 Oxygen Delivery Method Room Air 06/23/22 17:30 06/23/22 17:45 06/23/22 17:45 Pulse Rate 106 H 106 H Pulse Rate [Orthostatic Lying] Pulse Rate [Orthostatic Sitting] Respiratory Rate 18 16 Blood Pressure 127/81 Blood Pressure [Orthostatic Lying] Blood Pressure [Orthostatic Sitting] Pulse Oximetry 100 100 Oxygen Delivery Method 06/23/22 18:00 06/23/22 18:00 06/23/22 18:15 Pulse Rate 106 H 106 H Pulse Rate [Orthostatic Lying] Pulse Rate [Orthostatic Sitting] Respiratory Rate 22 19 Blood Pressure 128/86 Blood Pressure [Orthostatic Lying] Blood Pressure [Orthostatic Sitting] Pulse Oximetry 99 99 Oxygen Delivery Method Room Air 06/23/22 18:15 06/23/22 18:30 06/23/22 18:31 Pulse Rate 108 H Pulse Rate [Orthostatic Lying] Pulse Rate [Orthostatic Sitting] Respiratory Rate Blood Pressure 131/87 118/78 Blood Pressure [Orthostatic Lying] Blood Pressure [Orthostatic Sitting] Pulse Oximetry Oxygen Delivery Method 06/23/22 18:31 06/23/22 18:45 06/23/22 18:45 Pulse Rate 105 H 107 H Pulse Rate [Orthostatic Lying] Pulse Rate [Orthostatic Sitting] Respiratory Rate 23 15 Blood Pressure 138/89 Blood Pressure [Orthostatic Lying] Blood Pressure [Orthostatic Sitting] Pulse Oximetry 98 99 Oxygen Delivery Method Room Air 06/23/22 19:00 06/23/22 19:00 06/23/22 19:15 Pulse Rate 106 H 105 H Pulse Rate [Orthostatic Lying] Pulse Rate [Orthostatic Sitting] Respiratory Rate 14 19 Blood Pressure 139/89 Blood Pressure [Orthostatic Lying] Blood Pressure [Orthostatic Sitting] Pulse Oximetry 99 99 Oxygen Delivery Method Room Air 06/23/22 19:15 06/23/22 19:30 06/23/22 19:30 Pulse Rate 103 H Pulse Rate [Orthostatic Lying] Pulse Rate [Orthostatic Sitting] Respiratory Rate 17 Blood Pressure 143/88 H 138/87 Blood Pressure [Orthostatic Lying] Blood Pressure [Orthostatic Sitting] Pulse Oximetry 98 Oxygen Delivery Method Room Air 06/23/22 19:32 06/23/22 19:32 06/23/22 19:34 Pulse Rate 103 H Pulse Rate [Orthostatic Lying] Pulse Rate [Orthostatic Sitting] Respiratory Rate 15 Blood Pressure 132/83 105/67 Blood Pressure [Orthostatic Lying] Blood Pressure [Orthostatic Sitting] Pulse Oximetry 99 Oxygen Delivery Method 06/23/22 19:34 06/23/22 19:35 06/23/22 19:35 Pulse Rate 104 H 104 H Pulse Rate [Orthostatic Lying] Pulse Rate [Orthostatic Sitting] Respiratory Rate 15 16 Blood Pressure 83/51 L Blood Pressure [Orthostatic Lying] Blood Pressure [Orthostatic Sitting] Pulse Oximetry 99 98 Oxygen Delivery Method 06/23/22 19:45 06/23/22 19:45 06/23/22 20:00 Pulse Rate 104 H 103 H Pulse Rate [Orthostatic Lying] Pulse Rate [Orthostatic Sitting] Respiratory Rate 15 13 Blood Pressure 138/84 Blood Pressure [Orthostatic Lying] Blood Pressure [Orthostatic Sitting] Pulse Oximetry 99 99 Oxygen Delivery Method Room Air 06/23/22 20:30 06/23/22 20:39 06/23/22 20:39 Pulse Rate 104 H 103 H Pulse Rate [Orthostatic Lying] Pulse Rate [Orthostatic Sitting] Respiratory Rate 16 18 Blood Pressure 110/76 Blood Pressure [Orthostatic Lying] Blood Pressure [Orthostatic Sitting] Pulse Oximetry 100 100 Oxygen Delivery Method Room Air 06/23/22 20:45 06/23/22 20:45 06/23/22 21:00 Pulse Rate 103 H Pulse Rate [Orthostatic Lying] Pulse Rate [Orthostatic Sitting] Respiratory Rate 16 Blood Pressure 117/78 123/85 Blood Pressure [Orthostatic Lying] Blood Pressure [Orthostatic Sitting] Pulse Oximetry 100 Oxygen Delivery Method 06/23/22 21:00 06/23/22 21:15 06/23/22 21:15 Pulse Rate 103 H 101 H Pulse Rate [Orthostatic Lying] Pulse Rate [Orthostatic Sitting] Respiratory Rate 21 19 Blood Pressure 129/82 Blood Pressure [Orthostatic Lying] Blood Pressure [Orthostatic Sitting] Pulse Oximetry 100 100 Oxygen Delivery Method Room Air Oxygen Delivery Method Room Air Narrative Exam Narrative: GEN: chronically ill appearing, cachectic HEENT: moist mucous membranes, PERRL NECK: trachea midline, no JVD PULM: clear bilaterally with no wheezes, rhonchi, rales CV: tachycardic, no murmurs ABD: soft, nontender, nondistended, no organomegaly, normal bowel sounds EXT: warm, well perfused with no edema NEURO: awake, alert, oriented, no focal deficits noted Objective Labs Result Diagrams: 06/23/22 12:45 06/23/22 23:10 Labs: Laboratory Results - last 24 hr 06/23/22 06/23/22 06/23/22 12:45 12:45 12:45 WBC 7.9 RBC 3.63 L Hgb 9.6 L Hct 30.0 L MCV 82.5 MCH 26.3 MCHC 31.9 RDW 22.5 H Plt Count 636 H Neut % (Auto) 64.7 Lymph % (Auto) 27.2 [place] % (Auto) 5.4 Eos % (Auto) 2.0 Baso % (Auto) 0.7 Neut # (Auto) 5100 Lymph # (Auto) 2200 [place] # (Auto) 400 Eos # (Auto) 200 Baso # (Auto) 100 RBC Morphology Not Reportable Poikilocytosis 1+ H Anisocytosis 2+ H Sodium 139 Potassium 3.4 Chloride 114 H Carbon Dioxide 17 L BUN 10 Creatinine 0.65 Estimated GFR > 60 BUN/Creatinine Ratio 15.4 Glucose 228 H Lactate 0.9 Calcium 7.6 L Total Bilirubin 0.2 AST 17 ALT 19 Alkaline Phosphatase 187 H Total Protein 5.9 L Albumin 2.7 L Globulin 3.2 Albumin/Globulin Ratio 0.8 L Lipase < 10 L Procalcitonin 5.54 H Urine RBC Urine WBC Ur Squamous Epith Cells Urine Bacteria Urine Yeast Ur Culture Indicated? SARS-CoV-2 (PCR) 06/23/22 06/23/22 12:47 13:25 WBC RBC Hgb Hct MCV MCH MCHC RDW Plt Count Neut % (Auto) Lymph % (Auto) [place] % (Auto) Eos % (Auto) Baso % (Auto) Neut # (Auto) Lymph # (Auto) [place] # (Auto) Eos # (Auto) Baso # (Auto) RBC Morphology Poikilocytosis Anisocytosis Sodium Potassium Chloride Carbon Dioxide BUN Creatinine Estimated GFR BUN/Creatinine Ratio Glucose Lactate Calcium Total Bilirubin AST ALT Alkaline Phosphatase Total Protein Albumin Globulin Albumin/Globulin Ratio Lipase Procalcitonin Urine RBC 1-5/hpf D Urine WBC 10-30/hpf H Ur Squamous Epith Cells 5-10 /hpf H Urine Bacteria Many (>30) H Urine Yeast 1-5/hpf H Ur Culture Indicated? Specimen cultured SARS-CoV-2 (PCR) Negative Assessment & Plan Assessment & Plan narrative: 1. UTI with orthostatic hypotension presumed cause of falls -patient with recent admission to [facility] for septic shock and supposed renal abscess -remains with elevated procal >5, though previously >200, also with positive UA -per patient she remains on abx, not sure which -requested records -for now ordered for ceftriaxone given cultures with history of parker-sensitive e. coli -f/u blood and urine cultures -follow up CT abdomen to eval renal abscess showed improving findings from previous CT last month 2. Type 1 DM, with frequent hx of DKA -currently not with DKA with normal gap, blood sugar <200 -very brittle diabetic -continue lantus and insulin sliding scale 3. Paroxysmal afib -continue apixaban 4. History of C diff colitis -had severe C. diff a few months ago and is high risk for recurrence, states ID specialist at recommended she go on oral vanco if taking antibiotic -not having diarrhea at this time -continue p.o. vancomycin 125 mg b.i.d. for C. diff suppressive prophylaxis 5. Severe protein-calorie malnutrition -this is adversely affecting healing times of all the patient's acute and chronic conditions -BMI 18.1 6. Documented orthostatic hypotension -states she is taking midodrine TID -continue midodrine 10mg TID CODE: Full Proxy: Jhonny Johnson, family I have utilized all available resources to reconcile the patient's home medications Time Spent With Patient Critical Care time: I spent a total of [] minutes of critical care time on this patient's care today; this time is exclusive of procedural time.
[2022-06-23 23:21] LABS: HCO3 VBG 18 mmol/L (23-28); PCO2 VBG 38.3 mmHg (45-50); PO2 VBG 42 mmHg (35-45); Total CO2 VBG 19 mmol/L (24-29); pH VBG 7.27 (7.33-7.43)
[2022-06-23 23:22] LABS: Oxygen Saturation VBG 71 % (70-75)
[2022-06-23 23:39] LABS: Alanine Aminotransferase 15 IU/L (<35); Albumin 2.2 g/dL (3.5-5.0); Albumin Globulin Ratio 0.7 (1.0-2.8); Alkaline Phosphatase 138 U/L (38-126); Aspartate Aminotransferase 15 IU/L (14-36); BUN Creatinine Ratio 15.4 (6-22); Bilirubin Total 0.2 mg/dL (0.2-1.3); Blood Urea Nitrogen 6 mg/dL (7-17); Calcium 6.8 mg/dL (8.4-10.2); Carbon Dioxide 17 mmol/L (22-32); Chloride 120 mmol/L (98-107); Estimated Glomerular Filt Rate > 60 mL/min (>60); Glucose 131 mg/dL (70-100); HEMOLYSIS < 15 (0-50); Potassium 3.2 mmol/L (3.4-5.1); Sodium 141 mmol/L (137-145); Total Protein 5.2 g/dL (6.3-8.2)
[2022-06-24 00:02] VITALS: PULSE 107; O2SAT 92
[2022-06-24 00:34] VITALS: PULSE 105; RESP 19
[2022-06-24 00:49] VITALS: BMI 18.0
[2022-06-24] MEDS: TRAMADOL 50 MG TABLET PO ×2 (01:28→06:20)
--- NOTE | 2022-06-24 02:09 | PC.NURSE ---
Intergluteal cleft redness with skin tears. Old scarring to coccyx area.
--- NOTE | 2022-06-24 02:13 | PC.NURSE ---
Intergluteal cleft redness with skin tears. Old scarring to coccyx area.
--- NOTE | 2022-06-24 02:13 | PC.NURSE ---
Barrier cream applied to intergluteal cleft. Old scarring to coccyx.
[2022-06-24 04:00] VITALS: BP 107/67; PULSE 105; RESP 18; TEMP 36.6; O2SAT 99
[2022-06-24] MEDS: ACETAMINOPHEN 325 MG TABLET 650 MG PO (05:06)
[2022-06-24 05:24] LABS: Add Manual Diff / Slide Review NO; Basophils Absolute Auto 0 /uL (0-100); Basophils Percent Auto 0.2 % (0-2); Eosinophils Absolute Auto 200 /uL (0-450); Eosinophils Percent Auto 1.5 % (2-4); Hematocrit 25.2 % (36-46); Hemoglobin 8.3 g/dL (12.0-16.0); Lymphocytes Absolute Auto 1700 /uL (1100-4500); Mean Corpuscular HGB Conc 32.8 % (30-36); Mean Corpuscular Hemoglobin 26.5 PG (26-34); Mean Corpuscular Volume 80.9 fL (80-100); Monocytes Absolute Auto 500 /uL (0-900); Monocytes Percent Auto 4.9 % (3-14); Neutrophils Absolute Auto 8700 /uL (1500-7000); Neutrophils Percent Auto 78.4 % (50-75); Platelet Count 587 X10^3/uL (150-400); Red Blood Cell Count 3.11 X10^6/uL (4.0-5.2); Red Cell Distribution Width 22.8 % (11.6-14.8)
[2022-06-24 05:31] LABS: BUN Creatinine Ratio 12.8 (6-22); Blood Urea Nitrogen 5 mg/dL (7-17); Calcium 7.2 mg/dL (8.4-10.2); Carbon Dioxide 19 mmol/L (22-32); Chloride 115 mmol/L (98-107); Estimated Glomerular Filt Rate > 60 mL/min (>60); Glucose 190 mg/dL (70-100); HEMOLYSIS 18 (0-50); Potassium 3.1 mmol/L (3.4-5.1); Sodium 138 mmol/L (137-145)
--- NOTE | 2022-06-24 06:39 | PC.NURSE ---
End of shift note. Patient arrived from ED last night and admitted to [facility] as acute care for hypotension and UTI. Patient is AAOX4, c/o back pain that improved after being given tramadol. Telemetry has been ST 100-105. Extremely weak, needs one assist to BSC. Has had three large soft formed odorous BMs with urine mixed. Admission skin check abnormal, intergluteal cleft erythema, with skin tears, poor hygiene noted with smeared stool. Cleansed and applied barrier cream. Blood pressures have been WNL since admit. Plan is to treat with antibiotics. Patient has an patent RT IJ used for am labs. Potassium low on am labs, notified Dr. Royal, see new order for magnesium add on.
[2022-06-24 06:50] LABS: Magnesium 1.7 mg/dL (1.6-2.3)
[2022-06-24 07:00] VITALS: O2SAT 95
[2022-06-24 07:07] LABS: Anisocytosis 2+
[2022-06-24] MEDS: INSULIN LISPRO 100 UNIT/ML 3ML VIAL SUBCUT ×2 (07:52→12:05)
[2022-06-24 08:00] VITALS: BP 110/68; PULSE 96; RESP 15; TEMP 36.3; O2SAT 98
[2022-06-24] MEDS: LIPASE/PROTEASE/AMYLASE 5/17/24 CAP PO ×2 (08:14→12:05)
[2022-06-24] MEDS: MIDODRINE HCL 5 MG TABLET 10 MG PO (08:14)
[2022-06-24] MEDS: INSULIN GLARGINE 100 UNIT/ML 3ML PEN 10 UNIT SUBCUT (08:15)
[2022-06-24] MEDS: VANCOMYCIN 125 MG CAPSULE PO (08:15)
[2022-06-24] MEDS: APIXABAN 5 MG TABLET PO (08:15)
[2022-06-24] MEDS: GABAPENTIN 400 MG CAPSULE 800 MG PO ×2 (08:15→13:15)
[2022-06-24] MEDS: BUSPIRONE 5 MG TABLET 30 MG PO (08:15)
--- NOTE | 2022-06-24 09:10 | P.PN_ITS ---
Subjective Subjective Date Patient Seen: 06/24/22 Time Patient Seen: 09:00 Interval history: Patient says she is in pain and having anxiety and would like to have increased dose of something to help. Exam Vital Signs (past 8 hours): - 06/24/22 04:00 06/24/22 07:00 06/24/22 07:00 Temperature 97.9 F Pulse Rate 105 H Respiratory Rate 18 Blood Pressure 107/67 Pulse Oximetry 99 95 Oxygen Delivery Method Room Air Room Air Oxygen Flow Rate 06/24/22 08:00 Temperature 97.4 F L Pulse Rate 96 H Respiratory Rate 15 Blood Pressure 110/68 Pulse Oximetry 98 Oxygen Delivery Method Oxygen Flow Rate 0 Oxygen Delivery Method Room Air Oxygen Flow Rate 0 Narrative Exam Narrative: GEN: chronically ill appearing, cachectic HEENT: moist mucous membranes, PERRL NECK: trachea midline, no JVD PULM: clear bilaterally with no wheezes, rhonchi, rales CV: tachycardic, no murmurs ABD: soft, nontender, nondistended, no organomegaly, normal bowel sounds EXT: warm, well perfused with no edema NEURO: awake, alert, oriented, no focal deficits noted Objective Labs Result Diagrams: 06/24/22 05:10 06/24/22 05:10 Labs: Laboratory Results - last 24 hr 06/23/22 06/23/22 06/23/22 12:45 12:45 12:45 WBC 7.9 RBC 3.63 L Hgb 9.6 L Hct 30.0 L MCV 82.5 MCH 26.3 MCHC 31.9 RDW 22.5 H Plt Count 636 H Neut % (Auto) 64.7 Lymph % (Auto) 27.2 [place] % (Auto) 5.4 Eos % (Auto) 2.0 Baso % (Auto) 0.7 Neut # (Auto) 5100 Lymph # (Auto) 2200 [place] # (Auto) 400 Eos # (Auto) 200 Baso # (Auto) 100 RBC Morphology Not Reportable Poikilocytosis 1+ H Anisocytosis 2+ H VBG pH VBG pCO2 VBG pO2 VBG HCO3 VBG Total CO2 VBG O2 Saturation VBG Base Excess Sodium 139 Potassium 3.4 Chloride 114 H Carbon Dioxide 17 L BUN 10 Creatinine 0.65 Estimated GFR > 60 BUN/Creatinine Ratio 15.4 Glucose 228 H Lactate 0.9 Calcium 7.6 L Magnesium Total Bilirubin 0.2 AST 17 ALT 19 Alkaline Phosphatase 187 H Total Protein 5.9 L Albumin 2.7 L Globulin 3.2 Albumin/Globulin Ratio 0.8 L Lipase < 10 L Procalcitonin 5.54 H Urine RBC Urine WBC Ur Squamous Epith Cells Urine Bacteria Urine Yeast Ur Culture Indicated? SARS-CoV-2 (PCR) 06/23/22 06/23/22 06/23/22 12:47 13:25 23:10 WBC RBC Hgb Hct MCV MCH MCHC RDW Plt Count Neut % (Auto) Lymph % (Auto) [place] % (Auto) Eos % (Auto) Baso % (Auto) Neut # (Auto) Lymph # (Auto) [place] # (Auto) Eos # (Auto) Baso # (Auto) RBC Morphology Poikilocytosis Anisocytosis VBG pH VBG pCO2 VBG pO2 VBG HCO3 VBG Total CO2 VBG O2 Saturation VBG Base Excess Sodium 141 Potassium 3.2 L Chloride 120 H Carbon Dioxide 17 L BUN 6 L Creatinine 0.39 L Estimated GFR > 60 BUN/Creatinine Ratio 15.4 Glucose 131 H Lactate Calcium 6.8 L Magnesium Total Bilirubin 0.2 AST 15 ALT 15 Alkaline Phosphatase 138 H Total Protein 5.2 L Albumin 2.2 L Globulin 3.0 Albumin/Globulin Ratio 0.7 L Lipase Procalcitonin Urine RBC 1-5/hpf D Urine WBC 10-30/hpf H Ur Squamous Epith Cells 5-10 /hpf H Urine Bacteria Many (>30) H Urine Yeast 1-5/hpf H Ur Culture Indicated? Specimen cultured SARS-CoV-2 (PCR) Negative 06/23/22 06/24/22 06/24/22 23:10 05:10 05:10 WBC 11.0 RBC 3.11 L Hgb 8.3 L Hct 25.2 L MCV 80.9 MCH 26.5 MCHC 32.8 RDW 22.8 H Plt Count 587 H Neut % (Auto) 78.4 H Lymph % (Auto) 15.0 L [place] % (Auto) 4.9 Eos % (Auto) 1.5 L Baso % (Auto) 0.2 Neut # (Auto) 8700 H Lymph # (Auto) 1700 [place] # (Auto) 500 Eos # (Auto) 200 Baso # (Auto) 0 RBC Morphology Not Reportable Poikilocytosis Anisocytosis 2+ H VBG pH 7.27 L VBG pCO2 38.3 L VBG pO2 42 VBG HCO3 18 L VBG Total CO2 19 L VBG O2 Saturation 71 VBG Base Excess -10.0 L Sodium 138 Potassium 3.1 L Chloride 115 H Carbon Dioxide 19 L BUN 5 L Creatinine 0.39 L Estimated GFR > 60 BUN/Creatinine Ratio 12.8 Glucose 190 H Lactate Calcium 7.2 L Magnesium Total Bilirubin AST ALT Alkaline Phosphatase Total Protein Albumin Globulin Albumin/Globulin Ratio Lipase Procalcitonin Urine RBC Urine WBC Ur Squamous Epith Cells Urine Bacteria Urine Yeast Ur Culture Indicated? SARS-CoV-2 (PCR) 06/24/22 05:10 WBC RBC Hgb Hct MCV MCH MCHC RDW Plt Count Neut % (Auto) Lymph % (Auto) [place] % (Auto) Eos % (Auto) Baso % (Auto) Neut # (Auto) Lymph # (Auto) [place] # (Auto) Eos # (Auto) Baso # (Auto) RBC Morphology Poikilocytosis Anisocytosis VBG pH VBG pCO2 VBG pO2 VBG HCO3 VBG Total CO2 VBG O2 Saturation VBG Base Excess Sodium Potassium Chloride Carbon Dioxide BUN Creatinine Estimated GFR BUN/Creatinine Ratio Glucose Lactate Calcium Magnesium 1.7 Total Bilirubin AST ALT Alkaline Phosphatase Total Protein Albumin Globulin Albumin/Globulin Ratio Lipase Procalcitonin Urine RBC Urine WBC Ur Squamous Epith Cells Urine Bacteria Urine Yeast Ur Culture Indicated? SARS-CoV-2 (PCR) [facility] Medical History Acute CVA (cerebrovascular accident) Alcohol intoxication Chronic atrial fibrillation with RVR Closed hip fracture COVID DKA (diabetic ketoacidoses) DKA (diabetic ketoacidosis) Fibromyalgia Gastroesophageal reflux disease Insulin dependent diabetes mellitus Lupus Osteoporosis Surgical History History of hip surgery Presence of pancreatic duct stent Family History Mother Diabetes mellitus Congestive heart failure Pancreatic cancer Father Diabetes mellitus Brother Diabetes mellitus Pancreatitis Sister Drug overdose Social History household members: family Smoking Status: Current every day smoker alcohol intake: never Assessment & Plan Assessment & Plan narrative: 1. UTI with orthostatic hypotension presumed cause of falls -patient with recent admission to [facility] for septic shock and supposed renal abscess -remains with elevated procal >5, though previously >200, also with positive UA -per patient she remains on abx, not sure which -requested records -for now ordered for ceftriaxone given cultures with history of parker-sensitive e. coli -f/u blood and urine cultures -CT abdomen showing improving findings from previous CT last month 2. Type 1 DM, with frequent hx of DKA -currently not with DKA with normal gap, blood sugar <200 -very brittle diabetic -continue lantus and insulin sliding scale 3. Paroxysmal afib -continue apixaban 4. History of C diff colitis -had severe C. diff a few months ago and is high risk for recurrence, states ID specialist at recommended she go on oral vanco if taking antibiotic -not having diarrhea at this time -continue p.o. vancomycin 125 mg b.i.d. for C. diff suppressive prophylaxis 5. Severe protein-calorie malnutrition -this is adversely affecting healing times of all the patient's acute and chronic conditions -BMI 18.1 6. Documented orthostatic hypotension -states she is taking midodrine TID -continue midodrine 10mg TID CODE: DNR Proxy: Jhonny Johnson, family I have utilized all available resources to reconcile the patient's home medications Time Spent With Patient Critical Care time: I spent a total of [] minutes of critical care time on this patient's care today; this time is exclusive of procedural time. Quality VTE Deep Vein Thrombosis/Pulmonary Embolism Present on Admission: No
[2022-06-24] MEDS: POTASSIUM CHLORIDE 20 MEQ TAB 40 MEQ PO ×2 (09:42→15:18)
[2022-06-24] MEDS: MAGNESIUM CHLORIDE 64 MG TABLET 128 MG PO (09:42)
[2022-06-24] MEDS: HYDROCODONE/ACET 5/325 TABLET 1 TAB PO (10:30)
[2022-06-24] MEDS: MORPHINE 10 MG/0.5 ML ORAL SYRINGE PO ×3 (11:06→14:33)
[2022-06-24] MEDS: LORazepam 2 MG/ML ORAL SOL 1 MG PO ×3 (11:07→14:32)
--- NOTE | 2022-06-24 11:15 | PC.RNWOUND ---
Patient resting in bed watching tv, turns to right side independently. Patient says sacral scar is from a previous pressure injury which has healed. There are several small scattered open areas to the inner superior gluteal cleft. Presence of barrier cream makes visualization of this area challenging, but they appear to be partial-thickness moisture lesions from incontinent associated dermatitis. Patient says, I had really bad diarrhea and my skin got sore from it and it still hasn't healed all the way. Allevyn dressing is placed to the upper gluteal cleft and sacral area for protection and padding to this vulnerable area. Patient tolerates cares well, decides to stay on right side for awhile for change of position.
--- NOTE | 2022-06-24 12:14 | CM.DANOTE ---
Addendum entered by TERA Parker 06/24/22 13:43: ADD: [facility] Tuesday06.27.22. Telma at [facility] will attempt contact w/patient's dtr Hollie this afternoon. Telma updated that expected discharge is tomorrow 06.25.22, home w/family JW Original Note: Initial DCP Assessment Note Pt is a 46 yo female, resident of [facility], presents with chest pain and shortness of breath. Patient is well known to this CM team after 6 ER and 6 medical admissions in 2021. H+P: complicated PMH incluiding Type 1 dm, with multiple admits for DKA, possible lupus, hx cva, afib and recent admit for septic shock who presents with weakness and falls. PCP: Dr Jhonny Evans ([facility] [place]) Payer: [facility] Reviewed chart, pt discussed in multidisciplinary rounds this morning. This CLINICAL OPERATIONS SPECIALIST suggests a care conference with patient and her family before discharge, to review goals of care and discuss barriers to proper care at home (?) Met w/patient to discuss arranging a care conference; patient calls dtr Star- dtr cannot come to the hospital but is willing to be a part of care conference by phone. Patient explains dtr moved out two weeks ago and got a manager maritime job at the [employer], so dtr is not available to be patient's caregiver (as patient had hoped) and patient now hoping to get someone else to help her. Patient still lives with sister and nephew, unsure from patient's report how much these family members assist (?) This CLINICAL OPERATIONS SPECIALIST, LUTHER Avalos and Dr López review goals of care with patient and discuss hospice/comfort pathway. Patient interested and agrees she would like to be DNR and stay at home rather than readmit to the hospital, patient agrees comfort focused care aligns with her goals. Patient expected to discharge back home tomorrow. JUAN Mckinnon, has kindly [facility]ed [facility]errals [facility] to inquire about availability. Following closely to assist in coordination of this DCP TERA Gonzales Discharge Planning/Care Management Advanced directive, confirm from FAMILY Start: 06/24/22 01:01 Freq: Q24H Status: Active Protocol: Document 06/24/22 01:01 GABI (Rec: 06/24/22 02:37 JS [id number]) Advance Directive, confirm on record Time 02:37 Person contacted patient Copy received No CM Discharge Assessment Start: 06/24/22 11:54 Freq: Status: Active Protocol: Document 06/24/22 11:54 BRANDAN (Rec: 06/24/22 12:14 BRANDAN [id number]) Discharge Planning Assessment Assigned Door To Door Sales Representative TERA Kingsley DPOA/Assigned Designee Name Nahun Portillo dtr Contact Information [phone] Advance Directives? Yes: DNR/DNI Advance Directives on File Yes: POLST History Provided By Patient,Family Member,Medical Record Has Patient been admitted in last 30 Yes days? Comment DIS IN 05.31.22 ER 06.10.22 ER 06.17.22 Prior Living Arrangements House Household Members family Type of transporation used prior to Relies on Others admit Independent with ADL's No Is patient alert and oriented? Yes: Lethargy and grogginess is baseline Needs Assistance With Bathing,Grooming,Meal Prep, Toileting,Managing Medications ,Home Chores / Shopping Comment Home w/family; sister, nephew and Hospice services Discharge Plan Hospice Transportation Arrangement Family vs NED transport vs voucher. This CLINICAL OPERATIONS SPECIALIST unsure if patient has NED transport services, but may have [place] transport services available to her Referrals Initiated Other Additional Comment Referral completed to [facility]; patient has no preference on Hospice agency
--- NOTE | 2022-06-24 14:51 | P.DS_ITS ---
History of Present Illness History of Present Illness Date Patient Seen: 06/24/22 Time Patient Seen: 09:00 Chief complaint: Chest Pain, SOB Narrative: Ms. Garnica is a 46W with complicated PMH incluiding Type 1 dm, with multiple admits for DKA, possible lupus, hx cva, afib and recent admit for septic shock who presents with weakness and falls. She states she started feeling bad last night and felt dizzy and feel on her right side. She did not hit her head or lose consciousness. She continued to feel poorly so came to the hospital primarily with weakness and dizziness. She has no fevers. She has felt chills. No nausea, vomiting, diarrhea. No chest pain or shortness of breath. She states she was recently discharged from [facility] where she had septic shock and a renal abscess. She states she was discharged on oral antibiotics, she can't remember which, and still has about a week of medication to take. In the ED workup was done, vitals notable t 97.5, hr 100s, blood pressure 110s, dropped to 80s on standing. Labs notable for WBC 7.9, hgb 9.6 plts 636. Creatinine 0.65. Lactate 0.9. Procal 5.54. UA showed 10-30 wbc, many bacteria. Difficult IV access so central line was placed. Chest xray and hip xray showed no acute process. She had CT abdomen ordered and pending. She was ordered for antibiotics and admitted for further treatment. Discharge Providers Provider Date of admission: 06/23/22 23:31 Discharge Date: 06/24/22 Primary care physician: Jhonny Evans PA-C Consults: 06/24/22 00:36 Consult to Physical Therapy Evaluate & Treat Comment: Physician Instructions: Evaluate and Treat 06/24/22 06:54 Consult to Inpatient Wound Care Nurse Routine Comment: Reason for consultation: Intergluteal cleft erythema with skin tears, poor nutrition, DM I. Has provider been notified: No 06/24/22 10:51 Consult to Discharge Planning Routine Comment: Consult to Hospice Referral Urgent Comment: Discharge provider: Colton López DO Summary Hospital Course Discharge Diagnosis: 1. Possible UTI with orthostatic hypotension presumed cause of falls 2. Type 1 DM, with frequent hx of DKA 3. Paroxysmal afib 4. History of C diff colitis 5. Severe protein-calorie malnutrition 6. Documented orthostatic hypotension Hospital Course: Patient admitted for recurrent falls and possible UTI. UA with pyuria but patient denied symptoms. We discussed patient's goals for this hospitalization given that she has had multiple hospitalizations continues to decline in health.? She stated she to be out of pain and anxiety.? I introduced hospice as a viable option for her to prevent her from coming to the hospital and providing great comfort care measures at home.? She was interested in this.? Her daughter was also contacted about hospice and she is also in support.? Patient told that to be full code on hospice incongruent with the goals of hospice so she agreed it would be best to be DNR.? A POLST form was filled out reflecting comfort care.? Hospice referral was made and patient discharged on fentanyl patch and po ativan liquid for anxiety until hospice can open. Time Spent with Patient Time spent: Greater than 30 minutes Exam Vital Signs (past 8 hours): - 06/24/22 07:00 06/24/22 07:00 06/24/22 08:00 Temperature 97.4 F L Pulse Rate 96 H Respiratory Rate 15 Blood Pressure 110/68 Pulse Oximetry 95 98 Oxygen Delivery Method Room Air Room Air Oxygen Flow Rate 0 Oxygen Delivery Method Room Air Oxygen Flow Rate 0 Narrative Exam Narrative: GEN: chronically ill appearing, cachectic HEENT: moist mucous membranes, PERRL NECK: trachea midline, no JVD PULM: clear bilaterally with no wheezes, rhonchi, rales CV: tachycardic, no murmurs ABD: soft, nontender, nondistended, no organomegaly, normal bowel sounds EXT: warm, well perfused with no edema NEURO: awake, alert, oriented, no focal deficits noted Objective Labs Result Diagrams: 06/24/22 05:10 06/24/22 05:10 Labs: Laboratory Results - last 24 hr 06/23/22 06/23/22 06/24/22 23:10 23:10 05:10 WBC 11.0 RBC 3.11 L Hgb 8.3 L Hct 25.2 L MCV 80.9 MCH 26.5 MCHC 32.8 RDW 22.8 H Plt Count 587 H Neut % (Auto) 78.4 H Lymph % (Auto) 15.0 L Nye % (Auto) 4.9 Eos % (Auto) 1.5 L Baso % (Auto) 0.2 Neut # (Auto) 8700 H Lymph # (Auto) 1700 Nye # (Auto) 500 Eos # (Auto) 200 Baso # (Auto) 0 RBC Morphology Not Reportable Anisocytosis 2+ H VBG pH 7.27 L VBG pCO2 38.3 L VBG pO2 42 VBG HCO3 18 L VBG Total CO2 19 L VBG O2 Saturation 71 VBG Base Excess -10.0 L Sodium 141 Potassium 3.2 L Chloride 120 H Carbon Dioxide 17 L BUN 6 L Creatinine 0.39 L Estimated GFR > 60 BUN/Creatinine Ratio 15.4 Glucose 131 H Calcium 6.8 L Magnesium Total Bilirubin 0.2 AST 15 ALT 15 Alkaline Phosphatase 138 H Total Protein 5.2 L Albumin 2.2 L Globulin 3.0 Albumin/Globulin Ratio 0.7 L 06/24/22 06/24/22 05:10 05:10 WBC RBC Hgb Hct MCV MCH MCHC RDW Plt Count Neut % (Auto) Lymph % (Auto) Nye % (Auto) Eos % (Auto) Baso % (Auto) Neut # (Auto) Lymph # (Auto) Nye # (Auto) Eos # (Auto) Baso # (Auto) RBC Morphology Anisocytosis VBG pH VBG pCO2 VBG pO2 VBG HCO3 VBG Total CO2 VBG O2 Saturation VBG Base Excess Sodium 138 Potassium 3.1 L Chloride 115 H Carbon Dioxide 19 L BUN 5 L Creatinine 0.39 L Estimated GFR > 60 BUN/Creatinine Ratio 12.8 Glucose 190 H Calcium 7.2 L Magnesium 1.7 Total Bilirubin AST ALT Alkaline Phosphatase Total Protein Albumin Globulin Albumin/Globulin Ratio [facility] Medical History Acute CVA (cerebrovascular accident) Alcohol intoxication Chronic atrial fibrillation with RVR Closed hip fracture COVID DKA (diabetic ketoacidoses) DKA (diabetic ketoacidosis) Fibromyalgia Gastroesophageal reflux disease Insulin dependent diabetes mellitus Lupus Osteoporosis Surgical History History of hip surgery Presence of pancreatic duct stent Family History Mother Diabetes mellitus Congestive heart failure Pancreatic cancer Father Diabetes mellitus Brother Diabetes mellitus Pancreatitis Sister Drug overdose Social History household members: family Smoking Status: Current every day smoker alcohol intake: never Discharge Plan Discharge Plan Patient Disposition: Hospice - Home Provider Discharge Comment: Hospice will now manage your care at home so you do not need to return to the hospital. Discharge orders & Medications Prescriptions: New lorazepam [Lorazepam Intensol] 2 mg/mL Concentrate 1 mg PO Q1HR PRN (Reason: Anxiety) Qty: 30 0RF fentanyl 25 mcg/hr patch 72 hour 1 patch transdermal Q72H Qty: 5 0RF Continued insulin aspart U-100 [Novolog Flexpen U-100 Insulin] 100 unit/mL Insulin Pen 0 unit Sub-Q AC Qty: 3 0RF Rx Instructions: 1-3 UNITS TID buspirone 10 mg Tablet 3 tab PO DAILY cyclobenzaprine 10 mg Tablet 10 mg PO TID PRN (Reason: pain) insulin glargine 100 unit/mL (3 mL) insulin pen 10 unit SUBCUT DAILY Qty: 0 0RF Label Comments: Takes 10 units at night gabapentin 400 mg Capsule 800 mg PO QID midodrine 5 mg Tablet 10 mg PO TID Qty: 90 0RF ascorbic acid (vitamin C) [Vitamin C] 500 mg capsule, extended release 500 mg PO DAILY Qty: 30 0RF loratadine 10 mg tablet 10 mg PO DAILY PRN (Reason: Allergy Symptoms) ondansetron HCl 4 mg tablet 4 mg PO TID PRN (Reason: Nausea) Label Comments: TAKE 1 TABLET BY MOUTH THREE TIMES DAILY Creon 24,000-76,000 -120,000 unit Capsule,Delayed Release(Dr/Ec) See Rx Instructions .ROUTE .COMPLEX Rx Instructions: patient says they take 800un TID, 2400un total acetaminophen 325 mg Tablet 650 mg PO Q6HR PRN (Reason: Headache) Qty: 60 0RF melatonin 3 mg Tablet 3 mg PO BEDTIME Qty: 30 0RF pseudoephedrine HCl 30 mg Tablet 30 mg PO Q6HR PRN (Reason: Congestion/ sinus headache) Qty: 30 0RF Discontinued Eliquis 5 mg Tablet 5 mg PO DAILY ferrous sulfate 325 mg (65 mg iron) tablet 325 mg PO DAILY Qty: 30 0RF Follow up/Referrals: Jhonny Evans PA-C [Primary Care Provider] - Discharge Data Primary Care Provider: Jhonny Evans Quality VTE Deep Vein Thrombosis/Pulmonary Embolism Present on Admission: No
--- NOTE | 2022-06-24 15:03 | PT-IP ANOTE ---
per rounds: Pt will be going to hospice care and to d/c PT eval.
--- NOTE | 2022-06-24 15:32 | CM.DPNOTE ---
DCP: Patient is to be discharged home today, and will need transportation. She is Medicaid. Confirmed with nursing that patient is on no precautions, no oxygen. Faxed over the Medicaid transport form. Called and confirmed that it was received, Cat at [facility] transport is to be calling back with a time of cotton picker operator. As soon as time is noted, will update nursing. P: Patient is discharging home today, awaiting call back from Medicaid transport as to time of cotton picker operator. Laya Duarte RN/Heat Treat Operator
== END 2022-06-24 16:00 | disposition hospice, home (50) | DRG 312 ==
LOC: ED 23:12 → ICU 06-24 12:40 → AC 06-24 12:48 → ICU 06-24 12:48
PROVIDERS: Emergency Medicine; Admitting Provider Internal Medicine; Emergency Provider Emergency Medicine; PCP Physician Assistant; Referring Provider Emergency Medicine; Visit Provider Internal Medicine
DX: I95.1 Orthostatic hypotension (principal); E43 Unspecified severe protein-calorie malnutrition; N39.0 Urinary tract infection, site not specified; Z68.1 Body mass index [BMI] 19.9 or less, adult; E10.9 Type 1 diabetes mellitus without complications; I48.0 Paroxysmal atrial fibrillation; R62.7 Adult failure to thrive; F17.210 Nicotine dependence, cigarettes, uncomplicated; Z66 Do not resuscitate; Z51.5 Encounter for palliative care; Z86.19 Personal history of other infectious and parasitic diseases; Z79.01 Long term (current) use of anticoagulants; Z91.81 History of falling; Z20.822 Contact with and (suspected) exposure to COVID-19
CPT/HCPCS: 36415; 36556; 71045; 73502; 74177; 80048; 80053; 81003; 81015; 82805; 82962; 83605; 83690; 83735; 84145; 85025; 87040; 87077; 87086; 87186; 87635; 93005; 96365; 96375; 99284; C9803; A9270; J0696; J1815; J1885; Q9967

== ENCOUNTER 2022-06-25 13:35 | Emergency (ER) | payer MEDICAID, OTHER, SELFPAY ==
[2022-06-24 00:49] VITALS: BMI 18.0
[2022-06-25 14:17] VITALS: BP 101/68; PULSE 102; RESP 18; TEMP 36; O2SAT 100
--- NOTE | 2022-06-25 16:46 | PC.NURSE ---
@ 1628, pt called. Not in waiting room. At 1645 pt returned.
--- NOTE | 2022-06-25 17:15 | ED.RECABL ---
HPI - Recheck/Abnormal Lab/Rx General Chief Complaint: Recheck/Abnormal Lab/Rx Stated Complaint: States unsafe discharge yesterday from [facility] Time Seen by Provider: 06/25/22 17:02 Source: patient Mode of arrival: Wheelchair History of Present Illness HPI narrative: Patient is a 46-year-old female. Was discharged after an inpatient stay at this hospital yesterday. She was discharged with a consult for her to be evaluated by hospice given her chronic medical issues. Somewhat difficult to ascertain as to why she is here of hurts several different stories to include that the hospice nurse told her to come back to the emergency department so that she could be admitted because it was ?easier ?to be placed in a retirement facility after being admitted to the hospital. She states she is here because she feels lightheaded and has back pain which is not new. Family members state that is because there is no one at home to take care of her even though she does live with other family members. According to reports from social work when she was evaluated during an inpatient it was found that she did not meet criteria for a retirement facility. I do not know the exact specifications of this. There was also some reports was that her insurance would not cover retirement facility. Patient reports no new symptoms today. Related Data Home Medications Medication Instructions Recorded Confirmed buspirone 10 mg tablet 3 tab PO DAILY 12/08/18 06/24/22 cyclobenzaprine 10 mg tablet 10 mg PO TID PRN pain 12/08/18 06/24/22 [id number] See Rx Instructions .Route .COMPLEX 02/14/22 06/24/22 24,000-76,000-120,000 unit capsule,delayed rel (Creon) ondansetron HCl 4 mg tablet 4 mg PO TID PRN Nausea 02/14/22 06/24/22 gabapentin 400 mg capsule 800 mg PO QID 05/31/22 06/24/22 loratadine 10 mg tablet 10 mg PO DAILY PRN Allergy Symptoms 06/24/22 06/24/22 Previous Rx's Medication Instructions Recorded insulin aspart U-100 100 unit/mL 0 unit (0 mL) SUBCUT AC #3 units 02/12/18 (3 mL) subcutaneous pen (Novolog Flexpen U-100 Insulin aspart) insulin glargine 100 unit/mL (3 10 unit (0.1 mL) SUBCUT DAILY #0 mL 12/09/21 mL) subcutaneous pen acetaminophen 325 mg tablet 650 mg PO Q6HR PRN Headache #60 02/19/22 tabs melatonin 3 mg tablet 3 mg PO BEDTIME #30 tabs 02/19/22 pseudoephedrine HCl 30 mg tablet 30 mg PO Q6HR PRN Congestion/ 02/19/22 sinus headache #30 tabs ascorbic acid (vitamin C) 500 mg 500 mg PO DAILY #30 caps 06/06/22 capsule,extended release (Vitamin C) midodrine 5 mg tablet 10 mg PO TID #90 tabs 06/06/22 fentanyl 25 mcg/hr transdermal 1 patch transdermal Q72H #5 ea 06/24/22 patch lorazepam 2 mg/mL oral concentrate 1 mg (0.5 mL) PO Q1HR PRN Anxiety 06/24/22 (Lorazepam Intensol) #30 mL Allergies Allergy/AdvReac Type Severity Reaction Status Date / Time amitriptyline Allergy Intermediate Verified 06/17/22 16:16 sulfasalazine [SULFASALAZINE] Allergy Mild PANCREATITI Verified 06/17/22 16:16 S trazodone AdvReac Intermediate HEART Verified 06/17/22 16:16 PALPITATIONS Review of Systems Review of Systems ROS Unobtainable: All systems reviewed & are unremarkable except as noted in HPI and below Patient History Medical History Acute CVA (cerebrovascular accident) Alcohol intoxication Chronic atrial fibrillation with RVR Closed hip fracture COVID DKA (diabetic ketoacidoses) DKA (diabetic ketoacidosis) Fibromyalgia Gastroesophageal reflux disease Insulin dependent diabetes mellitus Lupus Osteoporosis Surgical History History of hip surgery Presence of pancreatic duct stent Family History Mother Diabetes mellitus Congestive heart failure Pancreatic cancer Father Diabetes mellitus Brother Diabetes mellitus Pancreatitis Sister Drug overdose Social History household members: family Smoking Status: Current every day smoker alcohol intake: never Smoking Status: Current every day smoker alcohol intake frequency: holidays/special occasions only Substance Use Type: does not use and heroin Exam Initial Vital Signs Initial Vital Signs: Vital Signs Temperature 96.8 F L 10/07/22 14:17 Pulse Rate 102 H 06/25/22 14:17 Respiratory Rate 18 06/25/22 14:17 Blood Pressure 101/68 06/25/22 14:17 Pulse Oximetry 100 06/25/22 14:17 Oxygen Delivery Method 06/25/22 14:17 Const General: cooperative, frail appearing and No ill appearing Resp Effort & Inspection: normal respiratory effort Cardio Rate: regular rate Skin General: no rashes or lesions noted Neuro General: patient alert, patient awake, patient oriented x3 and moves all extremities Extrem General: normal to inspection and capillary refill normal Course Orders Ordered: ED Orders 06/25/22 14:20 Consult to GLOBAL SUPPLY CHAIN DIRECTOR - Dosier Operator Stat Vital Signs Vital signs: Vital Signs - 8 hr 06/25/22 14:17 Temperature 96.8 F L Pulse Rate 102 H Respiratory Rate 18 Blood Pressure 101/68 Pulse Oximetry 100 Oxygen Delivery Method Room Air MDM - Recheck/Abnormal Lab/Rx MDM Narrative Medical decision making narrative: Patient was seen by social work here in the emergency department. There is no indication for admission to the hospital today. All of her presenting symptoms are not new. She has referral for her to see hospice. Had a long discussion with her and other family members at bedside. We did discuss the unfortunate circumstance of not having a diagnosis that would cause her to be admitted and how this limits the ability to find placement from the hospital. We discussed hospice and what the skin at for her. Will discharge patient home with return precautions. Discharge Plan Departure Patient Disposition: Home Clinical Impression: Lightheadedness Instructions: DI for Dizziness-Nonvertigo Activity Restrictions/Additional Instructions: Continue to take all of your medications as directed. On Tuesday contact your primary doctor and also contact hospice for follow-up. Return to the emergency department for any new symptoms. Prescriptions: No Action insulin aspart U-100 [Novolog Flexpen U-100 Insulin] 100 unit/mL Insulin Pen 0 unit Sub-Q AC Qty: 3 0RF Rx Instructions: 1-3 UNITS TID buspirone 10 mg Tablet 3 tab PO DAILY cyclobenzaprine 10 mg Tablet 10 mg PO TID PRN (Reason: pain) insulin glargine 100 unit/mL (3 mL) insulin pen 10 unit SUBCUT DAILY Qty: 0 0RF Label Comments: Takes 10 units at night gabapentin 400 mg Capsule 800 mg PO QID midodrine 5 mg Tablet 10 mg PO TID Qty: 90 0RF ascorbic acid (vitamin C) [Vitamin C] 500 mg capsule, extended release 500 mg PO DAILY Qty: 30 0RF loratadine 10 mg tablet 10 mg PO DAILY PRN (Reason: Allergy Symptoms) lorazepam [Lorazepam Intensol] 2 mg/mL Concentrate 1 mg PO Q1HR PRN (Reason: Anxiety) Qty: 30 0RF fentanyl 25 mcg/hr patch 72 hour 1 patch transdermal Q72H Qty: 5 0RF ondansetron HCl 4 mg tablet 4 mg PO TID PRN (Reason: Nausea) Label Comments: TAKE 1 TABLET BY MOUTH THREE TIMES DAILY Creon 24,000-76,000 -120,000 unit Capsule,Delayed Release(Dr/Ec) See Rx Instructions .ROUTE .COMPLEX Rx Instructions: patient says they take 800un TID, 2400un total acetaminophen 325 mg Tablet 650 mg PO Q6HR PRN (Reason: Headache) Qty: 60 0RF melatonin 3 mg Tablet 3 mg PO BEDTIME Qty: 30 0RF pseudoephedrine HCl 30 mg Tablet 30 mg PO Q6HR PRN (Reason: Congestion/ sinus headache) Qty: 30 0RF Referrals: Jhonny Evans PA-C [Primary Care Provider] -
[2022-06-25 18:47] VITALS: BP 138/91; PULSE 101; RESP 18; O2SAT 100
--- NOTE | 2022-06-25 18:53 | CM.SWNOTE ---
INSTRUMENTATION ENGINEERING TECHNICIAN/DCP Note Patient is 46 y/o female who presented to the ED today with cousin due to concern for pain and dizziness. Patient was discharged from ICU yesterday with plan for home with Hospice. Patient had goal of care conversation with daughter via phone, provider, RN and INSTRUMENTATION ENGINEERING TECHNICIAN regarding this and patient signed POLST form. Patient is DNR. [facility] Patient has PCP Jhonny Evans, patient has Medicaid and [facility]. Patient has hx of 6 ED visits and 6 Medical admissions this year. Patient has hx of Type 1 diabetes, DKA, possible Lupus, hx of CVA, AFib, septic shock, weakness and falls. Patient has [facility] application in process and patient's insurance is not accepted by SNF rehabs per previous EMR DCP notes. Patient has hx of HH referral with [facility]. Patient presents as A/Ox3 and presents as fatigued and lethargic at baseline. Patient resides at home with sister and nephew, patient's daughter used to be her caregiver and recently moved out. Patient endorses Patient endorses she uses a FWW at home and reports that she gets dizzy at times and needs to sit down but sometimes falls. Patient endorses interest in SNF rehab and INSTRUMENTATION ENGINEERING TECHNICIAN explains to patient and cousin that patient's insurance does not cover SNF rehab. INSTRUMENTATION ENGINEERING TECHNICIAN calls [facility] to confirm referral, referral is confirmed but it is not documented if Hospice has reached out to family. Patient's cousin confirms that hospice will bring patient wheelchair tomorrow and start intake appt on Tuesday. INSTRUMENTATION ENGINEERING TECHNICIAN faxes H&P from this ED visit to [facility] Patient had [facility] referral upon d/c to home on 06/01/22. Per ED provider Dr. Mendes, patient is medically clear for d/c. Patient endorses she wants go home. Plan: Patient to d/c to home with cousin, [facility] f/u with patient to initiate services. EBONY Cross
--- NOTE | 2022-06-29 07:53 | PC.NURSE ---
lab value report call receieved at 0738 am urine culture: positive for vancomycin resistant enterococcus faecium and noah albicans.
== END 2022-06-25 18:30 | disposition home or self-care (01) ==
PROVIDERS: Emergency Provider Emergency Medicine; PCP Physician Assistant
DX: R42 Dizziness and giddiness (principal)
CPT/HCPCS: 99281

== ENCOUNTER 2022-06-27 12:40 | Emergency (ER) | payer MEDICAID, OTHER, SELFPAY ==
[2022-06-27 13:08] VITALS: BP 92/56; PULSE 106; RESP 18; TEMP 36.4; O2SAT 100; BMI 18.0
--- NOTE | 2022-06-27 13:34 | PC.NURSE ---
pt called from [facility] ro request a bg check. ordered and done.
[2022-06-27 14:40] VITALS: BP 123/84
[2022-06-27 14:46] VITALS: PULSE 103; O2SAT 99
--- NOTE | 2022-06-27 14:59 | ED_ITS ---
HPI - Headache <Macario Salvador PA-C - Last Filed: 06/27/22 16:25> General Chief Complaint: Headache Stated Complaint: Low BP, Dizzy, leg pain, headache Time Seen by Provider: 06/27/22 14:14 Mode of arrival: Wheelchair History of Present Illness HPI Narrative: Patient is a[age]-year-old female presents to emergency room today with complaint headache. States headache started this morning she stood on the floor getting out of bed. Describes headache as feeling like a tightening around her hip. This type of headache before but can not remember what she was treated with at that time. She is had a right now is about a 4/5 on a scale of 10 denies nausea vomiting light sensitivity changes in vision neurologic concerns. Patient also admits to being a hospice patient that we will start hospice tomorrow. States she is only taken Tylenol today for the headache. Denies any other concerns Related Data Home Medications Medication Instructions Recorded Confirmed buspirone 10 mg tablet 3 tab PO DAILY 12/08/18 06/24/22 cyclobenzaprine 10 mg tablet 10 mg PO TID PRN pain 12/08/18 06/24/22 [id number] See Rx Instructions .Route .COMPLEX 02/14/22 06/24/22 24,000-76,000-120,000 unit capsule,delayed rel (Creon) ondansetron HCl 4 mg tablet 4 mg PO TID PRN Nausea 02/14/22 06/24/22 gabapentin 400 mg capsule 800 mg PO QID 05/31/22 06/24/22 loratadine 10 mg tablet 10 mg PO DAILY PRN Allergy Symptoms 06/24/22 06/24/22 Previous Rx's Medication Instructions Recorded insulin aspart U-100 100 unit/mL 0 unit (0 mL) SUBCUT AC #3 units 02/12/18 (3 mL) subcutaneous pen (Novolog Flexpen U-100 Insulin aspart) insulin glargine 100 unit/mL (3 10 unit (0.1 mL) SUBCUT DAILY #0 mL 12/09/21 mL) subcutaneous pen acetaminophen 325 mg tablet 650 mg PO Q6HR PRN Headache #60 02/19/22 tabs melatonin 3 mg tablet 3 mg PO BEDTIME #30 tabs 02/19/22 pseudoephedrine HCl 30 mg tablet 30 mg PO Q6HR PRN Congestion/ 02/19/22 sinus headache #30 tabs ascorbic acid (vitamin C) 500 mg 500 mg PO DAILY #30 caps 06/06/22 capsule,extended release (Vitamin C) midodrine 5 mg tablet 10 mg PO TID #90 tabs 06/06/22 fentanyl 25 mcg/hr transdermal 1 patch transdermal Q72H #5 ea 06/24/22 patch lorazepam 2 mg/mL oral concentrate 1 mg (0.5 mL) PO Q1HR PRN Anxiety 06/24/22 (Lorazepam Intensol) #30 mL Allergies Allergy/AdvReac Type Severity Reaction Status Date / Time amitriptyline Allergy Intermediate Verified 06/17/22 16:16 sulfasalazine [SULFASALAZINE] Allergy Mild PANCREATITI Verified 06/17/22 16:16 S trazodone AdvReac Intermediate HEART Verified 06/17/22 16:16 PALPITATIONS Review of Systems <Macario Salvador PA-C - Last Filed: 06/27/22 16:25> Review of Systems Narrative: R.O.S.: General: No fever, chills or fatigue. Cardiovascular: No chest pain or palpitations Respiratory: No S.O.B. HEENT: No congestion, ear pain, rhinorrhea, sore throat or tinnitus Gastrointestinal: No nausea or vomiting : No urinary concerns Skin: No rash or associated abnormalities Musculoskeletal: No pain in muscles or joints, no limitation of range of motion, no paresthesia or numbness. ?? Neurological: Awake, alert and in not apparent distress. Has Headache, but no changes in vision or other related neurological concerns. Patient History <Macario Salvador PA-C - Last Filed: 06/27/22 16:25> Medical History Acute CVA (cerebrovascular accident) Alcohol intoxication Chronic atrial fibrillation with RVR Closed hip fracture COVID DKA (diabetic ketoacidoses) DKA (diabetic ketoacidosis) Fibromyalgia Gastroesophageal reflux disease Insulin dependent diabetes mellitus Lupus Osteoporosis Surgical History History of hip surgery Presence of pancreatic duct stent Family History Mother Diabetes mellitus Congestive heart failure Pancreatic cancer Father Diabetes mellitus Brother Diabetes mellitus Pancreatitis Sister Drug overdose Social History household members: family Smoking Status: Current every day smoker alcohol intake: never Smoking Status: Current every day smoker alcohol intake frequency: holidays/special occasions only Substance Use Type: does not use and heroin Exam <Macario Salvador PA-C - Last Filed: 06/27/22 16:25> Narrative Exam Narrative: Physical Exam: ? General: normal appearance, well developed, well nourished, alert, and awake. Not in acute distress. ? Head: Normocephalic, no lesions. Chest: Lungs CTAB, no rales, rhonchi or wheezes. ?? Heart: RRR, no murmurs, rubs or gallops. Eyes: Pupils sloe to respone, EOM's full, conjunctivae clear. ? Neuro: Physiological, no localizing findings, CN3-12 intact. ?? Extremities: Warm, well perfused, FROM, no deformities, no edema. ?? Skin: Normal, no rashes, no lesions noted. ?? PSYCHIATRIC: The mood is good, no blunted affect. Speech is clear. Thought process is linear, thought content is appropriate. The voice is without significant inflection. Gastrointestinal: Soft; NT; ND; Pos BS with Neg. rebound tenderness. No scars or major deformities noted on Visual Inspection. Initial Vital Signs Initial Vital Signs: Vital Signs Temperature 97.5 F L 06/27/22 13:08 Pulse Rate 106 H 06/27/22 13:08 Respiratory Rate 18 06/27/22 13:08 Blood Pressure 92/56 L 06/27/22 13:08 Pulse Oximetry 100 06/27/22 13:08 Oxygen Delivery Method 06/27/22 13:08 <Patel Mendes DO - Last Filed: 06/27/22 17:07> Initial Vital Signs Initial Vital Signs: Vital Signs Temperature 97.5 F L 06/27/22 13:08 Pulse Rate 106 H 06/27/22 13:08 Respiratory Rate 18 06/27/22 13:08 Blood Pressure 92/56 L 06/27/22 13:08 Pulse Oximetry 100 06/27/22 13:08 Oxygen Delivery Method 06/27/22 13:08 Course <Macario Salvador PA-C - Last Filed: 06/27/22 16:25> Orders Ordered: Discontinued Medications Ketorolac Tromethamine (Ketorolac 30 Mg/Ml Vial) 15 mg IM NOW ONE Stop: 06/27/22 15:32 Last Admin: 06/27/22 15:40 Dose: 15 mg Documented By: RL Vital Signs Vital signs: Vital Signs - 8 hr 06/27/22 13:08 06/27/22 14:40 06/27/22 14:46 Temperature 97.5 F L Pulse Rate 106 H 103 H Respiratory Rate 18 Blood Pressure 92/56 L 123/84 Pulse Oximetry 100 99 Oxygen Delivery Method Room Air <Patel Mendes DO - Last Filed: 06/27/22 17:07> Orders Ordered: Discontinued Medications Ketorolac Tromethamine (Ketorolac 30 Mg/Ml Vial) 15 mg IM NOW ONE Stop: 06/27/22 15:32 Last Admin: 06/27/22 15:40 Dose: 15 mg Documented By: RL Vital Signs Vital signs: Vital Signs - 8 hr 06/27/22 13:08 06/27/22 14:40 06/27/22 14:46 Temperature 97.5 F L Pulse Rate 106 H 103 H Respiratory Rate 18 Blood Pressure 92/56 L 123/84 Pulse Oximetry 100 99 Oxygen Delivery Method Room Air MDM - Headache <Macario Salvador PA-C - Last Filed: 06/27/22 16:25> Lab Data Labs: Point of Care Testing Glucose POC 82 MDM Narrative Medical decision making narrative: Patient is a 46-year-old female who presents to the emergency room today with complaint of headache that started this morning. Patient has multiple visits to the emergency room recently as Tuesday and is a hospice patient is endorsed for hospice and discharged to hospice as insurance social work related concerns. Patient states she has a niece and sister at home who will be taking care of her until she starts hospice. Toradol ordered and administered for the headache patient discharged to home. <DO Sophie Hagen Last Filed: 06/27/22 17:07> Lab Data Labs: Point of Care Testing Glucose POC 82 Discharge Plan Departure Patient Disposition: Home Clinical Impression: Acute tension headache Instructions: DI for Headache Activity Restrictions/Additional Instructions: *You have been diagnosed with headache. I have ordered some medication to help with her headache. It is a nonsteroidal anti-inflammatory. I also suggest you continue to use [id number] nonsteroidal anti-inflammatories for future headaches. [ ] *What to do: *Please continue to take your regular medications as directed. [ ] New medication prescriptions sent to your pharmacy: [ ] [ ] New medication written as a paper prescription [x] No new medications given *Please follow up with your primary care provider in 2-3 days, call for an appointment. Let them know you were seen in the Emergency Department and that we ask that you be seen in follow up. We will electronically transmit a record of today's note if your PCP is in our system *If you do not have a primary care provider please contact the [facility] Resource line at [phone]. They will ask some questions about your medical history and help get you set up with a doctor in the community. *Return to Emergency Department if you should have any new, worsening or concerning symptoms, such as [fever greater than 101 F, shaking chills, wor sening pain, persistent vomiting or other bothersome symptoms] Prescriptions: No Action insulin aspart U-100 [Novolog Flexpen U-100 Insulin] 100 unit/mL Insulin Pen 0 unit Sub-Q AC Qty: 3 0RF Rx Instructions: 1-3 UNITS TID buspirone 10 mg Tablet 3 tab PO DAILY cyclobenzaprine 10 mg Tablet 10 mg PO TID PRN (Reason: pain) insulin glargine 100 unit/mL (3 mL) insulin pen 10 unit SUBCUT DAILY Qty: 0 0RF Label Comments: Takes 10 units at night gabapentin 400 mg Capsule 800 mg PO QID midodrine 5 mg Tablet 10 mg PO TID Qty: 90 0RF ascorbic acid (vitamin C) [Vitamin C] 500 mg capsule, extended release 500 mg PO DAILY Qty: 30 0RF loratadine 10 mg tablet 10 mg PO DAILY PRN (Reason: Allergy Symptoms) lorazepam [Lorazepam Intensol] 2 mg/mL Concentrate 1 mg PO Q1HR PRN (Reason: Anxiety) Qty: 30 0RF fentanyl 25 mcg/hr patch 72 hour 1 patch transdermal Q72H Qty: 5 0RF ondansetron HCl 4 mg tablet 4 mg PO TID PRN (Reason: Nausea) Label Comments: TAKE 1 TABLET BY MOUTH THREE TIMES DAILY Creon 24,000-76,000 -120,000 unit Capsule,Delayed Release(Dr/Ec) See Rx Instructions .ROUTE .COMPLEX Rx Instructions: patient says they take 800un TID, 2400un total acetaminophen 325 mg Tablet 650 mg PO Q6HR PRN (Reason: Headache) Qty: 60 0RF melatonin 3 mg Tablet 3 mg PO BEDTIME Qty: 30 0RF pseudoephedrine HCl 30 mg Tablet 30 mg PO Q6HR PRN (Reason: Congestion/ sinus headache) Qty: 30 0RF Referrals: Jhonny Evans PA-C [Primary Care Provider] - Visit Report Forms: Patient Portal/API <Patel Mendes DO - Last Filed: 06/27/22 17:07> [facility] Dr Mendes Co-Sign Statement: I was available for consultation during this patient's emergency department visit. This chart is signed by myself for administrative purposes only. I did not have direct contact with this patient during this visit. They were seen independently by the APC.
[2022-06-27] MEDS: KETOROLAC 30 MG/ML VIAL 15 MG IM (15:40)
--- NOTE | 2022-06-29 11:17 | PC.NURSE ---
pt was admitted to hospice of the [facility] yesterday. called [phone] spoke with ruben and she directed me to fax urine cx results to them at [phone] attn medical records
== END 2022-06-27 16:32 | disposition home or self-care (01) ==
PROVIDERS: Emergency Provider Physician Assistant; PCP Physician Assistant
DX: G44.209 Tension-type headache, unspecified, not intractable (principal)
CPT/HCPCS: 82962; 96372; 99283; J1885